=== PATIENT | female | born 1955 | race Caucasian/White ===

== ENCOUNTER 2025-08-03 22:08 | Emergency (ER) | payer MEDICARE, OTHER, SELFPAY ==
--- OUTSIDE RECORDS SUMMARY | 2025-08-02 21:14 | XMS_ITS | Continuity of Care Document ---
Author Organization [facility] Address Unknown Care Team Providers Care Television Station Manager Name Role Phone ANN MARIE RHODES MD Primary Care Physician [phone] Encounter [facility] [id number] Date(s): 08/02/25 - 08/02/25 [place] [id number] Encounter Diagnosis Incidental pulmonary nodule, > 3mm and < 8mm(Discharge Diagnosis) - 08/02/25 Uterine mass(Discharge Diagnosis) - 08/02/25 Anemia(Discharge Diagnosis) - 08/02/25 Abnormal vaginal bleeding in postmenopausal patient(Discharge Diagnosis) - 08/02/25 Discharge Disposition: Home Attending Physician: Kendra Baker DO Admitting Physician: Kendra Baker DO Encounter Type: Emergency Allergies, Adverse Reactions, Alerts SubstanceCriticalitySeverityReactionReaction SeverityStatusLatexUnable to assess criticalityUnknownActive Treatment Plan Extracted from:Title:Transition of care -uterine mass *EDAuthor:Mikael Stein MD Date:08/02/25 Impression and Plan Diagnosis Abnormal vaginal bleeding in postmenopausal patient (GAH50-KN N95.0, Discharge, Medical) Anemia (INU61-CR D64.9, Discharge, Medical) Uterine mass (GZN02-GC N85.8, Discharge, Medical) Incidental pulmonary nodule, > 3mm and < 8mm (INK90-NZ R91.1, Discharge, Medical) Plan Condition: Stable. Disposition: Discharged: Time 08/02/2025 20:49:00, to home. Patient was given the following educational materials: Abnormal Uterine Bleeding, Ttlw-gz-Xhgv, Uterine Bleeding After Menopause: What It Means, Anemia, Anemia, Uterine Bleeding After Menopause: WhatIt Means, Abnormal Uterine Bleeding, Sbvf-mm-Oopi. Follow up with: ; ANN MARIE RHODES Within 1 to 2 days Reviewed discharge care instruction. Continue with therapy as outlined by Dr. Stein. Hydrate yourself adequately. Avoid straining exertion. Contact PCP and outsole cementer for follow-up within the recommended time Return to ER for any worsening symptoms especially any symptom that concerns you. . Counseled: Patient, Family, Regarding diagnosis, Regarding diagnostic results, Regarding treatment plan, Regarding prescription, Patient indicated understanding of instructions. Extracted from:Title:ED Provider NoteAuthor:Kendra Bakerate:08/02/25 Orders: dicyclomine(Bentyl), 20 mg= 2 mL, Intramuscular, Once, MAGRU, (Completed) fentaNYL, 100 mcg= 2 mL, IV Push, Once, (Completed) iohexol(Omnipaque 350 100 ml), 350 mg= 100 mL, IV Push, Once, (Completed) ondansetron, 4 mg= 2 mL, IV Push, Once, MAGRU, (Completed) Sodium Chloride 0.9% intravenous solution 1,000 mL(sodium chloride 0.9%. 1,000 mL), 1000 mL, IV, (Ordered) CT Abdomen/Pelvis w/ Contrast, 08/02/25 18:29:00 EST Stat, epigastric and ruq pain, Allow Modification Per Radiologist, Transport Mode: Cart, 08/02/25 18:29:00 EST, No, (Ordered) ECG(EKG), 08/02/25 18:25:00 EST, Dizziness, Stop Date 08/02/25 18:25:00 EST, (InProcess) Functional Status 08/02/25 ED Note - Physician Patient: OTONIEL GONZALEZ Age: 70 years Sex: FEMALE : 1955 Associated Diagnoses: Abnormal vaginal bleeding in postmenopausal patient; Anemia; Uterine mass; Incidental pulmonary nodule, > 3mm and < 8mm Author: Mikael Stein MD Basic Information Time seen: Date & time 08/02/2025 20:30:00. History source: Patient. Arrival mode: Private vehicle. History limitation: None. Additional information: Chief Complaint from Nursing Triage Note : Chief Complaint 08/02/2025 16:21 EST Chief Complaint Patient arrives by EMS with c/o vaginal bleeding that started yesterday, started as spotting but worse today. Low abdominal cramps. Dizziness with position changes. Nausea. . History of Present Illness I have assumed care of the patient from Dr. Baker, who has discussed the clinical presentation, work-up, and ED course thus far. I have reviewed the patient???s medical record and ED course and agree with all aspects of care thus far. 70-year-old female, 0 para 0, postmenopausal, presented to ER for evaluation of vaginal bleeding. Had some spotting yesterday. Had more bleeding today by movement, describes moderate amount of clots. Some suprapubic pain earlier. Had some associated nausea, lightheaded with positional changes. Not known to be anemic. No other medication except for her glaucoma. No previous abdominal surgery. Additional my care at shift change, pending CT result I had seen the patient, discussed with the patient regarding finding on diagnostic workup, with herhusband and brother at bedside Blood work shows a hemoglobin of 9. The patient had blood pressure 120/80, heart rate 80, normal respiration with pulse oximetry of 100% on room air. Suggest this is more of a chronic process. CT abdomen and pelvis results reviewed. Finding discussed with patient. 7 mm nodule at the lingula.Uterine mass, ovarian complex noted. Likely the source of her bleeding. Finding discussed with patient regarding the relevance. We discussed regarding hospitalization, transfer, discharged home. Patient feels comfortable with going home, looks to be stable Will follow-up with PCP. Follow-up with gynecology. Return to ER criteria discussed. Patient and family indicate understanding, treatment plans and follow-up Health Status Allergies: Allergic Reactions (Selected) Unknown Latex- No reactions were documented.. Medications: (Selected) Inpatient Medications Ordered sodium chloride 0.9%. 1,000 mL: 1,000 mL/hr, IV Documented Medications Documented Rocklatan 0.02%-0.005% ophthalmic solution: 0 Refill(s) Timoptic in Ocudose 0.5% preservative-free ophthalmic solution: 0 Refill(s) acetaZOLAMIDE 250 mg oral tablet: 0 Refill(s) dorzolamide 2% ophthalmic solution: 0 Refill(s) fluoride 1.1% topical paste: 1 sim, Topical, Once a day (at bedtime), do not swallow, 51 gm, 0 Refill(s). Past Medical/ Family/ Social History Medical history: No active or resolved past medical history items have been selected or recorded.. Surgical history: No active procedure history items have been selected or recorded.. Family history: No family history items have been selected or recorded.. Social history: Social & Psychosocial Habits Alcohol 08/02/2025 Alcohol Use: Never Substance Use 08/02/2025 Substance use: Never Tobacco 08/02/2025 Smoking tobacco use: Never tobacco user Electronic Cigarette/Vaping 08/02/2025 Electronic Cigarette Use: Never . Problem list: No qualifying data available . Physical Examination Vital Signs Vital Signs 08/02/2025 20:28 EST Peripheral Pulse Rate 75 bpm 08/02/2025 20:28 EST Respiratory Rate 16 br/min SpO2 99 % 08/02/2025 20:28 EST Systolic Blood Pressure 115 mmHg Diastolic Blood Pressure 63 mmHg Mean Arterial Pressure Cuff 90 mmHg 08/02/2025 20:28 EST Mean Arterial Pressure, Cuff 80 mmHg 08/02/2025 20:00 EST Heart Rate Monitored 75 bpm Respiratory Rate 18 br/min SpO2 99 % 08/02/2025 20:00 EST Peripheral Pulse Rate 75 bpm 08/02/2025 19:30 EST Peripheral Pulse Rate 83 bpm Heart Rate Monitored 82 bpm Respiratory Rate 18 br/min SpO2 98 % 08/02/2025 18:58 EST Heart Rate Monitored 74 bpm Respiratory Rate 18 br/min SpO2 99 % 08/02/2025 18:58 EST Peripheral Pulse Rate 75 bpm 08/02/2025 18:22 EST Peripheral Pulse Rate 74 bpm Respiratory Rate 18 br/min SpO2 100 % Oxygen Therapy Room air 08/02/2025 16:21 EST Temperature Oral 36.5 DegC Peripheral Pulse Rate 75 bpm Respiratory Rate 18 br/min Systolic Blood Pressure 132 mmHg HI Diastolic Blood Pressure 94 mmHg HI Mean Arterial Pressure, Cuff 107 mmHg HI SpO2 99 % Oxygen Therapy Room air . Measurements 08/02/2025 16:21 EST Height 158 cm Weight 72.57 kg Weight Dosing 72.570 kg Body Mass Index Measured 29.07 kg/m2 . Basic Oxygen Information 08/02/2025 20:28 EST SpO2 99 % 08/02/2025 20:00 EST SpO2 99 % 08/02/2025 19:30 EST SpO2 98 % 08/02/2025 18:58 EST SpO2 99 % 08/02/2025 18:22 EST SpO2 100 % Oxygen Therapy Room air 08/02/2025 16:21 EST SpO2 99 % Oxygen Therapy Room air . Impression and Plan Diagnosis Abnormal vaginal bleeding in postmenopausal patient (LHU43-WA N95.0, Discharge, Medical) Anemia (YMV78-ZP D64.9, Discharge, Medical) Uterine mass (NET17-XN N85.8, Discharge, Medical) Incidental pulmonary nodule, > 3mm and < 8mm (JGJ33-OD R91.1, Discharge, Medical) Plan Condition: Stable. Disposition: Discharged: Time 08/02/2025 20:49:00, to home. Patient was given the following educational materials: Abnormal Uterine Bleeding, Cpsg-eu-Cblb, Uterine Bleeding After Menopause: What It Means, Anemia, Anemia, Uterine Bleeding After Menopause: WhatIt Means, Abnormal Uterine Bleeding, Pytw-dv-Gqhc. Follow up with: ; ANN MARIE RHODES Within 1 to 2 days Reviewed discharge care instruction. Continue with therapy as outlined by Dr. Stein. Hydrate yourself adequately. Avoid straining exertion. Contact PCP and outsole cementer for follow-up within the recommended time Return to ER for any worsening symptoms especially any symptom that concerns you. . Counseled: Patient, Family, Regarding diagnosis, Regarding diagnostic results, Regarding treatment plan, Regarding prescription, Patient indicated understanding of instructions. 08/02/25 History of Fall in Last 3 Months MorseNoFamily Member Travel HistoryNo recent travelRecent Travel HistoryNo recent travelOther exposure to Infectious Disease No Known Exposure/Symptoms Medications acetaZOLAMIDE 250 mg oral tablet 0 Refill(s) Start Date: 08/02/25 Status: Ordered Medication Dispense Status: Completed Total Allowed Fills: 1 Fills Dispensed: 0 dorzolamide 2% ophthalmic solution 0 Refill(s) Start Date: 08/02/25 Status: Ordered Medication Dispense Status: Completed Total Allowed Fills: 1 Fills Dispensed: 0 fluoride 1.1% topical paste 1 sim, Topical, Once a day (at bedtime), Instructions: do not swallow, # 51 gm, 0 Refill(s) Start Date: 08/02/25 Status: Ordered Medication Dispense Status: Completed Quantity: 51.0 Unit: g Total Allowed Fills: 1 Fills Dispensed: 0 Rocklatan 0.02%-0.005% ophthalmic solution 0 Refill(s) Start Date: 08/02/25 Status: Ordered Medication Dispense Status: Completed Total Allowed Fills: 1 Fills Dispensed: 0 Timoptic in Ocudose 0.5% preservative-free ophthalmic solution 0 Refill(s) Start Date: 08/02/25 Status: Ordered Medication Dispense Status: Completed Total Allowed Fills: 1 Fills Dispensed: 0 Mental Status 08/02/25 Level of ConsciousnessAlert Results Laboratory List NameDateExtra Blue08/02/25Extra Red08/02/25.Auto Diff CBC w/ Auto Diff 08/02/25Comprehensive Metabolic Panel Fwrhgqgg79/6/25Lipase Level08/02/25PT/INR 08/02/25PTT110/02/24Troponin I High Loveznzjygv66/6/25 Most recent to oldest [Reference Range]:12Tube CollectedYes *NA* (08/02/25 5:21 PM)Yes *NA* (08/02/25 5:21 PM)Creatinine Level [0.60-1.30 mg/dL]0.93 mg/dL (08/02/25 5:20 PM)INR [0.91-1.11]1.08 (08/02/25 5:20 PM)Albumin Level [3.5-5.0 gm/dL]3.5 gm/dL (08/02/25 5:20 PM)Alk Phos [32-91 IU/L]53 IU/L (08/02/25 5:20 PM)Bili Total [0.3-1.2 mg/dL]0.7 mg/dL (08/02/25 5:20 PM)BUN [8-26 mg/dL]21 mg/dL (08/02/25 5:20 PM)Chloride Level [101-111 mmol/L]107 mmol/L (08/02/25 5:20 PM)CO2 [21-32 mmol/L]20 mmol/L *LOW* (08/02/25 5:20 PM)Glucose Level [74.0-118.0 mg/dL]145.0 mg/dL *HI* (08/02/25 5:20 PM)Hct [33.7-40.4 %]27.6 % *LOW* (08/02/25 5:20 PM)Hgb [11.3-15.9 gm/dL]9.0 gm/dL *LOW* (08/02/25 5:20 PM)Lipase Level [22.0-51.0 IU/L]31.0 IU/L (08/02/25 5:20 PM)MCH [24-34 pg]28 pg (08/02/25 5:20 PM)MCHC [26-37 gm/dL]33 gm/dL (08/02/25 5:20 PM)MCV [81-100 fL]85 fL (08/02/25 5:20 PM)MPV [6.3-10.2 fL]8.2 fL (08/02/25 5:20 PM)Yytgupanml693 mOsm/L *NA* (08/02/25:20 PM)Platelet [138-427 x10^3/mcL]366 x10^3/mcL (08/02/25 5:20 PM)Potassium Level [3.6-5.1 mmol/L]4.0 mmol/L (08/02/25 5:20 PM)PT [9.7-11.8 second(s)]11.4 second(s) (08/02/25 5:20 PM)PTT [25-35 second(s)]27 second(s) (08/02/25 5:20 PM)RBC [3.70-5.30 x10^6/mcL]3.23 x10^6/mcL *LOW* (08/02/25 5:20 PM)RDW [11.5-15.0 %]16.4 % *HI* (08/02/25:20 PM)Sodium Level [136.0-144.0 mmol/L]137.0 mmol/L (08/02/25 5:20 PM)Protein Total [6.5-8.1 gm/dL]7.1 gm/dL (08/02/25 5:20 PM)WBC [3.5-10.5 x10^3/mcL]16.4 x10^3/mcL1 *HI* (08/02/25 5:20 PM)Anion Gap [5.0-19.0 mmol/L]14.0 mmol/L (08/02/25 5:20 PM)Calcium Level [8.9-10.3 mg/dL]9.0 mg/dL (08/02/25 5:20 PM)ALT/SGPT [14.0-54.0 IU/L]9.0 IU/L *LOW* (08/02/25 5:20 PM)AST/SGOT [15-41 IU/L]21 IU/L (08/02/25 5:20 PM)Auto Eos % [0.9-4.0 %]0.5 % *LOW* (08/02/25 5:20 PM)Auto Lymph % [14-48 %]11 % *LOW* (08/02/25 5:20 PM)Auto Neut % [44-88 %]85 % (08/02/25 5:20 PM)Eos Abs# [0.0-0.4 x10^3/mcL]0.1 x10^3/mcL (08/02/25 5:20 PM)Lymph Abs# [1.3-2.9 x10^3/mcL]1.9 x10^3/mcL (08/02/25 5:20 PM)[place] Abs# [0.0-0.8 x10^3/mcL]0.4 x10^3/mcL (08/02/25 5:20 PM)Auto Baso % [0.2-2.0 %]0.7 % (08/02/25 5:20 PM)Auto [place] % [1-12 %]2 % (08/02/25 5:20 PM)Baso Abs# [0.0-0.2 x10^3/mcL]0.1 x10^3/mcL (08/02/25 5:20 PM)Neut Abs# [1.5-9.2 x10^3/mcL]14.0 x10^3/mcL *HI* (08/02/25 5:20 PM)BUN/Creat Ratio [4.6-16.2]22.5 *HI* (08/02/25 5:20 PM)Globulin [1.5-4.3 gm/dL]3.6 gm/dL (08/02/25 5:20 PM)A/G Ratio [1.4-2.6]0.9 *LOW* (08/02/25 5:20 PM)Troponin I High Sensitivity [<=15.0 pg/mL]5.2 pg/mL (08/02/25 5:20 PM)eGFR AA>60 mL/min/1.73m2 *NA* (08/02/25 5:20 PM)eGFR Non AA60 mL/min/1.73m2 *NA* (08/02/25 5:20 PM) 1Result Comment: Slide Reviewed Radiology Reports * Exam Date TimeProcedurePerforming NxqhvbzbSpxydl77/6/25 7:19 PMCT Abdomen/Pelvis w/ ContrastAuth (Verified) Notes: (CT Abdomen/Pelvis w/ Contrast) Reason For Exam: epigastric and ruq pain REPORT EXAMINATION: CT Abdomen/Pelvis w/ Contrast INDICATION: epigastric and ruq pain TECHNIQUE: CT imaging of the abdomen and pelvis. Axial and reformatted coronal and sagittal CT images are reviewed. Amount and type of contrast administered as documented in the patient's chart/medical record. This exam was performed according to our departmental dose-optimization program which includes automated exposure control, adjustment of the mA and/or kV according to patient size and/or use of iterative reconstruction technique. COMPARISON: None. FINDINGS: CARDIOVASCULAR: The visualized heart and pericardium demonstrate no acute abnormality. The aorta and branch vessels are patent and normal in caliber. LUNG BASES: There are no focal consolidations or pleural effusions. 7 mm pulmonary nodule noted in the lingula. HEPATOBILIARY: There is diffuse fatty infiltration of the liver. There are no focal hepatic lesions. There is no biliary ductal dilatation. The gallbladder is unremarkable. SPLEEN: Unremarkable. PANCREAS: Unremarkable ADRENAL GLANDS: Unremarkable. KIDNEYS: Kidneys are normal in size and contour and demonstrate symmetric enhancement. There is no hydronephrosis. ABDOMINAL NODES: No adenopathy is appreciated. PELVIC ORGANS: The urinary bladder is unremarkable. There is a complex uterine mass measuring measuring 9.6 x 5.8 x 5.2 cm. There is a 3.5 x 3.1 cm mass/lymph node in the right hemipelvis. PERITONEUM/MESENTERY/BOWEL: Moderate hiatal hernia.. There is no bowel obstruction. There is no bowel wall thickening. The appendix is normal. Diverticulosis without evidence of diverticulitis. BONES/SOFT TISSUES: There is no acute osseous or soft tissue abnormality. IMPRESSION: Complex uterine mass concerning for malignancy. Mass/enlarged lymph node noted in the right hemipelvis concerning for metastatic disease. 7 mm pulmonary nodule noted in the lingula. Metastatic disease cannot be excluded. Recommend gynecologic consultation and recommend further evaluation with pelvic MRI. PET/CT may also be obtained. Final Dictated by: Cuco Rivas MD Dictated DT/TM: 08/02/25 8:22 Signed (Electronic Signature): Cuco Rivas MD 08/02/25 8:27 pm Technologist: LT CHAPITO * Exam Date TimeProcedurePerforming CxdwhabdZmbcxk44/6/25 6:23 PMUS Pelvis Non- OB LimitedAuth (Verified) Notes: (US Pelvis Non-OB Limited) Reason For Exam: Pelvic Pain REPORT EXAM: US Pelvis Non-OB Limited HISTORY: Pelvic Pain COMPARISON: None. TECHNIQUE: Transabdominal imaging of the pelvis was performed FINDINGS: Uterus measures 1.6 x 5.8 x 5.5 cm and is heterogeneous. Endometrial stripe is not discernible. Right ovary is not visualized. Left ovary measures 3.6 x 2.9 x 3.3 cm. There is normal arterial and venous flow left ovary. IMPRESSION: Heterogeneous enlarged uterus, likely fibromatous. Endometrial stripe not identified. Final Dictated by: Cat Fields MD Dictated DT/TM: 08/02/25 6:49 Signed (Electronic Signature): Cat Fields MD 08/02/25 6:52 pm Technologist: MACRINA Vital Signs Most recent to oldest [Reference Range]:[id number] cm (08/02/25 4:21 PM)Ydhhjd25.57 kg (08/02/25 4:21 PM)Weight Xvowqq61.570 kg (08/02/25 4:21 PM)Body Mass Index Wwshwdge83.07 kg/m2 (08/02/25 4:21 PM)Temperature Oral [35.8-37.3 DegC]36.5 DegC (08/02/25 4:21 PM)Peripheral Pulse Rate [60-100 bpm]75 bpm (08/02/25 8:28 PM)75 bpm (08/02/25 8:00 PM)83 bpm (08/02/25 7:30 PM)Heart Rate Monitored [60-100 bpm]75 bpm (08/02/25 8:00 PM)82 bpm (08/02/25 7:30 PM)74 bpm (08/02/25 6:58 PM)Respiratory Rate [14-20 br/min]16 br/min (08/02/25 8:28 PM)18 br/min (08/02/25 8:00 PM)18 br/min (08/02/25 7:30 PM)Blood Pressure [90-120/60-80 mmHg]115/63mmHg (08/02/25 8:28 PM)132/94mmHg *HI* (08/02/25 4:21 PM)Mean Arterial Pressure, Cuff [65-100 mmHg]80 mmHg (08/02/25 8:28 PM)107 mmHg *HI* (08/02/25 4:21 PM)Mean Arterial Pressure Cuff90 mmHg (08/02/25 8:28 PM)SpO2 [92-100 %]99 % (08/02/25 8:28 PM)99 % (08/02/25 8:00 PM)98 % (08/02/25 7:30 PM)Oxygen TherapyRoom air (08/02/25 6:22 PM)Room air (08/02/25 4:21 PM) Social History Social History TypeResponseTobaccoNever tobacco user Tobacco Use:. Sex FemaleSex RepresentationFemale (finding) Hospital Discharge Instructions Patient Education 08/02/2025 19:49:38 Anemia Anemia Anemia is a condition in which there are not enough red blood cells or hemoglobin in the blood. Hemoglobin is a substance in red blood cells that carries oxygen. When you do not have enough red blood cells or hemoglobin (are anemic), your body cannot get enoughoxygen, and your organs may not work properly. As a result, you may feel very tired or have other problems. What are the causes? Common causes of anemia include: ??? Excessive bleeding. Anemia can be caused by excessive bleeding inside or outside the body, including bleeding from the intestines or from heavy menstrual periods in females. ??? Poor nutrition. ??? Long-lasting (chronic) kidney, thyroid, and liver disease. ??? Bone marrow disorders, spleen problems, and blood disorders. ??? Cancer and treatments for cancer. ??? Human immunodeficiency virus (HIV) and acquired immunodeficiency syndrome (AIDS). ??? Infections, medicines, and autoimmune disorders that destroy red blood cells. What are the signs or symptoms? Symptoms of this condition include: ??? Minor weakness. ??? Dizziness. ??? Headache, or difficulties concentrating and sleeping. ??? Heartbeats that feel irregular or faster than normal (palpitations). ??? Shortness of breath, especially with exercise. ??? Pale skin, lips, and nails, or cold hands and feet. ??? Upset stomach (indigestion) and nausea. Symptoms may occur suddenly or develop slowly. If your anemia is mild, you may not have symptoms. How is this diagnosed? This condition is diagnosed based on blood tests, your medical history, and a physical exam. In some cases, a test may be needed in which cells are removed from the soft tissue inside of a bone and looked at under a microscope (bone marrow biopsy). Your health care provider may also check your stool (feces) for blood and may do more testing to look for the cause of your bleeding. Other tests may include: ??? Imaging tests, such as a CT scan or MRI. ??? A procedure to see inside your esophagus and stomach (endoscopy). The esophagus is the part of the body that moves food from your mouth to your stomach. ??? A procedure to see inside your colon and rectum (colonoscopy). How is this treated? Treatment for this condition depends on the cause. If you continue to lose a lot of blood, you may need to be treated at a hospital. Treatment may include: ??? Taking supplements of iron, vitamin B12, or folic acid. ??? Taking a hormone medicine (erythropoietin) that can help to stimulate red blood cell growth. ??? Receiving donated blood through an IV (blood transfusion). This may be needed if you lose a lotof blood. ??? Making changes to your diet. ??? Having surgery to remove your spleen. Follow these instructions at home: ??? Take mmxk-fft-jpqbdwp and prescription medicines only as told by your health care provider. ??? Take supplements only as told by your health care provider. ??? Follow any diet instructions that you were given by your health care provider. ??? Keep all follow-up visits. Your health care provider will want to recheck your blood tests. Contact a health care provider if: ??? You develop new bleeding anywhere in the body. ??? You are very weak. Get help right away if: ??? You are short of breath. ??? You have pain in your abdomen or chest. ??? You are dizzy or feel faint. ??? You have trouble concentrating. ??? You have bloody stools, black stools, or tarry stools. ??? You vomit repeatedly or you vomit up blood. These symptoms may be an emergency. Get help right away. Call 911. ??? Do not wait to see if the symptoms will go away. ??? Do not drive yourself to the hospital. Summary ??? Anemia is a condition in which you do not have enough red blood cells or enough of a substance in your red blood cells that carries oxygen. ??? Symptoms may occur suddenly or develop slowly. ??? If your anemia is mild, you may not have symptoms. ??? This condition is diagnosed with blood tests, a medical history, and a physical exam. Other tests may be needed. ??? Treatment for this condition depends on the cause of the anemia. This information is not intended to replace advice given to you by your health care provider. Make sure you discuss any questions you have with your health care provider. Document Revised: 12/07/2022 Document Reviewed: 12/07/2022 [employer] Patient Education ?? 2024 [employer]. 08/02/2025 19:49:38 Uterine Bleeding After Menopause: What It Means Uterine Bleeding After Menopause: What It Means Menopause is the end of a female's fertile years. After menopause, your ovaries can no longer release an egg. You'll no longer be able to get , and you'll no longer get a period. Any type of bleeding after menopause should be checked by a health care provider, as this is not normal. Treatment will depend on the cause of the bleeding. What can cause bleeding after menopause? Your provider may do tests to find out why you're bleeding. You may have bleeding if: ??? You take hormones to treat the symptoms of menopause. ??? The lining of your uterus thins as a result of low estrogen. ??? The lining of your uterus thickens as a result of too much estrogen. ??? You have cancer in the uterus. ??? You have growths in the uterus, such as: ??? Polyps. ??? Fibroids. Follow these instructions at home: ??? Pay attention to any changes in your symptoms. Let your provider know about them. ??? If told by your provider: ??? Avoid using tampons and douches. ??? Get regular pelvic exams, including Pap tests. ??? Take iron supplements. ??? Change your pads regularly. ??? Take your medicines only as told. Contact a health care provider if: ??? You have pain in your belly. ??? You have headaches. ??? You have a fever or chills. ??? You feel faint or dizzy. Get help right away if: ??? You pass large blood clots. ??? You have heavy bleeding that needs more than 1 pad an hour and you've never had this before. This information is not intended to replace advice given to you by your health care provider. Make sure you discuss any questions you have with your health care provider. Document Revised: 07/25/2024 Document Reviewed: 05/22/2024 [employer] Patient Education ?? 2024 [employer]. 08/02/2025 19:49:38 Abnormal Uterine Bleeding, Crbt-kh-Qcmv Abnormal Uterine Bleeding Abnormal uterine bleeding means bleeding more than normal from your womb (uterus). It can include: ??? Bleeding after sex. ??? Bleeding between monthly (menstrual) periods. ??? Bleeding that is heavier than normal. ??? Monthly periods that last longer than normal. ??? Bleeding after you have stopped having your monthly period (menopause). You should see a doctor for any kind of bleeding that is not normal. Treatment depends on the causeof your bleeding and how much you bleed. Follow these instructions at home: Medicines ??? Take gcvo-ypp-zdenrpo and prescription medicines only as told by your doctor. ??? Ask your doctor about: ??? Taking medicines such as aspirin and ibuprofen. Do not take these medicines unless your doctor tells you to take them. ??? Taking whgf-unz-lstqkdx medicines, vitamins, herbs, and supplements. ??? You may be given iron pills. Take them as told by your doctor. Managing constipation If you take iron pills, you may need to take these actions to prevent or treat trouble pooping (constipation): ??? Drink enough fluid to keep your pee (urine) pale yellow. ??? Take ecvb-fco-kvnpqaq or prescription medicines. ??? Eat foods that are high in fiber. These include beans, whole grains, and fresh fruits and vegetables. ??? Limit foods that are high in fat and sugar. These include fried or sweet foods. Activity Change your activity to decrease bleeding if you need to change your sanitary pad more than one time every 2 hours: ??? Lie in bed with your feet raised (elevated). ??? Place a cold pack on your lower belly. ??? Rest as much as you are able until the bleeding stops or slows down. General instructions ??? Do not use tampons, douche, or have sex until your doctor says these things are okay. ??? Change your pads often. ??? Get regular exams. These include: ??? Pelvic exams. ??? Screenings for cancer of the cervix. ??? It is up to you to get the results of any tests that are done. Ask how to get your results whenthey are ready. ??? Watch for any changes in your bleeding. For 2 months, write down: ??? When your monthly period starts. ??? When your monthly period ends. ??? When you get any abnormal bleeding from your vagina. ??? What problems you notice. ??? Keep all follow-up visits. Contact a doctor if: ??? The bleeding lasts more than one week. ??? You feel dizzy at times. ??? You feel like you may vomit (nausea). ??? You vomit. ??? You feel light-headed or weak. ??? Your symptoms get worse. Get help right away if: ??? You faint. ??? You have to change pads every hour. ??? You have pain in your belly. ??? You have a fever or chills. ??? You get sweaty or weak. ??? You pass large blood clots from your vagina. These symptoms may be an emergency. Get help right away. Call your local emergency services ([address] [place] ??? Do not wait to see if the symptoms will go away. ??? Do not drive yourself to the hospital. Summary ??? Abnormal uterine bleeding means bleeding more than normal from your womb (uterus). ??? Any kind of bleeding that is not normal should be checked by a doctor. ??? Treatment depends on the cause of your bleeding and how much you bleed. ??? Get help right away if you faint, you have to change pads every hour, or you pass large blood clots from your vagina. This information is not intended to replace advice given to you by your health care provider. Make sure you discuss any questions you have with your health care provider. Document Revised: 01/13/2022 Document Reviewed: 01/13/2022 [employer] Patient Education ?? 2024 [employer] Follow Up Care 08/02/2025 16:18:46 With:ANN MARIE RHODES Address: [address] [place] [address] [facility] (1) When:1 to 2 days Comments:Reviewed discharge care instruction.Continue with therapy as outlined by Dr. Stein.Hydrate yourself adequately.Avoid straining exertion.Contact PCP and outsole cementer for follow-up within the recommended timeReturn to ER for any worsening symptoms especially any symptom that concerns you. Physician Emergency department Note * Mikael Stein MD: MODIFY, SIGN, VERIFY, PERFORM Event Display: ED Note - Physician Authored Date: Patient: OTONIEL GONZALEZ Age: 70 years Sex: FEMALE : 1955 Associated Diagnoses: Abnormal vaginal bleeding in postmenopausal patient; Anemia; Uterine mass; Incidental pulmonary nodule, > 3mm and < 8mm Author: Mikael Stein MD Basic Information Time seen: Date & time 08/02/2025 20:30:00. History source: Patient. Arrival mode: Private vehicle. History limitation: None. Additional information: Chief Complaint from Nursing Triage Note : Chief Complaint 08/02/2025 16:21 EST Chief Complaint Patient arrives by EMS with c/o vaginal bleeding that started yesterday, started as spotting but worse today. Low abdominal cramps. Dizziness with position changes. Nausea. . History of Present Illness I have assumed care of the patient from Dr. Baker, who has discussed the clinical presentation, work-up, and ED course thus far. I have reviewed the patient???s medical record and ED course and agree with all aspects of care thus far. 70-year-old female, 0 para 0, postmenopausal, presented to ER for evaluation of vaginal bleeding. Had some spotting yesterday. Had more bleeding today by movement, describes moderate amount of clots. Some suprapubic pain earlier. Had some associated nausea, lightheaded with positional changes. Not known to be anemic. No other medication except for her glaucoma. No previous abdominal surgery. Additional my care at shift change, pending CT result I had seen the patient, discussed with the patient regarding finding on diagnostic workup, with herhusband and brother at bedside Blood work shows a hemoglobin of 9. The patient had blood pressure 120/80, heart rate 80, normal respiration with pulse oximetry of 100% on room air. Suggest this is more of a chronic process. CT abdomen and pelvis results reviewed. Finding discussed with patient. 7 mm nodule at the lingula.Uterine mass, ovarian complex noted. Likely the source of her bleeding. Finding discussed with patient regarding the relevance. We discussed regarding hospitalization, transfer, discharged home. Patient feels comfortable with going home, looks to be stable Will follow-up with PCP. Follow-up with gynecology. Return to ER criteria discussed. Patient and family indicate understanding, treatment plans and follow-up Health Status Allergies: Allergic Reactions (Selected) Unknown Latex- No reactions were documented.. Medications: (Selected) Inpatient Medications Ordered sodium chloride 0.9%. 1,000 mL: 1,000 mL/hr, IV Documented Medications Documented Rocklatan 0.02%-0.005% ophthalmic solution: 0 Refill(s) Timoptic in Ocudose 0.5% preservative-free ophthalmic solution: 0 Refill(s) acetaZOLAMIDE 250 mg oral tablet: 0 Refill(s) dorzolamide 2% ophthalmic solution: 0 Refill(s) fluoride 1.1% topical paste: 1 sim, Topical, Once a day (at bedtime), do not swallow, 51 gm, 0 Refill(s). Past Medical/ Family/ Social History Medical history: No active or resolved past medical history items have been selected or recorded.. Surgical history: No active procedure history items have been selected or recorded.. Family history: No family history items have been selected or recorded.. Social history: Social & Psychosocial Habits Alcohol 08/02/2025 Alcohol Use: Never Substance Use 08/02/2025 Substance use: Never Tobacco 08/02/2025 Smoking tobacco use: Never tobacco user Electronic Cigarette/Vaping 08/02/2025 Electronic Cigarette Use: Never . Problem list: No qualifying data available . Physical Examination Vital Signs Vital Signs 08/02/2025 20:28 EST Peripheral Pulse Rate 75 bpm 08/02/2025 20:28 EST Respiratory Rate 16 br/min SpO2 99 % 08/02/2025 20:28 EST Systolic Blood Pressure 115 mmHg Diastolic Blood Pressure 63 mmHg Mean Arterial Pressure Cuff 90 mmHg 08/02/2025 20:28 EST Mean Arterial Pressure, Cuff 80 mmHg 08/02/2025 20:00 EST Heart Rate Monitored 75 bpm Respiratory Rate 18 br/min SpO2 99 % 08/02/2025 20:00 EST Peripheral Pulse Rate 75 bpm 08/02/2025 19:30 EST Peripheral Pulse Rate 83 bpm Heart Rate Monitored 82 bpm Respiratory Rate 18 br/min SpO2 98 % 08/02/2025 18:58 EST Heart Rate Monitored 74 bpm Respiratory Rate 18 br/min SpO2 99 % 08/02/2025 18:58 EST Peripheral Pulse Rate 75 bpm 08/02/2025 18:22 EST Peripheral Pulse Rate 74 bpm Respiratory Rate 18 br/min SpO2 100 % Oxygen Therapy Room air 08/02/2025 16:21 EST Temperature Oral 36.5 DegC Peripheral Pulse Rate 75 bpm Respiratory Rate 18 br/min Systolic Blood Pressure 132 mmHg HI Diastolic Blood Pressure 94 mmHg HI Mean Arterial Pressure, Cuff 107 mmHg HI SpO2 99 % Oxygen Therapy Room air . Measurements 08/02/2025 16:21 EST Height 158 cm Weight 72.57 kg Weight Dosing 72.570 kg Body Mass Index Measured 29.07 kg/m2 . Basic Oxygen Information 08/02/2025 20:28 EST SpO2 99 % 08/02/2025 20:00 EST SpO2 99 % 08/02/2025 19:30 EST SpO2 98 % 08/02/2025 18:58 EST SpO2 99 % 08/02/2025 18:22 EST SpO2 100 % Oxygen Therapy Room air 08/02/2025 16:21 EST SpO2 99 % Oxygen Therapy Room air . Impression and Plan Diagnosis Abnormal vaginal bleeding in postmenopausal patient ([id number]-EH N95.0, Discharge, Medical) Anemia (VQD11-SH D64.9, Discharge, Medical) Uterine mass (DVM18-CV N85.8, Discharge, Medical) Incidental pulmonary nodule, > 3mm and < 8mm (NXO17-XG R91.1, Discharge, Medical) Plan Condition: Stable. Disposition: Discharged: Time 08/02/2025 20:49:00, to home. Patient was given the following educational materials: Abnormal Uterine Bleeding, Xdmk-jk-[id number], Uterine Bleeding After Menopause: What It Means, Anemia, Anemia, Uterine Bleeding After Menopause: WhatIt Means, Abnormal Uterine Bleeding, Pnlu-mv-Kjqs. Follow up with: ; ANN MARIE RHODES Within 1 to 2 days Reviewed discharge care instruction. Continue with therapy as outlined by Dr. Stein. Hydrate yourself adequately. Avoid straining exertion. Contact PCP and outsole cementer for follow-up within the recommended time Return to ER for any worsening symptoms especially any symptom that concerns you. . Counseled: Patient, Family, Regarding diagnosis, Regarding diagnostic results, Regarding treatment plan, Regarding prescription, Patient indicated understanding of instructions. [Electronically Signed on: 08/02/2025 20:56 EST] Mikael Stein MD [Verified on: 08/02/2025 20:56 EST] Mikael Stein MD * Kendra Baker DO: PERFORM Event Display: ED Note - Physician Authored Date: [id number] OTONIEL GONZALEZ :1955 Age:70 years Sex:FEMALE Registration Date:08/02/2025 Primary Care Physician: Haresh Lucero Basic Information Time Seen: Kendra Baker DO ??08/02/2025 16:55 Chief Complaint Patient arrives by EMS with c/o vaginal bleeding that started yesterday, started as spotting but worse today. Low abdominal cramps. Dizziness with position changes. Nausea. History Of Present Illness: 70 years old female presenting to the ED with a history of??vaginal bleeding. ??Patient states thatshe went to the bathroom when she started having some vaginal bleeding with some??blood clots and the bleeding.?? Patient's last menstrual period was about 8 years ago.?? Patient started having thesevaginal bleeding today associated with lower abdominal cramping.?? Patient also started having lightheadedness and had to come to the ED for evaluation. ?? Patient is not on anticoagulants. ??No history of coagulopathy.?? Patient denies any??chest pain,??palpitations,??headache,??or shortness of breath.?? No prior history of similar symptoms. Review of Systems: General: [Alert, oriented, no acute distress] Constitutional: [No fevers, chills, sweats] Eye: [No recent visual problems] ENT: [No ear pain, nasal congestion, sore throat] Neck: [no pain or stiffness] Respiratory: [No shortness of breath, cough] Cardiovascular: [No Chest pain, palpitations, syncope] Gastrointestinal: [No nausea, vomiting, diarrhea] Genitourinary: [+]??Vaginal bleeding] Lamonte/Lymph: [Negative for bruising tendency, swollen lymph glands] Endocrine: [Negative for excessive thirst, excessive hunger] Musculoskeletal: [No back pain, neck pain, joint pain, muscle pain, decreased range of motion] Integumentary: [No rash, pruritus, abrasions] Neurologic: [Alert & oriented X 4] Psychiatric: [No anxiety, depression] Physical Exam Vitals & Measurements T:??36.5?C??(Oral)?? HR:??74??(Monitored)?? RR:??18?? BP:??132/94?? SpO2:??99%?? HT:??158??cm?? WT:??72.57??kg?? BMI:??29.07?? Pain Score:??5?? O2 Therapy:??Room air?? General Acutely ill looking, in moderate painful distress Head/eye - NCAAT, no periorbital ecchymosis, conjunctival erythema, eye discharge, or blood in the anterior chamber. No scleral icterus ENT -No nose-bleeding, TMI, no ear discharge, no mastoid ecchymosis Neck -supple, no swelling, do lymphadenopathy, no JVD or bruits. trachea is central. no crepitus Chest -No deformities, crackles, or paradoxical breathing movements Resp-No wheezing, rales, rhonchi, or abnormal BS CVS -S1/S2 normal. No MRG, distal pulses intact and unremarkable Abdomen [+]??Moderate??tenderness. -Non distended no organomegaly, no visible pulsations or peristalsis. No rigidity, guarding or rebound. No Sweeney's, McBurney's, or Rovsing's sign Back -No CVA tenderness, spinal deformity or tenderness. ?? Ext -No deformity, tenderness, joint swelling, warmth, erythema. No crepitus. distal pulses intact. No sensory or motor deficits Neuro -No facial droops, hand drift, slurred speech, focal weakness or sensory deficits. CN 2-12 grossly intact. Reflexes intact.?? Skin -No rashes, cyanosis, discoloration,?? Medical Decision Makin-year-old female presenting to the ED with a history of vaginal??bleeding??associated with lightheadedness.?? Last menstrual period was 8 years ago. ?? Physical examination significant for an acutely ill looking female in moderate painful distress. ??Abdominal examination??significant for mild to moderate tenderness but no obvious rigidity/rebound/guarding. ?? Patient is scheduled for??pelvic ultrasound, pain medications,??IV fluid,??and laboratory evaluations.?? An EKG was done which is unremarkable for any significant ischemic concerns. ?? 6:30 PM Patient declined transvaginal ultrasound. ??Pelvic ultrasound was done.?? Patient still complainingof pain at this point and is given??IV fentanyl with??Zofran.?? Patient is also scheduled for CT scan of the abdomen and pelvis ?? 7:00 PM Patient care signed out to the nighttime physician. Critical Care Time Spent Critical care time for this patient in this encounter is 40??minutes. This includes, but is not limited to, time for continuous monitoring, including bedside monitoring, evaluations and frequent evaluations, as well as consults and discussions with family and other health care providers Assessment/Plan Orders: dicyclomine(Bentyl), 20 mg= 2 mL, Intramuscular, Once, MAGRU, (Completed) fentaNYL, 100 mcg= 2 mL, IV Push, Once, (Completed) iohexol(Omnipaque 350 100 ml), 350 mg= 100 mL, IV Push, Once, (Completed) ondansetron, 4 mg= 2 mL, IV Push, Once, YOLANDA, (Completed) Sodium Chloride 0.9% intravenous solution 1,000 mL(sodium chloride 0.9%. 1,000 mL), 1000 mL, IV, (Ordered) CT Abdomen/Pelvis w/ Contrast, 08/02/25 18:29:00 EST Stat, epigastric and ruq pain, Allow Modification Per Radiologist, Transport Mode: Cart, 08/02/25 18:29:00 EST, No, (Ordered) ECG(EKG), 08/02/25 18:25:00 EST, Dizziness, Stop Date 08/02/25 18:25:00 EST, (InProcess) Medication Reconciliation Unchanged acetaZOLAMIDE (acetaZOLAMIDE 250 mg oral tablet) ?? dorzolamide ophthalmic (dorzolamide 2% ophthalmic solution) ?? fluoride topical (fluoride 1.1% topical paste)1 sim Topical (on the skin) once a day (at bedtime). do not swallow. ?? latanoprost-netarsudil ophthalmic (Rocklatan 0.02%-0.005% ophthalmic solution) ?? timolol ophthalmic (Timoptic in Ocudose 0.5% preservative-free ophthalmic solution) Medication Administration Given Sodium Chloride 0.9% intravenous solution 1,000 mL(sodium chloride 0.9%. 1,000 mL), IV dicyclomine(Bentyl), Intramuscular fentaNYL, IV Push iohexol(Omnipaque 350 100 ml), IV Push ondansetron, IV Push Allergies Latex (Unknown) Social History Alcohol Alcohol Use:Never Electronic Cigarette/Vaping Electronic Cigarette Use:Never Substance Use Substance use:Never Tobacco Smoking tobacco use:Never tobacco user Diagnostic Results US Pelvis Non-OB Limited 08/02/2025 18:55 EST US Pelvis Non-OB Limited ?? 08/02/25 18:52:59 IMPRESSION: ?? Heterogeneous enlarged uterus, likely fibromatous. Endometrial stripe not identified. ?? Signed By: Cat Fields MD ECG Normal sinus rhythm,??LAD, right ventricular??conduction delay Ventricular rate 70 IL interval 152 QRS duration 88 QT/QTc 419/440 No STEMI EKG interpreted by me pending evaluation by the performing artist Lab Results Routine Chemistry?? LATEST RESULTS?? Sodium Level?? 08/02/25 17:20?? 137.0?? Potassium Level?? 08/02/25 17:20?? 4.0?? Chloride Level?? 08/02/25 17:20?? 107?? CO2?? 08/02/25 17:20?? 20 ??Low?? Anion Gap?? 08/02/25 17:20?? 14.0?? Glucose Level?? 08/02/25 17:20?? 145.0 ??High?? BUN?? 08/02/25 17:20?? 21?? Creatinine Level?? 08/02/25 17:20?? 0.93?? BUN/Creat Ratio?? 08/02/25 17:20?? 22.5 ??High?? eGFR AA?? 08/02/25 17:20?? >60 eGFR Non AA?? 08/02/25 17:20?? 60?? Calcium Level?? 08/02/25 17:20?? 9.0?? Bili Total?? 08/02/25 17:20?? 0.7?? Alk Phos?? 08/02/25 17:20?? 53?? AST/SGOT?? 08/02/25 17:20?? 21?? ALT/SGPT?? 08/02/25 17:20?? 9.0 ??Low?? Protein Total?? 08/02/25 17:20?? 7.1?? Albumin Level?? 08/02/25 17:20?? 3.5?? Globulin?? 08/02/25 17:20?? 3.6?? A/G Ratio?? 08/02/25 17:20?? 0.9 ??Low?? Lipase Level?? 08/02/25 17:20?? 31.0?? Osmolality?? 08/02/25 17:20?? 279? Cardiac Isoenzymes?? LATEST RESULTS?? Troponin I High Sensitivity?? 08/02/25 17:20?? 5.2? CBC?? LATEST RESULTS?? WBC?? 08/02/25 17:20?? 16.4 ??High?? RBC?? 08/02/25 17:20?? 3.23 ??Low?? Hgb?? 08/02/25 17:20?? 9.0 ??Low?? Hct?? 08/02/25 17:20?? 27.6 ??Low?? MCV?? 08/02/25 17:20?? 85?? MCH?? 08/02/25 17:20?? 28?? MCHC?? 08/02/25 17:20?? 33?? RDW?? 08/02/25 17:20?? 16.4 ??High?? Platelet?? 08/02/25 17:20?? 366?? MPV?? 08/02/25 17:20?? 8.2? Differential?? LATEST RESULTS?? Auto Neut %?? 08/02/25 17:20?? 85?? Auto Lymph %?? 08/02/25 17:20?? 11 ??Low?? Auto [place] %?? 08/02/25 17:20?? 2?? Auto Eos %?? 08/02/25 17:20?? 0.5 ??Low?? Auto Baso %?? 08/02/25 17:20?? 0.7?? Neut Abs#?? 08/02/25 17:20?? 14.0 ??High?? Lymph Abs#?? 08/02/25 17:20?? 1.9?? [place] Abs#?? 08/02/25 17:20?? 0.4?? Eos Abs#?? 08/02/25 17:20?? 0.1?? Baso Abs#?? 08/02/25 17:20?? 0.1? Coagulation?? LATEST RESULTS?? PT?? 08/02/25 17:20?? 11.4?? INR?? 08/02/25 17:20?? 1.08?? PTT?? 08/02/25 17:20?? 27? Misc Lab Order?? LATEST RESULTS?? Tube Collected?? 08/02/25 17:21?? Yes? [Electronically Signed on: 08/02/2025 19:16 EST] MarquiskhoaKendra DO [Verified on: 08/02/2025 19:16 EST] Kendra Baker DO Patient Care team information Care Team Personnel Name: CARMELO HERNÁNDEZ, ANN MARIE Moreira Position: [facility] Physician Acute/ED/Clinic/Care Member Role: Primary Care Physician [address]: [address] [place] [address] Telecom: Care Team Related Persons Name: ATUL CHATMAN Name: ASAD GONZALEZORD Insurance Providers Guarantor name: OTONIEL GONZALEZ [facility] Information #: 1 Payer: [facility] Payer Identifier: CATHI Member Number: [id number] Group Number: [id number] Subscriber Identifier: [id number] Relationship to Subscriber: spouse Coverage Type: [employer]IVATE [employer] INSURANCE Coverage Verification Date: 25 Telecom: [phone] Address: [address] [address]
[2025-08-03] VITALS (11 sets, daily range): BP systolic 114–133; BP diastolic 58–96; PULSE 64–76; TEMP 36.6; O2SAT 99–100; BMI 28.3
--- NOTE | 2025-08-03 22:11 | ED.FEMALEGU1 ---
HPI - Female Genitourinary General Chief complaint: Vaginal Bleeding Stated complaint: Vaginal bleeding Time Seen by Provider: 08/03/25 22:11 History of Present Illness HPI Narrative: seen at [facility] yesterday for vaginal bleed. Bleeding started again about an hour ago. Has gone thru several pads. complains of abdominal cramping Related Data Home Medications ?Medication ?Instructions ?Recorded ?Confirmed acetazolamide 250 mg tablet 250 mg PO Q12H 08/03/25 08/03/25 dorzolamide 2 % eye drops 1 drp ophthalmic (eye) TID 08/03/25 08/03/25 fluoride topical topical 08/03/25 netarsudil 0.02 %-latanoprost 1 drp ophthalmic (eye) QPM 08/03/25 08/03/25 0.005 % eye drops (Rocklatan) timolol 0.5 % eye drops 1 drp ophthalmic (eye) BID 08/03/25 08/03/25 Allergies Allergy/AdvReac Type Severity Reaction Status Date / Time furosemide (From Lasix) Allergy Mild hives Verified 08/03/25 22:12 Review of Systems ROS Status of ROS 10 or more systems reviewed and unremarkable except as noted in history and below PFSH PFSH Social History Little interest or pleasure in doing things: not at all Feeling down, depressed, or hopeless: not at all Exam Constitutional Vital Signs, click to edit/add: Last Vital Signs Temp 97.9 F 08/03/25 22:12 Pulse 75 08/03/25 23:40 Resp 14 08/03/25 23:40 BP 121/58 08/03/25 23:30 Pulse Ox 100 08/03/25 23:40 O2 Del Method Room Air 08/03/25 22:12 Common normals: average body habitus, oriented x3, alert and well nourished [facility] Common normals: normocephalic and head/scalp atraumatic Eye Common normals: PERRL and EOMs intact bilaterally Respiratory Common normals: normal respiratory effort, no retractions, no use of accessory muscles and clear to auscultation bilaterally Cardio Common normals: regular rate, regular rhythm, S1 normal heart sound and S2 normal heart sound GI Common normals: Normal to inspection, nondistended, normoactive bowel sounds present, soft to palpation and non-tender Extremity Common normals: normal to inspection and full ROM Neuro Common normals: oriented x3, CN's II-XII intact bilaterally and moves all extremities Psych Appearance: grossly normal Course Vital Signs Vital signs: Vital Signs Temperature 97.9 F 08/03/25 22:12 Pulse Rate 74 08/03/25 22:12 Respiratory Rate 18 08/03/25 22:12 Blood Pressure 115/76 08/03/25 22:12 Pulse Oximetry 100 08/03/25 22:12 Oxygen Delivery Method Room Air 08/03/25 22:12 Temperature 97.9 F 08/03/25 22:12 Pulse Rate 75 08/03/25 23:40 Respiratory Rate 14 08/03/25 23:40 Blood Pressure 121/58 08/03/25 23:30 Pulse Oximetry 100 08/03/25 23:40 Oxygen Delivery Method Room Air 08/03/25 22:12 MDM - Female Genitourinary MDM Narrative Medical decision making narrative: patient was seen at an outside hospital yesterday for vaginal bleed. CT at that visit with findings worrisome for metastatic uterine CA. Bleeding stop and she was discharged home. Bleeding started again tonight and Squad was called. Found her at home pale and in pain. large amount of vaginal blood at the scene. Arrives here pale and complaining of cramping pain she was hydrated with NS. Pelvic exam with one large clot in the vault that was removed. There is a small clot extending through the os without active bleeding and it was left in place. Hgb 7.2 tonight. Hgb was [address] Valenzuela who recommended transfer to [facility] so she can also be evaluated by oncology. Patient is feeling better after 50mcg Fentanyl. Discussed with Resident guest relations receptionist at [facility] concerning transfer and she will contact her Attending and then contact [facility] regarding transfer Lab Data Labs: Lab Results 08/03/25 08/04/25 Range/Units 22:20 01:18 WBC 13.7 H (4.0-11.0) 10^3/uL RBC 2.61 L (4.20-5.40) 10^6/uL Hgb 7.2 L (12.0-16.0) g/dL Hct 23.5 L* (36.0-48.0) % MCV 90.0 (81.0-99.0) fL MCH 27.6 (26.7-34.0) pg MCHC 30.6 (29.9-35.2) g/dL RDW 15.8 H (11.0-15.0) % Plt Count 388 (150-450) 10^3/uL MPV 10.1 (9.5-13.5) fL Neut % (Auto) 66.0 (43.0-75.0) % Lymph % (Auto) 27.2 (20.5-60.0) % Pine % (Auto) 4.7 (1.7-12.0) % Eos % (Auto) 1.3 (0.9-7.0) % Baso % (Auto) 0.5 (0.2-2.0) % Neut # (Auto) 9.1 H (1.4-6.5) 10^3/uL Lymph # (Auto) 3.7 (1.2-3.8) 10^3/uL Pine # (Auto) 0.7 (0.3-0.8) 10^3/uL Eos # (Auto) 0.2 (0.0-0.7) 10^3/uL Baso # (Auto) 0.1 (0.0-0.1) 10^3/uL Abs Immat Gran (auto) 0.04 H (0.00-0.03) 10^3/uL Imm/Tot Granulo (auto) 0.3 (0.0-0.5) % Sodium 143 (136-145) mmol/L Potassium 3.4 L (3.5-5.1) mmol/L Chloride 110 H (98-107) mmol/L Carbon Dioxide 22.3 (21.0-32.0) mmol/L Anion Gap 14.1 BUN 20.0 H (7.0-18.0) mg/dL Creatinine 0.96 (0.55-1.02) mg/dL Est GFR ( Amer) >60 (>=60 mL/min/1.73m^2) Est GFR (Non-Af Amer) 57 L (>=60 mL/min/1.73m^2) BUN/Creatinine Ratio 20.8 Glucose 156 H (74-106) mg/dL Lactate 2.2 H* 0.6 (0.4-2.0) mmol/L Calcium 8.6 (8.5-10.1) mg/dL Total Bilirubin 0.3 (0.2-1.0) mg/dL AST 15 (15-37) U/L ALT 17 (14-59) U/L Alkaline Phosphatase 64 (46-116) U/L Total Protein 6.4 (6.4-8.2) g/dL Albumin 3.0 L (3.4-5.0) g/dL Globulin 3.4 g/dL Albumin/Globulin Ratio 0.9 Discharge Plan Discharge Chief Complaint: Vaginal Bleeding Clinical Impression: Vaginal bleeding, Dysfunctional uterine bleeding Patient Disposition: [facility] Discharge Date/Time: 08/04/25 02:10
[2025-08-03 22:37] LABS: Hemoglobin 7.2 g/dL (12.0-16.0); Immature Granulocytes Abs Auto 0.04 10^3/uL (0.00-0.03); Immature Granulocytes Pct Auto 0.3 % (0.0-0.5); Lymphocytes Absolute Auto 3.7 10^3/uL (1.2-3.8); Mean Corpuscular HGB Conc 30.6 g/dL (29.9-35.2); Mean Corpuscular Hemoglobin 27.6 pg (26.7-34.0); Mean Corpuscular Volume 90.0 fL (81.0-99.0); Platelet Count 388 10^3/uL (150-450); Red Blood Count 2.61 10^6/uL (4.20-5.40); White Blood Count 13.7 10^3/uL (4.0-11.0)
[2025-08-03 22:43] LABS: Hematocrit 23.5 % (36.0-48.0)
[2025-08-03 22:53] LABS: Alanine Aminotransferase 17 U/L (14-59); Albumin Globulin Ratio 0.9; Albumin Level 3.0 g/dL (3.4-5.0); Alkaline Phosphatase 64 U/L (46-116); Anion Gap 14.1; Aspartate Amino Transferase 15 U/L (15-37); Blood Urea Nitrogen 20.0 mg/dL (7.0-18.0); Calcium 8.6 mg/dL (8.5-10.1); Carbon Dioxide 22.3 mmol/L (21.0-32.0); Chloride 110 mmol/L (98-107); Estimated GFR (African America >60 (>=60 mL/min/1.73m^2); Estimated GFR (Non-African Ame 57 (>=60 mL/min/1.73m^2); Globulin 3.4 g/dL; Glucose 156 mg/dL (74-106); Potassium 3.4 mmol/L (3.5-5.1); Sodium 143 mmol/L (136-145); Total Protein 6.4 g/dL (6.4-8.2)
[2025-08-03 22:57] LABS: Lactate/Lactic Acid 2.2 mmol/L (0.4-2.0)
[2025-08-03] MEDS: FENTANYL CITRATE/PF 100 MCG/2 ML VIAL 50 MCG IV (23:22)
--- OUTSIDE RECORDS SUMMARY | 2025-08-03 23:27 | XMS_ITS | Clinical Summary ---
Author Organization [facility] Address [address] [place], [place] [id number] Care Team Providers Care Farm Management Agent Name Role Phone Bin Sidhu MD Primary Care Provider Allergies Active AllergyReactionsCriticalityNoted NisnEshvebecWutdhBepxDbsx2009 Medications MedicationSigDispense QuantityRefillsLast FilledStart DateEnd DateStatus TETRACYCLINE 500 MG CAP Indications:Knee joint [id number] naproxen(NAPROSYN 500 MG TAB) Indications:Knee joint pain,Knee bursitis1 PPO BID with food 60 ctive Social History Tobacco UseTypesPacks/DayYears UsedDateSmoking Tobacco: Never Assessed CommentsUnknownSex and Gender InformationValueDate RecordedSex Assigned at Not on fileLegal ElxZqkvfz03/02/2012 8:21 AM ESTGender IdentityNot on fileSexual OrientationNot on file Plan of Treatment Health MaintenanceDue DateLast DoneCommentsAnxiety Brblqfmrs56/05/1973Depression Gxezpnbod44/05/1973Hepatitis C Brzhvmutb03/05/1973DTaP,Tdap,Td Vaccine (1 - Tdap)1974Mammogram Kxuhusznn78/05/1995CT Aplnouydqjhr52/05/2000Cologuard (FIT-DNA)03/31/20002232Fneembvskhy13/05/2000Colorectal Cancer Zgjdoowoh21/05/2000 Diabetes Xlrspwgfa35/05/2000Fecal Occult Blood2000Lipid Screening 03/31/20001557Aiwqhwgjqzdbo61/05/2000Pneumococcal Vaccine: 50+ (1 of 1 - PCV) 2005Shingrix Vaccine (1 of 2)2005Bone Density Mctofrwcs71/05/2020 Advance Directive Cdmqnrjvpj12/01/2025ovid-19 Vaccine ( - 2024-26 season) 2025Influenza Vaccine (#1)2025RSV Vaccine (1 - 1-dose 75+ series) 2030 Insurance Care Teams Team MemberRelationshipSpecialtyStart DateEnd Date Bin Sidhu MD [address] [place] [address] [facility]05/10/09
--- OUTSIDE RECORDS SUMMARY | 2025-08-03 23:27 | XMS_ITS | Clinical Summary ---
Author Organization [facility] Address [address] [place] [address] Care Team Providers Care [employer] Name Role Phone Unavailable Primary Care Provider Unavailabl e Social History Tobacco UseTypesPacks/DayYears UsedDateSmoking Tobacco: Never Assessed CommentsUnknownSex and Gender InformationValueDate RecordedSex Assigned at Not on fileLegal JfzPhtuyj01/15/2023 11:23 PM EDTGender IdentityNot on file Sexual OrientationNot on file Last Filed Vital Signs Vital SignReadingTime TakenCommentsBlood Pressure--Pulse--Temperature-- Respiratory Rate--Oxygen Saturation--Inhaled Oxygen Concentration--Zedzjp55.9 kg (143 lb)09/29/2021 12:00 PM DIWQzrpgo813.5 cm (5' 2 )09/29/2021 12:00 PM ESTBody Mass Index26.16009/29/2021 12:00 PM EST Plan of Treatment DateTypeDepartmentCare Team (Latest Contact Info)Tvlpgcwzweh47/11/2025 2:00 PM ESTOffice Visit [facility] [address] [id number] Joana Gtz PA [address] [place] [address] [place] [address]
[2025-08-04] MEDS: 0.9 % SODIUM CHLORIDE 1,000 ML 999 ML IV (00:05)
[2025-08-04 01:43] LABS: Lactate/Lactic Acid 0.6 mmol/L (0.4-2.0)
== END 2025-08-04 02:10 | disposition short-term general hospital (02) ==
PROVIDERS: Emergency Provider Internal Medicine
DX: N93.9 Abnormal uterine and vaginal bleeding, unspecified (principal); N93.8 Other specified abnormal uterine and vaginal bleeding
CPT/HCPCS: 36415; 80053; 83605; 85025; 96374; 99285; J3010

== ENCOUNTER 2025-08-16 19:16 | Inpatient (IN) | payer MEDICARE, OTHER, SELFPAY ==
--- OUTSIDE RECORDS SUMMARY | 2025-08-02 18:05 | XMS_ITS | Encounter Summary ---
Author Organization [facility] Sys tem Address [facility] [id number] [address] [place] [address] Care Team Providers Care Director Of Billing Name Role Phone Unavailable Primary Care Provider Unavailabl e Encounter Details DateTypeDepartmentCare Team (Latest Contact Info)Aprnsmmkenw16/06/2025 6:05 PM ESTAncillary Procedure [facility] External [facility] Storage [address] [place] [address] Pain Social History Tobacco UseTypesPacks/DayYears UsedDateSmoking Tobacco: Never Assessed CommentsUnknownSex and Gender InformationValueDate RecordedSex Assigned at Not on fileLegal AkyLrpcpf25/08/2025 12:05 AM ESTGender IdentityNot on file Sexual OrientationNot on filedocumented as of this encounter Plan of Treatment DateTypeDepartmentCare Team (Latest Contact Info)Airhnmpjwry36/24/2025 11:30 AM ESTHospital Encounter [facility] Surgery [address] [place] [address] Justin Mackey MD [address] [place] [address] 08/20/2025 11:30 AM EST - 08/20/2025 12:30 PM ESTSurgery [facility] [address] [place] [address] Justin Mackey MD [address] [place] [phone] INSERTION PORT A CATH [[id number] (CPT??)]08/21/2025 8:00 AM ESTInfusion Paola Wilson [facility] - Medical Oncology [address] [place] [phone] 08/21/2025 11:00 AM ESTOffice Visit Paola [place] Medical Oncology [address] [place] [phone] Melinda Coffey PA [address] [facility] [address] [place] [address] 09/10/2025 11:00 AM ESTInfusion Paola [facility] - Medical Oncology [address] [place] [phone] 09/10/2025 1:30 PM ESTOffice Visit [facility] A Department of [address] [place] [address] Annita Patton, MARKETING STRATEGY ANALYST-DOGMAN/WOMAN [address] [place] [address], [address] [place] [address] 09/11/2025 8:00 AM ESTInfusion Paola [facility] - Medical Oncology [address] [place] [phone] NamePriorityAssociated DiagnosesDate/TimeINSERTION PORT A CATH needed for chemotherapy 08/20/2025 11:30 AM ESTdocumented as of this encounter Procedures Procedure NamePriorityDate/TimeAssociated DiagnosisCommentsUS DUPLEX ABD PELVIS KGOQDikclnp30/06/2025 6:05 PM EST Pain documented in this encounter Results * Ultrasound duplex abdomen pelvis limited (08/02/2025 6:05 PM EST)Specimen (Source)Anatomical Location / LateralityCollection Method / VolumeCollection TimeReceived Time Narrative Authorizing ProviderResult TypeResult StatusScanning Provider ExternalIMG US ORDERABLESFinal Result documented in this encounter Visit Diagnoses Diagnosis Pain Generalized pain documented in this encounter
--- OUTSIDE RECORDS SUMMARY | 2025-08-02 19:10 | XMS_ITS | Encounter Summary ---
Author Organization [facility] Sys tem Address [facility] [id number] [address] [place] [address] Care Team Providers Care Core Sticker Name Role Phone Unavailable Primary Care Provider Unavailabl e Encounter Details DateTypeDepartmentCare Team (Latest Contact Info)Fwizdhxjpfv47/06/2025 7:10 PM ESTAncillary Procedure [facility] External [facility] Storage [address] [place] [address] Pain Social History Tobacco UseTypesPacks/DayYears UsedDateSmoking Tobacco: Never Assessed CommentsUnknownSex and Gender InformationValueDate RecordedSex Assigned at Not on fileLegal JrxPsefhz07/08/2025 12:05 AM ESTGender IdentityNot on file Sexual OrientationNot on filedocumented as of this encounter Plan of Treatment DateTypeDepartmentCare Team (Latest Contact Info)Njgzvbfagif56/24/2025 11:30 AM ESTHospital Encounter [facility] Surgery [address] [place] [address] Justin Mackey MD [address] [place] [address] 08/20/2025 11:30 AM EST - 08/20/2025 12:30 PM ESTSurgery [facility] [address] [place] [address] Justin Mackey MD [address] [place] [phone] INSERTION PORT A CATH [[id number] (CPT??)]08/21/2025 8:00 AM ESTInfusion [facility]ola [place] [facility] - Medical Oncology [address] [place] [phone] 08/21/2025 11:00 AM ESTOffice Visit Paola [facility] [address] [place] [phone] Melinda Coffey PA [address] [facility] [address] [place] [address] 09/10/2025 11:00 AM ESTInfusion Paola Ellington [facility] - Medical Oncology [address] [place] [phone] 09/10/2025 1:30 PM ESTOffice Visit [facility], A Department of [address] [place] [address] Annita Patton, FLOOR REPRESENTATIVE-DESIGN ENGINEERING SPECIALIST [address] [place] [address], [address] [place] [address] 09/11/2025 8:00 AM ESTInfusion Paola Ellington [facility] - Medical Oncology [address] [place] [phone] NamePriorityAssociated DiagnosesDate/TimeINSERTION PORT A CATH needed for chemotherapy 08/20/2025 11:30 AM ESTdocumented as of this encounter Procedures Procedure NamePriorityDate/TimeAssociated DiagnosisCommentsCT ABDOMEN AND PELVIS W LCNVBdtpmzr35/06/2025 7:10 PM EST Pain documented in this encounter Results * CT abdomen and pelvis with contrast (08/02/2025 7:10 PM EST)Specimen (Source) Anatomical Location / LateralityCollection Method / VolumeCollection Time Received Time Narrative Authorizing ProviderResult TypeResult StatusScanning Provider ExternalIMG CT ORDERABLESFinal Result documented in this encounter Visit Diagnoses Diagnosis Pain Generalized pain documented in this encounter
--- OUTSIDE RECORDS SUMMARY | 2025-08-04 03:32 | XMS_ITS | Encounter Summary ---
Author Organization [employer] [facility] tem Address [facility] [id number] [address] [place] [address] Care Team Providers Care Signal Intelligence/Electronic Warfare Name Role Phone Ann Marie Sidhu MD Primary Care Provider [phone] Reason for Referral * Misc (Routine) - Pending ReviewSpecialtyDiagnoses / ProceduresReferred By ContactReferred To Contact Procedures Discharge Follow-Up Nusrat Ramirez MD [address] [address] Phone: tel: fax: Referral IDStatusReasonStart DateExpiration DateVisits RequestedVisits [id number] * Misc (Routine) - Pending ReviewSpecialtyDiagnoses / ProceduresReferred By ContactReferred To Contact Procedures Hygiene Nusrat Ramirez MD [address] [address] Phone: tel: fax: Referral IDStatusReasonStart DateExpiration DateVisits RequestedVisits [id number] * Misc (Routine) - Pending ReviewSpecialtyDiagnoses / ProceduresReferred By ContactReferred To Contact Procedures Discharge Follow-Up Nusrat Ramirez MD [address] [place] [address] Phone: tel: fax: Referral IDStatusReasonStart DateExpiration DateVisits RequestedVisits [id number] * Misc (Routine) - Pending ReviewSpecialtyDiagnoses / ProceduresReferred By ContactReferred To Contact Procedures [facility] Nusrat Ramirez MD [address] [place] [address] Phone: tel: fax: Referral IDStatusReasonStart DateExpiration DateVisits RequestedVisits [id number] * Misc (Routine) - Pending ReviewSpecialtyDiagnoses / ProceduresReferred By ContactReferred To Contact Procedures Discharge Follow-Up Discharge Follow-Up Jalyn Camp MD [address] [place] [address] Phone: tel: fax: Referral IDStatusReasonStart DateExpiration DateVisits RequestedVisits [id number] * Misc (Routine) - Pending ReviewSpecialtyDiagnoses / ProceduresReferred By ContactReferred To Contact Procedures Annita Walter MD [address] [address] Phone: tel: fax: Referral IDStatusReasonB[place] DateExpiration DateVisits RequestedVisits [id number] [id number]/ Reason for Visit * Auth/Cert (Routine)SpecialtyDiagnoses / ProceduresReferred By ContactReferred To Contact Diagnoses Pelvic mass Vagina bleeding Vaginal bleeding pelvic mass/vaginal bleeding Dustin Santiago MD [address] [facility], [address] [place] [address] Phone: tel: fax: Referral IDStatusReasonB[place] DateExpiration DateVisits RequestedVisits [id number] Encounter Details DateTypeDepartmentCare Team (Latest Contact Info)Eklfrvusehu99/08/2025 3:32 AM EST - 08/09/2025 5:49 PM ESTHospital Encounter [facility] - [facility] [address] Acute [address] [place] [id number] [place] [address] [place] [address], [address] [place] [address] Endometrial cancer determined by uterine biopsy ([facility]) (Primary Dx); Pelvic mass; Limited mobility; Nausea Discharge Disposition: Home Social History Tobacco UseTypesPacks/DayYears UsedDateSmoking Tobacco: NeverSmokeless Tobacco: Never Tobacco Cessation:Counseling Given: Not Answered Alcohol UseStandard Drinks/WeekCommentsNever0 (1 standard drink = 0.6 oz pure alcohol)PHQ-2AnswerDate RecordedTotal Igmjw32110/04/2024UDIT-CAnswerDate Recorded Q1: How often do you have [...] InformationValueDate RecordedSex Assigned at BirthNot on fileLegal NtcXiznys54/08/2025 12:05 AM ESTGender IdentityNot on fileSexual OrientationNot on filedocumented as of this encounter Last Filed Vital Signs Vital SignReadingTime TakenCommentsBlood Hywkexmt952/7208/09/2025 7:49 AM EST Bsnmf699008/09/2025 7:49 AM HXANdusbpsejfy38.4 ??C (99.4 ??F)08/09/2025 7:49 AM ESTRespiratory Fptw331610/09/2024 7:49 AM ESTOxygen Cyoeddnskx83%08/09/2025 7:49 AM ESTInhaled Oxygen Concentration--Krnict31 kg (165 lb 5.5 oz)08/09/2025 3:46 AM QDMJgzdwh895.5 cm (5' 2.01 )08/04/2025 8:39 AM ESTBody Mass Index30.23 08/04/2025 8:39 AM ESTdocumented in this encounter Functional Status * QuestionAnswerDate of AssessmentAuthorFunctional GkybcfZvpnmmnzptf48/09/2025 11:52 AM Milagros Bolden RN * AUDIT-C ScoreAnswerDate of RwyirynicxEzvxyf928/08/2025 3:44 PM Denice Schultz RN * QuestionAnswerDate [...] encounter Mental Status * QuestionAnswerEntry DateAuthorOverall Cognitive HgnxixVFR23/12/2025 9:18 AM Toya Morrell, OT/L documented in [...] history on file. who initially presented to [facility] for vaginal bleeding. A pelvic ultrasound and CT abdomen were performed that showed a uterine mass and enlarged lymph nodes. The patient was transferred to [facility]. Upon arrival speculumexam showed 1 large clot [...] Your Medications These medications were sent to [facility] - [facility] [address] [address] [facility] [address] acetaminophen 500 mg tablet famotidine 20 mg [...] Postop visit on 08/21 Jalyn Camp MD PRINTER ASSISTANT Resident, PGY-3 Cosigned by Sherry Cuellar MD [...] changes made as necessary. Jalyn Camp MD Hand Fretted Instrument Maker Resident PGY-2 08/09/25 6:44 AM Cosigned by [...] changes made as necessary. Jalyn Camp MD Hand Fretted Instrument Maker Resident PGY-2 08/08/25 6:38 AM Cosigned by [...] Camp MD - 08/07/2025 6:39 AM EST [facility] Daily Progress Note Admission Date: 08/04/2025 Hospital [...] -Hgb 7.2 (OSH)>5.8>2u pRBC>9.1>8>8.3>8.3 Jalyn Camp MD Hand Fretted Instrument Maker Resident, PGY-3 If questions or concerns, please contact via [facility] pager at [phone]. Cosigned by Dennis Monson MD at 08/07/2025 [...] Ramirez MD - 08/06/2025 7:09 AM EST [facility] Daily Progress Note Admission Date: 08/04/2025 Hospital [...] and hold food down. Nusrat Ramirez MD Hand Fretted Instrument Maker Resident, PGY-1 If questions or concerns, please contact via [facility] pager at [phone]. Cosigned by Sherry Cuellar MD at 08/06/2025 [...] Still MD - 08/05/2025 6:24 AM EST [facility] Daily Progress Note Admission Date: 08/04/2025 Hospital [...] home today with close follow up with [facility] for pathology review and treatment planning. Annita Rejent, MD Hand Fretted Instrument Maker Resident, PGY-2 If questions or concerns, please contact via [facility] pager at [phone]. Cosigned by Dustin Santiago MD at 08/05/2025 12:42 PM EST Associated attestation - Dustin Santiago MD - 08/05/2025 12:42 PM EST [...] this afternoon after packing has been removed. DUSTIN SANTIAGO MD documented in this encounter H&P [...] Date DILATION CURETTAGE N/A 08/04/2025 Performed by Dustin Santiago MD at [facility] Allergies Allergen Reactions Latex Hives and [...] flush 10 mL, 10 mL, intravenous, PRN, Dustin Santiago MD, 10 mLat 08/05/25 1214 [Transfer [...] an obstructing tumor. Manuel Busby MD, FACS [facility] General Surgeons Minimally Invasive Robotic Surgery Board Certified in General Surgery Board Certified in Critical Care Office: [phone] Email: [email or web address] Thank you for allowing me to participate in the care of your patient. Please feel free to contact me with any questions or concerns. [phone] * Dennis Monson MD - 08/07/2025 11:26 AM EST HISTORY AND PHYSICAL INTERVAL NOTE: Eunice Anderson 1955 [id number] H&P reviewed. The patient was examined and there are no changes to the H&P. Dennis Monson MD Source Note - Jalyn Camp MD - 08/07/2025 6:39 AM EST [facility] Daily Progress Note Admission Date: 08/04/2025 Hospital [...] -Hgb 7.2 (OSH)>5.8>2u pRBC>9.1>8>8.3>8.3 Jalyn Camp MD Hand Fretted Instrument Maker Resident, PGY-3 If questions or concerns, please contact via [facility] pager at [phone]. Cosigned by Dennis Monson MD at 08/07/2025 11:22 AM EST * Annita Still MD - 08/04/2025 3:38 AM EST Gynecology Oncology Consultation Date of Admission: 08/04/2025 3:32 AM Chief Complaint : Uterine mass, vaginal bleeding History of Present Illness : Eunice Anderson is a 70 y.o. female with PMH of glaucoma who presents as a transport from [facility] for vaginal bleeding. Patient reports vaginal spotting that began 2 days ago. She reports feeling weak, lightheaded, and nauseous 1 day ago while at work and went to the bathroom where she filled the toilet with blood. [facility] that revealed a likely uterine mass and possible enlarged lymph node. Hgb at the time was 9mg/dl and vaginal bleeding was stable. Patient was referred to OBGYN outpatient for close follow up. She reports worsening vaginal bleeding overnight along with weakness, lightheadedness, nausea. She also reports intermittent painful cramps and passage of clots. She was taken to [facility] for evaluation. Per report, the patient was vitally stable, pale, and hgb was 7.2mg/dl. On exam, 1 large clot was cleared from the vagina and another remained at the cervical os with a slow trickle of active bleeding. Patient was given IVF and decision was made to transport patient to [facility] for Gynecology Oncology evaluation for vaginal bleeding in the setting of a pelvic mass. 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 Denies prior gynecologic surgery. [...] Discussed with Dr. Santiago Annita Still MD Hand Fretted Instrument Maker Resident, PGY-2 If questions or concerns, please contact via [facility] pager at [phone]. Cosigned by Dustin Santiago MD at 08/04/2025 9:01 AM EST Associated attestation - Dustin Santiago MD - 08/04/2025 9:01 AM EST [...] observation overnight once D&C completedwith post-transfusion CBC. DUSTIN SANTIAGO MD documented in this encounter Miscellaneous Notes * Plan of Care - Akiko Torres RN - 08/09/2025 5:27 PM EST Problem: Pain Goal: Patient goal is pain score less than 4, able to rest, and participant in treatment plan as appropriate Description: INTERVENTIONS: 1. Encourage patient or legal union contract representative to report early pain and ask for [...] per policy 9. Teach patient or legal union contract representative interventions for comforting 08/09/2025 172 by JORDYN [...] at the bedside 7. Instruct patient/ patient union contract representative about use of safety devices 8. Include patient/ patient union contract representative in decisions related to safety 08/09/2025 1726 [...] hygiene technique. 7. Identify and instruct patient/patient union contract representative in use of appropriate isolation precautionsfor identified infection/symptoms. 8. Provide and discuss with patient/patient union contract representative on educational MDRO sheet. 9. Encourage and monitor nutritional status daily and consult lasting machine operator if indicated. 10. Implement neutropenic guidelines as needed. 08/09/20251725 by JORDYN Wharton Outcome: Adequate for Discharge 08/09/20251228 by JORDYN Wharton Outcome: Progressing Note: Evaluation of progress towards goal: Patient afebrile, vital signs stable at this time. Continuing to monitor. Problem: Knowledge Deficit Goal: Patient/patient union contract representative demonstrates understanding of disease process, treatment plan,medications, [...] Score of =/> 25 or indicated by [facility] Assessment Goal: Patient should be free from fall Description: Interventions: 1. [place] to environment 2. Hourly rounds addressing the [...] non-skid footwear 11. Teach patient and patient union contract representative to maintain environment for safety and engage [...] (cane, walker) within reach 19. Request patient union contract representative bring adaptive equipment/mobility aids from home or obtain and provide as needed 20. Consult pharmacy regarding effects of med's affecting mobility, cognition, and alternatives 21. Obtain physician order for PT if risk factors associated with mobility are present 22. Obtain physician order for OT as appropriate 23. Utilize diversional activities 24. Educate patient and patient union contract representative how to maintain a safe environment during visitationtimes (notify nurse prior to leaving bedside) 25. Consider appropriateness of medical or non-medical coding technician 26. Set up voiding schedule as appropriate [...] supplement as ordered 13. Collaborate with clinical lasting machine operator 14. Include patient/ patient's union contract representative in decisions related to nutrition Outcome: Adequate [...] * Plan of Care - Eloisa Doshi [facility] - 08/09/2025 2:16 PM EST Problem: Medication [...] ew also shows new medication use. * PT/OT/GUNNER'S MATE G - Neo Hoskins PTA - 08/09/2025 2:07 [...] Description: INTERVENTIONS: 1. Encourage patient or legal union contract representative to report early pain and ask for [...] per policy 9. Teach patient or legal union contract representative interventions for comforting Outcome: Progressing Note: Evaluation [...] at the bedside 7. Instruct patient/ patient union contract representative about use of safety devices 8. Include patient/ patient union contract representative in decisions related to safety Outcome: Progressing [...] hygiene technique. 7. Identify and instruct patient/patient union contract representative in use of appropriate isolation precautionsfor identified infection/symptoms. 8. Provide and discuss with patient/patient union contract representative on educational MDRO sheet. 9. Encourage and monitor nutritional status daily and consult lasting machine operator if indicated. 10. Implement neutropenic guidelines as needed. Outcome: Progressing Note: Evaluation of progress towards goal: Patient afebrile, vital signs stable at this time. Continuing to monitor. Problem: Knowledge Deficit Goal: Patient/patient union contract representative demonstrates understanding of disease process, treatment plan,medications, [...] Score of =/> 25 or indicated by [facility] Assessment Goal: Patient should be free from fall Description: Interventions: 1. [place] to environment 2. Hourly rounds addressing the [...] non-skid footwear 11. Teach patient and patient union contract representative to maintain environment for safety and engage [...] (cane, walker) within reach 19. Request patient union contract representative bring adaptive equipment/mobility aids from home or obtain and provide as needed 20. Consult pharmacy regarding effects of med's affecting mobility, cognition, and alternatives 21. Obtain physician order for PT if risk factors associated with mobility are present 22. Obtain physician order for OT as appropriate 23. Utilize diversional activities 24. Educate patient and patient union contract representative how to maintain a safe environment during visitationtimes (notify nurse prior to leaving bedside) 25. Consider appropriateness of medical or non-medical coding technician 26. Set up voiding schedule as appropriate [...] Description: INTERVENTIONS: 1. Encourage patient or legal union contract representative to report early pain and ask for [...] per policy 9. Teach patient or legal union contract representative interventions for comforting Outcome: Progressing Note: Evaluation [...] at the bedside 7. Instruct patient/ patient union contract representative about use of safety devices 8. Include patient/ patient union contract representative in decisions related to safety Outcome: Progressing [...] hygiene technique. 7. Identify and instruct patient/patient union contract representative in use of appropriate isolation precautionsfor identified infection/symptoms. 8. Provide and discuss with patient/patient union contract representative on educational MDRO sheet. 9. Encourage and monitor nutritional status daily and consult lasting machine operator if indicated. 10. Implement neutropenic guidelines as needed. Outcome: Progressing Note: Evaluation of progress towards goal: No signs or symptoms of infection Problem: Knowledge Deficit Goal: Patient/patient union contract representative demonstrates understanding of disease process, treatment plan,medications, [...] Score of =/> 25 or indicated by [facility] Assessment Goal: Patient should be free from fall Description: Interventions: 1. [place] to environment 2. Hourly rounds addressing the [...] non-skid footwear 11. Teach patient and patient union contract representative to maintain environment for safety and engage [...] (cane, walker) within reach 19. Request patient union contract representative bring adaptive equipment/mobility aids from home or obtain and provide as needed 20. Consult pharmacy regarding effects of med's affecting mobility, cognition, and alternatives 21. Obtain physician order for PT if risk factors associated with mobility are present 22. Obtain physician order for OT as appropriate 23. Utilize diversional activities 24. Educate patient and patient union contract representative how to maintain a safe environment during visitationtimes (notify nurse prior to leaving bedside) 25. Consider appropriateness of medical or non-medical coding technician 26. Set up voiding schedule as appropriate [...] supplement as ordered 13. Collaborate with clinical lasting machine operator 14. Include patient/ patient's union contract representative in decisions related to nutrition Outcome: Progressing [...] YESENIA SHAIKH RN 08/08/25 10:07 AM * PT/OT/GUNNER'S MATE G - Toya Ortiz OT/L - 08/08/2025 9:33 [...] 08/07/2025 Performed by Dennis Monson MD at [facility] DILATION CURETTAGE N/A 08/04/2025 Performed by Dustin Santiago MD at [facility] FLEXIBLE SIGMOIDOSCOPY N/A 08/07/2025 Performed by Manuel Busby MD at [facility] No chief complaint on file. 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 Hand Dominance: Right [...] Patient will perform bed mobility with Modified [place] Dates: Start: 08/08/25 Expected End: 09/06/25 Description: Goal Description: Disciplines: OT Problem: Functional Mobility Dates: Start: 08/08/25 Disciplines: OT Goal: Patient will perform functional mobility with Modified [place] Dates: Start: 08/08/25 Expected End: 09/06/25 Description: [...] Goal: Patient will perform transfers with Modified [place] Dates: Start: 08/08/25 Expected End: 09/06/25 Description: Goal Description: Disciplines: OT Occupational Therapy Care Plan (Resolved) There are no resolved problems. Principal Problem: Pelvic mass Active Problems: Vagina bleeding Vaginal bleeding * PT/OT/GUNNER'S MATE G - Ginny Mcghee, PT - 08/08/2025 9:31 [...] 08/07/2025 Performed by Dennis Monson MD at [facility] DILATION CURETTAGE N/A 08/04/2025 Performed by Dustin Santiago MD at [facility] FLEXIBLE SIGMOIDOSCOPY N/A 08/07/2025 Performed by Manuel Busby MD at [facility] No chief complaint on file. 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) Hearing / Speech / Vision Hearing: Within [...] Goal: Patient will perform gait with Modified [place] Dates: Start: 08/08/25 Expected End: 09/07/25 Description: Pt to amb 150' with RW and TN Disciplines: PT Problem: Stairs/Curb Dates: Start: 08/08/25 Disciplines: PT Goal: Patient will perform stairs/curb with Modified [place] Dates: Start: 08/08/25 Expected End: 09/07/25 Description: [...] Goal: Patient will perform transfers with Modified [place] Dates: Start: 08/08/25 Expected End: 09/07/25 Description: Sit<>stand with TN and use of RW for support Disciplines: [...] Description: INTERVENTIONS: 1. Encourage patient or legal union contract representative to report early pain and ask for [...] per policy 9. Teach patient or legal union contract representative interventions for comforting Outcome: Progressing Note: Evaluation [...] at the bedside 7. Instruct patient/ patient union contract representative about use of safety devices 8. Include patient/ patient union contract representative in decisions related to safety Outcome: Progressing [...] hygiene technique. 7. Identify and instruct patient/patient union contract representative in use of appropriate isolation precautionsfor identified infection/symptoms. 8. Provide and discuss with patient/patient union contract representative on educational MDRO sheet. 9. Encourage and monitor nutritional status daily and consult lasting machine operator if indicated. 10. Implement neutropenic guidelines as needed. Outcome: Progressing Note: Evaluation of progress towards goal: Pts VSS and labs WNL, no S/S of infection, all insertionsites clean dry and intact, pt and staff utilize proper handwashing technique. Problem: Knowledge Deficit Goal: Patient/patient union contract representative demonstrates understanding of disease process, treatment plan,medications, [...] goal: Pt discharge plan started on admission, lead caregiver involved, discharges needs assessed. Problem: Moderate - High Risk Fall Score Description: Torres Fall Score of =/> 25 or indicated by [facility] Assessment Goal: Patient should be free from fall Description: Interventions: 1. [place] to environment 2. Hourly rounds addressing the [...] non-skid footwear 11. Teach patient and patient union contract representative to maintain environment for safety and engage [...] (cane, walker) within reach 19. Request patient union contract representative bring adaptive equipment/mobility aids from home or obtain and provide as needed 20. Consult pharmacy regarding effects of med's affecting mobility, cognition, and alternatives 21. Obtain physician order for PT if risk factors associated with mobility are present 22. Obtain physician order for OT as appropriate 23. Utilize diversional activities 24. Educate patient and patient union contract representative how to maintain a safe environment during visitationtimes (notify nurse prior to leaving bedside) 25. Consider appropriateness of medical or non-medical coding technician 26. Set up voiding schedule as appropriate [...] supplement as ordered 13. Collaborate with clinical lasting machine operator 14. Include patient/ patient's union contract representative in decisions related to nutrition Outcome: Progressing [...] Description: INTERVENTIONS: 1. Encourage patient or legal union contract representative to report early pain and ask for [...] per policy 9. Teach patient or legal union contract representative interventions for comforting Outcome: Progressing Note: Evaluation [...] at the bedside 7. Instruct patient/ patient union contract representative about use of safety devices 8. Include patient/ patient union contract representative in decisions related to safety Outcome: Progressing [...] hygiene technique. 7. Identify and instruct patient/patient union contract representative in use of appropriate isolation precautionsfor identified infection/symptoms. 8. Provide and discuss with patient/patient union contract representative on educational MDRO sheet. 9. Encourage and monitor nutritional status daily and consult lasting machine operator if indicated. 10. Implement neutropenic guidelines as needed. Outcome: Progressing Note: Evaluation of progress towards goal: No signs or symptoms of infection Problem: Knowledge Deficit Goal: Patient/patient union contract representative demonstrates understanding of disease process, treatment plan,medications, [...] Score of =/> 25 or indicated by [facility] Assessment Goal: Patient should be free from fall Description: Interventions: 1. [place] to environment 2. Hourly rounds addressing the [...] non-skid footwear 11. Teach patient and patient union contract representative to maintain environment for safety and engage [...] (cane, walker) within reach 19. Request patient union contract representative bring adaptive equipment/mobility aids from home or obtain and provide as needed 20. Consult pharmacy regarding effects of med's affecting mobility, cognition, and alternatives 21. Obtain physician order for PT if risk factors associated with mobility are present 22. Obtain physician order for OT as appropriate 23. Utilize diversional activities 24. Educate patient and patient union contract representative how to maintain a safe environment during visitationtimes (notify nurse prior to leaving bedside) 25. Consider appropriateness of medical or non-medical coding technician 26. Set up voiding schedule as appropriate [...] supplement as ordered 13. Collaborate with clinical lasting machine operator 14. Include patient/ patient's union contract representative in decisions related to nutrition Outcome: Progressing [...] the pelvis, flexible sigmoidoscopy Surgeon: Kehinde Monson Safety Investigator: [id number] present for all portions of the [...] condition the family was updated postoperatively. * PT/OT/GUNNER'S MATE G - Vale Bhatt OTR/L - 08/07/2025 11:46 AM EST Occupational Therapy OT Type of Visit: Medical deferral (will continue to follow) Reason For Medical Deferral: Off unit Off Unit: Surgery * PT/OT/GUNNER'S MATE G - Ginny Mcghee, PT - 08/07/2025 11:42 [...] Description: INTERVENTIONS: 1. Encourage patient or legal union contract representative to report early pain and ask for [...] per policy 9. Teach patient or legal union contract representative interventions for comforting Outcome: Progressing Note: Evaluation [...] at the bedside 7. Instruct patient/ patient union contract representative about use of safety devices 8. Include patient/ patient union contract representative in decisions related to safety Outcome: Progressing [...] hygiene technique. 7. Identify and instruct patient/patient union contract representative in use of appropriate isolation precautionsfor identified infection/symptoms. 8. Provide and discuss with patient/patient union contract representative on educational MDRO sheet. 9. Encourage and monitor nutritional status daily and consult lasting machine operator if indicated. 10. Implement neutropenic guidelines as needed. Outcome: Progressing Note: Evaluation of progress towards goal: Pts VSS and labs WNL, no S/S of infection, all insertionsites clean dry and intact, pt and staff utilize proper handwashing technique. Problem: Knowledge Deficit Goal: Patient/patient union contract representative demonstrates understanding of disease process, treatment plan,medications, [...] goal: Pt discharge plan started on admission, lead caregiver involved, discharges needs assessed. Problem: Moderate - High Risk Fall Score Description: Torres Fall Score of =/> 25 or indicated by [facility] Assessment Goal: Patient should be free from fall Description: Interventions: 1. [place] to environment 2. Hourly rounds addressing the [...] non-skid footwear 11. Teach patient and patient union contract representative to maintain environment for safety and engage [...] (cane, walker) within reach 19. Request patient union contract representative bring adaptive equipment/mobility aids from home or obtain and provide as needed 20. Consult pharmacy regarding effects of med's affecting mobility, cognition, and alternatives 21. Obtain physician order for PT if risk factors associated with mobility are present 22. Obtain physician order for OT as appropriate 23. Utilize diversional activities 24. Educate patient and patient union contract representative how to maintain a safe environment during visitationtimes (notify nurse prior to leaving bedside) 25. Consider appropriateness of medical or non-medical coding technician 26. Set up voiding schedule as appropriate [...] supplement as ordered 13. Collaborate with clinical lasting machine operator 14. Include patient/ patient's union contract representative in decisions related to nutrition Outcome: Progressing [...] Description: INTERVENTIONS: 1. Encourage patient or legal union contract representative to report early pain and ask for [...] per policy 9. Teach patient or legal union contract representative interventions for comforting Outcome: Progressing Note: Evaluation [...] at the bedside 7. Instruct patient/ patient union contract representative about use of safety devices 8. Include patient/ patient union contract representative in decisions related to safety Outcome: Progressing [...] hygiene technique. 7. Identify and instruct patient/patient union contract representative in use of appropriate isolation precautionsfor identified infection/symptoms. 8. Provide and discuss with patient/patient union contract representative on educational MDRO sheet. 9. Encourage and monitor nutritional status daily and consult lasting machine operator if indicated. 10. Implement neutropenic guidelines as needed. Outcome: Progressing Note: Evaluation of progress towards goal: Pt free from signs of infection at this time, will continue to monitor for signs and symptoms of infection during shift. Pt afebrile. Problem: Knowledge Deficit Goal: Patient/patient union contract representative demonstrates understanding of disease process, treatment plan,medications, [...] Score of =/> 25 or indicated by [facility] Assessment Goal: Patient should be free from fall Description: Interventions: 1. [place] to environment 2. Hourly rounds addressing the [...] non-skid footwear 11. Teach patient and patient union contract representative to maintain environment for safety and engage [...] (cane, walker) within reach 19. Request patient union contract representative bring adaptive equipment/mobility aids from home or obtain and provide as needed 20. Consult pharmacy regarding effects of med's affecting mobility, cognition, and alternatives 21. Obtain physician order for PT if risk factors associated with mobility are present 22. Obtain physician order for OT as appropriate 23. Utilize diversional activities 24. Educate patient and patient union contract representative how to maintain a safe environment during visitationtimes (notify nurse prior to leaving bedside) 25. Consider appropriateness of medical or non-medical coding technician 26. Set up voiding schedule as appropriate [...] supplement as ordered 13. Collaborate with clinical lasting machine operator 14. Include patient/ patient's union contract representative in decisions related to nutrition Outcome: Progressing [...] Description: INTERVENTIONS: 1. Encourage patient or legal union contract representative to report early pain and ask for [...] per policy 9. Teach patient or legal union contract representative interventions for comforting Outcome: Progressing Note: Evaluation [...] at the bedside 7. Instruct patient/ patient union contract representative about use of safety devices 8. Include patient/ patient union contract representative in decisions related to safety Outcome: Progressing [...] hygiene technique. 7. Identify and instruct patient/patient union contract representative in use of appropriate isolation precautionsfor identified infection/symptoms. 8. Provide and discuss with patient/patient union contract representative on educational MDRO sheet. 9. Encourage and monitor nutritional status daily and consult lasting machine operator if indicated. 10. Implement neutropenic guidelines as needed. Outcome: Progressing Note: Evaluation of progress towards goal: Hand hygiene, monitor labs and vitals Problem: Knowledge Deficit Goal: Patient/patient union contract representative demonstrates understanding of disease process, treatment plan,medications, [...] Score of =/> 25 or indicated by [facility] Assessment Goal: Patient should be free from fall Description: Interventions: 1. [place] to environment 2. Hourly rounds addressing the [...] non-skid footwear 11. Teach patient and patient union contract representative to maintain environment for safety and engage [...] (cane, walker) within reach 19. Request patient union contract representative bring adaptive equipment/mobility aids from home or obtain and provide as needed 20. Consult pharmacy regarding effects of med's affecting mobility, cognition, and alternatives 21. Obtain physician order for PT if risk factors associated with mobility are present 22. Obtain physician order for OT as appropriate 23. Utilize diversional activities 24. Educate patient and patient union contract representative how to maintain a safe environment during visitationtimes (notify nurse prior to leaving bedside) 25. Consider appropriateness of medical or non-medical coding technician 26. Set up voiding schedule as appropriate [...] supplement as ordered 13. Collaborate with clinical lasting machine operator 14. Include patient/ patient's union contract representative in decisions related to nutrition Outcome: Progressing [...] patient need discharge transportation arranged? No [facility] In[facility] met with patient, introduced self, and explained [...] yesterday but information is not in chart. supervisor cook room contacted Registration again today to follow up with patient to get information. Patient reports her spouse took home her wallet so she was unable to provide cards to me. IMM given to patient for signature, copy placed in chart. PCP: ANN MARIE SIDHU MD Pharmacy: prefers [facility] PCP and pharmacy confirmed with [...] thakkar removal and possible discharge later today. Anntia Still MD Ob-Graduate Studies Dean Resident, PGY-2 * Op Note - Sarah Strange DO - 08/04/2025 9:37 AM EST Gynecologic Operative Note NAME: Eunice Anderson : 1955 PROCEDURE DATE: 08/04/2025 Pre-op Diagnosis: vaginal bleeding with acute blood loss anemia Post-op Diagnosis: same as above Procedure: Dilation and Curettage Surgeon: Dr. Dustin Santiago Safety Investigator: Dr Sarah Strange D.O. PGY-2 Anesthesia Type: General Complications: None Estimated Blood Loss: 200 mL IVF: 200ml UOP: 100ml Findings: atrophic vaginal canal with normal appearing cervix without lesions, 10cc blood clot at cervix, abnormal endometrial tissue evacuated with curettage Specimens: ID Type Source Tests Collected by Time A : ENDOMETRIAL CURRETTINGS Tissue Other SURGICAL PATHOLOGY Dustin Santiago MD 08/04/2025 1006 Indications for Procedure: [...] were correct x 2. Sarah Strange DO Hand Fretted Instrument Maker Resident, PGY-2 Cosigned by Dustin Santiago MD at 08/05/2025 12:29 PM EST Associated attestation - Dustin Santiago MD - 08/05/2025 12:29 PM EST [...] Plan of Treatment DateTypeDepartmentCare Team (Latest Contact Info)Wdjqkiqcdue92/24/2025 11:30 AM ESTHospital Encounter [facility] [address] [place] [phone] Justin Mackey MD [address] [place] [address] 08/20/2025 11:30 AM EST - 08/20/2025 12:30 PM ESTSurgery [facility] [address] [place] [address] Justin Mackey MD [address] [place] [address] INSERTION PORT A CATH [83636 (CPT??)]08/21/2025 8:00 AM ESTInfusion [facility] [address] [place] [phone] 08/21/2025 11:00 AM ESTOffice Visit [facility] - Medical Oncology [address] [place] [phone] Melinda Coffey PA [address] [place] [address] 09/10/2025 11:00 AM ESTInfusion [facility] - Medical Oncology [address] [place] [phone] 09/10/2025 1:30 PM ESTOffice Visit [facility], A Department of [facility] [address] [place] [phone] Annita Patton, CRITICAL CARE EDUCATOR-ADULT CARE MANAGER [address] [place] [address] 09/11/2025 8:00 AM ESTInfusion [facility] - Medical Oncology [address] [place] [phone] NameTypePriorityAssociated DiagnosesDate/TimeSurgical PathologyPathology and InvewmcjAoaifax06/08/2025 10:06 AM ESTNameTypePriorityAssociated DiagnosesOrder ScheduleSurgical PathologyPathology and CytologyRoutineRelease Upon Ordering for 1 Occurrences starting 08/04/2025, 1 completedNamePriorityAssociated Diagnoses Date/TimeINSERTION PORT A CATH needed for chemotherapy 08/20/2025 11:30 AM ESTdocumented as of this encounter Goals GoalPatient Goal TypeAssociated ProblemsRecent ProgressPatient-Stated?Author return home Milagros Escobedo RN Note: Evaluation of progress towards goal: patient plans to return home with family support documented as of this encounter Procedures Procedure NamePriorityDate/TimeAssociated DiagnosisCommentsCROSSMATCH RBCRoutine 08/11/2025 12:37 AM EST CBC WITH AUTO HWCHNKHTKNBPPllidvv66/13/2025 5:32 AM EST COMPREHENSIVE METABOLIC QCLJQXnhbegp77/13/2025 5:32 AM EST CBC WITH AUTO JNYQBAHOFJMKYehybaz54/12/2025 5:58 AM EST TYPE AND EKELJNIbrwttj55/12/2025 5:57 AM EST COMPREHENSIVE METABOLIC EDTALJgppunf78/12/2025 5:57 AM EST SURGICAL HEMYRALXGCxhrzho97/11/2025 3:42 PM EST NON-GYNECOLOGIC DZYCYDJYWfglsbq09/11/2025 2:44 PM EST TRANSFUSE RED BLOOD QPVXZGrftesh80/11/2025 2:23 PM ESTFLEXIBLE SIGMOIDOSCOPY 08/07/2025 1:30 PM EST ENDOMETRIAL CANCER Case Notes [facility] EPIC 2W MOVE UP TO 1130 Special Needs MOVE UP TO 1130 DAVINCI HYSTERECTOMY SALPINGO VYXYJBZIAJFS11/11/2025 1:30 PM EST ENDOMETRIAL CANCER Case Notes [place] EPIC 2W MOVE UP TO 1130 Special Needs MOVE UP TO 1130 CBC WITH AUTO MSJDJRIYVXLQBuaolrj09/11/2025 5:40 AM EST COMPREHENSIVE METABOLIC MOWKAJjfiyon80/11/2025 5:40 AM EST CROSSMATCH BTSEuvlwne28/10/2025 6:37 AM ESTCBC WITH AUTO DIFFERENTIALRoutine 08/06/2025 6:23 AM EST COMPREHENSIVE METABOLIC ODUEPZqfnmeu63/10/2025 6:23 AM EST COMPREHENSIVE METABOLIC SWQRDPjmmcpg25/09/2025 8:[address] CHEST W UCZYFbpvear61/09/2025 12:11 PM EST CBC WITH AUTO POFCMFXSEJMITurmnhd65/09/2025 4:02 AM EST COMPREHENSIVE METABOLIC XPXOEMxbpsoy30/09/2025 4:02 AM EST CBC WITH AUTO IQAMHXNQNMDFFujyjos00/08/2025 12:18 PM EST TRANSFUSE RED BLOOD JNAPADhfhzhm47/08/2025 10:00 AM ESTPR HYSTEROSCOPY,W/ENDO BX 08/04/2025 9:37 AM EST vaginal bleed TRANSFUSE RED BLOOD WETBDLuohruo01/08/2025 8:39 AM ESTREPEATED ABORHRoutine 08/04/2025 8:27 AM ESTREPEATED MEYHNYnltjwn82/08/2025 7:41 AM EST CROSSMATCH COYPiauvyn62/08/2025 5:30 AM EST CBC WITH AUTO TNJDYBMCEXLBOzmrjcn39/08/2025 5:30 AM EST BBAJBsygxxk19/08/2025 5:30 AM EST PROTIME & RYTSlrtbqw47/08/2025 5:30 AM EST LJTPCJUIKZZgnhgrc86/08/2025 5:30 AM EST TYPE AND RHTVONCnmysmw41/08/2025 5:30 AM EST COMPREHENSIVE METABOLIC TMILFCxhhgkb51/08/2025 5:30 AM EST PULSE OXIMETRY, LNFKOxbhjil91/08/2025 3:38 AM ESTdocumented in this encounter Results * Crossmatch RBC:Number of Units: 2 (08/11/2025 12:37 AM EST)ComponentValueRef RangeTest MethodAnalysis TimePerformed AtPathologist SignatureBlood component [id number] BANK - WELLSKYUnit [id number] BANK - WELLSKY Unit ABOOBLOOD BANK - WELLSKYUnit RHPOSBLOOD BANK - WELLSKYCrossmatch CompatibleBLOOD BANK - WELLSKYStatus of unitTRANSFUSEDBLOOD BANK - WELLSKY Expiration [id number] BANK - WELLSKYBB Type Wgjkzcb0550OJZZC BANK - WELLSMAGDALENASpecimen (Source)Anatomical Location / LateralityCollection Method / VolumeCollection TimeReceived TimeBloodVenous blood / Pvwggvb3208/11/2025 12:37 AM EST08/04/2025 5:47 AM EST Narrative Authorizing ProviderResult TypeResult StatusKassidy Rejent MDBLOOD BANK PRODUCT ORDERABLESEdited Result - FinalPerforming OrganizationAddressCity/State/ZIP Code Phone Number [facility] * (ABNORMAL) CBC auto differential (08/09/2025 5:32 AM EST)ComponentValueRef RangeTest MethodAnalysis TimePerformed AtPathologist WrhwvvcdpSCQ88.1(H)4 - 11 X10^9/L110/09/2024 7:00 AM [facility] LABORATORYRBC Count2.98 (L)3.8 - 5.2 X10^12/L110/09/2024 7:00 AM [facility] Hemoglobin8.9(L)11.7 - 15.5 g/dL08/09/2025 7:00 AM [facility] QBZXJKYIIPCjgyromjlw40.3(L)35 - 47 %08/09/2025 7:00 AM [facility] TGFSVHQXZEZTL0488 - 100 fL08/09/2025 7:00 AM [facility] IFZVQITJQDMQS75.027 - 34 pg08/09/2025 7:00 AM [facility] MSHEXMDLHZVIPD23.032 - 36 g/dL08/09/2025 7:00 AM [facility] DYVBILFIETDXO83.7(H)11.5 - 15 %08/09/2025 7:00 AM [facility] LABORATORYPlatelet Msypa892310 - 450 X10^9/L110/09/2024 7:00 AM [facility] LABORATORYMPV7.97 - 12 fL08/09/2025 7:00 AM [facility] LABORATORYNeutrophils %75.6%08/09/2025 7:00 AM [facility] LABORATORYComment:This is an appended report. These results have been appended to a previously preliminary verified report.Lymphocytes % 11.1%08/09/2025 7:00 AM [facility] LABORATORYComment:This is an appended report. These results have been appended to a previously preliminary verified report.Monocytes %6.4%08/09/2025 7:00 AM [facility] LABORATORYComment:This is an appended report. These results have been appended to a previously preliminary verified report.Eosinophils % 5.8%08/09/2025 7:00 AM [facility] LABORATORYComment:This is an appended report. These results have been appended to a previously preliminary verified report.Basophils %1.1%08/09/2025 7:00 AM [facility] LABORATORYComment:This is an appended report. These results have been appended to a previously preliminary verified report.Neutrophils Absolute (A)10.7(H)1.5 - 6.6 X10^9/L110/09/2024 7:00 AM [facility] LABORATORYComment:This is an appended report. These results have been appended to a previously preliminary verified report.Lymphocytes Absolute1.6 1.0 - 3.5 X10^9/L110/09/2024 7:00 AM [facility] Comment:This is an appended report. These results have been appended to a previously preliminary verified report.Monocytes Absolute0.90.0 - 0.9 X10^9/L 08/09/2025 7:00 AM [facility] LABORATORYComment:This is an appended report. These results have been appended to a previously preliminary verified report.Eosinophils Absolute0.8(H)0.0 - 0.4 X10^9/L110/09/2024 7:00 AM [facility] LABORATORYComment:This is an appended report. These results have been appended to a previously preliminary verified report. Basophils Absolute0.10.0 - 0.2 X10^9/L110/09/2024 7:00 AM [facility] LABORATORYComment:This is an appended report. These results have been appended to a previously preliminary verified report.Differential Type AUTOMATED BJHGOVENJSEV85/13/2025 7:00 AM [facility] LABORATORYComment:This is an appended report. These results have been appended to a previously preliminary verified report.Specimen (Source)Anatomical Location / LateralityCollection Method / VolumeCollection TimeReceived Time BloodVenous blood / UnknownVenipuncture / Hjqtnov3508/09/2025 5:32 AM EST 08/09/2025 5:54 AM EST Narrative Authorizing ProviderResult TypeResult StatusHala Magdaleno PASCUAL BLOOD ORDERABLESFinal ResultPerforming OrganizationAddressCity/State/ZIP CodePhone Number [facility] [address] [place] [address], * (ABNORMAL) Comprehensive metabolic panel (08/09/2025 5:32 AM EST)Component ValueRef RangeTest MethodAnalysis TimePerformed AtPathologist SignatureSODIUM 383103 - 146 mmol/L110/09/2024 6:26 AM [facility] POTASSIUM3.3(L)3.5 - 5.0 mmol/L110/09/2024 6:26 AM [facility] SVBRXFNPEBEHNQKSWI92251 - 109 mmol/L110/09/2024 6:26 AM [facility] LABORATORYCARBON YJULLJP0822 - 32 mmol/L110/09/2024 6:26 AM [facility] LABORATORYANION RMM298 - 15 mmol/L110/09/2024 6:26 AM EST [facility] LABORATORYBLOOD UREA IPQVSITE086 - 27 mg/dL08/09/2025 6:26 AM [facility] LABORATORYCREATININE0.650.40 - 1.00 mg/dL 08/09/2025 6:26 AM [facility] LABORATORYComment:METHOD TRACEABLE TO IDMS TGOKZTXGMMEXHAZ4495 - 99 mg/dL08/09/2025 6:26 AM [facility] LABORATORYCALCIUM8.1(L)8.5 - 10.5 mg/dL08/09/2025 6:26 AM [facility] LABORATORYTOTAL PROTEIN5.4(L)6.0 - 8.0 g/dL 08/09/2025 6:26 AM [facility] LABORATORYALBUMIN3.0(L)3.2 - 5.3 g/dL08/09/2025 6:26 AM [facility] LABORATORYALKALINE PCCLDIFQDOK8888 - 130 U/L110/09/2024 6:26 AM [facility] VAXVCWFNLDIRI19<=41 U/L110/09/2024 6:26 AM [facility] LABORATORYALT6<=31 U/L110/09/2024 6:26 AM [facility] LABORATORYBILIRUBIN,TOTAL0.50.3 - 1.2 mg/dL08/09/2025 6:26 AM [facility] LABORATORYEGFR Non-Race Dependent>90>=60 ml/min/1.73sq.m 08/09/2025 6:26 AM [facility] LABORATORYComment: Reported eGFR is based on the CKD-EPI 2020 equation that does not use a race coefficient. Specimen (Source)Anatomical Location / LateralityCollection Method / Volume Collection TimeReceived TimeBloodVenous blood / UnknownVenipuncture / Unknown 08/09/2025 5:32 AM EST08/09/2025 5:54 AM EST Narrative Authorizing ProviderResult TypeResult StatusHala Magdaleno PASCUAL BLOOD ORDERABLESFinal ResultPerforming OrganizationAddressCity/State/ZIP CodePhone Number [facility] [address] [place] [address], * (ABNORMAL) CBC auto differential (08/08/2025 5:58 AM EST)ComponentValueRef RangeTest MethodAnalysis TimePerformed AtPathologist DfpcggftwNVA61.1(H)4 - 11 X10^9/L110/08/2024 7:17 AM [facility] LABORATORYRBC Count2.95 (L)3.8 - 5.2 X10^12/L110/08/2024 7:17 AM [facility] Hemoglobin8.5(L)11.7 - 15.5 g/dL08/08/2025 7:17 AM [facility] VYVSMJGTMOSyhosbwdbt23.1(L)35 - 47 %08/08/2025 7:17 AM [facility] SUYQJBKYKKBTU5127 - 100 fL08/08/2025 7:17 AM [facility] WEYYYKZOEQHCW76.727 - 34 pg08/08/2025 7:17 AM [facility] NNSOFRVAPIWAKL33.532 - 36 g/dL08/08/2025 7:17 AM [facility] MNZCBEKWSQVDD20.7(H)11.5 - 15 %08/08/2025 7:17 AM [facility] LABORATORYPlatelet Qhifv822007 - 450 X10^9/L110/08/2024 7:17 AM [facility] LABORATORYMPV8.17 - 12 fL08/08/2025 7:17 AM [facility] LABORATORYNeutrophils %88.6%08/08/2025 7:17 AM [facility] LABORATORYComment:This is an appended report. These results have been appended to a previously preliminary verified report.Lymphocytes % 5.1%08/08/2025 7:17 AM [facility] LABORATORYComment:This is an appended report. These results have been appended to a previously preliminary verified report.Monocytes %5.9%08/08/2025 7:17 AM [facility] LABORATORYComment:This is an appended report. These results have been appended to a previously preliminary verified report.Eosinophils % 0.1%08/08/2025 7:17 AM [facility] LABORATORYComment:This is an appended report. These results have been appended to a previously preliminary verified report.Basophils %0.3%08/08/2025 7:17 AM [facility] LABORATORYComment:This is an appended report. These results have been appended to a previously preliminary verified report.Neutrophils Absolute (A)16.0(H)1.5 - 6.6 X10^9/L110/08/2024 7:17 AM [facility] LABORATORYComment:This is an appended report. These results have been appended to a previously preliminary verified report.Lymphocytes Absolute0.9 (L)1.0 - 3.5 X10^9/L110/08/2024 7:17 AM [facility] Comment:This is an appended report. These results have been appended to a previously preliminary verified report.Monocytes Absolute1.1(H)0.0 - 0.9 X10^9/L110/08/2024 7:17 AM [facility] LABORATORYComment:This is an appended report. These results have been appended to a previously preliminary verified report.Eosinophils Absolute0.00.0 - 0.4 X10^9/L110/08/2024 7:17 AM [facility] LABORATORYComment:This is an appended report. These results have been appended to a previously preliminary verified report.Basophils Absolute0.00.0 - 0.2 X10^9/L110/08/2024 7:17 AM [facility] LABORATORYComment:This is an appended report. These results have been appended to a previously preliminary verified report.Differential TypeAUTOMATED SGUDOVNQUGFZ44/12/2025 7:17 AM [facility] LABORATORYComment:This is an appended report. These results have been appended to a previously preliminary verified report.Specimen (Source)Anatomical Location / LateralityCollection Method / VolumeCollection TimeReceived Time BloodVenous blood / UnknownVenipuncture / Cioujuf1508/08/2025 5:58 AM EST 08/08/2025 6:30 AM EST Narrative Authorizing ProviderResult TypeResult StatusHala Magdaleno Sam MDLAB BLOOD ORDERABLESFinal ResultPerforming OrganizationAddressCity/State/ZIP CodePhone Number [facility] [address] [place] [address], * (ABNORMAL) Comprehensive metabolic panel (08/08/2025 5:57 AM EST)Component ValueRef RangeTest MethodAnalysis TimePerformed AtPathologist SignatureSODIUM 135272 - 146 mmol/L110/08/2024 7:06 AM [facility] POTASSIUM4.03.5 - 5.0 mmol/L110/08/2024 7:06 AM [facility] HBIZKEOZJEOHWLWVEA39111 - 109 mmol/L110/08/2024 7:06 AM [facility] LABORATORYCARBON OMEEQVD3798 - 32 mmol/L110/08/2024 7:06 AM [facility] LABORATORYANION GAP95 - 15 mmol/L110/08/2024 7:06 AM [facility] LABORATORYBLOOD UREA TXEKZXLG656 - 27 mg/dL08/08/2025 7:06 AM [facility] LABORATORYCREATININE0.610.40 - 1.00 mg/dL 08/08/2025 7:06 AM [facility] LABORATORYComment:METHOD TRACEABLE TO IDAL AOLNXXFYKZVNVEG086(H)65 - 99 mg/dL08/08/2025 7:06 AM [facility] LABORATORYCALCIUM8.58.5 - 10.5 mg/dL08/08/2025 7:06 AM [facility] LABORATORYTOTAL PROTEIN5.4(L)6.0 - 8.0 g/dL 08/08/2025 7:06 AM [facility] LABORATORYALBUMIN3.23.2 - 5.3 g/dL08/08/2025 7:06 AM [facility] LABORATORYALKALINE ISRHVLISPGX9446 - 130 U/L110/08/2024 7:06 AM [facility] RPCDDEMNXMQQT65<=41 U/L110/08/2024 7:06 AM [facility] LABORATORYALT3<=31 U/L110/08/2024 7:06 AM [facility] LABORATORYBILIRUBIN,TOTAL0.80.3 - 1.2 mg/dL08/08/2025 7:06 AM [facility] LABORATORYEGFR Non-Race Dependent>90>=60 ml/min/1.73sq.m 08/08/2025 7:06 AM [facility] LABORATORYComment: Reported eGFR is based on the CKD-EPI 2020 equation that does not use a race coefficient. Specimen (Source)Anatomical Location / LateralityCollection Method / Volume Collection TimeReceived TimeBloodVenous blood / UnknownVenipuncture / Unknown 08/08/2025 5:57 AM EST08/08/2025 6:30 AM EST Narrative Authorizing ProviderResult TypeResult StatusBrittnee Sam MDLAB BLOOD ORDERABLESFinal ResultPerforming OrganizationAddressCity/State/ZIP CodePhone Number [facility] [address] [place] [address], * Type and screen(includes indirect grady) (08/08/2025 5:57 AM EST)Component ValueRef RangeTest MethodAnalysis TimePerformed AtPathologist SignatureABOO 08/08/2025 7:52 AM ESTTTH BB - FJWUUYSKKXomqdhsi64/12/2025 7:52 AM ESTTTH BB - WELLSKYAntibody LtlryqBlaowmdq82/12/2025 7:52 AM ESTTTH BB - WELLSKYSpecimen (Source)Anatomical Location / LateralityCollection Method / VolumeCollection TimeReceived TimeBloodVenous blood / UnknownVenipuncture / Swexoei8908/08/2025 5:57 AM EST08/08/2025 6:54 AM EST Narrative Authorizing ProviderResult TypeResult StatusDustin Santiago MDBLOOD BANK TEST ORDERABLESEdited Result - FinalPerforming OrganizationAddressCity/State/ZIP Code Phone Number [facility] [address] [place] [address], * Surgical Pathology (08/07/2025 3:42 PM EST)ComponentValueRef RangeTest Method Analysis TimePerformed AtPathologist SignatureCase ReportSurgical Pathology Report ? Case: [id number] ? Authorizing Provider: ??Dennis Monson MD ?Collected: ? 08/07/2025 1542 ? [facility] ??Received: ?08/07/2025 1647 ? - Surgery ? Pathologist: ? Darryl Alcantara MD ? Specimens: ?? 1) - Uterus, Fallopian Tube, Ovary, UTERUS, CERVIX, BILATERAL TUBES AND OVARIES ? 2) - Pelvis, LEFT POSTERIOR PELVIS BIOPSY ? 08/14/2025 2:47 PM [facility] LABORATORYFinal Diagnosis1. Uterus, fallopian tubes and ovaries, hysterectomy and bilateral salpingo-oophorectomy: ENDOMETRIOID ADENOCARCINOMA of endometrium, grade 2, with deep myometrial invasion. Carcinoma invades lower uterine segment stroma. Positive cervical stroma, uterine serosa (implants), bilateral mesosalpinx and left fallopian tube. Focal lymphovascular invasion. Endometriosis of right fallopian tube serosa. Negative ovaries. Negative parametrial/paracervical margins. 2. Left posterior pelvis, biopsy: Metastatic carcinoma.08/14/2025 2:47 PM [facility] at 1447 ESTGross Description1. Received in [...] 1 minute Total fixation time: 27 hours (18,ns,[id number], m8.1) 2. Received in formalin labeled ANDERSON, left posterior pelvis biopsy is pink-lambert feathery and friable soft tissue admixed with hemorrhagic material, 2.5 x 2.5 x 1.2 cm in aggregate. The specimen is submitted entirely in cassettes A- C. (3,ns,[id number], m8.1) 08/14/2025 2:47 PM [facility] LABORATORYSynoptic ChecklistENDOMETRIUM ENDOMETRIUM - All Specimens AJCC [...] (no nodes submitted or found)08/14/2025 2:47 PM [facility] LABORATORYEmbedded Vhlnhn2408/14/2025 2:47 PM [facility] LABORATORYSpecimen (Source)Anatomical Location / LateralityCollection Method / VolumeCollection TimeReceived TimeTissue (Uterus, Fallopian Tube, Ovary)08/07/2025 3:42 PM EST08/07/2025 4:47 PM ESTComment:Pre-op diagnosis: ENDOMETRIAL CANCERTissue specimen (specimen)Pelvic region / Zkllcxd5608/07/2025 3:43 PM EST08/07/2025 4:47 PM ESTComment:Pre-op diagnosis: ENDOMETRIAL CANCER Narrative Authorizing ProviderResult TypeResult StatusAdawild oMnson MDPATHOLOGY/CYTOLOGY ORDERABLESFinal ResultPerforming OrganizationAddressCity/State/ZIP CodePhone Number [facility] [address] [place] [address], * Transfuse RBC:1 Unit (08/07/2025 2:56 PM EST) Narrative Authorizing ProviderResult TypeResult StatusAleia Monica Santiago MDBLOOD TRANSFUSION ORDERABLESFinal Result * Transfuse RBC:1 Unit (08/07/2025 2:56 PM EST) Narrative Authorizing ProviderResult TypeResult StatusAleia K Catherine MDBLOOD TRANSFUSION ORDERABLESFinal Result * Cytology non-gynecologic (08/07/2025 2:44 PM EST)ComponentValueRef RangeTest MethodAnalysis TimePerformed AtPathologist SignatureCase ReportMedical Cytology Report ? Case: [id number] ? Authorizing Provider: ??Dennis Monson MD ?Collected: ? 08/07/2025 1444 ? [facility] ??Received: ?08/07/2025 1501 ? - Surgery ? Pathologist: ? Gene K MD Quinton ? Specimen: ?Pelvis, Pelvis fluid ? 08/14/2025 2:58 PM [facility] LABORATORYFinal DiagnosisPelvic fluid: Positive for Carcinoma, rare cells.08/14/2025 2:58 PM [facility] at 1458 ESTGross DescriptionReceived was 20ml of red fluid unfixed, labeled as Anderson, pelvis . CytoLyt added in lab. Specimen placed in formalin at 17:00 and had a total fixation time of 8 hours. 08/14/2025 2:58 PM [facility] LABORATORYEmbedded Images 08/14/2025 2:58 PM [facility] LABORATORYSpecimen (Source) Anatomical Location / LateralityCollection Method / VolumeCollection Time Received TimeFluidPelvic region / Nupqmyh4408/07/2025 2:44 PM EST08/07/2025 3:01 PM ESTComment:Pre-op diagnosis: ENDOMETRIAL CANCER Narrative Authorizing ProviderResult TypeResult StatusAdam Raven Monson MDPATHOLOGY/CYTOLOGY ORDERABLESFinal ResultPerforming OrganizationAddressCity/State/ZIP CodePhone Number [facility] [address] [place] [phone], * (ABNORMAL) Comprehensive metabolic panel (08/07/2025 5:40 AM EST)Component ValueRef RangeTest MethodAnalysis TimePerformed AtPathologist SignatureSODIUM 486675 - 146 mmol/L110/07/2024 6:42 AM [facility] POTASSIUM3.2(L)3.5 - 5.0 mmol/L110/07/2024 6:42 AM [facility] SWIAYUSSGVJEWWZYNU543(H)98 - 109 mmol/L110/07/2024 6:42 AM [facility] LABORATORYCARBON NBILWCZ1979 - 32 mmol/L110/07/2024 6:42 AM [facility] LABORATORYANION GAP85 - 15 mmol/L110/07/2024 6:42 AM EST [facility] LABORATORYBLOOD UREA KQJKVFMI511 - 27 mg/dL08/07/2025 6:42 AM [facility] LABORATORYCREATININE0.670.40 - 1.00 mg/dL 08/07/2025 6:42 AM [facility] LABORATORYComment:METHOD TRACEABLE TO IDAL JKMUPFKYZEXPIPB760(H)65 - 99 mg/dL08/07/2025 6:42 AM EST [facility] LABORATORYCALCIUM8.0(L)8.5 - 10.5 mg/dL08/07/2025 6:42 AM [facility] LABORATORYTOTAL PROTEIN5.6(L)6.0 - 8.0 g/dL08/07/2025 6:42 AM [facility] LABORATORYALBUMIN3.0(L)3.2 - 5.3 g/dL08/07/2025 6:42 AM [facility] LABORATORYALKALINE IYDWJRGKFQP0628 - 130 U/L110/07/2024 6:42 AM [facility] PEYEHUWWTVXXC15<=41 U/L110/07/2024 6:42 AM [facility] LABORATORYALT4<=31 U/L110/07/2024 6:42 AM [facility] LABORATORYBILIRUBIN,TOTAL0.70.3 - 1.2 mg/dL08/07/2025 6:42 AM [facility] LABORATORYEGFR Non-Race Dependent>90>=60 ml/min/1.73sq.m 08/07/2025 6:42 AM [facility] LABORATORYComment: Reported eGFR is based on the CKD-EPI 2020 equation that does not use a race coefficient. Specimen (Source)Anatomical Location / LateralityCollection Method / Volume Collection TimeReceived TimeBloodVenous blood / UnknownVenipuncture / Unknown 08/07/2025 5:40 AM EST08/07/2025 6:04 AM EST Narrative Authorizing ProviderResult TypeResult StatusHala Magdaleno PASCUAL BLOOD ORDERABLESFinal ResultPerforming OrganizationAddressCity/State/ZIP CodePhone Number [facility] [address] [place] [address], * (ABNORMAL) CBC auto differential (08/07/2025 5:40 AM EST)ComponentValueRef RangeTest MethodAnalysis TimePerformed AtPathologist NocmqycjeUST31.4(H)4 - 11 X10^9/L110/07/2024 6:49 AM [facility] LABORATORYRBC Count2.87 (L)3.8 - 5.2 X10^12/L110/07/2024 6:49 AM [facility] Hemoglobin8.3(L)11.7 - 15.5 g/dL08/07/2025 6:49 AM [facility] CLYUMOTBYJLftmbkckob33.3(L)35 - 47 %08/07/2025 6:49 AM [facility] IMMGEQVMZRVBS1845 - 100 fL08/07/2025 6:49 AM [facility] IBFWZUOLIQZWP86.027 - 34 pg08/07/2025 6:49 AM [facility] XMHUAVHQGCRVCD05.932 - 36 g/dL08/07/2025 6:49 AM [facility] FIWQKWMJZGZEL78.1(H)11.5 - 15 %08/07/2025 6:49 AM [facility] LABORATORYPlatelet Ppzxp807681 - 450 X10^9L110/07/2024 6:49 AM [facility] LABORATORYMPV7.87 - 12 fL08/07/2025 6:49 AM [facility] LABORATORYBands %1%08/07/2025 6:49 AM [facility] LABORATORYComment:This is an appended report. These results have been appended to a previously preliminary verified report.Neutrophils %84% 08/07/2025 6:49 AM [facility] LABORATORYComment:This is an appended report. These results have been appended to a previously preliminary verified report.Lymphocytes %9%08/07/2025 6:49 AM [facility] LABORATORYComment:This is an appended report. These results have been appended to a previously preliminary verified report.Monocytes %5%08/07/2025 6:49 AM [facility] LABORATORYComment:This is an appended report. These results have been appended to a previously preliminary verified report. Eosinophils %1%08/07/2025 6:49 AM [facility] Comment:This is an appended report. These results have been appended to a previously preliminary verified report.Neutrophils Absolute (M)15.6(H)1.5 - 6.6 X10^9/L110/07/2024 6:49 AM [facility] LABORATORYComment: This is an appended report. These results have been appended to a previously preliminary verified report.Lymphocytes Absolute1.71.0 - 3.5 X10^9/L110/07/2024 6:49 AM [facility]ORATORYComment:This is an appended report. These results have been appended to a previously preliminary verified report.Monocytes Absolute0.90.0 - 0.9 X10^9/L110/07/2024 6:49 AM [facility] LABORATORYComment:This is an appended report. These results have been appended to a previously preliminary verified report.Eosinophils Absolute0.20.0 - 0.4 X10^9/L110/07/2024 6:49 AM [facility] LABORATORYComment:This is an appended report. These results have been appended to a previously preliminary verified report.Polychromasia1+08/07/2025 6:49 AM [facility] LABORATORYComment:This is an appended report. These results have been appended to a previously preliminary verified report. Differential TypeMANUAL AAXLIHVBLHHI56/11/2025 6:49 AM [facility] LABORATORYComment:This is an appended report. These results have been appended to a previously preliminary verified report.Specimen (Source) Anatomical Location / LateralityCollection Method / VolumeCollection Time Received TimeBloodVenous blood / UnknownVenipuncture / Tfjwwtn1808/07/2025 5:40 AM EST08/07/2025 6:04 AM EST Narrative Authorizing ProviderResult TypeResult StatusHalcarey PASCUAL BLOOD ORDERABLESFinal ResultPerforming OrganizationAddressCity/State/ZIP CodePhone Number [facility] [address] [place] [address], * Crossmatch RBC:Number of Units: 1 (08/06/2025 6:37 AM EST)Specimen (Source) Anatomical Location / LateralityCollection Method / VolumeCollection Time Received TimeBloodVenous blood / Xpkcxhx7508/06/2025 6:37 AM EST Narrative Authorizing ProviderResult TypeResult StatusKassidy Cheko HERNÁNDEZBLOOD BANK PRODUCT ORDERABLESFinal ResultPerforming OrganizationAddressCity/State/ZIP CodePhone Number [facility] * (ABNORMAL) Comprehensive metabolic panel (08/06/2025 6:23 AM EST)Component ValueRef RangeTest MethodAnalysis TimePerformed AtPathologist SignatureSODIUM [id number] - 146 mmol/L110/06/2024 7:33 AM [facility] POTASSIUM3.63.5 - 5.0 mmol/L110/06/2024 7:33 AM [facility] DZZIMDDFCINHSCDQFG346(H)98 - 109 mmol/L110/06/2024 7:33 AM [facility] LABORATORYCARBON LZCHDNJ33(L)22 - 32 mmol/L110/06/2024 7:33 AM [facility] LABORATORYANION BEM931 - 15 mmol/L110/06/2024 7:33 AM [facility] LABORATORYBLOOD UREA RDOCVSAD066 - 27 mg/dL08/06/2025 7:33 AM [facility] LABORATORYCREATININE0.680.40 - 1.00 mg/dL 08/06/2025 7:33 AM [facility] LABORATORYComment:METHOD TRACEABLE TO IDAL THZOFSAFTEFEPGW440(H)65 - 99 mg/dL08/06/2025 7:33 AM [facility] LABORATORYCALCIUM8.1(L)8.5 - 10.5 mg/dL08/06/2025 7:33 AM [facility] LABORATORYTOTAL PROTEIN5.6(L)6.0 - 8.0 g/dL08/06/2025 7:33 AM [facility] LABORATORYALBUMIN3.23.2 - 5.3 g/dL08/06/2025 7:33 AM [facility] LABORATORYALKALINE NKXUHQIHEPY7755 - 130 U/L110/06/2024 7:33 AM [facility] OCOBBRKUBZPND13<=41 U/L110/06/2024 7:33 AM [facility] LABORATORYALT5<=31 U/L110/06/2024 7:33 AM [facility] LABORATORYBILIRUBIN,TOTAL0.70.3 - 1.2 mg/dL08/06/2025 7:33 AM [facility] LABORATORYEGFR Non-Race Dependent>90>=60 ml/min/1.73sq.m 08/06/2025 7:33 AM [facility] LABORATORYComment: Reported eGFR is based on the CKD-EPI 2020 equation that does not use a race coefficient. Specimen (Source)Anatomical Location / LateralityCollection Method / Volume Collection TimeReceived TimeBloodVenous blood / UnknownVenipuncture / Unknown 08/06/2025 6:23 AM EST08/06/2025 7:03 AM EST Narrative Authorizing ProviderResult TypeResult StatusHala Magdaleno PASCUAL BLOOD ORDERABLESFinal ResultPerforming OrganizationAddressCity/State/ZIP CodePhone Number [facility] [address] [place] [phone], * (ABNORMAL) CBC auto differential (08/06/2025 6:23 AM EST)ComponentValueRef RangeTest MethodAnalysis TimePerformed AtPathologist TuowbfijjNAW06.4(H)4 - 11 X10^9/L110/06/2024 8:07 AM [facility] LABORATORYRBC Count2.87 (L)3.8 - 5.2 X10^12/L110/06/2024 8:07 AM [facility] Hemoglobin8.3(L)11.7 - 15.5 g/dL08/06/2025 8:07 AM [facility] WTWBYIHOYFOpiquzyzuk86.4(L)35 - 47 %08/06/2025 8:07 AM [facility] GMNIGYYSBNCFX6015 - 100 fL08/06/2025 8:07 AM [facility] SYOOUHODOOHIY45.027 - 34 pg08/06/2025 8:07 AM [facility] ORLXRRBNWSKBYF10.832 - 36 g/dL08/06/2025 8:07 AM [facility] YVBGRIKXORBNX46.2(H)11.5 - 15 %08/06/2025 8:07 AM [facility] LABORATORYPlatelet Sfthh404435 - 450 X10^9/L110/06/2024 8:07 AM [facility] LABORATORYMPV8.27 - 12 fL08/06/2025 8:07 AM [facility] LABORATORYNeutrophils %78%08/06/2025 8:07 AM [facility] LABORATORYComment:This is an appended report. These results have been appended to a previously preliminary verified report.Lymphocytes %16 %08/06/2025 8:07 AM [facility] LABORATORYComment:This is an appended report. These results have been appended to a previously preliminary verified report.Monocytes %5%08/06/2025 8:07 AM [facility] LABORATORYComment:This is an appended report. These results have been appended to a previously preliminary verified report.Eosinophils %1%08/06/2025 8:07 AM [facility] LABORATORYComment:This is an appended report. These results have been appended to a previously preliminary verified report. Neutrophils Absolute (M)16.7(H)1.5 - 6.6 X10^9/L110/06/2024 8:07 AM [facility] LABORATORYComment:This is an appended report. These results have been appended to a previously preliminary verified report.Lymphocytes Absolute3.41.0 - 3.5 X10^9/L110/06/2024 8:07 AM [facility] LABORATORYComment:This is an appended report. These results have been appended to a previously preliminary verified report.Monocytes Absolute1.1(H)0.0 - 0.9 X10^9/L110/06/2024 8:07 AM [facility] LABORATORYComment:This is an appended report. These results have been appended to a previously preliminary verified report.Eosinophils Absolute0.20.0 - 0.4 X10^9/L110/06/2024 8:07 AM [facility] LABORATORYComment:This is an appended report. These results have been appended to a previously preliminary verified report.Polychromasia1+08/06/2025 8:07 AM [facility] LABORATORYComment:This is an appended report. These results have been appended to a previously preliminary verified report.Differential TypeMANUAL RLMLCEOSLILC58/10/2025 8:07 AM [facility] LABORATORYComment: This is an appended report. These results have been appended to a previously preliminary verified report.Specimen (Source)Anatomical Location / Laterality Collection Method / VolumeCollection TimeReceived TimeBloodVenous blood / UnknownVenipuncture / Twiaujc3708/06/2025 6:23 AM EST08/06/2025 7:03 AM EST Narrative Authorizing ProviderResult TypeResult StatusHala Magdaleno PASCUAL BLOOD ORDERABLESFinal ResultPerforming OrganizationAddressCity/State/ZIP CodePhone Number [facility] [address] [place] [address], * (ABNORMAL) Comprehensive metabolic panel (08/05/2025 8:11 PM EST)Component ValueRef RangeTest MethodAnalysis TimePerformed AtPathologist SignatureSODIUM 770990 - 146 mmol/L110/05/2024 8:57 PM [facility] POTASSIUM3.3(L)3.5 - 5.0 mmol/L110/05/2024 8:57 PM [facility] PUJCQMNLHJSBEKIINB467(H)98 - 109 mmol/L110/05/2024 8:57 PM [facility] LABORATORYCARBON UPKKJCP43(L)22 - 32 mmol/L110/05/2024 8:57 PM [facility] LABORATORYANION GAP75 - 15 mmol/L110/05/2024 8:57 PM [facility] LABORATORYBLOOD UREA ILHWWKMZ397 - 27 mg/dL08/05/2025 8:57 PM [facility] LABORATORYCREATININE0.680.40 - 1.00 mg/dL 08/05/2025 8:57 PM [facility] LABORATORYComment:METHOD TRACEABLE TO IDMS IUBGMSQMIBJFKCN417(H)65 - 99 mg/dL08/05/2025 8:57 PM EST [facility] LABORATORYCALCIUM8.0(L)8.5 - 10.5 mg/dL08/05/2025 8:57 PM [facility] LABORATORYTOTAL PROTEIN5.4(L)6.0 - 8.0 g/dL08/05/2025 8:57 PM [facility] LABORATORYALBUMIN3.0(L)3.2 - 5.3 g/dL08/05/2025 8:57 PM [facility] LABORATORYALKALINE WMVFJHYDYQU7157 - 130 U/L110/05/2024 8:57 PM [facility] XDHCGPCHIRQLN07<=41 U/L110/05/2024 8:57 PM [facility] LABORATORYALT5<=31 U/L110/05/2024 8:57 PM [facility] LABORATORYBILIRUBIN,TOTAL0.60.3 - 1.2 mg/dL08/05/2025 8:57 PM [facility] LABORATORYEGFR Non-Race Dependent>90>=60 ml/min/1.73sq.m 08/05/2025 8:57 PM [facility] LABORATORYComment: Reported eGFR is based on the CKD-EPI 2020 equation that does not use a race coefficient. Specimen (Source)Anatomical Location / LateralityCollection Method / Volume Collection TimeReceived TimeBloodVenous blood / UnknownVenipuncture / Unknown 08/05/2025 8:11 PM EST08/05/2025 8:30 PM EST Narrative Authorizing ProviderResult TypeResult StatusHala Magdaleno PASCUAL BLOOD ORDERABLESFinal ResultPerforming OrganizationAddressCity/State/ZIP CodePhone Number [facility] [address] [place] [address], * CT chest with contrast (08/05/2025 12:11 [...] 7:20 AM Authorizing ProviderResult TypeResult StatusAlexandria Lasalla [facility] ORDERABLESFinal Result * (ABNORMAL) CBC auto differential (08/05/2025 4:02 AM EST)ComponentValueRef RangeTest MethodAnalysis TimePerformed AtPathologist JyglhdtqvGDT96.8(H)4 - 11 X10^9/L110/05/2024 6:43 AM [facility] LABORATORYRBC Count2.76 (L)3.8 - 5.2 X10^12/L110/05/2024 6:43 AM [facility] Hemoglobin8.0(L)11.7 - 15.5 g/dL08/05/2025 6:43 AM [facility] DXGIZRCFSVElzgudpsiy68.4(L)35 - 47 %08/05/2025 6:43 AM [facility] LVQSNBBBLWYDP5948 - 100 fL08/05/2025 6:43 AM [facility] GEGFJPWHIMMNQ02.127 - 34 pg08/05/2025 6:43 AM [facility] IZQSNDDKQVCQVG74.032 - 36 g/dL08/05/2025 6:43 AM [facility] DVEFWCJDNVWGC61.8(H)11.5 - 15 %08/05/2025 6:43 AM [facility] LABORATORYPlatelet Eogeu754152 - 450 X10^9/L110/05/2024 6:43 AM [facility] LABORATORYMPV8.17 - 12 fL08/05/2025 6:43 AM [facility] LABORATORYNeutrophils %84.1%08/05/2025 6:43 AM [facility] LABORATORYComment:This is an appended report. These results have been appended to a previously preliminary verified report.Lymphocytes % 10.6%08/05/2025 6:43 AM [facility] LABORATORYComment:This is an appended report. These results have been appended to a previously preliminary verified report.Monocytes %5.1%08/05/2025 6:43 AM [facility] LABORATORYComment:This is an appended report. These results have been appended to a previously preliminary verified report.Eosinophils % 0.0%08/05/2025 6:43 AM [facility] LABORATORYComment:This is an appended report. These results have been appended to a previously preliminary verified report.Basophils %0.2%08/05/2025 6:43 AM [facility] LAB[facility]:This is an appended report. These results have been appended to a previously preliminary verified report.Neutrophils Absolute (A)16.6(H)1.5 - 6.6 X10^9/L110/05/2024 6:43 AM [facility]:This is an appended report. These results have been appended to a previously preliminary verified report.Lymphocytes Absolute2.1 1.0 - 3.5 X10^9/L110/05/2024 6:43 AM [facility] Comment:This is an appended report. These results have been appended to a previously preliminary verified report.Monocytes Absolute1.0(H)0.0 - 0.9 X10^9/L110/05/2024 6:43 AM [facility]Comment:This is an appended report. These results have been appended to a previously preliminary verified report.Eosinophils Absolute0.00.0 - 0.4 X10^9/L110/05/2024 6:43 AM [facility]:This is an appended report. These results have been appended to a previously preliminary verified report.Basophils Absolute0.00.0 - 0.2 X10^9/L110/05/2024 6:43 AM [facility] LABORATORYComment:This is an appended report. These results have been appended to a previously preliminary verified report.Differential TypeAUTOMATED TGFBKUFASGYA17/09/2025 6:43 AM [facility] LABORATORYComment:This is an appended report. These results have been appended to a previously preliminary verified report.Specimen (Source)Anatomical Location / LateralityCollection Method / VolumeCollection TimeReceived Time BloodVenous blood / UnknownVenipuncture / Qcsgmos6208/05/2025 4:02 AM EST 08/05/2025 4:20 AM EST Narrative Authorizing ProviderResult TypeResult StatusKassidy Cheko PASCUAL BLOOD ORDERABLESFinal ResultPerforming OrganizationAddressCity/State/ZIP CodePhone Number [facility] [address] [place] [address], * (ABNORMAL) Comprehensive metabolic panel (08/05/2025 4:02 AM EST)Component ValueRef RangeTest MethodAnalysis TimePerformed AtPathologist SignatureSODIUM 793686 - 146 mmol/L110/05/2024 4:52 AM [facility] POTASSIUM3.53.5 - 5.0 mmol/L110/05/2024 4:52 AM [facility] VYLATRTIULFFQAJWRY425(H)98 - 109 mmol/L110/05/2024 4:52 AM [facility] LABORATORYCARBON PFAZKVR15(L)22 - 32 mmol/L110/05/2024 4:52 AM [facility] LABORATORYANION GAP75 - 15 mmol/L110/05/2024 4:52 AM EST [facility] LABORATORYBLOOD UREA BJRYJDXV408 - 27 mg/dL08/05/2025 4:52 AM [facility] LABORATORYCREATININE0.690.40 - 1.00 mg/dL 08/05/2025 4:52 AM [facility]ORATORYComment:METHOD TRACEABLE TO IDAL PSPXMBBEKELKTEX105(H)65 - 99 mg/dL08/05/2025 4:52 AM EST [facility] LABORATORYCALCIUM8.0(L)8.5 - 10.5 mg/dL08/05/2025 4:52 AM [facility] LABORATORYTOTAL PROTEIN5.2(L)6.0 - 8.0 g/dL08/05/2025 4:52 AM [facility] LABORATORYALBUMIN3.0(L)3.2 - 5.3 g/dL08/05/2025 4:52 AM [facility] LABORATORYALKALINE RZDFPABYDEE7038 - 130 U/L110/05/2024 4:52 AM [facility] SIYTKQJBSYYXD64<=41 U/L110/05/2024 4:52 AM [facility] LABORATORYALT5<=31 U/L110/05/2024 4:52 AM [facility] LABORATORYBILIRUBIN,TOTAL0.70.3 - 1.2 mg/dL08/05/2025 4:52 AM [facility]ORATORYEGFR Non-Race Dependent>90>=60 ml/min/1.73sq.m 08/05/2025 4:52 AM [facility] LABORATORYComment: Reported eGFR is based on the CKD-EPI 2020 equation that does not use a race coefficient. Specimen (Source)Anatomical Location / LateralityCollection Method / Volume Collection TimeReceived TimeBloodVenous blood / UnknownVenipuncture / Unknown 08/05/2025 4:02 AM EST08/05/2025 4:20 AM EST Narrative Authorizing ProviderResult TypeResult StatusKassidy Rejent MDLAB BLOOD ORDERABLESFinal ResultPerforming OrganizationAddressCity/State/ZIP CodePhone Number [facility] [address] [place] [address], * Transfuse RBC:2 Units (08/04/2025 9:09 PM EST) Narrative Authorizing ProviderResult TypeResult StatusKassidy Rejent MDBLOOD TRANSFUSION ORDERABLESFinal Result * Transfuse RBC:2 Units (08/04/2025 9:09 PM EST) Narrative Authorizing ProviderResult TypeResult StatusKassidy Rejent MDBLOOD TRANSFUSION ORDERABLESFinal Result * (ABNORMAL) CBC auto differential (08/04/2025 12:18 PM EST)ComponentValueRef RangeTest MethodAnalysis TimePerformed AtPathologist JebxvaejsQOT36.4(H)4 - 11 X10^9/L110/04/2024 2:03 PM [facility] LABORATORYRBC Count3.12 (L)3.8 - 5.2 X10^12/L110/04/2024 2:03 PM [facility] LABORATORYHemoglobin9.1(L)11.7 - 15.5 g/dL08/04/2025 2:03 PM [facility] XUVLSNQFPGAebporkxof95.6(L)35 - 47 %08/04/2025 2:03 PM [facility] DGZQRMUOFDIZU0607 - 100 fL08/04/2025 2:03 PM [facility] XPBKATJCUAQML91.027 - 34 pg08/04/2025 2:03 PM [facility] HAFQGWMPYWUPUF43.832 - 36 g/dL08/04/2025 2:03 PM [facility] PBWGOSOBXMUXQ31.8(H)11.5 - 15 %08/04/2025 2:03 PM [facility] LABORATORYPlatelet Rwqww928777 - 450 X10^9/L 08/04/2025 2:03 PM [facility] LABORATORYMPV8.37 - 12 fL 08/04/2025 2:03 PM [facility] LABORATORYNeutrophils %88.9% 08/04/2025 2:03 PM [facility] LABORATORYComment:This is an appended report. These results have been appended to a previously preliminary verified report.Lymphocytes %8.7%08/04/2025 2:03 PM [facility] LABORATORYComment:This is an appended report. These results have been appended to a previously preliminary verified report.Monocytes %1.7%08/04/2025 2:03 PM [facility]ORATORYComment:This is an appended report. These results have been appended to a previously preliminary verified report.Eosinophils %0.4%08/04/2025 2:03 PM [facility]ORATORYComment:This is an appended report. These results have been appended to a previously preliminary verified report.Basophils %0.3%08/04/2025 2:03 PM [facility]ORATORYComment:This is an appended report. These results have been appended to a previously preliminary verified report. Neutrophils Absolute (A)12.8(H)1.5 - 6.6 X10^9/L110/04/2024 2:03 PM [facility]ORATORYComment:This is an appended report. These results have been appended to a previously preliminary verified report.Lymphocytes Absolute1.21.0 - 3.5 X10^9/L110/04/2024 2:03 PM [facility]ORATORYComment:This is an appended report. These results have been appended to a previously preliminary verified report.Monocytes Absolute0.20.0 - 0.9 X10^9/L110/04/2024 2:03 PM [facility]ORATORYComment:This is an appended report. These results have been appended to a previously preliminary verified report.Eosinophils Absolute0.10.0 - 0.4 X10^9/L110/04/2024 2:03 PM [facility]ORATORYComment:This is an appended report. These results have been appended to a previously preliminary verified report.Basophils Absolute0.00.0 - 0.2 X10^9/L110/04/2024 2:03 PM [facility]ORATORYComment:This is an appended report. These results have been appended to a previously preliminary verified report.Elliptocytes1+ 08/04/2025 2:03 PM [facility]ORATORYComment:This is an appended report. These results have been appended to a previously preliminary verified report.Differential TypeAUTOMATED ABNKOFFBSGJK47/08/2025 2:03 PM [facility] LABORATORYComment:This is an appended report. These results have been appended to a previously preliminary verified report. Specimen (Source)Anatomical Location / LateralityCollection Method / Volume Collection TimeReceived TimeBloodVenous blood / UnknownVenipuncture / Unknown 08/04/2025 12:18 PM EST08/04/2025 12:27 PM EST Narrative Authorizing ProviderResult TypeResult StatusAlexandria Lasalla DOLAB BLOOD ORDERABLESFinal ResultPerforming OrganizationAddressCity/State/ZIP CodePhone Number [facility] [address] [place] [address], * Transfuse RBC:2 Units (08/04/2025 10:00 AM EST) Narrative Authorizing ProviderResult TypeResult StatusKassidy Rejent MDBLOOD TRANSFUSION ORDERABLESFinal Result * ABO Rh Repeat (08/04/2025 8:27 AM EST)Specimen (Source)Anatomical Location / LateralityCollection Method / VolumeCollection TimeReceived Time08/04/2025 8:27 AM EST Narrative Authorizing ProviderResult TypeResult StatusKassidy Toddent MDBLOOD BANK TEST ORDERABLESFinal ResultPerforming OrganizationAddressCity/State/ZIP CodePhone Number [facility] * ABO Rh Repeat (08/04/2025 7:41 AM EST)ComponentValueRef RangeTest Method Analysis TimePerformed AtPathologist TzggwjmylDOSB68/08/2025 8:26 AM ESTTTH BB - ZJMMPYZCXYewmkwar57/08/2025 8:26 AM ESTTTH BB - WELLSKYSpecimen (Source) Anatomical Location / LateralityCollection Method / VolumeCollection Time Received TimeBloodVenous blood / UnknownVenipuncture / Tohgoyr7808/04/2025 7:41 AM EST08/04/2025 8:14 AM EST Narrative Authorizing ProviderResult TypeResult StatusAleia K Catherine MDBLOOD BANK TEST ORDERABLESFinal ResultPerforming OrganizationAddressCity/State/ZIP CodePhone Number [facility] - [place] [address] [place] [address], * Crossmatch RBC:Number of Units: 2 (08/04/2025 5:30 AM EST)ComponentValueRef RangeTest MethodAnalysis TimePerformed AtPathologist SignatureBlood component [id number] BANK - [place]LL[place]YUnit [id number] BANK - [place] Unit ABOOBLOOD BANK - WELL[place]YUnit RHNEGBLOOD BANK - WELLSKYCrossmatch CompatibleBLOOD BANK - WELLSKYStatus of unitTRANSFUSEDBLOOD BANK - [place] Expiration [id number] BANK - WELL[place]YBB Type [id number] BANK - WELL[place]YBlood component ginjB1311W13UYOLH BANK - WELLSKYUnit number [id number] BANK - WELLSKYUnit ABOOBLOOD BANK - WELL[place]YUnit RHNEG BLOOD BANK - WELLSKYCrossmatchCompatibleBLOOD BANK - WELLSKYStatus of unit TRANSFUSEDBLOOD BANK - WELLSKYExpiration [id number] BANK - [place] BB Type [id number] BANK - JOELSpecimen (Source)Anatomical Location / LateralityCollection Method / VolumeCollection TimeReceived TimeBlood 08/04/2025 5:30 AM EST08/04/2025 5:47 AM EST Narrative Authorizing ProviderResult TypeResult StatusAnnita Cheko BLOOD BANK PRODUCT ORDERABLESEdited Result - FinalPerforming OrganizationAddressCity/State/ZIP Code Phone Number BLO[facility] BANK - [place] * Fibrinogen (08/04/2025 5:30 AM EST)ComponentValueRef RangeTest MethodAnalysis TimePerformed AtPathologist FktusgbmqEJSDRDHXPQ287772 - 480 mg/dL08/04/2025 6:07 AM [facility] LABORATORYSpecimen (Source)Anatomical Location / LateralityCollection Method / VolumeCollection TimeReceived Time BloodVenous blood / UnknownVenipuncture / Mpoocin8908/04/2025 5:30 AM EST 08/04/2025 5:42 AM EST Narrative Authorizing ProviderResult TypeResult StatusAnnita Still MDLAB BLOOD ORDERABLESFinal ResultPerforming OrganizationAddressCity/State/ZIP CodePhone Number [facility] [address] [place] [address], [place] [phone] * (ABNORMAL) APTT (08/04/2025 5:30 AM EST)ComponentValueRef RangeTest Method Analysis TimePerformed AtPathologist ZaxadyiezKEDM93(L)26 - 37 sec08/04/2025 6:07 AM [facility] LABORATORYSpecimen (Source)Anatomical Location / LateralityCollection Method / VolumeCollection TimeReceived Time BloodVenous blood / UnknownVenipuncture / Ptqqewf4508/04/2025 5:30 AM EST 08/04/2025 5:42 AM EST Narrative Authorizing ProviderResult TypeResult StatusMicssidnolan Still MDLAB BLOOD ORDERABLESFinal ResultPerforming OrganizationAddressCity/State/ZIP CodePhone Number [facility] [address] [place] [address], [place] [phone] * Protime & INR (08/04/2025 5:30 AM EST)ComponentValueRef RangeTest Method Analysis TimePerformed AtPathologist EbdcikyazJANKPHV78.89.8 - 13.2 sec 08/04/2025 6:07 AM [facility] LABORATORYINR1.00.9 - 1.2 08/04/2025 6:07 AM [facility] LABORATORYSpecimen (Source) Anatomical Location / LateralityCollection Method / VolumeCollection Time Received TimeBloodVenous blood / UnknownVenipuncture / Jxamggn6808/04/2025 5:30 AM EST08/04/2025 5:42 AM EST Narrative Authorizing ProviderResult TypeResult StatusMicssivelisse Still MDLAB BLOOD ORDERABLESFinal ResultPerforming OrganizationAddressCity/State/ZIP CodePhone Number [facility] [address] [place] [address], [place] [phone] * Type and screen (08/04/2025 5:30 AM EST)ComponentValueRef RangeTest Method Analysis TimePerformed AtPathologist GsiocwpdiVPVB25/08/2025 8:20 AM ESTTTH BB - NGWVGOPTNPcjrgfvo07/08/2025 8:20 AM ESTTTH BB - WELLSKYAntibody Screen Dykthmrp01/08/2025 8:20 AM ESTTT BB - WELLSKYSpecimen (Source)Anatomical Location / LateralityCollection Method / VolumeCollection TimeReceived Time BloodVenous blood / UnknownVenipuncture / Xxpbuqc9808/04/2025 5:30 AM EST 08/04/2025 5:46 AM EST Narrative Authorizing ProviderResult TypeResult StatusAnnita Still MDBLOOD BANK TEST ORDERABLESEdited Result - FinalPerforming OrganizationAddressCity/State/ZIP Code Phone Number [facility] [place] [address] [place] [address], [place] * (ABNORMAL) CBC auto differential (08/04/2025 5:30 AM EST)ComponentValueRef RangeTest MethodAnalysis TimePerformed AtPathologist JmerccqamDEP01.7(H)4 - 11 X10^9/L110/04/2024 7:43 AM [facility] LABORATORYRBC Count2.10 (L)3.8 - 5.2 X10^12/L110/04/2024 7:43 AM [facility] Hemoglobin5.8(LL)11.7 - 15.5 g/dL08/04/2025 7:43 AM [facility] BDKYZZXBDDDfsippjowp27.0(L)35 - 47 %08/04/2025 7:43 AM [facility] NFLZTCIXKHOBB1331 - 100 fL08/04/2025 7:43 AM [facility] SKSNTDSWMMVCV15.727 - 34 pg08/04/2025 7:43 AM [facility] PMPSMCRUDPUJEM82.532 - 36 g/dL08/04/2025 7:43 AM [facility] OLKPIXTKNWJPG61.3(H)11.5 - 15 %08/04/2025 7:43 AM [facility] LABORATORYPlatelet Hpxfs121925 - 450 X10^9/L110/04/2024 7:43 AM [facility] LABORATORYMPV8.37 - 12 fL08/04/2025 7:43 AM [facility] LABORATORYNeutrophils %82%08/04/2025 7:43 AM [facility] LABORATORYComment:This is an appended report. These results have been appended to a previously preliminary verified report. Lymphocytes %16%08/04/2025 7:43 AM [facility] Comment:This is an appended report. These results have been appended to a previously preliminary verified report.Monocytes %2%08/04/2025 7:43 AM [facility]ATORYComment:This is an appended report. These results have been appended to a previously preliminary verified report. Neutrophils Absolute (M)11.2(H)1.5 - 6.6 X10^9/L110/04/2024 7:43 AM [facility]ORATORYComment:This is an appended report. These results have been appended to a previously preliminary verified report.Lymphocytes Absolute2.21.0 - 3.5 X10^9/L110/04/2024 7:43 AM [facility]ORATORYComment:This is an appended report. These results have been appended to a previously preliminary verified report.Monocytes Absolute0.30.0 - 0.9 X10^9/L110/04/2024 7:43 AM [facility]ORATORYComment:This is an appended report. These results have been appended to a previously preliminary verified report.Elliptocytes1+08/04/2025 7:43 AM [facility] LABORATORYComment:This is an appended report. These results have been appended to a previously preliminary verified report.Differential TypeMANUAL INORDUGBBLIX38/08/2025 7:43 AM [facility]ORATORYComment:This is an appended report. These results have been appended to a previously preliminary verified report.Specimen (Source)Anatomical Location / LateralityCollection Method / VolumeCollection TimeReceived Time BloodVenous blood / UnknownVenipuncture / Lxogtti0108/04/2025 5:30 AM EST 08/04/2025 5:42 AM EST Narrative Authorizing ProviderResult TypeResult StatusKassidy Rejent [facility] BLOOD ORDERABLESFinal ResultPerforming OrganizationAddressCity/State/ZIP CodePhone Number [facility] [address] [place] [address], * (ABNORMAL) Comprehensive metabolic panel (08/04/2025 5:30 AM EST)Component ValueRef RangeTest MethodAnalysis TimePerformed AtPathologist SignatureSODIUM 572871 - 146 mmol/L110/04/2024 6:15 AM [facility] POTASSIUM3.63.5 - 5.0 mmol/L110/04/2024 6:15 AM [facility] IAHZHQYUBMNAKXTEHN040(H)98 - 109 mmol/L110/04/2024 6:15 AM [facility] LABORATORYCARBON FZWEMRL78(L)22 - 32 mmol/L110/04/2024 6:15 AM [facility] LABORATORYANION GAP95 - 15 mmol/L110/04/2024 6:15 AM EST [facility] LABORATORYBLOOD UREA OCOTDLXT881 - 27 mg/dL08/04/2025 6:15 AM [facility] LABORATORYCREATININE0.600.40 - 1.00 mg/dL 08/04/2025 6:15 AM [facility] LABORATORYComment:METHOD TRACEABLE TO IDMS JMPAGHNVQZDAQUW774(H)65 - 99 mg/dL08/04/2025 6:15 AM EST [facility] LABORATORYCALCIUM7.8(L)8.5 - 10.5 mg/dL08/04/2025 6:15 AM [facility] LABORATORYTOTAL PROTEIN5.4(L)6.0 - 8.0 g/dL08/04/2025 6:15 AM [facility] LABORATORYALBUMIN3.1(L)3.2 - 5.3 g/dL08/04/2025 6:15 AM [facility] LABORATORYALKALINE ZIQZAFGYAGD6752 - 130 U/L110/04/2024 6:15 AM [facility] POCWRQLAMRXBA27<=41 U/L110/04/2024 6:15 AM [facility] LABORATORYALT5<=31 U/L110/04/2024 6:15 AM [facility] LABORATORYBILIRUBIN,TOTAL0.30.3 - 1.2 mg/dL08/04/2025 6:15 AM [facility] LABORATORYEGFR Non-Race Dependent>90>=60 ml/min/1.73sq.m 08/04/2025 6:15 AM [facility] LABORATORYComment: Reported eGFR is based on the CKD-EPI 2020 equation that does not use a race coefficient. Specimen (Source)Anatomical Location / LateralityCollection Method / Volume Collection TimeReceived TimeBloodVenous blood / UnknownVenipuncture / Unknown 08/04/2025 5:30 AM EST08/04/2025 5:42 AM EST Narrative Authorizing ProviderResult TypeResult StatusKassidy Rejent MDLAB BLOOD ORDERABLESFinal ResultPerforming OrganizationAddressCity/State/ZIP CodePhone Number [facility] [address] [place] [address], documented in this encounter Visit Diagnoses Diagnosis Pelvic mass- Primary Abdominal or pelvic swelling, mass or lump, unspecified site Pelvic mass Abdominal or pelvic swelling, mass or lump, unspecified site Endometrial cancer determined by uterine biopsy ([facility] Limited mobility Nausea Nausea alone Vagina bleeding Other specified noninflammatory disorder of vagina Vaginal bleeding Other specified noninflammatory disorder of vagina Endometrial cancer determined by uterine biopsy ([facility]) documented in this encounter Admitting Diagnoses Diagnosis [...] C, headaches, Starting on Wed08/05/25 at 1621 Given08/09/2025 9:44 AM EST1,000 vjQhrqh5508/06/2025 7:58 AM EST1,000 mg acetaminophen (TYLENOL EXTRA STRENGTH) tablet 1,000 mg 1,000 mg, oral, Once, On Wed08/07/25 at 1200, For 1 dose, Pre-op, 30 minutes prior to surgery Indications:Endometrial cancer determined by uterine biopsy ([facility])Given 08/07/2025 12:19 PM EST1,000 mg amisulpride (BARHEMSYS) [...] use. Indications:Endometrial cancer determined by uterine biopsy ([facility])Given 08/07/2025 12:18 PM PUS014 mg dextrose (GLUTOSE) 40 % gel 15 [...] unconscious orNPO with IV access, Starting on Sat 118/25 at 1031, Push over 1-3 minutes STAT. [...] First dose on [place] 08/09/25 at 1030 Indications:IjhzyaNmwfa62/13/2025 12:05 PM EST20 mg fentaNYL (SUBLIMAZE) injection 50 mcg 50 mcg, intravenous, Every 5 min PRN, Pain Scale 6-10, Starting on 08/04/25 at 1036, PACU (only), Up to a maximum dose of 150 mcg. Look-alike/sound-alike medication - verify indication for use. Given08/04/2025 11:00 AM EST50 auvZlteu65/08/2025 10:49 AM EST50 mcg fentaNYL (SUBLIMAZE) injection 50 mcg 50 mcg, intravenous, Every 5 min PRN, Pain Scale 6-10, Starting on e 08/07/25 at 1607, PACU (only), Up to a maximum dose of 150 mcg. Look-alike/sound-alike medication - verify indication for use. Given08/07/2025 5:09 PM EST50 mcg gabapentin (NEURONTIN) tablet 600 mg 600 mg, oral, Once, On Wed08/07/25 at 1200, For 1 dose, Pre-op, Administer 1 hour prior to surgeryLook-alike/sound-alike medication - verify indication for use. Indications:Endometrial cancer determined by uterine biopsy ([facility])Given 08/07/2025 12:18 PM NBD972 mg glucagon HCL injection 1 mg 1 [...] intravenous, Once in imaging, contrast, Starting on Wed08/05/25 at 1158, For 1 dose, VESICANT (RED) Given08/05/2025 12:14 PM AOU799 mL lactated ringers bolus 500 mL, intravenous, at 968 mL/hr, Administer over 31 Minutes, Once, On Wed08/08/25 at 1130, For 1dose New Bag08/08/2025 12:08 PM HEA206 mL968 mL/hr lactated ringers infusion 50 mL/hr, intravenous, Continuous, Starting on Wed08/07/25 [...] 8 hours PRN, nausea, vomiting, Starting on Wed08/06/25 at 1145, Intravenous administration preferred to be given over 2-5 minutes., Intravenous Specific Administration: IV Push Given08/09/2025 4:27 PM EST8 dkOyiuh3408/09/2025 4:53 AM EST8 alLsjfh5108/08/2025 7:41 PM EST8 mg ondansetron ODT (ZOFRAN ODT) disintegrating tablet 8 mg 8 mg, oral, Once, On Wed08/05/25 at 1745, For 1 dose Given08/05/2025 5:46 [...] use. Immediate release. Given08/05/2025 4:45 AM EST10 zxYpraa5108/04/2025 3:36 PM EST10 mg oxyCODONE (ROXICODONE) immediate [...] pain scale 7-10, Starting on 08/04/25 at 0618, Look-alike/sound-alike medication - verify indication [...] use. Immediate release. Given08/09/2025 4:53 AM EST5 qeCihra9208/08/2025 7:41 PM EST5 gdHnthu7408/08/2025 2:49 PM EST5 mg potassium chloride (K-TAB,KLOR-CON) [...] 1 hour. New Bag08/06/2025 2:09 AM EST10 iNb782 mL/hrNew Bag08/06/2025 12:57 AM EST10 mEq 100 mL/hrNew Bag08/05/2025 11:45 PM EST10 jPd176 mL/hr prochlorperazine (COMPAZINE) injection 5 mg 5 mg, intravenous, Every 8 hours PRN, nausea, vomiting, Starting on Wed08/05/25 at 2106, When administered via IV Push, do not exceed 5 mg per minute Given08/07/2025 2:14 AM EST5 bbSxigk3008/06/2025 7:59 AM EST5 kaMosbt9008/05/2025 9:15 PM EST5 mg senna (SENOKOT) tablet 8.6 mg 8.6 mg, oral, 2 times daily, First dose on Wed08/08/25 at 0900 Given08/09/2025 9:43 AM EST8.6 kwOkzsj8108/08/2025 9:27 PM EST8.6 mgGiven 08/08/2025 9:31 AM EST8.6 mg simethicone (MYLICON) chewable tablet 80 mg 80 mg, oral, 4 times daily PRN, flatulence, Starting on Wed08/05/25 at 1939 Given08/08/2025 12:43 PM EST80 bdOfzbz4008/05/2025 8:55 PM EST80 mg sodium chloride 0.9 % flush 10 mL 10 mL, intravenous, As needed, line care, Starting on Wed08/05/25 at 1158 Given08/05/2025 12:14 PM EST10 mL sodium chloride 0.9 % flush 3 mL 3 mL, intravenous, As needed, line care, before and after each intermittent use, Starting on Wed08/04/25 at 0336 sodium chloride 0.9 % flush 3 mL 3 mL, intravenous, Every 12 hours scheduled, First dose on Wed08/04/25 at 0900 Given08/09/2025 9:47 AM EST3 jALdsxn7208/08/2025 9:27 PM EST3 uTYiota2808/08/2025 9:31 AM EST3 mL sodium chloride 0.9 [...] Once in imaging, pre/post contrast, Starting on Wed08/05/25 at 1158, For 1 dose Given08/05/2025 12:14 PM EST80 mL timolol (TIMOPTIC) 0.5 % ophthalmic solution 1 drop 1 drop, both eyes, 2 times daily, First dose on Wed08/04/25 at 1400 Given08/09/2025 9:47 AM EST1 vwemUmiql49/12/2025 9:28 PM EST1 dropGiven 08/08/2025 9:31 AM [...] 1218 (Given - Provider: Gayatri Stewart, JORDYN) famotidine (PEPCID) tablet 20 mg 20 mg, oral, 2 times daily, First dose on Wed08/09/25 at 1030 * 1205 (Given - Provider: Akiko Torres, JORDYN) gabapentin (NEURONTIN) tablet 600 mg (COMPLETED) 600 mg, oral, Once, On Wed08/07/25 at 1200, For 1 dose, Pre-op, Administer 1 hour prior to surgeryLook-alike/sound-alike medication - verify indication for use. * 1218 (Given - Provider: Gayatri Stewart RN) lactated ringers bolus (COMPLETED) 500 mL, intravenous, at 968 mL/hr, Administer over 31 Minutes, Once, On Wed08/08/25 at 1130, For 1dose * 1208 (New Bag - Provider: Amber Parker RN) * 1239 (Stop Bag - Provider: mAber Parker RN) * 1552 (Stop Bag - [...] RN) * 1134 (MAR Hold - Provider: Jody Epic - Reason: Patient not available) * 1744 (MAR Unhold - Provider: User Epic) * 2013 (Given - Provider: Joana Ibarra RN) * 930 (Given - Provider: Amber Parker RN) * 2126 (Given - Provider: Joana Ibarra RN) * 0947 (Given - Provider: Akiko Torres RN) timolol (TIMOPTIC) 0.5 % ophthalmic solution 1 drop 1 drop, both eyes, 2 times daily, First dose on 08/04/25 at 1400 * 0824 (Given - Provider: Amber Parker RN) * 1134 (NOV Hold - Provider: User Epic - Reason: Patient not available) * 1744 (NOV Unhold - Provider: User Epic) * 2012 (Given - Provider: Joana Ibarra RN) * 930 (Given - Provider: Amber Parker RN) * 2127 (Given - Provider: Joana Ibarra RN) * 0947 (Given - Provider: Akiko Torres RN) Medication Order// lactated ringers infusion (CANCELED) 50 [...] (MAR Unhold - Provider: User Epic) * 0944 (Given - Provider: Akiko Torres RN) bisacodyL (DULCOLAX) suppository 10 mg 10 mg, [...] initial treatment, repeat treatment. * 1134 ([facility] Hold - Provider: User Epic - Reason: Patient not available) * 1744 ([facility] Unhold - Provider: User Epic) dextrose (GLUTOSE) 40 % gel 15 g 15 g, oral, As needed, low blood sugar, blood glucose less than 70 mg/dL, Starting on 08/04/25 at 1031, If patient conscious and taking PO. If blood glucose is not greater than 70 mg/dL after initial treatment, repeat treatment. * 1134 ([facility] Hold - Provider: User Epic - Reason: Patient not available) * 1744 ([facility] Un[facility] - Provider: User Epic) dextrose 5 [...] initial treatment, repeat treatment. * 1134 ([facility] Hold - Provider: User Epic - Reason: Patient not available) * 1744 ([facility] Un[facility] - Provider: User Epic) dextrose 5 [...] initial treatment, repeat treatment. * 1134 ([facility] Hold - Provider: User Epic - Reason: Patient not available) * 1744 ([facility] Un[facility] - Provider: User Epic) dextrose 50 [...] (RED) Warning: HYPERTONIC solution. * 1134 ([facility] Hold - Provider: User Epic - Reason: Patient not available) * 1744 ([facility] Un[facility] - Provider: User Epic) dextrose 50 [...] (RED) Warning: HYPERTONIC solution. * 1134 ([facility] Hold - Provider: User Epic - Reason: Patient not available) * 1744 ([facility] Un[facility] - Provider: User Epic) fentaNYL (SUBLIMAZE) [...] initial treatment, repeat treatment. * 1134 ([facility] Hold - Provider: User Epic - Reason: Patient not available) * 1744 ([facility] Un[facility] - Provider: User Epic) glucagon HCL [...] initial treatment, repeat treatment. * 1134 ([facility] Hold - Provider: User Epic - Reason: Patient not available) * 1744 ([facility] Un[facility] - Provider: User Epic) HYDROmorphone (DILAUDID) injection 0.5 mg 0.5 mg, intravenous, Every 4 hours PRN, severe pain - pain scale 7-10, breakthrough pain, Starting on 08/04/25 at 1033, If IV push, administer over over 2 to 3 minutes. Look-alike/sound-alike medication - verify indication for use. * 1134 ([facility] Hold - Provider: User Epic - Reason: Patient not available) * 1744 ([facility] Un[facility] - Provider: User Epic) HYDROmorphone (PF) (DILAUDID) injection 0.5 mg 0.5 mg, intravenous, Every 4 hours PRN, severe pain - pain scale 7-10, breakthrough, give chava first, Starting on 08/04/25 at 0618, If IV push, administer over over 2 to 3 minutes. Look-alike/sound-alike medication - verify indication for use. * 1134 ([facility] Hold - Provider: User Epic - Reason: Patient not available) * 1744 ([facility] Un[facility] - Provider: User Epic) lidocaine PF (XYLOCAINE) 10 mg/mL (1 %) injection 1 mg (CANCELED) 1 mg (0.1 mL), intradermal, As needed, times 1 per IV attempt for IV start pain control, Starting on Wed08/07/25 at 1238, Pre-op * 1340 (Given - Provider: EDIN Inman) lidocaine-EPINEPHrine (XYLOCAINE W/EPI) 1 %-[id number] injection (CANCELED) As needed, Starting on Wed08/07/25 at 1611, Intra-op * 1611 (Given - Provider: Dennis Monson MD) ondansetron (PF) (ZOFRAN) injection 8 mg 8 mg, intravenous, Every 8 hours PRN, nausea, vomiting, Starting on Wed08/06/25 at 1145, Intravenous administration preferred to be given over 2-5 minutes., Intravenous Specific Administration: IV Push * 0837 (Given - Provider: Amber Parker RN) * 1134 ([facility] Hold - Provider: User Epic - Reason: Patient not available) * 1744 ([facility] - Provider: User Epic) * 194 (Given - Provider: Joana Ibarra RN) * 0453 (Given - Provider: Jaona Ibarra RN) * 1627 (Given - Provider: Akiko Torres, JORDYN) oxyCODONE (ROXICODONE) immediate release tablet 10 mg(Linked Group 1) 10 mg, oral, Every 6 hours PRN, severe pain - pain scale 7-10, Starting on Wed08/07/25 at 0225, Look-alike/sound-alike medication - verify indication for use. Immediate release. * 0829 (See Alternative - Provider: Amber Parker RN) * 1134 ([facility] Hold - Provider: User Epic - Reason: Patient not available) * 1744 ([facility] Un[facility] - Provider: User Epic) * 1755 (See Alternative - Provider: Amber Parker RN) * 0431 (See Alternative - Provider: Joana Ibarra RN) * 1449 (See Alternative - Provider: Amber Parker RN) * 194 (See Alternative - Provider: Joana Ibarra RN) [...] pain - pain scale 4-6, Starting on Tu08/07/25 at 0225, Look-alike/sound-alike medication - verify indication for use. Immediate release. * 0829 (Given - Provider: Amber Parker RN) * 1134 ([facility] - Provider: User Epic - Reason: Patient not available) * 1744 ([facility] - Provider: User Epic) * 1755 (Given - Provider: Amber Parker RN) * 0431 (Given - Provider: Joana Ibarra RN) * 1449 (Given - Provider: Amber Parker RN) * 1941 (Given - Provider: Joana Ibarra, RN) * 0453 (Given - Provider: Joana Ibarra, JORDYN) * 1409 (See Alternative - Provider: Akiko [...] - Reason: Patient not available) * 1744 ([facility] - Provider: User Epic) potassium chloride [...] and monitor potassium levels * 1134 ([facility] Hold - Provider: User Epic - Reason: Patient not available) * 1744 ([facility] - Provider: User Epic) potassium chloride [...] minimum of 1 hour. * 1134 ([facility] Hold - Provider: User Epic - Reason: Patient not available) * 1744 ([facility] - Provider: User Epic) prochlorperazine (COMPAZINE) injection 5 mg 5 mg, intravenous, Every 8 hours PRN, nausea, vomiting, Starting on 08/05/25 at 2106, When administered via IV Push, do not exceed 5 mg per minute * 0214 (Given - Provider: Akiko Weller RN) * 1134 ([facility] Hold - Provider: User Epic - Reason: Patient not available) * 1744 ([facility] Un[facility] - Provider: User Epic) simethicone (MYLICON) chewable tablet 80 mg 80 mg, oral, 4 times daily PRN, flatulence, Starting on 08/05/25 at 1939 * 1134 ([facility] Hold - Provider: User Epic - Reason: Patient not available) * 1744 ([facility] - Provider: User Epic) * 1243 (Given - Provider: Amber Parker RN) sodium chloride 0.9 % flush 10 mL 10 mL, intravenous, As needed, line care, Starting on 08/05/25 at 1158 * 1134 ([facility] Hold - Provider: User Epic - Reason: Patient not available) * 1744 ([facility] - Provider: User Epic) sodium chloride 0.9 % flush 3 mL 3 mL, intravenous, As needed, line care, before and after each intermittent use, Starting on 08/04/25 at 0336 * 1134 ([facility] Hold - Provider: User Epic - Reason: Patient not available) * 1744 ([facility] Un[facility] - Provider: User Epic) sodium chloride 0.9 % flush bag 25 mL, intravenous, at 100 mL/hr, Administer over 15 Minutes, As needed, line care, line care afterIVPB administration, Starting on 08/04/25 at 0336 * 1134 ([facility] Hold - Provider: User Epic - Reason: Patient not available) * 1744 ([facility] - Provider: User Epic) sodium chloride 0.9 % flush bag 25 mL, intravenous, at 100 mL/hr, Administer over 15 Minutes, As needed, line care, line care afterIVPB administration, Starting on 08/04/25 at 1031 * 1134 ([facility] Hold - Provider: User Epic - Reason: Patient not available) * 1744 ([facility] Un[facility] - Provider: User Epic) Order Group [...] needed, Potassium Supplementation, Starting on Wed08/05/25 at 2107, Progress tooral potassium replacement when patient tolerating [...] needed, Potassium Supplementation, Starting on Wed08/05/25 at 2107, Progress tooral potassium replacement when patient tolerating [...] needed, POTASSIUM REPLACEMENT, Starting on Wed08/05/25 at 2107, IV if unable to use oral/enteral with [...] MemberRelationshipSpecialtyStart DateEnd Date Ann Marie Sidhu MD [address] [place] [address] PCP - GeneralFamily Runokwnm05/9/25documented as of this encounter
--- OUTSIDE RECORDS SUMMARY | 2025-08-04 03:32 | XMS_ITS | Encounter Summary ---
Author Organization [employer] [facility] tem Address [id number] [address] [place] [address] Care Team Providers Care Pattern Chain Maker Supervisor Name Role Phone Ann Marie Sidhu MD Primary Care Provider [phone] Reason for Referral * Misc (Routine) - Pending ReviewSpecialtyDiagnoses / ProceduresReferred By ContactReferred To Contact Procedures Discharge Follow-Up Nusrat Ramirez MD [address] [address] Phone: tel: fax: Referral IDStatusReasonStart DateExpiration DateVisits RequestedVisits [id number] * Misc (Routine) - Pending ReviewSpecialtyDiagnoses / ProceduresReferred By ContactReferred To Contact Procedures Hygiene Nusrat Ramirez MD [address] [address] Phone: tel: fax: Referral IDStatusReasonStart DateExpiration DateVisits RequestedVisits [id number] * Misc (Routine) - Pending ReviewSpecialtyDiagnoses / ProceduresReferred By ContactReferred To Contact Procedures Discharge Follow-Up Nusrat Ramirez MD [address] [place] [address] Phone: tel: fax: Referral IDStatusReasonStart DateExpiration DateVisits RequestedVisits [id number] * Misc (Routine) - Pending ReviewSpecialtyDiagnoses / ProceduresReferred By ContactReferred To Contact Procedures [facility] Nusrat Ramirez MD [address] [place] [address] Phone: tel: fax: Referral IDStatusReasonStart DateExpiration DateVisits RequestedVisits [id number] * Misc (Routine) - Pending ReviewSpecialtyDiagnoses / ProceduresReferred By ContactReferred To Contact Procedures Discharge Follow-Up Discharge Follow-Up Jalyn Camp MD [address] [place] [address] Phone: tel: fax: Referral IDStatusReasonStart DateExpiration DateVisits RequestedVisits [id number] * Misc (Routine) - Pending ReviewSpecialtyDiagnoses / ProceduresReferred By ContactReferred To Contact Procedures Annita Walter MD [address] [address] Phone: tel: fax: Referral IDStatusReasonVancleave DateExpiration DateVisits RequestedVisits [id number] [id number]/ Reason for Visit * Auth/Cert (Routine)SpecialtyDiagnoses / ProceduresReferred By ContactReferred To Contact Diagnoses Pelvic mass Vagina bleeding Vaginal bleeding pelvic mass/vaginal bleeding Dustin Santiago MD [address] [facility], [address] [place] [address] Phone: tel: fax: Referral IDStatusReasonVancleave DateExpiration DateVisits RequestedVisits [id number] Encounter Details DateTypeDepartmentCare Team (Latest Contact Info)Trpnewagifb15/08/2025 3:32 AM EST - 08/09/2025 5:49 PM ESTHospital [facility]counter [facility] [address] [place] [id number] [place] [address] [place] [address], [address] [place] [address] Endometrial cancer determined by uterine biopsy ([facility]) (Primary Dx); Pelvic mass; Limited mobility; Nausea Discharge Disposition: Home Social History Tobacco UseTypesPacks/DayYears UsedDateSmoking Tobacco: NeverSmokeless Tobacco: Never Tobacco Cessation:Counseling Given: Not Answered Alcohol UseStandard Drinks/WeekCommentsNever0 (1 standard drink = 0.6 oz pure alcohol)PHQ-2AnswerDate RecordedTotal Iarxg11710/04/2024UDIT-CAnswerDate Recorded Q1: How often do you have [...] InformationValueDate RecordedSex Assigned at BirthNot on fileLegal WnyBedtur61/08/2025 12:05 AM ESTGender IdentityNot on fileSexual OrientationNot on filedocumented as of this encounter Last Filed Vital Signs Vital SignReadingTime TakenCommentsBlood Npfgxbhf014/7208/09/2025 7:49 AM EST Pjlca169408/09/2025 7:49 AM ELVXalvqjtwrms62.4 ??C (99.4 ??F)08/09/2025 7:49 AM ESTRespiratory Acle774110/09/2024 7:49 AM ESTOxygen Bruuhueckb39%08/09/2025 7:49 AM ESTInhaled Oxygen Concentration--Tvitqj86 kg (165 lb 5.5 oz)08/09/2025 3:46 AM GLFWrhhxg999.5 cm (5' 2.01 )08/04/2025 8:39 AM ESTBody Mass Index30.23 08/04/2025 8:39 AM ESTdocumented in this encounter Functional Status * QuestionAnswerDate of AssessmentAuthorFunctional PsrxdcDdsqarmwlur85/09/2025 11:52 AM Milagros Bolden RN * AUDIT-C ScoreAnswerDate of RyxiuxiwleOgiqqa285/08/2025 3:44 PM Denice Schultz RN * QuestionAnswerDate [...] encounter Mental Status * QuestionAnswerEntry DateAuthorOverall Cognitive PhfyusNZW87/12/2025 9:18 AM Toya Morrell, OT/L documented in [...] history on file. who initially presented to [facility] for vaginal bleeding. A pelvic ultrasound and CT abdomen were performed that showed a uterine mass and enlarged lymph nodes. The patient was transferred to [facility]. Upon arrival speculumexam showed 1 large [...] Your Medications These medications were sent to [facility] [address] [facility] [address] [facility] [address] acetaminophen 500 mg tablet famotidine 20 mg [...] Postop visit on 08/21 Jalyn Camp MD ADOPTION AGENT Resident, PGY-3 Cosigned by Sherry Cuellar MD [...] above. I have repeated and performed the crason portions of the physical exam and concur with the student's findings. I agree with the plan as noted above with any changes made as necessary. Jalyn Camp MD Psychotherapist Resident PGY-2 08/09/25 6:44 AM Cosigned by [...] 6:04 AM EST Gynecology Progress Note SUBJECTIVE: Euncie Anderson is a 70 y.o. POD #1 [...] changes made as necessary. Jalyn Camp MD Psychotherapist Resident PGY-2 08/08/25 6:38 AM Cosigned by [...] Camp MD - 08/07/2025 6:39 AM EST [facility] Daily Progress Note Admission Date: 08/04/2025 [...] -Hgb 7.2 (OSH)>5.8>2u pRBC>9.1>8>8.3>8.3 Jalyn Camp MD Psychotherapist Resident, PGY-3 If questions or concerns, please contact via [facility] pager at [phone]. Cosigned by Dennis Monson MD at 08/07/2025 [...] Ramirez MD - 08/06/2025 7:09 AM EST [facility] Daily Progress Note Admission Date: 08/04/2025 [...] and hold food down. Nusrat Ramirez MD Psychotherapist Resident, PGY-1 If questions or concerns, please contact via [facility] pager at [phone]. Cosigned by Sherry Cuellar MD at 08/06/2025 [...] Still MD - 08/05/2025 6:24 AM EST [facility] Daily Progress Note Admission Date: 08/04/2025 [...] home today with close follow up with [facility] for pathology review and treatment planning. Annita Rejent, MD Psychotherapist Resident, PGY-2 If questions or concerns, please contact via [facility] pager at [phone]. Cosigned by Dustin Santiago MD at 08/05/2025 [...] 08/04/2025 Performed by Dustin Santiago MD at [facility] Allergies Allergen Reactions Latex Hives and [...] an obstructing tumor. Manuel Busby MD, FACS [facility] General Surgeons Minimally Invasive Robotic Surgery Board Certified in General Surgery Board Certified in Critical Care Office: [phone] Email: [email or web address] Thank you for allowing me to participate in the care of your patient. Please feel free to contact me with any questions or concerns. [phone] * Dennis Monson MD - 08/07/2025 11:26 AM EST HISTORY AND PHYSICAL INTERVAL NOTE: Eunice Anderson 1955 [id number] H&P reviewed. The patient was examined and there are no changes to the H&P. Dennis Monson MD Source Note - Jalyn Camp MD - 08/07/2025 6:39 AM EST [facility] Daily Progress Note Admission Date: 08/04/2025 [...] -Hgb 7.2 (OSH)>5.8>2u pRBC>9.1>8>8.3>8.3 Jalyn Camp MD Psychotherapist Resident, PGY-3 If questions or concerns, please contact via [facility] pager at [phone]. Cosigned by Dennis Monson MD at 08/07/2025 11:22 AM EST * Annita Still MD - 08/04/2025 3:38 AM EST Gynecology Oncology Consultation Date of Admission: 08/04/2025 3:32 AM Chief Complaint : Uterine mass, vaginal bleeding History of Present Illness : Eunice Anderson is a 70 y.o. female with PMH of glaucoma who presents as a transport from [facility] for vaginal bleeding. Patient reports vaginal spotting that began 2 days ago. She reports feeling weak, lightheaded, and nauseous 1 day ago while at work and went to the bathroom where she filled the toilet with blood. Patient was brought to [facility] where pelvic USN and [facility] that revealed a likely uterine mass and possible enlarged lymph node. Hgb at the time was 9mg/dl and vaginal bleeding was stable. Patient was referred to OBGYN outpatient for close follow up. She reports worsening vaginal bleeding overnight along with weakness, lightheadedness, nausea. She also reports intermittent painful cramps and passage of clots. She was taken to [facility] for evaluation. Per report, the patient was vitally stable, pale, and hgb was 7.2mg/dl. On exam, 1 large clot was cleared from the vagina and another remained at the cervical os with a slow trickle of active bleeding. Patient was given IVF and decision was made to transport patient to [facility] for Gynecology Oncology evaluation for vaginal bleeding in the setting of a pelvic mass. 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 Denies prior gynecologic surgery. [...] Discussed with Dr. Santiago Annita Still MD Psychotherapist Resident, PGY-2 If questions or concerns, please contact via [facility] pager at [phone]. Cosigned by Dustin Santiago MD at 08/04/2025 [...] Description: INTERVENTIONS: 1. Encourage patient or legal guest relations representative to report early pain and ask [...] per policy 9. Teach patient or legal guest relations representative interventions for comforting 08/09/2025 172 by [...] at the bedside 7. Instruct patient/ patient guest relations representative about use of safety devices 8. Include patient/ patient guest relations representative in decisions related to safety 08/09/2025 [...] hygiene technique. 7. Identify and instruct patient/patient guest relations representative in use of appropriate isolation precautionsfor identified infection/symptoms. 8. Provide and discuss with patient/patient guest relations representative on educational MDRO sheet. 9. Encourage and monitor nutritional status daily and consult pv design and installation technician if indicated. 10. Implement neutropenic guidelines as needed. 08/09/20251725 by JORDYN Wharton Outcome: Adequate for Discharge 08/09/20251228 by JORDYN Wharton Outcome: Progressing Note: Evaluation of progress towards goal: Patient afebrile, vital signs stable at this time. Continuing to monitor. Problem: Knowledge Deficit Goal: Patient/patient guest relations representative demonstrates understanding of disease process, treatment [...] Score of =/> 25 or indicated by [facility] Assessment Goal: Patient should be free from fall Description: Interventions: 1. [place] to environment 2. Hourly rounds addressing the [...] non-skid footwear 11. Teach patient and patient guest relations representative to maintain environment for safety and [...] (cane, walker) within reach 19. Request patient guest relations representative bring adaptive equipment/mobility aids from home or obtain and provide as needed 20. Consult pharmacy regarding effects of med's affecting mobility, cognition, and alternatives 21. Obtain physician order for PT if risk factors associated with mobility are present 22. Obtain physician order for OT as appropriate 23. Utilize diversional activities 24. Educate patient and patient guest relations representative how to maintain a safe environment during visitationtimes (notify nurse prior to leaving bedside) 25. Consider appropriateness of medical or non-hospital medical biller 26. Set up voiding schedule as appropriate [...] supplement as ordered 13. Collaborate with clinical pv design and installation technician 14. Include patient/ patient's guest relations representative in decisions related to nutrition Outcome: [...] * Plan of Care - Eloisa Doshi [facility] - 08/09/2025 2:16 PM EST [...] ew also shows new medication use. * PT/OT/PARTY DIRECTOR - Neo Hoskins PTA - 08/09/2025 2:07 [...] Description: INTERVENTIONS: 1. Encourage patient or legal guest relations representative to report early pain and ask [...] per policy 9. Teach patient or legal guest relations representative interventions for comforting Outcome: Progressing Note: [...] at the bedside 7. Instruct patient/ patient guest relations representative about use of safety devices 8. Include patient/ patient guest relations representative in decisions related to safety Outcome: [...] hygiene technique. 7. Identify and instruct patient/patient guest relations representative in use of appropriate isolation precautionsfor identified infection/symptoms. 8. Provide and discuss with patient/patient guest relations representative on educational MDRO sheet. 9. Encourage and monitor nutritional status daily and consult pv design and installation technician if indicated. 10. Implement neutropenic guidelines as needed. Outcome: Progressing Note: Evaluation of progress towards goal: Patient afebrile, vital signs stable at this time. Continuing to monitor. Problem: Knowledge Deficit Goal: Patient/patient guest relations representative demonstrates understanding of disease process, treatment [...] Score of =/> 25 or indicated by [facility] Assessment Goal: Patient should be free from fall Description: Interventions: 1. [place] to environment 2. Hourly rounds addressing the [...] non-skid footwear 11. Teach patient and patient guest relations representative to maintain environment for safety and [...] (cane, walker) within reach 19. Request patient guest relations representative bring adaptive equipment/mobility aids from home or obtain and provide as needed 20. Consult pharmacy regarding effects of med's affecting mobility, cognition, and alternatives 21. Obtain physician order for PT if risk factors associated with mobility are present 22. Obtain physician order for OT as appropriate 23. Utilize diversional activities 24. Educate patient and patient guest relations representative how to maintain a safe environment during visitationtimes (notify nurse prior to leaving bedside) 25. Consider appropriateness of medical or non-hospital medical biller 26. Set up voiding schedule as appropriate [...] Description: INTERVENTIONS: 1. Encourage patient or legal guest relations representative to report early pain and ask [...] per policy 9. Teach patient or legal guest relations representative interventions for comforting Outcome: Progressing Note: [...] at the bedside 7. Instruct patient/ patient guest relations representative about use of safety devices 8. Include patient/ patient guest relations representative in decisions related to safety Outcome: [...] hygiene technique. 7. Identify and instruct patient/patient guest relations representative in use of appropriate isolation precautionsfor identified infection/symptoms. 8. Provide and discuss with patient/patient guest relations representative on educational MDRO sheet. 9. Encourage and monitor nutritional status daily and consult pv design and installation technician if indicated. 10. Implement neutropenic guidelines as needed. Outcome: Progressing Note: Evaluation of progress towards goal: No signs or symptoms of infection Problem: Knowledge Deficit Goal: Patient/patient guest relations representative demonstrates understanding of disease process, treatment [...] Score of =/> 25 or indicated by [facility] Assessment Goal: Patient should be free from fall Description: Interventions: 1. [place] to environment 2. Hourly rounds addressing the [...] non-skid footwear 11. Teach patient and patient guest relations representative to maintain environment for safety and [...] (cane, walker) within reach 19. Request patient guest relations representative bring adaptive equipment/mobility aids from home or obtain and provide as needed 20. Consult pharmacy regarding effects of med's affecting mobility, cognition, and alternatives 21. Obtain physician order for PT if risk factors associated with mobility are present 22. Obtain physician order for OT as appropriate 23. Utilize diversional activities 24. Educate patient and patient guest relations representative how to maintain a safe environment during visitationtimes (notify nurse prior to leaving bedside) 25. Consider appropriateness of medical or non-hospital medical biller 26. Set up voiding schedule as appropriate [...] supplement as ordered 13. Collaborate with clinical pv design and installation technician 14. Include patient/ patient's guest relations representative in decisions related to nutrition Outcome: [...] YESENIA SHAIKH RN 08/08/25 10:07 AM * PT/OT/PARTY DIRECTOR - Toya Ortiz OT/L - 08/08/2025 9:33 [...] 08/07/2025 Performed by Dennis Monson MD at [facility] DILATION CURETTAGE N/A 08/04/2025 Performed by Dustin Santiago MD at [facility] FLEXIBLE SIGMOIDOSCOPY N/A 08/07/2025 Performed by Manuel Busby MD at [facility] No chief complaint on file. 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 Hand Dominance: Right [...] Patient will perform bed mobility with Modified Barnes Dates: Start: 08/08/25 Expected End: 09/06/25 Description: Goal Description: Disciplines: OT Problem: Functional Mobility Dates: Start: 08/08/25 Disciplines: OT Goal: Patient will perform functional mobility with Modified Barnes Dates: Start: 08/08/25 Expected End: 09/06/25 Description: [...] Goal: Patient will perform transfers with Modified Barnes Dates: Start: 08/08/25 Expected End: 09/06/25 Description: Goal Description: Disciplines: OT Occupational Therapy Care Plan (Resolved) There are no resolved problems. Principal Problem: Pelvic mass Active Problems: Vagina bleeding Vaginal bleeding * PT/OT/PARTY DIRECTOR - Ginny Mcghee, PT - 08/08/2025 9:31 [...] 08/07/2025 Performed by Dennis Monson MD at [facility] DILATION CURETTAGE N/A 08/04/2025 Performed by Dustin Santiago MD at [facility] FLEXIBLE SIGMOIDOSCOPY N/A 08/07/2025 Performed by Manuel Busby MD at [facility] No chief complaint on file. 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) Hearing / Speech / Vision Hearing: Within [...] Goal: Patient will perform gait with Modified Barnes Dates: Start: 08/08/25 Expected End: 09/07/25 Description: Pt to amb 150' with RW and [place] Disciplines: PT Problem: Stairs/Curb Dates: Start: 08/08/25 Disciplines: PT Goal: Patient will perform stairs/curb with Modified Barnes Dates: Start: 08/08/25 Expected End: 09/07/25 Description: [...] Goal: Patient will perform transfers with Modified Barnes Dates: Start: 08/08/25 Expected End: 09/07/25 Description: Sit<>stand with [place] and use of RW for support Disciplines: [...] Description: INTERVENTIONS: 1. Encourage patient or legal guest relations representative to report early pain and ask [...] per policy 9. Teach patient or legal guest relations representative interventions for comforting Outcome: Progressing Note: [...] at the bedside 7. Instruct patient/ patient guest relations representative about use of safety devices 8. Include patient/ patient guest relations representative in decisions related to safety Outcome: [...] hygiene technique. 7. Identify and instruct patient/patient guest relations representative in use of appropriate isolation precautionsfor identified infection/symptoms. 8. Provide and discuss with patient/patient guest relations representative on educational MDRO sheet. 9. Encourage and monitor nutritional status daily and consult pv design and installation technician if indicated. 10. Implement neutropenic guidelines as needed. Outcome: Progressing Note: Evaluation of progress towards goal: Pts VSS and labs WNL, no S/S of infection, all insertionsites clean dry and intact, pt and staff utilize proper handwashing technique. Problem: Knowledge Deficit Goal: Patient/patient guest relations representative demonstrates understanding of disease process, treatment [...] goal: Pt discharge plan started on admission, eye care professional involved, discharges needs assessed. Problem: Moderate - High Risk Fall Score Description: Torres Fall Score of =/> 25 or indicated by [facility] Assessment Goal: Patient should be free from fall Description: Interventions: 1. [place] to environment 2. Hourly rounds addressing the [...] non-skid footwear 11. Teach patient and patient guest relations representative to maintain environment for safety and [...] (cane, walker) within reach 19. Request patient guest relations representative bring adaptive equipment/mobility aids from home or obtain and provide as needed 20. Consult pharmacy regarding effects of med's affecting mobility, cognition, and alternatives 21. Obtain physician order for PT if risk factors associated with mobility are present 22. Obtain physician order for OT as appropriate 23. Utilize diversional activities 24. Educate patient and patient guest relations representative how to maintain a safe environment during visitationtimes (notify nurse prior to leaving bedside) 25. Consider appropriateness of medical or non-hospital medical biller 26. Set up voiding schedule as appropriate [...] supplement as ordered 13. Collaborate with clinical pv design and installation technician 14. Include patient/ patient's guest relations representative in decisions related to nutrition Outcome: [...] Description: INTERVENTIONS: 1. Encourage patient or legal guest relations representative to report early pain and ask [...] per policy 9. Teach patient or legal guest relations representative interventions for comforting Outcome: Progressing Note: [...] at the bedside 7. Instruct patient/ patient guest relations representative about use of safety devices 8. Include patient/ patient guest relations representative in decisions related to safety Outcome: [...] hygiene technique. 7. Identify and instruct patient/patient guest relations representative in use of appropriate isolation precautionsfor identified infection/symptoms. 8. Provide and discuss with patient/patient guest relations representative on educational MDRO sheet. 9. Encourage and monitor nutritional status daily and consult pv design and installation technician if indicated. 10. Implement neutropenic guidelines as needed. Outcome: Progressing Note: Evaluation of progress towards goal: No signs or symptoms of infection Problem: Knowledge Deficit Goal: Patient/patient guest relations representative demonstrates understanding of disease process, treatment [...] Score of =/> 25 or indicated by [facility] Assessment Goal: Patient should be free from fall Description: Interventions: 1. [place] to environment 2. Hourly rounds addressing the [...] non-skid footwear 11. Teach patient and patient guest relations representative to maintain environment for safety and [...] (cane, walker) within reach 19. Request patient guest relations representative bring adaptive equipment/mobility aids from home or obtain and provide as needed 20. Consult pharmacy regarding effects of med's affecting mobility, cognition, and alternatives 21. Obtain physician order for PT if risk factors associated with mobility are present 22. Obtain physician order for OT as appropriate 23. Utilize diversional activities 24. Educate patient and patient guest relations representative how to maintain a safe environment during visitationtimes (notify nurse prior to leaving bedside) 25. Consider appropriateness of medical or non-hospital medical biller 26. Set up voiding schedule as appropriate [...] supplement as ordered 13. Collaborate with clinical pv design and installation technician 14. Include patient/ patient's guest relations representative in decisions related to nutrition Outcome: [...] the pelvis, flexible sigmoidoscopy Surgeon: Kehinde Monson Automotive Electrical Fitter: [id number] present for all portions of the [...] condition the family was updated postoperatively. * PT/OT/PARTY DIRECTOR - Vale Bhatt OTR/L - 08/07/2025 11:46 AM EST Occupational Therapy OT Type of Visit: Medical deferral (will continue to follow) Reason For Medical Deferral: Off unit Off Unit: Surgery * PT/OT/PARTY DIRECTOR - Ginny Mcghee, PT - 08/07/2025 11:42 [...] Description: INTERVENTIONS: 1. Encourage patient or legal guest relations representative to report early pain and ask [...] per policy 9. Teach patient or legal guest relations representative interventions for comforting Outcome: Progressing Note: [...] at the bedside 7. Instruct patient/ patient guest relations representative about use of safety devices 8. Include patient/ patient guest relations representative in decisions related to safety Outcome: [...] hygiene technique. 7. Identify and instruct patient/patient guest relations representative in use of appropriate isolation precautionsfor identified infection/symptoms. 8. Provide and discuss with patient/patient guest relations representative on educational MDRO sheet. 9. Encourage and monitor nutritional status daily and consult pv design and installation technician if indicated. 10. Implement neutropenic guidelines as needed. Outcome: Progressing Note: Evaluation of progress towards goal: Pts VSS and labs WNL, no S/S of infection, all insertionsites clean dry and intact, pt and staff utilize proper handwashing technique. Problem: Knowledge Deficit Goal: Patient/patient guest relations representative demonstrates understanding of disease process, treatment [...] goal: Pt discharge plan started on admission, eye care professional involved, discharges needs assessed. Problem: Moderate - High Risk Fall Score Description: Torres Fall Score of =/> 25 or indicated by [facility] Assessment Goal: Patient should be free from fall Description: Interventions: 1. [place] to environment 2. Hourly rounds addressing the [...] non-skid footwear 11. Teach patient and patient guest relations representative to maintain environment for safety and [...] (cane, walker) within reach 19. Request patient guest relations representative bring adaptive equipment/mobility aids from home or obtain and provide as needed 20. Consult pharmacy regarding effects of med's affecting mobility, cognition, and alternatives 21. Obtain physician order for PT if risk factors associated with mobility are present 22. Obtain physician order for OT as appropriate 23. Utilize diversional activities 24. Educate patient and patient guest relations representative how to maintain a safe environment during visitationtimes (notify nurse prior to leaving bedside) 25. Consider appropriateness of medical or non-hospital medical biller 26. Set up voiding schedule as appropriate [...] supplement as ordered 13. Collaborate with clinical pv design and installation technician 14. Include patient/ patient's guest relations representative in decisions related to nutrition Outcome: [...] Description: INTERVENTIONS: 1. Encourage patient or legal guest relations representative to report early pain and ask [...] per policy 9. Teach patient or legal guest relations representative interventions for comforting Outcome: Progressing Note: [...] at the bedside 7. Instruct patient/ patient guest relations representative about use of safety devices 8. Include patient/ patient guest relations representative in decisions related to safety Outcome: [...] hygiene technique. 7. Identify and instruct patient/patient guest relations representative in use of appropriate isolation precautionsfor identified infection/symptoms. 8. Provide and discuss with patient/patient guest relations representative on educational MDRO sheet. 9. Encourage and monitor nutritional status daily and consult pv design and installation technician if indicated. 10. Implement neutropenic guidelines as needed. Outcome: Progressing Note: Evaluation of progress towards goal: Pt free from signs of infection at this time, will continue to monitor for signs and symptoms of infection during shift. Pt afebrile. Problem: Knowledge Deficit Goal: Patient/patient guest relations representative demonstrates understanding of disease process, treatment [...] Score of =/> 25 or indicated by [facility] Assessment Goal: Patient should be free from fall Description: Interventions: 1. [place] to environment 2. Hourly rounds addressing the [...] non-skid footwear 11. Teach patient and patient guest relations representative to maintain environment for safety and [...] (cane, walker) within reach 19. Request patient guest relations representative bring adaptive equipment/mobility aids from home or obtain and provide as needed 20. Consult pharmacy regarding effects of med's affecting mobility, cognition, and alternatives 21. Obtain physician order for PT if risk factors associated with mobility are present 22. Obtain physician order for OT as appropriate 23. Utilize diversional activities 24. Educate patient and patient guest relations representative how to maintain a safe environment during visitationtimes (notify nurse prior to leaving bedside) 25. Consider appropriateness of medical or non-hospital medical biller 26. Set up voiding schedule as appropriate [...] supplement as ordered 13. Collaborate with clinical pv design and installation technician 14. Include patient/ patient's guest relations representative in decisions related to nutrition Outcome: [...] Description: INTERVENTIONS: 1. Encourage patient or legal guest relations representative to report early pain and ask [...] per policy 9. Teach patient or legal guest relations representative interventions for comforting Outcome: Progressing Note: [...] at the bedside 7. Instruct patient/ patient guest relations representative about use of safety devices 8. Include patient/ patient guest relations representative in decisions related to safety Outcome: [...] hygiene technique. 7. Identify and instruct patient/patient guest relations representative in use of appropriate isolation precautionsfor identified infection/symptoms. 8. Provide and discuss with patient/patient guest relations representative on educational MDRO sheet. 9. Encourage and monitor nutritional status daily and consult pv design and installation technician if indicated. 10. Implement neutropenic guidelines as needed. Outcome: Progressing Note: Evaluation of progress towards goal: Hand hygiene, monitor labs and vitals Problem: Knowledge Deficit Goal: Patient/patient guest relations representative demonstrates understanding of disease process, treatment [...] Score of =/> 25 or indicated by [facility] Assessment Goal: Patient should be free from fall Description: Interventions: 1. [place] to environment 2. Hourly rounds addressing the [...] non-skid footwear 11. Teach patient and patient guest relations representative to maintain environment for safety and [...] (cane, walker) within reach 19. Request patient guest relations representative bring adaptive equipment/mobility aids from home or obtain and provide as needed 20. Consult pharmacy regarding effects of med's affecting mobility, cognition, and alternatives 21. Obtain physician order for PT if risk factors associated with mobility are present 22. Obtain physician order for OT as appropriate 23. Utilize diversional activities 24. Educate patient and patient guest relations representative how to maintain a safe environment during visitationtimes (notify nurse prior to leaving bedside) 25. Consider appropriateness of medical or non-hospital medical biller 26. Set up voiding schedule as appropriate [...] supplement as ordered 13. Collaborate with clinical pv design and installation technician 14. Include patient/ patient's guest relations representative in decisions related to nutrition Outcome: [...] patient need discharge transportation arranged? No 3-Midnight Fitness Assistant met with patient, introduced self, and explained [...] yesterday but information is not in chart. sole scraper contacted Registration again today to follow up with patient to get information. Patient reports her spouse took home her wallet so she was unable to provide cards to me. IMM given to patient for signature, copy placed in chart. PCP: ANN MARIE SIDHU MD Pharmacy: prefers [facility] PCP and pharmacy [...] possible discharge later today. Annita Still MD Ob-Still Pump Operator Resident, PGY-2 * Op Note - Sarah Strange DO - 08/04/2025 9:37 AM EST Gynecologic Operative Note NAME: Eunice Anderson : 1955 PROCEDURE DATE: 08/04/2025 Pre-op Diagnosis: vaginal bleeding with acute blood loss anemia Post-op Diagnosis: same as above Procedure: Dilation and Curettage Surgeon: Dr. Dustin Santiago Automotive Electrical Fitter: Dr Sarah Strange D.O. PGY-2 Anesthesia Type: [...] were correct x 2. Sarah Strange DO Psychotherapist Resident, PGY-2 Cosigned by Dustin Santiago MD [...] Plan of Treatment DateTypeDepartmentCare Team (Latest Contact Info)Pcyvbdskgth61/24/2025[facility] [address] [place] [phone] Justin Mackey MD [address] [place] [phone] 08/21/2025 8:00 AM ESTInfusion [facility] - Medical Oncology [address] [place] [phone] 08/21/2025 11:00 AM ESTOffice Visit Paola [place] - Medical Oncology [address] [place] [phone] Melinda Coffey PA [address] [place] [address] 09/10/2025 11:00 AM ESTInfusion Paola [place] [facility] - Medical Oncology [address] [place] [address] 09/10/2025 1:30 PM ESTOffice Visit [facility], A Department of [address] [place] [phone] Annita Patton, CUSTODIAL AIDE-FREIGHT CHECKER [address] [facility], [address] [place] [address] 09/11/2025 8:00 AM ESTInfusion Paola [place] [facility] - Medical Oncology [address] [place] [phone] NameTypePriorityAssociated DiagnosesDate/TimeSurgical PathologyPathology and FhhxomyoOreazxr67/08/2025 10:06 AM ESTNameTypePriorityAssociated DiagnosesOrder ScheduleSurgical PathologyPathology and CytologyRoutineRelease Upon Ordering for 1 Occurrences starting 08/04/2025, 1 completedNamePriorityAssociated Diagnoses Date/TimeINSERTION PORT A CATH needed for chemotherapy documented as of this encounter Goals GoalPatient Goal TypeAssociated ProblemsRecent ProgressPatient-Stated?Author return home Milagros Escobedo RN Note: Evaluation of progress towards goal: patient plans to return home with family support documented as of this encounter Procedures Procedure NamePriorityDate/TimeAssociated DiagnosisCommentsCROSSMATCH RBCRoutine 08/11/2025 12:37 AM EST CBC WITH AUTO AQNXKPQOKCJFUgvhlqo86/13/2025 5:32 AM EST COMPREHENSIVE METABOLIC JDLOGYfvybyk74/13/2025 5:32 AM EST CBC WITH AUTO HRHCSAPCSEMTTrbxego52/12/2025 5:58 AM EST TYPE AND KWYRHQHpfaqkb28/12/2025 5:57 AM EST COMPREHENSIVE METABOLIC BZKMMKaunsef38/12/2025 5:57 AM EST SURGICAL OAVBCEHKUGtkvhgl42/11/2025 3:42 PM EST NON-GYNECOLOGIC SRFWVXPWOckmzax94/11/2025 2:44 PM EST TRANSFUSE RED BLOOD DHKLKBglvutu62/11/2025 2:23 PM ESTFLEXIBLE SIGMOIDOSCOPY 08/07/2025 1:30 PM EST ENDOMETRIAL CANCER Case Notes [facility] EPIC 2W MOVE UP TO 1130 Special Needs MOVE UP TO 1130 DAVINCI HYSTERECTOMY SALPINGO YUGPWRTFEEQB07/11/2025 1:30 PM EST ENDOMETRIAL CANCER Case Notes [place] EPIC 2W MOVE UP TO 1130 Special Needs MOVE UP TO 1130 CBC WITH AUTO XNZKUPISOQLHAbtgika75/11/2025 5:40 AM EST COMPREHENSIVE METABOLIC GBFUEYbenjms05/11/2025 5:40 AM EST CROSSMATCH QDDUawskmq29/10/2025 6:37 AM ESTCBC WITH AUTO DIFFERENTIALRoutine 08/06/2025 6:23 AM EST COMPREHENSIVE METABOLIC SAECJQxnwgvo21/10/2025 6:23 AM EST COMPREHENSIVE METABOLIC DXOHCQzezcmp77/09/2025 8:[address] CHEST W YVNEZrxnsez64/09/2025 12:11 PM EST CBC WITH AUTO AMRGWIUVMOPZMghdhrs65/09/2025 4:02 AM EST COMPREHENSIVE METABOLIC ZVOZZNakdzyb87/09/2025 4:02 AM EST CBC WITH AUTO ZQQFNXMTQQVKUukykbc81/08/2025 12:18 PM EST TRANSFUSE RED BLOOD UMVEPHhwgvhu77/08/2025 10:00 AM ESTPR HYSTEROSCOPY,W/ENDO BX 08/04/2025 9:37 AM EST vaginal bleed TRANSFUSE RED BLOOD CCEDYRerutrm69/08/2025 8:39 AM ESTREPEATED ABORHRoutine 08/04/2025 8:27 AM ESTREPEATED SBZQBAsaesej01/08/2025 7:41 AM EST CROSSMATCH NROYwdcokz91/08/2025 5:30 AM EST CBC WITH AUTO KINYCSYEACOFVgtvnqa25/08/2025 5:30 AM EST HBEJDvlbaqo16/08/2025 5:30 AM EST PROTIME & CZJParyxam53/08/2025 5:30 AM EST ONMVMEQZGXWdjnkep48/08/2025 5:30 AM EST TYPE AND NIGORJSfrxawi74/08/2025 5:30 AM EST COMPREHENSIVE METABOLIC YSPBTBglmmyi48/08/2025 5:30 AM EST PULSE OXIMETRY, QUASNkxfvef19/08/2025 3:38 AM ESTdocumented in this encounter Results * Crossmatch RBC:Number of Units: 2 (08/11/2025 12:37 AM EST)ComponentValueRef RangeTest MethodAnalysis TimePerformed AtPathologist SignatureBlood component [id number] BANK - Axsome TherapeuticsKYUnit [id number] BANK - WELLSKY Unit ABOOBLOOD BANK - WELLSKYUnit RHPOSBLOOD BANK - WELLSKYCrossmatch CompatibleBLOOD BANK - WELLSKYStatus of unitTRANSFUSEDBLOOD BANK - WELLSKY Expiration [id number] BANK - WELLSKYBB Type Grlconx7178YPXUB BANK - WELLSKYSpecimen (Source)Anatomical Location / LateralityCollection Method / VolumeCollection TimeReceived TimeBloodVenous blood / Utbmyxm9108/11/2025 12:37 AM EST08/04/2025 5:47 AM EST Narrative Authorizing ProviderResult TypeResult StatusKassidy Rejent MDBLOOD BANK PRODUCT ORDERABLESEdited Result - FinalPerforming OrganizationAddressCity/State/ZIP Code Phone Number [facility] * (ABNORMAL) CBC auto differential (08/09/2025 5:32 AM EST)ComponentValueRef RangeTest MethodAnalysis TimePerformed AtPathologist IqdtqutpkOHY06.1(H)4 - 11 X10^9/L110/09/2024 7:00 AM [facility] LABORATORYRBC Count2.98 (L)3.8 - 5.2 X10^12/L110/09/2024 7:00 AM [facility] Hemoglobin8.9(L)11.7 - 15.5 g/dL08/09/2025 7:00 AM [facility] OGHVZYZEPYNrhdtdkcwe11.3(L)35 - 47 %08/09/2025 7:00 AM [facility] XAHZSNYCMXBTH5741 - 100 fL08/09/2025 7:00 AM [facility] LCJCYCJECZNIV36.027 - 34 pg08/09/2025 7:00 AM [facility] UZVUYPSFFEGWWI26.032 - 36 g/dL08/09/2025 7:00 AM [facility] LZXSEQDWFXKUC39.7(H)11.5 - 15 %08/09/2025 7:00 AM [facility] LABORATORYPlatelet Aeepa280171 - 450 X10^9/L110/09/2024 7:00 AM [facility] LABORATORYMPV7.97 - 12 fL08/09/2025 7:00 AM [facility] LABORATORYNeutrophils %75.6%08/09/2025 7:00 AM [facility] LABORATORYComment:This is an appended report. These results have been appended to a previously preliminary verified report.Lymphocytes % 11.1%08/09/2025 7:00 AM [facility] LABORATORYComment:This is an appended report. These results have been appended to a previously preliminary verified report.Monocytes %6.4%08/09/2025 7:00 AM [facility] LABORATORYComment:This is an appended report. These results have been appended to a previously preliminary verified report.Eosinophils % 5.8%08/09/2025 7:00 AM [facility] LABORATORYComment:This is an appended report. These results have been appended to a previously preliminary verified report.Basophils %1.1%08/09/2025 7:00 AM [facility] LABORATORYComment:This is an appended report. These results have been appended to a previously preliminary verified report.Neutrophils Absolute (A)10.7(H)1.5 - 6.6 X10^9/L110/09/2024 7:00 AM [facility] LABORATORYComment:This is an appended report. These results have been appended to a previously preliminary verified report.Lymphocytes Absolute1.6 1.0 - 3.5 X10^9/L110/09/2024 7:00 AM [facility] Comment:This is an appended report. These results have been appended to a previously preliminary verified report.Monocytes Absolute0.90.0 - 0.9 X10^9/L 08/09/2025 7:00 AM [facility] LABORATORYComment:This is an appended report. These results have been appended to a previously preliminary verified report.Eosinophils Absolute0.8(H)0.0 - 0.4 X10^9/L110/09/2024 7:00 AM [facility] LABORATORYComment:This is an appended report. These results have been appended to a previously preliminary verified report. Basophils Absolute0.10.0 - 0.2 X10^9/L110/09/2024 7:00 AM [facility] LABORATORYComment:This is an appended report. These results have been appended to a previously preliminary verified report.Differential Type AUTOMATED KVOCMPSOQCDM52/13/2025 7:00 AM [facility] LABORATORYComment:This is an appended report. These results have been appended to a previously preliminary verified report.Specimen (Source)Anatomical Location / LateralityCollection Method / VolumeCollection TimeReceived Time BloodVenous blood / UnknownVenipuncture / Sjemvfi2708/09/2025 5:32 AM EST 08/09/2025 5:54 AM EST Narrative Authorizing ProviderResult TypeResult StatusBrittnee PASCUAL BLOOD ORDERABLESFinal ResultPerforming OrganizationAddressCity/State/ZIP CodePhone Number [facility] [address] [place] [phone], * (ABNORMAL) Comprehensive metabolic panel (08/09/2025 5:32 AM EST)Component ValueRef RangeTest MethodAnalysis TimePerformed AtPathologist SignatureSODIUM 140294 - 146 mmol/L110/09/2024 6:26 AM [facility] POTASSIUM3.3(L)3.5 - 5.0 mmol/L110/09/2024 6:26 AM [facility] MHTVVYAKJOEECAZBSZ40684 - 109 mmol/L110/09/2024 6:26 AM [facility] LABORATORYCARBON DOLAULT1174 - 32 mmol/L110/09/2024 6:26 AM [facility] LABORATORYANION JLZ626 - 15 mmol/L110/09/2024 6:26 AM EST [facility] LABORATORYBLOOD UREA ZZOJPOBU229 - 27 mg/dL08/09/2025 6:26 AM [facility] LABORATORYCREATININE0.650.40 - 1.00 mg/dL 08/09/2025 6:26 AM [facility] LABORATORYComment:METHOD TRACEABLE TO IDCA YLPSMOTLLPBEQOV0185 - 99 mg/dL08/09/2025 6:26 AM [facility] LABORATORYCALCIUM8.1(L)8.5 - 10.5 mg/dL08/09/2025 6:26 AM [facility] LABORATORYTOTAL PROTEIN5.4(L)6.0 - 8.0 g/dL 08/09/2025 6:26 AM [facility] LABORATORYALBUMIN3.0(L)3.2 - 5.3 g/dL08/09/2025 6:26 AM [facility] LABORATORYALKALINE VBQUNRYPADN8010 - 130 U/L110/09/2024 6:26 AM [facility] BCPSSOJITIIQZ83<=41 U/L110/09/2024 6:26 AM [facility] LABORATORYALT6<=31 U/L110/09/2024 6:26 AM [facility] LABORATORYBILIRUBIN,TOTAL0.50.3 - 1.2 mg/dL08/09/2025 6:26 AM [facility] LABORATORYEGFR Non-Race Dependent>90>=60 ml/min/1.73sq.m 08/09/2025 6:26 AM [facility] LABORATORYComment: Reported eGFR is based on the CKD-EPI 2020 equation that does not use a race coefficient. Specimen (Source)Anatomical Location / LateralityCollection Method / Volume Collection TimeReceived TimeBloodVenous blood / UnknownVenipuncture / Unknown 08/09/2025 5:32 AM EST08/09/2025 5:54 AM EST Narrative Authorizing ProviderResult TypeResult StatusHala [place] MDLAB BLOOD ORDERABLESFinal ResultPerforming OrganizationAddressCity/State/ZIP CodePhone Number [facility] [address] [place] [address], * (ABNORMAL) CBC auto differential (08/08/2025 5:58 AM EST)ComponentValueRef RangeTest MethodAnalysis TimePerformed AtPathologist PsqsqggibSKA52.1(H)4 - 11 X10^9/L110/08/2024 7:17 AM [facility] LABORATORYRBC Count2.95 (L)3.8 - 5.2 X10^12/L110/08/2024 7:17 AM [facility] Hemoglobin8.5(L)11.7 - 15.5 g/dL08/08/2025 7:17 AM [facility] SJGJLKDVLPQncqmrrhvs64.1(L)35 - 47 %08/08/2025 7:17 AM [facility] VBFEIWAOBCVMY8780 - 100 fL08/08/2025 7:17 AM [facility] OUZLELNCYFZWH66.727 - 34 pg08/08/2025 7:17 AM [facility] LSCEBJQANAPHFW62.532 - 36 g/dL08/08/2025 7:17 AM [facility] MOGVRZQJAZGHH05.7(H)11.5 - 15 %08/08/2025 7:17 AM [facility] LABORATORYPlatelet Lsmbc423799 - 450 X10^9/L110/08/2024 7:17 AM [facility] LABORATORYMPV8.17 - 12 fL08/08/2025 7:17 AM [facility] LABORATORYNeutrophils %88.6%08/08/2025 7:17 AM [facility] LABORATORYComment:This is an appended report. These results have been appended to a previously preliminary verified report.Lymphocytes % 5.1%08/08/2025 7:17 AM [facility] LABORATORYComment:This is an appended report. These results have been appended to a previously preliminary verified report.Monocytes %5.9%08/08/2025 7:17 AM [facility] LABORATORYComment:This is an appended report. These results have been appended to a previously preliminary verified report.Eosinophils % 0.1%08/08/2025 7:17 AM [facility] LABORATORYComment:This is an appended report. These results have been appended to a previously preliminary verified report.Basophils %0.3%08/08/2025 7:17 AM [facility] LABORATORYComment:This is an appended report. These results have been appended to a previously preliminary verified report.Neutrophils Absolute (A)16.0(H)1.5 - 6.6 X10^9/L110/08/2024 7:17 AM [facility] LABORATORYComment:This is an appended report. These results have been appended to a previously preliminary verified report.Lymphocytes Absolute0.9 (L)1.0 - 3.5 X10^9/L110/08/2024 7:17 AM [facility] Comment:This is an appended report. These results have been appended to a previously preliminary verified report.Monocytes Absolute1.1(H)0.0 - 0.9 X10^9/L110/08/2024 7:17 AM [facility] LABORATORYComment:This is an appended report. These results have been appended to a previously preliminary verified report.Eosinophils Absolute0.00.0 - 0.4 X10^9/L110/08/2024 7:17 AM [facility] LABORATORYComment:This is an appended report. These results have been appended to a previously preliminary verified report.Basophils Absolute0.00.0 - 0.2 X10^9/L110/08/2024 7:17 AM [facility] LABORATORYComment:This is an appended report. These results have been appended to a previously preliminary verified report.Differential TypeAUTOMATED VFWPYUQUFIEH39/12/2025 7:17 AM [facility] LABORATORYComment:This is an appended report. These results have been appended to a previously preliminary verified report.Specimen (Source)Anatomical Location / LateralityCollection Method / VolumeCollection TimeReceived Time BloodVenous blood / UnknownVenipuncture / Yrqkamp5108/08/2025 5:58 AM EST 08/08/2025 6:30 AM EST Narrative Authorizing ProviderResult TypeResult StatusHala Magdaleno Sam MDLAB BLOOD ORDERABLESFinal ResultPerforming OrganizationAddressCity/State/ZIP CodePhone Number [facility] [address] [place] [address], * (ABNORMAL) Comprehensive metabolic panel (08/08/2025 5:57 AM EST)Component ValueRef RangeTest MethodAnalysis TimePerformed AtPathologist SignatureSODIUM 278377 - 146 mmol/L110/08/2024 7:06 AM [facility] POTASSIUM4.03.5 - 5.0 mmol/L110/08/2024 7:06 AM [facility] UOTCLDSOYFLIPCYAWE56213 - 109 mmol/L110/08/2024 7:06 AM [facility] LABORATORYCARBON JXFRFOC0571 - 32 mmol/L110/08/2024 7:06 AM [facility] LABORATORYANION GAP95 - 15 mmol/L110/08/2024 7:06 AM EST [facility] LABORATORYBLOOD UREA JFYQAGFN664 - 27 mg/dL08/08/2025 7:06 AM [facility] LABORATORYCREATININE0.610.40 - 1.00 mg/dL 08/08/2025 7:06 AM [facility] LABORATORYComment:METHOD TRACEABLE TO IDCA NOYVLVBKBRYKGPB129(H)65 - 99 mg/dL08/08/2025 7:06 AM EST [facility] LABORATORYCALCIUM8.58.5 - 10.5 mg/dL08/08/2025 7:06 AM [facility] LABORATORYTOTAL PROTEIN5.4(L)6.0 - 8.0 g/dL 08/08/2025 7:06 AM [facility] LABORATORYALBUMIN3.23.2 - 5.3 g/dL08/08/2025 7:06 AM [facility] LABORATORYALKALINE MBXBQHVCPCC4986 - 130 U/L110/08/2024 7:06 AM [facility] YZHNMGTPTJZFE43<=41 U/L110/08/2024 7:06 AM [facility] LABORATORYALT3<=31 U/L110/08/2024 7:06 AM [facility] LABORATORYBILIRUBIN,TOTAL0.80.3 - 1.2 mg/dL08/08/2025 7:06 AM [facility] LABORATORYEGFR Non-Race Dependent>90>=60 ml/min/1.73sq.m 08/08/2025 7:06 AM [facility] LABORATORYComment: Reported eGFR is based on the CKD-EPI 2020 equation that does not use a race coefficient. Specimen (Source)Anatomical Location / LateralityCollection Method / Volume Collection TimeReceived TimeBloodVenous blood / UnknownVenipuncture / Unknown 08/08/2025 5:57 AM EST08/08/2025 6:30 AM EST Narrative Authorizing ProviderResult TypeResult StatusHalcarey PASCUAL BLOOD ORDERABLESFinal ResultPerforming OrganizationAddressCity/State/ZIP CodePhone Number [facility] [address] [place] [address], * Type and screen(includes indirect grady) (08/08/2025 5:57 AM EST)Component ValueRef RangeTest MethodAnalysis TimePerformed AtPathologist SignatureABOO 08/08/2025 7:52 AM ESTTTH RAJI - UPUQRAVPMOihbzfva36/12/2025 7:52 AM ESTTTH BB - WELLSKYAntibody FqumpkBbluahdu37/12/2025 7:52 AM ESTTTH BB - WELLSKYSpecimen (Source)Anatomical Location / LateralityCollection Method / VolumeCollection TimeReceived TimeBloodVenous blood / UnknownVenipuncture / Lxtwnrf6508/08/2025 5:57 AM EST08/08/2025 6:54 AM EST Narrative Authorizing ProviderResult TypeResult StatusAleia K Catherine MDBLOOD BANK TEST ORDERABLESEdited Result - FinalPerforming OrganizationAddressCity/State/ZIP Code Phone Number [facility] [address] [place] [address], * Surgical Pathology (08/07/2025 3:42 PM EST)ComponentValueRef RangeTest Method Analysis TimePerformed AtPathologist SignatureCase ReportSurgical Pathology Report ? Case: [id number] ? Authorizing Provider: ??Dennis Monson MD ?Collected: ? 08/07/2025 1542 ? [facility] ??Received: ?08/07/2025 1647 ? - Surgery ? Pathologist: ? Darryl Alcantara MD ? Specimens: ?? 1) - Uterus, Fallopian Tube, Ovary, UTERUS, CERVIX, BILATERAL TUBES AND OVARIES ? 2) - Pelvis, LEFT POSTERIOR PELVIS BIOPSY ? 08/14/2025 2:47 PM [facility] LABORATORYFinal Diagnosis1. Uterus, fallopian tubes [...] posterior pelvis, biopsy: Metastatic carcinoma.08/14/2025 2:47 PM [facility] at 1447 ESTGross Description1. [...] ovary Fixation Time: Tissue removed from patient: 1541 Time specimen placed in formalin: 1541 Cold ischemic time: Less than 1 minute Total fixation time: 27 hours (18,ns,[id number], m8.1) . 2. Received in formalin labeled ANDERSON, left posterior pelvis biopsy is pink-lambert feathery and friable soft tissue admixed with hemorrhagic material, 2.5 x 2.5 x 1.2 cm in aggregate. The specimen is submitted entirely in cassettes A- C. (3,ns,[id number], m8.1) 08/14/2025 2:47 PM [facility] LABORATORYSynoptic ChecklistENDOMETRIUM ENDOMETRIUM - All [...] (no nodes submitted or found)08/14/2025 2:47 PM [facility] LABORATORYEmbedded Tjuurb0608/14/2025 2:47 PM [facility] LABORATORYSpecimen (Source)Anatomical Location / LateralityCollection Method / VolumeCollection TimeReceived TimeTissue (Uterus, Fallopian Tube, Ovary)08/07/2025 3:42 PM EST08/07/2025 4:47 PM ESTComment:Pre-op diagnosis: ENDOMETRIAL CANCERTissue specimen (specimen)Pelvic region / Ntjcpyf1808/07/2025 3:43 PM EST08/07/2025 4:47 PM ESTComment:Pre-op diagnosis: ENDOMETRIAL CANCER Narrative Authorizing ProviderResult TypeResult Carli Monson MDPATHOLOGY/CYTOLOGY ORDERABLESFinal ResultPerforming OrganizationAddressCity/State/ZIP CodePhone Number [facility] [address] [place] [address], * Transfuse RBC:1 Unit (08/07/2025 2:56 PM EST) Narrative Authorizing ProviderResult TypeResult StatusAleia K Catherine MDBLOOD TRANSFUSION ORDERABLESFinal Result * Transfuse RBC:1 Unit (08/07/2025 2:56 PM EST) Narrative Authorizing ProviderResult TypeResult StatusAleia K Catherine MDBLOOD TRANSFUSION ORDERABLESFinal Result * Cytology non-gynecologic (08/07/2025 2:44 PM EST)ComponentValueRef RangeTest MethodAnalysis TimePerformed AtPathologist SignatureCase ReportMedical Cytology Report ? Case: [id number] ? Authorizing Provider: ??Dennis Monson MD ?Collected: ? 08/07/2025 1444 ? [facility] ??Received: ?08/07/2025 1501 ? - Surgery ? Pathologist: ? Darryl Alcantara MD ? Specimen: ?Pelvis, Pelvis fluid ? 08/14/2025 2:58 PM [facility] LABORATORYFinal DiagnosisPelvic fluid: Positive for Carcinoma, rare cells.08/14/2025 2:58 PM [facility] at 1458 ESTGross DescriptionReceived was 20ml of red fluid unfixed, labeled as Anderson, pelvis . CytoLyt added in lab. Specimen placed in formalin at 17:00 and had a total fixation time of 8 hours. 08/14/2025 2:58 PM [facility] LABORATORYEmbedded Images 08/14/2025 2:58 PM [facility] LABORATORYSpecimen (Source) Anatomical Location / LateralityCollection Method / VolumeCollection Time Received TimeFluidPelvic region / Dolflaj3508/07/2025 2:44 PM EST08/07/2025 3:01 PM ESTComment:Pre-op diagnosis: ENDOMETRIAL CANCER Narrative Authorizing ProviderResult TypeResult StatusAdam Raven Monson MDPATHOLOGY/CYTOLOGY ORDERABLESFinal ResultPerforming OrganizationAddressCity/State/ZIP CodePhone Number [facility] [address] [place] [phone], * (ABNORMAL) Comprehensive metabolic panel (08/07/2025 5:40 AM EST)Component ValueRef RangeTest MethodAnalysis TimePerformed AtPathologist SignatureSODIUM 201753 - 146 mmol/L110/07/2024 6:42 AM [facility] POTASSIUM3.2(L)3.5 - 5.0 mmol/L110/07/2024 6:42 AM [facility] UQMJGTLQAPPXDZFGLX614(H)98 - 109 mmol/L110/07/2024 6:42 AM [facility] LABORATORYCARBON HUESMKD3178 - 32 mmol/L110/07/2024 6:42 AM [facility] LABORATORYANION GAP85 - 15 mmol/L110/07/2024 6:42 AM EST [facility] LABORATORYBLOOD UREA EHUNXPUB094 - 27 mg/dL08/07/2025 6:42 AM [facility] LABORATORYCREATININE0.670.40 - 1.00 mg/dL 08/07/2025 6:42 AM [facility] LABORATORYComment:METHOD TRACEABLE TO IDMS KUYFHQUOKBCTBSL973(H)65 - 99 mg/dL08/07/2025 6:42 AM [facility] LABORATORYCALCIUM8.0(L)8.5 - 10.5 mg/dL08/07/2025 6:42 AM [facility] LABORATORYTOTAL PROTEIN5.6(L)6.0 - 8.0 g/dL08/07/2025 6:42 AM [facility] LABORATORYALBUMIN3.0(L)3.2 - 5.3 g/dL08/07/2025 6:42 AM [facility] LABORATORYALKALINE AUUIPQSMUWW1472 - 130 U/L110/07/2024 6:42 AM [facility] FMROLXMOZIEVH51<=41 U/L110/07/2024 6:42 AM [facility] LABORATORYALT4<=31 U/L110/07/2024 6:42 AM [facility] LABORATORYBILIRUBIN,TOTAL0.70.3 - 1.2 mg/dL08/07/2025 6:42 AM [facility] LABORATORYEGFR Non-Race Dependent>90>=60 ml/min/1.73sq.m 08/07/2025 6:42 AM [facility] LABORATORYComment: Reported eGFR is based on the CKD-EPI 2020 equation that does not use a race coefficient. Specimen (Source)Anatomical Location / LateralityCollection Method / Volume Collection TimeReceived TimeBloodVenous blood / UnknownVenipuncture / Unknown 08/07/2025 5:40 AM EST08/07/2025 6:04 AM EST Narrative Authorizing ProviderResult TypeResult StatusHala Magdaleno PASCUAL BLOOD ORDERABLESFinal ResultPerforming OrganizationAddressCity/State/ZIP CodePhone Number [facility] [address] [place] [address], * (ABNORMAL) CBC auto differential (08/07/2025 5:40 AM EST)ComponentValueRef RangeTest MethodAnalysis TimePerformed AtPathologist CammpwhjtTUG39.4(H)4 - 11 X10^9/L110/07/2024 6:49 AM [facility] LABORATORYRBC Count2.87 (L)3.8 - 5.2 X10^12/L110/07/2024 6:49 AM [facility] Hemoglobin8.3(L)11.7 - 15.5 g/dL08/07/2025 6:49 AM [facility] XMWZBZTVLJSboarodjmd42.3(L)35 - 47 %08/07/2025 6:49 AM [facility] KKSNQTPMIZXDW2989 - 100 fL08/07/2025 6:49 AM [facility] WJJQJQYICKKON12.027 - 34 pg08/07/2025 6:49 AM [facility] ARRLNZZFXLXDTD08.932 - 36 g/dL08/07/2025 6:49 AM [facility] QZXRYYELODAYU04.1(H)11.5 - 15 %08/07/2025 6:49 AM [facility] LABORATORYPlatelet Xaplk073091 - 450 X10^9/L110/07/2024 6:49 AM [facility] LABORATORYMPV7.87 - 12 fL08/07/2025 6:49 AM [facility] LABORATORYBands %1%08/07/2025 6:49 AM [facility] LABORATORYComment:This is an appended report. These results have been appended to a previously preliminary verified report.Neutrophils %84% 08/07/2025 6:49 AM [facility] LABORATORYComment:This is an appended report. These results have been appended to a previously preliminary verified report.Lymphocytes %9%08/07/2025 6:49 AM [facility] LABORATORYComment:This is an appended report. These results have been appended to a previously preliminary verified report.Monocytes %5%08/07/2025 6:49 AM [facility] LABORATORYComment:This is an appended report. These results have been appended to a previously preliminary verified report. Eosinophils %1%08/07/2025 6:49 AM [facility] Comment:This is an appended report. These results have been appended to a previously preliminary verified report.Neutrophils Absolute (M)15.6(H)1.5 - 6.6 X10^9/L110/07/2024 6:49 AM [facility] LABORATORYComment: This is an appended report. These results have been appended to a previously preliminary verified report.Lymphocytes Absolute1.71.0 - 3.5 X10^9/L110/07/2024 6:49 AM [facility] LABORATORYComment:This is an appended report. These results have been appended to a previously preliminary verified report.Monocytes Absolute0.90.0 - 0.9 X10^9/L110/07/2024 6:49 AM [facility] LABORATORYComment:This is an appended report. These results have been appended to a previously preliminary verified report.Eosinophils Absolute0.20.0 - 0.4 X10^9/L110/07/2024 6:49 AM [facility] LABORATORYComment:This is an appended report. These results have been appended to a previously preliminary verified report.Polychromasia1+08/07/2025 6:49 AM [facility] LABORATORYComment:This is an appended report. These results have been appended to a previously preliminary verified report. Differential TypeMANUAL JRGMYBMVKEYV08/11/2025 6:49 AM [facility] LABORATORYComment:This is an appended report. These results have been appended to a previously preliminary verified report.Specimen (Source) Anatomical Location / LateralityCollection Method / VolumeCollection Time Received TimeBloodVenous blood / UnknownVenipuncture / Mffoldb0208/07/2025 5:40 AM EST08/07/2025 6:04 AM EST Narrative Authorizing ProviderResult TypeResult StatusBrittnee Sam MDLAB BLOOD ORDERABLESFinal ResultPerforming OrganizationAddressCity/State/ZIP CodePhone Number [facility] [address] [place] [address], * Crossmatch RBC:Number of Units: 1 (08/06/2025 6:37 AM EST)Specimen (Source) Anatomical Location / LateralityCollection Method / VolumeCollection Time Received TimeBloodVenous blood / Tybozcy7308/06/2025 6:37 AM EST Narrative Authorizing ProviderResult TypeResult StatusKassidnolan Still MDBLOOD BANK PRODUCT ORDERABLESFinal ResultPerforming OrganizationAddressCity/State/ZIP CodePhone Number [facility] * (ABNORMAL) Comprehensive metabolic panel (08/06/2025 6:23 AM EST)Component ValueRef RangeTest MethodAnalysis TimePerformed AtPathologist SignatureSODIUM 517450 - 146 mmol/L110/06/2024 7:33 AM [facility] POTASSIUM3.63.5 - 5.0 mmol/L110/06/2024 7:33 AM [facility] EFDLOKQRBEKFODAYQI235(H)98 - 109 mmol/L110/06/2024 7:33 AM [facility] LABORATORYCARBON PSLYTMF78(L)22 - 32 mmol/L110/06/2024 7:33 AM [facility] LABORATORYANION PAQ181 - 15 mmol/L110/06/2024 7:33 AM [facility] LABORATORYBLOOD UREA WHDHTRSN069 - 27 mg/dL 08/06/2025 7:33 AM [facility] LABORATORYCREATININE0.680.40 - 1.00 mg/dL08/06/2025 7:33 AM [facility] LABORATORYComment: METHOD TRACEABLE TO IDCA IBZVDUEMDADEQHP099(H)65 - 99 mg/dL08/06/2025 7:33 AM [facility] LABORATORYCALCIUM8.1(L)8.5 - 10.5 mg/dL08/06/2025 7:33 AM [facility] LABORATORYTOTAL PROTEIN5.6(L)6.0 - 8.0 g/dL08/06/2025 7:33 AM [facility] LABORATORYALBUMIN3.23.2 - 5.3 g/dL08/06/2025 7:33 AM [facility] LABORATORYALKALINE VPPWOLVLQWF3533 - 130 U/L110/06/2024 7:33 AM [facility] GSJLKELYJTUYU22<=41 U/L110/06/2024 7:33 AM [facility] LABORATORYALT5<=31 U/L110/06/2024 7:33 AM [facility] LABORATORYBILIRUBIN,TOTAL0.70.3 - 1.2 mg/dL08/06/2025 7:33 AM [facility] LABORATORYEGFR Non-Race Dependent>90>=60 ml/min/1.73sq.m 08/06/2025 7:33 AM [facility] LABORATORYComment: Reported eGFR is based on the CKD-EPI 2020 equation that does not use a race coefficient. Specimen (Source)Anatomical Location / LateralityCollection Method / Volume Collection TimeReceived TimeBloodVenous blood / UnknownVenipuncture / Unknown 08/06/2025 6:23 AM EST08/06/2025 7:03 AM EST Narrative Authorizing ProviderResult TypeResult StatusHala Magdaleno PASCUAL BLOOD ORDERABLESFinal ResultPerforming OrganizationAddressCity/State/ZIP CodePhone Number [facility] [address] [place] [address], * (ABNORMAL) CBC auto differential (08/06/2025 6:23 AM EST)ComponentValueRef RangeTest MethodAnalysis TimePerformed AtPathologist MiskejkxcZPC40.4(H)4 - 11 X10^9/L110/06/2024 8:07 AM [facility] LABORATORYRBC Count2.87 (L)3.8 - 5.2 X10^12/L110/06/2024 8:07 AM [facility] Hemoglobin8.3(L)11.7 - 15.5 g/dL08/06/2025 8:07 AM [facility] WDWWNWDSCZDfyyragtmz51.4(L)35 - 47 %08/06/2025 8:07 AM [facility] ZZJYKJQRFDFKC8618 - 100 fL08/06/2025 8:07 AM [facility] YCINBSAFBAHPJ20.027 - 34 pg08/06/2025 8:07 AM [facility] DHIMEXWANBQDYB91.832 - 36 g/dL08/06/2025 8:07 AM [facility] WNRABJSFKMIVW16.2(H)11.5 - 15 %08/06/2025 8:07 AM [facility] LABORATORYPlatelet Eepxs287821 - 450 X10^9/L110/06/2024 8:07 AM [facility] LABORATORYMPV8.27 - 12 fL08/06/2025 8:07 AM [facility] LABORATORYNeutrophils %78%08/06/2025 8:07 AM [facility] LABORATORYComment:This is an appended report. These results have been appended to a previously preliminary verified report.Lymphocytes %16 %08/06/2025 8:07 AM [facility] LABORATORYComment:This is an appended report. These results have been appended to a previously preliminary verified report.Monocytes %5%08/06/2025 8:07 AM [facility] LABORATORYComment:This is an appended report. These results have been appended to a previously preliminary verified report.Eosinophils %1%08/06/2025 8:07 AM [facility] LABORATORYComment:This is an appended report. These results have been appended to a previously preliminary verified report. Neutrophils Absolute (M)16.7(H)1.5 - 6.6 X10^9/L110/06/2024 8:07 AM [facility] LABORATORYComment:This is an appended report. These results have been appended to a previously preliminary verified report.Lymphocytes Absolute3.41.0 - 3.5 X10^9/L110/06/2024 8:07 AM [facility] LABORATORYComment:This is an appended report. These results have been appended to a previously preliminary verified report.Monocytes Absolute1.1(H)0.0 - 0.9 X10^9/L110/06/2024 8:07 AM [facility] LABORATORYComment:This is an appended report. These results have been appended to a previously preliminary verified report.Eosinophils Absolute0.20.0 - 0.4 X10^9/L110/06/2024 8:07 AM [facility] LABORATORYComment:This is an appended report. These results have been appended to a previously preliminary verified report.Polychromasia1+08/06/2025 8:07 AM [facility] LABORATORYComment:This is an appended report. These results have been appended to a previously preliminary verified report.Differential TypeMANUAL PABLGZXDTWIO03/10/2025 8:07 AM [facility] LABORATORYComment: This is an appended report. These results have been appended to a previously preliminary verified report.Specimen (Source)Anatomical Location / Laterality Collection Method / VolumeCollection TimeReceived TimeBloodVenous blood / UnknownVenipuncture / Spqrcxz0908/06/2025 6:23 AM EST08/06/2025 7:03 AM EST Narrative Authorizing ProviderResult TypeResult StatusHalcarey PASCUAL BLOOD ORDERABLESFinal ResultPerforming OrganizationAddressCity/State/ZIP CodePhone Number [facility] [address] [place] [phone], * (ABNORMAL) Comprehensive metabolic panel (08/05/2025 8:11 PM EST)Component ValueRef RangeTest MethodAnalysis TimePerformed AtPathologist SignatureSODIUM 324206 - 146 mmol/L110/05/2024 8:57 PM [facility] POTASSIUM3.3(L)3.5 - 5.0 mmol/L110/05/2024 8:57 PM [facility] JBAYWKJFKSXIIJCKLO284(H)98 - 109 mmol/L110/05/2024 8:57 PM [facility] LABORATORYCARBON JHCYSUR79(L)22 - 32 mmol/L110/05/2024 8:57 PM [facility] LABORATORYANION GAP75 - 15 mmol/L110/05/2024 8:57 PM [facility] LABORATORYBLOOD UREA VACHXFQR025 - 27 mg/dL 08/05/2025 8:57 PM [facility] LABORATORYCREATININE0.680.40 - 1.00 mg/dL08/05/2025 8:57 PM [facility] LABORATORYComment: METHOD TRACEABLE TO IDCA HAOJROUPQBHOELT304(H)65 - 99 mg/dL08/05/2025 8:57 PM [facility] LABORATORYCALCIUM8.0(L)8.5 - 10.5 mg/dL08/05/2025 8:57 PM [facility] LABORATORYTOTAL PROTEIN5.4(L)6.0 - 8.0 g/dL08/05/2025 8:57 PM [facility] LABORATORYALBUMIN3.0(L)3.2 - 5.3 g/dL08/05/2025 8:57 PM [facility] LABORATORYALKALINE WCCZNLLIHCM3239 - 130 U/L110/05/2024 8:57 PM [facility] BOEXWYSFFKGZU19<=41 U/L110/05/2024 8:57 PM [facility] LABORATORYALT5<=31 U/L110/05/2024 8:57 PM [facility] LABORATORYBILIRUBIN,TOTAL0.60.3 - 1.2 mg/dL08/05/2025 8:57 PM [facility] LABORATORYEGFR Non-Race Dependent>90>=60 ml/min/1.73sq.m 08/05/2025 8:57 PM [facility] LABORATORYComment: Reported eGFR is based on the CKD-EPI 2020 equation that does not use a race coefficient. Specimen (Source)Anatomical Location / LateralityCollection Method / Volume Collection TimeReceived TimeBloodVenous blood / UnknownVenipuncture / Unknown 08/05/2025 8:11 PM EST08/05/2025 8:30 PM EST Narrative Authorizing ProviderResult TypeResult StatusBrittnee PASCUAL BLOOD ORDERABLESFinal ResultPerforming OrganizationAddressCity/State/ZIP CodePhone Number [facility] [address] [place] [address], * CT chest with contrast (08/05/2025 12:11 [...] 7:20 AM Authorizing ProviderResult TypeResult StatusAlexandria Lasalla [facility] ORDERABLESFinal Result * (ABNORMAL) CBC auto differential (08/05/2025 4:02 AM EST)ComponentValueRef RangeTest MethodAnalysis TimePerformed AtPathologist UlucsuqalOLW70.8(H)4 - 11 X10^9/L110/05/2024 6:43 AM [facility] LABORATORYRBC Count2.76 (L)3.8 - 5.2 X10^12/L110/05/2024 6:43 AM [facility] Hemoglobin8.0(L)11.7 - 15.5 g/dL08/05/2025 6:43 AM [facility] YNNWZRZBUNRelozortjj25.4(L)35 - 47 %08/05/2025 6:43 AM [facility] HOSYLWYLSIUZH2229 - 100 fL08/05/2025 6:43 AM [facility] OFKEMJJQEQILD94.127 - 34 pg08/05/2025 6:43 AM [facility] AZCLWNNAHXEREU43.032 - 36 g/dL08/05/2025 6:43 AM [facility] DDGTRVNKDLLTQ53.8(H)11.5 - 15 %08/05/2025 6:43 AM [facility] LABORATORYPlatelet Szdsp864324 - 450 X10^9/L110/05/2024 6:43 AM [facility] LABORATORYMPV8.17 - 12 fL08/05/2025 6:43 AM [facility] LABORATORYNeutrophils %84.1%08/05/2025 6:43 AM [facility] LABORATORYComment:This is an appended report. These results have been appended to a previously preliminary verified report.Lymphocytes % 10.6%08/05/2025 6:43 AM [facility] LABORATORYComment:This is an appended report. These results have been appended to a previously preliminary verified report.Monocytes %5.1%08/05/2025 6:43 AM [facility] LABORATORYComment:This is an appended report. These results have been appended to a previously preliminary verified report.Eosinophils % 0.0%08/05/2025 6:43 AM [facility] LABORATORYComment:This is an appended report. These results have been appended to a previously preliminary verified report.Basophils %0.2%08/05/2025 6:43 AM [facility] LABORATORYComment:This is an appended report. These results have been appended to a previously preliminary verified report.Neutrophils Absolute (A)16.6(H)1.5 - 6.6 X10^9/L110/05/2024 6:43 AM [facility] LABORATORYComment:This is an appended report. These results have been appended to a previously preliminary verified report.Lymphocytes Absolute2.1 1.0 - 3.5 X10^9/L110/05/2024 6:43 AM [facility] Comment:This is an appended report. These results have been appended to a previously preliminary verified report.Monocytes Absolute1.0(H)0.0 - 0.9 X10^9/L110/05/2024 6:43 AM [facility] LABORATORYComment:This is an appended report. These results have been appended to a previously preliminary verified report.Eosinophils Absolute0.00.0 - 0.4 X10^9/L110/05/2024 6:43 AM [facility] LABORATORYComment:This is an appended report. These results have been appended to a previously preliminary verified report.Basophils Absolute0.00.0 - 0.2 X10^9/L110/05/2024 6:43 AM [facility] LABORATORYComment:This is an appended report. These results have been appended to a previously preliminary verified report.Differential TypeAUTOMATED IMOCCHWDZWUD62/09/2025 6:43 AM [facility] LABORATORYComment:This is an appended report. These results have been appended to a previously preliminary verified report.Specimen (Source)Anatomical Location / LateralityCollection Method / VolumeCollection TimeReceived Time BloodVenous blood / UnknownVenipuncture / Tclnbvc5608/05/2025 4:02 AM EST 08/05/2025 4:20 AM EST Narrative Authorizing ProviderResult TypeResult StatusKassidy Rejent MDLAB BLOOD ORDERABLESFinal ResultPerforming OrganizationAddressCity/State/ZIP CodePhone Number [facility] [address] [place] [address], [place] [phone] * (ABNORMAL) Comprehensive metabolic panel (08/05/2025 4:02 AM EST)Component ValueRef RangeTest MethodAnalysis TimePerformed AtPathologist SignatureSODIUM 053145 - 146 mmol/L110/05/2024 4:52 AM [facility] POTASSIUM3.53.5 - 5.0 mmol/L110/05/2024 4:52 AM [facility] DVWPIRQWPCCJSMKFWW201(H)98 - 109 mmol/L110/05/2024 4:52 AM [facility] LABORATORYCARBON EPWCMAK11(L)22 - 32 mmol/L110/05/2024 4:52 AM [facility] LABORATORYANION GAP75 - 15 mmol/L110/05/2024 4:52 AM [facility] LABORATORYBLOOD UREA PLQRHFDA437 - 27 mg/dL 08/05/2025 4:52 AM [facility] LABORATORYCREATININE0.690.40 - 1.00 mg/dL08/05/2025 4:52 AM [facility] LABORATORYComment: METHOD TRACEABLE TO IDCA KXIGVHHMGIGBOAF594(H)65 - 99 mg/dL08/05/2025 4:52 AM [facility] LABORATORYCALCIUM8.0(L)8.5 - 10.5 mg/dL08/05/2025 4:52 AM [facility] LABORATORYTOTAL PROTEIN5.2(L)6.0 - 8.0 g/dL08/05/2025 4:52 AM [facility] LABORATORYALBUMIN3.0(L)3.2 - 5.3 g/dL08/05/2025 4:52 AM [facility] LABORATORYALKALINE KICINDMDAVK5834 - 130 U/L110/05/2024 4:52 AM [facility] FAGFJYSIBELHM11<=41 U/L110/05/2024 4:52 AM [facility] LABORATORYALT5<=31 U/L110/05/2024 4:52 AM [facility] LABORATORYBILIRUBIN,TOTAL0.70.3 - 1.2 mg/dL08/05/2025 4:52 AM [facility] LABORATORYEGFR Non-Race Dependent>90>=60 ml/min/1.73sq.m 08/05/2025 4:52 AM [facility] LABORATORYComment: Reported eGFR is based on the CKD-EPI 2020 equation that does not use a race coefficient. Specimen (Source)Anatomical Location / LateralityCollection Method / Volume Collection TimeReceived TimeBloodVenous blood / UnknownVenipuncture / Unknown 08/05/2025 4:02 AM EST08/05/2025 4:20 AM EST Narrative Authorizing ProviderResult TypeResult StatusKassidy Rejent MDLAB BLOOD ORDERABLESFinal ResultPerforming OrganizationAddressCity/State/ZIP CodePhone Number [facility] [address] [place] [id number], * Transfuse RBC:2 Units (08/04/2025 9:09 PM EST) Narrative Authorizing ProviderResult TypeResult StatusKassidy Rejent MDBLOOD TRANSFUSION ORDERABLESFinal Result * Transfuse RBC:2 Units (08/04/2025 9:09 PM EST) Narrative Authorizing ProviderResult TypeResult StatusKassidy Rejent MDBLOOD TRANSFUSION ORDERABLESFinal Result * (ABNORMAL) CBC auto differential (08/04/2025 12:18 PM EST)ComponentValueRef RangeTest MethodAnalysis TimePerformed AtPathologist UtzttwkljDCM60.4(H)4 - 11 X10^9/L110/04/2024 2:03 PM [facility] LABORATORYRBC Count3.12 (L)3.8 - 5.2 X10^12/L110/04/2024 2:03 PM [facility] Hemoglobin9.1(L)11.7 - 15.5 g/dL08/04/2025 2:03 PM [facility] IRQZJCKAVTTplqwvalqx29.6(L)35 - 47 %08/04/2025 2:03 PM [facility] HYPTPFQWKUNVG3376 - 100 fL08/04/2025 2:03 PM [facility] DRPAXIALSSWII15.027 - 34 pg08/04/2025 2:03 PM [facility] AKFOPPDPWBAGDL66.832 - 36 g/dL08/04/2025 2:03 PM [facility] PETDBITCDNLUZ44.8(H)11.5 - 15 %08/04/2025 2:03 PM [facility] LABORATORYPlatelet Htcbj517859 - 450 X10^9/L110/04/2024 2:03 PM [facility] LABORATORYMPV8.37 - 12 fL08/04/2025 2:03 PM [facility] LABORATORYNeutrophils %88.9%08/04/2025 2:03 PM [facility] LABORATORYComment:This is an appended report. These results have been appended to a previously preliminary verified report.Lymphocytes % 8.7%08/04/2025 2:03 PM [facility] LABORATORYComment:This is an appended report. These results have been appended to a previously preliminary verified report.Monocytes %1.7%08/04/2025 2:03 PM [facility] LABORATORYComment:This is an appended report. These results have been appended to a previously preliminary verified report.Eosinophils % 0.4%08/04/2025 2:03 PM [facility] LABORATORYComment:This is an appended report. These results have been appended to a previously preliminary verified report.Basophils %0.3%08/04/2025 2:03 PM [facility] LABORATORYComment:This is an appended report. These results have been appended to a previously preliminary verified report.Neutrophils Absolute (A)12.8(H)1.5 - 6.6 X10^9/L110/04/2024 2:03 PM [facility] LABORATORYComment:This is an appended report. These results have been appended to a previously preliminary verified report.Lymphocytes Absolute1.2 1.0 - 3.5 X10^9/L110/04/2024 2:03 PM [facility] Comment:This is an appended report. These results have been appended to a previously preliminary verified report.Monocytes Absolute0.20.0 - 0.9 X10^9/L 08/04/2025 2:03 PM [facility] LABORATORYComment:This is an appended report. These results have been appended to a previously preliminary verified report.Eosinophils Absolute0.10.0 - 0.4 X10^9/L110/04/2024 2:03 PM EST [facility]ORYComment:This is an appended report. These results have been appended to a previously preliminary verified report. Basophils Absolute0.00.0 - 0.2 X10^9/L110/04/2024 2:03 PM [facility] LABORATORYComment:This is an appended report. These results have been appended to a previously preliminary verified report.Elliptocytes1+08/04/2025 2:03 PM [facility] LABORATORYComment:This is an appended report. These results have been appended to a previously preliminary verified report.Differential TypeAUTOMATED JJZEKNXSGKXB52/08/2025 2:03 PM [facility] LABORATORYComment:This is an appended report. These results have been appended to a previously preliminary verified report.Specimen (Source)Anatomical Location / LateralityCollection Method / VolumeCollection TimeReceived TimeBloodVenous blood / UnknownVenipuncture / Zykugty3008/04/2025 12:18 PM EST08/04/2025 12:27 PM EST Narrative Authorizing ProviderResult TypeResult StatusAlexandria Lasalla DOLAB BLOOD ORDERABLESFinal ResultPerforming OrganizationAddressCity/State/ZIP CodePhone Number [facility] [address] [place] [address], * Transfuse RBC:2 Units (08/04/2025 10:00 AM [...] AM EST)ComponentValueRef RangeTest Method Analysis TimePerformed AtPathologist TkbwqowydZRYR38/08/2025 8:26 AM ESTTTH BB - SSBMBFNVKIfieefsm21/08/2025 8:26 AM ESTTT BB - WELLSKYSpecimen (Source) Anatomical Location / LateralityCollection Method / VolumeCollection Time Received TimeBloodVenous blood / UnknownVenipuncture / Wkaojai8508/04/2025 7:41 AM EST08/04/2025 8:14 AM EST Narrative Authorizing ProviderResult TypeResult StatusAleia K Catherine MDBLOOD BANK TEST ORDERABLESFinal ResultPerforming OrganizationAddressCity/State/ZIP CodePhone Number [facility] BB - JANETKY [address] [place] [address], * Crossmatch RBC:Number of Units: 2 (08/04/2025 5:30 AM EST)ComponentValueRef RangeTest MethodAnalysis TimePerformed AtPathologist SignatureBlood component [id number] BANK - WELLSKYUnit [id number] BANK - [place]LLSKY Unit ABOOBLOOD BANK - WELLSKYUnit RHNEGBLOOD BANK - WELLSKYCrossmatch CompatibleBLOOD BANK - WELLSKYStatus of unitTRANSFUSEDBLOOD BANK - WELLSKY Expiration [id number] BANK - WELLSKYBB Type Nnzdbsm0237WLVKH BANK - WELLSKYBlood component [id number] BANK - WELLSKYUnit number [id number] BANK - WELLSKYUnit ABOOBLOOD BANK - WELLSKYUnit RHNEG BLOOD BANK - WELLSKYCrossmatchCompatibleBLOOD BANK - WELLSKYStatus of unit TRANSFUSEDBLOOD BANK - WELLSKYExpiration [id number] BANK - WELLSKY BB Type [id number] BANK - WELLSKYSpecimen (Source)Anatomical Location / LateralityCollection Method / VolumeCollection TimeReceived TimeBlood 08/04/2025 5:30 AM EST08/04/2025 5:47 AM EST Narrative Authorizing ProviderResult TypeResult StatusKassidy Rejent MDBLOOD BANK PRODUCT ORDERABLESEdited Result - FinalPerforming OrganizationAddressCity/State/ZIP Code Phone Number BLOOD BANK - [place]LL[place]Y * Fibrinogen (08/04/2025 5:30 AM EST)ComponentValueRef RangeTest MethodAnalysis TimePerformed AtPathologist PvnjizxqsDUFDXZKYFK938589 - 480 mg/dL08/04/2025 6:07 AM [facility] LABORATORYSpecimen (Source)Anatomical Location / LateralityCollection Method / VolumeCollection TimeReceived Time BloodVenous blood / UnknownVenipuncture / Rxrdsgd2708/04/2025 5:30 AM EST 08/04/2025 5:42 AM EST Narrative Authorizing ProviderResult TypeResult StatusKassidnolan Still [facility] BLOOD ORDERABLESFinal ResultPerforming OrganizationAddressCity/State/ZIP CodePhone Number [facility] [address] [place] [address], * (ABNORMAL) APTT (08/04/2025 5:30 AM EST)ComponentValueRef RangeTest Method Analysis TimePerformed AtPathologist IakfukrazEYFV46(L)26 - 37 sec08/04/2025 6:07 AM [facility] LABORATORYSpecimen (Source)Anatomical Location / LateralityCollection Method / VolumeCollection TimeReceived Time BloodVenous blood / UnknownVenipuncture / Qgchmwu1008/04/2025 5:30 AM EST 08/04/2025 5:42 AM EST Narrative Authorizing ProviderResult TypeResult StatusMicssivelisse Still [facility] BLOOD ORDERABLESFinal ResultPerforming OrganizationAddressCity/State/ZIP CodePhone Number [facility] [address] [place] [address], * Protime & INR (08/04/2025 5:30 AM EST)ComponentValueRef RangeTest Method Analysis TimePerformed AtPathologist XiidlrrpsUJQBUPG10.89.8 - 13.2 sec 08/04/2025 6:07 AM [facility] LABORATORYINR1.00.9 - 1.2 08/04/2025 6:07 AM [facility] LABORATORYSpecimen (Source) Anatomical Location / LateralityCollection Method / VolumeCollection Time Received TimeBloodVenous blood / UnknownVenipuncture / Xuorjto9208/04/2025 5:30 AM EST08/04/2025 5:42 AM EST Narrative Authorizing ProviderResult TypeResult StatusKassidy Rejent MDLAB BLOOD ORDERABLESFinal ResultPerforming OrganizationAddressCity/State/ZIP CodePhone Number [facility] [address] [place] [address], [place] [phone] * Type and screen (08/04/2025 5:30 AM EST)ComponentValueRef RangeTest Method Analysis TimePerformed AtPathologist ChhzljgrzZYKZ59/08/2025 8:20 AM ESTTTH BB - RVRBIFXMNQcoripil06/08/2025 8:20 AM ESTTTH BB - WELLSKYAntibody Screen Deigkrjc84/08/2025 8:20 AM ESTTTH BB - WELLSKYSpecimen (Source)Anatomical Location / LateralityCollection Method / VolumeCollection TimeReceived Time BloodVenous blood / UnknownVenipuncture / Etlhhpg9808/04/2025 5:30 AM EST 08/04/2025 5:46 AM EST Narrative Authorizing ProviderResult TypeResult StatusMicssivelisse Still MDBLOOD BANK TEST ORDERABLESEdited Result - FinalPerforming OrganizationAddressCity/State/ZIP Code Phone Number [facility] RAJI - JOEL [address] [place] [address], * (ABNORMAL) CBC auto differential (08/04/2025 5:30 AM EST)ComponentValueRef RangeTest MethodAnalysis TimePerformed AtPathologist QacoseuabNBI38.7(H)4 - 11 X10^9/L110/04/2024 7:43 AM [facility] LABORATORYRBC Count2.10 (L)3.8 - 5.2 X10^12/L110/04/2024 7:43 AM [facility] Hemoglobin5.8(LL)11.7 - 15.5 g/dL08/04/2025 7:43 AM [facility] LYZGMNNXULXoyrezmyuv80.0(L)35 - 47 %08/04/2025 7:43 AM [facility] XUKNPPTXTIJMB1055 - 100 fL08/04/2025 7:43 AM [facility] BNLUDBTAWDNON34.727 - 34 pg08/04/2025 7:43 AM [facility] BCJYCPCEEXXJZR66.532 - 36 g/dL08/04/2025 7:43 AM [facility] NSAUDQPUCJRQG23.3(H)11.5 - 15 %08/04/2025 7:43 AM [facility] LABORATORYPlatelet Kftpa374474 - 450 X10^9/L110/04/2024 7:43 AM [facility] LABORATORYMPV8.37 - 12 fL08/04/2025 7:43 AM [facility] LABORATORYNeutrophils %82%08/04/2025 7:43 AM [facility] LABORATORYComment:This is an appended report. These results have been appended to a previously preliminary verified report. Lymphocytes %16%08/04/2025 7:43 AM [facility] Comment:This is an appended report. These results have been appended to a previously preliminary verified report.Monocytes %2%08/04/2025 7:43 AM [facility]ORATORYComment:This is an appended report. These results have been appended to a previously preliminary verified report. Neutrophils Absolute (M)11.2(H)1.5 - 6.6 X10^9/L110/04/2024 7:43 AM [facility] LABORATORYComment:This is an appended report. These results have been appended to a previously preliminary verified report.Lymphocytes Absolute2.21.0 - 3.5 X10^9/L110/04/2024 7:43 AM [facility] LABORATORYComment:This is an appended report. These results have been appended to a previously preliminary verified report.Monocytes Absolute0.30.0 - 0.9 X10^9/L110/04/2024 7:43 AM [facility] LABORATORYComment:This is an appended report. These results have been appended to a previously preliminary verified report.Elliptocytes1+08/04/2025 7:43 AM [facility] LABORATORYComment:This is an appended report. These results have been appended to a previously preliminary verified report.Differential TypeMANUAL DOPLEADXNZJN54/08/2025 7:43 AM [facility] LABORATORYComment:This is an appended report. These results have been appended to a previously preliminary verified report.Specimen (Source)Anatomical Location / LateralityCollection Method / VolumeCollection TimeReceived Time BloodVenous blood / UnknownVenipuncture / Dpwaihz1908/04/2025 5:30 AM EST 08/04/2025 5:42 AM EST Narrative Authorizing ProviderResult TypeResult StatusKassidy Rejent MDLAB BLOOD ORDERABLESFinal ResultPerforming OrganizationAddressCity/State/ZIP CodePhone Number [facility] [address] [place] [address], * (ABNORMAL) Comprehensive metabolic panel (08/04/2025 5:30 AM EST)Component ValueRef RangeTest MethodAnalysis TimePerformed AtPathologist SignatureSODIUM 042988 - 146 mmol/L110/04/2024 6:15 AM [facility] POTASSIUM3.63.5 - 5.0 mmol/L110/04/2024 6:15 AM [facility] WWASDYKKPBXRANSQDD157(H)98 - 109 mmol/L110/04/2024 6:15 AM [facility] LABORATORYCARBON LDPNZBM39(L)22 - 32 mmol/L110/04/2024 6:15 AM [facility] LABORATORYANION GAP95 - 15 mmol/L110/04/2024 6:15 AM [facility] LABORATORYBLOOD UREA OPZVBMCI045 - 27 mg/dL 08/04/2025 6:15 AM [facility] LABORATORYCREATININE0.600.40 - 1.00 mg/dL08/04/2025 6:15 AM [facility] LABORATORYComment: METHOD TRACEABLE TO IDMS ULZLZNZJQEQJOWJ518(H)65 - 99 mg/dL08/04/2025 6:15 AM [facility] LABORATORYCALCIUM7.8(L)8.5 - 10.5 mg/dL08/04/2025 6:15 AM [facility] LABORATORYTOTAL PROTEIN5.4(L)6.0 - 8.0 g/dL08/04/2025 6:15 AM [facility] LABORATORYALBUMIN3.1(L)3.2 - 5.3 g/dL08/04/2025 6:15 AM [facility] LABORATORYALKALINE HGRKMXLTMHH8047 - 130 U/L110/04/2024 6:15 AM [facility] OGTMLZHQUWVIW04<=41 U/L110/04/2024 6:15 AM [facility] LABORATORYALT5<=31 U/L110/04/2024 6:15 AM [facility] LABORATORYBILIRUBIN,TOTAL0.30.3 - 1.2 mg/dL08/04/2025 6:15 AM [facility] LABORATORYEGFR Non-Race Dependent>90>=60 ml/min/1.73sq.m 08/04/2025 6:15 AM [facility] LABORATORYComment: Reported eGFR is based on the CKD-EPI 2020 equation that does not use a race coefficient. Specimen (Source)Anatomical Location / LateralityCollection Method / Volume Collection TimeReceived TimeBloodVenous blood / UnknownVenipuncture / Unknown 08/04/2025 5:30 AM EST08/04/2025 5:42 AM EST Narrative Authorizing ProviderResult TypeResult StatusKassidy Rejent MDLAB BLOOD ORDERABLESFinal ResultPerforming OrganizationAddressCity/State/ZIP CodePhone Number [facility] [address] [place] [address], documented in this encounter Visit Diagnoses Diagnosis Pelvic mass- Primary Abdominal or pelvic swelling, mass or lump, unspecified site Pelvic mass Abdominal or pelvic swelling, mass or lump, unspecified site Endometrial cancer determined by uterine biopsy [place] Limited mobility Nausea Nausea alone Vagina bleeding Other specified noninflammatory disorder of vagina Vaginal bleeding Other specified noninflammatory disorder of vagina Endometrial cancer determined by uterine biopsy ([facility] documented in this encounter Admitting Diagnoses Diagnosis [...] Wed08/05/25 at 1621 Given08/09/2025 9:44 AM EST1,000 uqMpnnz2108/06/2025 7:58 AM EST1,000 mg acetaminophen (TYLENOL EXTRA STRENGTH) tablet 1,000 mg 1,000 mg, oral, Once, On Wed08/07/25 at 1200, For 1 dose, Pre-op, 30 minutes prior to surgery Indications:Endometrial cancer determined by uterine biopsy [place] [place]Given 08/07/2025 12:19 PM EST1,000 mg amisulpride (BARHEMSYS) [...] use. Indications:Endometrial cancer determined by uterine biopsy ([facility]Given 08/07/2025 12:18 PM LQW004 mg dextrose (GLUTOSE) 40 % gel 15 [...] First dose on [place] 08/09/25 at 1030 Indications:KmwptxIjzlj40/13/2025 12:05 PM EST20 mg fentaNYL (SUBLIMAZE) injection 50 mcg 50 mcg, intravenous, Every 5 min PRN, Pain Scale 6-10, Starting on 08/04/25 at 1036, PACU (only), Up to a maximum dose of 150 mcg. Look-alike/sound-alike medication - verify indication for use. Given08/04/2025 11:00 AM EST50 ytmFpvtn96/08/2025 10:49 AM EST50 mcg fentaNYL (SUBLIMAZE) injection [...] use. Indications:Endometrial cancer determined by uterine biopsy ([facility])Given 08/07/2025 12:18 PM XHM859 mg glucagon HCL injection 1 mg 1 [...] 1 dose, VESICANT (RED) Given08/05/2025 12:14 PM RSZ688 mL lactated ringers bolus 500 mL, intravenous, at 968 mL/hr, Administer over 31 Minutes, Once, On 08/08/25 at 1130, For 1dose New Bag08/08/2025 12:08 PM AWV477 mL968 mL/hr lactated ringers infusion 50 mL/hr, [...] Administration: IV Push Given08/09/2025 4:27 PM EST8 xgYqktz5008/09/2025 4:53 AM EST8 xyQthqm4608/08/2025 7:41 PM EST8 mg ondansetron ODT (ZOFRAN [...] use. Immediate release. Given08/05/2025 4:45 AM EST10 gxThrdr4808/04/2025 3:36 PM EST10 mg oxyCODONE (ROXICODONE) immediate [...] use. Immediate release. Given08/09/2025 4:53 AM EST5 fdWgudy0808/08/2025 7:41 PM EST5 khWjubo3408/08/2025 2:49 PM EST5 mg potassium chloride (K-TAB,KLOR-CON) [...] over a minimum of 1 hour. New 08/06/2025 2:09 AM EST10 hYa947 mL/hrNew 08/06/2025 12:57 AM EST10 mEq 100 mL/hrNew 08/05/2025 11:45 PM EST10 zSg497 mL/hr prochlorperazine (COMPAZINE) injection 5 mg 5 mg, intravenous, Every 8 hours PRN, nausea, vomiting, Starting on Wed08/05/25 at 2106, When administered via IV Push, do not exceed 5 mg per minute Given08/07/2025 2:14 AM EST5 uqQjjxb6708/06/2025 7:59 AM EST5 arQewev6408/05/2025 9:15 PM EST5 mg senna (SENOKOT) tablet 8.6 mg 8.6 mg, oral, 2 times daily, First dose on Wed08/08/25 at 0900 Given08/09/2025 9:43 AM EST8.6 akLisql5008/08/2025 9:27 PM EST8.6 mgGiven 08/08/2025 9:31 AM EST8.6 mg simethicone (MYLICON) chewable tablet 80 mg 80 mg, oral, 4 times daily PRN, flatulence, Starting on Wed08/05/25 at 1939 Given08/08/2025 12:43 PM EST80 hrNxvic9308/05/2025 8:55 PM EST80 mg sodium chloride 0.9 [...] Wed08/04/25 at 0900 Given08/09/2025 9:47 AM EST3 cOOrzzv5408/08/2025 9:27 PM EST3 hEXfcef3208/08/2025 9:31 AM EST3 mL sodium chloride 0.9 [...] Wed08/04/25 at 1400 Given08/09/2025 9:47 AM EST1 ofbkFjbti75/12/2025 9:28 PM EST1 dropGiven 08/08/2025 9:31 AM EST1 dropdocumented in this encounter Active and Recently Administered Medications Times are shown in EST.Medication Order acetaminophen (TYLENOL EXTRA STRENGTH) tablet 1,000 mg [...] 1030 * 1205 (Given - Provider: Akiko Torres RN) gabapentin (NEURONTIN) tablet 600 mg (COMPLETED) 600 [...] RN) * 0943 (Given - Provider: Akiko Torres, JORDYN) sodium chloride 0.9 % flush 3 mL 3 mL, intravenous, Every 12 hours scheduled, First dose on 08/04/25 at 0900 * 0824 (Given - Provider: Amber Parker RN) * 1134 (NOV Hold - Provider: User Epic - Reason: Patient not available) * 1744 (MAR Unhold - Provider: User Epic) * 2014 (Given - Provider: Joana Ibarra, RN) * 0931 (Given - Provider: Amber Parker RN) * 212 (Given - Provider: Joana Ibarra RN) * 0947 (Given - Provider: Akiko Torres, JORDYN) timolol (TIMOPTIC) 0.5 % ophthalmic solution 1 drop 1 drop, both eyes, 2 times daily, First dose on Wed08/04/25 at 1400 * 0824 (Given - Provider: Amber Parker RN) * 1134 (NOV Hold - Provider: User Epic - Reason: Patient not available) * 1744 (NOV Unhold - Provider: User Epic) * 2012 (Given - Provider: Joana Ibarra, RN) * 0931 (Given - Provider: Amber [...] C, headaches, Starting on 08/05/25 at 1621 * 1134 (NOV Hold - [...] after initial treatment, repeat treatment. * 1134 (NOV Hold - Provider: User Epic - Reason: Patient not available) * 1744 ([facility] Unhold - Provider: User Epic) dextrose (GLUTOSE) 40 % gel 15 g 15 g, oral, As needed, low blood sugar, blood glucose less than 70 mg/dL, Starting on 08/04/25 at 1031, If patient conscious and taking PO. If blood glucose is not greater than 70 mg/dL after initial treatment, repeat treatment. * 1134 ([facility] Hold - Provider: User Epic - Reason: Patient not available) * 1744 ([facility] Unhold - Provider: User Epic) dextrose 5 [...] after initial treatment, repeat treatment. * 1134 ([facility] - Provider: User Epic - Reason: Patient not available) * 1744 ([facility] Unhold - Provider: User Epic) dextrose 5 [...] after initial treatment, repeat treatment. * 1134 ([facility] - Provider: User Epic - Reason: Patient not available) * 1744 ([facility] Unhold - Provider: User Epic) dextrose 50 [...] VESICANT (RED) Warning: HYPERTONIC solution. * 1134 ([facility] Hold - Provider: User Epic - Reason: Patient not available) * 1744 ([facility] Unhold - Provider: User Epic) dextrose 50 [...] VESICANT (RED) Warning: HYPERTONIC solution. * 1134 ([facility] Hold - Provider: User Epic - Reason: Patient not available) * 1744 ([facility] Unhold - Provider: User Epic) fentaNYL (SUBLIMAZE) [...] after initial treatment, repeat treatment. * 1134 ([facility] Hold - Provider: User Epic - Reason: Patient not available) * 1744 ([facility] Unhold - Provider: User Epic) glucagon HCL [...] after initial treatment, repeat treatment. * 1134 ([facility] Hold - Provider: User Epic - Reason: Patient not available) * 1744 ([facility] Unhold - Provider: User Epic) HYDROmorphone (DILAUDID) injection 0.5 mg 0.5 mg, intravenous, Every 4 hours PRN, severe pain - pain scale 7-10, breakthrough pain, Starting on 08/04/25 at 1033, If IV push, administer over over 2 to 3 minutes. Look-alike/sound-alike medication - verify indication for use. * 1134 ([facility] Hold - Provider: User Epic - Reason: Patient not available) * 1744 ([facility] Unhold - Provider: User Epic) HYDROmorphone (PF) (DILAUDID) injection 0.5 mg 0.5 mg, intravenous, Every 4 hours PRN, severe pain - pain scale 7-10, breakthrough, give chava first, Starting on 08/04/25 at 0618, If IV push, administer over over 2 to 3 minutes. Look-alike/sound-alike medication - verify indication for use. * 1134 ([facility] Hold - Provider: User Epic - Reason: Patient not available) * 1744 ([facility] Unhold - Provider: User Epic) lidocaine PF (XYLOCAINE) 10 mg/mL (1 %) injection 1 mg (CANCELED) 1 mg (0.1 mL), intradermal, As needed, times 1 per IV attempt for IV start pain control, Starting on Wed08/07/25 at 1238, Pre-op * 1340 (Given - Provider: EDIN Inman) lidocaine-EPINEPHrine (XYLOCAINE W/EPI) 1 %-[id number] injection (CANCELED) As needed, Starting on Wed08/07/25 at 1611, Intra-op * 1611 (Given - Provider: Dennis Monson MD) ondansetron (PF) (ZOFRAN) injection 8 mg 8 mg, intravenous, Every 8 hours PRN, nausea, vomiting, Starting on Wed08/06/25 at 1145, Intravenous administration preferred to be given over 2-5 minutes., Intravenous Specific Administration: IV Push * 0837 (Given - Provider: Amber Parker RN) * 1134 ([facility] Hold - Provider: User Epic - Reason: Patient not available) * 1744 ([facility] Unhold - Provider: User Epic) * 1941 [...] - Provider: Amber Parker RN) * 1134 ([facility] Hold - Provider: User Epic - Reason: Patient not available) * 1744 ([facility] Unhold - Provider: User Epic) * 1755 [...] - Provider: Amber Parker RN) * 1134 ([facility] Hold - Provider: User Epic - Reason: Patient not available) * 1744 ([facility] Unhold - Provider: User Epic) * 1755 (Given - Provider: Amber Parker, RN) * 0431 (Given - Provider: Joana Ibarra, RN) * 1449 (Given - Provider: Amber Parker, RN) * 1941 (Given - Provider: Joana [...] Do not crush or chew. * 1134 ([facility] Hold - Provider: User Epic - Reason: Patient not available) * 1744 ([facility] Unhold - Provider: User Epic) potassium chloride [...] policy and monitor potassium levels * 1134 ([facility] Hold - Provider: User Epic - Reason: Patient not available) * 1744 ([facility] Unhold - Provider: User Epic) potassium chloride [...] a minimum of 1 hour. * 1134 ([facility] Hold - Provider: User Epic - Reason: Patient not available) * 1744 ([facility] Unhold - Provider: User Epic) prochlorperazine (COMPAZINE) injection 5 mg 5 mg, intravenous, Every 8 hours PRN, nausea, vomiting, Starting on 08/05/25 at 2106, When administered via IV Push, do not exceed 5 mg per minute * 0214 (Given - Provider: Akiko Weller RN) * 1134 ([facility] Hold - Provider: User Epic - Reason: Patient not available) * 1744 ([facility] Unhold - Provider: User Epic) simethicone (MYLICON) chewable tablet 80 mg 80 mg, oral, 4 times daily PRN, flatulence, Starting on 08/05/25 at 1939 * 1134 ([facility] Hold - Provider: User Epic - Reason: Patient not available) * 1744 ([facility] Unhold - Provider: User Epic) * 1243 (Given - Provider: Amber Parker, JORDYN) sodium chloride 0.9 % flush 10 mL 10 mL, intravenous, As needed, line care, Starting on 08/05/25 at 1158 * 1134 ([facility] Hold - Provider: User Epic - Reason: Patient not available) * 1744 ([facility] Unhold - Provider: User Epic) sodium chloride 0.9 % flush 3 mL 3 mL, intravenous, As needed, line care, before and after each intermittent use, Starting on 08/04/25 at 0336 * 1134 ([facility] Hold - Provider: User Epic - Reason: Patient not available) * 1744 ([facility] Unhold - Provider: User Epic) sodium chloride 0.9 % flush bag 25 mL, intravenous, at 100 mL/hr, Administer over 15 Minutes, As needed, line care, line care afterIVPB administration, Starting on 08/04/25 at 0336 * 1134 ([facility] Hold - Provider: User Epic - Reason: Patient not available) * 1744 ([facility] Unhold - Provider: User Epic) sodium chloride 0.9 % flush bag 25 mL, intravenous, at 100 mL/hr, Administer over 15 Minutes, As needed, line care, line care afterIVPB administration, Starting on 08/04/25 at 1031 * 1134 ([facility] Hold - Provider: User Epic - Reason: Patient not available) * 1744 ([facility] Unhold - Provider: User Epic) Order Group [...] MemberRelationshipSpecialtyStart DateEnd Date Ann Marie Sidhu MD [address] [place] [address] PCP - GeneralFamily [id number] as of this encounter
--- OUTSIDE RECORDS SUMMARY | 2025-08-04 08:30 | XMS_ITS | Encounter Summary ---
Author Organization [facility] tem Address [id number] [address] [place] [address] Care Team Providers Care Pediatric Dietician Name Role Phone Unavailable Primary Care Provider Unavailabl e Reason for Visit * Auth/Cert (Routine)SpecialtyDiagnoses / ProceduresReferred By ContactReferred To Contact Diagnoses Pelvic mass Vagina bleeding Vaginal bleeding pelvic mass/vaginal bleeding Dustin Santiago MD [address] [place] [address], [address] [place] [address] Phone: tel: fax: Referral IDStatusReasonStart DateExpiration DateVisits RequestedVisits [id number] Encounter Details DateTypeDepartmentCare Team (Latest Contact Info)Aebjdokhkzg42/08/2025 8:30 AM EST - 08/04/2025 9:40 AM ESTSurgery [facility] [address] [place] [address] [phone] Dustin Santiago MD [address] [place] [address], [address] [place] [address] DILATION CURETTAGE [57168 (CPT??)] Surgery Details Date/TimeStatusLocationORServicePatient ClassCase ClassCase TypeTrauma Case? 08/04/2025 8:30 AMPostedTOLEDO SURGERYOR 02ObstetricsInpatientClass II Emergency Panel 1 ProcedureLRBAnesOp RegionWound ClassCommentsDILATION CURETTAGEN/AGeneral VaginaClean Contaminated SurgeonSurgeon RoleServicePanelCatherine, Dustin Anderson, RSUzriqaqBkgurygngt8vadnbxgvht in this encounter Social History Tobacco UseTypesPacks/DayYears UsedDateSmoking Tobacco: NeverSmokeless Tobacco: Never Tobacco Cessation:Counseling Given: Not Answered Alcohol UseStandard Drinks/WeekCommentsNever0 (1 standard drink = 0.6 oz pure alcohol)PHQ-2AnswerDate RecordedTotal Hdsmz52810/04/2024UDIT-CAnswerDate Recorded Q1: How often do you have [...] InformationValueDate RecordedSex Assigned at BirthNot on fileLegal XhdTqvwes11/08/2025 12:05 AM ESTGender IdentityNot on fileSexual OrientationNot on filedocumented as of this encounter Last Filed Vital Signs Vital SignReadingTime TakenCommentsBlood Yswbvogg891/6011 9:00 AM EST Ulrwy2878 9:00 AM MQEZyivgyuvpwv57.8 ??C (98.2 ??F)08/04/2025 9:00 AM ESTRespiratory Vzpe1523 9:00 AM ESTOxygen Hkettxnnap436%08/04/2025 9:00 AM ESTInhaled Oxygen Concentration--Hbqikf12.2 kg (165 lb 12.6 oz)08/04/2025 8:39 AM LHRRlitxw691.5 cm (5' 2.01 )08/04/2025 8:39 AM ESTBody Mass Index30.23 08/04/2025 8:39 AM ESTdocumented in this encounter Discharge Summaries * Jalyn [...] history on file. who initially presented to [facility] for vaginal bleeding. A pelvic ultrasound and CT abdomen were performed that showed a uterine mass and enlarged lymph nodes. The patient was transferred to [facility]. Upon arrival speculumexam showed 1 large clot [...] Your Medications These medications were sent to [facility] [address] [facility] [address] acetaminophen 500 mg tablet famotidine 20 mg tablet ondansetron ODT 4 mg disintegrating tablet oxyCODONE 5 mg immediate release tablet senna 8.6 mg tablet Special Instructions/Information to Patient and Family: Pelvic rest for 6 weeks, i.e. nothing in the vagina - no tampons, douches, or intercourse. Call MD right away if she experiences any shortness [...] Postop visit on 08/21 Jalyn Camp MD BLIND AIDE Resident, PGY-3 Cosigned by Sherry Cuellar MD [...] changes made as necessary. Jalyn Camp MD Farm Operations Manager Resident PGY-2 08/09/25 6:44 AM Cosigned [...] last 7 days Lab Units 08/07/25 0540 08/06/2562208/05/25 0402 WBC X10^9/L 18.4* 21.4* 19.8* HEMOGLOBIN [...] changes made as necessary. Jalyn Camp MD Farm Operations Manager Resident PGY-2 08/08/25 6:38 AM Cosigned [...] Camp MD - 08/07/2025 6:39 AM EST [facility] Daily Progress Note Admission Date: 08/04/2025 [...] -Hgb 7.2 (OSH)>5.8>2u pRBC>9.1>8>8.3>8.3 Jalyn Camp MD Farm Operations Manager Resident, PGY-3 If questions or concerns, please contact via [facility] pager at [phone]. Cosigned by Dennis Monson MD at 08/07/2025 [...] Ramirez MD - 08/06/2025 7:09 AM EST [facility] Daily Progress Note Admission Date: 08/04/2025 [...] and hold food down. Nusrat Ramirez MD Farm Operations Manager Resident, PGY-1 If questions or concerns, please contact via [facility] pager at [phone]. Cosigned by Sherry Cuellar MD at 08/06/2025 [...] Still MD - 08/05/2025 6:24 AM EST [facility] Admission Date: 08/04/2025 [...] home today with close follow up with Accounts Adjustable Clerk Onc for pathology review and treatment planning. Annita Still MD Farm Operations Manager Resident, PGY-2 If questions or concerns, please contact via [facility] pager at [phone]. Cosigned by Dustin Santiago MD at 08/05/2025 [...] 08/04/2025 Performed by Dustin Santiago MD at [facility] Allergies Allergen Reactions Latex Hives and Facial [...] 15 g, 15 g, oral, PRN, Sarah Strange, [Transfer Hold] dextrose 5 % (D5W) infusion, 100 mL/hr, intravenous, Continuous PRN, Annita Still MD [Transfer Hold] dextrose 5 % (D5W) infusion, 100 mL/hr, intravenous, Continuous PRN, Sarah Strange, DO dextrose 5 % (D5W) infusion, 100 mL/hr, intravenous, Continuous PRN, Mahendra Rico MD [Transfer Hold] dextrose 50 % in water (D50W) 50% solution 25 mL, 25 mL, intravenous, PRN, Annita Still MD [Transfer Hold] dextrose 50 % in water (D50W) 50% solution 25 mL, 25 mL, intravenous, PRN, Sarah Snydera, DO dextrose 50 % in water (D50W) 50% solution 25 mL, 25 mL, intravenous, PRN, Mahendra Rico MD [Transfer Hold] glucagon HCL injection 1 mg, 1 mg, intramuscular, PRN, Annita Still MD [Transfer Hold] glucagon HCL injection 1 mg, 1 mg, intramuscular, PRN, Sarah nSydera, DO glucagon HCL injection 1 mg, 1 [...] PRN, Brittnee Sam MD, 80 mg at 08/05/25 2055 [Transfer Hold] sodium chloride 0.9 % flush 10 mL, 10 mL, intravenous, PRN, Dustin Santiago MD, 10 mLat 08/05/25 1214 [Transfer Hold] sodium chloride 0.9 % flush 3 mL, 3 mL, intravenous, PRN, Annita Still MD [Transfer Hold] sodium chloride 0.9 % flush 3 mL, 3 mL, intravenous, Q12H ION, Annita Brooksent, MD, 3 mL at 08/07/25 0824 sodium chloride 0.9 % flush 3 mL, 3 mL, intravenous, Q12H Mahendra LEMON MD sodium chloride 0.9 % flush 3 [...] an obstructing tumor. Manuel Busby MD, FACS [facility] General Surgeons Minimally Invasive Robotic Surgery Board Certified in General Surgery Board Certified in Critical Care Office: [phone] Email: [email or web address] Thank you for allowing me to participate in the care of your patient. Please feel free to contact me with any questions or concerns. [phone] * Dennis Monson MD - 08/07/2025 11:26 AM EST HISTORY AND PHYSICAL INTERVAL NOTE: Eunice Anderson [id number] H&P reviewed. The patient was examined and there are no changes to the H&P. Dennis Monson MD Source Note - Jalyn Camp MD - 08/07/2025 6:39 AM EST [facility] Daily Progress Note Admission Date: 08/04/2025 [...] -Hgb 7.2 (OSH)>5.8>2u pRBC>9.1>8>8.3>8.3 Jalyn Camp MD Farm Operations Manager Resident, PGY-3 If questions or concerns, please contact via [facility] pager at [phone]. Cosigned by Dennis Monson MD at 08/07/2025 11:22 AM EST * Annita Still MD - 08/04/2025 3:38 AM EST Gynecology Oncology Consultation Date of Admission: 08/04/2025 3:32 AM Chief Complaint : Uterine mass, vaginal bleeding History of Present Illness : Eunice Anderson is a 70 y.o. female with PMH of glaucoma who presents as a transport from [facility] for vaginal bleeding. Patient reports vaginal spotting that began 2 days ago. She reports feeling weak, lightheaded, and nauseous 1 day ago while at work and went to the bathroom where she filled the toilet with blood. Patient was brought to [facility] where [facility] that revealed a likely uterine mass and possible enlarged lymph node. Hgb at the time was 9mg/dl and vaginal bleeding was stable. Patient was referred to OBGYN outpatient for close follow up. She reports worsening vaginal bleeding overnight along with weakness, lightheadedness, nausea. She also reports intermittent painful cramps and passage of clots. She was taken to [facility] for evaluation. Per report, the patient was vitally stable, pale, and hgb was 7.2mg/dl. On exam, 1 large clot was cleared from the vagina and another remained at the cervical os with a slow trickle of active bleeding. Patient was given IVF and decision was made to transport patient to [facility] for Gynecology Oncology evaluation for vaginal bleeding in the setting of a pelvic mass. Patient reports she has not seen a career services director in 5 years. Denies prior gynecologic surgery. [...] % gel 15 g, 15 g, oral, PRNAnnita MD dextrose 5 % (D5W) infusion, 100 [...] 0.9 % infusion, 20 mL/hr, intravenous, Continuous PRAnnita Prieto MD Social History: Social History Socioeconomic History [...] Discussed with Dr. Santiago Annita Still MD Farm Operations Manager Resident, PGY-2 If questions or concerns, please contact via [facility] pager at [phone]. Cosigned by Dustin Santiago MD at 08/04/2025 [...] Description: INTERVENTIONS: 1. Encourage patient or legal quality assurance representative to report early pain and ask [...] per policy 9. Teach patient or legal quality assurance representative interventions for comforting 08/09/20251725 by JORDYN Wharton Outcome: Adequate for [...] at the bedside 7. Instruct patient/ patient quality assurance representative about use of safety devices 8. Include patient/ patient quality assurance representative in decisions related to safety 08/09/20251725 by JORDYN Wharton Outcome: Adequate for [...] hygiene technique. 7. Identify and instruct patient/patient quality assurance representative in use of appropriate isolation precautionsfor identified infection/symptoms. 8. Provide and discuss with patient/patient quality assurance representative on educational MDRO sheet. 9. Encourage and monitor nutritional status daily and consult steam fitter supervisor maintenance if indicated. 10. Implement neutropenic guidelines as needed. 08/09/20251725 by JORDYN Wharton Outcome: Adequate for Discharge 08/09/20251228 by JORDYN Wharton Outcome: Progressing Note: Evaluation of progress towards goal: Patient afebrile, vital signs stable at this time. Continuing to monitor. Problem: Knowledge Deficit Goal: Patient/patient quality assurance representative demonstrates understanding of disease process, treatment [...] Score of =/> 25 or indicated by [facility] Re[facility] Assessment Goal: Patient should be free from fall Description: Interventions: 1. [place] to environment 2. Hourly rounds addressing the [...] non-skid footwear 11. Teach patient and patient quality assurance representative to maintain environment for safety and [...] (cane, walker) within reach 19. Request patient quality assurance representative bring adaptive equipment/mobility aids from home or obtain and provide as needed 20. Consult pharmacy regarding effects of med's affecting mobility, cognition, and alternatives 21. Obtain physician order for PT if risk factors associated with mobility are present 22. Obtain physician order for OT as appropriate 23. Utilize diversional activities 24. Educate patient and patient quality assurance representative how to maintain a safe environment during visitationtimes (notify nurse prior to leaving bedside) 25. Consider appropriateness of medical or non-medical instrument cable fabricator 26. Set up voiding schedule as appropriate [...] supplement as ordered 13. Collaborate with clinical steam fitter supervisor maintenance 14. Include patient/ patient's quality assurance representative in decisions related to nutrition Outcome: [...] of Care - Eloisa Doshi [facility] - 08/09/2025 2:16 PM EST [...] ew also shows new medication use. * PT/OT/DEMONSTRATOR KNITTING - Neo Hoskins PTA - 08/09/2025 2:07 [...] Description: INTERVENTIONS: 1. Encourage patient or legal quality assurance representative to report early pain and ask [...] per policy 9. Teach patient or legal quality assurance representative interventions for comforting Outcome: Progressing Note: [...] at the bedside 7. Instruct patient/ patient quality assurance representative about use of safety devices 8. Include patient/ patient quality assurance representative in decisions related to safety Outcome: [...] hygiene technique. 7. Identify and instruct patient/patient quality assurance representative in use of appropriate isolation precautionsfor identified infection/symptoms. 8. Provide and discuss with patient/patient quality assurance representative on educational MDRO sheet. 9. Encourage and monitor nutritional status daily and consult steam fitter supervisor maintenance if indicated. 10. Implement neutropenic guidelines as needed. Outcome: Progressing Note: Evaluation of progress towards goal: Patient afebrile, vital signs stable at this time. Continuing to monitor. Problem: Knowledge Deficit Goal: Patient/patient quality assurance representative demonstrates understanding of disease process, treatment [...] Score of =/> 25 or indicated by [facility] Rehab Assessment Goal: Patient should be free from fall Description: Interventions: 1. [place] to environment 2. Hourly rounds addressing the [...] non-skid footwear 11. Teach patient and patient quality assurance representative to maintain environment for safety and [...] (cane, walker) within reach 19. Request patient quality assurance representative bring adaptive equipment/mobility aids from home or obtain and provide as needed 20. Consult pharmacy regarding effects of med's affecting mobility, cognition, and alternatives 21. Obtain physician order for PT if risk factors associated with mobility are present 22. Obtain physician order for OT as appropriate 23. Utilize diversional activities 24. Educate patient and patient quality assurance representative how to maintain a safe environment during visitationtimes (notify nurse prior to leaving bedside) 25. Consider appropriateness of medical or non-medical instrument cable fabricator 26. Set up voiding schedule as appropriate [...] Description: INTERVENTIONS: 1. Encourage patient or legal quality assurance representative to report early pain and ask [...] per policy 9. Teach patient or legal quality assurance representative interventions for comforting Outcome: Progressing Note: [...] at the bedside 7. Instruct patient/ patient quality assurance representative about use of safety devices 8. Include patient/ patient quality assurance representative in decisions related to safety Outcome: [...] hygiene technique. 7. Identify and instruct patient/patient quality assurance representative in use of appropriate isolation precautionsfor identified infection/symptoms. 8. Provide and discuss with patient/patient quality assurance representative on educational MDRO sheet. 9. Encourage and monitor nutritional status daily and consult steam fitter supervisor maintenance if indicated. 10. Implement neutropenic guidelines as needed. Outcome: Progressing Note: Evaluation of progress towards goal: No signs or symptoms of infection Problem: Knowledge Deficit Goal: Patient/patient quality assurance representative demonstrates understanding of disease process, treatment [...] be free from fall Description: Interventions: 1. [place] to environment 2. Hourly rounds addressing the [...] non-skid footwear 11. Teach patient and patient quality assurance representative to maintain environment for safety and [...] (cane, walker) within reach 19. Request patient quality assurance representative bring adaptive equipment/mobility aids from home or obtain and provide as needed 20. Consult pharmacy regarding effects of med's affecting mobility, cognition, and alternatives 21. Obtain physician order for PT if risk factors associated with mobility are present 22. Obtain physician order for OT as appropriate 23. Utilize diversional activities 24. Educate patient and patient quality assurance representative how to maintain a safe environment during visitationtimes (notify nurse prior to leaving bedside) 25. Consider appropriateness of medical or non-medical instrument cable fabricator 26. Set up voiding schedule as appropriate [...] supplement as ordered 13. Collaborate with clinical steam fitter supervisor maintenance 14. Include patient/ patient's quality assurance representative in decisions related to nutrition Outcome: [...] YESENIA SHAIKH RN 08/08/25 10:07 AM * PT/OT/DEMONSTRATOR KNITTING - Toya Ortiz OT/L - 08/08/2025 9:33 [...] 08/07/2025 Performed by Dennis Monson MD at [facility] DILATION CURETTAGE N/A 08/04/2025 Performed by Dustin Santiago MD at [facility] FLEXIBLE SIGMOIDOSCOPY N/A 08/07/2025 Performed by Manuel Busby MD at [facility] No chief complaint on file. 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 Principal Problem: Pelvic mass Active Problems: Vagina bleeding Vaginal bleeding * PT/OT/DEMONSTRATOR KNITTING - Ginny Mcghee, PT - 08/08/2025 9:31 [...] 08/07/2025 Performed by Dennis Monson MD at [facility] DILATION CURETTAGE N/A 08/04/2025 Performed by Dustin Santiago MD at [facility] FLEXIBLE SIGMOIDOSCOPY N/A 08/07/2025 Performed by Manuel Busby MD at [facility] No chief complaint on file. 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) Hearing / Speech / Vision Hearing: Within [...] Goal: Patient will perform gait with Modified Spink Dates: Start: 08/08/25 Expected End: 09/07/25 Description: Pt to amb 150' with RW and OK Disciplines: PT Problem: Stairs/Curb Dates: Start: 08/08/25 Disciplines: PT Goal: Patient will perform stairs/curb with Modified Spink Dates: Start: 08/08/25 Expected End: 09/07/25 Description: [...] Goal: Patient will perform transfers with Modified Spink Dates: Start: 08/08/25 Expected End: 09/07/25 Description: Sit<>stand with OK and use of RW for support Disciplines: [...] Description: INTERVENTIONS: 1. Encourage patient or legal quality assurance representative to report early pain and ask [...] per policy 9. Teach patient or legal quality assurance representative interventions for comforting Outcome: Progressing Note: [...] at the bedside 7. Instruct patient/ patient quality assurance representative about use of safety devices 8. Include patient/ patient quality assurance representative in decisions related to safety Outcome: [...] hygiene technique. 7. Identify and instruct patient/patient quality assurance representative in use of appropriate isolation precautionsfor identified infection/symptoms. 8. Provide and discuss with patient/patient quality assurance representative on educational MDRO sheet. 9. Encourage and monitor nutritional status daily and consult steam fitter supervisor maintenance if indicated. 10. Implement neutropenic guidelines as needed. Outcome: Progressing Note: Evaluation of progress towards goal: Pts VSS and labs WNL, no S/S of infection, all insertionsites clean dry and intact, pt and staff utilize proper handwashing technique. Problem: Knowledge Deficit Goal: Patient/patient quality assurance representative demonstrates understanding of disease process, treatment [...] goal: Pt discharge plan started on admission, healthcare account manager involved, discharges needs assessed. Problem: Moderate - High Risk Fall Score Description: Torres Fall Score of =/> 25 or indicated by [facility] Rehab Assessment Goal: Patient should be free from fall Description: Interventions: 1. [place] to environment 2. Hourly rounds addressing the [...] non-skid footwear 11. Teach patient and patient quality assurance representative to maintain environment for safety and [...] (cane, walker) within reach 19. Request patient quality assurance representative bring adaptive equipment/mobility aids from home or obtain and provide as needed 20. Consult pharmacy regarding effects of med's affecting mobility, cognition, and alternatives 21. Obtain physician order for PT if risk factors associated with mobility are present 22. Obtain physician order for OT as appropriate 23. Utilize diversional activities 24. Educate patient and patient quality assurance representative how to maintain a safe environment during visitationtimes (notify nurse prior to leaving bedside) 25. Consider appropriateness of medical or non-medical instrument cable fabricator 26. Set up voiding schedule as appropriate [...] supplement as ordered 13. Collaborate with clinical steam fitter supervisor maintenance 14. Include patient/ patient's quality assurance representative in decisions related to nutrition Outcome: [...] Description: INTERVENTIONS: 1. Encourage patient or legal quality assurance representative to report early pain and ask [...] per policy 9. Teach patient or legal quality assurance representative interventions for comforting Outcome: Progressing Note: [...] at the bedside 7. Instruct patient/ patient quality assurance representative about use of safety devices 8. Include patient/ patient quality assurance representative in decisions related to safety Outcome: [...] hygiene technique. 7. Identify and instruct patient/patient quality assurance representative in use of appropriate isolation precautionsfor identified infection/symptoms. 8. Provide and discuss with patient/patient quality assurance representative on educational MDRO sheet. 9. Encourage and monitor nutritional status daily and consult steam fitter supervisor maintenance if indicated. 10. Implement neutropenic guidelines as needed. Outcome: Progressing Note: Evaluation of progress towards goal: No signs or symptoms of infection Problem: Knowledge Deficit Goal: Patient/patient quality assurance representative demonstrates understanding of disease process, treatment [...] Score of =/> 25 or indicated by [facility] Rehab Assessment Goal: Patient should be free from fall Description: Interventions: 1. [place] to environment 2. Hourly rounds addressing the [...] non-skid footwear 11. Teach patient and patient quality assurance representative to maintain environment for safety and [...] (cane, walker) within reach 19. Request patient quality assurance representative bring adaptive equipment/mobility aids from home or obtain and provide as needed 20. Consult pharmacy regarding effects of med's affecting mobility, cognition, and alternatives 21. Obtain physician order for PT if risk factors associated with mobility are present 22. Obtain physician order for OT as appropriate 23. Utilize diversional activities 24. Educate patient and patient quality assurance representative how to maintain a safe environment during visitationtimes (notify nurse prior to leaving bedside) 25. Consider appropriateness of medical or non-medical instrument cable fabricator 26. Set up voiding schedule as appropriate [...] supplement as ordered 13. Collaborate with clinical steam fitter supervisor maintenance 14. Include patient/ patient's quality assurance representative in decisions related to nutrition Outcome: [...] Specimens/Drains/Implants: none EBL: minimal Intraoperative procedure: Eunice Lillie Anderson was already under anesthesia. A digital [...] was internally. This concluded the procedure. Eunice Lillie Anderson handled the procedure very well. Recommendations: Bowel regimen. * Op Note - Dennis Monson MD - 08/07/2025 1:30 PM EST Preop diagnosis: Endometrial cancer Postop diagnosis: Same Procedure performed: Robotically assisted laparoscopic hysterectomy, bilateral salpingo-oophorectomy, left ureterolysis, radical intraperitoneal tumor debulking with peritoneal stripping in the pelvis, flexible sigmoidoscopy Surgeon: Kehinde Monson Jboss Architect: Zoë,PGY-3 present for all portions of the case [...] condition the family was updated postoperatively. * PT/OT/DEMONSTRATOR KNITTING - Vale Bhatt OTR/L - 08/07/2025 11:46 AM EST Occupational Therapy OT Type of Visit: Medical deferral (will continue to follow) Reason For Medical Deferral: Off unit Off Unit: Surgery * PT/OT/DEMONSTRATOR KNITTING - Ginny Mcghee, PT - 08/07/2025 11:42 [...] Description: INTERVENTIONS: 1. Encourage patient or legal quality assurance representative to report early pain and ask [...] per policy 9. Teach patient or legal quality assurance representative interventions for comforting Outcome: Progressing Note: [...] at the bedside 7. Instruct patient/ patient quality assurance representative about use of safety devices 8. Include patient/ patient quality assurance representative in decisions related to safety Outcome: [...] hygiene technique. 7. Identify and instruct patient/patient quality assurance representative in use of appropriate isolation precautionsfor identified infection/symptoms. 8. Provide and discuss with patient/patient quality assurance representative on educational MDRO sheet. 9. Encourage and monitor nutritional status daily and consult steam fitter supervisor maintenance if indicated. 10. Implement neutropenic guidelines as needed. Outcome: Progressing Note: Evaluation of progress towards goal: Pts VSS and labs WNL, no S/S of infection, all insertionsites clean dry and intact, pt and staff utilize proper handwashing technique. Problem: Knowledge Deficit Goal: Patient/patient quality assurance representative demonstrates understanding of disease process, treatment [...] goal: Pt discharge plan started on admission, healthcare account manager involved, discharges needs assessed. Problem: Moderate - High Risk Fall Score Description: Torres Fall Score of =/> 25 or indicated by [facility] Re[facility] Assessment Goal: Patient should be free from fall Description: Interventions: 1. [place] to environment 2. Hourly rounds addressing the [...] non-skid footwear 11. Teach patient and patient quality assurance representative to maintain environment for safety and [...] (cane, walker) within reach 19. Request patient quality assurance representative bring adaptive equipment/mobility aids from home or obtain and provide as needed 20. Consult pharmacy regarding effects of med's affecting mobility, cognition, and alternatives 21. Obtain physician order for PT if risk factors associated with mobility are present 22. Obtain physician order for OT as appropriate 23. Utilize diversional activities 24. Educate patient and patient quality assurance representative how to maintain a safe environment during visitationtimes (notify nurse prior to leaving bedside) 25. Consider appropriateness of medical or non-medical instrument cable fabricator 26. Set up voiding schedule as appropriate [...] supplement as ordered 13. Collaborate with clinical steam fitter supervisor maintenance 14. Include patient/ patient's quality assurance representative in decisions related to nutrition Outcome: [...] Description: INTERVENTIONS: 1. Encourage patient or legal quality assurance representative to report early pain and ask [...] per policy 9. Teach patient or legal quality assurance representative interventions for comforting Outcome: Progressing Note: [...] at the bedside 7. Instruct patient/ patient quality assurance representative about use of safety devices 8. Include patient/ patient quality assurance representative in decisions related to safety Outcome: [...] hygiene technique. 7. Identify and instruct patient/patient quality assurance representative in use of appropriate isolation precautionsfor identified infection/symptoms. 8. Provide and discuss with patient/patient quality assurance representative on educational MDRO sheet. 9. Encourage and monitor nutritional status daily and consult steam fitter supervisor maintenance if indicated. 10. Implement neutropenic guidelines as needed. Outcome: Progressing Note: Evaluation of progress towards goal: Pt free from signs of infection at this time, will continue to monitor for signs and symptoms of infection during shift. Pt afebrile. Problem: Knowledge Deficit Goal: Patient/patient quality assurance representative demonstrates understanding of disease process, treatment [...] be free from fall Description: Interventions: 1. [place] to environment 2. Hourly rounds addressing the [...] non-skid footwear 11. Teach patient and patient quality assurance representative to maintain environment for safety and [...] (cane, walker) within reach 19. Request patient quality assurance representative bring adaptive equipment/mobility aids from home or obtain and provide as needed 20. Consult pharmacy regarding effects of med's affecting mobility, cognition, and alternatives 21. Obtain physician order for PT if risk factors associated with mobility are present 22. Obtain physician order for OT as appropriate 23. Utilize diversional activities 24. Educate patient and patient quality assurance representative how to maintain a safe environment during visitationtimes (notify nurse prior to leaving bedside) 25. Consider appropriateness of medical or non-medical instrument cable fabricator 26. Set up voiding schedule as appropriate [...] supplement as ordered 13. Collaborate with clinical steam fitter supervisor maintenance 14. Include patient/ patient's quality assurance representative in decisions related to nutrition Outcome: [...] Description: INTERVENTIONS: 1. Encourage patient or legal quality assurance representative to report early pain and ask [...] per policy 9. Teach patient or legal quality assurance representative interventions for comforting Outcome: Progressing Note: [...] at the bedside 7. Instruct patient/ patient quality assurance representative about use of safety devices 8. Include patient/ patient quality assurance representative in decisions related to safety Outcome: [...] hygiene technique. 7. Identify and instruct patient/patient quality assurance representative in use of appropriate isolation precautionsfor identified infection/symptoms. 8. Provide and discuss with patient/patient quality assurance representative on educational MDRO sheet. 9. Encourage and monitor nutritional status daily and consult steam fitter supervisor maintenance if indicated. 10. Implement neutropenic guidelines as needed. Outcome: Progressing Note: Evaluation of progress towards goal: Hand hygiene, monitor labs and vitals Problem: Knowledge Deficit Goal: Patient/patient quality assurance representative demonstrates understanding of disease process, treatment [...] Score of =/> 25 or indicated by [facility] Rehab Assessment Goal: Patient should be free from fall Description: Interventions: 1. [place] to environment 2. Hourly rounds addressing the [...] non-skid footwear 11. Teach patient and patient quality assurance representative to maintain environment for safety and [...] (cane, walker) within reach 19. Request patient quality assurance representative bring adaptive equipment/mobility aids from home or obtain and provide as needed 20. Consult pharmacy regarding effects of med's affecting mobility, cognition, and alternatives 21. Obtain physician order for PT if risk factors associated with mobility are present 22. Obtain physician order for OT as appropriate 23. Utilize diversional activities 24. Educate patient and patient quality assurance representative how to maintain a safe environment during visitationtimes (notify nurse prior to leaving bedside) 25. Consider appropriateness of medical or non-medical instrument cable fabricator 26. Set up voiding schedule as appropriate [...] supplement as ordered 13. Collaborate with clinical steam fitter supervisor maintenance 14. Include patient/ patient's quality assurance representative in decisions related to nutrition Outcome: [...] patient need discharge transportation arranged? No 3-Midnight Respiratory Supervisor met with patient, introduced self, and explained [...] yesterday but information is not in chart. media consultant outside sales contacted Registration again today to follow up with patient to get information. Patient reports her spouse took home her wallet so she was unable to provide cards to me. IMM given to patient for signature, copy placed in chart. PCP: ANN MARIE RHODES MD Pharmacy: prefers [facility] OP Pharm[facility] PCP and pharmacy confirmed with patient. ANN MARIE RHODES MD added to Follow Up Providers for [...] possible discharge later today. Annita Still MD Ob-Accounts Adjustable Clerk Resident, PGY-2 * Op Note - Sarah Strange DO - 08/04/2025 9:37 AM EST Gynecologic Operative Note NAME: Eunice Anderson : 1955 PROCEDURE DATE: 08/04/2025 Pre-op Diagnosis: vaginal bleeding with acute blood loss anemia Post-op Diagnosis: same as above Procedure: Dilation and Curettage Surgeon: Dr. Dustin Santiago Jboss Architect: Dr Sarah Strange D.O. PGY-2 Anesthesia Type: [...] were correct x 2. Sarah Strange DO Farm Operations Manager Resident, PGY-2 Cosigned by Dustin Santiago MD [...] Plan of Treatment DateTypeDepartmentCare Team (Latest Contact Info)Ddhlwudaozk85/24/2025Hospital Encounter [facility] - Surgery [address] [place] [address] Justin Mackey MD [address] [place] [phone] 08/21/2025 8:00 AM ESTInfusion Paola Wilson [facility] - Medical Oncology [address] [place] [phone] 08/21/2025 11:00 AM ESTOffice Visit Paola Wilson [facility] - Medical Oncology [address] [place] [phone] Melinda Coffey PA [address] [place] [address] 09/10/2025 11:00 AM ESTInfusion Paola Ellington [facility] - Medical Oncology [address] [place] [phone] 09/10/2025 1:30 PM ESTOffice [facility] of [facility] [address] [place] [phone] Annita Patton, WAFER FABRICATOR-AUTO BODY REPAIRMAN [address] [facility], [address] [place] [address] 09/11/2025 8:00 AM ESTInfusion Paola Ellington [facility] - Medical Oncology formerly [facility] [place] [phone] NameTypePriorityAssociated DiagnosesDate/TimeSurgical PathologyPathology and OfzuduhwToegmri39/08/2025 10:06 AM ESTNameTypePriorityAssociated DiagnosesOrder ScheduleSurgical PathologyPathology and CytologyRoutineRelease Upon Ordering for 1 Occurrences starting 08/04/2025, 1 completedNamePriorityAssociated Diagnoses Date/TimeINSERTION PORT A CATH needed for chemotherapy documented as of this encounter Procedures Procedure NamePriorityDate/TimeAssociated DiagnosisCommentsCROSSMATCH RBCRoutine 08/11/2025 12:37 AM EST CBC WITH AUTO DUJDDGDMQEOCSmyoktx14/13/2025 5:32 AM EST COMPREHENSIVE METABOLIC DITEYAomfxcr17/13/2025 5:32 AM EST CBC WITH AUTO VQWQAZUGNLOSFwcycuh61/12/2025 5:58 AM EST TYPE AND QBLEHVOlodmnc51/12/2025 5:57 AM EST COMPREHENSIVE METABOLIC QUFYGVamwtgk40/12/2025 5:57 AM EST SURGICAL EZYRXIBJZGuzkrfg46/11/2025 3:42 PM EST NON-GYNECOLOGIC WJMINGDICkgzivf31/11/2025 2:44 PM EST TRANSFUSE RED BLOOD YXOTCEokmtbp68/11/2025 2:23 PM ESTCBC WITH AUTO DIFFERENTIAL Avlpwim1308/07/2025 5:40 AM EST COMPREHENSIVE METABOLIC XGGKDQwxgkff30/11/2025 5:40 AM EST CROSSMATCH XLXWzxhpyq64/10/2025 6:37 AM ESTCBC WITH AUTO DIFFERENTIALRoutine 08/06/2025 6:23 AM EST COMPREHENSIVE METABOLIC ZZWRZMdyexhn64/10/2025 6:23 AM EST COMPREHENSIVE METABOLIC INVQHUlqkavw60/09/2025 8:[address] CHEST W WEEHTrlceea51/09/2025 12:11 PM EST CBC WITH AUTO IXSYVYBCDDGCHdydenq20/09/2025 4:02 AM EST COMPREHENSIVE METABOLIC OLUTEXowoxwz30/09/2025 4:02 AM EST CBC WITH AUTO KPNGIMTPFMTOAgawbgs73/08/2025 12:18 PM EST TRANSFUSE RED BLOOD ZDOVTTfflemr19/08/2025 10:00 AM ESTPR HYSTEROSCOPY,W/ENDO BX 08/04/2025 9:37 AM EST vaginal bleed TRANSFUSE RED BLOOD ZXUOGNnnikse31/08/2025 8:39 AM ESTREPEATED ABORHRoutine 08/04/2025 8:27 AM ESTREPEATED WIOWPUvkvhxb87/08/2025 7:41 AM EST CROSSMATCH OQWLfwbjzf48/08/2025 5:30 AM EST CBC WITH AUTO QDFMKZAIIRLAMtgvlun29/08/2025 5:30 AM EST IRDAPmshiri13/08/2025 5:30 AM EST PROTIME & LTCMfopnfj47/08/2025 5:30 AM EST HTLSYYVEBXKjrcufu18/08/2025 5:30 AM EST TYPE AND IRKZDZHbsngfr41/08/2025 5:30 AM EST COMPREHENSIVE METABOLIC ARBOKGvqnwaf44/08/2025 5:30 AM EST PULSE OXIMETRY, CITEOghbyuc48/08/2025 3:38 AM ESTdocumented in this encounter Results * Crossmatch RBC:Number of Units: 2 (08/11/2025 12:37 AM EST)ComponentValueRef RangeTest MethodAnalysis TimePerformed AtPathologist SignatureBlood component [id number] BANK - BoqiiKYUnit [id number] BANK - BoqiiKY Unit ABOOBLOOD BANK - BoqiiKYUnit RHPOSBLOOD BANK - BoqiiKYCrossmatch CompatibleBLOOD BANK - BoqiiKYStatus of unitTRANSFUSEDBLOOD BANK - BoqiiKY Expiration [id number] BANK - BoqiiKYBB Type Lwhqifg9554MIHEQ BANK - BoqiiKYSpecimen (Source)Anatomical Location / LateralityCollection Method / VolumeCollection TimeReceived TimeBloodVenous blood / Blrltth1908/11/2025 12:37 AM EST08/04/2025 5:47 AM EST Narrative Authorizing ProviderResult TypeResult StatusKassidy Rejent MDBLOOD BANK PRODUCT ORDERABLESEdited Result - FinalPerforming OrganizationAddressCity/State/ZIP Code Phone Number [facility] [employer] * (ABNORMAL) CBC auto differential (08/09/2025 5:32 AM EST)ComponentValueRef RangeTest MethodAnalysis TimePerformed AtPathologist HjauvyfqqNNN01.1(H)4 - 11 X10^9/L110/09/2024 7:00 AM [facility] LABORATORYRBC Count2.98 (L)3.8 - 5.2 X10^12/L110/09/2024 7:00 AM [facility] Hemoglobin8.9(L)11.7 - 15.5 g/dL08/09/2025 7:00 AM [facility] BPGTFASIEMKvnlkrthaq22.3(L)35 - 47 %08/09/2025 7:00 AM [facility] LYWOHOOSILXUC7639 - 100 fL08/09/2025 7:00 AM [facility] KYDMLPDHKEMQD45.027 - 34 pg08/09/2025 7:00 AM [facility] MDDDBOUKMGRFSJ63.032 - 36 g/dL08/09/2025 7:00 AM [facility] MMIRHDKFBUUXA03.7(H)11.5 - 15 %08/09/2025 7:00 AM [facility] LABORATORYPlatelet Ydhzj403424 - 450 X10^9/L110/09/2024 7:00 AM [facility] LABORATORYMPV7.97 - 12 fL08/09/2025 7:00 AM [facility] LABORATORYNeutrophils %75.6%08/09/2025 7:00 AM [facility] LABORATORYComment:This is an appended report. These results have been appended to a previously preliminary verified report.Lymphocytes % 11.1%08/09/2025 7:00 AM [facility] LABORATORYComment:This is an appended report. These results have been appended to a previously preliminary verified report.Monocytes %6.4%08/09/2025 7:00 AM [facility] LABORATORYComment:This is an appended report. These results have been appended to a previously preliminary verified report.Eosinophils % 5.8%08/09/2025 7:00 AM [facility] LABORATORYComment:This is an appended report. These results have been appended to a previously preliminary verified report.Basophils %1.1%08/09/2025 7:00 AM [facility] LABORATORYComment:This is an appended report. These results have been appended to a previously preliminary verified report.Neutrophils Absolute (A)10.7(H)1.5 - 6.6 X10^9/L110/09/2024 7:00 AM [facility] LABORATORYComment:This is an appended report. These results have been appended to a previously preliminary verified report.Lymphocytes Absolute1.6 1.0 - 3.5 X10^9/L110/09/2024 7:00 AM [facility] Comment:This is an appended report. These results have been appended to a previously preliminary verified report.Monocytes Absolute0.90.0 - 0.9 X10^9/L 08/09/2025 7:00 AM [facility] LABORATORYComment:This is an appended report. These results have been appended to a previously preliminary verified report.Eosinophils Absolute0.8(H)0.0 - 0.4 X10^9/L110/09/2024 7:00 AM [facility] LABORATORYComment:This is an appended report. These results have been appended to a previously preliminary verified report. Basophils Absolute0.10.0 - 0.2 X10^9/L110/09/2024 7:00 AM [facility] LABORATORYComment:This is an appended report. These results have been appended to a previously preliminary verified report.Differential Type AUTOMATED QUQKOAOLTZZP83/13/2025 7:00 AM [facility] LABORATORYComment:This is an appended report. These results have been appended to a previously preliminary verified report.Specimen (Source)Anatomical Location / LateralityCollection Method / VolumeCollection TimeReceived Time BloodVenous blood / UnknownVenipuncture / Mwtmfrt2508/09/2025 5:32 AM EST 08/09/2025 5:54 AM EST Narrative Authorizing ProviderResult TypeResult StatusHala Magdaleno Sam MDLAB BLOOD ORDERABLESFinal ResultPerforming OrganizationAddressCity/State/ZIP CodePhone Number [facility] [address] [place] [address], * (ABNORMAL) Comprehensive metabolic panel (08/09/2025 5:32 AM EST)Component ValueRef RangeTest MethodAnalysis TimePerformed AtPathologist SignatureSODIUM [id number] - 146 mmol/L110/09/2024 6:26 AM [facility] POTASSIUM3.3(L)3.5 - 5.0 mmol/L110/09/2024 6:26 AM [facility] JYCVRZMBRCDFUWGYOE00578 - 109 mmol/L110/09/2024 6:26 AM [facility] LABORATORYCARBON ARKLLJK7554 - 32 mmol/L110/09/2024 6:26 AM [facility] LABORATORYANION KVH508 - 15 mmol/L110/09/2024 6:26 AM [facility] LABORATORYBLOOD UREA GAGCWUMV544 - 27 mg/dL08/09/2025 6:26 AM [facility] LABORATORYCREATININE0.650.40 - 1.00 mg/dL 08/09/2025 6:26 AM [facility] LABORATORYComment:METHOD TRACEABLE TO IDTN ERXMZJUTQDTDJFP0066 - 99 mg/dL08/09/2025 6:26 AM [facility] LABORATORYCALCIUM8.1(L)8.5 - 10.5 mg/dL08/09/2025 6:26 AM [facility] LABORATORYTOTAL PROTEIN5.4(L)6.0 - 8.0 g/dL 08/09/2025 6:26 AM [facility] LABORATORYALBUMIN3.0(L)3.2 - 5.3 g/dL08/09/2025 6:26 AM [facility] LABORATORYALKALINE DLKHSQQTQQY5509 - 130 U/L110/09/2024 6:26 AM [facility] XILGUHIMKYVNQ48<=41 U/L110/09/2024 6:26 AM [facility] LABORATORYALT6<=31 U/L110/09/2024 6:26 AM [facility] LABORATORYBILIRUBIN,TOTAL0.50.3 - 1.2 mg/dL08/09/2025 6:26 AM [facility] LABORATORYEGFR Non-Race Dependent>90>=60 ml/min/1.73sq.m 08/09/2025 6:26 AM [facility] LABORATORYComment: Reported eGFR is based on the CKD-EPI 2020 equation that does not use a race coefficient. Specimen (Source)Anatomical Location / LateralityCollection Method / Volume Collection TimeReceived TimeBloodVenous blood / UnknownVenipuncture / Unknown 08/09/2025 5:32 AM EST08/09/2025 5:54 AM EST Narrative Authorizing ProviderResult TypeResult StatusHala El Ouweini MDLAB BLOOD ORDERABLESFinal ResultPerforming OrganizationAddressCity/State/ZIP CodePhone Number [facility] [address] [place] [address], * (ABNORMAL) CBC auto differential (08/08/2025 5:58 AM EST)ComponentValueRef RangeTest MethodAnalysis TimePerformed AtPathologist SeljzsidmRBM75.1(H)4 - 11 X10^9/L110/08/2024 7:17 AM [facility] LABORATORYRBC Count2.95 (L)3.8 - 5.2 X10^12/L110/08/2024 7:17 AM [facility] Hemoglobin8.5(L)11.7 - 15.5 g/dL08/08/2025 7:17 AM [facility] DVJQFIQJLOYnvbnidpsb41.1(L)35 - 47 %08/08/2025 7:17 AM [facility] UTUJVMISZQAPI6219 - 100 fL08/08/2025 7:17 AM [facility] ZMSTPAJKTNCSX25.727 - 34 pg08/08/2025 7:17 AM [facility] EWDYTYIIWWBFHX15.532 - 36 g/dL08/08/2025 7:17 AM [facility] WVJRPMZWHUYCN03.7(H)11.5 - 15 %08/08/2025 7:17 AM [facility] LABORATORYPlatelet Idkhs159491 - 450 X10^9/L110/08/2024 7:17 AM EST [facility]OR[facility]ORYMPV8.17 - 12 fL08/08/2025 7:17 AM [facility] LABORATORYNeutrophils %88.6%08/08/2025 7:17 AM [facility] LABORATORYComment:This is an appended report. These results have been appended to a previously preliminary verified report.Lymphocytes % 5.1%08/08/2025 7:17 AM [facility] LABORATORYComment:This is an appended report. These results have been appended to a previously preliminary verified report.Monocytes %5.9%08/08/2025 7:17 AM [facility] LABORATORYComment:This is an appended report. These results have been appended to a previously preliminary verified report.Eosinophils % 0.1%08/08/2025 7:17 AM [facility] LABORATORYComment:This is an appended report. These results have been appended to a previously preliminary verified report.Basophils %0.3%08/08/2025 7:17 AM [facility] LABORATORYComment:This is an appended report. These results have been appended to a previously preliminary verified report.Neutrophils Absolute (A)16.0(H)1.5 - 6.6 X10^9/L110/08/2024 7:17 AM [facility] LABORATORYComment:This is an appended report. These results have been appended to a previously preliminary verified report.Lymphocytes Absolute0.9 (L)1.0 - 3.5 X10^9/L110/08/2024 7:17 AM [facility] Comment:This is an appended report. These results have been appended to a previously preliminary verified report.Monocytes Absolute1.1(H)0.0 - 0.9 X10^9/L110/08/2024 7:17 AM [facility] LABORATORYComment:This is an appended report. These results have been appended to a previously preliminary verified report.Eosinophils Absolute0.00.0 - 0.4 X10^9/L110/08/2024 7:17 AM [facility] [facility] LABORATORYComment:This is an appended report. These results have been appended to a previously preliminary verified report.Basophils Absolute0.00.0 - 0.2 X10^9/L110/08/2024 7:17 AM [facility] LABORATORYComment:This is an appended report. These results have been appended to a previously preliminary verified report.Differential TypeAUTOMATED UBAIWXCEYNZZ25/12/2025 7:17 AM [facility] LABORATORYComment:This is an appended report. These results have been appended to a previously preliminary verified report.Specimen (Source)Anatomical Location / LateralityCollection Method / VolumeCollection TimeReceived Time BloodVenous blood / UnknownVenipuncture / Xajlizt8508/08/2025 5:58 AM EST 08/08/2025 6:30 AM EST Narrative Authorizing ProviderResult TypeResult StatusHala Magdaleno PASCUAL BLOOD ORDERABLESFinal ResultPerforming OrganizationAddressCity/State/ZIP CodePhone Number [facility] [address] [place] [phone], * (ABNORMAL) Comprehensive metabolic panel (08/08/2025 5:57 AM EST)Component ValueRef RangeTest MethodAnalysis TimePerformed AtPathologist SignatureSODIUM [id number] - 146 mmol/L110/08/2024 7:06 AM [facility] POTASSIUM4.03.5 - 5.0 mmol/L110/08/2024 7:06 AM [facility] VMDUNAHXGVWNJFITKI77687 - 109 mmol/L110/08/2024 7:06 AM [facility] LABORATORYCARBON RWVPQXY1148 - 32 mmol/L110/08/2024 7:06 AM [facility] LABORATORYANION GAP95 - 15 mmol/L110/08/2024 7:06 AM [facility] LABORATORYBLOOD UREA TGFBMCYK954 - 27 mg/dL08/08/2025 7:06 AM [facility] LABORATORYCREATININE0.610.40 - 1.00 mg/dL 08/08/2025 7:06 AM [facility] LABORATORYComment:METHOD TRACEABLE TO IDMS NJUTRCUUSKNPPCQ218(H)65 - 99 mg/dL08/08/2025 7:06 AM [facility] LABORATORYCALCIUM8.58.5 - 10.5 mg/dL08/08/2025 7:06 AM [facility] LABORATORYTOTAL PROTEIN5.4(L)6.0 - 8.0 g/dL 08/08/2025 7:06 AM [facility] LABORATORYALBUMIN3.23.2 - 5.3 g/dL08/08/2025 7:06 AM [facility] LABORATORYALKALINE JNRFEVLFRLS2707 - 130 U/L110/08/2024 7:06 AM [facility] CGMIYSSHHRXHG58<=41 U/L110/08/2024 7:06 AM [facility] LABORATORYALT3<=31 U/L110/08/2024 7:06 AM [facility] LABORATORYBILIRUBIN,TOTAL0.80.3 - 1.2 mg/dL08/08/2025 7:06 AM [facility] LABORATORYEGFR Non-Race Dependent>90>=60 ml/min/1.73sq.m 08/08/2025 7:06 AM [facility] LABORATORYComment: Reported eGFR is based on the CKD-EPI 2020 equation that does not use a race coefficient. Specimen (Source)Anatomical Location / LateralityCollection Method / Volume Collection TimeReceived TimeBloodVenous blood / UnknownVenipuncture / Unknown 08/08/2025 5:57 AM EST08/08/2025 6:30 AM EST Narrative Authorizing ProviderResult TypeResult StatusBrittnee Sam MDLAB BLOOD ORDERABLESFinal ResultPerforming OrganizationAddressCity/State/ZIP CodePhone Number [facility] [address] [place] [address], * Type and screen(includes indirect grady) (08/08/2025 5:57 AM EST)Component ValueRef RangeTest MethodAnalysis TimePerformed AtPathologist SignatureABOO 08/08/2025 7:52 AM ESTTTH BB - JPAMIPJWUEcddtmts83/12/2025 7:52 AM ESTTTH BB - WELLSKYAntibody MoavzdOxzisdit62/12/2025 7:52 AM ESTTTH BB - WELLSKYSpecimen (Source)Anatomical Location / LateralityCollection Method / VolumeCollection TimeReceived TimeBloodVenous blood / UnknownVenipuncture / Xkmcsbv3808/08/2025 5:57 AM EST08/08/2025 6:54 AM EST Narrative Authorizing ProviderResult TypeResult StatusDustin Santiago MDBLOOD BANK TEST ORDERABLESEdited Result - FinalPerforming OrganizationAddressCity/State/ZIP Code Phone Number [facility] RAJI MALDONADO [address] [place] [address], [place] * Surgical Pathology (08/07/2025 3:42 PM EST)ComponentValueRef RangeTest Method Analysis TimePerformed AtPathologist SignatureCase ReportSurgical Pathology Report ? Case: [id number] ? Authorizing Provider: ??Dennis Monson MD ?Collected: ? 08/07/2025 1542 ? Ordering Location: ? [facility] ??Received: ?08/07/2025 1647 ? - Surgery ? Pathologist: ? Gene K MD Qu[place] ? Specimens: ?? 1) - Uterus, Fallopian Tube, Ovary, UTERUS, CERVIX, BILATERAL TUBES AND OVARIES ? 2) - Pelvis, LEFT POSTERIOR PELVIS BIOPSY ? 08/14/2025 2:47 PM [facility] LABORATORYFinal Diagnosis1. Uterus, fallopian tubes and ovaries, hysterectomy and bilateral salpingo-oophorectomy: ENDOMETRIOID ADENOCARCINOMA of endometrium, grade 2, with deep myometrial invasion. Carcinoma invades lower uterine segment stroma. Positive cervical stroma, uterine serosa (implants), bilateral mesosalpinx and left fallopian tube. Focal lymphovascular invasion. Endometriosis of right fallopian tube serosa. Negative ovaries. Negative parametrial/paracervical margins. 2. Left posterior pelvis, biopsy: Metastatic carcinoma.08/14/2025 2:47 PM [facility] at 1447 ESTGross Description1. Received in [...] 1 minute Total fixation time: 27 hours (18,ns,[id number], m8.1) . 2. Received in formalin labeled ANDERSON, left posterior pelvis biopsy is pink-lambert feathery and friable soft tissue admixed with hemorrhagic material, 2.5 x 2.5 x 1.2 cm in aggregate. The specimen is submitted entirely in cassettes A- C. (3,ns,[id number], m8.1) 08/14/2025 2:47 PM [facility] LABORATORYSynoptic ChecklistENDOMETRIUM ENDOMETRIUM - All Specimens CC 8 - Protocol posted: 09/06/2024 SPECIMEN ?? [...] (no nodes submitted or found)08/14/2025 2:47 PM [facility] LABORATORYEmbedded Ofmjss3608/14/2025 2:47 PM [facility] LABORATORYSpecimen (Source)Anatomical Location / LateralityCollection Method / VolumeCollection TimeReceived TimeTissue (Uterus, Fallopian Tube, Ovary)08/07/2025 3:42 PM EST08/07/2025 4:47 PM ESTComment:Pre-op diagnosis: ENDOMETRIAL CANCERTissue specimen (specimen)Pelvic region / Kkkoagi3508/07/2025 3:43 PM EST08/07/2025 4:47 PM ESTComment:Pre-op diagnosis: ENDOMETRIAL CANCER Narrative Authorizing ProviderResult TypeResult Carli Monson MDPATHOLOGY/CYTOLOGY ORDERABLESFinal ResultPerforming OrganizationAddressCity/State/ZIP CodePhone Number [facility] [address] [place] [address], * Transfuse RBC:1 Unit (08/07/2025 2:56 PM EST) Narrative Authorizing ProviderResult TypeResult StatusAleia Monica Catherine MDBLOOD TRANSFUSION ORDERABLESFinal Result * Transfuse RBC:1 Unit (08/07/2025 2:56 PM EST) Narrative Authorizing ProviderResult TypeResult StatusAleia Monica Catherine MDBLOOD TRANSFUSION ORDERABLESFinal Result * Cytology non-gynecologic (08/07/2025 2:44 PM EST)ComponentValueRef RangeTest MethodAnalysis TimePerformed AtPathologist SignatureCase ReportMedical Cytology Report ? Case: [id number] ? Authorizing Provider: ??Dennis Monson MD ?Collected: ? 08/07/2025 1444 ? Ordering Location: ? [facility] ??Received: ?08/07/2025 1501 ? - Surgery ? Pathologist: ? Darryl Alcantara MD ? Specimen: ?Pelvis, Pelvis fluid ? 08/14/2025 2:58 PM [facility] LABORATORYFinal DiagnosisPelvic fluid: Positive for Carcinoma, rare cells.08/14/2025 2:58 PM [facility] at 1458 ESTGross DescriptionReceived was 20ml of red fluid unfixed, labeled as Anderson, pelvis . CytoLyt added in lab. Specimen placed in formalin at 17:00 and had a total fixation time of 8 hours. 08/14/2025 2:58 PM [facility] LABORATORYEmbedded Images 08/14/2025 2:58 PM [facility] LABORATORYSpecimen (Source) Anatomical Location / LateralityCollection Method / VolumeCollection Time Received TimeFluidPelvic region / Oicbcpj5708/07/2025 2:44 PM EST08/07/2025 3:01 PM ESTComment:Pre-op diagnosis: ENDOMETRIAL CANCER Narrative Authorizing ProviderResult TypeResult StatusAdam Raven Monson MDPATHOLOGY/CYTOLOGY ORDERABLESFinal ResultPerforming OrganizationAddressCity/State/ZIP CodePhone Number [facility] [address] [place] [address], * (ABNORMAL) Comprehensive metabolic panel (08/07/2025 5:40 AM EST)Component ValueRef RangeTest MethodAnalysis TimePerformed AtPathologist SignatureSODIUM 526851 - 146 mmol/L110/07/2024 6:42 AM [facility] POTASSIUM3.2(L)3.5 - 5.0 mmol/L110/07/2024 6:42 AM [facility] NYHXLSGJFGEYFKLTAJ882(H)98 - 109 mmol/L110/07/2024 6:42 AM [facility] LABORATORYCARBON TTLODYW7028 - 32 mmol/L110/07/2024 6:42 AM [facility] LABORATORYANION GAP85 - 15 mmol/L110/07/2024 6:42 AM [facility] LABORATORYBLOOD UREA IOADUGNJ882 - 27 mg/dL08/07/2025 6:42 AM [facility] LABORATORYCREATININE0.670.40 - 1.00 mg/dL 08/07/2025 6:42 AM [facility] LABORATORYComment:METHOD TRACEABLE TO IDTN VEVUYVYSWVYWVKH267(H)65 - 99 mg/dL08/07/2025 6:42 AM [facility] LABORATORYCALCIUM8.0(L)8.5 - 10.5 mg/dL08/07/2025 6:42 AM [facility] LABORATORYTOTAL PROTEIN5.6(L)6.0 - 8.0 g/dL08/07/2025 6:42 AM [facility] LABORATORYALBUMIN3.0(L)3.2 - 5.3 g/dL08/07/2025 6:42 AM [facility] LABORATORYALKALINE IKKEPGJGAXW0089 - 130 U/L110/07/2024 6:42 AM [facility] JBOIZRTDRVYZD23<=41 U/L110/07/2024 6:42 AM [facility] LABORATORYALT4<=31 U/L110/07/2024 6:42 AM [facility] LABORATORYBILIRUBIN,TOTAL0.70.3 - 1.2 mg/dL08/07/2025 6:42 AM [facility] LABORATORYEGFR Non-Race Dependent>90>=60 ml/min/1.73sq.m 08/07/2025 6:42 AM [facility] LABORATORYComment: Reported eGFR is based on the CKD-EPI 2020 equation that does not use a race coefficient. Specimen (Source)Anatomical Location / LateralityCollection Method / Volume Collection TimeReceived TimeBloodVenous blood / UnknownVenipuncture / Unknown 08/07/2025 5:40 AM EST08/07/2025 6:04 AM EST Narrative Authorizing ProviderResult TypeResult StatusHala Magdaleno PASCUAL BLOOD ORDERABLESFinal ResultPerforming OrganizationAddressCity/State/ZIP CodePhone Number [facility] [address] [place] [address], * (ABNORMAL) CBC auto differential (08/07/2025 5:40 AM EST)ComponentValueRef RangeTest MethodAnalysis TimePerformed AtPathologist SjzvloltqVWT02.4(H)4 - 11 X10^9/L110/07/2024 6:49 AM [facility] LABORATORYRBC Count2.87 (L)3.8 - 5.2 X10^12/L110/07/2024 6:49 AM [facility] Hemoglobin8.3(L)11.7 - 15.5 g/dL08/07/2025 6:49 AM [facility] ZIVCSBOZAUYkncdbuthq09.3(L)35 - 47 %08/07/2025 6:49 AM [facility] BXEALLWAKZTXP0061 - 100 fL08/07/2025 6:49 AM [facility] OBMFOVUGPOMRJ79.027 - 34 pg08/07/2025 6:49 AM [facility] YARLCKDBAVNULM30.932 - 36 g/dL08/07/2025 6:49 AM [facility] HUTQJPADJDWHL22.1(H)11.5 - 15 %08/07/2025 6:49 AM [facility] LABORATORYPlatelet Xazkj368079 - 450 X10^9/L110/07/2024 6:49 AM EST [facility]ORYMPV7.87 - 12 fL08/07/2025 6:49 AM [facility] LABORATORYBands %1%08/07/2025 6:49 AM [facility] LABORATORYComment:This is an appended report. These results have been appended to a previously preliminary verified report.Neutrophils %84% 08/07/2025 6:49 AM [facility] LABORATORYComment:This is an appended report. These results have been appended to a previously preliminary verified report.Lymphocytes %9%08/07/2025 6:49 AM [facility] LABORATORYComment:This is an appended report. These results have been appended to a previously preliminary verified report.Monocytes %5%08/07/2025 6:49 AM [facility] LABORATORYComment:This is an appended report. These results have been appended to a previously preliminary verified report. Eosinophils %1%08/07/2025 6:49 AM [facility] Comment:This is an appended report. These results have been appended to a previously preliminary verified report.Neutrophils Absolute (M)15.6(H)1.5 - 6.6 X10^9/L110/07/2024 6:49 AM [facility] LABORATORYComment: This is an appended report. These results have been appended to a previously preliminary verified report.Lymphocytes Absolute1.71.0 - 3.5 X10^9/L110/07/2024 6:49 AM [facility] LABORATORYComment:This is an appended report. These results have been appended to a previously preliminary verified report.Monocytes Absolute0.90.0 - 0.9 X10^9/L110/07/2024 6:49 AM [facility] LABORATORYComment:This is an appended report. These results have been appended to a previously preliminary verified report.Eosinophils Absolute0.20.0 - 0.4 X10^9/L110/07/2024 6:49 AM [facility] LABORATORYComment:This is an appended report. These results have been appended to a previously preliminary verified report.Polychromasia1+08/07/2025 6:49 AM [facility] LABORATORYComment:This is an appended report. These results have been appended to a previously preliminary verified report. Differential TypeMANUAL IZTRBVLOOJGP36/11/2025 6:49 AM [facility] LABORATORYComment:This is an appended report. These results have been appended to a previously preliminary verified report.Specimen (Source) Anatomical Location / LateralityCollection Method / VolumeCollection Time Received TimeBloodVenous blood / UnknownVenipuncture / Jmqcmbm0608/07/2025 5:40 AM EST08/07/2025 6:04 AM EST Narrative Authorizing ProviderResult TypeResult StatusBrittnee Sam MDLAB BLOOD ORDERABLESFinal ResultPerforming OrganizationAddressCity/State/ZIP CodePhone Number [facility] [address] [place] [address], [place] [phone] * Crossmatch RBC:Number of Units: 1 (08/06/2025 6:37 AM EST)Specimen (Source) Anatomical Location / LateralityCollection Method / VolumeCollection Time Received TimeBloodVenous blood / Pyainsz1108/06/2025 6:37 AM EST Narrative Authorizing ProviderResult TypeResult StatusMicssidnolan Still MDBLOOD BANK PRODUCT ORDERABLESFinal ResultPerforming OrganizationAddressCity/State/ZIP CodePhone Number [facility] * (ABNORMAL) Comprehensive metabolic panel (08/06/2025 6:23 AM EST)Component ValueRef RangeTest MethodAnalysis TimePerformed AtPathologist SignatureSODIUM [id number] - 146 mmol/L110/06/2024 7:33 AM [facility] POTASSIUM3.63.5 - 5.0 mmol/L110/06/2024 7:33 AM [facility] QUTJWFHDPCTNRFJXCR377(H)98 - 109 mmol/L110/06/2024 7:33 AM [facility] LABORATORYCARBON ZDMMJWF16(L)22 - 32 mmol/L110/06/2024 7:33 AM EST [facility]ORATORYANION UXY742 - 15 mmol/L110/06/2024 7:33 AM [facility] LABORATORYBLOOD UREA LUFZJYLB281 - 27 mg/dL 08/06/2025 7:33 AM [facility] LABORATORYCREATININE0.680.40 - 1.00 mg/dL08/06/2025 7:33 AM [facility] LABORATORYComment: METHOD TRACEABLE TO IDMS HTJMOPLKPXIGOPA968(H)65 - 99 mg/dL08/06/2025 7:33 AM [facility] LABORATORYCALCIUM8.1(L)8.5 - 10.5 mg/dL08/06/2025 7:33 AM [facility] LABORATORYTOTAL PROTEIN5.6(L)6.0 - 8.0 g/dL08/06/2025 7:33 AM [facility] LABORATORYALBUMIN3.23.2 - 5.3 g/dL08/06/2025 7:33 AM [facility] LABORATORYALKALINE NGNQHVURXME1145 - 130 U/L110/06/2024 7:33 AM [facility] GBSAQGUMTUQBC59<=41 U/L110/06/2024 7:33 AM [facility] LABORATORYALT5<=31 U/L110/06/2024 7:33 AM [facility] LABORATORYBILIRUBIN,TOTAL0.70.3 - 1.2 mg/dL08/06/2025 7:33 AM [facility] LABORATORYEGFR Non-Race Dependent>90>=60 ml/min/1.73sq.m 08/06/2025 7:33 AM [facility] LABORATORYComment: Reported eGFR is based on the CKD-EPI 2020 equation that does not use a race coefficient. Specimen (Source)Anatomical Location / LateralityCollection Method / Volume Collection TimeReceived TimeBloodVenous blood / UnknownVenipuncture / Unknown 08/06/2025 6:23 AM EST08/06/2025 7:03 AM EST Narrative Authorizing ProviderResult TypeResult StatusHallillie PASCUAL BLOOD ORDERABLESFinal ResultPerforming OrganizationAddressCity/State/ZIP CodePhone Number [facility] [address] [place] [address], [place] [phone] * (ABNORMAL) CBC auto differential (08/06/2025 6:23 AM EST)ComponentValueRef RangeTest MethodAnalysis TimePerformed AtPathologist CgmzbvuizTDR97.4(H)4 - 11 X10^9/L110/06/2024 8:07 AM [facility] LABORATORYRBC Count2.87 (L)3.8 - 5.2 X10^12/L110/06/2024 8:07 AM [facility] Hemoglobin8.3(L)11.7 - 15.5 g/dL08/06/2025 8:07 AM [facility] OHAAPZJCDCXcdwjrhiiu03.4(L)35 - 47 %08/06/2025 8:07 AM [facility] ZSTIKIGQQYUYP7248 - 100 fL08/06/2025 8:07 AM [facility] UDRRSNGPDIGQN63.027 - 34 pg08/06/2025 8:07 AM [facility] PPGEGVEZESAGTP93.832 - 36 g/dL08/06/2025 8:07 AM [facility] WNZZQWMMLDVFJ05.2(H)11.5 - 15 %08/06/2025 8:07 AM [facility] LABORATORYPlatelet Xilqg441712 - 450 X10^9/L110/06/2024 8:07 AM [facility] LABORATORYMPV8.27 - 12 fL08/06/2025 8:07 AM [facility] LABORATORYNeutrophils %78%08/06/2025 8:07 AM [facility] LABORATORYComment:This is an appended report. These results have been appended to a previously preliminary verified report.Lymphocytes %16 %08/06/2025 8:07 AM [facility] LABORATORYComment:This is an appended report. These results have been appended to a previously preliminary verified report.Monocytes %5%08/06/2025 8:07 AM [facility] LABORATORYComment:This is an appended report. These results have been appended to a previously preliminary verified report.Eosinophils %1%08/06/2025 8:07 AM [facility] LABORATORYComment:This is an appended report. These results have been appended to a previously preliminary verified report. Neutrophils Absolute (M)16.7(H)1.5 - 6.6 X10^9/L110/06/2024 8:07 AM [facility] LABORATORYComment:This is an appended report. These results have been appended to a previously preliminary verified report.Lymphocytes Absolute3.41.0 - 3.5 X10^9/L110/06/2024 8:07 AM [facility] LABORATORYComment:This is an appended report. These results have been appended to a previously preliminary verified report.Monocytes Absolute1.1(H)0.0 - 0.9 X10^9/L110/06/2024 8:07 AM [facility] LABORATORYComment:This is an appended report. These results have been appended to a previously preliminary verified report.Eosinophils Absolute0.20.0 - 0.4 X10^9/L110/06/2024 8:07 AM [facility] LABORATORYComment:This is an appended report. These results have been appended to a previously preliminary verified report.Polychromasia1+08/06/2025 8:07 AM [facility] LABORATORYComment:This is an appended report. These results have been appended to a previously preliminary verified report.Differential TypeMANUAL HLVQTIOWFOWT98/10/2025 8:07 AM [facility] LABORATORYComment: This is an appended report. These results have been appended to a previously preliminary verified report.Specimen (Source)Anatomical Location / Laterality Collection Method / VolumeCollection TimeReceived TimeBloodVenous blood / UnknownVenipuncture / Urymmru9808/06/2025 6:23 AM EST08/06/2025 7:03 AM EST Narrative Authorizing ProviderResult TypeResult StatusHala Magdaleno Sam MOLAB BLOOD ORDERABLESFinal ResultPerforming OrganizationAddressCity/State/ZIP CodePhone Number [facility] [address] [place] [address], * (ABNORMAL) Comprehensive metabolic panel (08/05/2025 8:11 PM EST)Component ValueRef RangeTest MethodAnalysis TimePerformed AtPathologist SignatureSODIUM 060396 - 146 mmol/L110/05/2024 8:57 PM [facility] POTASSIUM3.3(L)3.5 - 5.0 mmol/L110/05/2024 8:57 PM [facility] FLWBRBQYNHBPLIJVUD145(H)98 - 109 mmol/L110/05/2024 8:57 PM [facility] LABORATORYCARBON OFOSZCT40(L)22 - 32 mmol/L110/05/2024 8:57 PM [facility] LABORATORYANION GAP75 - 15 mmol/L110/05/2024 8:57 PM [facility] LABORATORYBLOOD UREA PYRUPGYW116 - 27 mg/dL 08/05/2025 8:57 PM [facility] LABORATORYCREATININE0.680.40 - 1.00 mg/dL08/05/2025 8:57 PM [facility] LABORATORYComment: METHOD TRACEABLE TO IDTN NXVJCRNZXNNGWEH259(H)65 - 99 mg/dL08/05/2025 8:57 PM [facility] LABORATORYCALCIUM8.0(L)8.5 - 10.5 mg/dL08/05/2025 8:57 PM [facility] LABORATORYTOTAL PROTEIN5.4(L)6.0 - 8.0 g/dL08/05/2025 8:57 PM [facility] LABORATORYALBUMIN3.0(L)3.2 - 5.3 g/dL08/05/2025 8:57 PM [facility] LABORATORYALKALINE [id number] - 130 U/L110/05/2024 8:57 PM [facility] [id number]<=41 U/L110/05/2024 8:57 PM [facility] LABORATORYALT5<=31 U/L110/05/2024 8:57 PM [facility] LABORATORYBILIRUBIN,TOTAL0.60.3 - 1.2 mg/dL08/05/2025 8:57 PM [facility] LABORATORYEGFR Non-Race Dependent>90>=60 ml/min/1.73sq.m 08/05/2025 8:57 PM [facility] LABORATORYComment: Reported eGFR is based on the CKD-EPI 2020 equation that does not use a race coefficient. Specimen (Source)Anatomical Location / LateralityCollection Method / Volume Collection TimeReceived TimeBloodVenous blood / UnknownVenipuncture / Unknown 08/05/2025 8:11 PM EST08/05/2025 8:30 PM EST Narrative Authorizing ProviderResult TypeResult StatusBrittnee PASCUAL BLOOD ORDERABLESFinal ResultPerforming OrganizationAddressCity/State/ZIP CodePhone Number [facility] [address] [place] [address], * CT chest with contrast (08/05/2025 12:11 [...] 08/06/2025 7:20 AM Authorizing ProviderResult TypeResult StatusAlexandria Laskindred hospitala [facility] ORDERABLESFinal Result * (ABNORMAL) CBC auto differential (08/05/2025 4:02 AM EST)ComponentValueRef RangeTest MethodAnalysis TimePerformed AtPathologist JnbwtkhkjBZI57.8(H)4 - 11 X10^9/L110/05/2024 6:43 AM [facility] LABORATORYRBC Count2.76 (L)3.8 - 5.2 X10^12/L110/05/2024 6:43 AM [facility] Hemoglobin8.0(L)11.7 - 15.5 g/dL08/05/2025 6:43 AM [facility] NUKPKZPGOQHqsohzwgyj81.4(L)35 - 47 %08/05/2025 6:43 AM [facility] NLWOSULQPZBPB1642 - 100 fL08/05/2025 6:43 AM [facility] YIDPPXGKPRXDS78.127 - 34 pg08/05/2025 6:43 AM [facility] BKOGEJWTUKYLNO14.032 - 36 g/dL08/05/2025 6:43 AM [facility] YNHYXVJGLTVEA09.8(H)11.5 - 15 %08/05/2025 6:43 AM [facility] LABORATORYPlatelet Paqqc597898 - 450 X10^9/L110/05/2024 6:43 AM [facility] LABORATORYMPV8.17 - 12 fL08/05/2025 6:43 AM [facility] LABORATORYNeutrophils %84.1%08/05/2025 6:43 AM [facility] LABORATORYComment:This is an appended report. These results have been appended to a previously preliminary verified report.Lymphocytes % 10.6%08/05/2025 6:43 AM [facility] LABORATORYComment:This is an appended report. These results have been appended to a previously preliminary verified report.Monocytes %5.1%08/05/2025 6:43 AM [facility] LABORATORYComment:This is an appended report. These results have been appended to a previously preliminary verified report.Eosinophils % 0.0%08/05/2025 6:43 AM [facility] LABORATORYComment:This is an appended report. These results have been appended to a previously preliminary verified report.Basophils %0.2%08/05/2025 6:43 AM [facility] LABORATORYComment:This is an appended report. These results have been appended to a previously preliminary verified report.Neutrophils Absolute (A)16.6(H)1.5 - 6.6 X10^9/L110/05/2024 6:43 AM [facility] LABORATORYComment:This is an appended report. These results have been appended to a previously preliminary verified report.Lymphocytes Absolute2.1 1.0 - 3.5 X10^9/L110/05/2024 6:43 AM [facility] Comment:This is an appended report. These results have been appended to a previously preliminary verified report.Monocytes Absolute1.0(H)0.0 - 0.9 X10^9/L110/05/2024 6:43 AM [facility] LABORATORYComment:This is an appended report. These results have been appended to a previously preliminary verified report.Eosinophils Absolute0.00.0 - 0.4 X10^9/L110/05/2024 6:43 AM [facility] LABORATORYComment:This is an appended report. These results have been appended to a previously preliminary verified report.Basophils Absolute0.00.0 - 0.2 X10^9/L110/05/2024 6:43 AM [facility] LABORATORYComment:This is an appended report. These results have been appended to a previously preliminary verified report.Differential TypeAUTOMATED GDPKCOSIYHGT05/09/2025 6:43 AM [facility] LABORATORYComment:This is an appended report. These results have been appended to a previously preliminary verified report.Specimen (Source)Anatomical Location / LateralityCollection Method / VolumeCollection TimeReceived Time BloodVenous blood / UnknownVenipuncture / Uyurhes6808/05/2025 4:02 AM EST 08/05/2025 4:20 AM EST Narrative Authorizing ProviderResult TypeResult StatusKassidy Rejent MDLAB BLOOD ORDERABLESFinal ResultPerforming OrganizationAddressCity/State/ZIP CodePhone Number [facility] [address] [place] [phone], * (ABNORMAL) Comprehensive metabolic panel (08/05/2025 4:02 AM EST)Component ValueRef RangeTest MethodAnalysis TimePerformed AtPathologist SignatureSODIUM 258267 - 146 mmol/L110/05/2024 4:52 AM [facility] POTASSIUM3.53.5 - 5.0 mmol/L110/05/2024 4:52 AM [facility] UZSWAJDJLHZYABNGAW980(H)98 - 109 mmol/L110/05/2024 4:52 AM [facility] LABORATORYCARBON YEYASIA26(L)22 - 32 mmol/L110/05/2024 4:52 AM EST [facility]ORYANION GAP75 - 15 mmol/L110/05/2024 4:52 AM [facility] LABORATORYBLOOD UREA DSWVFPOX920 - 27 mg/dL 08/05/2025 4:52 AM [facility] LABORATORYCREATININE0.690.40 - 1.00 mg/dL08/05/2025 4:52 AM [facility] LABORATORYComment: METHOD TRACEABLE TO IDMS DASPFBSLMRLYJQI040(H)65 - 99 mg/dL08/05/2025 4:52 AM [facility] LABORATORYCALCIUM8.0(L)8.5 - 10.5 mg/dL08/05/2025 4:52 AM [facility] LABORATORYTOTAL PROTEIN5.2(L)6.0 - 8.0 g/dL08/05/2025 4:52 AM [facility] LABORATORYALBUMIN3.0(L)3.2 - 5.3 g/dL08/05/2025 4:52 AM [facility] LABORATORYALKALINE AITVTSFMKKJ1419 - 130 U/L110/05/2024 4:52 AM [facility] XXLKGXKUNHXCE95<=41 U/L110/05/2024 4:52 AM [facility] LABORATORYALT5<=31 U/L110/05/2024 4:52 AM [facility] LABORATORYBILIRUBIN,TOTAL0.70.3 - 1.2 mg/dL08/05/2025 4:52 AM [facility] LABORATORYEGFR Non-Race Dependent>90>=60 ml/min/1.73sq.m 08/05/2025 4:52 AM [facility] LABORATORYComment: Reported eGFR is based on the CKD-EPI 2020 equation that does not use a race coefficient. Specimen (Source)Anatomical Location / LateralityCollection Method / Volume Collection TimeReceived TimeBloodVenous blood / UnknownVenipuncture / Unknown 08/05/2025 4:02 AM EST08/05/2025 4:20 AM EST Narrative Authorizing ProviderResult TypeResult StatusAnnita PASCUAL BLOOD ORDERABLESFinal ResultPerforming OrganizationAddressCity/State/ZIP CodePhone Number [facility] [address] [place] [address], * Transfuse RBC:2 Units (08/04/2025 9:09 PM EST) Narrative Authorizing ProviderResult TypeResult StatusAnnita PARRAOOD TRANSFUSION ORDERABLESFinal Result * Transfuse RBC:2 Units (08/04/2025 9:09 PM EST) Narrative Authorizing ProviderResult TypeResult StatusMicssidy Rejent ETIENNE TRANSFUSION ORDERABLESFinal Result * (ABNORMAL) CBC auto differential (08/04/2025 12:18 PM EST)ComponentValueRef RangeTest MethodAnalysis TimePerformed AtPathologist KczxoaepnDCO00.4(H)4 - 11 X10^9/L110/04/2024 2:03 PM [facility] LABORATORYRBC Count3.12 (L)3.8 - 5.2 X10^12/L110/04/2024 2:03 PM [facility] Hemoglobin9.1(L)11.7 - 15.5 g/dL08/04/2025 2:03 PM [facility] JCTJKAYWXEVaxcwsnrch58.6(L)35 - 47 %08/04/2025 2:03 PM [facility] GNQXXXJYJKRQH4553 - 100 fL08/04/2025 2:03 PM [facility] WBEUAPFWYGRFT12.027 - 34 pg08/04/2025 2:03 PM [facility] IPGSIXAICCSCFO76.832 - 36 g/dL08/04/2025 2:03 PM [facility] IUYGGVWVHBBCC12.8(H)11.5 - 15 %08/04/2025 2:03 PM [facility] LABORATORYPlatelet Vbatu021350 - 450 X10^9/L110/04/2024 2:03 PM [facility] LABORATORYMPV8.37 - 12 fL08/04/2025 2:03 PM [facility] LABORATORYNeutrophils %88.9%08/04/2025 2:03 PM [facility] LABORATORYComment:This is an appended report. These results have been appended to a previously preliminary verified report.Lymphocytes % 8.7%08/04/2025 2:03 PM [facility] LABORATORYComment:This is an appended report. These results have been appended to a previously preliminary verified report.Monocytes %1.7%08/04/2025 2:03 PM [facility] LABORATORYComment:This is an appended report. These results have been appended to a previously preliminary verified report.Eosinophils % 0.4%08/04/2025 2:03 PM [facility] LABORATORYComment:This is an appended report. These results have been appended to a previously preliminary verified report.Basophils %0.3%08/04/2025 2:03 PM [facility] LABORATORYComment:This is an appended report. These results have been appended to a previously preliminary verified report.Neutrophils Absolute (A)12.8(H)1.5 - 6.6 X10^9/L110/04/2024 2:03 PM [facility] LABORATORYComment:This is an appended report. These results have been appended to a previously preliminary verified report.Lymphocytes Absolute1.2 1.0 - 3.5 X10^9/L110/04/2024 2:03 PM [facility] Comment:This is an appended report. These results have been appended to a previously preliminary verified report.Monocytes Absolute0.20.0 - 0.9 X10^9/L 08/04/2025 2:03 PM [facility] LABORATORYComment:This is an appended report. These results have been appended to a previously preliminary verified report.Eosinophils Absolute0.10.0 - 0.4 X10^9/L110/04/2024 2:03 PM [facility] LABORATORYComment:This is an appended report. These results have been appended to a previously preliminary verified report. Basophils Absolute0.00.0 - 0.2 X10^9/L110/04/2024 2:03 PM [facility] LABORATORYComment:This is an appended report. These results have been appended to a previously preliminary verified report.Elliptocytes1+08/04/2025 2:03 PM [facility] LABORATORYComment:This is an appended report. These results have been appended to a previously preliminary verified report.Differential TypeAUTOMATED HDQGKIMBXTRH87/08/2025 2:03 PM [facility] LABORATORYComment:This is an appended report. These results have been appended to a previously preliminary verified report.Specimen (Source)Anatomical Location / LateralityCollection Method / VolumeCollection TimeReceived TimeBloodVenous blood / UnknownVenipuncture / Rmxfnht6608/04/2025 12:18 PM EST08/04/2025 12:27 PM EST Narrative Authorizing ProviderResult TypeResult StatusAlexandria Lilliana DOLAB BLOOD ORDERABLESFinal ResultPerforming OrganizationAddressCity/State/ZIP CodePhone Number [facility] [address] [place] [address], [place] [phone] * Transfuse RBC:2 Units (08/04/2025 10:00 AM [...] AM EST)ComponentValueRef RangeTest Method Analysis TimePerformed AtPathologist DqnxdwxegIPZP07/08/2025 8:26 AM ESTTTH BB - ENBVMBAWGLgikqozm53/08/2025 8:26 AM ESTTTH BB - JANETKYSpecimen (Source) Anatomical Location / LateralityCollection Method / VolumeCollection Time Received TimeBloodVenous blood / UnknownVenipuncture / Jiheyji7308/04/2025 7:41 AM EST08/04/2025 8:14 AM EST Narrative Authorizing ProviderResult TypeResult StatusAleia K Catherine MDBLOOD BANK TEST ORDERABLESFinal ResultPerforming OrganizationAddressCity/State/ZIP CodePhone Number [facility] BB - JOEL [address] [place] [address], [place] * Crossmatch RBC:Number of Units: 2 (08/04/2025 5:30 AM EST)ComponentValueRef RangeTest MethodAnalysis TimePerformed AtPathologist SignatureBlood component [id number] BANK - WELLSKYUnit [id number] BANK - [place] Unit ABOOBLOOD BANK - WELLSKYUnit RHNEGBLOOD BANK - WELLSKYCrossmatch CompatibleBLOOD BANK - WELLSKYStatus of unitTRANSFUSEDBLOOD BANK - [place]LL[place] Expiration [id number] BANK - WELLSKYBB Type Yqvdxzc5486OGWQA BANK - WELLSKYBlood component czzqH3348H80SISEX BANK - WELLSKYUnit number [id number] BANK - WELLSKYUnit ABOOBLOOD BANK - WELLSKYUnit RHNEG BLOOD BANK - WELLSKYCrossmatchCompatibleBLOOD BANK - WELLSKYStatus of unit TRANSFUSEDBLOOD BANK - WELLSKYExpiration [id number] BANK - [place] BB Type Ybgkvfa0859HUDHE BANK - WELLSKYSpecimen (Source)Anatomical Location / LateralityCollection Method / VolumeCollection TimeReceived TimeBlood 08/04/2025 5:30 AM EST08/04/2025 5:47 AM EST Narrative Authorizing ProviderResult TypeResult StatusKassidnolan Still MDBLOOD BANK PRODUCT ORDERABLESEdited Result - FinalPerforming OrganizationAddressCity/State/ZIP Code Phone Number BLOOD BANK - [place] * Fibrinogen (08/04/2025 5:30 AM EST)ComponentValueRef RangeTest MethodAnalysis TimePerformed AtPathologist QwrlfvfvaSQZUPWVIPH724495 - 480 mg/dL08/04/2025 6:07 AM [facility] LABORATORYSpecimen (Source)Anatomical Location / LateralityCollection Method / VolumeCollection TimeReceived Time BloodVenous blood / UnknownVenipuncture / Isqqchu0908/04/2025 5:30 AM EST 08/04/2025 5:42 AM EST Narrative Authorizing ProviderResult TypeResult StatusKassidnolan Still MDLAB BLOOD ORDERABLESFinal ResultPerforming OrganizationAddressCity/State/ZIP CodePhone Number [facility] [address] [place] [address], [place] [phone] * (ABNORMAL) APTT (08/04/2025 5:30 AM EST)ComponentValueRef RangeTest Method Analysis TimePerformed AtPathologist HfupgnqrmIZUL15(L)26 - 37 sec08/04/2025 6:07 AM [facility] LABORATORYSpecimen (Source)Anatomical Location / LateralityCollection Method / VolumeCollection TimeReceived Time BloodVenous blood / UnknownVenipuncture / Hyzubkx5208/04/2025 5:30 AM EST 08/04/2025 5:42 AM EST Narrative Authorizing ProviderResult TypeResult StatusKassidy Cheko MOLAB BLOOD ORDERABLESFinal ResultPerforming OrganizationAddressCity/State/ZIP CodePhone Number [facility] [address] [place] [address], * Protime & INR (08/04/2025 5:30 AM EST)ComponentValueRef RangeTest Method Analysis TimePerformed AtPathologist BxnegkgtrQYPTAJO53.89.8 - 13.2 sec 08/04/2025 6:07 AM [facility] LABORATORYINR1.00.9 - 1.2 08/04/2025 6:07 AM [facility] LABORATORYSpecimen (Source) Anatomical Location / LateralityCollection Method / VolumeCollection Time Received TimeBloodVenous blood / UnknownVenipuncture / Rybcmkn9208/04/2025 5:30 AM EST08/04/2025 5:42 AM EST Narrative Authorizing ProviderResult TypeResult StatusMicssivelisse Still [facility] BLOOD ORDERABLESFinal ResultPerforming OrganizationAddressCity/State/ZIP CodePhone Number [facility] [address] [place] [address], * Type and screen (08/04/2025 5:30 AM EST)ComponentValueRef RangeTest Method Analysis TimePerformed AtPathologist MfaqzmhddMNVQ59/08/2025 8:20 AM ESTTTH BB - XQFQHGPHZWfqrwbag26/08/2025 8:20 AM ESTTTH BB - WELLSKYAntibody Screen Poblfeqh88/08/2025 8:20 AM ESTTTH BB - WELLSKYSpecimen (Source)Anatomical Location / LateralityCollection Method / VolumeCollection TimeReceived Time BloodVenous blood / UnknownVenipuncture / Gaxhmzg0008/04/2025 5:30 AM EST 08/04/2025 5:46 AM EST Narrative Authorizing ProviderResult TypeResult StatusKassidy Rejent MDBLOOD BANK TEST ORDERABLESEdited Result - FinalPerforming OrganizationAddressCity/State/ZIP Code Phone Number [facility] [address] [place] [address], [place] * (ABNORMAL) CBC auto differential (08/04/2025 5:30 AM EST)ComponentValueRef RangeTest MethodAnalysis TimePerformed AtPathologist UaswqcuoiRFJ44.7(H)4 - 11 X10^9/L110/04/2024 7:43 AM [facility] LABORATORYRBC Count2.10 (L)3.8 - 5.2 X10^12/L110/04/2024 7:43 AM [facility] Hemoglobin5.8(LL)11.7 - 15.5 g/dL08/04/2025 7:43 AM [facility] JKTKEGZMXRZrllwngpzi99.0(L)35 - 47 %08/04/2025 7:43 AM [facility] QPDYEMBKUXMYW9566 - 100 fL08/04/2025 7:43 AM [facility] LTWRIHVFMJOZP95.727 - 34 pg08/04/2025 7:43 AM [facility] SFJBIBNQKJVEPI36.532 - 36 g/dL08/04/2025 7:43 AM [facility] YTRKLATBZMPAT00.3(H)11.5 - 15 %08/04/2025 7:43 AM [facility] LABORATORYPlatelet Wipsm984810 - 450 X10^9/L110/04/2024 7:43 AM [facility] LABORATORYMPV8.37 - 12 fL08/04/2025 7:43 AM [facility] LABORATORYNeutrophils %82%08/04/2025 7:43 AM [facility] LABORATORYComment:This is an appended report. These results have been appended to a previously preliminary verified report. Lymphocytes %16%08/04/2025 7:43 AM [facility] Comment:This is an appended report. These results have been appended to a previously preliminary verified report.Monocytes %2%08/04/2025 7:43 AM EST [facility]This is an appended report. These results have been appended to a previously preliminary verified report. Neutrophils Absolute (M)11.2(H)1.5 - 6.6 X10^9/L110/04/2024 7:43 AM [facility] LABORATORYComment:This is an appended report. These results have been appended to a previously preliminary verified report.Lymphocytes Absolute2.21.0 - 3.5 X10^9/L110/04/2024 7:43 AM [facility] LABORATORYComment:This is an appended report. These results have been appended to a previously preliminary verified report.Monocytes Absolute0.30.0 - 0.9 X10^9/L110/04/2024 7:43 AM [facility] LABORATORYComment:This is an appended report. These results have been appended to a previously preliminary verified report.Elliptocytes1+08/04/2025 7:43 AM [facility] LABORATORYComment:This is an appended report. These results have been appended to a previously preliminary verified report.Differential TypeMANUAL NNXZITYTNUDJ01/08/2025 7:43 AM [facility] LABORATORYComment:This is an appended report. These results have been appended to a previously preliminary verified report.Specimen (Source)Anatomical Location / LateralityCollection Method / VolumeCollection TimeReceived Time BloodVenous blood / UnknownVenipuncture / Befdkbt8308/04/2025 5:30 AM EST 08/04/2025 5:42 AM EST Narrative Authorizing ProviderResult TypeResult StatusKassidy Rejent MDLAB BLOOD ORDERABLESFinal ResultPerforming OrganizationAddressCity/State/ZIP CodePhone Number [facility] [address] [place] [address], [place] [phone] * (ABNORMAL) Comprehensive metabolic panel (08/04/2025 5:30 AM EST)Component ValueRef RangeTest MethodAnalysis TimePerformed AtPathologist SignatureSODIUM 763937 - 146 mmol/L110/04/2024 6:15 AM [facility] POTASSIUM3.63.5 - 5.0 mmol/L110/04/2024 6:15 AM [facility] FVQQKDYEJFZOBEGXGP052(H)98 - 109 mmol/L110/04/2024 6:15 AM [facility] LABORATORYCARBON OQGEJVF97(L)22 - 32 mmol/L110/04/2024 6:15 AM [facility] LABORATORYANION GAP95 - 15 mmol/L110/04/2024 6:15 AM [facility] LABORATORYBLOOD UREA VDKBLFHB236 - 27 mg/dL 08/04/2025 6:15 AM [facility] LABORATORYCREATININE0.600.40 - 1.00 mg/dL08/04/2025 6:15 AM [facility] LABORATORYComment: METHOD TRACEABLE TO IDTN JQPALQMWDIOODOC450(H)65 - 99 mg/dL08/04/2025 6:15 AM [facility] LABORATORYCALCIUM7.8(L)8.5 - 10.5 mg/dL08/04/2025 6:15 AM [facility] LABORATORYTOTAL PROTEIN5.4(L)6.0 - 8.0 g/dL08/04/2025 6:15 AM [facility] LABORATORYALBUMIN3.1(L)3.2 - 5.3 g/dL08/04/2025 6:15 AM [facility] LABORATORYALKALINE ENOYRJANPGA7569 - 130 U/L110/04/2024 6:15 AM [facility] SJVAMKADMDHBV78<=41 U/L110/04/2024 6:15 AM [facility] LABORATORYALT5<=31 U/L110/04/2024 6:15 AM [facility] LABORATORYBILIRUBIN,TOTAL0.30.3 - 1.2 mg/dL08/04/2025 6:15 AM [facility] LABORATORYEGFR Non-Race Dependent>90>=60 ml/min/1.73sq.m 08/04/2025 6:15 AM [facility] LABORATORYComment: Reported eGFR is based on the CKD-EPI 2020 equation that does not use a race coefficient. Specimen (Source)Anatomical Location / LateralityCollection Method / Volume Collection TimeReceived TimeBloodVenous blood / UnknownVenipuncture / Unknown 08/04/2025 5:30 AM EST08/04/2025 5:42 AM EST Narrative Authorizing ProviderResult TypeResult StatusKassidy Cheko PASCUAL BLOOD ORDERABLESFinal ResultPerforming OrganizationAddressCity/State/ZIP CodePhone Number [facility] [address] [place] [address], [place] [phone] documented in this encounter Visit Diagnoses Not on filedocumented in this encounter Admitting Diagnoses Diagnosis Pelvic [...] 08/05/25 at 1621 Given08/09/2025 9:44 AM EST1,000 siLhykn0608/06/2025 7:58 AM EST1,000 mg bisacodyL (DULCOLAX) suppository 10 mg 10 mg, rectal, Daily PRN, constipation, Starting on 08/08/25 at 0702, Look-alike/sound-alike medication - verify indication [...] First dose on [place] 08/09/25 at 1030 Indications:LnrytvLzzfu92/13/2025 12:05 PM EST20 mg glucagon HCL injection 1 mg 1 [...] indication for use. HYDROmorphone (PF) (DILAUDID) injection 0.5 mg 0.5 mg, intravenous, Every 4 hours PRN, severe pain - pain scale 7-10, breakthrough, give chava first, Starting on 08/04/25 at 0618, If IV push, administer over over 2 to 3 minutes. Look-alike/sound-alike medication - verify indication for use. magnesium hydroxide (MILK OF MAGNESIA) suspension 30 mL 30 mL, oral, Daily, First dose on Wed08/08/25 at 0900, Shake well. ondansetron (PF) (ZOFRAN) injection 8 mg 8 mg, intravenous, Every 8 hours PRN, nausea, vomiting, Starting on 08/06/25 at 1145, Intravenous administration preferred to be given over 2-5 minutes., Intravenous Specific Administration: IV Push Given08/09/2025 4:27 PM EST8 pkOwdak7908/09/2025 4:53 AM EST8 vaExgyl8308/08/2025 7:41 PM EST8 mg oxyCODONE (ROXICODONE) immediate release tablet [...] use. Immediate release. Given08/09/2025 4:53 AM EST5 hoKzzin3208/08/2025 7:41 PM EST5 vmPvwfn8508/08/2025 2:49 PM EST5 mg potassium chloride (K-TAB,KLOR-CON) [...] 1 hour. New Bag08/06/2025 2:09 AM EST10 [id number] mL/hrNew Bag08/06/2025 12:57 AM EST10 mEq 100 mL/hrNew Bag08/05/2025 11:45 PM EST10 [id number] mL/hr prochlorperazine (COMPAZINE) injection 5 mg 5 mg, intravenous, Every 8 hours PRN, nausea, vomiting, Starting on Wed08/05/25 at 2106, When administered via IV Push, do not exceed 5 mg per minute Given08/07/2025 2:14 AM EST5 evZvlax5008/06/2025 7:59 AM EST5 oxJogel2508/05/2025 9:15 PM EST5 mg senna (SENOKOT) tablet 8.6 mg 8.6 mg, oral, 2 times daily, First dose on Wed08/08/25 at 0900 Given08/09/2025 9:43 AM EST8.6 sxOrtri8008/08/2025 9:27 PM EST8.6 mgGiven 08/08/2025 9:31 AM EST8.6 mg simethicone (MYLICON) chewable tablet 80 mg 80 mg, oral, 4 times daily PRN, flatulence, Starting on 08/05/25 at 1939 Given08/08/2025 12:43 PM EST80 qbWnjce2308/05/2025 8:55 PM EST80 mg sodium chloride 0.9 % flush 10 mL 10 mL, intravenous, As needed, line care, Starting on 08/05/25 at 1158 Given08/05/2025 12:14 PM EST10 mL sodium chloride 0.9 % flush 3 mL 3 mL, intravenous, As needed, line care, before and after each intermittent use, Starting on 08/04/25 at 0336 sodium chloride 0.9 % flush 3 mL 3 mL, intravenous, Every 12 hours scheduled, First dose on 08/04/25 at 0900 Given08/09/2025 9:47 AM EST3 [id number]/08/2025 9:27 PM EST3 bJDvimw1508/08/2025 9:31 AM EST3 mL sodium chloride 0.9 % flush bag 25 mL, intravenous, at 100 mL/hr, Administer over 15 Minutes, As needed, line care, line care afterIVPB administration, Starting on 08/04/25 at 0336 sodium chloride 0.9 % flush bag 25 mL, intravenous, at 100 mL/hr, Administer over 15 Minutes, As needed, line care, line care afterIVPB administration, Starting on 08/04/25 at 1031 sodium chloride 0.9% (NS) irrigation bottle As needed, Starting on 08/04/25 at 1002, Intra-op Given08/04/2025 10:02 AM EST1,000 mLOperative Site timolol (TIMOPTIC) 0.5 % ophthalmic solution 1 drop 1 drop, both eyes, 2 times daily, First dose on 08/04/25 at 1400 Given08/09/2025 9:47 AM EST1 ppdfIllxj99/12/2025 9:28 PM EST1 dropGiven 08/08/2025 9:31 AM EST1 dropdocumented in this encounter Active and Recently Administered Medications Times are shown in EST.Medication Order// acetaminophen (TYLENOL EXTRA STRENGTH) tablet 1,000 mg (COMPLETED) 1,000 mg, oral, Once, On Wed08/07/25 at 1200, For 1 dose, Pre-op, 30 minutes prior to surgery * 1219 (Given - Provider: Gayatri Stewart, JORDYN) amisulpride (BARHEMSYS) injection 10 mg (COMPLETED) 10 mg, intravenous, Once, On Wed08/07/25 at 1245, For 1 dose, Pre-op, Administer over 2 minutes. Flush line before and after administration with D5W or NS. * 1255 (Given - Provider: Gayatri Stewart, JORDYN) ceFAZolin (ANCEF) IVPB 2000 mg/50 mL in [...] * 0900 (Not Given - Provider: Akiko Torres, JORDYN - Reason: Patient/family refused) senna (SENOKOT) tablet 8.6 mg 8.6 mg, oral, 2 times daily, First dose on Wed08/08/25 at 0900 * 09 (Given - Provider: Amber Parker RN) * 2126 (Given - Provider: Joana Ibarra RN) * 942 (Given - Provider: Akiko Torres, JORDYN) sodium chloride 0.9 % flush 3 mL 3 mL, intravenous, Every 12 hours scheduled, First dose on Wed08/04/25 at 0900 * 0824 (Given - Provider: Amber Parker RN) * 113 (NOV Hold - Provider: User Epic - Reason: Patient not available) * 174 (MAR Unhold - Provider: User Epic) * [...] - Reason: Patient not available) * 174 (MAR Unhold - Provider: User Epic) * 2012 [...] Starting on Wed08/05/25 at 1621 * 1134 ([facility] Hold - Provider: User Epic - Reason: Patient not available) * 1744 ([facility] Unhold - Provider: User Epic) * 0944 [...] after initial treatment, repeat treatment. * 1134 ([facility] Hold - Provider: User Epic - Reason: Patient not available) * 1744 ([facility] Unhold - Provider: User Epic) dextrose (GLUTOSE) 40 % gel 15 g 15 g, oral, As needed, low blood sugar, blood glucose less than 70 mg/dL, Starting on 08/04/25 at 1031, If patient conscious and taking PO. If blood glucose is not greater than 70 mg/dL after initial treatment, repeat treatment. * 1134 ([facility] Hold - Provider: User Epic - Reason: Patient not available) * 1744 ([facility] Unhold - Provider: User Epic) dextrose 5 [...] after initial treatment, repeat treatment. * 1134 ([facility] Hold - Provider: User Epic - Reason: Patient not available) * 1744 ([facility] Unhold - Provider: User Epic) dextrose 5 [...] after initial treatment, repeat treatment. * 1134 ([facility] Hold - Provider: User Epic - Reason: Patient not available) * 1744 ([facility] Unhold - Provider: User Epic) dextrose 50 [...] VESICANT (RED) Warning: HYPERTONIC solution. * 1134 ([facility] Hold - Provider: User Epic - Reason: Patient not available) * 1744 ([facility] Unhold - Provider: User Epic) dextrose 50 [...] VESICANT (RED) Warning: HYPERTONIC solution. * 1134 ([facility] Hold - Provider: User Epic - Reason: Patient not available) * 1744 ([facility] Unhold - Provider: User Epic) fentaNYL (SUBLIMAZE) injection 50 mcg (CANCELED) 50 mcg, intravenous, Every 5 min PRN, Pain Scale 6-10, Starting on Wed08/07/25 at 1607, PACU (only), Up to a maximum dose of 150 mcg. Look-alike/sound-alike medication - verify indication for use. * 1709 (Given - Provider: Juan Carlos Kim, RN) glucagon HCL injection 1 mg 1 [...] after initial treatment, repeat treatment. * 1134 ([facility] Hold - Provider: User Epic - Reason: Patient not available) * 1744 ([facility] Unhold - Provider: User Epic) glucagon HCL [...] after initial treatment, repeat treatment. * 1134 ([facility] Hold - Provider: User Epic - Reason: Patient not available) * 1744 ([facility] Unhold - Provider: User Epic) HYDROmorphone (DILAUDID) injection 0.5 mg 0.5 mg, intravenous, Every 4 hours PRN, severe pain - pain scale 7-10, breakthrough pain, Starting on 08/04/25 at 1033, If IV push, administer over over 2 to 3 minutes. Look-alike/sound-alike medication - verify indication for use. * 1134 ([facility] Hold - Provider: User Epic - Reason: Patient not available) * 1744 ([facility] Unhold - Provider: User Epic) HYDROmorphone (PF) (DILAUDID) injection 0.5 mg 0.5 mg, intravenous, Every 4 hours PRN, severe pain - pain scale 7-10, breakthrough, give chava first, Starting on 08/04/25 at 0618, If IV push, administer over over 2 to 3 minutes. Look-alike/sound-alike medication - verify indication for use. * 1134 ([facility] Hold - Provider: User Epic - Reason: Patient not available) * 1744 ([facility] Unhold - Provider: User Epic) lidocaine PF (XYLOCAINE) 10 mg/mL (1 %) injection 1 mg (CANCELED) 1 mg (0.1 mL), intradermal, As needed, times 1 per IV attempt for IV start pain control, Starting on Wed08/07/25 at 1238, Pre-op * 1340 (Given - Provider: EDIN Inman) lidocaine-EPINEPHrine (XYLOCAINE W/EPI) 1 %-[id number] injection (CANCELED) As needed, Starting on Wed08/07/25 at 1611, Intra-op * 1611 (Given - Provider: Dennis Monson MD) ondansetron (PF) (ZOFRAN) injection 8 mg 8 mg, intravenous, Every 8 hours PRN, nausea, vomiting, Starting on Wed08/06/25 at 1145, Intravenous administration preferred to be given over 2-5 minutes., Intravenous Specific Administration: IV Push * 0837 (Given - Provider: Amber Parker RN) * 1134 ([facility] Hold - Provider: User Epic - Reason: Patient not available) * 1744 ([facility] Unhold - Provider: User Epic) * 1941 [...] Alternative - Provider: Joana Ibarra RN) * 144 (See Alternative - Provider: Amber Parker RN) [...] (Given - Provider: Amber Parker RN) * 194 (Given - Provider: Joana Ibarra RN) * 0453 (Given - Provider: Joana Ibarra RN) * 1409 (See Alternative - Provider: [...] Do not crush or chew. * 1134 ([facility] Hold - Provider: User Epic - Reason: Patient not available) * 1744 ([facility] Unhold - Provider: User [employer]) potassium chloride (KAYCIEL) 20 mEq/15 mL solution [...] policy and monitor potassium levels * 1134 ([facility] Hold - Provider: User Epic - Reason: Patient not available) * 1744 ([facility] Unhold - Provider: User Epic) potassium chloride [...] a minimum of 1 hour. * 1134 ([facility] Hold - Provider: User Epic - Reason: Patient not available) * 1744 ([facility] Unhold - Provider: User Epic) prochlorperazine (COMPAZINE) injection 5 mg 5 mg, intravenous, Every 8 hours PRN, nausea, vomiting, Starting on 08/05/25 at 2106, When administered via IV Push, do not exceed 5 mg per minute * 0214 (Given - Provider: Akiko Weller RN) * 1134 ([facility] Hold - Provider: User Epic - Reason: Patient not available) * 1744 ([facility] Unhold - Provider: User Epic) simethicone (MYLICON) chewable tablet 80 mg 80 mg, oral, 4 times daily PRN, flatulence, Starting on 08/05/25 at 1939 * 1134 ([facility] Hold - Provider: User Epic - Reason: Patient not available) * 1744 ([facility] Unhold - Provider: User Epic) * 1243 (Given - Provider: Amber Parker RN) sodium chloride 0.9 % flush 10 mL 10 mL, intravenous, As needed, line care, Starting on 08/05/25 at 1158 * 1134 ([facility] Hold - Provider: User Epic - Reason: Patient not available) * 1744 ([facility] Unhold - Provider: User Epic) sodium chloride 0.9 % flush 3 mL 3 mL, intravenous, As needed, line care, before and after each intermittent use, Starting on 08/04/25 at 0336 * 1134 ([facility] Hold - Provider: User Epic - Reason: Patient not available) * 1744 ([facility] Unhold - Provider: User Epic) sodium chloride 0.9 % flush bag 25 mL, intravenous, at 100 mL/hr, Administer over 15 Minutes, As needed, line care, line care afterIVPB administration, Starting on 08/04/25 at 0336 * 1134 ([facility] Hold - Provider: User Epic - Reason: Patient not available) * 1744 ([facility] Unhold - Provider: User Epic) sodium chloride 0.9 % flush bag 25 mL, intravenous, at 100 mL/hr, Administer over 15 Minutes, As needed, line care, line care afterIVPB administration, Starting on Wed08/04/25 at 1031 * 1134 (NOV Hold - Provider: User Epic - Reason: Patient not available) * 1744 (NOV Unhold - Provider: User Epic) Order Group [...]
--- OUTSIDE RECORDS SUMMARY | 2025-08-04 08:30 | XMS_ITS | Encounter Summary ---
Author Organization [facility] tem Address [id number] [address] [place] [address] Care Team Providers Care Refinery [employer] Name Role Phone Unavailable Primary Care Provider Unavailabl e Reason for Visit * Auth/Cert (Routine)SpecialtyDiagnoses / ProceduresReferred By ContactReferred To Contact Diagnoses Pelvic mass Vagina bleeding Vaginal bleeding pelvic mass/vaginal bleeding Dustin Santiago MD [address] [place] [address], [address] [place] [address] Phone: tel: fax: Referral IDStatusReasonStart DateExpiration DateVisits RequestedVisits [id number] Encounter Details DateTypeDepartmentCare Team (Latest Contact Info)Buwjjjhuvrr76/08/2025 8:30 AM EST - 08/04/2025 9:40 AM ESTSur[facility] [address] [place] [address] [phone] Dustin Santiago MD [address] [place] [address], [address] [place] [address] DILATION CURETTAGE [11611 (CPT??)] Surgery Details Date/TimeStatusLocationORServicePatient ClassCase ClassCase TypeTrauma Case? 08/04/2025 8:30 AMPostedTOLEDO SURGERYOR 02ObstetricsInpatientClass II Emergency Panel 1 ProcedureLRBAnesOp RegionWound ClassCommentsDILATION CURETTAGEN/AGeneral VaginaClean Contaminated SurgeonSurgeon RoleServicePanelCatherine, Dustin Anderson, DAOlxuxvoUvinuvvsfz1zbzgurpmyn in this encounter Social History Tobacco UseTypesPacks/DayYears UsedDateSmoking Tobacco: NeverSmokeless Tobacco: Never Tobacco Cessation:Counseling Given: Not Answered Alcohol UseStandard Drinks/WeekCommentsNever0 (1 standard drink = 0.6 oz pure alcohol)PHQ-2AnswerDate RecordedTotal Lazng53210/04/2024UDIT-CAnswerDate Recorded Q1: How often do you have [...] InformationValueDate RecordedSex Assigned at BirthNot on fileLegal YbnPgeelw53/08/2025 12:05 AM ESTGender IdentityNot on fileSexual OrientationNot on filedocumented as of this encounter Last Filed Vital Signs Vital SignReadingTime TakenCommentsBlood Bnbnkrnq806/6011 9:00 AM EST Spcbp3493 9:00 AM BEYHhorbxbrfgb02.8 ??C (98.2 ??F)08/04/2025 9:00 AM ESTRespiratory Qimp4192 9:00 AM ESTOxygen Quzshkbisv819%08/04/2025 9:00 AM ESTInhaled Oxygen Concentration--Rfvfdp05.2 kg (165 lb 12.6 oz)08/04/2025 8:39 AM NLOQpnavg745.5 cm (5' 2.01 )08/04/2025 8:39 AM ESTBody [...] history on file. who initially presented to [facility] for vaginal bleeding. A pelvic ultrasound and CT abdomen were performed that showed a uterine mass and enlarged lymph nodes. The patient was transferred to [facility]. Upon arrival speculumexam showed 1 large clot [...] Your Medications These medications were sent to [facility] [address] [facility] [address] acetaminophen 500 mg tablet famotidine 20 mg [...] Postop visit on 08/21 Jalyn Camp MD HEMATOLOGY ONCOLOGY CONSULTANT Resident, PGY-3 Cosigned by Sherry Cuellar MD [...] changes made as necessary. Jalyn Camp MD Funding Coordinator Resident PGY-2 08/09/25 6:44 AM Cosigned by [...] changes made as necessary. Jalyn Camp MD Funding Coordinator Resident PGY-2 08/08/25 6:38 AM Cosigned by [...] Camp MD - 08/07/2025 6:39 AM EST [facility] Daily Progress Note Admission Date: 08/04/2025 Hospital [...] -Hgb 7.2 (OSH)>5.8>2u pRBC>9.1>8>8.3>8.3 Jalyn Camp MD Funding Coordinator Resident, PGY-3 If questions or concerns, please contact via [facility] pager at [phone]. Cosigned by Dennis Monson MD at 08/07/2025 [...] Ramirez MD - 08/06/2025 7:09 AM EST [facility] Daily Progress Note Admission Date: 08/04/2025 Hospital [...] and hold food down. Nusrat Ramirez MD Funding Coordinator Resident, PGY-1 If questions or concerns, please contact via [facility] pager at [phone]. Cosigned by Sherry Cuellar MD at 08/06/2025 [...] Still MD - 08/05/2025 6:24 AM EST [facility] Admission Date: 08/04/2025 [...] home today with close follow up with Carousel Operator Onc for pathology review and treatment planning. Annita Still MD Funding Coordinator Resident, PGY-2 If questions or concerns, please contact via [facility] pager at [phone]. Cosigned by Dustin Santiago MD at 08/05/2025 [...] 08/04/2025 Performed by Dustin Santiago MD at [facility] Allergies Allergen Reactions Latex Hives and [...] infusion, 100 mL/hr, intravenous, Continuous PRN, Annita tSill MD [Transfer Hold] dextrose 5 % (D5W) [...] 1 mg, 1 mg, intramuscular, PRN, Sarah Snydera, DO glucagon HCL injection 1 mg, 1 mg, intramuscular, PRN, Mahendra Rcio MD [Transfer Hold] HYDROmorphone (DILAUDID) injection 0.5 [...] an obstructing tumor. Manuel Busby MD, FACS [facility] Minimally Invasive Robotic Surgery Board Certified in General Surgery Board Certified in Critical Care Office: [phone] Email: [email or web address] Thank you for allowing me to participate in the care of your patient. Please feel free to contact me with any questions or concerns. [phone] * Dennis Monson MD - 08/07/2025 11:26 AM EST HISTORY AND PHYSICAL INTERVAL NOTE: Eunice Anderson 1955 [id number] H&P reviewed. The patient was examined and there are no changes to the H&P. Dennis Monson MD Source Note - Jalyn Camp MD - 08/07/2025 6:39 AM EST [facility] Daily Progress Note Admission Date: 08/04/2025 Hospital [...] -Hgb 7.2 (OSH)>5.8>2u pRBC>9.1>8>8.3>8.3 Jalyn Camp MD Funding Coordinator Resident, PGY-3 If questions or concerns, please contact via [facility] pager at [phone]. Cosigned by Dennis Monson MD at 08/07/2025 11:22 AM EST * Annita Still MD - 08/04/2025 3:38 AM EST Gynecology Oncology Consultation Date of Admission: 08/04/2025 3:32 AM Chief Complaint : Uterine mass, vaginal bleeding History of Present Illness : Eunice Anderson is a 70 y.o. female with PMH of glaucoma who presents as a transport from [facility] for vaginal bleeding. Patient reports vaginal spotting that began 2 days ago. She reports feeling weak, lightheaded, and nauseous 1 day ago while at work and went to the bathroom where she filled the toilet with blood. Patient was brought to [facility] where [facility]N [facility] that revealed a likely uterine mass and possible enlarged lymph node. Hgb at the time was 9mg/dl and vaginal bleeding was stable. Patient was referred to OBGYN outpatient for close follow up. She reports worsening vaginal bleeding overnight along with weakness, lightheadedness, nausea. She also reports intermittent painful cramps and passage of clots. She was taken to [facility] for evaluation. Per report, the patient was vitally stable, pale, and hgb was 7.2mg/dl. On exam, 1 large clot was cleared from the vagina and another remained at the cervical os with a slow trickle of active bleeding. Patient was given IVF and decision was made to transport patient to [facility] for Gynecology Oncology evaluation for vaginal bleeding in the setting of a pelvic mass. Patient reports she has not seen a spindraw operator in 5 years. Denies prior gynecologic surgery. [...] Discussed with Dr. Santiago Annita Still MD Funding Coordinator Resident, PGY-2 If questions or concerns, please contact via [facility] pager at [phone]. Cosigned by Dustin Santiago MD at 08/04/2025 [...] Description: INTERVENTIONS: 1. Encourage patient or legal office services representative to report early pain and ask [...] per policy 9. Teach patient or legal office services representative interventions for comforting 08/09/20251725 by JORDYN [...] at the bedside 7. Instruct patient/ patient office services representative about use of safety devices 8. Include patient/ patient office services representative in decisions related to safety 08/09/20251725 [...] hygiene technique. 7. Identify and instruct patient/patient office services representative in use of appropriate isolation precautionsfor identified infection/symptoms. 8. Provide and discuss with patient/patient office services representative on educational MDRO sheet. 9. Encourage and monitor nutritional status daily and consult display director if indicated. 10. Implement neutropenic guidelines as needed. 08/09/20251725 by JORDYN Wharton Outcome: Adequate for Discharge 08/09/20251228 by JORDYN Wharton Outcome: Progressing Note: Evaluation of progress towards goal: Patient afebrile, vital signs stable at this time. Continuing to monitor. Problem: Knowledge Deficit Goal: Patient/patient office services representative demonstrates understanding of disease process, treatment [...] Score of =/> 25 or indicated by [facility] Assessment Goal: Patient should be free from fall Description: Interventions: 1. Wilmer to environment 2. Hourly rounds addressing the [...] non-skid footwear 11. Teach patient and patient office services representative to maintain environment for safety and [...] (cane, walker) within reach 19. Request patient office services representative bring adaptive equipment/mobility aids from home or obtain and provide as needed 20. Consult pharmacy regarding effects of med's affecting mobility, cognition, and alternatives 21. Obtain physician order for PT if risk factors associated with mobility are present 22. Obtain physician order for OT as appropriate 23. Utilize diversional activities 24. Educate patient and patient office services representative how to maintain a safe environment during visitationtimes (notify nurse prior to leaving bedside) 25. Consider appropriateness of medical or non-biomedical specialist 26. Set up voiding schedule as appropriate [...] supplement as ordered 13. Collaborate with clinical display director 14. Include patient/ patient's office services representative in decisions related to nutrition Outcome: [...] * Plan of Care - Eloisa Doshi [facility] - 08/09/2025 2:16 PM EST [...] ew also shows new medication use. * PT/OT/SALES DEVELOPMENT COORDINATOR - Neo Hoskins PTA - 08/09/2025 2:07 [...] Description: INTERVENTIONS: 1. Encourage patient or legal office services representative to report early pain and ask [...] per policy 9. Teach patient or legal office services representative interventions for comforting Outcome: Progressing Note: [...] at the bedside 7. Instruct patient/ patient office services representative about use of safety devices 8. Include patient/ patient office services representative in decisions related to safety Outcome: [...] hygiene technique. 7. Identify and instruct patient/patient office services representative in use of appropriate isolation precautionsfor identified infection/symptoms. 8. Provide and discuss with patient/patient office services representative on educational MDRO sheet. 9. Encourage and monitor nutritional status daily and consult display director if indicated. 10. Implement neutropenic guidelines as needed. Outcome: Progressing Note: Evaluation of progress towards goal: Patient afebrile, vital signs stable at this time. Continuing to monitor. Problem: Knowledge Deficit Goal: Patient/patient office services representative demonstrates understanding of disease process, treatment [...] Score of =/> 25 or indicated by [facility] Assessment Goal: Patient should be free from fall Description: Interventions: 1. Wilmer to environment 2. Hourly rounds addressing the [...] non-skid footwear 11. Teach patient and patient office services representative to maintain environment for safety and [...] (cane, walker) within reach 19. Request patient office services representative bring adaptive equipment/mobility aids from home or obtain and provide as needed 20. Consult pharmacy regarding effects of med's affecting mobility, cognition, and alternatives 21. Obtain physician order for PT if risk factors associated with mobility are present 22. Obtain physician order for OT as appropriate 23. Utilize diversional activities 24. Educate patient and patient office services representative how to maintain a safe environment during visitationtimes (notify nurse prior to leaving bedside) 25. Consider appropriateness of medical or non-biomedical specialist 26. Set up voiding schedule as appropriate [...] Description: INTERVENTIONS: 1. Encourage patient or legal office services representative to report early pain and ask [...] per policy 9. Teach patient or legal office services representative interventions for comforting Outcome: Progressing Note: [...] at the bedside 7. Instruct patient/ patient office services representative about use of safety devices 8. Include patient/ patient office services representative in decisions related to safety Outcome: [...] hygiene technique. 7. Identify and instruct patient/patient office services representative in use of appropriate isolation precautionsfor identified infection/symptoms. 8. Provide and discuss with patient/patient office services representative on educational MDRO sheet. 9. Encourage and monitor nutritional status daily and consult display director if indicated. 10. Implement neutropenic guidelines as needed. Outcome: Progressing Note: Evaluation of progress towards goal: No signs or symptoms of infection Problem: Knowledge Deficit Goal: Patient/patient office services representative demonstrates understanding of disease process, treatment [...] be free from fall Description: Interventions: 1. Wilmer to environment 2. Hourly rounds addressing the [...] non-skid footwear 11. Teach patient and patient office services representative to maintain environment for safety and [...] (cane, walker) within reach 19. Request patient office services representative bring adaptive equipment/mobility aids from home or obtain and provide as needed 20. Consult pharmacy regarding effects of med's affecting mobility, cognition, and alternatives 21. Obtain physician order for PT if risk factors associated with mobility are present 22. Obtain physician order for OT as appropriate 23. Utilize diversional activities 24. Educate patient and patient office services representative how to maintain a safe environment during visitationtimes (notify nurse prior to leaving bedside) 25. Consider appropriateness of medical or non-biomedical specialist 26. Set up voiding schedule as appropriate [...] supplement as ordered 13. Collaborate with clinical display director 14. Include patient/ patient's office services representative in decisions related to nutrition Outcome: [...] YESENIA SHAIKH RN 08/08/25 10:07 AM * PT/OT/SALES DEVELOPMENT COORDINATOR - Toya Ortiz OT/L - 08/08/2025 9:33 [...] 08/07/2025 Performed by Dennis Monson MD at [facility] DILATION CURETTAGE N/A 08/04/2025 Performed by Dustin Santiago MD at [facility] FLEXIBLE SIGMOIDOSCOPY N/A 08/07/2025 Performed by Manuel Busby MD at [facility] No chief complaint on file. 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 Principal Problem: Pelvic mass Active Problems: Vagina bleeding Vaginal bleeding * PT/OT/SALES DEVELOPMENT COORDINATOR - Ginny Mcghee, PT - 08/08/2025 9:31 [...] 08/07/2025 Performed by Dennis Monson MD at [facility] DILATION CURETTAGE N/A 08/04/2025 Performed by Dustin Santiago MD at [facility] FLEXIBLE SIGMOIDOSCOPY N/A 08/07/2025 Performed by Manuel Busby MD at [facility] No chief complaint on file. 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 Encourage patient or legal office services representative to report early pain and ask [...] per policy 9. Teach patient or legal office services representative interventions for comforting Outcome: Progressing Note: [...] at the bedside 7. Instruct patient/ patient office services representative about use of safety devices 8. Include patient/ patient office services representative in decisions related to safety Outcome: [...] hygiene technique. 7. Identify and instruct patient/patient office services representative in use of appropriate isolation precautionsfor identified infection/symptoms. 8. Provide and discuss with patient/patient office services representative on educational MDRO sheet. 9. Encourage and monitor nutritional status daily and consult display director if indicated. 10. Implement neutropenic guidelines as needed. Outcome: Progressing Note: Evaluation of progress towards goal: Pts VSS and labs WNL, no S/S of infection, all insertionsites clean dry and intact, pt and staff utilize proper handwashing technique. Problem: Knowledge Deficit Goal: Patient/patient office services representative demonstrates understanding of disease process, treatment [...] goal: Pt discharge plan started on admission, chiropractic care involved, discharges needs assessed. Problem: Moderate - High Risk Fall Score Description: Torres Fall Score of =/> 25 or indicated by [facility] Assessment Goal: Patient should be free from fall Description: Interventions: 1. Wilmer to environment 2. Hourly rounds addressing the [...] non-skid footwear 11. Teach patient and patient office services representative to maintain environment for safety and [...] (cane, walker) within reach 19. Request patient office services representative bring adaptive equipment/mobility aids from home or obtain and provide as needed 20. Consult pharmacy regarding effects of med's affecting mobility, cognition, and alternatives 21. Obtain physician order for PT if risk factors associated with mobility are present 22. Obtain physician order for OT as appropriate 23. Utilize diversional activities 24. Educate patient and patient office services representative how to maintain a safe environment during visitationtimes (notify nurse prior to leaving bedside) 25. Consider appropriateness of medical or non-biomedical specialist 26. Set up voiding schedule as appropriate [...] supplement as ordered 13. Collaborate with clinical display director 14. Include patient/ patient's office services representative in decisions related to nutrition Outcome: [...] Description: INTERVENTIONS: 1. Encourage patient or legal office services representative to report early pain and ask [...] per policy 9. Teach patient or legal office services representative interventions for comforting Outcome: Progressing Note: [...] at the bedside 7. Instruct patient/ patient office services representative about use of safety devices 8. Include patient/ patient office services representative in decisions related to safety Outcome: [...] hygiene technique. 7. Identify and instruct patient/patient office services representative in use of appropriate isolation precautionsfor identified infection/symptoms. 8. Provide and discuss with patient/patient office services representative on educational MDRO sheet. 9. Encourage and monitor nutritional status daily and consult display director if indicated. 10. Implement neutropenic guidelines as needed. Outcome: Progressing Note: Evaluation of progress towards goal: No signs or symptoms of infection Problem: Knowledge Deficit Goal: Patient/patient office services representative demonstrates understanding of disease process, treatment [...] Score of =/> 25 or indicated by [facility] Assessment Goal: Patient should be free from fall Description: Interventions: 1. Wilmer to environment 2. Hourly rounds addressing the [...] non-skid footwear 11. Teach patient and patient office services representative to maintain environment for safety and [...] (cane, walker) within reach 19. Request patient office services representative bring adaptive equipment/mobility aids from home or obtain and provide as needed 20. Consult pharmacy regarding effects of med's affecting mobility, cognition, and alternatives 21. Obtain physician order for PT if risk factors associated with mobility are present 22. Obtain physician order for OT as appropriate 23. Utilize diversional activities 24. Educate patient and patient office services representative how to maintain a safe environment during visitationtimes (notify nurse prior to leaving bedside) 25. Consider appropriateness of medical or non-biomedical specialist 26. Set up voiding schedule as appropriate [...] supplement as ordered 13. Collaborate with clinical display director 14. Include patient/ patient's office services representative in decisions related to nutrition Outcome: [...] the pelvis, flexible sigmoidoscopy Surgeon: Kehinde Monson Alignment Specialist: Zoë,PGY-3 present for all portions of the [...] condition the family was updated postoperatively. * PT/OT/SALES DEVELOPMENT COORDINATOR - Vale Bhatt OTR/L - 08/07/2025 11:46 AM EST Occupational Therapy OT Type of Visit: Medical deferral (will continue to follow) Reason For Medical Deferral: Off unit Off Unit: Surgery * PT/OT/SALES DEVELOPMENT COORDINATOR - Ginny Mcghee, PT - 08/07/2025 11:42 [...] Description: INTERVENTIONS: 1. Encourage patient or legal office services representative to report early pain and ask [...] per policy 9. Teach patient or legal office services representative interventions for comforting Outcome: Progressing Note: [...] at the bedside 7. Instruct patient/ patient office services representative about use of safety devices 8. Include patient/ patient office services representative in decisions related to safety Outcome: [...] hygiene technique. 7. Identify and instruct patient/patient office services representative in use of appropriate isolation precautionsfor identified infection/symptoms. 8. Provide and discuss with patient/patient office services representative on educational MDRO sheet. 9. Encourage and monitor nutritional status daily and consult display director if indicated. 10. Implement neutropenic guidelines as needed. Outcome: Progressing Note: Evaluation of progress towards goal: Pts VSS and labs WNL, no S/S of infection, all insertionsites clean dry and intact, pt and staff utilize proper handwashing technique. Problem: Knowledge Deficit Goal: Patient/patient office services representative demonstrates understanding of disease process, treatment [...] goal: Pt discharge plan started on admission, chiropractic care involved, discharges needs assessed. Problem: Moderate - High Risk Fall Score Description: Torres Fall Score of =/> 25 or indicated by [facility] Assessment Goal: Patient should be free from fall Description: Interventions: 1. Wilmer to environment 2. Hourly rounds addressing the [...] non-skid footwear 11. Teach patient and patient office services representative to maintain environment for safety and [...] (cane, walker) within reach 19. Request patient office services representative bring adaptive equipment/mobility aids from home or obtain and provide as needed 20. Consult pharmacy regarding effects of med's affecting mobility, cognition, and alternatives 21. Obtain physician order for PT if risk factors associated with mobility are present 22. Obtain physician order for OT as appropriate 23. Utilize diversional activities 24. Educate patient and patient office services representative how to maintain a safe environment during visitationtimes (notify nurse prior to leaving bedside) 25. Consider appropriateness of medical or non-biomedical specialist 26. Set up voiding schedule as appropriate [...] supplement as ordered 13. Collaborate with clinical display director 14. Include patient/ patient's office services representative in decisions related to nutrition Outcome: [...] Description: INTERVENTIONS: 1. Encourage patient or legal office services representative to report early pain and ask [...] per policy 9. Teach patient or legal office services representative interventions for comforting Outcome: Progressing Note: [...] at the bedside 7. Instruct patient/ patient office services representative about use of safety devices 8. Include patient/ patient office services representative in decisions related to safety Outcome: [...] hygiene technique. 7. Identify and instruct patient/patient office services representative in use of appropriate isolation precautionsfor identified infection/symptoms. 8. Provide and discuss with patient/patient office services representative on educational MDRO sheet. 9. Encourage and monitor nutritional status daily and consult display director if indicated. 10. Implement neutropenic guidelines as needed. Outcome: Progressing Note: Evaluation of progress towards goal: Pt free from signs of infection at this time, will continue to monitor for signs and symptoms of infection during shift. Pt afebrile. Problem: Knowledge Deficit Goal: Patient/patient office services representative demonstrates understanding of disease process, treatment [...] be free from fall Description: Interventions: 1. Wilmer to environment 2. Hourly rounds addressing the [...] non-skid footwear 11. Teach patient and patient office services representative to maintain environment for safety and [...] (cane, walker) within reach 19. Request patient office services representative bring adaptive equipment/mobility aids from home or obtain and provide as needed 20. Consult pharmacy regarding effects of med's affecting mobility, cognition, and alternatives 21. Obtain physician order for PT if risk factors associated with mobility are present 22. Obtain physician order for OT as appropriate 23. Utilize diversional activities 24. Educate patient and patient office services representative how to maintain a safe environment during visitationtimes (notify nurse prior to leaving bedside) 25. Consider appropriateness of medical or non-biomedical specialist 26. Set up voiding schedule as appropriate [...] supplement as ordered 13. Collaborate with clinical display director 14. Include patient/ patient's office services representative in decisions related to nutrition Outcome: [...] Description: INTERVENTIONS: 1. Encourage patient or legal office services representative to report early pain and ask [...] per policy 9. Teach patient or legal office services representative interventions for comforting Outcome: Progressing Note: [...] at the bedside 7. Instruct patient/ patient office services representative about use of safety devices 8. Include patient/ patient office services representative in decisions related to safety Outcome: [...] hygiene technique. 7. Identify and instruct patient/patient office services representative in use of appropriate isolation precautionsfor identified infection/symptoms. 8. Provide and discuss with patient/patient office services representative on educational MDRO sheet. 9. Encourage and monitor nutritional status daily and consult display director if indicated. 10. Implement neutropenic guidelines as needed. Outcome: Progressing Note: Evaluation of progress towards goal: Hand hygiene, monitor labs and vitals Problem: Knowledge Deficit Goal: Patient/patient office services representative demonstrates understanding of disease process, treatment [...] Score of =/> 25 or indicated by [facility] Assessment Goal: Patient should be free from fall Description: Interventions: 1. Wilmer to environment 2. Hourly rounds addressing the [...] non-skid footwear 11. Teach patient and patient office services representative to maintain environment for safety and [...] (cane, walker) within reach 19. Request patient office services representative bring adaptive equipment/mobility aids from home or obtain and provide as needed 20. Consult pharmacy regarding effects of med's affecting mobility, cognition, and alternatives 21. Obtain physician order for PT if risk factors associated with mobility are present 22. Obtain physician order for OT as appropriate 23. Utilize diversional activities 24. Educate patient and patient office services representative how to maintain a safe environment during visitationtimes (notify nurse prior to leaving bedside) 25. Consider appropriateness of medical or non-biomedical specialist 26. Set up voiding schedule as appropriate [...] supplement as ordered 13. Collaborate with clinical display director 14. Include patient/ patient's office services representative in decisions related to nutrition Outcome: [...] patient need discharge transportation arranged? No 3-Midnight Grain Shoveler met with patient, introduced self, and explained [...] yesterday but information is not in chart. online marketing strategist contacted Registration again today to follow up with patient to get information. Patient reports her spouse took home her wallet so she was unable to provide cards to me. IMM given to patient for signature, copy placed in chart. PCP: ANN MARIE RHODES MD Pharmacy: prefers [facility] PCP and pharmacy confirmed [...] possible discharge later today. Annita Still MD Ob-Carousel Operator Resident, PGY-2 * Op Note - Sarah Strange DO - 08/04/2025 9:37 AM EST Gynecologic Operative Note NAME: Eunice Anderson : 1955 PROCEDURE DATE: 08/04/2025 Pre-op Diagnosis: vaginal bleeding with acute blood loss anemia Post-op Diagnosis: same as above Procedure: Dilation and Curettage Surgeon: Dr. Dustin Santiago Alignment Specialist: Dr Sarah Strange D.O. PGY-2 Anesthesia Type: [...] were correct x 2. Sarah Strange DO Funding Coordinator Resident, PGY-2 Cosigned by Dustin Santiago MD [...] Plan of Treatment DateTypeDepartmentCare Team (Latest Contact Info)Ygvvtnhupfs56/24/2025 11:30 AM ESTHospital Encounter [facility] - Surgery [address] [place] [phone] Justin Mackey MD [address] [place] [phone] 08/20/2025 11:30 AM EST - 08/20/2025 12:30 PM ESTSurgery [facility] - Surgery [address] [place] [address] Justin Mackey MD [address] [place] [phone] INSERTION PORT A CATH [21979 (CPT??)]08/21/2025 8:00 AM ESTInfusion [facility] - Medical Oncology [address] [place] [phone] 08/21/2025 11:00 AM ESTOffice Visit Paola L [facility] - Medical Oncology [address] [place] [phone] Melinda Coffey PA [address] [place] [address] 09/10/2025 11:00 AM ESTInfusion Paola L [facility] - Medical Oncology [address] [place] [phone] 09/10/2025 1:30 PM ESTOffice Visit [facility], A Department of [address] [place] [phone] Annita Patton, GENERAL ACCOUNTING CLERK-DOCTOR OF OSTEOPATHY [address] [facility] [place] [address] 09/11/2025 8:00 AM ESTInfusion Paola L [facility] - Medical Oncology [address] [place] [phone] NameTypePriorityAssociated DiagnosesDate/TimeSurgical PathologyPathology and ZfdprpsrGtvxlsh79/08/2025 10:06 AM ESTNameTypePriorityAssociated DiagnosesOrder ScheduleSurgical PathologyPathology and CytologyRoutineRelease Upon Ordering for 1 Occurrences starting 08/04/2025, 1 completedNamePriorityAssociated Diagnoses Date/TimeINSERTION PORT A CATH needed for chemotherapy 08/20/2025 11:30 AM ESTdocumented as of this encounter Procedures Procedure NamePriorityDate/TimeAssociated DiagnosisCommentsCROSSMATCH RBCRoutine 08/11/2025 12:37 AM EST CBC WITH AUTO TDEFABGAYNMEJcbsmeg12/13/2025 5:32 AM EST COMPREHENSIVE METABOLIC NPEASAalwmpq04/13/2025 5:32 AM EST CBC WITH AUTO KGZHOXVMDYTGHlsdbky82/12/2025 5:58 AM EST TYPE AND LCGJMRKntsokv89/08/2025 5:57 AM EST COMPREHENSIVE METABOLIC QDLYXCmtacgo32/12/2025 5:57 AM EST SURGICAL JLYOLQAPHKajwkeq33/11/2025 3:42 PM EST NON-GYNECOLOGIC NVVHGAOZFfetasf48/11/2025 2:44 PM EST TRANSFUSE RED BLOOD SPTBDMtwyhht41/11/2025 2:23 PM ESTCBC WITH AUTO DIFFERENTIAL Oefpaio1508/07/2025 5:40 AM EST COMPREHENSIVE METABOLIC YMDHONmpqtnf84/11/2025 5:40 AM EST CROSSMATCH CBHNarpifw66/10/2025 6:37 AM ESTCBC WITH AUTO DIFFERENTIALRoutine 08/06/2025 6:23 AM EST COMPREHENSIVE METABOLIC UTZMWNpysoyd44/10/2025 6:23 AM EST COMPREHENSIVE METABOLIC OCTBHTnlkaev63/09/2025 8:[address] CHEST W FNKALxuygtx69/09/2025 12:11 PM EST CBC WITH AUTO ILHSPDBWXSMIEoeeuom75/09/2025 4:02 AM EST COMPREHENSIVE METABOLIC TBFRXZtkjkhp83/09/2025 4:02 AM EST CBC WITH AUTO MURQARQGHSYTIrdqlkc04/08/2025 12:18 PM EST TRANSFUSE RED BLOOD CBPPGRotzlxx26/08/2025 10:00 AM ESTPR HYSTEROSCOPY,W/ENDO BX 08/04/2025 9:37 AM EST vaginal bleed TRANSFUSE RED BLOOD FZFNDEitpivj01/08/2025 8:39 AM ESTREPEATED ABORHRoutine 08/04/2025 8:27 AM ESTREPEATED BOELXAkiyltr17/08/2025 7:41 AM EST CROSSMATCH IMLAplgajc91/08/2025 5:30 AM EST CBC WITH AUTO NMPYUJEFODLBQkucuwv30/08/2025 5:30 AM EST JYKALoniwxy28/08/2025 5:30 AM EST PROTIME & BQRTbdqlxj01/08/2025 5:30 AM EST KMHTPGFSZCCjydjhb31/08/2025 5:30 AM EST TYPE AND GKWGIQPeqvhvi06/08/2025 5:30 AM EST COMPREHENSIVE METABOLIC PXOLBLrhsrnx48/08/2025 5:30 AM EST PULSE OXIMETRY, FCSESukuswl19/08/2025 3:38 AM ESTdocumented in this encounter Results * Crossmatch RBC:Number of Units: 2 (08/11/2025 12:37 AM EST)ComponentValueRef RangeTest MethodAnalysis TimePerformed AtPathologist SignatureBlood component [id number] BANK - [employer] ConfectionsKYUnit [id number] BANK - [place] Unit ABOOBLOOD BANK - [place] ConfectionsKYUnit RHPOSBLOOD BANK - WELLSKYCrossmatch CompatibleBLOOD BANK - [place]utorious Nut ConfectionsKYStatus of unitTRANSFUSEDBLOOD BANK - [place] Expiration [id number] BANK - Nutor[place] Nut ConfectionsKYBB Type Mzphzox0663PJBJM BANK - WELLSKYSpecimen (Source)Anatomical Location / LateralityCollection Method / VolumeCollection TimeReceived TimeBloodVenous blood / Mleoehj2308/11/2025 12:37 AM EST08/04/2025 5:47 AM EST Narrative Authorizing ProviderResult TypeResult StatusKassidy Rejent MDBLOOD BANK PRODUCT ORDERABLESEdited Result - FinalPerforming OrganizationAddressCity/State/ZIP Code Phone Number [facility] - [place] * (ABNORMAL) CBC auto differential (08/09/2025 5:32 AM EST)ComponentValueRef RangeTest MethodAnalysis TimePerformed AtPathologist XphsyuobnEVU72.1(H)4 - 11 X10^9/L110/09/2024 7:00 AM [facility] LABORATORYRBC Count2.98 (L)3.8 - 5.2 X10^12/L110/09/2024 7:00 AM [facility] Hemoglobin8.9(L)11.7 - 15.5 g/dL08/09/2025 7:00 AM [facility] SMKIZDBRSVOpmaztvxsr58.3(L)35 - 47 %08/09/2025 7:00 AM [facility] VYLOYUCNCVWFC7024 - 100 fL08/09/2025 7:00 AM [facility] OTDQYZQUHYHPW31.027 - 34 pg08/09/2025 7:00 AM [facility] DZHCSDKOXFSGFF81.032 - 36 g/dL08/09/2025 7:00 AM [facility] IXUWAVFPOBCZL97.7(H)11.5 - 15 %08/09/2025 7:00 AM [facility] LABORATORYPlatelet Ykyte765642 - 450 X10^9/L110/09/2024 7:00 AM [facility] LABORATORYMPV7.97 - 12 fL08/09/2025 7:00 AM [facility] LABORATORYNeutrophils %75.6%08/09/2025 7:00 AM [facility] LABORATORYComment:This is an appended report. These results have been appended to a previously preliminary verified report.Lymphocytes % 11.1%08/09/2025 7:00 AM [facility] LABORATORYComment:This is an appended report. These results have been appended to a previously preliminary verified report.Monocytes %6.4%08/09/2025 7:00 AM [facility] LABORATORYComment:This is an appended report. These results have been appended to a previously preliminary verified report.Eosinophils % 5.8%08/09/2025 7:00 AM [facility] LABORATORYComment:This is an appended report. These results have been appended to a previously preliminary verified report.Basophils %1.1%08/09/2025 7:00 AM [facility] LABORATORYComment:This is an appended report. These results have been appended to a previously preliminary verified report.Neutrophils Absolute (A)10.7(H)1.5 - 6.6 X10^9/L110/09/2024 7:00 AM [facility] LABORATORYComment:This is an appended report. These results have been appended to a previously preliminary verified report.Lymphocytes Absolute1.6 1.0 - 3.5 X10^9/L110/09/2024 7:00 AM [facility] Comment:This is an appended report. These results have been appended to a previously preliminary verified report.Monocytes Absolute0.90.0 - 0.9 X10^9/L 08/09/2025 7:00 AM [facility] LABORATORYComment:This is an appended report. These results have been appended to a previously preliminary verified report.Eosinophils Absolute0.8(H)0.0 - 0.4 X10^9/L110/09/2024 7:00 AM [facility] LABORATORYComment:This is an appended report. These results have been appended to a previously preliminary verified report. Basophils Absolute0.10.0 - 0.2 X10^9/L110/09/2024 7:00 AM [facility] LABORATORYComment:This is an appended report. These results have been appended to a previously preliminary verified report.Differential Type AUTOMATED VXDBGSJYHCQW01/13/2025 7:00 AM [facility] LABORATORYComment:This is an appended report. These results have been appended to a previously preliminary verified report.Specimen (Source)Anatomical Location / LateralityCollection Method / VolumeCollection TimeReceived Time BloodVenous blood / UnknownVenipuncture / Hufrqbe9408/09/2025 5:32 AM EST 08/09/2025 5:54 AM EST Narrative Authorizing ProviderResult TypeResult StatusHala Magdaleno PASCUAL BLOOD ORDERABLESFinal ResultPerforming OrganizationAddressCity/State/ZIP CodePhone Number [facility] [address] [place] [phone], * (ABNORMAL) Comprehensive metabolic panel (08/09/2025 5:32 AM EST)Component ValueRef RangeTest MethodAnalysis TimePerformed AtPathologist SignatureSODIUM 249579 - 146 mmol/L110/09/2024 6:26 AM [facility] POTASSIUM3.3(L)3.5 - 5.0 mmol/L110/09/2024 6:26 AM [facility] CRYTOHJUWKGSFCGNHK81554 - 109 mmol/L110/09/2024 6:26 AM [facility] LABORATORYCARBON RFCWBQM9994 - 32 mmol/L110/09/2024 6:26 AM [facility] LABORATORYANION AML281 - 15 mmol/L110/09/2024 6:26 AM [facility] LABORATORYBLOOD UREA HBYGIAVX896 - 27 mg/dL08/09/2025 6:26 AM [facility] LABORATORYCREATININE0.650.40 - 1.00 mg/dL 08/09/2025 6:26 AM [facility] LABORATORYComment:METHOD TRACEABLE TO IDMS JACYQVVWAHJIEPF5375 - 99 mg/dL08/09/2025 6:26 AM [facility] LABORATORYCALCIUM8.1(L)8.5 - 10.5 mg/dL08/09/2025 6:26 AM [facility] LABORATORYTOTAL PROTEIN5.4(L)6.0 - 8.0 g/dL 08/09/2025 6:26 AM [facility] LABORATORYALBUMIN3.0(L)3.2 - 5.3 g/dL08/09/2025 6:26 AM [facility] LABORATORYALKALINE RCEEGICBQGT7574 - 130 U/L110/09/2024 6:26 AM [facility] LFWDLWOKCJETM83<=41 U/L110/09/2024 6:26 AM [facility] LABORATORYALT6<=31 U/L110/09/2024 6:26 AM [facility] LABORATORYBILIRUBIN,TOTAL0.50.3 - 1.2 mg/dL08/09/2025 6:26 AM [facility] LABORATORYEGFR Non-Race Dependent>90>=60 ml/min/1.73sq.m 08/09/2025 6:26 AM [facility] LABORATORYComment: Reported eGFR is based on the CKD-EPI 2020 equation that does not use a race coefficient. Specimen (Source)Anatomical Location / LateralityCollection Method / Volume Collection TimeReceived TimeBloodVenous blood / UnknownVenipuncture / Unknown 08/09/2025 5:32 AM EST08/09/2025 5:54 AM EST Narrative Authorizing ProviderResult TypeResult StatusHallillie PASCUAL BLOOD ORDERABLESFinal ResultPerforming OrganizationAddressCity/State/ZIP CodePhone Number [facility] [address] [place] [address], * (ABNORMAL) CBC auto differential (08/08/2025 5:58 AM EST)ComponentValueRef RangeTest MethodAnalysis TimePerformed AtPathologist ZkxbpgzugIRP42.1(H)4 - 11 X10^9/L110/08/2024 7:17 AM [facility] LABORATORYRBC Count2.95 (L)3.8 - 5.2 X10^12/L110/08/2024 7:17 AM [facility] Hemoglobin8.5(L)11.7 - 15.5 g/dL08/08/2025 7:17 AM [facility] AXAKHFYZVOVraougxhky72.1(L)35 - 47 %08/08/2025 7:17 AM [facility] MNHSJQFRNSBMI5639 - 100 fL08/08/2025 7:17 AM [facility] EDTAOLNOSKPTO41.727 - 34 pg08/08/2025 7:17 AM [facility] PZFGAYLESJBTSB53.532 - 36 g/dL08/08/2025 7:17 AM [facility] IXYECRSEKPQXL86.7(H)11.5 - 15 %08/08/2025 7:17 AM [facility] LABORATORYPlatelet Rsrpz879844 - 450 X10^9/L110/08/2024 7:17 AM [facility] LABORATORYMPV8.17 - 12 fL08/08/2025 7:17 AM [facility] LABORATORYNeutrophils %88.6%08/08/2025 7:17 AM [facility] LABORATORYComment:This is an appended report. These results have been appended to a previously preliminary verified report.Lymphocytes % 5.1%08/08/2025 7:17 AM [facility] LABORATORYComment:This is an appended report. These results have been appended to a previously preliminary verified report.Monocytes %5.9%08/08/2025 7:17 AM [facility] LABORATORYComment:This is an appended report. These results have been appended to a previously preliminary verified report.Eosinophils % 0.1%08/08/2025 7:17 AM [facility] LABORATORYComment:This is an appended report. These results have been appended to a previously preliminary verified report.Basophils %0.3%08/08/2025 7:17 AM [facility] LABORATORYComment:This is an appended report. These results have been appended to a previously preliminary verified report.Neutrophils Absolute (A)16.0(H)1.5 - 6.6 X10^9/L110/08/2024 7:17 AM [facility] LABORATORYComment:This is an appended report. These results have been appended to a previously preliminary verified report.Lymphocytes Absolute0.9 (L)1.0 - 3.5 X10^9/L110/08/2024 7:17 AM [facility] Comment:This is an appended report. These results have been appended to a previously preliminary verified report.Monocytes Absolute1.1(H)0.0 - 0.9 X10^9/L110/08/2024 7:17 AM [facility] LABORATORYComment:This is an appended report. These results have been appended to a previously preliminary verified report.Eosinophils Absolute0.00.0 - 0.4 X10^9/L110/08/2024 7:17 AM [facility] LABORATORYComment:This is an appended report. These results have been appended to a previously preliminary verified report.Basophils Absolute0.00.0 - 0.2 X10^9/L110/08/2024 7:17 AM [facility] LABORATORYComment:This is an appended report. These results have been appended to a previously preliminary verified report.Differential TypeAUTOMATED YJCRPJABNOLU89/12/2025 7:17 AM [facility] LABORATORYComment:This is an appended report. These results have been appended to a previously preliminary verified report.Specimen (Source)Anatomical Location / LateralityCollection Method / VolumeCollection TimeReceived Time BloodVenous blood / UnknownVenipuncture / Tekdvpv9008/08/2025 5:58 AM EST 08/08/2025 6:30 AM EST Narrative Authorizing ProviderResult TypeResult StatusHala Magdaleno Sam MDLAB BLOOD ORDERABLESFinal ResultPerforming OrganizationAddressCity/State/ZIP CodePhone Number [facility] [address] [place] [address], * (ABNORMAL) Comprehensive metabolic panel (08/08/2025 5:57 AM EST)Component ValueRef RangeTest MethodAnalysis TimePerformed AtPathologist SignatureSODIUM 822623 - 146 mmol/L110/08/2024 7:06 AM [facility] POTASSIUM4.03.5 - 5.0 mmol/L110/08/2024 7:06 AM [facility] OHLKCBIJSDQXRYIRTQ60679 - 109 mmol/L110/08/2024 7:06 AM [facility] LABORATORYCARBON LNWZYYH9058 - 32 mmol/L110/08/2024 7:06 AM [facility] LABORATORYANION GAP95 - 15 mmol/L110/08/2024 7:06 AM EST [facility] LABORATORYBLOOD UREA AYTNNSQK266 - 27 mg/dL08/08/2025 7:06 AM [facility] LABORATORYCREATININE0.610.40 - 1.00 mg/dL 08/08/2025 7:06 AM [facility] LABORATORYComment:METHOD TRACEABLE TO IDMS XBQXOLCMSZYLBNW161(H)65 - 99 mg/dL08/08/2025 7:06 AM EST [facility] LABORATORYCALCIUM8.58.5 - 10.5 mg/dL08/08/2025 7:06 AM [facility] LABORATORYTOTAL PROTEIN5.4(L)6.0 - 8.0 g/dL 08/08/2025 7:06 AM [facility] LABORATORYALBUMIN3.23.2 - 5.3 g/dL08/08/2025 7:06 AM [facility] LABORATORYALKALINE ZAPJSDYUAIA5942 - 130 U/L110/08/2024 7:06 AM [facility] OKSTXFPKNCCNB67<=41 U/L110/08/2024 7:06 AM [facility] LABORATORYALT3<=31 U/L110/08/2024 7:06 AM [facility] LABORATORYBILIRUBIN,TOTAL0.80.3 - 1.2 mg/dL08/08/2025 7:06 AM [facility] LABORATORYEGFR Non-Race Dependent>90>=60 ml/min/1.73sq.m 08/08/2025 7:06 AM [facility] LABORATORYComment: Reported eGFR is based on the CKD-EPI 2020 equation that does not use a race coefficient. Specimen (Source)Anatomical Location / LateralityCollection Method / Volume Collection TimeReceived TimeBloodVenous blood / UnknownVenipuncture / Unknown 08/08/2025 5:57 AM EST08/08/2025 6:30 AM EST Narrative Authorizing ProviderResult TypeResult StatusHala Magdaleno PASCUAL BLOOD ORDERABLESFinal ResultPerforming OrganizationAddressCity/State/ZIP CodePhone Number [facility] [address] [place] [address], * Type and screen(includes indirect grady) (08/08/2025 5:57 AM EST)Component ValueRef RangeTest MethodAnalysis TimePerformed AtPathologist SignatureABOO 08/08/2025 7:52 AM ESTTTH BB - XUVNYVQRFPeuubsvo77/12/2025 7:52 AM ESTTTH BB - WELLSKYAntibody JlmxsdObvuxbfu19/12/2025 7:52 AM ESTTT BB - WELLSKYSpecimen (Source)Anatomical Location / LateralityCollection Method / VolumeCollection TimeReceived TimeBloodVenous blood / UnknownVenipuncture / Kdlliyu4908/08/2025 5:57 AM EST08/08/2025 6:54 AM EST Narrative Authorizing ProviderResult TypeResult StatusAleia K Catherine MDBLOOD BANK TEST ORDERABLESEdited Result - FinalPerforming OrganizationAddressCity/State/ZIP Code Phone Number [facility] RAJI MALDONADO [address] [place] [address], * Surgical Pathology (08/07/2025 3:42 PM EST)ComponentValueRef RangeTest Method Analysis TimePerformed AtPathologist SignatureCase ReportSurgical Pathology Report ? Case: [id number] ? Authorizing Provider: ??Dennis Monson MD ?Collected: ? 08/07/2025 1542 ? Ordering Location: ? [facility] ??Received: ?08/07/2025 1647 ? - Surgery ? Pathologist: ? Gene K MD [place] ? Specimens: ?? 1) - Uterus, Fallopian Tube, Ovary, UTERUS, CERVIX, BILATERAL TUBES AND OVARIES ? 2) - Pelvis, LEFT POSTERIOR PELVIS BIOPSY ? 08/14/2025 2:47 PM [facility] LABORATORYFinal Diagnosis1. Uterus, fallopian tubes and ovaries, hysterectomy and bilateral salpingo-oophorectomy: ENDOMETRIOID ADENOCARCINOMA of endometrium, grade 2, with deep myometrial invasion. Carcinoma invades lower uterine segment stroma. Positive cervical stroma, uterine serosa (implants), bilateral mesosalpinx and left fallopian tube. Focal lymphovascular invasion. Endometriosis of right fallopian tube serosa. Negative ovaries. Negative parametrial/paracervical margins. 2. Left posterior pelvis, biopsy: Metastatic carcinoma.08/14/2025 2:47 PM [facility] at 1447 ESTGross Description1. Received [...] 1 minute Total fixation time: 27 hours (18,ns,[id number], m8.1) 2. Received in formalin labeled ANDERSON, left posterior pelvis biopsy is pink-lambert feathery and friable soft tissue admixed with hemorrhagic material, 2.5 x 2.5 x 1.2 cm in aggregate. The specimen is submitted entirely in cassettes A- C. (3,ns,[id number], m8.1) .08/14/2025 2:47 PM [facility]ORATORYSynoptic ChecklistENDOMETRIUM ENDOMETRIUM - All Specimens [...] (no nodes submitted or found)08/14/2025 2:47 PM [facility]ORATORYEmbedded Klwmyz2408/14/2025 2:47 PM [facility]ORATORYSpecimen (Source)Anatomical Location / LateralityCollection Method / VolumeCollection TimeReceived TimeTissue (Uterus, Fallopian Tube, Ovary)08/07/2025 3:42 PM EST08/07/2025 4:47 PM ESTComment:Pre-op diagnosis: ENDOMETRIAL CANCERTissue specimen (specimen)Pelvic region / Pjkcdsl0908/07/2025 3:43 PM EST08/07/2025 4:47 PM ESTComment:Pre-op diagnosis: ENDOMETRIAL CANCER Narrative Authorizing ProviderResult TypeResult Carli Monson MDPATHOLOGY/CYTOLOGY ORDERABLESFinal ResultPerforming OrganizationAddressCity/State/ZIP CodePhone Number [facility] [address] [place] [id number], * Transfuse RBC:1 Unit (08/07/2025 2:56 PM EST) Narrative Authorizing ProviderResult TypeResult StatusAleia K Catherine MDBLOOD TRANSFUSION ORDERABLESFinal Result * Transfuse RBC:1 Unit (08/07/2025 2:56 PM EST) Narrative Authorizing ProviderResult TypeResult StatusAleia K Catherine MDBLOOD TRANSFUSION ORDERABLESFinal Result * Cytology non-gynecologic (08/07/2025 2:44 PM EST)ComponentValueRef RangeTest MethodAnalysis TimePerformed AtPathologist SignatureCase ReportMedical Cytology Report ? Case: [id number] ? Authorizing Provider: ??Dennis Monson MD ?Collected: ? 08/07/2025 1444 ? Ordering Location: ? [facility] ??Received: ?08/07/2025 1501 ? - Surgery ? Pathologist: ? Darryl Alcantara MD ? Specimen: ?Pelvis, Pelvis fluid ? 08/14/2025 2:58 PM [facility]ORYFinal DiagnosisPelvic fluid: Positive for Carcinoma, rare cells.08/14/2025 2:58 PM [facility] at 1458 ESTGross DescriptionReceived was 20ml of red fluid unfixed, labeled as Anderson, pelvis . CytoLyt added in lab. Specimen placed in formalin at 17:00 and had a total fixation time of 8 hours. 08/14/2025 2:58 PM [facility]ATORYEmbedded Images 08/14/2025 2:58 PM [facility]ORATORYSpecimen (Source) Anatomical Location / LateralityCollection Method / VolumeCollection Time Received TimeFluidPelvic region / Dulshvq8608/07/2025 2:44 PM EST08/07/2025 3:01 PM ESTComment:Pre-op diagnosis: ENDOMETRIAL CANCER Narrative Authorizing ProviderResult TypeResult StatusAdam Raven Monson MDPATHOLOGY/CYTOLOGY ORDERABLESFinal ResultPerforming OrganizationAddressCity/State/ZIP CodePhone Number [facility] [address] [place] [address], * (ABNORMAL) Comprehensive metabolic panel (08/07/2025 5:40 AM EST)Component ValueRef RangeTest MethodAnalysis TimePerformed AtPathologist SignatureSODIUM [id number] - 146 mmol/L110/07/2024 6:42 AM [facility] POTASSIUM3.2(L)3.5 - 5.0 mmol/L110/07/2024 6:42 AM [facility] FYTWTNLFJGCWPJCUCD962(H)98 - 109 mmol/L110/07/2024 6:42 AM [facility] LABORATORYCARBON VLYNHQZ2810 - 32 mmol/L110/07/2024 6:42 AM [facility] LABORATORYANION GAP85 - 15 mmol/L110/07/2024 6:42 AM EST [facility] LABORATORYBLOOD UREA NDBDFGXO686 - 27 mg/dL08/07/2025 6:42 AM [facility] LABORATORYCREATININE0.670.40 - 1.00 mg/dL 08/07/2025 6:42 AM [facility]ORATORYComment:METHOD TRACEABLE TO IDCA PXXDTNZQLTTLOUS136(H)65 - 99 mg/dL08/07/2025 6:42 AM EST [facility] LABORATORYCALCIUM8.0(L)8.5 - 10.5 mg/dL08/07/2025 6:42 AM [facility] LABORATORYTOTAL PROTEIN5.6(L)6.0 - 8.0 g/dL08/07/2025 6:42 AM [facility] LABORATORYALBUMIN3.0(L)3.2 - 5.3 g/dL08/07/2025 6:42 AM [facility] LABORATORYALKALINE RLIIBZLCYWR6171 - 130 U/L110/07/2024 6:42 AM [facility] XJDNJGPWSWJIS09<=41 U/L11/07/2025 6:42 AM [facility] LABORATORYALT4<=31 U/L110/07/2024 6:42 AM [facility] LABORATORYBILIRUBIN,TOTAL0.70.3 - 1.2 mg/dL08/07/2025 6:42 AM [facility]ORYEGFR Non-Race Dependent>90>=60 ml/min/1.73sq.m 08/07/2025 6:42 AM [facility]ORATORYComment: Reported eGFR is based on the CKD-EPI 2020 equation that does not use a race coefficient. Specimen (Source)Anatomical Location / LateralityCollection Method / Volume Collection TimeReceived TimeBloodVenous blood / UnknownVenipuncture / Unknown 08/07/2025 5:40 AM EST08/07/2025 6:04 AM EST Narrative Authorizing ProviderResult TypeResult StatusHala Magdaleno PASCUAL BLOOD ORDERABLESFinal ResultPerforming OrganizationAddressCity/State/ZIP CodePhone Number [facility] [address] [place] [address], * (ABNORMAL) CBC auto differential (08/07/2025 5:40 AM EST)ComponentValueRef RangeTest MethodAnalysis TimePerformed AtPathologist UsxtdkbplKNR01.4(H)4 - 11 X10^9/L110/07/2024 6:49 AM [facility] LABORATORYRBC Count2.87 (L)3.8 - 5.2 X10^12/L110/07/2024 6:49 AM [facility] Hemoglobin8.3(L)11.7 - 15.5 g/dL08/07/2025 6:49 AM [facility] TWYJPBUTCYSjjzgkzqyo23.3(L)35 - 47 %08/07/2025 6:49 AM [facility] XWZGOGKNYHDOW6191 - 100 fL08/07/2025 6:49 AM [facility] OXUWBYPCHFLIY77.027 - 34 pg08/07/2025 6:49 AM [facility] TIPAZZVULQMCEU61.932 - 36 g/dL08/07/2025 6:49 AM [facility] ZRIWEXXLKPGBO86.1(H)11.5 - 15 %08/07/2025 6:49 AM [facility] LABORATORYPlatelet Fpatj564406 - 450 X10^9/L110/07/2024 6:49 AM [facility] LABORATORYMPV7.87 - 12 fL08/07/2025 6:49 AM [facility] LABORATORYBands %1%08/07/2025 6:49 AM [facility]ORATORYComment:This is an appended report. These results have been appended to a previously preliminary verified report.Neutrophils %84% 08/07/2025 6:49 AM [facility]ORATORYComment:This is an appended report. These results have been appended to a previously preliminary verified report.Lymphocytes %9%08/07/2025 6:49 AM [facility]ORATORYComment:This is an appended report. These results have been appended to a previously preliminary verified report.Monocytes %5%08/07/2025 6:49 AM [facility]ORATORYComment:This is an appended report. These results have been appended to a previously preliminary verified report. Eosinophils %1%08/07/2025 6:49 AM [facility] Comment:This is an appended report. These results have been appended to a previously preliminary verified report.Neutrophils Absolute (M)15.6(H)1.5 - 6.6 X10^9/L110/07/2024 6:49 AM [facility]ATORYComment: This is an appended report. These results have been appended to a previously preliminary verified report.Lymphocytes Absolute1.71.0 - 3.5 X10^9/L110/07/2024 6:49 AM [facility]ATORYComment:This is an appended report. These results have been appended to a previously preliminary verified report.Monocytes Absolute0.90.0 - 0.9 X10^9/L110/07/2024 6:49 AM [facility]ATORYComment:This is an appended report. These results have been appended to a previously preliminary verified report.Eosinophils Absolute0.20.0 - 0.4 X10^9/L110/07/2024 6:49 AM [facility]ATORYComment:This is an appended report. These results have been appended to a previously preliminary verified report.Polychromasia1+08/07/2025 6:49 AM [facility]ATORYComment:This is an appended report. These results have been appended to a previously preliminary verified report. Differential TypeMANUAL DPOCYIUFCBXI27/11/2025 6:49 AM [facility]ORATORYComment:This is an appended report. These results have been appended to a previously preliminary verified report.Specimen (Source) Anatomical Location / LateralityCollection Method / VolumeCollection Time Received TimeBloodVenous blood / UnknownVenipuncture / Fbszwtd9508/07/2025 5:40 AM EST08/07/2025 6:04 AM EST Narrative Authorizing ProviderResult TypeResult StatusBrittnee Sam MDME[facility] BLOOD ORDERABLESFinal ResultPerforming OrganizationAddressCity/State/ZIP CodePhone Number [facility] [address] [place] [address], * Crossmatch RBC:Number of Units: 1 (08/06/2025 6:37 AM EST)Specimen (Source) Anatomical Location / LateralityCollection Method / VolumeCollection Time Received TimeBloodVenous blood / Tlycatr4908/06/2025 6:37 AM EST Narrative Authorizing ProviderResult TypeResult StatusAnnita Still [facility] PRODUCT ORDERABLESFinal ResultPerforming OrganizationAddressCity/State/ZIP CodePhone Number [facility] * (ABNORMAL) Comprehensive metabolic panel (08/06/2025 6:23 AM EST)Component ValueRef RangeTest MethodAnalysis TimePerformed AtPathologist SignatureSODIUM [id number] - 146 mmol/L110/06/2024 7:33 AM [facility] POTASSIUM3.63.5 - 5.0 mmol/L110/06/2024 7:33 AM [facility] NCZCQWOXRIUYRGARBS472(H)98 - 109 mmol/L110/06/2024 7:33 AM [facility] LABORATORYCARBON QJPRQEB04(L)22 - 32 mmol/L110/06/2024 7:33 AM [facility] LABORATORYANION ZGL374 - 15 mmol/L110/06/2024 7:33 AM [facility] LABORATORYBLOOD UREA FDJRMMJV471 - 27 mg/dL08/06/2025 7:33 AM [facility] LABORATORYCREATININE0.680.40 - 1.00 mg/dL 08/06/2025 7:33 AM [facility]ORATORYComment:METHOD TRACEABLE TO IDMS OOKHJPPKQEZDPLA240(H)65 - 99 mg/dL08/06/2025 7:33 AM [facility] LABORATORYCALCIUM8.1(L)8.5 - 10.5 mg/dL08/06/2025 7:33 AM [facility] LABORATORYTOTAL PROTEIN5.6(L)6.0 - 8.0 g/dL08/06/2025 7:33 AM [facility] LABORATORYALBUMIN3.23.2 - 5.3 g/dL08/06/2025 7:33 AM [facility] LABORATORYALKALINE SHZSKRTPBML5842 - 130 U/L110/06/2024 7:33 AM [facility] JZNXXZMQJKJBA96<=41 U/L110/06/2024 7:33 AM [facility]ORATORYALT5<=31 U/L110/06/2024 7:33 AM [facility] LABORATORYBILIRUBIN,TOTAL0.70.3 - 1.2 mg/dL08/06/2025 7:33 AM [facility]ORYEGFR Non-Race Dependent>90>=60 ml/min/1.73sq.m 08/06/2025 7:33 AM [facility]ORATORYComment: Reported eGFR is based on the CKD-EPI 2020 equation that does not use a race coefficient. Specimen (Source)Anatomical Location / LateralityCollection Method / Volume Collection TimeReceived TimeBloodVenous blood / UnknownVenipuncture / Unknown 08/06/2025 6:23 AM EST08/06/2025 7:03 AM EST Narrative Authorizing ProviderResult TypeResult StatusHala Magdaleno PASCUAL BLOOD ORDERABLESFinal ResultPerforming OrganizationAddressCity/State/ZIP CodePhone Number [facility] [address] [place] [address], * (ABNORMAL) CBC auto differential (08/06/2025 6:23 AM EST)ComponentValueRef RangeTest MethodAnalysis TimePerformed AtPathologist EdejccqahPHT44.4(H)4 - 11 X10^9/L110/06/2024 8:07 AM [facility] LABORATORYRBC Count2.87 (L)3.8 - 5.2 X10^12/L110/06/2024 8:07 AM [facility] Hemoglobin8.3(L)11.7 - 15.5 g/dL08/06/2025 8:07 AM [facility] CTWEKBMGHPZvtiufzmhp64.4(L)35 - 47 %08/06/2025 8:07 AM [facility] TMDZWIVQTKSCH4699 - 100 fL08/06/2025 8:07 AM [facility] JBMHZWEPPVWGF95.027 - 34 pg08/06/2025 8:07 AM [facility] TXQAHWFUNNUIUA84.832 - 36 g/dL08/06/2025 8:07 AM [facility] FDUAWQMHYGZXH89.2(H)11.5 - 15 %08/06/2025 8:07 AM [facility] LABORATORYPlatelet Izrjh120369 - 450 X10^9/L110/06/2024 8:07 AM EST [facility] LABORATORYMPV8.27 - 12 fL08/06/2025 8:07 AM [facility]ORATORYNeutrophils %78%08/06/2025 8:07 AM [facility]ORATORYComment:This is an appended report. These results have been appended to a previously preliminary verified report.Lymphocytes %16 %08/06/2025 8:07 AM [facility]ATORYComment:This is an appended report. These results have been appended to a previously preliminary verified report.Monocytes %5%08/06/2025 8:07 AM [facility]ATORYComment:This is an appended report. These results have been appended to a previously preliminary verified report.Eosinophils %1%08/06/2025 8:07 AM [facility]ORATORYComment:This is an appended report. These results have been appended to a previously preliminary verified report. Neutrophils Absolute (M)16.7(H)1.5 - 6.6 X10^9/L110/06/2024 8:07 AM [facility]ATORYComment:This is an appended report. These results have been appended to a previously preliminary verified report.Lymphocytes Absolute3.41.0 - 3.5 X10^9/L110/06/2024 8:07 AM [facility]ORATORYComment:This is an appended report. These results have been appended to a previously preliminary verified report.Monocytes Absolute1.1(H)0.0 - 0.9 X10^9/L110/06/2024 8:07 AM [facility]ORATORYComment:This is an appended report. These results have been appended to a previously preliminary verified report.Eosinophils Absolute0.20.0 - 0.4 X10^9/L110/06/2024 8:07 AM [facility]ATORYComment:This is an appended report. These results have been appended to a previously preliminary verified report.Polychromasia1+08/06/2025 8:07 AM [facility]ORATORYComment:This is an appended report. These results have been appended to a previously preliminary verified report.Differential TypeMANUAL WCLIPIQNCXLA86/10/2025 8:07 AM [facility]ORATORYComment: This is an appended report. These results have been appended to a previously preliminary verified report.Specimen (Source)Anatomical Location / Laterality Collection Method / VolumeCollection TimeReceived TimeBloodVenous blood / UnknownVenipuncture / Vgzikpp5008/06/2025 6:23 AM EST08/06/2025 7:03 AM EST Narrative Authorizing ProviderResult TypeResult StatusHala Magdaleno Sam [facility] BLOOD ORDERABLESFinal ResultPerforming OrganizationAddressCity/State/ZIP CodePhone Number [facility] [address] [place] [address], * (ABNORMAL) Comprehensive metabolic panel (08/05/2025 8:11 PM EST)Component ValueRef RangeTest MethodAnalysis TimePerformed AtPathologist SignatureSODIUM [id number] - 146 mmol/L110/05/2024 8:57 PM [facility] POTASSIUM3.3(L)3.5 - 5.0 mmol/L110/05/2024 8:57 PM [facility] ZWGQQRHGJGHGCSAFBH544(H)98 - 109 mmol/L110/05/2024 8:57 PM [facility] LABORATORYCARBON IKACMCH63(L)22 - 32 mmol/L110/05/2024 8:57 PM [facility] LABORATORYANION GAP75 - 15 mmol/L110/05/2024 8:57 PM EST [facility] LABORATORYBLOOD UREA VUGGIPLN741 - 27 mg/dL08/05/2025 8:57 PM [facility] LABORATORYCREATININE0.680.40 - 1.00 mg/dL 08/05/2025 8:57 PM [facility]ORATORYComment:METHOD TRACEABLE TO IDCA EIPYRFHOETBTRXV868(H)65 - 99 mg/dL08/05/2025 8:57 PM EST [facility] LABORATORYCALCIUM8.0(L)8.5 - 10.5 mg/dL08/05/2025 8:57 PM [facility] LABORATORYTOTAL PROTEIN5.4(L)6.0 - 8.0 g/dL08/05/2025 8:57 PM [facility] LABORATORYALBUMIN3.0(L)3.2 - 5.3 g/dL08/05/2025 8:57 PM [facility] LABORATORYALKALINE BXZMJWTUXZY9417 - 130 U/L110/05/2024 8:57 PM [facility] WCLNNXUVCXJVB17<=41 U/L110/05/2024 8:57 PM [facility] LABORATORYALT5<=31 U/L110/05/2024 8:57 PM [facility] LABORATORYBILIRUBIN,TOTAL0.60.3 - 1.2 mg/dL08/05/2025 8:57 PM [facility]ORYEGFR Non-Race Dependent>90>=60 ml/min/1.73sq.m 08/05/2025 8:57 PM [facility]ORATORYComment: Reported eGFR is based on the CKD-EPI 2020 equation that does not use a race coefficient. Specimen (Source)Anatomical Location / LateralityCollection Method / Volume Collection TimeReceived TimeBloodVenous blood / UnknownVenipuncture / Unknown 08/05/2025 8:11 PM EST08/05/2025 8:30 PM EST Narrative Authorizing ProviderResult TypeResult StatusHala Magdaleno PASCUAL BLOOD ORDERABLESFinal ResultPerforming OrganizationAddressCity/State/ZIP CodePhone Number [facility] [address] [place] [address], * CT chest with contrast (08/05/2025 12:11 [...] 08/06/2025 7:20 AM Authorizing ProviderResult TypeResult StatusAlexandria Lasmethodist hospital of southern californiaa [facility] ORDERABLESFinal Result * (ABNORMAL) CBC auto differential (08/05/2025 4:02 AM EST)ComponentValueRef RangeTest MethodAnalysis TimePerformed AtPathologist WeomvknasXWD24.8(H)4 - 11 X10^9/L110/05/2024 6:43 AM [facility] LABORATORYRBC Count2.76 (L)3.8 - 5.2 X10^12/L110/05/2024 6:43 AM [facility] Hemoglobin8.0(L)11.7 - 15.5 g/dL08/05/2025 6:43 AM [facility] IWAUNPEVEDDryzqeqjvr17.4(L)35 - 47 %08/05/2025 6:43 AM [facility] HHJDUETMSEZEY8846 - 100 fL08/05/2025 6:43 AM [facility] TAWWJHIVDKYCN73.127 - 34 pg08/05/2025 6:43 AM [facility] ZBPAAAOHZXZWCF90.032 - 36 g/dL08/05/2025 6:43 AM [facility] TGLZRUNHODREV04.8(H)11.5 - 15 %08/05/2025 6:43 AM [facility] LABORATORYPlatelet Hsree373121 - 450 X10^9/L110/05/2024 6:43 AM [facility] LABORATORYMPV8.17 - 12 fL08/05/2025 6:43 AM [facility] LABORATORYNeutrophils %84.1%08/05/2025 6:43 AM [facility]ORATORYComment:This is an appended report. These results have been appended to a previously preliminary verified report.Lymphocytes % 10.6%08/05/2025 6:43 AM [facility]ORATORYComment:This is an appended report. These results have been appended to a previously preliminary verified report.Monocytes %5.1%08/05/2025 6:43 AM [facility]ORATORYComment:This is an appended report. These results have been appended to a previously preliminary verified report.Eosinophils % 0.0%08/05/2025 6:43 AM [facility]ORATORYComment:This is an appended report. These results have been appended to a previously preliminary verified report.Basophils %0.2%08/05/2025 6:43 AM [facility]ORATORYComment:This is an appended report. These results have been appended to a previously preliminary verified report.Neutrophils Absolute (A)16.6(H)1.5 - 6.6 X10^9/L110/05/2024 6:43 AM [facility]ORATORYComment:This is an appended report. These results have been appended to a previously preliminary verified report.Lymphocytes Absolute2.1 1.0 - 3.5 X10^9/L110/05/2024 6:43 AM [facility] Comment:This is an appended report. These results have been appended to a previously preliminary verified report.Monocytes Absolute1.0(H)0.0 - 0.9 X10^9/L110/05/2024 6:43 AM [facility]ORATORYComment:This is an appended report. These results have been appended to a previously preliminary verified report.Eosinophils Absolute0.00.0 - 0.4 X10^9/L110/05/2024 6:43 AM [facility]ORATORYComment:This is an appended report. These results have been appended to a previously preliminary verified report.Basophils Absolute0.00.0 - 0.2 X10^9/L110/05/2024 6:43 AM [facility]ORATORYComment:This is an appended report. These results have been appended to a previously preliminary verified report.Differential TypeAUTOMATED UKRPQJLNXOTF12/09/2025 6:43 AM [facility] LABORATORYComment:This is an appended report. These results have been appended to a previously preliminary verified report.Specimen (Source)Anatomical Location / LateralityCollection Method / VolumeCollection TimeReceived Time BloodVenous blood / UnknownVenipuncture / Yjdxhzn7708/05/2025 4:02 AM EST 08/05/2025 4:20 AM EST Narrative Authorizing ProviderResult TypeResult StatusKassidy Rejent MDLAB BLOOD ORDERABLESFinal ResultPerforming OrganizationAddressCity/State/ZIP CodePhone Number [facility] [address] [place] [address], * (ABNORMAL) Comprehensive metabolic panel (08/05/2025 4:02 AM EST)Component ValueRef RangeTest MethodAnalysis TimePerformed AtPathologist SignatureSODIUM 309132 - 146 mmol/L110/05/2024 4:52 AM [facility] POTASSIUM3.53.5 - 5.0 mmol/L110/05/2024 4:52 AM [facility] SKZUKNRQGSWCEEKECN734(H)98 - 109 mmol/L110/05/2024 4:52 AM [facility] LABORATORYCARBON WTZLVOJ03(L)22 - 32 mmol/L110/05/2024 4:52 AM [facility] LABORATORYANION GAP75 - 15 mmol/L110/05/2024 4:52 AM [facility] LABORATORYBLOOD UREA SYVJRKAI541 - 27 mg/dL08/05/2025 4:52 AM [facility] LABORATORYCREATININE0.690.40 - 1.00 mg/dL 08/05/2025 4:52 AM [facility] LABORATORYComment:METHOD TRACEABLE TO IDCA PAGVDFTSFZKKPXO474(H)65 - 99 mg/dL08/05/2025 4:52 AM [facility] LABORATORYCALCIUM8.0(L)8.5 - 10.5 mg/dL08/05/2025 4:52 AM [facility] LABORATORYTOTAL PROTEIN5.2(L)6.0 - 8.0 g/dL08/05/2025 4:52 AM [facility] LABORATORYALBUMIN3.0(L)3.2 - 5.3 g/dL08/05/2025 4:52 AM [facility] LABORATORYALKALINE ENVLHOZUVBX3196 - 130 U/L110/05/2024 4:52 AM [facility] SNFSBBSQNDWXE61<=41 U/L110/05/2024 4:52 AM [facility] LABORATORYALT5<=31 U/L110/05/2024 4:52 AM [facility] LABORATORYBILIRUBIN,TOTAL0.70.3 - 1.2 mg/dL08/05/2025 4:52 AM [facility] LABORATORYEGFR Non-Race Dependent>90>=60 ml/min/1.73sq.m 08/05/2025 4:52 AM [facility]ORATORYComment: Reported eGFR is based on the CKD-EPI 2020 equation that does not use a race coefficient. Specimen (Source)Anatomical Location / LateralityCollection Method / Volume Collection TimeReceived TimeBloodVenous blood / UnknownVenipuncture / Unknown 08/05/2025 4:02 AM EST08/05/2025 4:20 AM EST Narrative Authorizing ProviderResult TypeResult StatusKassidy Rejent MDLAB BLOOD ORDERABLESFinal ResultPerforming OrganizationAddressCity/State/ZIP CodePhone Number [facility] [address] [place] [phone], * Transfuse RBC:2 Units (08/04/2025 9:09 PM EST) Narrative Authorizing ProviderResult TypeResult StatusKassidy Rejent MDBLOOD TRANSFUSION ORDERABLESFinal Result * Transfuse RBC:2 Units (08/04/2025 9:09 PM EST) Narrative Authorizing ProviderResult TypeResult StatusKassidy Rejent MDBLOOD TRANSFUSION ORDERABLESFinal Result * (ABNORMAL) CBC auto differential (08/04/2025 12:18 PM EST)ComponentValueRef RangeTest MethodAnalysis TimePerformed AtPathologist GytctwdvwNER99.4(H)4 - 11 X10^9/L110/04/2024 2:03 PM [facility]ORYRBC Count3.12 (L)3.8 - 5.2 X10^12/L110/04/2024 2:03 PM [facility] Hemoglobin9.1(L)11.7 - 15.5 g/dL08/04/2025 2:03 PM [facility] VKAZWOJCSTUerfxtivbd65.6(L)35 - 47 %08/04/2025 2:03 PM [facility] XETFMEAJTLSEN2728 - 100 fL08/04/2025 2:03 PM [facility] NHSUAMNZXYEJA12.027 - 34 pg08/04/2025 2:03 PM [facility] BPKORQSAFSBXJJ34.832 - 36 g/dL08/04/2025 2:03 PM [facility] HNNOELNPIRAIN22.8(H)11.5 - 15 %08/04/2025 2:03 PM [facility] LABORATORYPlatelet Igbhq524779 - 450 X10^9/L110/04/2024 2:03 PM [facility]ORATORYMPV8.37 - 12 fL08/04/2025 2:03 PM [facility] LABORATORYNeutrophils %88.9%08/04/2025 2:03 PM [facility]ATORYComment:This is an appended report. These results have been appended to a previously preliminary verified report.Lymphocytes % 8.7%08/04/2025 2:03 PM [facility]ORYComment:This is an appended report. These results have been appended to a previously preliminary verified report.Monocytes %1.7%08/04/2025 2:03 PM [facility]ORYComment:This is an appended report. These results have been appended to a previously preliminary verified report.Eosinophils % 0.4%08/04/2025 2:03 PM [facility]ORYComment:This is an appended report. These results have been appended to a previously preliminary verified report.Basophils %0.3%08/04/2025 2:03 PM [facility]ORYComment:This is an appended report. These results have been appended to a previously preliminary verified report.Neutrophils Absolute (A)12.8(H)1.5 - 6.6 X10^9/L110/04/2024 2:03 PM [facility]ORYComment:This is an appended report. These results have been appended to a previously preliminary verified report.Lymphocytes Absolute1.2 1.0 - 3.5 X10^9/L110/04/2024 2:03 PM [facility] Comment:This is an appended report. These results have been appended to a previously preliminary verified report.Monocytes Absolute0.20.0 - 0.9 X10^9/L 08/04/2025 2:03 PM [facility]ORYComment:This is an appended report. These results have been appended to a previously preliminary verified report.Eosinophils Absolute0.10.0 - 0.4 X10^9/L110/04/2024 2:03 PM [facility]ORYComment:This is an appended report. These results have been appended to a previously preliminary verified report. Basophils Absolute0.00.0 - 0.2 X10^9/L110/04/2024 2:03 PM [facility]ORYComment:This is an appended report. These results have been appended to a previously preliminary verified report.Elliptocytes1+08/04/2025 2:03 PM [facility]ORYComment:This is an appended report. These results have been appended to a previously preliminary verified report.Differential TypeAUTOMATED BQITXFCWDYDH02/08/2025 2:03 PM [facility]ATORYComment:This is an appended report. These results have been appended to a previously preliminary verified report.Specimen (Source)Anatomical Location / LateralityCollection Method / VolumeCollection TimeReceived TimeBloodVenous blood / UnknownVenipuncture / Vdqxohz9208/04/2025 12:18 PM EST08/04/2025 12:27 PM EST Narrative Authorizing ProviderResult TypeResult StatusAlexandria Lasalla DOLAB BLOOD ORDERABLESFinal ResultPerforming OrganizationAddressCity/State/ZIP CodePhone Number [facility] [address] [place] [address], * Transfuse RBC:2 Units (08/04/2025 10:00 AM [...] AM EST)ComponentValueRef RangeTest Method Analysis TimePerformed AtPathologist EakkjndcxQSJW57/08/2025 8:26 AM ESTTTH BB - WINAEQDQTNofkksgp76/08/2025 8:26 AM ESTTTH BB - WELLSKYSpecimen (Source) Anatomical Location / LateralityCollection Method / VolumeCollection Time Received TimeBloodVenous blood / UnknownVenipuncture / Buigruo4608/04/2025 7:41 AM EST08/04/2025 8:14 AM EST Narrative Authorizing ProviderResult TypeResult StatusAleia K Catherine MDBLOOD BANK TEST ORDERABLESFinal ResultPerforming OrganizationAddressCity/State/ZIP CodePhone Number [facility] BB - [place] [address] [place] [address], * Crossmatch RBC:Number of Units: 2 (08/04/2025 5:30 AM EST)ComponentValueRef RangeTest MethodAnalysis TimePerformed AtPathologist SignatureBlood component [id number] BANK - WELLSKYUnit [id number] BANK - [place] Unit ABOOBLOOD BANK - WELLSKYUnit RHNEGBLOOD BANK - WELLSKYCrossmatch CompatibleBLOOD BANK - WELLSKYStatus of unitTRANSFUSEDBLOOD BANK - WELLSKY Expiration [id number] BANK - WELLSKYBB Type [id number] BANK - WELLSKYBlood component [id number] BANK - WELLSKYUnit number [id number] BANK - WELLSKYUnit ABOOBLOOD BANK - WELLSKYUnit RHNEG BLOOD BANK - WELLSKYCrossmatchCompatibleBLOOD BANK - WELLSKYStatus of unit TRANSFUSEDBLOOD BANK - WELLSKYExpiration [id number] BANK - [place]LL[place] BB Type [id number] BANK - WELLSKYSpecimen (Source)Anatomical Location / LateralityCollection Method / VolumeCollection TimeReceived TimeBlood 08/04/2025 5:30 AM EST08/04/2025 5:47 AM EST Narrative Authorizing ProviderResult TypeResult StatusKassidy Rejent MDBLOOD BANK PRODUCT ORDERABLESEdited Result - FinalPerforming OrganizationAddressCity/State/ZIP Code Phone Number [facility] - [place] * Fibrinogen (08/04/2025 5:30 AM EST)ComponentValueRef RangeTest MethodAnalysis TimePerformed AtPathologist WlxrlwiaxKCRDGTFUKE731132 - 480 mg/dL08/04/2025 6:07 AM [facility] LABORATORYSpecimen (Source)Anatomical Location / LateralityCollection Method / VolumeCollection TimeReceived Time BloodVenous blood / UnknownVenipuncture / Rrianxr0908/04/2025 5:30 AM EST 08/04/2025 5:42 AM EST Narrative Authorizing ProviderResult TypeResult StatusKassidnolan Still MDLAB BLOOD ORDERABLESFinal ResultPerforming OrganizationAddressCity/State/ZIP CodePhone Number [facility] [address] [place] [address], * (ABNORMAL) APTT (08/04/2025 5:30 AM EST)ComponentValueRef RangeTest Method Analysis TimePerformed AtPathologist BcleickaxXLEP82(L)26 - 37 sec08/04/2025 6:07 AM [facility] LABORATORYSpecimen (Source)Anatomical Location / LateralityCollection Method / VolumeCollection TimeReceived Time BloodVenous blood / UnknownVenipuncture / Rgwavfm8608/04/2025 5:30 AM EST 08/04/2025 5:42 AM EST Narrative Authorizing ProviderResult TypeResult StatusMicssidnolan Still MDLAB BLOOD ORDERABLESFinal ResultPerforming OrganizationAddressCity/State/ZIP CodePhone Number [facility] [address] [place] [address], [place] [phone] * Protime & INR (08/04/2025 5:30 AM EST)ComponentValueRef RangeTest Method Analysis TimePerformed AtPathologist PipccsxkgVQUFRFX09.89.8 - 13.2 sec 08/04/2025 6:07 AM [facility] LABORATORYINR1.00.9 - 1.2 08/04/2025 6:07 AM [facility] LABORATORYSpecimen (Source) Anatomical Location / LateralityCollection Method / VolumeCollection Time Received TimeBloodVenous blood / UnknownVenipuncture / Pepgxgr5808/04/2025 5:30 AM EST08/04/2025 5:42 AM EST Narrative Authorizing ProviderResult TypeResult StatusKassidy Cheko MDLAB BLOOD ORDERABLESFinal ResultPerforming OrganizationAddressCity/State/ZIP CodePhone Number [facility] [address] [place] [address], * Type and screen (08/04/2025 5:30 AM EST)ComponentValueRef RangeTest Method Analysis TimePerformed AtPathologist NhdavpvasJIGU92/08/2025 8:20 AM ESTTTH RAJI - PKPNNIDEQLgsrvwjg98/08/2025 8:20 AM ESTTTH BB - JOELAntibody Screen Gptxcmgc15/08/2025 8:20 AM ESTTTH BB - JANETKYSpecimen (Source)Anatomical Location / LateralityCollection Method / VolumeCollection TimeReceived Time BloodVenous blood / UnknownVenipuncture / Imkwqfj4508/04/2025 5:30 AM EST 08/04/2025 5:46 AM EST Narrative Authorizing ProviderResult TypeResult StatusKassidy Rejent MDBLOOD BANK TEST ORDERABLESEdited Result - FinalPerforming OrganizationAddressCity/State/ZIP Code Phone Number [facility] RAJI MALDONADO [address] [place] [address], * (ABNORMAL) CBC auto differential (08/04/2025 5:30 AM EST)ComponentValueRef RangeTest MethodAnalysis TimePerformed AtPathologist AhdnagzbvUIX25.7(H)4 - 11 X10^9/L110/04/2024 7:43 AM [facility] LABORATORYRBC Count2.10 (L)3.8 - 5.2 X10^12/L110/04/2024 7:43 AM [facility] Hemoglobin5.8(LL)11.7 - 15.5 g/dL08/04/2025 7:43 AM [facility] KRBCVKZDNHQchfdvnxry93.0(L)35 - 47 %08/04/2025 7:43 AM [facility] MBZVGPZJJMLJS6860 - 100 fL08/04/2025 7:43 AM [facility] RCHIBDGMLDQPK76.727 - 34 pg08/04/2025 7:43 AM [facility] PJOLMIGPBUSTZV47.532 - 36 g/dL08/04/2025 7:43 AM [facility] GQERTKYBVYTLP46.3(H)11.5 - 15 %08/04/2025 7:43 AM [facility] LABORATORYPlatelet Ltrao912628 - 450 X10^9/L110/04/2024 7:43 AM [facility] LABORATORYMPV8.37 - 12 fL08/04/2025 7:43 AM [facility] LABORATORYNeutrophils %82%08/04/2025 7:43 AM [facility]ORATORYComment:This is an appended report. These results have been appended to a previously preliminary verified report. Lymphocytes %16%08/04/2025 7:43 AM [facility] Comment:This is an appended report. These results have been appended to a previously preliminary verified report.Monocytes %2%08/04/2025 7:43 AM [facility]ORYComment:This is an appended report. These results have been appended to a previously preliminary verified report. Neutrophils Absolute (M)11.2(H)1.5 - 6.6 X10^9/L110/04/2024 7:43 AM [facility]ORYComment:This is an appended report. These results have been appended to a previously preliminary verified report.Lymphocytes Absolute2.21.0 - 3.5 X10^9/L110/04/2024 7:43 AM [facility]ORYComment:This is an appended report. These results have been appended to a previously preliminary verified report.Monocytes Absolute0.30.0 - 0.9 X10^9/L110/04/2024 7:43 AM [facility]ORYComment:This is an appended report. These results have been appended to a previously preliminary verified report.Elliptocytes1+08/04/2025 7:43 AM [facility]ATORYComment:This is an appended report. These results have been appended to a previously preliminary verified report.Differential TypeMANUAL SBDBUCYNBOYA27/08/2025 7:43 AM [facility]ATORYComment:This is an appended report. These results have been appended to a previously preliminary verified report.Specimen (Source)Anatomical Location / LateralityCollection Method / VolumeCollection TimeReceived Time BloodVenous blood / UnknownVenipuncture / Qjjyweo7008/04/2025 5:30 AM EST 08/04/2025 5:42 AM EST Narrative Authorizing ProviderResult TypeResult StatusKassidy Cheko PASCUAL BLOOD ORDERABLESFinal ResultPerforming OrganizationAddressCity/State/ZIP CodePhone Number [facility] [address] [place] [address], * (ABNORMAL) Comprehensive metabolic panel (08/04/2025 5:30 AM EST)Component ValueRef RangeTest MethodAnalysis TimePerformed AtPathologist SignatureSODIUM 410320 - 146 mmol/L110/04/2024 6:15 AM [facility] POTASSIUM3.63.5 - 5.0 mmol/L110/04/2024 6:15 AM [facility] CZGKRFGLWTQIBBOSOD061(H)98 - 109 mmol/L110/04/2024 6:15 AM [facility] LABORATORYCARBON BURUFEY27(L)22 - 32 mmol/L110/04/2024 6:15 AM [facility] LABORATORYANION GAP95 - 15 mmol/L110/04/2024 6:15 AM [facility] LABORATORYBLOOD UREA OTUYWGJW133 - 27 mg/dL08/04/2025 6:15 AM [facility] LABORATORYCREATININE0.600.40 - 1.00 mg/dL 08/04/2025 6:15 AM [facility]ORATORYComment:METHOD TRACEABLE TO IDCA YMNOMWDTCWIAJNN812(H)65 - 99 mg/dL08/04/2025 6:15 AM [facility] LABORATORYCALCIUM7.8(L)8.5 - 10.5 mg/dL08/04/2025 6:15 AM [facility]ORATORYTOTAL PROTEIN5.4(L)6.0 - 8.0 g/dL08/04/2025 6:15 AM [facility] LABORATORYALBUMIN3.1(L)3.2 - 5.3 g/dL08/04/2025 6:15 AM [facility] LABORATORYALKALINE KZPFOQFDXVT6732 - 130 U/L110/04/2024 6:15 AM [facility] MBYMIFXOCTBBH18<=41 U/L110/04/2024 6:15 AM [facility] LABORATORYALT5<=31 U/L110/04/2024 6:15 AM [facility] LABORATORYBILIRUBIN,TOTAL0.30.3 - 1.2 mg/dL08/04/2025 6:15 AM [facility]ORYEGFR Non-Race Dependent>90>=60 ml/min/1.73sq.m 08/04/2025 6:15 AM [facility]ORATORYComment: Reported eGFR is based on the CKD-EPI 2020 equation that does not use a race coefficient. Specimen (Source)Anatomical Location / LateralityCollection Method / Volume Collection TimeReceived TimeBloodVenous blood / UnknownVenipuncture / Unknown 08/04/2025 5:30 AM EST08/04/2025 5:42 AM EST Narrative Authorizing ProviderResult TypeResult StatusKassidy Rejent [facility] BLOOD ORDERABLESFinal ResultPerforming OrganizationAddressCity/State/ZIP CodePhone Number [facility] [address] [place] [address], [place] [phone] documented in this encounter Visit Diagnoses Not [...] 08/05/25 at 1621 Given08/09/2025 9:44 AM EST1,000 hpKvsgn5808/06/2025 7:58 AM EST1,000 mg bisacodyL (DULCOLAX) suppository [...] First dose on [place] 08/09/25 at 1030 Indications:GfnpskVqhmo87/13/2025 12:05 PM EST20 mg glucagon HCL injection [...] Administration: IV Push Given08/09/2025 4:27 PM EST8 tbSzaoo1008/09/2025 4:53 AM EST8 ywQupda0808/08/2025 7:41 PM EST8 mg oxyCODONE (ROXICODONE) immediate [...] use. Immediate release. Given08/09/2025 4:53 AM EST5 giUhvrh3308/08/2025 7:41 PM EST5 riVskrf9808/08/2025 2:49 PM EST5 mg potassium chloride (K-TAB,KLOR-CON) [...] 1 hour. New Bag08/06/2025 2:09 AM EST10 yRk163 mL/hrNew Bag08/06/2025 12:57 AM EST10 mEq 100 mL/hrNew Bag08/05/2025 11:45 PM EST10 kWn208 mL/hr prochlorperazine (COMPAZINE) injection 5 mg 5 mg, intravenous, Every 8 hours PRN, nausea, vomiting, Starting on Wed08/05/25 at 2106, When administered via IV Push, do not exceed 5 mg per minute Given08/07/2025 2:14 AM EST5 ibRcjci9708/06/2025 7:59 AM EST5 xxYrxaw9008/05/2025 9:15 PM EST5 mg senna (SENOKOT) tablet 8.6 mg 8.6 mg, oral, 2 times daily, First dose on Wed08/08/25 at 0900 Given08/09/2025 9:43 AM EST8.6 ytUfchx9208/08/2025 9:27 PM EST8.6 mgGiven 08/08/2025 9:31 AM EST8.6 mg simethicone (MYLICON) chewable tablet 80 mg 80 mg, oral, 4 times daily PRN, flatulence, Starting on 08/05/25 at 1939 08/08/2025 12:43 PM EST80 uhEzysv6208/05/2025 8:55 PM EST80 mg sodium chloride 0.9 [...] Wed08/04/25 at 0900 Given08/09/2025 9:47 AM EST3 cWScfhk2608/08/2025 9:27 PM EST3 aIWfuzq4408/08/2025 9:31 AM EST3 mL sodium chloride 0.9 [...] Starting on Wed08/04/25 at 1031 sodium chloride 0.9% (NS) irrigation bottle As needed, Starting on Wed08/04/25 at 1002, Intra-op Given08/04/2025 10:02 AM EST1,000 mLOperative Site timolol (TIMOPTIC) 0.5 % ophthalmic solution 1 drop 1 drop, both eyes, 2 times daily, First dose on 08/04/25 at 1400 Given08/09/2025 9:47 AM EST1 dpaiKdrez74/12/2025 9:28 PM EST1 dropGiven 08/08/2025 9:31 AM [...] 1030 * 1205 (Given - Provider: Akiko R Melissa, RN) gabapentin (NEURONTIN) tablet 600 mg (COMPLETED) [...] * 1239 (Stop Bag - Provider: Amber Parker, JORDYN) * 1552 (Stop Bag - Provider: Amber [...] (NOV Unhold - Provider: User Epic) * 2013 (Given - Provider: Joana Ibarra, RN) * [...] after initial treatment, repeat treatment. * 1134 ([facility] Hold - Provider: User Epic - Reason: Patient not available) * 1744 ([facility] Unhold - Provider: User Epic) dextrose (GLUTOSE) 40 % gel 15 g 15 g, oral, As needed, low blood sugar, blood glucose less than 70 mg/dL, Starting on 08/04/25 at 1031, If patient conscious and taking PO. If blood glucose is not greater than 70 mg/dL after initial treatment, repeat treatment. * 1134 ([facility] Hold - Provider: User Epic - Reason: Patient not available) * 1744 ([facility] Unhold - Provider: User Epic) dextrose 5 [...] after initial treatment, repeat treatment. * 1134 ([facility] Hold - Provider: User Epic - Reason: Patient not available) * 1744 ([facility] Unhold - Provider: User Epic) dextrose 5 [...] after initial treatment, repeat treatment. * 1134 ([facility] - Provider: User Epic - Reason: Patient not available) * 1744 ([facility] Unhold - Provider: User Epic) dextrose 50 [...] VESICANT (RED) Warning: HYPERTONIC solution. * 1134 ([facility] Hold - Provider: User Epic - Reason: Patient not available) * 1744 ([facility] Unhold - Provider: User Epic) dextrose 50 [...] VESICANT (RED) Warning: HYPERTONIC solution. * 1134 ([facility] Hold - Provider: User Epic - Reason: Patient not available) * 1744 ([facility] Unhold - Provider: User Epic) fentaNYL (SUBLIMAZE) [...] after initial treatment, repeat treatment. * 1134 ([facility] Hold - Provider: User Epic - Reason: Patient not available) * 1744 ([facility] Unhold - Provider: User Epic) glucagon HCL [...] after initial treatment, repeat treatment. * 1134 ([facility] Hold - Provider: User Epic - Reason: Patient not available) * 1744 ([facility] Unhold - Provider: User Epic) HYDROmorphone (DILAUDID) injection 0.5 mg 0.5 mg, intravenous, Every 4 hours PRN, severe pain - pain scale 7-10, breakthrough pain, Starting on 08/04/25 at 1033, If IV push, administer over over 2 to 3 minutes. Look-alike/sound-alike medication - verify indication for use. * 1134 ([facility] Hold - Provider: User Epic - Reason: Patient not available) * 1744 ([facility] Unhold - Provider: User Epic) HYDROmorphone (PF) (DILAUDID) injection 0.5 mg 0.5 mg, intravenous, Every 4 hours PRN, severe pain - pain scale 7-10, breakthrough, give chava first, Starting on 08/04/25 at 0618, If IV push, administer over over 2 to 3 minutes. Look-alike/sound-alike medication - verify indication for use. * 1134 ([facility] Hold - Provider: User Epic - Reason: Patient not available) * 1744 ([facility] Unhold - Provider: User Epic) lidocaine PF (XYLOCAINE) 10 mg/mL (1 %) injection 1 mg (CANCELED) 1 mg (0.1 mL), intradermal, As needed, times 1 per IV attempt for IV start pain control, Starting on Wed08/07/25 at 1238, Pre-op * 1340 (Given - Provider: EDIN Inman) lidocaine-EPINEPHrine (XYLOCAINE W/EPI) 1 %-1:115944 injection (CANCELED) As needed, Starting on Wed08/07/25 at 1611, Intra-op * 1611 (Given - Provider: Dennis Monson MD) ondansetron (PF) (ZOFRAN) injection 8 mg 8 mg, intravenous, Every 8 hours PRN, nausea, vomiting, Starting on Wed08/06/25 at 1145, Intravenous administration preferred to be given over 2-5 minutes., Intravenous Specific Administration: IV Push * 0837 (Given - Provider: Amber Parker RN) * 1134 ([facility] Hold - Provider: User Epic - Reason: Patient not available) * 1744 ([facility] Unhold - Provider: User Epic) * 1941 [...] - Provider: Amber Parker RN) * 1134 ([facility] Hold - Provider: User Epic - Reason: Patient not available) * 1744 ([facility] Unhold - Provider: User Epic) * 1755 [...] * 0829 (Given - Provider: Amber Parker, RN) * 1134 ([facility] Hold - Provider: User Epic - Reason: Patient not available) * 1744 ([facility] Unhold - Provider: User Epic) * 1755 [...] Do not crush or chew. * 1134 ([facility] Hold - Provider: User Epic - Reason: Patient not available) * 1744 ([facility] Unhold - Provider: User Epic) potassium chloride [...] policy and monitor potassium levels * 1134 ([facility] Hold - Provider: User Epic - Reason: Patient not available) * 1744 ([facility] Unhold - Provider: User Epic) potassium chloride [...] a minimum of 1 hour. * 1134 ([facility] Hold - Provider: User Epic - Reason: Patient not available) * 1744 ([facility] Unhold - Provider: User Epic) prochlorperazine (COMPAZINE) injection 5 mg 5 mg, intravenous, Every 8 hours PRN, nausea, vomiting, Starting on 08/05/25 at 2106, When administered via IV Push, do not exceed 5 mg per minute * 0214 (Given - Provider: Akiko Weller RN) * 1134 ([facility] Hold - Provider: User Epic - Reason: Patient not available) * 1744 ([facility] Unhold - Provider: User Epic) simethicone (MYLICON) chewable tablet 80 mg 80 mg, oral, 4 times daily PRN, flatulence, Starting on 08/05/25 at 1939 * 1134 ([facility] Hold - Provider: User Epic - Reason: Patient not available) * 1744 ([facility] Unhold - Provider: User Epic) * 1243 (Given - Provider: Amber Parker RN) sodium chloride 0.9 % flush 10 mL 10 mL, intravenous, As needed, line care, Starting on 08/05/25 at 1158 * 1134 ([facility] Hold - Provider: User Epic - Reason: Patient not available) * 1744 ([facility] Unhold - Provider: User Epic) sodium chloride 0.9 % flush 3 mL 3 mL, intravenous, As needed, line care, before and after each intermittent use, Starting on Wed08/04/25 at 0336 * 1134 ([facility] Hold - Provider: User Epic - Reason: Patient not available) * 1744 ([facility] Unhold - Provider: User Epic) sodium chloride 0.9 % flush bag 25 mL, intravenous, at 100 mL/hr, Administer over 15 Minutes, As needed, line care, line care afterIVPB administration, Starting on 08/04/25 at 0336 * 1134 ([facility] Hold - Provider: User Epic - Reason: Patient not available) * 1744 ([facility] Unhold - Provider: User Epic) sodium chloride 0.9 % flush bag 25 mL, intravenous, at 100 mL/hr, Administer over 15 Minutes, As needed, line care, line care afterIVPB administration, Starting on 08/04/25 at 1031 * 1134 ([facility] Hold - Provider: User Epic - Reason: Patient not available) * 1744 ([facility] Unhold - Provider: User Epic) Order Group [...]
--- OUTSIDE RECORDS SUMMARY | 2025-08-04 09:37 | XMS_ITS | Encounter Summary ---
Author Organization [facility] tem Address [id number] [address] [place] [address] Care Team Providers Care Gastroenterology Physician Name Role Phone Unavailable Primary Care Provider Unavailabl e Reason for Visit * Auth/Cert (Routine)SpecialtyDiagnoses / ProceduresReferred By ContactReferred To Contact Diagnoses Pelvic mass Vagina bleeding Vaginal bleeding pelvic mass/vaginal bleeding Rocio Alexander MD [facility] [facility], [address] [place] [address] Phone: tel: fax: Referral IDStatusReasonStart DateExpiration DateVisits RequestedVisits [id number] Encounter Details DateTypeDepartmentCare Team (Latest Contact Info)Jkraidnpiye44/08/2025 9:37 AM ESTAnesthesia Event [facility] - Surgery [address] [place] [phone] Franklin Ramos MD [address] [place] [address] Keren Umana APRN-[address] [place], [place] [id number] Anesthesia Record Procedure NameResponsible AnesthesiologistAnesthesia Start TimeAnesthesia Stop TimeDILATION CURETTAGE (Vagina )Franklin Ramos MD08/04/25 68908008/04/25 1032 PxhfKdczKvpuyWxtwdaf36/08/[id number] Ehxxo9265Ji Start Ring8877Vx Induction The patient was reevaluated immediately before moderate or deep sedation use and before anesthesia induction.0948An Wxyndhrwpv5607Loqqhuj Ready for Loxnyyn0097 Fvvkgiyh6026Ta Gpoksvqogl1712ui stop twky8992Pqzodmelv/Transfer From the TA8958 Handoff to RNTransported to:PACU, Spontaneous Ventilation, O2 per Simple face mask, 100% FiO2 Pt. Tolerated procedure well, vital signs stable and document on nursing record Care transferred to receiving YD1537Gu Stop* NameTotalpropofol (DIPRIVAN) ilrlcicam292 mgrocuronium (ZEMURON) 50 mg/5 mL htvkbaeym44 mg lidocaine PF (XYLOCAINE) local injection 1%50 mgdexAMETHasone (DECADRON) injection 4 mg/mL4 mgfentaNYL (SUBLIMAZE) oyhyrxgsf017 mcgondansetron PF (ZOFRAN) 2 mg/mL injection4 mgsugammadex (BRIDION) gvbbmtslu315 mg phenylephrine (COLTEN-SYNEPHRINE) ijmmqwj250 mcglactated ringers auzihcfy512 mL * Agents Name Isoflurane Inspired Isoflurane * YojhEjsnhLHTP331 mL TypeDetailsPlacementRemovalPeripheral IVPlacement Date: 08/04/25; Placement Time: 329; Existing LDA Placed by: Other Facility; Orientation: Posterior, Left; Location: Hand; Removal Date: 08/07/25; Removal Time: 329 by Katie Marcano RN08/07/251952 by Joana Ibarra [facility] IVPlacement Date: 08/04/25; Placement Time: 945; Catheter Size: 18 G; Orientation: Left; Location: Forearm; Technique: Ultrasound guidance; Inserted by: rayshawn; Insertion Attempts: 1; Patient Tolerance: Tolerated well; Removal Date: 08/05/25; Removal Time: 09 by Leonor Todd APRN-BHARTI08/05/25 1800 by Melissa Galarza RNETTPlacement Date: 08/04/25; Placement Time: 947 (created via procedure documentation); Mask Ventilation: Ventilated by mask; Type: Cuffed, Inflated; Tube Size: 6.5 mm; Laryngoscope: Other (Comment) (wild argueta); Blade Size: 3; Location: Oral; Grade View: 1; Insertion Attempts: 1; Placement Verification: Auscultation, End tidal CO2, Symmetrical chest wall movement; Airway Comment: DL grade III view, used VL and downsized ETT ; Removal Date: 08/04/25; Removal Time: 0948 by BELLE Ferguson 08/04/25 1023 by BELLE FergusonUrethral CatheterPlacement Date: 08/04/25; Placement Time: 1006; Inserted by: PAMELA; Type: Double-lumen; Size: 14 Fr.; Balloon Size: 10 mL; Urine Returned: Yes; Removal Date: 08/05/25; Removal Time: 1006 by Hazel Simon RN08/05/25 1700 by Melissa Galarza RN documented in this encounter Social History Tobacco UseTypesPacks/DayYears UsedDateSmoking Tobacco: NeverSmokeless Tobacco: NeverAlcohol UseStandard Drinks/WeekCommentsNever0 (1 standard drink = 0.6 oz pure alcohol)PHQ-2AnswerDate RecordedTotal Vecyd53710/04/2024UDIT-CAnswerDate RecordedQ1: How often do you have a drink containing alcohol?Never08/04/2025Q2: How many drinks containing alcohol do you have on a typical day when you are drinking?Patient does not drink08/04/2025Q3: How often do you [...] RecordedIn the past 12 months has the [employer], gas, oil, or water [employer] threatened to shut off services in your home?08/04/2025Housing InstabilityAnswerDate RecordedAre you worried or concerned that in the next two months you may not have stable housing that you own, rent or stay in as a part of a household?No08/04/2025Hunger ScreeningAnswerDate RecordedWithin the past 12 months we worried whether our food would run out before we got money to buy more.Never True08/05/2025Within the past 12 months the food we bought just didn't last and we didn't have money to get more.Never True08/05/2025CommentsNoSex and Gender Information ValueDate RecordedSex Assigned at BirthNot on fileLegal QljHjrecu65/08/2025 12:05 AM ESTGender IdentityNot on fileSexual OrientationNot on filedocumented as of this encounter OR Notes * Anesthesia Postprocedure Evaluation - Franklin Ramos MD - 08/04/2025 10:32 AM EST ANESTHESIA POST-EVALUATION [facility] Procedure Summary Date: 08/04/25 Room / Location: [facility] OR [address] [place] [address] SURGERY Anesthesia Start: 936 Anesthesia Stop: Procedure: DILATION CURETTAGE (Vagina ) Diagnosis: (vaginal bleed) Surgeons: Rocio Alexander MD Responsible Provider: Franklin Ramos MD Anesthesia Type: general endotracheal ASA Status: 3 - Emergent Vitals: 08/04/25 1130 BP: 107/59 Pulse: 59 Resp: 18 Temp: 36.3 ??C (97.3 ??F) SpO2: 97% Patient Evaluated: PACU Patient Participation: Complete - patient participated Patient Level of Consciousness: Awake Pain Score: 4 Pain Management: Adequate Airway Patency: Patent Anesthetic Complications: No Cardiovascular Status: Hemodynamically Stable and Returned to baseline Respiratory Status: Stable/Baseline, Nonlabored Ventilation and Room Air Post-op Hydration: Euvolemic Final Anesthesia Type: general endotracheal Does patient meet criteria to D/C from PACU?: Yes Is patient sedated pharmacologically at PACU D/C?: No No notable events documented. * Anesthesia Procedure Notes - LeonorBELLE Whalen - 08/04/2025 10:01 AM ESTAssociated Order(s): Airway Airway Patient location during procedure: OR Urgency: Elective Date/Time: 08/04/2025 9:48 AM Airway not difficult IV In Situ: Peripheral General Information and Staff Service Provider: Franklin Ramos MD ONLINE RETAILER: BELLE Ferguson Placed by: BELLE Ferguson Patient Identified, IV Checked, Risks and Benefits Discussed, Surgical Consent, Monitors and Equipment Checked, Pre-op Evaluation and Timeout Performed Fire Risk Assessment Score: 0 Consent for Emergent Airway (if performed for an anesthetic, see related documentation for consents) Risks and benefits: risks, benefits and alternatives were discussed Indications and Patient Condition Sedation level: Deep Preoxygenated: yesPatient position: Sniffing and Supine MILS maintained throughout Mask difficulty assessment: Vent By Mask Indications for airway management: Anesthesia and Airway Protection Complications: No Complicating Factors: No Final Airway Details Final airway type: ETT Endotracheal airway: Cuffed, Inflated and ETT - Single Lumen Techniques used for successful ETT Placement: With Stylet and Video Laryngoscopy Cormack-Lehane Classification: Grade I Endotracheal tube insertion site: Oral Bite Block Placed Dentition Check Pre: See Pre-Evaluaton documentation Post Intubation Trauma? No Visibility: Cords Clear Blade: Other (esparza) Blade size: #3 Placement verified by: chest auscultation, capnography and symmetrical chest wall movement ETT size: 6.5 mm Cuff volume (mL): 5 Measured from: Lips Secured at (cm): 21 Number of other approaches attempted: 2 Ventilation between attempts: BVM Number of attempts at approach: 1 Other AttemptsUnsuccessful attempted airways: Endotracheal Tube Unsuccessful attempted endotracheal techniques: Direct Laryngoscopy Additional Comments DL grade III view, used VL and downsized ETT * Anesthesia Preprocedure Evaluation - Franklin Ramos MD - 08/04/2025 8:31 AM EST Images from the original note were not included. ANESTHESIA PRE-PROCEDURE EVALUATION [facility] Procedure(s): HYSTEROSCOPY DILATION CURETTAGE ANESTHESIA PHYSICAL EXAM Patient summary reviewed and nursing notes reviewed. 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 I called blood bank at about 0815 and they will have blood available for her shortly. She requires 1U PRBC transfused and 2nd unit started in pre-op prior to going to the OR.Vitals currently stable per below and vaginal bleeding has slowed, giving us time to prioritize heroxygen carrying capacity prior to surgery.) Induction: Intravenous Specialty Monitors: 2nd IV Airway Management: Endotracheal and Direct Laryngoscopy Post op Pain Management: IV Analgesics PONV Plan: Intended use of opioids Post-op Transfer Plan: Transfer to PACU Anesthetic risks, plan and alternatives discussed with Patient. Use of blood products discussed with Patient who consented to blood products. Plan discussed with ONLINE RETAILER. NPO Status: Date of last liquid: 08/04/25 Time of last liquid: 0200 Date of last solid: 08/03/25 Time of last solid: 1800 No past medical history on file. No past surgical history on file. Allergies Allergen Reactions Latex Hives and Facial Swelling Dye Dermatitis Social History Tobacco Use Smoking Status Not on file Smokeless Tobacco Not on file Alcohol Use: Not on file Scheduled Meds: [Transfer Hold] sodium chloride, 3 mL, intravenous, Q12H ION sodium chloride, 3 mL, intravenous, Q12H ION Infusion Meds: [Transfer Hold] dextrose 5 % in water, 100 mL/hr lactated ringer's, 100 mL/hr [Transfer Hold] sodium chloride 0.9 %, 20 mL/hr [Transfer Hold] sodium chloride 0.9 %, 20 mL/hr [Transfer Hold] sodium chloride 0.9 %, 20 mL/hr PRN Meds: [Transfer Hold] acetaminophen [Transfer Hold] dextrose [Transfer Hold] dextrose 5 % in water [Transfer Hold] dextrose 50 % in water (D50W) [Transfer Hold] glucagon (human recombinant) [Transfer Hold] HYDROmorphone lidocaine PF midazolam [Transfer Hold] oxyCODONE [Transfer Hold] sodium chloride sodium chloride [Transfer Hold] sodium chloride [Transfer Hold] sodium chloride 0.9 % [Transfer Hold] sodium chloride 0.9 % [Transfer Hold] sodium chloride 0.9 % Vitals: BP 128/66 Pulse 73 Temp 36.8 ??C (98.2 ??F) (Skin) Resp 12 Ht 157.5 cm (5' 2 ) Wt 75.2 kg(165 lb 12.6 oz) LMP (LMP Unknown) SpO2 100% BMI 30.32 kg/m?? Labs: Results from last 7 days Lab Units 08/04/25 0530 WBC X10^9/L 13.7* HEMOGLOBIN g/dL 5.8* HEMATOCRIT % 18.0* PLATELETS X10^9/L 282 Results from last 7 days Lab Units 08/04/25 0530 SODIUM mmol/L 144 POTASSIUM mmol/L 3.6 CHLORIDE mmol/L 115* CO2 mmol/L 20* BUN mg/dL 18 CREATININE mg/dL 0.60 CALCIUM mg/dL 7.8* ALBUMIN g/dL 3.1* AST U/L 12 ALT U/L 5 BILIRUBIN, TOTAL mg/dL 0.3 Results from last 7 days Lab Units 08/04/25 0530 INR 1.0 Risk Factors: PONV: Intermediate Risk Total Score: 2 Score Rules Female patient Intended opioid administration Criteria that do not apply: Non-smoker History of PONV and/or Motion Sickness RCRI: Low Risk: Score of 0 = 3.9% (2.8-5.4%) Risk of major cardiac event Score of 1 = 6.0% (4.9-7.4%) Risk of major cardiac event Total Score: 0 Score Rules Criteria that do not apply: Cerebrovascular Disease Ischemic Heart Disease Congestive Heart Failure Elevated Risk Surgery Pre-operative Treatment with Insulin Pre-operative Creatinine >2 mg/dL / 176.8 mol/L documented in this encounter Plan of Treatment DateTypeDepartmentCare Team (Latest Contact Info)Tyeyrjcogmi45/24/2025 11:30 AM ESTHospital Encounter [facility] - Surgery [address] [place] [phone] Justin Mackey MD [address] [place] [phone] 08/20/2025 11:30 AM EST - 08/20/2025 12:30 PM ESTSurgery [facility] - [facility] [address] [place] [phone] Justin Mackey MD [address] [place] [phone] INSERTION PORT A CATH [40438 (CPT??)]08/21/2025 8:00 AM ESTInfusion Paola [place] - Medical Oncology [address] [place] [phone] 08/21/2025 11:00 AM ESTOffice Visit Paola Ell[facility] - Medical Oncology [address] [place] [phone] Melinda Coffey PA [address] [place] [address] [address] [place] [address] 09/10/2025 11:00 AM ESTInfusion Paola [place] [facility] - Medical Oncology [address] [place] [phone] 09/10/2025 1:30 PM ESTOffice Visit [facility], A Department of [address] [place] [phone] Annita Patton, [employer]AT [employer]-RESOURCE MANAGER [employer] [address] [facility] [place] [address] 09/11/2025 8:00 AM ESTInfusion Pal[place] [facility] - Medical Oncology [address] [place] [phone] NamePriorityAssociated DiagnosesDate/TimeINSERTION PORT A CATH needed for chemotherapy 08/20/2025 11:30 AM ESTdocumented as of this encounter Procedures Procedure NamePriorityDate/TimeAssociated DiagnosisCommentsPR AN ELECTIVE ENDOTRACHEAL OSUOGXCncmtdf48/08/2025 9:48 AM EST documented in this encounter Results * MA AN ELECTIVE ENDOTRACHEAL AIRWAY (08/04/2025 9:48 AM EST) Leonor Cornell APRN-CRNA - 08/04/2025 9:48 AM EST BELLE Ferguson 08/04/2025 10:02 AM Airway Patient location during procedure: OR Urgency: Elective Date/Time: 08/04/2025 9:48 AM Airway not difficult IV In Situ: Peripheral General Information and Staff Service Provider: Franklin Ramos MD ONLINE RETAILER: BELLE Ferguson Placed by: ??BELLE Ferguson Patient Identified, IV Checked, Risks and Benefits Discussed, Surgical Consent, Monitors and Equipment Checked, Pre-op Evaluation and Timeout Performed Fire Risk Assessment Score: 0 Consent for Emergent Airway (if performed for an anesthetic, see related documentation for consents) Risks and benefits: risks, benefits and alternatives were discussed Indications and Patient Condition Sedation level: Deep Preoxygenated: yesPatient position: Sniffing and Supine MILS maintained throughout Mask difficulty assessment: Vent By Mask Indications for airway management: Anesthesia and Airway Protection Complications: No Complicating Factors: No Final Airway Details Final airway type: ETT Endotracheal airway: Cuffed, Inflated and ETT - Single Lumen Techniques used for successful ETT Placement: With Stylet and Video Laryngoscopy Cormack-Lehane Classification: Grade I Endotracheal tube insertion site: Oral Bite Block Placed Dentition Check Pre: See Pre-Evaluaton documentation Post Intubation Trauma? No Visibility: ??Cords Clear Blade: Other (esparza) Blade size: #3 Placement verified by: chest auscultation, capnography and symmetrical chest wall movement ETT size: 6.5 mm Cuff volume (mL): 5 Measured from: Lips Secured at (cm): 21 Number of other approaches attempted: 2 Ventilation between attempts: BVM Number of attempts at approach: 1 Other AttemptsUnsuccessful attempted airways: Endotracheal Tube Unsuccessful attempted endotracheal techniques: Direct Laryngoscopy Additional Comments DL grade III view, used VL and downsized ETT Authorizing ProviderResult TypeResult Cherelle Ramos MDANESTHESIA ORDERABLESFinal Result documented in this encounter Visit Diagnoses Not on filedocumented in this encounter Administered Medications Medication OrderMAR ActionAction DateDoseRateSite dexAMETHasone (DECADRON) injection intravenous, As needed, Starting on 08/04/25 at 0950, Anesthesia Intra-op Given08/04/2025 9:50 AM EST4 mg fentaNYL (SUBLIMAZE) injection intravenous, As needed, Starting on 08/04/25 at 0943, Anesthesia Intra-op Given08/04/2025 10:26 AM EST50 yqaDdgqt79/08/2025 9:43 AM EST50 mcg lactated ringers infusion intravenous, Continuous PRN, Starting on 08/04/25 at 0937, Anesthesia Intra-op New Bag08/04/2025 9:37 AM EST lidocaine PF (XYLOCAINE) 10 mg/mL (1 %) injection intravenous, As needed, Starting on 08/04/25 at 0943, Anesthesia Intra-op Given08/04/2025 9:43 AM EST50 mg ondansetron (PF) (ZOFRAN) injection intravenous, As needed, Starting on 08/04/25 at 1015, Anesthesia Intra-op Given08/04/2025 10:15 AM EST4 mg phenylephrine HCl in 0.9% NaCl 1 mg/10 mL (100 mcg/mL) syringe intravenous, As needed, Starting on 08/04/25 at 0959, Anesthesia Intra-op Given08/04/2025 10:10 AM YMD069 dksWmzqs46/08/2025 10:04 AM IKL795 mcgGiven 08/04/2025 9:59 AM JEK047 mcg propofoL (DIPRIVAN) infusion intravenous, As needed, Starting on 08/04/25 at 0943, Anesthesia Intra-op Given08/04/2025 9:43 AM IXJ976 mg rocuronium (ZEMURON) injection intravenous, As needed, Starting on 08/04/25 at 0943, Anesthesia Intra-op Given08/04/2025 9:43 AM EST50 mg sugammadex (BRIDION) injection intravenous, As needed, Starting on 08/04/25 at 1015, Anesthesia Intra-op Given08/04/2025 10:15 AM VKC066 mg Transfuse RBC:2 Units Routine, On 08/04/25 at 0928, Transfusion Indications: Hgb less than 7 g/dL, Ordering physician has personally discussed alternatives to this procedure: Yes, Has consent been obtained and has the consent form been signed? Yes, Transfuse at 120 mL/hour times 15 minutes THEN if no evidence of transfusion reaction increase rate to: 125 mL/hr, Check hemoglobin 1 hour immediately after each packed RBC unit transfused. Notify physician if Hgb is greater than 7g/dL prior to starting subsequent unit(s) Lab Results Component Value Date HGB 5.8 (LL) 08/04/2025 New Bag08/04/2025 10:00 AM ESTdocumented in this encounter Additional Health Concerns AssessmentNoted TimePHQ-9 Depression Total Score: 3:45 PM EST documented as of this encounter
--- OUTSIDE RECORDS SUMMARY | 2025-08-04 09:37 | XMS_ITS | Encounter Summary ---
Author Organization [facility] tem Address [id number] [address] [place] [address] Care Team Providers Care Salvage Repairer Name Role Phone Unavailable Primary Care Provider Unavailabl e Reason for Visit * Auth/Cert (Routine)SpecialtyDiagnoses / ProceduresReferred By ContactReferred To Contact Diagnoses Pelvic mass Vagina bleeding Vaginal bleeding pelvic mass/vaginal bleeding Rocio Alexander MD [facility] [facility], [address] [place] [address] Phone: tel: fax: Referral IDStatusReasonStart DateExpiration DateVisits RequestedVisits [id number] Encounter Details DateTypeDepartmentCare Team (Latest Contact Info)Gdztoiqjphw01/08/2025 9:37 AM ESTAnesthesia Event [facility] [place] - Surgery [address] [facility] [place] [phone] Franklin Ramos MD [address] [place] [address] Keren Umana APRN-[address] [place], [place] [id number] Anesthesia Record Procedure NameResponsible AnesthesiologistAnesthesia Start TimeAnesthesia Stop TimeDILATION CURETTAGE (Vagina )Franklin Ramos MD08/04/25 66347908/04/25 1032 LwivLltlCyompZbrynpv48/08/298227324092Ye Lecel8424Pn Start Yjif9450Hl Induction The patient was reevaluated immediately before moderate or deep sedation use and before anesthesia induction.0948An Pgqmwqfgsm8058Mnnibek Ready for Aidtynb6022 Ksaqfavs1577Te Crzplwgdos8352ce stop isop6284Wozbrtzne/Transfer From the GM7824 Handoff to RNTransported to:PACU, Spontaneous Ventilation, O2 per Simple face mask, 100% FiO2 Pt. Tolerated procedure well, vital signs stable and document on nursing record Care transferred to receiving VR9044Rp Stop* NameTotalpropofol (DIPRIVAN) dyvwsadog433 mgrocuronium (ZEMURON) 50 mg/5 mL rvkwxbupl88 mg lidocaine PF (XYLOCAINE) local injection 1%50 mgdexAMETHasone (DECADRON) injection 4 mg/mL4 mgfentaNYL (SUBLIMAZE) xopqpgzeb483 mcgondansetron PF (ZOFRAN) 2 mg/mL injection4 mgsugammadex (BRIDION) uzcjjctkj175 mg phenylephrine (COLTEN-SYNEPHRINE) ectsijx590 mcglactated ringers bevvodhg853 mL * Agents Name Isoflurane Inspired Isoflurane * FqpfQzfcwOLDA936 mL TypeDetailsPlacementRemovalPeripheral IVPlacement Date: 08/04/25; Placement Time: 329; Existing LDA Placed by: Other Facility; Orientation: Posterior, Left; Location: Hand; Removal Date: 08/07/25; Removal Time: 329 by Katie Marcano RN08/07/251952 by Joana Ibarra [facility] IVPlacement Date: 08/04/25; Placement Time: 945; Catheter [...] drink = 0.6 oz pure alcohol)PHQ-2AnswerDate RecordedTotal Dehlm82210/04/2024UDIT-CAnswerDate RecordedQ1: How often do you have a [...] RecordedIn the past 12 months has the [employer], gas, oil, or water [employer] threatened to shut off services in your [...] ValueDate RecordedSex Assigned at BirthNot on fileLegal BobDqrzop88/08/2025 12:05 AM ESTGender IdentityNot on fileSexual OrientationNot on filedocumented as of this encounter OR Notes * Anesthesia Postprocedure Evaluation - Franklin Ramos MD - 08/04/2025 10:32 AM EST ANESTHESIA POST-EVALUATION [facility] Procedure Summary Date: 08/04/25 Room / Location: [facility] OR [address] [place] [address] SURGERY Anesthesia Start: 936 Anesthesia Stop: Procedure: [...] and Staff Service Provider: Franklin Ramos MD RUBBER COMPOUNDER FORMULATOR: BELLE Ferguson Placed by: BELLE Ferguson Patient [...] note were not included. ANESTHESIA PRE-PROCEDURE EVALUATION [facility] Procedure(s): HYSTEROSCOPY DILATION CURETTAGE ANESTHESIA PHYSICAL EXAM Patient summary reviewed and nursing notes reviewed. 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 Plan discussed with RUBBER COMPOUNDER FORMULATOR. NPO Status: Date of last liquid: 08/04/25 [...] Plan of Treatment DateTypeDepartmentCare Team (Latest Contact Info)Eniuolgwqxk96/24/2025Hospital Encounter [facility] - Surgery [address] [place] [address] Justin Mackey MD [address] [place] [phone] 08/21/2025 8:00 AM ESTInfusion [facility] - Medical Oncology [address] [place] [phone] 08/21/2025 11:00 AM ESTOffice Visit [facility] - Medical Oncology [address] [place] [address], [place] [phone] Melinda Coffey PA [address] [facility] [address] [place] [address] 09/10/2025 11:00 AM ESTInfusion [facility] - Medical Oncology [address] [place] [phone] 09/10/2025 1:30 PM ESTOffice Visit [facility] Gy[facility] Oncology, A Department of [address] [place] [phone] Annita Patton, [employer]KE D[employer]ER-[employer] MIXER HELPER [address] [place] [address], [address] [place] [address] 09/11/2025 8:00 AM ESTInfusion [facility] - Medical Oncology [address] [place] [phone] NamePriorityAssociated DiagnosesDate/TimeINSERTION PORT A CATH needed for chemotherapy documented as of this encounter Procedures Procedure NamePriorityDate/TimeAssociated DiagnosisCommentsPR AN ELECTIVE ENDOTRACHEAL EQINQWHdmhiuw17/08/2025 9:48 AM EST documented in this encounter Results * PA AN ELECTIVE ENDOTRACHEAL AIRWAY (08/04/2025 9:48 AM EST) Narrative WyLeonor carvajal APRN-CRNA - 08/04/2025 9:48 AM EST BELLE Ferguson 08/04/2025 10:02 AM Airway Patient location during procedure: OR Urgency: Elective Date/Time: 08/04/2025 9:48 AM Airway not difficult IV In Situ: Peripheral General Information and Staff Service Provider: Franklin Ramos MD RUBBER COMPOUNDER FORMULATOR: BELLE Ferguson Placed by: ??BELLE Ferguson Patient [...] VL and downsized ETT Authorizing ProviderResult TypeResult StatusEdeulogio Ramos MDANESTHESIA ORDERABLESFinal Result documented in this encounter Visit Diagnoses Not on filedocumented in this encounter Administered Medications Medication OrderMAR ActionAction DateDoseRateSite dexAMETHasone (DECADRON) injection intravenous, As needed, Starting on 08/04/25 at 0950, Anesthesia Intra-op Given08/04/2025 9:50 AM EST4 mg fentaNYL (SUBLIMAZE) injection intravenous, As needed, Starting on 08/04/25 at 0943, Anesthesia Intra-op Given08/04/2025 10:26 AM EST50 taoKkjqn13/08/2025 9:43 AM EST50 mcg lactated ringers infusion [...] at 0959, Anesthesia Intra-op Given08/04/2025 10:10 AM WZX107 roxCnvgn25/08/2025 10:04 AM QWF812 mcgGiven 08/04/2025 9:59 AM KCP252 mcg propofoL (DIPRIVAN) infusion intravenous, As needed, Starting on 08/04/25 at 0943, Anesthesia Intra-op Given08/04/2025 9:43 AM OWX926 mg rocuronium (ZEMURON) injection intravenous, As needed, Starting on 08/04/25 at 0943, Anesthesia Intra-op Given08/04/2025 9:43 AM EST50 mg sugammadex (BRIDION) injection intravenous, As needed, Starting on 08/04/25 at 1015, Anesthesia Intra-op Given08/04/2025 10:15 AM ITN678 mg Transfuse RBC:2 Units Routine, On 08/04/25 [...]
--- OUTSIDE RECORDS SUMMARY | 2025-08-07 12:30 | XMS_ITS | Encounter Summary ---
Author Organization [facility] tem Address [facility] [facility] [id number] [address] [place] [address] Care Team Providers Care Marketing Producer Name Role Phone Ann Marie Sidhu MD Primary Care Provider [phone] Reason for Visit * Auth/Cert (Routine)SpecialtyDiagnoses / ProceduresReferred By ContactReferred To Contact Diagnoses Pelvic mass Vagina bleeding Vaginal bleeding pelvic mass/vaginal bleeding Dustin Santiago MD [address] [facility] [place] [address] Phone: tel: fax: Referral IDStatusReasonStart DateExpiration DateVisits RequestedVisits [id number] Encounter Details DateTypeDepartmentCare Team (Latest Contact Info)Rldrpnmnncd28/11/2025 12:30 PM EST - 08/07/2025 3:00 PM ESTSurgery [facility] [address] [place] [id number] Dennis Monson MD [address] [facility] [place] [address] DAVINCI HYSTERECTOMY SALPINGO OOPHORECTOMY/RADICAL INTRAPERITONEAL TUMOR DEBULKING Surgery Details Date/TimeStatusLocationORServicePatient ClassCase ClassCase TypeTrauma Case? 08/07/2025 12:30 PMPostedTOLEDO SURGERYOR 09GynecologyInpatientElectivePanel 1 ProcedureLRBAnS[facility] [place] ClassCommentsDAVINCI HYSTERECTOMY SALPINGO OOPHORECTOMY/RADICAL INTRAPERITONEAL TUMOR DEBULKINGBilateralGeneralClean Contaminated Panel 2 ProcedureLRCheyenne [facility] [place] ClassCommentsFLEXIBLE SIGMOIDOSCOPYN/A GeneralClean Contaminated SurgeonSurgeon Helena, Manuel Ryder, DEBnleizvDdihild1Gfukal, Dennis Carbajal, MDPrimaryGynecology1 Case Notes [facility] 2W MOVE UP TO 1130 Special Needs MOVE UP TO 1130 documented in this encounter Social History Tobacco UseTypesPacks/DayYears UsedDateSmoking Tobacco: NeverSmokeless Tobacco: Never Tobacco Cessation:Counseling Given: Not Answered Alcohol UseStandard Drinks/WeekCommentsNever0 (1 standard drink = 0.6 oz pure alcohol)PHQ-2AnswerDate RecordedTotal Mkkai02110/04/2024UDIT-CAnswerDate Recorded Q1: How often do you have [...] RecordedIn the past 12 months has the [place], gas, oil, or water Cent[employer] threatened to shut off services in your [...] InformationValueDate RecordedSex Assigned at BirthNot on fileLegal TyeRfkjda42/08/2025 12:05 AM ESTGender IdentityNot on fileSexual OrientationNot on filedocumented as of this encounter Last Filed Vital Signs Vital SignReadingTime TakenCommentsBlood Mlzkmlqw270/6208/07/2025 11:57 AM EST Qwbai971608/07/2025 11:57 AM ZVFFmbwygxolhb23.1 ??C (98.8 ??F)08/07/2025 11:57 AM ESTRespiratory Ussk151010/07/2024 11:57 AM ESTOxygen Wmzotqzmvk94%08/07/2025 11:57 AM ESTInhaled Oxygen Concentration--Kxtdcy17 kg (167 lb 8.8 oz)08/07/2025 2:12 AM XJYFkwylw957.5 cm (5' 2.01 )08/04/2025 8:39 AM ESTBody Mass Index30.23 08/04/2025 8:39 AM ESTdocumented in this encounter Functional Status * QuestionAnswerDate of AssessmentAuthorFunctional DsijyzDtxgcnobtao24/09/2025 11:52 AM Milagros Bolden RN * AUDIT-C ScoreAnswerDate of WbrchxmzejGllqww630/08/2025 3:44 PM Denice Schultz RN * QuestionAnswerDate [...] Schultz RN documented as of this encounter Discharge Summaries * Jalyn Camp [...] history on file. who initially presented to [facility] for vaginal bleeding. A pelvic ultrasound and CT abdomen were performed that showed a uterine mass and enlarged lymph nodes. The patient was transferred to [facility]. Upon arrival speculumexam showed 1 [...] Your Medications These medications were sent to [facility] - [place], [place] - [address] [facility] [address] [facility] [address] acetaminophen 500 mg tablet famotidine 20 mg [...] Postop visit on 08/21 Jalyn Camp MD DATA COORDINATOR Resident, PGY-3 Cosigned by Sherry Cuellar MD [...] changes made as necessary. Jalyn Camp MD Broadcast Supervisor Resident PGY-2 08/09/25 6:44 AM Cosigned by [...] last 7 days Lab Units 08/07/25 0540 08/06/2562208/05/252010 POTASSIUM mmol/L 3.2* 3.6 3.3* CHLORIDE [...] changes made as necessary. Jalyn Camp MD Broadcast Supervisor Resident PGY-2 08/08/25 6:38 AM Cosigned by [...] Camp MD - 08/07/2025 6:39 AM [facility] Ad[facility] Date: 08/04/2025 Hospital [...] -Hgb 7.2 (OSH)>5.8>2u pRBC>9.1>8>8.3>8.3 Jalyn Camp MD Broadcast Supervisor Resident, PGY-3 If questions or concerns, please contact via GynOn pager at [phone]. Cosigned by Dennis Monson MD at 08/07/2025 [...] Ramirez MD - 08/06/2025 7:09 AM EST [facility] Admission Date: 08/04/2025 [...] at 08/06/2025 0709 Last data filed at 08/05/20252099 Gross per 24 hour Intake -- Output [...] and hold food down. Nusrat Ramirez MD Broadcast Supervisor Resident, PGY-1 If questions or concerns, please contact via [facility] pager at [phone]. Cosigned by Sherry Cuellar MD at 08/06/2025 [...] Still MD - 08/05/2025 6:24 AM EST [facility] Daily Progress Note Admission Date: 08/04/2025 [...] not had a bowel movement. Objective: Vitals: 08/04/251928 BP: 107/54 Pulse: 69 Resp: 18 Temp: [...] home today with close follow up with [facility] for pathology review and treatment planning. Annita Still MD Broadcast Supervisor Resident, PGY-2 If questions or concerns, please contact via GynOn pager at [phone]. Cosigned by Dustin Santiago MD at 08/05/2025 [...] Colon dilation History of Present Illness: Eunice Andersno is a 70 y.o. female was being [...] 08/04/2025 Performed by Dustin Santiago MD at [facility] Allergies Allergen Reactions Latex Hives and [...] infusion, 100 mL/hr, intravenous, Continuous PRN, Sarah Strange DO dextrose 5 % (D5W) infusion, 100 mL/hr, intravenous, Continuous PRN, Mahendra Rico MD [Transfer Hold] dextrose 50 % in water (D50W) 50% solution 25 mL, 25 mL, intravenous, PRN, Annita Still MD [Transfer Hold] dextrose 50 % in water (D50W) 50% solution 25 mL, 25 mL, intravenous, PRN, Sarah Strange DO dextrose 50 % in water (D50W) 50% solution 25 mL, 25 mL, intravenous, PRN, Mahendra Rico MD [Transfer Hold] glucagon HCL injection 1 mg, 1 mg, intramuscular, PRN, Annita Still MD [Transfer Hold] glucagon HCL injection 1 mg, 1 mg, intramuscular, PRN, Sarah Strange, glucagon HCL injection 1 mg, 1 mg, [...] injection 1 mg, 0.1 mL, intradermal, PRN, Maehndra Rico MD, 50 mL at 08/07/25 1340 [...] mL, 3 mL, intravenous, Q12H ION, Annita Still MD, 3 mL at 08/07/25 0824 sodium chloride 0.9 % flush 3 mL, 3 mL, intravenous, Q12H IONMahendra MD sodium chloride 0.9 % flush 3 mL, 3 mL, intravenous, PRN, Mahendra Rico MD sodium chloride 0.9 % flush 3 mL, 3 mL, intravenous, Q12H [facility]ENTERMahendra MD [Transfer Hold] sodium chloride 0.9 % [...] have an obstructing tumor. Manuel Busby MD, [facility] General Surgeons Minimally Invasive Robotic Surgery Board Certified in General Surgery Board Certified in Critical Care Office: [phone] Email: [email or web address] Thank you for allowing me to participate in the care of your patient. Please feel free to contact me with any questions or concerns. [phone] * Dennis Monson MD - 08/07/2025 11:26 AM EST HISTORY AND PHYSICAL INTERVAL NOTE: Eunice Anderson 1955 [id number] H&P reviewed. The patient was examined and there are no changes to the H&P. Dennis Monson MD Source Note - Jalyn Camp MD - 08/07/2025 6:39 AM EST [facility] Admission Date: 08/04/2025 Hospital [...] No edema; no calf tenderness. Assessment/Plan: Eunice Lillie Anderson is a 70 y.o. GNo obstetric [...] -Hgb 7.2 (OSH)>5.8>2u pRBC>9.1>8>8.3>8.3 Jalyn Camp MD Broadcast Supervisor Resident, PGY-3 If questions or concerns, please contact via GynOn pager at [phone]. Cosigned by Dennis Monson MD at 08/07/2025 11:22 AM EST * Annita Still MD - 08/04/2025 3:38 AM EST Gynecology Oncology Consultation Date of Admission: 08/04/2025 3:32 AM Chief Complaint : Uterine mass, vaginal bleeding History of Present Illness : Eunice Anderson is a 70 y.o. female with PMH of glaucoma who presents as a transport from [facility] for vaginal bleeding. Patient reports vaginal spotting that began 2 days ago. She reports feeling weak, lightheaded, and nauseous 1 day ago while at work and went to the bathroom where she filled the toilet with blood. Patient was brought to [facility] where pelvic USN and CT[facility] wereper[facility] that revealed a likely uterine mass and possible enlarged lymph node. Hgb at the time was 9mg/dl and vaginal bleeding was stable. Patient was referred to OBGYN outpatient for close follow up. She reports worsening vaginal bleeding overnight along with weakness, lightheadedness, nausea. She also reports intermittent painful cramps and passage of clots. She was taken to [facility] for evaluation. Per report, the patient was vitally stable, pale, and hgb was 7.2mg/dl. On exam, 1 large clot was cleared from the vagina and another remained at the cervical os with a slow trickle of active bleeding. Patient was given IVF and decision was made to transport patient to [facility] for Gynecology Oncology evaluation for vaginal bleeding in the setting of a pelvic mass. 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 Denies prior gynecologic [...] mL/hr, intravenous, Continuous PRN, Annita Still MD dextrose 50 % in water (D50W) 50% solution 25 mL, 25 mL, intravenous, PRN, Annita Still MD glucagon HCL injection 1 mg, 1 mg, intramuscular, PRN, Annita Still MD HYDROmorphone (PF) (DILAUDID) injection 0.2 mg, 0.2 mg, intravenous, Once, Annita Still MD sodium chloride 0.9 % flush 3 mL, 3 mL, intravenous, PRN, Annita Still MD sodium chloride 0.9 % flush 3 mL, 3 mL, intravenous, Q12H ION, Annita Still MD sodium chloride 0.9 % flush bag, 25 mL, intravenous, PRN, Annita Still MD sodium chloride 0.9 % infusion, 20 mL/hr, intravenous, Continuous PRN, Annita Still MD Social History: Social History Socioeconomic History [...] Discussed with Dr. Santiago Annita Still MD Broadcast Supervisor Resident, PGY-2 If questions or concerns, please contact via GynOn pager at [phone]. Cosigned by Dustin Santiago MD at 08/04/2025 [...] Description: INTERVENTIONS: 1. Encourage patient or legal insurance service representative to report early pain and ask [...] per policy 9. Teach patient or legal insurance service representative interventions for comforting 08/09/2025 1726 by JORDYN Wharton Outcome: Adequate [...] at the bedside 7. Instruct patient/ patient insurance service representative about use of safety devices 8. Include patient/ patient insurance service representative in decisions related to safety 08/09/20251725 [...] hygiene technique. 7. Identify and instruct patient/patient insurance service representative in use of appropriate isolation precautionsfor identified infection/symptoms. 8. Provide and discuss with patient/patient insurance service representative on educational MDRO sheet. 9. Encourage and monitor nutritional status daily and consult nuclear monitoring technician if indicated. 10. Implement neutropenic guidelines as needed. 08/09/20251725 by JORDYN Wharton Outcome: Adequate for Discharge 08/09/20251228 by JORDYN Wharton Outcome: Progressing Note: Evaluation of progress towards goal: Patient afebrile, vital signs stable at this time. Continuing to monitor. Problem: Knowledge Deficit Goal: Patient/patient insurance service representative demonstrates understanding of disease process, treatment [...] Arrange for needed discharge transportation as appropriate 08/09/2025 1726 by JORDYN Wharton Outcome: Adequate for Discharge 08/09/2025 1229 by JORDYN Wharton Outcome: Progressing Note: Evaluation of progress towards goal: Discharge planning in progress. Continuing to monitor. Problem: Moderate - High Risk Fall Score Description: Torres Fall Score of =/> 25 or indicated by [facility] Assessment Goal: Patient should be free from fall Description: Interventions: 1. [place] to environment 2. Hourly rounds addressing the [...] non-skid footwear 11. Teach patient and patient insurance service representative to maintain environment for safety and [...] (cane, walker) within reach 19. Request patient insurance service representative bring adaptive equipment/mobility aids from home or obtain and provide as needed 20. Consult pharmacy regarding effects of med's affecting mobility, cognition, and alternatives 21. Obtain physician order for PT if risk factors associated with mobility are present 22. Obtain physician order for OT as appropriate 23. Utilize diversional activities 24. Educate patient and patient insurance service representative how to maintain a safe environment during visitationtimes (notify nurse prior to leaving bedside) 25. Consider appropriateness of medical or non-medical fee clerk 26. Set up voiding schedule as appropriate [...] supplement as ordered 13. Collaborate with clinical nuclear monitoring technician 14. Include patient/ patient's insurance service representative in decisions related to nutrition Outcome: [...] * Plan of Care - Eloisa Doshi RP - 08/09/2025 2:16 PM EST Problem: Medication [...] ew also shows new medication use. * PT/OT/TALENT BUYER - eNo Hoskins PTA - 08/09/2025 2:07 PM EST [...] Description: INTERVENTIONS: 1. Encourage patient or legal insurance service representative to report early pain and ask [...] per policy 9. Teach patient or legal insurance service representative interventions for comforting Outcome: Progressing Note: [...] at the bedside 7. Instruct patient/ patient insurance service representative about use of safety devices 8. Include patient/ patient insurance service representative in decisions related to safety Outcome: [...] hygiene technique. 7. Identify and instruct patient/patient insurance service representative in use of appropriate isolation precautionsfor identified infection/symptoms. 8. Provide and discuss with patient/patient insurance service representative on educational MDRO sheet. 9. Encourage and monitor nutritional status daily and consult nuclear monitoring technician if indicated. 10. Implement neutropenic guidelines as needed. Outcome: Progressing Note: Evaluation of progress towards goal: Patient afebrile, vital signs stable at this time. Continuing to monitor. Problem: Knowledge Deficit Goal: Patient/patient insurance service representative demonstrates understanding of disease process, treatment [...] be free from fall Description: Interventions: 1. [place] to environment 2. Hourly rounds addressing the [...] non-skid footwear 11. Teach patient and patient insurance service representative to maintain environment for safety and [...] (cane, walker) within reach 19. Request patient insurance service representative bring adaptive equipment/mobility aids from home or obtain and provide as needed 20. Consult pharmacy regarding effects of med's affecting mobility, cognition, and alternatives 21. Obtain physician order for PT if risk factors associated with mobility are present 22. Obtain physician order for OT as appropriate 23. Utilize diversional activities 24. Educate patient and patient insurance service representative how to maintain a safe environment during visitationtimes (notify nurse prior to leaving bedside) 25. Consider appropriateness of medical or non-medical fee clerk 26. Set up voiding schedule as appropriate [...] Description: INTERVENTIONS: 1. Encourage patient or legal insurance service representative to report early pain and ask [...] per policy 9. Teach patient or legal insurance service representative interventions for comforting Outcome: Progressing Note: [...] at the bedside 7. Instruct patient/ patient insurance service representative about use of safety devices 8. Include patient/ patient insurance service representative in decisions related to safety Outcome: [...] hygiene technique. 7. Identify and instruct patient/patient insurance service representative in use of appropriate isolation precautionsfor identified infection/symptoms. 8. Provide and discuss with patient/patient insurance service representative on educational MDRO sheet. 9. Encourage and monitor nutritional status daily and consult nuclear monitoring technician if indicated. 10. Implement neutropenic guidelines as needed. Outcome: Progressing Note: Evaluation of progress towards goal: No signs or symptoms of infection Problem: Knowledge Deficit Goal: Patient/patient insurance service representative demonstrates understanding of disease process, treatment [...] Score of =/> 25 or indicated by [facility] Assessment Goal: Patient should be free from fall Description: Interventions: 1. [place] to environment 2. Hourly rounds addressing the [...] non-skid footwear 11. Teach patient and patient insurance service representative to maintain environment for safety and [...] (cane, walker) within reach 19. Request patient insurance service representative bring adaptive equipment/mobility aids from home or obtain and provide as needed 20. Consult pharmacy regarding effects of med's affecting mobility, cognition, and alternatives 21. Obtain physician order for PT if risk factors associated with mobility are present 22. Obtain physician order for OT as appropriate 23. Utilize diversional activities 24. Educate patient and patient insurance service representative how to maintain a safe environment during visitationtimes (notify nurse prior to leaving bedside) 25. Consider appropriateness of medical or non-medical fee clerk 26. Set up voiding schedule as appropriate [...] supplement as ordered 13. Collaborate with clinical nuclear monitoring technician 14. Include patient/ patient's insurance service representative in decisions related to nutrition Outcome: [...] YESENIA SHAIKH RN 08/08/25 10:07 AM * PT/OT/TALENT BUYER - Toya Ortiz OT/Steve - 08/08/2025 9:33 AM EST Occupational Therapy [...] 08/07/2025 Performed by Dennis Monson MD at [facility] DILATION CURETTAGE N/A 08/04/2025 Performed by Dustin Santiago MD at [facility] FLEXIBLE SIGMOIDOSCOPY N/A 08/07/2025 Performed by Manuel Busby MD at [facility] No chief complaint on file. 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 Hand Dominance: Right [...] Patient will perform bed mobility with Modified [place] Dates: Start: 08/08/25 Expected End: 09/06/25 Description: Goal Description: Disciplines: OT Problem: Functional Mobility Dates: Start: 08/08/25 Disciplines: OT Goal: Patient will perform functional mobility with Modified [place] Dates: Start: 08/08/25 Expected End: 09/06/25 Description: [...] Goal: Patient will perform transfers with Modified [place] Dates: Start: 08/08/25 Expected End: 09/06/25 Description: Goal Description: Disciplines: OT Occupational Therapy Care Plan (Resolved) There are no resolved problems. Principal Problem: Pelvic mass Active Problems: Vagina bleeding Vaginal bleeding * PT/OT/TALENT BUYER - Ginny Mcghee PT - 08/08/2025 9:31 AM EST Physical [...] 08/07/2025 Performed by Dennis Monson MD at [facility] DILATION CURETTAGE N/A 08/04/2025 Performed by Dustin Santiago MD at [facility] FLEXIBLE SIGMOIDOSCOPY N/A 08/07/2025 Performed by Manuel Busby MD at [facility] No chief complaint on file. 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[employer]) Hearing / Speech / Vision Hearing: Within [...] Goal: Patient will perform gait with Modified [place] Dates: Start: 08/08/25 Expected End: 09/07/25 Description: Pt to amb 150' with RW and [place] Disciplines: PT Problem: Stairs/Curb Dates: Start: 08/08/25 Disciplines: PT Goal: Patient will perform stairs/curb with Modified [place] Dates: Start: 08/08/25 Expected End: 09/07/25 Description: [...] Goal: Patient will perform transfers with Modified [place] Dates: Start: 08/08/25 Expected End: 09/07/25 Description: Sit<>stand with [place] and use of RW for support Disciplines: [...] Description: INTERVENTIONS: 1. Encourage patient or legal insurance service representative to report early pain and ask [...] per policy 9. Teach patient or legal insurance service representative interventions for comforting Outcome: Progressing Note: [...] at the bedside 7. Instruct patient/ patient insurance service representative about use of safety devices 8. Include patient/ patient insurance service representative in decisions related to safety Outcome: [...] hygiene technique. 7. Identify and instruct patient/patient insurance service representative in use of appropriate isolation precautionsfor identified infection/symptoms. 8. Provide and discuss with patient/patient insurance service representative on educational MDRO sheet. 9. Encourage and monitor nutritional status daily and consult nuclear monitoring technician if indicated. 10. Implement neutropenic guidelines as needed. Outcome: Progressing Note: Evaluation of progress towards goal: Pts VSS and labs WNL, no S/S of infection, all insertionsites clean dry and intact, pt and staff utilize proper handwashing technique. Problem: Knowledge Deficit Goal: Patient/patient insurance service representative demonstrates understanding of disease process, treatment [...] goal: Pt discharge plan started on admission, caregiver services home involved, discharges needs assessed. Problem: Moderate - High Risk Fall Score Description: Torres Fall Score of =/> 25 or indicated by [facility] Assessment Goal: Patient should be free from fall Description: Interventions: 1. [place] to environment 2. Hourly rounds addressing the [...] non-skid footwear 11. Teach patient and patient insurance service representative to maintain environment for safety and [...] (cane, walker) within reach 19. Request patient insurance service representative bring adaptive equipment/mobility aids from home or obtain and provide as needed 20. Consult pharmacy regarding effects of med's affecting mobility, cognition, and alternatives 21. Obtain physician order for PT if risk factors associated with mobility are present 22. Obtain physician order for OT as appropriate 23. Utilize diversional activities 24. Educate patient and patient insurance service representative how to maintain a safe environment during visitationtimes (notify nurse prior to leaving bedside) 25. Consider appropriateness of medical or non-medical fee clerk 26. Set up voiding schedule as appropriate [...] supplement as ordered 13. Collaborate with clinical nuclear monitoring technician 14. Include patient/ patient's insurance service representative in decisions related to nutrition Outcome: [...] Description: INTERVENTIONS: 1. Encourage patient or legal insurance service representative to report early pain and ask [...] per policy 9. Teach patient or legal insurance service representative interventions for comforting Outcome: Progressing Note: [...] at the bedside 7. Instruct patient/ patient insurance service representative about use of safety devices 8. Include patient/ patient insurance service representative in decisions related to safety Outcome: [...] hygiene technique. 7. Identify and instruct patient/patient insurance service representative in use of appropriate isolation precautionsfor identified infection/symptoms. 8. Provide and discuss with patient/patient insurance service representative on educational MDRO sheet. 9. Encourage and monitor nutritional status daily and consult nuclear monitoring technician if indicated. 10. Implement neutropenic guidelines as needed. Outcome: Progressing Note: Evaluation of progress towards goal: No signs or symptoms of infection Problem: Knowledge Deficit Goal: Patient/patient insurance service representative demonstrates understanding of disease process, treatment [...] Score of =/> 25 or indicated by [facility] Assessment Goal: Patient should be free from fall Description: Interventions: 1. [place] to environment 2. Hourly rounds addressing the [...] non-skid footwear 11. Teach patient and patient insurance service representative to maintain environment for safety and [...] (cane, walker) within reach 19. Request patient insurance service representative bring adaptive equipment/mobility aids from home or obtain and provide as needed 20. Consult pharmacy regarding effects of med's affecting mobility, cognition, and alternatives 21. Obtain physician order for PT if risk factors associated with mobility are present 22. Obtain physician order for OT as appropriate 23. Utilize diversional activities 24. Educate patient and patient insurance service representative how to maintain a safe environment during visitationtimes (notify nurse prior to leaving bedside) 25. Consider appropriateness of medical or non-medical fee clerk 26. Set up voiding schedule as appropriate [...] supplement as ordered 13. Collaborate with clinical nuclear monitoring technician 14. Include patient/ patient's insurance service representative in decisions related to nutrition Outcome: [...] the pelvis, flexible sigmoidoscopy Surgeon: Kehinde Monson Skelp Processor: Zoë,PGY-3 present for all portions of the [...] condition the family was updated postoperatively. * PT/OT/LI - Vale Bhatt OTR/Steve - 08/07/2025 11:46 AM EST Occupational Therapy OT Type of Visit: Medical deferral (will continue to follow) Reason For Medical Deferral: Off unit Off Unit: Surgery * PT/OT/TALENT BUYER - Ginny Mcghee, PT - 08/07/2025 11:42 [...] Description: INTERVENTIONS: 1. Encourage patient or legal insurance service representative to report early pain and ask [...] per policy 9. Teach patient or legal insurance service representative interventions for comforting Outcome: Progressing Note: [...] at the bedside 7. Instruct patient/ patient insurance service representative about use of safety devices 8. Include patient/ patient insurance service representative in decisions related to safety Outcome: [...] hygiene technique. 7. Identify and instruct patient/patient insurance service representative in use of appropriate isolation precautionsfor identified infection/symptoms. 8. Provide and discuss with patient/patient insurance service representative on educational MDRO sheet. 9. Encourage and monitor nutritional status daily and consult nuclear monitoring technician if indicated. 10. Implement neutropenic guidelines as needed. Outcome: Progressing Note: Evaluation of progress towards goal: Pts VSS and labs WNL, no S/S of infection, all insertionsites clean dry and intact, pt and staff utilize proper handwashing technique. Problem: Knowledge Deficit Goal: Patient/patient insurance service representative demonstrates understanding of disease process, treatment [...] goal: Pt discharge plan started on admission, caregiver services home involved, discharges needs assessed. Problem: Moderate - High Risk Fall Score Description: Torres Fall Score of =/> 25 or indicated by [facility] Assessment Goal: Patient should be free from fall Description: Interventions: 1. [place] to environment 2. Hourly rounds addressing the [...] non-skid footwear 11. Teach patient and patient insurance service representative to maintain environment for safety and [...] (cane, walker) within reach 19. Request patient insurance service representative bring adaptive equipment/mobility aids from home or obtain and provide as needed 20. Consult pharmacy regarding effects of med's affecting mobility, cognition, and alternatives 21. Obtain physician order for PT if risk factors associated with mobility are present 22. Obtain physician order for OT as appropriate 23. Utilize diversional activities 24. Educate patient and patient insurance service representative how to maintain a safe environment during visitationtimes (notify nurse prior to leaving bedside) 25. Consider appropriateness of medical or non-medical fee clerk 26. Set up voiding schedule as appropriate [...] supplement as ordered 13. Collaborate with clinical nuclear monitoring technician 14. Include patient/ patient's insurance service representative in decisions related to nutrition Outcome: [...] Description: INTERVENTIONS: 1. Encourage patient or legal insurance service representative to report early pain and ask [...] per policy 9. Teach patient or legal insurance service representative interventions for comforting Outcome: Progressing Note: [...] at the bedside 7. Instruct patient/ patient insurance service representative about use of safety devices 8. Include patient/ patient insurance service representative in decisions related to safety Outcome: [...] hygiene technique. 7. Identify and instruct patient/patient insurance service representative in use of appropriate isolation precautionsfor identified infection/symptoms. 8. Provide and discuss with patient/patient insurance service representative on educational MDRO sheet. 9. Encourage and monitor nutritional status daily and consult nuclear monitoring technician if indicated. 10. Implement neutropenic guidelines as needed. Outcome: Progressing Note: Evaluation of progress towards goal: Pt free from signs of infection at this time, will continue to monitor for signs and symptoms of infection during shift. Pt afebrile. Problem: Knowledge Deficit Goal: Patient/patient insurance service representative demonstrates understanding of disease process, treatment [...] Score of =/> 25 or indicated by [facility] Assessment Goal: Patient should be free from fall Description: Interventions: 1. [place] to environment 2. Hourly rounds addressing the [...] non-skid footwear 11. Teach patient and patient insurance service representative to maintain environment for safety and [...] (cane, walker) within reach 19. Request patient insurance service representative bring adaptive equipment/mobility aids from home or obtain and provide as needed 20. Consult pharmacy regarding effects of med's affecting mobility, cognition, and alternatives 21. Obtain physician order for PT if risk factors associated with mobility are present 22. Obtain physician order for OT as appropriate 23. Utilize diversional activities 24. Educate patient and patient insurance service representative how to maintain a safe environment during visitationtimes (notify nurse prior to leaving bedside) 25. Consider appropriateness of medical or non-medical fee clerk 26. Set up voiding schedule as appropriate [...] supplement as ordered 13. Collaborate with clinical nuclear monitoring technician 14. Include patient/ patient's insurance service representative in decisions related to nutrition Outcome: [...] Description: INTERVENTIONS: 1. Encourage patient or legal insurance service representative to report early pain and ask [...] per policy 9. Teach patient or legal insurance service representative interventions for comforting Outcome: Progressing Note: [...] at the bedside 7. Instruct patient/ patient insurance service representative about use of safety devices 8. Include patient/ patient insurance service representative in decisions related to safety Outcome: [...] hygiene technique. 7. Identify and instruct patient/patient insurance service representative in use of appropriate isolation precautionsfor identified infection/symptoms. 8. Provide and discuss with patient/patient insurance service representative on educational MDRO sheet. 9. Encourage and monitor nutritional status daily and consult nuclear monitoring technician if indicated. 10. Implement neutropenic guidelines as needed. Outcome: Progressing Note: Evaluation of progress towards goal: Hand hygiene, monitor labs and vitals Problem: Knowledge Deficit Goal: Patient/patient insurance service representative demonstrates understanding of disease process, treatment [...] Score of =/> 25 or indicated by [facility] Assessment Goal: Patient should be free from fall Description: Interventions: 1. [place] to environment 2. Hourly rounds addressing the [...] non-skid footwear 11. Teach patient and patient insurance service representative to maintain environment for safety and [...] (cane, walker) within reach 19. Request patient insurance service representative bring adaptive equipment/mobility aids from home or obtain and provide as needed 20. Consult pharmacy regarding effects of med's affecting mobility, cognition, and alternatives 21. Obtain physician order for PT if risk factors associated with mobility are present 22. Obtain physician order for OT as appropriate 23. Utilize diversional activities 24. Educate patient and patient insurance service representative how to maintain a safe environment during visitationtimes (notify nurse prior to leaving bedside) 25. Consider appropriateness of medical or non-medical fee clerk 26. Set up voiding schedule as appropriate [...] supplement as ordered 13. Collaborate with clinical nuclear monitoring technician 14. Include patient/ patient's insurance service representative in decisions related to nutrition Outcome: [...] patient need discharge transportation arranged? No 3-Midnight Pyrometer Operator met with patient, introduced self, and explained [...] yesterday but information is not in chart. back digger operator contacted Registration again today to follow up with patient to get information. Patient reports her spouse took home her wallet so she was unable to provide cards to me. IMM given to patient for signature, copy placed in chart. PCP: ANN MARIE SIDHU MD Pharmacy: prefers [facility] PCP and pharmacy confirmed with [...] possible discharge later today. Annita Still MD Ob-Educational Aide Resident, PGY-2 * Op Note - Sarah Strange DO - 08/04/2025 9:37 AM EST Gynecologic Operative Note NAME: Eunice Anderson : 1955 PROCEDURE DATE: 08/04/2025 Pre-op Diagnosis: vaginal bleeding with acute blood loss anemia Post-op Diagnosis: same as above Procedure: Dilation and Curettage Surgeon: Dr. Dustin Santiago Skelp Processor: Dr Sarah Strange D.O. PGY-2 Anesthesia Type: [...] were correct x 2. Sarah Strange DO Broadcast Supervisor Resident, PGY-2 Cosigned by Dustin Santiago MD [...] Plan of Treatment DateTypeDepartmentCare Team (Latest Contact Info)Jcebdtmmtwq45/24/2025 11:30 AM ESTHospital [facility]counter [facility] [address] [place] [phone] Justin Mackey MD [address] [place] [phone] 08/20/2025 11:30 AM EST - 08/20/2025 12:30 PM [facility]Sur[facility] [address] [place] [phone] Justin Mackey MD [address] [place] [phone] INSERTION PORT A CATH [[id number] (CPT??)]08/21/2025 8:00 AM [address]Infusion [facility] [facility] - Medical Oncology [address] [place] [phone] 08/21/2025 11:00 AM ESTOffice Visit Paola [place] [facility] - Medical Oncology [address] [place] [phone] [place] [address] [place] [address] [address] [place] [address] 09/10/2025 11:00 AM ESTInfusion Paola [place] [facility] - Medical Oncology [address] [place] [phone] 09/10/2025 1:30 PM ESTOffice Visit [facility], A Department of [place] [address] [place] [phone] Annita Patton, CREDIT RISK MANAGEMENT DIRECTOR-REFERRAL RN [address] [facility], [address] [place] [address] 09/11/2025 8:00 AM ESTInfusion [facility] - Medical Oncology [address] [place] [phone] NameTypePriorityAssociated DiagnosesDate/TimeSurgical PathologyPathology and GilpavimSroctli19/08/2025 10:06 AM ESTNameTypePriorityAssociated DiagnosesOrder ScheduleSurgical PathologyPathology and [...] 08/11/2025 12:37 AM EST CBC WITH AUTO IGNFQVEZLFVDJjvjrsc34/13/2025 5:32 AM EST COMPREHENSIVE METABOLIC JJXETWrmlyjw64/13/2025 5:32 AM EST CBC WITH AUTO MTZZHVDYPDUNVyuoqxc40/12/2025 5:58 AM EST TYPE AND LYSTICRoefheo33/12/2025 5:57 AM EST COMPREHENSIVE METABOLIC FHKLDUcpdhmp39/12/2025 5:57 AM EST SURGICAL ESGYCUJSUEtxbtru07/11/2025 3:42 PM EST NON-GYNECOLOGIC RTIOEWIZBphzety47/11/2025 2:44 PM EST TRANSFUSE RED BLOOD RRWJMPufumzs91/11/2025 2:23 PM ESTFLEXIBLE SIGMOIDOSCOPY 08/07/2025 1:30 PM EST ENDOMETRIAL CANCER Case Notes [facility] EPIC 2W MOVE UP TO 1130 Special Needs MOVE UP TO 1130 DAVINCI HYSTERECTOMY SALPINGO NATNSGSIDOZV05/11/2025 1:30 PM EST ENDOMETRIAL CANCER Case Notes [place] EPIC 2W MOVE UP TO 1130 Special Needs MOVE UP TO 1130 CBC WITH AUTO CDRXISFQBERUHfiqlgw12/11/2025 5:40 AM EST COMPREHENSIVE METABOLIC NXVEKSckfmld27/11/2025 5:40 AM EST CROSSMATCH UREWaofodv39/10/2025 6:37 AM ESTCBC WITH AUTO DIFFERENTIALRoutine 08/06/2025 6:23 AM EST COMPREHENSIVE METABOLIC WJVGFRypkmfs64/10/2025 6:23 AM EST COMPREHENSIVE METABOLIC AIDUBBahxcch44/09/2025 8:[address] CHEST W YSRADvkkywv05/09/2025 12:11 PM EST CBC WITH AUTO MVAESRTXUQPZFpwwrzd31/09/2025 4:02 AM EST COMPREHENSIVE METABOLIC MTIMONjctqdj08/09/2025 4:02 AM EST CBC WITH AUTO VTWQACPLHLQCEevhmln00/08/2025 12:18 PM EST TRANSFUSE RED BLOOD GYPYLVallalj34/08/2025 10:00 AM ESTTRANSFUSE RED BLOOD CELLS Ybnntns1608/04/2025 8:39 AM ESTREPEATED FTIFNIwunavb46/08/2025 8:27 AM ESTREPEATED YHEOELshzrqx68/08/2025 7:41 AM EST CROSSMATCH ZNEFnbzsge02/08/2025 5:30 AM EST CBC WITH AUTO APYKQHCJRLGTMtcdzvo19/08/2025 5:30 AM EST NYFWRjobhuw67/08/2025 5:30 AM EST PROTIME & AUIUehyyir60/08/2025 5:30 AM EST TZOADRNGUBGreesxi11/08/2025 5:30 AM EST TYPE AND EEIVVMZaejgab10/08/2025 5:30 AM EST COMPREHENSIVE METABOLIC IIIWWOsthpiz99/08/2025 5:30 AM EST PULSE OXIMETRY, SYNDSlwnttm58/08/2025 3:38 AM ESTdocumented in this encounter Results * Crossmatch RBC:Number of Units: 2 (08/11/2025 12:37 AM EST)ComponentValueRef RangeTest MethodAnalysis TimePerformed AtPathologist SignatureBlood component [id number] BANK - [facility]Unit [id number] BANK - [place] Unit ABOOBLOOD BANK - [place] RHPOSBLOOD BANK - JumbletsCrossmatch CompatibleBLOOD BANK - JumbletsStatus of unitTRANSFUSEDBLOOD BANK - [place] Expiration [id number] BANK - OhlalappsKYBB Type Lbzauoi9446CPGIY BANK - JumbletsSpecimen (Source)Anatomical Location / LateralityCollection Method / VolumeCollection TimeReceived TimeBloodVenous blood / Lftwrjb0008/11/2025 12:37 AM EST08/04/2025 5:47 AM EST Narrative Authorizing ProviderResult TypeResult StatusKassidy Rejent MDBLOOD BANK PRODUCT ORDERABLESEdited Result - FinalPerforming OrganizationAddressCity/State/ZIP Code Phone Number [facility] - [place] * (ABNORMAL) CBC auto differential (08/09/2025 5:32 AM EST)ComponentValueRef RangeTest MethodAnalysis TimePerformed AtPathologist LfufwuxclVEA14.1(H)4 - 11 X10^9/L110/09/2024 7:00 AM [facility] LABORATORYRBC Count2.98 (L)3.8 - 5.2 X10^12/L110/09/2024 7:00 AM [facility] Hemoglobin8.9(L)11.7 - 15.5 g/dL08/09/2025 7:00 AM [facility] DDZDHKNTQOYdjspmcpjz69.3(L)35 - 47 %08/09/2025 7:00 AM [facility] SQZWYSZVDIODG1596 - 100 fL08/09/2025 7:00 AM [facility] VFOEULSJQJZEC61.027 - 34 pg08/09/2025 7:00 AM [facility] NPQUQYQOFFJKZT83.032 - 36 g/dL08/09/2025 7:00 AM [facility] VSVRTLBIXXZPZ32.7(H)11.5 - 15 %08/09/2025 7:00 AM [facility] LABORATORYPlatelet Jknko688893 - 450 X10^9/L110/09/2024 7:00 AM [facility] LABORATORYMPV7.97 - 12 fL08/09/2025 7:00 AM [facility] LABORATORYNeutrophils %75.6%08/09/2025 7:00 AM [facility] LABORATORYComment:This is an appended report. These results have been appended to a previously preliminary verified report.Lymphocytes % 11.1%08/09/2025 7:00 AM [facility] LABORATORYComment:This is an appended report. These results have been appended to a previously preliminary verified report.Monocytes %6.4%08/09/2025 7:00 AM [facility] LABORATORYComment:This is an appended report. These results have been appended to a previously preliminary verified report.Eosinophils % 5.8%08/09/2025 7:00 AM [facility] LABORATORYComment:This is an appended report. These results have been appended to a previously preliminary verified report.Basophils %1.1%08/09/2025 7:00 AM [facility]ATORYComment:This is an appended report. These results have been appended to a previously preliminary verified report.Neutrophils Absolute (A)10.7(H)1.5 - 6.6 X10^9/L110/09/2024 7:00 AM [facility] LABORATORYComment:This is an appended report. These results have been appended to a previously preliminary verified report.Lymphocytes Absolute1.6 1.0 - 3.5 X10^9/L110/09/2024 7:00 AM [facility] Comment:This is an appended report. These results have been appended to a previously preliminary verified report.Monocytes Absolute0.90.0 - 0.9 X10^9/L 08/09/2025 7:00 AM [facility]ATORYComment:This is an appended report. These results have been appended to a previously preliminary verified report.Eosinophils Absolute0.8(H)0.0 - 0.4 X10^9/L110/09/2024 7:00 AM [facility]ATORYComment:This is an appended report. These results have been appended to a previously preliminary verified report. Basophils Absolute0.10.0 - 0.2 X10^9/L110/09/2024 7:00 AM [facility] LAB[facility]ATORYComment:This is an appended report. These results have been appended to a previously preliminary verified report.Differential Type AUTOMATED TKWLUETXLDPD32/13/2025 7:00 AM [facility] LABORATORYComment:This is an appended report. These results have been appended to a previously preliminary verified report.Specimen (Source)Anatomical Location / LateralityCollection Method / VolumeCollection TimeReceived Time BloodVenous blood / UnknownVenipuncture / Qoeybkb7908/09/2025 5:32 AM EST 08/09/2025 5:54 AM EST Narrative Authorizing ProviderResult TypeResult StatusHala Magdaleno Sam MDLAB BLOOD ORDERABLESFinal ResultPerforming OrganizationAddressCity/State/ZIP CodePhone Number [facility] [address] [place] [address], [place] [phone] * (ABNORMAL) Comprehensive metabolic panel (08/09/2025 5:32 AM EST)Component ValueRef RangeTest MethodAnalysis TimePerformed AtPathologist SignatureSODIUM 296111 - 146 mmol/L110/09/2024 6:26 AM [facility] POTASSIUM3.3(L)3.5 - 5.0 mmol/L110/09/2024 6:26 AM [facility] WNECPMWJMXBWDSHOTE02189 - 109 mmol/L110/09/2024 6:26 AM [facility] LABORATORYCARBON HAJPQIE4571 - 32 mmol/L110/09/2024 6:26 AM [facility] LABORATORYANION BWS994 - 15 mmol/L110/09/2024 6:26 AM [facility] LABORATORYBLOOD UREA NSKCTTUC327 - 27 mg/dL08/09/2025 6:26 AM [facility] LABORATORYCREATININE0.650.40 - 1.00 mg/dL 08/09/2025 6:26 AM [facility] LABORATORYComment:METHOD TRACEABLE TO IDLA EKWKEJXOZCUICZS0467 - 99 mg/dL08/09/2025 6:26 AM [facility] LABORATORYCALCIUM8.1(L)8.5 - 10.5 mg/dL08/09/2025 6:26 AM [facility] LABORATORYTOTAL PROTEIN5.4(L)6.0 - 8.0 g/dL 08/09/2025 6:26 AM [facility] LABORATORYALBUMIN3.0(L)3.2 - 5.3 g/dL08/09/2025 6:26 AM [facility] LABORATORYALKALINE TEXPXRJHKZN6131 - 130 U/L110/09/2024 6:26 AM [facility] FSROPOOHOTGQM51<=41 U/L110/09/2024 6:26 AM [facility] LABORATORYALT6<=31 U/L110/09/2024 6:26 AM [facility] LABORATORYBILIRUBIN,TOTAL0.50.3 - 1.2 mg/dL08/09/2025 6:26 AM [facility]ORYEGFR Non-Race Dependent>90>=60 ml/min/1.73sq.m 08/09/2025 6:26 AM [facility] LABORATORYComment: Reported eGFR is based on the CKD-EPI 2020 equation that does not use a race coefficient. Specimen (Source)Anatomical Location / LateralityCollection Method / Volume Collection TimeReceived TimeBloodVenous blood / UnknownVenipuncture / Unknown 08/09/2025 5:32 AM EST08/09/2025 5:54 AM EST Narrative Authorizing ProviderResult TypeResult StatusBrittnee PASCUAL BLOOD ORDERABLESFinal ResultPerforming OrganizationAddressCity/State/ZIP CodePhone Number [facility] [address] [place] [address], * (ABNORMAL) CBC auto differential (08/08/2025 5:58 AM EST)ComponentValueRef RangeTest MethodAnalysis TimePerformed AtPathologist RwgstyyhmHYO70.1(H)4 - 11 X10^9/L110/08/2024 7:17 AM [facility] LABORATORYRBC Count2.95 (L)3.8 - 5.2 X10^12/L110/08/2024 7:17 AM [facility] Hemoglobin8.5(L)11.7 - 15.5 g/dL08/08/2025 7:17 AM [facility] XZGNAGIRKQLxvdsszdmr24.1(L)35 - 47 %08/08/2025 7:17 AM [facility] TUZSFMYFBQDRW8643 - 100 fL08/08/2025 7:17 AM [facility] RPNGDEMBHCKFU45.727 - 34 pg08/08/2025 7:17 AM [facility] HIPHXTKSRHWUUF55.532 - 36 g/dL08/08/2025 7:17 AM [facility] MQPIMWDHVDPIC75.7(H)11.5 - 15 %08/08/2025 7:17 AM [facility] LABORATORYPlatelet Qxykj601742 - 450 X10^9/L110/08/2024 7:17 AM EST [facility] LABORATORYMPV8.17 - 12 fL08/08/2025 7:17 AM [facility] LABORATORYNeutrophils %88.6%08/08/2025 7:17 AM [facility] LABORATORYComment:This is an appended report. These results have been appended to a previously preliminary verified report.Lymphocytes % 5.1%08/08/2025 7:17 AM [facility] LABORATORYComment:This is an appended report. These results have been appended to a previously preliminary verified report.Monocytes %5.9%08/08/2025 7:17 AM [facility] LABORATORYComment:This is an appended report. These results have been appended to a previously preliminary verified report.Eosinophils % 0.1%08/08/2025 7:17 AM [facility] LABORATORYComment:This is an appended report. These results have been appended to a previously preliminary verified report.Basophils %0.3%08/08/2025 7:17 AM [facility] LABORATORYComment:This is an appended report. These results have been appended to a previously preliminary verified report.Neutrophils Absolute (A)16.0(H)1.5 - 6.6 X10^9/L110/08/2024 7:17 AM [facility] LABORATORYComment:This is an appended report. These results have been appended to a previously preliminary verified report.Lymphocytes Absolute0.9 (L)1.0 - 3.5 X10^9/L110/08/2024 7:17 AM [facility] Comment:This is an appended report. These results have been appended to a previously preliminary verified report.Monocytes Absolute1.1(H)0.0 - 0.9 X10^9/L110/08/2024 7:17 AM [facility] LABORATORYComment:This is an appended report. These results have been appended to a previously preliminary verified report.Eosinophils Absolute0.00.0 - 0.4 X10^9/L110/08/2024 7:17 AM [facility] LABORATORYComment:This is an appended report. These results have been appended to a previously preliminary verified report.Basophils Absolute0.00.0 - 0.2 X10^9/L110/08/2024 7:17 AM [facility] LABORATORYComment:This is an appended report. These results have been appended to a previously preliminary verified report.Differential TypeAUTOMATED DCPUBTSPYWYL96/12/2025 7:17 AM [facility] LABORATORYComment:This is an appended report. These results have been appended to a previously preliminary verified report.Specimen (Source)Anatomical Location / LateralityCollection Method / VolumeCollection TimeReceived Time BloodVenous blood / UnknownVenipuncture / Ynbxshb7708/08/2025 5:58 AM EST 08/08/2025 6:30 AM EST Narrative Authorizing ProviderResult TypeResult StatusHala Magdaleno Sam MDLAB BLOOD ORDERABLESFinal ResultPerforming OrganizationAddressCity/State/ZIP CodePhone Number [facility] [address] [place] [address], * (ABNORMAL) Comprehensive metabolic panel (08/08/2025 5:57 AM EST)Component ValueRef RangeTest MethodAnalysis TimePerformed AtPathologist SignatureSODIUM 630454 - 146 mmol/L110/08/2024 7:06 AM [facility] POTASSIUM4.03.5 - 5.0 mmol/L110/08/2024 7:06 AM [facility] GRBFXTHSSSGYIBGZNZ69592 - 109 mmol/L110/08/2024 7:06 AM [facility] LABORATORYCARBON WYCVWTP8340 - 32 mmol/L110/08/2024 7:06 AM [facility] LABORATORYANION GAP95 - 15 mmol/L110/08/2024 7:06 AM [facility] LABORATORYBLOOD UREA FGCFSTOE788 - 27 mg/dL08/08/2025 7:06 AM [facility] LABORATORYCREATININE0.610.40 - 1.00 mg/dL 08/08/2025 7:06 AM [facility]ORATORYComment:METHOD TRACEABLE TO IDMS ITEUHIVINWFJPOX226(H)65 - 99 mg/dL08/08/2025 7:06 AM [facility] LABORATORYCALCIUM8.58.5 - 10.5 mg/dL08/08/2025 7:06 AM [facility] LABORATORYTOTAL PROTEIN5.4(L)6.0 - 8.0 g/dL 08/08/2025 7:06 AM [facility] LABORATORYALBUMIN3.23.2 - 5.3 g/dL08/08/2025 7:06 AM [facility] LABORATORYALKALINE IPWZEEJZXFY4738 - 130 U/L110/08/2024 7:06 AM [facility] BOCAJUNRPKJFG37<=41 U/L110/08/2024 7:06 AM [facility] LABORATORYALT3<=31 U/L110/08/2024 7:06 AM [facility] LABORATORYBILIRUBIN,TOTAL0.80.3 - 1.2 mg/dL08/08/2025 7:06 AM [facility]ORYEGFR Non-Race Dependent>90>=60 ml/min/1.73sq.m 08/08/2025 7:06 AM [facility]ORATORYComment: Reported eGFR is based on the CKD-EPI 2020 equation that does not use a race coefficient. Specimen (Source)Anatomical Location / LateralityCollection Method / Volume Collection TimeReceived TimeBloodVenous blood / UnknownVenipuncture / Unknown 08/08/2025 5:57 AM EST08/08/2025 6:30 AM EST Narrative Authorizing ProviderResult TypeResult StatusBrittnee PASCUAL BLOOD ORDERABLESFinal ResultPerforming OrganizationAddressCity/State/ZIP CodePhone Number [facility] [address] [place] [address], * Type and screen(includes indirect grady) (08/08/2025 5:57 AM EST)Component ValueRef RangeTest MethodAnalysis TimePerformed AtPathologist SignatureABOO 08/08/2025 7:52 AM ESTTTH BB - UOYTCQJKWRdnhfdvd95/12/2025 7:52 AM ESTTTH BB - WELLSKYAntibody GscbtyWyjllwgo24/12/2025 7:52 AM ESTTTH BB - WELLSKYSpecimen (Source)Anatomical Location / LateralityCollection Method / VolumeCollection TimeReceived TimeBloodVenous blood / UnknownVenipuncture / Lpvpkcx5208/08/2025 5:57 AM EST08/08/2025 6:54 AM EST Narrative Authorizing ProviderResult TypeResult StatusAleia K Catherine MDBLOOD BANK TEST ORDERABLESEdited Result - FinalPerforming OrganizationAddressCity/State/ZIP Code Phone Number [facility] [address] [place] [address], * Surgical Pathology (08/07/2025 3:42 PM EST)ComponentValueRef RangeTest Method Analysis TimePerformed AtPathologist SignatureCase ReportSurgical Pathology Report ? Case: [id number] ? Authorizing Provider: ??Dennis Monson MD ?Collected: ? 08/07/2025 1542 ? Ordering Location: ? [facility] ??Received: ?08/07/2025 1647 ? - Surgery ? Pathologist: ? Gene K MD Quinton ? Specimens: ?? 1) - Uterus, Fallopian Tube, Ovary, UTERUS, CERVIX, BILATERAL TUBES AND OVARIES ? 2) - Pelvis, LEFT POSTERIOR PELVIS BIOPSY ? 08/14/2025 2:47 PM [facility] LABORATORYFinal Diagnosis1. Uterus, fallopian tubes [...] posterior pelvis, biopsy: Metastatic carcinoma.08/14/2025 2:47 PM [facility] at 1447 ESTGross Description1. Received in formalin labeled NADERSON, uterus, cervix, bilateral tubes and ovaries is [...] 1 minute Total fixation time: 27 hours (18,ns,[id number], m8.1) 2. Received in formalin labeled ANDERSON, left posterior pelvis biopsy is pink-lambert feathery and friable soft tissue admixed with hemorrhagic material, 2.5 x 2.5 x 1.2 cm in aggregate. The specimen is submitted entirely in cassettes A- C. (3,ns,[id number], m8.1) 08/14/2025 2:47 PM [facility] LABORATORYSynoptic ChecklistENDOMETRIUM ENDOMETRIUM - All Specimens [facility] 8 - Protocol posted: 09/06/2024 SPECIMEN ?? [...] (no nodes submitted or found)08/14/2025 2:47 PM [facility] LABORATORYEmbedded Fzvkmt7808/14/2025 2:47 PM [facility] LABORATORYSpecimen (Source)Anatomical Location / LateralityCollection Method / VolumeCollection TimeReceived TimeTissue (Uterus, Fallopian Tube, Ovary)08/07/2025 3:42 PM EST08/07/2025 4:47 PM ESTComment:Pre-op diagnosis: ENDOMETRIAL CANCERTissue specimen (specimen)Pelvic region / Irgzqft7608/07/2025 3:43 PM EST08/07/2025 4:47 PM ESTComment:Pre-op diagnosis: ENDOMETRIAL CANCER Narrative Authorizing ProviderResult TypeResult Carli Monson MDPATHOLOGY/CYTOLOGY ORDERABLESFinal ResultPerforming OrganizationAddressCity/State/ZIP CodePhone Number [facility] [address] [place] [address], * Transfuse RBC:1 Unit (08/07/2025 2:56 PM EST) Narrative Authorizing ProviderResult TypeResult StatusAleshira Santiago MDBLOOD TRANSFUSION ORDERABLESFinal Result * Transfuse RBC:1 Unit (08/07/2025 2:56 PM EST) Narrative Authorizing ProviderResult TypeResult StatusLissethshira Anderson Catherine MDBLOOD TRANSFUSION ORDERABLESFinal Result * Cytology non-gynecologic (08/07/2025 2:44 PM EST)ComponentValueRef RangeTest MethodAnalysis TimePerformed AtPathologist SignatureCase ReportMedical Cytology Report ? Case: [id number] ? Authorizing Provider: ??Dennis Monson MD ?Collected: ? 08/07/2025 1444 ? Ordering Location: ? [facility] ??Received: ?08/07/2025 1501 ? - Surgery ? Pathologist: ? Darryl Alcantara MD ? Specimen: ?Pelvis, Pelvis fluid ? 08/14/2025 2:58 PM [facility]ATORYFinal DiagnosisPelvic fluid: Positive for Carcinoma, rare cells.08/14/2025 2:58 PM [facility] at 1458 ESTGross DescriptionReceived was 20ml of red fluid unfixed, labeled as Anderson, pelvis . CytoLyt added in lab. Specimen placed in formalin at 17:00 and had a total fixation time of 8 hours. 08/14/2025 2:58 PM [facility] LABORATORYEmbedded Images 08/14/2025 2:58 PM [facility] LABORATORYSpecimen (Source) Anatomical Location / LateralityCollection Method / VolumeCollection Time Received TimeFluidPelvic region / Crqxmnv0408/07/2025 2:44 PM EST08/07/2025 3:01 PM ESTComment:Pre-op diagnosis: ENDOMETRIAL CANCER Narrative Authorizing ProviderResult TypeResult StatusDennis Monson MDPATHOLOGY/CYTOLOGY ORDERABLESFinal ResultPerforming OrganizationAddressCity/State/ZIP CodePhone Number [facility] [address] [place] [address], * (ABNORMAL) Comprehensive metabolic panel (08/07/2025 5:40 AM EST)Component ValueRef RangeTest MethodAnalysis TimePerformed AtPathologist SignatureSODIUM 131783 - 146 mmol/L110/07/2024 6:42 AM [facility] POTASSIUM3.2(L)3.5 - 5.0 mmol/L110/07/2024 6:42 AM [facility] IBCQTIRGHSOXLBKEIJ904(H)98 - 109 mmol/L110/07/2024 6:42 AM [facility] LABORATORYCARBON WKPGXGV5557 - 32 mmol/L110/07/2024 6:42 AM [facility] LABORATORYANION GAP85 - 15 mmol/L110/07/2024 6:42 AM [facility] LABORATORYBLOOD UREA VSITXTWI860 - 27 mg/dL08/07/2025 6:42 AM [facility] LABORATORYCREATININE0.670.40 - 1.00 mg/dL 08/07/2025 6:42 AM [facility]ORATORYComment:METHOD TRACEABLE TO IDLA ZCQYZLWRDLEFKLQ237(H)65 - 99 mg/dL08/07/2025 6:42 AM [facility] LABORATORYCALCIUM8.0(L)8.5 - 10.5 mg/dL08/07/2025 6:42 AM [facility] LABORATORYTOTAL PROTEIN5.6(L)6.0 - 8.0 g/dL08/07/2025 6:42 AM [facility] LABORATORYALBUMIN3.0(L)3.2 - 5.3 g/dL08/07/2025 6:42 AM [facility] LABORATORYALKALINE LJFPQYOKTAQ1583 - 130 U/L110/07/2024 6:42 AM [facility] UAFLVOYIODCLT98<=41 U/L110/07/2024 6:42 AM [facility] LABORATORYALT4<=31 U/L110/07/2024 6:42 AM [facility] LABORATORYBILIRUBIN,TOTAL0.70.3 - 1.2 mg/dL08/07/2025 6:42 AM [facility]ORYEGFR Non-Race Dependent>90>=60 ml/min/1.73sq.m 08/07/2025 6:42 AM [facility]ORATORYComment: Reported eGFR is based on the CKD-EPI 2020 equation that does not use a race coefficient. Specimen (Source)Anatomical Location / LateralityCollection Method / Volume Collection TimeReceived TimeBloodVenous blood / UnknownVenipuncture / Unknown 08/07/2025 5:40 AM EST08/07/2025 6:04 AM EST Narrative Authorizing ProviderResult TypeResult StatusHala Magdaleno PASCUAL BLOOD ORDERABLESFinal ResultPerforming OrganizationAddressCity/State/ZIP CodePhone Number [facility] [address] [place] [address], * (ABNORMAL) CBC auto differential (08/07/2025 5:40 AM EST)ComponentValueRef RangeTest MethodAnalysis TimePerformed AtPathologist FybspmswySEI99.4(H)4 - 11 X10^9/L110/07/2024 6:49 AM [facility] LABORATORYRBC Count2.87 (L)3.8 - 5.2 X10^12/L110/07/2024 6:49 AM [facility] Hemoglobin8.3(L)11.7 - 15.5 g/dL08/07/2025 6:49 AM [facility] YRGJQRFQLPIrmmjzuwbo26.3(L)35 - 47 %08/07/2025 6:49 AM [facility] RZYZJIQMOLUFK7711 - 100 fL08/07/2025 6:49 AM [facility] KXVCUJKVEIDZS04.027 - 34 pg08/07/2025 6:49 AM [facility] VHPQUSKBCKWDKX66.932 - 36 g/dL08/07/2025 6:49 AM [facility] RMAZIERDDYFQP65.1(H)11.5 - 15 %08/07/2025 6:49 AM [facility] LABORATORYPlatelet Fbjjk770734 - 450 X10^9/L110/07/2024 6:49 AM EST [facility] LABORATORYMPV7.87 - 12 fL08/07/2025 6:49 AM [facility] LABORATORYBands %1%08/07/2025 6:49 AM [facility] LABORATORYComment:This is an appended report. These results have been appended to a previously preliminary verified report.Neutrophils %84% 08/07/2025 6:49 AM [facility]ATORYComment:This is an appended report. These results have been appended to a previously preliminary verified report.Lymphocytes %9%08/07/2025 6:49 AM [facility]ORATORYComment:This is an appended report. These results have been appended to a previously preliminary verified report.Monocytes %5%08/07/2025 6:49 AM [facility]ORATORYComment:This is an appended report. These results have been appended to a previously preliminary verified report. Eosinophils %1%08/07/2025 6:49 AM [facility] Comment:This is an appended report. These results have been appended to a previously preliminary verified report.Neutrophils Absolute (M)15.6(H)1.5 - 6.6 X10^9/L110/07/2024 6:49 AM [facility]ATORYComment: This is an appended report. These results have been appended to a previously preliminary verified report.Lymphocytes Absolute1.71.0 - 3.5 X10^9/L110/07/2024 6:49 AM [facility]ATORYComment:This is an appended report. These results have been appended to a previously preliminary verified report.Monocytes Absolute0.90.0 - 0.9 X10^9/L110/07/2024 6:49 AM [facility]ATORYComment:This is an appended report. These results have been appended to a previously preliminary verified report.Eosinophils Absolute0.20.0 - 0.4 X10^9/L110/07/2024 6:49 AM [facility]ATORYComment:This is an appended report. These results have been appended to a previously preliminary verified report.Polychromasia1+08/07/2025 6:49 AM [facility]ATORYComment:This is an appended report. These results have been appended to a previously preliminary verified report. Differential TypeMANUAL OHOBANHRURYN31/11/2025 6:49 AM [facility]ATORYComment:This is an appended report. These results have been appended to a previously preliminary verified report.Specimen (Source) Anatomical Location / LateralityCollection Method / VolumeCollection Time Received TimeBloodVenous blood / UnknownVenipuncture / Ohsburi6308/07/2025 5:40 AM EST08/07/2025 6:04 AM EST Narrative Authorizing ProviderResult TypeResult StatusBrittnee Sam MDLAB BLOOD ORDERABLESFinal ResultPerforming OrganizationAddressCity/State/ZIP CodePhone Number [facility] [address] [place] [id number], * Crossmatch RBC:Number of Units: 1 (08/06/2025 6:37 AM EST)Specimen (Source) Anatomical Location / LateralityCollection Method / VolumeCollection Time Received TimeBloodVenous blood / Mvdxmri1608/06/2025 6:37 AM EST Narrative Authorizing ProviderResult TypeResult StatusAnnita Still MDBLOOD BANK PRODUCT ORDERABLESFinal ResultPerforming OrganizationAddressCity/State/ZIP CodePhone Number [facility] * (ABNORMAL) Comprehensive metabolic panel (08/06/2025 6:23 AM EST)Component ValueRef RangeTest MethodAnalysis TimePerformed AtPathologist SignatureSODIUM [id number] - 146 mmol/L110/06/2024 7:33 AM [facility] POTASSIUM3.63.5 - 5.0 mmol/L110/06/2024 7:33 AM [facility] ZFSMQZCFWSSAAMEURN480(H)98 - 109 mmol/L110/06/2024 7:33 AM [facility] LABORATORYCARBON EQEOIIB01(L)22 - 32 mmol/L110/06/2024 7:33 AM [facility] LABORATORYANION FTX796 - 15 mmol/L110/06/2024 7:33 AM EST [facility] LABORATORYBLOOD UREA DKVLCXLC783 - 27 mg/dL08/06/2025 7:33 AM [facility] LABORATORYCREATININE0.680.40 - 1.00 mg/dL 08/06/2025 7:33 AM [facility]ORATORYComment:METHOD TRACEABLE TO IDMS JOSRSVKIEUTSPBJ998(H)65 - 99 mg/dL08/06/2025 7:33 AM EST [facility] LABORATORYCALCIUM8.1(L)8.5 - 10.5 mg/dL08/06/2025 7:33 AM [facility] LABORATORYTOTAL PROTEIN5.6(L)6.0 - 8.0 g/dL08/06/2025 7:33 AM [facility] LABORATORYALBUMIN3.23.2 - 5.3 g/dL08/06/2025 7:33 AM [facility] LABORATORYALKALINE SSBHSKKXIWL3841 - 130 U/L110/06/2024 7:33 AM [facility] WHQZVHSLKEJKK22<=41 U/L110/06/2024 7:33 AM [facility] LABORATORYALT5<=31 U/L110/06/2024 7:33 AM [facility] LABORATORYBILIRUBIN,TOTAL0.70.3 - 1.2 mg/dL08/06/2025 7:33 AM [facility]ORYEGFR Non-Race Dependent>90>=60 ml/min/1.73sq.m 08/06/2025 7:33 AM [facility] LABORATORYComment: Reported eGFR is based on the CKD-EPI 2020 equation that does not use a race coefficient. Specimen (Source)Anatomical Location / LateralityCollection Method / Volume Collection TimeReceived TimeBloodVenous blood / UnknownVenipuncture / Unknown 08/06/2025 6:23 AM EST08/06/2025 7:03 AM EST Narrative Authorizing ProviderResult TypeResult StatusHala Magdaleno PASCUAL BLOOD ORDERABLESFinal ResultPerforming OrganizationAddressCity/State/ZIP CodePhone Number [facility] [address] [place] [address], * (ABNORMAL) CBC auto differential (08/06/2025 6:23 AM EST)ComponentValueRef RangeTest MethodAnalysis TimePerformed AtPathologist ZofveeqmuRST63.4(H)4 - 11 X10^9/L110/06/2024 8:07 AM [facility] LABORATORYRBC Count2.87 (L)3.8 - 5.2 X10^12/L110/06/2024 8:07 AM [facility] Hemoglobin8.3(L)11.7 - 15.5 g/dL08/06/2025 8:07 AM [facility] SJHSZHFDZCMkfquednri92.4(L)35 - 47 %08/06/2025 8:07 AM [facility] CFTDQWUHXMZEE0467 - 100 fL08/06/2025 8:07 AM [facility] BCQZJBJUVKPKO53.027 - 34 pg08/06/2025 8:07 AM [facility] OJGPCUYQVXURZT12.832 - 36 g/dL08/06/2025 8:07 AM [facility] KLOKHFFQYSHSQ70.2(H)11.5 - 15 %08/06/2025 8:07 AM [facility] LABORATORYPlatelet Cdzll141685 - 450 X10^9/L110/06/2024 8:07 AM [facility] LABORATORYMPV8.27 - 12 fL08/06/2025 8:07 AM [facility] LABORATORYNeutrophils %78%08/06/2025 8:07 AM [facility] LABORATORYComment:This is an appended report. These results have been appended to a previously preliminary verified report.Lymphocytes %16 %08/06/2025 8:07 AM [facility]ORATORYComment:This is an appended report. These results have been appended to a previously preliminary verified report.Monocytes %5%08/06/2025 8:07 AM [facility] LABORATORYComment:This is an appended report. These results have been appended to a previously preliminary verified report.Eosinophils %1%08/06/2025 8:07 AM [facility] LABORATORYComment:This is an appended report. These results have been appended to a previously preliminary verified report. Neutrophils Absolute (M)16.7(H)1.5 - 6.6 X10^9/L110/06/2024 8:07 AM [facility] LABORATORYComment:This is an appended report. These results have been appended to a previously preliminary verified report.Lymphocytes Absolute3.41.0 - 3.5 X10^9/L110/06/2024 8:07 AM [facility] LABORATORYComment:This is an appended report. These results have been appended to a previously preliminary verified report.Monocytes Absolute1.1(H)0.0 - 0.9 X10^9/L110/06/2024 8:07 AM [facility] LABORATORYComment:This is an appended report. These results have been appended to a previously preliminary verified report.Eosinophils Absolute0.20.0 - 0.4 X10^9/L110/06/2024 8:07 AM [facility] LABORATORYComment:This is an appended report. These results have been appended to a previously preliminary verified report.Polychromasia1+08/06/2025 8:07 AM [facility] LABORATORYComment:This is an appended report. These results have been appended to a previously preliminary verified report.Differential TypeMANUAL ZVHOOFVFGWDU29/10/2025 8:07 AM [facility] LABORATORYComment: This is an appended report. These results have been appended to a previously preliminary verified report.Specimen (Source)Anatomical Location / Laterality Collection Method / VolumeCollection TimeReceived TimeBloodVenous blood / UnknownVenipuncture / Iajloen5508/06/2025 6:23 AM EST08/06/2025 7:03 AM EST Narrative Authorizing ProviderResult TypeResult StatusHala Magdaleno PASCUAL BLOOD ORDERABLESFinal ResultPerforming OrganizationAddressCity/State/ZIP CodePhone Number [facility] [address] [place] [address], [place] [phone] * (ABNORMAL) Comprehensive metabolic panel (08/05/2025 8:11 PM EST)Component ValueRef RangeTest MethodAnalysis TimePerformed AtPathologist SignatureSODIUM 973839 - 146 mmol/L110/05/2024 8:57 PM [facility] POTASSIUM3.3(L)3.5 - 5.0 mmol/L110/05/2024 8:57 PM [facility] RAYETUUMMEQKSFBTVI238(H)98 - 109 mmol/L110/05/2024 8:57 PM [facility] LABORATORYCARBON XCKXYPW02(L)22 - 32 mmol/L110/05/2024 8:57 PM [facility] LABORATORYANION GAP75 - 15 mmol/L110/05/2024 8:57 PM [facility] LABORATORYBLOOD UREA RYXXMJWL397 - 27 mg/dL08/05/2025 8:57 PM [facility] LABORATORYCREATININE0.680.40 - 1.00 mg/dL 08/05/2025 8:57 PM [facility] LABORATORYComment:METHOD TRACEABLE TO IDLA ROCRSZQVJVFLEEA818(H)65 - 99 mg/dL08/05/2025 8:57 PM [facility] LABORATORYCALCIUM8.0(L)8.5 - 10.5 mg/dL08/05/2025 8:57 PM [facility] LABORATORYTOTAL PROTEIN5.4(L)6.0 - 8.0 g/dL08/05/2025 8:57 PM [facility] LABORATORYALBUMIN3.0(L)3.2 - 5.3 g/dL08/05/2025 8:57 PM [facility] LABORATORYALKALINE XNJBTRVVOOU0169 - 130 U/L110/05/2024 8:57 PM [facility] QFIGTCLSJBRFZ04<=41 U/L110/05/2024 8:57 PM [facility] LABORATORYALT5<=31 U/L110/05/2024 8:57 PM [facility] LABORATORYBILIRUBIN,TOTAL0.60.3 - 1.2 mg/dL08/05/2025 8:57 PM [facility] LABORATORYEGFR Non-Race Dependent>90>=60 ml/min/1.73sq.m 08/05/2025 8:57 PM [facility] LABORATORYComment: Reported eGFR is based on the CKD-EPI 2020 equation that does not use a race coefficient. Specimen (Source)Anatomical Location / LateralityCollection Method / Volume Collection TimeReceived TimeBloodVenous blood / UnknownVenipuncture / Unknown 08/05/2025 8:11 PM EST08/05/2025 8:30 PM EST Narrative Authorizing ProviderResult TypeResult StatusHala Magdaleno PASCUAL BLOOD ORDERABLESFinal ResultPerforming OrganizationAddressCity/State/ZIP CodePhone Number [facility] [address] [place] [address], [place] [phone] * CT chest with contrast (08/05/2025 12:11 [...] 7:20 AM Authorizing ProviderResult TypeResult StatusAlexandria Lasalla [facility] ORDERABLESFinal Result * (ABNORMAL) CBC auto differential (08/05/2025 4:02 AM EST)ComponentValueRef RangeTest MethodAnalysis TimePerformed AtPathologist SwwrfwvzwFOH91.8(H)4 - 11 X10^9/L110/05/2024 6:43 AM [facility] LABORATORYRBC Count2.76 (L)3.8 - 5.2 X10^12/L110/05/2024 6:43 AM [facility] Hemoglobin8.0(L)11.7 - 15.5 g/dL08/05/2025 6:43 AM [facility] NFOPZAJYYZQqmmaarrum32.4(L)35 - 47 %08/05/2025 6:43 AM [facility] EBIBUYTPKNXRZ7061 - 100 fL08/05/2025 6:43 AM [facility] OHLIAEUACVUYZ57.127 - 34 pg08/05/2025 6:43 AM [facility] JKCNHNIWNGCSRW58.032 - 36 g/dL08/05/2025 6:43 AM [facility] XZEUPPLQIWVCR66.8(H)11.5 - 15 %08/05/2025 6:43 AM [facility] LABORATORYPlatelet Femrl240027 - 450 X10^9/L110/05/2024 6:43 AM [facility] LABORATORYMPV8.17 - 12 fL08/05/2025 6:43 AM [facility] LABORATORYNeutrophils %84.1%08/05/2025 6:43 AM [facility] LABORATORYComment:This is an appended report. These results have been appended to a previously preliminary verified report.Lymphocytes % 10.6%08/05/2025 6:43 AM [facility] LABORATORYComment:This is an appended report. These results have been appended to a previously preliminary verified report.Monocytes %5.1%08/05/2025 6:43 AM [facility] LABORATORYComment:This is an appended report. These results have been appended to a previously preliminary verified report.Eosinophils % 0.0%08/05/2025 6:43 AM [facility]Comment:This is an appended report. These results have been appended to a previously preliminary verified report.Basophils %0.2%08/05/2025 6:43 AM [facility]Comment:This is an appended report. These results have been appended to a previously preliminary verified report.Neutrophils Absolute (A)16.6(H)1.5 - 6.6 X10^9/L110/05/2024 6:43 AM [facility]ORYComment:This is an appended report. These results have been appended to a previously preliminary verified report.Lymphocytes Absolute2.1 1.0 - 3.5 X10^9/L110/05/2024 6:43 AM [facility] Comment:This is an appended report. These results have been appended to a previously preliminary verified report.Monocytes Absolute1.0(H)0.0 - 0.9 X10^9/L110/05/2024 6:43 AM [facility]ORYComment:This is an appended report. These results have been appended to a previously preliminary verified report.Eosinophils Absolute0.00.0 - 0.4 X10^9/L110/05/2024 6:43 AM [facility]ORYComment:This is an appended report. These results have been appended to a previously preliminary verified report.Basophils Absolute0.00.0 - 0.2 X10^9/L110/05/2024 6:43 AM [facility]ORYComment:This is an appended report. These results have been appended to a previously preliminary verified report.Differential TypeAUTOMATED PDSNJKBICRIG80/09/2025 6:43 AM [facility]ATORYComment:This is an appended report. These results have been appended to a previously preliminary verified report.Specimen (Source)Anatomical Location / LateralityCollection Method / VolumeCollection TimeReceived Time BloodVenous blood / UnknownVenipuncture / Pkgrqyr9808/05/2025 4:02 AM EST 08/05/2025 4:20 AM EST Narrative Authorizing ProviderResult TypeResult StatusKassidy Rejent AZLAB BLOOD ORDERABLESFinal ResultPerforming OrganizationAddressCity/State/ZIP CodePhone Number [facility] [address] [place] [address], * (ABNORMAL) Comprehensive metabolic panel (08/05/2025 4:02 AM EST)Component ValueRef RangeTest MethodAnalysis TimePerformed AtPathologist SignatureSODIUM 580803 - 146 mmol/L110/05/2024 4:52 AM [facility] POTASSIUM3.53.5 - 5.0 mmol/L110/05/2024 4:52 AM [facility] UHWMFARVRPTOYOCEOK830(H)98 - 109 mmol/L110/05/2024 4:52 AM [facility] LABORATORYCARBON WKUEMJO72(L)22 - 32 mmol/L110/05/2024 4:52 AM [facility]ORATORYANION GAP75 - 15 mmol/L110/05/2024 4:52 AM EST [facility] LABORATORYBLOOD UREA NAUIGLLI817 - 27 mg/dL08/05/2025 4:52 AM [facility]ATORYCREATININE0.690.40 - 1.00 mg/dL 08/05/2025 4:52 AM [facility]ATORYComment:METHOD TRACEABLE TO IDMS DNFEMRFSXVKGHUL271(H)65 - 99 mg/dL08/05/2025 4:52 AM EST [facility] LABORATORYCALCIUM8.0(L)8.5 - 10.5 mg/dL08/05/2025 4:52 AM [facility]ATORYTOTAL PROTEIN5.2(L)6.0 - 8.0 g/dL08/05/2025 4:52 AM [facility]ORYALBUMIN3.0(L)3.2 - 5.3 g/dL08/05/2025 4:52 AM [facility] LABORATORYALKALINE DIGDPAFMZFF2999 - 130 U/L110/05/2024 4:52 AM [facility] MNKUHLRTHGDGW23<=41 U/L110/05/2024 4:52 AM [facility] LABORATORYALT5<=31 U/L110/05/2024 4:52 AM [facility] LABORATORYBILIRUBIN,TOTAL0.70.3 - 1.2 mg/dL08/05/2025 4:52 AM [facility]ORYEGFR Non-Race Dependent>90>=60 ml/min/1.73sq.m 08/05/2025 4:52 AM [facility]ATORYComment: Reported eGFR is based on the CKD-EPI 2020 equation that does not use a race coefficient. Specimen (Source)Anatomical Location / LateralityCollection Method / Volume Collection TimeReceived TimeBloodVenous blood / UnknownVenipuncture / Unknown 08/05/2025 4:02 AM EST08/05/2025 4:20 AM EST Narrative Authorizing ProviderResult TypeResult StatusMicssivelisse PASCUAL BLOOD ORDERABLESFinal ResultPerforming OrganizationAddressCity/State/ZIP CodePhone Number [facility] [address] [place] [address], * Transfuse RBC:2 Units (08/04/2025 9:09 PM EST) Narrative Authorizing ProviderResult TypeResult StatusKassidy Rejent MDBLOOD TRANSFUSION ORDERABLESFinal Result * Transfuse RBC:2 Units (08/04/2025 9:09 PM EST) Narrative Authorizing ProviderResult TypeResult StatusKassidy Rejent MDBLOOD TRANSFUSION ORDERABLESFinal Result * (ABNORMAL) CBC auto differential (08/04/2025 12:18 PM EST)ComponentValueRef RangeTest MethodAnalysis TimePerformed AtPathologist JklcdxqenPFQ07.4(H)4 - 11 X10^9/L110/04/2024 2:03 PM [facility]ORATORYRBC Count3.12 (L)3.8 - 5.2 X10^12/L110/04/2024 2:03 PM [facility] Hemoglobin9.1(L)11.7 - 15.5 g/dL08/04/2025 2:03 PM [facility] EKSBBGDZVHLycmxwbxjk93.6(L)35 - 47 %08/04/2025 2:03 PM [facility] XXQMTRJGBTCJD8869 - 100 fL08/04/2025 2:03 PM [facility] UWINYVVZISOFF21.027 - 34 pg08/04/2025 2:03 PM [facility] USVHYIPTHWIRUX62.832 - 36 g/dL08/04/2025 2:03 PM [facility] YQPSYSDNEMJWM66.8(H)11.5 - 15 %08/04/2025 2:03 PM [facility] LABORATORYPlatelet Lfwpf127090 - 450 X10^9/L110/04/2024 2:03 PM [facility] LABORATORYMPV8.37 - 12 fL08/04/2025 2:03 PM [facility]ORYNeutrophils %88.9%08/04/2025 2:03 PM [facility]ATORYComment:This is an appended report. These results have been appended to a previously preliminary verified report.Lymphocytes % 8.7%08/04/2025 2:03 PM [facility]ORYComment:This is an appended report. These results have been appended to a previously preliminary verified report.Monocytes %1.7%08/04/2025 2:03 PM [facility]ORYComment:This is an appended report. These results have been appended to a previously preliminary verified report.Eosinophils % 0.4%08/04/2025 2:03 PM [facility]ORYComment:This is an appended report. These results have been appended to a previously preliminary verified report.Basophils %0.3%08/04/2025 2:03 PM [facility]ORYComment:This is an appended report. These results have been appended to a previously preliminary verified report.Neutrophils Absolute (A)12.8(H)1.5 - 6.6 X10^9/L110/04/2024 2:03 PM [facility]ORYComment:This is an appended report. These results have been appended to a previously preliminary verified report.Lymphocytes Absolute1.2 1.0 - 3.5 X10^9/L110/04/2024 2:03 PM [facility] Comment:This is an appended report. These results have been appended to a previously preliminary verified report.Monocytes Absolute0.20.0 - 0.9 X10^9/L 08/04/2025 2:03 PM [facility]ORYComment:This is an appended report. These results have been appended to a previously preliminary verified report.Eosinophils Absolute0.10.0 - 0.4 X10^9/L110/04/2024 2:03 PM [facility]ATORYComment:This is an appended report. These results have been appended to a previously preliminary verified report. Basophils Absolute0.00.0 - 0.2 X10^9/L110/04/2024 2:03 PM [facility]ORYComment:This is an appended report. These results have been appended to a previously preliminary verified report.Elliptocytes1+08/04/2025 2:03 PM [facility]ORYComment:This is an appended report. These results have been appended to a previously preliminary verified report.Differential TypeAUTOMATED CGPDJLLCGWIX14/08/2025 2:03 PM [facility]ATORYComment:This is an appended report. These results have been appended to a previously preliminary verified report.Specimen (Source)Anatomical Location / LateralityCollection Method / VolumeCollection TimeReceived TimeBloodVenous blood / UnknownVenipuncture / Cetlmtc7008/04/2025 12:18 PM EST08/04/2025 12:27 PM EST Narrative Authorizing ProviderResult TypeResult StatusAlexandria Lasalla DOLAB BLOOD ORDERABLESFinal ResultPerforming OrganizationAddressCity/State/ZIP CodePhone Number [facility] [address] [place] [address], [place] [phone] * Transfuse RBC:2 Units (08/04/2025 10:00 AM [...] AM EST)ComponentValueRef RangeTest Method Analysis TimePerformed AtPathologist ZsqitmswqBYNI43/08/2025 8:26 AM ESTTTH BB - GTTTVMWXBKtzxuegs94/08/2025 8:26 AM ESTTTH BB - JANETKYSpecimen (Source) Anatomical Location / LateralityCollection Method / VolumeCollection Time Received TimeBloodVenous blood / UnknownVenipuncture / Athymxw2808/04/2025 7:41 AM EST08/04/2025 8:14 AM EST Narrative Authorizing ProviderResult TypeResult StatusAleia K Catherine MDBLOOD BANK TEST ORDERABLESFinal ResultPerforming OrganizationAddressCity/State/ZIP CodePhone Number [facility] [address] [place] [address], [place] * Crossmatch RBC:Number of Units: 2 (08/04/2025 5:30 AM EST)ComponentValueRef RangeTest MethodAnalysis TimePerformed AtPathologist SignatureBlood component oexjU0519O69LJCGN BANK - WELLSKYUnit [id number] BANK - [place]LL[place] Unit ABOOBLOOD BANK - WELLSKYUnit RHNEGBLOOD BANK - WELLSKYCrossmatch CompatibleBLOOD BANK - WELLSKYStatus of unitTRANSFUSEDBLOOD BANK - WELLSKY Expiration [id number] BANK - WELLSKYBB Type Zirykoj1425GJMQP BANK - WELLSKYBlood component [id number] BANK - WELLSKYUnit number [id number] BANK - WELLSKYUnit ABOOBLOOD BANK - WELLSKYUnit RHNEG BLOOD BANK - WELLSKYCrossmatchCompatibleBLOOD BANK - WELLSKYStatus of unit TRANSFUSEDBLOOD BANK - WELLSKYExpiration [id number] BANK - [place]LL[place] BB Type Wosbspt2335TCYWG BANK - WELLSKYSpecimen (Source)Anatomical Location / LateralityCollection Method / VolumeCollection TimeReceived TimeBlood 08/04/2025 5:30 AM EST08/04/2025 5:47 AM EST Narrative Authorizing ProviderResult TypeResult StatusMicssivelisse Still MDBLOOD BANK PRODUCT ORDERABLESEdited Result - FinalPerforming OrganizationAddressCity/State/ZIP Code Phone Number BLOOD BANK - [place]LL[place]Y * Fibrinogen (08/04/2025 5:30 AM EST)ComponentValueRef RangeTest MethodAnalysis TimePerformed AtPathologist LonhhqolmZBBAPVFCSY104812 - 480 mg/dL08/04/2025 6:07 AM [facility] LABORATORYSpecimen (Source)Anatomical Location / LateralityCollection Method / VolumeCollection TimeReceived Time BloodVenous blood / UnknownVenipuncture / Wevaoad8608/04/2025 5:30 AM EST 08/04/2025 5:42 AM EST Narrative Authorizing ProviderResult TypeResult StatusKassidnolan Still MDLAB BLOOD ORDERABLESFinal ResultPerforming OrganizationAddressCity/State/ZIP CodePhone Number [facility] [address] [place] [id number], [place] [phone] * (ABNORMAL) APTT (08/04/2025 5:30 AM EST)ComponentValueRef RangeTest Method Analysis TimePerformed AtPathologist CuqznlkvuFAQL20(L)26 - 37 sec08/04/2025 6:07 AM [facility] LABORATORYSpecimen (Source)Anatomical Location / LateralityCollection Method / VolumeCollection TimeReceived Time BloodVenous blood / UnknownVenipuncture / Kkhxfob9308/04/2025 5:30 AM EST 08/04/2025 5:42 AM EST Narrative Authorizing ProviderResult TypeResult StatusMicssivelisse PASCUAL BLOOD ORDERABLESFinal ResultPerforming OrganizationAddressCity/State/ZIP CodePhone Number [facility] [address] [place] [address], * Protime & INR (08/04/2025 5:30 AM EST)ComponentValueRef RangeTest Method Analysis TimePerformed AtPathologist EsatmobzaJANTIIF61.89.8 - 13.2 sec 08/04/2025 6:07 AM [facility]ORATORYINR1.00.9 - 1.2 08/04/2025 6:07 AM [facility] LABORATORYSpecimen (Source) Anatomical Location / LateralityCollection Method / VolumeCollection Time Received TimeBloodVenous blood / UnknownVenipuncture / Yztumsn8308/04/2025 5:30 AM EST08/04/2025 5:42 AM EST Narrative Authorizing ProviderResult TypeResult StatusMicssivelisse Still [facility] BLOOD ORDERABLESFinal ResultPerforming OrganizationAddressCity/State/ZIP CodePhone Number [facility] [address] [place] [address], * Type and screen (08/04/2025 5:30 AM EST)ComponentValueRef RangeTest Method Analysis TimePerformed AtPathologist QhrikmbbmNQNO20/08/2025 8:20 AM ESTTTH BB - LKQWURWCYYufzcepx23/08/2025 8:20 AM ESTTTH BB - WELLSKYAntibody Screen Susdipkt22/08/2025 8:20 AM ESTTTH BB - WELLSKYSpecimen (Source)Anatomical Location / LateralityCollection Method / VolumeCollection TimeReceived Time BloodVenous blood / UnknownVenipuncture / Ycemdub3308/04/2025 5:30 AM EST 08/04/2025 5:46 AM EST Narrative Authorizing ProviderResult TypeResult StatusKassidy Rejent BLOOD BANK TEST ORDERABLESEdited Result - FinalPerforming OrganizationAddressCity/State/ZIP Code Phone Number [facility]NET[facility] MALDONADO [address] [place] [address], * (ABNORMAL) CBC auto differential (08/04/2025 5:30 AM EST)ComponentValueRef RangeTest MethodAnalysis TimePerformed AtPathologist FryeeswtcPCF72.7(H)4 - 11 X10^9/L110/04/2024 7:43 AM [facility]ATORYRBC Count2.10 (L)3.8 - 5.2 X10^12/L110/04/2024 7:43 AM [facility] Hemoglobin5.8(LL)11.7 - 15.5 g/dL08/04/2025 7:43 AM [facility] DJRAEHEEFTCsggglmblg09.0(L)35 - 47 %08/04/2025 7:43 AM [facility] NDKGWOKAYMOTH7043 - 100 fL08/04/2025 7:43 AM [facility] SKLTPOOTDHXKR93.727 - 34 pg08/04/2025 7:43 AM [facility] ENXRMYLJHUKKLF27.532 - 36 g/dL08/04/2025 7:43 AM [facility] KVCKTVNFAKIVZ32.3(H)11.5 - 15 %08/04/2025 7:43 AM [facility] LABORATORYPlatelet Oyorz717570 - 450 X10^9/L110/04/2024 7:43 AM [facility]ATORYMPV8.37 - 12 fL08/04/2025 7:43 AM [facility] LABORATORYNeutrophils %82%08/04/2025 7:43 AM [facility]ATORYComment:This is an appended report. These results have been appended to a previously preliminary verified report. Lymphocytes %16%08/04/2025 7:43 AM [facility] Comment:This is an appended report. These results have been appended to a previously preliminary verified report.Monocytes %2%08/04/2025 7:43 AM EST [facility]ORYComment:This is an appended report. These results have been appended to a previously preliminary verified report. Neutrophils Absolute (M)11.2(H)1.5 - 6.6 X10^9/L110/04/2024 7:43 AM [facility]ORYComment:This is an appended report. These results have been appended to a previously preliminary verified report.Lymphocytes Absolute2.21.0 - 3.5 X10^9/L110/04/2024 7:43 AM [facility]ORYComment:This is an appended report. These results have been appended to a previously preliminary verified report.Monocytes Absolute0.30.0 - 0.9 X10^9/L110/04/2024 7:43 AM [facility]ORYComment:This is an appended report. These results have been appended to a previously preliminary verified report.Elliptocytes1+08/04/2025 7:43 AM [facility]ATORYComment:This is an appended report. These results have been appended to a previously preliminary verified report.Differential TypeMANUAL KCVCKOLNLPJU13/08/2025 7:43 AM [facility]ORYComment:This is an appended report. These results have been appended to a previously preliminary verified report.Specimen (Source)Anatomical Location / LateralityCollection Method / VolumeCollection TimeReceived Time BloodVenous blood / UnknownVenipuncture / Bkrawza5008/04/2025 5:30 AM EST 08/04/2025 5:42 AM EST Narrative Authorizing ProviderResult TypeResult StatusKassidy Rejent [facility] BLOOD ORDERABLESFinal ResultPerforming OrganizationAddressCity/State/ZIP CodePhone Number [facility] [address] [place] [address], * (ABNORMAL) Comprehensive metabolic panel (08/04/2025 5:30 AM EST)Component ValueRef RangeTest MethodAnalysis TimePerformed AtPathologist SignatureSODIUM 732346 - 146 mmol/L110/04/2024 6:15 AM [facility] POTASSIUM3.63.5 - 5.0 mmol/L110/04/2024 6:15 AM [facility] BGQCYVNBGXDUJPDRTT067(H)98 - 109 mmol/L110/04/2024 6:15 AM [facility] LABORATORYCARBON JCNQEVF69(L)22 - 32 mmol/L110/04/2024 6:15 AM [facility] LABORATORYANION GAP95 - 15 mmol/L110/04/2024 6:15 AM [facility] LABORATORYBLOOD UREA AGTFEAAB368 - 27 mg/dL08/04/2025 6:15 AM [facility] LABORATORYCREATININE0.600.40 - 1.00 mg/dL 08/04/2025 6:15 AM [facility]ATORYComment:METHOD TRACEABLE TO IDLA AITHMSGCVZXVUYV604(H)65 - 99 mg/dL08/04/2025 6:15 AM [facility] LABORATORYCALCIUM7.8(L)8.5 - 10.5 mg/dL08/04/2025 6:15 AM [facility] LABORATORYTOTAL PROTEIN5.4(L)6.0 - 8.0 g/dL08/04/2025 6:15 AM [facility] LAB[facility]ATORYALBUMIN3.1(L)3.2 - 5.3 g/dL08/04/2025 6:15 AM [facility] LABORATORYALKALINE PFXZXSQMUCW1442 - 130 U/L110/04/2024 6:15 AM [facility] FKEMJDWSYHRKI94<=41 U/L110/04/2024 6:15 AM [facility] LABORATORYALT5<=31 U/L110/04/2024 6:15 AM [facility] LABORATORYBILIRUBIN,TOTAL0.30.3 - 1.2 mg/dL08/04/2025 6:15 AM [facility]ORYEGFR Non-Race Dependent>90>=60 ml/min/1.73sq.m 08/04/2025 6:15 AM [facility]ATORYComment: Reported eGFR is based on the CKD-EPI 2020 equation that does not use a race coefficient. Specimen (Source)Anatomical Location / LateralityCollection Method / Volume Collection TimeReceived TimeBloodVenous blood / UnknownVenipuncture / Unknown 08/04/2025 5:30 AM EST08/04/2025 5:42 AM EST Narrative Authorizing ProviderResult TypeResult StatusKassidy Cheko PASCUAL BLOOD ORDERABLESFinal ResultPerforming OrganizationAddressCity/State/ZIP CodePhone Number [facility] [address] [place] [address], documented in this encounter Visit Diagnoses Not [...] 08/05/25 at 1621 Given08/09/2025 9:44 AM EST1,000 xeEcahd3908/06/2025 7:58 AM EST1,000 mg bisacodyL (DULCOLAX) suppository [...] First dose on [place] 08/09/25 at 1030 Indications:IrfmlbKmrbx58/13/2025 12:05 PM EST20 mg glucagon HCL injection [...] Look-alike/sound-alike medication - verify indication for use. lidocaine-EPINEPHrine (XYLOCAINE W/EPI) 1 %-1:831108 injection As needed, Starting on Tu08/07/25 at 1611, Intra-op Given08/07/2025 4:11 PM EST14 mLOperative Site magnesium hydroxide (MILK OF MAGNESIA) suspension 30 mL 30 mL, oral, Daily, First dose on Wed08/08/25 at 0900, Shake well. ondansetron (PF) (ZOFRAN) injection 8 mg 8 mg, intravenous, Every 8 hours PRN, nausea, vomiting, Starting on Wed08/06/25 at 1145, Intravenous administration preferred to be given over 2-5 minutes., Intravenous Specific Administration: IV Push Given08/09/2025 4:27 PM EST8 kfGfnhn4308/09/2025 4:53 AM EST8 zdNmlxd1208/08/2025 7:41 PM EST8 mg oxyCODONE (ROXICODONE) immediate [...] use. Immediate release. Given08/09/2025 4:53 AM EST5 hjCwfet7108/08/2025 7:41 PM EST5 zhLbtzk2108/08/2025 2:49 PM EST5 mg potassium chloride (K-TAB,KLOR-CON) [...] 1 hour. New Bag08/06/2025 2:09 AM EST10 qZb645 mL/hrNew Bag08/06/2025 12:57 AM EST10 mEq 100 mL/hrNew Bag08/05/2025 11:45 PM EST10 tMo892 mL/hr prochlorperazine (COMPAZINE) injection 5 mg 5 mg, intravenous, Every 8 hours PRN, nausea, vomiting, Starting on Wed08/05/25 at 2106, When administered via IV Push, do not exceed 5 mg per minute Given08/07/2025 2:14 AM EST5 gwEqjzy5808/06/2025 7:59 AM EST5 aqKxita7608/05/2025 9:15 PM EST5 mg senna (SENOKOT) tablet 8.6 mg 8.6 mg, oral, 2 times daily, First dose on Wed08/08/25 at 0900 08/09/2025 9:43 AM EST8.6 otBevse4608/08/2025 9:27 PM EST8.6 mgGiven 08/08/2025 9:31 AM EST8.6 mg simethicone (MYLICON) chewable tablet 80 mg 80 mg, oral, 4 times daily PRN, flatulence, Starting on Wed08/05/25 at 1939 08/08/2025 12:43 PM EST80 ytGmyah5408/05/2025 8:55 PM EST80 mg sodium chloride 0.9 [...] Wed08/04/25 at 0900 08/09/2025 9:47 AM EST3 yQWjubu3608/08/2025 9:27 PM EST3 jTHbocx0908/08/2025 9:31 AM EST3 mL sodium chloride 0.9 % flush bag 25 mL, intravenous, at 100 mL/hr, Administer over 15 Minutes, As needed, line care, line care afterIVPB administration, Starting on Wed08/04/25 at 0336 sodium chloride 0.9 % flush bag 25 mL, intravenous, at 100 mL/hr, Administer over 15 Minutes, As needed, line care, line care afterIVPB administration, Starting on Wed08/04/25 at 1031 timolol (TIMOPTIC) 0.5 % ophthalmic solution 1 drop 1 drop, both eyes, 2 times daily, First dose on Wed08/04/25 at 1400 08/09/2025 9:47 AM EST1 limlEgofp53/12/2025 9:28 PM EST1 dropGiven 08/08/2025 9:31 AM [...] Parker RN - Reason: Patient/family refused) * 09 (Not Given - Provider: Akiko Torres RN - Reason: Patient/family refused) senna (SENOKOT) tablet 8.6 mg 8.6 mg, oral, 2 times daily, First dose on Wed08/08/25 at 0900 * 930 (Given - Provider: Amber Parker RN) * 2126 (Given - Provider: Joana Ibarra RN) * 942 (Given - Provider: Akiko Torres RN) sodium chloride 0.9 % flush 3 mL 3 mL, intravenous, Every 12 hours scheduled, First dose on 08/04/25 at 0900 * 08 (Given - Provider: Amber Parker RN) * 1133 (NOV Hold - Provider: User Epic - Reason: Patient not available) * 1743 (NOV Unhold - Provider: User Epic) * [...] when infusion is complete: Stop Bag]) Medication Order/ acetaminophen (TYLENOL EXTRA STRENGTH) tablet 1,000 mg 1,000 mg, oral, Every 6 hours PRN, moderate pain - pain scale 4-6, mild pain - pain scale 1-3, temperature greater than 38 C, headaches, Starting on Wed08/05/25 at 1621 * 1134 (MAR Hold - Provider: User Epic - Reason: Patient not available) * 1744 ([facility] Unhold - Provider: User Epic) * 0944 [...] - Reason: Patient not available) * 1744 ([facility] Unhold - Provider: User Epic) dextrose (GLUTOSE) 40 % gel 15 g 15 g, oral, As needed, low blood sugar, blood glucose less than 70 mg/dL, Starting on 08/04/25 at 1031, If patient conscious and taking PO. If blood glucose is not greater than 70 mg/dL after initial treatment, repeat treatment. * 1134 ([facility] Hold - Provider: User Epic - Reason: Patient not available) * 1744 ([facility] Unhold - Provider: User Epic) [...] after initial treatment, repeat treatment. * 1134 ([facility] Hold - Provider: User Epic - Reason: Patient not available) * 1744 ([facility] Unhold - Provider: User Epic) [...] after initial treatment, repeat treatment. * 1134 ([facility] Hold - Provider: User Epic - Reason: Patient not available) * 1744 ([facility] Unhold - Provider: User Epic) [...] VESICANT (RED) Warning: HYPERTONIC solution. * 1134 ([facility] Hold - Provider: User Epic - Reason: Patient not available) * 1744 ([facility] Unhold - Provider: User Epic) [...] VESICANT (RED) Warning: HYPERTONIC solution. * 1134 ([facility] Hold - Provider: User Epic - Reason: Patient not available) * 1744 ([facility] Unhold - Provider: User Epic) [...] after initial treatment, repeat treatment. * 1134 ([facility] Hold - Provider: User Epic - Reason: Patient not available) * 1744 ([facility] Unhold - Provider: User Epic) [...] after initial treatment, repeat treatment. * 1134 ([facility] Hold - Provider: User Epic - Reason: Patient not available) * 1744 ([facility] Unhold - Provider: User Epic) HYDROmorphone (DILAUDID) injection 0.5 mg 0.5 mg, intravenous, Every 4 hours PRN, severe pain - pain scale 7-10, breakthrough pain, Starting on 08/04/25 at 1033, If IV push, administer over over 2 to 3 minutes. Look-alike/sound-alike medication - verify indication for use. * 1134 ([facility] Hold - Provider: User Epic - Reason: Patient not available) * 1744 ([facility] Unhold - Provider: User Epic) HYDROmorphone (PF) (DILAUDID) injection 0.5 mg 0.5 mg, intravenous, Every 4 hours PRN, severe pain - pain scale 7-10, breakthrough, give chava first, Starting on 08/04/25 at 0618, If IV push, administer over over 2 to 3 minutes. Look-alike/sound-alike medication - verify indication for use. * 1134 ([facility] Hold - Provider: User Epic - Reason: Patient not available) * 1744 ([facility] Unhold - Provider: User Epic) lidocaine PF (XYLOCAINE) 10 mg/mL (1 %) injection 1 mg (CANCELED) 1 mg (0.1 mL), intradermal, As needed, times 1 per IV attempt for IV start pain control, Starting on Wed08/07/25 at 1238, Pre-op * 1340 (Given - Provider: EDIN Inman) lidocaine-EPINEPHrine (XYLOCAINE W/EPI) 1 %-[id number] injection (CANCELED) As needed, Starting on Wed08/07/25 at 1611, Intra-op * 1611 (Given - Provider: Dennis Monson MD) ondansetron (PF) (ZOFRAN) injection 8 mg 8 mg, intravenous, Every 8 hours PRN, nausea, vomiting, Starting on 08/06/25 at 1145, Intravenous administration preferred to be given over 2-5 minutes., Intravenous Specific Administration: IV Push * 0837 (Given - Provider: Amber Parker RN) * 1134 ([facility] Hold - Provider: User Epic [...] - Provider: Amber Parker RN) * 1134 ([facility] Hold - Provider: User Epic - Reason: Patient not available) * 1744 ([facility] Unhold - Provider: User Epic) [...] - Provider: Amber Parker RN) * 1134 ([facility] Hold - Provider: User Epic - Reason: Patient not available) * 1744 ([facility] Unhold - Provider: User Epic) * 1755 (Given - Provider: Amber Parker RN) * 0431 (Given - Provider: Joana Ibarra RN) * 1449 (Given - Provider: Amber Parker RN) * 194 (Given - Provider: Joana Ibarra, RN) * [...] Do not crush or chew. * 1134 ([facility] Hold - Provider: User Epic - Reason: Patient not available) * 1744 ([facility] Unhold - Provider: User Epic) [...] policy and monitor potassium levels * 1134 ([facility] Hold - Provider: User Epic - Reason: Patient not available) * 1744 ([facility] Unhold - Provider: User Epic) [...] a minimum of 1 hour. * 1134 ([facility] Hold - Provider: User Epic - Reason: Patient not available) * 1744 ([facility] Unhold - Provider: User Epic) prochlorperazine (COMPAZINE) injection 5 mg 5 mg, intravenous, Every 8 hours PRN, nausea, vomiting, Starting on 08/05/25 at 2106, When administered via IV Push, do not exceed 5 mg per minute * 0214 (Given - Provider: Akiko Weller RN) * 1134 ([facility] Hold - Provider: User Epic - Reason: Patient not available) * 1744 ([facility] Unhold - Provider: User Epic) simethicone (MYLICON) chewable tablet 80 mg 80 mg, oral, 4 times daily PRN, flatulence, Starting on 08/05/25 at 1939 * 1134 ([facility] Hold - Provider: User Epic - Reason: Patient not available) * 1744 ([facility] Unhold - Provider: User Epic) * 1243 (Given - Provider: Amber Parker RN) sodium chloride 0.9 % flush 10 mL 10 mL, intravenous, As needed, line care, Starting on 08/05/25 at 1158 * 1134 ([facility] Hold - Provider: User Epic - Reason: Patient not available) * 1744 ([facility] Unhold - Provider: User Epic) sodium chloride 0.9 % flush 3 mL 3 mL, intravenous, As needed, line care, before and after each intermittent use, Starting on 08/04/25 at 0336 * 1134 ([facility] Hold - Provider: User Epic - Reason: Patient not available) * 1744 ([facility] Unhold - Provider: User Epic) sodium chloride 0.9 % flush bag 25 mL, intravenous, at 100 mL/hr, Administer over 15 Minutes, As needed, line care, line care afterIVPB administration, Starting on 08/04/25 at 0336 * 1134 ([facility] Hold - Provider: User Epic - Reason: Patient not available) * 1744 ([facility] Unhold - Provider: User Epic) sodium chloride 0.9 % flush bag 25 mL, intravenous, at 100 mL/hr, Administer over 15 Minutes, As needed, line care, line care afterIVPB administration, Starting on 08/04/25 at 1031 * 1134 ([facility] Hold - Provider: User Epic - Reason: Patient not available) * 1744 ([facility] Unhold - Provider: User Epic) [...] MemberRelationshipSpecialtyStart DateEnd Date Ann Marie Sidhu MD [address] [place] [address] PCP - GeneralFamily Pdcmzcpx91/9/25documented as of this encounter
--- OUTSIDE RECORDS SUMMARY | 2025-08-07 12:30 | XMS_ITS | Encounter Summary ---
Author Organization [facility] tem Address [id number] [address] [place] [address] Care Team Providers Care Wildlife Management Professor Name Role Phone Ann Marie Sidhu MD Primary Care Provider [phone] Reason for Visit * Auth/Cert (Routine)SpecialtyDiagnoses / ProceduresReferred By ContactReferred To Contact Diagnoses Pelvic mass Vagina bleeding Vaginal bleeding pelvic mass/vaginal bleeding Dustin Santiago MD [address] [facility] [place] [address] Phone: tel: fax: Referral IDStatusReasonStart DateExpiration DateVisits RequestedVisits [id number] Encounter Details DateTypeDepartmentCare Team (Latest Contact Info)Ixjnpnzpzey35/11/2025 12:30 PM EST - 08/07/2025 3:[address] [facility] [address] [place] [phone] Dennis Monson MD [address] [facility] [place] [address] DAVINCI HYSTERECTOMY SALPINGO OOPHORECTOMY/RADICAL INTRAPERITONEAL TUMOR DEBULKING Surgery Details Date/TimeStatusLocationORServicePatient ClassCase ClassCase TypeTrauma Case? 08/07/2025 12:30 PMPostedTOLEDO SURGERYOR 09GynecologyInpatientElectivePanel 1 ProcedureLRBAnCampbell County Memorial [facility] - [place] ClassCommentsDAVINCI HYSTERECTOMY SALPINGO OOPHORECTOMY/RADICAL INTRAPERITONEAL TUMOR DEBULKINGBilateralGeneralClean Contaminated Panel 2 ProcedureLRCastle Rock Hospital District ClassCommentsFLEXIBLE SIGMOIDOSCOPYN/A GeneralClean Contaminated SurgeonSurgeon [place], Manuel Ryder, TUByswhukNwtanaj2Ehfiap, Dennis Carbajal, MDPrimaryGynecology1 Case Notes [facility] 2W MOVE UP TO 1130 Special Needs MOVE UP TO 1130 documented in this encounter Social History Tobacco UseTypesPacks/DayYears UsedDateSmoking Tobacco: NeverSmokeless Tobacco: Never Tobacco Cessation:Counseling Given: Not Answered Alcohol UseStandard Drinks/WeekCommentsNever0 (1 standard drink = 0.6 oz pure alcohol)PHQ-2AnswerDate RecordedTotal Bbrik47910/04/2024UDIT-CAnswerDate Recorded Q1: How often do you have [...] RecordedIn the past 12 months has the [employer], gas, oil, or water [employer] threatened to shut off services in your [...] InformationValueDate RecordedSex Assigned at BirthNot on fileLegal BizCavjto91/08/2025 12:05 AM ESTGender IdentityNot on fileSexual OrientationNot on filedocumented as of this encounter Last Filed Vital Signs Vital SignReadingTime TakenCommentsBlood Afavjagq350/6208/07/2025 11:57 AM EST Mcxnf721708/07/2025 11:57 AM REDGkunpzurdre26.1 ??C (98.8 ??F)08/07/2025 11:57 AM ESTRespiratory Omch360510/07/2024 11:57 AM ESTOxygen Lxrilozayl56%08/07/2025 11:57 AM ESTInhaled Oxygen Concentration--Oacfui80 kg (167 lb 8.8 oz)08/07/2025 2:12 AM ADEDzbrog362.5 cm (5' 2.01 )08/04/2025 8:39 AM ESTBody Mass Index30.23 08/04/2025 8:39 AM ESTdocumented in this encounter Functional Status * QuestionAnswerDate of AssessmentAuthorFunctional RpyhvqPrrigurewbk75/09/2025 11:52 AM Milagros Bolden RN * AUDIT-C ScoreAnswerDate of SnuvelqgozUrexcq842/08/2025 3:44 PM Denice Schultz RN * QuestionAnswerDate of AssessmentAuthorQ1: How often do you have a drink containing alcohol?Never08/04/2025 3:44 PM Denice Schultz RNQ2: How many drinks containing alcohol do you have on a typical day when you are drinking?Patient does not drink08/04/2025 3:44 PM Denice Schultz RNQ3: How often do you have six or more drinks on one occasion?Never08/04/2025 3:44 PM Denice Shcultz RN documented as of this encounter Discharge [...] history on file. who initially presented to [facility] for vaginal bleeding. A pelvic ultrasound and CT abdomen were performed that showed a uterine mass and enlarged lymph nodes. The patient was transferred to [facility]. Upon arrival speculumexam showed 1 large [...] Your Medications These medications were sent to [facility] - [place], [place] - [address] [facility] [facility] [address] acetaminophen 500 mg tablet famotidine 20 mg [...] Postop visit on 08/21 Jalyn Camp MD BOBBIN TRUCKER Resident, PGY-3 Cosigned by Sherry Cuellar MD [...] changes made as necessary. Jalyn Camp MD Cuff Setter Lockstitch Resident PGY-2 08/09/25 6:44 AM Cosigned by [...] changes made as necessary. Jalyn Camp MD Cuff Setter Lockstitch Resident PGY-2 08/08/25 6:38 AM Cosigned by Dennis Monson MD at 08/08/2025 8:06 AM EST Associated attestation - eDnnis Monson MD - 08/08/2025 8:06 AM EST [...] Camp MD - 08/07/2025 6:39 AM [facility] Date: [...] -Hgb 7.2 (OSH)>5.8>2u pRBC>9.1>8>8.3>8.3 Jalyn Camp MD Cuff Setter Lockstitch Resident, PGY-3 If questions or concerns, please contact via GynOn pager at [phone]. Cosigned by Dennis Monson MD at 08/07/2025 [...] Ramirez MD - 08/06/2025 7:09 AM EST [facility] Daily Progress Note Admission Date: 08/04/2025 Hospital [...] and hold food down. Nusrat Ramirez MD Cuff Setter Lockstitch Resident, PGY-1 If questions or concerns, please contact via [facility] pager at [phone]. Cosigned by Sherry Cuellar MD at 08/06/2025 [...] Still MD - 08/05/2025 6:24 AM EST [facility] Daily Progress Note Admission Date: 08/04/2025 Hospital [...] home today with close follow up with Office Machine Embossograph Operator Onc for pathology review and treatment planning. Annita Still MD Cuff Setter Lockstitch Resident, PGY-2 If questions or concerns, please contact via GynOn pager at [phone]. Cosigned by Dustin Santiago MD at 08/05/2025 [...] 08/04/2025 Performed by Dustin Santiago MD at [facility] Allergies Allergen Reactions Latex Hives and [...] 80 mg, oral, 4x Daily PRN, Brittnee Sma MD, 80 mg at 08/05/252054 [Transfer Hold] [...] flush 3 mL, 3 mL, intravenous, Q12H [facility]ITALMahendra MD [Transfer Hold] sodium chloride 0.9 % [...] have an obstructing tumor. Manuel Busby MD, [facility] General Surgeons Minimally Invasive Robotic Surgery Board Certified in General Surgery Board Certified in Critical Care Office: [phone] Email: [email or web address] Thank you for allowing me to participate in the care of your patient. Please feel free to contact me with any questions or concerns. [phone] * Dennis Monson MD - 08/07/2025 11:26 AM EST HISTORY AND PHYSICAL INTERVAL NOTE: Eunice Anderson 1955 [id number] H&P reviewed. The patient was examined and there are no changes to the H&P. Dennis Monson MD Source Note - Jalyn Camp MD - 08/07/2025 6:39 AM EST [facility] Admission Date: [...] -Hgb 7.2 (OSH)>5.8>2u pRBC>9.1>8>8.3>8.3 Jalyn Camp MD Cuff Setter Lockstitch Resident, PGY-3 If questions or concerns, please contact via GynOn pager at [phone]. Cosigned by Dennis Monson MD at 08/07/2025 11:22 AM EST * Annita Still MD - 08/04/2025 3:38 AM EST Gynecology Oncology Consultation Date of Admission: 08/04/2025 3:32 AM Chief Complaint : Uterine mass, vaginal bleeding History of Present Illness : Eunice Anderson is a 70 y.o. female with PMH of glaucoma who presents as a transport from [facility] for vaginal bleeding. Patient reports vaginal spotting that began 2 days ago. She reports feeling weak, lightheaded, and nauseous 1 day ago while at work and went to the bathroom where she filled the toilet with blood. Patient was [facility] where [facility] that revealed a likely uterine mass and possible enlarged lymph node. Hgb at the time was 9mg/dl and vaginal bleeding was stable. Patient was referred to OBGYN outpatient for close follow up. She reports worsening vaginal bleeding overnight along with weakness, lightheadedness, nausea. She also reports intermittent painful cramps and passage of clots. She was taken to [facility] for evaluation. Per report, the patient was vitally stable, pale, and hgb was 7.2mg/dl. On exam, 1 large clot was cleared from the vagina and another remained at the cervical os with a slow trickle of active bleeding. Patient was given IVF and decision was made to transport patient to [facility] for Gynecology Oncology evaluation for vaginal bleeding in the setting of a pelvic mass. Patient reports she has not seen a pathological technician in 5 years. Denies prior gynecologic surgery. [...] Discussed with Dr. Santiago Annita Still MD Cuff Setter Lockstitch Resident, PGY-2 If questions or concerns, please contact via GynOn pager at [phone]. Cosigned by Dustin Santiago MD at 08/04/2025 [...] INTERVENTIONS: 1. Encourage patient or legal guest service representative to report early pain and [...] policy 9. Teach patient or legal guest service representative interventions for comforting 08/09/2025 1726 [...] the bedside 7. Instruct patient/ patient guest service representative about use of safety devices 8. Include patient/ patient guest service representative in decisions related to safety [...] technique. 7. Identify and instruct patient/patient guest service representative in use of appropriate isolation precautionsfor identified infection/symptoms. 8. Provide and discuss with patient/patient guest service representative on educational MDRO sheet. 9. Encourage and monitor nutritional status daily and consult assisted living manager if indicated. 10. Implement neutropenic guidelines as needed. 08/09/20251725 by JORDYN Wharton Outcome: Adequate for Discharge 08/09/20251228 by JORDYN Wharton Outcome: Progressing Note: Evaluation of progress towards goal: Patient afebrile, vital signs stable at this time. Continuing to monitor. Problem: Knowledge Deficit Goal: Patient/patient guest service representative demonstrates understanding of disease process, [...] Score of =/> 25 or indicated by [facility] Re[facility] Assessment Goal: Patient should be free from fall Description: Interventions: 1. [place] to environment 2. Hourly rounds addressing the [...] footwear 11. Teach patient and patient guest service representative to maintain environment for safety [...] walker) within reach 19. Request patient guest service representative bring adaptive equipment/mobility aids from home or obtain and provide as needed 20. Consult pharmacy regarding effects of med's affecting mobility, cognition, and alternatives 21. Obtain physician order for PT if risk factors associated with mobility are present 22. Obtain physician order for OT as appropriate 23. Utilize diversional activities 24. Educate patient and patient guest service representative how to maintain a safe environment during visitationtimes (notify nurse prior to leaving bedside) 25. Consider appropriateness of medical or non-biomedical engineering director 26. Set up voiding schedule as appropriate [...] supplement as ordered 13. Collaborate with clinical assisted living manager 14. Include patient/ patient's guest service representative in decisions related to nutrition [...] ew also shows new medication use. * PT/OT/DIE CAST DIE MAKER - Neo Hoskins PTA - 08/09/2025 2:07 [...] INTERVENTIONS: 1. Encourage patient or legal guest service representative to report early pain and [...] policy 9. Teach patient or legal guest service representative interventions for comforting Outcome: Progressing [...] the bedside 7. Instruct patient/ patient guest service representative about use of safety devices 8. Include patient/ patient guest service representative in decisions related to safety [...] technique. 7. Identify and instruct patient/patient guest service representative in use of appropriate isolation precautionsfor identified infection/symptoms. 8. Provide and discuss with patient/patient guest service representative on educational MDRO sheet. 9. Encourage and monitor nutritional status daily and consult assisted living manager if indicated. 10. Implement neutropenic guidelines as needed. Outcome: Progressing Note: Evaluation of progress towards goal: Patient afebrile, vital signs stable at this time. Continuing to monitor. Problem: Knowledge Deficit Goal: Patient/patient guest service representative demonstrates understanding of disease process, [...] be free from fall Description: Interventions: 1. [place] to environment 2. Hourly rounds addressing the [...] footwear 11. Teach patient and patient guest service representative to maintain environment for safety [...] walker) within reach 19. Request patient guest service representative bring adaptive equipment/mobility aids from home or obtain and provide as needed 20. Consult pharmacy regarding effects of med's affecting mobility, cognition, and alternatives 21. Obtain physician order for PT if risk factors associated with mobility are present 22. Obtain physician order for OT as appropriate 23. Utilize diversional activities 24. Educate patient and patient guest service representative how to maintain a safe environment during visitationtimes (notify nurse prior to leaving bedside) 25. Consider appropriateness of medical or non-biomedical engineering director 26. Set up voiding schedule as appropriate [...] INTERVENTIONS: 1. Encourage patient or legal guest service representative to report early pain and [...] policy 9. Teach patient or legal guest service representative interventions for comforting Outcome: Progressing [...] the bedside 7. Instruct patient/ patient guest service representative about use of safety devices 8. Include patient/ patient guest service representative in decisions related to safety [...] technique. 7. Identify and instruct patient/patient guest service representative in use of appropriate isolation precautionsfor identified infection/symptoms. 8. Provide and discuss with patient/patient guest service representative on educational MDRO sheet. 9. Encourage and monitor nutritional status daily and consult assisted living manager if indicated. 10. Implement neutropenic guidelines as needed. Outcome: Progressing Note: Evaluation of progress towards goal: No signs or symptoms of infection Problem: Knowledge Deficit Goal: Patient/patient guest service representative demonstrates understanding of disease process, [...] Score of =/> 25 or indicated by [facility] Re[facility] Assessment Goal: Patient should be free from fall Description: Interventions: 1. [place] to environment 2. Hourly rounds addressing the [...] footwear 11. Teach patient and patient guest service representative to maintain environment for safety [...] walker) within reach 19. Request patient guest service representative bring adaptive equipment/mobility aids from home or obtain and provide as needed 20. Consult pharmacy regarding effects of med's affecting mobility, cognition, and alternatives 21. Obtain physician order for PT if risk factors associated with mobility are present 22. Obtain physician order for OT as appropriate 23. Utilize diversional activities 24. Educate patient and patient guest service representative how to maintain a safe environment during visitationtimes (notify nurse prior to leaving bedside) 25. Consider appropriateness of medical or non-biomedical engineering director 26. Set up voiding schedule as appropriate [...] supplement as ordered 13. Collaborate with clinical assisted living manager 14. Include patient/ patient's guest service representative in decisions related to nutrition [...] YESENIA SHAIKH RN 08/08/25 10:07 AM * PT/OT/DIE CAST DIE MAKER - Toya Ortiz OT/Steve - 08/08/2025 9:33 [...] 08/07/2025 Performed by Dennis Monson MD at [facility] DILATION CURETTAGE N/A 08/04/2025 Performed by Dustin Santiago MD at [facility] FLEXIBLE SIGMOIDOSCOPY N/A 08/07/2025 Performed by Manuel Busby MD at [facility] No chief complaint on file. 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 Hand Dominance: Right [...] Patient will perform bed mobility with Modified [place]ley Dates: Start: 08/08/25 Expected End: 09/06/25 Description: Goal Description: Disciplines: OT Problem: Functional Mobility Dates: Start: 08/08/25 Disciplines: OT Goal: Patient will perform functional mobility with Modified [place]ley Dates: Start: 08/08/25 Expected End: 09/06/25 Description: [...] Goal: Patient will perform transfers with Modified [place]ley Dates: Start: 08/08/25 Expected End: 09/06/25 Description: Goal Description: Disciplines: OT Occupational Therapy Care Plan (Resolved) There are no resolved problems. Principal Problem: Pelvic mass Active Problems: Vagina bleeding Vaginal bleeding * PT/OT/DIE CAST DIE MAKER - Ginny Mcghee PT - 08/08/2025 9:31 [...] 08/07/2025 Performed by Dennis Monson MD at [facility] DILATION CURETTAGE N/A 08/04/2025 Performed by Dustin Santiago MD at [facility] FLEXIBLE SIGMOIDOSCOPY N/A 08/07/2025 Performed by Manuel Busby MD at [facility] No chief complaint on file. 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 Encourage patient or legal guest service representative to report early pain and [...] policy 9. Teach patient or legal guest service representative interventions for comforting Outcome: Progressing [...] the bedside 7. Instruct patient/ patient guest service representative about use of safety devices 8. Include patient/ patient guest service representative in decisions related to safety [...] technique. 7. Identify and instruct patient/patient guest service representative in use of appropriate isolation precautionsfor identified infection/symptoms. 8. Provide and discuss with patient/patient guest service representative on educational MDRO sheet. 9. Encourage and monitor nutritional status daily and consult assisted living manager if indicated. 10. Implement neutropenic guidelines as needed. Outcome: Progressing Note: Evaluation of progress towards goal: Pts VSS and labs WNL, no S/S of infection, all insertionsites clean dry and intact, pt and staff utilize proper handwashing technique. Problem: Knowledge Deficit Goal: Patient/patient guest service representative demonstrates understanding of disease process, [...] goal: Pt discharge plan started on admission, child caregiver involved, discharges needs assessed. Problem: Moderate - High Risk Fall Score Description: Torres Fall Score of =/> 25 or indicated by [facility] Re[facility] Assessment Goal: Patient should be free from fall Description: Interventions: 1. [place] to environment 2. Hourly rounds addressing the [...] footwear 11. Teach patient and patient guest service representative to maintain environment for safety [...] walker) within reach 19. Request patient guest service representative bring adaptive equipment/mobility aids from home or obtain and provide as needed 20. Consult pharmacy regarding effects of med's affecting mobility, cognition, and alternatives 21. Obtain physician order for PT if risk factors associated with mobility are present 22. Obtain physician order for OT as appropriate 23. Utilize diversional activities 24. Educate patient and patient guest service representative how to maintain a safe environment during visitationtimes (notify nurse prior to leaving bedside) 25. Consider appropriateness of medical or non-biomedical engineering director 26. Set up voiding schedule as appropriate [...] supplement as ordered 13. Collaborate with clinical assisted living manager 14. Include patient/ patient's guest service representative in decisions related to nutrition [...] INTERVENTIONS: 1. Encourage patient or legal guest service representative to report early pain and [...] policy 9. Teach patient or legal guest service representative interventions for comforting Outcome: Progressing [...] the bedside 7. Instruct patient/ patient guest service representative about use of safety devices 8. Include patient/ patient guest service representative in decisions related to safety [...] technique. 7. Identify and instruct patient/patient guest service representative in use of appropriate isolation precautionsfor identified infection/symptoms. 8. Provide and discuss with patient/patient guest service representative on educational MDRO sheet. 9. Encourage and monitor nutritional status daily and consult assisted living manager if indicated. 10. Implement neutropenic guidelines as needed. Outcome: Progressing Note: Evaluation of progress towards goal: No signs or symptoms of infection Problem: Knowledge Deficit Goal: Patient/patient guest service representative demonstrates understanding of disease process, [...] Score of =/> 25 or indicated by [facility] Rehab Assessment Goal: Patient should be free from fall Description: Interventions: 1. [place] to environment 2. Hourly rounds addressing the [...] footwear 11. Teach patient and patient guest service representative to maintain environment for safety [...] walker) within reach 19. Request patient guest service representative bring adaptive equipment/mobility aids from home or obtain and provide as needed 20. Consult pharmacy regarding effects of med's affecting mobility, cognition, and alternatives 21. Obtain physician order for PT if risk factors associated with mobility are present 22. Obtain physician order for OT as appropriate 23. Utilize diversional activities 24. Educate patient and patient guest service representative how to maintain a safe environment during visitationtimes (notify nurse prior to leaving bedside) 25. Consider appropriateness of medical or non-biomedical engineering director 26. Set up voiding schedule as appropriate [...] supplement as ordered 13. Collaborate with clinical assisted living manager 14. Include patient/ patient's guest service representative in decisions related to nutrition [...] the pelvis, flexible sigmoidoscopy Surgeon: Kehinde Monson Hard Candy Spinner: Zoë,PGY-3 present for all portions of the [...] Deferral: Off unit Off Unit: Surgery * PT/OT/DIE CAST DIE MAKER - Ginny Mcghee, PT - 08/07/2025 11:42 [...] INTERVENTIONS: 1. Encourage patient or legal guest service representative to report early pain and [...] policy 9. Teach patient or legal guest service representative interventions for comforting Outcome: Progressing [...] the bedside 7. Instruct patient/ patient guest service representative about use of safety devices 8. Include patient/ patient guest service representative in decisions related to safety [...] technique. 7. Identify and instruct patient/patient guest service representative in use of appropriate isolation precautionsfor identified infection/symptoms. 8. Provide and discuss with patient/patient guest service representative on educational MDRO sheet. 9. Encourage and monitor nutritional status daily and consult assisted living manager if indicated. 10. Implement neutropenic guidelines as needed. Outcome: Progressing Note: Evaluation of progress towards goal: Pts VSS and labs WNL, no S/S of infection, all insertionsites clean dry and intact, pt and staff utilize proper handwashing technique. Problem: Knowledge Deficit Goal: Patient/patient guest service representative demonstrates understanding of disease process, [...] goal: Pt discharge plan started on admission, child caregiver involved, discharges needs assessed. Problem: Moderate - High Risk Fall Score Description: Torres Fall Score of =/> 25 or indicated by [facility] Re[facility] Assessment Goal: Patient should be free from fall Description: Interventions: 1. [place] to environment 2. Hourly rounds addressing the [...] footwear 11. Teach patient and patient guest service representative to maintain environment for safety [...] walker) within reach 19. Request patient guest service representative bring adaptive equipment/mobility aids from home or obtain and provide as needed 20. Consult pharmacy regarding effects of med's affecting mobility, cognition, and alternatives 21. Obtain physician order for PT if risk factors associated with mobility are present 22. Obtain physician order for OT as appropriate 23. Utilize diversional activities 24. Educate patient and patient guest service representative how to maintain a safe environment during visitationtimes (notify nurse prior to leaving bedside) 25. Consider appropriateness of medical or non-biomedical engineering director 26. Set up voiding schedule as appropriate [...] supplement as ordered 13. Collaborate with clinical assisted living manager 14. Include patient/ patient's guest service representative in decisions related to nutrition [...] INTERVENTIONS: 1. Encourage patient or legal guest service representative to report early pain and [...] policy 9. Teach patient or legal guest service representative interventions for comforting Outcome: Progressing [...] the bedside 7. Instruct patient/ patient guest service representative about use of safety devices 8. Include patient/ patient guest service representative in decisions related to safety [...] technique. 7. Identify and instruct patient/patient guest service representative in use of appropriate isolation precautionsfor identified infection/symptoms. 8. Provide and discuss with patient/patient guest service representative on educational MDRO sheet. 9. Encourage and monitor nutritional status daily and consult assisted living manager if indicated. 10. Implement neutropenic guidelines as needed. Outcome: Progressing Note: Evaluation of progress towards goal: Pt free from signs of infection at this time, will continue to monitor for signs and symptoms of infection during shift. Pt afebrile. Problem: Knowledge Deficit Goal: Patient/patient guest service representative demonstrates understanding of disease process, [...] Score of =/> 25 or indicated by [facility] Assessment Goal: Patient should be free from fall Description: Interventions: 1. [place] to environment 2. Hourly rounds addressing the [...] footwear 11. Teach patient and patient guest service representative to maintain environment for safety [...] walker) within reach 19. Request patient guest service representative bring adaptive equipment/mobility aids from home or obtain and provide as needed 20. Consult pharmacy regarding effects of med's affecting mobility, cognition, and alternatives 21. Obtain physician order for PT if risk factors associated with mobility are present 22. Obtain physician order for OT as appropriate 23. Utilize diversional activities 24. Educate patient and patient guest service representative how to maintain a safe environment during visitationtimes (notify nurse prior to leaving bedside) 25. Consider appropriateness of medical or non-biomedical engineering director 26. Set up voiding schedule as appropriate [...] supplement as ordered 13. Collaborate with clinical assisted living manager 14. Include patient/ patient's guest service representative in decisions related to nutrition [...] INTERVENTIONS: 1. Encourage patient or legal guest service representative to report early pain and [...] policy 9. Teach patient or legal guest service representative interventions for comforting Outcome: Progressing [...] the bedside 7. Instruct patient/ patient guest service representative about use of safety devices 8. Include patient/ patient guest service representative in decisions related to safety [...] technique. 7. Identify and instruct patient/patient guest service representative in use of appropriate isolation precautionsfor identified infection/symptoms. 8. Provide and discuss with patient/patient guest service representative on educational MDRO sheet. 9. Encourage and monitor nutritional status daily and consult assisted living manager if indicated. 10. Implement neutropenic guidelines as needed. Outcome: Progressing Note: Evaluation of progress towards goal: Hand hygiene, monitor labs and vitals Problem: Knowledge Deficit Goal: Patient/patient guest service representative demonstrates understanding of disease process, [...] Score of =/> 25 or indicated by [facility] Re[facility] Assessment Goal: Patient should be free from fall Description: Interventions: 1. [place] to environment 2. Hourly rounds addressing the [...] footwear 11. Teach patient and patient guest service representative to maintain environment for safety [...] walker) within reach 19. Request patient guest service representative bring adaptive equipment/mobility aids from home or obtain and provide as needed 20. Consult pharmacy regarding effects of med's affecting mobility, cognition, and alternatives 21. Obtain physician order for PT if risk factors associated with mobility are present 22. Obtain physician order for OT as appropriate 23. Utilize diversional activities 24. Educate patient and patient guest service representative how to maintain a safe environment during visitationtimes (notify nurse prior to leaving bedside) 25. Consider appropriateness of medical or non-biomedical engineering director 26. Set up voiding schedule as appropriate [...] supplement as ordered 13. Collaborate with clinical assisted living manager 14. Include patient/ patient's guest service representative in decisions related to nutrition [...] patient need discharge transportation arranged? No 3-Midnight Nps met with patient, introduced self, and explained [...] yesterday but information is not in chart. flatwork feeder contacted Registration again today to follow up with patient to get information. Patient reports her spouse took home her wallet so she was unable to provide cards to me. IMM given to patient for signature, copy placed in chart. PCP: ANN MARIE SIDHU MD Pharmacy: prefers [facility] PCP and pharmacy confirmed [...] possible discharge later today. Annita Still MD Ob-Office Machine Embossograph Operator Resident, PGY-2 * Op Note - Sarah Strange DO - 08/04/2025 9:37 AM EST Gynecologic Operative Note NAME: Eunice Anderson : 1955 PROCEDURE DATE: 08/04/2025 Pre-op Diagnosis: vaginal bleeding with acute blood loss anemia Post-op Diagnosis: same as above Procedure: Dilation and Curettage Surgeon: Dr. Dustin Santiago Hard Candy Spinner: Dr Sarah Strange D.O. PGY-2 Anesthesia Type: [...] were correct x 2. Sarah Strange DO Cuff Setter Lockstitch Resident, PGY-2 Cosigned by Dustin Santiago MD [...] Plan of Treatment DateTypeDepartmentCare Team (Latest Contact Info)Tpnqzubhzsq97/24/2025Hospital Encounter [facility] - Surgery [address] [place] [phone] Justin Mackey MD [address] [place] [phone] 08/21/2025 8:00 AM ESTInfusion [facility] On[facility] [address] [place] [address] [phone] 08/21/2025 11:00 AM ESTOffice Visit [facility] - [facility] Oncology [address] [place] [address] [phone] Melinda Coffey PA [address] [facility] [address] [place] [address] 09/10/2025 11:00 AM ESTInfusion [facility] - Medical Oncology [address] [place] [address] [phone] 09/10/2025 1:30 PM ESTOffice Visit [facility] A Department of [address] [place] [phone] Annita Patton, AUTOMOBILE MECHANIC SUPERVISOR-PERFORATING MACHINE OPERATOR [address] [facility], [address] [place] [address] 09/11/2025 8:00 AM ESTInfusion [facility] - Medical Oncology [address] [place] [phone] NameTypePriorityAssociated DiagnosesDate/TimeSurgical PathologyPathology and MqsqtioeFamuull05/08/2025 10:06 AM ESTNameTypePriorityAssociated DiagnosesOrder ScheduleSurgical PathologyPathology and [...] 08/11/2025 12:37 AM EST CBC WITH AUTO EJYNZCYKTBCWAcglzoz28/13/2025 5:32 AM EST COMPREHENSIVE METABOLIC GLQKVAgkcyos19/13/2025 5:32 AM EST CBC WITH AUTO ILQWQJHILKVNUvyfdmn21/12/2025 5:58 AM EST TYPE AND ZOIWFIFvbmykw93/12/2025 5:57 AM EST COMPREHENSIVE METABOLIC CEABGToojpsa27/12/2025 5:57 AM EST SURGICAL NHNFLCKOOTmzrjwc92/11/2025 3:42 PM EST NON-GYNECOLOGIC EVCNXHDZIesjzgo75/11/2025 2:44 PM EST TRANSFUSE RED BLOOD CQPAHApseosq78/11/2025 2:23 PM ESTFLEXIBLE SIGMOIDOSCOPY 08/07/2025 1:30 PM EST ENDOMETRIAL CANCER Case Notes [facility] EPIC 2W MOVE UP TO 1130 Special Needs MOVE UP TO 1130 DAVINCI HYSTERECTOMY SALPINGO JWTFYTSCRZOJ86/11/2025 1:30 PM EST ENDOMETRIAL CANCER Case Notes [facility] EPIC 2W MOVE UP TO 1130 Special Needs MOVE UP TO 1130 CBC WITH AUTO HUQMNALFLFWYCgxugfe43/11/2025 5:40 AM EST COMPREHENSIVE METABOLIC HYPDFAscrlui76/11/2025 5:40 AM EST CROSSMATCH VSVSsjwmpi03/10/2025 6:37 AM ESTCBC WITH AUTO DIFFERENTIALRoutine 08/06/2025 6:23 AM EST COMPREHENSIVE METABOLIC USZAKQrfqvzs45/10/2025 6:23 AM EST COMPREHENSIVE METABOLIC KSDGYJqtuklh96/09/2025 8:[address] CHEST W VFXQUzqunlo98/09/2025 12:11 PM EST CBC WITH AUTO HNPYDKSOIPFLGfcmawz84/09/2025 4:02 AM EST COMPREHENSIVE METABOLIC NCNDRGzgzbsz79/09/2025 4:02 AM EST CBC WITH AUTO PUINSXDDQDJZQzkhaaw45/08/2025 12:18 PM EST TRANSFUSE RED BLOOD BAQGONmzszfs27/08/2025 10:00 AM ESTTRANSFUSE RED BLOOD CELLS Xgbamgg3208/04/2025 8:39 AM ESTREPEATED XZYUCDzykrsx06/08/2025 8:27 AM EST REPEATED KAEBRYdidwqf09/08/2025 7:41 AM EST CROSSMATCH DYKSfdecvg20/08/2025 5:30 AM EST CBC WITH AUTO STAYEXQVHJKIAheifhu24/08/2025 5:30 AM EST SAOFHocyawz91/08/2025 5:30 AM EST PROTIME & EYEBnyeamh33/08/2025 5:30 AM EST BDTIIOCSVJZwrfkjt70/08/2025 5:30 AM EST TYPE AND XOAORJDfyvksn42/08/2025 5:30 AM EST COMPREHENSIVE METABOLIC OILMJRaexhcs57/08/2025 5:30 AM EST PULSE OXIMETRY, UGXBNnlgjtw25/08/2025 3:38 AM ESTdocumented in this encounter Results * Crossmatch RBC:Number of Units: 2 (08/11/2025 12:37 AM EST)ComponentValueRef RangeTest MethodAnalysis TimePerformed AtPathologist SignatureBlood component sthgU3759H17BLWFO BANK - JOELUnit [id number] BANK - WELLSKY Unit ABOOBLOOD BANK - JOELUnit RHPOSBLOOD BANK - WELLSMAGDALENACrossmatch CompatibleBLOOD BANK - WELLSKYStatus of unitTRANSFUSEDBLOOD BANK - WELLSKY Expiration [id number] BANK - WELLSKYBB Type Yiqurlv2393HKOHB BANK - WELLSKYSpecimen (Source)Anatomical Location / LateralityCollection Method / VolumeCollection TimeReceived TimeBloodVenous blood / Glyjpge4408/11/2025 12:37 AM EST08/04/2025 5:47 AM EST Narrative Authorizing ProviderResult TypeResult StatusKassidy Rejent MDBLOOD BANK PRODUCT ORDERABLESEdited Result - FinalPerforming OrganizationAddressCity/State/ZIP Code Phone Number [facility] [place] * (ABNORMAL) CBC auto differential (08/09/2025 5:32 AM EST)ComponentValueRef RangeTest MethodAnalysis TimePerformed AtPathologist QzmdqbnvdLDD13.1(H)4 - 11 X10^9/L110/09/2024 7:00 AM [facility] LABORATORYRBC Count2.98 (L)3.8 - 5.2 X10^12/L110/09/2024 7:00 AM [facility] Hemoglobin8.9(L)11.7 - 15.5 g/dL08/09/2025 7:00 AM [facility] KIAAISIAMDCignrnnvli06.3(L)35 - 47 %08/09/2025 7:00 AM [facility] YREEJXHIIMJPL9593 - 100 fL08/09/2025 7:00 AM [facility] IEZPFSBKEKZML06.027 - 34 pg08/09/2025 7:00 AM [facility] LMFWZPVTPMAAPJ53.032 - 36 g/dL08/09/2025 7:00 AM [facility] FFNLUTXDZIGHH73.7(H)11.5 - 15 %08/09/2025 7:00 AM [facility] LABORATORYPlatelet Pauvd219818 - 450 X10^9/L110/09/2024 7:00 AM [facility] LABORATORYMPV7.97 - 12 fL08/09/2025 7:00 AM [facility] LABORATORYNeutrophils %75.6%08/09/2025 7:00 AM [facility] LABORATORYComment:This is an appended report. These results have been appended to a previously preliminary verified report.Lymphocytes % 11.1%08/09/2025 7:00 AM [facility] LABORATORYComment:This is an appended report. These results have been appended to a previously preliminary verified report.Monocytes %6.4%08/09/2025 7:00 AM [facility] LABORATORYComment:This is an appended report. These results have been appended to a previously preliminary verified report.Eosinophils % 5.8%08/09/2025 7:00 AM [facility] LABORATORYComment:This is an appended report. These results have been appended to a previously preliminary verified report.Basophils %1.1%08/09/2025 7:00 AM [facility] LABORATORYComment:This is an appended report. These results have been appended to a previously preliminary verified report.Neutrophils Absolute (A)10.7(H)1.5 - 6.6 X10^9/L110/09/2024 7:00 AM [facility] LABORATORYComment:This is an appended report. These results have been appended to a previously preliminary verified report.Lymphocytes Absolute1.6 1.0 - 3.5 X10^9/L110/09/2024 7:00 AM [facility] Comment:This is an appended report. These results have been appended to a previously preliminary verified report.Monocytes Absolute0.90.0 - 0.9 X10^9/L 08/09/2025 7:00 AM [facility] LABORATORYComment:This is an appended report. These results have been appended to a previously preliminary verified report.Eosinophils Absolute0.8(H)0.0 - 0.4 X10^9/L110/09/2024 7:00 AM [facility] LABORATORYComment:This is an appended report. These results have been appended to a previously preliminary verified report. Basophils Absolute0.10.0 - 0.2 X10^9/L110/09/2024 7:00 AM [facility] LABORATORYComment:This is an appended report. These results have been appended to a previously preliminary verified report.Differential Type AUTOMATED RTGTUVGCYGZM13/13/2025 7:00 AM [facility] LABORATORYComment:This is an appended report. These results have been appended to a previously preliminary verified report.Specimen (Source)Anatomical Location / LateralityCollection Method / VolumeCollection TimeReceived Time BloodVenous blood / UnknownVenipuncture / Jhhpubc3508/09/2025 5:32 AM EST 08/09/2025 5:54 AM EST Narrative Authorizing ProviderResult TypeResult StatusHala Magdaleno PASCUAL BLOOD ORDERABLESFinal ResultPerforming OrganizationAddressCity/State/ZIP CodePhone Number [facility] [address] [place] [phone], * (ABNORMAL) Comprehensive metabolic panel (08/09/2025 5:32 AM EST)Component ValueRef RangeTest MethodAnalysis TimePerformed AtPathologist SignatureSODIUM 020586 - 146 mmol/L110/09/2024 6:26 AM [facility] POTASSIUM3.3(L)3.5 - 5.0 mmol/L110/09/2024 6:26 AM [facility] LPQGQLCKABNNPMUNUA24804 - 109 mmol/L110/09/2024 6:26 AM [facility] LABORATORYCARBON ECSRLEI6928 - 32 mmol/L110/09/2024 6:26 AM [facility] LABORATORYANION VFY458 - 15 mmol/L110/09/2024 6:26 AM EST [facility] LABORATORYBLOOD UREA IPUYXKGF561 - 27 mg/dL08/09/2025 6:26 AM [facility] LABORATORYCREATININE0.650.40 - 1.00 mg/dL 08/09/2025 6:26 AM [facility] LABORATORYComment:METHOD TRACEABLE TO IDMS JHSPZHQPHSYKOLN6598 - 99 mg/dL08/09/2025 6:26 AM [facility] LABORATORYCALCIUM8.1(L)8.5 - 10.5 mg/dL08/09/2025 6:26 AM [facility] LABORATORYTOTAL PROTEIN5.4(L)6.0 - 8.0 g/dL 08/09/2025 6:26 AM [facility] LABORATORYALBUMIN3.0(L)3.2 - 5.3 g/dL08/09/2025 6:26 AM [facility] LABORATORYALKALINE VRUMHKOIRGI1993 - 130 U/L110/09/2024 6:26 AM [facility] BZCATODDBXVIL61<=41 U/L110/09/2024 6:26 AM [facility] LABORATORYALT6<=31 U/L110/09/2024 6:26 AM [facility] LABORATORYBILIRUBIN,TOTAL0.50.3 - 1.2 mg/dL08/09/2025 6:26 AM [facility] LABORATORYEGFR Non-Race Dependent>90>=60 ml/min/1.73sq.m 08/09/2025 6:26 AM [facility] LABORATORYComment: Reported eGFR is based on the CKD-EPI 2020 equation that does not use a race coefficient. Specimen (Source)Anatomical Location / LateralityCollection Method / Volume Collection TimeReceived TimeBloodVenous blood / UnknownVenipuncture / Unknown 08/09/2025 5:32 AM EST08/09/2025 5:54 AM EST Narrative Authorizing ProviderResult TypeResult StatusHallillie PASCUAL BLOOD ORDERABLESFinal ResultPerforming OrganizationAddressCity/State/ZIP CodePhone Number [facility] [address] [place] [address], * (ABNORMAL) CBC auto differential (08/08/2025 5:58 AM EST)ComponentValueRef RangeTest MethodAnalysis TimePerformed AtPathologist SjzwedornXKL42.1(H)4 - 11 X10^9/L110/08/2024 7:17 AM [facility] LABORATORYRBC Count2.95 (L)3.8 - 5.2 X10^12/L110/08/2024 7:17 AM [facility] Hemoglobin8.5(L)11.7 - 15.5 g/dL08/08/2025 7:17 AM [facility] GCNMIAHQUBVxgacruwan91.1(L)35 - 47 %08/08/2025 7:17 AM [facility] NLODODDKHXXXN1547 - 100 fL08/08/2025 7:17 AM [facility] RQETBHJQDGOGX21.727 - 34 pg08/08/2025 7:17 AM [facility] QNGTKEFUFCINEJ18.532 - 36 g/dL08/08/2025 7:17 AM [facility] MWMKTVGTHUMJQ82.7(H)11.5 - 15 %08/08/2025 7:17 AM [facility] LABORATORYPlatelet Xauuf612705 - 450 X10^9/L110/08/2024 7:17 AM [facility] LABORATORYMPV8.17 - 12 fL08/08/2025 7:17 AM [facility] LABORATORYNeutrophils %88.6%08/08/2025 7:17 AM [facility] LABORATORYComment:This is an appended report. These results have been appended to a previously preliminary verified report.Lymphocytes % 5.1%08/08/2025 7:17 AM [facility] LABORATORYComment:This is an appended report. These results have been appended to a previously preliminary verified report.Monocytes %5.9%08/08/2025 7:17 AM [facility] LABORATORYComment:This is an appended report. These results have been appended to a previously preliminary verified report.Eosinophils % 0.1%08/08/2025 7:17 AM [facility] LABORATORYComment:This is an appended report. These results have been appended to a previously preliminary verified report.Basophils %0.3%08/08/2025 7:17 AM [facility] LABORATORYComment:This is an appended report. These results have been appended to a previously preliminary verified report.Neutrophils Absolute (A)16.0(H)1.5 - 6.6 X10^9/L110/08/2024 7:17 AM [facility] LABORATORYComment:This is an appended report. These results have been appended to a previously preliminary verified report.Lymphocytes Absolute0.9 (L)1.0 - 3.5 X10^9/L110/08/2024 7:17 AM [facility] Comment:This is an appended report. These results have been appended to a previously preliminary verified report.Monocytes Absolute1.1(H)0.0 - 0.9 X10^9/L110/08/2024 7:17 AM [facility] LABORATORYComment:This is an appended report. These results have been appended to a previously preliminary verified report.Eosinophils Absolute0.00.0 - 0.4 X10^9/L110/08/2024 7:17 AM [facility] LABORATORYComment:This is an appended report. These results have been appended to a previously preliminary verified report.Basophils Absolute0.00.0 - 0.2 X10^9/L110/08/2024 7:17 AM [facility] LABORATORYComment:This is an appended report. These results have been appended to a previously preliminary verified report.Differential TypeAUTOMATED IAAJOLJGCKSX75/12/2025 7:17 AM [facility] LABORATORYComment:This is an appended report. These results have been appended to a previously preliminary verified report.Specimen (Source)Anatomical Location / LateralityCollection Method / VolumeCollection TimeReceived Time BloodVenous blood / UnknownVenipuncture / Gjurnqj8908/08/2025 5:58 AM EST 08/08/2025 6:30 AM EST Narrative Authorizing ProviderResult TypeResult StatusHala Magdaleno PASCUAL BLOOD ORDERABLESFinal ResultPerforming OrganizationAddressCity/State/ZIP CodePhone Number [facility] [address] [place] [address], * (ABNORMAL) Comprehensive metabolic panel (08/08/2025 5:57 AM EST)Component ValueRef RangeTest MethodAnalysis TimePerformed AtPathologist SignatureSODIUM 031358 - 146 mmol/L110/08/2024 7:06 AM [facility] POTASSIUM4.03.5 - 5.0 mmol/L110/08/2024 7:06 AM [facility] BRIMEVGKSNKFUXOBQA64050 - 109 mmol/L110/08/2024 7:06 AM [facility] LABORATORYCARBON OIVBGFG3735 - 32 mmol/L110/08/2024 7:06 AM [facility] LABORATORYANION GAP95 - 15 mmol/L110/08/2024 7:06 AM [facility] LABORATORYBLOOD UREA CSGPWMEC295 - 27 mg/dL08/08/2025 7:06 AM [facility] LABORATORYCREATININE0.610.40 - 1.00 mg/dL 08/08/2025 7:06 AM [facility] LABORATORYComment:METHOD TRACEABLE TO IDMS LOHGBDLSJHRKRKE041(H)65 - 99 mg/dL08/08/2025 7:06 AM [facility] LABORATORYCALCIUM8.58.5 - 10.5 mg/dL08/08/2025 7:06 AM [facility] LABORATORYTOTAL PROTEIN5.4(L)6.0 - 8.0 g/dL 08/08/2025 7:06 AM [facility] LABORATORYALBUMIN3.23.2 - 5.3 g/dL08/08/2025 7:06 AM [facility] LABORATORYALKALINE ILALZLNPQGI4747 - 130 U/L110/08/2024 7:06 AM [facility] YLSILLGSPTJKG98<=41 U/L110/08/2024 7:06 AM [facility] LABORATORYALT3<=31 U/L110/08/2024 7:06 AM [facility] LABORATORYBILIRUBIN,TOTAL0.80.3 - 1.2 mg/dL08/08/2025 7:06 AM [facility] LABORATORYEGFR Non-Race Dependent>90>=60 ml/min/1.73sq.m 08/08/2025 7:06 AM [facility] LABORATORYComment: Reported eGFR is based on the CKD-EPI 2020 equation that does not use a race coefficient. Specimen (Source)Anatomical Location / LateralityCollection Method / Volume Collection TimeReceived TimeBloodVenous blood / UnknownVenipuncture / Unknown 08/08/2025 5:57 AM EST08/08/2025 6:30 AM EST Narrative Authorizing ProviderResult TypeResult StatusBrittnee Sam MDLAB BLOOD ORDERABLESFinal ResultPerforming OrganizationAddressCity/State/ZIP CodePhone Number [facility] [address] [place] [address], * Type and screen(includes indirect grady) (08/08/2025 5:57 AM EST)Component ValueRef RangeTest MethodAnalysis TimePerformed AtPathologist SignatureABOO 08/08/2025 7:52 AM ESTTTH BB - WHSQNJINVWpkgawqm69/12/2025 7:52 AM ESTTTH BB - WELLSKYAntibody EkeplwFlgesmep83/12/2025 7:52 AM ESTTTH BB - WELLSKYSpecimen (Source)Anatomical Location / LateralityCollection Method / VolumeCollection TimeReceived TimeBloodVenous blood / UnknownVenipuncture / Rscfiif4608/08/2025 5:57 AM EST08/08/2025 6:54 AM EST Narrative Authorizing ProviderResult TypeResult StatusDustin Santiago MDBLOOD BANK TEST ORDERABLESEdited Result - FinalPerforming OrganizationAddressCity/State/ZIP Code Phone Number [facility] [address] [place] [address], * Surgical Pathology (08/07/2025 3:42 PM EST)ComponentValueRef RangeTest Method Analysis TimePerformed AtPathologist SignatureCase ReportSurgical Pathology Report ? Case: [id number] ? Authorizing Provider: ??Dennis Monson MD ?Collected: ? 08/07/2025 1542 ? Ordering Location: ? [facility] ??Received: ?08/07/2025 1647 ? - Surgery ? Pathologist: ? Gene Monica Alcantara MD ? Specimens: ?? 1) - Uterus, Fallopian Tube, Ovary, UTERUS, CERVIX, BILATERAL TUBES AND OVARIES ? 2) - Pelvis, LEFT POSTERIOR PELVIS BIOPSY ? 08/14/2025 2:47 PM [facility] LABORATORYFinal Diagnosis1. Uterus, fallopian [...] posterior pelvis, biopsy: Metastatic carcinoma.08/14/2025 2:47 PM [facility] at 1447 ESTGross [...] 1 minute Total fixation time: 27 hours (18,ns,[id number], m8.1) 2. Received in formalin labeled ANDERSON, left posterior pelvis biopsy is pink-lambert feathery and friable soft tissue admixed with hemorrhagic material, 2.5 x 2.5 x 1.2 cm in aggregate. The specimen is submitted entirely in cassettes A- C. (3,ns,[id number], m8.1) 08/14/2025 2:47 PM [facility] LABORATORYSynoptic ChecklistENDOMETRIUM ENDOMETRIUM - [...] (no nodes submitted or found)08/14/2025 2:47 PM [facility] LABORATORYEmbedded Jzktjp5508/14/2025 2:47 PM [facility] LABORATORYSpecimen (Source)Anatomical Location / LateralityCollection Method / VolumeCollection TimeReceived TimeTissue (Uterus, Fallopian Tube, Ovary)08/07/2025 3:42 PM EST08/07/2025 4:47 PM ESTComment:Pre- op diagnosis: ENDOMETRIAL CANCERTissue specimen (specimen)Pelvic region / Mpgxfty6708/07/2025 3:43 PM EST08/07/2025 4:47 PM ESTComment:Pre-op diagnosis: ENDOMETRIAL CANCER Narrative Authorizing ProviderResult TypeResult StatusAdam Raven Monson MDPATHOLOGY/CYTOLOGY ORDERABLESFinal ResultPerforming OrganizationAddressCity/State/ZIP CodePhone Number [facility] [address] [place] [address], * Transfuse RBC:1 Unit (08/07/2025 2:56 PM EST) Narrative Authorizing ProviderResult TypeResult StatusAleia K Catherine MDBLOOD TRANSFUSION ORDERABLESFinal Result * Transfuse RBC:1 Unit (08/07/2025 2:56 PM EST) Narrative Authorizing ProviderResult TypeResult StatusAleia K Catherine MDBLOOD TRANSFUSION ORDERABLESFinal Result * Cytology non-gynecologic (08/07/2025 2:44 PM EST)ComponentValueRef RangeTest MethodAnalysis TimePerformed AtPathologist SignatureCase ReportMedical Cytology Report ? Case: [id number] ? Authorizing Provider: ??Dennis Monson MD ?Collected: ? 08/07/2025 1444 ? Ordering Location: ? [facility] ??Received: ?08/07/2025 1501 ? - Surgery ? Pathologist: ? Darryl Alcantara MD ? Specimen: ?Pelvis, Pelvis fluid ? 08/14/2025 2:58 PM [facility] LABORATORYFinal DiagnosisPelvic fluid: Positive for Carcinoma, rare cells.08/14/2025 2:58 PM [facility] at 1458 ESTGross DescriptionReceived was 20ml of red fluid unfixed, labeled as Anderson, pelvis . CytoLyt added in lab. Specimen placed in formalin at 17:00 and had a total fixation time of 8 hours. 08/14/2025 2:58 PM [facility] LABORATORYEmbedded Images 08/14/2025 2:58 PM [facility] LABORATORYSpecimen (Source) Anatomical Location / LateralityCollection Method / VolumeCollection Time Received TimeFluidPelvic region / Ucbmfks7008/07/2025 2:44 PM EST08/07/2025 3:01 PM ESTComment:Pre-op diagnosis: ENDOMETRIAL CANCER Narrative Authorizing ProviderResult TypeResult StatusAdam Raven Monson MDPATHOLOGY/CYTOLOGY ORDERABLESFinal ResultPerforming OrganizationAddressCity/State/ZIP CodePhone Number [facility] [address] [place] [address], * (ABNORMAL) Comprehensive metabolic panel (08/07/2025 5:40 AM EST)Component ValueRef RangeTest MethodAnalysis TimePerformed AtPathologist SignatureSODIUM 479887 - 146 mmol/L110/07/2024 6:42 AM [facility] POTASSIUM3.2(L)3.5 - 5.0 mmol/L110/07/2024 6:42 AM [facility] WAYXJLOVSKQUSAZSVI024(H)98 - 109 mmol/L110/07/2024 6:42 AM [facility] LABORATORYCARBON QSGGCKX9377 - 32 mmol/L110/07/2024 6:42 AM [facility] LABORATORYANION GAP85 - 15 mmol/L110/07/2024 6:42 AM EST [facility]ORATORYBLOOD UREA JHBAYUTF295 - 27 mg/dL08/07/2025 6:42 AM [facility] LABORATORYCREATININE0.670.40 - 1.00 mg/dL 08/07/2025 6:42 AM [facility] LABORATORYComment:METHOD TRACEABLE TO IDMN BOFTQESDGBKFRMC649(H)65 - 99 mg/dL08/07/2025 6:42 AM [facility] LABORATORYCALCIUM8.0(L)8.5 - 10.5 mg/dL08/07/2025 6:42 AM [facility] LABORATORYTOTAL PROTEIN5.6(L)6.0 - 8.0 g/dL08/07/2025 6:42 AM [facility] LABORATORYALBUMIN3.0(L)3.2 - 5.3 g/dL08/07/2025 6:42 AM [facility] LABORATORYALKALINE MSAKDEDCQFV2393 - 130 U/L110/07/2024 6:42 AM [facility] MWAVLXHHHWLXZ00<=41 U/L110/07/2024 6:42 AM [facility] LABORATORYALT4<=31 U/L110/07/2024 6:42 AM [facility] LABORATORYBILIRUBIN,TOTAL0.70.3 - 1.2 mg/dL08/07/2025 6:42 AM [facility] LABORATORYEGFR Non-Race Dependent>90>=60 ml/min/1.73sq.m 08/07/2025 6:42 AM [facility] LABORATORYComment: Reported eGFR is based on the CKD-EPI 2020 equation that does not use a race coefficient. Specimen (Source)Anatomical Location / LateralityCollection Method / Volume Collection TimeReceived TimeBloodVenous blood / UnknownVenipuncture / Unknown 08/07/2025 5:40 AM EST08/07/2025 6:04 AM EST Narrative Authorizing ProviderResult TypeResult StatusHala Magdaleno PASCUAL BLOOD ORDERABLESFinal ResultPerforming OrganizationAddressCity/State/ZIP CodePhone Number [facility] [address] [place] [address], * (ABNORMAL) CBC auto differential (08/07/2025 5:40 AM EST)ComponentValueRef RangeTest MethodAnalysis TimePerformed AtPathologist GhsdezsriEMO24.4(H)4 - 11 X10^9/L110/07/2024 6:49 AM [facility] LABORATORYRBC Count2.87 (L)3.8 - 5.2 X10^12/L110/07/2024 6:49 AM [facility] Hemoglobin8.3(L)11.7 - 15.5 g/dL08/07/2025 6:49 AM [facility] RZDIWCSOOLDziamumeyy41.3(L)35 - 47 %08/07/2025 6:49 AM [facility] MSTHKUKDGGYYV0719 - 100 fL08/07/2025 6:49 AM [facility] GEHOKGICWAQWH51.027 - 34 pg08/07/2025 6:49 AM [facility] PEWMQDSZFZNNAJ55.932 - 36 g/dL08/07/2025 6:49 AM [facility] HWRUGHYFNJUSW98.1(H)11.5 - 15 %08/07/2025 6:49 AM [facility] LABORATORYPlatelet Cparg650671 - 450 X10^9/L110/07/2024 6:49 AM EST [facility]ORATORYMPV7.87 - 12 fL08/07/2025 6:49 AM [facility] LABORATORYBands %1%08/07/2025 6:49 AM [facility] LABORATORYComment:This is an appended report. These results have been appended to a previously preliminary verified report.Neutrophils %84% 08/07/2025 6:49 AM [facility] LABORATORYComment:This is an appended report. These results have been appended to a previously preliminary verified report.Lymphocytes %9%08/07/2025 6:49 AM [facility] LABORATORYComment:This is an appended report. These results have been appended to a previously preliminary verified report.Monocytes %5%08/07/2025 6:49 AM [facility] LABORATORYComment:This is an appended report. These results have been appended to a previously preliminary verified report. Eosinophils %1%08/07/2025 6:49 AM [facility] Comment:This is an appended report. These results have been appended to a previously preliminary verified report.Neutrophils Absolute (M)15.6(H)1.5 - 6.6 X10^9/L110/07/2024 6:49 AM [facility] LABORATORYComment: This is an appended report. These results have been appended to a previously preliminary verified report.Lymphocytes Absolute1.71.0 - 3.5 X10^9/L110/07/2024 6:49 AM [facility] LABORATORYComment:This is an appended report. These results have been appended to a previously preliminary verified report.Monocytes Absolute0.90.0 - 0.9 X10^9/L110/07/2024 6:49 AM [facility] LABORATORYComment:This is an appended report. These results have been appended to a previously preliminary verified report.Eosinophils Absolute0.20.0 - 0.4 X10^9/L110/07/2024 6:49 AM [facility] LABORATORYComment:This is an appended report. These results have been appended to a previously preliminary verified report.Polychromasia1+08/07/2025 6:49 AM [facility] LABORATORYComment:This is an appended report. These results have been appended to a previously preliminary verified report. Differential TypeMANUAL QODAKKDBZZTU28/11/2025 6:49 AM [facility] LABORATORYComment:This is an appended report. These results have been appended to a previously preliminary verified report.Specimen (Source) Anatomical Location / LateralityCollection Method / VolumeCollection Time Received TimeBloodVenous blood / UnknownVenipuncture / Gvxfjuo2508/07/2025 5:40 AM EST08/07/2025 6:04 AM EST Narrative Authorizing ProviderResult TypeResult StatusHallillie PASCUAL BLOOD ORDERABLESFinal ResultPerforming OrganizationAddressCity/State/ZIP CodePhone Number [facility] [address] [place] [id number], * Crossmatch RBC:Number of Units: 1 (08/06/2025 6:37 AM EST)Specimen (Source) Anatomical Location / LateralityCollection Method / VolumeCollection Time Received TimeBloodVenous blood / Ofrtjac1608/06/2025 6:37 AM EST Narrative Authorizing ProviderResult TypeResult StatusKassidy Cheko HERNÁNDEZBLOOD BANK PRODUCT ORDERABLESFinal ResultPerforming OrganizationAddressCity/State/ZIP CodePhone Number [facility] * (ABNORMAL) Comprehensive metabolic panel (08/06/2025 6:23 AM EST)Component ValueRef RangeTest MethodAnalysis TimePerformed AtPathologist SignatureSODIUM 456354 - 146 mmol/L110/06/2024 7:33 AM [facility] POTASSIUM3.63.5 - 5.0 mmol/L110/06/2024 7:33 AM [facility] GXZODWODXYSXUUPUVQ492(H)98 - 109 mmol/L110/06/2024 7:33 AM [facility] LABORATORYCARBON VSOASSF23(L)22 - 32 mmol/L110/06/2024 7:33 AM [facility] LABORATORYANION CPX480 - 15 mmol/L110/06/2024 7:33 AM [facility] LABORATORYBLOOD UREA OLWJWFNJ928 - 27 mg/dL 08/06/2025 7:33 AM [facility] LABORATORYCREATININE0.680.40 - 1.00 mg/dL08/06/2025 7:33 AM [facility] LABORATORYComment: METHOD TRACEABLE TO IDMS RMDYZYGCEUVQIDJ498(H)65 - 99 mg/dL08/06/2025 7:33 AM [facility] LABORATORYCALCIUM8.1(L)8.5 - 10.5 mg/dL08/06/2025 7:33 AM [facility] LABORATORYTOTAL PROTEIN5.6(L)6.0 - 8.0 g/dL08/06/2025 7:33 AM [facility] LABORATORYALBUMIN3.23.2 - 5.3 g/dL08/06/2025 7:33 AM [facility] LABORATORYALKALINE WHGDJFBXJIB1672 - 130 U/L110/06/2024 7:33 AM [facility] DTGOTSWBBBLRD70<=41 U/L110/06/2024 7:33 AM [facility] LABORATORYALT5<=31 U/L110/06/2024 7:33 AM [facility] LABORATORYBILIRUBIN,TOTAL0.70.3 - 1.2 mg/dL08/06/2025 7:33 AM [facility]ORYEGFR Non-Race Dependent>90>=60 ml/min/1.73sq.m 08/06/2025 7:33 AM [facility] LABORATORYComment: Reported eGFR is based on the CKD-EPI 2020 equation that does not use a race coefficient. Specimen (Source)Anatomical Location / LateralityCollection Method / Volume Collection TimeReceived TimeBloodVenous blood / UnknownVenipuncture / Unknown 08/06/2025 6:23 AM EST08/06/2025 7:03 AM EST Narrative Authorizing ProviderResult TypeResult StatusHala Magdaleno PASCUAL BLOOD ORDERABLESFinal ResultPerforming OrganizationAddressCity/State/ZIP CodePhone Number [facility] [address] [place] [address], * (ABNORMAL) CBC auto differential (08/06/2025 6:23 AM EST)ComponentValueRef RangeTest MethodAnalysis TimePerformed AtPathologist RniyauaxoAPF23.4(H)4 - 11 X10^9/L110/06/2024 8:07 AM [facility] LABORATORYRBC Count2.87 (L)3.8 - 5.2 X10^12/L110/06/2024 8:07 AM [facility] Hemoglobin8.3(L)11.7 - 15.5 g/dL08/06/2025 8:07 AM [facility] DSQIDOSCYUHumgxsykox68.4(L)35 - 47 %08/06/2025 8:07 AM [facility] ORWUWXCUXDNMY2802 - 100 fL08/06/2025 8:07 AM [facility] JHHLHBMVGXEIU55.027 - 34 pg08/06/2025 8:07 AM [facility] UUJTMISZQKPVGY18.832 - 36 g/dL08/06/2025 8:07 AM [facility] BFTMVBUQYVLDD01.2(H)11.5 - 15 %08/06/2025 8:07 AM [facility] LABORATORYPlatelet Mjiht767964 - 450 X10^9/L110/06/2024 8:07 AM [facility] LABORATORYMPV8.27 - 12 fL08/06/2025 8:07 AM [facility] LABORATORYNeutrophils %78%08/06/2025 8:07 AM [facility] LABORATORYComment:This is an appended report. These results have been appended to a previously preliminary verified report.Lymphocytes %16 %08/06/2025 8:07 AM [facility] LABORATORYComment:This is an appended report. These results have been appended to a previously preliminary verified report.Monocytes %5%08/06/2025 8:07 AM [facility] LABORATORYComment:This is an appended report. These results have been appended to a previously preliminary verified report.Eosinophils %1%08/06/2025 8:07 AM [facility] LABORATORYComment:This is an appended report. These results have been appended to a previously preliminary verified report. Neutrophils Absolute (M)16.7(H)1.5 - 6.6 X10^9/L110/06/2024 8:07 AM [facility] LABORATORYComment:This is an appended report. These results have been appended to a previously preliminary verified report.Lymphocytes Absolute3.41.0 - 3.5 X10^9/L110/06/2024 8:07 AM [facility] LABORATORYComment:This is an appended report. These results have been appended to a previously preliminary verified report.Monocytes Absolute1.1(H)0.0 - 0.9 X10^9/L110/06/2024 8:07 AM [facility] LABORATORYComment:This is an appended report. These results have been appended to a previously preliminary verified report.Eosinophils Absolute0.20.0 - 0.4 X10^9/L110/06/2024 8:07 AM [facility] LABORATORYComment:This is an appended report. These results have been appended to a previously preliminary verified report.Polychromasia1+08/06/2025 8:07 AM [facility] LABORATORYComment:This is an appended report. These results have been appended to a previously preliminary verified report.Differential TypeMANUAL QHHGSVCWCCLV66/10/2025 8:07 AM [facility] LABORATORYComment: This is an appended report. These results have been appended to a previously preliminary verified report.Specimen (Source)Anatomical Location / Laterality Collection Method / VolumeCollection TimeReceived TimeBloodVenous blood / UnknownVenipuncture / Mhtixbr3808/06/2025 6:23 AM EST08/06/2025 7:03 AM EST Narrative Authorizing ProviderResult TypeResult StatusHala Magdaleno PASCUAL BLOOD ORDERABLESFinal ResultPerforming OrganizationAddressCity/State/ZIP CodePhone Number [facility] [address] [place] [address], * (ABNORMAL) Comprehensive metabolic panel (08/05/2025 8:11 PM EST)Component ValueRef RangeTest MethodAnalysis TimePerformed AtPathologist SignatureSODIUM 374306 - 146 mmol/L110/05/2024 8:57 PM [facility] POTASSIUM3.3(L)3.5 - 5.0 mmol/L110/05/2024 8:57 PM [facility] DPWDGENIPZXIHNBNSH193(H)98 - 109 mmol/L110/05/2024 8:57 PM [facility] LABORATORYCARBON YZPRIUY16(L)22 - 32 mmol/L110/05/2024 8:57 PM EST [facility] LABORATORYANION GAP75 - 15 mmol/L11/05/2025 8:57 PM [facility] LABORATORYBLOOD UREA PITCMQFG457 - 27 mg/dL 08/05/2025 8:57 PM [facility] LABORATORYCREATININE0.680.40 - 1.00 mg/dL08/05/2025 8:57 PM [facility] LABORATORYComment: METHOD TRACEABLE TO IDMS JGXDWTNAIUKQOUW012(H)65 - 99 mg/dL08/05/2025 8:57 PM [facility] LABORATORYCALCIUM8.0(L)8.5 - 10.5 mg/dL08/05/2025 8:57 PM [facility] LABORATORYTOTAL PROTEIN5.4(L)6.0 - 8.0 g/dL08/05/2025 8:57 PM [facility] LABORATORYALBUMIN3.0(L)3.2 - 5.3 g/dL08/05/2025 8:57 PM [facility] LABORATORYALKALINE LUOQAXSZGWY5729 - 130 U/L110/05/2024 8:57 PM [facility] JMKWDSOQQVCSO00<=41 U/L110/05/2024 8:57 PM [facility] LABORATORYALT5<=31 U/L110/05/2024 8:57 PM [facility] LABORATORYBILIRUBIN,TOTAL0.60.3 - 1.2 mg/dL08/05/2025 8:57 PM [facility]OR[facility]ORYEGFR Non-Race Dependent>90>=60 ml/min/1.73sq.m 08/05/2025 8:57 PM [facility] LABORATORYComment: Reported eGFR is based on the CKD-EPI 2020 equation that does not use a race coefficient. Specimen (Source)Anatomical Location / LateralityCollection Method / Volume Collection TimeReceived TimeBloodVenous blood / UnknownVenipuncture / Unknown 08/05/2025 8:11 PM EST08/05/2025 8:30 PM EST Narrative Authorizing ProviderResult TypeResult StatusHallillie PASCUAL BLOOD ORDERABLESFinal ResultPerforming OrganizationAddressCity/State/ZIP CodePhone Number [facility] [address] [place] [address], [place] [phone] * CT chest with contrast (08/05/2025 12:11 [...] 08/06/2025 7:20 AM Authorizing ProviderResult TypeResult StatusAlexandria Lasbarta DOI CT ORDERABLESFinal Result * (ABNORMAL) CBC auto differential (08/05/2025 4:02 AM EST)ComponentValueRef RangeTest MethodAnalysis TimePerformed AtPathologist SmvqrpsgjHAC12.8(H)4 - 11 X10^9/L110/05/2024 6:43 AM [facility] LABORATORYRBC Count2.76 (L)3.8 - 5.2 X10^12/L110/05/2024 6:43 AM [facility] Hemoglobin8.0(L)11.7 - 15.5 g/dL08/05/2025 6:43 AM [facility] XQSMJQDBJBDrlgfjqqoe46.4(L)35 - 47 %08/05/2025 6:43 AM [facility] ZSXPXACXWCVLS9420 - 100 fL08/05/2025 6:43 AM [facility] AOKASLJBAKTNM67.127 - 34 pg08/05/2025 6:43 AM [facility] BAKVRKLHFUDNJM67.032 - 36 g/dL08/05/2025 6:43 AM [facility] IMACEQNGORKGI54.8(H)11.5 - 15 %08/05/2025 6:43 AM [facility] LABORATORYPlatelet Jlxgg839579 - 450 X10^9/L110/05/2024 6:43 AM [facility] LABORATORYMPV8.17 - 12 fL08/05/2025 6:43 AM [facility] LABORATORYNeutrophils %84.1%08/05/2025 6:43 AM [facility] LABORATORYComment:This is an appended report. These results have been appended to a previously preliminary verified report.Lymphocytes % 10.6%08/05/2025 6:43 AM [facility] LABORATORYComment:This is an appended report. These results have been appended to a previously preliminary verified report.Monocytes %5.1%08/05/2025 6:43 AM [facility] LABORATORYComment:This is an appended report. These results have been appended to a previously preliminary verified report.Eosinophils % 0.0%08/05/2025 6:43 AM [facility] LABORATORYComment:This is an appended report. These results have been appended to a previously preliminary verified report.Basophils %0.2%08/05/2025 6:43 AM [facility] LABORATORYComment:This is an appended report. These results have been appended to a previously preliminary verified report.Neutrophils Absolute (A)16.6(H)1.5 - 6.6 X10^9/L110/05/2024 6:43 AM [facility] LABORATORYComment:This is an appended report. These results have been appended to a previously preliminary verified report.Lymphocytes Absolute2.1 1.0 - 3.5 X10^9/L110/05/2024 6:43 AM [facility] Comment:This is an appended report. These results have been appended to a previously preliminary verified report.Monocytes Absolute1.0(H)0.0 - 0.9 X10^9/L110/05/2024 6:43 AM [facility] LABORATORYComment:This is an appended report. These results have been appended to a previously preliminary verified report.Eosinophils Absolute0.00.0 - 0.4 X10^9/L110/05/2024 6:43 AM [facility] LABORATORYComment:This is an appended report. These results have been appended to a previously preliminary verified report.Basophils Absolute0.00.0 - 0.2 X10^9/L110/05/2024 6:43 AM [facility] LABORATORYComment:This is an appended report. These results have been appended to a previously preliminary verified report.Differential TypeAUTOMATED JUGYEEGJVBYQ76/09/2025 6:43 AM [facility] LABORATORYComment:This is an appended report. These results have been appended to a previously preliminary verified report.Specimen (Source)Anatomical Location / LateralityCollection Method / VolumeCollection TimeReceived Time BloodVenous blood / UnknownVenipuncture / Oexgkxv9008/05/2025 4:02 AM EST 08/05/2025 4:20 AM EST Narrative Authorizing ProviderResult TypeResult StatusKassidy Rejent MDLAB BLOOD ORDERABLESFinal ResultPerforming OrganizationAddressCity/State/ZIP CodePhone Number [facility] [address] [place] [address], [place] [phone] * (ABNORMAL) Comprehensive metabolic panel (08/05/2025 4:02 AM EST)Component ValueRef RangeTest MethodAnalysis TimePerformed AtPathologist SignatureSODIUM 246016 - 146 mmol/L110/05/2024 4:52 AM [facility] POTASSIUM3.53.5 - 5.0 mmol/L110/05/2024 4:52 AM [facility] XMAIHBCHZYTHYHUABI464(H)98 - 109 mmol/L110/05/2024 4:52 AM [facility] LABORATORYCARBON LSECWXF77(L)22 - 32 mmol/L110/05/2024 4:52 AM EST [facility] LABORATORYANION GAP75 - 15 mmol/L110/05/2024 4:52 AM [facility] LABORATORYBLOOD UREA DHUCUSYI456 - 27 mg/dL 08/05/2025 4:52 AM [facility] LABORATORYCREATININE0.690.40 - 1.00 mg/dL08/05/2025 4:52 AM [facility] LABORATORYComment: METHOD TRACEABLE TO IDMS COGQPRHUGGWFZJS329(H)65 - 99 mg/dL08/05/2025 4:52 AM [facility] LABORATORYCALCIUM8.0(L)8.5 - 10.5 mg/dL08/05/2025 4:52 AM [facility] LABORATORYTOTAL PROTEIN5.2(L)6.0 - 8.0 g/dL08/05/2025 4:52 AM [facility] LABORATORYALBUMIN3.0(L)3.2 - 5.3 g/dL08/05/2025 4:52 AM [facility] LABORATORYALKALINE [id number] - 130 U/L110/05/2024 4:52 AM [facility] [id number]<=41 U/L110/05/2024 4:52 AM [facility] LABORATORYALT5<=31 U/L110/05/2024 4:52 AM [facility] LABORATORYBILIRUBIN,TOTAL0.70.3 - 1.2 mg/dL08/05/2025 4:52 AM [facility] LABORATORYEGFR Non-Race Dependent>90>=60 ml/min/1.73sq.m 08/05/2025 4:52 AM [facility] LABORATORYComment: Reported eGFR is based on the CKD-EPI 2020 equation that does not use a race coefficient. Specimen (Source)Anatomical Location / LateralityCollection Method / Volume Collection TimeReceived TimeBloodVenous blood / UnknownVenipuncture / Unknown 08/05/2025 4:02 AM EST08/05/2025 4:20 AM EST Narrative Authorizing ProviderResult TypeResult StatusKassidy Rejent MDLAB BLOOD ORDERABLESFinal ResultPerforming OrganizationAddressCity/State/ZIP CodePhone Number [facility] [address] [place] [address], * Transfuse RBC:2 Units (08/04/2025 9:09 PM EST) Narrative Authorizing ProviderResult TypeResult StatusKassidy Rejent MDBLOOD TRANSFUSION ORDERABLESFinal Result * Transfuse RBC:2 Units (08/04/2025 9:09 PM EST) Narrative Authorizing ProviderResult TypeResult StatusKassidy Rejent MDBLOOD TRANSFUSION ORDERABLESFinal Result * (ABNORMAL) CBC auto differential (08/04/2025 12:18 PM EST)ComponentValueRef RangeTest MethodAnalysis TimePerformed AtPathologist OmfmjcequEUE32.4(H)4 - 11 X10^9/L110/04/2024 2:03 PM [facility] LABORATORYRBC Count3.12 (L)3.8 - 5.2 X10^12/L110/04/2024 2:03 PM [facility] Hemoglobin9.1(L)11.7 - 15.5 g/dL08/04/2025 2:03 PM [facility] NCPUNSTKRUYvrfyhhqvz75.6(L)35 - 47 %08/04/2025 2:03 PM [facility] WTXIEDAIIBVER1664 - 100 fL08/04/2025 2:03 PM [facility] QKRNDRONZANKO82.027 - 34 pg08/04/2025 2:03 PM [facility] BMMFQPYRNPQXBM07.832 - 36 g/dL08/04/2025 2:03 PM [facility] GCUOVBXQLOHLP55.8(H)11.5 - 15 %08/04/2025 2:03 PM [facility] LABORATORYPlatelet Llfhu162114 - 450 X10^9/L110/04/2024 2:03 PM [facility] LABORATORYMPV8.37 - 12 fL08/04/2025 2:03 PM [facility] LABORATORYNeutrophils %88.9%08/04/2025 2:03 PM [facility] LABORATORYComment:This is an appended report. These results have been appended to a previously preliminary verified report.Lymphocytes % 8.7%08/04/2025 2:03 PM [facility] LABORATORYComment:This is an appended report. These results have been appended to a previously preliminary verified report.Monocytes %1.7%08/04/2025 2:03 PM [facility] LABORATORYComment:This is an appended report. These results have been appended to a previously preliminary verified report.Eosinophils % 0.4%08/04/2025 2:03 PM [facility] LABORATORYComment:This is an appended report. These results have been appended to a previously preliminary verified report.Basophils %0.3%08/04/2025 2:03 PM [facility] LABORATORYComment:This is an appended report. These results have been appended to a previously preliminary verified report.Neutrophils Absolute (A)12.8(H)1.5 - 6.6 X10^9/L110/04/2024 2:03 PM [facility] LABORATORYComment:This is an appended report. These results have been appended to a previously preliminary verified report.Lymphocytes Absolute1.2 1.0 - 3.5 X10^9/L110/04/2024 2:03 PM [facility] Comment:This is an appended report. These results have been appended to a previously preliminary verified report.Monocytes Absolute0.20.0 - 0.9 X10^9/L 08/04/2025 2:03 PM [facility] LABORATORYComment:This is an appended report. These results have been appended to a previously preliminary verified report.Eosinophils Absolute0.10.0 - 0.4 X10^9/L110/04/2024 2:03 PM EST [facility]This is an appended report. These results have been appended to a previously preliminary verified report. Basophils Absolute0.00.0 - 0.2 X10^9/L110/04/2024 2:03 PM [facility] LABORATORYComment:This is an appended report. These results have been appended to a previously preliminary verified report.Elliptocytes1+08/04/2025 2:03 PM [facility] LABORATORYComment:This is an appended report. These results have been appended to a previously preliminary verified report.Differential TypeAUTOMATED GWVRHUDEBZBI65/08/2025 2:03 PM [facility] LABORATORYComment:This is an appended report. These results have been appended to a previously preliminary verified report.Specimen (Source)Anatomical Location / LateralityCollection Method / VolumeCollection TimeReceived TimeBloodVenous blood / UnknownVenipuncture / Yxvugic2808/04/2025 12:18 PM EST08/04/2025 12:27 PM EST Narrative Authorizing ProviderResult TypeResult StatusAlexandria Lasro[facility] DOLAB BLOOD ORDERABLESFinal ResultPerforming OrganizationAddressCity/State/ZIP CodePhone Number [facility] [address] [place] [address], * Transfuse RBC:2 Units (08/04/2025 10:00 AM [...] AM EST)ComponentValueRef RangeTest Method Analysis TimePerformed AtPathologist OmrapzisyCBIV74/08/2025 8:26 AM ESTTTH BB - MEYLRJTBFVdxlrwcn36/08/2025 8:26 AM ESTTTH BB - WELLSKYSpecimen (Source) Anatomical Location / LateralityCollection Method / VolumeCollection Time Received TimeBloodVenous blood / UnknownVenipuncture / Idygevk8108/04/2025 7:41 AM EST08/04/2025 8:14 AM EST Narrative Authorizing ProviderResult TypeResult StatusAleia K Catherine MDBLOOD BANK TEST ORDERABLESFinal ResultPerforming OrganizationAddressCity/State/ZIP CodePhone Number [facility] BB - [place] [address] [place] [address], * Crossmatch RBC:Number of Units: 2 (08/04/2025 5:30 AM EST)ComponentValueRef RangeTest MethodAnalysis TimePerformed AtPathologist SignatureBlood component [id number] BANK - [place]LL[place]YUnit [id number] BANK - [place] Unit ABOOBLOOD BANK - WELL[place]YUnit RHNEGBLOOD BANK - WELLSKYCrossmatch CompatibleBLOOD BANK - WELLSKYStatus of unitTRANSFUSEDBLOOD BANK - [place] Expiration [id number] BANK - WELLSKYBB Type [id number] BANK - WELLSKYBlood component [id number] BANK - WELLSKYUnit number [id number] BANK - WELLSKYUnit ABOOBLOOD BANK - WELLSKYUnit RHNEG BLOOD BANK - JOELCrossmatchCompatibleBLOOD BANK - JOELStatus of unit TRANSFUSEDBLOOD BANK - JOELExpiration [id number] BANK - [place] BB Type [id number] BANK - WELLSKYSpecimen (Source)Anatomical Location / LateralityCollection Method / VolumeCollection TimeReceived TimeBlood 08/04/2025 5:30 AM EST08/04/2025 5:47 AM EST Narrative Authorizing ProviderResult TypeResult StatusMicssivelisse Still MDBLOOD BANK PRODUCT ORDERABLESEdited Result - FinalPerforming OrganizationAddressCity/State/ZIP Code Phone Number [facility] - [place] * Fibrinogen (08/04/2025 5:30 AM EST)ComponentValueRef RangeTest MethodAnalysis TimePerformed AtPathologist UmnoxznkdMAVHJRCTAH812674 - 480 mg/dL08/04/2025 6:07 AM [facility] LABORATORYSpecimen (Source)Anatomical Location / LateralityCollection Method / VolumeCollection TimeReceived Time BloodVenous blood / UnknownVenipuncture / Sfzabdk6308/04/2025 5:30 AM EST 08/04/2025 5:42 AM EST Narrative Authorizing ProviderResult TypeResult StatusAnnita Still MDLAB BLOOD ORDERABLESFinal ResultPerforming OrganizationAddressCity/State/ZIP CodePhone Number [facility] [address] [place] [id number], * (ABNORMAL) APTT (08/04/2025 5:30 AM EST)ComponentValueRef RangeTest Method Analysis TimePerformed AtPathologist DzftqluquMLHB59(L)26 - 37 sec08/04/2025 6:07 AM [facility] LABORATORYSpecimen (Source)Anatomical Location / LateralityCollection Method / VolumeCollection TimeReceived Time BloodVenous blood / UnknownVenipuncture / Sxfiioj8908/04/2025 5:30 AM EST 08/04/2025 5:42 AM EST Narrative Authorizing ProviderResult TypeResult StatusKassidnolan Still MDLAB BLOOD ORDERABLESFinal ResultPerforming OrganizationAddressCity/State/ZIP CodePhone Number [facility] [address] [place] [address], * Protime & INR (08/04/2025 5:30 AM EST)ComponentValueRef RangeTest Method Analysis TimePerformed AtPathologist XzfidtgprWTLQDQR08.89.8 - 13.2 sec 08/04/2025 6:07 AM [facility] LABORATORYINR1.00.9 - 1.2 08/04/2025 6:07 AM [facility] LABORATORYSpecimen (Source) Anatomical Location / LateralityCollection Method / VolumeCollection Time Received TimeBloodVenous blood / UnknownVenipuncture / Hixahzw4808/04/2025 5:30 AM EST08/04/2025 5:42 AM EST Narrative Authorizing ProviderResult TypeResult StatusAnnita Still MDLAB BLOOD ORDERABLESFinal ResultPerforming OrganizationAddressCity/State/ZIP CodePhone Number [facility] [address] [place] [address], * Type and screen (08/04/2025 5:30 AM EST)ComponentValueRef RangeTest Method Analysis TimePerformed AtPathologist HpfrqioosNFJI42/08/2025 8:20 AM ESTTTH BB - LNMELPMIJAftouqpu42/08/2025 8:20 AM ESTTTH BB - WELLSKYAntibody Screen Menlxinx48/08/2025 8:20 AM ESTTTH BB - WELLSKYSpecimen (Source)Anatomical Location / LateralityCollection Method / VolumeCollection TimeReceived Time BloodVenous blood / UnknownVenipuncture / Idguojs7608/04/2025 5:30 AM EST 08/04/2025 5:46 AM EST Narrative Authorizing ProviderResult TypeResult StatusAnnita Still MDBLOOD BANK TEST ORDERABLESEdited Result - FinalPerforming OrganizationAddressCity/State/ZIP Code Phone Number [facility] RAJI - [place] [address] [place] [address], * (ABNORMAL) CBC auto differential (08/04/2025 5:30 AM EST)ComponentValueRef RangeTest MethodAnalysis TimePerformed AtPathologist CsszzpylxKWM49.7(H)4 - 11 X10^9/L110/04/2024 7:43 AM [facility] LABORATORYRBC Count2.10 (L)3.8 - 5.2 X10^12/L110/04/2024 7:43 AM [facility] Hemoglobin5.8(LL)11.7 - 15.5 g/dL08/04/2025 7:43 AM [facility] AAXBEVKSAAHznyryhhxa15.0(L)35 - 47 %08/04/2025 7:43 AM [facility] GCNDFJRUESSZN0564 - 100 fL08/04/2025 7:43 AM [facility] IFGFPTBMLIHMF77.727 - 34 pg08/04/2025 7:43 AM [facility] RBXVURMWEKCRVT96.532 - 36 g/dL08/04/2025 7:43 AM [facility] HWOUMNTGXYWMK75.3(H)11.5 - 15 %08/04/2025 7:43 AM [facility] LABORATORYPlatelet Lknfp579696 - 450 X10^9/L110/04/2024 7:43 AM [facility] LABORATORYMPV8.37 - 12 fL08/04/2025 7:43 AM [facility] LABORATORYNeutrophils %82%08/04/2025 7:43 AM [facility]ATORYComment:This is an appended report. These results have been appended to a previously preliminary verified report. Lymphocytes %16%08/04/2025 7:43 AM [facility] Comment:This is an appended report. These results have been appended to a previously preliminary verified report.Monocytes %2%08/04/2025 7:43 AM [facility]ATORYComment:This is an appended report. These results have been appended to a previously preliminary verified report. Neutrophils Absolute (M)11.2(H)1.5 - 6.6 X10^9/L11/04/2025 7:43 AM [facility] LABORATORYComment:This is an appended report. These results have been appended to a previously preliminary verified report.Lymphocytes Absolute2.21.0 - 3.5 X10^9/L110/04/2024 7:43 AM [facility]ORATORYComment:This is an appended report. These results have been appended to a previously preliminary verified report.Monocytes Absolute0.30.0 - 0.9 X10^9/L110/04/2024 7:43 AM [facility]ORATORYComment:This is an appended report. These results have been appended to a previously preliminary verified report.Elliptocytes1+08/04/2025 7:43 AM [facility]ORATORYComment:This is an appended report. These results have been appended to a previously preliminary verified report.Differential TypeMANUAL JDPQYUWCCZRP74/08/2025 7:43 AM [facility]ORATORYComment:This is an appended report. These results have been appended to a previously preliminary verified report.Specimen (Source)Anatomical Location / LateralityCollection Method / VolumeCollection TimeReceived Time BloodVenous blood / UnknownVenipuncture / Dblhifj6008/04/2025 5:30 AM EST 08/04/2025 5:42 AM EST Narrative Authorizing ProviderResult TypeResult StatusKassidy Rejent [facility] BLOOD ORDERABLESFinal ResultPerforming OrganizationAddressCity/State/ZIP CodePhone Number [facility] [address] [place] [address], * (ABNORMAL) Comprehensive metabolic panel (08/04/2025 5:30 AM EST)Component ValueRef RangeTest MethodAnalysis TimePerformed AtPathologist SignatureSODIUM 295574 - 146 mmol/L110/04/2024 6:15 AM [facility] POTASSIUM3.63.5 - 5.0 mmol/L110/04/2024 6:15 AM [facility] UDKMNERQCPBEZTHLAH273(H)98 - 109 mmol/L110/04/2024 6:15 AM [facility] LABORATORYCARBON VWIVBSO18(L)22 - 32 mmol/L110/04/2024 6:15 AM [facility] LABORATORYANION GAP95 - 15 mmol/L110/04/2024 6:15 AM [facility] LABORATORYBLOOD UREA CLYOOHOI667 - 27 mg/dL 08/04/2025 6:15 AM [facility] LABORATORYCREATININE0.600.40 - 1.00 mg/dL08/04/2025 6:15 AM [facility] LABORATORYComment: METHOD TRACEABLE TO IDMN USFJTYEIINUGRNM509(H)65 - 99 mg/dL08/04/2025 6:15 AM [facility] LABORATORYCALCIUM7.8(L)8.5 - 10.5 mg/dL08/04/2025 6:15 AM [facility] LABORATORYTOTAL PROTEIN5.4(L)6.0 - 8.0 g/dL08/04/2025 6:15 AM [facility] LABORATORYALBUMIN3.1(L)3.2 - 5.3 g/dL08/04/2025 6:15 AM [facility] LABORATORYALKALINE CXMSGIBPPNE4721 - 130 U/L110/04/2024 6:15 AM [facility] HTSYGWYPHKRSK18<=41 U/L110/04/2024 6:15 AM [facility] LABORATORYALT5<=31 U/L110/04/2024 6:15 AM [facility] LABORATORYBILIRUBIN,TOTAL0.30.3 - 1.2 mg/dL08/04/2025 6:15 AM [facility] LABORATORYEGFR Non-Race Dependent>90>=60 ml/min/1.73sq.m 08/04/2025 6:15 AM [facility] LABORATORYComment: Reported eGFR is based on the CKD-EPI 2020 equation that does not use a race coefficient. Specimen (Source)Anatomical Location / LateralityCollection Method / Volume Collection TimeReceived TimeBloodVenous blood / UnknownVenipuncture / Unknown 08/04/2025 5:30 AM EST08/04/2025 5:42 AM EST Narrative Authorizing ProviderResult TypeResult StatusKassidy Cheko PASCUAL BLOOD ORDERABLESFinal ResultPerforming OrganizationAddressCity/State/ZIP CodePhone Number [facility] [address] [place] [address], [place] [phone] documented in this encounter Visit Diagnoses Not [...] 08/05/25 at 1621 Given08/09/2025 9:44 AM EST1,000 uhJrjxx0008/06/2025 7:58 AM EST1,000 mg bisacodyL (DULCOLAX) suppository [...] First dose on [place] 08/09/25 at 1030 Indications:MkuwsuZpibm95/13/2025 12:05 PM EST20 mg glucagon HCL injection [...] indication for use. lidocaine-EPINEPHrine (XYLOCAINE W/EPI) 1 %-1:149405 injection As needed, Starting on Wed08/07/25 at 1611, Intra-op Given08/07/2025 4:11 PM EST14 [...] Administration: IV Push Given08/09/2025 4:27 PM EST8 hxDwxrx7508/09/2025 4:53 AM EST8 dkIvvht3108/08/2025 7:41 PM EST8 mg oxyCODONE (ROXICODONE) immediate [...] use. Immediate release. Given08/09/2025 4:53 AM EST5 myHueyt3108/08/2025 7:41 PM EST5 qvUrshw8408/08/2025 2:49 PM EST5 mg potassium chloride (K-TAB,KLOR-CON) [...] 1 hour. New Bag08/06/2025 2:09 AM EST10 sMw565 mL/hrNew Bag08/06/2025 12:57 AM EST10 mEq 100 mL/hrNew Bag08/05/2025 11:45 PM EST10 tHi126 mL/hr prochlorperazine (COMPAZINE) injection 5 mg 5 mg, intravenous, Every 8 hours PRN, nausea, vomiting, Starting on Wed08/05/25 at 2106, When administered via IV Push, do not exceed 5 mg per minute Given08/07/2025 2:14 AM EST5 znKxptw8508/06/2025 7:59 AM EST5 bsYcgsa8608/05/2025 9:15 PM EST5 mg senna (SENOKOT) tablet 8.6 mg 8.6 mg, oral, 2 times daily, First dose on Wed08/08/25 at 0900 Given08/09/2025 9:43 AM EST8.6 tuOyjzb2208/08/2025 9:27 PM EST8.6 mgGiven 08/08/2025 9:31 AM EST8.6 mg simethicone (MYLICON) chewable tablet 80 mg 80 mg, oral, 4 times daily PRN, flatulence, Starting on Wed08/05/25 at 1939 Given08/08/2025 12:43 PM EST80 nkQebvz54/05/2025 8:55 PM EST80 mg sodium chloride 0.9 % flush 10 mL 10 mL, intravenous, As needed, line care, Starting on 08/05/25 at 1158 08/05/2025 12:14 PM EST10 mL sodium chloride 0.9 % flush 3 mL 3 mL, intravenous, As needed, line care, before and after each intermittent use, Starting on Wed08/04/25 at 0336 sodium chloride 0.9 % flush 3 mL 3 mL, intravenous, Every 12 hours scheduled, First dose on Wed08/04/25 at 0900 08/09/2025 9:47 AM EST3 ePLiskf1008/08/2025 9:27 PM EST3 pVXhxee4808/08/2025 9:31 AM EST3 mL sodium chloride 0.9 [...] Wed08/04/25 at 1400 08/09/2025 9:47 AM EST1 msgyAewcy62/12/2025 9:28 PM EST1 dropGiven 08/08/2025 9:31 AM [...] - Provider: Amber Parker RN) * 113 (MAR Hold - Provider: User Epic - Reason: Patient not available) * 174 (MAR Unhold - Provider: User Epic) * 2012 (Given - Provider: Joana Ibarra RN) * 930 (Given - Provider: Amber Parker RN) * 2127 (Given - Provider: Joana Ibarra RN) * 0947 (Given - Provider: Akiko Torres RN) Medication Order511/511/ lactated ringers infusion (CANCELED) 50 mL/hr, intravenous, [...] Starting on Wed08/05/25 at 1621 * 1134 ([facility] Hold - Provider: User Epic - Reason: Patient not available) * 1744 ([facility] Unhold - Provider: User Epic) * 0944 [...] after initial treatment, repeat treatment. * 1134 ([facility] Hold - Provider: User Epic - Reason: Patient not available) * 1744 ([facility] Unhold - Provider: User Epic) dextrose (GLUTOSE) 40 % gel 15 g 15 g, oral, As needed, low blood sugar, blood glucose less than 70 mg/dL, Starting on 08/04/25 at 1031, If patient conscious and taking PO. If blood glucose is not greater than 70 mg/dL after initial treatment, repeat treatment. * 1134 ([facility] Hold - Provider: User Epic - Reason: Patient not available) * 1744 ([facility] Unhold - Provider: User Epic) dextrose 5 [...] after initial treatment, repeat treatment. * 1134 ([facility] Hold - Provider: User Epic - Reason: Patient not available) * 1744 ([facility] Unhold - Provider: User Epic) dextrose 5 [...] after initial treatment, repeat treatment. * 1134 ([facility] Hold - Provider: User Epic - Reason: Patient not available) * 1744 ([facility] Unhold - Provider: User Epic) dextrose 50 [...] VESICANT (RED) Warning: HYPERTONIC solution. * 1134 ([facility] Hold - Provider: User Epic - Reason: Patient not available) * 1744 ([facility] Unhold - Provider: User Epic) dextrose 50 [...] VESICANT (RED) Warning: HYPERTONIC solution. * 1134 ([facility] - Provider: User Epic - Reason: Patient not available) * 1744 ([facility] Unhold - Provider: User Epic) fentaNYL (SUBLIMAZE) injection 50 mcg (CANCELED) 50 mcg, intravenous, Every 5 min PRN, Pain Scale 6-10, Starting on Tu08/07/25 at 1607, PACU (only), Up to a [...] after initial treatment, repeat treatment. * 1134 ([facility] Hold - Provider: User Epic - Reason: Patient not available) * 1744 ([facility] Unhold - Provider: User Epic) glucagon HCL [...] after initial treatment, repeat treatment. * 1134 ([facility] Hold - Provider: User Epic - Reason: Patient not available) * 1744 ([facility] Unhold - Provider: User Epic) HYDROmorphone (DILAUDID) injection 0.5 mg 0.5 mg, intravenous, Every 4 hours PRN, severe pain - pain scale 7-10, breakthrough pain, Starting on 08/04/25 at 1033, If IV push, administer over over 2 to 3 minutes. Look-alike/sound-alike medication - verify indication for use. * 1134 ([facility] Hold - Provider: User Epic - Reason: Patient not available) * 1744 ([facility] Unhold - Provider: User Epic) HYDROmorphone (PF) (DILAUDID) injection 0.5 mg 0.5 mg, intravenous, Every 4 hours PRN, severe pain - pain scale 7-10, breakthrough, give chava first, Starting on 08/04/25 at 0618, If IV push, administer over over 2 to 3 minutes. Look-alike/sound-alike medication - verify indication for use. * 1134 ([facility] Hold - Provider: User Epic - Reason: Patient not available) * 1744 ([facility] Unhold - Provider: User Epic) lidocaine PF (XYLOCAINE) 10 mg/mL (1 %) injection 1 mg (CANCELED) 1 mg (0.1 mL), intradermal, As needed, times 1 per IV attempt for IV start pain control, Starting on Wed08/07/25 at 1238, Pre-op * 1340 (Given - Provider: EDIN Inman) lidocaine-EPINEPHrine (XYLOCAINE W/EPI) 1 %-1:878450 injection (CANCELED) As needed, Starting on Wed08/07/25 at 1611, Intra-op * 1611 (Given - Provider: Dennis Monson MD) ondansetron (PF) (ZOFRAN) injection 8 mg 8 mg, intravenous, Every 8 hours PRN, nausea, vomiting, Starting on Wed08/06/25 at 1145, Intravenous administration preferred to be given over 2-5 minutes., Intravenous Specific Administration: IV Push * 0837 (Given - Provider: Amber Parker RN) * 1134 ([facility] Hold - Provider: User Epic - Reason: Patient not available) * 1744 ([facility] Unhold - Provider: User Epic) * 1941 (Given - Provider: Joana Ibarra, JORDYN) * 0453 (Given - Provider: Joana Ibarra, RN) * 1627 (Given - Provider: Akiko Torres RN) oxyCODONE (ROXICODONE) immediate release tablet 10 mg(Linked Group 1) 10 mg, oral, Every 6 hours PRN, severe pain - pain scale 7-10, Starting on Wed08/07/25 at 0225, Look-alike/sound-alike medication - verify indication for use. Immediate release. * 0829 (See Alternative - Provider: Amber Parker RN) * 1134 ([facility] Hold - Provider: User Epic - Reason: Patient not available) * 1744 (NOV Unhold - Provider: User Epic) * 1755 [...] pain - pain scale 4-6, Starting on 08/07/25 at 0225, Look-alike/sound-alike medication - verify indication for use. Immediate release. * 0829 (Given - Provider: Amber Parker RN) * 1134 (NOV Hold - Provider: User Epic - Reason: Patient not available) * 1744 (NOV Unhold - Provider: User Epic) * 1755 [...] Do not crush or chew. * 1134 ([facility] Hold - Provider: User Epic - Reason: Patient not available) * 1744 ([facility] Unhold - Provider: User Epic) potassium chloride [...] policy and monitor potassium levels * 1134 ([facility] Hold - Provider: User Epic - Reason: Patient not available) * 1744 ([facility] Unhold - Provider: User Epic) potassium chloride [...] a minimum of 1 hour. * 1134 ([facility] Hold - Provider: User Epic - Reason: Patient not available) * 1744 ([facility] Unhold - Provider: User Epic) prochlorperazine (COMPAZINE) injection 5 mg 5 mg, intravenous, Every 8 hours PRN, nausea, vomiting, Starting on 08/05/25 at 2106, When administered via IV Push, do not exceed 5 mg per minute * 0214 (Given - Provider: Akiko Weller RN) * 1134 ([facility] Hold - Provider: User Epic - Reason: Patient not available) * 1744 ([facility] Unhold - Provider: User Epic) simethicone (MYLICON) chewable tablet 80 mg 80 mg, oral, 4 times daily PRN, flatulence, Starting on 08/05/25 at 1939 * 1134 ([facility] Hold - Provider: User Epic - Reason: Patient not available) * 1744 ([facility] Unhold - Provider: User Epic) * 1243 (Given - Provider: Amber Parker RN) sodium chloride 0.9 % flush 10 mL 10 mL, intravenous, As needed, line care, Starting on 08/05/25 at 1158 * 1134 ([facility] Hold - Provider: User Epic - Reason: Patient not available) * 1744 ([facility] Unhold - Provider: User Epic) sodium chloride 0.9 % flush 3 mL 3 mL, intravenous, As needed, line care, before and after each intermittent use, Starting on 08/04/25 at 0336 * 1134 ([facility] Hold - Provider: User Epic - Reason: Patient not available) * 1744 ([facility] Unhold - Provider: User Epic) sodium chloride 0.9 % flush bag 25 mL, intravenous, at 100 mL/hr, Administer over 15 Minutes, As needed, line care, line care afterIVPB administration, Starting on 08/04/25 at 0336 * 1134 ([facility] Hold - Provider: User Epic - Reason: Patient not available) * 1744 ([facility] Unhold - Provider: User Epic) sodium chloride 0.9 % flush bag 25 mL, intravenous, at 100 mL/hr, Administer over 15 Minutes, As needed, line care, line care afterIVPB administration, Starting on 08/04/25 at 1031 * 1134 ([facility] Hold - Provider: User Epic - Reason: Patient not available) * 1744 ([facility] Unhold - Provider: User Epic) Order Group [...] MemberRelationshipSpecialtyStart DateEnd Date Ann Marie Sidhu MD [address] [place] [address] PCP - GeneralFamily Smxaesgx27/9/25documented as of this encounter
--- OUTSIDE RECORDS SUMMARY | 2025-08-07 13:30 | XMS_ITS | Encounter Summary ---
Author Organization [facility] tem Address [id number] [address] [place] [address] Care Team Providers Care Alto Singer Name Role Phone Bin Sidhu MD Primary Care Provider [phone] Reason for Visit * Auth/Cert (Routine)SpecialtyDiagnoses / ProceduresReferred By ContactReferred To Contact Diagnoses Pelvic mass Vagina bleeding Vaginal bleeding pelvic mass/vaginal bleeding Rocio Alexander MD [address] [place] [address] Phone: tel: fax: Referral IDStatusReasonStart DateExpiration DateVisits RequestedVisits [id number] Encounter Details DateTypeDepartmentCare Team (Latest Contact Info)Bumkfjelqes26/11/2025 1:30 PM ESTAnesthesia Event [facility] - Surgery [address] [place] [address]. [place] [phone] Mahendra Rico MD [address] [place] [id number] Evelin Jackson SRNA Anesthesia Record Procedure NameResponsible AnesthesiologistAnesthesia Start TimeAnesthesia Stop TimeDAVINCI HYSTERECTOMY SALPINGO OOPHORECTOMY/RADICAL INTRAPERITONEAL TUMOR DEBULKING (Bilateral)Mahendra Rico MD08/07/25 50492210/07/24 1631DateTimeEvent Uwslual52/11/[id number] Ehyhl6539Sj Start Nzlb0694Sl InductionThe patient was reevaluated immediately before moderate or deep sedation use and before anesthesia induction.1344An Miwmctlmpg1201Gaultrsu9375Cwgvbup Ready for Surgeon 1423Quick NotePRBC per Dr DialloOadzrl0791Wy Ysvnakhyst1452ad stop jkmr2555 Transport/Transfer From the FA8389Lowwivd to RNTransported to:PACU, Spontaneous Ventilation, O2 per Simple face mask, 8 LPM Pt. Tolerated procedure well, vital signs stable and document on nursing record Care transferred to receiving JF3709 An Stop* NameTotalpropofol (DIPRIVAN) sorbqszc263 mgrocuronium (ZEMURON) 50 mg/5 mL airrilucs70 mgdexAMETHasone (DECADRON) injection 4 mg/mL4 mgfentaNYL (SUBLIMAZE) bksxllesr555 mcgondansetron PF (ZOFRAN) 2 mg/mL injection4 mg sugammadex (BRIDION) rqxflmzye767 mgceFAZolin (ANCEF) IVPB 2000 mg/50 mL in iso-osmotic dextrose (40 mg/mL premix)2,000 mgphenylephrine (COLTEN-SYNEPHRINE) injection 10 mg/mL200 mcgalbumin 5% IVPB (premix)37.5 glidocaine PF (XYLOCAINE) 10 mg/mL (1 %) injection 1 mg50 mLpotassium chloride 10 mEq in 100 mL IVPB20 mEqcalcium chloride slfyxuqsa924 mgHYDROmorphone (PF) (DILAUDID) injection 1 mg/mL0.4 mgmidazolam (VERSED) injection 1 mg/mL2 mglactated ringers infusion2,001 mL * Agents Name Isoflurane Inspired Isoflurane * BaukBycegOOYX581 mL KtbyXazheqlCkvxxvmqeOmuqkiqPryfa97/11/25; 1621; Incision; Abdomen; N/A; 5 PORT SITES WITH GLUE08/07/25 162 by DARELL Esteseripheral IVPlacement Date: 08/04/25; Placement Time: 329; Existing LDA Placed by: Other Facility; Orientation: Posterior, Left; Location: Hand; Removal Date: 08/07/25; Removal Time: 329 by Katie Marcano RN08/07/251952 by Joana Ibarra RN Peripheral IVPlacement Date: 08/05/25; Placement Time: 2200; Catheter Size: 20 G; Orientation: Anterior, Right; Location: Forearm; Site Prep: Chlorhexadine; Local Anes: None; Technique: Ultrasound guidance; Inserted by: Araceli Qureshi RN; Insertion Attempts: 1; Patient Tolerance: Tolerated well; Removal Date: ; Removal Time: 1645; Removal Reason: Patient fgdaanbcfw25/09/25 2200 by Emily Qureshi RN08/09/25 1645 by Akiko Torres [facility] IVPlacement Date: 08/07/25; Placement Time: 1341; Catheter Size: 18 G; Orientation: Left; Location: Hand; Site Prep: Alcohol; Technique: Anatomical landmarks; Inserted by: Barbie Jaimes CRNA; Insertion Attempts: 1; Patient Tolerance: Tolerated well; Removal Date: 08/09/25; Removal Time: 1418; Removal Reason: Patient discharged 08/07/25 1341 by Evelin Jackson, EDIN08/09/25 1418 by Akiko Torres RNETT Placement Date: 08/07/25; Placement Time: 1344 (created via procedure documentation); Mask Ventilation: Ventilated by mask; Type: Cuffed; Tube Size: 7 mm; Laryngoscope: Mac; Blade Size: 3; Location: Oral; Grade View: 1; Insertion Attempts: 1; Placement Verification: Auscultation, End tidal CO2, Symmetrical chest wall movement; Removal Date: 08/07/25; Removal Time: 1344 by EDIN Inman08/07/25 1623 by EDIN InmanUrethral Catheter Placement Date: 08/07/25; Placement Time: 1350; Inserted by: DR DIALLO; Type: Single lumen; Size: 14 Fr.; Balloon Size: 10 mL; Urine Returned: Yes; Removal Date: 08/07/25; Removal Time: 1350 by Erin So RN08/07/25 1556 by Lillian Edwards [facility] IVPlacement Date: 08/07/25; Placement Time: 1600 (prior to pacu); Catheter Size: 18 G; Orientation: Right; Location: Hand; Removal Date: 08/09/25; Removal Time: 1418; Removal Reason: Patient discharged 08/07/25 1600 by Juan Carlos Kim RN08/09/25 1418 by Akiko Torres RN documented in this encounter Social History Tobacco UseTypesPacks/DayYears UsedDateSmoking Tobacco: NeverSmokeless Tobacco: NeverAlcohol UseStandard Drinks/WeekCommentsNever0 (1 standard drink = 0.6 oz pure alcohol)PHQ-2AnswerDate RecordedTotal Htjpc18210/04/2024UDIT-CAnswerDate RecordedQ1: How often do you have a [...] ValueDate RecordedSex Assigned at BirthNot on fileLegal SkdCpnggs90/08/2025 12:05 AM ESTGender IdentityNot on fileSexual OrientationNot on filedocumented as of this encounter Mental Status * QuestionAnswerEntry DateAuthorOverall Cognitive BciiwhKKM83/12/2025 9:18 AM ESTFertig, Toya A, OT/L documented in this encounter OR Notes * Anesthesia Postprocedure Evaluation - Mahendra Rico MD - 08/07/2025 4:30 PM EST ANESTHESIA POST-EVALUATION [facility] Procedure Summary Date: 08/07/25 Room / Location: [facility] OR 09 / [facility] Anesthesia Start: 1330 Anesthesia Stop: Procedures: DAVINCI HYSTERECTOMY SALPINGO OOPHORECTOMY/RADICAL INTRAPERITONEAL TUMOR DEBULKING (Bilateral) FLEXIBLE SIGMOIDOSCOPY Diagnosis: (ENDOMETRIAL CANCER) Surgeons: Dennis Diallo MD; Manuel Busby MD Responsible Provider: Mahendra Rico MD Anesthesia Type: general endotracheal ASA Status: 3 Vitals: 08/07/25 1630 BP: 128/58 Pulse: 87 Resp: 19 Temp: 36.6 ??C (97.9 ??F) SpO2: 99% Anesthesia Post Evaluation No notable events documented. * Anesthesia Procedure Notes - EDIN Inman - 08/07/2025 2:11 PM EST Associated Order(s): Airway Airway Patient location during procedure: OR Urgency: Elective Date/Time: 08/07/2025 1:44 PM Airway not difficult IV In Situ: Peripheral General Information and Staff Service Provider: Mahendra Rico MD CUSTOMER SUCCESS REPRESENTATIVE: Karime Mann APRN-CUSTOMER SUCCESS REPRESENTATIVE Student: EDIN Inman Placed by: EDIN Inman Patient Identified, IV Checked, Risks and Benefits Discussed, Surgical Consent, Monitors and Equipment Checked, Pre-op Evaluation and Timeout Performed Fire Risk Assessment Score: 0 Consent for Emergent Airway (if performed for an anesthetic, see related documentation for consents) Risks and benefits: risks, benefits and alternatives were discussed Indications and Patient Condition Sedation level: Deep Preoxygenated: yesPatient position: Supine and Sniffing Mask difficulty assessment: Vent By Mask Indications for airway management: Anesthesia and Airway Protection Complications: No Complicating Factors: No Final Airway Details Final airway type: ETT Endotracheal airway: Cuffed and ETT - Single Lumen Techniques used for successful ETT Placement: With Stylet, Samuels and Video Laryngoscopy Cormack-Lehane Classification: Grade I Endotracheal tube insertion site: Oral Dentition Check Pre: See Pre-Evaluaton documentation Post Intubation Trauma? No Visibility: Cords Clear Blade: Nallely Blade size: #3 Placement verified by: chest auscultation, capnography and symmetrical chest wall movement ETT size: 7.0 mm Measured from: Lips Secured at (cm): 21 Number of attempts at approach: 1 * Anesthesia Preprocedure Evaluation - Mahendra Rico MD - 08/07/2025 12:58 PM EST Images from the original note were not included. 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 ) Induction: Intravenous Airway Management: Video Laryngoscopy and Endotracheal Tube Post op Pain Management: IV Analgesics and PO Analgesics Post-op Transfer Plan: Transfer to PACU NPO Status: Date of last liquid: 08/07/25 Time of last liquid: 0830 Date of last solid: 08/06/25 Time of last solid: 1800 Past Medical History: Diagnosis Date Anemia Glaucoma Rash Visual impairment Past Surgical History: Procedure Laterality Date DILATION CURETTAGE N/A 08/04/2025 Performed by Rocio Alexander MD at [facility] Allergies Allergen Reactions Latex Hives and Facial Swelling Dye Dermatitis Social History Tobacco Use Smoking Status Never Smokeless Tobacco Never Alcohol Use: Not At Risk (08/04/2025) AUDIT-C Frequency of Alcohol Consumption: Never Average Number of Drinks: Patient does not drink Frequency of Binge Drinking: Never OB History: OB History No obstetric history on file. Estimated Date of Delivery: None noted. Scheduled Meds: ceFAZolin (ANCEF) IV, 2,000 mg, intravenous, Once [Transfer Hold] sodium chloride, 3 mL, intravenous, Q12H ION sodium chloride, 3 mL, intravenous, Q12H ION sodium chloride, 3 mL, intravenous, Q12H ION [Transfer Hold] timolol, 1 drop, both eyes, BID Infusion Meds: [Transfer Hold] dextrose 5 % in water, 100 mL/hr [Transfer Hold] dextrose 5 % in water, 100 mL/hr dextrose 5 % in water, 100 mL/hr lactated ringer's, 50 mL/hr, Last Rate: 50 mL/hr (08/07/25 1255) PRN Meds: [Transfer Hold] acetaminophen [Transfer Hold] dextrose [Transfer Hold] dextrose [Transfer Hold] dextrose 5 % in water [Transfer Hold] dextrose 5 % in water dextrose 5 % in water [Transfer Hold] dextrose 50 % in water (D50W) [Transfer Hold] dextrose 50 % in water (D50W) dextrose 50 % in water (D50W) [Transfer Hold] glucagon (human recombinant) [Transfer Hold] glucagon (human recombinant) glucagon (human recombinant) [Transfer Hold] HYDROmorphone [Transfer Hold] HYDROmorphone lidocaine PF [Transfer Hold] ondansetron [Transfer Hold] oxyCODONE OR [Transfer Hold] oxyCODONE [Transfer Hold] potassium chloride OR [Transfer Hold] potassium chloride OR [Transfer Hold]potassium chloride IV (Adult) [Transfer Hold] prochlorperazine [Transfer Hold] simethicone [Transfer Hold] sodium chloride [Transfer Hold] sodium chloride sodium chloride [Transfer Hold] sodium chloride [Transfer Hold] sodium chloride Vitals: BP 117/62 Pulse 77 Temp 37.1 ??C (98.8 ??F) (Skin) Resp 20 Ht 157.5 cm (5' 2.01 ) Wt 76 kg (167 lb 8.8 oz) LMP (LMP Unknown) SpO2 93% BMI 30.64 kg/m?? Vent: Labs: Results from last 7 days Lab Units 08/07/25 0540 WBC X10^9/L 18.4* HEMOGLOBIN g/dL 8.3* HEMATOCRIT % 25.3* PLATELETS X10^9/L 345 Results from last 7 days Lab Units 08/07/25 0540 SODIUM mmol/L 141 POTASSIUM mmol/L 3.2* CHLORIDE mmol/L 110* CO2 mmol/L 23 BUN mg/dL 20 CREATININE mg/dL 0.67 CALCIUM mg/dL 8.0* ALBUMIN g/dL 3.0* AST U/L 10 ALT U/L 4 BILIRUBIN, TOTAL mg/dL 0.7 Results from last 7 days Lab Units 08/04/25 0530 INR 1.0 Echo: No results found. Cath: No results found. EKG: No results found. Stress: No results found. CXR: No results found. Carotid: No results found. Risk Factors: PONV: High Risk Total Score: 3 Score Rules Female patient Non-smoker Intended opioid administration Criteria that do not apply: History of PONV and/or Motion Sickness RCRI: [...] Plan of Treatment DateTypeDepartmentCare Team (Latest Contact Info)Zprbmppmtif26/24/2025Hospital Encounter [facility] - Surgery [address] [place] [address] Justin Mackey MD [address] [place] [address] 08/21/2025 8:00 AM ESTInfusion Paola [facility] [place] - Medical Oncology [address] [place] [address] 08/21/2025 11:00 AM ESTOffice Visit [facility] [address] [place] [phone] Melinda Coffey PA [address] [place] [address] 09/10/2025 11:00 AM ESTInfusion [facility] [address] [place] [address], [place] [phone] 09/10/2025 1:30 PM ESTOffice Visit [facility] Department of [facility] [address] [place] [phone] Annita Patton, SENIOR RESERVOIR ENGINEER-RETAIL TRAINING MANAGER [address] [place] [address] 09/11/2025 8:00 AM ESTInfusion [facility]ola [facility] [address] [place] [phone] NamePriorityAssociated DiagnosesDate/TimeINSERTION PORT A CATH needed for chemotherapy documented as of this encounter Goals GoalPatient Goal TypeAssociated ProblemsRecent ProgressPatient-Stated?Author return home Milagros Escobedo RN Note: Evaluation of progress towards goal: patient plans to return home with family support documented as of this encounter Procedures Procedure NamePriorityDate/TimeAssociated DiagnosisCommentsPR AN ELECTIVE ENDOTRACHEAL HJTFBNPpoqeps56/11/2025 1:44 PM EST documented in this encounter Results * AL AN ELECTIVE ENDOTRACHEAL AIRWAY (08/07/2025 1:44 PM EST) Evelin Delgadillo SRNA - 08/07/2025 1:44 PM EST EDIN Inman 08/07/2025 2:13 PM Airway Patient location during procedure: OR Urgency: Elective Date/Time: 08/07/2025 1:44 PM Airway not difficult IV In Situ: Peripheral General Information and Staff Service Provider: Mahendra Rico MD CUSTOMER SUCCESS REPRESENTATIVE: Karime Mann APRN-CUSTOMER SUCCESS REPRESENTATIVE Student: EDIN Inman Placed by: ??EDIN Inman Patient Identified, IV Checked, Risks and Benefits Discussed, Surgical Consent, Monitors and Equipment Checked, Pre-op Evaluation and Timeout Performed Fire Risk Assessment Score: 0 Consent for Emergent Airway (if performed for an anesthetic, see related documentation for consents) Risks and benefits: risks, benefits and alternatives were discussed Indications and Patient Condition Sedation level: Deep Preoxygenated: yesPatient position: Supine and Sniffing Mask difficulty assessment: Vent By Mask Indications for airway management: Anesthesia and Airway Protection Complications: No Complicating Factors: No Final Airway Details Final airway type: ETT Endotracheal airway: Cuffed and ETT - Single Lumen Techniques used for successful ETT Placement: With Stylet, Samuels and Video Laryngoscopy Cormack-Lehane Classification: Grade I Endotracheal tube insertion site: Oral Dentition Check Pre: See Pre-Evaluaton documentation Post Intubation Trauma? No Visibility: ??Cords Clear Blade: Nallely Blade size: #3 Placement verified by: chest auscultation, capnography and symmetrical chest wall movement ETT size: 7.0 mm Measured from: Lips Secured at (cm): 21 Number of attempts at approach: 1 Authorizing ProviderResult TypeResult StatusMahendra Rico MDANESTHESIA ORDERABLESFinal Result documented in this encounter Visit Diagnoses Not on filedocumented in this encounter Administered Medications Medication OrderMAR ActionAction DateDoseRateSite albumin human 5 % IVPB Premix intravenous, As needed, Starting on Wed08/07/25 at 1401, Anesthesia Intra-op Given08/07/2025 3:35 PM EST12.5 jTljmt1408/07/2025 2:10 PM EST12.5 gGiven 08/07/2025 2:01 PM EST12.5 g calcium chloride 100 mg/mL (10 %) injection syringe intravenous, As needed, Starting on Wed08/07/25 at 1427, Anesthesia Intra-op Given08/07/2025 3:40 PM JAA953 zcUqfit7508/07/2025 2:27 PM STA183 mg ceFAZolin (ANCEF) IVPB 2000 mg/50 mL in iso-osmotic dextrose (40 mg/mL premix) 2,000 mg, intravenous, at 100 mL/hr, Administer over 30 Minutes, Once, On Wed08/07/25 at 1200, For1 dose, Pre-op, Initiate within 1 hour of incision Look-alike/sound-alike medication - verify indication for use., Indication: Surgical prophylaxis Indications:Endometrial cancer determined by uterine biopsy ([facility])Given 08/07/2025 1:45 PM EST2,000 mg dexAMETHasone (DECADRON) injection intravenous, As needed, Starting on Wed08/07/25 at 1345, Anesthesia Intra-op Given08/07/2025 1:45 PM EST4 mg fentaNYL (SUBLIMAZE) injection intravenous, As needed, Starting on Wed08/07/25 at 1340, Anesthesia Intra-op Given08/07/2025 3:31 PM EST50 xkcIgwht94/11/2025 2:32 PM EST25 mcgGiven 08/07/2025 2:22 PM EST25 mcg HYDROmorphone (PF) (DILAUDID) injection intravenous, As needed, Starting on Wed08/07/25 at 1439, Anesthesia Intra-op Given08/07/2025 2:52 PM EST0.2 jwQjlbj4208/07/2025 2:39 PM EST0.2 mg lactated ringers infusion intravenous, Continuous PRN, Starting on Wed08/07/25 at 1340, Anesthesia Intra-op New 08/07/2025 2:22 PM ESTNew Bag08/07/2025 1:40 PM EST lidocaine PF (XYLOCAINE) 10 mg/mL (1 %) injection 1 mg 1 mg (0.1 mL), intradermal, As needed, times 1 per IV attempt for IV start pain control, Starting on Wed08/07/25 at 1238, Pre-op Given08/07/2025 1:40 PM EST50 mL midazolam (VERSED) injection intravenous, As needed, Starting on Wed08/07/25 at 1335, Anesthesia Intra-op Given08/07/2025 1:35 PM EST2 mg ondansetron (PF) (ZOFRAN) injection intravenous, As needed, Starting on Wed08/07/25 at 1557, Anesthesia Intra-op Given08/07/2025 3:57 PM EST4 mg phenylephrine (COTLEN-SYNEPHRINE) injection intravenous, As needed, Starting on Wed08/07/25 at 1359, Anesthesia Intra-op Given08/07/2025 1:59 PM AIZ121 nlrGtazq58/11/2025 1:46 PM KFP583 mcg potassium chloride IVPB 10 mEq/100 mL in water (0.1 mEq/mL premix) intravenous, Administer over 60 Minutes, As needed, Starting on Wed08/07/25 at 1408, Anesthesia Intra-op Given08/07/2025 2:56 PM EST10 iAbDucfh27/11/2025 2:08 PM EST10 mEq propofoL (DIPRIVAN) infusion intravenous, As needed, Starting on Wed08/07/25 at 1340, Anesthesia Intra-op Given08/07/2025 1:40 PM DIC894 mg rocuronium (ZEMURON) injection intravenous, As needed, Starting on Wed08/07/25 at 1340, Anesthesia Intra-op Given08/07/2025 3:25 PM EST10 qbNaqzg6608/07/2025 2:26 PM EST10 wuPqbja0108/07/2025 1:40 PM EST50 mg sugammadex (BRIDION) injection intravenous, As needed, Starting on Wed08/07/25 at 1618, Anesthesia Intra-op Given08/07/2025 4:18 PM WUQ955 mg Transfuse RBC:1 Unit Routine, On Wed08/07/25 at 1423, Transfusion Indications: Hgb less than 9 g/dL and symptomatic anemia, Ordering physician has personally discussed alternatives to this procedure: Yes, Has consent been obtained and has the consent form been signed? Yes, Lab Results Component Value Date HGB 8.3 (L) 08/07/2025 New Bag08/07/2025 2:23 PM ESTdocumented in this encounter Additional Health Concerns AssessmentNoted TimePHQ-9 Depression Total Score: 3:45 PM EST documented as of this encounter Care Teams Team MemberRelationshipSpecialtyStart DateEnd Date Bin Sidhu MD [address] [place] [address] PCP - GeneralFawaly Nrkivero15/9/25documented as of this encounter
--- OUTSIDE RECORDS SUMMARY | 2025-08-07 13:30 | XMS_ITS | Encounter Summary ---
Author Organization [facility] tem Address [id number] [address] [place] [address] Care Team Providers Care Lithostripper Name Role Phone Bin Sidhu MD Primary Care Provider [phone] Reason for Visit * Auth/Cert (Routine)SpecialtyDiagnoses / ProceduresReferred By ContactReferred To Contact Diagnoses Pelvic mass Vagina bleeding Vaginal bleeding pelvic mass/vaginal bleeding Rocio Alexander MD [address] [facility], [address] [place] [address] Phone: tel: fax: Referral IDStatusReasonStart DateExpiration DateVisits RequestedVisits [id number] Encounter Details DateTypeDepartmentCare Team (Latest Contact Info)Lbakqnbudvf56/11/2025 1:30 PM ESTAnesthesia Event [facility] [address] [place] [address]. [place] [phone] Mahendra Rico MD [address] [place] [address] Evelin Jackson SRNA Anesthesia Record Procedure NameResponsible AnesthesiologistAnesthesia Start TimeAnesthesia Stop TimeDAVINCI HYSTERECTOMY SALPINGO OOPHORECTOMY/RADICAL INTRAPERITONEAL TUMOR DEBULKING (Bilateral)Mahendra Rico MD08/07/25 97780510/07/24 1631DateTimeEvent Cclbzwm88/11/212970360270Fh Lztim0865Ki Start Bwkf8050Kr InductionThe patient was reevaluated immediately before moderate or deep sedation use and before anesthesia induction.1344An Wqtxmzelca9226Lccejszf6812Eznlmqf Ready for Surgeon 1423Quick NotePRBC per Dr DialloAfproq3668As Monmqljwwk9779gw stop incj8183 Transport/Transfer From the XA2383Kuuoxmw to RNTransported to:PACU, Spontaneous Ventilation, O2 per Simple face mask, 8 LPM Pt. Tolerated procedure well, vital signs stable and document on nursing record Care transferred to receiving OV7403 An Stop* NameTotalpropofol (DIPRIVAN) ouoxuiej260 mgrocuronium (ZEMURON) 50 mg/5 mL btiigbikl32 mgdexAMETHasone (DECADRON) injection 4 mg/mL4 mgfentaNYL (SUBLIMAZE) kuxlqsalk088 mcgondansetron PF (ZOFRAN) 2 mg/mL injection4 mg sugammadex (BRIDION) yghargfyl593 mgceFAZolin (ANCEF) IVPB 2000 mg/50 mL in iso-osmotic dextrose (40 mg/mL premix)2,000 mgphenylephrine (COLTEN-SYNEPHRINE) injection 10 mg/mL200 mcgalbumin 5% IVPB (premix)37.5 glidocaine PF (XYLOCAINE) 10 mg/mL (1 %) injection 1 mg50 mLpotassium chloride 10 mEq in 100 mL IVPB20 mEqcalcium chloride yikqbheve304 mgHYDROmorphone (PF) (DILAUDID) injection 1 mg/mL0.4 mgmidazolam (VERSED) injection 1 mg/mL2 mglactated ringers infusion2,001 mL * Agents Name Isoflurane Inspired Isoflurane * SqfoCubgeINGN666 mL CpqgAmnlptiQmhecbsrkTqnushqBwgze69/11/25; 1621; Incision; Abdomen; N/A; 5 PORT SITES [...] ; Removal Time: 1645; Removal Reason: Patient vqiqngarog32/09/25 2200 by Emily Qureshi RN08/09/25 1645 by Akiko Torres [facility] IVPlacement Date: 08/07/25; Placement Time: 1341; Catheter [...] Erin So RN08/07/25 1556 by Lillian Edwards [facility] IVPlacement Date: 08/07/25; Placement Time: 1600 (prior to pacu); Catheter Size: 18 G; Orientation: Right; Location: Hand; Removal Date: 08/09/25; Removal Time: 1418; Removal Reason: Patient discharged 08/07/25 1600 by Juan Carlos Kim RN08/09/25 1418 by Akiko Torres RN documented in this encounter Social History Tobacco UseTypesPacks/DayYears UsedDateSmoking Tobacco: NeverSmokeless Tobacco: NeverAlcohol UseStandard Drinks/WeekCommentsNever0 (1 standard drink = 0.6 oz pure alcohol)PHQ-2AnswerDate RecordedTotal Vvugi32910/04/2024UDIT-CAnswerDate RecordedQ1: How often do you have a [...] ValueDate RecordedSex Assigned at BirthNot on fileLegal TvoJtkicz34/08/2025 12:05 AM ESTGender IdentityNot on fileSexual OrientationNot on filedocumented as of this encounter Mental Status * QuestionAnswerEntry DateAuthorOverall Cognitive PlnmzfRVE95/12/2025 9:18 AM ESTFertig, Toya A, OT/L documented in this encounter OR Notes * Anesthesia Postprocedure Evaluation - Mahendra Rico MD - 08/07/2025 4:30 PM EST ANESTHESIA POST-EVALUATION [facility] Procedure Summary Date: 08/07/25 Room / Location: [facility] OR 09 / [facility] Anesthesia Start: [...] and Staff Service Provider: Mahendra Rico MD OPTION TRADER: Karime Mann APRN-OPTION TRADER Student: EDIN Inman Placed by: EDIN Inman [...] note were not included. 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 Allergies Allergen Reactions Latex Hives [...] Plan of Treatment DateTypeDepartmentCare Team (Latest Contact Info)Ayexclywojz41/24/2025 11:30 AM ESTHospital Encounter [facility] [address] [place] [phone] Justin Mackey MD [address] [place] [phone] 08/20/2025 11:30 AM EST - 08/20/2025 12:30 PM ESTSurgery [facility] Surgery [address] [place] [phone] Justin Mackey MD [address] [place] [address] INSERTION PORT A CATH [97310 (CPT??)]08/21/2025 8:00 AM ESTInfusion [facility]ola [facility] [address] [place] [phone] 08/21/2025 11:00 AM ESTOffice Visit [facility] [address] [place] [phone] Melinda Coffey PA [address] [facility] [address] [place] [address] 09/10/2025 11:00 AM ESTInfusion [facility] [address] [place] [phone] 09/10/2025 1:30 PM ESTOffice Visit [facility], A Department of [address] [place] [phone] Annita Patton, INSURANCE AUDITOR-AUTOMOTIVE PROFESSIONAL [address] [facility] [place] [address] 09/11/2025 8:00 AM ESTInfusion Paola Ellington [facility] [address] [place] [phone] NamePriorityAssociated DiagnosesDate/TimeINSERTION PORT A CATH needed for chemotherapy 08/20/2025 11:30 AM ESTdocumented as of this encounter Goals GoalPatient Goal TypeAssociated ProblemsRecent ProgressPatient-Stated?Author return home Milagros Escobedo RN Note: Evaluation of progress towards goal: patient plans to return home with family support documented as of this encounter Procedures Procedure NamePriorityDate/TimeAssociated DiagnosisCommentsPR AN ELECTIVE ENDOTRACHEAL UOOLKNQrfayao44/11/2025 1:44 PM EST documented in this encounter Results * LA AN ELECTIVE ENDOTRACHEAL AIRWAY (08/07/2025 1:44 PM EST) Narrative Jackson EDIN Waters - 08/07/2025 1:44 PM EST EDIN Inman 08/07/2025 2:13 PM Airway Patient location during procedure: OR Urgency: Elective Date/Time: 08/07/2025 1:44 PM Airway not difficult IV In Situ: Peripheral General Information and Staff Service Provider: Mahendra Rico MD OPTION TRADER: Karime Mann APRN-OPTION TRADER Student: EDIN Inman Placed by: ??EDIN Inman [...] 1401, Anesthesia Intra-op Given08/07/2025 3:35 PM EST12.5 mZdluu7108/07/2025 2:10 PM EST12.5 gGiven 08/07/2025 2:01 PM EST12.5 g calcium chloride 100 mg/mL (10 %) injection syringe intravenous, As needed, Starting on Wed08/07/25 at 1427, Anesthesia Intra-op Given08/07/2025 3:40 PM CRS613 psXeftn4508/07/2025 2:27 PM SBD119 mg ceFAZolin (ANCEF) IVPB 2000 mg/50 mL in iso-osmotic dextrose (40 mg/mL premix) 2,000 mg, intravenous, at 100 mL/hr, Administer over 30 Minutes, Once, On Wed08/07/25 at 1200, For1 dose, Pre-op, Initiate within 1 hour of incision Look-alike/sound-alike medication - verify indication for use., Indication: Surgical prophylaxis Indications:Endometrial cancer determined by uterine biopsy ([facility])Given 08/07/2025 1:45 PM EST2,000 mg dexAMETHasone (DECADRON) injection intravenous, As needed, Starting on Wed08/07/25 at 1345, Anesthesia Intra-op Given08/07/2025 1:45 PM EST4 mg fentaNYL (SUBLIMAZE) injection intravenous, As needed, Starting on Wed08/07/25 at 1340, Anesthesia Intra-op Given08/07/2025 3:31 PM EST50 icwXpsdj10/11/2025 2:32 PM EST25 mcgGiven 08/07/2025 2:22 PM EST25 mcg HYDROmorphone (PF) (DILAUDID) injection intravenous, As needed, Starting on Wed08/07/25 at 1439, Anesthesia Intra-op Given08/07/2025 2:52 PM EST0.2 svOixpz8408/07/2025 2:39 PM EST0.2 mg lactated ringers infusion intravenous, Continuous PRN, Starting on Wed08/07/25 at 1340, Anesthesia Intra-op New Bag08/07/2025 2:22 PM ESTNew Bag08/07/2025 1:40 PM EST [...] Intra-op Given08/07/2025 3:57 PM EST4 mg phenylephrine (COLTEN-SYNEPHRINE) injection intravenous, As needed, Starting on Wed08/07/25 at 1359, Anesthesia Intra-op Given08/07/2025 1:59 PM VEA681 zfjMztzz67/11/2025 1:46 PM HCA270 mcg potassium chloride IVPB 10 mEq/100 mL in water (0.1 mEq/mL premix) intravenous, Administer over 60 Minutes, As needed, Starting on Wed08/07/25 at 1408, Anesthesia Intra-op Given08/07/2025 2:56 PM EST10 zYxKgzsk31/11/2025 2:08 PM EST10 mEq propofoL (DIPRIVAN) infusion intravenous, As needed, Starting on Wed08/07/25 at 1340, Anesthesia Intra-op Given08/07/2025 1:40 PM PCA885 mg rocuronium (ZEMURON) injection intravenous, As needed, Starting on Wed08/07/25 at 1340, Anesthesia Intra-op Given08/07/2025 3:25 PM EST10 vjAbhdo8308/07/2025 2:26 PM EST10 guNwvje0308/07/2025 1:40 PM EST50 mg sugammadex (BRIDION) injection intravenous, As needed, Starting on Wed08/07/25 at 1618, Anesthesia Intra-op Given08/07/2025 4:18 PM JVT280 mg Transfuse RBC:1 Unit Routine, On Wed08/07/25 [...] Team MemberRelationshipSpecialtyStart DateEnd Date Bin Sidhu MD [address] [place] [address] PCP - GeneralFamily Tksfjgtz37/9/25documented as of this encounter
[2025-08-16] VITALS (20 sets, daily range): BP systolic 103–120; BP diastolic 65–70; PULSE 82–94; TEMP 36.8; O2SAT 95–97; BMI 28.3
--- OUTSIDE RECORDS SUMMARY | 2025-08-16 15:00 | XMS_ITS | Encounter Summary ---
Author Organization [facility] tem Address [id number] [address] [place] [address] Care Team Providers Care Respiratory Therapist Name Role Phone Bin Sidhu MD Primary Care Provider [phone] Encounter Details DateTypeDepartmentCare Team (Latest Contact Info)Lpefpdygjcg41/20/2025 3:00 PM ESTProcedure visit [facility] [address] [place] [address] Preop examination (Primary Dx); Anemia, unspecified type Social History Tobacco UseTypesPacks/DayYears UsedDateSmoking Tobacco: NeverSmokeless Tobacco: NeverAlcohol UseStandard Drinks/WeekCommentsNever0 (1 standard drink = 0.6 oz pure alcohol)PHQ-2AnswerDate RecordedTotal Hptyg80210/04/2024UDIT-CAnswerDate RecordedQ1: How often do you have a [...] ValueDate RecordedSex Assigned at BirthNot on fileLegal GvaGagqhf77/08/2025 12:05 AM ESTGender IdentityNot on fileSexual OrientationNot on filedocumented as of this encounter Last Filed Vital Signs Vital SignReadingTime TakenCommentsBlood Pressure--Pulse--Temperature-- Respiratory Rate--Oxygen Saturation--Inhaled Oxygen Concentration--Swgzty52.3 kg (155 lb)08/16/2025 3:27 PM XRZQttriw189.5 cm (5' 2 )08/16/2025 3:27 PM ESTBody Mass Index28.35110/16/2024 3:27 PM ESTdocumented in this encounter Patient Instructions * Patient Instructions* Juliana Cheema RN - 08/16/2025 3:00 PM EST Preoperative Education Checklist- General Surgery date: 08/20/25 Surgery time: 1130 a.m. Arrival time: 0930 a.m. 1. Bring a photo ID and your insurance card with you the day of surgery. You will check in at the main lobby of the [facility]- registration desk is straight ahead as soon as you walk in. Tell them you are here for surgery. 2. If you have a Living Will/Durable Power of Dance Master for Health Care that is not on file here, please bring a copy the day of surgery. 3. Please shower/bathe the night before surgery with the provided soap or wipes. Do not shower the morning of surgery- you will do use wipes when you arrive here at the hospital before getting into your surgical gown. Do not shave the area of your procedure for 2 days prior to your surgery. 4. NO powder, lotion, perfume/cologne, aftershave, make-up, deodorant, or hair products after you have bathed. 5. NO nail anguillan/acrylic on at least one finger. If you are having a hand, wrist or foot surgery then all nail anguillan and artificial/acrylic nails must be removed from that hand or foot. 6. Avoid ALL Aspirin and non-steroidal anti-inflammatory drugs and certain vitamins (Ibuprofen, Advil, Aleve, Excedrin, Meloxicam, Celebrex, fish/krill oil, etc.) for 7 days prior to surgery as instructed by your surgeon and/or your prescribing doctor. Tylenol IS ALLOWED. If you are on Ticlid, Xarelto, Eliquis, Pradaxa, Plavix or Coumadin, please check with your prescribing doctor for instructions for when to stop them. 7. If you use an inhaler, continue to use it routinely. 8. Nothing to eat or drink (not even water, gum, mints, or hard candy!) AFTER midnight prior to your surgery. 9. Take only medications that you are instructed to on the morning of surgery with a TINY SIP OF WATER. 10. Choose a responsible adult that will be able to drive you home when you are discharged from your hospital stay for your surgery and can stay with you in your home for 24 hours after your procedure. You must NOT drive any vehicle or operate any machinery for 24 hours after surgery. 11. When you dress for your appointment, please wear loose fitting clothing that is appropriate to accommodate your surgical area procedure. BRING WITH YOU ANY DEVICES YOU MAY NEED: BHUPINDER hose, ice machine, sling/swath, brace or special shoe, oversized zip-up or button up shirt, CPAP machine if staying overnight. 12. Do NOT wear jewelry, watches, or any piercings or metal for surgery- leave these valuables and money at home. 13. Do NOT wear contact lenses for surgery- glasses are okay if needed. 14. The anesthesiologist will talk with you the day of surgery and will ask you to sign a Consent Form. 15. Refrain from smoking or any type of tobacco use for at least 8 hours and marijuana for 24 hoursprior to arrival for your surgery. 16. Notify your surgeon if you develop any illness before your surgery. 17. If you are staying overnight, please DO NOT BRING your home medications with you. 18. If you have any questions prior to surgery, please call the Preadmission Testing office at [phone], Mon.-Fri. 7 a.m.-3 p.m. Leave a voicemail if needed. Pre-Surgery Instructions: Medication Instructions acetaminophen (TYLENOL EXTRA STRENGTH) 500 mg tablet Stop taking 0 days prior to procedure acetaZOLAMIDE (DIAMOX) 250 mg tablet Stop taking 0 days prior to procedure dexAMETHasone (DECADRON) 4 mg tablet Stop taking 0 days prior to procedure dorzolamide (TRUSOPT) 2 % ophthalmic solution Stop taking 0 days prior to procedure famotidine (PEPCID) 20 mg tablet Stop taking 0 days prior to procedure lidocaine-prilocaine (EMLA) cream Stop taking 0 days prior to procedure netarsudiL-latanoprost 0.02-0.005 % drops Stop taking 0 days prior to procedure ondansetron (ZOFRAN) 8 mg tablet Stop taking 0 days prior to procedure ondansetron ODT (ZOFRAN ODT) 4 mg disintegrating tablet Stop taking 0 days prior to procedure oxyCODONE (ROXICODONE) 5 mg immediate release tablet Stop taking 0 days prior to procedure prochlorperazine (COMPAZINE) 10 mg tablet Stop taking 0 days prior to procedure senna (SENOKOT) 8.6 mg tablet Stop taking 0 days prior to procedure timolol (TIMOPTIC) 0.5 % ophthalmic solution Stop taking 0 days prior to procedure How to Avoid an Infection after Your Surgery Your doctor will give you specific instructions, but remember: -ALWAYS wash hands before caring for your incision. -No picking, scratching, or rubbing your incision. -No creams, lotion, powder, rubbing alcohol or hydrogen peroxide on the incision (can harm the tissue and slow healing). -Your doctor will give you specific instructions for what type of dressing you will need and how often it will need changed for infection purposes. -No tight clothing on incision. -Do not allow anyone to touch your incision unless they are cleaning, checking, or redressing it (be sure they wash their hands first). -No contact of your incision with pets; avoid sleeping with pets. -Take full course of antibiotic if prescribed for you after surgery- do not stop unless directed lissette your physician. You may also be given an antibiotic prior to your surgery to help prevent surgical site infections. -Eat a healthy and varied diet including proteins, fruits, and vegetables to help promote wound healing and keep blood sugars under control if you are diabetic. -Smoking slows the healing process by decreasing the amount of oxygen in your blood that is needed for tissue healing. Try to avoid or stop smoking if possible. LOOK at your incision each morning and each night to check the progress of healing. Some soreness, numbness, itching and/or mild bruising around the incision is normal. Call your doctor if you noticeany of the following: -Increased redness or hardening around the incision area. -Increased pain at the incision site. -Incision feels hot to the touch. -Swelling or pulling apart of the incision edges. -Yellow or green drainage or foul odor coming from the incision. -Bleeding from the incision (apply pressure as needed). -Fever higher than 101 degrees Fahrenheit for more than 4 hours. SHOWERING: Your doctor will give you specific instructions, but remember: -Be careful getting into and out of the shower. -Showers should be quick (5 minutes or less). -Use a clean washcloth to gently wash your incision with soap and water and pat the area dry with aclean towel. -No re-using wash cloths or towels; get a fresh one to clean your incision. -Do not soak in the bathtub, go swimming or use a hot tub (Jacuzzi), or perform activities where your incision is submerged in water or exposed to any fluids or substances until instructed by your doctor. -If your have the sticky strips (steri-strips) over the incision, it is OK to shower with them. Do not remove them. Let them fall off on their own. If you have a question, call your doctor???s office. Go to the follow-up appointment with your doctor. documented in this encounter Miscellaneous Notes * Perioperative Nursing Note - Juliana Cheema RN - 08/16/2025 3:00 PM EST Preoperative Education Checklist- General Surgery date: 08/20/25 Surgery time: 1130 a.m. Arrival time: 0930 a.m. 1. Bring a photo ID and your insurance card with you the day of surgery. You will check in at the main lobby of the [facility]- registration desk is straight ahead as soon as you walk in. Tell them you are here for surgery. 2. If you have a Living Will/Durable Power of Dance Master for Health Care that is not on file here, please bring a copy the day of surgery. 3. Please shower/bathe the night before surgery with the provided soap or wipes. Do not shower the morning of surgery- you will do use wipes when you arrive here at the hospital before getting into your surgical gown. Do not shave the area of your procedure for 2 days prior to your surgery. 4. NO powder, lotion, perfume/cologne, aftershave, make-up, deodorant, or hair products after you have bathed. 5. NO nail anguillan/acrylic on at least one finger. If you are having a hand, wrist or foot surgery then all nail anguillan and artificial/acrylic nails must be removed from that hand or foot. 6. Avoid ALL Aspirin and non-steroidal anti-inflammatory drugs and certain vitamins (Ibuprofen, Advil, Aleve, Excedrin, Meloxicam, Celebrex, fish/krill oil, etc.) for 7 days prior to surgery as instructed by your surgeon and/or your prescribing doctor. Tylenol IS ALLOWED. If you are on Ticlid, Xarelto, Eliquis, Pradaxa, Plavix or Coumadin, please check with your prescribing doctor for instructions for when to stop them. 7. If you use an inhaler, continue to use it routinely. 8. Nothing to eat or drink (not even water, gum, mints, or hard candy!) AFTER midnight prior to your surgery. 9. Take only medications that you are instructed to on the morning of surgery with a TINY SIP OF WATER. 10. Choose a responsible adult that will be able to drive you home when you are discharged from your hospital stay for your surgery and can stay with you in your home for 24 hours after your procedure. You must NOT drive any vehicle or operate any machinery for 24 hours after surgery. 11. When you dress for your appointment, please wear loose fitting clothing that is appropriate to accommodate your surgical area procedure. BRING WITH YOU ANY DEVICES YOU MAY NEED: BHUPINDER hose, ice machine, sling/swath, brace or special shoe, oversized zip-up or button up shirt, CPAP machine if staying overnight. 12. Do NOT wear jewelry, watches, or any piercings or metal for surgery- leave these valuables and money at home. 13. Do NOT wear contact lenses for surgery- glasses are okay if needed. 14. The anesthesiologist will talk with you the day of surgery and will ask you to sign a Consent Form. 15. Refrain from smoking or any type of tobacco use for at least 8 hours and marijuana for 24 hoursprior to arrival for your surgery. 16. Notify your surgeon if you develop any illness before your surgery. 17. If you are staying overnight, please DO NOT BRING your home medications with you. 18. If you have any questions prior to surgery, please call the Preadmission Testing office at [phone], Mon.-Fri. 7 a.m.-3 p.m. Leave a voicemail if needed. Pre-Surgery Instructions: Medication Instructions acetaminophen (TYLENOL EXTRA STRENGTH) 500 mg tablet Stop taking 0 days prior to procedure acetaZOLAMIDE (DIAMOX) 250 mg tablet Stop taking 0 days prior to procedure dexAMETHasone (DECADRON) 4 mg tablet Stop taking 0 days prior to procedure dorzolamide (TRUSOPT) 2 % ophthalmic solution Stop taking 0 days prior to procedure famotidine (PEPCID) 20 mg tablet Stop taking 0 days prior to procedure lidocaine-prilocaine (EMLA) cream Stop taking 0 days prior to procedure netarsudiL-latanoprost 0.02-0.005 % drops Stop taking 0 days prior to procedure ondansetron (ZOFRAN) 8 mg tablet Stop taking 0 days prior to procedure ondansetron ODT (ZOFRAN ODT) 4 mg disintegrating tablet Stop taking 0 days prior to procedure oxyCODONE (ROXICODONE) 5 mg immediate release tablet Stop taking 0 days prior to procedure prochlorperazine (COMPAZINE) 10 mg tablet Stop taking 0 days prior to procedure senna (SENOKOT) 8.6 mg tablet Stop taking 0 days prior to procedure timolol (TIMOPTIC) 0.5 % ophthalmic solution Stop taking 0 days prior to procedure How to Avoid an Infection after Your Surgery Your doctor will give you specific instructions, but remember: -ALWAYS wash hands before caring for your incision. -No picking, scratching, or rubbing your incision. -No creams, lotion, powder, rubbing alcohol or hydrogen peroxide on the incision (can harm the tissue and slow healing). -Your doctor will give you specific instructions for what type of dressing you will need and how often it will need changed for infection purposes. -No tight clothing on incision. -Do not allow anyone to touch your incision unless they are cleaning, checking, or redressing it (be sure they wash their hands first). -No contact of your incision with pets; avoid sleeping with pets. -Take full course of antibiotic if prescribed for you after surgery- do not stop unless directed lissette your physician. You may also be given an antibiotic prior to your surgery to help prevent surgical site infections. -Eat a healthy and varied diet including proteins, fruits, and vegetables to help promote wound healing and keep blood sugars under control if you are diabetic. -Smoking slows the healing process by decreasing the amount of oxygen in your blood that is needed for tissue healing. Try to avoid or stop smoking if possible. LOOK at your incision each morning and each night to check the progress of healing. Some soreness, numbness, itching and/or mild bruising around the incision is normal. Call your doctor if you noticeany of the following: -Increased redness or hardening around the incision area. -Increased pain at the incision site. -Incision feels hot to the touch. -Swelling or pulling apart of the incision edges. -Yellow or green drainage or foul odor coming from the incision. -Bleeding from the incision (apply pressure as needed). -Fever higher than 101 degrees Fahrenheit for more than 4 hours. SHOWERING: Your doctor will give you specific instructions, but remember: -Be careful getting into and out of the shower. -Showers should be quick (5 minutes or less). -Use a clean washcloth to gently wash your incision with soap and water and pat the area dry with aclean towel. -No re-using wash cloths or towels; get a fresh one to clean your incision. -Do not soak in the bathtub, go swimming or use a hot tub (Jacuzzi), or perform activities where your incision is submerged in water or exposed to any fluids or substances until instructed by your doctor. -If your have the sticky strips (steri-strips) over the incision, it is OK to shower with them. Do not remove them. Let them fall off on their own. If you have a question, call your doctor???s office. Go to the follow-up appointment with your doctor. * Perioperative Nursing Note - Juliana Cheema RN - 08/16/2025 3:00 PM EST Surgical instructions reviewed with patient, her , and her brother. All verbalized understanding. Patient just had a hysterectomy last week. She reports nausea, vomiting, and diarrhea since then and is unable to keep very little fluids down. EPIC message sent to her doctors Ermias and Catherine. Labs being drawn at this time. Patient is very pale, weak, and exhausted. documented in this encounter Plan of Treatment DateTypeDepartmentCare Team (Latest Contact Info)Xpwdwjxqzjf41/24/2025Hospital Encounter [facility] - Surgery [address] [place] [phone] Justin Mackey MD [address] [place] [phone] 08/21/2025 8:00 AM ESTInfusion Paola Wilson [facility] [address] [place] [phone] 08/21/2025 11:00 AM ESTOffice Visit Paola Ellington [facility] [address] [place] [phone] Melinda Coffey PA [address] [place] [address] 09/10/2025 11:00 AM ESTInfusion Paola Dain [facility] [address] [place] [phone] 09/10/2025 1:30 PM ESTOffice Visit [facility], A Department of [address] [place] [phone] Annita Patton, COOPERATIVE MANAGER-DIRECTOR AIRPORT [address] [facility] [place] [address] 09/11/2025 8:00 AM ESTInfusion Paola L Chandana [facility]cology [address] [place] [phone] NamePriorityAssociated DiagnosesDate/TimeINSERTION PORT A CATH needed for chemotherapy documented as of this encounter Goals GoalPatient Goal TypeAssociated ProblemsRecent ProgressPatient-Stated?Author return home Milagros Escobedo, RN Note: Evaluation of progress towards goal: patient plans to return home with family support Autogenerated Goal Care PlanAutogenerated ProblemNoPotts, Elizabethdocumented as of this encounter Results * (ABNORMAL) Basic Metabolic Panel (08/16/2025 3:52 PM EST)ComponentValueRef RangeTest MethodAnalysis TimePerformed AtPathologist [id number] - 146 mmol/L110/16/2024 4:17 PM ESTPROMEDICA REDWOOD MEMORIAL HOSPITALPOTASSIUM 2.6(LL)3.5 - 5.0 mmol/L110/16/2024 4:17 PM ESTPROMEDIMERCY MEDICAL CENTER MERCED COMMUNITY CAMPUSCHLORIDE10398 - 109 mmol/L110/16/2024 4:17 PM ESTPROMEDIMERCY MEDICAL CENTER MERCED COMMUNITY CAMPUSCARBON ALMJQDX5648 - 32 mmol/L110/16/2024 4:17 PM ESTKEENAN PRIVATE HOSPITALANION DQA199 - 15 mmol/L110/16/2024 4:17 PM EST [facility]ITALBLOOD UREA XNBULANT352 - 27 mg/dL08/16/2025 4:17 PM ESTKEENAN PRIVATE HOSPITALCREATININE0.700.40 - 1.00 mg/dL 08/16/2025 4:[address] [facility]Comment:METHOD TRACEABLE TO IDMS OLJTKHAUCXABNHZ611(H)65 - 99 mg/dL08/16/2025 4:17 PM EST [facility]ITALCALCIUM8.58.5 - 10.5 mg/dL08/16/2025 4:17 PM ESTKEENAN PRIVATE HOSPITALEGFR Non-Race Dependent>90>=60 ml/min/1.73sq.m110/16/2024 4:[address] [facility] Comment: Reported eGFR is based on the CKD-EPI 2020 equation that does not use a race coefficient. Specimen (Source)Anatomical Location / LateralityCollection Method / Volume Collection TimeReceived TimeBloodVenous blood / UnknownVenipuncture / Unknown 08/16/2025 3:52 PM EST08/16/2025 3:52 PM EST Narrative Authorizing ProviderResult TypeResult StatusDaviquiana Angulo MDLAB BLOOD ORDERABLESFinal ResultPerforming OrganizationAddressCity/State/ZIP CodePhone Number [facility] [address] [place] [address], * (ABNORMAL) CBC auto differential (08/16/2025 3:52 PM EST)ComponentValueRef RangeTest MethodAnalysis TimePerformed AtPathologist CushmaozsPBE80.6(H)4 - 11 10^9/08/16/2025 4:45 PM ESTKEENAN PRIVATE HOSPITALRBC Count4.06 3.8 - 5.2 10^12/L110/16/2024 4:[address] [facility] Nlxpkzpxfe03.4(L)11.7 - 15.5 g/dL08/16/2025 4:[address] [facility] CENTERHematocrit34.4(L)35 - 47 %08/16/2025 4:[address] [facility]ENTERMCV8580 - 100 fL08/16/2025 4:[address] [facility]ENTERMCH28.027 - 34 pg08/16/2025 4:[address] [facility]ENTERMCHC33.032 - 36 g/dL08/16/2025 4:[address] [facility] CENTERRDW16.6(H)11.5 - 15 %08/16/2025 4:[address] [facility] CENTERPlatelet Imxen481(H)150 - 450 10^9/L110/16/2024 4:[address] [facility] CENTERMPV8.07 - 12 fL08/16/2025 4:45 PM EST [facility]ITALBands %8%08/16/2025 4:[address] [facility]ENTERComment:This is an appended report. These results have been appended to a previously preliminary verified report.Neutrophils %81 %08/16/2025 4:[address] [facility]ENTERComment:This is an appended report. These results have been appended to a previously preliminary verified report.Lymphocytes %4%08/16/2025 4:[address] [facility]ENTERComment:This is an appended report. These results have been appended to a previously preliminary verified report.Monocytes %7%08/16/2025 4:[address] [facility]ENTERComment:This is an appended report. These results have been appended to a previously preliminary verified report.Neutrophils Absolute (M)27.3(H)1.5 - 6.6 10^9/L110/16/2024 4:45 PM [facility]Comment:This is an appended report. These results have been appended to a previously preliminary verified report. Lymphocytes Absolute1.21.0 - 3.5 10^9/L110/16/2024 4:[address] [facility]ENTERComment:This is an appended report. These results have been appended to a previously preliminary verified report.Monocytes Absolute2.1(H) 0.0 - 0.9 10^9/L110/16/2024 4:45 PM ESTKEENAN PRIVATE [facility]OSPITAL Comment:This is an appended report. These results have been appended to a previously preliminary verified report.Polychromasia1+08/16/2025 4:45 PM EST [facility]Comment:This is an appended report. These results have been appended to a previously preliminary verified report. Elliptocytes1+08/16/2025 4:45 PM ESTKEENAN [facility]IVATE [facility]OSPITAL Comment:This is an appended report. These results have been appended to a previously preliminary verified report.Stomatocytes1+08/16/2025 4:45 PM EST [facility]Comment:This is an appended report. These results have been appended to a previously preliminary verified report. Differential TypeMANUAL XACFGUJJITYA34/20/2025 4:45 PM ESTKEENAN PRIVATE HOSPITALComment:This is an appended report. These results have been appended to a previously preliminary verified report.Specimen (Source) Anatomical Location / LateralityCollection Method / VolumeCollection Time Received TimeBloodVenous blood / UnknownVenipuncture / Cqoblev3408/16/2025 3:52 PM EST08/16/2025 3:52 PM EST Narrative Authorizing ProviderResult TypeResult StatusDaviquiana Angulo MDLAB BLOOD ORDERABLESFinal ResultPerforming OrganizationAddressCity/State/ZIP CodePhone Number [facility] [address] documented in this encounter Visit Diagnoses Diagnosis Preop examination- Primary Unspecified pre-operative examination Anemia, unspecified type documented in this encounter Additional Health Concerns Active ProblemsNoted DateDiagnosed DateAutogenerated Xnsxqfk01/14/2025Assessment Noted TimePHQ-9 Depression Total Score: 3:45 PM ESTdocumented as of this encounter Care Teams Team MemberRelationshipSpecialtyStart DateEnd Date Bin Sidhu MD [address] [id number] PCP - GeneralFamily Arzjzepp50/9/25documented as of this encounter
--- OUTSIDE RECORDS SUMMARY | 2025-08-16 15:00 | XMS_ITS | Encounter Summary ---
Author Organization [facility] tem Address [id number] [address] [place] [address] Care Team Providers Care Manufacturing Planner Name Role Phone Bin Sidhu MD Primary Care Provider [phone] Encounter Details DateTypeDepartmentCare Team (Latest Contact Info)Dtdhuwryato93/20/2025 3:00 PM ESTProcedure visit [facility] - [facility]mit [address] [place] [address] Preop examination (Primary Dx); Anemia, unspecified type Social History Tobacco UseTypesPacks/DayYears UsedDateSmoking Tobacco: NeverSmokeless Tobacco: NeverAlcohol UseStandard Drinks/WeekCommentsNever0 (1 standard drink = 0.6 oz pure alcohol)PHQ-2AnswerDate RecordedTotal Pmxjp88410/04/2024UDIT-CAnswerDate RecordedQ1: How often do you have a [...] ValueDate RecordedSex Assigned at BirthNot on fileLegal KilWrverp07/08/2025 12:05 AM ESTGender IdentityNot on fileSexual OrientationNot on filedocumented as of this encounter Last Filed Vital Signs Vital SignReadingTime TakenCommentsBlood Pressure--Pulse--Temperature-- Respiratory Rate--Oxygen Saturation--Inhaled Oxygen Concentration--Kthqwc25.3 kg (155 lb)08/16/2025 3:27 PM IJANjzbqd102.5 cm (5' 2 )08/16/2025 3:27 PM ESTBody [...] in at the main lobby of the [facility]- registration desk is straight ahead as soon as you walk in. Tell them you are here for surgery. 2. If you have a Living Will/Durable Power of Policy Services Representative for Health Care that is not on [...] after you have bathed. 5. NO nail slovak/acrylic on at least one finger. If you are having a hand, wrist or foot surgery then all nail slovak and artificial/acrylic nails must be removed from [...] please call the Preadmission Testing office at [phone], Mon.-Fri. 7 a.m.-3 p.m. Leave a voicemail [...] in at the main lobby of the [facility]- registration desk is straight ahead as soon as you walk in. Tell them you are here for surgery. 2. If you have a Living Will/Durable Power of Policy Services Representative for Health Care that is not on [...] after you have bathed. 5. NO nail slovak/acrylic on at least one finger. If you are having a hand, wrist or foot surgery then all nail slovak and artificial/acrylic nails must be removed from [...] please call the Preadmission Testing office at [phone], Mon.-Fri. 7 a.m.-3 p.m. Leave a voicemail [...] Plan of Treatment DateTypeDepartmentCare Team (Latest Contact Info)Wegpdwuaoor79/24/2025 11:30 AM ESTHospital Encounter [facility] [address] [place] [phone] Justin Mcakey MD [address] [place] [phone] 08/20/2025 11:30 AM EST - 08/20/2025 12:30 PM ESTSurgery [facility] [address] [place] [phone] Justin Mackey MD [address] [place] [phone] INSERTION PORT A CATH [[id number] (CPT??)]08/21/2025 8:00 AM ESTInfusion Paola Ellington [facility] - Medical Oncology [address] [place] [phone] 08/21/2025 11:00 AM ESTOffice Visit Paola Ellington [facility] - Medical Oncology [address] [place] [address], [place] [phone] Melinda Coffey PA [address] [facility] [address] [place] [address] 09/10/2025 11:00 AM ESTInfusion Paola Ellington [facility] - Medical Oncology [address] [place] [phone] 09/10/2025 1:30 PM ESTOffice Visit [facility], A Department of [address] [place] [address] Annita Patton, CROWN PERFORATOR OPERATOR-RECRUITING CONSULTANT [address] [place] [address], [address] [place] [address] 09/11/2025 8:00 AM ESTInfusion Paola Ellington [facility] - Medical Oncology [address] [place] [phone] NamePriorityAssociated DiagnosesDate/TimeINSERTION PORT A CATH needed for [...] 3:52 PM EST)ComponentValueRef RangeTest MethodAnalysis TimePerformed AtPathologist RhorecvicURHIFE408808 - 146 mmol/L110/16/2024 4:17 PM [facility]STR[facility] INSTITUTEPOTASSIUM 2.6(LL)3.5 - 5.0 mmol/L110/16/2024 4:17 PM [facility] INSTITUTECHLORIDE10398 - 109 mmol/L110/16/2024 4:17 PM [facility] INSTITUTECARBON AEDGCVJ9688 - 32 mmol/L110/16/2024 4:17 PM ESTR[facility] INSTITUTEANION PUD379 - 15 mmol/L110/16/2024 4:17 PM EST [facility]STITUTEBLOOD UREA ECGFBEIG691 - 27 mg/dL08/16/2025 4:17 PM [facility]ATININE0.700.40 - 1.00 mg/dL 08/16/2025 4:17 PM [facility]Comment:METHOD TRACEABLE TO IDMS AVIZGFEPSQGBPXN848(H)65 - 99 mg/dL08/16/2025 4:17 PM EST [facility] INSTITUTECALCIUM8.58.5 - 10.5 mg/dL08/16/2025 4:17 PM [facility]PITALEGFR Non-Race Dependent>90>=60 ml/min/1.73sq.m110/16/2024 4:17 PM [facility] Comment: Reported eGFR is based on the CKD-EPI 2020 equation that does not use a race coefficient. Specimen (Source)Anatomical Location / LateralityCollection Method / Volume Collection TimeReceived TimeBloodVenous blood / UnknownVenipuncture / Unknown 08/16/2025 3:52 PM EST08/16/2025 3:52 PM EST Narrative Authorizing ProviderResult TypeResult StatusDaviquiana PASCUAL BLOOD ORDERABLESFinal ResultPerforming OrganizationAddressCity/State/ZIP CodePhone Number [facility] [address] [place] [address], * (ABNORMAL) CBC auto differential (08/16/2025 3:52 PM EST)ComponentValueRef RangeTest MethodAnalysis TimePerformed AtPathologist DlhrzygzsBAI81.6(H)4 - 11 10^9/L110/16/2024 4:45 PM [facility]ITALRBC Count4.06 3.8 - 5.2 10^12/L110/16/2024 4:45 PM [facility] Hobnknhpah75.4(L)11.7 - 15.5 g/dL08/16/2025 4:45 PM ESTRIVERV[facility] INSTITUTEHematocrit34.4(L)35 - 47 %08/16/2025 4:45 PM [facility]MCV8580 - 100 fL08/16/2025 4:45 PM [facility]MCH28.027 - 34 pg08/16/2025 4:45 PM [facility]MCHC33.032 - 36 g/dL08/16/2025 4:45 PM [facility]ITALRDW16.6(H)11.5 - 15 %08/16/2025 4:45 PM [facility]ITALPlatelet Twxwj934(H)150 - 450 10^9/L110/16/2024 4:45 PM [facility]ITALMPV8.07 - 12 fL08/16/2025 4:45 PM EST [facility] INSTITUTEBands %8%08/16/2025 4:45 PM [facility]Comment:This is an appended report. These results have been appended to a previously preliminary verified report.Neutrophils %81 %08/16/2025 4:45 PM [facility] INSTITUTEComment:This is an appended report. These results have been appended to a previously preliminary verified report.Lymphocytes %4%08/16/2025 4:45 PM [facility]Comment:This is an appended report. These results have been appended to a previously preliminary verified report.Monocytes %7%08/16/2025 4:45 PM [facility]Comment:This is an appended report. These results have been appended to a previously preliminary verified report.Neutrophils Absolute (M)27.3(H)1.5 - 6.6 10^9/L110/16/2024 4:45 PM EST [facility]Comment:This is an appended report. These results have been appended to a previously preliminary verified report. Lymphocytes Absolute1.21.0 - 3.5 10^9/10/16/2024 4:45 PM [facility]Comment:This is an appended report. These results have been appended to a previously preliminary verified report.Monocytes Absolute2.1(H) 0.0 - 0.9 10^9/10/16/2024 4:45 PM [facility] Comment:This is an appended report. These results have been appended to a previously preliminary verified report.Polychromasia1+08/16/2025 4:45 PM EST [facility]Comment:This is an appended report. These results have been appended to a previously preliminary verified report. Elliptocytes1+08/16/2025 4:45 PM [facility] Comment:This is an appended report. These results have been appended to a previously preliminary verified report.Stomatocytes1+08/16/2025 4:45 PM EST [facility]Comment:This is an appended report. These results have been appended to a previously preliminary verified report. Differential TypeMANUAL CHCSOADVELXU97/20/2025 4:45 PM [facility]Comment:This is an appended report. These results have been appended to a previously preliminary verified report.Specimen (Source) Anatomical Location / LateralityCollection Method / VolumeCollection Time Received TimeBloodVenous blood / UnknownVenipuncture / Uxayiod3408/16/2025 3:52 PM EST08/16/2025 3:52 PM EST Narrative Authorizing ProviderResult TypeResult StatusDaapollo Angulo MDLAB BLOOD ORDERABLESFinal ResultPerforming OrganizationAddressCity/State/ZIP CodePhone Number [facility] [address] [place] [address], documented in this encounter Visit Diagnoses Diagnosis Preop examination- Primary Unspecified pre-operative examination Anemia, unspecified type documented in this encounter Additional Health Concerns Active ProblemsNoted DateDiagnosed DateAutogenerated Nujacwq1208/10/2025ssessment Noted TimePHQ-9 Depression Total Score: 3:45 PM ESTdocumented as of this encounter Care Teams Team MemberRelationshipSpecialtyStart DateEnd Date Bin Sidhu MD [address] [place] [address] PCP - GeneralFamily Wmlhtzjx23/9/25documented as of this encounter
[2025-08-16 20:13] LABS: Hematocrit 32.3 % (36.0-48.0); Hemoglobin 10.5 g/dL (12.0-16.0); Mean Corpuscular HGB Conc 32.5 g/dL (29.9-35.2); Mean Corpuscular Hemoglobin 28.5 pg (26.7-34.0); Mean Corpuscular Volume 87.5 fL (81.0-99.0); Platelet Count 649 10^3/uL (150-450); Red Blood Count 3.69 10^6/uL (4.20-5.40)
[2025-08-16 20:15] LABS: White Blood Count 33.2 10^3/uL (4.0-11.0)
--- NOTE | 2025-08-16 20:15 | XR_ITS ---
The [address] [address] Patient Name: OTONIEL GONZALEZ MRN: [id number] date: 1955 Sex: F Assigned Patient Location: ED.MAIN Current Patient Location: ED.MAIN Accession/Order Number: [id number] Exam Date: 08/16/2025 20:20 Report Date: 08/16/2025 20:42 At the request of: LUNA GRIMALDO Procedure: XR chest 1V Plain film chest Single view HISTORY: Weakness. Hysterectomy last week. COMPARISON: None FINDINGS: SUPPORT DEVICES: None POSTSURGICAL CHANGES: None HEART: Within normal limits PULMONARY SANTIAGO: Within normal limits MEDIASTINUM: Unremarkable LUNGS AND PLEURA: No acute lung process, pleural effusion or pneumothorax identified. BONY STRUCTURES: Intact ADDITIONAL FINDINGS left chest wall subcutaneous air. May be related to recent surgery. Correlate with infection. XR/XR chest 1V IMPRESSION: No acute process. Left chest wall subcutaneous air. Correlate with recent surgery. May consider infectious etiology. Impression dictated by: Malik Story M.D. 08/16/2025 8:42 PM Dictation Location: [place] [address] Electronically authenticated by: [id number] Y Date: 08/16/2025 20:42
--- NOTE | 2025-08-16 20:21 | ED_ITS ---
Documented by User: RE Fregoso 08/17/25 21:08 HPI HPI - General Adult General Chief complaint: Weakness Stated complaint: LAB RECHECK Time Seen by Provider: 08/16/25 19:21 Source: patient, family and caregiver Mode of arrival: Carry History of Present Illness HPI narrative: Patient is a 70-year-old female that presents to the emergency department after she was called by her doctor and recommended to be evaluated after she got pretesting labs today. She has plans to get a port placed on Wednesday for her endometrial adenocarcinoma. She just had a hysterectomy at [facility] a week ago with Dr. Monson. Her gynecology oncologist is Dr. Alexander. Since then she has felt weak and reports diarrhea, at least 3 bowel movements per day since Wednesday, 4 days ago, when she stopped taking the oxycodone from surgery. She states she did have to get blood transfusions, 2 during surgery, and 1 after. She reports her hemoglobin was 8.9 postoperatively. Her doctor called and states that her white count was 30.6, potassium was 2.6, and that she had high platelets. Related Data Home Medications ?Medication ?Instructions ?Recorded ?Confirmed acetazolamide 250 mg tablet 250 mg PO Q12H 08/03/25 dorzolamide 2 % eye drops 1 drp ophthalmic (eye) TID 1 10/03/24 08/16/25 netarsudil 0.02 %-latanoprost 1 drp ophthalmic (eye) Q PM 08/03/25 08/16/25 0.005 % eye drops (Rocklatan) timolol 0.5 % eye drops 1 drp ophthalmic (eye) BID 1 10/03/24 08/16/25 potassium chloride 10 mEq 20 meq PO QID 08/17/2508/17 tablet,extended release Allergies Allergy/AdvReac Type Severity Reaction Status Date / Time latex Allergy Hives Verified 08/16/25 19:29 Opioid HPI Opioid Management Most Recent Opioid Data: Last Pain Scale 4 Today, 19:00 Last Pain Assessment Today, 19:00 Last MAR Pain Assessment Today, 16:42 Last ORT Total Score 0 Today, 00:06 Last ORT Risk Category Low Risk Today, 00:06 Review of Systems ROS Status of ROS 10 or more systems reviewed and unremark able except as noted in history and below [facility] Medical History (Updated 08/17/25 @ 21:07 by RE Fregoso) Glaucoma ?H40.9 - Unspecified glaucoma (ICD-10) Hypokalemia ?E87.6 - Hypokalemia (ICD-10) Lymph node cancer ?C77.9 - Secondary and unspecified malignant neoplasm of lymph node, unspecified (ICD-10) Hysterectomy planned Family History (Updated 08/17/25 @ 00:28 by Chantale Boyle RN) Father Family history of CHF (congestive heart failure) Family history of cancer Family history of diabetes mellitus Family history of myocardial infarction Family history of stroke Mother Family history of cancer Brother Family history of hypertension Social History (Updated 08/17/25 @ 00:29 by Chantale Boyle RN) Within the past year, how often did you have a drink containing alcohol: never Score interpretation: A score less than 3 is consistent with normal alcohol consumption. Smoking status: Never smoker Non-prescribed substance use: denies use Known occupational exposures/hazards: Yes Highest level of school completed/degree received: Bachelor's degree Are you now , , , , never or living with a partner: In a typical week, how many times do you talk on the telephone with family, friends, or neighbors: 3 or more times per week How often do you get together with friends or relatives: 3 or more times per week Little interest or pleasure in doing things: not at all Feeling down, depressed, or hopeless: not at all Feel stressed/tense/nervous/anxious/difficulty sleeping: not at all Do you think of yourself as: straight/heterosexual Gender Identity: female Exam Narrative Exam Narrative: General: No distress, age-appropriate Skin: Warm, dry, pallor. No rash. Head: Normocephalic, atraumatic. Neck: Supple, non-tender. Eye: Pupils are equal, round and EOMI. No scleral icterus. Ears, Nose, Mouth, and Throat: No nasal mucosal hypertrophy. Oral mucosa is moist, no posterior oropharynx erythema, uvula is mid-line Cardiovascular: Regular Rate and Rhythm without murmur, gallop or rub. Respiratory: No accessory muscle use or respiratory distress. Lungs are clear to auscultation, no wheezing, rales or rhonchi Chest Wall: no tenderness Back: No midline thoracic or lumbar vertebral tenderness. Musculoskeletal: Full ROM of all extremities, no calf or popliteal tenderness GI: Abdomen is soft, mildly distended, diffusely tender to palpation. No masses appreciated. No rebound, guarding, or rigidity noted. Multiple surgical incisions, healing, no dehiscence, no surrounding erythema, no drainage. Neurological: A&O x4. No cranial nerve dysfunction observed. No truncal ataxia. Moves all extremities. Sensation intact. Psychiatric: Cooperative and interactive. Normal mood and affect. Constitutional Vital Signs, click to edit/add: Last Vital Signs Temp 98.2 F 08/17/25 20:00 Pulse 85 08/17/25 20:00 Resp 18 08/17/25 20:00 BP 98/59 08/17/25 20:00 Pulse Ox 94 L 08/17/25 20:00 O2 Del Method Room Air 08/17/25 20:00 Documenting provider has reviewed patient's vital signs: yes Course Vital Signs Vital signs: Vital Signs Blood Pressure 103/70 08/16/25 19:25 Temperature 98.2 F 08/17/25 20:00 Pulse Rate 85 08/17/25 20:00 Respiratory Rate 18 08/17/25 20:00 Blood Pressure 98/59 08/17/25 20:00 Pulse Oximetry 94 L 08/17/25 20:00 Oxygen Delivery Method Room Air 08/17/25 20:00 Medical Decision Making [facility] Narrative Medical decision making narrative: 70-year-old female, one week post?hysterectomy for endometrial adenocarcinoma, presents after outpatient labs revealed WBC 33K and potassium 2.4. She reports several days of diarrhea and weakness following recent hospitalization and perioperative antibiotic exposure. Vitals are hemodynamically stable. Laboratory evaluation shows severe neutrophilic leukocytosis (94% segs), reactive thrombocytosis (649K), and significant hypokalemia consistent with ongoing GI losses. Given her postoperative status, recent antibiotic use, profuse diarrhea, and marked leukocytosis, the leading concern is severe C. difficile colitis, though other infectious etiologies of colitis remain on the differential. CT abdomen/pelvis ordered. No clinical evidence at present for pneumonia, UA pending. Patient received IV fluids and aggressive electrolyte repletion. Stool occult blood negative, stool culture and C. difficile PCR ordered. At this time, 2200, my shift was ending and patient was signed out to Dr. Corrales. Disposition will be pending CT ab/pel findings. This 70-year-old female was seen and evaluated in conjunction with the physician assistant hvac mechanic. She was recently diagnosed with endometrial adenocarcinoma and underwent a robotic hysterectomy at [facility]. Her surgery was last Wednesday. She has been recovering at home and has been having diarrhea. She has had little p.o. intake but has been tolerating some boost drinks and saltines. She had routine blood work done today and was referred to the emergency department for laboratory abnormalities. Differential Diagnosis Differential Diagnosis: Intra-abdominal abscess, C. difficile, UTI, PNA Lab Data Lab results reviewed: Yes I reviewed the patient's lab results Labs: Lab Results 08/16/25 08/16/25 08/16/25 Range/Units 19:50 22:02 23:15 WBC 33.2 H* (4.0-11.0) 10^3/uL RBC 3.69 L (4.20-5.40) 10^6/uL Hgb 10.5 L (12.0-16.0) g/dL Hct 32.3 L (36.0-48.0) % MCV 87.5 (81.0-99.0) fL MCH 28.5 (26.7-34.0) pg MCHC 32.5 (29.9-35.2) g/dL RDW 15.7 H (11.0-15.0) % Plt Count 649 H (150-450) 10^3/uL MPV 9.5 (9.5-13.5) fL Seg Neuts % (Manual) 94.0 H (43.0-75.0) Lymphocytes % (Manual) 3.0 L (20.5-60.0) % Monocytes % (Manual) 3.0 (1.7-12.0) % Eosinophils % (Manual) 0.0 L (0.9-7.0) % Basophils % (Manual) 0.0 L (0.2-2.0) % Neutrophils # (Manual) 31.20 H (1.4-6.5) 10^3/uL Lymphocytes # (Manual) 0.99 L (1.20-3.80) 10^3/uL Monocytes # (Manual) 0.99 H (0.30-0.80) 10^3/uL Eosinophils # (Manual) 0.00 (0.00-0.70) 10^3/uL Basophils # (Manual) 0.00 (0.00-0.10) 10^3/uL Sodium 140 (136-145) mmol/L Potassium 2.4 L* (3.5-5.1) mmol/L Chloride 104 (98-107) mmol/L Carbon Dioxide 24.2 (21.0-32.0) mmol/L Anion Gap 14.2 BUN 25.0 H (7.0-18.0) mg/dL Creatinine 0.82 (0.55-1.02) mg/dL Est GFR ( Amer) >60 (>=60 mL/min/1.73m^2) Est GFR (Non-Af Amer) >60 (>=60 mL/min/1.73m^2) BUN/Creatinine Ratio 30.5 Glucose 138 H (74-106) mg/dL Lactate 1.3 (0.4-2.0) mmol/L Calcium 8.7 (8.5-10.1) mg/dL Phosphorus 3.6 (2.6-4.7) mg/dL Magnesium 2.3 (1.8-2.4) mg/dL Total Bilirubin 0.4 (0.2-1.0) mg/dL AST 14 L (15-37) U/L ALT 19 (14-59) U/L Alkaline Phosphatase 93 (46-116) U/L Total Protein 6.4 (6.4-8.2) g/dL Albumin 2.3 L (3.4-5.0) g/dL Globulin 4.1 g/dL Albumin/Globulin Ratio 0.6 Stool Occult Blood Negative Specimen Source Blood A.calcoaceticus-baumannii cmplx PCR Not detected (NOT DETECTE) Bacteroides fragilis Not detected (NOT DETECTE) Azalia albicans (PCR) Not detected (NOT DETECTE) Azalia auris (PCR) Not detected (NOT DETECTE) C. glabrata (PCR) Not detected (NOT DETECTE) C. krusei (PCR) Not detected (NOT DETECTE) C. parapsilosis (PCR) Not detected (NOT DETECTE) C. tropicalis (PCR) Not detected (NOT DETECTE) C. neoform/gattii (PCR) Not detected (NOT DETECTE) Enterobacterales (PCR) Not detected (NOT DETECTE) E. cloacae complex PCR Not detected (NOT DETECTE) Enterococc faecalis PCR Not detected (NOT DETECTE) Enterococc faecium PCR Not detected (NOT DETECTE) E. coli (PCR) Not detected (NOT DETECTE) H. influenzae (PCR) Not detected (NOT DETECTE) Klebsiella aerogenes (PCR) Not detected (NOT DETECTE) Klebsiella oxytoca PCR Not detected (NOT DETECTE) K. pneumoniae group (PCR) Not detected (NOT DETECTE) List. monocytogenes PCR Not detected (NOT DETECTE) N. meningitidis (PCR) Not detected (NOT DETECTE) Proteus spp. (copies/mL) Not detected (NOT DETECTE) Salmonella spp. (PCR) Not detected (NOT DETECTE) Serratia marcescens PCR Not detected (NOT DETECTE) Staphylococcus sp PCR Not detected (NOT DETECTE) Staph aureus (PCR) Not detected (NOT DETECTE) mecA/C & MREJ Resist Gene Not applicable (NOT DETECTE) mecA/C-Methicil Resis Gene Not applicable (NOT DETECTE) mcr-1 Colistin Res Gene PCR Not applicable (NOT DETECTE) Staph epidermidis (PCR) Not detected (NOT DETECTE) Staph lugdunensis (TEM-PCR) Not detected (NOT DETECTE) S. maltophilia (PCR) Not detected (NOT DETECTE) Streptococcus sp PCR Detected A* (NOT DETECTE) Strep agalactiae (PCR) Not detected (NOT DETECTE) Strep pneumoniae (PCR) Not detected (NOT DETECTE) S. pyogenes (PCR) Not detected (NOT DETECTE) P. aeruginosa (PCR) Not detected (NOT DETECTE) Matt/B-Vanco Res Genes Not applicable (NOT DETECTE) blaIMP Car res Gene PCR Not applicable (NOT DETECTE) KPC (blaKPC) Detect PCR Not applicable (NOT DETECTE) NDM (blaNDM) Detect PCR Not applicable (NOT DETECTE) OXA-48 Carbapenem Resis Gene (PCR) Not applicable (NOT DETECTE) blaVIM Car Res Gene PCR Not applicable (NOT DETECTE) CTX-M ESBL (PCR) Not applicable (NOT DETECTE) C. difficile Toxin PCR Positive A* Imaging Data CT scan - abdomen: Attestation: I have reviewed the pertinent imaging results. Radiologist's impression: ITS Impressions Chest X-Ray 08/16/25 20:15 IMPRESSION: No acute process. Left chest wall subcutaneous air. Correlate with recent surgery. May consider infectious etiology. Impression dictated by: Malik Story M.D. 08/16/2025 8:42 PM Dictation Location: [email or web address] Electronically authenticated by: [id number] Y Date: 08/16/2025 20:42 Abdomen/Pelvis CT 08/16/25 20:47 IMPRESSION: Acute pancolitis. Small amount of ascites. May consider pseudomembranous colitis. Extensive subcutaneous air throughout the abdominal wall. May represent postsurgical change. Consideration for infectious etiology. Impression dictated by: Malik Story M.D. 08/16/2025 9:46 PM Dictation Location: [email or web address] Electronically authenticated by: [id number] Y Date: 08/16/2025 21:46 Discharge Plan Discharge Chief Complaint: Weakness Clinical Impression: C. difficile colitis Patient Disposition: Admitted as Observation Time of Disposition Decision: 22:30 Condition: Fair Discharge Date/Time: 08/16/25 23:55 Documented by User: Bethanie Corrales MD 08/16/25 22:44 HPI HPI - General Adult General Chief complaint: Weakness Stated complaint: LAB RECHECK Time Seen by Provider: 08/16/25 19:21 Related Data Home Medications ?Medication ?Instructions ?Recorded ?Confirmed acetazolamide 250 mg tablet 250 mg PO Q12H 08/03/25 dorzolamide 2 % eye drops 1 drp ophthalmic (eye) TID 1 10/03/24 08/16/25 netarsudil 0.02 %-latanoprost 1 drp ophthalmic (eye) Q PM 08/03/25 08/16/25 0.005 % eye drops (Rocklatan) timolol 0.5 % eye drops 1 drp ophthalmic (eye) BID 1 10/03/24 08/16/25 potassium chloride 10 mEq 20 meq PO QID 08/17/2508/17 tablet,extended release Allergies Allergy/AdvReac Type Severity Reaction Status Date / Time latex Allergy Hives Verified 08/16/25 19:29 Opioid HPI Opioid Management Most Recent Opioid Data: Last Pain Scale 4 Today, 19:00 Last Pain Assessment Today, 19:00 Last MAR Pain Assessment Today, 16:42 Last ORT Total Score 0 Today, 00:06 Last ORT Risk Category Low Risk Today, 00:06 PFSH PFSH Medical History (Updated 08/17/25 @ 21:07 by RE Fregoso) Glaucoma ?H40.9 - Unspecified glaucoma (ICD-10) Hypokalemia ?E87.6 - Hypokalemia (ICD-10) Lymph node cancer ?C77.9 - Secondary and unspecified malignant neoplasm of lymph node, unspecified (ICD-10) Hysterectomy planned Family History (Updated 08/17/25 @ 00:28 by Chantale Boyle, JORDYN) Father Family history of CHF (congestive heart failure) Family history of cancer Family history of diabetes mellitus Family history of myocardial infarction Family history of stroke Mother Family history of cancer Brother Family history of hypertension Social History (Updated 08/17/25 @ 00:29 by Chantale Boyle, JORDYN) Within the past year, how often did you have a drink containing alcohol: never Score interpretation: A score less than 3 is consistent with normal alcohol consumption. Smoking status: Never smoker Non-prescribed substance use: denies use Known occupational exposures/hazards: Yes Highest level of school completed/degree received: Bachelor's degree Are you now , , , , never or living with a partner: In a typical week, how many times do you talk on the telephone with family, friends, or neighbors: 3 or more times per week How often do you get together with friends or relatives: 3 or more times per week Little interest or pleasure in doing things: not at all Feeling down, depressed, or hopeless: not at all Feel stressed/tense/nervous/anxious/difficulty sleeping: not at all Do you think of yourself as: straight/heterosexual Gender Identity: female Exam Constitutional Vital Signs, click to edit/add: Last Vital Signs Temp 98.2 F 08/17/25 20:00 Pulse 85 08/17/25 20:00 Resp 18 08/17/25 20:00 BP 98/59 08/17/25 20:00 Pulse Ox 94 L 08/17/25 20:00 O2 Del Method Room Air 08/17/25 20:00 Course Vital Signs Vital signs: Vital Signs Blood Pressure 103/70 08/16/25 19:25 Temperature 98.2 F 08/17/25 20:00 Pulse Rate 85 08/17/25 20:00 Respiratory Rate 18 08/17/25 20:00 Blood Pressure 98/59 08/17/25 20:00 Pulse Oximetry 94 L 08/17/25 20:00 Oxygen Delivery Method Room Air 08/17/25 20:00 Medical Decision Making MDM Narrative Medical decision making narrative: This 70-year-old female was seen and evaluated in conjunction with the physician assistant hvac mechanic. She was recently diagnosed with endometrial adenocarcinoma and underwent a robotic hysterectomy at [facility]. Her surgery was last Wednesday. She has been recovering at home and has been having diarrhea. She has had little p.o. intake but has been tolerating some boost drinks and saltines. She had routine blood work done today and was referred to the emergency department for laboratory abnormalities. Blood work was repeated here. Her white count is 33. Potassium is 2.6. Her abdomen is tender after having robotic hysterectomy. She has multiple trocar insertion sites on her abdomen. Due to the elevated white count blood cultures and lactic acid was added on. Chest x-ray shows subcutaneous air but no infiltrate and CT scan of the abdomen pelvis shows acute pancolitis with a small amount of ascites consideration is for pseudomembranous colitis/C. difficile. There is also extensive crepitation is air throughout the abdominal wall that is suggestive of postsurgical change. In light of the elevated white count, diarrhea a C. difficile culture was sent to the lab. She will be empirically treated with oral vancomycin. Her BUN and creatinine are stable. She was also given oral and IV potassium supplementation for the hypokalemia. The patient declined transfer to the hospital where she had her surgery and request to be admitted here if she needs admission. I did discuss the case with the hospitalist who was agreeable to admission. She will be given a first dose of oral vancomycin pending C. difficile cultures. She is otherwise hemodynamically stable. Lab Data Labs: Lab Results 08/16/25 08/16/25 08/16/25 Range/Units 19:50 22:02 23:15 WBC 33.2 H* (4.0-11.0) 10^3/uL RBC 3.69 L (4.20-5.40) 10^6/uL Hgb 10.5 L (12.0-16.0) g/dL Hct 32.3 L (36.0-48.0) % MCV 87.5 (81.0-99.0) fL MCH 28.5 (26.7-34.0) pg MCHC 32.5 (29.9-35.2) g/dL RDW 15.7 H (11.0-15.0) % Plt Count 649 H (150-450) 10^3/uL MPV 9.5 (9.5-13.5) fL Seg Neuts % (Manual) 94.0 H (43.0-75.0) Lymphocytes % (Manual) 3.0 L (20.5-60.0) % Monocytes % (Manual) 3.0 (1.7-12.0) % Eosinophils % (Manual) 0.0 L (0.9-7.0) % Basophils % (Manual) 0.0 L (0.2-2.0) % Neutrophils # (Manual) 31.20 H (1.4-6.5) 10^3/uL Lymphocytes # (Manual) 0.99 L (1.20-3.80) 10^3/uL Monocytes # (Manual) 0.99 H (0.30-0.80) 10^3/uL Eosinophils # (Manual) 0.00 (0.00-0.70) 10^3/uL Basophils # (Manual) 0.00 (0.00-0.10) 10^3/uL Sodium 140 (136-145) mmol/L Potassium 2.4 L* (3.5-5.1) mmol/L Chloride 104 (98-107) mmol/L Carbon Dioxide 24.2 (21.0-32.0) mmol/L Anion Gap 14.2 BUN 25.0 H (7.0-18.0) mg/dL Creatinine 0.82 (0.55-1.02) mg/dL Est GFR ( Amer) >60 (>=60 mL/min/1.73m^2) Est GFR (Non-Af Amer) >60 (>=60 mL/min/1.73m^2) BUN/Creatinine Ratio 30.5 Glucose 138 H (74-106) mg/dL Lactate 1.3 (0.4-2.0) mmol/L Calcium 8.7 (8.5-10.1) mg/dL Phosphorus 3.6 (2.6-4.7) mg/dL Magnesium 2.3 (1.8-2.4) mg/dL Total Bilirubin 0.4 (0.2-1.0) mg/dL AST 14 L (15-37) U/L ALT 19 (14-59) U/L Alkaline Phosphatase 93 (46-116) U/L Total Protein 6.4 (6.4-8.2) g/dL Albumin 2.3 L (3.4-5.0) g/dL Globulin 4.1 g/dL Albumin/Globulin Ratio 0.6 Stool Occult Blood Negative Specimen Source Blood A.calcoaceticus-baumannii cmplx PCR Not detected (NOT DETECTE) Bacteroides fragilis Not detected (NOT DETECTE) Azalia albicans (PCR) Not detected (NOT DETECTE) Azalia auris (PCR) Not detected (NOT DETECTE) C. glabrata (PCR) Not detected (NOT DETECTE) C. krusei (PCR) Not detected (NOT DETECTE) C. parapsilosis (PCR) Not detected (NOT DETECTE) C. tropicalis (PCR) Not detected (NOT DETECTE) C. neoform/gattii (PCR) Not detected (NOT DETECTE) Enterobacterales (PCR) Not detected (NOT DETECTE) E. cloacae complex PCR Not detected (NOT DETECTE) Enterococc faecalis PCR Not detected (NOT DETECTE) Enterococc faecium PCR Not detected (NOT DETECTE) E. coli (PCR) Not detected (NOT DETECTE) H. influenzae (PCR) Not detected (NOT DETECTE) Klebsiella aerogenes (PCR) Not detected (NOT DETECTE) Klebsiella oxytoca PCR Not detected (NOT DETECTE) K. pneumoniae group (PCR) Not detected (NOT DETECTE) List. monocytogenes PCR Not detected (NOT DETECTE) N. meningitidis (PCR) Not detected (NOT DETECTE) Proteus spp. (copies/mL) Not detected (NOT DETECTE) Salmonella spp. (PCR) Not detected (NOT DETECTE) Serratia marcescens PCR Not detected (NOT DETECTE) Staphylococcus sp PCR Not detected (NOT DETECTE) Staph aureus (PCR) Not detected (NOT DETECTE) mecA/C & MREJ Resist Gene Not applicable (NOT DETECTE) mecA/C-Methicil Resis Gene Not applicable (NOT DETECTE) mcr-1 Colistin Res Gene PCR Not applicable (NOT DETECTE) Staph epidermidis (PCR) Not detected (NOT DETECTE) Staph lugdunensis (TEM-PCR) Not detected (NOT DETECTE) S. maltophilia (PCR) Not detected (NOT DETECTE) Streptococcus sp PCR Detected A* (NOT DETECTE) Strep agalactiae (PCR) Not detected (NOT DETECTE) Strep pneumoniae (PCR) Not detected (NOT DETECTE) S. pyogenes (PCR) Not detected (NOT DETECTE) P. aeruginosa (PCR) Not detected (NOT DETECTE) Matt/B-Vanco Res Genes Not applicable (NOT DETECTE) blaIMP Car res Gene PCR Not applicable (NOT DETECTE) KPC (blaKPC) Detect PCR Not applicable (NOT DETECTE) NDM (blaNDM) Detect PCR Not applicable (NOT DETECTE) OXA-48 Carbapenem Resis Gene (PCR) Not applicable (NOT DETECTE) blaVIM Car Res Gene PCR Not applicable (NOT DETECTE) CTX-M ESBL (PCR) Not applicable (NOT DETECTE) C. difficile Toxin PCR Positive A* Imaging Data CT scan - abdomen: Radiologist's impression: ITS Impressions Chest X-Ray 08/16/25 20:15 IMPRESSION: No acute process. Left chest wall subcutaneous air. Correlate with recent surgery. May consider infectious etiology. Impression dictated by: Malik Story M.D. 08/16/2025 8:42 PM Dictation Location: [email or web address] Electronically authenticated by: [id number] Y Date: 08/16/2025 20:42 Abdomen/Pelvis CT 08/16/25 20:47 IMPRESSION: Acute pancolitis. Small amount of ascites. May consider pseudomembranous colitis. Extensive subcutaneous air throughout the abdominal wall. May represent postsurgical change. Consideration for infectious etiology. Impression dictated by: Malik Story M.D. 08/16/2025 9:46 PM Dictation Location: [email or web address] Electronically authenticated by: [id number] Y Date: 08/16/2025 21:46 ECG Data Attestation: I personally reviewed and interpreted this ECG as follows: (Sinus rhythm 82 beats per minutes with occasional PVCs, normal axis, nonspecific ST changes, no acute ST segment elevation or T wave inversion) Discharge Plan Discharge Chief Complaint: Weakness Clinical Impression: C. difficile colitis Patient Disposition: Admitted as Observation Time of Disposition Decision: 22:30 Condition: Fair Discharge Date/Time: 08/16/25 23:55
--- OUTSIDE RECORDS SUMMARY | 2025-08-16 20:22 | XMS_ITS | Clinical Summary ---
Author Organization [employer] s tem Address [facility] [id number] [address] [place] [address] Care Team Providers Care Waiter/Waitress Name Role Phone Bin Sidhu MD Primary Care Provider [phone] Allergies Active AllergyReactionsCriticalityNoted XfoxKyguyuwvLtqXlnzzfjkkgSpu12/08/2025 LatexHives,Facial XsltozboGinjbv00/08/2025 Medications MedicationSigDispense QuantityRefillsLast FilledStart DateEnd DateStatus dorzolamide (TRUSOPT) 2 % ophthalmic solution Administer 1 drop to both eyes 3 (three) times a day.Active netarsudiL-latanoprost 0.02-0.005 % drops Instill 1 drop to eye in the evening.Active acetaZOLAMIDE (DIAMOX) 250 mg tablet Take 1 tablet (250 mg total) by mouth in the morning and 1 tablet (250 mg total) before bedtime.Active timolol (TIMOPTIC) 0.5 % ophthalmic solution Administer 1 drop to both eyes in the morning and 1 drop before bedtime.Active senna (SENOKOT) 8.6 mg tablet Take 1 tablet (8.6 mg total) by mouth in the morning and 1 tablet (8.6 mg total) before bedtime. 60 tablet 5Active acetaminophen (TYLENOL EXTRA STRENGTH) 500 mg tablet Take 2 tablets (1,000 mg total) by mouth every 8 (eight) hours as needed for pain, fever or headaches. 30 tablet 5Active famotidine (PEPCID) 20 mg tablet Indications:NauseaTake 1 tablet (20 mg total) by mouth in the morning and 1 tablet (20 mg total) before bedtime. 10 tablet 5Active dexAMETHasone (DECADRON) 4 mg tablet Indications:Endometrial cancer determined by uterine biopsy ([facility])Take 2 tablets (8 mg) by mouth once daily on days 2, 3 and 4. 60 tablet 5Active ondansetron (ZOFRAN) 8 mg tablet Indications:Endometrial cancer determined by uterine biopsy ([facility])Starting on day 3, take 1 tablet by mouth twice daily as needed for nausea or vomiting. 60 tablet 5Active prochlorperazine (COMPAZINE) 10 mg tablet Indications:Endometrial cancer determined by uterine biopsy ([facility])Take 1 tablet by mouth every 6 hours as needed for nausea or vomiting on days 1 and 2. 60 tablet 5Active lidocaine-prilocaine (EMLA) cream Indications:Endometrial cancer determined by uterine biopsy ([facility]), Port-A-Cath in placeApply 1 Application topically as needed for pain (Port Access) for up to 12 days. Apply 2.5 grams to port site one hour prior to access prn. Cover with occlusive dressing as directed. 30 g /5Active ondansetron ODT (ZOFRAN ODT) 4 mg disintegrating tablet Indications:Endometrial cancer ([facility])Dissolve 1 tablet (4 mg total) on tongue every 8 (eight) hours as needed for nausea or vomiting. 20 tablet 5Active oxyCODONE (ROXICODONE) 5 mg immediate release tablet Indications:Pelvic mass,Endometrial cancer ([facility])Take 1 tablet (5 mg total) by mouth every 6 (six) hours as needed for pain for up to 4 days. Max Daily Amount: 20 mg 15 tablet /5Active semaglutide (WEGOVY SUBQ) Inject under the skin.08/04/2025Discontinued(Error) acetaminophen (TYLENOL EXTRA STRENGTH) 500 mg tablet Take 2 tablets (1,000 mg total) by mouth every 6 (six) hours as needed for pain, fever or headaches. 30 tablet Discontinued oxyCODONE (ROXICODONE) 5 mg immediate release tablet Indications:Pelvic massTake 1 tablet (5 mg total) by mouth every 6 (six) hours as needed for pain for up to 3 days. Max Daily Amount: 20 mg 12 tablet Discontinued oxyCODONE (ROXICODONE) 5 mg immediate release tablet Indications:Pelvic massTake 1 tablet (5 mg total) by mouth every 6 (six) hours as needed for pain for up to 3 days. Max Daily Amount: 20 mg 15 tablet Discontinued(Reorder) ondansetron ODT (ZOFRAN ODT) 4 mg disintegrating tablet Dissolve 1 tablet (4 mg total) on tongue every 8 (eight) hours as needed for nausea or vomiting. 20 tablet Discontinued(Reorder) Active Problems ProblemNoted DateDiagnosed DateEndometrial cancer determined by uterine biopsy 08/08/2025Pelvic mass08/04/2025 Resolved Problems ProblemNoted DateDiagnosed DateResolved DateVaginal Vagina cosjlkkq35 Encounters DateTypeDepartmentCare GnhePprzgzscbmk42/20/2025 3:00 PM ESTProcedure visit [facility] - [facility] [address] [place] [address] Preop examination (Primary Dx); Anemia, unspecified type08/16/20258069Qcguty34/19/2025Telephone [facility] Oncology, A Department of [place] [address] [place] [address] Milagros Machado RN 08/14/2025Telephone [facility], A Department of [place] [address] [place] [address] Christi Tsang CMA 08/14/2025Orders Only [facility], A Department of [place] [address] [place] [address] Milagros Machado RN Endometrial cancer determined by uterine biopsy ([facility]) (Primary Dx)08/14/2025 Orders Only Paola Wilson [facility] - Medical Oncology [address] [place] [address] Melinda Coffey PA Post-operative nausea and vomiting (Primary Dx); Pelvic mass; Endometrial cancer ([facility])08/13/2025Telephone [facility], A Department of [facility] [address] [place] [address] Milagros Machado RN 08/10/2025Orders Only [facility], A Department of [facility] [address] [place] [address] Desmond Martin RN 08/10/2025Telephone [facility], A Department of [facility] [address] [place] [address] Milagros Machado RN 08/09/2025Telephone [facility] General Surgery [address] [place] [address] Regina Zarate, [facility] 08/08/2025Orders Only [facility], A Department of [facility] [address] [place] [address] Milagros Machado RN Endometrial cancer determined by uterine biopsy ([facility]) (Primary Dx)08/07/2025 1:30 PM ESTAnesthesia Event [facility] Surgery [address] [place] [phone] Mahendra Rico MD Roberts, Alyssa, [facility] 08/07/2025 12:30 PM EST - 08/07/2025 3:00 PM ESTSurgery [facility] Surgery [address] [place], [place] [address], [place] [address] Dennis Monson MD DAVINCI HYSTERECTOMY SALPINGO OOPHORECTOMY/RADICAL INTRAPERITONEAL TUMOR BBHQMOIVM26/11/7380Iilzgx42/10/2025Telephone [facility], A Department of [address] [place] [address] Rocio Alexander MD Plrmnckap64/09/2025Orders Only [facility] [address] [place] [phone] Transcribe, Orders Support User Pain (Primary Dx)08/04/2025 9:37 AM ESTAnesthesia Event [facility] - Surgery [address] [place] [address]. [place] [address] Franklin Ramos MD Rayle, Marissa, APRN-BHARTI 08/04/2025 8:30 AM EST - 08/04/2025 9:40 AM ESTSurgery [facility] - Surgery [address] [place] [address]. [place] [address] Rocio Alexander MD DILATION CURETTAGE [[id number] (CPT??)]08/04/2025 3:32 AM EST - 08/09/2025 5:49 PM ESTHospital Encounter [facility] - GEN [address] [place] [phone] Rocio Alexander MD Endometrial cancer determined by uterine biopsy ([facility]) (Primary Dx); Pelvic mass; Limited mobility; Nausea Discharge Disposition: Home08/04/20253459Xooffa00/06/2025 7:10 PM ESTAncillary Procedure [facility] [address] [place] [phone] Pain08/02/2025 6:05 PM ESTAncillary Procedure [facility] [address] [place] [phone] Painfrom Last 3 Months Immunizations No known immunizations Family History Medical HistoryRelationNameCommentsCancerFatherCancerMotherRelationNameStatus CommentsFatherDeceasedMotherDeceased Social History Tobacco UseTypesPacks/DayYears UsedDateSmoking Tobacco: NeverSmokeless Tobacco: Never Tobacco Cessation:Counseling Given: Not Answered Alcohol UseStandard Drinks/WeekCommentsNever0 (1 standard drink = 0.6 oz pure alcohol)PHQ-2AnswerDate RecordedTotal Iywik37610/04/2024UDIT-CAnswerDate Recorded Q1: How often do you have [...] InformationValueDate RecordedSex Assigned at BirthNot on fileLegal AzrQgulgy33/08/2025 12:05 AM ESTGender IdentityNot on fileSexual OrientationNot on file Last Filed Vital Signs Vital SignReadingTime TakenCommentsBlood Frspgmor062/7208/09/2025 7:49 AM EST Uutit173908/09/2025 7:49 AM VOMTknywbutnnj62.4 ??C (99.4 ??F)08/09/2025 7:49 AM ESTRespiratory Ihgu045010/09/2024 7:49 AM ESTOxygen Tsfvaxkovq34%08/09/2025 7:49 AM ESTInhaled Oxygen Concentration--Ywbndr67.3 kg (155 lb)08/16/2025 3:27 PM EST Zivfgn729.5 cm (5' 2 )08/16/2025 3:27 PM ESTBody Mass Index28.35110/16/2024 3:27 PM EST Plan of Treatment DateTypeDepartmentCare Team (Latest Contact Info)Yupaoloeipk85/24/2025 11:30 AM ESTHospital Encounter [facility] - Surgery [address] [place] [phone] Justin Mackey MD [address] [place] [phone] 08/20/2025 11:30 AM EST - 08/20/2025 12:30 PM ESTSurgery [facility] - Surgery [address] [place] [phone] Justin Mackey MD [address] [place] [phone] INSERTION PORT A CATH [[id number] (CPT??)]08/21/2025 8:00 AM ESTInfusion Paola Ellington [facility] - Medical Oncology [address] [place] [phone] 08/21/2025 11:00 AM ESTOffice Visit Paola Ellington [facility] - Medical Oncology [address] [place] [phone] Melinda Coffey PA [address] [place] [address] 09/10/2025 11:00 AM ESTInfusion Paola Ellington [facility] - Medical Oncology [address] [place] [address] 09/10/2025 1:30 PM ESTOffice Visit [facility], A Department of [address] [place] [phone] Annita Patton, CLAIMS ACCOUNT MANAGER-MANAGER RECRUITING [address] [place] [address], [address] [place] [address] 09/11/2025 8:00 AM ESTInfusion Paola Ellington [facility] - Medical Oncology [address] [place] [phone] NamePriorityAssociated DiagnosesDate/TimeINSERTION PORT A CATH needed for chemotherapy 08/20/2025 11:30 AM ESTHealth MaintenanceDue DateLast DoneCommentsAdult BMI Follow Up Plan1973DTaP,Tdap and Td Vaccines (1 - Tdap)1974Zoster (Shingles) Vaccine (1 of 2)1974RSV ( or age 60+ yrs) (1 - Risk 60- 74 years 1-dose series)2015Fall Risk Yxvokoxjz82/05/2020Influenza Vaccine 05/28/2025Depression Dwboxdnfd58dult BMI Egfvkttnt73/20/2026 08/16/2025Tobacco Wuyvtueoj20 Goals GoalPatient Goal TypeAssociated ProblemsRecent ProgressPatient-Stated?Author return home Milagros Escobedo RN Note: Evaluation of progress towards goal: patient plans to return home with family support Autogenerated Goal Care PlanAutogenerated ProblemNoPotts, [employer] Not on file Procedures Procedure NamePriorityDate/TimeAssociated DiagnosisCommentsBASIC METABOLIC PANEL Mzmvkuk1708/16/2025 3:52 PM EST Preop examination CBC WITH AUTO ALZXKJYZFKPJYrbbwio69/20/2025 3:52 PM EST Preop examination Anemia, unspecified type CROSSMATCH LPPXshyyxg35/15/2025 12:37 AM EST CBC WITH AUTO ZYSVUJOPBHWLNyfnrxg64/13/2025 5:32 AM EST COMPREHENSIVE METABOLIC CEZGNTcyxcgd22/13/2025 5:32 AM EST CBC WITH AUTO XMMFICRVHEPPMnfzdnl93/12/2025 5:58 AM EST TYPE AND NKEGSGSvslzaf77/12/2025 5:57 AM EST COMPREHENSIVE METABOLIC EGGWBTckeltw05/12/2025 5:57 AM EST SURGICAL MATJPWMLHIegqyht23/11/2025 3:42 PM EST NON-GYNECOLOGIC KDBAXVXDXnxvgdn30/11/2025 2:44 PM EST TRANSFUSE RED BLOOD WTNQATssyrat27/11/2025 2:23 PM ESTPR AN ELECTIVE ENDOTRACHEAL BZSBYPXhilwzk96/11/2025 1:44 PM EST FLEXIBLE ZYGPLUTIKJQBB32/11/2025 1:30 PM EST ENDOMETRIAL CANCER Case Notes [facility] 2W MOVE UP TO 1130 Special Needs MOVE UP TO 1130 DAVINCI HYSTERECTOMY SALPINGO QCAIKONWACEI33/11/2025 1:30 PM EST ENDOMETRIAL CANCER Case Notes [facility] 2W MOVE UP TO 1130 Special Needs MOVE UP TO 1130 COMPREHENSIVE METABOLIC KTDGSUdmasxc38/11/2025 5:40 AM EST CBC WITH AUTO DFFJYNGLRBJZTwoioeu03/11/2025 5:40 AM EST CROSSMATCH MQCWrbzfgb57/10/2025 6:37 AM ESTCOMPREHENSIVE METABOLIC PANELRoutine 08/06/2025 6:23 AM EST CBC WITH AUTO DTUAFSSJRFAGRdvibmp79/10/2025 6:23 AM EST COMPREHENSIVE METABOLIC DHDJZZubpybv01/09/2025 8:[address] CHEST W LNBDCazjnfp22/09/2025 12:11 PM EST CBC WITH AUTO LPCRPZTUSZQSNsmujtu28/09/2025 4:02 AM EST COMPREHENSIVE METABOLIC UXKTRImxaycx91/09/2025 4:02 AM EST CBC WITH AUTO DYJHKKCTKTWABunxbds74/08/2025 12:18 PM EST TRANSFUSE RED BLOOD RSWLUPzggzsm31/08/2025 10:00 AM ESTPR AN ELECTIVE ENDOTRACHEAL WIYIEUCfiachr90/08/2025 9:48 AM EST MI HYSTEROSCOPY,W/ENDO BX08/04/2025 9:37 AM EST vaginal bleed TRANSFUSE RED BLOOD FNLJRMwfcqyl92/08/2025 8:39 AM ESTREPEATED ABORHRoutine 08/04/2025 8:27 AM ESTREPEATED MTREMEgckdyp45/08/2025 7:41 AM EST CROSSMATCH CPUYuseuqk98/08/2025 5:30 AM EST TYPE AND YUPUXESlkcfhk07/08/2025 5:30 AM EST HFOZKCAXHILmqodfb96/08/2025 5:30 AM EST JDMAYzaznhl75/08/2025 5:30 AM EST PROTIME & OCRWgtsdzo25/08/2025 5:30 AM EST CBC WITH AUTO SZRVJZMGZWLKJwcreut87/08/2025 5:30 AM EST COMPREHENSIVE METABOLIC XDVWFLpftbdb20/04/2025 5:30 AM EST PULSE OXIMETRY, EVBWLdtfzjl12/08/2025 3:38 AM ESTCT ABDOMEN AND PELVIS W CONT Gtpaair2308/02/2025 7:10 PM EST Pain US DUPLEX ABD PELVIS PAGEShjeedb19/06/2025 6:05 PM EST Pain from Last 3 Months Results * (ABNORMAL) CBC auto differential (08/16/2025 3:52 PM EST) Only the most recent of8 resultswithin the time period is included. ComponentValueRef RangeTest MethodAnalysis TimePerformed AtPathologist Signature WBC30.6(H)4 - 11 10^9/L110/16/2024 4:45 PM [facility]DETW[facility] RBC Count4.063.8 - 5.2 10^12/L110/16/2024 4:45 PM ESTDETWILER [facility]OSPITALHemoglobin11.4(L)11.7 - 15.5 g/dL08/16/2025 4:45 PM ESTDETWILER [facility]IAL [facility]OSPITALHematocrit34.4(L)35 - 47 %08/16/2025 4:45 PM ESTDETWILER MEMORIAL HOSPITALMCV8580 - 100 fL08/16/2025 4:45 PM ESTPROSHRINERS HOSPITALMCH28.027 - 34 pg08/16/2025 4:45 PM ESTPROSHRINERS HOSPITALMCHC33.032 - 36 g/dL08/16/2025 4:45 PM ESTPROSHRINERS HOSPITALRDW16.6(H)11.5 - 15 %08/16/2025 4:45 PM ESTDETWILER MEMORIAL [facility]OSPITALPlatelet Hrklt750(H)150 - 450 10^9/L110/16/2024 4:45 PM EST [facility]ITALMPV8.07 - 12 fL08/16/2025 4:45 PM EST [facility]ITALBands %8%08/16/2025 4:45 PM ESTDETWILER MEMORIAL HOSPITALComment:This is an appended report. These results have been appended to a previously preliminary verified report.Neutrophils %81% 08/16/2025 4:45 PM [facility]This is an appended report. These results have been appended to a previously preliminary verified report.Lymphocytes %4%08/16/2025 4:45 PM [facility]Comment:This is an appended report. These results have been appended to a previously preliminary verified report.Monocytes %7%08/16/2025 4:45 PM [facility]This is an appended report. These results have been appended to a previously preliminary verified report. Neutrophils Absolute (M)27.3(H)1.5 - 6.6 10^9/L110/16/2024 4:45 PM [facility]:This is an appended report. These results have been appended to a previously preliminary verified report.Lymphocytes Absolute 1.21.0 - 3.5 10^9/L110/16/2024 4:45 PM [facility] Comment:This is an appended report. These results have been appended to a previously preliminary verified report.Monocytes Absolute2.1(H)0.0 - 0.9 10^9/L 08/16/2025 4:45 PM [facility]:This is an appended report. These results have been appended to a previously preliminary verified report.Polychromasia1+08/16/2025 4:45 PM [facility]Comment:This is an appended report. These results have been appended to a previously preliminary verified report.Elliptocytes1+08/16/2025 4:45 PM EST [facility]:This is an appended report. These results have been appended to a previously preliminary verified report. Stomatocytes1+08/16/2025 4:45 PM [facility]Comment: This is an appended report. These results have been appended to a previously preliminary verified report.Differential TypeMANUAL MIFCBDPQVYNK05/20/2025 4:45 PM [facility]Comment:This is an appended report. These results have been appended to a previously preliminary verified report. Specimen (Source)Anatomical Location / LateralityCollection Method / Volume Collection TimeReceived TimeBloodVenous blood / UnknownVenipuncture / Unknown 08/16/2025 3:52 PM EST08/16/2025 3:52 PM EST Narrative Authorizing ProviderResult TypeResult StatusDaviquiana PASCUAL BLOOD ORDERABLESFinal ResultPerforming OrganizationAddressCity/State/ZIP CodePhone Number [facility] [address] [place] [address], * (ABNORMAL) Basic Metabolic Panel (08/16/2025 3:52 PM EST)ComponentValueRef RangeTest MethodAnalysis TimePerformed AtPathologist TawntdzjsRFSUGG285572 - 146 mmol/L110/16/2024 4:17 PM ESTDETWILER MEMORIAL HOSPITALPOTASSIUM 2.6(LL)3.5 - 5.0 mmol/L110/16/2024 4:17 PM [facility]ITALCHLORIDE10398 - 109 mmol/L110/16/2024 4:17 PM ESTDETWILER MEMORIAL HOSPITALCARBON XHAGJJA0091 - 32 mmol/L110/16/2024 4:17 PM ESTDETWILER MEMORIAL HOSPITALANION TJM210 - 15 mmol/L110/16/2024 4:17 PM EST [facility]ITALBLOOD UREA ZLCMYAYU898 - 27 mg/dL08/16/2025 4:17 PM [facility]ITALCREATININE0.700.40 - 1.00 mg/dL 08/16/2025 4:17 PM [facility]ITALComment:METHOD TRACEABLE TO IDMS MWADTQHOQBCENYS421(H)65 - 99 mg/dL08/16/2025 4:17 PM EST [facility]ITALCALCIUM8.58.5 - 10.5 mg/dL08/16/2025 4:17 PM ESTDETWILER MEMORIAL HOSPITALEGFR Non-Race Dependent>90>=60 ml/min/1.73sq.m110/16/2024 4:17 PM [facility] Comment: Reported eGFR is based on the CKD-EPI 2020 equation that does not use a race coefficient. Specimen (Source)Anatomical Location / LateralityCollection Method / Volume Collection TimeReceived TimeBloodVenous blood / UnknownVenipuncture / Unknown 08/16/2025 3:52 PM EST08/16/2025 3:52 PM EST Narrative Authorizing ProviderResult TypeResult StatusPeter Angulo MDLAB BLOOD ORDERABLESFinal ResultPerforming OrganizationAddressCity/State/ZIP CodePhone Number [facility]ENTERLillie [facility] [address] [place] [address], * Crossmatch RBC:Number of Units: 2 (08/11/2025 12:37 AM EST) Only the most recent of3 resultswithin the time period is included. ComponentValueRef RangeTest MethodAnalysis TimePerformed AtPathologist Signature Blood component [id number] BANK - WELLSKYUnit [id number] BANK - WELLSKYUnit ABOOBLOOD BANK - WELLSKYUnit RHPOSBLOOD BANK - [place]LLSKY CrossmatchCompatibleBLOOD BANK - WELLSKYStatus of unitTRANSFUSEDBLOOD BANK - WELLSKYExpiration [id number] BANK - WELLSKYBB Type Ysqhzsp4301VHELO BANK - WELLSKYSpecimen (Source)Anatomical Location / LateralityCollection Method / VolumeCollection TimeReceived TimeBloodVenous blood / Cwmpury4708/11/2025 12:37 AM EST08/04/2025 5:47 AM EST Narrative Authorizing ProviderResult TypeResult StatusAnnita Still MDBLOOD BANK PRODUCT ORDERABLESEdited Result - FinalPerforming OrganizationAddressCity/State/ZIP Code Phone Number [facility] [place] * (ABNORMAL) Comprehensive metabolic panel (08/09/2025 5:32 AM EST) Only the most recent of7 resultswithin the time period is included. ComponentValueRef RangeTest MethodAnalysis TimePerformed AtPathologist Signature IIVUWE821812 - 146 mmol/L110/09/2024 6:26 AM [facility] LABORATORYPOTASSIUM3.3(L)3.5 - 5.0 mmol/L110/09/2024 6:26 AM [facility] SVFVPZWUTWZTIFCBUM01025 - 109 mmol/L110/09/2024 6:26 AM [facility] LABORATORYCARBON BOXVDJQ4265 - 32 mmol/L110/09/2024 6:26 AM [facility] LABORATORYANION QFV994 - 15 mmol/L110/09/2024 6:26 AM [facility] LABORATORYBLOOD UREA MHBSGMHG132 - 27 mg/dL08/09/2025 6:26 AM [facility] LABORATORYCREATININE0.650.40 - 1.00 mg/dL08/09/2025 6:26 AM [facility] LABORATORYComment:METHOD TRACEABLE TO IDPR UWXEUXVZEIXDTNN4017 - 99 mg/dL08/09/2025 6:26 AM [facility] LABORATORYCALCIUM8.1(L)8.5 - 10.5 mg/dL08/09/2025 6:26 AM [facility] LABORATORYTOTAL PROTEIN5.4(L)6.0 - 8.0 g/dL08/09/2025 6:26 AM [facility] LABORATORYALBUMIN3.0(L)3.2 - 5.3 g/dL08/09/2025 6:26 AM [facility] LABORATORYALKALINE QYIXZOPYGVS4674 - 130 U/L110/09/2024 6:26 AM [facility] EGGRCNTLBGASO54<=41 U/L110/09/2024 6:26 AM [facility] LABORATORYALT6<=31 U/L110/09/2024 6:26 AM [facility] LABORATORYBILIRUBIN,TOTAL0.50.3 - 1.2 mg/dL08/09/2025 6:26 AM [facility] LABORATORYEGFR Non-Race Dependent>90>=60 ml/min/1.73sq.m110/09/2024 6:26 AM [facility] LABORATORYComment: Reported eGFR is based on the CKD-EPI 2020 equation that does not use a race coefficient. Specimen (Source)Anatomical Location / LateralityCollection Method / Volume Collection TimeReceived TimeBloodVenous blood / UnknownVenipuncture / Unknown 08/09/2025 5:32 AM EST08/09/2025 5:54 AM EST Narrative Authorizing ProviderResult TypeResult StatusBrittnee Sam MDLAB BLOOD ORDERABLESFinal ResultPerforming OrganizationAddressCity/State/ZIP CodePhone Number [facility] [address] [place] [address], * Type and screen(includes indirect grady) (08/08/2025 5:57 AM EST) Only the most recent of2 resultswithin the time period is included. ComponentValueRef RangeTest MethodAnalysis TimePerformed AtPathologist Signature ABOO110/08/2024 7:52 AM ESTTTH BB - ZBJBTQWZZBwjfwkjt77/12/2025 7:52 AM ESTTTH BB - WELLSKYAntibody KyjdogCizvvguc82/12/2025 7:52 AM ESTTTH BB - WELLSKYSpecimen (Source)Anatomical Location / LateralityCollection Method / VolumeCollection TimeReceived TimeBloodVenous blood / UnknownVenipuncture / Strgnyc1208/08/2025 5:57 AM EST08/08/2025 6:54 AM EST Narrative Authorizing ProviderResult TypeResult StatusRocio Alexander MDBLOOD BANK TEST ORDERABLESEdited Result - FinalPerforming OrganizationAddressCity/State/ZIP Code Phone Number [facility] RAJI MALDONADO [address] [place] [address], * Surgical Pathology (08/07/2025 3:42 PM EST)ComponentValueRef RangeTest Method Analysis TimePerformed AtPathologist SignatureCase ReportSurgical Pathology Report ? Case: [id number] ? Authorizing Provider: ??Dennis Monson MD ?Collected: ? 08/07/2025 1542 ? Ordering Location: ? [facility] ??Received: ?08/07/2025 1647 ? - Surgery ? Pathologist: ? Darryl Alcantara MD ? Specimens: ?? 1) - Uterus, Fallopian Tube, Ovary, UTERUS, CERVIX, BILATERAL TUBES AND OVARIES ? 2) - Pelvis, LEFT POSTERIOR PELVIS BIOPSY ? 08/14/2025 2:47 PM [facility] LABORATORYFinal Diagnosis1. Uterus, fallopian tubes and ovaries, hysterectomy and bilateral salpingo-oophorectomy: ENDOMETRIOID ADENOCARCINOMA of endometrium, grade 2, with deep myometrial invasion. Carcinoma invades lower uterine segment stroma. Positive cervical stroma, uterine serosa (implants), bilateral mesosalpinx and left fallopian tube. Focal lymphovascular invasion. Endometriosis of right fallopian tube serosa. Negative ovaries. Negative parametrial/paracervical margins. 2. Left posterior pelvis, biopsy: Metastatic carcinoma.08/14/2025 2:47 PM [facility] at 1447 ESTGross Description1. Received in [...] 1 minute Total fixation time: 27 hours (18,ns,[id number], m8.1) . 2. Received in formalin labeled ANDERSON, left posterior pelvis biopsy is pink-lambert feathery and friable soft tissue admixed with hemorrhagic material, 2.5 x 2.5 x 1.2 cm in aggregate. The specimen is submitted entirely in cassettes A- C. (3,ns,[id number], m8.1) 08/14/2025 2:47 PM [facility] LABORATORYSynoptic ChecklistENDOMETRIUM ENDOMETRIUM - All Specimens AJCC [...] (no nodes submitted or found)08/14/2025 2:47 PM [facility] LABORATORYEmbedded Qofdoe9608/14/2025 2:47 PM [facility]ORATORYSpecimen (Source)Anatomical Location / LateralityCollection Method / VolumeCollection TimeReceived TimeTissue (Uterus, Fallopian Tube, Ovary)08/07/2025 3:42 PM EST08/07/2025 4:47 PM ESTComment:Pre-op diagnosis: ENDOMETRIAL CANCERTissue specimen (specimen)Pelvic region / Kstzqxn7308/07/2025 3:43 PM EST08/07/2025 4:47 PM ESTComment:Pre-op diagnosis: ENDOMETRIAL CANCER Narrative Authorizing ProviderResult TypeResult StatusAdawild Monson MDPATHOLOGY/CYTOLOGY ORDERABLESFinal ResultPerforming OrganizationAddressCity/State/ZIP CodePhone Number [facility] [address] [place] [address], [place] [phone] * Transfuse RBC:1 Unit (08/07/2025 2:56 PM EST) Only the most recent of3 resultswithin the time period is included. Narrative Authorizing ProviderResult TypeResult StatusAleshira Alexander MDBLOOD TRANSFUSION ORDERABLESFinal Result * Cytology non-gynecologic (08/07/2025 2:44 PM EST)ComponentValueRef RangeTest MethodAnalysis TimePerformed AtPathologist SignatureCase ReportMedical Cytology Report ? Case: [id number] ? Authorizing Provider: ??Dennis Monson MD ?Collected: ? 08/07/2025 1444 ? Ordering Location: ? [facility] ??Received: ?08/07/2025 1501 ? - Surgery ? Pathologist: ? Darryl Alcantara MD ? Specimen: ?Pelvis, Pelvis fluid ? 08/14/2025 2:58 PM [facility]ORATORYFinal DiagnosisPelvic fluid: Positive for Carcinoma, rare cells.08/14/2025 2:58 PM [facility] at 1458 ESTGross DescriptionReceived was 20ml of red fluid unfixed, labeled as Anderson, pelvis . CytoLyt added in lab. Specimen placed in formalin at 17:00 and had a total fixation time of 8 hours. 08/14/2025 2:58 PM [facility]ORATORYEmbedded Images 08/14/2025 2:58 PM [facility]ORATORYSpecimen (Source) Anatomical Location / LateralityCollection Method / VolumeCollection Time Received TimeFluidPelvic region / Kkmuiqc4308/07/2025 2:44 PM EST08/07/2025 3:01 PM ESTComment:Pre-op diagnosis: ENDOMETRIAL CANCER Narrative Authorizing ProviderResult TypeResult StatusAdam Raven Monson MDPATHOLOGY/CYTOLOGY ORDERABLESFinal ResultPerforming OrganizationAddressCity/State/ZIP CodePhone Number [facility] [address] [place] [address], * MI AN ELECTIVE ENDOTRACHEAL AIRWAY (08/07/2025 1:44 PM EST) Narrative Evelin Jackson SRNA - 08/07/2025 1:44 PM EST EDIN Inman 08/07/2025 2:13 PM Airway Patient location during procedure: OR Urgency: Elective Date/Time: 08/07/2025 1:44 PM Airway not difficult IV In Situ: Peripheral General Information and Staff Service Provider: Mahendra Rico MD EXECUTIVE OFFICER: Karime Mann APRN-EXECUTIVE OFFICER Student: EDIN Inman Placed by: ??EDIN Inman [...] used for successful ETT Placement: With Stylet, Esparza and Video Laryngoscopy Cormack-Lehane Classification: Grade I Endotracheal tube insertion site: Oral Dentition Check Pre: See Pre-Evaluaton documentation Post Intubation Trauma? No Visibility: ??Cords Clear Blade: Nallely Blade size: #3 Placement verified by: chest auscultation, capnography and symmetrical chest wall movement ETT size: 7.0 mm Measured from: Lips Secured at (cm): 21 Number of attempts at approach: 1 Authorizing ProviderResult TypeResult StatusJay W Trisha MDANESTHESIA ORDERABLESFinal Result * CT chest with contrast (08/05/2025 12:11 [...] 08/06/2025 7:20 AM Authorizing ProviderResult TypeResult StatusAlexandria Alexandr [facility] ORDERABLESFinal Result * MI AN ELECTIVE ENDOTRACHEAL AIRWAY (08/04/2025 9:48 AM EST) Leonor Cornell APRN-CRNA - 08/04/2025 9:48 AM EST BELLE Ferguson 08/04/2025 10:02 AM Airway Patient location during procedure: OR Urgency: Elective Date/Time: 08/04/2025 9:48 AM Airway not difficult IV In Situ: Peripheral General Information and Staff Service Provider: Franklin Ramos MD EXECUTIVE OFFICER: BELLE Ferguson Placed by: ??BELLE Ferugson Patient Identified, IV Checked, Risks and Benefits [...] and downsized ETT Authorizing ProviderResult TypeResult Cherelle Neff'Brien MDANESTHESIA ORDERABLESFinal Result * ABO Rh Repeat (08/04/2025 8:27 AM EST) Only the most recent of2 resultswithin the time period is included. Specimen (Source)Anatomical Location / LateralityCollection Method / Volume Collection TimeReceived Time08/04/2025 8:27 AM EST Narrative Authorizing ProviderResult TypeResult StatusAnnita Still MDBLOOD BANK TEST ORDERABLESFinal ResultPerforming OrganizationAddressCity/State/ZIP CodePhone Number [facility] * (ABNORMAL) APTT (08/04/2025 5:30 AM EST)ComponentValueRef RangeTest Method Analysis TimePerformed AtPathologist QzkcyzglaCMGX80(L)26 - 37 sec08/04/2025 6:07 AM [facility]ORATORYSpecimen (Source)Anatomical Location / LateralityCollection Method / VolumeCollection TimeReceived Time BloodVenous blood / UnknownVenipuncture / Kxahpji3608/04/2025 5:30 AM EST 08/04/2025 5:42 AM EST Narrative Authorizing ProviderResult TypeResult StatusAnnita PASCUAL BLOOD ORDERABLESFinal ResultPerforming OrganizationAddressCity/State/ZIP CodePhone Number [facility] [address] [place] [address], * Protime & INR (08/04/2025 5:30 AM EST)ComponentValueRef RangeTest Method Analysis TimePerformed AtPathologist NwtrjugynKTCKLJG19.89.8 - 13.2 sec 08/04/2025 6:07 AM [facility] LABORATORYINR1.00.9 - 1.2 08/04/2025 6:07 AM [facility]ATORYSpecimen (Source) Anatomical Location / LateralityCollection Method / VolumeCollection Time Received TimeBloodVenous blood / UnknownVenipuncture / Qczninw7808/04/2025 5:30 AM EST08/04/2025 5:42 AM EST Narrative Authorizing ProviderResult TypeResult StatusKassidnolan Still MDLAB BLOOD ORDERABLESFinal ResultPerforming OrganizationAddressCity/State/ZIP CodePhone Number [facility] [address] [place] [address], [place] [phone] * Fibrinogen (08/04/2025 5:30 AM EST)ComponentValueRef RangeTest MethodAnalysis TimePerformed AtPathologist UsopccfzqGQYRCWYFQX018925 - 480 mg/dL08/04/2025 6:07 AM [facility]ATORYSpecimen (Source)Anatomical Location / LateralityCollection Method / VolumeCollection TimeReceived Time BloodVenous blood / UnknownVenipuncture / Phpqrhb7108/04/2025 5:30 AM EST 08/04/2025 5:42 AM EST Narrative Authorizing ProviderResult TypeResult StatusMicssivelisse PASCUAL BLOOD ORDERABLESFinal ResultPerforming OrganizationAddressCity/State/ZIP CodePhone Number [facility] [address] [place] [address], [place] [phone] * CT abdomen and pelvis with contrast (08/02/2025 7:10 PM EST)Specimen (Source) Anatomical Location / LateralityCollection Method / VolumeCollection Time Received Time Narrative Authorizing ProviderResult TypeResult StatusScanning Provider ExternalIMG CT ORDERABLESFinal Result * Ultrasound duplex abdomen pelvis limited (08/02/2025 6:05 PM EST)Specimen (Source)Anatomical Location / LateralityCollection Method / VolumeCollection TimeReceived Time Narrative Authorizing ProviderResult TypeResult StatusScanning Provider ExternalIMG US ORDERABLESFinal Result from Last 3 Months Additional Health Concerns Active ProblemsNoted DateDiagnosed DateAutogenerated Ukrscie8508/10/2025 Insurance Advance Directives * Full Code (Latest Code Status on File) Date ActivatedDate YsxiekqartsXulkzcak40/8/2025 3:38 AM08/09/2025 7:55 PM Care Teams Team MemberRelationshipSpecialtyStart DateEnd Date Bin Sidhu MD [address] [place] [address] PCP - GeneralFamily Sfrpjzds87/9/25
--- OUTSIDE RECORDS SUMMARY | 2025-08-16 20:22 | XMS_ITS | Encounter Summary ---
Author Organization Navdy s tem Address [id number] [address] [place] [address] Care Team Providers Care Log Haul Chain Feeder Name Role Phone Bin Sidhu MD Primary Care Provider [phone] Encounter Details DateTypeDepartmentCare Team (Latest Contact Info)Xlufeaiqoqc68/11/2025Travel Social History Tobacco UseTypesPacks/DayYears UsedDateSmoking Tobacco: NeverSmokeless Tobacco: NeverAlcohol UseStandard Drinks/WeekCommentsNever0 (1 standard drink = 0.6 oz pure alcohol)PHQ-2AnswerDate RecordedTotal Vpmie48710/04/2024UDIT-CAnswerDate RecordedQ1: How often do you have a [...] ValueDate RecordedSex Assigned at BirthNot on fileLegal IlkVrugyf96/08/2025 12:05 AM ESTGender IdentityNot on fileSexual OrientationNot on filedocumented as of this encounter Plan of Treatment DateTypeDepartmentCare Team (Latest Contact Info)Sqvkogmjwei01/24/2025 11:30 AM ESTHospital Encounter [facility] Surgery [address] [place] [address] Justin Mackey MD [address] [place] [address] 08/20/2025 11:30 AM EST - 08/20/2025 12:30 PM ESTSurgery [facility] Surgery [address] [place] [address] Justin Mackey MD [address] [place] [address] INSERTION PORT A CATH [[id number] (CPT??)]08/21/2025 8:00 AM ESTInfusion [facility] - Medical Oncology [address] [place] [phone] 08/21/2025 11:00 AM ESTOffice Visit [facility] - Medical Oncology [address] [place] [phone] Melinda Coffey PA [address] [place] [address] 09/10/2025 11:00 AM ESTInfusion [facility] - Medical Oncology [facility] [place] [address] 09/10/2025 1:30 PM ESTOffice Visit [facility], A Department of [facility] [address] [place] [phone] Annita Patton, MELT SUPERVISOR-TRIMMING MACHINE OPERATOR [address] [facility] [place] [address] 09/11/2025 8:00 AM ESTInfusion [facility] - Medical Oncology [address] [place] [phone] NamePriorityAssociated DiagnosesDate/TimeINSERTION PORT A CATH needed for chemotherapy 08/20/2025 11:30 AM ESTdocumented as of this encounter Goals GoalPatient Goal TypeAssociated ProblemsRecent ProgressPatient-Stated?Author return home Milagros Escobedo RN Note: Evaluation of progress towards goal: patient plans to return home with family support documented as of this encounter Visit Diagnoses Not on filedocumented in this encounter Additional Health Concerns AssessmentNoted TimePHQ-9 Depression Total Score: 3:45 PM EST documented as of this encounter Care Teams Team MemberRelationshipSpecialtyStart DateEnd Date Bin Sidhu MD [address] [place] [address] PCP - GeneralFamily Drvhiljr25/9/25documented as of this encounter
--- OUTSIDE RECORDS SUMMARY | 2025-08-16 20:22 | XMS_ITS | Encounter Summary ---
Author Organization [employer] s tem Address [id number] [address] [place] [address] Care Team Providers Care Police Guard Name Role Phone Unavailable Primary Care Provider Unavailabl e Encounter Details DateTypeDepartmentCare Team (Latest Contact Info)Jlixgjmjcfa90/08/2025Travel Social History Tobacco UseTypesPacks/DayYears UsedDateSmoking Tobacco: NeverSmokeless Tobacco: NeverAlcohol UseStandard Drinks/WeekCommentsNever0 (1 standard drink = 0.6 oz pure alcohol)PHQ-2AnswerDate RecordedTotal Iakho92710/04/2024UDIT-CAnswerDate RecordedQ1: How often do you have a [...] ValueDate RecordedSex Assigned at BirthNot on fileLegal PozBqxorp70/08/2025 12:05 AM ESTGender IdentityNot on fileSexual OrientationNot on filedocumented as of this encounter Functional Status * AUDIT-C ScoreAnswerDate of ZyngwlpzihObswxl104/08/2025 3:44 PM Denice Schultz RN * QuestionAnswerDate [...] one occasion?Never08/04/2025 3:44 PM Denice Schultz RN * QuestionAnswerDate of AssessmentAuthorFunctional HutdoeCzxzerhdavs23/08/2025 3:42 PM Denice Schultz RN documented as of this encounter Plan of Treatment DateTypeDepartmentCare Team (Latest Contact Info)Spstqozwqib16/24/2025 11:30 AM ESTHospital Encounter [facility] - Surgery [address] [place] [address] Justin Mackey MD [address] [place] [phone] 08/20/2025 11:30 AM EST - 08/20/2025 12:30 PM ESTSurgery [facility] - Surgery [address] [place] [phone] Justin Mackey MD [address] [place] [phone] INSERTION PORT A CATH [[id number] (CPT??)]08/21/2025 8:00 AM ESTInfusion [facility]ola Ellington [facility] - Medical Oncology [address] [place] [address], [place] [phone] 08/21/2025 11:00 AM ESTOffice Visit [facility] - Medical Oncology [address] [place] [address], [place] [phone] Melinda Coffey PA [address] [place] [address] 09/10/2025 11:00 AM ESTInfusion [facility] - Medical Oncology [address] [place] [address], [place] [phone] 09/10/2025 1:30 PM ESTOffice Visit [facility], A Department of [facility] [address] [place] [address] [address] [place] [phone] Annita Patton, DATA MIGRATION LEAD-FRUIT SHIPPER [address] [facility] [place] [address] 09/11/2025 8:00 AM ESTInfusion [facility] - Medical Oncology [address] [place] [phone] NamePriorityAssociated DiagnosesDate/TimeINSERTION PORT A CATH needed for chemotherapy 08/20/2025 11:30 AM ESTdocumented as of this encounter Visit Diagnoses Not on filedocumented in this encounter Additional Health Concerns AssessmentNoted TimePHQ-9 Depression Total Score: 3:45 PM EST documented as of this encounter
--- OUTSIDE RECORDS SUMMARY | 2025-08-16 20:22 | XMS_ITS ---
Author Organization QUIQ tem Address [facility] [id number] [address] [place] [address] Care Team Providers Care Business Specialist Name Role Phone Bin Sidhu MD Primary Care Provider [phone] Active Problems ProblemNoted DateDiagnosed DateEndometrial cancer determined by uterine biopsy 08/08/2025Pelvic mass08/04/2025 Current Treatment and Therapy Plans Adult oncology/infusion center flush orders* Plan Start Date:08/08/2025 Plan Provider:RE Fay Linked Problems Endometrial cancer determine d by uterine biopsy ([facility]) Treatment Medications No medications scheduled. Oncology hydration and supportive care* Plan Start Date:08/08/2025 Plan Provider:RE Fay Linked Problems Endometrial cancer determine d by uterine biopsy ([facility]) Treatment Medications No medications scheduled. Oncology standing electrolyte replacement* Plan Start Date:08/08/2025 Plan Provider:RE Fay Linked Problems Endometrial cancer determine d by uterine biopsy ([facility]) Treatment Medications No medications scheduled. OP ADVANCED ENDOMETRIAL PEMBROLIZUMAB / PACLItaxel / CARBOplatin X 6 CYCLES THEN PEMBROLIZUMAB ALONE* Plan Start Date:08/07/2025 Plan Provider:Rocio Alexander MD Linked Problems Endometrial cancer determine d by uterine biopsy ([facility]) Treatment MedicationsCurrent Day (Day 1, Cycle 1 - Planned for 08/21/2025)Next Day (Day 1, Cycle 2 - Planned for 09/11/2025)* * CARBOplatin (PARAPLATIN) chemo IVPB (by AUC) piggyback * PACLItaxel (TAXOL) chemo IVPB piggyback * pembrolizumab (KEYTRUDA) * pembrolizumab (KEYTRUDA) chemo IVPB piggyback * * CARBOplatin (PARAPLATIN) 590 mg in sodium chloride 0.9 % 250 mL chemo IVPB * PACLitaxeL (TAXOL) 325.8 mg in sodium chloride 0.9 % (non-pvc) 500 mL chemo IVPB * pembrolizumab (KEYTRUDA) 200 mg in sodium chloride 0.9 % 100 mL chemo IVPB * * CARBOplatin (PARAPLATIN) 590 mg in sodium chloride 0.9 % 250 mL chemo IVPB * PACLitaxeL (TAXOL) 325.8 mg in sodium chloride 0.9 % (non-pvc) 500 mL chemo IVPB * pembrolizumab (KEYTRUDA) 200 mg in sodium chloride 0.9 % 100 mL chemo IVPB Past Treatment and Therapy Plans No past plan information found. Resolved Problems ProblemNoted DateDiagnosed DateResolved DateVaginal drfuylan74 Vagina fegedoih21
--- OUTSIDE RECORDS SUMMARY | 2025-08-16 20:22 | XMS_ITS | Encounter Summary ---
Author Organization [facility] tem Address [id number] [address] [place] [address] Care Team Providers Care Acct Exec Name Role Phone Bin Sidhu MD Primary Care Provider [phone] Reason for Visit * ReasonOnset UwynAotnfikoIiqphyscy72/10/2025 Encounter Details DateTypeDepartmentCare Team (Latest Contact Info)Eqstnmemaow03/10/2025Telephone [facility] Gynecology Oncology, A Department of [address] [place] [address] Rocio Alexander MD [address] [place] [address], [address] [place] [address] Procedure Social History Tobacco UseTypesPacks/DayYears UsedDateSmoking Tobacco: NeverSmokeless Tobacco: NeverAlcohol UseStandard Drinks/WeekCommentsNever0 (1 standard drink = 0.6 oz pure alcohol)PHQ-2AnswerDate RecordedTotal Olynz65710/04/2024UDIT-CAnswerDate RecordedQ1: How often do you have a [...] ValueDate RecordedSex Assigned at BirthNot on fileLegal UmyUhudsd88/08/2025 12:05 AM ESTGender IdentityNot on fileSexual OrientationNot on filedocumented as of this encounter Miscellaneous Notes * Telephone Encounter - Emelia Magallanes - 08/06/2025 11:58 AM EST ----- Message from Rocio Alexander MD sent at 08/05/2025 3:13 PM EST ----- I did a D&C for this earnestine lady on Wednesday for likely new endometrial cancer. I am having hercome see me in the office on Wednesday for treatment planning, but looking at her imaging I would love to get her added on for RA-TLH/BSO/SLND on Wednesday (to follow myself at [facility] if able or at [facility] cases if that isn't possible). She is having significant vaginal bleeding (bled to a Hgb of 5.8 this weekend) and I would love to get her on as soon as possible. Thanks for your help! AC * Telephone Encounter - Emelia Elpidio - 08/06/2025 11:58 AM EST Office Supervisor notes no availability time at [facility] or on 08/08/15, Catherine was notified and she states Ermiasis asw/asuw tactical air controller and see if he can add for Wednesday08/07/25, ok per Ermias, surgery scheduled as follows; [facility] Ermias Wednesday08/07/25@12:30pm RATLH/BSO/SLND APT-PT CURRENTLY INPATIENT post op-08/17/25@3:00pm. documented in this encounter Plan of Treatment DateTypeDepartmentCare Team (Latest Contact Info)Aiqdvoiswpx36/24/2025 11:30 AM ESTHospital Encounter [facility] - Surgery [address] [place] [address] Justin Mackey MD [address] [place] [phone] 08/20/2025 11:30 AM EST - 08/20/2025 12:30 PM ESTSurgery [facility] - Surgery [address] [place] [address] Justin Mackey MD [address] [place] [phone] INSERTION PORT A CATH [[id number] (CPT??)]08/21/2025 8:00 AM ESTInfusion [facility]ola [facility]ington [facility] - Medical Oncology [address] [place] [phone] 08/21/2025 11:00 AM ESTOffice Visit [facility] - Medical Oncology [address] [place] [phone] Melinda Coffey PA [address] [place] [address] 09/10/2025 11:00 AM ESTInfusion [facility]ington [facility] - Medical Oncology [facility] [place] [phone] 09/10/2025 1:30 PM ESTOffice Visit [facility], A Department of [facility] [address] [place] [phone] Annita Patton, PM HEAD COOK-POWERHOUSE TENDER [address] [place] [address] 09/11/2025 8:00 AM ESTInfusion [facility]ola [facility]ington [facility] - Medical Oncology [address] [place] [phone] NamePriorityAssociated DiagnosesDate/TimeINSERTION PORT A CATH needed [...] MemberRelationshipSpecialtyStart DateEnd Date Bin Sidhu MD [address] [place], [place] [id number] PCP - GeneralFamily Enflpppv55/9/25documented as of this encounter
--- OUTSIDE RECORDS SUMMARY | 2025-08-16 20:22 | XMS_ITS | Encounter Summary ---
Author Organization [facility] tem Address [id number] [address] [place] [address] Care Team Providers Care Candy Dipper Hand Name Role Phone Bin Sidhu MD Primary Care Provider [phone] Reason for Referral * Diagnostic Imaging (Emergency) - Pending ReviewSpecialtyDiagnoses / Procedures Referred By ContactReferred To ContactRadiology Diagnoses Endometrial cancer determined by uterine biopsy ([facility]) Procedures [place] [address] [place] [address], [address] [place] [address] Phone: tel: fax: Referral IDStatusReasonStart DateExpiration DateVisits RequestedVisits [id number] [id number]/ * Consultation (Urgent) - Pending ReviewSpecialtyDiagnoses / ProceduresReferred By ContactReferred To ContactGeneral Surgery Diagnoses Endometrial cancer determined by uterine biopsy ([facility]) [place] [address] [place] [address] [address] [place] [address] Phone: tel: fax: [facility] Physicians General Surgery [address] [place] [address] [place] [address] Phone: tel: fax: Referral Chapin DateExpiration DateVisits RequestedVisits [id number] Review Specialty Services Required Encounter Details DateTypeDepartmentCare Team (Latest Contact Info)Jbwodzugosu57/12/2025Orders Only [facility], A Department of [facility] [address] [place] [phone] Milagros Machado RN Endometrial cancer determined by uterine biopsy ([facility]) (Primary Dx) Social History Tobacco UseTypesPacks/DayYears UsedDateSmoking Tobacco: NeverSmokeless Tobacco: NeverAlcohol UseStandard Drinks/WeekCommentsNever0 (1 standard drink = 0.6 oz pure alcohol)PHQ-2AnswerDate RecordedTotal Oneut21010/04/2024UDIT-CAnswerDate RecordedQ1: How often do you have a [...] ValueDate RecordedSex Assigned at BirthNot on fileLegal PpgBfymoe88/08/2025 12:05 AM ESTGender IdentityNot on fileSexual OrientationNot on filedocumented as of this encounter Mental Status * QuestionAnswerEntry DateAuthorOverall Cognitive NkkurdQZR55/12/2025 9:18 AM ESTFertig, Toya A, OT/L documented in this encounter Plan of Treatment DateTypeDepartmentCare Team (Latest Contact Info)Cehukslvzrr28/24/2025 11:30 AM ESTHospital Encounter [facility] - Surgery [address] [facility] [place] [phone] Justin Mackey MD [address] [place] [address] 08/20/2025 11:30 AM EST - 08/20/2025 12:30 PM ESTSurgery [facility] - Surgery [address] [place] [address] Justin aMckey MD [address] [place] [address] INSERTION PORT A CATH [[id number] (CPT??)]08/21/2025 8:00 AM ESTInfusion [facility] - Medical Oncology [address] [place] [phone] 08/21/2025 11:00 AM ESTOffice Visit [facility] - Medical Oncology [address] [place] [phone] Melinda Coffey PA [address] [facility] [place] [address] 09/10/2025 11:00 AM ESTInfusion [facility] - Medical Oncology [address] [place] [place] [phone] 09/10/2025 1:30 PM ESTOffice Visit [facility], A Department of [address] [place] [phone] Annita Patton, POSITION DESCRIPTION MANAGER-PARLIAMENTARY LIBRARIAN [address] [place] [address], [address] [place] [address] 09/11/2025 8:00 AM ESTInfusion [facility] - Medical Oncology [address] [place] [address] NameTypePriorityAssociated DiagnosesOrder SchedulePET CT skull to thighImaging STAT Endometrial cancer determined by uterine biopsy ([facility]) Expected: 08/08/2025, Expires: 08/08/2026NamePriorityAssociated Diagnoses Date/TimeINSERTION PORT A CATH needed for chemotherapy 08/20/2025 11:30 AM ESTNameTypePriorityAssociated DiagnosesOrder Schedule [facility] [place], [place]Outpatient Referral Routine Endometrial cancer determined by uterine biopsy ([facility]) 1 Occurrences starting 08/08/2025 until 08/08/2026documented as of this encounter Goals GoalPatient Goal TypeAssociated ProblemsRecent ProgressPatient-Stated?Author return home Milagros Escobedo RN Note: Evaluation of progress towards goal: patient plans to return home with family support documented as of this encounter Visit Diagnoses Diagnosis Endometrial cancer determined by uterine biopsy ([facility])- Primary documented in this encounter Additional Health Concerns AssessmentNoted TimePHQ-9 Depression Total Score: 3:45 PM EST documented as of this encounter Care Teams Team MemberRelationshipSpecialtyStart DateEnd Date Bin Sidhu MD [address] [place], [place] [id number] PCP - GeneralFamily Enextrec88/9/25documented as of this encounter
--- OUTSIDE RECORDS SUMMARY | 2025-08-16 20:22 | XMS_ITS | Encounter Summary ---
Author Organization [employer] tem Address [id number] [address] [place] [address] Care Team Providers Care Diversional Therapist'S Assistant Name Role Phone Bin Sidhu MD Primary Care Provider [phone] Encounter Details DateTypeDepartmentCare Team (Latest Contact Info)Aqvoylmwall54/20/2025Travel Social History Tobacco UseTypesPacks/DayYears UsedDateSmoking Tobacco: NeverSmokeless Tobacco: NeverAlcohol UseStandard Drinks/WeekCommentsNever0 (1 standard drink = 0.6 oz pure alcohol)PHQ-2AnswerDate RecordedTotal Fsmta92910/04/2024UDIT-CAnswerDate RecordedQ1: How often do you have a [...] ValueDate RecordedSex Assigned at BirthNot on fileLegal LfqJwtqoi20/08/2025 12:05 AM ESTGender IdentityNot on fileSexual OrientationNot on filedocumented as of this encounter Plan of Treatment DateTypeDepartmentCare Team (Latest Contact Info)Fanwnlwqvcv43/24/2025 11:30 AM ESTHospital Encounter [facility] Surgery [address] [place] [address] Justin Mackey MD [address] [place] [address] 08/20/2025 11:30 AM EST - 08/20/2025 12:30 PM ESTSurgery [facility] Surgery [address] [place] [address] Justin Mackey MD [address] [place] [address] INSERTION PORT A CATH [[id number] (CPT??)]08/21/2025 8:00 AM ESTInfusion [facility] - Medical Oncology [address] [place] [phone] 08/21/2025 11:00 AM ESTOffice Visit [facility] - Medical Oncology [address] [place] [phone] Melinda Coffey PA [address] [facility] [place] [address] 09/10/2025 11:00 AM ESTInfusion [facility] - Medical Oncology [facility] [place] [address] 09/10/2025 1:30 PM ESTOffice Visit [facility], A Department of [facility] [address] [place] [phone] Annita Patton, DETASSELER-CHEMIST WATER PURIFICATION [address] [facility], [address] [place] [address] 09/11/2025 8:00 AM ESTInfusion [facility] - Medical Oncology [address] [place] [phone] NamePriorityAssociated DiagnosesDate/TimeINSERTION PORT A CATH needed for chemotherapy 08/20/2025 11:30 AM ESTdocumented as of this encounter Goals GoalPatient Goal TypeAssociated ProblemsRecent ProgressPatient-Stated?Author return home Milagros Escobedo RN Note: Evaluation of progress towards goal: patient plans to return home with family support Autogenerated Goal Care PlanAutogenerated ProblemNoPotts, Elizabethdocumented as of this encounter Visit Diagnoses Not on filedocumented in this encounter Additional Health Concerns Active ProblemsNoted DateDiagnosed DateAutogenerated Qmxwxvb09/14/2025Assessment Noted TimePHQ-9 Depression Total Score: 3:45 PM ESTdocumented as of this encounter Care Teams Team MemberRelationshipSpecialtyStart DateEnd Date Bin Sidhu MD [address] [place] [address] PCP - GeneralFamily Livytray45/9/25documented as of this encounter
--- OUTSIDE RECORDS SUMMARY | 2025-08-16 20:22 | XMS_ITS | Encounter Summary ---
Author Organization [facility] tem Address [id number] [address] [place] [address] Care Team Providers Care Workforce Management Manager Name Role Phone Bin Sidhu MD Primary Care Provider [phone] Encounter Details DateTypeDepartmentCare Team (Latest Contact Info)Hiyvkumomhy19/09/2025Orders Only [facility] External Film Storage [facility] [place] [address] Transcribe, Orders Support User Pain (Primary Dx) Social History Tobacco UseTypesPacks/DayYears UsedDateSmoking Tobacco: NeverSmokeless Tobacco: NeverAlcohol UseStandard Drinks/WeekCommentsNever0 (1 standard drink = 0.6 oz pure alcohol)PHQ-2AnswerDate RecordedTotal Bepzx03710/04/2024UDIT-CAnswerDate RecordedQ1: How often do you have a [...] ValueDate RecordedSex Assigned at BirthNot on fileLegal IblGxtuep08/08/2025 12:05 AM ESTGender IdentityNot on fileSexual OrientationNot on filedocumented as of this encounter Functional Status documented as of this encounter Mental Status * QuestionAnswerEntry DateAuthorOverall Cognitive KwuubsBBI29/12/2025 9:18 AM ESTToya Ortiz A, OT/L documented in this encounter Plan of Treatment DateTypeDepartmentCare Team (Latest Contact Info)Ftlvsgfkplh21/24/2025 11:30 AM ESTHospital Encounter [facility] - Surgery [address] [place] [address] Justin Mackey MD [address] [place] [address] 08/20/2025 11:30 AM EST - 08/20/2025 12:30 PM ESTSurgery [facility] - Surgery [address] [place] [address] Justin Mackey MD [address] [place] [address] INSERTION PORT A CATH [[id number] (CPT??)]08/21/2025 8:00 AM ESTInfusion [facility] - Medical Oncology [address] [place] [address], [place] [phone] 08/21/2025 11:00 AM ESTOffice Visit [facility] - Medical Oncology [address] [place] [address], [place] [phone] Melinda Coffey PA [address] [facility] [address] [place] [address] 09/10/2025 11:00 AM ESTInfusion [facility] - Medical Oncology [address] [place] [address], [place] [address] 09/10/2025 1:30 PM ESTOffice Visit [facility], A Department of [address] [place] [phone] Annita Patton, CHIEF VENDOR QUALITY-SYSTEMS INTEGRATION MANAGER [address] [place] [address], [address] [place] [address] 09/11/2025 8:00 AM ESTInfusion [facility] - Medical Oncology [address] [place] [address], [place] [phone] NamePriorityAssociated DiagnosesDate/TimeINSERTION PORT A CATH needed for chemotherapy 08/20/2025 11:30 AM ESTdocumented as of this encounter Goals GoalPatient Goal TypeAssociated ProblemsRecent ProgressPatient-Stated?Author return home Milagros Escobedo RN Note: Evaluation of progress towards goal: patient plans to return home with family support documented as of this encounter Results * CT abdomen and [...] documented in this encounter Visit Diagnoses Diagnosis Pain- Primary Generalized pain documented in this encounter Additional Health Concerns AssessmentNoted TimePHQ-9 Depression Total Score: 3:45 PM EST documented as of this encounter Care Teams Team MemberRelationshipSpecialtyStart DateEnd Date Bin Sidhu MD [address] [place] [phone] PCP - GeneralFamily Uvjtbloq81/9/25documented as of this encounter
--- OUTSIDE RECORDS SUMMARY | 2025-08-16 20:23 | XMS_ITS | Encounter Summary ---
Author Organization [facility] tem Address [id number] [address] [place] [address] Care Team Providers Care Coordinate Measuring Machine Technician Name Role Phone Bin Sidhu MD Primary Care Provider [phone] Encounter Details DateTypeDepartmentCare Team (Latest Contact Info)Fvzkkqybwaw37/18/2025Telephone [facility] Oncology, A Department of [facility] [address] [facility] [address] [place] [address] Christi Tsang, ERASMO Social History Tobacco UseTypesPacks/DayYears UsedDateSmoking Tobacco: NeverSmokeless Tobacco: NeverAlcohol UseStandard Drinks/WeekCommentsNever0 (1 standard drink = 0.6 oz pure alcohol)PHQ-2AnswerDate RecordedTotal Zteqa26810/04/2024UDIT-CAnswerDate RecordedQ1: How often do you have a [...] ValueDate RecordedSex Assigned at BirthNot on fileLegal HghTyekkq59/08/2025 12:05 AM ESTGender IdentityNot on fileSexual OrientationNot on filedocumented as of this encounter Miscellaneous Notes * Telephone Encounter - Christi Tsang CMA - 08/14/2025 3:55 PM EST Moon, from [facility], called regarding wheelchair order that was received today. Moon stated that patient needs to be seen in person with physical exam completed prior to filling orderfor the wheelchair; telephone encounters are not acceptable. The office note to be faxed with wheelchair order must state / has to rule out need for cane or walker; patient has to be able to propel the wheelchair either by themselves or with caregiver assistance. Airveyor Operator to relay this information to the appropriate staff member(s) for further review. * Telephone Encounter - RE Fay - 08/14/2025 3:55 PM EST Yes we can put that eval documentation in our next progress note documented in this encounter Plan of Treatment DateTypeDepartmentCare Team (Latest Contact Info)Apypxljmdya62/24/2025 11:30 AM ESTHospital Encounter [facility] - Surgery [address] [place] [phone] Justin Mackey MD [address] [place] [phone] 08/20/2025 11:30 AM EST - 08/20/2025 12:30 PM ESTSurgery [facility] - Surgery [address] [place] [address] Justin Mackey MD [address] [place] [phone] INSERTION PORT A CATH [[id number] (CPT??)]08/21/2025 8:00 AM ESTInfusion [facility]ola [facility]ington [facility] - Medical Oncology [address] [place] [phone] 08/21/2025 11:00 AM ESTOffice Visit [facility]ola Ellington [facility] - Medical Oncology [address] [place] [phone] Melinda Coffey, RE [address] [facility] [address] [place] [address] 09/10/2025 11:00 AM ESTInfusion [facility] - Medical Oncology [address] [place] [phone] 09/10/2025 1:30 PM ESTOffice Visit [facility], A Department of [place] [address] [place] [phone] Annita Patton, PLANT MAINTENANCE WORKER-NUMBERER AND WIRER [address] [facility], [address] [place] [address] 09/11/2025 8:00 AM ESTInfusion [facility] - Medical Oncology [address] [place] [phone] NamePriorityAssociated DiagnosesDate/TimeINSERTION PORT A CATH needed for [...] Additional Health Concerns Active ProblemsNoted DateDiagnosed DateAutogenerated Ybjkytz63/14/2025Assessment Noted TimePHQ-9 Depression Total Score: 3:45 PM ESTdocumented as of this encounter Care Teams Team MemberRelationshipSpecialtyStart DateEnd Date Bin Sidhu MD [address] [place] [address] PCP - GeneralFamily Cjimjsqv29/9/25documented as of this encounter
--- OUTSIDE RECORDS SUMMARY | 2025-08-16 20:23 | XMS_ITS | Clinical Summary ---
Author Organization [facility] Address [address] [place] [address] Care Team Providers Care Account Manager Employee Benefits Name Role Phone Unavailable Primary Care Provider Unavailabl e Social History Tobacco UseTypesPacks/DayYears UsedDateSmoking Tobacco: Never Assessed CommentsUnknownSex and Gender InformationValueDate RecordedSex Assigned at Not on fileLegal KfvHpeqqk60/15/2023 11:23 PM EDTGender IdentityNot on file Sexual OrientationNot on file Last Filed Vital Signs Vital SignReadingTime TakenCommentsBlood Pressure--Pulse--Temperature-- Respiratory Rate--Oxygen Saturation--Inhaled Oxygen Concentration--Vrmnwo09.9 kg (143 lb)09/29/2021 12:00 PM YHPFbhizl593.5 cm (5' 2 )09/29/2021 12:00 PM ESTBody Mass Index26.16009/29/2021 12:00 PM EST Plan of Treatment [place] [address]
--- OUTSIDE RECORDS SUMMARY | 2025-08-16 20:23 | XMS_ITS | Encounter Summary ---
Author Organization [employer] [facility] tem Address [facility] [address] [place] [address] Care Team Providers Care Manufacturing Management Associate Name Role Phone Bin Sidhu MD Primary Care Provider [phone] Encounter Details DateTypeDepartmentCare Team (Latest Contact Info)Qlnoalhbfvk54/18/2025Orders Only [facility] - Medical Oncology [address] [place] [address] Melinda Coffey PA [address] [place] [address] Post-operative nausea and vomiting (Primary Dx); Pelvic mass; Endometrial cancer ([facility]) Social History Tobacco UseTypesPacks/DayYears UsedDateSmoking Tobacco: NeverSmokeless Tobacco: NeverAlcohol UseStandard Drinks/WeekCommentsNever0 (1 standard drink = 0.6 oz pure alcohol)PHQ-2AnswerDate RecordedTotal Dcsil23010/04/2024UDIT-CAnswerDate RecordedQ1: How often do you have a [...] ValueDate RecordedSex Assigned at BirthNot on fileLegal FqeVvnbzr76/08/2025 12:05 AM ESTGender IdentityNot on fileSexual OrientationNot on filedocumented as of this encounter Plan of Treatment DateTypeDepartmentCare Team (Latest Contact Info)Htflujsvbxw53/24/2025 11:30 AM ESTHospital Encounter [facility] Surgery [address] [place] [address] Justin Mackey MD [address] [place] [address] 08/20/2025 11:30 AM EST - 08/20/2025 12:30 PM ESTSurgery [facility] Surgery [address] [place] [address] Justin Mackey MD [address] [place] [address] INSERTION PORT A CATH [[id number] (CPT??)]08/21/2025 8:00 AM ESTInfusion [facility]ola [facility] - Medical Oncology [address] [place] [address], [place] [address] 08/21/2025 11:00 AM ESTOffice Visit [facility] - Medical Oncology [address] [place] [address], [place] [address] Melinda Coffey PA [address] [facility] [address] [place] [address] 09/10/2025 11:00 AM ESTInfusion [facility] - Medical Oncology [address] [place] [address], [place] [address] 09/10/2025 1:30 PM ESTOffice Visit [facility] Gy[facility]cology Oncology, A Department of [address] [place] [phone] Annita Patton, GEOTHERMAL POWERPLANT MECHANIC-POTATO CHIP SACKING MACHINE OPERATOR [address] [facility], [address] [place] [address] 09/11/2025 8:00 AM ESTInfusion [facility] - Medical Oncology [address] [place] [phone] NamePriorityAssociated DiagnosesDate/TimeINSERTION PORT A CATH needed for chemotherapy 08/20/2025 11:30 AM ESTdocumented as of this encounter Goals GoalPatient Goal TypeAssociated ProblemsRecent ProgressPatient-Stated?Author return home Milagros Escobedo, RN Note: Evaluation of progress towards goal: patient plans to return home with family support Autogenerated Goal Care PlanAutogenerated ProblemNoPotts, Elizabethdocumented as of this encounter Visit Diagnoses Diagnosis Post-operative nausea and vomiting- Primary Nausea with vomiting Pelvic mass Abdominal or pelvic swelling, mass or lump, unspecified site Endometrial cancer ([facility]) Malignant neoplasm of corpus uteri, except isthmus documented in this encounter Additional Health Concerns Active ProblemsNoted DateDiagnosed DateAutogenerated Yvnelau66/14/2025Assessment Noted TimePHQ-9 Depression Total Score: 3:45 PM ESTdocumented as of this encounter Care Teams Team MemberRelationshipSpecialtyStart DateEnd Date Bin Sidhu MD [address] [place] [address] PCP - GeneralFamily Iwatwwwn20/9/25documented as of this encounter
--- OUTSIDE RECORDS SUMMARY | 2025-08-16 20:23 | XMS_ITS | Encounter Summary ---
Author Organization [facility] Address [id number] [address] [place] [address] Care Team Providers Care Rehabilitation Director Name Role Phone Bin Sidhu MD Primary Care Provider [phone] Encounter Details DateTypeDepartmentCare Team (Latest Contact Info)Oxkehpbapxf76/19/2025Telephone [facility]cology, A Department of [facility] [address] [facility] [address] [place] [address] Milagors Machado RN Social History Tobacco UseTypesPacks/DayYears UsedDateSmoking Tobacco: NeverSmokeless Tobacco: NeverAlcohol UseStandard Drinks/WeekCommentsNever0 (1 standard drink = 0.6 oz pure alcohol)PHQ-2AnswerDate RecordedTotal Xlmne44710/04/2024UDIT-CAnswerDate RecordedQ1: How often do you have a [...] ValueDate RecordedSex Assigned at BirthNot on fileLegal LogLknhgf46/08/2025 12:05 AM ESTGender IdentityNot on fileSexual OrientationNot on filedocumented as of this encounter Miscellaneous Notes * Telephone Encounter - Milagros Machado RN - 08/15/2025 4:04 PM EST Patient contacted office stating PET CT is scheduled for 08/28. Patient also stated that the RN she scheduled PET CT with advised her to try metamucil for her diarrhea. Retread Mold Operator advised patient that metamucil is usually used for constipation but has been known to help with diarrhea as well and that she could try it it if she wanted to. Patient verbalized her understanding. documented in this encounter Plan of Treatment DateTypeDepartmentCare Team (Latest Contact Info)Vkdklxdhabc03/24/2025 11:30 AM ESTHospital Encounter [facility] - Surgery [address] [place] [address] Justin Mackey MD [address] [place] [phone] 08/20/2025 11:30 AM EST - 08/20/2025 12:30 PM ESTSurgery [facility] - Surgery [address] [place] [address] Justin Mackey MD [address] [place] [address] INSERTION PORT A CATH [[id number] (CPT??)]08/21/2025 8:00 AM ESTInfusion Paola Ellington [facility] - Medical Oncology [address] [place] [phone] 08/21/2025 11:00 AM ESTOffice Visit Paola Ellington [facility] - Medical Oncology [address] [place] [phone] Melinda Coffey PA [address] [facility] [address] [place] [address] 09/10/2025 11:00 AM ESTInfusion Paola Ellington [facility] - Medical Oncology [address] [place] [phone] 09/10/2025 1:30 PM ESTOffice Visit [facility] Oncology, A Department of [address] [place] [phone] Annita Patton, TOOL RADIAL DRILL PRESS SET UP OPERATOR-DRUG REGULATORY AFFAIRS SPECIALIST [address] [facility], [address] [place], [place] [phone] 09/11/2025 8:00 AM ESTInfusion Paola Ell[facility] - Medical Oncology [address] [place] [phone] NamePriorityAssociated DiagnosesDate/TimeINSERTION PORT A CATH needed for [...] Additional Health Concerns Active ProblemsNoted DateDiagnosed DateAutogenerated Slrbcut5508/10/2025ssessment Noted TimePHQ-9 Depression Total Score: 3:45 PM ESTdocumented as of this encounter Care Teams Team MemberRelationshipSpecialtyStart DateEnd Date Bin Sidhu MD [address] [place] [address] PCP - GeneralFamily Bhwnduoy25/9/25documented as of this encounter
--- OUTSIDE RECORDS SUMMARY | 2025-08-16 20:23 | XMS_ITS | Encounter Summary ---
Author Organization [facility] tem Address [id number] [address] [place] [address] Care Team Providers Care Project Manager Industrial Name Role Phone Bin Sidhu MD Primary Care Provider [phone] Reason for Referral * Consultation (Routine) - Pending ReviewSpecialtyDiagnoses / ProceduresReferred By ContactReferred To Contact Diagnoses Endometrial cancer determined by uterine biopsy [place] Melinda Coffey PA [address] [place] [address] Phone: tel: fax: Referral IDStatusReasonStart DateExpiration DateVisits RequestedVisits [id number] Review Service Not Available In-House Encounter Details DateTypeDepartmentCare Team (Latest Contact Info)Yrsdrndyesb39/18/2025Orders Only [facility] Gynecology Oncology, A Department of [facility] [address] [place] [address] Milagros Machado RN Endometrial cancer determined by uterine biopsy ([facility]) (Primary Dx) Social History Tobacco UseTypesPacks/DayYears UsedDateSmoking Tobacco: NeverSmokeless Tobacco: NeverAlcohol UseStandard Drinks/WeekCommentsNever0 (1 standard drink = 0.6 oz pure alcohol)PHQ-2AnswerDate RecordedTotal Ncmkb45110/04/2024UDIT-CAnswerDate RecordedQ1: How often do you have a [...] ValueDate RecordedSex Assigned at BirthNot on fileLegal WjaBfiwls64/08/2025 12:05 AM ESTGender IdentityNot on fileSexual OrientationNot on filedocumented as of this encounter Progress Notes * Milagros Machado RN - 08/14/2025 12:12 PM EST Palliative care order, face sheet, and progress notes faxed to [facility]. Order for wheelchair, face sheet, and progress note faxed to [facility] in [place]. documented in this encounter Plan of Treatment DateTypeDepartmentCare Team (Latest Contact Info)Djcdzequskv60/24/2025 11:30 AM ESTHospital Encounter [facility] Surgery [address] [facility] [phone] Justin Mackey MD [address] [place] [phone] 08/20/2025 11:30 AM EST - 08/20/2025 12:30 PM ESTSurgery [facility] [address] [place] [phone] Justin Mackey MD [address] [place] [phone] INSERTION PORT A CATH [[id number] (CPT??)]08/21/2025 8:00 AM ESTInfusion Pa[facility] - Medical Oncology [address] [place] [phone] 08/21/2025 11:00 AM ESTOffice Visit [facility] - Medical Oncology [address] [place] [phone] Melinda Coffey PA [address] [place] [address] 09/10/2025 11:00 AM ESTInfusion [facility] - Medical Oncology [address] [place] [phone] 09/10/2025 1:30 PM ESTOffice Visit [facility], A Department of [place] [address] [place] [phone] Annita Patton, TEACHER CCLC-DISTRIBUTION OPERATIONS MANAGER [address] [facility], [address] [place] [address] 09/11/2025 8:00 AM ESTInfusion [facility]ola [facility] - Medical Oncology [address] [place] [address] NamePriorityAssociated DiagnosesDate/TimeINSERTION PORT A CATH needed for chemotherapy 08/20/2025 11:30 AM ESTNameTypePriorityAssociated DiagnosesOrder Schedule Ambulatory referral to Palliative Medicine Home Visits (Non-[facility])Outpatient ReferralRoutine Endometrial cancer determined by uterine biopsy ([facility]) 1 Occurrences starting 08/14/2025 until 08/14/2026documented as of this encounter Goals GoalPatient Goal TypeAssociated ProblemsRecent ProgressPatient-Stated?Author return home Milagros Escobedo RN Note: Evaluation of progress towards goal: patient plans to return home with family support Autogenerated Goal Care PlanAutogenerated ProblemNoPotts, Elizabethdocumented as of this encounter Visit Diagnoses Diagnosis Endometrial cancer determined by uterine biopsy ([facility] Primary documented in this encounter Additional Health Concerns Active ProblemsNoted DateDiagnosed DateAutogenerated Ycbipom4508/10/2025ssessment Noted TimePHQ-9 Depression Total Score: 3:45 PM ESTdocumented as of this encounter Care Teams Team MemberRelationshipSpecialtyStart DateEnd Date Bin Sidhu MD [address] [place] [address] PCP - GeneralFamily Wrjqkxhs93/9/25documented as of this encounter
--- OUTSIDE RECORDS SUMMARY | 2025-08-16 20:23 | XMS_ITS | Encounter Summary ---
Author Organization [facility] tem Address [id number] [address] [place] [address] Care Team Providers Care Industrial Service Technician Name Role Phone Bin Sidhu MD Primary Care Provider [phone] Encounter Details DateTypeDepartmentCare Team (Latest Contact Info)Cgctytwbrjj43/13/2025Telephone [facility] [address] [place] [phone] Regina Zarate RMA Social History Tobacco UseTypesPacks/DayYears UsedDateSmoking Tobacco: NeverSmokeless Tobacco: NeverAlcohol UseStandard Drinks/WeekCommentsNever0 (1 standard drink = 0.6 oz pure alcohol)PHQ-2AnswerDate RecordedTotal Iuqnm27510/04/2024UDIT-CAnswerDate RecordedQ1: How often do you have a [...] ValueDate RecordedSex Assigned at BirthNot on fileLegal MbjWjolgi32/08/2025 12:05 AM ESTGender IdentityNot on fileSexual OrientationNot on filedocumented as of this encounter Miscellaneous Notes * Telephone Encounter - ULI Blanchard - 08/09/2025 11:57 AM EST Images from the original note were not included. 08/09/25 I called patient and left a voicemail to call me to schedule a port placement. I left my phone number and extension on her voicemail. ULI Blanchard / energy scheduler 08/09/25 MD Carmelina Donaldson; Cheryl Back, FEATHER STITCHER-SITE PROMOTION AGENT Cc: Dafne Colmenares; ULI Blanchard Yes please schedule. Aug 20 ----- Message ----- From: Carmelina Montgomery Sent: 08/08/2025 1:06 PM EST To: Justin Mackey MD; Regina Zarate, * Subject: PORT PLACEMENT We received a referral for a port placement for chemotherapy on above patient. Can you review the chart and let us know if you'd like the patient scheduled? * Telephone Encounter - ULI Blanchard - 08/09/2025 11:57 AM EST 08/10/25 I called the patient and left a message to call the office to schedule a port placement. I left my phone number and extension on her voicemail. documented in this encounter Plan of Treatment DateTypeDepartmentCare Team (Latest Contact Info)Mwgujnqkzdg35/24/2025 11:30 AM ESTHospital Encounter [facility] Surgery [address] [place] [address] Justin Mackey MD [address] [place] [phone] 08/20/2025 11:30 AM EST - 08/20/2025 12:30 PM ESTSurgery [facility] [address] [place] [address] Justin Mackey MD [address] [place] [phone] INSERTION PORT A CATH [[id number] (CPT??)]08/21/2025 8:00 AM ESTInfusion [facility]ola [facility] - Medical Oncology [address] [place] [phone] 08/21/2025 11:00 AM ESTOffice Visit Paola [facility] - Medical Oncology [address] [place] [phone] Melinda Coffey PA [address] [place] [address] 09/10/2025 11:00 AM ESTInfusion Paola [facility] - Medical Oncology [address] [place] [phone] 09/10/2025 1:30 PM ESTOffice Visit [facility], A Department of [facility] [place] [id number] [facility] [address] [place] [phone] Annita Patton, FEATHER STITCHER-SITE PROMOTION AGENT [address] [facility], [address] [place] [address] 09/11/2025 8:00 AM ESTInfusion [facility] - Medical Oncology [address] [place] [address] NamePriorityAssociated DiagnosesDate/TimeINSERTION PORT A CATH [...] Team MemberRelationshipSpecialtyStart DateEnd Date Bin Sidhu MD [address] [place], [place] [phone] PCP - GeneralFamily Wjxdtckj37/9/25documented as of this encounter
--- OUTSIDE RECORDS SUMMARY | 2025-08-16 20:23 | XMS_ITS | Encounter Summary ---
Author Organization [facility] Address [id number] [address] [place] [address] Care Team Providers Care Hiv Nurse Name Role Phone Bin Sidhu MD Primary Care Provider [phone] Encounter Details DateTypeDepartmentCare Team (Latest Contact Info)Wmsqvetuukr02/14/2025Orders Only [facility] Gynecology Oncology, A Department of [facility] [address] [facility] [address] [place] [address] Desmond Martin RN Social History Tobacco UseTypesPacks/DayYears UsedDateSmoking Tobacco: NeverSmokeless Tobacco: NeverAlcohol UseStandard Drinks/WeekCommentsNever0 (1 standard drink = 0.6 oz pure alcohol)PHQ-2AnswerDate RecordedTotal Qlsts31410/04/2024UDIT-CAnswerDate RecordedQ1: How often do you have a [...] ValueDate RecordedSex Assigned at BirthNot on fileLegal VuyBwmymg01/08/2025 12:05 AM ESTGender IdentityNot on fileSexual OrientationNot on filedocumented as of this encounter Progress Notes * Desmond Martin RN - 08/10/2025 11:08 AM EST Clinicals faxed to [facility] at [phone]. documented in this encounter Plan of Treatment DateTypeDepartmentCare Team (Latest Contact Info)Fxyxfvvldxt91/24/2025 11:30 AM ESTHospital Encounter [facility] Surgery [address] [place] [address] Justin Mackey MD [address] [place] [address] 08/20/2025 11:30 AM EST - 08/20/2025 12:30 PM ESTSurgery [facility] Surgery [address] [place] [address] Justin Mackey MD [address] [place] [address] INSERTION PORT A CATH [[id number] (CPT??)]08/21/2025 8:00 [address]Infusion [place]ola [address] [facility] - Medical Oncology [address] [place] [address], [place] [phone] 08/21/2025 11:00 AM ESTOffice Visit Paola [facility] - Medical Oncology [address] [place] [address], [place] [address] Melinda Coffey [place] [address] [facility] [address] [address] [place], [place] [phone] 09/10/2025 11:00 AM ESTInfusion Paola [address] [facility] - Medical Oncology [address] [place] [address], [place] [address] 09/10/2025 1:30 PM ESTOffice Visit [facility] On[facility], A Department of [address] [place] [phone] Annita Patton, TRADE SHOW SPECIALIST-FORENSIC TOXICOLOGIST [address] [facility], [address] [place] [address] 09/11/2025 8:00 AM ESTInfusion Paola [facility] [facility] - Medical Oncology [address] [place] [phone] NamePriorityAssociated DiagnosesDate/TimeINSERTION PORT A CATH needed [...] Additional Health Concerns Active ProblemsNoted DateDiagnosed DateAutogenerated Tjrwnrz0808/10/2025ssessment Noted TimePHQ-9 Depression Total Score: 3:45 PM ESTdocumented as of this encounter Care Teams Team MemberRelationshipSpecialtyStart DateEnd Date Bin Sidhu MD [address] [place] [id number] PCP - GeneralFamily Gowinzwc70/9/25documented as of this encounter
--- OUTSIDE RECORDS SUMMARY | 2025-08-16 20:23 | XMS_ITS | Encounter Summary ---
Author Organization [facility] tem Address [facility][id number] [address] [place] [address] Care Team Providers Care Shot Man Name Role Phone Bin Sidhu MD Primary Care Provider [phone] Encounter Details DateTypeDepartmentCare Team (Latest Contact Info)Vghgmqnatlz22/17/2025Telephone [facility] Gynecology Oncology, A Department of [facility] [address] [facility] [address] [place] [address] Milagros Machado RN Social History Tobacco UseTypesPacks/DayYears UsedDateSmoking Tobacco: NeverSmokeless Tobacco: NeverAlcohol UseStandard Drinks/WeekCommentsNever0 (1 standard drink = 0.6 oz pure alcohol)PHQ-2AnswerDate RecordedTotal Kspvj02310/04/2024UDIT-CAnswerDate RecordedQ1: How often do you have a [...] ValueDate RecordedSex Assigned at BirthNot on fileLegal WzdMybldv81/08/2025 12:05 AM ESTGender IdentityNot on fileSexual OrientationNot on filedocumented as of this encounter Miscellaneous Notes * Telephone Encounter - Milagros Machado RN - 08/13/2025 1:47 PM EST Bridge Crane Operator contacted patient and advised her she can take 50 mg benadryl [address] to [address] to decrease risk of reaction per Melinda Coffey. Patient verbalized her understanding and states she will use OTC benadryl. She is aware that she will need a oil truck driver. documented in this encounter Plan of Treatment DateTypeDepartmentCare Team (Latest Contact Info)Vvwjsqypaog11/24/2025 11:30 AM ESTHospital Encounter [facility] Surgery [address] [place] [phone] Justin Mackey MD [address] [place] [phone] 08/20/2025 11:30 AM EST - 08/20/2025 12:30 PM ESTSurgery [facility] Surgery [address] [place] [phone] Justin Mackey MD [address] [place] [address] INSERTION PORT A CATH [[id number] (CPT??)]08/21/2025 8:00 AM ESTInfusion Paola [facility] - Medical Oncology [address] [place] [phone] 08/21/2025 11:00 AM ESTOffice Visit Paola [place] [facility] - Medical Oncology [address] [place] [phone] Melinda Coffey PA [address] [facility] [address] [place] [address] 09/10/2025 11:00 AM ESTInfusion [place]ola [facility] - Medical Oncology [address] [place] [phone] 09/10/2025 1:30 PM ESTOffice Visit [facility], A Department of [address] [place] [phone] Annita Patton, CALCULUS TEACHER-ULTRASOUND TECHNOL [address] [facility], [address] [place] [address] 09/11/2025 8:00 AM ESTInfusion [place] [facility] - Medical Oncology [address] [place] [phone] NamePriorityAssociated DiagnosesDate/TimeINSERTION PORT A CATH needed for [...] Additional Health Concerns Active ProblemsNoted DateDiagnosed DateAutogenerated Xtvwdpl6608/10/2025ssessment Noted TimePHQ-9 Depression Total Score: 3:45 PM ESTdocumented as of this encounter Care Teams Team MemberRelationshipSpecialtyStart DateEnd Date Bin Sidhu MD [address] [place] [address] PCP - GeneralFamily Vebaeufa34/9/25documented as of this encounter
[2025-08-16 20:24] LABS: Alanine Aminotransferase 19 U/L (14-59); Albumin Globulin Ratio 0.6; Albumin Level 2.3 g/dL (3.4-5.0); Alkaline Phosphatase 93 U/L (46-116); Anion Gap 14.2; Aspartate Amino Transferase 14 U/L (15-37); Blood Urea Nitrogen 25.0 mg/dL (7.0-18.0); Calcium 8.7 mg/dL (8.5-10.1); Carbon Dioxide 24.2 mmol/L (21.0-32.0); Chloride 104 mmol/L (98-107); Estimated GFR (African America >60 (>=60 mL/min/1.73m^2); Estimated GFR (Non-African Ame >60 (>=60 mL/min/1.73m^2); Globulin 4.1 g/dL; Glucose 138 mg/dL (74-106); Sodium 140 mmol/L (136-145); Total Protein 6.4 g/dL (6.4-8.2)
--- OUTSIDE RECORDS SUMMARY | 2025-08-16 20:24 | XMS_ITS | Encounter Summary ---
Author Organization [facility] tem Address [id number] [address] [place] [address] Care Team Providers Care Finance Officer Name Role Phone Bin Sidhu MD Primary Care Provider [phone] Encounter Details DateTypeDepartmentCare Team (Latest Contact Info)Styacmfdofd67/14/2025Telephone [facility] Gynecology Oncology, A Department of [facility] [address] [facility] [address] [place] [address] Milagros Machado RN Social History Tobacco UseTypesPacks/DayYears UsedDateSmoking Tobacco: NeverSmokeless Tobacco: NeverAlcohol UseStandard Drinks/WeekCommentsNever0 (1 standard drink = 0.6 oz pure alcohol)PHQ-2AnswerDate RecordedTotal Cziqs87010/04/2024UDIT-CAnswerDate RecordedQ1: How often do you have a [...] ValueDate RecordedSex Assigned at BirthNot on fileLegal YarVfgubw08/08/2025 12:05 AM ESTGender IdentityNot on fileSexual OrientationNot on filedocumented as of this encounter Miscellaneous Notes * Telephone Encounter - Milagros Machado RN - 08/10/2025 9:30 AM EST 08/13/25 Patient: Eunice Anderson 1955 Diagnosis: No diagnosis found. The patient recently met with their primary oncologist to discuss available anti-cancer treatment options. The patient has elected to proceed with the recommendations. The patient presents today for education related to the recommended anti-cancer therapy. This chemo teach was performed via telephone Learning Assessment Readiness to Learn [x] Yes [] No Barriers to Education [x] No [] Yes [] Hearing impaired [] Vision Impaired [] Low literacy level [] Language barrier. Patient speaks: [] Publications Distribution Clerk Services present. [] Anxiety [] Cognitive barriers [] Other: Learning Preference [x] Listening [x] Reading [x] Repetition [] Other: Present for Education patient and family Diagnosis and Treatment Plan The patient was provided with written and verbal information regarding their diagnosis, treatment plan, diagnostic testing related to treatment, and location of treatment, including the following: Goal of Therapy [x] Curative [] Palliative Treatment Plan Antineoplastic Day of Cycle Route Days Duration of Treatment Carboplatin 1 IV 21 [x] # of cycles: 6 cycles carbo/taxol/pembro f/b maintenance pembro Q6 weeks [] Dependent upon response to treatment and toxicities Paclitaxel 1 IV 21 Pembrolizumab 1 IV 21 Labs and Diagnostic Tests: Name and Type of Test When the test should be done [] Bone density testing [] Before first treatment then every 2 years [] ECG [] Before first treatment [] Before first treatment then: [] ECHO [] Before first treatment [] Before first treatment, every 3 months, at the completion of treatment. [] Other: [] Pulmonary Function Tests []Before first treatment [x] CBC and diff [] Day of treatment [x] Day before treatment [] Other: [x] CMP. Mg [] Day of treatment [x] Day before treatment [] Other: [] Hepatitis B Testing [] Before first treatment [x] TSH with reflex T4 [] Day of treatment [x] Day before treatment [] Other: [] Testing [] Before first treatment then: [] Other: []Before first treatment []Before first treatment then: Location of Treatment: [] Oral, patient's home [] [facility] [] [facility] [] [facility] [] [facility] [x] [facility] [] [facility] [] [facility]patient Unit [] [facility] Interventional Radiology [] [facility] [] [facility] [] [facility] [] [facility] [] [facility] [] [facility] [x] The patient was instructed that it would be necessary to have someone drive them to and from treatment. Side-Effects The major side effects of this treatment, marked below, were explained. We discussed that most risks are temporary but some may be permanent. We also discussed that with any medical treatment there is a possibility of unexpected complications. Written information regarding side effect management was provided to the patient, including signs and symptoms to report and supportive care strategies: [x] Alopecia [] Appetite, decreased [x] Arthralgias/ myalgias [x] Bone marrow depression (anemia, leukopenia, thrombocytopenia) [] Cancer (secondary malignancy), treatment related, increased risk [x] Cardiotoxicity [x] Arrhythmias [] CHF [x] Other (type in): bradycardia, changes in blood pressure [] Cognitive changes (e.g., chemo brain) [] Constipation [] Dermatologic reactions (skin, nails) [x] Diarrhea [] Edema, peripheral [x] Electrolyte changes [] Endocrinopathies [thyroid, pancreas, pituitary gland, adrenal glands] [] Extravasation [x] Fatigue [] Fluid retention/peripheral edema [] Hearing changes [] Hemorrhagic cystitis [x] Hepatotoxicity [] Hypertension [] Hypotension [x] Immune check point inhibitor immune mediated toxicities:colitis, skin reactions (rash, itching, mouth sores, blisters), pneumonitis, brain and nerve problems, hormone abnormalities of the pituitary gland, thyroid gland, and adrenal glands, eye problems (change in vision, eye pain, redness), nephritis and failure, carditis (rare) [x] Infection, increased risk [x] Infusion Reaction, allergic reactions [] Menopause Symptoms: hotflashes, vaginal dryness, decreased libido [x] Mucositis [x] Nausea and Vomiting [x] Nephrotoxicity [] Osteopenia, Osteoporosis [x] Peripheral neuropathy [] Pulmonary toxicity [] Reproductive, possible effects on fertility and the fetus [] Taste changes [] Urine color change, temporary [] Venous Thromboembolism, increased risk (DVT, PE) [] Vision Changes, Ocular Toxicities [] Wound healing, impaired [] Other (type in): Supportive Care Medications [x] The patient was instructed to pickling solution maker prescriptions prior to starting treatment. Supportive care medications, including indication, dose, frequency, and side- effects were reviewed and the patient was provided with written materials: [] Acyclovir (Zovirax) [] Allopurinol (Zyloprim) [] Diphenoxlylate/Atropine (Lomotil) [x] Dexamethasone (Decadron). - The patient was instructed to take dexamethasone 2 tablets by mouthonce daily on days 2, 3, and 4 following chemotherapy. [x] Emla Cr??me. [] Loperamide (Immodium) [] Miralax [] Olanzapine (Zyprexa) [x] Ondansetron (Zofran) [x] Prochloperazine (Compazine) [] Sulfamethazole/Trimethoprim (Bactrim) [] Other (type in): Contact and Emergency Information/Appointments [x] The patient was provided with provider contact information and emergency contact information. They were advised to call the phone number provided 19/04, in the event that events occurred outside of normal business hours. They were advised of the process for cancelling and rescheduling appointments. The patient was provided with information regarding the frequency of office visits: [] Before each treatment and more often if indicated. Patient instructed to refer to After Visit Summary for future appointments. [x] Before each cycle and more often if indicated. Patient instructed to refer to After Visit Summary for future appointments. Safehandling Precautions in the Home [x] The patient was provided with written and verbal instructions regarding safehandling precautions in the home. [x] Office and emergency Contact Information [] [facility]: A Guide to Living with Cancer* [x] OncoLink Antineoplastic Agent drug information [] Lexicomp Antineoplastic drug information [] NCCN Disease Specific Information (type in name): [] Neutropenia Wallet Card [] Immunotherapy Wallet Card [] Emla Cream Wallet Card [] Chemotherapy Calendar [] In addition to the side effect information included in the [facility] Guidebook, I have provided the patient with handouts on (type in name): [] Other: Patient Understanding Eunice Anderson and her family were provided with an opportunity to ask any remaining questions. The patient was able to teach back the following information: [x] Diagnosis [x] Goals of Therapy [x] Names of antineoplastic medications [x] Supportive care medications, indications, dose, and frequency [x] Short and lobsterman side effects, including indications to notify provider and self-care [x] Schedule and duration of treatment [x] Labs and diagnostic tests, including frequency and timing [x] Location of treatment [x] Frequency of office visits and procedure for cancelling and rescheduling appointments [x] Office and emergency contact information and examples of indications to call or go to the Emergency Room. [] Safehandling precautions in the home [] The patient was able to teach back the following information: possible effects on fertility and the fetus, need for contraception, and for females- testing. Total Time Spent: (type in) [x] 100% of the visit today was spent in counseling the patient and their family [x] Time spent: 90 minutes *The [facility] [place]: A Guide to Living with Cancer ?? 2021 includes the following information: knowing when to call the doctor, cancer pathology and staging, cancer treatment overview, cancer treatment plan, symptoms (indications to call and management) for loss of appetite, low blood counts, chemo brain, constipation, diarrhea, dry mouth, fatigue, hair loss, hand foot syndrome, infertility, more sores and sore throat, nausea and vomiting, pain, peripheral neuropathy, sexual health and intimacy (including need for contraception), taste changes, and safehandling of hazardous medications. documented in this encounter Plan of Treatment DateTypeDepartmentCare Team (Latest Contact Info)Dkcnufjqcro48/24/2025 11:30 AM ESTHospital Encounter [facility] [address] [place] [address] Justin Mackey MD [address] [place] [phone] 08/20/2025 11:30 AM EST - 08/20/2025 12:30 PM ESTSurgery [facility] [address] [place] [phone] Justin Mackye MD [address] [place] [phone] INSERTION PORT A CATH [70574 (CPT??)]08/21/2025 8:00 AM ESTInfusion [facility] - Medical Oncology [address] [place] [phone] 08/21/2025 11:00 AM ESTOffice Visit [facility] [place] [facility] On[facility] [address] [place] [phone] Melinda Coffey PA [address] [place] [address] 09/10/2025 11:00 AM ESTInfusion [facility] - Medical Oncology [address] [place] [address] 09/10/2025 1:30 PM ESTOffice Visit [facility], A Department of [address] [place] [phone] Annita Patton, SENIOR CLERK-THEATRICAL TROUPER [address] [facility], [address] [place] [address] 09/11/2025 8:00 AM ESTInfusion [facility] [place] [facility] - Medical Oncology [facility] [place] [address] NamePriorityAssociated DiagnosesDate/TimeINSERTION PORT A CATH needed for chemotherapy 08/20/2025 11:30 AM ESTdocumented as of this encounter Goals GoalPatient Goal TypeAssociated ProblemsRecent ProgressPatient-Stated?Author return home Milagros Escobedo RN Note: Evaluation of progress towards goal: patient plans to return home with family support Autogenerated Goal Care PlanAutogenerated ProblemNoPotts, Elizabethdocumented as of this encounter Visit Diagnoses Diagnosis Endometrial cancer determined by uterine biopsy ([facility])- Primary Port-A-Cath in place documented in this encounter Additional Health Concerns Active ProblemsNoted DateDiagnosed DateAutogenerated Opyhtck5708/10/2025ssessment Noted TimePHQ-9 Depression Total Score: 3:45 PM ESTdocumented as of this encounter Care Teams Team MemberRelationshipSpecialtyStart DateEnd Date Bin Sidhu MD [address] [place] [address] PCP - GeneralFamily Oqabyjxi58/9/25documented as of this encounter
--- OUTSIDE RECORDS SUMMARY | 2025-08-16 20:24 | XMS_ITS | Clinical Summary ---
Author Organization [facility] Address [address] [place], [place] [address] Care Team Providers Care Food Beverage Server Name Role Phone Bin Sidhu MD Primary Care Provider Allergies Active AllergyReactionsCriticalityNoted YdcaIayndhcmVeieiHmfcQanu30/31/2009 Medications MedicationSigDispense QuantityRefillsLast FilledStart DateEnd DateStatus TETRACYCLINE 500 MG CAP Indications:Knee joint gxqz004ctive naproxen(NAPROSYN 500 MG TAB) Indications:Knee joint pain,Knee bursitis1 PPO BID with food 60 ctive Social History Tobacco UseTypesPacks/DayYears UsedDateSmoking Tobacco: Never Assessed CommentsUnknownSex and Gender InformationValueDate RecordedSex Assigned at Not on fileLegal CivKswwhs16/02/2012 8:21 AM ESTGender IdentityNot on fileSexual OrientationNot on file Plan of Treatment Health MaintenanceDue DateLast DoneCommentsAnxiety Rwwjxsuth15/05/1973Depression Clckkloff20/05/1973Hepatitis C Zbltcckcy51/05/1973DTaP,Tdap,Td Vaccine (1 - Tdap)1974Mammogram Ihxeuchkq07/05/1995CT Pxqcaijnital89/05/2000Cologuard (FIT-DNA)03/31/20009828Kcyffpqwgtf68/05/2000Colorectal Cancer Temdryqpk13/05/2000 Diabetes Dppiqrgnt77/05/2000Fecal Occult Blood2000Lipid Screening 03/31/20003991Bpcvzjoilpcji25/05/2000Pneumococcal Vaccine: 50+ (1 of 1 - PCV) 2005Shingrix Vaccine (1 of 2)2005Bone Density Utpiyeeka14/05/2020 Advance Directive Cgsjiccxsb28/01/2025ovid-19 Vaccine ( - 2024-26 season) 2025Influenza Vaccine (#1)2025RSV Vaccine (1 - 1-dose 75+ series) 2030 Insurance Care Teams Team MemberRelationshipSpecialtyStart DateEnd Date Bin Sidhu MD [address] [place] [address] [facility]05/10/09
[2025-08-16 20:26] LABS: Potassium 2.4 mmol/L (3.5-5.1)
--- NOTE | 2025-08-16 20:34 | ECG_ITS ---
The [facility] Test Date: 2025-08-16 Pat Name: OTONIEL GONZALEZ Department: Room: - Gender: Female Senior Bi Developer: : 1955 Requested By: [id number] Order Number: [id number] Reading MD: MARIANNA HAMMOND M.D. Measurements Intervals Thornton Rate: 82 P: 43 WY: 146 QRS: 27 QRSD: 94 T: 150 QT: 304 QTc: 343 Interpretive Statements 1100 Sinus rhythm 1570 with occasional ventricular premature complexes [address] depression [address] & Twave abnormality 8102 Low QRS voltage in chest leads 8305 Short QTc interval 9150 abnormal ECG No previous ECG available for comparison Electronically Signed On 08-17-2025 6:31:55 EST by MARIANNA HAMMOND M.D.
[2025-08-16 20:37] LABS: Basophils Abs Manual 0.00 10^3/uL (0.00-0.10); Basophils Percent Manual 0.0 % (0.2-2.0); Eosinophils Absolute Manual 0.00 10^3/uL (0.00-0.70); Eosinophils Percent Manual 0.0 % (0.9-7.0); Lymphocytes Absolute Manual 0.99 10^3/uL (1.20-3.80); Lymphocytes Percent Manual 3.0 % (20.5-60.0); Monocytes Absolute Manual 0.99 10^3/uL (0.30-0.80); Monocytes Percent Manual 3.0 % (1.7-12.0); Segmented Neut Absolute Manual 31.20 10^3/uL (1.4-6.5); Segmented Neutrophils % Manual 94.0 (43.0-75.0)
--- NOTE | 2025-08-16 20:47 | CT_ITS ---
The [address] [address] Patient Name: OTONIEL GONZALEZ MRN: [id number] date: 1955 Sex: F Assigned Patient Location: ER Current Patient Location: ER Accession/Order Number: [id number] Exam Date: 08/16/2025 20:55 Report Date: 08/16/2025 21:46 At the request of: LUNA GRIMALDO Procedure: CT abdomen pelvis w con CT Abdomen and Pelvis withcontrast TECHNIQUE: Axial imaging with 2-D reconstruction. The CT exam was performed using one or more the following dose reduction techniques: Automated exposure control, adjustment of the MA and/or Kv according to patient size, or use of the iterative reconstruction technique. COMPARISON: None History: Increased weakness. Leukocytosis. Hysterectomy one week ago. LIMITATIONS: None LOWER THORAX Unremarkable LIVER: Unremarkable GALLBLADDER: No gallbladder abnormality identified. BILE DUCTS: No dilatation SPLEEN: Unremarkable PANCREAS: Unremarkable ADRENAL GLANDS: Unremarkable KIDNEYS:Unremarkable AORTA: No abdominal aortic aneurysm identified. RETROPERITONEUM: No significant retroperitoneal abnormalities identified. MESENTERY:Unremarkable STOMACH:Unremarkable SMALL BOWEL: The small bowel loops are nondistended. APPENDIX: The appendix is normal. COLON: Edematous colon wall thickening throughout. URINARY BLADDER: Urinary bladder is unremarkable. REPRODUCTIVE SYSTEM: The uterus is absent. PNEUMOPERITONEUM: None PERITONEAL FLUID:Small amount of ascites. BONY STRUCTURES: Unremarkable ABDOMINAL WALL: Extensive subcutaneous air seen throughout the abdominal wall. No fluid collections. CT/CT abdomen pelvis w con IMPRESSION: Acute pancolitis. Small amount of ascites. May consider pseudomembranous colitis. Extensive subcutaneous air throughout the abdominal wall. May represent postsurgical change. Consideration for infectious etiology. Impression dictated by: Malik Story M.D. 08/16/2025 9:46 PM Dictation Location[facility] Electronically authenticated by: [id number] Y Date: 08/16/2025 21:46
[2025-08-16] MEDS: POTASSIUM BICARBONATE/CIT 25 MEQ TABLET EFF 50 MEQ PO (21:17)
[2025-08-16 21:31] LABS: Magnesium 2.3 mg/dL (1.8-2.4)
[2025-08-16] MEDS: MORPHINE SULFATE 4 MG/ML VIAL IV (22:14)
[2025-08-16 22:37] LABS: Lactate/Lactic Acid 1.3 mmol/L (0.4-2.0)
[2025-08-16 23:10] LABS: C. Difficile PCR POSITIVE
[2025-08-16] MEDS: VANCOMYCIN HCL 7,500 MG/150 ML BOTTLE 125 MG PO (23:38)
[2025-08-17] VITALS (16 sets, daily range): BP systolic 98–129; BP diastolic 59–73; PULSE 78–99; TEMP 36.8–37.4; O2SAT 93–96; BMI 27.1
[2025-08-17] MEDS: 0.9 % SODIUM CHLORIDE 1,000 ML 125 ML IV ×2 (02:11→09:55)
[2025-08-17] MEDS: METRONIDAZOLE/SODIUM CHLORIDE 500 MG/100 ML PREMIX 100 MG IV ×3 (02:11→18:14)
[2025-08-17 03:56] LABS: Glucose Urine UA NEGATIVE (NEGATIVE)
[2025-08-17 04:01] LABS: Crystals Seen? None Seen #/HPF (None Seen)
[2025-08-17 04:02] LABS: Cast Seen? NONE SEEN #/LPF (NONE SEEN); Urine Culture Indicated YES-FRMC
[2025-08-17 05:47] LABS: Hematocrit 30.1 % (36.0-48.0); Hemoglobin 9.6 g/dL (12.0-16.0); Immature Granulocytes Abs Auto 0.44 10^3/uL (0.00-0.03); Immature Granulocytes Pct Auto 1.2 % (0.0-0.5); Lymphocytes Absolute Auto 1.4 10^3/uL (1.2-3.8); Mean Corpuscular HGB Conc 31.9 g/dL (29.9-35.2); Mean Corpuscular Hemoglobin 28.3 pg (26.7-34.0); Mean Corpuscular Volume 88.8 fL (81.0-99.0); Platelet Count 587 10^3/uL (150-450); Red Blood Count 3.39 10^6/uL (4.20-5.40)
[2025-08-17 05:49] LABS: White Blood Count 35.9 10^3/uL (4.0-11.0)
[2025-08-17 06:11] LABS: Alanine Aminotransferase 13 U/L (14-59); Albumin Globulin Ratio 0.6; Albumin Level 2.1 g/dL (3.4-5.0); Alkaline Phosphatase 87 U/L (46-116); Anion Gap 13.7; Aspartate Amino Transferase 13 U/L (15-37); Blood Urea Nitrogen 23.0 mg/dL (7.0-18.0); Calcium 8.5 mg/dL (8.5-10.1); Carbon Dioxide 24.2 mmol/L (21.0-32.0); Chloride 106 mmol/L (98-107); Estimated GFR (African America >60 (>=60 mL/min/1.73m^2); Estimated GFR (Non-African Ame >60 (>=60 mL/min/1.73m^2); Globulin 3.8 g/dL; Glucose 121 mg/dL (74-106); Magnesium 2.0 mg/dL (1.8-2.4); Sodium 141 mmol/L (136-145); Total Protein 5.9 g/dL (6.4-8.2)
[2025-08-17 06:16] LABS: Potassium 2.9 mmol/L (3.5-5.1)
[2025-08-17] MEDS: VANCOMYCIN HCL 7,500 MG/150 ML BOTTLE 500 MG PO ×3 (07:38→21:03)
[2025-08-17] MEDS: POTASSIUM CHLORIDE 20 MEQ in 0.9 % SODIUM CHLORIDE 250 ML 130 MEQ IV (08:14)
[2025-08-17] MEDS: ENOXAPARIN SODIUM 40 MG/0.4 ML SYRINGE SUBQ (09:29)
[2025-08-17] MEDS: MORPHINE SULFATE 2 MG/ML SYRINGE IV ×2 (10:08→15:50)
--- NOTE | 2025-08-17 10:52 | PM.HP ---
HPI H&P: HPI History of Present Illness Chief complaint: Pancolitis, hypokalemia, possible C.Diff + Narrative: Mrs. Anderson is a 70-year-old female who came to the emergency room with 5 days history of progressive pain in the abdomen, nausea, 1 episode of vomiting and diarrhea. No hematemesis or melena. No fever or chills. She was found to have severe leukocytosis and pancolitis. C. difficile is positive. Patient was at [facility] recently requiring hysterectomy for uterine cancer. Patient is scheduled to have a port next week to initiate chemotherapy for metastatic uterine cancer. Patient is not aware that she was given antibiotic in [place]. No prior history of C. difficile infection. No family history of C. difficile infection. Opioid HPI Opioid Management Most Recent Pain and Opioid Data: Last Pain Scale 6 Today, 10:00 Last Pain Assessment Today, 10:00 Last MAR Pain Assessment 08/16/25, 22:14 Last ORT Total Score 0 Today, 00:06 Last ORT Risk Category Low Risk Today, 00:06 Review of Systems ROS Status of ROS 10 or more systems reviewed and unremarkable except as noted in history and below PFSH [facility] Medical History (Updated 08/17/25 @ 10:54 by Sabas Robin MD) Glaucoma ?H40.9 - Unspecified glaucoma (ICD-10) Hypokalemia ?E87.6 - Hypokalemia (ICD-10) Lymph node cancer ?C77.9 - Secondary and unspecified malignant neoplasm of lymph node, unspecified (ICD-10) Hysterectomy planned Family History (Updated 08/17/25 @ 00:28 by Chantale Boyle RN) Father Family history of CHF (congestive heart failure) Family history of cancer Family history of diabetes mellitus Family history of myocardial infarction Family history of stroke Mother Family history of cancer Brother Family history of hypertension Social History (Updated 08/17/25 @ 00:29 by Chantale Boyle RN) Within the past year, how often did you have a drink containing alcohol: never Score interpretation: A score less than 3 is consistent with normal alcohol consumption. Smoking status: Never smoker Non-prescribed substance use: denies use Known occupational exposures/hazards: Yes Highest level of school completed/degree received: Bachelor's degree Are you now , , , , never or living with a partner: In a typical week, how many times do you talk on the telephone with family, friends, or neighbors: 3 or more times per week How often do you get together with friends or relatives: 3 or more times per week Little interest or pleasure in doing things: not at all Feeling down, depressed, or hopeless: not at all Feel stressed/tense/nervous/anxious/difficulty sleeping: not at all Do you think of yourself as: straight/heterosexual Gender Identity: female Meds Home Medications and Allergies Home Medications ?Medication ?Instructions ?Recorded ?Confirmed ?Type acetazolamide 250 mg tablet 250 mg PO Q12H 08/03/25 08/16/25 History dorzolamide 2 % eye drops 1 drp ophthalmic (eye) TID 08/03/25 08/16/25 History netarsudil 0.02 %-latanoprost 1 drp ophthalmic (eye) QPM 08/03/25 08/16/25 History 0.005 % eye drops ([place]) timolol 0.5 % eye drops 1 drp ophthalmic (eye) BID 08/03/25 08/16/25 History potassium chloride 10 mEq 20 meq PO QID 08/17/25 08/17/25 History tablet,extended release Allergies Allergy/AdvReac Type Severity Reaction Status Date / Time latex Allergy Hives Verified 08/16/25 19:29 Exam Narrative Exam Narrative: [pt is awake and alert. oriented to place, time and person HEENT: Pale conjunctiva and NL buccal mucosa Neck: Supple, no tenderness Endocrine: No Thyromegaly. Vascular: No JVD or carotid bruit. Lymphatic: No cervical lymphadenopathy. Chest: CTA no DTP. Heart RRR, no extra sound or murmur. Abd: Soft, diffuse tenderness. Evidence of recent laparoscopic surgical intervention for her recent hysterectomy completed in [place]. Neuro: A A O. Nl speech, comprehension and attention. Nl and symetrical motor and tone examination through out. []] Constitutional Vital Signs, click to edit/add: Last Vital Signs Temp 98.3 F 08/17/25 08:00 Pulse 91 H 08/17/25 10:00 Resp 20 08/17/25 08:00 BP 117/62 08/17/25 08:00 Pulse Ox 95 08/17/25 08:00 O2 Del Method Room Air 08/17/25 08:00 Results Labs Labs: Short CBC 08/16/25 08/17/25 Range/Units 19:50 05:36 WBC 33.2 H* 35.9 H* (4.0-11.0) 10^3/uL Hgb 10.5 L 9.6 L (12.0-16.0) g/dL Hct 32.3 L 30.1 L (36.0-48.0) % Plt Count 649 H 587 H (150-450) 10^3/uL BMP 08/16/25 08/17/25 19:50 05:36 Sodium 140 141 Potassium 2.4 L* 2.9 L* Chloride 104 106 Carbon Dioxide 24.2 24.2 BUN 25.0 H 23.0 H Creatinine 0.82 0.62 Glucose 138 H 121 H Calcium 8.7 8.5 Liver Function 08/16/25 08/17/25 Range/Units 19:50 05:36 Total Bilirubin 0.4 0.4 (0.2-1.0) mg/dL AST 14 L 13 L (15-37) U/L ALT 19 13 L (14-59) U/L Alkaline Phosphatase 93 87 (46-116) U/L Albumin 2.3 L 2.1 L (3.4-5.0) g/dL Urine 08/17/25 Range/Units 03:45 Urine Color Yellow (YELLOW) Urine Clarity Cloudy A (CLEAR) Urine pH 5.5 (5.0-9.0) Ur Specific [place] 1.010 (1.005-1.025) Urine Protein 30 A (NEG/TRACE) mg/dL Urine Glucose (UA) Negative (NEGATIVE) mg/dL Assessment and Plan Assessment and Plan (1) Sepsis: (2) C. difficile colitis: Plan Sepsis present on admission C. difficile colitis with significant leukocytosis at 35,000. I suspect that this is considered fulminant C. difficile infection I started the patient on vancomycin 500 every 6 hours. I started patient on Flagyl 500 IV every 8 hours. IV fluid infusion. Monitor recovery over the next 48 to 96 hours. Watch for possibility of toxic megacolon. UTI Urine cultures pending. Reasonable to start IV antibiotic for 3 days pending culture report. Known metastatic uterine cancer for which patient had hysterectomy in [place] last week. Patient is scheduled to have a port inserted next week to initiate chemotherapy. I had recommended to hold off on chemotherapy until her C. difficile infection is under control. Anemia, likely caused by recent uterine bleed caused by uterine cancer for which patient had hysterectomy Monitor H&H, no justification for transfusion. Severe hypokalemia, likely caused by diarrhea Potassium supplementation. Magnesium and phosphorus level were checked and they are normal. Glaucoma Continue preadmission eyedrops. I had discussed her case with her and friend at the bedside. I provided them information about her disease, prognosis, expectation and trajectory. I answered all of her questions.
[2025-08-17] MEDS: POTASSIUM CHLORIDE 10 MEQ ER TABLET 60 MEQ PO ×2 (11:10→23:12)
--- NOTE | 2025-08-17 11:22 | CM.NOTE ---
Rounds made with Dr. Robin, discussed with pt plan of care. Pt admitted as inpatient. Will require several days of IV antibiotics.
[2025-08-17] MEDS: ALBUMIN HUMAN 25 GM/100 ML PREMIX IV ×2 (11:52→23:11)
[2025-08-17] MEDS: DORZOLAMIDE HCL 2% OP SOL 200 DROP/10 ML BOTTLE OP ×2 (13:06→21:55)
[2025-08-17 13:25] LABS: A. calcoaceticus-baumannii Cpx NOT DETECTED (NOT DETECTE); Bacteroides fragilis NOT DETECTED (NOT DETECTE); Candida auris NOT DETECTED (NOT DETECTE); Candida glabrata NOT DETECTED (NOT DETECTE); Enterobacterales NOT DETECTED (NOT DETECTE); Enterococcus faecalis NOT DETECTED (NOT DETECTE); Enterococcus faecium NOT DETECTED (NOT DETECTE); Klebsiella aerogenes NOT DETECTED (NOT DETECTE); Klebsiella pneumoniae group NOT DETECTED (NOT DETECTE); Proteus spp. NOT DETECTED (NOT DETECTE); Salmonella spp. NOT DETECTED (NOT DETECTE); Serratia marcescens NOT DETECTED (NOT DETECTE); Source BLOOD; Staphylococcus epidermidis NOT DETECTED (NOT DETECTE); Staphylococcus lugdunensis NOT DETECTED (NOT DETECTE); Staphylococcus spp. NOT DETECTED (NOT DETECTE); Stenotrophomonas maltophilia NOT DETECTED (NOT DETECTE); Streptococcus pyogenes NOT DETECTED (NOT DETECTE)
[2025-08-17 14:36] LABS: Streptococcus spp. DETECTED (NOT DETECTE)
--- NOTE | 2025-08-17 16:10 | SWNOTE1 ---
Important Message from Medicare reviewed and discussed with patient. Pt. verbalized understanding and signed the form. Original given to patient and copy placed in patient?s chart.
--- NOTE | 2025-08-17 16:11 | SWNOTE1 ---
SW met with pt to discuss dc needs. Pt's family in room as well. Pt was independent, driving, and working prior to this. Pt plans on returning home at discharge and no anticipated discharge needs. Pt did ask about getting her medical records sent to Dr. Valenzuela, her PCP, and a doctor in [place]. SW to check and see what process looks like and will get back to pt. Pt will be here through the and SW to follow up Wednesday. Pt also stated the doctor in [place], oncologist, was trying to get her a wheelchair. She asked if the physician here could do that. SW to follow up with this on Wednesday as well.
[2025-08-17 17:08] LABS: Potassium 3.1 mmol/L (3.5-5.1)
--- OUTSIDE RECORDS SUMMARY | 2025-08-17 19:31 | XMS_ITS | Continuity of Care Document ---
Author Organization [facility] Address [address] [place] [address] Phone Care Team Providers Care Belt Tender Name Role Phone Antoni (LINUS)Bethanie DO Attending Provider Sabas Robin MD Attending Provider [phone] Care Teams Visit Care Team Team Status: Inactive Member Role/Relationship Status Dates Bethanie LEE) DO Attending Provider Active Start: August 16, 2025 End: August 16, 2025 Visit Care Team Team Status: Inactive Member Role/Relationship Status Dates Sabas Robin MD Attending Provider Active Sta rt: August 17, 2025 End: August 17, 2025 Social History Smoking Status Unknown if ever smoked Observation Status Observation Response Date of Response Legal Sex Female (finding) [facility] 1954 Procedures Procedure Date Performed Status Urine Culture August 17, 2025 active Blood Culture August 16, 2025 active Encounters Encounter Location(s) Arrival/Admit Date Discharge/Departure Date Discharge/Departure Disposition Provider(s) Departed Referred -[facility] August 16, 2025 11:15pm August 16, 2025 11:16pm Discharged to home care or self care (routine discharge) Bethanie TREJODO Kapil Departed Referred -[facility] August 17, 2025 3:45am August 17, 2025 3:46am Discharged to home care or self care (routine discharge) Sabas Robin MD Plan of Treatment Future Tests Future scheduled test information is unavailable Pending Tests Test Name Ordered Date Scheduled Date Urine Culture August 17, 2025 3:45am Future Visits Future appointment information is unavailable Future Procedures Procedure Name Ordered Date Scheduled Date Urine Culture August 17, 2025 4:32pm Novem 2024 3:45am Blood Culture August 17, 2025 8:18pm 2024 11:15pm Future Medications Future medication information is unavailable Patient Instructions Patient instructions are unavailable
[2025-08-17] MEDS: TIMOLOL MALEATE 0.5% OP SOL 100 DROPS/5 ML BOTTLE 1 DROP OP (21:03)
[2025-08-17] MEDS: MIDODRINE HCL 5 MG TABLET PO (23:12)
[2025-08-18] VITALS (17 sets, daily range): BP systolic 105–119; BP diastolic 60–73; PULSE 65–94; TEMP 36.3–37.1; O2SAT 92–96
[2025-08-18] MEDS: MORPHINE SULFATE 2 MG/ML SYRINGE IV (00:20)
[2025-08-18] MEDS: VANCOMYCIN HCL 7,500 MG/150 ML BOTTLE 500 MG PO ×4 (02:40→23:21)
[2025-08-18] MEDS: METRONIDAZOLE/SODIUM CHLORIDE 500 MG/100 ML PREMIX 100 MG IV ×3 (02:40→17:35)
[2025-08-18] MEDS: DORZOLAMIDE HCL 2% OP SOL 200 DROP/10 ML BOTTLE OP ×3 (06:13→21:15)
[2025-08-18] MEDS: VANCOMYCIN HCL 7,500 MG/150 ML BOTTLE 250 MG PO (08:12)
[2025-08-18] MEDS: TIMOLOL MALEATE 0.5% OP SOL 100 DROPS/5 ML BOTTLE 1 DROP OP ×2 (08:12→22:08)
[2025-08-18] MEDS: MIDODRINE HCL 5 MG TABLET PO ×3 (08:13→17:34)
[2025-08-18] MEDS: ENOXAPARIN SODIUM 40 MG/0.4 ML SYRINGE SUBQ (08:13)
[2025-08-18] MEDS: ZINC OXIDE 30% CREAM 113.4 GM TUBE 1 APPLIC TOPICAL (08:13)
[2025-08-18] MEDS: 0.9 % SODIUM CHLORIDE 250 ML 10 ML IV (08:30)
--- NOTE | 2025-08-18 10:12 | XR_ITS ---
[address] [address] Patient Name: OTONIEL GONZALEZ MRN: [id number] date: 1955 Sex: F Assigned Patient Location: [place] Current Patient Location: [place] Accession/Order Number: [id number] Exam Date: 08/18/2025 11:05 Report Date: 08/18/2025 11:32 At the request of: WON CADET MD Procedure: XR abdomen 1V KUB: CLINICAL INFORMATION: Colitis. COMPARISON: CT abdomen and pelvis 08/16/2025. FINDINGS: Prominent gas-filled small bowel loops. No free air. Osseous structures demonstrate degenerative change. XR/XR abdomen 1V IMPRESSION: PROMINENT GAS-FILLED SMALL BOWEL LOOPS. GIVEN THE HISTORY, DEVELOPING OBSTRUCTION CANNOT BE EXCLUDED. CONTINUED FOLLOW-UP IS RECOMMENDED. Impression dictated by: Antolin Caldwell Jr., D.O. 08/18/2025 11:32 AM Dictation Location: [place] [address] Electronically authenticated by: [id number] Y Date: 08/18/2025 11:32
--- NOTE | 2025-08-18 10:13 | PM.PN ---
Progress Note: Subjective Subjective Interval history: Following up on the patient. Patient is feeling better. Less abdominal discomfort. Less diarrhea. Less nausea, no vomiting. Exam Narrative Exam Narrative: [pt is awake and alert. oriented to place, time and person HEENT: Pale conjunctiva and NL buccal mucosa Neck: Supple, no tenderness Endocrine: No Thyromegaly. Vascular: No JVD or carotid bruit. Lymphatic: No cervical lymphadenopathy. Chest: CTA no DTP. Heart RRR, no extra sound or murmur. Abd: Soft, diffuse tenderness. Less tender than yesterday. Evidence of recent laparoscopic surgical intervention for her recent hysterectomy completed in [place]. Neuro: A A O. Nl speech, comprehension and attention. Nl and symetrical motor and tone examination through out. []] Constitutional Vital Signs, click to edit/add: Last Vital Signs Temp 98.2 F 08/18/25 08:26 Pulse 81 08/18/25 09:49 Resp 18 08/18/25 08:26 BP 119/71 08/18/25 08:26 Pulse Ox 96 08/18/25 08:26 O2 Del Method Room Air 08/18/25 08:26 Progress Note: Objective Labs Labs: BMP 08/17/25 16:54 Potassium 3.1 L Progress Note: A&P Assessment and Plan (1) Sepsis: (2) C. difficile colitis: Plan Sepsis present on admission C. difficile colitis with significant leukocytosis at 35,000. I suspect that this is considered fulminant C. difficile infection In addition patient is bacteremic with Streptococcus. Could be strep origin. Could be related to her colitis and translocation of bacteria or could be urinary source Urine culture is pending CAT scan does not show any perforation. I started the patient on vancomycin 500 every 6 hours followed by 250 4 times daily I started patient on Flagyl 500 IV every 8 hours. I also started the patient on ceftriaxone 1 g twice a day for Streptococcus bacteremia Repeat blood culture in 24 to 48 hours IV fluid infusion. Monitor recovery over the next 48 to 96 hours. Watch for possibility of toxic megacolon. KUB is ordered to see if there is any free air or megacolon UTI Urine cultures pending. Reasonable to start IV antibiotic for 3 days pending culture report. Known metastatic uterine cancer for which patient had hysterectomy in [place] last week. Patient is scheduled to have a port inserted next week to initiate chemotherapy. I had recommended to hold off on chemotherapy until her C. difficile infection and bacteremia resolve. Anemia, likely caused by recent uterine bleed caused by uterine cancer for which patient had hysterectomy Monitor H&H, no justification for transfusion. Severe hypokalemia, likely caused by diarrhea Potassium supplementation. Magnesium and phosphorus level were checked and they are normal. Glaucoma Continue preadmission eyedrops. I had discussed her case with her and friend at the bedside on 08/17 and 08/18. I provided them information about her disease, prognosis, expectation and trajectory. I answered all of her questions.
[2025-08-18 11:27] LABS: Hematocrit 26.3 % (36.0-48.0); Hemoglobin 8.2 g/dL (12.0-16.0); Immature Granulocytes Abs Auto 0.14 10^3/uL (0.00-0.03); Immature Granulocytes Pct Auto 0.6 % (0.0-0.5); Lymphocytes Absolute Auto 1.7 10^3/uL (1.2-3.8); Mean Corpuscular HGB Conc 31.2 g/dL (29.9-35.2); Mean Corpuscular Hemoglobin 28.3 pg (26.7-34.0); Mean Corpuscular Volume 90.7 fL (81.0-99.0); Platelet Count 575 10^3/uL (150-450); Red Blood Count 2.90 10^6/uL (4.20-5.40); White Blood Count 23.0 10^3/uL (4.0-11.0)
[2025-08-18 11:56] LABS: Anion Gap 10.8; Blood Urea Nitrogen 14.0 mg/dL (7.0-18.0); Calcium 8.2 mg/dL (8.5-10.1); Carbon Dioxide 24.1 mmol/L (21.0-32.0); Chloride 111 mmol/L (98-107); Estimated GFR (African America >60 (>=60 mL/min/1.73m^2); Estimated GFR (Non-African Ame >60 (>=60 mL/min/1.73m^2); Glucose 148 mg/dL (74-106); Sodium 143 mmol/L (136-145)
[2025-08-18 12:00] LABS: Potassium 2.9 mmol/L (3.5-5.1)
[2025-08-18] MEDS: POTASSIUM CHLORIDE 20 MEQ in 0.9 % SODIUM CHLORIDE 250 ML 130 MEQ IV (12:28)
[2025-08-18] MEDS: POTASSIUM CHLORIDE 10 MEQ ER TABLET 40 MEQ PO (12:28)
[2025-08-18] MEDS: OXYCODONE HCL 5 MG TABLET PO (15:17)
[2025-08-18] MEDS: POTASSIUM CHLORIDE 10 MEQ ER TABLET 20 MEQ PO (21:14)
--- OUTSIDE RECORDS SUMMARY | 2025-08-18 23:26 | XMS_ITS | Encounter Summary ---
Author Organization [facility] Address [id number] [address] [place] [address] Care Team Providers Care Survey Workers Supervisor Name Role Phone Bin Sidhu MD Primary Care Provider [phone] Encounter Details DateTypeDepartmentCare Team (Latest Contact Info)Xrdneezbepc83/11/2025Travel Social History Tobacco UseTypesPacks/DayYears UsedDateSmoking Tobacco: NeverSmokeless Tobacco: NeverAlcohol UseStandard Drinks/WeekCommentsNever0 (1 standard drink = 0.6 oz pure alcohol)PHQ-2AnswerDate RecordedTotal Ijqke64310/04/2024UDIT-CAnswerDate RecordedQ1: How often do you have a [...] ValueDate RecordedSex Assigned at BirthNot on fileLegal QkoBkgrju96/08/2025 12:05 AM ESTGender IdentityNot on fileSexual OrientationNot on filedocumented as of this encounter Plan of Treatment DateTypeDepartmentCare Team (Latest Contact Info)Ibwfrtcqfdi18/24/2025Hospital Encounter [facility] - Surgery [address] [place] [phone] Justin Mackey MD [address] [place] [phone] 08/21/2025 8:00 AM ESTInfusion [facility] - Medical Oncology [address] [place] [phone] 08/21/2025 11:00 AM ESTOffice Visit [facility] - Medical Oncology [address] [place] [phone] Melinda Coffey PA [address] [place] [address] 09/10/2025 11:00 AM ESTInfusion [facility] - Medical Oncology [address] [place] [phone] 09/10/2025 1:30 PM ESTOffice Visit [facility], A Department of [facility] [address] [place] [phone] Annita Patton, BUSINESS PROGRAMMER-PUPPY WALKER [address] [facility], [address] [place] [address] 09/11/2025 8:00 AM ESTInfusion [facility] - Medical Oncology [address] [place] [address] NamePriorityAssociated DiagnosesDate/TimeINSERTION PORT A CATH [...] MemberRelationshipSpecialtyStart DateEnd Date Bin Sidhu MD [address] [place] [id number] PCP - GeneralFamily Hlcqivgv05/9/25documented as of this encounter
--- OUTSIDE RECORDS SUMMARY | 2025-08-18 23:26 | XMS_ITS | Encounter Summary ---
Author Organization [facility] tem Address [id number] [address] [place] [address] Care Team Providers Care Tax Preparer Name Role Phone Bin Sidhu MD Primary Care Provider Reason for Referral * Diagnostic Imaging (Emergency) - Pending ReviewSpecialtyDiagnoses / Procedures Referred By ContactReferred To ContactRadiology Diagnoses Endometrial cancer determined by uterine biopsy ([facility] Procedures [place] [address] [place] [address], [address] [place] [address] Phone: tel: fax: Referral IDStatusReasonStart DateExpiration DateVisits RequestedVisits [id number] [id number]/ * Consultation (Urgent) - Pending ReviewSpecialtyDiagnoses / ProceduresReferred By ContactReferred To ContactGeneral Surgery Diagnoses Endometrial cancer determined by uterine biopsy ([facility] [address] [place] [address] [address] [place] [address] Phone: tel: fax: [facility] Physicians General Surgery [address] [place] [address] [place] [address] Phone: tel: fax: Referral Chapin DateExpiration DateVisits RequestedVisits [id number] Review Specialty Services Required Encounter Details DateTypeDepartmentCare Team (Latest Contact Info)Ueqaqgwkpzf66/12/2025Orders Only [facility], A Department of [facility] [address] [place] [phone] Milagros Machado RN Endometrial cancer determined by uterine biopsy ([facility]) (Primary Dx) Social History Tobacco UseTypesPacks/DayYears UsedDateSmoking Tobacco: NeverSmokeless Tobacco: NeverAlcohol UseStandard Drinks/WeekCommentsNever0 (1 standard drink = 0.6 oz pure alcohol)PHQ-2AnswerDate RecordedTotal Xybnp62810/04/2024UDIT-CAnswerDate RecordedQ1: How often do you have a [...] ValueDate RecordedSex Assigned at BirthNot on fileLegal BwvPipthl78/08/2025 12:05 AM ESTGender IdentityNot on fileSexual OrientationNot on filedocumented as of this encounter Mental Status * QuestionAnswerEntry DateAuthorOverall Cognitive PyqfrtSQY65/12/2025 9:18 AM ESTFertig, Toya A, OT/L documented in this encounter Plan of Treatment DateTypeDepartmentCare Team (Latest Contact Info)Coppbwzrpap05/24/2025Hospital Encounter [facility] - Surgery [address] [place] [address] Justin Mackey MD [address] [place] [phone] 08/21/2025 8:00 AM ESTInfusion [facility] - Medical Oncology [address] [place] [phone] 08/21/2025 11:00 AM ESTOffice Visit [facility] - Medical Oncology [address] [place] [phone] Melinda Coffey PA [address] [place], [place] [address] [place] [address] 09/10/2025 11:00 AM ESTInfusion [facility] - Medical Oncology [address] [place] [phone] 09/10/2025 1:30 PM ESTOffice Visit [facility] Gynecology Oncology, A Department of [place] [address] [place] [phone] Annita Patton, CUSHION STUFFER-ACCOUNTS RECEIVABLE CLERK [address] [facility], [address] [place] [address] 09/11/2025 8:00 AM ESTInfusion [facility] - Medical Oncology [address] [place] [phone] NameTypePriorityAssociated DiagnosesOrder SchedulePET CT skull to thighImaging STAT Endometrial cancer determined by uterine biopsy ([facility]) Expected: 08/08/2025, Expires: 08/08/2026NamePriorityAssociated Diagnoses Date/TimeINSERTION PORT A CATH needed for chemotherapy NameTypePriorityAssociated DiagnosesOrder ScheduleProMedica Physicians General Surgery [place], OHOutpatient ReferralRoutine Endometrial cancer determined by uterine biopsy ([facility]) 1 Occurrences starting 08/08/2025 until 08/08/2026documented as of this encounter Goals GoalPatient Goal TypeAssociated ProblemsRecent ProgressPatient-Stated?Author return home Milagros Escobedo RN Note: Evaluation of progress towards goal: patient plans to return home with family support documented as of this encounter Visit Diagnoses Diagnosis Endometrial cancer determined by uterine biopsy ([facility] Primary documented in this encounter Additional Health Concerns AssessmentNoted TimePHQ-9 Depression Total Score: 3:45 PM EST documented as of this encounter Care Teams Team MemberRelationshipSpecialtyStart DateEnd Date Bin Sidhu MD [address] [place] [address] PCP - GeneralFamily Zajhiddc67/9/25documented as of this encounter
--- OUTSIDE RECORDS SUMMARY | 2025-08-18 23:27 | XMS_ITS | Clinical Summary ---
Author Organization [facility] Address [address] [place] [address] Care Team Providers Care Hospital Intern Name Role Phone Unavailable Primary Care Provider Unavailabl e Social History Tobacco UseTypesPacks/DayYears UsedDateSmoking Tobacco: Never Assessed CommentsUnknownSex and Gender InformationValueDate RecordedSex Assigned at Not on fileLegal YqlCbtqca11/15/2023 11:23 PM EDTGender IdentityNot on file Sexual OrientationNot on file Last Filed Vital Signs Vital SignReadingTime TakenCommentsBlood Pressure--Pulse--Temperature-- Respiratory Rate--Oxygen Saturation--Inhaled Oxygen Concentration--Qupjfd88.9 kg (143 lb)09/29/2021 12:00 PM TSPAlhchw443.5 cm (5' 2 )09/29/2021 12:00 PM ESTBody Mass Index26.16009/29/2021 12:00 PM EST Plan of Treatment [place] [address]
--- OUTSIDE RECORDS SUMMARY | 2025-08-18 23:27 | XMS_ITS | Encounter Summary ---
Author Organization [employer] s tem Address [id number] [address] [place] [address] Care Team Providers Care Epoxy Specialist Name Role Phone Unavailable Primary Care Provider Unavailabl e Encounter Details DateTypeDepartmentCare Team (Latest Contact Info)Oypfulqaghr74/08/2025Travel Social History Tobacco UseTypesPacks/DayYears UsedDateSmoking Tobacco: NeverSmokeless Tobacco: NeverAlcohol UseStandard Drinks/WeekCommentsNever0 (1 standard drink = 0.6 oz pure alcohol)PHQ-2AnswerDate RecordedTotal Fvwpg18410/04/2024UDIT-CAnswerDate RecordedQ1: How often do you have a [...] ValueDate RecordedSex Assigned at BirthNot on fileLegal QhpHmatzj30/08/2025 12:05 AM ESTGender IdentityNot on fileSexual OrientationNot on filedocumented as of this encounter Functional Status * AUDIT-C ScoreAnswerDate of UgmzlbupfyJokcfb187/08/2025 3:44 PM Denice Schultz RN * QuestionAnswerDate [...] Denice Schultz RN * QuestionAnswerDate of AssessmentAuthorFunctional AuwapoJcuotdnmpqz55/08/2025 3:42 PM Denice Schultz RN documented as of this encounter Plan of Treatment DateTypeDepartmentCare Team (Latest Contact Info)Xxbxuafxeth52/24/2025Hospital Encounter [facility] - Surgery [address] [place] [address] Justin Mackey MD [address] [place] [phone] 08/21/2025 8:00 AM ESTInfusion [facility] - Medical Oncology [address] [place] [address], [place] [phone] 08/21/2025 11:00 AM ESTOffice Visit [facility] - Medical Oncology [address] [place] [address], [place] [phone] Melinda Coffey PA [address] [facility] [address] [place] [address] 09/10/2025 11:00 AM ESTInfusion [facility] - Medical Oncology [address] [place] [address], [place] [phone] 09/10/2025 1:30 PM ESTOffice Visit [facility], A Department of [address] [place] [phone] Annita Patton, CHIEF CLERK-SCAN COORDINATOR [address] [facility], [address] [place] [address] 09/11/2025 8:00 AM ESTInfusion [facility] - Medical Oncology [address] [place] [phone] NamePriorityAssociated DiagnosesDate/TimeINSERTION PORT A CATH needed for chemotherapy documented as of this encounter Visit Diagnoses Not on filedocumented in this encounter Additional Health Concerns AssessmentNoted TimePHQ-9 Depression Total Score: 3:45 PM EST documented as of this encounter
--- OUTSIDE RECORDS SUMMARY | 2025-08-18 23:27 | XMS_ITS | Clinical Summary ---
Author Organization [employer] [facility] tem Address [address] [place] [address] Care Team Providers Care Wire Straightening Machine Operator Name Role Phone Bin Sidhu MD Primary Care Provider Allergies Active AllergyReactionsCriticalityNoted StygPghsoauaZlvPxkrpyknicPsk20/08/2025 LatexHives,Facial YvtxnkrkIgcchv95/08/2025 Medications MedicationSigDispense QuantityRefillsLast FilledStart DateEnd DateStatus dorzolamide [...] tablet Indications:Endometrial cancer determined by uterine biopsy ([facility])Take 2 tablets (8 mg) by mouth once daily on days 2, 3 and 4. 60 tablet 5Active ondansetron (ZOFRAN) 8 mg tablet Indications:Endometrial cancer determined by uterine biopsy ([facility])Starting on day 3, take 1 tablet by mouth twice daily as needed for nausea or vomiting. 60 tablet 5Active prochlorperazine (COMPAZINE) 10 mg tablet Indications:Endometrial cancer determined by uterine biopsy ([facility])Take 1 tablet by mouth every 6 hours as needed for nausea or vomiting on days 1 and 2. 60 tablet 5Active lidocaine-prilocaine (EMLA) cream Indications:Endometrial cancer determined by uterine biopsy ([facility]), Port-A-Cath in placeApply 1 Application topically as needed for pain (Port Access) for up to 12 days. Apply 2.5 grams to port site one hour prior to access prn. Cover with occlusive dressing as directed. 30 g /5Active ondansetron ODT (ZOFRAN ODT) 4 mg disintegrating tablet Indications:Endometrial cancer ([facility])Dissolve 1 tablet (4 mg total) on tongue every 8 (eight) hours as needed for nausea or vomiting. 20 tablet 5Active oxyCODONE (ROXICODONE) 5 mg immediate release tablet Indications:Pelvic mass,Endometrial cancer ([facility])Take 1 tablet (5 mg total) by mouth [...] mass08/04/2025 Resolved Problems ProblemNoted DateDiagnosed DateResolved DateVaginal vxspkpjy36 Vagina ltbqqdev42 Encounters DateTypeDepartmentCare QuakVtvxnifkpvo40/21/2025Telephone [facility] Gynecology Oncology, A Department of [facility] [address] [place] [phone] Milagros Machado RN 08/17/2025Telephone [facility] Physicians General Surgery [address] [place] [phone] Regina Zarate RMA 08/16/2025 3:00 PM ESTProcedure visit [facility] - [facility] [address] [place] [phone] Preop examination (Primary Dx); Anemia, unspecified type08/16/20252265Uxvupa76/19/2025Telephone [facility] Gynecology Oncology, A Department of [place] [address] [place] [phone] Milagros Machado, JORDYN 08/14/2025Telephone [facility], A Department of [facility] [address] [place] [address] Christi Tsang CMA 08/14/2025Orders Only [facility] Gyne[facility] Oncology, A Department of [facility] [address] [place] [address] Milagros Machado, JORDYN Endometrial cancer determined by uterine biopsy ([facility]) (Primary Dx)08/14/[address] [facility] - Medical Oncology [address] [place] [address] Melinda Coffey PA Post-operative nausea and vomiting (Primary Dx); Pelvic mass; Endometrial cancer (CMS-HCC)08/13/2025Telephone [facility] Gy[facility] On[facility], A Department of [facility] [address] [place] [address] Milagros Machado RN 08/10/2025Orders Only [facility] Gynecology Oncology, A Department of [facility] [address] [place] [address] Desmond Martin RN 08/10/2025Telephone [facility] Gy[facility] On[facility], A Department of [facility] [address] [place] [address] Milagros Machado, JORDYN 08/09/2025Telephone [facility] General Surgery [address] [place] [address] Regina Zarate Lillie 08/08/2025Orders Only [facility] Gyne[facility] Oncology, A Department of [facility] [address] [place] [address] Milagros Machado, JORDYN Endometrial cancer determined by uterine biopsy ([facility]) (Primary Dx)08/07/2025 1:30 PM ESTAnesthesia Event [facility] - Surgery [address] [place] [address]. [place] [address] Mahendra Rico MD Roberts, Alyssa, [facility] 08/07/2025 12:30 PM EST - 08/07/2025 3:00 PM ESTSurgery [facility] - Surgery [address] [place] [phone] Dennis Monson MD DAVINCI HYSTERECTOMY SALPINGO OOPHORECTOMY/RADICAL INTRAPERITONEAL TUMOR JUORYOGRE54/11/7209Xqtyoo86/10/2025Telephone [facility] Gynecology Oncology, A Department of [address] [place] [address] Rocio Alexander MD Imvyuermt75/09/2025Orders Only [facility] [address] [place] [phone] Transcribe, Orders Support User Pain (Primary Dx)08/04/2025 9:[address] [facility] Surgery [address] [place] [phone] Franklin Ramos MD Rayle, Marissa, APRN-BINDER CUTTER HAND 08/04/2025 8:30 AM EST - 08/04/2025 9:40 AM ESTSurgery [facility] - Surgery [address] [place] [address]. [place] [address] Rocio Alexander MD DILATION CURETTAGE [[id number] (CPT??)]08/04/2025 3:32 AM EST - 08/09/2025 5:49 PM ESTHospital Encounter [facility] - GEN [address] [place] [phone] Rocio Alexander MD Endometrial cancer determined by uterine biopsy ([facility]) (Primary Dx); Pelvic mass; Limited mobility; Nausea Discharge Disposition: Home11/08/9932Onpmxy42/06/2025 7:10 PM ESTAncillary Procedure [facility] [address] [place] [address] Pain08/02/2025 6:05 PM ESTAncillary Procedure [facility] [address] [place] [address] Painfrom Last 3 Months Immunizations No known immunizations Family History Medical HistoryRelationNameCommentsCancerFatherCancerMotherRelationNameStatus CommentsFatherDeceasedMotherDeceased Social History Tobacco UseTypesPacks/DayYears UsedDateSmoking Tobacco: NeverSmokeless Tobacco: Never Tobacco Cessation:Counseling Given: Not Answered Alcohol UseStandard Drinks/WeekCommentsNever0 (1 standard drink = 0.6 oz pure alcohol)PHQ-2AnswerDate RecordedTotal Tlrvn00310/04/2024UDIT-CAnswerDate Recorded Q1: How often do you have [...] RecordedIn the past 12 months has the [employer], gas, oil, or water [employer] threatened to shut off services in your [...] InformationValueDate RecordedSex Assigned at BirthNot on fileLegal AiwGdorfb23/08/2025 12:05 AM ESTGender IdentityNot on fileSexual OrientationNot on file Last Filed Vital Signs Vital SignReadingTime TakenCommentsBlood Lvincuta283/7208/09/2025 7:49 AM EST Tqjfg830408/09/2025 7:49 AM UTBRaiveynvbap14.4 ??C (99.4 ??F)08/09/2025 7:49 AM ESTRespiratory Qrum922310/09/2024 7:49 AM ESTOxygen Bjucvzehzm30%08/09/2025 7:49 AM ESTInhaled Oxygen Concentration--Ynsjgq10.3 kg (155 lb)08/16/2025 3:27 PM EST Vjmuxo192.5 cm (5' 2 )08/16/2025 3:27 PM ESTBody Mass Index28.35110/16/2024 3:27 PM EST Plan of Treatment DateTypeDepartmentCare Team (Latest Contact Info)Nidckiixtog47/24/2025Hospital Encounter [facility] - Surgery [address] [place] [phone] Justin Mackey MD [address] [place] [phone] 08/21/2025 8:00 AM ESTInfusion [facility] - Medical Oncology [address] [place] [phone] 08/21/2025 11:00 AM ESTOffice Visit [facility] - Medical Oncology [address] [place] [phone] Melinda Coffey PA [address] [place] [address] 09/10/2025 11:00 AM ESTInfusion [facility] - Medical Oncology [address] [place] [address] 09/10/2025 1:30 PM ESTOffice Visit [facility] On[facility], A Department of [address] [place] [phone] Patton Annita B, RESEARCH SOFTWARE ENGINEER-CARRY ALL DRIVER [address] [facility] [place] [address] 09/11/2025 8:00 AM ESTInfusion [facility] - Medical Oncology [address] [place] [phone] NamePriorityAssociated DiagnosesDate/TimeINSERTION PORT A CATH needed for chemotherapy Health MaintenanceDue DateLast DoneCommentsAdult BMI Follow Up Plan1973 DTaP,Tdap and Td Vaccines (1 - Tdap)1974Zoster (Shingles) Vaccine (1 of 2) 1974RSV ( or age 60+ yrs) (1 - Risk 60-74 years 1-dose series) 2015Fall Risk Bjftbuqit66/05/2020Influenza Oqybbfq5905/28/2025Depression Lzymxmvpv20dult BMI Dpgqqgbml72Tobacco Whdmjpebg49 Goals GoalPatient Goal TypeAssociated ProblemsRecent ProgressPatient-Stated?Author return home Milagros Escobedo, JORDYN Note: Evaluation of progress towards goal: patient plans to return home with family support Autogenerated Goal Care PlanAutogenerated ProblemNoPotts, [employer] Not on file Procedures Procedure NamePriorityDate/TimeAssociated DiagnosisCommentsBASIC METABOLIC PANEL Jlgcdln5508/16/2025 3:52 PM EST Preop examination CBC WITH AUTO EMBHVUPDCSCOGoajnev63/20/2025 3:52 PM EST Preop examination Anemia, unspecified type CROSSMATCH IIVYgnejvd18/15/2025 12:37 AM EST CBC WITH AUTO MGOUKCFIINZFZwwybkh77/13/2025 5:32 AM EST COMPREHENSIVE METABOLIC ZEKLBEkzrite38/13/2025 5:32 AM EST CBC WITH AUTO SBWPLDYASLBCSvkusqg78/12/2025 5:58 AM EST TYPE AND VIJAAQRiaumyt34/12/2025 5:57 AM EST COMPREHENSIVE METABOLIC OKCENYpuizur71/12/2025 5:57 AM EST SURGICAL GGDZHJQBSTduwxad61/11/2025 3:42 PM EST NON-GYNECOLOGIC XSSXHJYTJvrjdbw12/11/2025 2:44 PM EST TRANSFUSE RED BLOOD PXDZIKvggllr49/11/2025 2:23 PM ESTPR AN ELECTIVE ENDOTRACHEAL VEBHAJDonykyy88/11/2025 1:44 PM EST FLEXIBLE BBOZNVUFFFZRZ91/11/2025 1:30 PM EST ENDOMETRIAL CANCER Case Notes [facility] 2W MOVE UP TO 1130 Special Needs MOVE UP TO 1130 DAVINCI HYSTERECTOMY SALPINGO YGJIIBJZFODO27/11/2025 1:30 PM EST ENDOMETRIAL CANCER Case Notes [facility] 2W MOVE UP TO 1130 Special Needs MOVE UP TO 1130 COMPREHENSIVE METABOLIC GJKUQUxvhwff53/11/2025 5:40 AM EST CBC WITH AUTO ZQENZOBHNRXNViypjaa97/11/2025 5:40 AM EST CROSSMATCH FHOJudpndl99/10/2025 6:37 AM ESTCOMPREHENSIVE METABOLIC PANELRoutine 08/06/2025 6:23 AM EST CBC WITH AUTO LTINEDHTNAMFJyhzsvg45/10/2025 6:23 AM EST COMPREHENSIVE METABOLIC KPUIPOtragwh01/09/2025 8:[address] CHEST W KNWRTomjurh77/09/2025 12:11 PM EST CBC WITH AUTO BTOYBDOIISGXWebaijy09/09/2025 4:02 AM EST COMPREHENSIVE METABOLIC IZOPUMgkjzwo30/09/2025 4:02 AM EST CBC WITH AUTO LMRNRDHPZWVIKiieeiu04/08/2025 12:18 PM EST TRANSFUSE RED BLOOD SWGUZRgyfhij21/08/2025 10:00 AM ESTPR AN ELECTIVE ENDOTRACHEAL YWJPZAGvfbyej11/08/2025 9:48 AM EST VA HYSTEROSCOPY,W/ENDO BX08/04/2025 9:37 AM EST vaginal bleed TRANSFUSE RED BLOOD IHRLEAppiwap05/08/2025 8:39 AM ESTREPEATED ABORHRoutine 08/04/2025 8:27 AM ESTREPEATED DDCAJUsfiqnb36/08/2025 7:41 AM EST CROSSMATCH ZGIOuzmmad88/08/2025 5:30 AM EST TYPE AND GDDBZVPianxch08/08/2025 5:30 AM EST LILPCGPTOGMblhknp02/08/2025 5:30 AM EST SGHSWkdumqi29/08/2025 5:30 AM EST PROTIME & UFHRwotouh91/08/2025 5:30 AM EST CBC WITH AUTO JNKQEEKOPMCNNrjzpok08/08/2025 5:30 AM EST COMPREHENSIVE METABOLIC SFVEBLidkspv34/08/2025 5:30 AM EST PULSE OXIMETRY, DPGFMqsdwpx91/08/2025 3:38 AM ESTCT ABDOMEN AND PELVIS W CONT Lbbtdyb1208/02/2025 7:10 PM EST Pain US DUPLEX ABD PELVIS SFMTBplcsjt53/06/2025 6:05 PM EST Pain from Last 3 Months Results * (ABNORMAL) CBC auto differential (08/16/2025 3:52 PM EST) Only the most recent of8 resultswithin the time period is included. ComponentValueRef RangeTest MethodAnalysis TimePerformed AtPathologist Signature WBC30.6(H)4 - 11 10^9/L110/16/2024 4:45 PM [facility] RBC Count4.063.8 - 5.2 10^12/L110/16/2024 4:45 PM [facility]THHemoglobin11.4(L)11.7 - 15.5 g/dL08/16/2025 4:45 PM ESTCLEVELAND CL[facility]IC M[facility]MOUNT HOSPITALHematocrit34.4(L)35 - 47 %08/16/2025 4:45 PM ESTCLEVELAND CLINIC MARYMOUNT HOSPITALMCV8580 - 100 fL08/16/2025 4:45 PM [facility]THMCH28.027 - 34 pg08/16/2025 4:45 PM [facility]MCHC33.032 - 36 g/dL08/16/2025 4:45 PM ESTCLEVELAND CLINIC MARYMOUNT HOSPITALRDW16.6(H)11.5 - 15 %08/16/2025 4:45 PM [facility] S[facility]Platelet Mucjx004(H)150 - 450 10^9/L110/16/2024 4:45 PM EST [facility]ITALMPV8.07 - 12 fL08/16/2025 4:45 PM EST [facility]ITALBands %8%08/16/2025 4:45 PM ESTCLEVELAND CLINIC MARYMOUNT HOSPITALComment:This is an appended report. These results have been appended to a previously preliminary verified report.Neutrophils %81% 08/16/2025 4:45 PM ESTCLEVELAND CLINIC MARYMOUNT HOSPITALComment:This is an appended report. These results have been appended to a previously preliminary verified report.Lymphocytes %4%08/16/2025 4:45 PM [facility]Comment:This is an appended report. These results have been appended to a previously preliminary verified report.Monocytes %7%08/16/2025 4:45 PM EST [facility]ITALComment:This is an appended report. These results have been appended to a previously preliminary verified report. Neutrophils Absolute (M)27.3(H)1.5 - 6.6 10^9/L110/16/2024 4:45 PM [facility]Comment:This is an appended report. These results have been appended to a previously preliminary verified report.Lymphocytes Absolute 1.21.0 - 3.5 10^9/L110/16/2024 4:45 PM [facility] Comment:This is an appended report. These results have been appended to a previously preliminary verified report.Monocytes Absolute2.1(H)0.0 - 0.9 10^9/L 08/16/2025 4:45 PM [facility]Comment:This is an appended report. These results have been appended to a previously preliminary verified report.Polychromasia1+08/16/2025 4:45 PM [facility]Comment:This is an appended report. These results have been appended to a previously preliminary verified report.Elliptocytes1+08/16/2025 4:45 PM EST [facility]ITALComment:This is an appended report. These results have been appended to a previously preliminary verified report. Stomatocytes1+08/16/2025 4:45 PM [facility]Comment: This is an appended report. These results have been appended to a previously preliminary verified report.Differential TypeMANUAL PMFNTPYIRRCF37/20/2025 4:45 PM [facility]Comment:This is an appended report. These results have been appended to a previously preliminary verified report. Specimen (Source)Anatomical Location / LateralityCollection Method / Volume Collection TimeReceived TimeBloodVenous blood / UnknownVenipuncture / Unknown 08/16/2025 3:52 PM EST08/16/2025 3:52 PM EST Narrative Authorizing ProviderResult TypeResult StatusDaapollo Angulo MDLAB BLOOD ORDERABLESFinal ResultPerforming OrganizationAddressCity/State/ZIP CodePhone Number [facility] [address] [place] [address], * (ABNORMAL) Basic Metabolic Panel (08/16/2025 3:52 PM EST)ComponentValueRef RangeTest MethodAnalysis TimePerformed AtPathologist EpmgnwqzgMAKVLC491344 - 146 mmol/L110/16/2024 4:17 PM [facility]THPOTASSIUM 2.6(LL)3.5 - 5.0 mmol/L110/16/2024 4:17 PM [facility]THCHLORIDE10398 - 109 mmol/L110/16/2024 4:17 PM [facility]THCARBON SCRCZRH1947 - 32 mmol/L110/16/2024 4:17 PM [facility]ANION UTS669 - 15 mmol/L110/16/2024 4:17 PM EST [facility]OSPITALBLOOD UREA HKLHPMPV869 - 27 mg/dL08/16/2025 4:17 PM [facility]CREATININE0.700.40 - 1.00 mg/dL 08/16/2025 4:17 PM [facility]Comment:METHOD TRACEABLE TO IDMS TZYGPWBNTOXBFRJ618(H)65 - 99 mg/dL08/16/2025 4:17 PM EST [facility]ITALCALCIUM8.58.5 - 10.5 mg/dL08/16/2025 4:17 PM [facility] SOUTHEGFR Non-Race Dependent>90>=60 ml/min/1.73sq.m110/16/2024 4:17 PM [facility] Comment: Reported eGFR is based on the CKD-EPI 2020 equation that does not use a race coefficient. Specimen (Source)Anatomical Location / LateralityCollection Method / Volume Collection TimeReceived TimeBloodVenous blood / UnknownVenipuncture / Unknown 08/16/2025 3:52 PM EST08/16/2025 3:52 PM EST Narrative Authorizing ProviderResult TypeResult StatusPeter Angulo MDLAB BLOOD ORDERABLESFinal ResultPerforming OrganizationAddressCity/State/ZIP CodePhone Number [facility] [address] [facility] [place] [address], * Crossmatch RBC:Number of Units: 2 (08/11/2025 12:37 AM EST) Only the most recent of3 resultswithin the time period is included. ComponentValueRef RangeTest MethodAnalysis TimePerformed AtPathologist Signature Blood component [id number] BANK - WELLSKYUnit [id number] BANK - WELLSKYUnit ABOOBLOOD BANK - WELLSKYUnit RHPOSBLOOD BANK - [place]LLSKY CrossmatchCompatibleBLOOD BANK - WELLSKYStatus of unitTRANSFUSEDBLOOD BANK - WELLSKYExpiration [id number] BANK - WELLSKYBB Type Uoxnkrp3616BNFOL BANK - WELLSKYSpecimen (Source)Anatomical Location / LateralityCollection Method / VolumeCollection TimeReceived TimeBloodVenous blood / Okbppvl1708/11/2025 12:37 AM EST08/04/2025 5:47 AM EST Narrative Authorizing ProviderResult TypeResult StatusMicssivelisse Still MDBLOOD BANK PRODUCT ORDERABLESEdited Result - FinalPerforming OrganizationAddressCity/State/ZIP Code Phone Number [facility] [place] * (ABNORMAL) Comprehensive metabolic panel (08/09/2025 5:32 AM EST) Only the most recent of7 resultswithin the time period is included. ComponentValueRef RangeTest MethodAnalysis TimePerformed AtPathologist Signature MGSSEI031500 - 146 mmol/L110/09/2024 6:26 AM [facility] LABORATORYPOTASSIUM3.3(L)3.5 - 5.0 mmol/L110/09/2024 6:26 AM [facility] VWRYPCHASOVOTYZWKG55950 - 109 mmol/L110/09/2024 6:26 AM [facility] LABORATORYCARBON XDZAXAI7325 - 32 mmol/L110/09/2024 6:26 AM [facility] LABORATORYANION ISD346 - 15 mmol/L110/09/2024 6:26 AM [facility] LABORATORYBLOOD UREA CLGLWIPY355 - 27 mg/dL08/09/2025 6:26 AM [facility] LABORATORYCREATININE0.650.40 - 1.00 mg/dL08/09/2025 6:26 AM [facility] LABORATORYComment:METHOD TRACEABLE TO IDAR GSDJWOWQPTKBUHU3520 - 99 mg/dL08/09/2025 6:26 AM [facility] LABORATORYCALCIUM8.1(L)8.5 - 10.5 mg/dL08/09/2025 6:26 AM [facility] LABORATORYTOTAL PROTEIN5.4(L)6.0 - 8.0 g/dL08/09/2025 6:26 AM [facility] LABORATORYALBUMIN3.0(L)3.2 - 5.3 g/dL08/09/2025 6:26 AM [facility] LABORATORYALKALINE FTXVZGMRUTL6794 - 130 U/L110/09/2024 6:26 AM [facility] TKZYFGDTLBHRZ61<=41 U/L110/09/2024 6:26 AM [facility] LABORATORYALT6<=31 U/L110/09/2024 6:26 AM [facility] LABORATORYBILIRUBIN,TOTAL0.50.3 - 1.2 mg/dL08/09/2025 6:26 AM [facility] LABORATORYEGFR Non-Race Dependent>90>=60 ml/min/1.73sq.m110/09/2024 6:26 AM [facility] LABORATORYComment: Reported eGFR is based on the CKD-EPI 2020 equation that does not use a race coefficient. Specimen (Source)Anatomical Location / LateralityCollection Method / Volume Collection TimeReceived TimeBloodVenous blood / UnknownVenipuncture / Unknown 08/09/2025 5:32 AM EST08/09/2025 5:54 AM EST Narrative Authorizing ProviderResult TypeResult StatusHala El Ouweini MDLAB BLOOD ORDERABLESFinal ResultPerforming OrganizationAddressCity/State/ZIP CodePhone Number [facility] [address] [place] [address], * Type and screen(includes indirect grady) (08/08/2025 5:57 AM EST) Only the most recent of2 resultswithin the time period is included. ComponentValueRef RangeTest MethodAnalysis TimePerformed AtPathologist Signature ABOO110/08/2024 7:52 AM ESTTTH BB - DOONRAOBYPgohqaxp86/12/2025 7:52 AM ESTTTH BB - WELLSKYAntibody SfajbfWsmrtsgx52/12/2025 7:52 AM ESTTTH BB - WELLSKYSpecimen (Source)Anatomical Location / LateralityCollection Method / VolumeCollection TimeReceived TimeBloodVenous blood / UnknownVenipuncture / Nvxiuez7008/08/2025 5:57 AM EST08/08/2025 6:54 AM EST Narrative Authorizing ProviderResult TypeResult StatusAleia K Catherine MDBLOOD BANK TEST ORDERABLESEdited Result - FinalPerforming OrganizationAddressCity/State/ZIP Code Phone Number [facility] BB - [place] [address] [place] [address], * Surgical Pathology (08/07/2025 3:42 PM EST)ComponentValueRef RangeTest Method Analysis TimePerformed AtPathologist SignatureCase ReportSurgical Pathology Report ? Case: [id number] ? Authorizing Provider: ??Dennis Monson MD ?Collected: ? 08/07/2025 1542 ? Ordering Location: ? [facility] ??Received: ?08/07/2025 1647 ? - Surgery ? Pathologist: ? Darryl Alcantara MD ? Specimens: ?? 1) - Uterus, Fallopian Tube, Ovary, UTERUS, CERVIX, BILATERAL TUBES AND OVARIES ? 2) - Pelvis, LEFT POSTERIOR PELVIS BIOPSY ? 08/14/2025 2:47 PM [facility] LABORATORYFinal Diagnosis1. Uterus, fallopian tubes and ovaries, hysterectomy and bilateral salpingo-oophorectomy: ENDOMETRIOID ADENOCARCINOMA of endometrium, grade 2, with deep myometrial invasion. Carcinoma invades lower uterine segment stroma. Positive cervical stroma, uterine serosa (implants), bilateral mesosalpinx and left fallopian tube. Focal lymphovascular invasion. Endometriosis of right fallopian tube serosa. Negative ovaries. Negative parametrial/paracervical margins. 2. Left posterior pelvis, biopsy: Metastatic carcinoma.08/14/2025 2:47 PM [facility] at 1447 ESTWHI Solutionoss Description1. Received in formalin labeled ANDERSON, uterus, [...] 1 minute Total fixation time: 27 hours (18,ns,[id number], m8.1) . 2. Received in formalin labeled ANDERSON, left posterior pelvis biopsy is pink-lambert feathery and friable soft tissue admixed with hemorrhagic material, 2.5 x 2.5 x 1.2 cm in aggregate. The specimen is submitted entirely in cassettes A- C. (3,ns,[id number], m8.1) 08/14/2025 2:47 PM [facility] LABORATORYSynoptic ChecklistENDOMETRIUM ENDOMETRIUM - All Specimens [...] (no nodes submitted or found)08/14/2025 2:47 PM [facility] LABORATORYEmbedded Vbwonw6208/14/2025 2:47 PM [facility] LABORATORYSpecimen (Source)Anatomical Location / LateralityCollection Method / VolumeCollection TimeReceived TimeTissue (Uterus, Fallopian Tube, Ovary)08/07/2025 3:42 PM EST08/07/2025 4:47 PM ESTComment:Pre-op diagnosis: ENDOMETRIAL CANCERTissue specimen (specimen)Pelvic region / Vhypnua0108/07/2025 3:43 PM EST08/07/2025 4:47 PM ESTComment:Pre-op diagnosis: ENDOMETRIAL CANCER Narrative Authorizing ProviderResult TypeResult StatusAdawild Monson MDPATHOLOGY/CYTOLOGY ORDERABLESFinal ResultPerforming OrganizationAddressCity/State/ZIP CodePhone Number [facility] [address] [place] [address], * Transfuse RBC:1 Unit (08/07/2025 2:56 PM EST) Only the most recent of3 resultswithin the time period is included. Narrative Authorizing ProviderResult TypeResult StatusAleshira Alexander MDBLOOD TRANSFUSION ORDERABLESFinal Result * Cytology non-gynecologic (08/07/2025 2:44 PM EST)ComponentValueRef RangeTest MethodAnalysis TimePerformed AtPathologist SignatureCase ReportMedical Cytology Report ? Case: [id number] ? Authorizing Provider: ??Dennis Monson MD ?Collected: ? 08/07/2025 1444 ? Ordering Location: ? [facility] ??Received: ?08/07/2025 1501 ? - Surgery ? Pathologist: ? Darryl Alcantara MD ? Specimen: ?Pelvis, Pelvis fluid ? 08/14/2025 2:58 PM [facility]ORATORYFinal DiagnosisPelvic fluid: Positive for Carcinoma, rare cells.08/14/2025 2:58 PM [facility] at 1458 ESTGross DescriptionReceived was 20ml of red fluid unfixed, labeled as Anderson, pelvis . CytoLyt added in lab. Specimen placed in formalin at 17:00 and had a total fixation time of 8 hours. 08/14/2025 2:58 PM [facility] LABORATORYEmbedded Images 08/14/2025 2:58 PM [facility] LABORATORYSpecimen (Source) Anatomical Location / LateralityCollection Method / VolumeCollection Time Received TimeFluidPelvic region / Owzgnvp9708/07/2025 2:44 PM EST08/07/2025 3:01 PM ESTComment:Pre-op diagnosis: ENDOMETRIAL CANCER Narrative Authorizing ProviderResult TypeResult StatusAdam Raven Monson MDPATHOLOGY/CYTOLOGY ORDERABLESFinal ResultPerforming OrganizationAddressCity/State/ZIP CodePhone Number [facility] [address] [place] [address], * [place] AN ELECTIVE ENDOTRACHEAL AIRWAY (08/07/2025 1:44 PM EST) Narrative Evelin Jackson SRNA - 08/07/2025 1:44 PM EST EDIN Inman 08/07/2025 2:13 PM Airway Patient location during procedure: OR Urgency: Elective Date/Time: 08/07/2025 1:44 PM Airway not difficult IV In Situ: Peripheral General Information and Staff Service Provider: Mahendra Rico MD BINDER CUTTER HAND: Karime Mann APRN-BINDER CUTTER HAND Student: EDIN Inman Placed by: ??EDIN Inman [...] attempts at approach: 1 Authorizing ProviderResult TypeResult StatusJanolan Rico MDANESTHESIA ORDERABLESFinal Result * CT chest with [...] 7:20 AM Authorizing ProviderResult TypeResult StatusAlexandria Alexandr [facility] ORDERABLESFinal Result * [place] AN ELECTIVE ENDOTRACHEAL AIRWAY (08/04/2025 9:48 AM EST) Leonor Cornell APRN-CRNA - 08/04/2025 9:48 AM EST BELLE Ferguson 08/04/2025 10:02 AM Airway Patient location during procedure: OR Urgency: Elective Date/Time: 08/04/2025 9:48 AM Airway not difficult IV In Situ: Peripheral General Information and Staff Service Provider: Franklin Ramos MD BINDER CUTTER HAND: BELLE Ferguson Placed by: ??BELLE Ferguson Patient [...] 8:27 AM EST Narrative Authorizing ProviderResult TypeResult Ekta Still MDBLOOD BANK TEST ORDERABLESFinal ResultPerforming OrganizationAddressCity/State/ZIP CodePhone Number SUNQUEST * (ABNORMAL) APTT (08/04/2025 5:30 AM EST)ComponentValueRef RangeTest Method Analysis TimePerformed AtPathologist VrdqpxduzYBSF03(L)26 - 37 sec08/04/2025 6:07 AM [facility]ORATORYSpecimen (Source)Anatomical Location / LateralityCollection Method / VolumeCollection TimeReceived Time BloodVenous blood / UnknownVenipuncture / Cggzhnv1908/04/2025 5:30 AM EST 08/04/2025 5:42 AM EST Narrative Authorizing ProviderResult TypeResult Ekta Still MDLAB BLOOD ORDERABLESFinal ResultPerforming OrganizationAddressCity/State/ZIP CodePhone Number [facility] [address] [place] [address], [place] [phone] * Protime & INR (08/04/2025 5:30 AM EST)ComponentValueRef RangeTest Method Analysis TimePerformed AtPathologist QbmmtwnpmXSUQATV26.89.8 - 13.2 sec 08/04/2025 6:07 AM [facility] LABORATORYINR1.00.9 - 1.2 08/04/2025 6:07 AM [facility]ATORYSpecimen (Source) Anatomical Location / LateralityCollection Method / VolumeCollection Time Received TimeBloodVenous blood / UnknownVenipuncture / Ozdzqkj2008/04/2025 5:30 AM EST08/04/2025 5:42 AM EST Narrative Authorizing ProviderResult TypeResult StatusKassidnolan Still MDLAB BLOOD ORDERABLESFinal ResultPerforming OrganizationAddressCity/State/ZIP CodePhone Number [facility] [address] [place] [address], [place] [phone] * Fibrinogen (08/04/2025 5:30 AM EST)ComponentValueRef RangeTest MethodAnalysis TimePerformed AtPathologist OybrstizjMOJAHSEFTN052994 - 480 mg/dL08/04/2025 6:07 AM [facility]ATORYSpecimen (Source)Anatomical Location / LateralityCollection Method / VolumeCollection TimeReceived Time BloodVenous blood / UnknownVenipuncture / Irflxxy2808/04/2025 5:30 AM EST 08/04/2025 5:42 AM EST Narrative Authorizing ProviderResult TypeResult StatusKassidnolan Still MDLAB BLOOD ORDERABLESFinal ResultPerforming OrganizationAddressCity/State/ZIP CodePhone Number [facility] [address] [place] [address], [place] [phone] * CT abdomen and pelvis with contrast [...] Additional Health Concerns Active ProblemsNoted DateDiagnosed DateAutogenerated Kgdcygq8408/10/2025 Insurance Advance Directives * Full Code (Latest Code Status on File) Date ActivatedDate ZbpxplzkmxtFlbuoslc63/8/2025 3:38 AM08/09/2025 7:55 PM Care Teams Team MemberRelationshipSpecialtyStart DateEnd Date Bin Sidhu MD [address] [place] [address] PCP - GeneralFamily Ibbeelhi36/9/25
--- OUTSIDE RECORDS SUMMARY | 2025-08-18 23:27 | XMS_ITS | Encounter Summary ---
Author Organization [facility] tem Address [id number] [address] [place] [address] Care Team Providers Care Blasting Entry Specialist Name Role Phone Bin Sidhu MD Primary Care Provider [phone] Encounter Details DateTypeDepartmentCare Team (Latest Contact Info)Cmvjaaiaiqa00/21/2025Telephone [facility] Gynecology Oncology, A Department of [facility] [address] [facility] [address] [place] [address] Milagros Machado RN Social History Tobacco UseTypesPacks/DayYears UsedDateSmoking Tobacco: NeverSmokeless Tobacco: NeverAlcohol UseStandard Drinks/WeekCommentsNever0 (1 standard drink = 0.6 oz pure alcohol)PHQ-2AnswerDate RecordedTotal Cugzw61310/04/2024UDIT-CAnswerDate RecordedQ1: How often do you have a [...] ValueDate RecordedSex Assigned at BirthNot on fileLegal RedHjjtop88/08/2025 12:05 AM ESTGender IdentityNot on fileSexual OrientationNot on filedocumented as of this encounter Miscellaneous Notes * Telephone Encounter - Milagros Machado RN - 08/17/2025 10:37 AM EST home health scheduler with [facility] general surgery [facility] Tip Stitcher attempted to return call, VM left stating office received VM and they could call iftheir were additional questions or concerns. Per notes, patient was admitted with dx of C. Diff. documented in this encounter Plan of Treatment DateTypeDepartmentCare Team (Latest Contact Info)Yocmoufvuia41/24/2025Hospital Encounter [facility] - Surgery [address] [place] [address] Justin Mackey MD [address] [place] [address] 08/21/2025 8:00 AM ESTInfusion [facility] - Medical Oncology [address] [place] [address] 08/21/2025 11:00 AM ESTOffice Visit [facility] [place] [facility] - Medical Oncology [address] [place] [phone] Melinda Coffey, [place] [address] [facility] [place] [address] 09/10/2025 11:00 AM ESTInfusion [facility] [place] [facility] - Medical Oncology [address] [place] [phone] 09/10/2025 1:30 PM ESTOffice Visit [facility], A Department of [facility] [address] [address] [place] [phone] Annita Patton, HOSPICE MANAGER-[facility] [address] [facility] [place] [address] 09/11/2025 8:00 AM ESTInfusion [facility] [place] [facility] - Medical Oncology [address] [place] [phone] NamePriorityAssociated DiagnosesDate/TimeINSERTION PORT A CATH needed for chemotherapy documented as of this encounter Goals GoalPatient Goal TypeAssociated ProblemsRecent ProgressPatient-Stated?Author return home Milagros Escobedo RN Note: Evaluation of progress towards goal: patient plans to return home with family support Autogenerated Goal Care PlanAutogenerated ProblemNoPotts, Elizabethdocumented as of this encounter Visit Diagnoses Not on filedocumented in this encounter Additional Health Concerns Active ProblemsNoted DateDiagnosed DateAutogenerated Fxhufvx2608/10/2025ssessment Noted TimePHQ-9 Depression Total Score: 3:45 PM ESTdocumented as of this encounter Care Teams Team MemberRelationshipSpecialtyStart DateEnd Date Bin Sidhu MD [address] [place] [address] PCP - GeneralFamily Domahxxr63/9/25documented as of this encounter
--- OUTSIDE RECORDS SUMMARY | 2025-08-18 23:27 | XMS_ITS | Encounter Summary ---
Author Organization [facility] tem Address [id number] [address] [place] [address] Care Team Providers Care Product Safety Tester Name Role Phone Bin Sidhu MD Primary Care Provider [phone] Encounter Details DateTypeDepartmentCare Team (Latest Contact Info)Whpolnzugtd35/19/2025Telephone [facility] Gynecology Oncology, A Department of [facility] [address] [facility] [address] [place] [address] Milagros Machado RN Social History Tobacco UseTypesPacks/DayYears UsedDateSmoking Tobacco: NeverSmokeless Tobacco: NeverAlcohol UseStandard Drinks/WeekCommentsNever0 (1 standard drink = 0.6 oz pure alcohol)PHQ-2AnswerDate RecordedTotal Xgafe32610/04/2024UDIT-CAnswerDate RecordedQ1: How often do you have a [...] ValueDate RecordedSex Assigned at BirthNot on fileLegal EndHvxzcq35/08/2025 12:05 AM ESTGender IdentityNot on fileSexual OrientationNot on filedocumented as of this encounter Miscellaneous Notes * Telephone Encounter - Milagros Machado RN - 08/15/2025 4:04 PM EST Patient contacted office stating PET CT is scheduled for 08/28. Patient also stated that the RN she scheduled PET CT with advised her to try metamucil for her diarrhea. Senior Business Analyst advised patient that metamucil is usually used for constipation but has been known to help with diarrhea as well and that she could try it it if she wanted to. Patient verbalized her understanding. documented in this encounter Plan of Treatment DateTypeDepartmentCare Team (Latest Contact Info)Wyjsstpbmks32/24/2025Hospital Encounter [facility] - Surgery [address] [place] [address] Justin Mackey MD [address] [place] [phone] 08/21/2025 8:00 AM ESTInfusion [facility] - Medical Oncology [address] [place] [address], [place] [address] 08/21/2025 11:00 AM ESTOffice Visit [facility] [place] [facility] - Medical Oncology [address] [place] [address], [place] [address] Melinda Coffey PA [address] [facility] [address] [place] [address] 09/10/2025 11:00 AM ESTInfusion [facility]ola [place] [facility] - Medical Oncology [address] [place] [address], [place] [address] 09/10/2025 1:30 PM ESTOffice Visit [facility], A Department of [address] [place] [phone] Annita Patton, SCIENTIFIC RESEARCH ASSOCIATE-QUAD STAYER [address] [facility] [place] [address] 09/11/2025 8:00 AM ESTInfusion [facility]ola [place] [facility] - Medical Oncology [address] [place] [address], [place] [address] NamePriorityAssociated DiagnosesDate/TimeINSERTION PORT A CATH needed for chemotherapy documented as of this encounter Goals GoalPatient Goal TypeAssociated ProblemsRecent ProgressPatient-Stated?Author return home Milagros Escobedo RN Note: Evaluation of progress towards goal: patient plans to return home with family support Autogenerated Goal Care PlanAutogenerated ProblemNoPotts, Elizabethdocumented as of this encounter Visit Diagnoses Not on filedocumented in this encounter Additional Health Concerns Active ProblemsNoted DateDiagnosed DateAutogenerated Lzgnnna7208/10/2025ssessment Noted TimePHQ-9 Depression Total Score: 3:45 PM ESTdocumented as of this encounter Care Teams Team MemberRelationshipSpecialtyStart DateEnd Date Bin Sidhu MD [address] [place] [address] PCP - GeneralFamily Sicnewcd07/9/25documented as of this encounter
--- OUTSIDE RECORDS SUMMARY | 2025-08-18 23:27 | XMS_ITS | Encounter Summary ---
Author Organization [facility] [facility] tem Address [id number] [address] [place] [address] Care Team Providers Care Strainer Mill Operator Name Role Phone Bin Sidhu MD Primary Care Provider [phone] Encounter Details DateTypeDepartmentCare Team (Latest Contact Info)Eoecrtvjbmb48/09/2025Orders Only [facility] External Film Storage [facility] [place] [address] Transcribe, Orders Support User Pain (Primary Dx) Social History Tobacco UseTypesPacks/DayYears UsedDateSmoking Tobacco: NeverSmokeless Tobacco: NeverAlcohol UseStandard Drinks/WeekCommentsNever0 (1 standard drink = 0.6 oz pure alcohol)PHQ-2AnswerDate RecordedTotal Xfrrf02210/04/2024UDIT-CAnswerDate RecordedQ1: How often do you have a [...] ValueDate RecordedSex Assigned at BirthNot on fileLegal UuzXxqgzc65/08/2025 12:05 AM ESTGender IdentityNot on fileSexual OrientationNot on filedocumented as of this encounter Functional Status documented as of this encounter Mental Status * QuestionAnswerEntry DateAuthorOverall Cognitive TwyscoBXI94/12/2025 9:18 AM Toya Morrell A, OT/L documented in this encounter Plan of Treatment DateTypeDepartmentCare Team (Latest Contact Info)Ehbqxkmxlot47/24/2025Hospital Encounter [facility] - Surgery [address] [place] [phone] Justin Mackey MD [address] [place] [phone] 08/21/2025 8:00 AM ESTInfusion [facility]ola [facility] - Medical Oncology [address] [place] [address] 08/21/2025 11:00 AM ESTOffice Visit [facility] [place] [facility] - Medical Oncology [address] [place] [phone] Melinda Coffey PA [address] [place] [address] 09/10/2025 11:00 AM ESTInfusion [facility]ola [place] [facility] - Medical Oncology [address] [place] [phone] 09/10/2025 1:30 PM ESTOffice Visit [facility] On[facility], A Department of [address] [place] [phone] Annita Ptaton, HOT BILLET SHEAR OPERATOR-AIRLINE CAPTAIN [address] [place] [address], [address] [place] [address] 09/11/2025 8:00 AM ESTInfusion [facility] [place] [facility] - Medical Oncology [address] [place] [phone] NamePriorityAssociated DiagnosesDate/TimeINSERTION PORT A CATH needed for [...] Team MemberRelationshipSpecialtyStart DateEnd Date Bin Sidhu MD [address] [place] [address] PCP - GeneralFamily Epogqnir55/9/25documented as of this encounter
--- OUTSIDE RECORDS SUMMARY | 2025-08-18 23:27 | XMS_ITS | Encounter Summary ---
Author Organization [facility] tem Address [id number] [address] [place] [address] Care Team Providers Care Consumer Safety Officer Name Role Phone Bin Sidhu MD Primary Care Provider [phone] Encounter Details DateTypeDepartmentCare Team (Latest Contact Info)Hdvvlkkddym44/17/2025Telephone [facility] Gynecology Oncology, A Department of [facility] [address] [facility] [address] [place] [address] Milagros Machado RN Social History Tobacco UseTypesPacks/DayYears UsedDateSmoking Tobacco: NeverSmokeless Tobacco: NeverAlcohol UseStandard Drinks/WeekCommentsNever0 (1 standard drink = 0.6 oz pure alcohol)PHQ-2AnswerDate RecordedTotal Pyhrq84810/04/2024UDIT-CAnswerDate RecordedQ1: How often do you have a [...] ValueDate RecordedSex Assigned at BirthNot on fileLegal JfkGaktlw83/08/2025 12:05 AM ESTGender IdentityNot on fileSexual OrientationNot on filedocumented as of this encounter Miscellaneous Notes * Telephone Encounter - Milagros Machado RN - 08/13/2025 1:47 PM EST Client Partner contacted patient and advised her she can take 50 mg benadryl [address] to decrease risk of reaction per Melinda Coffey. Patient verbalized her understanding and states she will use OTC benadryl. She is aware that she will need a electric mule driver. documented in this encounter Plan of Treatment DateTypeDepartmentCare Team (Latest Contact Info)Hbtbaxctjbv47/24/2025Hospital Encounter [facility] - Surgery [address] [place] [address] Justin Mackey MD [address] [place] [address] 08/21/2025 8:00 AM ESTInfusion [facility] - Medical Oncology [address] [place] [address] 08/21/2025 11:00 AM ESTOffice Visit [facility] [place] [facility] - Medical Oncology [address] [place] [phone] Melinda Coffey PA [address] [facility] [facility] [address] [place] [address] 09/10/2025 11:00 AM ESTInfusion [facility] [place] [facility] - Medical Oncology [address] [place] [phone] 09/10/2025 1:30 PM ESTOffice Visit [facility] Gynecology Oncology, A Department of [facility] [address] [facility] [facility] [facility] [address] [place] [phone] Annita Patton, LIBRARY CONSULTANT-REPROGRAPHICS TECHNICIAN [address] [facility] [place] [address] 09/11/2025 8:00 AM ESTInfusion [facility] [place] [facility] - Medical Oncology [address] [place] [phone] NamePriorityAssociated DiagnosesDate/TimeINSERTION PORT A CATH needed for chemotherapy documented as of this encounter Goals GoalPatient Goal TypeAssociated ProblemsRecent ProgressPatient-Stated?Author return home Milagros Escobedo RN Note: Evaluation of progress towards goal: patient plans to return home with family support Autogenerated Goal Care PlanAutogenerated ProblemNoPotts, Elizabethdocumented as of this encounter Visit Diagnoses Not on filedocumented in this encounter Additional Health Concerns Active ProblemsNoted DateDiagnosed DateAutogenerated Qzutmuz7508/10/2025ssessment Noted TimePHQ-9 Depression Total Score: 3:45 PM ESTdocumented as of this encounter Care Teams Team MemberRelationshipSpecialtyStart DateEnd Date Bin Sidhu MD [address] [place] [address] PCP - GeneralFamily Eaudcdtz58/9/25documented as of this encounter
--- OUTSIDE RECORDS SUMMARY | 2025-08-18 23:27 | XMS_ITS | Encounter Summary ---
Author Organization [employer] [facility] tem Address [facility] [place] [id number] [address] [place] [address] Care Team Providers Care Client Relations Representative Name Role Phone Bin Sidhu MD Primary Care Provider [phone] Encounter Details DateTypeDepartmentCare Team (Latest Contact Info)Fgibiznbzfq53/18/2025Orders Only [facility] - Medical Oncology [address] [place] [address] Melinda Coffey PA [address] [place] [address] Post-operative nausea and vomiting (Primary Dx); Pelvic mass; Endometrial cancer ([facility]) Social History Tobacco UseTypesPacks/DayYears UsedDateSmoking Tobacco: NeverSmokeless Tobacco: NeverAlcohol UseStandard Drinks/WeekCommentsNever0 (1 standard drink = 0.6 oz pure alcohol)PHQ-2AnswerDate RecordedTotal Svczb90810/04/2024UDIT-CAnswerDate RecordedQ1: How often do you have a [...] ValueDate RecordedSex Assigned at BirthNot on fileLegal OruDtyxkg83/08/2025 12:05 AM ESTGender IdentityNot on fileSexual OrientationNot on filedocumented as of this encounter Plan of Treatment DateTypeDepartmentCare Team (Latest Contact Info)Uwztagnlstw54/24/2025Hospital Encounter [facility] - [facility] [address] [place] [phone] Justin Mackey MD [address] [place] [address] 08/21/2025 8:00 AM ESTInfusion [facility] - Medical Oncology [address] [place] [address] 08/21/2025 11:00 AM ESTOffice Visit [facility]ola [facility] [facility] - Medical Oncology [address] [place] [phone] Melinda Coffey PA [address] [place] [address] 09/10/2025 11:00 AM ESTInfusion Paola [place] [facility] - Medical Oncology [address] [place] [phone] 09/10/2025 1:30 PM ESTOffice Visit [facility], A Department of [address] [place] [address] Annita Patton, THREADER OPERATOR-SOLDERING INSPECTOR [address] [place] [address], [address] [place] [address] 09/11/2025 8:00 AM ESTInfusion [facility]ola [place] [facility] - Medical Oncology [address] [place] [phone] NamePriorityAssociated DiagnosesDate/TimeINSERTION PORT A CATH needed [...] mass or lump, unspecified site Endometrial cancer ([facility]) Malignant neoplasm of corpus uteri, except isthmus documented in this encounter Additional Health Concerns Active ProblemsNoted DateDiagnosed DateAutogenerated Qgbzcdl42/14/2025Assessment Noted TimePHQ-9 Depression Total Score: 3:45 PM ESTdocumented as of this encounter Care Teams Team MemberRelationshipSpecialtyStart DateEnd Date Bin Sidhu MD [address] [place] [address] PCP - GeneralFamily Vvivcjgn23/9/25documented as of this encounter
--- OUTSIDE RECORDS SUMMARY | 2025-08-18 23:27 | XMS_ITS | Encounter Summary ---
Author Organization [facility] tem Address [facility] [place]-[id number] [address] [place] [address] Care Team Providers Care Cut Roll Machine Operator Name Role Phone Bin Sidhu MD Primary Care Provider [phone] Encounter Details DateTypeDepartmentCare Team (Latest Contact Info)Qjzwkesyhtr52/18/2025Telephone [facility] Gynecology Oncology, A Department of [facility] [address] [facility] [address] [place] [address] Christi Tsang, ERASMO Social History Tobacco UseTypesPacks/DayYears UsedDateSmoking Tobacco: NeverSmokeless Tobacco: NeverAlcohol UseStandard Drinks/WeekCommentsNever0 (1 standard drink = 0.6 oz pure alcohol)PHQ-2AnswerDate RecordedTotal Mmwex67710/04/2024UDIT-CAnswerDate RecordedQ1: How often do you have a [...] ValueDate RecordedSex Assigned at BirthNot on fileLegal PndFyeomb65/08/2025 12:05 AM ESTGender IdentityNot on fileSexual OrientationNot on filedocumented as of this encounter Miscellaneous Notes * Telephone Encounter - Christi Tsang CMA - 08/14/2025 3:55 PM EST Moon, from [facility], called regarding wheelchair order that was [...] either by themselves or with caregiver assistance. Director Ship to relay this information to the appropriate staff member(s) for further review. * Telephone Encounter - RE Fay - 08/14/2025 3:55 PM EST Yes we can put that eval documentation in our next progress note documented in this encounter Plan of Treatment DateTypeDepartmentCare Team (Latest Contact Info)Zruoamcnkhq52/24/2025Hospital Encounter [facility] - Surgery [address] [place] [phone] Justin Mackey MD [address] [place] [phone] 08/21/2025 8:00 AM ESTInfusion [facility] - Medical Oncology [address] [place] [phone] 08/21/2025 11:00 AM ESTOffice Visit [facility] - Medical Oncology [address] [place] [address], [place] [phone] Melinda Coffey PA [address] [facility] [address] [place] [address] 09/10/2025 11:00 AM ESTInfusion [facility] - Medical Oncology [address] [place] [phone] 09/10/2025 1:30 PM ESTOffice Visit [facility] Gynecology Oncology, A Department of [address] [place] [phone] Annita Patton, CIVIL CAD TECH-GROUND CONTROL APPROACH TECHNICIAN [address] [place] [address], [address] [place] [address] 09/11/2025 8:00 AM ESTInfusion [facility] - Medical Oncology [address] [place] [phone] NamePriorityAssociated DiagnosesDate/TimeINSERTION PORT A CATH needed for chemotherapy documented as of this encounter Goals GoalPatient Goal TypeAssociated ProblemsRecent ProgressPatient-Stated?Author return home Milagros Escobedo RN Note: Evaluation of progress towards goal: patient plans to return home with family support Autogenerated Goal Care PlanAutogenerated ProblemNoPotts, Elizabethdocumented as of this encounter Visit Diagnoses Not on filedocumented in this encounter Additional Health Concerns Active ProblemsNoted DateDiagnosed DateAutogenerated Qonnsdc0708/10/2025ssessment Noted TimePHQ-9 Depression Total Score: 3:45 PM ESTdocumented as of this encounter Care Teams Team MemberRelationshipSpecialtyStart DateEnd Date Bin Sidhu MD [address] [place] [address] PCP - GeneralFamily Ingprubx23/9/25documented as of this encounter
--- OUTSIDE RECORDS SUMMARY | 2025-08-18 23:27 | XMS_ITS | Encounter Summary ---
Author Organization [facility] tem Address [facility][id number] [address] [place] [address] Care Team Providers Care Tubular Products Fabricator Name Role Phone Bin Sidhu MD Primary Care Provider [phone] Reason for Visit * ReasonOnset QkozWqjiioioTdclmyqwk28/10/2025 Encounter Details DateTypeDepartmentCare Team (Latest Contact Info)Jvgzqcivjpc02/10/2025Telephone [facility] Gynecology Oncology, A Department of [address] [place] [address] Rocio Alexander MD [address] [place] [address], [address] [place] [address] Procedure Social History Tobacco UseTypesPacks/DayYears UsedDateSmoking Tobacco: NeverSmokeless Tobacco: NeverAlcohol UseStandard Drinks/WeekCommentsNever0 (1 standard drink = 0.6 oz pure alcohol)PHQ-2AnswerDate RecordedTotal Vjvqe44810/04/2024UDIT-CAnswerDate RecordedQ1: How often do you have a [...] ValueDate RecordedSex Assigned at BirthNot on fileLegal CduKhdlyz05/08/2025 12:05 AM ESTGender IdentityNot on fileSexual OrientationNot [...] help! AC * Telephone Encounter - Emelia Villalobosbernardolaura - 08/06/2025 11:58 AM EST Diesel Automotive Technician notes no availability time at [facility] or on 08/08/15, Catherine was notified and she states Erm[facility] salvationist and see if he can add for Wednesday08/07/25, ok per Ermias, surgery scheduled as follows; [facility] Ermias Wednesday08/07/25@12:30pm RATLH/BSO/SLND APT-PT CURRENTLY INPATIENT post op-08/17/25@3:00pm. documented in this encounter Plan of Treatment DateTypeDepartmentCare Team (Latest Contact Info)Ntqtnstrgtd97/24/2025Hospital Encounter [facility] - Surgery [address] [place] [address] Justin Mackey MD [address] [place] [phone] 08/21/2025 8:00 AM ESTInfusion [facility] - Medical Oncology [address] [place] [phone] 08/21/2025 11:00 AM ESTOffice Visit [facility] - Medical Oncology [address] [place] [phone] Melinda Coffey PA [address] [place] [address] 09/10/2025 11:00 AM ESTInfusion [facility] - Medical Oncology [address] [place] [phone] 09/10/2025 1:30 PM ESTOffice Visit [facility] Gynecology Oncology, A Department of [facility] [address] [place] [phone] Annita Patton, FIELD SERVICE POULTRY TECHNICIAN-PRELIMINARY SCHOOL PSYCHOLOGIST [address] [facility], [address] [place] [address] 09/11/2025 8:00 AM ESTInfusion [facility] - Medical Oncology [address] [place] [address] NamePriorityAssociated DiagnosesDate/TimeINSERTION PORT A CATH [...] Team MemberRelationshipSpecialtyStart DateEnd Date Bin Sidhu MD [address] [place], [place] [phone] PCP - GeneralFamily Mezlobvu10/9/25documented as of this encounter
--- OUTSIDE RECORDS SUMMARY | 2025-08-18 23:27 | XMS_ITS ---
Author Organization [facility] tem Address [id number] [address] [place] [address] Care Team Providers Care Quartz Miner Name Role Phone Bin Sidhu MD Primary Care Provider [phone] Active Problems ProblemNoted DateDiagnosed DateEndometrial cancer determined by uterine biopsy 08/08/2025Pelvic mass08/04/2025 Current Treatment and Therapy Plans Adult oncology/infusion center flush orders* Plan Start Date:08/08/2025 Plan Provider:RE Fay Linked Problems Endometrial cancer determine d by uterine biopsy ([facility]) Treatment Medications No medications scheduled. Oncology hydration and supportive care* Plan Start Date:08/08/2025 Plan Provider:RE Fay Linked Problems Endometrial cancer determine d by uterine biopsy ([facility]) Treatment Medications No medications scheduled. Oncology standing electrolyte replacement* Plan Start Date:08/08/2025 Plan Provider:RE Fay Linked Problems Endometrial cancer determine d by uterine biopsy ([facility]) Treatment Medications No medications scheduled. OP ADVANCED ENDOMETRIAL PEMBROLIZUMAB / PACLItaxel / CARBOplatin X 6 CYCLES THEN PEMBROLIZUMAB ALONE* Plan Start Date:08/07/2025 Plan Provider:Rocio Alexander MD Linked Problems Endometrial cancer determine d by uterine biopsy ([facility]) Treatment MedicationsCurrent Day (Day 1, Cycle 1 [...] found. Resolved Problems ProblemNoted DateDiagnosed DateResolved DateVaginal whyxsxes99 Vagina mtfobzqj72
--- OUTSIDE RECORDS SUMMARY | 2025-08-18 23:27 | XMS_ITS | Encounter Summary ---
Author Organization [facility] tem Address [facility]-[id number] [address] [place] [address] Care Team Providers Care Substitute Crossing Guard Name Role Phone Bin Sidhu MD Primary Care Provider [phone] Encounter Details DateTypeDepartmentCare Team (Latest Contact Info)Ihgejsujddq45/14/2025Orders Only [facility] Gynecology Oncology, A Department of [facility] [address] [facility] [address] [place] [address] Desmond Martin RN Social History Tobacco UseTypesPacks/DayYears UsedDateSmoking Tobacco: NeverSmokeless Tobacco: NeverAlcohol UseStandard Drinks/WeekCommentsNever0 (1 standard drink = 0.6 oz pure alcohol)PHQ-2AnswerDate RecordedTotal Dahhc18510/04/2024UDIT-CAnswerDate RecordedQ1: How often do you have a [...] ValueDate RecordedSex Assigned at BirthNot on fileLegal QbfXdnldf57/08/2025 12:05 AM ESTGender IdentityNot on fileSexual OrientationNot on filedocumented as of this encounter Progress Notes * Desmond Martin RN - 08/10/2025 11:08 AM EST Clinicals faxed to [facility] at [phone]. documented in this encounter Plan of Treatment DateTypeDepartmentCare Team (Latest Contact Info)Vshmstbxvqu42/24/2025Hospital [facility] [address] [place] [address] Justin Mackey MD [address] [place] [address] 08/21/2025 8:00 AM ESTInfusion [facility] - Medical Oncology [address] [place] [phone] 08/21/2025 11:00 AM ESTOffice Visit [facility] - Medical Oncology [address] [place] [phone] Melinda Coffey PA [address] [address] [address] [place] [address] 09/10/2025 11:00 AM ESTInfusion [facility] - Medical Oncology [facility] [place] [address] 09/10/2025 1:30 PM ESTOffice Visit [facility] Gyne[facility] Oncology, A Department of [address] [place] [phone] Annita Patton, BRANCH GENERAL MANAGER-GRAZING AIDE [address] [facility], [address] [place] [address] 09/11/2025 8:00 AM ESTInfusion [facility] - Medical Oncology [address] [place] [phone] NamePriorityAssociated DiagnosesDate/TimeINSERTION PORT A CATH needed [...] Additional Health Concerns Active ProblemsNoted DateDiagnosed DateAutogenerated Dbnwyae0208/10/2025ssessment Noted TimePHQ-9 Depression Total Score: 3:45 PM ESTdocumented as of this encounter Care Teams Team MemberRelationshipSpecialtyStart DateEnd Date Bin Sidhu MD [address] [place] [address] PCP - GeneralFamily Kfwlhrzi35/9/25documented as of this encounter
--- OUTSIDE RECORDS SUMMARY | 2025-08-18 23:27 | XMS_ITS | Encounter Summary ---
Author Organization [facility] tem Address [id number] [address] [place] [address] Care Team Providers Care Manager Land Name Role Phone Bin Sidhu MD Primary Care Provider [phone] Encounter Details DateTypeDepartmentCare Team (Latest Contact Info)Odqvuticsoy45/20/2025Travel Social History Tobacco UseTypesPacks/DayYears UsedDateSmoking Tobacco: NeverSmokeless Tobacco: NeverAlcohol UseStandard Drinks/WeekCommentsNever0 (1 standard drink = 0.6 oz pure alcohol)PHQ-2AnswerDate RecordedTotal Fcupf15410/04/2024UDIT-CAnswerDate RecordedQ1: How often do you have a [...] ValueDate RecordedSex Assigned at BirthNot on fileLegal NyhAjwkjn70/08/2025 12:05 AM ESTGender IdentityNot on fileSexual OrientationNot on filedocumented as of this encounter Plan of Treatment DateTypeDepartmentCare Team (Latest Contact Info)Tbmrujwjlgw42/24/2025Hospital Encounter [facility] - Surgery [address] [place] [phone] Justin Mackey MD [address] [place] [phone] 08/21/2025 8:00 AM ESTInfusion Paola [facility] - Medical Oncology [address] [place] [phone] 08/21/2025 11:00 AM ESTOffice Visit [facility] - Medical Oncology [address] [place] [phone] Melinda Coffey PA [address] [place] [address] 09/10/2025 11:00 AM ESTInfusion [facility] - Medical Oncology [address] [place] [phone] 09/10/2025 1:30 PM ESTOffice Visit [facility] Gynecology Oncology, A Department of [facility] [address] [place] [address] Patton Annita B, RADARMAN-LOAN INTERVIEWER [address] [facility], [address] [place] [address] 09/11/2025 8:00 AM ESTInfusion [facility]ola [facility] - Medical Oncology [address] [place] [address] NamePriorityAssociated DiagnosesDate/TimeINSERTION PORT A CATH [...] Additional Health Concerns Active ProblemsNoted DateDiagnosed DateAutogenerated Rdmqrkv6208/10/2025ssessment Noted TimePHQ-9 Depression Total Score: 3:45 PM ESTdocumented as of this encounter Care Teams Team MemberRelationshipSpecialtyStart DateEnd Date Bin Sidhu MD [address] [place] [address] PCP - GeneralFamily Wnxbhtis72/9/25documented as of this encounter
--- OUTSIDE RECORDS SUMMARY | 2025-08-18 23:28 | XMS_ITS | Clinical Summary ---
Author Organization [facility] Address [address] [place], [place] [address] Care Team Providers Care Lead Application Architect Name Role Phone Bin Sidhu MD Primary Care Provider Allergies Active AllergyReactionsCriticalityNoted GnkmOubjqxckIyzzmCrtwUifn18/31/2009 Medications MedicationSigDispense QuantityRefillsLast FilledStart DateEnd DateStatus TETRACYCLINE 500 MG CAP Indications:Knee joint vwuz859ctive naproxen(NAPROSYN 500 MG TAB) Indications:Knee joint pain,Knee bursitis1 PPO BID with food 60 ctive Social History Tobacco UseTypesPacks/DayYears UsedDateSmoking Tobacco: Never Assessed CommentsUnknownSex and Gender InformationValueDate RecordedSex Assigned at Not on fileLegal DpnZkubkn46/02/2012 8:21 AM ESTGender IdentityNot on fileSexual OrientationNot on file Plan of Treatment Health MaintenanceDue DateLast DoneCommentsAnxiety Ltxojwqjz56/05/1973Depression Gbtpbwlea76/05/1973Hepatitis C Mifbhbuxl19/05/1973DTaP,Tdap,Td Vaccine (1 - Tdap)1974Mammogram Toxqaumvn11/05/1995CT Zjdiitvhcaxn40/05/2000Cologuard (FIT-DNA)03/31/20001501Xeuqhlcyipy55/05/2000Colorectal Cancer Nafqaohmt76/05/2000 Diabetes Gcrefaqlj83/05/2000Fecal Occult Blood2000Lipid Screening 03/31/20000549Pstahgvwnmxym67/05/2000Pneumococcal Vaccine: 50+ (1 of 1 - PCV) 2005Shingrix Vaccine (1 of 2)2005Bone Density Ulphxyrvb15/05/2020 Advance Directive Njcdeyfjfk30/01/2025ovid-19 Vaccine ( - 2024-26 season) 2025Influenza Vaccine (#1)2025RSV Vaccine (1 - 1-dose 75+ series) 2030 Insurance Care Teams Team MemberRelationshipSpecialtyStart DateEnd Date Bin Sidhu MD [address] [place] [address] [facility]05/10/09
--- OUTSIDE RECORDS SUMMARY | 2025-08-18 23:28 | XMS_ITS | Encounter Summary ---
Author Organization [facility] tem Address [id number] [address] [place] [address] Care Team Providers Care Vehicle Dismantler Name Role Phone Bin Sidhu MD Primary Care Provider [phone] Encounter Details DateTypeDepartmentCare Team (Latest Contact Info)Fylttxmthjb64/13/2025Telephone [facility] [address] [place] [phone] Regina Zarate RMA Social History Tobacco UseTypesPacks/DayYears UsedDateSmoking Tobacco: NeverSmokeless Tobacco: NeverAlcohol UseStandard Drinks/WeekCommentsNever0 (1 standard drink = 0.6 oz pure alcohol)PHQ-2AnswerDate RecordedTotal Ubphd81810/04/2024UDIT-CAnswerDate RecordedQ1: How often do you have a [...] ValueDate RecordedSex Assigned at BirthNot on fileLegal YezDbkpgl35/08/2025 12:05 AM ESTGender IdentityNot on fileSexual OrientationNot on filedocumented as of this encounter Miscellaneous Notes * Telephone Encounter - ULI Blanchard - 08/09/2025 11:57 AM EST Images from the original note were not included. 08/09/25 I called patient and left a voicemail to call me to schedule a port placement. I left my phone number and extension on her voicemail. ULI Blanchard / vascular surgery physician 08/09/25 MD Carmelina Donaldson; Cheryl Back, PORTAL DEVELOPER-TOOL ROOM MACHINIST Cc: Dafne Colmenares; ULI Blanchard Yes please [...] Plan of Treatment DateTypeDepartmentCare Team (Latest Contact Info)Zuhtwpoamzs08/24/2025Hospital Encounter [facility] - Surgery [address] [place] [phone] Justin Mackey MD [address] [place] [phone] 08/21/2025 8:00 AM ESTInfusion [facility]ola [facility] [place] [facility] - Medical Oncology [address] [place] [phone] 08/21/2025 11:00 AM ESTOffice Visit [facility] - Medical Oncology [address] [place] [phone] Melinda Coffey PA [address] [facility] [address] [place] [address] 09/10/2025 11:00 AM ESTInfusion [facility]ola [place] [facility] - Medical Oncology [address] [place] [phone] 09/10/2025 1:30 PM ESTOffice Visit [facility] Gynecology Oncology, A Department of [address] [place] [phone] Annita Patton, PORTAL DEVELOPER-TOOL ROOM MACHINIST [address] [facility], [address] [place] [address] 09/11/2025 8:00 AM ESTInfusion Paola [facility]ington [facility] - Medical Oncology [address] [place] [phone] NamePriorityAssociated DiagnosesDate/TimeINSERTION PORT A CATH needed for [...] Team MemberRelationshipSpecialtyStart DateEnd Date Bin Sidhu MD [address] [place] [address] PCP - GeneralFamily Uqutpbjt10/9/25documented as of this encounter
--- OUTSIDE RECORDS SUMMARY | 2025-08-18 23:28 | XMS_ITS | Encounter Summary ---
Author Organization [facility] Address [facility]-[id number] [address] [place] [address] Care Team Providers Care Medical Record Transcriber Name Role Phone Bin Sidhu MD Primary Care Provider [phone] Encounter Details DateTypeDepartmentCare Team (Latest Contact Info)Kjdjnmwfybm63/21/2025Telephone [facility] [address] [place] [phone] Regina Zarate RMA Social History Tobacco UseTypesPacks/DayYears UsedDateSmoking Tobacco: NeverSmokeless Tobacco: NeverAlcohol UseStandard Drinks/WeekCommentsNever0 (1 standard drink = 0.6 oz pure alcohol)PHQ-2AnswerDate RecordedTotal Sbwur40910/04/2024UDIT-CAnswerDate RecordedQ1: How often do you have a [...] ValueDate RecordedSex Assigned at BirthNot on fileLegal MclOafxia83/08/2025 12:05 AM ESTGender IdentityNot on fileSexual OrientationNot on filedocumented as of this encounter Miscellaneous Notes * Telephone Encounter - ULI Blanchard - 08/17/2025 9:02 AM EST 08/17/25 Zara from Gynecology Oncology returned my call. She stated she is going to call [facility] and get the records for the patient. The patient will probably be on antibiotics so I will inform Dr. Mackey when she would like to reschedule the port and if the patient will need to have complete the antibiotics before the port procedure. ULI Blanchard / surgery specialist 08/17/25 9:30 am I called [facility] [place] [phone] and spoke with Arline in oncology - I informed her of the information pertaining to Eunice's case. That Eunice went to the [facility] ER and admitted, she will be admitted for at least 3 days. I also told her I called & left a message for [facility] [employer] Drill Press Operator. Oncology [phone]. to let them know the status of Eunice per the patient's request. Arline said she would also send a message to them, as well ULI Blanchard / surgery specialist 08/17/25 8:15 am I called Eunice on her cell phone - she was admitted to the [facility]. She stated she was told she will be there for at least 3 days. Her diagnosis right now is C-diff. I called Verito at [facility] and cancelled Eunice's port which was scheduled for 08/20/[address] Mackey. She also wanted meto call oncology to inform them. I told her I would. ULI Blanchard / surgery specialist 08/17/25 7:39 am This patient had several abnormal labs done in PAT yesterday, one with a critically low potassium of 2.6. She was instructed to go to the ER and stated she was going to [facility]. She was instructed to call your office today, if able, to inquire on proceeding with procedure on 08/20. Lillian Chauhan RN / [facility] PAT documented in this encounter Plan of Treatment DateTypeDepartmentCare Team (Latest Contact Info)Meuuzdaesgk44/24/2025Hospital Encounter [facility] - Surgery [address] [place] [phone] Justin Mackey MD [address] [place] [phone] 08/21/2025 8:00 AM ESTInfusion Paola Ellington [facility] - Medical Oncology [address] [place] [phone] 08/21/2025 11:00 AM ESTOffice Visit Paola Ellington [facility] - Medical Oncology [address] [place] [phone] Melinda Coffey PA [address] [place] [address] 09/10/2025 11:00 AM ESTInfusion Paola Ellington [facility] - Medical Oncology [address] [place] [phone] 09/10/2025 1:30 PM ESTOffice Visit [facility], A Department of [facility] [address] [place] [phone] Annita Patton, CLINICAL LAB CLERK-ASSET PROTECTION MANAGER 5[address] [facility], [address] [place] [address] 09/11/2025 8:00 AM ESTInfusion Paola Ellington [facility] - Medical Oncology [address] [place] [phone] NamePriorityAssociated DiagnosesDate/TimeINSERTION PORT A CATH needed [...] Additional Health Concerns Active ProblemsNoted DateDiagnosed DateAutogenerated Kwrnlkp5208/10/2025ssessment Noted TimePHQ-9 Depression Total Score: 3:45 PM ESTdocumented as of this encounter Care Teams Team MemberRelationshipSpecialtyStart DateEnd Date Bin Sidhu MD [address] [place], [place] [phone] PCP - GeneralFamily Meywjpmp93/9/25documented as of this encounter
--- OUTSIDE RECORDS SUMMARY | 2025-08-18 23:28 | XMS_ITS | Encounter Summary ---
Author Organization [facility] tem Address [id number] [address] [place] [address] Care Team Providers Care Acupressurist Name Role Phone Bin Sidhu MD Primary Care Provider [phone] Encounter Details DateTypeDepartmentCare Team (Latest Contact Info)Bftxecgsfvu82/14/2025Telephone [facility] Gynecology Oncology, A Department of [facility] [address] [facility] [address] [place] [address] Milagros Machado RN Social History Tobacco UseTypesPacks/DayYears UsedDateSmoking Tobacco: NeverSmokeless Tobacco: NeverAlcohol UseStandard Drinks/WeekCommentsNever0 (1 standard drink = 0.6 oz pure alcohol)PHQ-2AnswerDate RecordedTotal Icbbp56110/04/2024UDIT-CAnswerDate RecordedQ1: How often do you have a [...] ValueDate RecordedSex Assigned at BirthNot on fileLegal FgmSmbdvj18/08/2025 12:05 AM ESTGender IdentityNot on fileSexual OrientationNot [...] level [] Language barrier. Patient speaks: [] [employer] present. [] Anxiety [] Cognitive barriers [...] of Treatment: [] Oral, patient's home [] [facility] [] [facility]) [] [facility] [] [facility] [x[facility] [] [facility] [] [facility] Inpatient Unit [] [facility] Interventional Radiology [] [facility] [] [facility] [] [facility] [] [facility] [] [facility] [] [facility] Interventional Radiology [x] The patient was [...] Medications [x] The patient was instructed to pickle cutter prescriptions prior to starting treatment. Supportive care [...] [x] Office and emergency Contact Information [] [facility]: A Guide to Living with Cancer* [x] OncoLink Antineoplastic Agent drug information [] Lexicomp Antineoplastic drug information [] NCCN Disease Specific Information (type in name): [] Neutropenia Wallet Card [] Immunotherapy Wallet Card [] Emla Cream Wallet Card [] Chemotherapy Calendar [] In addition to the side effect information included in the [facility] Guidebook, I have provided the patient with handouts on (type in name): [] Other: Patient Understanding Eunice Anderson and her family were provided with an opportunity to ask any remaining questions. The patient was able to teach back the following information: [x] Diagnosis [x] Goals of Therapy [x] Names of antineoplastic medications [x] Supportive care medications, indications, dose, and frequency [x] Short and intermediate teacher side effects, including indications to notify provider [...] family [x] Time spent: 90 minutes *[facility] [place]: A Guide to Living with Cancer ?? [...] Plan of Treatment DateTypeDepartmentCare Team (Latest Contact Info)Ydxjcpeaktp88/24/2025Hospital Encounter [facility] - Surgery [address] [place] [phone] Justin Mackey MD [address] [place] [phone] 08/21/2025 8:00 AM ESTInfusion [facility] - Medical Oncology [address] [place] [phone] 08/21/2025 11:00 AM ESTOffice Visit [facility] - Medical Oncology [address] [place] [address], [place] [address] Melinda Coffey PA [address] [place], [place] [address] [place] [address] 09/10/2025 11:00 AM ESTInfusion [facility] - Medical Oncology [address] [place] [phone] 09/10/2025 1:30 PM ESTOffice Visit [facility] Gy[facility], A Department of [address] [place] [phone] Annita Patton, ARMORED CAR DRIVER-UPSET OPERATOR [address] [place] [address], [address] [place] [address] 09/11/2025 8:00 AM ESTInfusion [facility] - Medical Oncology [address] [place] [address] NamePriorityAssociated DiagnosesDate/TimeINSERTION PORT A CATH needed for chemotherapy documented as of this encounter Goals GoalPatient Goal TypeAssociated ProblemsRecent ProgressPatient-Stated?Author return home Milagros Escobedo RN Note: Evaluation of progress towards goal: patient plans to return home with family support Autogenerated Goal Care PlanAutogenerated ProblemNoPotts, Elizabethdocumented as of this encounter Visit Diagnoses Diagnosis Endometrial cancer determined by uterine biopsy ([facility])- Primary Port-A-Cath in place documented in this encounter Additional Health Concerns Active ProblemsNoted DateDiagnosed DateAutogenerated Tnnvsbg3608/10/2025ssessment Noted TimePHQ-9 Depression Total Score: 3:45 PM ESTdocumented as of this encounter Care Teams Team MemberRelationshipSpecialtyStart DateEnd Date Bin Sidhu MD [address] [place] [address] PCP - GeneralFamily Iwsmnnnj39/9/25documented as of this encounter
--- OUTSIDE RECORDS SUMMARY | 2025-08-18 23:28 | XMS_ITS | Encounter Summary ---
Author Organization [facility] tem Address [id number] [address] [place] [address] Care Team Providers Care Farm Machinery Assembler Name Role Phone Bin Sidhu MD Primary Care Provider [phone] Reason for Referral * Consultation (Routine) - Pending ReviewSpecialtyDiagnoses / ProceduresReferred By ContactReferred To Contact Diagnoses Endometrial cancer determined by uterine biopsy ([facility]) Melinda Coffey PA [address] [place] [address] Phone: tel: fax: Referral IDStatusReasonStart DateExpiration DateVisits RequestedVisits [id number] Review Service Not Available In-House Encounter Details DateTypeDepartmentCare Team (Latest Contact Info)Auimcifgxsf21/18/2025Orders Only [facility] Gynecology Oncology, A Department of [facility] [address] [place] [address] Milagros Machado RN Endometrial cancer determined by uterine biopsy ([facility]) (Primary Dx) Social History Tobacco UseTypesPacks/DayYears UsedDateSmoking Tobacco: NeverSmokeless Tobacco: NeverAlcohol UseStandard Drinks/WeekCommentsNever0 (1 standard drink = 0.6 oz pure alcohol)PHQ-2AnswerDate RecordedTotal Bwunm41210/04/2024UDIT-CAnswerDate RecordedQ1: How often do you have a [...] ValueDate RecordedSex Assigned at BirthNot on fileLegal EgkLyliih18/08/2025 12:05 AM ESTGender IdentityNot on fileSexual OrientationNot on filedocumented as of this encounter Progress Notes * Milagros Machado RN - 08/14/2025 12:12 PM EST Palliative care order, face sheet, and progress notes faxed to [facility]. Order for wheelchair, face sheet, and progress note faxed to [facility] in [place]. documented in this encounter Plan of Treatment DateTypeDepartmentCare Team (Latest Contact Info)Rbovefzrmne62/24/2025Hospital Encounter [facility] - Surgery [address] [place] [phone] Justin Mackey MD [address] [place] [phone] 08/21/2025 8:00 AM ESTInfusion [facility] - Medical Oncology [address] [place] [address], [place] [phone] 08/21/2025 11:00 AM ESTOffice Visit [facility] - Medical Oncology [address] [place] [address], [place] [phone] Melinda Coffey PA [address] [place] [address] [address] [place] [address] 09/10/2025 11:00 AM ESTInfusion [facility] - Medical Oncology [address] [place] [address], [place] [phone] 09/10/2025 1:30 PM ESTOffice Visit [facility] On[facility], A Department of [address] [place] [phone] Annita Patton, SUPERVISOR PASTE MIXING-BLAST FURNACE CHECKER [address] [place] [address], [address] [place] [address] 09/11/2025 8:00 AM ESTInfusion [facility] - Medical Oncology [address] [place] [phone] NamePriorityAssociated DiagnosesDate/TimeINSERTION PORT A CATH needed for chemotherapy NameTypePriorityAssociated DiagnosesOrder ScheduleAmbulatory referral to Palliative Medicine Home Visits (Non-[facility])Outpatient ReferralRoutine Endometrial cancer determined by uterine biopsy ([facility]) 1 Occurrences starting 08/14/2025 until 08/14/2026documented as of this encounter Goals GoalPatient Goal TypeAssociated ProblemsRecent ProgressPatient-Stated?Author return home Milagros Escobedo RN Note: Evaluation of progress towards goal: patient plans to return home with family support Autogenerated Goal Care PlanAutogenerated ProblemNoPotts, Elizabethdocumented as of this encounter Visit Diagnoses Diagnosis Endometrial cancer determined by uterine biopsy ([facility])- Primary documented in this encounter Additional Health Concerns Active ProblemsNoted DateDiagnosed DateAutogenerated Wpcnqdd41/14/2025Assessment Noted TimePHQ-9 Depression Total Score: 3:45 PM ESTdocumented as of this encounter Care Teams Team MemberRelationshipSpecialtyStart DateEnd Date Bin Sidhu MD [address] [place] [address] PCP - GeneralFamily Fcyfiesu61/9/25documented as of this encounter
[2025-08-19] VITALS (22 sets, daily range): BP systolic 111–130; BP diastolic 68–83; PULSE 69–92; TEMP 36.4–36.9; O2SAT 94–98
[2025-08-19] MEDS: METRONIDAZOLE/SODIUM CHLORIDE 500 MG/100 ML PREMIX 100 MG IV ×3 (02:33→17:11)
[2025-08-19] MEDS: DORZOLAMIDE HCL 2% OP SOL 200 DROP/10 ML BOTTLE OP ×3 (06:20→21:46)
[2025-08-19 07:14] LABS: Hematocrit 29.6 % (36.0-48.0); Hemoglobin 9.2 g/dL (12.0-16.0); Mean Corpuscular HGB Conc 31.1 g/dL (29.9-35.2); Mean Corpuscular Hemoglobin 28.4 pg (26.7-34.0); Mean Corpuscular Volume 91.4 fL (81.0-99.0); Platelet Count 569 10^3/uL (150-450); Red Blood Count 3.24 10^6/uL (4.20-5.40); White Blood Count 16.8 10^3/uL (4.0-11.0)
[2025-08-19 07:34] LABS: Alanine Aminotransferase 10 U/L (14-59); Albumin Globulin Ratio 0.8; Albumin Level 2.4 g/dL (3.4-5.0); Alkaline Phosphatase 71 U/L (46-116); Anion Gap 14.0; Aspartate Amino Transferase 12 U/L (15-37); Blood Urea Nitrogen 9.0 mg/dL (7.0-18.0); Calcium 8.3 mg/dL (8.5-10.1); Carbon Dioxide 21.8 mmol/L (21.0-32.0); Chloride 111 mmol/L (98-107); Estimated GFR (African America >60 (>=60 mL/min/1.73m^2); Estimated GFR (Non-African Ame >60 (>=60 mL/min/1.73m^2); Globulin 3.2 g/dL; Glucose 125 mg/dL (74-106); Magnesium 1.9 mg/dL (1.8-2.4); Potassium 3.8 mmol/L (3.5-5.1); Sodium 143 mmol/L (136-145); Total Protein 5.6 g/dL (6.4-8.2)
[2025-08-19] MEDS: MIDODRINE HCL 5 MG TABLET PO (08:39)
[2025-08-19] MEDS: POTASSIUM CHLORIDE 10 MEQ ER TABLET 20 MEQ PO ×3 (08:39→21:45)
[2025-08-19] MEDS: ENOXAPARIN SODIUM 40 MG/0.4 ML SYRINGE SUBQ (08:39)
[2025-08-19] MEDS: VANCOMYCIN HCL 7,500 MG/150 ML BOTTLE 250 MG PO ×4 (08:39→21:44)
[2025-08-19] MEDS: TIMOLOL MALEATE 0.5% OP SOL 100 DROPS/5 ML BOTTLE 1 DROP OP ×2 (08:40→21:45)
[2025-08-19] MEDS: SOD PHOSPHATE,MONOBASIC-DIBAS 30 MMOL in 0.9 % SODIUM CHLORIDE 250 ML 43.333 MMOL IV (08:40)
--- NOTE | 2025-08-19 09:00 | PM.PN ---
Progress Note: Subjective Subjective Interval history: Persistent diffuse abdominal discomfort. Persistent diarrhea. Nausea but no vomiting. Exam Narrative Exam Narrative: [pt is awake and alert. oriented to place, time and person HEENT: Pale conjunctiva and NL buccal mucosa Neck: Supple, no tenderness Endocrine: No Thyromegaly. Vascular: No JVD or carotid bruit. Lymphatic: No cervical lymphadenopathy. Chest: CTA no DTP. Heart RRR, no extra sound or murmur. Abd: Soft, diffuse mild tenderness. Less tender compared to admission state. No guarding, no rebound. Evidence of recent laparoscopic surgical intervention for her recent hysterectomy completed in [place]. Neuro: A A O. Nl speech, comprehension and attention. Nl and symetrical motor and tone examination through out. []] Constitutional Vital Signs, click to edit/add: Last Vital Signs Temp 98.1 F 08/19/25 08:59 Pulse 92 H 08/19/25 08:59 Resp 18 08/19/25 08:59 BP 123/83 08/19/25 08:59 Pulse Ox 98 08/19/25 08:59 O2 Del Method Room Air 08/19/25 08:59 Progress Note: Objective Labs Labs: Short CBC 08/18/25 08/19/25 Range/Units 11:00 07:05 WBC 23.0 H 16.8 H (4.0-11.0) 10^3/uL Hgb 8.2 L 9.2 L (12.0-16.0) g/dL Hct 26.3 L 29.6 L (36.0-48.0) % Plt Count 575 H 569 H (150-450) 10^3/uL BMP 08/18/25 08/19/25 11:00 07:05 Sodium 143 143 Potassium 2.9 L* 3.8 Chloride 111 H 111 H Carbon Dioxide 24.1 21.8 BUN 14.0 9.0 Creatinine 0.71 0.51 L Glucose 148 H 125 H Calcium 8.2 L 8.3 L Liver Function 08/19/25 Range/Units 07:05 Total Bilirubin 0.2 (0.2-1.0) mg/dL AST 12 L (15-37) U/L ALT 10 L (14-59) U/L Alkaline Phosphatase 71 (46-116) U/L Albumin 2.4 L (3.4-5.0) g/dL Progress Note: A&P Assessment and Plan (1) Sepsis: (2) C. difficile colitis: Plan Sepsis present on admission with early septic shock. White count is coming down to 16,000, hypotension had resolved C. difficile fulminant colitis with significant leukocytosis at 35,000. White count is down to 16,000 Streptococcus bacteremia. Could be translocation of gut bacteria. Unlikely urine the source as the urine growing gram-negative organism. UTI. Urine culture is pending. Thus far the culture is showing a gram-negative organism CAT scan does not show any perforation. Repeat x-ray does not show any toxic megacolon. Continue vancomycin orally Continue ceftriaxone intravenously pending final blood and urine culture report Repeat blood culture today. Known metastatic uterine cancer for which patient had hysterectomy in [place] last week. Patient is scheduled to have a port inserted next week to initiate chemotherapy. I had recommended to hold off on chemotherapy until her C. difficile infection and bacteremia resolve. Anemia, likely caused by recent uterine bleed caused by uterine cancer for which patient had hysterectomy Monitor H&H, no justification for transfusion. Severe hypokalemia, likely caused by diarrhea Corrected with potassium supplementation Hypophosphatemia Sodium phosphate infusion DVT prophylaxis Lovenox subcu Glaucoma Continue preadmission eyedrops. I had discussed her case with her and friend at the bedside on 08/17 and 08/18. I provided them information about her disease, prognosis, expectation and trajectory. I answered all of her questions.
[2025-08-19] MEDS: MAGNESIUM SULFATE/D5W 1 GM/100 ML PREMIX IV (15:10)
[2025-08-19] MEDS: 0.9 % SODIUM CHLORIDE 250 ML 10 ML IV (17:11)
[2025-08-20] VITALS (23 sets, daily range): BP systolic 119–129; BP diastolic 69–74; PULSE 75–89; TEMP 36.6–37.4; O2SAT 93–98
[2025-08-20] MEDS: METRONIDAZOLE/SODIUM CHLORIDE 500 MG/100 ML PREMIX 100 MG IV ×3 (02:01→17:01)
[2025-08-20] MEDS: DORZOLAMIDE HCL 2% OP SOL 200 DROP/10 ML BOTTLE OP ×3 (05:09→21:26)
[2025-08-20] MEDS: VANCOMYCIN HCL 7,500 MG/150 ML BOTTLE 250 MG PO ×4 (05:10→21:26)
[2025-08-20 05:27] LABS: Hematocrit 32.7 % (36.0-48.0); Hemoglobin 9.8 g/dL (12.0-16.0); Mean Corpuscular HGB Conc 30.0 g/dL (29.9-35.2); Mean Corpuscular Hemoglobin 27.3 pg (26.7-34.0); Mean Corpuscular Volume 91.1 fL (81.0-99.0); Platelet Count 723 10^3/uL (150-450); Red Blood Count 3.59 10^6/uL (4.20-5.40); White Blood Count 13.5 10^3/uL (4.0-11.0)
[2025-08-20 05:44] LABS: Anion Gap 11.0; Blood Urea Nitrogen 5.0 mg/dL (7.0-18.0); Calcium 8.4 mg/dL (8.5-10.1); Carbon Dioxide 23.8 mmol/L (21.0-32.0); Chloride 112 mmol/L (98-107); Estimated GFR (African America >60 (>=60 mL/min/1.73m^2); Estimated GFR (Non-African Ame >60 (>=60 mL/min/1.73m^2); Glucose 119 mg/dL (74-106); Potassium 3.8 mmol/L (3.5-5.1); Sodium 143 mmol/L (136-145)
--- NOTE | 2025-08-20 07:40 | CM.NOTE ---
Addendum entered by Carolina Sawyer 08/20/25 14:00: Dr. Robin aware of urine culture results. Original Note: Rounds made with Dr. Robin, discussed plan of care with pt. Continue treatment as ordered, no discharge today.
[2025-08-20] MEDS: POTASSIUM CHLORIDE 10 MEQ ER TABLET 20 MEQ PO (07:42)
[2025-08-20] MEDS: MIDODRINE HCL 5 MG TABLET PO (07:42)
[2025-08-20] MEDS: ENOXAPARIN SODIUM 40 MG/0.4 ML SYRINGE SUBQ (08:00)
[2025-08-20] MEDS: TIMOLOL MALEATE 0.5% OP SOL 100 DROPS/5 ML BOTTLE 1 DROP OP ×2 (08:01→21:26)
--- NOTE | 2025-08-20 08:53 | PM.PN ---
Progress Note: Subjective Subjective Interval history: Persistent diffuse abdominal discomfort. Persistent diarrhea. Much less abdominal intensity and diarrhea compared to admission state. Nausea but no vomiting. Exam Narrative Exam Narrative: [pt is awake and alert. oriented to place, time and person HEENT: Pale conjunctiva and NL buccal mucosa Neck: Supple, no tenderness Endocrine: No Thyromegaly. Vascular: No JVD or carotid bruit. Lymphatic: No cervical lymphadenopathy. Chest: CTA no DTP. Heart RRR, no extra sound or murmur. Abd: Soft, diffuse mild tenderness. Less tender compared to admission state. No guarding, no rebound. Evidence of recent laparoscopic surgical intervention for her recent hysterectomy completed in [place]. Neuro: A A O. Nl speech, comprehension and attention. Nl and symetrical motor and tone examination through out. []] Constitutional Vital Signs, click to edit/add: Last Vital Signs Temp 98.1 F 08/20/25 07:49 Pulse 76 08/20/25 07:57 Resp 20 08/20/25 07:49 BP 126/69 08/20/25 07:49 Pulse Ox 97 08/20/25 07:49 O2 Del Method Room Air 08/20/25 07:49 Progress Note: Objective Labs Labs: Short CBC 08/20/25 Range/Units 05:13 WBC 13.5 H (4.0-11.0) 10^3/uL Hgb 9.8 L (12.0-16.0) g/dL Hct 32.7 L (36.0-48.0) % Plt Count 723 H (150-450) 10^3/uL BMP 08/20/25 05:13 Sodium 143 Potassium 3.8 Chloride 112 H Carbon Dioxide 23.8 BUN 5.0 L Creatinine 0.45 L Glucose 119 H Calcium 8.4 L Progress Note: A&P Assessment and Plan (1) Sepsis: (2) C. difficile colitis: Plan Sepsis present on admission with early septic shock. White count is coming down to 13,000, hypotension had resolved C. difficile fulminant colitis with significant leukocytosis at 35,000. White count is down to 13,000. Continue oral vancomycin and IV Flagyl Streptococcus MITIS bacteremia. Could be translocation of gut bacteria. Continue ceftriaxone E. coli UTI. Continue ceftriaxone CAT scan does not show any perforation. Repeat x-ray does not show any toxic megacolon. Repeat blood culture is pending. Known metastatic uterine cancer for which patient had hysterectomy in [place] last week. Patient is scheduled to have a port inserted next week to initiate chemotherapy. I had recommended to hold off on chemotherapy until her C. difficile infection and bacteremia resolve. Anemia, likely caused by recent uterine bleed caused by uterine cancer for which patient had hysterectomy Monitor H&H, no justification for transfusion. Severe hypokalemia, likely caused by diarrhea Corrected with potassium supplementation Hypophosphatemia Status post repletion Thrombocytosis secondary to active infection It will improve as we get control of the infection. DVT prophylaxis Lovenox subcu Glaucoma Continue preadmission eyedrops. I had discussed her case with her and friend at the bedside on 08/17 and 08/18 and on 08/20. I provided them information about her disease, prognosis, expectation and trajectory. I answered all of her questions.
[2025-08-20] MEDS: 0.9 % SODIUM CHLORIDE 1,000 ML 70 ML IV (09:27)
--- NOTE | 2025-08-20 10:51 | CM.NOTE ---
2nd Important Message From Medicare discussed with pt, pt denies questions or concerns.
--- NOTE | 2025-08-20 10:53 | SWNOTE1 ---
SW spoke to case management and pt did ask Dr. Robin about a wheelchair, at this time Dr. Robin is not prescribing wheelchair for patient.
--- NOTE | 2025-08-20 10:55 | SWNOTE1 ---
SW reviewed Physical therapy note and pt had no needs identified at discharge. SW to follow as needed.
[2025-08-20] MEDS: MIDODRINE HCL 5 MG TABLET 2.5 MG PO ×2 (11:16→16:08)
[2025-08-20] MEDS: DICYCLOMINE HCL 10 MG CAPSULE PO ×2 (13:00→21:26)
--- NOTE | 2025-08-20 13:36 | SWNOTE1 ---
SW stopped back in to follow up with patient. Pt had a friend in the room, SW to stop back later today.
--- NOTE | 2025-08-20 22:56 | PC.NURSE ---
mucus like stool
[2025-08-21] VITALS (20 sets, daily range): BP systolic 118–124; BP diastolic 72–77; PULSE 74–86; TEMP 36.6–37; O2SAT 94–96
[2025-08-21] MEDS: METRONIDAZOLE/SODIUM CHLORIDE 500 MG/100 ML PREMIX 100 MG IV ×3 (01:14→17:41)
--- NOTE | 2025-08-21 01:45 | PC.NURSE ---
loose mucus stool
[2025-08-21] MEDS: VANCOMYCIN HCL 7,500 MG/150 ML BOTTLE 250 MG PO ×4 (05:26→22:00)
[2025-08-21] MEDS: DICYCLOMINE HCL 10 MG CAPSULE PO ×3 (05:26→21:59)
[2025-08-21] MEDS: DORZOLAMIDE HCL 2% OP SOL 200 DROP/10 ML BOTTLE OP ×3 (05:26→22:00)
[2025-08-21 05:52] LABS: Hematocrit 29.0 % (36.0-48.0); Hemoglobin 8.8 g/dL (12.0-16.0); Mean Corpuscular HGB Conc 30.3 g/dL (29.9-35.2); Mean Corpuscular Hemoglobin 27.8 pg (26.7-34.0); Mean Corpuscular Volume 91.5 fL (81.0-99.0); Platelet Count 644 10^3/uL (150-450); Red Blood Count 3.17 10^6/uL (4.20-5.40); White Blood Count 11.6 10^3/uL (4.0-11.0)
[2025-08-21 06:03] LABS: Anion Gap 10.1; Blood Urea Nitrogen 3.0 mg/dL (7.0-18.0); Calcium 8.3 mg/dL (8.5-10.1); Carbon Dioxide 25.2 mmol/L (21.0-32.0); Chloride 111 mmol/L (98-107); Estimated GFR (African America >60 (>=60 mL/min/1.73m^2); Estimated GFR (Non-African Ame >60 (>=60 mL/min/1.73m^2); Glucose 107 mg/dL (74-106); Potassium 3.3 mmol/L (3.5-5.1); Sodium 143 mmol/L (136-145)
[2025-08-21 06:11] LABS: Magnesium 1.9 mg/dL (1.8-2.4)
--- NOTE | 2025-08-21 08:30 | CM.NOTE ---
Rounds made with Dr. Robin, discussed plan of care with pt. No discharge today, continue treatment as ordered.
[2025-08-21] MEDS: ENOXAPARIN SODIUM 40 MG/0.4 ML SYRINGE SUBQ (09:03)
[2025-08-21] MEDS: MIDODRINE HCL 5 MG TABLET 2.5 MG PO ×2 (09:03→17:41)
[2025-08-21] MEDS: POTASSIUM CHLORIDE 10 MEQ ER TABLET 40 MEQ PO (09:05)
[2025-08-21] MEDS: TIMOLOL MALEATE 0.5% OP SOL 100 DROPS/5 ML BOTTLE 1 DROP OP ×2 (09:05→22:00)
[2025-08-21] MEDS: 0.9 % SODIUM CHLORIDE 250 ML 10 ML IV (09:16)
--- NOTE | 2025-08-21 09:39 | PM.PN ---
Progress Note: Subjective Subjective Interval history: Patient continues to feel better. Significant improvement of frequency of diarrhea as well as abdominal pain. Stool is firming up. No melena. No nausea or vomiting Exam Narrative Exam Narrative: [pt is awake and alert. oriented to place, time and person HEENT: Pale conjunctiva and NL buccal mucosa Neck: Supple, no tenderness Endocrine: No Thyromegaly. Vascular: No JVD or carotid bruit. Lymphatic: No cervical lymphadenopathy. Chest: CTA no DTP. Heart RRR, no extra sound or murmur. Abd: Soft, diffuse mild tenderness. Much less tender compared to admission state. No guarding, no rebound. Evidence of recent laparoscopic surgical intervention for her recent hysterectomy completed in [place]. Neuro: A A O. Nl speech, comprehension and attention. Nl and symetrical motor and tone examination through out. []] Constitutional Vital Signs, click to edit/add: Last Vital Signs Temp 98.6 F 08/21/25 07:28 Pulse 77 08/21/25 08:00 Resp 16 08/21/25 03:14 BP 122/75 08/21/25 07:28 Pulse Ox 94 L 08/21/25 07:28 O2 Del Method Room Air 08/21/25 07:28 Progress Note: Objective Labs Labs: Short CBC 08/21/25 Range/Units 05:09 WBC 11.6 H (4.0-11.0) 10^3/uL Hgb 8.8 L (12.0-16.0) g/dL Hct 29.0 L (36.0-48.0) % Plt Count 644 H (150-450) 10^3/uL BMP 08/21/25 05:09 Sodium 143 Potassium 3.3 L Chloride 111 H Carbon Dioxide 25.2 BUN 3.0 L Creatinine 0.45 L Glucose 107 H Calcium 8.3 L Progress Note: A&P Assessment and Plan (1) Sepsis: (2) C. difficile colitis: Plan Sepsis present on admission with early septic shock. White count is coming down to 11,000, hypotension had resolved. CRP is down from 6.3 to 0.7 C. difficile fulminant colitis with significant leukocytosis at 35,000. White count is down to 11,000. Continue oral vancomycin and IV Flagyl Streptococcus MITIS bacteremia. Could be translocation of gut bacteria. Continue ceftriaxone E. coli UTI. Continue ceftriaxone CAT scan does not show any perforation. Repeat x-ray does not show any toxic megacolon. No clinical evidence of obstruction Repeat blood culture is pending. Subcutaneous emphysema Likely caused by recent laparoscopy Clinically her abdomen is much softer. Known metastatic uterine cancer for which patient had hysterectomy in [place] last week. Patient is scheduled to have a port inserted next week to initiate chemotherapy. I had recommended to hold off on chemotherapy until her C. difficile infection and bacteremia resolve. Anemia, likely caused by recent uterine bleed caused by uterine cancer for which patient had hysterectomy Monitor H&H, no justification for transfusion. Severe hypokalemia, likely caused by diarrhea Corrected with potassium supplementation Hypophosphatemia Status post repletion Thrombocytosis secondary to active infection It will improve as we get control of the infection. DVT prophylaxis Lovenox subcu Glaucoma Continue preadmission eyedrops. I had discussed her case with her and friend at the bedside on 08/17 and 08/18 and on 08/20 and 08/21. I provided them information about her disease, prognosis, expectation and trajectory. I answered all of her questions.
--- NOTE | 2025-08-21 14:02 | CM.NOTE ---
CM in to speak with pt regarding HH services and having a nurse come in at discharge. Pt had voiced feeling fatigued and weak. Pt is ambulatory with walker and will not need home PT and OT but could benefit from nurse for f/u vitals, assessment and medication management. Pt is in agreement, pt will speak with her regarding list of HH companies provided by CM with Medicare.gov 5 star rating. CM or SW will check back with pt for decision of HH service.
--- NOTE | 2025-08-21 14:54 | CM.NOTE ---
Pt's daughter called to speak with Case Management regarding pt's discharge. Daughter has concerns for pt's decreased appetite, weight loss, and weakness. Discussed with daughter PT and OT evaluation, services for nurse and pt provided list of Care givers for home that would be out of pocket expense. Both pt and daughter verbalize understanding. Nurses in to assist pt when transferring to and BSC at hospital for safety. PT cleared pt as far as services at discharge and felt as there was not a need to pick pt up while in hospital d/t independent ambulation and transfers. CM will speak with pt and encourage ambulation and importance of activity for healing. CM spoke with Dr. Robin regarding order for Dietary consult and daily weights. CM put in orders.
--- NOTE | 2025-08-21 15:17 | SWNOTE1 ---
SW spoke to CM and pt is agreeable to have home health come in, nursing only, to assist with transition from hospital to home and make sure pt is doing well at home. List from Medicare.gov with star ratings was provided to pt and to review. Pt did well with PT/OT and no skilled services identified. Pt's informed nurse and CM that they would like [facility]. Referral sent to [facility]. Referral included face sheet, ED note, H&P, provider notes, case management report, and PT/OT notes.
--- NOTE | 2025-08-21 15:18 | CM.NOTE ---
Cm back in to speak with pt regarding HH services. Pt would like to go with [facility], SW will submit new referral.
[2025-08-22] VITALS (9 sets, daily range): BP systolic 111–118; BP diastolic 69–72; PULSE 70–80; TEMP 36.6–37.2; O2SAT 95–97
[2025-08-22] MEDS: METRONIDAZOLE/SODIUM CHLORIDE 500 MG/100 ML PREMIX 100 MG IV ×2 (01:50→09:51)
[2025-08-22] MEDS: VANCOMYCIN HCL 7,500 MG/150 ML BOTTLE 250 MG PO ×2 (05:33→11:03)
[2025-08-22] MEDS: DICYCLOMINE HCL 10 MG CAPSULE PO ×2 (05:33→13:12)
[2025-08-22] MEDS: DORZOLAMIDE HCL 2% OP SOL 200 DROP/10 ML BOTTLE OP ×2 (05:34→13:12)
--- NOTE | 2025-08-22 05:57 | CA_ITS ---
Patient Name: OTONIEL GONZALEZ MR#: [id number] : 1955 Exam Date: 08/22/2025 Ordering Doctor: WON CADET ECHOCARDIOGRAM REPORT PROCEDURE: CA ECHO DOPPLER COMPLETE INDICATIONS: Bacteremia r/o vegetation, endometrial adenocarcinoma COMPARISON: None. DESCRIPTION: COMPLETE ECHOCARDIOGRAM Real-time transthoracic echocardiography with 2D, M-mode, spectral and color flow Doppler performed. QUALITY: Technical quality was good. LEFT VENTRICLE: Normal chamber size. Mild concentric left ventricular hypertrophy. LV EF: Global left ventricular systolic function is normal; visually estimated ejection fraction is 60 to 65%. No significant wall motion abnormalities. DIASTOLIC: Normal diastolic function. ATRIAL SEPTUM: Inadequately seen. LEFT ATRIUM: Normal chamber size. RIGHT ATRIUM: Normal chamber size. RIGHT VENTRICLE: Normal chamber size. Normal right ventricular systolic function. TRICUSPID VALVE: Normal mobility and thickness. No stenosis with trivial regurgitation. No evidence of pulmonary hypertension. RVSP 34 mmHg MITRAL VALVE: Normal mobility and thickness. No evidence of mitral valve stenosis. There is no mitral annular calcification. Trivial mitral regurgitation. AORTIC VALVE: Normal trileaflet appearance. Thickened aortic valve. Normal leaflet mobility. No evidence of aortic valve stenosis. No aortic regurgitation. AORTIC ROOT: Normal diameter and appearance. PULMONIC VALVE: Normal thickness and mobility. No stenosis. Trivial regurgitation. PERICARDIUM: Anterior free space; trivial effusion versus fat pad. IVC: Collapses with inspiration. CONCLUSION: 1. Global left ventricular systolic function is normal; visually estimated ejection fraction is 60 to 65% 2. Normal right ventricular size and systolic function 3. Mild left ventricular hypertrophy 4. Normal diastolic function 5. The left atrium is normal in size 6. Valvular structures are poorly seen; no significant valvular abnormalities and no obvious valvular vegetations 7. Anterior free space; trivial effusion versus fat pad Consider transesophageal echocardiography if clinically indicated Adult Echocardiography Procedure Report Left Ventricle LVEDD (3.7 - 5.6 cm): 4.30 cm LVESD (2.2 - 4.0 cm): 3.11 cm LVIVS thickness (0.6 - 1.2 cm): 1.10 cm LVPW thickness (0.5 - 1.0 cm): 1.07 cm e': 0.14 m/s E - e': 4.50 LVOT Max Gradient: 2.43 mm[Hg] LVOT Area (cm2): 0.78 m/s Peak Velocity (LVOT): 0.78 m/s Mean Velocity (LVOT): 0.53 m/s LVOT Diameter 2.33 cm Left Ventricular Ejection Fraction: 63.20 % Left Atrium LA Volume Index (2D A2C): 29.32 ml/m2 Left Atrium Systolic Dimension: 3.66 cm Mitral Valve MV E to A Ratio: 0.68 Mitral Valve A-Wave Peak Velocity: 0.93 m/s Mitral Valve E-Wave Peak Velocity: 0.63 m/s Right Ventricle Aorta AO Root Diam: 3.27 cm Aortic Valve AoV Area (Peak Khang): 2.84 cm2, 2.84 cm2 AoV Area (VTI): 3.50 cm2, 3.50 cm2 Peak Velocity(Antegrade Flow): 1.17 m/s Peak Gradient(Antegrade Flow): 5.50 mm[Hg] Mean Velocity(Antegrade Flow): 0.75 m/s Mean Gradient(Antegrade Flow): 2.61 mm[Hg] Velocity Time Integral: 21.94 cm Tricuspid Valve Peak Velocity (Regurgitant Flow): 2.80 m/s Pulmonic Valve Mean Gradient: 4.44 mm[Hg] Mean Velocity: 0.99 m/s Peak Velocity: 1.50 m/s Peak Gradient: 9.03 mm[Hg] Right Atrium Right Atrium Systolic Pressure: 37.03 ml, 37.03 ml Dictated by: Elias Garcia M.D. on 08/22/2025 at 17:10 Approved by: Elias Garcia M.D. on 08/22/2025 at 17:14
[2025-08-22] MEDS: ENOXAPARIN SODIUM 40 MG/0.4 ML SYRINGE SUBQ (08:11)
[2025-08-22] MEDS: MIDODRINE HCL 5 MG TABLET 2.5 MG PO (08:13)
[2025-08-22] MEDS: TIMOLOL MALEATE 0.5% OP SOL 100 DROPS/5 ML BOTTLE 1 DROP OP (08:23)
--- NOTE | 2025-08-22 09:34 | SWNOTE1 ---
ELIAS spoke to Maricel Mora in medical records. Pt will need to sign the form, but the entire medical record from pt's stay will likely not be ready until a few days after discharge. Maricel Mora will work on it on Wednesday and call the patient. ELIAS took release of medical record form in to the patient's room. SW explained that the entire medical record will likely not be ready for a few days. SW let her know that Maricel Mora from medical records will call on Wednesday to follow up. Pt did provide ELIAS with the doctors names and phone number and fax number for one. Pt signed the form. SW took the form down to Maricel Mora in medical records, she made copy of pt's doctors and will reach out to pt on Wednesday.
--- NOTE | 2025-08-22 10:11 | SWNOTE1 ---
ELIAS called and spoke to Edith at [facility]. They did receive referral and can follow. Edith left a message for Dr. Simons office to see if they could follow, but did not get a call back. ELIAS to call the doctor's office as well. Edith will need discharge orders as well. ELIAS to send once orders are in. ELIAS called and left a message for Joana, Dr. Smith's nurse, and provided [facility] phone number and requested they call [facility] to let them know if they will follow.
--- NOTE | 2025-08-22 10:36 | CM.NOTE ---
Rounds made with Dr. Robin, discussed plan of care with pt. Pt would like to discharge today if possible pending ECHO results.
--- NOTE | 2025-08-22 11:44 | P.DS_ITS ---
DS: Providers Provider Date of admission: 08/17/25 01:31 Primary care physician: ANN MARIE RHODES Consults: 08/20/25 Occupational Therapy Eval and Treat Routine Reason for consultation: weakness Physical Therapy Eval and Treat Routine Reason for consultation: weakness 08/21/25 Consult to Dietitian Routine Reason for consultation: decreased appetitie DS: Diagnosis Discharge Diagnosis (1) Sepsis: (2) C. difficile colitis: Plan As listed above, below and others that are not listed DS: Summary Hospital Course Hospital Course: Mrs. Anderson is a 70-year-old female who came in with abdominal pain, diarrhea and not feeling well. She was found to have the following: Sepsis present on admission with early septic shock. White count is coming down to 11,000, hypotension had resolved. CRP is down from 6.3 to 0.7 C. difficile fulminant colitis with significant leukocytosis at 35,000. White count is down to 11,000. Continue oral vancomycin and IV Flagyl during hospitalization. Streptococcus MITIS bacteremia. Could be translocation of gut bacteria. Continue ceftriaxone. Repeat blood cultures negative E. coli UTI. Continue ceftriaxone CAT scan does not show any perforation. Repeat x-ray does not show any toxic megacolon. No clinical evidence of obstruction Repeat blood culture is negative. Patient will be discharged home on oral vancomycin for 14 days (7 days beyond co mpletion of oral Augmentin for 7 days ). Patient will be discharged home on Augmentin for 7 days. Unfortunately Augmentin could potentially increase her risk having ongoing C. difficile infection however given her concomitant bacteremia that was contributing to her sepsis, I do not have any other option but to prescribe Augmentin for at least another 7 days (5 days of intravenous ceftriaxone and 7 days of Augmentin, total 12 days ) I instructed the patient to return back to the emergency room if she develops worsening abdominal pain or diarrhea. Her diarrhea thus far had significantly subsided. Her stool is firming up. It is no longer liquidy. Her bowel movement is only for small volume. Subcutaneous emphysema Likely caused by recent laparoscopy Clinically her abdomen is much softer. Patient is to follow-up with her surgeon in [place] Known metastatic uterine cancer for which patient had hysterectomy in [place] last week. Patient is scheduled to have a port inserted next week to initiate chemotherapy. I had recommended to hold off on chemotherapy until her C. difficile infection and bacteremia resolve. Patient is to follow-up with the oncology team. Anemia, likely caused by recent uterine bleed caused by uterine cancer for which patient had hysterectomy Monitor H&H, no justification for transfusion. Severe hypokalemia, likely caused by diarrhea Corrected with potassium supplementation Hypophosphatemia Status post repletion Thrombocytosis secondary to active infection It will improve as we get control of the infection. DVT prophylaxis Lovenox subcu Glaucoma Continue preadmission eyedrops. I had discussed her case with her and friend at the bedside on 08/17 and 08/18 and on 08/20 and 08/21. I provided them information about her disease, prognosis, expectation and trajectory. I answered all of her questions. Patient has multiple complex medical issues as listed above and others that are not listed. All appear to be stable. I do not have any clear or strong clinical justification to extend inpatient hospitalization. Patient however will require close and frequent monitoring as well as additional work-up, investigation and therapeutic intervention that could take place from this point on post discharge. That is to prevent relapse, decompensation, rehospitalization and other medical implications. Patient will be arranged to have home health care. Home regular nurses to monitor condition closely over the next 2 weeks. I recommended patient to have CBC and BMP to be drawn by home health care nurse for 2 weeks and the result is to be communicated to PCP and that is to monitor her electrolytes and kidney function as well as white count. I instructed patient to ask her primary care doctor to obtain [facility] record entirely to address abnormalities seen on labs and imaging that I have and have not addressed during this hospitalization, follow-up on pending blood work, imaging and pathology is if available and to follow-up on needed medical care in the outpatient setting. Time Spent with Patient Time attestation: Total time spent providing and/or coordinating discharge services: Exam Narrative Exam Narrative: [pt is awake and alert. oriented to place, time and person HEENT: [place] conjunctiva and NL buccal mucosa Neck: Supple, no tenderness Endocrine: No Thyromegaly. Vascular: No JVD or carotid bruit. Lymphatic: No cervical lymphadenopathy. Chest: CTA no DTP. Heart RRR, no extra sound or murmur. Abd: Soft, significant resolution of abdominal distention and tenderness compared to admission state. LE: No cyanosis or clubbing, no varices or edema. Neuro: A A O. Nl speech, comprehension and attention. Nl and symetrical motor and tone examination through out. []] Constitutional Vital Signs, click to edit/add: Last Vital Signs Temp 98.9 F 08/22/25 08:00 Pulse 75 08/22/25 11:41 Resp 18 08/22/25 08:00 BP 111/69 08/22/25 08:00 Pulse Ox 95 08/22/25 08:00 O2 Del Method Room Air 08/22/25 08:00 DS: Data Data Completed and Pending Labs on day of discharge: Preliminary micro results at discharge 08/19/25 07:05 Blood Culture Result 2 - Preliminary Blood NO GROWTH AT 36-48 HOURS. FINAL TO FOLLOW. 08/19/25 06:52 Blood Culture Result 1 - Preliminary Blood NO GROWTH AT 36-48 HOURS. FINAL TO FOLLOW. 08/16/25 23:25 Blood Culture Result 2 - Preliminary Blood - Right Hand NO GROWTH AT 36-48 HOURS. FINAL TO FOLLOW. 08/16/25 23:15 Blood Culture Result 1 - Preliminary Blood - Left Wrist Discharge Plan Discharge Disposition: Home Health Service Condition: Fair Discharge Medications: New midodrine 5 mg Tablet 5 mg PO BID@0800,1800 10 Days Qty: 20 0RF vancomycin [Firvanq] 50 mg/mL Recon Soln 250 mg PO QID 14 Days Qty: 280 0RF dicyclomine 10 mg Capsule 10 mg PO TID PRN (Reason: Abdominal cramps) Qty: 15 0RF amoxicillin-pot clavulanate [Augmentin] 500-125 mg tablet 1 tab PO TID Qty: 21 0RF Continued dorzolamide 2 % drops 1 drp ophthalmic (eye) TID Rocklatan 0.02-0.005 % drops 1 drp ophthalmic (eye) QPM timolol 0.5 % drops 1 drp ophthalmic (eye) BID Changed potassium chloride 10 mEq tablet extended release 20 meq PO DAILY Qty: 0 0RF Discontinued acetazolamide 250 mg tablet 250 mg PO Q12H Print Language: Estonian Activity Restrictions/Additional Instructions: I may not have addressed or treated all of your medical illnesses or the abnormal blood work or imaging studies during this hospitalization. Please ask your primary care provider to obtain [facility] records entirely to follow up on all of the abnormal physical, laboratory, and imaging findings that I have not addressed. Please return back to the emergency room or seek medical attention if your symptoms worsen or return. Discharging you from [facility] does not mean that your medical care ends here and now. You may still need additional monitoring, work up, investigation, and treatment plan to be handled from this point on by out patient providers including your primary care provider and specialists. For any medication question, please contact your retail pharmacist or your primary care provider. Visiting home health care nurse Please draw CBC and BMP every Wednesday and for 2 weeks and communicate results to PCP Please send patient back to the emergency room if she continues to have excessive diarrhea Please ask patient to see her primary care doctor or go back to the emergency room if she develops any worsening abdominal pain, fever or chills. Please send patient to the emergency room if her white count is climbing up about 15. Thank you. Passenger Barge Master/Cheese Weigher Instructions: Medical Records will be in contact with you in regards to picking up records from this hospital stay. [phone] ext [phone] Forms: Portal Instructions Follow Up Appointments: Dr Ann Marie Rhodes, Wednesday August 27, 2025 at 2:00
--- NOTE | 2025-08-22 12:56 | SWNOTE1 ---
ELIAS faxed dc med rec, dc summary, and CRF to [facility]. ELIAS advised Ayla from [facility] that pt will need lab work Wednesday and for 2 weeks and results to PCP. Ayla also confirmed that they did received call from PCP and they will follow. ELIAS updated pt that [facility] should call within 48 to schedule visit.
--- NOTE | 2025-08-22 13:10 | NUTR.NU ---
Diet consult completed. Addressed pt's questions re advancing diet from full liquid, supplements, and at-home diet when discharged. Provided handout, Ways to Increase Calorie Intake. and Dietitian contact information for any further questions or concerns.
== END 2025-08-22 16:14 | disposition home health service (06) | DRG 871 ==
LOC: ER 20:22 → MS 08-17 00:18
PROVIDERS: Physician Assistant; Admitting Provider Internal Medicine; Emergency Provider Emergency Medicine; Visit Provider Internal Medicine
DX: A40.9 Streptococcal sepsis, unspecified (principal); R65.21 Severe sepsis with septic shock; A04.72 Enterocolitis due to Clostridium difficile, not specified as recurrent; N39.0 Urinary tract infection, site not specified; C77.9 Secondary and unspecified malignant neoplasm of lymph node, unspecified; E87.6 Hypokalemia; H40.9 Unspecified glaucoma; C54.1 Malignant neoplasm of endometrium; Z90.710 Acquired absence of both cervix and uterus; D63.0 Anemia in neoplastic disease; E83.39 Other disorders of phosphorus metabolism; B96.20 Unspecified Escherichia coli [E. coli] as the cause of diseases classified elsewhere; D75.839 Thrombocytosis, unspecified; T81.82XA Emphysema (subcutaneous) resulting from a procedure, initial encounter
CPT/HCPCS: 36415; 71045; 74018; 74177; 80048; 80053; 81001; 83605; 83735; 84100; 84132; 85007; 85025; 85027; 86140; 87040; 87045; 87046; 87077; 87086; 87088; 87150; 87186; 87427; 87493; 93005; 93306; 96365; 96366; 96375; 97161; 97165; 99285; G0328; J0696; J1650; J1836; J2270; J2405; J3475; J3480; P9046; Q9967

== ENCOUNTER 2025-08-23 11:22 | Outpatient (REF) | payer MEDICARE, OTHER, SELFPAY ==
--- OUTSIDE RECORDS SUMMARY | 2025-08-04 03:32 | XMS_ITS | Encounter Summary ---
Author Organization [employer] Formerly [facility] tem Address [id number] [address] [place] [address] Care Team Providers Care Senior Accounting Specialist Name Role Phone Ann Marie Sidhu MD Primary Care Provider [phone] Reason for Referral * Misc (Routine) - Pending ReviewSpecialtyDiagnoses / ProceduresReferred By ContactReferred To Contact Procedures Discharge Follow-Up Nusrat Ramirez MD [address] [address] Phone: tel: fax: Referral IDStatusReasonStart DateExpiration DateVisits RequestedVisits [id number] * Misc (Routine) - Pending ReviewSpecialtyDiagnoses / ProceduresReferred By ContactReferred To Contact Procedures Hygiene Nusrat Ramirez MD [address] [address] Phone: tel: fax: Referral IDStatusReasonStart DateExpiration DateVisits RequestedVisits [id number] * Misc (Routine) - Pending ReviewSpecialtyDiagnoses / ProceduresReferred By ContactReferred To Contact Procedures Discharge Follow-Up Nusrat Ramirez MD [address] [place] [address] Phone: tel: fax: Referral IDStatusReasonStart DateExpiration DateVisits RequestedVisits [id number] * Misc (Routine) - Pending ReviewSpecialtyDiagnoses / ProceduresReferred By ContactReferred To Contact Procedures [facility] Nusrat Ramirez MD [address] [place] [address] Phone: tel: fax: Referral IDStatusReasonStart DateExpiration DateVisits RequestedVisits [id number] * Misc (Routine) - Pending ReviewSpecialtyDiagnoses / ProceduresReferred By ContactReferred To Contact Procedures Discharge Follow-Up Discharge Follow-Up Jalyn Camp MD [address] [place] [address] Phone: tel: fax: Referral IDStatusReasonStart DateExpiration DateVisits RequestedVisits [id number] * Misc (Routine) - Pending ReviewSpecialtyDiagnoses / ProceduresReferred By ContactReferred To Contact Procedures Annita Walter MD [address] [address] Phone: tel: fax: Referral IDStatusReasonBlanket DateExpiration DateVisits RequestedVisits [id number]/ Reason for Visit * Auth/Cert (Routine)SpecialtyDiagnoses / ProceduresReferred By ContactReferred To Contact Diagnoses Pelvic mass Vagina bleeding Vaginal bleeding pelvic mass/vaginal bleeding Rocio Santiago MD [address] [facility], [address] [place] [address] Phone: tel: fax: Referral IDStatusReasonBlanket DateExpiration DateVisits RequestedVisits [id number] Encounter Details DateTypeDepartmentCare Team (Latest Contact Info)Zdpzmvntqlr55/08/2025 3:32 AM EST - 08/09/2025 5:49 PM ESTHospital Encounter [facility] [address] [place] [id number] [place] [address] [place] [address], [address] [place] [address] Endometrial cancer determined by uterine biopsy ([facility]) (Primary Dx); Pelvic mass; Limited mobility; Nausea Discharge Disposition: Home Social History Tobacco UseTypesPacks/DayYears UsedDateSmoking Tobacco: NeverSmokeless Tobacco: Never Tobacco Cessation:Counseling Given: Not Answered Alcohol UseStandard Drinks/WeekCommentsNever0 (1 standard drink = 0.6 oz pure alcohol)PHQ-2AnswerDate RecordedTotal Wonry80010/04/2024UDIT-CAnswerDate Recorded Q1: How often do you have a drink containing alcohol?Never08/04/2025Q2: How many drinks containing alcohol do you have on a typical day when you are drinking? Patient does not drink08/04/2025Q3: How often do you have six or more drinks on one occasion?Never08/04/2025PRAPARE - TransportationAnswerDate RecordedIn the past 12 months, has lack of transportation kept you from medical appointments or from getting medications?No08/04/2025In the past 12 months, has lack of transportation kept you from meetings, work, or from getting things needed for daily living?No08/04/2025HC UtilitiesAnswerDate RecordedIn the past 12 months has the electric, gas, oil, or water company threatened to shut off services in your home?No08/04/2025Housing InstabilityAnswerDate RecordedAre you worried or concerned that in the next two months you may not have stable housing that you own, rent or stay in as a part of a household?No08/04/2025Hunger ScreeningAnswer Date RecordedWithin the past 12 months we worried whether our food would run out before we got money to buy more.Never True08/05/2025Within the past 12 months the food we bought just didn't last and we didn't have money to get more.Never True08/05/2025CommentsNoSex and Gender InformationValueDate RecordedSex Assigned at BirthNot on fileLegal GjlFlohoo45/08/2025 12:05 AM ESTGender IdentityNot on fileSexual OrientationNot on filedocumented as of this encounter Last Filed Vital Signs Vital SignReadingTime TakenCommentsBlood Hlykdgze986/7208/09/2025 7:49 AM EST Fhkqg783408/09/2025 7:49 AM YEQDkvmrbvpcnk44.4 ??C (99.4 ??F)08/09/2025 7:49 AM ESTRespiratory Pkrg257610/09/2024 7:49 AM ESTOxygen Iuhlnbttzg37%08/09/2025 7:49 AM ESTInhaled Oxygen Concentration--Gkctws91 kg (165 lb 5.5 oz)08/09/2025 3:46 AM QMIUpcesw947.5 cm (5' 2.01 )08/04/2025 8:39 AM ESTBody Mass Index30.23 08/04/2025 8:39 AM ESTdocumented in this encounter Functional Status * QuestionAnswerDate of AssessmentAuthorFunctional NofofgWrsmqukixbh92/09/2025 11:52 AM Milagros Bolden RN * AUDIT-C ScoreAnswerDate of OvidbssgavMiilvc730/08/2025 3:44 PM Denice Schultz RN * QuestionAnswerDate of AssessmentAuthorQ1: How often do you have a drink containing alcohol?Never08/04/2025 3:44 PM Denice Schultz RNQ2: How many drinks containing alcohol do you have on a typical day when you are drinking?Patient does not drink08/04/2025 3:44 PM Denice Schultz RNQ3: How often do you have six or more drinks on one occasion?Never08/04/2025 3:44 PM Denice Schultz RN documented as of this encounter Mental Status * QuestionAnswerEntry DateAuthorOverall Cognitive BwdmdnZQR92/12/2025 9:18 AM Toya Morrell, OT/L documented in this encounter Discharge Summaries * Jalyn Camp MD - 08/09/2025 6:49 PM EST Discharge Summary Date of Admission: 08/04/2025 Date of Discharge: 08/10/25 Principal Diagnosis: Uterine mass, vaginal bleeding Secondary Diagnoses: Glaucoma Procedures: Hysteroscopy dilation and curettage RA-TLH, BSO, ureterolysis, radical tumor debulking w/ peritoneal stripping, and flexible sigmoidoscopy Significant Findings & Brief Hospital Course: Eunice Anderson is a 70 y.o. No obstetric history on file. who initially presented to [facility] for vaginal bleeding. A pelvic ultrasound and CT abdomen were performed that showed a uterine mass and enlarged lymph nodes. The patient was transferred to [facility]. Upon arrival speculumexam showed 1 large clot in the vagina with slow active bleeding. The patient underwent a hysteroscopy dilation and curettage. During admission the patient continued to have vaginal bleeding and abdominal pain. The decision was made to proceed with surgery. She underwent the procedures above. The patient did well postop. She was tolerating a regular diet, ambulating without difficulty, passing flatus, had a bowel movement, urinating without difficulty, and pain was controlled using oral pain medications. She was discharged on postop day 2. Condition of Patient at Discharge: Stable. Discharge Medications: Medication List START taking these medications Instructions Last Dose Given Next Dose Due acetaminophen 500 mg tablet Commonly known as: TYLENOL EXTRA STRENGTH Take 2 tablets (1,000 mg total) by mouth every 8 (eight) hours as needed for pain, fever or headaches. famotidine 20 mg tablet Commonly known as: PEPCID Take 1 tablet (20 mg total) by mouth in the morning and 1 tablet (20 mg total) before bedtime. ondansetron ODT 4 mg disintegrating tablet Commonly known as: ZOFRAN ODT Dissolve 1 tablet (4 mg total) on tongue every 8 (eight) hours as needed for nausea or vomiting. oxyCODONE 5 mg immediate release tablet Commonly known as: ROXICODONE Take 1 tablet (5 mg total) by mouth every 6 (six) hours as needed for pain for up to 3 days. Max Daily Amount: 20 mg senna 8.6 mg tablet Commonly known as: SENOKOT Take 1 tablet (8.6 mg total) by mouth in the morning and 1 tablet (8.6 mg total) before bedtime. CONTINUE taking these medications Instructions Last Dose Given Next Dose Due acetaZOLAMIDE 250 mg tablet Commonly known as: DIAMOX Take 1 tablet (250 mg total) by mouth in the morning and 1 tablet (250 mg total) before bedtime. dorzolamide 2 % ophthalmic solution Commonly known as: TRUSOPT Administer 1 drop to both eyes 3 (three) times a day. netarsudiL-latanoprost 0.02-0.005 % drops Instill 1 drop to eye in the evening. timolol 0.5 % ophthalmic solution Commonly known as: TIMOPTIC Administer 1 drop to both eyes in the morning and 1 drop before bedtime. Where to Get Your Medications These medications were sent to [facility] - [facility] [address] [facility] [address] [facility] [address] acetaminophen 500 mg tablet famotidine 20 mg tablet ondansetron ODT 4 mg disintegrating tablet oxyCODONE 5 mg immediate release tablet senna 8.6 mg tablet Special Instructions/Information to Patient and Family: Pelvic rest for 6 weeks, i.e. nothing in the vagina - no tampons, douches, or intercourse. Call right away if she experiences any shortness of breath, chest pain or calf pain; or severe abdominal pain uncontrollable with oral pain medications; severe vaginal bleeding (soaking 1 pad/hourfor a couple of hours or more); or temperature > 100.3. No heavy lifting greater than 15 lbs. No driving or operating heavy machinery while taking any narcotic pain medications. Disposition: Home. Recommendations For Follow-up Care: Postop visit on 08/21 Jalyn Camp MD [employer] Resident, PGY-3 Cosigned by Sherry Cuellar MD at 08/10/2025 8:33 PM EST Associated attestation - Sherry Cuellar MD - 08/10/2025 8:33 PM EST I reviewed the resident's note and discussed the case with the resident. This specific service willnot be billed. Additional findings/notes: Please see attestation from progress note on day of discharge. documented in this encounter Medications at Time of Discharge MedicationSigDispense QuantityRefillsLast FilledStart DateEnd Date acetaminophen (TYLENOL EXTRA STRENGTH) 500 mg tablet Take 2 tablets (1,000 mg total) by mouth every 8 (eight) hours as needed for pain, fever or headaches. 30 tablet 08/09/2025 acetaZOLAMIDE (DIAMOX) 250 mg tablet Take 1 tablet (250 mg total) by mouth in the morning and 1 tablet (250 mg total) before bedtime. dorzolamide (TRUSOPT) 2 % ophthalmic solution Administer 1 drop to both eyes 3 (three) times a day. famotidine (PEPCID) 20 mg tablet Indications:NauseaTake 1 tablet (20 mg total) by mouth in the morning and 1 tablet (20 mg total) before bedtime. 10 tablet 08/09/2025 netarsudiL-latanoprost 0.02-0.005 % drops Instill 1 drop to eye in the evening. senna (SENOKOT) 8.6 mg tablet Take 1 tablet (8.6 mg total) by mouth in the morning and 1 tablet (8.6 mg total) before bedtime. 60 tablet 08/09/2025 timolol (TIMOPTIC) 0.5 % ophthalmic solution Administer 1 drop to both eyes in the morning and 1 drop before bedtime. ondansetron ODT (ZOFRAN ODT) 4 mg disintegrating tablet Dissolve 1 tablet (4 mg total) on tongue every 8 (eight) hours as needed for nausea or vomiting. 20 tablet oxyCODONE (ROXICODONE) 5 mg immediate release tablet Indications:Pelvic massTake 1 tablet (5 mg total) by mouth every 6 (six) hours as needed for pain for up to 3 days. Max Daily Amount: 20 mg 15 tablet documented as of this encounter Progress Notes * Jalyn Camp MD - 08/09/2025 5:58 AM EST Gynecology Progress Note SUBJECTIVE: Eunice Anderson is a 70 y.o. POD #2 from robotic assisted lap hysterectomy w/ b/l salphino-oophorectomy, left ureterolysis, radical tumor debulking w/ peritoneal stripping, and flexible sigmoidoscopy. Doing well. Pain is controlled with tylenol, dilaudid, chava. She reported a 6-7/10 pain without medications; she states it is significantly improved and manageable with medications. She is tolerating PO with some nausea and no vomiting. Pt is voiding spontaneously. Patient is ambulating; she states she went on 2 walks yesterday. Patient is passing flatus. Patient has had bowel movement. She denies CP, SOB, fevers, or chills. OBJECTIVE: Temp: [36.8 ??C (98.2 ??F)-36.9 ??C (98.4 ??F)] 36.8 ??C (98.2 ??F) Pulse: [75-76] 75 Resp: [18] 18 BP: (107-140)/(60-66) 113/62 SpO2: [92 %-96 %] 94 % O2 Device: None (Room air) O2 Flow Rate (L/min): [0 L/min] 0 L/min Physical Exam Gen: AOx2 NAD Resp: No increased work of breathing CV: RRR Abd: soft, nondistended, appropriately tender, +BS Inc: laparoscopic incision sites C/D/I without erythema, drainage, or dehiscence Ext: No edema nontender Results from last 7 days Lab Units 08/09/25 0532 08/08/25 0558 08/07/25 0540 WBC X10^9/L 14.1* 18.1* 18.4* HEMOGLOBIN g/dL 8.9* 8.5* 8.3* HEMATOCRIT % 26.3* 26.1* 25.3* PLATELETS X10^9/L 348 306 345 Results from last 7 days Lab Units 08/09/25 0532 08/08/25 0557 08/07/25 0540 POTASSIUM mmol/L 3.3* 4.0 3.2* CHLORIDE mmol/L 108 107 110* CO2 mmol/L 22 23 23 BUN mg/dL 21 21 20 CREATININE mg/dL 0.65 0.61 0.67 CALCIUM mg/dL 8.1* 8.5 8.0* ALK PHOS U/L 48 45 52 ALT U/L 6 3 4 AST U/L 12 12 10 ASSESSMENT and PLAN: Pt is a 70 y.o. with history of glaucoma who presented with postmenopausal bleeding and was found to have grade 2 endometrial adenocarcinoma. She is now POD#2 from a robo assisted total hysterectomy with b/l salpingo-oophorectomy, L ureterolysis, and radical tumor debulking with peritoneal stripping. Her post-op course has been stable with adequate pain and nausea, well controlled by medications. Continue routine post-op care: Pain regimen: tylenol, dilaudid, chava Encourage incentive spirometry and continue abdominal binder GI: advance diet as tolerated; continue bowel regime; encourage ambulation. : voiding spontaneously; monitor output. Heme: post-op Hgb stable; monitor if symptomatic. ID: afebrile, monitor for infection. Onc: await pathology results Dispo: potential discharge today Mario Cruz Medical Student, MS-3 Resident Attestation I have seen and evaluated the patient, and have also reviewed the documentation above. I have repeated and performed the carson portions of the physical exam and concur with the student's findings. I agree with the plan as noted above with any changes made as necessary. Jalyn Camp MD Evaluation Manager Resident PGY-2 08/09/25 6:44 AM Cosigned by Sherry Cuellar MD at 08/09/2025 11:13 AM EST Associated attestation - Sherry Cuellar MD - 08/09/2025 11:13 AM EST Attending Attestation: I saw the patient. I participated and was physically present during the critical/carson portions of the service. I was directly involved in the management and treatment plan of the patient. I reviewed the resident's note. Additional Notes/Findings: POD#2 s/p RATLH BSO L ureterolysis CRS. Some nausea - will ensure pt able to tolerate PO. If so, anticipate discharge home today. * Jalyn Camp MD - 08/08/2025 6:04 AM EST Gynecology Progress Note SUBJECTIVE: Eunice Anderson is a 70 y.o. POD #1 from robotic assisted lap hysterectomy w/ b/l salphino-oophorectomy, left ureterolysis, radical tumor debulking w/ peritoneal stripping, and flexible sigmoidoscopy. Doing well. Pain is controlled. She reported a 5/10 pain. She is tolerating PO with some nausea and no vomiting. Patient states that she has been tolerating apple sauce well. Pt is voiding spontaneously. Patient is not ambulating. Patient is passing flatus. Patient has not had bowel movement. Shedenies CP, SOB, fevers, or chills. OBJECTIVE: Temp: [36.6 ??C (97.8 ??F)-37.1 ??C (98.8 ??F)] 36.9 ??C (98.4 ??F) Pulse: [71-87] 71 Resp: [14-24] 15 BP: (113-131)/(56-78) 127/63 SpO2: [92 %-99 %] 93 % O2 Device: None (Room air) O2 Flow Rate (L/min): [0 L/min-8 L/min] 0 L/min Physical Exam Gen: AOx2 NAD Resp: No increased work of breathing CV: RRR Abd: soft, nondistended, appropriately tender, +BS Inc: laparoscopic incision sites C/D/I without erythema, drainage, or dehiscence Ext: No edema nontender Results from last 7 days Lab Units 08/07/25 0540 08/06/25 0608/05/25 0402 WBC X10^9/L 18.4* 21.4* 19.8* HEMOGLOBIN g/dL 8.3* 8.3* 8.0* HEMATOCRIT % 25.3* 25.4* 24.4* PLATELETS X10^9/L 345 313 288 Results from last 7 days Lab Units 08/07/2540 08/06/2562208/05/252010 POTASSIUM mmol/L 3.2* 3.6 3.3* CHLORIDE mmol/L 110* 112* 113* CO2 mmol/L 23 20* 21* BUN mg/dL 20 16 13 CREATININE mg/dL 0.67 0.68 0.68 CALCIUM mg/dL 8.0* 8.1* 8.0* ALK PHOS U/L 52 54 49 ALT U/L 4 5 5 AST U/L 10 12 11 ASSESSMENT and PLAN: Pt is a 70 y.o. with history of glaucoma who presented with postmenopausal bleeding and was found to have grade 2 endometrial adenocarcinoma. She is now POD#1 from a robo assisted total hysterectomy with b/l salpingo-oophorectomy, L ureterolysis, and radical tumor debulking with peritoneal stripping. Her post-op course has been stable with adequate pain and nausea return. Continue routine post-op care: Pain regimen: tylenol, dilaudid, chava Encourage incentive spirometry and continue abdominal binder GI: advance diet as tolerated; continue bowel regime; encourage ambulation. : voiding spontaneously; monitor output. Heme: post-op Hgb stable; monitor if symptomatic. ID: afebrile, monitor for infection. Onc: await pathology results Mario Cruz Medical Student, MS-3 Resident Attestation I have seen and evaluated the patient, and have also reviewed the documentation above. I have repeated and performed the carson portions of the physical exam and concur with the student's findings. I agree with the plan as noted above with any changes made as necessary. Jalyn Camp MD Evaluation Manager Resident PGY-2 08/08/25 6:38 AM Cosigned by Dennis Monson MD at 08/08/2025 8:06 AM EST Associated attestation - Dennis Monson MD - 08/08/2025 8:06 AM EST Attending Attestation: I saw the patient. I participated and was physically present during the critical/carson portions of the service. I was directly involved in the management and treatment plan of the patient. I reviewed the resident's note. Additional Notes/Findings: Progressive postop care, home soon, findings intra-op reviewed, pathology pending. * Jalyn Camp MD - 08/07/2025 6:39 AM EST [facility] Daily Progress Note Admission Date: 08/04/2025 Hospital Day: 2 days Subjective: Eunice Anderson is a 70 y.o. POD#3 from dilation and curettage , doing well. No acute events overnight. Her pain is controlled with PO Tylenol, Motrin, and Roxicodone prn. Patient is complaining of some nausea. She is NPO for surgery today. Patient denies chest pain, shortness of breath, fever, orchills. Voiding without difficulty. Patient has been ambulating. has passed flatus and has not had a bowel movement. Objective: Vitals: 08/06/251921 BP: 124/66 Pulse: 77 Resp: 18 Temp: 37 ??C (98.6 ??F) SpO2: 92% Intake/Output Summary (Last 24 hours) at 08/07/2025 0639 Last data filed at 08/07/2025611 Gross per 24 hour Intake 355 ml Output 650 ml Net -295 ml Temp: [37 ??C (98.6 ??F)-37.1 ??C (98.8 ??F)] 37 ??C (98.6 ??F) Pulse: [77] 77 Resp: [18] 18 BP: (124-130)/(62-66) 124/66 SpO2: [92 %-94 %] 92 % O2 Device: None (Room air) O2 Flow Rate (L/min): [0 L/min] 0 L/min Lab Results Component Value Date WBC 18.4 (H) 08/07/2025 HGB 8.3 (L) 08/07/2025 HCT 25.3 (L) 08/07/2025 MCV 88 08/07/2025 PLT 345 08/07/2025 Lab Results Component Value Date GLU 111 (H) 08/06/2025 CALCIUM 8.1 (L) 08/06/2025 K 3.6 08/06/2025 CO2 20 (L) 08/06/2025 BUN 16 08/06/2025 CREATININE 0.68 08/06/2025 No results found for: CA125 No components found for: HE4 No results found for: CEA No results found for: CA199 No results found for: PREALBUMIN Results from last 7 days Lab Units 08/04/25 0530 INR 1.0 Lab Results Component Value Date CALCIUM 8.1 (L) 08/06/2025 No results found for: TSH , T4 GENERAL APPEARANCE: alert, well appearing, in no apparent distress, oriented to person, place and time CARDIOVASCULAR:RR LUNGS: Symmetrical air entry. ABDOMEN: soft, nondistended, and nontender EXTREMITIES: No edema; no calf tenderness. Assessment/Plan: Eunice Anderson is a 70 y.o. GNo obstetric history on file. POD#3 from a dilation and curettage for acute blood loss anemia. 1. Continue routine post-op care. -Pain regimen: tylenol, chava, dilaudid prn -Encouraged ambulating with assistance -Nausea/vomiting: s/p zofran x1 > encouraged hydration 2. Uterine mass -CT chest w/ IV(08/05): Left lower lobe lung nodule suspicious for metastatic disease measuring 8.4 mm. PET/CT recommended. Another nodule measuring approximately 5 mm not delineated on this examination probably because it is obscured by new atelectasis. Left axillary adenopathy and equivocal right axillary adenopathy suspicious for metastatic disease.Wall thickening involving the distal esophagus at the GEJ. This could be due to hiatal hernia or inflammation or neoplasm. Endoscopy suggested. -CTAP (Abigail): complex uterine mass c/f malignancy 9.6x5.8x5.2cm, mass vs enlarged pelvic LN in right pelvis, 7mm lung nodule in lingula -Plan for RA-TLHS, BSO, and SLND today 3. Acute blood loss anemia secondary to vaginal bleeding -Pad count: 1 pad -S/p vaginal packing -VSS -Hgb 7.2 (OSH)>5.8>2u pRBC>9.1>8>8.3>8.3 Jalyn Camp MD Evaluation Manager Resident, PGY-3 If questions or concerns, please contact via [facility] pager at [phone]. Cosigned by Dennis Monson MD at 08/07/2025 11:22 AM EST Associated attestation - Dennis Monson MD - 08/07/2025 11:22 AM EST Attending Attestation: I saw the patient. I participated and was physically present during the critical/carson portions of the service. I was directly involved in the management and treatment plan of the patient. I reviewed the resident's note. Additional Notes/Findings: Plan to OR today for definitive surgical management, path w Grade 2 endometrial cancer * Nusrat Ramirez MD - 08/06/2025 7:09 AM EST [facility] Daily Progress Note Admission Date: 08/04/2025 Hospital Day: 1 day Subjective: Eunice Anderson is a 70 y.o., POD#2 from dilation and curettage doing well. No acute events overnight. Her pain is moderate and has not taken any pain medication. Patient is complaining of nausea overnight and 1 episode of vomiting at 0400am. She was tolerating Regular diet but has not tried to eat since yesterday afternoon. Patient denies chest pain, shortness of breath, fever, or chills. Voiding without difficulty. Patient has not been ambulating. She has passed flatus and has not had a bowel movement. Objective: Vitals: 08/05/252099 BP: 131/67 Pulse: Resp: Temp: SpO2: Intake/Output Summary (Last 24 hours) at 08/06/2025 0709 Last data filed at 08/05/2025 2100 Gross per 24 hour Intake -- Output 1250 ml Net -1250 ml Temp: [37.2 ??C (99 ??F)-37.9 ??C (100.3 ??F)] 37.4 ??C (99.3 ??F) Pulse: [67-80] 80 Resp: [17-21] 18 BP: (110-131)/(58-67) 131/67 SpO2: [95 %-98 %] 95 % O2 Device: None (Room air) UOP: 200 ml/12hr Lab Results Component Value Date WBC 19.8 (H) 08/05/2025 HGB 8.0 (L) 08/05/2025 HCT 24.4 (L) 08/05/2025 MCV 88 08/05/2025 PLT 288 08/05/2025 Lab Results Component Value Date GLU 120 (H) 08/05/2025 CALCIUM 8.0 (L) 08/05/2025 K 3.3 (L) 08/05/2025 CO2 21 (L) 08/05/2025 BUN 13 08/05/2025 CREATININE 0.68 08/05/2025 Results from last 7 days Lab Units 08/04/25 0530 INR 1.0 Lab Results Component Value Date CALCIUM 8.0 (L) 08/05/2025 GENERAL APPEARANCE: alert, well appearing, oriented to person, place and time CARDIOVASCULAR: RRR LUNGS: CTAB. No respiratory distress ABDOMEN: soft, nondistended, and appropriately tender EXTREMITIES: no LLE; no calf tenderness. Assessment/Plan: Eunice Anderson is a 70 y.o. POD#2 from a dilation and curettage and acute blood loss anemia. 1. Continue routine post-op care. -Pain regimen: tylenol, chava, dilaudid prn: Appropriate -Encouraged ambulating with assistance -Nausea/vomiting: s/p zofran x1 > encouraged hydration 2. Uterine mass -CT chest w/ IV(08/05): Left lower lobe lung nodule suspicious for metastatic disease measuring 8.4 mm. PET/CT recommended. Another nodule measuring approximately 5 mm not delineated on this examination probably because it is obscured by new atelectasis. Left axillary adenopathy and equivocal right axillary adenopathy suspicious for metastatic disease.Wall thickening involving the distal esophagus at the GEJ. This could be due to hiatal hernia or inflammation or neoplasm. Endoscopy suggested. -CTAP (Abigail): complex uterine mass c/f malignancy 9.6x5.8x5.2cm, mass vs enlarged pelvic LN in right pelvis, 7mm lung nodule in lingula -Gynecology Oncology office messaged for follow up appointment with Dr. Santiago 3. Vaginal bleeding -Pad count: 1 pad since yesterday night with minimal spotting -S/p vaginal packing 4. Acute blood loss anemia -VSS -S/p 2U PRBCs on 08/04 -Hgb 7.2 (OSH)>5.8>2u pRBC>9.1>8>8.3 -WBC 13.7 (OSH)>14.4>19.8>21.4 4. Continue Regular diet. 5. Anticipate home when patient able to ambulate and hold food down. Nusrat Ramirez MD Evaluation Manager Resident, PGY-1 If questions or concerns, please contact via GynOn pager at [phone]. Cosigned by Sherry Cuellar MD at 08/06/2025 5:52 PM EST Associated attestation - Sherry Cuellar MD - 08/06/2025 5:52 PM EST Attending Attestation: I saw the patient. I participated and was physically present during the critical/carson portions of the service. I was directly involved in the management and treatment plan of the patient. I reviewed the resident's note. Additional Notes/Findings: 70 yo w suspected uterine cancer POD#2 s/p Hscope D&C. Hb stable. Pt will require surgical management w hysterectomy. Consented for surgery w Dr. Monson - tentatively tomorrow. Continue supportive care. * Annita Still MD - 08/05/2025 6:24 AM EST [facility] Daily Progress Note Admission Date: 08/04/2025 Hospital Day: 1 day Subjective: Eunice Anderson is a 70 y.o. female POD#1 from dilation and curettage, doing well. No acute eventsovernight. Her pain is controlled with PO Tylenol and Roxicodone prn. She reports some pelvic cramping but overall is doing well. Patient is not complaining of nausea or vomiting. She is tolerating Regular diet. Patient denies chest pain, shortness of breath, fever, or chills. Thakkar catheter in place draining clear yellow urine. Patient has not been ambulating. She has passed flatus and has not had a bowel movement. Objective: Vitals: 08/04/25 1929 BP: 107/54 Pulse: 69 Resp: 18 Temp: 36.9 ??C (98.4 ??F) SpO2: 94% Intake/Output Summary (Last 24 hours) at 08/05/2025 0748 Last data filed at 08/04/2025 2100 Gross per 24 hour Intake 2302.5 ml Output 400 ml Net 1902.5 ml Temp: [36.2 ??C (97.2 ??F)-37 ??C (98.6 ??F)] 36.9 ??C (98.4 ??F) Pulse: [59-73] 69 Resp: [12-20] 18 BP: (104-136)/(50-73) 107/54 FiO2 (%): [100 %] 100 % SpO2: [94 %-100 %] 94 % O2 Device: None (Room air) O2 Flow Rate (L/min): [6 L/min] 6 L/min Lab Results Component Value Date WBC 19.8 (H) 08/05/2025 HGB 8.0 (L) 08/05/2025 HCT 24.4 (L) 08/05/2025 MCV 88 08/05/2025 PLT 288 08/05/2025 Lab Results Component Value Date GLU 154 (H) 08/05/2025 CALCIUM 8.0 (L) 08/05/2025 K 3.5 08/05/2025 CO2 21 (L) 08/05/2025 BUN 15 08/05/2025 CREATININE 0.69 08/05/2025 No results found for: CA125 No components found for: HE4 No results found for: CEA No results found for: CA199 No results found for: PREALBUMIN Results from last 7 days Lab Units 08/04/25 0530 INR 1.0 Lab Results Component Value Date CALCIUM 8.0 (L) 08/05/2025 No results found for: TSH , T4 GENERAL APPEARANCE: alert, well appearing, in no apparent distress, oriented to person, place and time CARDIOVASCULAR: RRR LUNGS: No respiratory distress ABDOMEN: soft, nondistended, and nontender : vaginal packing in place without active bleeding noted. Thakkar catheter in place draining clear yellow urine EXTREMITIES: 1+ bilateral pedal edema; no calf tenderness. Assessment/Plan: Eunice Anderson is a 70 y.o. No obstetric history on file. POD#1 from a dilation and curettage forvaginal bleeding and acute blood loss anemia 1. Continue routine post-op care. - Pain regimen: Appropriate. - Encourage ambulating with assistance. 2. Uterine mass - Awaiting imaging upload by radiology 3. Vaginal bleeding - Vaginal bleeding stable. Consider removal of packing and thakkar today. - Surgical pathology in process 4. Acute blood loss anemia - VSS - S/p 2UPRBC on 08/04 - Hgb 5.8>2UPRBC>9.1>8 5. Anticipate home today with close follow up with [facility] for pathology review and treatment planning. Annita Rejent, MD Evaluation Manager Resident, PGY-2 If questions or concerns, please contact via GynOn pager at [phone]. Cosigned by Rocio Santiago MD at 08/05/2025 12:42 PM EST Associated attestation - Rocio Santiago MD - 08/05/2025 12:42 PM EST Attending Attestation: I saw the patient. I participated and was physically present during the critical/carson portions of the service. I was directly involved in the management and treatment plan of the patient. I reviewed the resident's note. Additional Notes/Findings: Patient doing well this morning. No bleeding through the vaginal packing overnight. Will plan for removal today and observation to ensure stability. Possible discharge to home today if bleeding remains stable. Close interval follow up with visit with me in the office Wednesday at 11:30 to discuss next steps. Will obtain CT chest prior to discharge from the hospital for metastatic evaluation and treatment planning. Reassess for possible discharge this afternoon after packing has been removed. ROCIO SANTIAGO MD documented in this encounter H&P Notes * Manuel Busby MD - 08/07/2025 3:36 PM EST Images from the original note were not included. CHIEF COMPLAINT: Colon dilation History of Present Illness: Eunice Anderson is a 70 y.o. female was being skillfully manage by Dr. Monson and his team. Was undergoing hysterectomy for cervical cancer. Had known cervical cancer. Upon getting into the abdomen.The entire colon was very dilated and so was the distal terminal ileum. I was called in for evaluation. Spoke with Dr. Monson. Veress needle was used to inserted into the abdomen. But there was low pressures. And no return of blood or stool. Patient had known cervical cancer. CT done at outside hospital was present HPI Past Medical History: Diagnosis Date Anemia Glaucoma Rash Visual impairment Patient Active Problem List Diagnosis Pelvic mass Vagina bleeding Vaginal bleeding Past Surgical History: Procedure Laterality Date DILATION CURETTAGE N/A 08/04/2025 Performed by Rocio Santiago MD at [facility] Allergies Allergen Reactions Latex Hives and Facial Swelling Dye Dermatitis Current Facility-Administered Medications: [Transfer Hold] acetaminophen (TYLENOL EXTRA STRENGTH) tablet 1,000 mg, 1,000 mg, oral, Q6H PRN, Annita Still MD, 1,000 mg at 08/06/25 0758 [Transfer Hold] dextrose (GLUTOSE) 40 % gel 15 g, 15 g, oral, PRN, Annita Still MD [Transfer Hold] dextrose (GLUTOSE) 40 % gel 15 g, 15 g, oral, PRN, Sarah Snydera, DO [Transfer Hold] dextrose 5 % (D5W) infusion, 100 mL/hr, intravenous, Continuous PRN, Annita Still MD [Transfer Hold] dextrose 5 % (D5W) infusion, 100 mL/hr, intravenous, Continuous PRN, Sarah Wilsonalla, DO dextrose 5 % (D5W) infusion, 100 mL/hr, intravenous, Continuous PRN, Mahendra Rico MD [Transfer Hold] dextrose 50 % in water (D50W) 50% solution 25 mL, 25 mL, intravenous, PRN, Annita Still MD [Transfer Hold] dextrose 50 % in water (D50W) 50% solution 25 mL, 25 mL, intravenous, PRN, Sarah Wilsonalla, DO dextrose 50 % in water (D50W) 50% solution 25 mL, 25 mL, intravenous, PRN, Mahendra Rico MD [Transfer Hold] glucagon HCL injection 1 mg, 1 mg, intramuscular, PRN, Annita Still MD [Transfer Hold] glucagon HCL injection 1 mg, 1 mg, intramuscular, PRN, Sarah Wilsonalla, DO glucagon HCL injection 1 mg, 1 mg, intramuscular, PRN, Mahendra Rico MD [Transfer Hold] HYDROmorphone (DILAUDID) injection 0.5 mg, 0.5 mg, intravenous, Q4H PRN, DO Hilario [Transfer Hold] HYDROmorphone (PF) (DILAUDID) injection 0.5 mg, 0.5 mg, intravenous, Q4H PRN, Annita Still MD lactated ringers infusion, 50 mL/hr, intravenous, Continuous, Mahendra Rico MD, Last Rate: 50 mL/hr at 08/07/25 1255, 50 mL/hr at 08/07/25 1255 lidocaine PF (XYLOCAINE) 10 mg/mL (1 %) injection 1 mg, 0.1 mL, intradermal, PRN, Mahendra Rico MD, 50 mL at 08/07/25 1340 [Transfer Hold] ondansetron (PF) (ZOFRAN) injection 8 mg, 8 mg, intravenous, Q8H PRN, Brittnee Sam MD, 8 mg at 08/07/25 0837 [Transfer Hold] oxyCODONE (ROXICODONE) immediate release tablet 10 mg, 10 mg, oral, Q6H PRN OR [Transfer Hold] oxyCODONE (ROXICODONE) immediate release tablet 5 mg, 5 mg, oral, Q6H PRN, Brittnee Sam MD, 5 mg at 08/07/25 0829 [Transfer Hold] potassium chloride (K-TAB,KLOR-CON) CR tablet 30-50 mEq, 30-50 mEq, oral, PRN OR [Transfer Hold] potassium chloride (KAYCIEL) 20 mEq/15 mL solution 30-50 mEq, 30-50 mEq, oral, PRNOR [Transfer Hold] potassium chloride IVPB 10 mEq/100 mL in water (0.1 mEq/mL premix), 10 mEq, intravenous, PRN, Brittnee Sam MD, Stopped at 08/06/25 0309 [Transfer Hold] prochlorperazine (COMPAZINE) injection 5 mg, 5 mg, intravenous, Q8H PRN, Brittnee Sam MD, 5 mg at 08/07/25 0214 [Transfer Hold] simethicone (MYLICON) chewable tablet 80 mg, 80 mg, oral, 4x Daily PRN, Brittnee Sam MD, 80 mg at 08/05/252054 [Transfer Hold] sodium chloride 0.9 % flush 10 mL, 10 mL, intravenous, PRN, Rocio Santiago MD, 10 mLat 08/05/25 1214 [Transfer Hold] sodium chloride 0.9 % flush 3 mL, 3 mL, intravenous, PRN, Annita Still MD [Transfer Hold] sodium chloride 0.9 % flush 3 mL, 3 mL, intravenous, Q12H IONAnnita MD, 3 mL at 08/07/25 0824 sodium chloride 0.9 % flush 3 mL, 3 mL, intravenous, Q12H IONMahendra MD sodium chloride 0.9 % flush 3 mL, 3 mL, intravenous, PRN, Mahendra Rico MD sodium chloride 0.9 % flush 3 mL, 3 mL, intravenous, Q12H Mahendra LEMON MD [Transfer Hold] sodium chloride 0.9 % flush bag, 25 mL, intravenous, PRN, Annita Still MD [Transfer Hold] sodium chloride 0.9 % flush bag, 25 mL, intravenous, PRN, Sarah Strange DO [Transfer Hold] timolol (TIMOPTIC) 0.5 % ophthalmic solution 1 drop, 1 drop, both eyes, BID, Sarah Strange DO, 1 drop at 08/07/25 0824 Facility-Administered Medications Ordered in Other Encounters: albumin human 5 % IVPB Premix, , intravenous, PRN, Mahendra Rico MD, 12.5 g at 08/07/25 1535 calcium chloride 100 mg/mL (10 %) injection syringe, , intravenous, PRN, Mahendra Rico MD, 200 mg at 08/07/25 1427 dexAMETHasone (DECADRON) injection, , intravenous, PRN, Mahendra Rico MD, 4 mg at 08/07/25 1345 fentaNYL (SUBLIMAZE) injection, , intravenous, PRN, Mahendra Rico MD, 50 mcg at 08/07/25 1531 HYDROmorphone (PF) (DILAUDID) injection, , intravenous, PRN, Mahendra Rico MD, 0.2 mg at 08/07/25 1452 lactated ringers infusion, , intravenous, Continuous PRN, Mahendra Rico MD, New Bag at 422 midazolam (VERSED) injection, , intravenous, PRN, Mahendra Rico MD, 2 mg at 08/07/25 1335 phenylephrine (COLTEN-SYNEPHRINE) injection, , intravenous, PRN, Mahendra Rico MD, 100 mcg at 08/07/25 1359 potassium chloride IVPB 10 mEq/100 mL in water (0.1 mEq/mL premix), , intravenous, PRN, Mahendra Rico MD, Stopped at 08/07/25 1508 propofoL (DIPRIVAN) infusion, , intravenous, PRN, Mahendra Rico MD, 130 mg at 08/07/25 1340 rocuronium (ZEMURON) injection, , intravenous, PRN, Mahendra Rico MD, 10 mg at 08/07/25 1525 Social History Socioeconomic History Marital status: Spouse name: Not on file Number of children: Not on file Years of education: Not on file Highest education level: Not on file Occupational History Not on file Tobacco Use Smoking status: Never Smokeless tobacco: Never Vaping Use Vaping status: Never Used Substance and Sexual Activity Alcohol use: Never Drug use: Never Sexual activity: Defer Other Topics Concern Not on file Social History Narrative Not on file Social Drivers of Health Financial Resource Strain: Not on file Food Insecurity: No Food Insecurity (08/05/2025) Hunger Screening Food Insecurity - Worry: Never True Food Insecurity - Inability: Never True Transportation Needs: No Transportation Needs (08/04/2025) PRAPARE - Transportation Lack of Transportation (Medical): No Lack of Transportation (Non-Medical): No Physical Activity: Not on file Stress: Not on file Social Connections: Not on file Interpersonal Safety: Patient Unable To Answer (08/04/2025) Humiliation, Afraid, Rape, and Kick questionnaire Fear of Current or Ex-Partner: Patient unable to answer Emotionally Abused: Patient unable to answer Physically Abused: Patient unable to answer Sexually Abused: Patient unable to answer Housing Instability: Low Risk (08/04/2025) Housing Instability Housing Instability: No Family History Problem Relation Age of Onset Cancer Mother Cancer Father Review of Systems Reason unable to perform ROS: Patient is intubated. Physical Exam Constitutional: Comments: Unable to perform the patient is currently being operated in his sterile. Vital Signs: Blood pressure 117/62, pulse 77, temperature 37.1 ??C (98.8 ??F), temperature source Skin, resp. rate 20, height 157.5 cm (5' 2.01 ), weight 76 kg (167 lb 8.8 oz), SpO2 93%. Respiratory Source: O2 Device: Endotracheal tube Admission Weight: Weight: 75.2 kg (165 lb 12.6 oz) Labs I reviewed today: Lab Results Component Value Date WBC 18.4 (H) 08/07/2025 HGB 8.3 (L) 08/07/2025 HCT 25.3 (L) 08/07/2025 MCV 88 08/07/2025 PLT 345 08/07/2025 Lab Results Component Value Date GLU 109 (H) 08/07/2025 CALCIUM 8.0 (L) 08/07/2025 K 3.2 (L) 08/07/2025 CO2 23 08/07/2025 CL 110 (H) 08/07/2025 BUN 20 08/07/2025 CREATININE 0.67 08/07/2025 No results found for: AMYLASE No results found for: LIPASE Lab Results Component Value Date ALT 4 08/07/2025 AST 10 08/07/2025 ALKPHOS 52 08/07/2025 Lab Results Component Value Date INR 1.0 08/04/2025 PROTIME 11.8 08/04/2025 Imaging I personally interpreted: Reviewed the CTof the abdomen and pelvis. There was no signs of a apple-core lesion. Or any obstructing tumor of the rectum or sigmoid. Assessment: Eunice Anderson is a 70 y.o.female with Dilated colon. Patient specific Risk factors that make this more difficult of a case Obesity Significant tumor burden Elderly age High fraility score Cervical cancer Plan: After evaluation of the CT. In the intraoperative findings that a saw with my own eyes. I do have fears some that there maybe some involvement of the rectum or lower sigmoid with tumor. Decision was made to perform on-table sigmoidoscopy. Which is low risk but would help significantly the patient does have an obstructing tumor. Manuel Busby MD, FACS [facility] General Surgeons Minimally Invasive Robotic Surgery Board Certified in General Surgery Board Certified in Critical Care Office: [phone] Email: [email or web address] Thank you for allowing me to participate in the care of your patient. Please feel free to contact me with any questions or concerns. [phone] * Dennis Monson MD - 08/07/2025 11:26 AM EST HISTORY AND PHYSICAL INTERVAL NOTE: Eunice Anderson 1955 [id number] H&P reviewed. The patient was examined and there are no changes to the H&P. Dennis Monson MD Source Note - Jalyn Camp MD - 08/07/2025 6:39 AM EST [facility] Daily Progress Note Admission Date: 08/04/2025 Hospital Day: 2 days Subjective: Eunice Anderson is a 70 y.o. POD#3 from dilation and curettage , doing well. No acute events overnight. Her pain is controlled with PO Tylenol, Motrin, and Roxicodone prn. Patient is complaining of some nausea. She is NPO for surgery today. Patient denies chest pain, shortness of breath, fever, orchills. Voiding without difficulty. Patient has been ambulating. has passed flatus and has not had a bowel movement. Objective: Vitals: 08/06/251921 BP: 124/66 Pulse: 77 Resp: 18 Temp: 37 ??C (98.6 ??F) SpO2: 92% Intake/Output Summary (Last 24 hours) at 08/07/2025 0639 Last data filed at 08/07/2025 0612 Gross per 24 hour Intake 355 ml Output 650 ml Net -295 ml Temp: [37 ??C (98.6 ??F)-37.1 ??C (98.8 ??F)] 37 ??C (98.6 ??F) Pulse: [77] 77 Resp: [18] 18 BP: (124-130)/(62-66) 124/66 SpO2: [92 %-94 %] 92 % O2 Device: None (Room air) O2 Flow Rate (L/min): [0 L/min] 0 L/min Lab Results Component Value Date WBC 18.4 (H) 08/07/2025 HGB 8.3 (L) 08/07/2025 HCT 25.3 (L) 08/07/2025 MCV 88 08/07/2025 PLT 345 08/07/2025 Lab Results Component Value Date GLU 111 (H) 08/06/2025 CALCIUM 8.1 (L) 08/06/2025 K 3.6 08/06/2025 CO2 20 (L) 08/06/2025 BUN 16 08/06/2025 CREATININE 0.68 08/06/2025 No results found for: CA125 No components found for: HE4 No results found for: CEA No results found for: CA199 No results found for: PREALBUMIN Results from last 7 days Lab Units 08/04/25 0530 INR 1.0 Lab Results Component Value Date CALCIUM 8.1 (L) 08/06/2025 No results found for: TSH , T4 GENERAL APPEARANCE: alert, well appearing, in no apparent distress, oriented to person, place and time CARDIOVASCULAR:RR LUNGS: Symmetrical air entry. ABDOMEN: soft, nondistended, and nontender EXTREMITIES: No edema; no calf tenderness. Assessment/Plan: Eunice Anderson is a 70 y.o. GNo obstetric history on file. POD#3 from a dilation and curettage for acute blood loss anemia. 1. Continue routine post-op care. -Pain regimen: tylenol, chava, dilaudid prn -Encouraged ambulating with assistance -Nausea/vomiting: s/p zofran x1 > encouraged hydration 2. Uterine mass -CT chest w/ IV(08/05): Left lower lobe lung nodule suspicious for metastatic disease measuring 8.4 mm. PET/CT recommended. Another nodule measuring approximately 5 mm not delineated on this examination probably because it is obscured by new atelectasis. Left axillary adenopathy and equivocal right axillary adenopathy suspicious for metastatic disease.Wall thickening involving the distal esophagus at the GEJ. This could be due to hiatal hernia or inflammation or neoplasm. Endoscopy suggested. -CTAP (Abigail): complex uterine mass c/f malignancy 9.6x5.8x5.2cm, mass vs enlarged pelvic LN in right pelvis, 7mm lung nodule in lingula -Plan for RA-TLHS, BSO, and SLND today 3. Acute blood loss anemia secondary to vaginal bleeding -Pad count: 1 pad -S/p vaginal packing -VSS -Hgb 7.2 (OSH)>5.8>2u pRBC>9.1>8>8.3>8.3 Jalyn Camp MD Evaluation Manager Resident, PGY-3 If questions or concerns, please [facility] p[facility] at [phone]. Cosigned by Dennis Monson MD at 08/07/2025 11:22 AM EST * Annita Still MD - 08/04/2025 3:38 AM EST Gynecology Oncology Consultation Date of Admission: 08/04/2025 3:32 AM Chief Complaint : Uterine mass, vaginal bleeding History of Present Illness : Eunice Anderson is a 70 y.o. female with PMH of glaucoma who presents as a transport from [facility] for vaginal bleeding. Patient reports vaginal spotting that began 2 days ago. She reports feeling weak, lightheaded, and nauseous 1 day ago while at work and went to the bathroom where she filled the toilet with blood. Patient was brought to [facility] where [facility] that revealed a likely uterine mass and possible enlarged lymph node. Hgb at the time was 9mg/dl and vaginal bleeding was stable. Patient was referred to OBGYN outpatient for close follow up. She reports worsening vaginal bleeding overnight along with weakness, lightheadedness, nausea. She also reports intermittent painful cramps and passage of clots. She was taken to [facility] for evaluation. Per report, the patient was vitally stable, pale, and hgb was 7.2mg/dl. On exam, 1 large clot was cleared from the vagina and another remained at the cervical os with a slow trickle of active bleeding. Patient was given IVF and decision was made to transport patient to [facility] for Gynecology Oncology evaluation for vaginal bleeding in the setting of a pelvic mass. 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 Denies prior gynecologic surgery. Denies hx of abnormal pap smears. She reports menopause at age 62yo. Reports some vaginal spotting with wiping 6mo ago. Denies previous . She reports her mother had breast cancer. She last had a mammogram 5yr ago, which she states was normal. Patient has never had a colonoscopy. Past Medical History : Glaucoma Past Surgical History: No past surgical history on file. Allergies: Allergies Allergen Reactions Latex Hives and Facial Swelling Dye Dermatitis Current Medications: Current Facility-Administered Medications: dextrose (GLUTOSE) 40 % gel 15 g, 15 g, oral, PRN, Annita Still MD dextrose 5 % (D5W) infusion, 100 mL/hr, intravenous, Continuous PRNAnnita MD dextrose 50 % in water (D50W) 50% solution 25 mL, 25 mL, intravenous, PRNAnnita MD glucagon HCL injection 1 mg, 1 mg, intramuscular, PRNAnnita MD HYDROmorphone (PF) (DILAUDID) injection 0.2 mg, 0.2 mg, intravenous, Once, Annita Still MD sodium chloride 0.9 % flush 3 mL, 3 mL, intravenous, PRNAnnita MD sodium chloride 0.9 % flush 3 mL, 3 mL, intravenous, Q12H IONAnnita MD sodium chloride 0.9 % flush bag, 25 mL, intravenous, PRNAnnita MD sodium chloride 0.9 % infusion, 20 mL/hr, intravenous, Continuous PRNAnnita MD Social History: Social History Socioeconomic History Marital status: Not on file Spouse name: Not on file Number of children: Not on file Years of education: Not on file Highest education level: Not on file Occupational History Not on file Tobacco Use Smoking status: Not on file Smokeless tobacco: Not on file Substance and Sexual Activity Alcohol use: Not on file Drug use: Not on file Sexual activity: Not on file Other Topics Concern Not on file Social History Narrative Not on file Social Drivers of Health Financial Resource Strain: Not on file Food Insecurity: Not on file Transportation Needs: Not on file Physical Activity: Not on file Stress: Not on file Social Connections: Not on file Interpersonal Safety: Not on file Housing Instability: Not on file Family History: No family history on file. Review of Systems: Review of Systems Constitutional: Positive for malaise/fatigue. Negative for chills and fever. Cardiovascular: Negative for chest pain. Respiratory: Negative for cough and shortness of breath. Gastrointestinal: Positive for nausea. Negative for constipation, diarrhea and vomiting. Genitourinary: Positive for pelvic pain. Negative for dysuria. Neurological: Positive for light-headedness. Negative for headaches, numbness and sensory change. Psychiatric/Behavioral: The patient is nervous/anxious. Physical Exam: Vital Signs: Pulse: [69] 69 BP: (119)/(54) 119/54 SpO2: [99 %] 99 % O2 Device: None (Room air) Admission Weight: Weight: 75.2 kg (165 lb 12.6 oz) General Appearance: Mild distress and Pale Head: Normocephalic, without obvious abnormality, atraumatic Lungs: normal work of breathing Heart: regular rate Abdomen: soft, nontender, nondistended Pelvic: Dried blood on perineum. Normal-appearing external genitalia, urethra. 15 cc of bright red blood in posterior vagina, cleared with for swabs. No obvious lesions on cervix. Small blood clot visualized at cervical os. Small active trickle of bleeding from cervical os. Endometrial biopsy was attempted but was not successful. Patient did not tolerate exam. Extremities: extremities normal, atraumatic, no cyanosis or edema Skin: Skin color, texture, turgor normal. No rashes or lesions Neurologic: Grossly normal Laboratory data: I have reviewed the following labs: No results found for this or any previous visit (from the past 72 hours). No results found for: HGBA1C No results found for: PREALBUMIN No results found for: CA125 No components found for: HE4 No results found for: CEA No components found for: CA19-9 Imaging Studies: CD of imaging studies sent with patient, given to Radiology Reading Room for upload. CTAP (OSH): complex uterine mass c/f malignancy 9.6x5.8x5.2cm, mass vs enlarged pelvic LN in right pelvis, 7mm lung nodule in lingula Problem List: Principal Problem: Pelvic mass Assessment/Plan: Eunice Anderson is a 70 y.o. female presenting at a transport from outside hospital due to vaginalbleeding in new pelvic mass. Vaginal bleeding, mass concerning for malignancy - Afebrile, VSS - Pt pale, weak, nauseous - Hgb down trending to 5.8. Will give 2 units of packed red blood cells - Patient continues to have active bleeding from cervical os. EMB not tolerated and was not obtained. - Imaging awaiting upload by radiology - Due to drop in hemoglobin, ongoing bleeding, unsuccessful EMB, we will proceed to OR for dilationand curettage - Informed consent obtained with patient, form signed, all questions answered - Operating room booked class [address] Santiago Annita Still MD Evaluation Manager Resident, PGY-2 If questions or concerns, please contact [facility] at [phone]. Cosigned by Rocio Santiago MD at 08/04/2025 9:01 AM EST Associated attestation - Rocio Santiago MD - 08/04/2025 9:01 AM EST Attending Attestation: I saw the patient. I participated and was physically present during the critical/carson portions of the service. I was directly involved in the management and treatment plan of the patient. I reviewed the resident's note. Additional Notes/Findings: Patient with vaginal bleeding and resultant acute blood loss anemia. Two units PRBCs ordered for Hgb 5.8. Plan for D&C for diagnosis and management of bleeding. Reviewed imaging findings with thepatient as concerning for possible endometrial carcinoma. Await D&C results for definitive diagnosis and treatment planning. Small pulmonary nodule seen on CT A/P. Will obtain CT chest while inpatient to fully evaluate for pulmonary nodules. Plan for observation overnight once D&C completedwith post-transfusion CBC. ROCIO SANTIAGO MD documented in this encounter Miscellaneous Notes * Plan of Care - Akiko Torres RN - 08/09/2025 5:27 PM EST Problem: Pain Goal: Patient goal is pain score less than 4, able to rest, and participant in treatment plan as appropriate Description: INTERVENTIONS: 1. Encourage patient or legal sales representative [employer] to report early pain and ask for pain medicine when needed 2. Assess pain using appropriate pain scale and include the scale used when documenting 3. Administer analgesics based on type and severity of pain and evaluate response within appropriate time frame 4. Implement non-pharmacological measures as appropriate and evaluate response 5. Consider cultural and social influences on pain and pain management 6. Notify LIP if interventions ineffective or patient reports new pain 7. Monitor vital signs including pulse ox, end-tidal CO2 based on pain intervention 8. Reassess pain per policy 9. Teach patient or legal sales representative [employer] interventions for comforting 08/09/2025 172 by JORDYN Wharton Outcome: Adequate for Discharge 08/09/2025 1229 by JORDYN Wharton Outcome: Progressing Note: Evaluation of progress towards goal: Medicated for pain as ordered. Continuing to monitor. Problem: Safety Goal: Patient will be injury free during hospitalization Description: INTERVENTIONS: 1. Assess patient's risk for falls and implement fall prevention plan of care per policy 2. Provide and maintain a safe environment 3. Proper use of double Identifiers 4. Medication administration using the 5 rights 5. Hand hygiene 6. Specimens are labeled at the bedside 7. Instruct patient/ patient sales representative [employer] about use of safety devices 8. Include patient/ patient sales representative [employer] in decisions related to safety 08/09/2025 1726 by JORDYN Wharton Outcome: Adequate for Discharge 08/09/2025 1229 by JORDYN Wharton Outcome: Progressing Note: Evaluation of progress towards goal: Patient remains free from injuries at this time. Continuing to monitor. Problem: Infection Goal: Absence of infection during hospitalization Description: INTERVENTIONS 1. Assess and monitor for signs and symptoms of infection. 2. Monitor lab/diagnostic results. 3. Monitor all insertion sites i.e., indwelling lines, tubes and drains. 4. Monitor endotracheal (as able) and nasal secretions for changes in amount and color. 5. Administer medications as ordered. 6. Instruct and encourage patient and family to use good hand hygiene technique. 7. Identify and instruct patient/patient sales representative [employer] in use of appropriate isolation precautionsfor identified infection/symptoms. 8. Provide and discuss with patient/patient sales representative rural [employer] on educational MDRO sheet. 9. Encourage and monitor nutritional status daily and consult program developer if indicated. 10. Implement neutropenic guidelines as needed. 08/09/20251725 by JORDYN Wharton Outcome: Adequate for Discharge 08/09/20251228 by JORDYN Wharton Outcome: Progressing Note: Evaluation of progress towards goal: Patient afebrile, vital signs stable at this time. Continuing to monitor. Problem: Knowledge Deficit Goal: Patient/patient sales representative [employer] demonstrates understanding of disease process, treatment plan,medications, and discharge instructions Description: INTERVENTIONS 1. Complete learning assessment and assess knowledge base 2. Provide teaching at level of understanding 3. Provide teaching via preferred learning method(s) 08/09/20251725 by JORDYN Wharton Outcome: Adequate for Discharge 08/09/20251228 by JORDYN Wharton Outcome: Progressing Note: Evaluation of progress towards goal: Patient verbalizes understanding of POC. Continuing to educate/review. Problem: Discharge Planning Goal: Discharge to post-acute care, other facility, or home with appropriate resources Description: Patient's goal is: INTERVENTIONS 1. Conduct assessment to determine patient/family and health care team treatment goals, and need for post-acute services based on payer coverage, community resources, and patient preferences, and barriers to discharge 2. Coordinate with Social work, Care Navigation, and Utilization Review to arrange appropriate level of services according to patient's needs based on patient preference and payer coverage in collaboration with the physician and health care team 3. Address psychosocial, clinical, and financial barriers to discharge as identified in assessment in conjunction with the patient/family and health care team 4. Consult appropriate ancillary services (i.e.. PT/OT/ST, etc) as needed 5. Communicate with and update the patient/family, physician, and health care team regarding progress on the discharge plan 6. Identify discharge learning needs (meds, wound care, etc). 7. Arrange for needed discharge transportation as appropriate 08/09/20251725 by JORDYN Wharton Outcome: Adequate for Discharge 08/09/20251228 by JORDYN Wharton Outcome: Progressing Note: Evaluation of progress towards goal: Discharge planning in progress. Continuing to monitor. Problem: Moderate - High Risk Fall Score Description: Torres Fall Score of =/> 25 or indicated by [facility] Assessment Goal: Patient should be free from fall Description: Interventions: 1. [place] to environment 2. Hourly rounds addressing the 4 P's (Pain, Positioning, Possessions, Potty) 3. Clear area of hazards (spills, clutter, electrical cords, unnecessary equipment) 4. Place equipment (bed & TV controls, call light, phone, urinal) within reach 5. Encourage patient to wear glasses and hearing aides as appropriate 6. Maintain bed in lowest position 7. Lock wheels on bed/wheelchair 8. Provide adequate lighting, including night light 9. Assess need for additional bedding, food/fluids, pain med's prior to sleep/routinely 10. Provide gripper slippers or personal non-skid footwear 11. Teach patient and patient sales representative [employer] to maintain environment for safety and engage in all aspects of fall prevention program 12. Remind patient to call for help before getting out of bed 13. Initiate bed/chair/exit alarms supportive devices as appropriate, (chair wedge, no-skid floor mat, raised edge mattress, hip protectors) 14. Locate patient bed assignment for optimal visualization 15. Evaluate and identify Safe Patient Handling Equipment needs 16. Provide supervision when out of bed or chair 17. Utilize gait belt as needed to assist with ambulation 18. Place adaptive equipment (cane, walker) within reach 19. Request patient sales representative [employer] bring adaptive equipment/mobility aids from home or obtain and provide as needed 20. Consult pharmacy regarding effects of med's affecting mobility, cognition, and alternatives 21. Obtain physician order for PT if risk factors associated with mobility are present 22. Obtain physician order for OT as appropriate 23. Utilize diversional activities 24. Educate patient and patient sales representative [employer] how to maintain a safe environment during visitationtimes (notify nurse prior to leaving bedside) 25. Consider appropriateness of medical or non-medical library assistant 26. Set up voiding schedule as appropriate (every 2 hours) 08/09/2025 1726 by JORDYN Wharton Outcome: Adequate for Discharge 08/09/2025 1229 by JORDYN Wharton Outcome: Progressing Note: Evaluation of progress towards goal: Patient remains free from falls at this time. Interventions in place to help prevent falls. Continuing to monitor. Problem: Potential for Compromised Skin Integrity Goal: Skin integrity is maintained or improved Description: Patient's goal is: INTERVENTIONS 1. Perform initial skin assessment on admission and as needed 2. Turn patient every 2 hours and PRN 3. Relieve pressure to bony prominences 4. Avoid shearing 5. Keep skin clean and dry 6. Alternate a full bath with partial baths for elderly 7. Apply lotion/moisturizer on skin 8. Monitor patient's hygiene practices 9. Float heels 10. Collaborate with interdisciplinary team and initiate plans and interventions as needed Outcome: Adequate for Discharge Goal: Patient's nutritional intake is adequate Description: Patient's goal is: INTERVENTIONS 1. Assess and monitor food intake and supplements, patient food preferences, nausea, vomiting, labs, oral cavity (gums, teeth, tongue, mucosa), proper denture fit, and cultural beliefs 2. Monitor for signs of hypoglycemia and hyperglycemia 3. Collaborate with interdisciplinary team and initiate plan and interventions as ordered 4. Monitor patient's weight 5. Assist patient with meals/food selection 6. Assist patient with eating 7. Allow adequate time for meals 8. Provide pleasant environment during mealtime 9. Increase social contact during mealtimes 10. Plan activities to conserve energy 11. Encourage/perform oral hygiene as appropriate 12. Encourage patient to take dietary supplement as ordered 13. Collaborate with clinical program developer 14. Include patient/ patient's sales representative [employer] in decisions related to nutrition Outcome: Adequate for Discharge Problem: Urinary Incontinence Goal: Perineal skin integrity is maintained or improved Description: INTERVENTIONS 1. Assess genitourinary system, perineal skin, labs (urinalysis), and history of incontinence to include past management, aggravating, and alleviating factors 2. Keep skin clean and dry 3. Apply skin protectant 4. Develop skin care regimen 5. Provide privacy when changing patients incontinence device to maintain their dignity 6. Consider placing an indwelling catheter 7. Collaborate with interdisciplinary team and initiate plans and interventions as needed Outcome: Adequate for Discharge * Plan of Care - Eloisa Doshi [facility] - 08/09/2025 2:16 PM EST Problem: Medication Description: If medication is necessary, use low-risk medication that does not interfere with what matters to the older adult patient, mobility, or mentation across settings of care. Goal: Patient will be screened for high-risk medications once per stay Description: Interventions: 1. Pharmacist to perform medication review to screen for high-risk medications 2. Pharmacist to identify high-risk medications in the Plan of Care note 3. Pharmacist to make recommendations for follow-up in the Plan of Care note, if warranted Outcome: Completed Note: Medications individually and in combination may interfere with What Matters, Mentation, and safe Mobility because of the increased risk of confusion, delirium, unsteadiness and falls. Profile review indicates this patients has active orders for opiates (oxycodone and hydromorphone). Chart revi ew also shows new medication use. * PT/OT/VOICE ENGINEER - Neo Hoskins PTA - 08/09/2025 2:07 PM EST Physical Therapy PT Type of Visit: Patient refusal Reason For Patient Refusal (comment required): Pain, Leaving soon (Pt refused this date d/t pain and stated that she would be leaving later this PM. RN alerted pain level. Educated at length on bed mobility/log rolling, energy conservation, and stair amb (declined to practice). Continue per POC.) Cosigned by Ana Moran PT at 08/10/2025 3:55 PM EST Associated attestation - Ana Moran, PT - 08/10/2025 3:55 PM EST I have reviewed and agree with this note and education documentation for this visit. * Plan of Care - Nusrat Ramirez MD - 08/09/2025 1:49 PM EST A face to face evaluation was completed and patient qualifies for a rolling walker due to patient having a mobility limitation that significantly impairs their ability to participate in one or more MRADL's in the home such as toileting, dressing, grooming and bathing, etc. A mobility limitation is one that prevents patient from accomplishing the MRADL entirely OR places the patient at a reasonably heightened risk or morbidity or mortality secondary to the attempts to perform the MRADL OR prevents the patient from completing the MRADL within a reasonable time frame and the patient can safely use the walker and the functional mobility deficit can be resolved with the use of a walker. Cane waspreviously ruled out. * Plan of Care - Akiko Torres RN - 08/09/2025 12:30 PM EST Problem: Pain Goal: Patient goal is pain score less than 4, able to rest, and participant in treatment plan as appropriate Description: INTERVENTIONS: 1. Encourage patient or legal sales representative [employer] to report early pain and ask for pain medicine when needed 2. Assess pain using appropriate pain scale and include the scale used when documenting 3. Administer analgesics based on type and severity of pain and evaluate response within appropriate time frame 4. Implement non-pharmacological measures as appropriate and evaluate response 5. Consider cultural and social influences on pain and pain management 6. Notify LIP if interventions ineffective or patient reports new pain 7. Monitor vital signs including pulse ox, end-tidal CO2 based on pain intervention 8. Reassess pain per policy 9. Teach patient or legal sales representative [employer] interventions for comforting Outcome: Progressing Note: Evaluation of progress towards goal: Medicated for pain as ordered. Continuing to monitor. Problem: Safety Goal: Patient will be injury free during hospitalization Description: INTERVENTIONS: 1. Assess patient's risk for falls and implement fall prevention plan of care per policy 2. Provide and maintain a safe environment 3. Proper use of double Identifiers 4. Medication administration using the 5 rights 5. Hand hygiene 6. Specimens are labeled at the bedside 7. Instruct patient/ patient sales representative [employer] about use of safety devices 8. Include patient/ patient sales representative [employer] in decisions related to safety Outcome: Progressing Note: Evaluation of progress towards goal: Patient remains free from injuries at this time. Continuing to monitor. Problem: Infection Goal: Absence of infection during hospitalization Description: INTERVENTIONS 1. Assess and monitor for signs and symptoms of infection. 2. Monitor lab/diagnostic results. 3. Monitor all insertion sites i.e., indwelling lines, tubes and drains. 4. Monitor endotracheal (as able) and nasal secretions for changes in amount and color. 5. Administer medications as ordered. 6. Instruct and encourage patient and family to use good hand hygiene technique. 7. Identify and instruct patient/patient sales representative [employer] in use of appropriate isolation precautionsfor identified infection/symptoms. 8. Provide and discuss with patient/patient sales representative [employer] on educational MDRO sheet. 9. Encourage and monitor nutritional status daily and consult program developer if indicated. 10. Implement neutropenic guidelines as needed. Outcome: Progressing Note: Evaluation of progress towards goal: Patient afebrile, vital signs stable at this time. Continuing to monitor. Problem: Knowledge Deficit Goal: Patient/patient sales representative [employer] demonstrates understanding of disease process, treatment plan,medications, and discharge instructions Description: INTERVENTIONS 1. Complete learning assessment and assess knowledge base 2. Provide teaching at level of understanding 3. Provide teaching via preferred learning method(s) Outcome: Progressing Note: Evaluation of progress towards goal: Patient verbalizes understanding of POC. Continuing to educate/review. Problem: Discharge Planning Goal: Discharge to post-acute care, other facility, or home with appropriate resources Description: Patient's goal is: INTERVENTIONS 1. Conduct assessment to determine patient/family and health care team treatment goals, and need for post-acute services based on payer coverage, community resources, and patient preferences, and barriers to discharge 2. Coordinate with Social work, Care Navigation, and Utilization Review to arrange appropriate level of services according to patient's needs based on patient preference and payer coverage in collaboration with the physician and health care team 3. Address psychosocial, clinical, and financial barriers to discharge as identified in assessment in conjunction with the patient/family and health care team 4. Consult appropriate ancillary services (i.e.. PT/OT/ST, etc) as needed 5. Communicate with and update the patient/family, physician, and health care team regarding progress on the discharge plan 6. Identify discharge learning needs (meds, wound care, etc). 7. Arrange for needed discharge transportation as appropriate Outcome: Progressing Note: Evaluation of progress towards goal: Discharge planning in progress. Continuing to monitor. Problem: Moderate - High Risk Fall Score Description: Torres Fall Score of =/> 25 or indicated by [facility] Assessment Goal: Patient should be free from fall Description: Interventions: 1. [place] to environment 2. Hourly rounds addressing the 4 P's (Pain, Positioning, Possessions, Potty) 3. Clear area of hazards (spills, clutter, electrical cords, unnecessary equipment) 4. Place equipment (bed & TV controls, call light, phone, urinal) within reach 5. Encourage patient to wear glasses and hearing aides as appropriate 6. Maintain bed in lowest position 7. Lock wheels on bed/wheelchair 8. Provide adequate lighting, including night light 9. Assess need for additional bedding, food/fluids, pain med's prior to sleep/routinely 10. Provide gripper slippers or personal non-skid footwear 11. Teach patient and patient sales representative [employer] to maintain environment for safety and engage in all aspects of fall prevention program 12. Remind patient to call for help before getting out of bed 13. Initiate bed/chair/exit alarms supportive devices as appropriate, (chair wedge, no-skid floor mat, raised edge mattress, hip protectors) 14. Locate patient bed assignment for optimal visualization 15. Evaluate and identify Safe Patient Handling Equipment needs 16. Provide supervision when out of bed or chair 17. Utilize gait belt as needed to assist with ambulation 18. Place adaptive equipment (cane, walker) within reach 19. Request patient sales representative rural [employer] bring adaptive equipment/mobility aids from home or obtain and provide as needed 20. Consult pharmacy regarding effects of med's affecting mobility, cognition, and alternatives 21. Obtain physician order for PT if risk factors associated with mobility are present 22. Obtain physician order for OT as appropriate 23. Utilize diversional activities 24. Educate patient and patient sales representative [employer] how to maintain a safe environment during visitationtimes (notify nurse prior to leaving bedside) 25. Consider appropriateness of medical or non-medical library assistant 26. Set up voiding schedule as appropriate (every 2 hours) Outcome: Progressing Note: Evaluation of progress towards goal: Patient remains free from falls at this time. Interventions in place to help prevent falls. Continuing to monitor. * Discharge Planning Note - Yesenia Shaikh RN - 08/09/2025 10:50 AM EST Ongoing Assessment for Discharge Needs Reviewed discharge milestones and patient needs related to discharge plan. Current estimated discharge date of Aug 09, 2025 has been reviewed by treatment team. Per RN during discharge rounds, barriers to discharge: nausea, no other barriers reported Need pended script and place a face to face progress note from OB for a rolling walker Ongoing Assessment for Discharge Needs Flowsheet Row Most Recent Value Referral To Community Referrals / Resources Provided Denies needs Services Requested Patient expects to be discharged to: Home Discharge Disposition Home with self care Does the patient need discharge transportation arranged? No - YESENIA SHAIKH RN 08/09/25 10:52 AM Script and face to face documentation attached to [facility] for patient to receive a rolling walker at discharge. Requested delivery to bedside - YESENIA SHAIKH RN 08/09/25 2:22 PM * Plan of Care - Joana Ibarra RN - 08/08/2025 8:38 PM EST Problem: Pain Goal: Patient goal is pain score less than 4, able to rest, and participant in treatment plan as appropriate Description: INTERVENTIONS: 1. Encourage patient or legal sales representative [employer] to report early pain and ask for pain medicine when needed 2. Assess pain using appropriate pain scale and include the scale used when documenting 3. Administer analgesics based on type and severity of pain and evaluate response within appropriate time frame 4. Implement non-pharmacological measures as appropriate and evaluate response 5. Consider cultural and social influences on pain and pain management 6. Notify LIP if interventions ineffective or patient reports new pain 7. Monitor vital signs including pulse ox, end-tidal CO2 based on pain intervention 8. Reassess pain per policy 9. Teach patient or legal sales representative [employer] interventions for comforting Outcome: Progressing Note: Evaluation of progress towards goal: Prn pain meds effective Problem: Safety Goal: Patient will be injury free during hospitalization Description: INTERVENTIONS: 1. Assess patient's risk for falls and implement fall prevention plan of care per policy 2. Provide and maintain a safe environment 3. Proper use of double Identifiers 4. Medication administration using the 5 rights 5. Hand hygiene 6. Specimens are labeled at the bedside 7. Instruct patient/ patient sales representative [employer] about use of safety devices 8. Include patient/ patient sales representative [employer] in decisions related to safety Outcome: Progressing Note: Evaluation of progress towards goal: No falls or injury this shift Problem: Infection Goal: Absence of infection during hospitalization Description: INTERVENTIONS 1. Assess and monitor for signs and symptoms of infection. 2. Monitor lab/diagnostic results. 3. Monitor all insertion sites i.e., indwelling lines, tubes and drains. 4. Monitor endotracheal (as able) and nasal secretions for changes in amount and color. 5. Administer medications as ordered. 6. Instruct and encourage patient and family to use good hand hygiene technique. 7. Identify and instruct patient/patient sales representative [employer] in use of appropriate isolation precautionsfor identified infection/symptoms. 8. Provide and discuss with patient/patient sales representative rural [employer] on educational MDRO sheet. 9. Encourage and monitor nutritional status daily and consult program developer if indicated. 10. Implement neutropenic guidelines as needed. Outcome: Progressing Note: Evaluation of progress towards goal: No signs or symptoms of infection Problem: Knowledge Deficit Goal: Patient/patient sales representative [employer] demonstrates understanding of disease process, treatment plan,medications, and discharge instructions Description: INTERVENTIONS 1. Complete learning assessment and assess knowledge base 2. Provide teaching at level of understanding 3. Provide teaching via preferred learning method(s) Outcome: Progressing Note: Evaluation of progress towards goal: Patient verbalizes understanding of meds and plan of care Problem: Discharge Planning Goal: Discharge to post-acute care, other facility, or home with appropriate resources Description: Patient's goal is: INTERVENTIONS 1. Conduct assessment to determine patient/family and health care team treatment goals, and need for post-acute services based on payer coverage, community resources, and patient preferences, and barriers to discharge 2. Coordinate with Social work, Care Navigation, and Utilization Review to arrange appropriate level of services according to patient's needs based on patient preference and payer coverage in collaboration with the physician and health care team 3. Address psychosocial, clinical, and financial barriers to discharge as identified in assessment in conjunction with the patient/family and health care team 4. Consult appropriate ancillary services (i.e.. PT/OT/ST, etc) as needed 5. Communicate with and update the patient/family, physician, and health care team regarding progress on the discharge plan 6. Identify discharge learning needs (meds, wound care, etc). 7. Arrange for needed discharge transportation as appropriate Outcome: Progressing Note: Evaluation of progress towards goal: Patient verbalizes understanding of meds and plan of care Problem: Moderate - High Risk Fall Score Description: Torres Fall Score of =/> 25 or indicated by [facility] Assessment Goal: Patient should be free from fall Description: Interventions: 1. [place] to environment 2. Hourly rounds addressing the 4 P's (Pain, Positioning, Possessions, Potty) 3. Clear area of hazards (spills, clutter, electrical cords, unnecessary equipment) 4. Place equipment (bed & TV controls, call light, phone, urinal) within reach 5. Encourage patient to wear glasses and hearing aides as appropriate 6. Maintain bed in lowest position 7. Lock wheels on bed/wheelchair 8. Provide adequate lighting, including night light 9. Assess need for additional bedding, food/fluids, pain med's prior to sleep/routinely 10. Provide gripper slippers or personal non-skid footwear 11. Teach patient and patient sales representative [employer] to maintain environment for safety and engage in all aspects of fall prevention program 12. Remind patient to call for help before getting out of bed 13. Initiate bed/chair/exit alarms supportive devices as appropriate, (chair wedge, no-skid floor mat, raised edge mattress, hip protectors) 14. Locate patient bed assignment for optimal visualization 15. Evaluate and identify Safe Patient Handling Equipment needs 16. Provide supervision when out of bed or chair 17. Utilize gait belt as needed to assist with ambulation 18. Place adaptive equipment (cane, walker) within reach 19. Request patient sales representative rural [employer] bring adaptive equipment/mobility aids from home or obtain and provide as needed 20. Consult pharmacy regarding effects of med's affecting mobility, cognition, and alternatives 21. Obtain physician order for PT if risk factors associated with mobility are present 22. Obtain physician order for OT as appropriate 23. Utilize diversional activities 24. Educate patient and patient sales representative [employer] how to maintain a safe environment during visitationtimes (notify nurse prior to leaving bedside) 25. Consider appropriateness of medical or non-medical library assistant 26. Set up voiding schedule as appropriate (every 2 hours) Outcome: Progressing Note: Evaluation of progress towards goal: No falls or injury this shift Problem: Potential for Compromised Skin Integrity Goal: Skin integrity is maintained or improved Description: Patient's goal is: INTERVENTIONS 1. Perform initial skin assessment on admission and as needed 2. Turn patient every 2 hours and PRN 3. Relieve pressure to bony prominences 4. Avoid shearing 5. Keep skin clean and dry 6. Alternate a full bath with partial baths for elderly 7. Apply lotion/moisturizer on skin 8. Monitor patient's hygiene practices 9. Float heels 10. Collaborate with interdisciplinary team and initiate plans and interventions as needed Outcome: Progressing Note: Evaluation of progress towards goal: No new skin breakdown noted Goal: Patient's nutritional intake is adequate Description: Patient's goal is: INTERVENTIONS 1. Assess and monitor food intake and supplements, patient food preferences, nausea, vomiting, labs, oral cavity (gums, teeth, tongue, mucosa), proper denture fit, and cultural beliefs 2. Monitor for signs of hypoglycemia and hyperglycemia 3. Collaborate with interdisciplinary team and initiate plan and interventions as ordered 4. Monitor patient's weight 5. Assist patient with meals/food selection 6. Assist patient with eating 7. Allow adequate time for meals 8. Provide pleasant environment during mealtime 9. Increase social contact during mealtimes 10. Plan activities to conserve energy 11. Encourage/perform oral hygiene as appropriate 12. Encourage patient to take dietary supplement as ordered 13. Collaborate with clinical program developer 14. Include patient/ patient's sales representative [employer] in decisions related to nutrition Outcome: Progressing Note: Evaluation of progress towards goal: Patient tolerating diet Problem: Urinary Incontinence Goal: Perineal skin integrity is maintained or improved Description: INTERVENTIONS 1. Assess genitourinary system, perineal skin, labs (urinalysis), and history of incontinence to include past management, aggravating, and alleviating factors 2. Keep skin clean and dry 3. Apply skin protectant 4. Develop skin care regimen 5. Provide privacy when changing patients incontinence device to maintain their dignity 6. Consider placing an indwelling catheter 7. Collaborate with interdisciplinary team and initiate plans and interventions as needed Outcome: Progressing Note: Evaluation of progress towards goal: No new skin breakdown noted Additional Comments: * Discharge Planning Note - Yesenia Shaikh RN - 08/08/2025 10:06 AM EST Ongoing Assessment for Discharge Needs Reviewed discharge milestones and patient needs related to discharge plan. Current estimated discharge date of Aug 09, 2025 has been reviewed by treatment team. Per RN during discharge rounds, barriers to discharge: monitor urine output Ongoing Assessment for Discharge Needs Flowsheet Row Most Recent Value Referral To Community Referrals / Resources Provided Denies needs Services Requested Patient expects to be discharged to: Home Discharge Disposition Home with self care Does the patient need discharge transportation arranged? No - YESENIA SHAIKH RN 08/08/25 10:07 AM * PT/OT/VOICE ENGINEER - Toya Ortiz OT/L - 08/08/2025 9:33 AM EST Occupational Therapy Evaluation Discharge Recommendations for Safe Patient Transition OT Discharge Disposition Recommendation: Home OT Home Recommendations: Intermittent caregiver support for: (for ADL and home tasks as needed) Therapy Plan Need for skilled Occupational Therapy to address deficits in ADL independence and functional mobility due to a status decline resulting from admission on 08/04/25, pt presented with postmenopausal bleeding and was found to have grade 2 endometrial adenocarcinoma. POD #1 from robotic assisted lap hysterectomy w/ b/l salphino-oophorectomy, left ureterolysis, radical tumor debulking w/ peritoneal stripping, and flexible sigmoidoscopy Diagnosed with pelvic mass Pt lives at home with spouse. 6 Clicks: Daily Activity Putting on and taking off regular lower body clothing?: A little Bathing (including washing, rinsing, drying)?: A little Toileting, which includes using toilet, bedpan or urinal?: A little Putting on and taking off regular upper body clothing?: A little Taking care of personal grooming such as brushing teeth?: None Eating meals?: None Scoring Daily Activity Raw Score: 20 CMS G Code Modifier: CJ Past Medical History: Diagnosis Date Anemia Glaucoma Rash Visual impairment Past Surgical History: Procedure Laterality Date DAVINCI HYSTERECTOMY SALPINGO OOPHORECTOMY/RADICAL INTRAPERITONEAL TUMOR DEBULKING Bilateral 08/07/2025 Performed by Dennis Monson MD at [facility] DILATION CURETTAGE N/A 08/04/2025 Performed by Rocio Santiago MD at [facility] FLEXIBLE SIGMOIDOSCOPY N/A 08/07/2025 Performed by Manuel Busby MD at [facility] No chief complaint on file. OT Treatment/Interventions: ADL retraining, Functional transfer training, UE strengthening/ROM, Endurance training, Patient/family training, Balance, Bed mobility, Compensatory technique education, Functional activities OT Frequency: 3-4days/week OT Duration: LOS Assessment Patient Assessment Therapy Problem List: Decreased ADL status, Decreased balance, Decreased endurance, Decreased high-level ADLs, Decreased mobility, Decreased safe judgement during ADL, Decreased self-care trans, Decreased UE strength Patient Response to Treatment: Tolerated evaluation without adverse reaction Mood/Affect: Appropriate for circumstances Rehab Prognosis: Good Visit RN Communication: Yes Medical Record Reviewed: Yes OT Type of Visit: Evaluation Precautions Activity: early mobility pass Equipment: gait belt, RW Telemetry/Modular Home Crew Member: No Oxygen Used: room air Other: fall risk, abd surgery with binder in place Pain Assessment Pain Assessment: 0-10 Pain Score: 5 Observed Behavior: Calm Pain Location: Abdomen Pain Intervention(s): Repositioned, Ambulation/increased activity Pain 2 Observed Behavior: Calm Home Living Type of Home: House Home Layout: Two level, Laundry in basement, Able to live on main level with bedroom/bathroom Stairs to Enter: 2 Hand Rails: None Stairs in Home: FF to basement Hand Rails in Home: None Bathroom Shower/Tub: Walk-in shower Bathroom Toilet: Standard Home Equipment: Cane Other : pt reports one recent fall at home Prior Function Lives With: Spouse Receives Help From: Family Level of Mobility: Independent with ADLs and functional transfers or gait Homemaking Assistance: Independent 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 Hand Dominance: Right Eating Assistance: Independent Grooming Assistance: Supervision Bathing/Showering Assistance: Min assist Toilet/Commode Assistance: Contact guard assist UE Dressing Assistance: Contact guard assist LE Dressing Assistance: Min assist Other: assist to reach to foot level due to pain in abdomen, use of RW for support with mobility Home Management - IADL Other: assist to reach to foot level due to pain in abdomen, use of RW for support with mobility Hearing / Speech / Vision Hearing: Within Functional Limits Speech: Within Functional Limits Current Vision: Wears glasses all the time Cognition Overall Cognitive Status: Within Functional Limits Sensation Overall Sensation Status: Within Functional Limits Bed Mobility Supine to Sit: Contact guard assist (HOB elevated and use of rail, education to log roll) Sit to Supine: (up to recliner at end of session with call light) Other: good sitting balance at EOB Transfers Sit to Stand: Contact guard assist Stand to Sit: Contact guard assist Toilet Transfers: Contact guard assist Other: education to hand placement and safety with RW Gait Gait Assistance: Contact guard assist Assistive Device: Rolling walker Gait Distance: 10 feet and 60 feet Balance Sitting Balance: Static: Good Sitting Balance: Dynamic: Good Standing Balance: Static: Good Standing Balance: Dynamic: Fair Other: BUE support on RW RUE Assessment: Within Functional Limits LUE Assessment: Within Functional Limits Activity Tolerance Other: tolerated activity well Plan Occupational Therapy Care Plan Occupational Therapy Care Plan (Active) Template: OT - Occupational Therapy Problem: Activity Tolerance Dates: Start: 08/08/25 Disciplines: OT Goal: No limitations to activity tolerance Dates: Start: 08/08/25 Expected End: 09/06/25 Description: Goal Description: Disciplines: OT Problem: Bed Mobility Dates: Start: 08/08/25 Disciplines: OT Goal: Patient will perform bed mobility with Modified [place] Dates: Start: 08/08/25 Expected End: 09/06/25 Description: Goal Description: Disciplines: OT Problem: Functional Mobility Dates: Start: 08/08/25 Disciplines: OT Goal: Patient will perform functional mobility with Modified [place] Dates: Start: 08/08/25 Expected End: 09/06/25 Description: Goal Description: Disciplines: OT Problem: Other (Customize) Dates: Start: 08/08/25 Disciplines: OT Goal: Improve Dates: Start: 08/08/25 Expected End: 09/06/25 Description: Pt will complete all areas of ADL Tasks at Mod I with use of DME as needed and good safety awareness Disciplines: OT Problem: Sitting Balance Dates: Start: 08/08/25 Disciplines: OT Goal: Improve balance to good Dates: Start: 08/08/25 Expected End: 09/06/25 Description: Static Dynamic Disciplines: OT Problem: Standing Balance Dates: Start: 08/08/25 Disciplines: OT Goal: Improve balance to good Dates: Start: 08/08/25 Expected End: 09/06/25 Description: Static Dynamic Disciplines: OT Problem: Strength Dates: Start: 08/08/25 Disciplines: OT Goal: Improve strength Dates: Start: 08/08/25 Expected End: 09/06/25 Description: Pt will tolerate BUE HEP to progress stamina to care for self Disciplines: OT Problem: Transfers Dates: Start: 08/08/25 Disciplines: OT Goal: Patient will perform transfers with Modified [place] Dates: Start: 08/08/25 Expected End: 09/06/25 Description: Goal Description: Disciplines: OT Occupational Therapy Care Plan (Resolved) There are no resolved problems. Principal Problem: Pelvic mass Active Problems: Vagina bleeding Vaginal bleeding * PT/OT/VOICE ENGINEER - Ginny Mcghee, PT - 08/08/2025 9:31 AM EST Physical Therapy Evaluation Discharge Recommendations for Safe Patient Transition PT Discharge Disposition Recommendation: Home PT Home Recommendations: Intermittent caregiver support for: (as needed for home tasks and self care) DME Walker Mobility Limitation That Significantly Impairs Participation In: Toileting, Feeding, Dressing, Grooming Required Rationale For Walker: Cane will not resolve. Uses walker safely to mitigate the deficiency. Wheels Added To Aid With:: ease of mobility Seat Added To Aid With:: n/a Platform Attachment To Aid With: : n/a Leg Extensions Needed (height > 6ft): (n/a) Pt admitted 08/04 with vaginal bleeding, weakness, lightheadedness and nausea. CT A&P noted uterine mass with enlarged lymph nodes. Went to OR for D&C. (+) grade 2 endometrial adenocarcinoma. Bleeding persisted despite surgery and meds. 08/07 to OR for Flex sigmoidoscopy, JUDIT/BSO, tumor debulking. 6 Clicks: Basic Mobility Turning from your back to your side while in a flat bed without using bed rails?: A little Moving from lying on your back to sitting on side of flat bed without using bed rails?: A little Moving to and from bed to a chair (including w/c)?: A little Standing up from a chair using your arms (e.g. w/c or bedside chair)?: A little To walk in hospital room?: A little Climbing 3-5 steps with a railing?: A little Scoring 6 Clicks: Basic Mobility Raw Score: 18 CMS G Code Modifier: CK Past Medical History: Diagnosis Date Anemia Glaucoma Rash Visual impairment Past Surgical History: Procedure Laterality Date DAVINCI HYSTERECTOMY SALPINGO OOPHORECTOMY/RADICAL INTRAPERITONEAL TUMOR DEBULKING Bilateral 08/07/2025 Performed by Dennis Monson MD at [facility] DILATION CURETTAGE N/A 08/04/2025 Performed by Rocio Santiago MD at [facility] FLEXIBLE SIGMOIDOSCOPY N/A 08/07/2025 Performed by Manuel Busby MD at [facility] No chief complaint on file. Therapy Plan Need for skilled Physical Therapy to address deficits in functional mobility due to a status decline resulting from pelvic mass. PT Treatment/Interventions: Functional transfer training, LE strengthening/ROM, Endurance training,Balance, Stair training, Bed mobility, Gait training, Functional activities, Neuromuscular reeducation PT Frequency: 4-5days/week PT Duration: Until goals met Assessment Patient Assessment Therapy Problem List: Decreased balance, Decreased endurance, Decreased mobility, Decreased LE strength Patient Response to Treatment: Progressing toward goals Mood/Affect: Appropriate for circumstances Rehab Prognosis: Good Visit RN Communication: Yes Medical Record Reviewed: Yes PT Type of Visit: Evaluation Precautions Activity: early mobility yes Equipment: gait belt, RW Telemetry/Modular Home Crew Member: No Oxygen Used: room air Other: fall risk; abd binder Pain Assessment Pain Assessment: 0-10 Pain Score: 5 Observed Behavior: Calm Pain Location: Abdomen Pain Intervention(s): Repositioned, Ambulation/increased activity Response to Interventions: Pain improved Pain 2 Observed Behavior: Calm Home Living Type of Home: House Home Layout: Two level, Able to live on main level with bedroom/bathroom, Laundry in basement Stairs to Enter: 2 Hand Rails: None Stairs in Home: flight to basement Hand Rails in Home: None Bathroom Shower/Tub: Walk-in shower Bathroom Toilet: Standard Bathroom Accessibility: Accessible Home Equipment: Cane Prior Function Lives With: Spouse (10 years older. 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 Bed rail used for support. Educated about pursed lip breathing withactivity. Transfers Sit to Stand: Contact guard assist Stand to Sit: Contact guard assist Toilet Transfers: Contact guard assist Other: RW used for support with cues needed for hand placement. Pt completed toileting, donning mesh underware and stood at sink x7 min for self care without LOB. C/o fatigue after Gait Base of Support: Within Functional Limits Pattern: Decreased deanna, Forward trunk Gait Assistance: Contact guard assist Assistive Device: Rolling walker Gait Distance: 10' + 70' Other: steady with RW for support. cautious stepping throughout Balance Balance Evaluation: Exceptions to Functional Limits Sitting Balance: Static: Good Sitting Balance: Dynamic: Good Standing Balance: Static: Fair Standing Balance: Dynamic: Fair Other: RW used for support RLE Assessment: (12/30) LLE Assessment: (12/30) Activity Tolerance Endurance: Tolerates <30 minutes activity WITHOUT vital sign changes Other: agreeable to activity despite fatigue. Encouraged further walks with staff Plan Physical Therapy Care Plan Physical Therapy Care Plan (Active) Template: PT - Physical Therapy Problem: Activity Tolerance Dates: Start: 08/08/25 Disciplines: PT Goal: Tolerate > 30 minutes of activity WITH rest breaks Dates: Start: 08/08/25 Expected End: 09/07/25 Disciplines: PT Problem: Bed Mobility Dates: Start: 08/08/25 Disciplines: PT Goal: Patient will perform bed mobility Independently Dates: Start: 08/08/25 Expected End: 09/07/25 Description: Supine<>sit Independent Disciplines: PT Problem: Gait Dates: Start: 08/08/25 Disciplines: PT Goal: Patient will perform gait with Modified [place] Dates: Start: 08/08/25 Expected End: 09/07/25 Description: Pt to amb 150' with RW and KS Disciplines: PT Problem: Stairs/Curb Dates: Start: 08/08/25 Disciplines: PT Goal: Patient will perform stairs/curb with Modified [place] Dates: Start: 08/08/25 Expected End: 09/07/25 Description: Pt to negotiate 2 steps for safe entry into home Disciplines: PT Problem: Standing Balance Dates: Start: 08/08/25 Disciplines: PT Goal: Improve balance to good Dates: Start: 08/08/25 Expected End: 09/07/25 Description: Pt will demonstrate good balance during amb with use of RW for support Disciplines: PT Problem: Transfers Dates: Start: 08/08/25 Disciplines: PT Goal: Patient will perform transfers with Modified [place] Dates: Start: 08/08/25 Expected End: 09/07/25 Description: Sit<>stand with KS and use of RW for support Disciplines: PT Physical Therapy Care Plan (Resolved) There are no resolved problems. Principal Problem: Pelvic mass Active Problems: Vagina bleeding Vaginal bleeding * Plan of Care - Amber Parker RN - 08/08/2025 7:18 AM EST Problem: Pain Goal: Patient goal is pain score less than 4, able to rest, and participant in treatment plan as appropriate Description: INTERVENTIONS: 1. Encourage patient or legal sales representative [employer] to report early pain and ask for pain medicine when needed 2. Assess pain using appropriate pain scale and include the scale used when documenting 3. Administer analgesics based on type and severity of pain and evaluate response within appropriate time frame 4. Implement non-pharmacological measures as appropriate and evaluate response 5. Consider cultural and social influences on pain and pain management 6. Notify LIP if interventions ineffective or patient reports new pain 7. Monitor vital signs including pulse ox, end-tidal CO2 based on pain intervention 8. Reassess pain per policy 9. Teach patient or legal sales representative [employer] interventions for comforting Outcome: Progressing Note: Evaluation of progress towards goal: Pt able to verbalize pain on numeric scale, pt reports moderate pain levels, prn and scheduled pain meds ordered. Problem: Safety Goal: Patient will be injury free during hospitalization Description: INTERVENTIONS: 1. Assess patient's risk for falls and implement fall prevention plan of care per policy 2. Provide and maintain a safe environment 3. Proper use of double Identifiers 4. Medication administration using the 5 rights 5. Hand hygiene 6. Specimens are labeled at the bedside 7. Instruct patient/ patient sales representative [employer] about use of safety devices 8. Include patient/ patient sales representative [employer] in decisions related to safety Outcome: Progressing Note: Evaluation of progress towards goal: Pt identification bands on, double identification used to identify pt, environment clear of hazards. Problem: Infection Goal: Absence of infection during hospitalization Description: INTERVENTIONS 1. Assess and monitor for signs and symptoms of infection. 2. Monitor lab/diagnostic results. 3. Monitor all insertion sites i.e., indwelling lines, tubes and drains. 4. Monitor endotracheal (as able) and nasal secretions for changes in amount and color. 5. Administer medications as ordered. 6. Instruct and encourage patient and family to use good hand hygiene technique. 7. Identify and instruct patient/patient sales representative [employer] in use of appropriate isolation precautionsfor identified infection/symptoms. 8. Provide and discuss with patient/patient sales representative [employer] on educational MDRO sheet. 9. Encourage and monitor nutritional status daily and consult program developer if indicated. 10. Implement neutropenic guidelines as needed. Outcome: Progressing Note: Evaluation of progress towards goal: Pts VSS and labs WNL, no S/S of infection, all insertionsites clean dry and intact, pt and staff utilize proper handwashing technique. Problem: Knowledge Deficit Goal: Patient/patient sales representative [employer] demonstrates understanding of disease process, treatment plan,medications, and discharge instructions Description: INTERVENTIONS 1. Complete learning assessment and assess knowledge base 2. Provide teaching at level of understanding 3. Provide teaching via preferred learning method(s) Outcome: Progressing Note: Evaluation of progress towards goal: Pt educated on daily plan of care, medications, and safety. Problem: Discharge Planning Goal: Discharge to post-acute care, other facility, or home with appropriate resources Description: Patient's goal is: INTERVENTIONS 1. Conduct assessment to determine patient/family and health care team treatment goals, and need for post-acute services based on payer coverage, community resources, and patient preferences, and barriers to discharge 2. Coordinate with Social work, Care Navigation, and Utilization Review to arrange appropriate level of services according to patient's needs based on patient preference and payer coverage in collaboration with the physician and health care team 3. Address psychosocial, clinical, and financial barriers to discharge as identified in assessment in conjunction with the patient/family and health care team 4. Consult appropriate ancillary services (i.e.. PT/OT/ST, etc) as needed 5. Communicate with and update the patient/family, physician, and health care team regarding progress on the discharge plan 6. Identify discharge learning needs (meds, wound care, etc). 7. Arrange for needed discharge transportation as appropriate Outcome: Progressing Note: Evaluation of progress towards goal: Pt discharge plan started on admission, infant childcare provider involved, discharges needs assessed. Problem: Moderate - High Risk Fall Score Description: Torres Fall Score of =/> 25 or indicated by [facility] Assessment Goal: Patient should be free from fall Description: Interventions: 1. [place] to environment 2. Hourly rounds addressing the 4 P's (Pain, Positioning, Possessions, Potty) 3. Clear area of hazards (spills, clutter, electrical cords, unnecessary equipment) 4. Place equipment (bed & TV controls, call light, phone, urinal) within reach 5. Encourage patient to wear glasses and hearing aides as appropriate 6. Maintain bed in lowest position 7. Lock wheels on bed/wheelchair 8. Provide adequate lighting, including night light 9. Assess need for additional bedding, food/fluids, pain med's prior to sleep/routinely 10. Provide gripper slippers or personal non-skid footwear 11. Teach patient and patient sales representative [employer] to maintain environment for safety and engage in all aspects of fall prevention program 12. Remind patient to call for help before getting out of bed 13. Initiate bed/chair/exit alarms supportive devices as appropriate, (chair wedge, no-skid floor mat, raised edge mattress, hip protectors) 14. Locate patient bed assignment for optimal visualization 15. Evaluate and identify Safe Patient Handling Equipment needs 16. Provide supervision when out of bed or chair 17. Utilize gait belt as needed to assist with ambulation 18. Place adaptive equipment (cane, walker) within reach 19. Request patient sales representative [employer] bring adaptive equipment/mobility aids from home or obtain and provide as needed 20. Consult pharmacy regarding effects of med's affecting mobility, cognition, and alternatives 21. Obtain physician order for PT if risk factors associated with mobility are present 22. Obtain physician order for OT as appropriate 23. Utilize diversional activities 24. Educate patient and patient sales representative [employer] how to maintain a safe environment during visitationtimes (notify nurse prior to leaving bedside) 25. Consider appropriateness of medical or non-medical library assistant 26. Set up voiding schedule as appropriate (every 2 hours) Outcome: Progressing Note: Evaluation of progress towards goal: Pt educated on fall risk, fall precaution signs and wristband in place, nonslip socks on, environment clear of hazards, room well lit, bed locked in lowest position, siderails up x2, items and call light within reach. Problem: Potential for Compromised Skin Integrity Goal: Skin integrity is maintained or improved Description: Patient's goal is: INTERVENTIONS 1. Perform initial skin assessment on admission and as needed 2. Turn patient every 2 hours and PRN 3. Relieve pressure to bony prominences 4. Avoid shearing 5. Keep skin clean and dry 6. Alternate a full bath with partial baths for elderly 7. Apply lotion/moisturizer on skin 8. Monitor patient's hygiene practices 9. Float heels 10. Collaborate with interdisciplinary team and initiate plans and interventions as needed Outcome: Progressing Note: Evaluation of progress towards goal: Pt skin assessed and irma scale scored, appropriate prophylactic skin barriers applied, pt turned appropriately, no signs of skin breakdown. Goal: Patient's nutritional intake is adequate Description: Patient's goal is: INTERVENTIONS 1. Assess and monitor food intake and supplements, patient food preferences, nausea, vomiting, labs, oral cavity (gums, teeth, tongue, mucosa), proper denture fit, and cultural beliefs 2. Monitor for signs of hypoglycemia and hyperglycemia 3. Collaborate with interdisciplinary team and initiate plan and interventions as ordered 4. Monitor patient's weight 5. Assist patient with meals/food selection 6. Assist patient with eating 7. Allow adequate time for meals 8. Provide pleasant environment during mealtime 9. Increase social contact during mealtimes 10. Plan activities to conserve energy 11. Encourage/perform oral hygiene as appropriate 12. Encourage patient to take dietary supplement as ordered 13. Collaborate with clinical program developer 14. Include patient/ patient's sales representative [employer] in decisions related to nutrition Outcome: Progressing Note: Evaluation of progress towards goal: Pt has good appetite, daily weights done, labs drawn daily. Problem: Urinary Incontinence Goal: Perineal skin integrity is maintained or improved Description: INTERVENTIONS 1. Assess genitourinary system, perineal skin, labs (urinalysis), and history of incontinence to include past management, aggravating, and alleviating factors 2. Keep skin clean and dry 3. Apply skin protectant 4. Develop skin care regimen 5. Provide privacy when changing patients incontinence device to maintain their dignity 6. Consider placing an indwelling catheter 7. Collaborate with interdisciplinary team and initiate plans and interventions as needed Outcome: Progressing Note: Evaluation of progress towards goal: Pt up to bathroom with assistance, perineal skin kept clean, dry, and intact. * Plan of Care - Joana Ibarra RN - 08/07/2025 8:37 PM EST Problem: Pain Goal: Patient goal is pain score less than 4, able to rest, and participant in treatment plan as appropriate Description: INTERVENTIONS: 1. Encourage patient or legal sales representative [employer] to report early pain and ask for pain medicine when needed 2. Assess pain using appropriate pain scale and include the scale used when documenting 3. Administer analgesics based on type and severity of pain and evaluate response within appropriate time frame 4. Implement non-pharmacological measures as appropriate and evaluate response 5. Consider cultural and social influences on pain and pain management 6. Notify LIP if interventions ineffective or patient reports new pain 7. Monitor vital signs including pulse ox, end-tidal CO2 based on pain intervention 8. Reassess pain per policy 9. Teach patient or legal sales representative [employer] interventions for comforting Outcome: Progressing Note: Evaluation of progress towards goal: Prn pain meds effective Problem: Safety Goal: Patient will be injury free during hospitalization Description: INTERVENTIONS: 1. Assess patient's risk for falls and implement fall prevention plan of care per policy 2. Provide and maintain a safe environment 3. Proper use of double Identifiers 4. Medication administration using the 5 rights 5. Hand hygiene 6. Specimens are labeled at the bedside 7. Instruct patient/ patient sales representative [employer] about use of safety devices 8. Include patient/ patient sales representative [employer] in decisions related to safety Outcome: Progressing Note: Evaluation of progress towards goal: No falls or injury this shift Problem: Infection Goal: Absence of infection during hospitalization Description: INTERVENTIONS 1. Assess and monitor for signs and symptoms of infection. 2. Monitor lab/diagnostic results. 3. Monitor all insertion sites i.e., indwelling lines, tubes and drains. 4. Monitor endotracheal (as able) and nasal secretions for changes in amount and color. 5. Administer medications as ordered. 6. Instruct and encourage patient and family to use good hand hygiene technique. 7. Identify and instruct patient/patient sales representative [employer] in use of appropriate isolation precautionsfor identified infection/symptoms. 8. Provide and discuss with patient/patient sales representative [employer] on educational MDRO sheet. 9. Encourage and monitor nutritional status daily and consult program developer if indicated. 10. Implement neutropenic guidelines as needed. Outcome: Progressing Note: Evaluation of progress towards goal: No signs or symptoms of infection Problem: Knowledge Deficit Goal: Patient/patient sales representative [employer] demonstrates understanding of disease process, treatment plan,medications, and discharge instructions Description: INTERVENTIONS 1. Complete learning assessment and assess knowledge base 2. Provide teaching at level of understanding 3. Provide teaching via preferred learning method(s) Outcome: Progressing Note: Evaluation of progress towards goal: Patient verbalizes understanding of meds and plan of care Problem: Discharge Planning Goal: Discharge to post-acute care, other facility, or home with appropriate resources Description: Patient's goal is: INTERVENTIONS 1. Conduct assessment to determine patient/family and health care team treatment goals, and need for post-acute services based on payer coverage, community resources, and patient preferences, and barriers to discharge 2. Coordinate with Social work, Care Navigation, and Utilization Review to arrange appropriate level of services according to patient's needs based on patient preference and payer coverage in collaboration with the physician and health care team 3. Address psychosocial, clinical, and financial barriers to discharge as identified in assessment in conjunction with the patient/family and health care team 4. Consult appropriate ancillary services (i.e.. PT/OT/ST, etc) as needed 5. Communicate with and update the patient/family, physician, and health care team regarding progress on the discharge plan 6. Identify discharge learning needs (meds, wound care, etc). 7. Arrange for needed discharge transportation as appropriate Outcome: Progressing Note: Evaluation of progress towards goal: Plans to go home at discharge Problem: Moderate - High Risk Fall Score Description: Torres Fall Score of =/> 25 or indicated by [facility] Assessment Goal: Patient should be free from fall Description: Interventions: 1. [place] to environment 2. Hourly rounds addressing the 4 P's (Pain, Positioning, Possessions, Potty) 3. Clear area of hazards (spills, clutter, electrical cords, unnecessary equipment) 4. Place equipment (bed & TV controls, call light, phone, urinal) within reach 5. Encourage patient to wear glasses and hearing aides as appropriate 6. Maintain bed in lowest position 7. Lock wheels on bed/wheelchair 8. Provide adequate lighting, including night light 9. Assess need for additional bedding, food/fluids, pain med's prior to sleep/routinely 10. Provide gripper slippers or personal non-skid footwear 11. Teach patient and patient sales representative [employer] to maintain environment for safety and engage in all aspects of fall prevention program 12. Remind patient to call for help before getting out of bed 13. Initiate bed/chair/exit alarms supportive devices as appropriate, (chair wedge, no-skid floor mat, raised edge mattress, hip protectors) 14. Locate patient bed assignment for optimal visualization 15. Evaluate and identify Safe Patient Handling Equipment needs 16. Provide supervision when out of bed or chair 17. Utilize gait belt as needed to assist with ambulation 18. Place adaptive equipment (cane, walker) within reach 19. Request patient sales representative [employer] bring adaptive equipment/mobility aids from home or obtain and provide as needed 20. Consult pharmacy regarding effects of med's affecting mobility, cognition, and alternatives 21. Obtain physician order for PT if risk factors associated with mobility are present 22. Obtain physician order for OT as appropriate 23. Utilize diversional activities 24. Educate patient and patient sales representative [employer] how to maintain a safe environment during visitationtimes (notify nurse prior to leaving bedside) 25. Consider appropriateness of medical or non-medical library assistant 26. Set up voiding schedule as appropriate (every 2 hours) Outcome: Progressing Note: Evaluation of progress towards goal: No falls or injury this shift Problem: Potential for Compromised Skin Integrity Goal: Skin integrity is maintained or improved Description: Patient's goal is: INTERVENTIONS 1. Perform initial skin assessment on admission and as needed 2. Turn patient every 2 hours and PRN 3. Relieve pressure to bony prominences 4. Avoid shearing 5. Keep skin clean and dry 6. Alternate a full bath with partial baths for elderly 7. Apply lotion/moisturizer on skin 8. Monitor patient's hygiene practices 9. Float heels 10. Collaborate with interdisciplinary team and initiate plans and interventions as needed Outcome: Progressing Note: Evaluation of progress towards goal: No new skin breakdown noted Goal: Patient's nutritional intake is adequate Description: Patient's goal is: INTERVENTIONS 1. Assess and monitor food intake and supplements, patient food preferences, nausea, vomiting, labs, oral cavity (gums, teeth, tongue, mucosa), proper denture fit, and cultural beliefs 2. Monitor for signs of hypoglycemia and hyperglycemia 3. Collaborate with interdisciplinary team and initiate plan and interventions as ordered 4. Monitor patient's weight 5. Assist patient with meals/food selection 6. Assist patient with eating 7. Allow adequate time for meals 8. Provide pleasant environment during mealtime 9. Increase social contact during mealtimes 10. Plan activities to conserve energy 11. Encourage/perform oral hygiene as appropriate 12. Encourage patient to take dietary supplement as ordered 13. Collaborate with clinical program developer 14. Include patient/ patient's sales representative [employer] in decisions related to nutrition Outcome: Progressing Note: Evaluation of progress towards goal: Patient tolerating diet Problem: Urinary Incontinence Goal: Perineal skin integrity is maintained or improved Description: INTERVENTIONS 1. Assess genitourinary system, perineal skin, labs (urinalysis), and history of incontinence to include past management, aggravating, and alleviating factors 2. Keep skin clean and dry 3. Apply skin protectant 4. Develop skin care regimen 5. Provide privacy when changing patients incontinence device to maintain their dignity 6. Consider placing an indwelling catheter 7. Collaborate with interdisciplinary team and initiate plans and interventions as needed Outcome: Progressing Note: Evaluation of progress towards goal: No new skin breakdown noted Additional Comments: * Op Note - Manuel Busby MD - 08/07/2025 1:30 PM EST Date of Operation: 08/07/25 Surgeon: Dr. Manuel Busby Preoperative diagnosis: Cervical cancer Enlarged colon Postoperative diagnosis: Significant stool no obstruction no invasion Previous Colonoscopy: unknown Procedure: 1. Flexible sigmoidoscopy Findings: Patient had lots of liquid stool. You could pass the area of the tumor burden. There was some extrinsic compression maybe 10%. Specimens/Drains/Implants: none EBL: minimal Intraoperative procedure: Eunice Anderson was already under anesthesia. A digital rectal examination was performed with plenty of lubrication. The endoscope was then inserted into the anus, through the rectum, sigmoid colon..It was difficult to appreciate small polyps or tumors because of how much liquid stool was. But I was able to retroflex. There was no tumor involvement in the lower rectum. And I was able to get pastthe area where the cancer was internally. This concluded the procedure. Eunice Anderson handled the procedure very well. Recommendations: Bowel regimen. * Op Note - Dennis Monson MD - 08/07/2025 1:30 PM EST Preop diagnosis: Endometrial cancer Postop diagnosis: Same Procedure performed: Robotically assisted laparoscopic hysterectomy, bilateral salpingo-oophorectomy, left ureterolysis, radical intraperitoneal tumor debulking with peritoneal stripping in the pelvis, flexible sigmoidoscopy Surgeon: Kehinde Monson Microbiological Lab Technician: [id number] present for all portions of the case Estimated blood loss: 100 mL Urine output: 800 mL Intravenous fluids: 1.4 L crystalloid, 750 mL albumin, 1 unit packed red blood cells Anesthesia: General Complications: None noted Indications: This is a 70-year-old who was transferred from an outside hospital with heavy vaginal bleeding, a hysteroscopy D&C was performed a couple of days ago which revealed a grade 2 endometrial adenocarcinoma, she had persistent and heavy bleeding that was not amenable to medications, sheis counseled on the above procedure to stop her bleeding and consent was signed. Procedure: Patient was taken the operating room which anesthesia was found be adequate the patient was prepped and draped in the normal sterile fashion dorsal lithotomy position with IV fluids running. Surgical time-out was performed using 2 patient identifiers all parties present room, SCDs were on and functioning, 2 g of Ancef were given intravenously. A sterile Thakkar catheter was placed and a s tandard size VCare was secured to the uterine cervix. A Veress needle was inserted after the surgeon changed gloves and . The camera trocar was introduced and no evidence of injuries were noted, there was significant findings of 50 cc of dark cloudy fluid present, this was aspirated and sent for cytology, there were tumor deposits noted throughout the posterior aspect of the uterus, left pelvic sidewall and bilateral ovaries and fallopian tubes. Two robot trocars were placed in left lateral position, 2 in the right lateral position the patient was placed in steep Trendelenburg. The colon and small intestine were noted to be quite dilated and at this time General surgery was called for evalua tion there was no obvious source of the obstruction and flexible sigmoidoscopy was performed, please see General surgery's dictation for this portion of the case. The right and left pararectal spaceswere opened there was dense tumor involvement along the left and right uterus sacral ligaments extending to the anterior portion of the rectum, the tumor also extended laterally on the left deep intothe parametrium, the IP ligaments were isolated and then sealed and divided with bipolar cautery, aleft ureterolysis was performed to the level of the ureteric tunnel beneath the uterine artery, theuterine arteries were then skeletonized and sealed and divided after the bladder flap was then created anteriorly. The tumor was noted to be breaking through the posterior aspect of the cervix, loweruterine segment and left parametria, this was photographed and put in the patient's chart. The colpotomy was made using monopolar cautery on cut and the specimen was removed through the vagina including uterus, cervix, bilateral tubes and ovaries. The remaining tumor along bilateral uterosacrals could not be fully excised nor could the left parametrial involvement, this was stripped out to leave as minimal of tumor as possible however there were still significant microscopic disease and these locations. Excellent hemostasis was noted and the vaginal cuff was closed using 2 0 running V lock glen nonlocked fashion. The robot was subsequently undocked and the patient was taken out of Trendelenburg and the skin defects were closed using 4-0 Monocryl and Dermabond. Sponge, lap, needle counts correct x3 and the RF ID was correct at the end of the case. The patient was awakened from anesthesiaand taken recovery in good stable condition the family was updated postoperatively. * PT/OT/VOICE ENGINEER - Vale Bhatt OTR/L - 08/07/2025 11:46 AM EST Occupational Therapy OT Type of Visit: Medical deferral (will continue to follow) Reason For Medical Deferral: Off unit Off Unit: Surgery * PT/OT/VOICE ENGINEER - Ginny Mcghee, PT - 08/07/2025 11:42 AM EST Physical Therapy PT Type of Visit: Medical deferral Reason For Medical Deferral: Off unit Off Unit: Surgery * Discharge Planning Note - Yesenia Shaikh RN - 08/07/2025 10:39 AM EST Ongoing Assessment for Discharge Needs Reviewed discharge milestones and patient needs related to discharge plan. Current estimated discharge date of Aug 09, 2025 has been reviewed by treatment team. Per RN during discharge rounds, barriers to discharge: JUDIT/BSO at 1230 Ongoing Assessment for Discharge Needs Flowsheet Row Most Recent Value Referral To Community Referrals / Resources Provided Denies needs Services Requested Patient expects to be discharged to: Home Discharge Disposition Home with self care Does the patient need discharge transportation arranged? No - YESENIA SHAIKH RN 08/07/25 10:39 AM * Plan of Care - Amber Parker RN - 08/07/2025 9:50 AM EST Problem: Pain Goal: Patient goal is pain score less than 4, able to rest, and participant in treatment plan as appropriate Description: INTERVENTIONS: 1. Encourage patient or legal sales representative [employer] to report early pain and ask for pain medicine when needed 2. Assess pain using appropriate pain scale and include the scale used when documenting 3. Administer analgesics based on type and severity of pain and evaluate response within appropriate time frame 4. Implement non-pharmacological measures as appropriate and evaluate response 5. Consider cultural and social influences on pain and pain management 6. Notify LIP if interventions ineffective or patient reports new pain 7. Monitor vital signs including pulse ox, end-tidal CO2 based on pain intervention 8. Reassess pain per policy 9. Teach patient or legal sales representative [employer] interventions for comforting Outcome: Progressing Note: Evaluation of progress towards goal: Pt able to verbalize pain on numeric scale,pt reports moderate pain levels, prn and scheduled pain meds ordered. Problem: Safety Goal: Patient will be injury free during hospitalization Description: INTERVENTIONS: 1. Assess patient's risk for falls and implement fall prevention plan of care per policy 2. Provide and maintain a safe environment 3. Proper use of double Identifiers 4. Medication administration using the 5 rights 5. Hand hygiene 6. Specimens are labeled at the bedside 7. Instruct patient/ patient sales representative [employer] about use of safety devices 8. Include patient/ patient sales representative [employer] in decisions related to safety Outcome: Progressing Note: Evaluation of progress towards goal: Pt identification bands on, double identification used to identify pt, environment clear of hazards. Problem: Infection Goal: Absence of infection during hospitalization Description: INTERVENTIONS 1. Assess and monitor for signs and symptoms of infection. 2. Monitor lab/diagnostic results. 3. Monitor all insertion sites i.e., indwelling lines, tubes and drains. 4. Monitor endotracheal (as able) and nasal secretions for changes in amount and color. 5. Administer medications as ordered. 6. Instruct and encourage patient and family to use good hand hygiene technique. 7. Identify and instruct patient/patient sales representative [employer] in use of appropriate isolation precautionsfor identified infection/symptoms. 8. Provide and discuss with patient/patient sales representative [employer] on educational MDRO sheet. 9. Encourage and monitor nutritional status daily and consult program developer if indicated. 10. Implement neutropenic guidelines as needed. Outcome: Progressing Note: Evaluation of progress towards goal: Pts VSS and labs WNL, no S/S of infection, all insertionsites clean dry and intact, pt and staff utilize proper handwashing technique. Problem: Knowledge Deficit Goal: Patient/patient sales representative [employer] demonstrates understanding of disease process, treatment plan,medications, and discharge instructions Description: INTERVENTIONS 1. Complete learning assessment and assess knowledge base 2. Provide teaching at level of understanding 3. Provide teaching via preferred learning method(s) Outcome: Progressing Note: Evaluation of progress towards goal: Pt educated on daily plan of care, medications, and safety. Problem: Discharge Planning Goal: Discharge to post-acute care, other facility, or home with appropriate resources Description: Patient's goal is: INTERVENTIONS 1. Conduct assessment to determine patient/family and health care team treatment goals, and need for post-acute services based on payer coverage, community resources, and patient preferences, and barriers to discharge 2. Coordinate with Social work, Care Navigation, and Utilization Review to arrange appropriate level of services according to patient's needs based on patient preference and payer coverage in collaboration with the physician and health care team 3. Address psychosocial, clinical, and financial barriers to discharge as identified in assessment in conjunction with the patient/family and health care team 4. Consult appropriate ancillary services (i.e.. PT/OT/ST, etc) as needed 5. Communicate with and update the patient/family, physician, and health care team regarding progress on the discharge plan 6. Identify discharge learning needs (meds, wound care, etc). 7. Arrange for needed discharge transportation as appropriate Outcome: Progressing Note: Evaluation of progress towards goal: Pt discharge plan started on admission, infant childcare provider involved, discharges needs assessed. Problem: Moderate - High Risk Fall Score Description: Torres Fall Score of =/> 25 or indicated by [facility] Assessment Goal: Patient should be free from fall Description: Interventions: 1. [place] to environment 2. Hourly rounds addressing the 4 P's (Pain, Positioning, Possessions, Potty) 3. Clear area of hazards (spills, clutter, electrical cords, unnecessary equipment) 4. Place equipment (bed & TV controls, call light, phone, urinal) within reach 5. Encourage patient to wear glasses and hearing aides as appropriate 6. Maintain bed in lowest position 7. Lock wheels on bed/wheelchair 8. Provide adequate lighting, including night light 9. Assess need for additional bedding, food/fluids, pain med's prior to sleep/routinely 10. Provide gripper slippers or personal non-skid footwear 11. Teach patient and patient sales representative [employer] to maintain environment for safety and engage in all aspects of fall prevention program 12. Remind patient to call for help before getting out of bed 13. Initiate bed/chair/exit alarms supportive devices as appropriate, (chair wedge, no-skid floor mat, raised edge mattress, hip protectors) 14. Locate patient bed assignment for optimal visualization 15. Evaluate and identify Safe Patient Handling Equipment needs 16. Provide supervision when out of bed or chair 17. Utilize gait belt as needed to assist with ambulation 18. Place adaptive equipment (cane, walker) within reach 19. Request patient sales representative [employer] bring adaptive equipment/mobility aids from home or obtain and provide as needed 20. Consult pharmacy regarding effects of med's affecting mobility, cognition, and alternatives 21. Obtain physician order for PT if risk factors associated with mobility are present 22. Obtain physician order for OT as appropriate 23. Utilize diversional activities 24. Educate patient and patient sales representative [employer] how to maintain a safe environment during visitationtimes (notify nurse prior to leaving bedside) 25. Consider appropriateness of medical or non-medical library assistant 26. Set up voiding schedule as appropriate (every 2 hours) Outcome: Progressing Note: Evaluation of progress towards goal: Pt educated on fall risk, fall precaution signs and wristband in place, nonslip socks on, environment clear of hazards, room well lit, bed locked in lowest position, siderails up x2, items and call light within reach. Problem: Potential for Compromised Skin Integrity Goal: Skin integrity is maintained or improved Description: Patient's goal is: INTERVENTIONS 1. Perform initial skin assessment on admission and as needed 2. Turn patient every 2 hours and PRN 3. Relieve pressure to bony prominences 4. Avoid shearing 5. Keep skin clean and dry 6. Alternate a full bath with partial baths for elderly 7. Apply lotion/moisturizer on skin 8. Monitor patient's hygiene practices 9. Float heels 10. Collaborate with interdisciplinary team and initiate plans and interventions as needed Outcome: Progressing Note: Evaluation of progress towards goal: Pt skin assessed and irma scale scored, appropriate prophylactic skin barriers applied, pt turned appropriately, no signs of skin breakdown. Goal: Patient's nutritional intake is adequate Description: Patient's goal is: INTERVENTIONS 1. Assess and monitor food intake and supplements, patient food preferences, nausea, vomiting, labs, oral cavity (gums, teeth, tongue, mucosa), proper denture fit, and cultural beliefs 2. Monitor for signs of hypoglycemia and hyperglycemia 3. Collaborate with interdisciplinary team and initiate plan and interventions as ordered 4. Monitor patient's weight 5. Assist patient with meals/food selection 6. Assist patient with eating 7. Allow adequate time for meals 8. Provide pleasant environment during mealtime 9. Increase social contact during mealtimes 10. Plan activities to conserve energy 11. Encourage/perform oral hygiene as appropriate 12. Encourage patient to take dietary supplement as ordered 13. Collaborate with clinical program developer 14. Include patient/ patient's sales representative [employer] in decisions related to nutrition Outcome: Progressing Note: Evaluation of progress towards goal: Pt has poor appetite, daily weights done, labs drawn daily. Problem: Urinary Incontinence Goal: Perineal skin integrity is maintained or improved Description: INTERVENTIONS 1. Assess genitourinary system, perineal skin, labs (urinalysis), and history of incontinence to include past management, aggravating, and alleviating factors 2. Keep skin clean and dry 3. Apply skin protectant 4. Develop skin care regimen 5. Provide privacy when changing patients incontinence device to maintain their dignity 6. Consider placing an indwelling catheter 7. Collaborate with interdisciplinary team and initiate plans and interventions as needed Outcome: Progressing Note: Evaluation of progress towards goal: Pt up to bathroom with assistance, perineal skin kept clean, dry, and intact. * Plan of Care - Akiko Weller RN - 08/06/2025 8:40 PM EST Problem: Pain Goal: Patient goal is pain score less than 4, able to rest, and participant in treatment plan as appropriate Description: INTERVENTIONS: 1. Encourage patient or legal sales representative [employer] to report early pain and ask for pain medicine when needed 2. Assess pain using appropriate pain scale and include the scale used when documenting 3. Administer analgesics based on type and severity of pain and evaluate response within appropriate time frame 4. Implement non-pharmacological measures as appropriate and evaluate response 5. Consider cultural and social influences on pain and pain management 6. Notify LIP if interventions ineffective or patient reports new pain 7. Monitor vital signs including pulse ox, end-tidal CO2 based on pain intervention 8. Reassess pain per policy 9. Teach patient or legal sales representative [employer] interventions for comforting Outcome: Progressing Note: Evaluation of progress towards goal: Pt pain controlled with PRN medications, will assess pain level Q4 hrs and PRN, will continue to monitor this shift Problem: Safety Goal: Patient will be injury free during hospitalization Description: INTERVENTIONS: 1. Assess patient's risk for falls and implement fall prevention plan of care per policy 2. Provide and maintain a safe environment 3. Proper use of double Identifiers 4. Medication administration using the 5 rights 5. Hand hygiene 6. Specimens are labeled at the bedside 7. Instruct patient/ patient sales representative [employer] about use of safety devices 8. Include patient/ patient sales representative [employer] in decisions related to safety Outcome: Progressing Note: Evaluation of progress towards goal: Pt free from injury during stay, bed rails up x2, bed low and locked, non-skid footwear in place, call light within reach. Problem: Infection Goal: Absence of infection during hospitalization Description: INTERVENTIONS 1. Assess and monitor for signs and symptoms of infection. 2. Monitor lab/diagnostic results. 3. Monitor all insertion sites i.e., indwelling lines, tubes and drains. 4. Monitor endotracheal (as able) and nasal secretions for changes in amount and color. 5. Administer medications as ordered. 6. Instruct and encourage patient and family to use good hand hygiene technique. 7. Identify and instruct patient/patient sales representative [employer] in use of appropriate isolation precautionsfor identified infection/symptoms. 8. Provide and discuss with patient/patient sales representative [employer] on educational MDRO sheet. 9. Encourage and monitor nutritional status daily and consult program developer if indicated. 10. Implement neutropenic guidelines as needed. Outcome: Progressing Note: Evaluation of progress towards goal: Pt free from signs of infection at this time, will continue to monitor for signs and symptoms of infection during shift. Pt afebrile. Problem: Knowledge Deficit Goal: Patient/patient sales representative [employer] demonstrates understanding of disease process, treatment plan,medications, and discharge instructions Description: INTERVENTIONS 1. Complete learning assessment and assess knowledge base 2. Provide teaching at level of understanding 3. Provide teaching via preferred learning method(s) Outcome: Progressing Note: Evaluation of progress towards goal: Pt involved in plan of care, will continue to address any concerns that arise. Problem: Discharge Planning Goal: Discharge to post-acute care, other facility, or home with appropriate resources Description: Patient's goal is: INTERVENTIONS 1. Conduct assessment to determine patient/family and health care team treatment goals, and need for post-acute services based on payer coverage, community resources, and patient preferences, and barriers to discharge 2. Coordinate with Social work, Care Navigation, and Utilization Review to arrange appropriate level of services according to patient's needs based on patient preference and payer coverage in collaboration with the physician and health care team 3. Address psychosocial, clinical, and financial barriers to discharge as identified in assessment in conjunction with the patient/family and health care team 4. Consult appropriate ancillary services (i.e.. PT/OT/ST, etc) as needed 5. Communicate with and update the patient/family, physician, and health care team regarding progress on the discharge plan 6. Identify discharge learning needs (meds, wound care, etc). 7. Arrange for needed discharge transportation as appropriate Outcome: Progressing Note: Evaluation of progress towards goal: Ongoing, working alongside care team, and care navigation to determine any possible care needs prior to time of discharge. Problem: Moderate - High Risk Fall Score Description: Torres Fall Score of =/> 25 or indicated by [facility] Assessment Goal: Patient should be free from fall Description: Interventions: 1. [place] to environment 2. Hourly rounds addressing the 4 P's (Pain, Positioning, Possessions, Potty) 3. Clear area of hazards (spills, clutter, electrical cords, unnecessary equipment) 4. Place equipment (bed & TV controls, call light, phone, urinal) within reach 5. Encourage patient to wear glasses and hearing aides as appropriate 6. Maintain bed in lowest position 7. Lock wheels on bed/wheelchair 8. Provide adequate lighting, including night light 9. Assess need for additional bedding, food/fluids, pain med's prior to sleep/routinely 10. Provide gripper slippers or personal non-skid footwear 11. Teach patient and patient sales representative [employer] to maintain environment for safety and engage in all aspects of fall prevention program 12. Remind patient to call for help before getting out of bed 13. Initiate bed/chair/exit alarms supportive devices as appropriate, (chair wedge, no-skid floor mat, raised edge mattress, hip protectors) 14. Locate patient bed assignment for optimal visualization 15. Evaluate and identify Safe Patient Handling Equipment needs 16. Provide supervision when out of bed or chair 17. Utilize gait belt as needed to assist with ambulation 18. Place adaptive equipment (cane, walker) within reach 19. Request patient sales representative [employer] bring adaptive equipment/mobility aids from home or obtain and provide as needed 20. Consult pharmacy regarding effects of med's affecting mobility, cognition, and alternatives 21. Obtain physician order for PT if risk factors associated with mobility are present 22. Obtain physician order for OT as appropriate 23. Utilize diversional activities 24. Educate patient and patient sales representative [employer] how to maintain a safe environment during visitationtimes (notify nurse prior to leaving bedside) 25. Consider appropriateness of medical or non-medical library assistant 26. Set up voiding schedule as appropriate (every 2 hours) Outcome: Progressing Note: Evaluation of progress towards goal: ongoing Problem: Potential for Compromised Skin Integrity Goal: Skin integrity is maintained or improved Description: Patient's goal is: INTERVENTIONS 1. Perform initial skin assessment on admission and as needed 2. Turn patient every 2 hours and PRN 3. Relieve pressure to bony prominences 4. Avoid shearing 5. Keep skin clean and dry 6. Alternate a full bath with partial baths for elderly 7. Apply lotion/moisturizer on skin 8. Monitor patient's hygiene practices 9. Float heels 10. Collaborate with interdisciplinary team and initiate plans and interventions as needed Outcome: Progressing Note: Evaluation of progress towards goal: ongoing Goal: Patient's nutritional intake is adequate Description: Patient's goal is: INTERVENTIONS 1. Assess and monitor food intake and supplements, patient food preferences, nausea, vomiting, labs, oral cavity (gums, teeth, tongue, mucosa), proper denture fit, and cultural beliefs 2. Monitor for signs of hypoglycemia and hyperglycemia 3. Collaborate with interdisciplinary team and initiate plan and interventions as ordered 4. Monitor patient's weight 5. Assist patient with meals/food selection 6. Assist patient with eating 7. Allow adequate time for meals 8. Provide pleasant environment during mealtime 9. Increase social contact during mealtimes 10. Plan activities to conserve energy 11. Encourage/perform oral hygiene as appropriate 12. Encourage patient to take dietary supplement as ordered 13. Collaborate with clinical program developer 14. Include patient/ patient's sales representative [employer] in decisions related to nutrition Outcome: Progressing Note: Evaluation of progress towards goal: ongoing Problem: Urinary Incontinence Goal: Perineal skin integrity is maintained or improved Description: INTERVENTIONS 1. Assess genitourinary system, perineal skin, labs (urinalysis), and history of incontinence to include past management, aggravating, and alleviating factors 2. Keep skin clean and dry 3. Apply skin protectant 4. Develop skin care regimen 5. Provide privacy when changing patients incontinence device to maintain their dignity 6. Consider placing an indwelling catheter 7. Collaborate with interdisciplinary team and initiate plans and interventions as needed Outcome: Progressing Note: Evaluation of progress towards goal: perineal skin integrity maintained * Discharge Planning Note - Milagros Meraz RN - 08/06/2025 10:29 AM EST Ongoing Assessment for Discharge Needs Reviewed discharge milestones and patient needs related to discharge plan. Current estimated discharge date of Aug 06, 2025 has been reviewed by treatment team. Case discussed in daily transition rounds and chart reviewed by CN. Anticipated discharge today pending nausea and pain control. CN will continue to follow and is available should any further needs arise. Ongoing Assessment for Discharge Needs Flowsheet Row Most Recent Value Referral To Community Referrals / Resources Provided Denies needs Services Requested Patient expects to be discharged to: Home Discharge Disposition Home with self care Does the patient need discharge transportation arranged? No - Milagros Meraz RN 08/06/25 10:30 AM * Plan of Care - Melissa Galarza RN - 08/05/2025 11:41 PM EST Problem: Pain Goal: Patient goal is pain score less than 4, able to rest, and participant in treatment plan as appropriate Description: INTERVENTIONS: 1. Encourage patient or legal sales representative [employer] to report early pain and ask for pain medicine when needed 2. Assess pain using appropriate pain scale and include the scale used when documenting 3. Administer analgesics based on type and severity of pain and evaluate response within appropriate time frame 4. Implement non-pharmacological measures as appropriate and evaluate response 5. Consider cultural and social influences on pain and pain management 6. Notify LIP if interventions ineffective or patient reports new pain 7. Monitor vital signs including pulse ox, end-tidal CO2 based on pain intervention 8. Reassess pain per policy 9. Teach patient or legal sales representative [employer] interventions for comforting Outcome: Progressing Note: Evaluation of progress towards goal: Pain assessments per protocol, medicated as needed Problem: Safety Goal: Patient will be injury free during hospitalization Description: INTERVENTIONS: 1. Assess patient's risk for falls and implement fall prevention plan of care per policy 2. Provide and maintain a safe environment 3. Proper use of double Identifiers 4. Medication administration using the 5 rights 5. Hand hygiene 6. Specimens are labeled at the bedside 7. Instruct patient/ patient sales representative [employer] about use of safety devices 8. Include patient/ patient sales representative [employer] in decisions related to safety Outcome: Progressing Note: Evaluation of progress towards goal: Double identifiers, call light within reach, side rails up x2, bed in lowest position, appropriate hand hygiene Problem: Infection Goal: Absence of infection during hospitalization Description: INTERVENTIONS 1. Assess and monitor for signs and symptoms of infection. 2. Monitor lab/diagnostic results. 3. Monitor all insertion sites i.e., indwelling lines, tubes and drains. 4. Monitor endotracheal (as able) and nasal secretions for changes in amount and color. 5. Administer medications as ordered. 6. Instruct and encourage patient and family to use good hand hygiene technique. 7. Identify and instruct patient/patient sales representative [employer] in use of appropriate isolation precautionsfor identified infection/symptoms. 8. Provide and discuss with patient/patient sales representative [employer] on educational MDRO sheet. 9. Encourage and monitor nutritional status daily and consult program developer if indicated. 10. Implement neutropenic guidelines as needed. Outcome: Progressing Note: Evaluation of progress towards goal: Hand hygiene, monitor labs and vitals Problem: Knowledge Deficit Goal: Patient/patient sales representative [employer] demonstrates understanding of disease process, treatment plan,medications, and discharge instructions Description: INTERVENTIONS 1. Complete learning assessment and assess knowledge base 2. Provide teaching at level of understanding 3. Provide teaching via preferred learning method(s) Outcome: Progressing Note: Evaluation of progress towards goal: Patient is aware of update plan of care Problem: Discharge Planning Goal: Discharge to post-acute care, other facility, or home with appropriate resources Description: Patient's goal is: INTERVENTIONS 1. Conduct assessment to determine patient/family and health care team treatment goals, and need for post-acute services based on payer coverage, community resources, and patient preferences, and barriers to discharge 2. Coordinate with Social work, Care Navigation, and Utilization Review to arrange appropriate level of services according to patient's needs based on patient preference and payer coverage in collaboration with the physician and health care team 3. Address psychosocial, clinical, and financial barriers to discharge as identified in assessment in conjunction with the patient/family and health care team 4. Consult appropriate ancillary services (i.e.. PT/OT/ST, etc) as needed 5. Communicate with and update the patient/family, physician, and health care team regarding progress on the discharge plan 6. Identify discharge learning needs (meds, wound care, etc). 7. Arrange for needed discharge transportation as appropriate Outcome: Progressing Note: Evaluation of progress towards goal: Patient is aware of update plan of care Problem: Moderate - High Risk Fall Score Description: Torres Fall Score of =/> 25 or indicated by [facility] Assessment Goal: Patient should be free from fall Description: Interventions: 1. [place] to environment 2. Hourly rounds addressing the 4 P's (Pain, Positioning, Possessions, Potty) 3. Clear area of hazards (spills, clutter, electrical cords, unnecessary equipment) 4. Place equipment (bed & TV controls, call light, phone, urinal) within reach 5. Encourage patient to wear glasses and hearing aides as appropriate 6. Maintain bed in lowest position 7. Lock wheels on bed/wheelchair 8. Provide adequate lighting, including night light 9. Assess need for additional bedding, food/fluids, pain med's prior to sleep/routinely 10. Provide gripper slippers or personal non-skid footwear 11. Teach patient and patient sales representative [employer] to maintain environment for safety and engage in all aspects of fall prevention program 12. Remind patient to call for help before getting out of bed 13. Initiate bed/chair/exit alarms supportive devices as appropriate, (chair wedge, no-skid floor mat, raised edge mattress, hip protectors) 14. Locate patient bed assignment for optimal visualization 15. Evaluate and identify Safe Patient Handling Equipment needs 16. Provide supervision when out of bed or chair 17. Utilize gait belt as needed to assist with ambulation 18. Place adaptive equipment (cane, walker) within reach 19. Request patient sales representative [employer] bring adaptive equipment/mobility aids from home or obtain and provide as needed 20. Consult pharmacy regarding effects of med's affecting mobility, cognition, and alternatives 21. Obtain physician order for PT if risk factors associated with mobility are present 22. Obtain physician order for OT as appropriate 23. Utilize diversional activities 24. Educate patient and patient sales representative [employer] how to maintain a safe environment during visitationtimes (notify nurse prior to leaving bedside) 25. Consider appropriateness of medical or non-medical library assistant 26. Set up voiding schedule as appropriate (every 2 hours) Outcome: Progressing Note: Evaluation of progress towards goal: Call light within reach, side rails up x2, bed in lowestposition Problem: Potential for Compromised Skin Integrity Goal: Skin integrity is maintained or improved Description: Patient's goal is: INTERVENTIONS 1. Perform initial skin assessment on admission and as needed 2. Turn patient every 2 hours and PRN 3. Relieve pressure to bony prominences 4. Avoid shearing 5. Keep skin clean and dry 6. Alternate a full bath with partial baths for elderly 7. Apply lotion/moisturizer on skin 8. Monitor patient's hygiene practices 9. Float heels 10. Collaborate with interdisciplinary team and initiate plans and interventions as needed Outcome: Progressing Note: Evaluation of progress towards goal: Skin integrity remains intact at this time, will continue to monitor Goal: Patient's nutritional intake is adequate Description: Patient's goal is: INTERVENTIONS 1. Assess and monitor food intake and supplements, patient food preferences, nausea, vomiting, labs, oral cavity (gums, teeth, tongue, mucosa), proper denture fit, and cultural beliefs 2. Monitor for signs of hypoglycemia and hyperglycemia 3. Collaborate with interdisciplinary team and initiate plan and interventions as ordered 4. Monitor patient's weight 5. Assist patient with meals/food selection 6. Assist patient with eating 7. Allow adequate time for meals 8. Provide pleasant environment during mealtime 9. Increase social contact during mealtimes 10. Plan activities to conserve energy 11. Encourage/perform oral hygiene as appropriate 12. Encourage patient to take dietary supplement as ordered 13. Collaborate with clinical program developer 14. Include patient/ patient's sales representative rural [employer] in decisions related to nutrition Outcome: Progressing Note: Evaluation of progress towards goal: Nutritional intake remains adequate at this time, will continue to monitor Problem: Urinary Incontinence Goal: Perineal skin integrity is maintained or improved Description: INTERVENTIONS 1. Assess genitourinary system, perineal skin, labs (urinalysis), and history of incontinence to include past management, aggravating, and alleviating factors 2. Keep skin clean and dry 3. Apply skin protectant 4. Develop skin care regimen 5. Provide privacy when changing patients incontinence device to maintain their dignity 6. Consider placing an indwelling catheter 7. Collaborate with interdisciplinary team and initiate plans and interventions as needed Outcome: Progressing Note: Evaluation of progress towards goal: Sylvie care provided as needed * Discharge Planning Note - Milagros Meraz RN - 08/05/2025 11:55 AM EST Images from the original note were not included. Initial Assessment Initial Assessment Flowsheet Row Most Recent Value Patient Information Initial Pre-Hospitalization Assessment Completed? Completed Primary Caregiver Self Support System Family Members, Children, Spouse/Significant Other Discharge Planning Living Arrangements Spouse/significant other Assistance Needed None prior to admission Type of Residence Private residence Home Care Services No Community Agencies Currently Utilized None Community Referrals / Resources Provided Denies needs Does The Patient Have Existing Home DME? No Will the patient need DME at discharge? 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 Never True Within the past 12 months the food we bought just didn't last and we didn't have money to get more.Never True Hunger Screening Complete? Yes Pt. Eligible for Food / Voucher No If Eligible: Received Food Box Not Offered to Patient Caregiver/Family Member Caregiver/Support System Limitations Caregiver/Support Systems Limitations (Check All That Apply) No Caregiver Needed Patient/Caregiver Goals Patient/Caregiver Goals Home No Needs Home No Needs Caregiver/Family Community Provider Referral Community Provider Referral None Services Requested Patient expects to be discharged to: Home Discharge Disposition Home with self care Does the patient need discharge transportation arranged? No 3-Midnight Shoe Dresser met with patient, introduced self, and explained role. Patient educated on safe discharge plan. Pt admitted 08/04/2025 with Pelvic mass [R19.00] Vagina bleeding [N93.9] Vaginal bleeding [N93.9] per chart review. Prior to admission patient was living with spouse/significant other and self care. Medical equipment patient used prior to admission includes: None. Patient denies need for transportation/ food/ prescription medication assistance resources. Patient reports she has Medicare insurance and a copy of her card was given to registration yesterday but information is not in chart. erector operator contacted Registration again today to follow up with patient to get information. Patient reports her spouse took home her wallet so she was unable to provide cards to me. IMM given to patient for signature, copy placed in chart. PCP: ANN MARIE SIDHU MD Pharmacy: prefers [facility] PCP and pharmacy confirmed with patient. ANN MARIE SIDHU MD added to Follow Up Providers for Summary of Care communication. Current discharge plan is: Discharge home with self care when medically ready Services Requested: Services Requested Patient expects to be discharged to:: Home Discharge Disposition: Home with self care Does the patient need discharge transportation arranged?: No Goals: Goals Patient Stated return home (pt-stated) Evaluation of progress towards goal: patient plans to return home with family support Will continue to follow as plan of care develops. Please feel free to reach out for any discharge planning questions. - Milagros Meraz RN 08/05/25 11:57 AM * Plan of Care - Annita Still MD - 08/05/2025 11:13 AM EST Vaginal packing released from thakkar catheter and removed. No evidence of active bleeding. Will monitor with pad counts this afternoon and evaluate for thakkar removal and possible discharge later today. Annita Still MD Ob-Music Orchestrator Resident, PGY-2 * Op Note - Sarah Strange DO - 08/04/2025 9:37 AM EST Gynecologic Operative Note NAME: Eunice Anderson : 1955 PROCEDURE DATE: 08/04/2025 Pre-op Diagnosis: vaginal bleeding with acute blood loss anemia Post-op Diagnosis: same as above Procedure: Dilation and Curettage Surgeon: Dr. Rocio Santiago Microbiological Lab Technician: Dr Sarah Strange D.O. PGY-2 Anesthesia Type: General Complications: None Estimated Blood Loss: 200 mL IVF: 200ml UOP: 100ml Findings: atrophic vaginal canal with normal appearing cervix without lesions, 10cc blood clot at cervix, abnormal endometrial tissue evacuated with curettage Specimens: ID Type Source Tests Collected by Time A : ENDOMETRIAL CURRETTINGS Tissue Other SURGICAL PATHOLOGY Rocio Santiago MD 08/04/2025 1006 Indications for Procedure: Ms. Eunice Anderson is a 70 y.o. female with 2 days of heavy vaginal bleeding resulting in acute blood loss anemia. Patient did not tolerate endometrial biopsy, so decision was made to proceed with dilation and curettage. Patient received 1 unit PRBC in PACU and 2nd unitwas started in OR. The patient was informed of the risks and benefits of the procedure. Risks included, but were not limited to, bleeding, infection, damage to surrounding structures (vulva, vagina, or cervix), and uterine perforation. The patient expressed understanding of the risks involved, all questions were answered and the patient consented to the procedure. Condition: Stable Description of Procedure: After obtaining consent and answering any questions the patient had, she was taken to the operatingroom and placed under general anesthesia by the anesthesiologist. Time out was performed. The patient was placed in the dorsal lithotomy position and prepped and draped in the normal sterile fashion.A Nichols retractor was placed along the posterior vaginal wall and the anterior lip of the cervix wasvisualized and grasped with a single tooth tenaculum. The cervix was dilated slightly (to 4mm) using hegar dilators and the endometrial cavity was sharply curetted in all quadrants and the above findings were noted. Tissue was collected and sent to pathology. The tenaculum was removed and there was noted to be adequate hemostasis of tenaculum sites. Patient had active bleeding from the cervix. Uterine clots were expressed. Vaginal packing was placed. Thakkar catheter was then placed. Vaginal packing was tied to Thakkar catheter. Good hemostasis was noted. At this point the procedure was terminated. The Nichols retractor was removed. The patient tolerated the procedure well, and she was taken to PACU in stable condition. Sponge, lap and needle counts were correct x 2. Sarah Strange DO Evaluation Manager Resident, PGY-2 Cosigned by Rocio Santiago MD at 08/05/2025 12:29 PM EST Associated attestation - Rocio Santiago MD - 08/05/2025 12:29 PM EST Attending Attestation: I saw the patient. I participated and was physically present during the critical/carson portions of the service. I was directly involved in the management and treatment plan of the patient. I reviewed the resident's note. Additional Notes/Findings: Significant tissue in the endometrial cavity consistent with likely endometrial cancer. Will await final pathology for definitive diagnosis and treatment. Vaginal packing placed for hemostasis. LUKAS SANTIAGO MD * Perioperative Nursing Note - Quynh Puckett RN - 08/04/2025 9:36 AM EST 2nd unit of blood sent for and directed to send to OR documented in this encounter Plan of Treatment DateTypeDepartmentCare Team (Latest Contact Info)Yzdadwhfmie48/01/2025 3:30 PM ESTTelemedicine [facility], A Department of [address] [place] [address] Annita Patton, VOUCHER EXAMINER-CAMPAIGN ANALYST [address] [place] [address], [address] [place] [address] 08/30/2025 10:30 AM ESTInfusion [facility] On[facility] [address] [place] [phone] 08/31/2025 8:30 AM ESTInfusion [facility] [address] [place] [phone] 09/10/2025 1:30 PM ESTOffice Visit [facility], A Department of [address] [place] [address] Annita Patton, VOUCHER EXAMINER-CAMPAIGN ANALYST [address], [address] [place] [address] 09/25/2025 10:00 AM ESTInfusion [facility] - Medical Oncology [address] [place] [address], [place] [phone] 09/26/2025 8:00 AM ESTTelemedicine [facility], A Department of [address] [place] [address] Annita Patton, VOUCHER EXAMINER-[facility] [address], [address] [place] [address] 09/26/2025 8:30 AM ESTInfusion [facility] - Medical Oncology [address] [place] [address], [place] [phone] NameTypePriorityAssociated DiagnosesDate/TimeSurgical PathologyPathology and PsqdtcvgMehwnjc20/08/2025 10:06 AM ESTNameTypePriorityAssociated DiagnosesOrder ScheduleSurgical PathologyPathology and CytologyRoutineRelease Upon Ordering for 1 Occurrences starting 08/04/2025, 1 completeddocumented as of this encounter Goals GoalPatient Goal TypeAssociated ProblemsRecent ProgressPatient-Stated?Author return home Milagros Escobedo RN Note: Evaluation of progress towards goal: patient plans to return home with family support documented as of this encounter Procedures Procedure NamePriorityDate/TimeAssociated DiagnosisCommentsCROSSMATCH RBCRoutine 08/11/2025 12:37 AM EST CBC WITH AUTO WCJMVTDOVCEUVnrvlgt25/13/2025 5:32 AM EST COMPREHENSIVE METABOLIC WRJZUTnqvgmu18/13/2025 5:32 AM EST CBC WITH AUTO GVIJYTCDTXAFTofffwk11/12/2025 5:58 AM EST TYPE AND KFRCBNCtriaeq45/12/2025 5:57 AM EST COMPREHENSIVE METABOLIC DUTEEHmcdafw92/12/2025 5:57 AM EST SURGICAL YSFKFIRCYVbjhyaw59/11/2025 3:42 PM EST NON-GYNECOLOGIC PASYCYHNTqsorgk88/11/2025 2:44 PM EST TRANSFUSE RED BLOOD MSHOLOstdeeq23/11/2025 2:23 PM ESTFLEXIBLE SIGMOIDOSCOPY 08/07/2025 1:30 PM EST ENDOMETRIAL CANCER Case Notes [facility] 2W MOVE UP TO 1130 Special Needs MOVE UP TO 1130 DAVINCI HYSTERECTOMY SALPINGO MSTZBDKQJENW58/11/2025 1:30 PM EST ENDOMETRIAL CANCER Case Notes [facility] 2W MOVE UP TO 1130 Special Needs MOVE UP TO 1130 CBC WITH AUTO ZPSGMVTDVWEQYvwihpl60/11/2025 5:40 AM EST COMPREHENSIVE METABOLIC FPBOHXyhkpaq93/11/2025 5:40 AM EST CROSSMATCH LLRTdfytfm64/10/2025 6:37 AM ESTCBC WITH AUTO DIFFERENTIALRoutine 08/06/2025 6:23 AM EST COMPREHENSIVE METABOLIC YBHMSDvfqaps66/10/2025 6:23 AM EST COMPREHENSIVE METABOLIC NMLMGQixkdto45/09/2025 8:[address] CHEST W RFJBQxypazk06/09/2025 12:11 PM EST CBC WITH AUTO NCAAYSTAIOAOEucfyfn00/09/2025 4:02 AM EST COMPREHENSIVE METABOLIC PHGQHSbqtwgl80/09/2025 4:02 AM EST CBC WITH AUTO AYLQBSXDTEEACvfwtsm84/08/2025 12:18 PM EST TRANSFUSE RED BLOOD TZZWGSupdbcy15/08/2025 10:00 AM ESTPR HYSTEROSCOPY,W/ENDO BX 08/04/2025 9:37 AM EST vaginal bleed TRANSFUSE RED BLOOD OGSHAOnoevqs80/08/2025 8:39 AM ESTREPEATED ABORHRoutine 08/04/2025 8:27 AM ESTREPEATED KFOKOBpsidiu78/08/2025 7:41 AM EST CROSSMATCH VZNXcbbjlm23/08/2025 5:30 AM EST CBC WITH AUTO LJGERAFYFSNPZmepxxp90/08/2025 5:30 AM EST YJNFYznodiw49/08/2025 5:30 AM EST PROTIME & NIVPxlvqwl08/08/2025 5:30 AM EST GTHANFZSWBGhnnxji36/08/2025 5:30 AM EST TYPE AND VSBVWOUdedyob47/08/2025 5:30 AM EST COMPREHENSIVE METABOLIC LCKNQVxlnpvi51/08/2025 5:30 AM EST PULSE OXIMETRY, WSACWoahrmp79/08/2025 3:38 AM ESTdocumented in this encounter Results * Crossmatch RBC:Number of Units: 2 (08/11/2025 12:37 AM EST)ComponentValueRef RangeTest MethodAnalysis TimePerformed AtPathologist SignatureBlood component [id number] BANK - AsanaALUnit [id number] BANK - AsanaAL Unit ABOOBLOOD BANK - [facility]AV[place]Unit RHPOSBLOOD BANK - [facility] HAVERTOWNCrossmatch CompatibleBLOOD BANK - AsanaKYStatus of unitTRANSFUSEDBLOOD BANK - Varioptic Expiration [id number] BANK - AsanaKYBB Type Ozlaokr8439OCOGN BANK - VariopticSpecimen (Source)Anatomical Location / LateralityCollection Method / VolumeCollection TimeReceived TimeBloodVenous blood / Lvwvzui99/ 12:37 AM EST08/04/2025 5:47 AM EST Narrative Authorizing ProviderResult TypeResult StatusKassidy Cheko HERNÁNDEZBLOOD BANK PRODUCT ORDERABLESEdited Result - FinalPerforming OrganizationAddressCity/State/ZIP Code Phone Number [facility] [place] * (ABNORMAL) CBC auto differential (08/09/2025 5:32 AM EST)ComponentValueRef RangeTest MethodAnalysis TimePerformed AtPathologist KowvfhwalZOS45.1(H)4 - 11 X10^9/L110/09/2024 7:00 AM [facility] LABORATORYRBC Count2.98 (L)3.8 - 5.2 X10^12/L110/09/2024 7:00 AM [facility] Hemoglobin8.9(L)11.7 - 15.5 g/dL08/09/2025 7:00 AM [facility] UBGKOBQYAJEusjrcutpt90.3(L)35 - 47 %08/09/2025 7:00 AM [facility] WSEURNAQIPLZD7165 - 100 fL08/09/2025 7:00 AM [facility] EOSAMZUBGZCHF47.027 - 34 pg08/09/2025 7:00 AM [facility] VQFSJGZPMZVMGD88.032 - 36 g/dL08/09/2025 7:00 AM [facility] QTXAIWIXQKQJP31.7(H)11.5 - 15 %08/09/2025 7:00 AM [facility] LABORATORYPlatelet Boqgj373013 - 450 X10^9/L110/09/2024 7:00 AM [facility] LABORATORYMPV7.97 - 12 fL08/09/2025 7:00 AM [facility] LABORATORYNeutrophils %75.6%08/09/2025 7:00 AM [facility] LABORATORYComment:This is an appended report. These results have been appended to a previously preliminary verified report.Lymphocytes % 11.1%08/09/2025 7:00 AM [facility] LABORATORYComment:This is an appended report. These results have been appended to a previously preliminary verified report.Monocytes %6.4%08/09/2025 7:00 AM [facility] LABORATORYComment:This is an appended report. These results have been appended to a previously preliminary verified report.Eosinophils % 5.8%08/09/2025 7:00 AM [facility] LABORATORYComment:This is an appended report. These results have been appended to a previously preliminary verified report.Basophils %1.1%08/09/2025 7:00 AM [facility] LABORATORYComment:This is an appended report. These results have been appended to a previously preliminary verified report.Neutrophils Absolute (A)10.7(H)1.5 - 6.6 X10^9/L110/09/2024 7:00 AM [facility] LABORATORYComment:This is an appended report. These results have been appended to a previously preliminary verified report.Lymphocytes Absolute1.6 1.0 - 3.5 X10^9/L110/09/2024 7:00 AM [facility] Comment:This is an appended report. These results have been appended to a previously preliminary verified report.Monocytes Absolute0.90.0 - 0.9 X10^9/L 08/09/2025 7:00 AM [facility] LABORATORYComment:This is an appended report. These results have been appended to a previously preliminary verified report.Eosinophils Absolute0.8(H)0.0 - 0.4 X10^9/L110/09/2024 7:00 AM [facility] LABORATORYComment:This is an appended report. These results have been appended to a previously preliminary verified report. Basophils Absolute0.10.0 - 0.2 X10^9/L110/09/2024 7:00 AM [facility] LABORATORYComment:This is an appended report. These results have been appended to a previously preliminary verified report.Differential Type AUTOMATED VBYFUXDRPGZU12/13/2025 7:00 AM [facility] LABORATORYComment:This is an appended report. These results have been appended to a previously preliminary verified report.Specimen (Source)Anatomical Location / LateralityCollection Method / VolumeCollection TimeReceived Time BloodVenous blood / UnknownVenipuncture / Cjdbtyy5308/09/2025 5:32 AM EST 08/09/2025 5:54 AM EST Narrative Authorizing ProviderResult TypeResult StatusHala Magdaleno PASCUAL BLOOD ORDERABLESFinal ResultPerforming OrganizationAddressCity/State/ZIP CodePhone Number [facility] [address] [place] [address], * (ABNORMAL) Comprehensive metabolic panel (08/09/2025 5:32 AM EST)Component ValueRef RangeTest MethodAnalysis TimePerformed AtPathologist SignatureSODIUM 098919 - 146 mmol/L110/09/2024 6:26 AM [facility] POTASSIUM3.3(L)3.5 - 5.0 mmol/L110/09/2024 6:26 AM [facility] UYMXGSCXQDDSKMUSUV53147 - 109 mmol/L110/09/2024 6:26 AM [facility] LABORATORYCARBON QLVPDCV0410 - 32 mmol/L110/09/2024 6:26 AM [facility] LABORATORYANION FRT697 - 15 mmol/L110/09/2024 6:26 AM EST [facility] LABORATORYBLOOD UREA DNPZBQKI552 - 27 mg/dL08/09/2025 6:26 AM [facility] LABORATORYCREATININE0.650.40 - 1.00 mg/dL 08/09/2025 6:26 AM [facility] LABORATORYComment:METHOD TRACEABLE TO IDMS VJIXKJRRTYYAEAY9613 - 99 mg/dL08/09/2025 6:26 AM [facility] LABORATORYCALCIUM8.1(L)8.5 - 10.5 mg/dL08/09/2025 6:26 AM [facility] LABORATORYTOTAL PROTEIN5.4(L)6.0 - 8.0 g/dL 08/09/2025 6:26 AM [facility] LABORATORYALBUMIN3.0(L)3.2 - 5.3 g/dL08/09/2025 6:26 AM [facility] LABORATORYALKALINE VFJJHMUFRQB0802 - 130 U/L110/09/2024 6:26 AM [facility] NBOXDMYHVTMRY36<=41 U/L110/09/2024 6:26 AM [facility] LABORATORYALT6<=31 U/L110/09/2024 6:26 AM [facility] LABORATORYBILIRUBIN,TOTAL0.50.3 - 1.2 mg/dL08/09/2025 6:26 AM [facility] LABORATORYEGFR Non-Race Dependent>90>=60 ml/min/1.73sq.m 08/09/2025 6:26 AM [facility] LABORATORYComment: Reported eGFR is based on the CKD-EPI 2020 equation that does not use a race coefficient. Specimen (Source)Anatomical Location / LateralityCollection Method / Volume Collection TimeReceived TimeBloodVenous blood / UnknownVenipuncture / Unknown 08/09/2025 5:32 AM EST08/09/2025 5:54 AM EST Narrative Authorizing ProviderResult TypeResult StatusHala Magdaleno Sam MDLAB BLOOD ORDERABLESFinal ResultPerforming OrganizationAddressCity/State/ZIP CodePhone Number [facility] [address] [place] [address], * (ABNORMAL) CBC auto differential (08/08/2025 5:58 AM EST)ComponentValueRef RangeTest MethodAnalysis TimePerformed AtPathologist OdnvadrjmNDT61.1(H)4 - 11 X10^9/L110/08/2024 7:17 AM [facility] LABORATORYRBC Count2.95 (L)3.8 - 5.2 X10^12/L110/08/2024 7:17 AM [facility] Hemoglobin8.5(L)11.7 - 15.5 g/dL08/08/2025 7:17 AM [facility] YZPLIUZIGAIsdhcwbkkb50.1(L)35 - 47 %08/08/2025 7:17 AM [facility] UGESKVLUQYRDM6043 - 100 fL08/08/2025 7:17 AM [facility] UOGVPFYEFNCLZ48.727 - 34 pg08/08/2025 7:17 AM [facility] HXIFQBGHJEFWRC72.532 - 36 g/dL08/08/2025 7:17 AM [facility] WTBHXHRPWYAYL06.7(H)11.5 - 15 %08/08/2025 7:17 AM [facility] LABORATORYPlatelet Xwjnv791962 - 450 X10^9/L110/08/2024 7:17 AM [facility] LABORATORYMPV8.17 - 12 fL08/08/2025 7:17 AM [facility] LABORATORYNeutrophils %88.6%08/08/2025 7:17 AM [facility] LABORATORYComment:This is an appended report. These results have been appended to a previously preliminary verified report.Lymphocytes % 5.1%08/08/2025 7:17 AM [facility] LABORATORYComment:This is an appended report. These results have been appended to a previously preliminary verified report.Monocytes %5.9%08/08/2025 7:17 AM [facility] LABORATORYComment:This is an appended report. These results have been appended to a previously preliminary verified report.Eosinophils % 0.1%08/08/2025 7:17 AM [facility] LABORATORYComment:This is an appended report. These results have been appended to a previously preliminary verified report.Basophils %0.3%08/08/2025 7:17 AM [facility] LABORATORYComment:This is an appended report. These results have been appended to a previously preliminary verified report.Neutrophils Absolute (A)16.0(H)1.5 - 6.6 X10^9/L110/08/2024 7:17 AM [facility] LABORATORYComment:This is an appended report. These results have been appended to a previously preliminary verified report.Lymphocytes Absolute0.9 (L)1.0 - 3.5 X10^9/L110/08/2024 7:17 AM [facility] Comment:This is an appended report. These results have been appended to a previously preliminary verified report.Monocytes Absolute1.1(H)0.0 - 0.9 X10^9/L110/08/2024 7:17 AM [facility] LABORATORYComment:This is an appended report. These results have been appended to a previously preliminary verified report.Eosinophils Absolute0.00.0 - 0.4 X10^9/L110/08/2024 7:17 AM [facility] LABORATORYComment:This is an appended report. These results have been appended to a previously preliminary verified report.Basophils Absolute0.00.0 - 0.2 X10^9/L110/08/2024 7:17 AM [facility] LABORATORYComment:This is an appended report. These results have been appended to a previously preliminary verified report.Differential TypeAUTOMATED UJYSMZWTPNTA77/12/2025 7:17 AM [facility] LABORATORYComment:This is an appended report. These results have been appended to a previously preliminary verified report.Specimen (Source)Anatomical Location / LateralityCollection Method / VolumeCollection TimeReceived Time BloodVenous blood / UnknownVenipuncture / Asbtwbb5108/08/2025 5:58 AM EST 08/08/2025 6:30 AM EST Narrative Authorizing ProviderResult TypeResult StatusHala Magdaleno PASCUAL BLOOD ORDERABLESFinal ResultPerforming OrganizationAddressCity/State/ZIP CodePhone Number [facility] [address] [place] [address], * (ABNORMAL) Comprehensive metabolic panel (08/08/2025 5:57 AM EST)Component ValueRef RangeTest MethodAnalysis TimePerformed AtPathologist SignatureSODIUM 850268 - 146 mmol/L110/08/2024 7:06 AM [facility] POTASSIUM4.03.5 - 5.0 mmol/L110/08/2024 7:06 AM [facility] LDYIRKXMBWTYXXMOOY99295 - 109 mmol/L110/08/2024 7:06 AM [facility] LABORATORYCARBON HNIMWSF1120 - 32 mmol/L110/08/2024 7:06 AM [facility] LABORATORYANION GAP95 - 15 mmol/L110/08/2024 7:06 AM [facility] LABORATORYBLOOD UREA BRQWRGWC961 - 27 mg/dL08/08/2025 7:06 AM [facility] LABORATORYCREATININE0.610.40 - 1.00 mg/dL 08/08/2025 7:06 AM [facility] LABORATORYComment:METHOD TRACEABLE TO IDMA VHRVQJGWEEPFXYB096(H)65 - 99 mg/dL08/08/2025 7:06 AM [facility] LABORATORYCALCIUM8.58.5 - 10.5 mg/dL08/08/2025 7:06 AM [facility] LABORATORYTOTAL PROTEIN5.4(L)6.0 - 8.0 g/dL 08/08/2025 7:06 AM [facility] LABORATORYALBUMIN3.23.2 - 5.3 g/dL08/08/2025 7:06 AM [facility] LABORATORYALKALINE THNMPUWXBXR3844 - 130 U/L110/08/2024 7:06 AM [facility] TYURWSNUZLDDP54<=41 U/L110/08/2024 7:06 AM [facility] LABORATORYALT3<=31 U/L110/08/2024 7:06 AM [facility] LABORATORYBILIRUBIN,TOTAL0.80.3 - 1.2 mg/dL08/08/2025 7:06 AM [facility] LABORATORYEGFR Non-Race Dependent>90>=60 ml/min/1.73sq.m 08/08/2025 7:06 AM [facility] LABORATORYComment: Reported eGFR is based on the CKD-EPI 2020 equation that does not use a race coefficient. Specimen (Source)Anatomical Location / LateralityCollection Method / Volume Collection TimeReceived TimeBloodVenous blood / UnknownVenipuncture / Unknown 08/08/2025 5:57 AM EST08/08/2025 6:30 AM EST Narrative Authorizing ProviderResult TypeResult StatusHala Magdaleno Sam MDLAB BLOOD ORDERABLESFinal ResultPerforming OrganizationAddressCity/State/ZIP CodePhone Number [facility] [address] [place] [address], * Type and screen(includes indirect grady) (08/08/2025 5:57 AM EST)Component ValueRef RangeTest MethodAnalysis TimePerformed AtPathologist SignatureABOO 08/08/2025 7:52 AM ESTTTH BB - WOHMGFZKOUoazqwrx33/12/2025 7:52 AM ESTTTH BB - WELLSKYAntibody BlytxfQqowkocg06/12/2025 7:52 AM ESTTTH BB - WELLSKYSpecimen (Source)Anatomical Location / LateralityCollection Method / VolumeCollection TimeReceived TimeBloodVenous blood / UnknownVenipuncture / Vguxnyq0408/08/2025 5:57 AM EST08/08/2025 6:54 AM EST Narrative Authorizing ProviderResult TypeResult StatusAleia K Catherine MDBLOOD BANK TEST ORDERABLESEdited Result - FinalPerforming OrganizationAddressCity/State/ZIP Code Phone Number [facility] RAJI MALDONADO [address] [place] [address], * Surgical Pathology (08/07/2025 3:42 PM EST)ComponentValueRef RangeTest Method Analysis TimePerformed AtPathologist SignatureCase ReportSurgical Pathology Report ? Case: [id number] ? Authorizing Provider: ??Dennis Monson MD ?Collected: ? 08/07/2025 1542 ? Ordering Location: ? [facility] ??Received: ?08/07/2025 1647 ? - Surgery ? Pathologist: ? Darryl Alcantara MD ? Specimens: ?? 1) - Uterus, Fallopian Tube, Ovary, UTERUS, CERVIX, BILATERAL TUBES AND OVARIES ? 2) - Pelvis, LEFT POSTERIOR PELVIS BIOPSY ? 08/14/2025 2:47 PM [facility] LABORATORYFinal Diagnosis1. Uterus, fallopian tubes and ovaries, hysterectomy and bilateral salpingo-oophorectomy: ENDOMETRIOID ADENOCARCINOMA of endometrium, grade 2, with deep myometrial invasion. Carcinoma invades lower uterine segment stroma. Positive cervical stroma, uterine serosa (implants), bilateral mesosalpinx and left fallopian tube. Focal lymphovascular invasion. Endometriosis of right fallopian tube serosa. Negative ovaries. Negative parametrial/paracervical margins. 2. Left posterior pelvis, biopsy: Metastatic carcinoma.08/14/2025 2:47 PM [facility] at 1447 ESTGross Description1. Received in formalin labeled ANDERSON, uterus, cervix, bilateral tubes and ovaries is a 145 g uterus with detached cervix, received markedly fragmented at the inferior aspect. The specimen is resected with attached bilateral adnexa. The uterus is 4.5 cm cornu-cornu, 3.8 cm anterior-posterior and 9.8 cm fundus- ectocervical face. The serosa is purple-lambert and glistening with dense adhesions and nodularities on the posterior aspect.The inferior aspect is disrupted and ragged with no definitive anatomical clock identified at the ectocervical os. The ectocervical mucosa is pink-lambert to focally erythematous with possible mass extending to the os. Upon further opening, the entirety of the endometrial cavity is lined by a pink-lambert exophytic mass, 7.2 x 4 cm, which grossly extends into the lower uterine segment and ectocervical os. The mass is sectioned to reveal pale pink solid and friable cut surfaces, extending into the myometrium, coming to within 0.2 cm of the serosal surface (1.4 cm depth of invasion-1.6 cm full-thickness section). The left fallopian tube is partially cystic at the distal aspect. The specimen is 7.5 cm in length ranging from 0.5 cm (proximal) to 3.5 cm (distal) in diameter. The cystic aspect is sectioned to reveal a unilocular cystic structure filled with serous fluid. The inner cyst lining is lambert and glistening. The cystic wall is thickened up to 0.5 cm in thickness with possible friable tumor. The fimbriaare serially sectioned and the remainder is serially sectioned to reveal a congested lumen. Within the parametrial tissue, there is a white firm nodule, 0.7 cm in greatest dimension, adjacent to the fallopian tube. The left ovary is 1.8 x 1.2 x 0.6 cm. The cortical surface is lambert and bosselated. The specimen is sectioned to reveal uniform unremarkable cut surfaces. The right fimbriated fallopian tube segment is 4.5 x 0.6 cm. The serosa is purple-lambert henao, smooth and glistening. The fimbria are trisected and the remainder of the tubal segment is sectioned to reveal congested lumen. There is a white firm parametrial nodule, 0.9 x 0.8 x 0.7 cm. The right ovary is 1.6 x 1 x 0.6 cm. The cortical surface is yellow-lambert and bosselated. The specimen is sectioned to reveal uniform unremarkable cut surfaces. Gross photographs are taken. Cassettes A-B cervix with possible tumor C-D lower uterine segment E serosa to include adhesions/posterior nodules F-J mass, full-thickness sections with deepest invasion K Mass L fimbria of left fallopian tube M thickened cystic wall of left fallopian tube with possible mass N cross-sections of left fallopian tube and parametrial nodule O left ovary P-Q right fallopian tube fimbria, cross-sections and parametrial nodule R right ovary Fixation Time: Tissue removed from patient: 1542 Time specimen placed in formalin: 1542 Cold ischemic time: Less than 1 minute Total fixation time: 27 hours (18,ns,[id number], m8.1) 2. Received in formalin labeled ANDERSON, left posterior pelvis biopsy is pink-lambert feathery and friable soft tissue admixed with hemorrhagic material, 2.5 x 2.5 x 1.2 cm in aggregate. The specimen is submitted entirely in cassettes A- C. (3,ns,[id number], m8.1) 08/14/2025 2:47 PM [facility] LABORATORYSynoptic ChecklistENDOMETRIUM ENDOMETRIUM - All Specimens AJCC 8 - Protocol posted: 09/06/2024 SPECIMEN ?? Procedure: ?Total hysterectomy ?? Procedure: ?Bilateral salpingo-oophorectomy ?? Procedure: ?Peritoneal biopsy(ies) ?? Procedure: ?Peritoneal / pelvic washing TUMOR ?? Histologic Type: ?Endometrioid carcinoma ?? Histologic Grade: ?FIGO grade 2 ?? Myometrial Invasion: ?Present, outer half (greater than or equal to 50%) ? Percentage: ?85 % ?? Adenomyosis: ?Not identified ?? Uterine Serosal Involvement: ?Present ?? Lower Uterine Segment Involvement: ?Present, myoinvasive ?? Cervical Involvement: ?Cervical stromal invasion ? Percentage of Cervical Wall Involved: ?50 % ?? Other Tissue / Organ Involvement: ?Right fallopian tube ?? Other Tissue / Organ Involvement: ?Left fallopian tube ?? Other Tissue / Organ Involvement: ?Pelvic wall ?? Peritoneal / Pelvic Washings / Ascitic Fluid: ?Malignant cells present ?? Lymphatic and / or Vascular Invasion: ?Present ? : ?Less than or equal to 4 foci ? Number of Foci: ?1 MARGINS ?? Margin Status: ?All margins negative for carcinoma REGIONAL LYMPH NODES ?? Regional Lymph Node Status: ?Not applicable (no regional lymph nodes submitted or found) pTNM CLASSIFICATION (AJCC 8th Edition) ?? Reporting of pT, pN, and (when applicable) pM categories is based on information available to the pathologist at the time the report is issued. As per the AJCC (Chapter 1, 8th Ed.) it is the managing physician's responsibility to establish the final pathologic stage based upon all pertinent information, including but potentially not limited to this pathology report. ?? pT Category: ?pT3a ?? pN Category: ?pN not assigned (no nodes submitted or found)08/14/2025 2:47 PM [facility] LABORATORYEmbedded Vpcvie4608/14/2025 2:47 PM [facility] LABORATORYSpecimen (Source)Anatomical Location / LateralityCollection Method / VolumeCollection TimeReceived TimeTissue (Uterus, Fallopian Tube, Ovary)08/07/2025 3:42 PM EST08/07/2025 4:47 PM ESTComment:Pre-op diagnosis: ENDOMETRIAL CANCERTissue specimen (specimen)Pelvic region / Auswnec1208/07/2025 3:43 PM EST08/07/2025 4:47 PM ESTComment:Pre-op diagnosis: ENDOMETRIAL CANCER Narrative Authorizing ProviderResult TypeResult StatusClairem Raven Monson MDPATHOLOGY/CYTOLOGY ORDERABLESFinal ResultPerforming OrganizationAddressCity/State/ZIP CodePhone Number [facility] [address] [place] [address], * Transfuse RBC:1 Unit (08/07/2025 2:56 PM EST) Narrative Authorizing ProviderResult TypeResult StatusAleia Monica Santiago MDBLOOD TRANSFUSION ORDERABLESFinal Result * Transfuse RBC:1 Unit (08/07/2025 2:56 PM EST) Narrative Authorizing ProviderResult TypeResult StatusAleia Monica Santiago MDBLOOD TRANSFUSION ORDERABLESFinal Result * Cytology non-gynecologic (08/07/2025 2:44 PM EST)ComponentValueRef RangeTest MethodAnalysis TimePerformed AtPathologist SignatureCase ReportMedical Cytology Report ? Case: [id number] ? Authorizing Provider: ??Dennis Monson MD ?Collected: ? 08/07/2025 1444 ? Ordering Location: ? [facility] ??Received: ?08/07/2025 1501 ? - Surgery ? Pathologist: ? Darryl Alcantara MD ? Specimen: ?Pelvis, Pelvis fluid ? 08/14/2025 2:58 PM [facility] LABORATORYFinal DiagnosisPelvic fluid: Positive for Carcinoma, rare cells.08/14/2025 2:58 PM [facility] at 1458 ESTGross DescriptionReceived was 20ml of red fluid unfixed, labeled as Anderson, pelvis . CytoLyt added in lab. Specimen placed in formalin at 17:00 and had a total fixation time of 8 hours. 08/14/2025 2:58 PM [facility] LABORATORYEmbedded Images 08/14/2025 2:58 PM [facility] LABORATORYSpecimen (Source) Anatomical Location / LateralityCollection Method / VolumeCollection Time Received TimeFluidPelvic region / Icwffvb3808/07/2025 2:44 PM EST08/07/2025 3:01 PM ESTComment:Pre-op diagnosis: ENDOMETRIAL CANCER Narrative Authorizing ProviderResult TypeResult StatusAdam Raven Monson MDPATHOLOGY/CYTOLOGY ORDERABLESFinal ResultPerforming OrganizationAddressCity/State/ZIP CodePhone Number [facility] [address] [place] [phone], * (ABNORMAL) Comprehensive metabolic panel (08/07/2025 5:40 AM EST)Component ValueRef RangeTest MethodAnalysis TimePerformed AtPathologist SignatureSODIUM 987733 - 146 mmol/L110/07/2024 6:42 AM [facility] POTASSIUM3.2(L)3.5 - 5.0 mmol/L110/07/2024 6:42 AM [facility] IUCPKHRSQUGFZGPQAP226(H)98 - 109 mmol/L110/07/2024 6:42 AM [facility] LABORATORYCARBON WDGLWHE5106 - 32 mmol/L110/07/2024 6:42 AM [facility] LABORATORYANION GAP85 - 15 mmol/L110/07/2024 6:42 AM EST [facility] LABORATORYBLOOD UREA ERYRGVPP515 - 27 mg/dL08/07/2025 6:42 AM [facility] LABORATORYCREATININE0.670.40 - 1.00 mg/dL 08/07/2025 6:42 AM [facility] LABORATORYComment:METHOD TRACEABLE TO IDMS SRKXRILPETNLIRJ241(H)65 - 99 mg/dL08/07/2025 6:42 AM EST [facility] LABORATORYCALCIUM8.0(L)8.5 - 10.5 mg/dL08/07/2025 6:42 AM [facility] LABORATORYTOTAL PROTEIN5.6(L)6.0 - 8.0 g/dL08/07/2025 6:42 AM [facility] LABORATORYALBUMIN3.0(L)3.2 - 5.3 g/dL08/07/2025 6:42 AM [facility] LABORATORYALKALINE MUPXDDRLUZS2736 - 130 U/L110/07/2024 6:42 AM [facility] XUXBFJPHZVRSZ99<=41 U/L110/07/2024 6:42 AM [facility] LABORATORYALT4<=31 U/L110/07/2024 6:42 AM [facility] LABORATORYBILIRUBIN,TOTAL0.70.3 - 1.2 mg/dL08/07/2025 6:42 AM [facility] LABORATORYEGFR Non-Race Dependent>90>=60 ml/min/1.73sq.m 08/07/2025 6:42 AM [facility] LABORATORYComment: Reported eGFR is based on the CKD-EPI 2020 equation that does not use a race coefficient. Specimen (Source)Anatomical Location / LateralityCollection Method / Volume Collection TimeReceived TimeBloodVenous blood / UnknownVenipuncture / Unknown 08/07/2025 5:40 AM EST08/07/2025 6:04 AM EST Narrative Authorizing ProviderResult TypeResult StatusHala Magdaleno PASCUAL BLOOD ORDERABLESFinal ResultPerforming OrganizationAddressCity/State/ZIP CodePhone Number [facility] [address] [place] [address], * (ABNORMAL) CBC auto differential (08/07/2025 5:40 AM EST)ComponentValueRef RangeTest MethodAnalysis TimePerformed AtPathologist MpuhuwlqnYCM37.4(H)4 - 11 X10^9/L110/07/2024 6:49 AM [facility] LABORATORYRBC Count2.87 (L)3.8 - 5.2 X10^12/L110/07/2024 6:49 AM [facility] Hemoglobin8.3(L)11.7 - 15.5 g/dL08/07/2025 6:49 AM [facility] COCWJEFGQMBiyzhxowjj32.3(L)35 - 47 %08/07/2025 6:49 AM [facility] FUGWRYAZSFAKG2837 - 100 fL08/07/2025 6:49 AM [facility] DXHYWHLWKWNLL47.027 - 34 pg08/07/2025 6:49 AM [facility] QEGNMMQXPXZXED50.932 - 36 g/dL08/07/2025 6:49 AM [facility] RSNEUYTKMQMVN00.1(H)11.5 - 15 %08/07/2025 6:49 AM [facility] LABORATORYPlatelet Tzasw422795 - 450 X10^9/L110/07/2024 6:49 AM [facility] LABORATORYMPV7.87 - 12 fL08/07/2025 6:49 AM [facility] LABORATORYBands %1%08/07/2025 6:49 AM [facility] LABORATORYComment:This is an appended report. These results have been appended to a previously preliminary verified report.Neutrophils %84% 08/07/2025 6:49 AM [facility] LABORATORYComment:This is an appended report. These results have been appended to a previously preliminary verified report.Lymphocytes %9%08/07/2025 6:49 AM [facility] LABORATORYComment:This is an appended report. These results have been appended to a previously preliminary verified report.Monocytes %5%08/07/2025 6:49 AM [facility] LABORATORYComment:This is an appended report. These results have been appended to a previously preliminary verified report. Eosinophils %1%08/07/2025 6:49 AM [facility] Comment:This is an appended report. These results have been appended to a previously preliminary verified report.Neutrophils Absolute (M)15.6(H)1.5 - 6.6 X10^9/L110/07/2024 6:49 AM [facility] LABORATORYComment: This is an appended report. These results have been appended to a previously preliminary verified report.Lymphocytes Absolute1.71.0 - 3.5 X10^9/L110/07/2024 6:49 AM [facility] LABORATORYComment:This is an appended report. These results have been appended to a previously preliminary verified report.Monocytes Absolute0.90.0 - 0.9 X10^9/L110/07/2024 6:49 AM [facility] LABORATORYComment:This is an appended report. These results have been appended to a previously preliminary verified report.Eosinophils Absolute0.20.0 - 0.4 X10^9/L110/07/2024 6:49 AM [facility] LABORATORYComment:This is an appended report. These results have been appended to a previously preliminary verified report.Polychromasia1+08/07/2025 6:49 AM [facility] LABORATORYComment:This is an appended report. These results have been appended to a previously preliminary verified report. Differential TypeMANUAL GARMFTRQHCQT44/11/2025 6:49 AM [facility] LABORATORYComment:This is an appended report. These results have been appended to a previously preliminary verified report.Specimen (Source) Anatomical Location / LateralityCollection Method / VolumeCollection Time Received TimeBloodVenous blood / UnknownVenipuncture / Uymiwqe7508/07/2025 5:40 AM EST08/07/2025 6:04 AM EST Narrative Authorizing ProviderResult TypeResult StatusBrittnee PASCUAL BLOOD ORDERABLESFinal ResultPerforming OrganizationAddressCity/State/ZIP CodePhone Number [facility] [address] [place] [address], [place] [phone] * Crossmatch RBC:Number of Units: 1 (08/06/2025 6:37 AM EST)Specimen (Source) Anatomical Location / LateralityCollection Method / VolumeCollection Time Received TimeBloodVenous blood / Txjhmds7908/06/2025 6:37 AM EST Narrative Authorizing ProviderResult TypeResult StatusKassidnolan Still MDBLOOD BANK PRODUCT ORDERABLESFinal ResultPerforming OrganizationAddressCity/State/ZIP CodePhone Number [facility] * (ABNORMAL) Comprehensive metabolic panel (08/06/2025 6:23 AM EST)Component ValueRef RangeTest MethodAnalysis TimePerformed AtPathologist SignatureSODIUM [id number] - 146 mmol/L110/06/2024 7:33 AM [facility] POTASSIUM3.63.5 - 5.0 mmol/L110/06/2024 7:33 AM [facility] VCRESRTZNFEQWEPGFS887(H)98 - 109 mmol/L110/06/2024 7:33 AM [facility] LABORATORYCARBON IIUXZLQ08(L)22 - 32 mmol/L110/06/2024 7:33 AM [facility] LABORATORYANION WDQ788 - 15 mmol/L110/06/2024 7:33 AM [facility] LABORATORYBLOOD UREA HEDEMJSA794 - 27 mg/dL 08/06/2025 7:33 AM [facility] LABORATORYCREATININE0.680.40 - 1.00 mg/dL08/06/2025 7:33 AM [facility] LABORATORYComment: METHOD TRACEABLE TO IDMA JFILAVSWADLUUIX939(H)65 - 99 mg/dL08/06/2025 7:33 AM [facility] LABORATORYCALCIUM8.1(L)8.5 - 10.5 mg/dL08/06/2025 7:33 AM [facility] LABORATORYTOTAL PROTEIN5.6(L)6.0 - 8.0 g/dL08/06/2025 7:33 AM [facility] LABORATORYALBUMIN3.23.2 - 5.3 g/dL08/06/2025 7:33 AM [facility] LABORATORYALKALINE VGUZTQVEWXF7874 - 130 U/L110/06/2024 7:33 AM [facility] SBYONXGGGHBDQ12<=41 U/L110/06/2024 7:33 AM [facility] LABORATORYALT5<=31 U/L110/06/2024 7:33 AM [facility] LABORATORYBILIRUBIN,TOTAL0.70.3 - 1.2 mg/dL08/06/2025 7:33 AM [facility] LABORATORYEGFR Non-Race Dependent>90>=60 ml/min/1.73sq.m 08/06/2025 7:33 AM [facility] LABORATORYComment: Reported eGFR is based on the CKD-EPI 2020 equation that does not use a race coefficient. Specimen (Source)Anatomical Location / LateralityCollection Method / Volume Collection TimeReceived TimeBloodVenous blood / UnknownVenipuncture / Unknown 08/06/2025 6:23 AM EST08/06/2025 7:03 AM EST Narrative Authorizing ProviderResult TypeResult StatusHala Magdaleno PASCUAL BLOOD ORDERABLESFinal ResultPerforming OrganizationAddressCity/State/ZIP CodePhone Number [facility] [address] [place] [phone], * (ABNORMAL) CBC auto differential (08/06/2025 6:23 AM EST)ComponentValueRef RangeTest MethodAnalysis TimePerformed AtPathologist ZjqricrjhWWH83.4(H)4 - 11 X10^9/L110/06/2024 8:07 AM [facility] LABORATORYRBC Count2.87 (L)3.8 - 5.2 X10^12/L110/06/2024 8:07 AM [facility] Hemoglobin8.3(L)11.7 - 15.5 g/dL08/06/2025 8:07 AM [facility] TCDMMSYNUILhmemuqizk63.4(L)35 - 47 %08/06/2025 8:07 AM [facility] WLAPMSOMQIQFW3959 - 100 fL08/06/2025 8:07 AM [facility] IFFQUWZPKQGBM45.027 - 34 pg08/06/2025 8:07 AM [facility] OZSSASFQXROOJN88.832 - 36 g/dL08/06/2025 8:07 AM [facility] GGGSTCZEKVGYY61.2(H)11.5 - 15 %08/06/2025 8:07 AM [facility] LABORATORYPlatelet Vhqap160441 - 450 X10^9/L110/06/2024 8:07 AM [facility] LABORATORYMPV8.27 - 12 fL08/06/2025 8:07 AM [facility] LABORATORYNeutrophils %78%08/06/2025 8:07 AM [facility] LABORATORYComment:This is an appended report. These results have been appended to a previously preliminary verified report.Lymphocytes %16 %08/06/2025 8:07 AM [facility] LABORATORYComment:This is an appended report. These results have been appended to a previously preliminary verified report.Monocytes %5%08/06/2025 8:07 AM [facility] LABORATORYComment:This is an appended report. These results have been appended to a previously preliminary verified report.Eosinophils %1%08/06/2025 8:07 AM [facility] LABORATORYComment:This is an appended report. These results have been appended to a previously preliminary verified report. Neutrophils Absolute (M)16.7(H)1.5 - 6.6 X10^9/L110/06/2024 8:07 AM [facility] LABORATORYComment:This is an appended report. These results have been appended to a previously preliminary verified report.Lymphocytes Absolute3.41.0 - 3.5 X10^9/L110/06/2024 8:07 AM [facility] LABORATORYComment:This is an appended report. These results have been appended to a previously preliminary verified report.Monocytes Absolute1.1(H)0.0 - 0.9 X10^9/L110/06/2024 8:07 AM [facility] LABORATORYComment:This is an appended report. These results have been appended to a previously preliminary verified report.Eosinophils Absolute0.20.0 - 0.4 X10^9/L110/06/2024 8:07 AM [facility] LABORATORYComment:This is an appended report. These results have been appended to a previously preliminary verified report.Polychromasia1+08/06/2025 8:07 AM [facility] LABORATORYComment:This is an appended report. These results have been appended to a previously preliminary verified report.Differential TypeMANUAL DGPJQRQWFQDT12/10/2025 8:07 AM [facility] LABORATORYComment: This is an appended report. These results have been appended to a previously preliminary verified report.Specimen (Source)Anatomical Location / Laterality Collection Method / VolumeCollection TimeReceived TimeBloodVenous blood / UnknownVenipuncture / Rxmyrka9308/06/2025 6:23 AM EST08/06/2025 7:03 AM EST Narrative Authorizing ProviderResult TypeResult StatusHala Magdaleno Sam MDLAB BLOOD ORDERABLESFinal ResultPerforming OrganizationAddressCity/State/ZIP CodePhone Number [facility] [address] [place] [address], * (ABNORMAL) Comprehensive metabolic panel (08/05/2025 8:11 PM EST)Component ValueRef RangeTest MethodAnalysis TimePerformed AtPathologist SignatureSODIUM [id number] - 146 mmol/L110/05/2024 8:57 PM [facility] POTASSIUM3.3(L)3.5 - 5.0 mmol/L110/05/2024 8:57 PM [facility] FQCVKGVRYOIQQEDYJH065(H)98 - 109 mmol/L110/05/2024 8:57 PM [facility] LABORATORYCARBON JVBFQGV22(L)22 - 32 mmol/L110/05/2024 8:57 PM [facility] LABORATORYANION GAP75 - 15 mmol/L110/05/2024 8:57 PM [facility] LABORATORYBLOOD UREA CVHJYNJV883 - 27 mg/dL 08/05/2025 8:57 PM [facility] LABORATORYCREATININE0.680.40 - 1.00 mg/dL08/05/2025 8:57 PM [facility] LABORATORYComment: METHOD TRACEABLE TO IDMS WXKVQSUNHYCACVA264(H)65 - 99 mg/dL08/05/2025 8:57 PM [facility] LABORATORYCALCIUM8.0(L)8.5 - 10.5 mg/dL08/05/2025 8:57 PM [facility] LABORATORYTOTAL PROTEIN5.4(L)6.0 - 8.0 g/dL08/05/2025 8:57 PM [facility] LABORATORYALBUMIN3.0(L)3.2 - 5.3 g/dL08/05/2025 8:57 PM [facility] LABORATORYALKALINE OZTKDFCOQMR2953 - 130 U/L110/05/2024 8:57 PM [facility] BBNEWYAXFVVVG99<=41 U/L110/05/2024 8:57 PM [facility] LABORATORYALT5<=31 U/L110/05/2024 8:57 PM [facility] LABORATORYBILIRUBIN,TOTAL0.60.3 - 1.2 mg/dL08/05/2025 8:57 PM [facility] [facility]ORYEGFR Non-Race Dependent>90>=60 ml/min/1.73sq.m 08/05/2025 8:57 PM [facility] LABORATORYComment: Reported eGFR is based on the CKD-EPI 2020 equation that does not use a race coefficient. Specimen (Source)Anatomical Location / LateralityCollection Method / Volume Collection TimeReceived TimeBloodVenous blood / UnknownVenipuncture / Unknown 08/05/2025 8:11 PM EST08/05/2025 8:30 PM EST Narrative Authorizing ProviderResult TypeResult StatusHala Magdaleno PASCUAL BLOOD ORDERABLESFinal ResultPerforming OrganizationAddressCity/State/ZIP CodePhone Number [facility] [address] [place] [address], * CT chest with contrast (08/05/2025 12:11 PM EST)Anatomical RegionLaterality ModalityBody, Lung, Chest, Body CoveraN/AComputed TomographySpecimen (Source) Anatomical Location / LateralityCollection Method / VolumeCollection Time Received Time08/06/2025 7:16 AM EST Narrative 08/06/2025 7:20 AM EST HISTORY: Pelvic mass and vaginal bleeding. Lung nodules found at the lung bases on the CT abdomen from August 02 from an outside facility PROCEDURE: CT chest performed using IV contrast without complications. Postcontrast images obtained. Automatedexposure control utilized. Findings/Impression: * ??Left lower lobe lung nodule suspicious for metastatic disease adjacent to the major fissure measuring 8.4 mm. PET/CT recommended * ??Another nodule measuring approximately 5 mm shown on the recent CT abdomen lung bases not delineated on this examination probably because it is obscured by new consolidation at the lung bases which is probably atelectasis. No other convincing nodules delineated * ??Left axillary adenopathy and equivocal right axillary adenopathy suspicious for metastatic disease * ??No mediastinal or hilar adenopathy appreciated * ??There is wall thickening involving the distal esophagus at the gastroesophageal junction. This could be due to hiatal hernia or inflammation or neoplasm. Endoscopy suggested. Finalized by Timothy Green MD on 08/06/2025 7:20 AM Procedure Note Timothy Green MD - 08/06/2025 HISTORY: Pelvic mass and vaginal bleeding. Lung nodules found at the lung bases onthe CT abdomen from August 02 from an outside facility PROCEDURE: CT chest performed using IV contrast without complications. Postcontrastimages obtained. Automated exposure control utilized. Findings/Impression: * Left lower lobe lung nodule suspicious for metastatic disease adjacentto the major fissure measuring 8.4 mm. PET/CT recommended * Another nodule measuring approximately 5 mm shown on the recent CTabdomen lung bases not delineated on this examination probably because itis obscured by new consolidation at the lung bases which is probablyatelectasis. No other convincing nodules delineated * Left axillary adenopathy and equivocal right axillary adenopathysuspicious for metastatic disease * No mediastinal or hilar adenopathy appreciated * There is wall thickening involving the distal esophagus at thegastroesophageal junction. This could be due to hiatal hernia orinflammation or neoplasm. Endoscopy suggested. Finalized by Timothy Green MD on 08/06/2025 7:20 AM Authorizing ProviderResult TypeResult StatusAlexandria Lasalla [facility] CT ORDERABLESFinal Result * (ABNORMAL) CBC auto differential (08/05/2025 4:02 AM EST)ComponentValueRef RangeTest MethodAnalysis TimePerformed AtPathologist PeonojxjkUMJ40.8(H)4 - 11 X10^9/L110/05/2024 6:43 AM [facility] LABORATORYRBC Count2.76 (L)3.8 - 5.2 X10^12/L110/05/2024 6:43 AM [facility] Hemoglobin8.0(L)11.7 - 15.5 g/dL08/05/2025 6:43 AM [facility] QKYLZFJQJMRpxukksxxj28.4(L)35 - 47 %08/05/2025 6:43 AM [facility] ZGWPBWWXNWLBY8320 - 100 fL08/05/2025 6:43 AM [facility] SMLCYMMCDQQDK92.127 - 34 pg08/05/2025 6:43 AM [facility] XPTGWCECPBCVUP19.032 - 36 g/dL08/05/2025 6:43 AM [facility] QWPQHIWOCSYMZ37.8(H)11.5 - 15 %08/05/2025 6:43 AM [facility] LABORATORYPlatelet Stynb672880 - 450 X10^9/L110/05/2024 6:43 AM [facility] LABORATORYMPV8.17 - 12 fL08/05/2025 6:43 AM [facility] LABORATORYNeutrophils %84.1%08/05/2025 6:43 AM [facility] LABORATORYComment:This is an appended report. These results have been appended to a previously preliminary verified report.Lymphocytes % 10.6%08/05/2025 6:43 AM [facility] LABORATORYComment:This is an appended report. These results have been appended to a previously preliminary verified report.Monocytes %5.1%08/05/2025 6:43 AM [facility] LABORATORYComment:This is an appended report. These results have been appended to a previously preliminary verified report.Eosinophils % 0.0%08/05/2025 6:43 AM [facility] LABORATORYComment:This is an appended report. These results have been appended to a previously preliminary verified report.Basophils %0.2%08/05/2025 6:43 AM [facility] LABORATORYComment:This is an appended report. These results have been appended to a previously preliminary verified report.Neutrophils Absolute (A)16.6(H)1.5 - 6.6 X10^9/L110/05/2024 6:43 AM [facility] LABORATORYComment:This is an appended report. These results have been appended to a previously preliminary verified report.Lymphocytes Absolute2.1 1.0 - 3.5 X10^9/L110/05/2024 6:43 AM [facility] Comment:This is an appended report. These results have been appended to a previously preliminary verified report.Monocytes Absolute1.0(H)0.0 - 0.9 X10^9/L110/05/2024 6:43 AM [facility] LABORATORYComment:This is an appended report. These results have been appended to a previously preliminary verified report.Eosinophils Absolute0.00.0 - 0.4 X10^9/L110/05/2024 6:43 AM [facility] LABORATORYComment:This is an appended report. These results have been appended to a previously preliminary verified report.Basophils Absolute0.00.0 - 0.2 X10^9/L110/05/2024 6:43 AM [facility]ORATORYComment:This is an appended report. These results have been appended to a previously preliminary verified report.Differential TypeAUTOMATED QRNOLWVPLBKK17/09/2025 6:43 AM [facility] LABORATORYComment:This is an appended report. These results have been appended to a previously preliminary verified report.Specimen (Source)Anatomical Location / LateralityCollection Method / VolumeCollection TimeReceived Time BloodVenous blood / UnknownVenipuncture / Wjmkgbp1708/05/2025 4:02 AM EST 08/05/2025 4:20 AM EST Narrative Authorizing ProviderResult TypeResult StatusKassidy Rejent [facility] BLOOD ORDERABLESFinal ResultPerforming OrganizationAddressCity/State/ZIP CodePhone Number [facility] [address] [place] [address], * (ABNORMAL) Comprehensive metabolic panel (08/05/2025 4:02 AM EST)Component ValueRef RangeTest MethodAnalysis TimePerformed AtPathologist SignatureSODIUM 717387 - 146 mmol/L110/05/2024 4:52 AM [facility] POTASSIUM3.53.5 - 5.0 mmol/L110/05/2024 4:52 AM [facility] FNHVASGVSIQMIZXNEH891(H)98 - 109 mmol/L110/05/2024 4:52 AM [facility] LABORATORYCARBON ZKQAFOD23(L)22 - 32 mmol/L110/05/2024 4:52 AM [facility] LABORATORYANION GAP75 - 15 mmol/L110/05/2024 4:52 AM [facility] LABORATORYBLOOD UREA UFEULLCY056 - 27 mg/dL 08/05/2025 4:52 AM [facility] LABORATORYCREATININE0.690.40 - 1.00 mg/dL08/05/2025 4:52 AM [facility] LABORATORYComment: METHOD TRACEABLE TO IDMA EKXFUXVJPSDQPOQ578(H)65 - 99 mg/dL08/05/2025 4:52 AM [facility] LABORATORYCALCIUM8.0(L)8.5 - 10.5 mg/dL08/05/2025 4:52 AM [facility] LABORATORYTOTAL PROTEIN5.2(L)6.0 - 8.0 g/dL08/05/2025 4:52 AM [facility] LABORATORYALBUMIN3.0(L)3.2 - 5.3 g/dL08/05/2025 4:52 AM [facility] LABORATORYALKALINE MPCVLAOIGKZ1860 - 130 U/L110/05/2024 4:52 AM [facility] UJSYUDUQVOESP93<=41 U/L110/05/2024 4:52 AM [facility] LABORATORYALT5<=31 U/L110/05/2024 4:52 AM [facility] LABORATORYBILIRUBIN,TOTAL0.70.3 - 1.2 mg/dL08/05/2025 4:52 AM [facility] LABORATORYEGFR Non-Race Dependent>90>=60 ml/min/1.73sq.m 08/05/2025 4:52 AM [facility] LABORATORYComment: Reported eGFR is based on the CKD-EPI 2020 equation that does not use a race coefficient. Specimen (Source)Anatomical Location / LateralityCollection Method / Volume Collection TimeReceived TimeBloodVenous blood / UnknownVenipuncture / Unknown 08/05/2025 4:02 AM EST08/05/2025 4:20 AM EST Narrative Authorizing ProviderResult TypeResult StatusKassidy Rejent MDLAB BLOOD ORDERABLESFinal ResultPerforming OrganizationAddressCity/State/ZIP CodePhone Number [facility] [address] [place] [address], * Transfuse RBC:2 Units (08/04/2025 9:09 PM EST) Narrative Authorizing ProviderResult TypeResult StatusKassidy Rejent MDBLOOD TRANSFUSION ORDERABLESFinal Result * Transfuse RBC:2 Units (08/04/2025 9:09 PM EST) Narrative Authorizing ProviderResult TypeResult StatusKassidy Rejent MDBLOOD TRANSFUSION ORDERABLESFinal Result * (ABNORMAL) CBC auto differential (08/04/2025 12:18 PM EST)ComponentValueRef RangeTest MethodAnalysis TimePerformed AtPathologist XuttsjugzQZL11.4(H)4 - 11 X10^9/L110/04/2024 2:03 PM [facility] LABORATORYRBC Count3.12 (L)3.8 - 5.2 X10^12/L110/04/2024 2:03 PM [facility] Hemoglobin9.1(L)11.7 - 15.5 g/dL08/04/2025 2:03 PM [facility] VLNRSJXHFNUbhqywkwos74.6(L)35 - 47 %08/04/2025 2:03 PM [facility] TIOJPAHKUHHGY9764 - 100 fL08/04/2025 2:03 PM [facility] DQEEBRKDXMGPI52.027 - 34 pg08/04/2025 2:03 PM [facility] ETUYXNDVBRLFCW22.832 - 36 g/dL08/04/2025 2:03 PM [facility] VHYDVZESRJKAL52.8(H)11.5 - 15 %08/04/2025 2:03 PM [facility] LABORATORYPlatelet Cvzbk108422 - 450 X10^9/L110/04/2024 2:03 PM [facility] LABORATORYMPV8.37 - 12 fL08/04/2025 2:03 PM [facility] LABORATORYNeutrophils %88.9%08/04/2025 2:03 PM [facility] LABORATORYComment:This is an appended report. These results have been appended to a previously preliminary verified report.Lymphocytes % 8.7%08/04/2025 2:03 PM [facility]ORATORYComment:This is an appended report. These results have been appended to a previously preliminary verified report.Monocytes %1.7%08/04/2025 2:03 PM [facility] LABORATORYComment:This is an appended report. These results have been appended to a previously preliminary verified report.Eosinophils % 0.4%08/04/2025 2:03 PM [facility] LABORATORYComment:This is an appended report. These results have been appended to a previously preliminary verified report.Basophils %0.3%08/04/2025 2:03 PM [facility]ORATORYComment:This is an appended report. These results have been appended to a previously preliminary verified report.Neutrophils Absolute (A)12.8(H)1.5 - 6.6 X10^9/L110/04/2024 2:03 PM [facility] LABORATORYComment:This is an appended report. These results have been appended to a previously preliminary verified report.Lymphocytes Absolute1.2 1.0 - 3.5 X10^9/L110/04/2024 2:03 PM [facility] Comment:This is an appended report. These results have been appended to a previously preliminary verified report.Monocytes Absolute0.20.0 - 0.9 X10^9/L 08/04/2025 2:03 PM [facility] LABORATORYComment:This is an appended report. These results have been appended to a previously preliminary verified report.Eosinophils Absolute0.10.0 - 0.4 X10^9/L110/04/2024 2:03 PM EST [facility]ATORYComment:This is an appended report. These results have been appended to a previously preliminary verified report. Basophils Absolute0.00.0 - 0.2 X10^9/L110/04/2024 2:03 PM [facility] LABORATORYComment:This is an appended report. These results have been appended to a previously preliminary verified report.Elliptocytes1+08/04/2025 2:03 PM [facility] LABORATORYComment:This is an appended report. These results have been appended to a previously preliminary verified report.Differential TypeAUTOMATED DZGYMIBPWWWI89/08/2025 2:03 PM [facility] LABORATORYComment:This is an appended report. These results have been appended to a previously preliminary verified report.Specimen (Source)Anatomical Location / LateralityCollection Method / VolumeCollection TimeReceived TimeBloodVenous blood / UnknownVenipuncture / Irjxozz4908/04/2025 12:18 PM EST08/04/2025 12:27 PM EST Narrative Authorizing ProviderResult TypeResult StatusAlexandria Lasalla DOLAB BLOOD ORDERABLESFinal ResultPerforming OrganizationAddressCity/State/ZIP CodePhone Number [facility] [address] [place] [address], * Transfuse RBC:2 Units (08/04/2025 10:00 AM EST) Narrative Authorizing ProviderResult TypeResult StatusKassidy Rejent MDBLOOD TRANSFUSION ORDERABLESFinal Result * ABO Rh Repeat (08/04/2025 8:27 AM EST)Specimen (Source)Anatomical Location / LateralityCollection Method / VolumeCollection TimeReceived Time08/04/2025 8:27 AM EST Narrative Authorizing ProviderResult TypeResult StatusKassidy Rejent MDBLOOD BANK TEST ORDERABLESFinal ResultPerforming OrganizationAddressCity/State/ZIP CodePhone Number [facility] * ABO Rh Repeat (08/04/2025 7:41 AM EST)ComponentValueRef RangeTest Method Analysis TimePerformed AtPathologist FteelmjqcEUME99/08/2025 8:26 AM ESTTTH BB - JNWTPBWSHGunsyzhl92/08/2025 8:26 AM ESTTTH BB - WELLSKYSpecimen (Source) Anatomical Location / LateralityCollection Method / VolumeCollection Time Received TimeBloodVenous blood / UnknownVenipuncture / Uwhlfvo3408/04/2025 7:41 AM EST08/04/2025 8:14 AM EST Narrative Authorizing ProviderResult TypeResult StatusAleia K Catherine MDBLOOD BANK TEST ORDERABLESFinal ResultPerforming OrganizationAddressCity/State/ZIP CodePhone Number [facility] BB - JANETKY [address] [place] [address], * Crossmatch RBC:Number of Units: 2 (08/04/2025 5:30 AM EST)ComponentValueRef RangeTest MethodAnalysis TimePerformed AtPathologist SignatureBlood component [id number] BANK - WELLSKYUnit [id number] BANK - [place]LL[place] Unit ABOOBLOOD BANK - WELLSKYUnit RHNEGBLOOD BANK - WELLSKYCrossmatch CompatibleBLOOD BANK - WELLSKYStatus of unitTRANSFUSEDBLOOD BANK - WELLSKY Expiration [id number] BANK - WELLSKYBB Type Bmcpgsk6063YJWPE BANK - WELLSKYBlood component pntsX4103G49XCEWT BANK - WELLSKYUnit number [id number] BANK - WELLSKYUnit ABOOBLOOD BANK - WELLSKYUnit RHNEG BLOOD BANK - WELLSKYCrossmatchCompatibleBLOOD BANK - WELLSKYStatus of unit TRANSFUSEDBLOOD BANK - WELLSKYExpiration [id number] BANK - [place]LL[place]Y BB Type Cowhkyf1337KTISB BANK - WELLSKYSpecimen (Source)Anatomical Location / LateralityCollection Method / VolumeCollection TimeReceived TimeBlood 08/04/2025 5:30 AM EST08/04/2025 5:47 AM EST Narrative Authorizing ProviderResult TypeResult StatusKassidy Rejent MDBLOOD BANK PRODUCT ORDERABLESEdited Result - FinalPerforming OrganizationAddressCity/State/ZIP Code Phone Number BLOOD BANK - [place] * Fibrinogen (08/04/2025 5:30 AM EST)ComponentValueRef RangeTest MethodAnalysis TimePerformed AtPathologist KilnifvnuUNZIGODOLX851688 - 480 mg/dL08/04/2025 6:07 AM [facility] LABORATORYSpecimen (Source)Anatomical Location / LateralityCollection Method / VolumeCollection TimeReceived Time BloodVenous blood / UnknownVenipuncture / Jjvgoau0808/04/2025 5:30 AM EST 08/04/2025 5:42 AM EST Narrative Authorizing ProviderResult TypeResult StatusKassidnolan PASCUAL BLOOD ORDERABLESFinal ResultPerforming OrganizationAddressCity/State/ZIP CodePhone Number [facility] [address] [place] [address], [place] [phone] * (ABNORMAL) APTT (08/04/2025 5:30 AM EST)ComponentValueRef RangeTest Method Analysis TimePerformed AtPathologist PfqxsutvjJKLT22(L)26 - 37 sec08/04/2025 6:07 AM [facility] LABORATORYSpecimen (Source)Anatomical Location / LateralityCollection Method / VolumeCollection TimeReceived Time BloodVenous blood / UnknownVenipuncture / Alshyzx3508/04/2025 5:30 AM EST 08/04/2025 5:42 AM EST Narrative Authorizing ProviderResult TypeResult StatusMicssivelisse PASCUAL BLOOD ORDERABLESFinal ResultPerforming OrganizationAddressCity/State/ZIP CodePhone Number [facility] [address] [place] [address], [place] [phone] * Protime & INR (08/04/2025 5:30 AM EST)ComponentValueRef RangeTest Method Analysis TimePerformed AtPathologist PulftbxkvZNFZMWR09.89.8 - 13.2 sec 08/04/2025 6:07 AM [facility] LABORATORYINR1.00.9 - 1.2 08/04/2025 6:07 AM [facility] LABORATORYSpecimen (Source) Anatomical Location / LateralityCollection Method / VolumeCollection Time Received TimeBloodVenous blood / UnknownVenipuncture / Lzqeaso5208/04/2025 5:30 AM EST08/04/2025 5:42 AM EST Narrative Authorizing ProviderResult TypeResult StatusKassidy Cheko MDLAB BLOOD ORDERABLESFinal ResultPerforming OrganizationAddressCity/State/ZIP CodePhone Number [facility] [address] [place] [address], [place] [phone] * Type and screen (08/04/2025 5:30 AM EST)ComponentValueRef RangeTest Method Analysis TimePerformed AtPathologist YytyhsapeKHQL53/08/2025 8:20 AM ESTTTH BB - ICNENEKGHVmekpmth53/08/2025 8:20 AM ESTTTH BB - WELLSKYAntibody Screen Qhrxiquj26/08/2025 8:20 AM ESTTTH BB - WELLSKYSpecimen (Source)Anatomical Location / LateralityCollection Method / VolumeCollection TimeReceived Time BloodVenous blood / UnknownVenipuncture / Wswgzvm9008/04/2025 5:30 AM EST 08/04/2025 5:46 AM EST Narrative Authorizing ProviderResult TypeResult StatusKassidnolan Still MDBLOOD BANK TEST ORDERABLESEdited Result - FinalPerforming OrganizationAddressCity/State/ZIP Code Phone Number [facility] RAJI - JOEL [address] [place] [address], * (ABNORMAL) CBC auto differential (08/04/2025 5:30 AM EST)ComponentValueRef RangeTest MethodAnalysis TimePerformed AtPathologist BlwwdaipnMOR98.7(H)4 - 11 X10^9/L110/04/2024 7:43 AM [facility] LABORATORYRBC Count2.10 (L)3.8 - 5.2 X10^12/L110/04/2024 7:43 AM [facility] Hemoglobin5.8(LL)11.7 - 15.5 g/dL08/04/2025 7:43 AM [facility] OSIJTAKXBZNppiaakgwo51.0(L)35 - 47 %08/04/2025 7:43 AM [facility] MOJAWJFRMXDRC1828 - 100 fL08/04/2025 7:43 AM [facility] QZOKOPGLUUKSM26.727 - 34 pg08/04/2025 7:43 AM [facility] WBTBAODMETTRWY92.532 - 36 g/dL08/04/2025 7:43 AM [facility] YOKAUUXQQUJBS16.3(H)11.5 - 15 %08/04/2025 7:43 AM [facility] LABORATORYPlatelet Oztvm855628 - 450 X10^9/L110/04/2024 7:43 AM [facility] LABORATORYMPV8.37 - 12 fL08/04/2025 7:43 AM [facility] LABORATORYNeutrophils %82%08/04/2025 7:43 AM [facility] LABORATORYComment:This is an appended report. These results have been appended to a previously preliminary verified report. Lymphocytes %16%08/04/2025 7:43 AM [facility] Comment:This is an appended report. These results have been appended to a previously preliminary verified report.Monocytes %2%08/04/2025 7:43 AM [facility] LABORATORYComment:This is an appended report. These results have been appended to a previously preliminary verified report. Neutrophils Absolute (M)11.2(H)1.5 - 6.6 X10^9/L110/04/2024 7:43 AM [facility] LABORATORYComment:This is an appended report. These results have been appended to a previously preliminary verified report.Lymphocytes Absolute2.21.0 - 3.5 X10^9/L110/04/2024 7:43 AM [facility] LABORATORYComment:This is an appended report. These results have been appended to a previously preliminary verified report.Monocytes Absolute0.30.0 - 0.9 X10^9/L110/04/2024 7:43 AM [facility] LABORATORYComment:This is an appended report. These results have been appended to a previously preliminary verified report.Elliptocytes1+08/04/2025 7:43 AM [facility] LABORATORYComment:This is an appended report. These results have been appended to a previously preliminary verified report.Differential TypeMANUAL KLWLDQWUZLGN26/08/2025 7:43 AM [facility] LABORATORYComment:This is an appended report. These results have been appended to a previously preliminary verified report.Specimen (Source)Anatomical Location / LateralityCollection Method / VolumeCollection TimeReceived Time BloodVenous blood / UnknownVenipuncture / Gleinre3608/04/2025 5:30 AM EST 08/04/2025 5:42 AM EST Narrative Authorizing ProviderResult TypeResult StatusKassidy Rejent MDLAB BLOOD ORDERABLESFinal ResultPerforming OrganizationAddressCity/State/ZIP CodePhone Number [facility] [address] [place] [address], * (ABNORMAL) Comprehensive metabolic panel (08/04/2025 5:30 AM EST)Component ValueRef RangeTest MethodAnalysis TimePerformed AtPathologist SignatureSODIUM 559163 - 146 mmol/L110/04/2024 6:15 AM [facility] POTASSIUM3.63.5 - 5.0 mmol/L110/04/2024 6:15 AM [facility] LJAVTSGBRFNVLOIOZY610(H)98 - 109 mmol/L110/04/2024 6:15 AM [facility] LABORATORYCARBON JHDSTAY80(L)22 - 32 mmol/L110/04/2024 6:15 AM [facility] LABORATORYANION GAP95 - 15 mmol/L110/04/2024 6:15 AM [facility] LABORATORYBLOOD UREA AJGDUZCC100 - 27 mg/dL 08/04/2025 6:15 AM [facility] LABORATORYCREATININE0.600.40 - 1.00 mg/dL08/04/2025 6:15 AM [facility] LABORATORYComment: METHOD TRACEABLE TO IDMS URISGJTMTTOKFRH676(H)65 - 99 mg/dL08/04/2025 6:15 AM [facility] LABORATORYCALCIUM7.8(L)8.5 - 10.5 mg/dL08/04/2025 6:15 AM [facility] LABORATORYTOTAL PROTEIN5.4(L)6.0 - 8.0 g/dL08/04/2025 6:15 AM [facility] LABORATORYALBUMIN3.1(L)3.2 - 5.3 g/dL08/04/2025 6:15 AM [facility] LABORATORYALKALINE NMQDVXHMLTF3840 - 130 U/L110/04/2024 6:15 AM [facility] BZWNXTZNTRFQR47<=41 U/L110/04/2024 6:15 AM [facility] LABORATORYALT5<=31 U/L110/04/2024 6:15 AM [facility] LABORATORYBILIRUBIN,TOTAL0.30.3 - 1.2 mg/dL08/04/2025 6:15 AM [facility] LABORATORYEGFR Non-Race Dependent>90>=60 ml/min/1.73sq.m 08/04/2025 6:15 AM [facility] LABORATORYComment: Reported eGFR is based on the CKD-EPI 2020 equation that does not use a race coefficient. Specimen (Source)Anatomical Location / LateralityCollection Method / Volume Collection TimeReceived TimeBloodVenous blood / UnknownVenipuncture / Unknown 08/04/2025 5:30 AM EST08/04/2025 5:42 AM EST Narrative Authorizing ProviderResult TypeResult StatusKassidy Rejent MDLAB BLOOD ORDERABLESFinal ResultPerforming OrganizationAddressCity/State/ZIP CodePhone Number [facility] [address] [place] [address], documented in this encounter Visit Diagnoses Diagnosis Pelvic mass- Primary Abdominal or pelvic swelling, mass or lump, unspecified site Pelvic mass Abdominal or pelvic swelling, mass or lump, unspecified site Endometrial cancer determined by uterine biopsy [place] [place] Limited mobility Nausea Nausea alone Vagina bleeding Other specified noninflammatory disorder of vagina Vaginal bleeding Other specified noninflammatory disorder of vagina Endometrial cancer determined by uterine biopsy ([facility] [place]) documented in this encounter Admitting Diagnoses Diagnosis Pelvic mass Abdominal or pelvic swelling, mass or lump, unspecified site Vagina bleeding Other specified noninflammatory disorder of vagina Vaginal bleeding Other specified noninflammatory disorder of vagina documented in this encounter Administered Medications Medication OrderMAR ActionAction DateDoseRateSite acetaminophen (TYLENOL EXTRA STRENGTH) tablet 1,000 mg 1,000 mg, oral, Every 6 hours PRN, moderate pain - pain scale 4-6, mild pain - pain scale 1-3, temperature greater than 38 C, headaches, Starting on 08/05/25 at 1621 Given08/09/2025 9:44 AM EST1,000 fdUawwo0908/06/2025 7:58 AM EST1,000 mg acetaminophen (TYLENOL EXTRA STRENGTH) tablet 1,000 mg 1,000 mg, oral, Once, On Wed08/07/25 at 1200, For 1 dose, Pre-op, 30 minutes prior to surgery Indications:Endometrial cancer determined by uterine biopsy [place] [place]Given 08/07/2025 12:19 PM EST1,000 mg amisulpride (BARHEMSYS) injection 10 mg 10 mg, intravenous, Once, On Wed08/07/25 at 1245, For 1 dose, Pre-op, Administer over 2 minutes. Flush line before and after administration with D5W or NS. Given08/07/2025 12:55 PM EST10 mg bisacodyL (DULCOLAX) suppository 10 mg 10 mg, rectal, Daily PRN, constipation, Starting on Wed08/08/25 at 0702, Look-alike/sound-alike medication - verify indication for use. celecoxib (CeleBREX) capsule 400 mg 400 mg, oral, Once, On Wed08/07/25 at 1200, For 1 dose, Pre-op, Administer 1 hour prior to surgeryLook-alike/sound-alike medication - verify indication for use. Indications:Endometrial cancer determined by uterine biopsy [place] [place]Given 08/07/2025 12:18 PM RAM064 mg dextrose (GLUTOSE) 40 % gel 15 g 15 g, oral, As needed, low blood sugar, blood glucose less than 70 mg/dL, Starting on 08/04/25 at 0336, If patient conscious and taking PO. If blood glucose is not greater than 70 mg/dL after initial treatment, repeat treatment. dextrose (GLUTOSE) 40 % gel 15 g 15 g, oral, As needed, low blood sugar, blood glucose less than 70 mg/dL, Starting on 08/04/25 at 1031, If patient conscious and taking PO. If blood glucose is not greater than 70 mg/dL after initial treatment, repeat treatment. dextrose 5 % (D5W) infusion 100 mL/hr, intravenous, Continuous PRN, blood glucose less than 70 mg/dL, Starting on 08/04/25 at 0336, For 365 days, Use immediately following dextrose 50% or glucagon treatment for patients who are unconscious or NPO. Contact prescriber for additional orders. If blood glucose is not greater than 70 mg/dL after initial treatment, repeat treatment. dextrose 5 % (D5W) infusion 100 mL/hr, intravenous, Continuous PRN, blood glucose less than 70 mg/dL, Starting on 08/04/25 at 1031, For 365 days, Use immediately following dextrose 50% or glucagon treatment for patients who are unconscious or NPO. Contact prescriber for additional orders. If blood glucose is not greater than 70 mg/dL after initial treatment, repeat treatment. dextrose 50 % in water (D50W) 50% solution 25 mL 25 mL, intravenous, As needed, low blood sugar, blood glucose less than 70 mg/dL and unconscious orNPO with IV access, Starting on 08/04/25 at 0336, Push over 1-3 minutes STAT. If conscious and not NPO, immediately follow with meal tray or high protein (7 grams) snack if tray not available. If NPO, initiate 5% dextrose in water at 100 mL/hr and contact prescriber for additional orders. If blood glucose is not greater than 70 mg/dL after initial treatment, repeat treatment. VESICANT (RED) Warning: HYPERTONIC solution. dextrose 50 % in water (D50W) 50% solution 25 mL 25 mL, intravenous, As needed, low blood sugar, blood glucose less than 70 mg/dL and unconscious orNPO with IV access, Starting on 08/04/25 at 1031, Push over 1-3 minutes STAT. If conscious and not NPO, immediately follow with meal tray or high protein (7 grams) snack if tray not available. If NPO, initiate 5% dextrose in water at 100 mL/hr and contact prescriber for additional orders. If blood glucose is not greater than 70 mg/dL after initial treatment, repeat treatment. VESICANT (RED) Warning: HYPERTONIC solution. famotidine (PEPCID) tablet 20 mg 20 mg, oral, 2 times daily, First dose on [place] 08/09/25 at 1030 Indications:ToxclvSdexe31/13/2025 12:05 PM EST20 mg fentaNYL (SUBLIMAZE) injection 50 mcg 50 mcg, intravenous, Every 5 min PRN, Pain Scale 6-10, Starting on 08/04/25 at 1036, PACU (only), Up to a maximum dose of 150 mcg. Look-alike/sound-alike medication - verify indication for use. Given08/04/2025 11:00 AM EST50 ackYmieh95/08/2025 10:49 AM EST50 mcg fentaNYL (SUBLIMAZE) injection 50 mcg 50 mcg, intravenous, Every 5 min PRN, Pain Scale 6-10, Starting on 08/07/25 at 1607, PACU (only), Up to a maximum dose of 150 mcg. Look-alike/sound-alike medication - verify indication for use. Given08/07/2025 5:09 PM EST50 mcg gabapentin (NEURONTIN) tablet 600 mg 600 mg, oral, Once, On 08/07/25 at 1200, For 1 dose, Pre-op, Administer 1 hour prior to surgeryLook-alike/sound-alike medication - verify indication for use. Indications:Endometrial cancer determined by uterine biopsy ([facility]Given 08/07/2025 12:18 PM [id number] mg glucagon HCL injection 1 mg 1 mg, intramuscular, As needed, low blood sugar, blood glucose less than 70 mg/dL and unconscious or NPO without IV access., Starting on 08/04/25 at 0336, If conscious and not NPO, immediately follow with meal tray or high protein (7Grams) snack if tray not available. If NPO, initiate IV 5% Dextr ose/Water at 100 mL/hr and contact prescriber for additional orders. If blood glucose is not greater than 70 mg/dL after initial treatment, repeat treatment. glucagon HCL injection 1 mg 1 mg, intramuscular, As needed, low blood sugar, blood glucose less than 70 mg/dL and unconscious or NPO without IV access., Starting on 08/04/25 at 1031, If conscious and not NPO, immediately follow with meal tray or high protein (7Grams) snack if tray not available. If NPO, initiate IV 5% Dextr ose/Water at 100 mL/hr and contact prescriber for additional orders. If blood glucose is not greater than 70 mg/dL after initial treatment, repeat treatment. HYDROmorphone (DILAUDID) injection 0.5 mg 0.5 mg, intravenous, Every 5 min PRN, for Pain Scale 6-10 if pain not controlled by fentanyl, Starting on 08/04/25 at 1036, PACU (only), Up to a maximum of 1.5 mg Look-alike/sound-alike medication- verify indication for use. Given08/04/2025 11:18 AM EST0.5 mg HYDROmorphone (DILAUDID) injection 0.5 mg 0.5 mg, intravenous, Every 4 hours PRN, severe pain - pain scale 7-10, breakthrough pain, Starting on 08/04/25 at 1033, If IV push, administer over over 2 to 3 minutes. Look-alike/sound-alike medication - verify indication for use. HYDROmorphone (PF) (DILAUDID) injection 0.2 mg 0.2 mg, intravenous, Once, On 08/04/25 at 0500, For 1 dose, If IV push, administer over over 2 to 3 minutes. Look-alike/sound-alike medication - verify indication for use. Given08/04/2025 5:31 AM EST0.2 mg HYDROmorphone (PF) (DILAUDID) injection 0.5 mg 0.5 mg, intravenous, Every 4 hours PRN, severe pain - pain scale 7-10, breakthrough, give chava first, Starting on 08/04/25 at 0618, If IV push, administer over over 2 to 3 minutes. Look-alike/sound-alike medication - verify indication for use. iohexoL (OMNIPAQUE) 300 mg iodine/mL 100 mL 100 mL, intravenous, Once in imaging, contrast, Starting on 08/05/25 at 1158, For 1 dose, VESICANT (RED) Given08/05/2025 12:14 PM [id number] mL lactated ringers bolus 500 mL, intravenous, at 968 mL/hr, Administer over 31 Minutes, Once, On Wed08/08/25 at 1130, For 1dose New Bag08/08/2025 12:08 PM [id number] mL968 mL/hr lactated ringers infusion 50 mL/hr, intravenous, Continuous, Starting on Tu08/07/25 at 1245, Pre-op, If fluid restriction is not indicated, infuse at a rate up to 5 mL/kg/hr not to exceed the total replacement volume (2 ml/kg/hr) from the time NPO status was initiated. New Bag08/07/2025 12:55 PM EST50 mL/hr50 mL/hr magnesium hydroxide (MILK OF MAGNESIA) suspension 30 mL 30 mL, oral, Daily, First dose on Wed08/08/25 at 0900, Shake well. midazolam (PF) (VERSED) injection 2 mg 2 mg, intravenous, As needed, anxiety, pre-op, Starting on 08/04/25 at 0808, For 1 dose, Pre-op,Indication: Other, Indication: anxiety Given08/04/2025 9:32 AM EST2 mg ondansetron (PF) (ZOFRAN) injection 8 mg 8 mg, intravenous, Every 8 hours PRN, nausea, vomiting, Starting on 08/06/25 at 1145, Intravenous administration preferred to be given over 2-5 minutes., Intravenous Specific Administration: IV Push Given08/09/2025 4:27 PM EST8 btJcxvx9408/09/2025 4:53 AM EST8 cgBwqer5108/08/2025 7:41 PM EST8 mg ondansetron ODT (ZOFRAN ODT) disintegrating tablet 8 mg 8 mg, oral, Once, On 08/05/25 at 1745, For 1 dose Given08/05/2025 5:46 PM EST8 mg ondansetron ODT (ZOFRAN ODT) disintegrating tablet 8 mg 8 mg, oral, Every 8 hours PRN, nausea, vomiting, Starting on 08/05/25 at 1940 Given08/06/2025 3:43 AM EST8 mg oxyCODONE (ROXICODONE) immediate release tablet 10 mg 10 mg, oral, Every 6 hours PRN, severe pain - pain scale 7-10, Starting on 08/04/25 at 1033, Look-alike/sound-alike medication - verify indication for use. Immediate release. Given08/05/2025 4:45 AM EST10 jiLbnak0508/04/2025 3:36 PM EST10 mg oxyCODONE (ROXICODONE) immediate release tablet 10 mg 10 mg, oral, Every 6 hours PRN, severe pain - pain scale 7-10, Starting on Wed08/07/25 at 0225, Look-alike/sound-alike medication - verify indication for use. Immediate release. Given08/09/2025 2:09 PM EST10 mg oxyCODONE (ROXICODONE) immediate release tablet 5 mg 5 mg, oral, Every 6 hours PRN, severe pain - pain scale 7-10, Starting on Wed08/04/25 at 0618, Look-alike/sound-alike medication - verify indication for use. Immediate release. Given08/07/2025 2:14 AM EST5 mg oxyCODONE (ROXICODONE) immediate release tablet 5 mg 5 mg, oral, Every 6 hours PRN, severe pain - pain scale 7-10, Starting on Wed08/04/25 at 1033, Look-alike/sound-alike medication - verify indication for use. Immediate release. Given08/05/2025 11:01 AM EST5 mg oxyCODONE (ROXICODONE) immediate release tablet 5 mg 5 mg, oral, Every 6 hours PRN, moderate pain - pain scale 4-6, Starting on Wed08/07/25 at 0225, Look-alike/sound-alike medication - verify indication for use. Immediate release. Given08/09/2025 4:53 AM EST5 cnBkyqn8208/08/2025 7:41 PM EST5 mtMixjd3608/08/2025 2:49 PM EST5 mg potassium chloride (K-TAB,KLOR-CON) CR tablet 30-50 mEq 30-50 mEq, oral, As needed, Potassium Supplementation, Starting on Wed08/05/25 at 2108, Progress tooral potassium replacement when patient tolerating oral intake. If dose administered, recheck potassium level 4 hours after last dose. For potassium level 3.4 to 3.8 mmol/L and GFR 30 mL/min or greater=30 mEq. For potassium level 3.1 to 3.3 mmol/L and GFR 30 mL/min or greater=40 mEq. For potassium level 3 mmol/L or less and GFR 30 mL/min or greater=50 mEq. Do not crush or chew. potassium chloride (KAYCIEL) 20 mEq/15 mL solution 30-50 mEq 30-50 mEq, oral, As needed, Potassium Supplementation, Starting on Wed08/05/25 at 2108, Progress tooral potassium replacement when patient tolerating oral intake. If dose administered, recheck potassium level 4 hours after last dose. For potassium level 3.4 to 3.8 mmol/L and GFR 30 mL/min or greater=30 mEq. For potassium level 3.1 to 3.3 mmol/L and GFR 30 mL/min or greater=40 mEq. For potassium level 3 mmol/L or less and GFR 30 mL/min or greater=50 mEq. Must dilute before use - Mix in 3-8 ounces of water or juice before administration When administering in feeding tube, flush before and after per policy and monitor potassium levels potassium chloride IVPB 10 mEq/100 mL in water (0.1 mEq/mL premix) 10 mEq, intravenous, at 100 mL/hr, Administer over 60 Minutes, As needed, POTASSIUM REPLACEMENT, Starting on Wed08/05/25 at 2108, IV if unable to use oral/enteral with the current dosing strategies Potassium level 3 mmol/L or less administer Potassium Chloride 50 mEq Potassium level 3.1 to 3.3 mmol/L administer Potassium Chloride 40 mEq Potassium level 3.4 to 3.8 mmol/L administer Potassium Chloride 30 mEq Use central line when applicable. Recheck potassium level 1 hour after total IVPB infusion complete, With each potassium result continue the replacement orders as needed VESICANT (YELLOW) Infuse each 10 mEq over a minimum of 1 hour. New Bag08/06/2025 2:09 AM EST10 oCi124 mL/hrNew Bag08/06/2025 12:57 AM EST10 mEq 100 mL/hrNew Bag08/05/2025 11:45 PM EST10 [id number] mL/hr prochlorperazine (COMPAZINE) injection 5 mg 5 mg, intravenous, Every 8 hours PRN, nausea, vomiting, Starting on Wed08/05/25 at 2106, When administered via IV Push, do not exceed 5 mg per minute Given08/07/2025 2:14 AM EST5 myCbpte9008/06/2025 7:59 AM EST5 etBhach8808/05/2025 9:15 PM EST5 mg senna (SENOKOT) tablet 8.6 mg 8.6 mg, oral, 2 times daily, First dose on Wed08/08/25 at 0900 08/09/2025 9:43 AM EST8.6 exBpsuw4408/08/2025 9:27 PM EST8.6 mgGiven 08/08/2025 9:31 AM EST8.6 mg simethicone (MYLICON) chewable tablet 80 mg 80 mg, oral, 4 times daily PRN, flatulence, Starting on Wed08/05/25 at 1939 08/08/2025 12:43 PM EST80 rwSxvhl1508/05/2025 8:55 PM EST80 mg sodium chloride 0.9 % flush 10 mL 10 mL, intravenous, As needed, line care, Starting on Wed08/05/25 at 1158 08/05/2025 12:14 PM EST10 mL sodium chloride 0.9 % flush 3 mL 3 mL, intravenous, As needed, line care, before and after each intermittent use, Starting on Wed08/04/25 at 0336 sodium chloride 0.9 % flush 3 mL 3 mL, intravenous, Every 12 hours scheduled, First dose on Wed08/04/25 at 0900 08/09/2025 9:47 AM EST3 oKLknuc6808/08/2025 9:27 PM EST3 pYIiuid5708/08/2025 9:31 AM EST3 mL sodium chloride 0.9 % flush bag 25 mL, intravenous, at 100 mL/hr, Administer over 15 Minutes, As needed, line care, line care afterIVPB administration, Starting on Wed08/04/25 at 0336 sodium chloride 0.9 % flush bag 25 mL, intravenous, at 100 mL/hr, Administer over 15 Minutes, As needed, line care, line care afterIVPB administration, Starting on Wed08/04/25 at 1031 sodium chloride 0.9 % radiology injection 80 mL, intravenous, Once in imaging, pre/post contrast, Starting on 08/05/25 at 1158, For 1 dose Given08/05/2025 12:14 PM EST80 mL timolol (TIMOPTIC) 0.5 % ophthalmic solution 1 drop 1 drop, both eyes, 2 times daily, First dose on 08/04/25 at 1400 Given08/09/2025 9:47 AM EST1 eebfLwiyt34/12/2025 9:28 PM EST1 dropGiven 08/08/2025 9:31 AM EST1 dropdocumented in this encounter Active and Recently Administered Medications Times are shown in EST.Medication Order/ acetaminophen (TYLENOL EXTRA STRENGTH) tablet 1,000 mg (COMPLETED) 1,000 mg, oral, Once, On Wed08/07/25 at 1200, For 1 dose, Pre-op, 30 minutes prior to surgery * 1219 (Given - Provider: Gayatri Stewart RN) amisulpride (BARHEMSYS) injection 10 mg (COMPLETED) 10 mg, intravenous, Once, On Wed08/07/25 at 1245, For 1 dose, Pre-op, Administer over 2 minutes. Flush line before and after administration with D5W or NS. * 1255 (Given - Provider: Gayatri Stewart RN) ceFAZolin (ANCEF) IVPB 2000 mg/50 mL in iso-osmotic dextrose (40 mg/mL premix) (COMPLETED) 2,000 mg, intravenous, at 100 mL/hr, Administer over 30 Minutes, Once, On Wed08/07/25 at 1200, For1 dose, Pre-op, Initiate within 1 hour of incision Look-alike/sound-alike medication - verify indication for use., Indication: Surgical prophylaxis * 1345 (Given - Provider: EDIN Inman) celecoxib (CeleBREX) capsule 400 mg (COMPLETED) 400 mg, oral, Once, On Wed08/07/25 at 1200, For 1 dose, Pre-op, Administer 1 hour prior to surgeryLook-alike/sound-alike medication - verify indication for use. * 1218 (Given - Provider: Gayatri Stewart RN) famotidine (PEPCID) tablet 20 mg 20 mg, oral, 2 times daily, First dose on [place] 08/09/25 at 1030 * 1205 (Given - Provider: Akiko Torres, JORDYN) gabapentin (NEURONTIN) tablet 600 mg (COMPLETED) 600 mg, oral, Once, On Wed08/07/25 at 1200, For 1 dose, Pre-op, Administer 1 hour prior to surgeryLook-alike/sound-alike medication - verify indication for use. * 1218 (Given - Provider: Gayatri Stewart, JORDYN) lactated ringers bolus (COMPLETED) 500 mL, intravenous, at 968 mL/hr, Administer over 31 Minutes, Once, On Wed08/08/25 at 1130, For 1dose * 1208 (New Bag - Provider: Amber Parker RN) * 1239 (Stop Bag - Provider: Amber Parker RN) * 1552 (Stop Bag - Provider: Amber Parker RN) magnesium hydroxide (MILK OF MAGNESIA) suspension 30 mL 30 mL, oral, Daily, First dose on Wed08/08/25 at 0900, Shake well. * 0900 (Not Given - Provider: Amber Parker RN - Reason: Patient/family refused) * 0900 (Not Given - Provider: Akiko Torres RN - Reason: Patient/family refused) senna (SENOKOT) tablet 8.6 mg 8.6 mg, oral, 2 times daily, First dose on Wed08/08/25 at 0900 * 0931 (Given - Provider: Amber Parker RN) * 212 (Given - Provider: Joana Ibarra RN) * 0943 (Given - Provider: Akiko Torres RN) sodium chloride 0.9 % flush 3 mL 3 mL, intravenous, Every 12 hours scheduled, First dose on Wed08/04/25 at 0900 * 0824 (Given - Provider: Amber Parker RN) * 1134 (MAR Hold - Provider: User Epic - Reason: Patient not available) * 1744 (MAR Unhold - Provider: User Epic) * 2013 (Given - Provider: Joana Ibarra RN) * 0931 (Given - Provider: Amber Parker RN) * 212 (Given - Provider: Joana Ibarra RN) * 0947 (Given - Provider: Akiko Torres RN) timolol (TIMOPTIC) 0.5 % ophthalmic solution 1 drop 1 drop, both eyes, 2 times daily, First dose on 08/04/25 at 1400 * 0824 (Given - Provider: Amber Parker RN) * 1134 (NOV Hold - Provider: User Epic - Reason: Patient not available) * 174 (NOV Unhold - Provider: User Epic) * 2012 (Given - Provider: Joana Ibarra RN) * 0931 (Given - Provider: Amber Parker RN) * 2127 (Given - Provider: Joana Ibarra RN) * 0947 (Given - Provider: Akiko Torres, JORDYN) Medication Order// lactated ringers infusion (CANCELED) 50 mL/hr, intravenous, Continuous, Starting on Wed08/07/25 at 1245, Pre-op, If fluid restriction is not indicated, infuse at a rate up to 5 mL/kg/hr not to exceed the total replacement volume (2 ml/kg/hr) from the time NPO status was initiated. * 1255 (New Bag - Provider: Gayatri Stewart RN) * 1627 (Stop Bag - Provider: Amber Parker RN - Comment: [Order ends at this time. Document the following action when infusion is complete: Stop Bag]) Medication Order// acetaminophen (TYLENOL EXTRA STRENGTH) tablet 1,000 mg 1,000 mg, oral, Every 6 hours PRN, moderate pain - pain scale 4-6, mild pain - pain scale 1-3, temperature greater than 38 C, headaches, Starting on Wed08/05/25 at 1621 * 1134 (NOV Hold - Provider: User Epic - Reason: Patient not available) * 174 (NOV Unhold - Provider: User Epic) * 0944 (Given - Provider: Akiko Torres, JORDYN) bisacodyL (DULCOLAX) suppository 10 mg 10 mg, rectal, Daily PRN, constipation, Starting on Wed08/08/25 at 0702, Look-alike/sound-alike medication - verify indication for use. dextrose (GLUTOSE) 40 % gel 15 g 15 g, oral, As needed, low blood sugar, blood glucose less than 70 mg/dL, Starting on 08/04/25 at 0336, If patient conscious and taking PO. If blood glucose is not greater than 70 mg/dL after initial treatment, repeat treatment. * 1134 (BANNER Hold - Provider: User Epic - Reason: Patient not available) * 1744 (BANNER Unhold - Provider: User Epic) dextrose (GLUTOSE) 40 % gel 15 g 15 g, oral, As needed, low blood sugar, blood glucose less than 70 mg/dL, Starting on 08/04/25 at 1031, If patient conscious and taking PO. If blood glucose is not greater than 70 mg/dL after initial treatment, repeat treatment. * 1134 (BANNER Hold - Provider: User Epic - Reason: Patient not available) * 1744 (BANNER Unhold - Provider: User Epic) dextrose 5 % (D5W) infusion 100 mL/hr, intravenous, Continuous PRN, blood glucose less than 70 mg/dL, Starting on 08/04/25 at 0336, For 365 days, Use immediately following dextrose 50% or glucagon treatment for patients who are unconscious or NPO. Contact prescriber for additional orders. If blood glucose is not greater than 70 mg/dL after initial treatment, repeat treatment. * 1134 (BANNER Hold - Provider: User Epic - Reason: Patient not available) * 1744 (BANNER Unhold - Provider: User Epic) dextrose 5 % (D5W) infusion 100 mL/hr, intravenous, Continuous PRN, blood glucose less than 70 mg/dL, Starting on 08/04/25 at 1031, For 365 days, Use immediately following dextrose 50% or glucagon treatment for patients who are unconscious or NPO. Contact prescriber for additional orders. If blood glucose is not greater than 70 mg/dL after initial treatment, repeat treatment. * 1134 (BANNER Hold - Provider: User Epic - Reason: Patient not available) * 1744 (BANNER Unhold - Provider: User Epic) dextrose 50 % in water (D50W) 50% solution 25 mL 25 mL, intravenous, As needed, low blood sugar, blood glucose less than 70 mg/dL and unconscious orNPO with IV access, Starting on 08/04/25 at 0336, Push over 1-3 minutes STAT. If conscious and not NPO, immediately follow with meal tray or high protein (7 grams) snack if tray not available. If NPO, initiate 5% dextrose in water at 100 mL/hr and contact prescriber for additional orders. If blood glucose is not greater than 70 mg/dL after initial treatment, repeat treatment. VESICANT (RED) Warning: HYPERTONIC solution. * 1134 (BANNER Hold - Provider: User Epic - Reason: Patient not available) * 1744 (BANNER Unhold - Provider: User Epic) dextrose 50 % in water (D50W) 50% solution 25 mL 25 mL, intravenous, As needed, low blood sugar, blood glucose less than 70 mg/dL and unconscious orNPO with IV access, Starting on 08/04/25 at 1031, Push over 1-3 minutes STAT. If conscious and not NPO, immediately follow with meal tray or high protein (7 grams) snack if tray not available. If NPO, initiate 5% dextrose in water at 100 mL/hr and contact prescriber for additional orders. If blood glucose is not greater than 70 mg/dL after initial treatment, repeat treatment. VESICANT (RED) Warning: HYPERTONIC solution. * 1134 (BANNER Hold - Provider: User Epic - Reason: Patient not available) * 1744 (BANNER Unhold - Provider: User Epic) fentaNYL (SUBLIMAZE) injection 50 mcg (CANCELED) 50 mcg, intravenous, Every 5 min PRN, Pain Scale 6-10, Starting on Wed08/07/25 at 1607, PACU (only), Up to a maximum dose of 150 mcg. Look-alike/sound-alike medication - verify indication for use. * 1709 (Given - Provider: Juan Carlos Kim RN) glucagon HCL injection 1 mg 1 mg, intramuscular, As needed, low blood sugar, blood glucose less than 70 mg/dL and unconscious or NPO without IV access., Starting on 08/04/25 at 0336, If conscious and not NPO, immediately follow with meal tray or high protein (7Grams) snack if tray not available. If NPO, initiate IV 5% Dextr ose/Water at 100 mL/hr and contact prescriber for additional orders. If blood glucose is not greater than 70 mg/dL after initial treatment, repeat treatment. * 1134 (BANNER Hold - Provider: User Epic - Reason: Patient not available) * 1744 (BANNER Unhold - Provider: User Epic) glucagon HCL injection 1 mg 1 mg, intramuscular, As needed, low blood sugar, blood glucose less than 70 mg/dL and unconscious or NPO without IV access., Starting on 08/04/25 at 1031, If conscious and not NPO, immediately follow with meal tray or high protein (7Grams) snack if tray not available. If NPO, initiate IV 5% Dextr ose/Water at 100 mL/hr and contact prescriber for additional orders. If blood glucose is not greater than 70 mg/dL after initial treatment, repeat treatment. * 1134 (MAR Hold - Provider: User Epic - Reason: Patient not available) * 1744 (BANNER Unhold - Provider: User Epic) HYDROmorphone (DILAUDID) injection 0.5 mg 0.5 mg, intravenous, Every 4 hours PRN, severe pain - pain scale 7-10, breakthrough pain, Starting on 08/04/25 at 1033, If IV push, administer over over 2 to 3 minutes. Look-alike/sound-alike medication - verify indication for use. * 1134 (MAR Hold - Provider: User Epic - Reason: Patient not available) * 1744 (BANNER Unhold - Provider: User Epic) HYDROmorphone (PF) (DILAUDID) injection 0.5 mg 0.5 mg, intravenous, Every 4 hours PRN, severe pain - pain scale 7-10, breakthrough, give chava first, Starting on 08/04/25 at 0618, If IV push, administer over over 2 to 3 minutes. Look-alike/sound-alike medication - verify indication for use. * 1134 (MAR Hold - Provider: User Epic - Reason: Patient not available) * 1744 (BANNER Unhold - Provider: User Epic) lidocaine PF (XYLOCAINE) 10 mg/mL (1 %) injection 1 mg (CANCELED) 1 mg (0.1 mL), intradermal, As needed, times 1 per IV attempt for IV start pain control, Starting on Wed08/07/25 at 1238, Pre-op * 1340 (Given - Provider: EDIN Inman) lidocaine-EPINEPHrine (XYLOCAINE W/EPI) 1 %-[id number] injection (CANCELED) As needed, Starting on Wed08/07/25 at 1611, Intra-op * 1611 (Given - Provider: Dennis Monson MD) ondansetron (PF) (ZOFRAN) injection 8 mg 8 mg, intravenous, Every 8 hours PRN, nausea, vomiting, Starting on 08/06/25 at 1145, Intravenous administration preferred to be given over 2-5 minutes., Intravenous Specific Administration: IV Push * 0837 (Given - Provider: Amber Parker RN) * 1134 (MAR Hold - Provider: User Epic - Reason: Patient not available) * 1744 (MAR Unhold - Provider: User Epic) * 1941 (Given - Provider: Joana Ibarra RN) * 0453 (Given - Provider: Joana Ibarra RN) * 1627 (Given - Provider: Akiko Torres RN) oxyCODONE (ROXICODONE) immediate release tablet 10 mg(Linked Group 1) 10 mg, oral, Every 6 hours PRN, severe pain - pain scale 7-10, Starting on Wed08/07/25 at 0225, Look-alike/sound-alike medication - verify indication for use. Immediate release. * 0829 (See Alternative - Provider: Amber Parker RN) * 1134 (MAR Hold - Provider: User Epic - Reason: Patient not available) * 1744 (MAR Unhold - Provider: User Epic) * 1755 (See Alternative - Provider: Amber Parker RN) * 0431 (See Alternative - Provider: Joana Ibarra RN) * 1449 (See Alternative - Provider: Amber Parker RN) * 1941 (See Alternative - Provider: Joana Ibarra RN) * 0453 (See Alternative - Provider: Joana Ibarra RN) * 1409 (Given - Provider: Akiko Torres RN) oxyCODONE (ROXICODONE) immediate release tablet 5 mg (CANCELED) 5 mg, oral, Every 6 hours PRN, severe pain - pain scale 7-10, Starting on Wed08/04/25 at 0618, Look-alike/sound-alike medication - verify indication for use. Immediate release. * 0214 (Given - Provider: Akiko Weller RN) oxyCODONE (ROXICODONE) immediate release tablet 5 mg(Linked Group 1) 5 mg, oral, Every 6 hours PRN, moderate pain - pain scale 4-6, Starting on Wed08/07/25 at 0225, Look-alike/sound-alike medication - verify indication for use. Immediate release. * 0829 (Given - Provider: Amber Parker, JORDYN) * 1134 (NOV Hold - Provider: User Epic - Reason: Patient not available) * 1744 (MAR Unhold - Provider: User Epic) * 1755 (Given - Provider: Amber Parker, RN) * 0431 (Given - Provider: Joana Ibarra, RN) * 1449 (Given - Provider: Amber Parker RN) * 1941 (Given - Provider: Joana Ibarra, RN) * 0453 (Given - Provider: Joana Ibarra, RN) * 1409 (See Alternative - Provider: Akiko Torres RN) potassium chloride (K-TAB,KLOR-CON) CR tablet 30-50 mEq(Linked Group 2) 30-50 mEq, oral, As needed, Potassium Supplementation, Starting on 08/05/25 at 2108, Progress tooral potassium replacement when patient tolerating oral intake. If dose administered, recheck potassium level 4 hours after last dose. For potassium level 3.4 to 3.8 mmol/L and GFR 30 mL/min or greater=30 mEq. For potassium level 3.1 to 3.3 mmol/L and GFR 30 mL/min or greater=40 mEq. For potassium level 3 mmol/L or less and GFR 30 mL/min or greater=50 mEq. Do not crush or chew. * 1134 (NOV Hold - Provider: User Epic - Reason: Patient not available) * 1744 (BANNER Unhold - Provider: User Epic) potassium chloride (KAYCIEL) 20 mEq/15 mL solution 30-50 mEq(Linked Group 2) 30-50 mEq, oral, As needed, Potassium Supplementation, Starting on 08/05/25 at 2108, Progress tooral potassium replacement when patient tolerating oral intake. If dose administered, recheck potassium level 4 hours after last dose. For potassium level 3.4 to 3.8 mmol/L and GFR 30 mL/min or greater=30 mEq. For potassium level 3.1 to 3.3 mmol/L and GFR 30 mL/min or greater=40 mEq. For potassium level 3 mmol/L or less and GFR 30 mL/min or greater=50 mEq. Must dilute before use - Mix in 3-8 ounces of water or juice before administration When administering in feeding tube, flush before and after per policy and monitor potassium levels * 1134 (BANNER Hold - Provider: User Epic - Reason: Patient not available) * 1744 (BANNER Unhold - Provider: User Epic) potassium chloride IVPB 10 mEq/100 mL in water (0.1 mEq/mL premix)(Linked Group 2) 10 mEq, intravenous, at 100 mL/hr, Administer over 60 Minutes, As needed, POTASSIUM REPLACEMENT, Starting on 08/05/25 at 2108, IV if unable to use oral/enteral with the current dosing strategies Potassium level 3 mmol/L or less administer Potassium Chloride 50 mEq Potassium level 3.1 to 3.3 mmol/L administer Potassium Chloride 40 mEq Potassium level 3.4 to 3.8 mmol/L administer Potassium Chloride 30 mEq Use central line when applicable. Recheck potassium level 1 hour after total IVPB infusion complete, With each potassium result continue the replacement orders as needed VESICANT (YELLOW) Infuse each 10 mEq over a minimum of 1 hour. * 1134 (BANNER Hold - Provider: User Epic - Reason: Patient not available) * 1744 (BANNER Unhold - Provider: User Epic) prochlorperazine (COMPAZINE) injection 5 mg 5 mg, intravenous, Every 8 hours PRN, nausea, vomiting, Starting on 08/05/25 at 2106, When administered via IV Push, do not exceed 5 mg per minute * 0214 (Given - Provider: Akiko Weller RN) * 1134 (BANNER Hold - Provider: User Epic - Reason: Patient not available) * 1744 (BANNER Unhold - Provider: User Epic) simethicone (MYLICON) chewable tablet 80 mg 80 mg, oral, 4 times daily PRN, flatulence, Starting on 08/05/25 at 1939 * 1134 (BANNER Hold - Provider: User Epic - Reason: Patient not available) * 1744 (BANNER Unhold - Provider: User Epic) * 1243 (Given - Provider: Amber Parker RN) sodium chloride 0.9 % flush 10 mL 10 mL, intravenous, As needed, line care, Starting on 08/05/25 at 1158 * 1134 (BANNER Hold - Provider: User Epic - Reason: Patient not available) * 1744 (BANNER Unhold - Provider: User Epic) sodium chloride 0.9 % flush 3 mL 3 mL, intravenous, As needed, line care, before and after each intermittent use, Starting on 08/04/25 at 0336 * 1134 (BANNER Hold - Provider: User Epic - Reason: Patient not available) * 1744 (BANNER Unhold - Provider: User Epic) sodium chloride 0.9 % flush bag 25 mL, intravenous, at 100 mL/hr, Administer over 15 Minutes, As needed, line care, line care afterIVPB administration, Starting on 08/04/25 at 0336 * 1134 (BANNER Hold - Provider: User Epic - Reason: Patient not available) * 1744 (BANNER Unhold - Provider: User Epic) sodium chloride 0.9 % flush bag 25 mL, intravenous, at 100 mL/hr, Administer over 15 Minutes, As needed, line care, line care afterIVPB administration, Starting on 08/04/25 at 1031 * 1134 (BANNER Hold - Provider: User Epic - Reason: Patient not available) * 1744 (BANNER Unhold - Provider: User Epic) Order Group 1: oxyCODONE (ROXICODONE) immediate release tablet 10 mgJump to med 10 mg, oral, Every 6 hours PRN, severe pain - pain scale 7-10, Starting on Wed08/07/25 at 0225, Look-alike/sound-alike medication - verify indication for use. Immediate release. Or oxyCODONE (ROXICODONE) immediate release tablet 5 mgJump to med 5 mg, oral, Every 6 hours PRN, moderate pain - pain scale 4-6, Starting on Wed08/07/25 at 0225, Look-alike/sound-alike medication - verify indication for use. Immediate release. Group 2: potassium chloride (K-TAB,KLOR-CON) CR tablet 30-50 mEqJump to med 30-50 mEq, oral, As needed, Potassium Supplementation, Starting on Wed08/05/25 at 2108, Progress tooral potassium replacement when patient tolerating oral intake. If dose administered, recheck potassium level 4 hours after last dose. For potassium level 3.4 to 3.8 mmol/L and GFR 30 mL/min or greater=30 mEq. For potassium level 3.1 to 3.3 mmol/L and GFR 30 mL/min or greater=40 mEq. For potassium level 3 mmol/L or less and GFR 30 mL/min or greater=50 mEq. Do not crush or chew. Or potassium chloride (KAYCIEL) 20 mEq/15 mL solution 30-50 mEqJump to med 30-50 mEq, oral, As needed, Potassium Supplementation, Starting on 08/05/25 at 2108, Progress tooral potassium replacement when patient tolerating oral intake. If dose administered, recheck potassium level 4 hours after last dose. For potassium level 3.4 to 3.8 mmol/L and GFR 30 mL/min or greater=30 mEq. For potassium level 3.1 to 3.3 mmol/L and GFR 30 mL/min or greater=40 mEq. For potassium level 3 mmol/L or less and GFR 30 mL/min or greater=50 mEq. Must dilute before use - Mix in 3-8 ounces of water or juice before administration When administering in feeding tube, flush before and after per policy and monitor potassium levels Or potassium chloride IVPB 10 mEq/100 mL in water (0.1 mEq/mL premix)Jump to med 10 mEq, intravenous, at 100 mL/hr, Administer over 60 Minutes, As needed, POTASSIUM REPLACEMENT, Starting on 08/05/25 at 2108, IV if unable to use oral/enteral with the current dosing strategies Potassium level 3 mmol/L or less administer Potassium Chloride 50 mEq Potassium level 3.1 to 3.3 mmol/L administer Potassium Chloride 40 mEq Potassium level 3.4 to 3.8 mmol/L administer Potassium Chloride 30 mEq Use central line when applicable. Recheck potassium level 1 hour after total IVPB infusion complete, With each potassium result continue the replacement orders as needed VESICANT (YELLOW) Infuse each 10 mEq over a minimum of 1 hour. documented in this encounter Additional Health Concerns AssessmentNoted TimePHQ-9 Depression Total Score: 3:45 PM EST documented as of this encounter Care Teams Team MemberRelationshipSpecialtyStart DateEnd Date Ann Marie Sidhu MD [address] [place] [address] PCP - GeneralFamily Qxpqtraa98/9/25documented as of this encounter
--- OUTSIDE RECORDS SUMMARY | 2025-08-16 15:00 | XMS_ITS | Encounter Summary ---
Author Organization [facility] tem Address [id number] [address] [place] [address] Care Team Providers Care Director Of Enrollment Name Role Phone Bin Sidhu MD Primary Care Provider [phone] Encounter Details DateTypeDepartmentCare Team (Latest Contact Info)Wklkzqbhana91/20/2025 3:00 PM ESTProcedure visit [facility]mit [address] [place] [address] Preop examination (Primary Dx); Anemia, unspecified type Social History Tobacco UseTypesPacks/DayYears UsedDateSmoking Tobacco: NeverSmokeless Tobacco: NeverAlcohol UseStandard Drinks/WeekCommentsNever0 (1 standard drink = 0.6 oz pure alcohol)PHQ-2AnswerDate RecordedTotal Cqcqb46310/04/2024UDIT-CAnswerDate RecordedQ1: How often do you have a [...] ValueDate RecordedSex Assigned at BirthNot on fileLegal FcoYmdwfz28/08/2025 12:05 AM ESTGender IdentityNot on fileSexual OrientationNot on filedocumented as of this encounter Last Filed Vital Signs Vital SignReadingTime TakenCommentsBlood Pressure--Pulse--Temperature-- Respiratory Rate--Oxygen Saturation--Inhaled Oxygen Concentration--Knxece05.3 kg (155 lb)08/16/2025 3:27 PM HSIOeedem279.5 cm (5' 2 )08/16/2025 3:27 PM ESTBody [...] in at the main lobby of the [facility]- registration desk is straight ahead as soon as you walk in. Tell them you are here for surgery. 2. If you have a Living Will/Durable Power of Call Specialist for Health Care that is not on [...] after you have bathed. 5. NO nail north korean/acrylic on at least one finger. If you are having a hand, wrist or foot surgery then all nail north korean and artificial/acrylic nails must be removed from [...] please call the Preadmission Testing office at [phone], Mon.-Fri. 7 a.m.-3 p.m. Leave a voicemail [...] in at the main lobby of the [facility]- registration desk is straight ahead as soon as you walk in. Tell them you are here for surgery. 2. If you have a Living Will/Durable Power of Call Specialist for Health Care that is not on [...] after you have bathed. 5. NO nail north korean/acrylic on at least one finger. If you are having a hand, wrist or foot surgery then all nail north korean and artificial/acrylic nails must be removed from [...] please call the Preadmission Testing office at [phone], Mon.-Fri. 7 a.m.-3 p.m. Leave a voicemail [...] Plan of Treatment DateTypeDepartmentCare Team (Latest Contact Info)Xlkxfhojnwl94/01/2025 3:30 PM ESTTelemedicine [facility], A Department of [address] [place] [address] Annita Patton, HAND COPER-GRAPHIC DESIGN TEACHER [address] [place] [address], [address] [place] [address] 08/30/2025 10:30 AM ESTInfusion [facility]ola [facility] - Medical Oncology [address] [place] [phone] 08/31/2025 8:30 AM ESTInfusion Paola [facility]ington [facility] - Medical Oncology [address] [place] [phone] 09/10/2025 1:30 PM ESTOffice Visit [facility], A Department of [address] [place] [phone] Annita Patton, HAND COPER[address], [address] [place] [address] 09/25/2025 10:00 AM ESTInfusion [facility]ola [facility] - Medical Oncology [address] [place] [address], [place] [phone] 09/26/2025 8:00 AM ESTTelemedicine [facility], A Department of [address] [place] [address] Annita Patton, HAND COPER[address], [address] [place] [address] 09/26/2025 8:30 AM ESTInfusion Paola Ellington [facility] - Medical Oncology [address] [place] [phone] documented as of this encounter Goals GoalPatient Goal TypeAssociated ProblemsRecent ProgressPatient-Stated?Author return home Milagros Escobedo RN Note: Evaluation of progress towards goal: patient plans to return home with family support Autogenerated Goal Care PlanAutogenerated ProblemNoPotts, Elizabethdocumented as of this encounter Results * (ABNORMAL) Basic Metabolic Panel (08/16/2025 3:52 PM EST)ComponentValueRef RangeTest MethodAnalysis TimePerformed AtPathologist HxdiviusuIVDOER505153 - 146 mmol/L110/16/2024 4:17 PM ESTPROMEDICA COMMUNITY HOSPITAL OF THE MONTEREY PENINSULAPOTASSIUM 2.6(LL)3.5 - 5.0 mmol/L110/16/2024 4:17 PM ESTW[facility]IN CAMPUSCHLORIDE10398 - 109 mmol/L110/16/2024 4:17 PM ESTW[facility]IN CAMPUSCARBON UWXWYNJ9976 - 32 mmol/L110/16/2024 4:17 PM ESTWAYNE [facility]ALTHC[facility] MAIN CAMPUSANION CFZ566 - 15 mmol/L110/16/2024 4:17 PM EST [facility] CAMPUSBLOOD UREA GCAOAIEV800 - 27 mg/dL08/16/2025 4:17 PM ESTWAYNE [facility]ALTHCARE MAIN CAMPUSCREATININE0.700.40 - 1.00 mg/dL 08/16/2025 4:17 PM [facility]ENTERComment:METHOD TRACEABLE TO IDMS QZTHCFQSDPTJJSS656(H)65 - 99 mg/dL08/16/2025 4:17 PM EST [facility] CAMPUSCALCIUM8.58.5 - 10.5 mg/dL08/16/2025 4:17 PM [facility] CENTEREGFR Non-Race Dependent>90>=60 ml/min/1.73sq.m110/16/2024 4:17 PM [facility] Comment: Reported eGFR is based on the CKD-EPI 2020 equation that does not use a race coefficient. Specimen (Source)Anatomical Location / LateralityCollection Method / Volume Collection TimeReceived TimeBloodVenous blood / UnknownVenipuncture / Unknown 08/16/2025 3:52 PM EST08/16/2025 3:52 PM EST Narrative Authorizing ProviderResult TypeResult StatusDaviquiana Angulo MDLAB BLOOD ORDERABLESFinal ResultPerforming OrganizationAddressCity/State/ZIP CodePhone Number [facility] [address] [place] [address], * (ABNORMAL) CBC auto differential (08/16/2025 3:52 PM EST)ComponentValueRef RangeTest MethodAnalysis TimePerformed AtPathologist NnyflkqynEVS63.6(H)4 - 11 10^9/L110/16/2024 4:45 PM ESTWAYNE [facility]ALTHCARE MAIN CAMPUSRBC Count4.06 3.8 - 5.2 10^12/L11/ 4:45 PM [facility] Udyggstmwo30.4(L)11.7 - 15.5 g/dL08/16/2025 4:45 PM [facility] CENTERHematocrit34.4(L)35 - 47 %08/16/2025 4:45 PM [facility]ENTERMCV8580 - 100 fL08/16/2025 4:45 PM [facility]ENTERMCH28.027 - 34 pg08/16/2025 4:45 PM [facility] CENTERMCHC33.032 - 36 g/dL08/16/2025 4:45 PM [facility] CENTERRDW16.6(H)11.5 - 15 %08/16/2025 4:45 PM [facility] CENTERPlatelet Lzifl101(H)150 - 450 10^9/L110/16/2024 4:45 PM [facility] CENTERMPV8.07 - 12 fL08/16/2025 4:45 PM EST [facility] CAMPUSBands %8%08/16/2025 4:45 PM [facility]ENTERComment:This is an appended report. These results have been appended to a previously preliminary verified report.Neutrophils %81 %08/16/2025 4:45 PM [facility]ENTERComment:This is an appended report. These results have been appended to a previously preliminary verified report.Lymphocytes %4%08/16/2025 4:45 PM [facility]ENTERComment:This is an appended report. These results have been appended to a previously preliminary verified report.Monocytes %7%08/16/2025 4:45 PM [facility]ENTERComment:This is an appended report. These results have been appended to a previously preliminary verified report.Neutrophils Absolute (M)27.3(H)1.5 - 6.6 10^9/L110/16/2024 4:45 PM EST [facility]USComment:This is an appended report. These results have been appended to a previously preliminary verified report. Lymphocytes Absolute1.21.0 - 3.5 10^9/L110/16/2024 4:45 PM ESTWAY[facility]ALTH[facility] MAIN CAMPUSComment:This is an appended report. These results have been appended to a previously preliminary verified report.Monocytes Absolute2.1(H) 0.0 - 0.9 10^9/L110/16/2024 4:45 PM [facility] Comment:This is an appended report. These results have been appended to a previously preliminary verified report.Polychromasia1+08/16/2025 4:45 PM EST [facility]AMPUSComment:This is an appended report. These results have been appended to a previously preliminary verified report. Elliptocytes1+08/16/2025 4:45 PM ESTW[facility] Comment:This is an appended report. These results have been appended to a previously preliminary verified report.Stomatocytes1+08/16/2025 4:45 PM EST [facility]USComment:This is an appended report. These results have been appended to a previously preliminary verified report. Differential TypeMANUAL RHAAMKPKYDWR21/20/2025 4:45 PM [facility]ENTERComment:This is an appended report. These results have been appended to a previously preliminary verified report.Specimen (Source) Anatomical Location / LateralityCollection Method / VolumeCollection Time Received TimeBloodVenous blood / UnknownVenipuncture / Xdxonet1108/16/2025 3:52 PM EST08/16/2025 3:52 PM EST Narrative Authorizing ProviderResult TypeResult StatusDaapollo Angulo MDLAB BLOOD ORDERABLESFinal ResultPerforming OrganizationAddressCity/State/ZIP CodePhone Number [facility] [address] [place] [address], documented in this encounter Visit Diagnoses Diagnosis Preop examination- Primary Unspecified pre-operative examination Anemia, unspecified type documented in this encounter Additional Health Concerns Active ProblemsNoted DateDiagnosed DateAutogenerated Depcydu53/14/2025Assessment Noted TimePHQ-9 Depression Total Score: 3:45 PM ESTdocumented as of this encounter Care Teams Team MemberRelationshipSpecialtyStart DateEnd Date Bin Sidhu MD [address] [place] [address] PCP - GeneralFamily Hsbiobls24/9/25documented as of this encounter
--- OUTSIDE RECORDS SUMMARY | 2025-08-20 23:59 | XMS_ITS | Continuity of Care Document ---
Author Organization [facility] Address [address] [place] [address]- Care Team Providers Care Machine Hostler Name Role Phone ANN MARIE RHODES MD Primary Care Physician [phone] Encounter 08/20/25 - 08/20/[address] [phone] [place], [place] [address] Discharge Disposition: Home Attending Physician: ANN MARIE RHODES MD Encounter Type: Historical Allergies, Adverse Reactions, Alerts SubstanceCriticalitySeverityReactionReaction SeverityStatusLatexUnable to assess criticalityUnknownActive Treatment Plan Future Appointments Medications acetaZOLAMIDE 250 mg oral tablet 0 [...] Total Allowed Fills: 1 Fills Dispensed: 0 Social History Social History TypeResponseTobaccoNever tobacco user Tobacco Use:. Sex FemaleSex RepresentationFemale (finding) Patient Care team information Care Team Personnel Name: ANN MARIE RHODES MD Position: [facility] Physician Acute/ED/Clinic/Care Member Role: Primary Care Physician Address: [address] [place] [id number] Telecom: Care Team Related Persons Name: ATUL CHATMAN Name: SYED GONZALEZIFFORD Insurance Providers Guarantor name: OTONIEL Lillie [employer] [facility] Information #: 1 Payer: MEDICARE Payer Identifier: CATHI Member Number: [id number] Group Number: [id number] Subscriber Identifier: [id number] Relationship to Subscriber: self Coverage Type: MEDICARE Coverage Verification Date: NA Telecom: [phone] Address: [facility] [place] [address] Health Plan Information #: 2 Payer: [employer] Payer Identifier: NA Member Number: [id number] Group Number: [id number] Subscriber Identifier: [id number] Relationship to Subscriber: spouse Coverage Type: PRIVATE HEALTH INSURANCE Coverage Verification Date: Telecom: Address: [address] [address] [place] [address]
--- OUTSIDE RECORDS SUMMARY | 2025-08-23 11:26 | XMS_ITS ---
Author Organization [employer] tem Address [id number] [address] [place] [address] Care Team Providers Care Machine Programmer Name Role Phone Bin Sidhu MD Primary Care Provider [phone] Active Problems ProblemNoted DateDiagnosed DateEndometrial cancer determined by uterine biopsy 08/08/2025Pelvic mass08/04/2025 Current Treatment and Therapy Plans Adult oncology/infusion center flush orders* Plan Start Date:08/08/2025 Plan Provider:RE Fay Linked Problems Endometrial cancer determine d by uterine biopsy [place] Treatment Medications No medications scheduled. Oncology hydration and supportive care* Plan Start Date:08/08/2025 Plan Provider:RE Fay Linked Problems Endometrial cancer determine d by uterine biopsy [place] Treatment Medications No medications scheduled. Oncology standing electrolyte replacement* Plan Start Date:08/08/2025 Plan Provider:RE Fay Linked Problems Endometrial cancer determine d by uterine biopsy [place] Treatment Medications No medications scheduled. OP ADVANCED ENDOMETRIAL PEMBROLIZUMAB / PACLItaxel / CARBOplatin X 6 CYCLES THEN PEMBROLIZUMAB ALONE* Plan Start Date:08/07/2025 Plan Provider:Rocio Alexander MD Linked Problems Endometrial cancer determine d by uterine biopsy [place] Treatment MedicationsCurrent Day (Day 1, Cycle 1 [...] found. Resolved Problems ProblemNoted DateDiagnosed DateResolved DateVaginal Vagina [id number]
--- OUTSIDE RECORDS SUMMARY | 2025-08-23 11:26 | XMS_ITS | Encounter Summary ---
Author Organization [employer] tem Address [id number] [address] [place] [address] Care Team Providers Care Casing Inspector Name Role Phone Bin Sidhu MD Primary Care Provider [phone] Encounter Details DateTypeDepartmentCare Team (Latest Contact Info)Gihkwdsojls89/20/2025Travel Social History Tobacco UseTypesPacks/DayYears UsedDateSmoking Tobacco: NeverSmokeless Tobacco: NeverAlcohol UseStandard Drinks/WeekCommentsNever0 (1 standard drink = 0.6 oz pure alcohol)PHQ-2AnswerDate RecordedTotal Hriqe79210/04/2024UDIT-CAnswerDate RecordedQ1: How often do you have a [...] ValueDate RecordedSex Assigned at BirthNot on fileLegal XwrXwqxfw51/08/2025 12:05 AM ESTGender IdentityNot on fileSexual OrientationNot on filedocumented as of this encounter Plan of Treatment DateTypeDepartmentCare Team (Latest Contact Info)Mzwbwvvozny92/01/2025 3:30 PM ESTTelemedicine [facility], A Department of [address] [place] [address] Annita Patton, REGRINDER-SUPERVISOR BELT AND LINK ASSEMBLY [address] [place] [address], [address] [place] [address] 08/30/2025 10:30 AM ESTInfusion [facility] - Medical Oncology [address] [place] [phone] 08/31/2025 8:30 AM ESTInfusion [facility]ola [facility] - Medical Oncology [address] [place] [phone] 09/10/2025 1:30 PM ESTOffice Visit [facility], A Department of [address] [place] [address] Annita Patton, REGRINDER-SUPERVISOR BELT AND LINK ASSEMBLY [address] [place] [address], [address] [place] [address] 09/25/2025 10:00 AM ESTInfusion [facility] - Medical Oncology [address] [place] [phone] 09/26/2025 8:00 AM ESTTelemedicine [facility]ne[facility] Oncology, A Department of [address] [place] [phone] Annita Patton, REGRINDER-SUPERVISOR BELT AND LINK ASSEMBLY [address] [facility], [address] [place] [address] 09/26/2025 8:30 AM ESTInfusion Paola [facility] - Medical Oncology [address] [place] [phone] documented as of this encounter Goals GoalPatient Goal TypeAssociated ProblemsRecent ProgressPatient-Stated?Author return home Milagros Escobedo RN Note: Evaluation of progress towards goal: patient plans to return home with family support Autogenerated Goal Care PlanAutogenerated ProblemNoPotts, Elizabethdocumented as of this encounter Visit Diagnoses Not on filedocumented in this encounter Additional Health Concerns Active ProblemsNoted DateDiagnosed DateAutogenerated Qtebisv2108/10/2025ssessment Noted TimePHQ-9 Depression Total Score: 3:45 PM ESTdocumented as of this encounter Care Teams Team MemberRelationshipSpecialtyStart DateEnd Date Bin Sidhu MD [address] [place] [id number] PCP - GeneralFamily Zxnoiaeg02/9/25documented as of this encounter
--- OUTSIDE RECORDS SUMMARY | 2025-08-23 11:27 | XMS_ITS | Encounter Summary ---
Author Organization [facility] tem Address [id number] [address] [place] [address] Care Team Providers Care Claims Support Specialist Name Role Phone Bin Sidhu MD Primary Care Provider [phone] Encounter Details DateTypeDepartmentCare Team (Latest Contact Info)Mshkmfmigcn75/21/2025Telephone [facility] Gynecology Oncology, A Department of [facility] [address] [facility] [address] [place] [address] Milagros Machado RN Social History Tobacco UseTypesPacks/DayYears UsedDateSmoking Tobacco: NeverSmokeless Tobacco: NeverAlcohol UseStandard Drinks/WeekCommentsNever0 (1 standard drink = 0.6 oz pure alcohol)PHQ-2AnswerDate RecordedTotal Pkasx97310/04/2024UDIT-CAnswerDate RecordedQ1: How often do you have a [...] ValueDate RecordedSex Assigned at BirthNot on fileLegal RoyQhhcio47/08/2025 12:05 AM ESTGender IdentityNot on fileSexual OrientationNot on filedocumented as of this encounter Miscellaneous Notes * Telephone Encounter - Milagros Machado RN - 08/17/2025 10:37 AM EST traffic warehouse supervisor with [facility] general surgery left [facility] Behavioral Health Technician attempted to return call, VM left stating office received VM and they could call iftheir were additional questions or concerns. Per notes, patient was admitted with dx of C. Diff. documented in this encounter Plan of Treatment DateTypeDepartmentCare Team (Latest Contact Info)Zyvnvyplvyu98/01/2025 3:30 PM ESTTelemedicine [facility], A Department of [address] [place] [address] Annita Patton, RECORDING ARTIST-MEDICAL AFFAIRS LEADER [address] [facility], [address] [place] [address] 08/30/2025 10:30 AM ESTInfusion [facility] - Medical Oncology [address] [place] [address], [place] [address] 08/31/2025 8:30 AM ESTInfusion Paola [facility]ington [facility] - Medical Oncology [address] [place] [address], [place] [address] 09/10/2025 1:30 PM ESTOffice Visit [facility], A Department of [address] [place] [phone] Annita Patton, RECORDING ARTIST-[address], [address] [place] [address] 09/25/2025 10:00 AM ESTInfusion Paola Ellington [facility] - Medical Oncology [address] [place] [address], [place] [address] 09/26/2025 8:00 AM ESTTelemedicine [facility], A Department of [address] [place] [phone] Annita Patton, RECORDING ARTIST-[address], [address] [place] [address] 09/26/2025 8:30 AM ESTInfusion Paola Ellington [facility] - Medical Oncology [address] [place] [phone] documented as of this encounter Goals GoalPatient Goal TypeAssociated ProblemsRecent ProgressPatient-Stated?Author return home Milagros Escobedo RN Note: Evaluation of progress towards goal: patient plans to return home with family support Autogenerated Goal Care PlanAutogenerated ProblemNoPotts, Elizabethdocumented as of this encounter Visit Diagnoses Not on filedocumented in this encounter Additional Health Concerns Active ProblemsNoted DateDiagnosed DateAutogenerated Tgneyur9108/10/2025ssessment Noted TimePHQ-9 Depression Total Score: 3:45 PM ESTdocumented as of this encounter Care Teams Team MemberRelationshipSpecialtyStart DateEnd Date Bin Sidhu MD [address] [place] [id number] PCP - GeneralFamily Ykvzinyj02/9/25documented as of this encounter
--- OUTSIDE RECORDS SUMMARY | 2025-08-23 11:27 | XMS_ITS | Clinical Summary ---
Author Organization [facility] Address [address] [place] [address] Care Team Providers Care Septic Tank Installer Name Role Phone Unavailable Primary Care Provider Unavailabl e Social History Tobacco UseTypesPacks/DayYears UsedDateSmoking Tobacco: Never Assessed CommentsUnknownSex and Gender InformationValueDate RecordedSex Assigned at Not on fileLegal HfbQaowlq10/15/2023 11:23 PM EDTGender IdentityNot on file Sexual OrientationNot on file Last Filed Vital Signs Vital SignReadingTime TakenCommentsBlood Pressure--Pulse--Temperature-- Respiratory Rate--Oxygen Saturation--Inhaled Oxygen Concentration--Iyzwik80.9 kg (143 lb)09/29/2021 12:00 PM MYEExfixi999.5 cm (5' 2 )09/29/2021 12:00 PM ESTBody Mass Index26.16009/29/2021 12:00 PM EST Plan of Treatment [place] [address] [place] [address]
--- OUTSIDE RECORDS SUMMARY | 2025-08-23 11:27 | XMS_ITS | Encounter Summary ---
Author Organization [facility] Sys [facility] Address [id number] [address] [place] [address] Care Team Providers Care Property Inspector Name Role Phone Bin Sidhu MD Primary Care Provider [phone] Encounter Details DateTypeDepartmentCare Team (Latest Contact Info)Ugvkbmmmrcr71/21/2025Telephone [facility] [address] [place] [phone] Regina Zarate RMA Social History Tobacco UseTypesPacks/DayYears UsedDateSmoking Tobacco: NeverSmokeless Tobacco: NeverAlcohol UseStandard Drinks/WeekCommentsNever0 (1 standard drink = 0.6 oz pure alcohol)PHQ-2AnswerDate RecordedTotal Enyzq84910/04/2024UDIT-CAnswerDate RecordedQ1: How often do you have a [...] ValueDate RecordedSex Assigned at BirthNot on fileLegal QfmWtxumi55/08/2025 12:05 AM ESTGender IdentityNot on fileSexual OrientationNot on filedocumented as of this encounter Miscellaneous Notes * Telephone Encounter - U[facility] Blanchard - 08/17/2025 9:02 AM EST 08/17/25 Zara from Gynecology Oncology returned my call. She stated she is going to call [facility] and get the records for the patient. The patient will probably be on antibiotics so I will inform Dr. aMckey when she would like to reschedule the port and if the patient will need to have complete the antibiotics before the port procedure. ULI Blanchard / chemical treatment operator 08/17/25 9:30 am I called [facility] [place] [phone] and spoke with Arline in oncology - I informed her of the information pertaining to Eunice's case. That Eunice went to the [facility] ER and admitted, she will be admitted for at least 3 days. I also told her I called & left a message for [facility] Oncology [phone]. to let them know the status of Eunice per the patient's request. Arline said she would also send a message to them, as well ULI Blanchard / chemical treatment operator 08/17/25 8:15 am I called Eunice on her cell phone - she was admitted to the [facility]. She stated she was told she will be there for at least 3 days. Her diagnosis right now is C-diff. I called Verito at [facility] and cancelled Eunice's port which was scheduled for 08/20/[address] Mackey. She also wanted meto call oncology to inform them. I told her I would. ULI Blanchard / chemical treatment operator 08/17/25 7:39 am This patient had several abnormal labs done in PAT yesterday, one with a critically low potassium of 2.6. She was instructed to go to the ER and stated she was going to [facility]. She was instructed to call your office today, if able, to inquire on proceeding with procedure on 08/20. Lillian Chauhan RN / [facility] documented in this encounter Plan of Treatment DateTypeDepartmentCare Team (Latest Contact Info)Pwusshcshou32/01/2025 3:30 PM ESTTelemedicine [facility], A Department of [address] [place] [address] Annita Patton, PLATER SUPERVISOR-CERTIFIED MAINTENANCE WELDER [address] [place] [address], [address] [place] [address] 08/30/2025 10:30 AM ESTInfusion [facility] - Medical Oncology [address] [place] [phone] 08/31/2025 8:30 AM ESTInfusion [facility] - Medical Oncology [address] [place] [phone] 09/10/2025 1:30 PM ESTOffice Visit [facility], A Department of [address] [place] [phone] Annita Patton, PLATER SUPERVISOR-CERTIFIED MAINTENANCE WELDER [address] [facility], [address] [place] [address] 09/25/2025 10:00 AM ESTInfusion [facility] - Medical Oncology [address] [place] [phone] 09/26/2025 8:00 AM ESTTelemedicine [facility], A Department of [address] [place] [phone] Annita Patton, PLATER SUPERVISOR[address], [address] [place] [address] 09/26/2025 8:30 AM ESTInfusion [facility] - Medical Oncology [address] [place] [phone] NameTypePriorityAssociated DiagnosesOrder ScheduleCBC auto differentialLab Routine Encounter for insertion of venous access port 1 Occurrences starting 08/21/2025 until 08/21/2026omprehensive metabolic panel LabRoutine Encounter for insertion of venous access port 1 Occurrences starting 08/21/2025 until 08/21/2026documented as of this encounter Goals GoalPatient Goal TypeAssociated ProblemsRecent ProgressPatient-Stated?Author return home Milagros Escobedo RN Note: Evaluation of progress towards goal: patient plans to return home with family support Autogenerated Goal Care PlanAutogenerated ProblemNoPotts, Elizabethdocumented as of this encounter Visit Diagnoses Diagnosis Encounter for insertion of venous access port- Primary documented in this encounter Additional Health Concerns Active ProblemsNoted DateDiagnosed DateAutogenerated Molnzvf46/14/2025Assessment Noted TimePHQ-9 Depression Total Score: 3:45 PM ESTdocumented as of this encounter Care Teams Team MemberRelationshipSpecialtyStart DateEnd Date Bin Sidhu MD [address] [place] [address] PCP - GeneralFamily Kpksffeg30/9/25documented as of this encounter
--- OUTSIDE RECORDS SUMMARY | 2025-08-23 11:27 | XMS_ITS | Clinical Summary ---
Author Organization [employer] s tem Address [facility] [place] [address] [place] [address] Care Team Providers Care Crematorium Operator Name Role Phone Bin Sidhu MD Primary Care Provider [phone] Allergies Active AllergyReactionsCriticalityNoted DcvlTaxohlblDtlKdvseymrxnCrd88/08/2025 LatexHives,Facial BpihbbewImmpmu44/08/2025 Medications MedicationSigDispense QuantityRefillsLast FilledStart DateEnd DateStatus dorzolamide [...] tablet Indications:Endometrial cancer determined by uterine biopsy ([facility])Take 2 tablets (8 mg) by mouth once daily on days 2, 3 and 4. 60 tablet 5Active ondansetron (ZOFRAN) 8 mg tablet Indications:Endometrial cancer determined by uterine biopsy ([facility])Starting on day 3, take 1 tablet by mouth twice daily as needed for nausea or vomiting. 60 tablet 5Active prochlorperazine (COMPAZINE) 10 mg tablet Indications:Endometrial cancer determined by uterine biopsy ([facility])Take 1 tablet by mouth every 6 hours as needed for nausea or vomiting on days 1 and 2. 60 tablet 5Active lidocaine-prilocaine (EMLA) cream Indications:Endometrial cancer determined by uterine biopsy ([facility]), Port-A-Cath in placeApply 1 Application topically as needed for pain (Port Access) for up to 12 days. Apply 2.5 grams to port site one hour prior to access prn. Cover with occlusive dressing as directed. 30 g tive ondansetron ODT (ZOFRAN ODT) 4 mg disintegrating tablet Indications:Endometrial cancer ([facility])Dissolve 1 tablet (4 mg total) on tongue every 8 (eight) hours as needed for nausea or vomiting. 20 tablet 5Active semaglutide (WEGOVY SUBQ) Inject under the skin.08/04/2025Discontinued(Error) [...] Max Daily Amount: 20 mg 12 tablet 11/09/282360/13/2025Discontinued oxyCODONE (ROXICODONE) 5 mg immediate release tablet [...] for nausea or vomiting. 20 tablet Discontinued(Reorder) oxyCODONE (ROXICODONE) 5 mg immediate release tablet Indications:Pelvic mass,Endometrial cancer (CMS-HCC)Take 1 tablet (5 mg total) by mouth every 6 (six) hours as needed for pain for up to 4 days. Max Daily Amount: 20 mg 15 tablet Expired Active Problems ProblemNoted DateDiagnosed DateEndometrial cancer determined by uterine biopsy 08/08/2025Pelvic mass08/04/2025 Resolved Problems ProblemNoted DateDiagnosed DateResolved DateVaginal Vagina wedwdcbk24 Encounters DateTypeDepartmentCare QxrnWlukjubsjtz61/26/2025Telephone [facility] Gynecology Oncology, A Department of [place] [address] [place] [address] Desmond Martin RN 08/21/2025Tumor Conference [facility] Gynecology Oncology, A Department of [place] [address] [place] [address] Annita Patton, UNDERLINER-GLOBAL ACCOUNT EXECUTIVE 08/20/2025Hospital Encounter [facility] - Surgery [address] [place] [address] Justin Mackey MD 08/17/2025Telephone [facility] Gynecology Oncology, A Department of [place] [address] [place] [phone] Milagros Machado, JORDYN 08/17/2025Telephone [facility] Physicians General Surgery [address] [place] [phone] Regina Zarate, Lillie 08/16/2025 3:00 PM ESTProcedure visit [facility] - Pre Admit [address] [place] [phone] Preop examination (Primary Dx); Anemia, unspecified type08/16/20254627Jsmkue38/19/2025Telephone [facility] Gynecology Oncology, A Department of [facility] [address] [place] [phone] Milagros Machado RN 08/14/2025Telephone [facility] Gynecology Oncology, A Department of [facility] [address] [place] [phone] Christi Tsang CMA 08/14/2025Orders Only [facility], A Department of [facility] [address] [place] [phone] Milagros Machado, JORDYN Endometrial cancer determined by uterine biopsy ([facility]) (Primary Dx)08/14/2025 Orders Only Paola Wilson [facility] - Medical Oncology [facility] [place] [phone] Melinda Coffey PA Post-operative nausea and vomiting (Primary Dx); Pelvic mass; Endometrial cancer ([facility])08/13/2025Telephone [facility] Gynecology Oncology, A Department of [facility] [address] [place] [phone] Milagros Machado RN 08/10/2025Orders Only [facility], A Department of [facility] [address] [place] [phone] Desmond Martin RN 08/10/2025Telephone [facility], A Department of [facility] [address] [place] [phone] Milagros Machado RN 08/09/2025Telephone [facility] Physicians General Surgery [address] [place] [address] Regina Zarate RMA 08/08/2025Orders Only [facility], A Department of [facility] [address] [place] [phone] Milagros Machado, JORDYN Endometrial cancer determined by uterine biopsy ([facility]) (Primary Dx)08/07/2025 1:30 PM ESTAnesthesia Event [facility] Surgery [address] [place] [phone] Mahendra Rico MD Roberts, Alyssa [facility] 08/07/2025 12:30 PM EST - 08/07/2025 3:00 PM ESTSurgery [facility] Surgery [address] [place] [phone] Dennis Monson MD [facility] HYSTERECTOMY SALPINGO OOPHORECTOMY/RADICAL INTRAPERITONEAL TUMOR BJDONSLMI17/11/2038Zfyqxk20/10/2025Telephone [facility] Gynecology Oncology, A Department of [facility] [address] [place] [phone] Rocio Alexander MD Ttiardfrx35/09/2025Orders Only [facility] [employer] [address] [place] [phone] Transcribe, Orders Support User Pain (Primary Dx)08/04/2025 9:37 AM ESTAnesthesia Event [facility] Surgery [address] [place] [phone] Franklin Ramos MD Rayle, Marissa, APRN-DUMP TRUCK DRIVER 08/04/2025 8:30 AM EST - 08/04/2025 9:40 AM ESTSurgery [facility] - Surgery [address] [place] [address] Rocio Alexander MD DILATION CURETTAGE [[id number] (CPT??)]08/04/2025 3:32 AM EST - 08/09/2025 5:49 PM ESTHospital Encounter [facility] - GEN 6 Acute [address] [place] [address] Rocio Alexander MD Endometrial cancer determined by uterine biopsy ([facility]) (Primary Dx); Pelvic mass; Limited mobility; Nausea Discharge Disposition: Home08/04/20256993Xukyzv62/06/2025 7:10 PM ESTAncillary Procedure [facility] [address] [place] [phone] Pain08/02/2025 6:05 PM ESTAncillary Procedure [facility] [address] [place] [phone] Painfrom Last 3 Months Immunizations No known immunizations Family History Medical HistoryRelationNameCommentsCancerFatherCancerMotherRelationNameStatus CommentsFatherDeceasedMotherDeceased Social History Tobacco UseTypesPacks/DayYears UsedDateSmoking Tobacco: NeverSmokeless Tobacco: Never Tobacco Cessation:Counseling Given: Not Answered Alcohol UseStandard Drinks/WeekCommentsNever0 (1 standard drink = 0.6 oz pure alcohol)PHQ-2AnswerDate RecordedTotal Prrpa72710/04/2024UDIT-CAnswerDate Recorded Q1: How often do you have [...] InformationValueDate RecordedSex Assigned at BirthNot on fileLegal FguMklhti30/08/2025 12:05 AM ESTGender IdentityNot on fileSexual OrientationNot on file Last Filed Vital Signs Vital SignReadingTime TakenCommentsBlood Vhgypxla656/7208/09/2025 7:49 AM EST Kbnnz915408/09/2025 7:49 AM KTKYivxrforyta37.4 ??C (99.4 ??F)08/09/2025 7:49 AM ESTRespiratory Ktcn378410/09/2024 7:49 AM ESTOxygen Zhhzxfyjga40%08/09/2025 7:49 AM ESTInhaled Oxygen Concentration--Ivjyjj74.3 kg (155 lb)08/16/2025 3:27 PM EST Osjogj636.5 cm (5' 2 )08/16/2025 3:27 PM ESTBody Mass Index28.35110/16/2024 3:27 PM EST Plan of Treatment DateTypeDepartmentCare Team (Latest Contact Info)Cbhhkqehjwv68/01/2025 3:30 PM ESTTelemedicine [facility], A Department of [address] [phone] Annita Patton, UNDERLINER-GLOBAL ACCOUNT EXECUTIVE [address] [place] [address], [address] [place] [address] 08/30/2025 10:30 AM ESTInfusion [facility] - Medical Oncology [address] [place] [phone] 08/31/2025 8:30 AM ESTInfusion [facility] - Medical Oncology [address] [place] [phone] 09/10/2025 1:30 PM ESTOffice Visit [facility], A Department of [address] [place] [phone] Annita Patton, UNDERLINER-[facility] [address] [place] [address], [address] [place] [address] 09/25/2025 10:00 AM ESTInfusion [facility] - Medical Oncology [address] [place] [address], [place] [phone] 09/26/2025 8:00 AM ESTTelemedicine [facility], A Department of [address] [place] [phone] Annita Patton, UNDERLINER-GLOBAL ACCOUNT EXECUTIVE [address] [place] [address], [address] [place] [address] 09/26/2025 8:30 AM ESTInfusion [facility] - Medical Oncology [address] [place] [phone] Health MaintenanceDue DateLast DoneCommentsAdult BMI Follow Up Plan1973 DTaP,Tdap and Td Vaccines (1 - Tdap)1974Zoster (Shingles) Vaccine (1 of 2) 1974RSV ( or age 60+ yrs) (1 - Risk 60-74 years 1-dose series) 2015Fall Risk Pstglezhl69/05/2020Influenza Yozwxyq6705/28/2025Depression Jhooobwlr77dult BMI Rftcwvfvm22Tobacco Pqfjvbwcr19 Goals GoalPatient Goal TypeAssociated ProblemsRecent ProgressPatient-Stated?Author return home Milagros Escobedo RN Note: Evaluation of progress towards goal: patient plans to return home with family support Autogenerated Goal Care PlanAutogenerated ProblemNoPotts, [employer] Not on file Procedures Procedure NamePriorityDate/TimeAssociated DiagnosisCommentsBASIC METABOLIC PANEL Yynokep7408/16/2025 3:52 PM EST Preop examination CBC WITH AUTO QZUUMUNWVKHIHcedgkk77/20/2025 3:52 PM EST Preop examination Anemia, unspecified type CROSSMATCH NMFJgoubbm01/15/2025 12:37 AM EST CBC WITH AUTO GZKRJALAUGJCLdzkwwl78/13/2025 5:32 AM EST COMPREHENSIVE METABOLIC RQLRNWicwjit96/13/2025 5:32 AM EST CBC WITH AUTO MOSRELLMGOVYAahwhpg60/12/2025 5:58 AM EST TYPE AND TRQGTALskovqr34/12/2025 5:57 AM EST COMPREHENSIVE METABOLIC VHGCVJxrnrju86/12/2025 5:57 AM EST SURGICAL TKDWVRJFXBmwvyzq15/11/2025 3:42 PM EST NON-GYNECOLOGIC ZOUBRLZJVofmxis36/11/2025 2:44 PM EST TRANSFUSE RED BLOOD HQGREPntvwdj73/11/2025 2:23 PM ESTPR AN ELECTIVE ENDOTRACHEAL JDBWWIBzkicgf93/11/2025 1:44 PM EST FLEXIBLE DBHEOEOGCSAVI45/11/2025 1:30 PM EST ENDOMETRIAL CANCER Case Notes [facility] 2W MOVE UP TO 1130 Special Needs MOVE UP TO 1130 [facility] HYSTERECTOMY SALPINGO AQLEBREMRSKY73/11/2025 1:30 PM EST ENDOMETRIAL CANCER Case Notes [facility] 2W MOVE UP TO 1130 Special Needs MOVE UP TO 1130 COMPREHENSIVE METABOLIC FMFWKZjxzhah35/11/2025 5:40 AM EST CBC WITH AUTO GYWOIFHPKXJBPxaevub88/11/2025 5:40 AM EST CROSSMATCH WBYOibzhas87/10/2025 6:37 AM ESTCOMPREHENSIVE METABOLIC PANELRoutine 08/06/2025 6:23 AM EST CBC WITH AUTO UFKDROYAJWNQJdodutn53/10/2025 6:23 AM EST COMPREHENSIVE METABOLIC PHZHHHddhyyf67/09/2025 8:[address] CHEST W YIHAJanitld98/09/2025 12:11 PM EST CBC WITH AUTO CVDIBUMEEARORawcdim84/09/2025 4:02 AM EST COMPREHENSIVE METABOLIC SYICCXdwpoft68/09/2025 4:02 AM EST CBC WITH AUTO TLNSYOIFROIGViqqnjb24/08/2025 12:18 PM EST TRANSFUSE RED BLOOD IXQJFQikitrw01/08/2025 10:00 AM ESTPR AN ELECTIVE ENDOTRACHEAL IZPUQORafpyrr76/08/2025 9:48 AM EST [place] HYSTEROSCOPY,W/ENDO BX08/04/2025 9:37 AM EST vaginal bleed TRANSFUSE RED BLOOD VQSLBHbrsyil92/08/2025 8:39 AM ESTREPEATED ABORHRoutine 08/04/2025 8:27 AM ESTREPEATED OFCBPSjhjfyj51/08/2025 7:41 AM EST CROSSMATCH GBZModrcjm57/08/2025 5:30 AM EST TYPE AND IUTOBIDtjjfka25/08/2025 5:30 AM EST OLPZSKGDDZTucnuhz67/08/2025 5:30 AM EST JJVHUxpbmcp08/08/2025 5:30 AM EST PROTIME & KRDUhupxwv69/08/2025 5:30 AM EST CBC WITH AUTO FVSIDXNLGQOTIlqjgwr07/08/2025 5:30 AM EST COMPREHENSIVE METABOLIC YRZTWJimqxep00/08/2025 5:30 AM EST PULSE OXIMETRY, RYSGKgyktjq21/08/2025 3:38 AM ESTCT ABDOMEN AND PELVIS W CONT Hhhfrcx0508/02/2025 7:10 PM EST Pain US DUPLEX ABD PELVIS NVWOYtdlryr17/06/2025 6:05 PM EST Pain from Last 3 Months Results * (ABNORMAL) CBC auto differential (08/16/2025 3:52 PM EST) Only the most recent of8 resultswithin the time period is included. ComponentValueRef RangeTest MethodAnalysis TimePerformed AtPathologist Signature WBC30.6(H)4 - 11 10^9/L110/16/2024 4:45 PM [facility] RBC Count4.063.8 - 5.2 10^12/L110/16/2024 4:45 PM ESTPROCITY OF HOPE NATIONAL MEDICAL CENTERHemoglobin11.4(L)11.7 - 15.5 g/dL08/16/2025 4:45 PM ESTPROCITY OF HOPE NATIONAL MEDICAL CENTERHematocrit34.4(L)35 - 47 %08/16/2025 4:45 PM ESTPROCITY OF HOPE NATIONAL MEDICAL CENTERMCV8580 - 100 fL08/16/2025 4:45 PM ESTPROCITY OF HOPE NATIONAL MEDICAL CENTERMCH28.027 - 34 pg08/16/2025 4:45 PM [facility]MCHC33.032 - 36 g/dL08/16/2025 4:45 PM [facility] SYSTEMRDW16.6(H)11.5 - 15 %08/16/2025 4:45 PM [facility] SYSTEMPlatelet Ekjdu102(H)150 - 450 10^9/L110/16/2024 4:45 PM EST [facility]ITALMPV8.07 - 12 fL08/16/2025 4:45 PM EST [facility]ITALBands %8%08/16/2025 4:45 PM [facility] SYSTEMComment:This is an appended report. These results have been appended to a previously preliminary verified report.Neutrophils %81% 08/16/2025 4:45 PM [facility]Comment:This is an appended report. These results have been appended to a previously preliminary verified report.Lymphocytes %4%08/16/2025 4:45 PM [facility]Comment:This is an appended report. These results have been appended to a previously preliminary verified report.Monocytes %7%08/16/2025 4:45 PM EST [facility]Comment:This is an appended report. These results have been appended to a previously preliminary verified report. Neutrophils Absolute (M)27.3(H)1.5 - 6.6 10^9/L110/16/2024 4:45 PM [facility]Comment:This is an appended report. These results have been appended to a previously preliminary verified report.Lymphocytes Absolute 1.21.0 - 3.5 10^9/L110/16/2024 4:45 PM [facility] Comment:This is an appended report. These results have been appended to a previously preliminary verified report.Monocytes Absolute2.1(H)0.0 - 0.9 10^9/L 08/16/2025 4:45 PM [facility]Comment:This is an appended report. These results have been appended to a previously preliminary verified report.Polychromasia1+08/16/2025 4:45 PM ESTMER[facility]OSPITALComment:This is an appended report. These results have been appended to a previously preliminary verified report.Elliptocytes1+08/16/2025 4:45 PM EST [facility]Comment:This is an appended report. These results have been appended to a previously preliminary verified report. Stomatocytes1+08/16/2025 4:45 PM ESTMER[facility]ITALComment: This is an appended report. These results have been appended to a previously preliminary verified report.Differential TypeMANUAL XURCSFTVGJWX53/20/2025 4:45 PM [facility]Comment:This is an appended report. These results have been appended to a previously preliminary verified report. Specimen (Source)Anatomical Location / LateralityCollection Method / Volume Collection TimeReceived TimeBloodVenous blood / UnknownVenipuncture / Unknown 08/16/2025 3:52 PM EST08/16/2025 3:52 PM EST Narrative Authorizing ProviderResult TypeResult StatusDaviquiana Angulo MDLAB BLOOD ORDERABLESFinal ResultPerforming OrganizationAddressCity/State/ZIP CodePhone Number [facility] [address] [place] [address], * (ABNORMAL) Basic Metabolic Panel (08/16/2025 3:52 PM EST)ComponentValueRef RangeTest MethodAnalysis TimePerformed AtPathologist OdwyusqajVGIPDG561393 - 146 mmol/L110/16/2024 4:17 PM ESTMERCY [facility]ERSON HOSPITALPOTASSIUM 2.6(LL)3.5 - 5.0 mmol/L110/16/2024 4:17 PM ESTMER[facility]OSPITALCHLORIDE10398 - 109 mmol/L110/16/2024 4:17 PM ESTMER[facility]OSPITALCARBON ZEXFBQA6732 - 32 mmol/L110/16/2024 4:17 PM ESTMER[facility]OSPITALANION UUT382 - 15 mmol/L110/16/2024 4:17 PM EST [facility]OSPITALBLOOD UREA XGSTUKZC770 - 27 mg/dL08/16/2025 4:17 PM ESTMER[facility] HOSPITALCREATININE0.700.40 - 1.00 mg/dL 08/16/2025 4:17 PM [facility] SYSTEMComment:METHOD TRACEABLE TO IDMS NTPJNQHDUHPQQNU378(H)65 - 99 mg/dL08/16/2025 4:17 PM EST [facility]OS[facility]ITALCALCIUM8.58.5 - 10.5 mg/dL08/16/2025 4:17 PM [facility] SYSTEMEGFR Non-Race Dependent>90>=60 ml/min/1.73sq.m110/16/2024 4:17 PM [facility] Comment: Reported eGFR is based on the CKD-EPI 2020 equation that does not use a race coefficient. Specimen (Source)Anatomical Location / LateralityCollection Method / Volume Collection TimeReceived TimeBloodVenous blood / UnknownVenipuncture / Unknown 08/16/2025 3:52 PM EST08/16/2025 3:52 PM EST Narrative Authorizing ProviderResult TypeResult StatusDaapollo Angulo MDLAB BLOOD ORDERABLESFinal ResultPerforming OrganizationAddressCity/State/ZIP CodePhone Number [facility] [address] * Crossmatch RBC:Number of Units: 2 (08/11/2025 12:37 AM EST) Only the most recent of3 resultswithin the time period is included. ComponentValueRef RangeTest MethodAnalysis TimePerformed AtPathologist Signature Blood component [id number] BANK - WELLSKYUnit [id number] BANK - WELLSKYUnit ABOOBLOOD BANK - WELLSKYUnit RHPOSBLOOD BANK - WELLSKY CrossmatchCompatibleBLOOD BANK - WELLSKYStatus of unitTRANSFUSEDBLOOD BANK - WELLSKYExpiration [id number] BANK - WELLSKYBB Type [id number] BANK - WELLSKYSpecimen (Source)Anatomical Location / LateralityCollection Method / VolumeCollection TimeReceived TimeBloodVenous blood / Yjavwyj8008/11/2025 12:37 AM EST08/04/2025 5:47 AM EST Narrative Authorizing ProviderResult TypeResult StatusKassivelisse Still MDBLOOD BANK PRODUCT ORDERABLESEdited Result - FinalPerforming OrganizationAddressCity/State/ZIP Code Phone Number [facility] * (ABNORMAL) Comprehensive metabolic panel (08/09/2025 5:32 AM EST) Only the most recent of7 resultswithin the time period is included. ComponentValueRef RangeTest MethodAnalysis TimePerformed AtPathologist Signature CUDNIP537729 - 146 mmol/L110/09/2024 6:26 AM [facility] LABORATORYPOTASSIUM3.3(L)3.5 - 5.0 mmol/L110/09/2024 6:26 AM [facility] CJNQFHSMABPCAWIYFZ55441 - 109 mmol/L110/09/2024 6:26 AM [facility] LABORATORYCARBON MKYMQNA9816 - 32 mmol/L110/09/2024 6:26 AM [facility] LABORATORYANION FPN442 - 15 mmol/L110/09/2024 6:26 AM [facility] LABORATORYBLOOD UREA PICDUBED282 - 27 mg/dL08/09/2025 6:26 AM [facility] LABORATORYCREATININE0.650.40 - 1.00 mg/dL08/09/2025 6:26 AM [facility] LABORATORYComment:METHOD TRACEABLE TO IDMO LQOPTYUQVRZQIRF0075 - 99 mg/dL08/09/2025 6:26 AM [facility] LABORATORYCALCIUM8.1(L)8.5 - 10.5 mg/dL08/09/2025 6:26 AM [facility] LABORATORYTOTAL PROTEIN5.4(L)6.0 - 8.0 g/dL08/09/2025 6:26 AM [facility] LABORATORYALBUMIN3.0(L)3.2 - 5.3 g/dL08/09/2025 6:26 AM [facility] LABORATORYALKALINE IWXHNDLCNCK6353 - 130 U/L110/09/2024 6:26 AM [facility] TOFZQKEJGDYVL99<=41 U/L110/09/2024 6:26 AM [facility] LABORATORYALT6<=31 U/L110/09/2024 6:26 AM [facility] LABORATORYBILIRUBIN,TOTAL0.50.3 - 1.2 mg/dL08/09/2025 6:26 AM [facility] LABORATORYEGFR Non-Race Dependent>90>=60 ml/min/1.73sq.m110/09/2024 6:26 AM [facility] LABORATORYComment: Reported eGFR is based on the CKD-EPI 2020 equation that does not use a race coefficient. Specimen (Source)Anatomical Location / LateralityCollection Method / Volume Collection TimeReceived TimeBloodVenous blood / UnknownVenipuncture / Unknown 08/09/2025 5:32 AM EST08/09/2025 5:54 AM EST Narrative Authorizing ProviderResult TypeResult StatusBrittnee Sam MDLAB BLOOD ORDERABLESFinal ResultPerforming OrganizationAddressCity/State/ZIP CodePhone Number [facility] [address] [place] [address], * Type and screen(includes indirect grady) (08/08/2025 5:57 AM EST) Only the most recent of2 resultswithin the time period is included. ComponentValueRef RangeTest MethodAnalysis TimePerformed AtPathologist Signature ABOO110/08/2024 7:52 AM ESTTTH BB - WLOXKRCEASpgvwfvg41/12/2025 7:52 AM ESTTTH BB - WELLSKYAntibody ChqggyEwrssncp89/12/2025 7:52 AM ESTTTH BB - WELLSKYSpecimen (Source)Anatomical Location / LateralityCollection Method / VolumeCollection TimeReceived TimeBloodVenous blood / UnknownVenipuncture / Idbsryh4608/08/2025 5:57 AM EST08/08/2025 6:54 AM EST Narrative Authorizing ProviderResult TypeResult StatusRocio Alexander MDBLOOD BANK TEST ORDERABLESEdited Result - FinalPerforming OrganizationAddressCity/State/ZIP Code Phone Number [facility] RAJI MALDONADO [address] [place] [address], [place] * Surgical Pathology (08/07/2025 3:42 PM EST)ComponentValueRef RangeTest Method Analysis TimePerformed AtPathologist SignatureCase ReportSurgical Pathology Report ? Case: [id number] ? Authorizing Provider: ??Dennis Monson MD ?Collected: ? 08/07/2025 1542 ? Ordering Location: ? [facility] ??Received: ?08/07/2025 1647 ? - Surgery ? Pathologist: ? Gene K MD Qu[place] ? Specimens: ?? 1) - Uterus, Fallopian Tube, Ovary, UTERUS, CERVIX, BILATERAL TUBES AND OVARIES ? 2) - Pelvis, LEFT POSTERIOR PELVIS BIOPSY ? 08/14/2025 2:47 PM [facility] LABORATORYFinal Diagnosis1. Uterus, fallopian tubes [...] posterior pelvis, biopsy: Metastatic carcinoma.08/14/2025 2:47 PM [facility] at 1447 ESTGross Description1. Received [...] 1 minute Total fixation time: 27 hours (18,ns,[id number], m8.1) 2. Received in formalin labeled ANDERSON, left posterior pelvis biopsy is pink-lambert feathery and friable soft tissue admixed with hemorrhagic material, 2.5 x 2.5 x 1.2 cm in aggregate. The specimen is submitted entirely in cassettes A- C. (3,ns,[id number], m8.1) 08/14/2025 2:47 PM [facility] LABORATORYSynoptic ChecklistENDOMETRIUM ENDOMETRIUM - All Specimens CC [...] (no nodes submitted or found)08/14/2025 2:47 PM [facility] LABORATORYEmbedded Ocbbpy1408/14/2025 2:47 PM [facility] LABORATORYSpecimen (Source)Anatomical Location / LateralityCollection Method / VolumeCollection TimeReceived TimeTissue (Uterus, Fallopian Tube, Ovary)08/07/2025 3:42 PM EST08/07/2025 4:47 PM ESTComment:Pre-op diagnosis: ENDOMETRIAL CANCERTissue specimen (specimen)Pelvic region / Fxzxkmr3608/07/2025 3:43 PM EST08/07/2025 4:47 PM ESTComment:Pre-op diagnosis: ENDOMETRIAL CANCER Narrative Authorizing ProviderResult TypeResult StatusDennis Monson MDPATHOLOGY/CYTOLOGY ORDERABLESFinal ResultPerforming OrganizationAddressCity/State/ZIP CodePhone Number [facility] [address] [place] [address], * Transfuse RBC:1 Unit (08/07/2025 2:56 PM EST) Only the most recent of3 resultswithin the time period is included. Narrative Authorizing ProviderResult TypeResult StatusAleia Monica Alexander MDBLOOD TRANSFUSION ORDERABLESFinal Result * Cytology non-gynecologic (08/07/2025 2:44 PM EST)ComponentValueRef RangeTest MethodAnalysis TimePerformed AtPathologist SignatureCase ReportMedical Cytology Report ? Case: [id number] ? Authorizing Provider: ??Dennis Monson MD ?Collected: ? 08/07/2025 1444 ? Ordering Location: ? [facility] ??Received: ?08/07/2025 1501 ? - Surgery ? Pathologist: ? Darryl Alcantara MD ? Specimen: ?Pelvis, Pelvis fluid ? 08/14/2025 2:58 PM [facility]ATORYFinal DiagnosisPelvic fluid: Positive for Carcinoma, rare cells.08/14/2025 2:58 PM [facility] at 1458 ESTGross DescriptionReceived was 20ml of red fluid unfixed, labeled as Anderson, pelvis . CytoLyt added in lab. Specimen placed in formalin at 17:00 and had a total fixation time of 8 hours. 08/14/2025 2:58 PM [facility] LABORATORYEmbedded Images 08/14/2025 2:58 PM [facility] LABORATORYSpecimen (Source) Anatomical Location / LateralityCollection Method / VolumeCollection Time Received TimeFluidPelvic region / Qgseltb5108/07/2025 2:44 PM EST08/07/2025 3:01 PM ESTComment:Pre-op diagnosis: ENDOMETRIAL CANCER Narrative Authorizing ProviderResult TypeResult StatusAdawild Monson MDPATHOLOGY/CYTOLOGY ORDERABLESFinal ResultPerforming OrganizationAddressCity/State/ZIP CodePhone Number [facility] [address] [place] [address], * [place] AN ELECTIVE ENDOTRACHEAL AIRWAY (08/07/2025 1:44 PM EST) Narrative Evelin Jackson SRNA - 08/07/2025 1:44 PM EST EDIN Inman 08/07/2025 2:13 PM Airway Patient location during procedure: OR Urgency: Elective Date/Time: 08/07/2025 1:44 PM Airway not difficult IV In Situ: Peripheral General Information and Staff Service Provider: Mahendra Rico MD DUMP TRUCK DRIVER: Karime Mann APRN-DUMP TRUCK DRIVER Student: EDIN Inman Placed by: ??EDIN Inman [...] ProviderResult TypeResult StatusMahendra Rico MDANESTHESIA ORDERABLESFinal Result * CT chest [...] or neoplasm. Endoscopy suggested. Finalized by Timothy Grene MD on 08/06/2025 7:20 AM Procedure Note [...] 08/06/2025 7:20 AM Authorizing ProviderResult TypeResult StatusAlexandria [facility] ORDERABLESFinal Result * [place] AN ELECTIVE ENDOTRACHEAL AIRWAY (08/04/2025 9:48 AM EST) Leonor Cornell APRN-CRNA - 08/04/2025 9:48 AM EST BELLE Ferguson 08/04/2025 10:02 AM Airway Patient location during procedure: OR Urgency: Elective Date/Time: 08/04/2025 9:48 AM Airway not difficult IV In Situ: Peripheral General Information and Staff Service Provider: Franklin Ramos MD DUMP TRUCK DRIVER: BELLE Ferguson Placed by: ??BELLE Ferguson Patient [...] Trauma? No Visibility: ??Cords Clear Blade: Other (Bindo) Blade size: #3 Placement verified by: chest [...] VL and downsized ETT Authorizing ProviderResult TypeResult StatusFranklin Ramos MDANESTHESIA ORDERABLESFinal Result * ABO Rh Repeat (08/04/2025 8:27 AM EST) Only the most recent of2 resultswithin the time period is included. Specimen (Source)Anatomical Location / LateralityCollection Method / Volume Collection TimeReceived Time08/04/2025 8:27 AM EST Narrative Authorizing ProviderResult TypeResult StatusAnnita Still MDBLOOD BANK TEST ORDERABLESFinal ResultPerforming OrganizationAddressCity/State/ZIP CodePhone Number SUNQUEST * (ABNORMAL) APTT (08/04/2025 5:30 AM EST)ComponentValueRef RangeTest Method Analysis TimePerformed AtPathologist ShzmfvgrqZYMJ61(L)26 - 37 sec08/04/2025 6:07 AM [facility]ORATORYSpecimen (Source)Anatomical Location / LateralityCollection Method / VolumeCollection TimeReceived Time BloodVenous blood / UnknownVenipuncture / Rwnutrj2108/04/2025 5:30 AM EST 08/04/2025 5:42 AM EST Narrative Authorizing ProviderResult TypeResult StatusMicssidnolan Still MDLAB BLOOD ORDERABLESFinal ResultPerforming OrganizationAddressCity/State/ZIP CodePhone Number [facility] [address] [place] [address], * Protime & INR (08/04/2025 5:30 AM EST)ComponentValueRef RangeTest Method Analysis TimePerformed AtPathologist BmllykptaXNFEWXO68.89.8 - 13.2 sec 08/04/2025 6:07 AM [facility] LABORATORYINR1.00.9 - 1.2 08/04/2025 6:07 AM [facility]ATORYSpecimen (Source) Anatomical Location / LateralityCollection Method / VolumeCollection Time Received TimeBloodVenous blood / UnknownVenipuncture / Qecqgjl6108/04/2025 5:30 AM EST08/04/2025 5:42 AM EST Narrative Authorizing ProviderResult TypeResult StatusMicssivelisse Still MDLAB BLOOD ORDERABLESFinal ResultPerforming OrganizationAddressCity/State/ZIP CodePhone Number [facility] [address] [place] [address], * Fibrinogen (08/04/2025 5:30 AM EST)ComponentValueRef RangeTest MethodAnalysis TimePerformed AtPathologist OjkholrlsIEJTUAMFXI255707 - 480 mg/dL08/04/2025 6:07 AM [facility]ATORYSpecimen (Source)Anatomical Location / LateralityCollection Method / VolumeCollection TimeReceived Time BloodVenous blood / UnknownVenipuncture / Xvdnbpc9908/04/2025 5:30 AM EST 08/04/2025 5:42 AM EST Narrative Authorizing ProviderResult TypeResult StatusKassidy Toddent MDLAB BLOOD ORDERABLESFinal ResultPerforming OrganizationAddressCity/State/ZIP CodePhone Number [facility] [address] [place] [address], * CT abdomen and pelvis with contrast [...] Additional Health Concerns Active ProblemsNoted DateDiagnosed DateAutogenerated Xagvuaz5608/10/2025 Insurance Advance Directives * Full Code (Latest Code Status on File) Date ActivatedDate TunmnlagouaVkesrzsx63/8/2025 3:38 AM08/09/2025 7:55 PM Care Teams Team MemberRelationshipSpecialtyStart DateEnd Date Bin Sidhu MD [address] [phone] PCP - GeneralFamily Dxkvbcma46/9/25
--- OUTSIDE RECORDS SUMMARY | 2025-08-23 11:27 | XMS_ITS | Encounter Summary ---
Author Organization [facility] tem Address [id number] [address] [place] [address] Care Team Providers Care Interactive Media Director Name Role Phone Bin Sidhu MD Primary Care Provider [phone] Encounter Details DateTypeDepartmentCare Team (Latest Contact Info)Vgfowyhlpjv35/14/2025Orders Only [facility] Gynecology Oncology, A Department of [facility] [address] [facility] [address] [place] [address] Desmond Martin RN Social History Tobacco UseTypesPacks/DayYears UsedDateSmoking Tobacco: NeverSmokeless Tobacco: NeverAlcohol UseStandard Drinks/WeekCommentsNever0 (1 standard drink = 0.6 oz pure alcohol)PHQ-2AnswerDate RecordedTotal Jrvnm63410/04/2024UDIT-CAnswerDate RecordedQ1: How often do you have a [...] ValueDate RecordedSex Assigned at BirthNot on fileLegal SshAodwxm43/08/2025 12:05 AM ESTGender IdentityNot on fileSexual OrientationNot on filedocumented as of this encounter Progress Notes * Desmond Martin RN - 08/10/2025 11:08 AM EST Clinicals faxed to [facility] at [phone]. documented in this encounter Plan of Treatment DateTypeDepartmentCare Team (Latest Contact Info)Qnxqqlykfry94/01/2025 3:30 PM ESTTelemedicine [facility], A Department of [address] [place] [address] Annita Patton, SLAB DEPILER OPERATOR-SKIN PEELING MACHINE OPERATOR [address] [place] [address], [address] [place] [address] 08/30/2025 10:30 AM ESTInfusion Paola Ellington [facility] - Medical Oncology [address] [place] [address] 08/31/2025 8:30 AM ESTInfusion Paola Ellington [facility] - Medical Oncology [address] [place] [address] 09/10/2025 1:30 PM ESTOffice Visit [facility], A Department of [address] [place] [address] Annita Patton, SLAB DEPILER OPERATOR-SKIN PEELING MACHINE OPERATOR [address] [facility], [address] [place] [address] 09/25/2025 10:00 AM ESTInfusion [facility] [address] [place] [address] 09/26/2025 8:00 AM ESTTelemedicine [facility], A Department of [address] [place] [address] Annita Patton, SLAB DEPILER OPERATOR-SKIN PEELING MACHINE OPERATOR [address] [place] [address], [address] [place] [address] 09/26/2025 8:30 AM ESTInfusion Paola L Sharp [facility] - Medical Oncology [address] [place] [phone] documented as of this encounter Goals GoalPatient Goal TypeAssociated ProblemsRecent ProgressPatient-Stated?Author return home Milagros Escobedo RN Note: Evaluation of progress towards goal: patient plans to return home with family support Autogenerated Goal Care PlanAutogenerated ProblemNoPotts, Elizabethdocumented as of this encounter Visit Diagnoses Not on filedocumented in this encounter Additional Health Concerns Active ProblemsNoted DateDiagnosed DateAutogenerated Uzmstqa1508/10/2025ssessment Noted TimePHQ-9 Depression Total Score: 3:45 PM ESTdocumented as of this encounter Care Teams Team MemberRelationshipSpecialtyStart DateEnd Date Bin Sidhu MD [address] [place] [address] PCP - GeneralFamily Yipzxdua33/9/25documented as of this encounter
--- OUTSIDE RECORDS SUMMARY | 2025-08-23 11:27 | XMS_ITS | Encounter Summary ---
Author Organization [facility] Address [facility] [id number] [address] [place] [address] Care Team Providers Care Electric Motor Assembler And Tester Name Role Phone Bin Sidhu MD Primary Care Provider [phone] Encounter Details DateTypeDepartmentCare Team (Latest Contact Info)Gpfhktqxnnm84/26/2025Telephone [facility] Gynecology Oncology, A Department of [facility] [address] [address] Desmond Martin RN Social History Tobacco UseTypesPacks/DayYears UsedDateSmoking Tobacco: NeverSmokeless Tobacco: NeverAlcohol UseStandard Drinks/WeekCommentsNever0 (1 standard drink = 0.6 oz pure alcohol)PHQ-2AnswerDate RecordedTotal Bohrx44310/04/2024UDIT-CAnswerDate RecordedQ1: How often do you have a [...] ValueDate RecordedSex Assigned at BirthNot on fileLegal IniQobkln94/08/2025 12:05 AM ESTGender IdentityNot on fileSexual OrientationNot on filedocumented as of this encounter Miscellaneous Notes * Telephone Encounter - Desmond Martin RN - 08/22/2025 10:13 AM EST Maricel Mora from [facility] called the office stating that she will send over ED note, CT scans, Xray, H&P's and discharge summary from patients hospital stay. Quality Control Head informed Maricel Cain wheelchair order that needs evaluation completed. Maricel Mora could not confirm that an evaluation was done. Fax number provided. documented in this encounter Plan of Treatment DateTypeDepartmentCare Team (Latest Contact Info)Uqlbejnarcx97/01/2025 3:30 PM ESTTelemedicine [facility], A Department of [address] [place] [address] Annita Patton, WEBFOCUS DEVELOPER-HANDKERCHIEF SAMPLE CLERK [address] [place] [address], [address] [place] [address] 08/30/2025 10:30 AM ESTInfusion [facility] - [facility] Oncology [address] [place] [address] 08/31/2025 8:30 AM ESTInfusion Paola Ellington [facility] - Medical Oncology [address] [place] [address], [place] [address] 09/10/2025 1:30 PM ESTOffice Visit [facility], A Department of [address] [place] [address] Annita Patton, WEBFOCUS DEVELOPER[address], [address] [place] [address] 09/25/2025 10:00 AM ESTInfusion Paola Ellington [facility] - Medical Oncology [address] [place] [address], [place] [address] 09/26/2025 8:00 AM ESTTelemedicine [facility], A Department of [address] [place] [address] Annita Patton, [address], [address] [place] [address] 09/26/2025 8:30 AM ESTInfusion Paola Ellington [facility] - Medical Oncology [address] [place] [address], [place] [address] documented as of this encounter Goals GoalPatient Goal TypeAssociated ProblemsRecent ProgressPatient-Stated?Author return home Milagros Escobedo RN Note: Evaluation of progress towards goal: patient plans to return home with family support Autogenerated Goal Care PlanAutogenerated ProblemNoPotts, Elizabethdocumented as of this encounter Visit Diagnoses Not on filedocumented in this encounter Additional Health Concerns Active ProblemsNoted DateDiagnosed DateAutogenerated Rzmtshh7108/10/2025ssessment Noted TimePHQ-9 Depression Total Score: 011/04/2025 3:45 PM ESTdocumented as of this encounter Care Teams Team MemberRelationshipSpecialtyStart DateEnd Date Bin Sidhu MD [address] [phone] PCP - GeneralFamily Farymrkr23/9/25documented as of this encounter
--- OUTSIDE RECORDS SUMMARY | 2025-08-23 11:27 | XMS_ITS | Encounter Summary ---
Author Organization [employer] [facility] tem Address [facility][id number] [address] [place] [address] Care Team Providers Care Cigarette Lighter Repairer Name Role Phone Bin Sidhu MD Primary Care Provider [phone] Encounter Details DateTypeDepartmentCare Team (Latest Contact Info)Enrlywwleur39/18/2025Orders Only Paola [facility] - Medical Oncology [address] [place] [address] Melinda Coffey PA [address] [place] [address] Post-operative nausea and vomiting (Primary Dx); Pelvic mass; Endometrial cancer ([facility]) Social History Tobacco UseTypesPacks/DayYears UsedDateSmoking Tobacco: NeverSmokeless Tobacco: NeverAlcohol UseStandard Drinks/WeekCommentsNever0 (1 standard drink = 0.6 oz pure alcohol)PHQ-2AnswerDate RecordedTotal Sfgyb37610/04/2024UDIT-CAnswerDate RecordedQ1: How often do you have a [...] ValueDate RecordedSex Assigned at BirthNot on fileLegal KumEibbrn41/08/2025 12:05 AM ESTGender IdentityNot on fileSexual OrientationNot on filedocumented as of this encounter Plan of Treatment DateTypeDepartmentCare Team (Latest Contact Info)Kvgkazasrbc39/01/2025 3:30 PM ESTTelemedicine [facility], A Department of [address] [place] [phone] Annita Patton, RESAW OPERATOR-DIRECTOR OF OPERATIONS FOR THERAPY [address] [place] [address], [address] [place] [address] 08/30/2025 10:30 AM ESTInfusion Paola Ell[facility] - Medical Oncology [address] [place] [phone] 08/31/2025 8:30 AM ESTInfusion Paola Ellington [facility] - Medical Oncology [address] [place] [phone] 09/10/2025 1:30 PM ESTOffice Visit [facility], A Department of [address] [place] [address] Annita Patton, RESAW OPERATOR[address], [address] [place] [address] 09/25/2025 10:00 AM ESTInfusion Paola L [facility] - Medical Oncology [address] [place] [phone] 09/26/2025 8:00 AM ESTTelemedicine [facility] Gynecology Oncology, A Department of [address] [place] [address] Annita Patton, RESAW OPERATOR[address], [address] [place] [address] 09/26/2025 8:30 AM ESTInfusion Paola L Chand[facility] - Medical Oncology [address] [place] [phone] documented as of this encounter Goals [...] mass or lump, unspecified site Endometrial cancer ([facility]) Malignant neoplasm of corpus uteri, except isthmus documented in this encounter Additional Health Concerns Active ProblemsNoted DateDiagnosed DateAutogenerated Wexmnab1308/10/2025ssessment Noted TimePHQ-9 Depression Total Score: 3:45 PM ESTdocumented as of this encounter Care Teams Team MemberRelationshipSpecialtyStart DateEnd Date Bin Sidhu MD [address] [phone] PCP - GeneralFamily Bspjrcim57/9/25documented as of this encounter
--- OUTSIDE RECORDS SUMMARY | 2025-08-23 11:27 | XMS_ITS | Encounter Summary ---
Author Organization [facility] tem Address [facility] [id number] [address] [place] [address] Care Team Providers Care Pantry Chef Name Role Phone Bin Sidhu MD Primary Care Provider [phone] Reason for Visit * Auth/CertSpecialtyDiagnoses / ProceduresReferred By ContactReferred To Contact Diagnoses needed for chemotherapy Procedures [place] INSJ TUNNELED CTR VAD W/SUBQ PORT AGE 5 YR/> INSERTION PORT A CATH Justin Mackey MD [address] [place] [address] Phone: tel: fax: Referral IDStatusReasonStart DateExpiration DateVisits RequestedVisits [id number] Encounter Details DateTypeDepartmentCare Team (Latest Contact Info)Gtfzfevqdej92/24/2025Hospital Encounter [facility] - Surgery [address] [place] [phone] Justin Mackey MD [address] [place] [address] Social History Tobacco UseTypesPacks/DayYears UsedDateSmoking Tobacco: NeverSmokeless Tobacco: NeverAlcohol UseStandard Drinks/WeekCommentsNever0 (1 standard drink = 0.6 oz pure alcohol)PHQ-2AnswerDate RecordedTotal Uvgcb67510/04/2024UDIT-CAnswerDate RecordedQ1: How often do you have a [...] ValueDate RecordedSex Assigned at BirthNot on fileLegal CzsTblqrr66/08/2025 12:05 AM ESTGender IdentityNot on fileSexual OrientationNot on filedocumented as of this encounter Miscellaneous Notes * Perioperative Nursing Note - Rita Salgado RN - 08/16/2025 5:07 PM EST Juliana JACKSON calls story writer, explains that patient has several abnormal labs and is recommending ER evaluation. Trim Master Operator has extensive conversation with patient and family about options of care. Patient ultimately agrees to go to [place] [facility] for evaluation. Trim Master Operator recommends patient call physician office tomorrow and MANUEL to ensure procedure will be okay to proceed on Wednesday. Verbalizes understanding, d enies further questions at this time. documented in this encounter Plan of Treatment DateTypeDepartmentCare Team (Latest Contact Info)Pmgqqohrzzh85/01/2025 3:30 PM ESTTelemedicine [facility], A Department of [address] [place] [address] Annita Patton, HOMICIDE DETECTIVE-INTELLIGENCE OFFICER BASIC [address] [place] [address], [address] [place] [address] 08/30/2025 10:30 AM ESTInfusion Paola Ellington [facility] - Medical Oncology [address] [place] [phone] 08/31/2025 8:30 AM ESTInfusion Paola Ellington [facility] - Medical Oncology [address] [place] [address], [place] [address] 09/10/2025 1:30 PM ESTOffice Visit [facility], A Department of [address] [place] [address] Annita Patton, HOMICIDE DETECTIVE-INTELLIGENCE OFFICER BASIC [address] [place] [address], [address] [place] [address] 09/25/2025 10:00 AM ESTInfusion Paola Ellington [facility] - Medical Oncology [address] [place] [phone] 09/26/2025 8:00 AM ESTTelemedicine [facility], A Department of [address] [place] [address] Annita Patton, HOMICIDE DETECTIVE-INTELLIGENCE OFFICER BASIC [address] [place] [address], [address] [place] [address] 09/26/2025 8:30 AM ESTInfusion Paola Steve [facility] - Medical Oncology [address] [place] [address] documented as of this encounter Goals GoalPatient Goal TypeAssociated ProblemsRecent ProgressPatient-Stated?Author return home Milagros Escobedo RN Note: Evaluation of progress towards goal: patient plans to return home with family support Autogenerated Goal Care PlanAutogenerated ProblemNoPotts, Elizabethdocumented as of this encounter Visit Diagnoses Not on filedocumented in this encounter Additional Health Concerns Active ProblemsNoted DateDiagnosed DateAutogenerated Slqpkcr9908/10/2025ssessment Noted TimePHQ-9 Depression Total Score: 3:45 PM ESTdocumented as of this encounter Care Teams Team MemberRelationshipSpecialtyStart DateEnd Date Bin Sidhu MD [address] [place] [address] PCP - GeneralFamily Rybeigrk38/9/25documented as of this encounter
--- OUTSIDE RECORDS SUMMARY | 2025-08-23 11:27 | XMS_ITS | Encounter Summary ---
Author Organization [facility] tem Address [id number] [address] [place] [address] Care Team Providers Care Meter Repairer Helper Name Role Phone Bin Sidhu MD Primary Care Provider [phone] Encounter Details DateTypeDepartmentCare Team (Latest Contact Info)Qtlrddcabsn05/13/2025Telephone [facility] [address] [place] [phone] Regina Zarate RMA Social History Tobacco UseTypesPacks/DayYears UsedDateSmoking Tobacco: NeverSmokeless Tobacco: NeverAlcohol UseStandard Drinks/WeekCommentsNever0 (1 standard drink = 0.6 oz pure alcohol)PHQ-2AnswerDate RecordedTotal Fzdby50210/04/2024UDIT-CAnswerDate RecordedQ1: How often do you have a [...] ValueDate RecordedSex Assigned at BirthNot on fileLegal CaxMqchzo85/08/2025 12:05 AM ESTGender IdentityNot on fileSexual OrientationNot on filedocumented as of this encounter Miscellaneous Notes * Telephone Encounter - ULI Blanchard - 08/09/2025 11:57 AM EST Images from the original note were not included. 08/09/25 I called patient and left a voicemail to call me to schedule a port placement. I left my phone number and extension on her voicemail. ULI Blanchard / plastic surgery manager 08/09/25 MD Carmelina Donaldson; Cheryl Back, BREAD STACKER-INHALATION THERAPY TEACHER Cc: Dafne Colmenares; ULI Blanchard Yes please [...] Plan of Treatment DateTypeDepartmentCare Team (Latest Contact Info)Ubktayttkul60/01/2025 3:30 PM ESTTelemedicine [facility] Gy[facility] Oncology, A Department of [address] [place] [address] Annita Patton, BREAD STACKER-INHALATION THERAPY TEACHER [address] [place] [address], [address] [place] [address] 08/30/2025 10:30 AM ESTInfusion Paola Ellington [facility] - Medical Oncology [address] [place] [phone] 08/31/2025 8:30 AM ESTInfusion Paola [place] [facility] - Medical Oncology [address] [place] [phone] 09/10/2025 1:30 PM ESTOffice Visit [facility], A Department of [address] [place] [address] Annita Patton, BREAD STACKER-INHALATION THERAPY TEACHER [address] [place] [address], [address] [place] [address] 09/25/2025 10:00 AM ESTInfusion Paola Ellington [facility] - Medical Oncology [address] [place] [phone] 09/26/2025 8:00 AM ESTTelemedicine [facility] Gynecology Oncology, A Department of [address] [place] [address] Annita Patton, BREAD STACKER-INHALATION THERAPY TEACHER [address] [place] [address], [address] [place] [address] 09/26/2025 8:30 AM ESTInfusion [facility] - Medical Oncology [address] [place] [phone] documented as of this encounter Goals GoalPatient [...] Team MemberRelationshipSpecialtyStart DateEnd Date Bin Sidhu MD [address] [place] [address] PCP - GeneralFamily Hcgsqlwd50/9/25documented as of this encounter
--- OUTSIDE RECORDS SUMMARY | 2025-08-23 11:27 | XMS_ITS | Clinical Summary ---
Author Organization [facility] Address [address] [place], [place] [address] Care Team Providers Care Crab Picker Name Role Phone Bin Sidhu MD Primary Care Provider Allergies Active AllergyReactionsCriticalityNoted WlvhKziurzcrRdlmjZynkYfih13/31/2009 Medications MedicationSigDispense QuantityRefillsLast FilledStart DateEnd DateStatus TETRACYCLINE 500 MG CAP Indications:Knee joint pedl855ctive naproxen(NAPROSYN 500 MG TAB) Indications:Knee joint pain,Knee bursitis1 PPO BID with food 60 ctive Social History Tobacco UseTypesPacks/DayYears UsedDateSmoking Tobacco: Never Assessed CommentsUnknownSex and Gender InformationValueDate RecordedSex Assigned at Not on fileLegal QefQmauiz52/02/2012 8:21 AM ESTGender IdentityNot on fileSexual OrientationNot on file Plan of Treatment Health MaintenanceDue DateLast DoneCommentsAnxiety Jkfbomqhd16/05/1973Depression Fnktzkbdv09/05/1973Hepatitis C Xmxmzsqlr64/05/1973DTaP,Tdap,Td Vaccine (1 - Tdap)1974Mammogram Lrqjmxxas63/05/1995CT Uehrxmueordj76/05/2000Cologuard (FIT-DNA)03/31/20006916Hkufhdkurqy79/05/2000Colorectal Cancer Sumyeupwa58/05/2000 Diabetes Pmupcsldv63/05/2000Fecal Occult Blood2000Lipid Screening 03/31/20005328Wflquylscemiz78/05/2000Pneumococcal Vaccine: 50+ (1 of 1 - PCV) 2005Shingrix Vaccine (1 of 2)2005Bone Density Heyekpuzk03/05/2020 Advance Directive Nugduazfoq79/01/2025ovid-19 Vaccine ( - 2024-26 season) 2025Influenza Vaccine (#1)2025RSV Vaccine (1 - 1-dose 75+ series) 2030 Insurance Care Teams Team MemberRelationshipSpecialtyStart DateEnd Date Bin Sidhu MD [address] [place] [address] [facility]05/10/09
--- OUTSIDE RECORDS SUMMARY | 2025-08-23 11:27 | XMS_ITS | Encounter Summary ---
Author Organization [facility] tem Address [id number] [address] [place] [address] Care Team Providers Care Grey Tender Name Role Phone Bin Sidhu MD Primary Care Provider Encounter Details DateTypeDepartmentCare Team (Latest Contact Info)Kqodkaolsmq89/18/2025Telephone [facility] Gynecology Oncology, A Department of [facility] [address] [facility] [address] [place] [address] Christi Tsang, ERASMO Social History Tobacco UseTypesPacks/DayYears UsedDateSmoking Tobacco: NeverSmokeless Tobacco: NeverAlcohol UseStandard Drinks/WeekCommentsNever0 (1 standard drink = 0.6 oz pure alcohol)PHQ-2AnswerDate RecordedTotal Tkflb24610/04/2024UDIT-CAnswerDate RecordedQ1: How often do you have a [...] ValueDate RecordedSex Assigned at BirthNot on fileLegal EceNwturi50/08/2025 12:05 AM ESTGender IdentityNot on fileSexual OrientationNot on filedocumented as of this encounter Miscellaneous Notes * Telephone Encounter - Christi Tsang CMA - 08/14/2025 3:55 PM EST Moon, from [facility], called regarding wheelchair order that was received [...] either by themselves or with caregiver assistance. Swimmer to relay this information to the appropriate staff member(s) for further review. * Telephone Encounter - RE Fay - 08/14/2025 3:55 PM EST Yes we can put that eval documentation in our next progress note documented in this encounter Plan of Treatment DateTypeDepartmentCare Team (Latest Contact Info)Ggdtojgvrmq10/01/2025 3:30 PM ESTTelemedicine [facility], A Department of [address] [place] [phone] Annita Patton, LEAFLET DISTRIBUTOR-INTERNATIONAL AFFAIRS VICE PRESIDENT [address] [place] [address], [address] [facility] [place] [address] 08/30/2025 10:30 AM ESTInfusion [facility] - Medical Oncology [address] [place] [address], [place] [address] 08/31/2025 8:30 AM ESTInfusion [facility] - Medical Oncology [address] [place] [address], [place] [phone] 09/10/2025 1:30 PM ESTOffice Visit [facility], A Department of [address] [place] [address] Annita Patton, LEAFLET DISTRIBUTOR-INTERNATIONAL AFFAIRS VICE PRESIDENT [address] [place] [address], [address] [place] [address] 09/25/2025 10:00 AM ESTInfusion Paola [facility]ington [facility] - Medical Oncology [address] [place] [address], [place] [address] 09/26/2025 8:00 AM ESTTelemedicine [facility], A Department of [address] [place] [address] Annita Patton, LEAFLET DISTRIBUTOR-INTERNATIONAL AFFAIRS VICE PRESIDENT [address] [facility], [address] [place] [address] 09/26/2025 8:30 AM ESTInfusion Paola Ellington [facility] - Medical Oncology [address] [place] [phone] documented as of this encounter Goals GoalPatient Goal TypeAssociated ProblemsRecent ProgressPatient-Stated?Author return home GeneralYesMeek, Milagros, RN Note: Evaluation of progress towards goal: patient plans to return home with family support Autogenerated Goal Care PlanAutogenerated ProblemNoPotts, Elizabethdocumented as of this encounter Visit Diagnoses Not on filedocumented in this encounter Additional Health Concerns Active ProblemsNoted DateDiagnosed DateAutogenerated Sontwqi9908/10/2025ssessment Noted TimePHQ-9 Depression Total Score: 3:45 PM ESTdocumented as of this encounter Care Teams Team MemberRelationshipSpecialtyStart DateEnd Date Bin Sidhu MD [address] [place] [address] PCP - GeneralFamily Mcalpkpr52/9/25documented as of this encounter
--- OUTSIDE RECORDS SUMMARY | 2025-08-23 11:27 | XMS_ITS | Encounter Summary ---
Author Organization [facility] tem Address [id number] [address] [place] [address] Care Team Providers Care Home Care Assistant Name Role Phone Bin iSdhu MD Primary Care Provider [phone] Encounter Details DateTypeDepartmentCare Team (Latest Contact Info)Gswdjjhqaia61/19/2025Telephone [facility] Gynecology Oncology, A Department of [facility] [address] [facility] [address] [place] [address] Milagros Machado RN Social History Tobacco UseTypesPacks/DayYears UsedDateSmoking Tobacco: NeverSmokeless Tobacco: NeverAlcohol UseStandard Drinks/WeekCommentsNever0 (1 standard drink = 0.6 oz pure alcohol)PHQ-2AnswerDate RecordedTotal Cendd22810/04/2024UDIT-CAnswerDate RecordedQ1: How often do you have a [...] ValueDate RecordedSex Assigned at BirthNot on fileLegal JtjRnpblc96/08/2025 12:05 AM ESTGender IdentityNot on fileSexual OrientationNot on filedocumented as of this encounter Miscellaneous Notes * Telephone Encounter - Milagros Machado RN - 08/15/2025 4:04 PM EST Patient contacted office stating PET CT is scheduled for 08/28. Patient also stated that the RN she scheduled PET CT with advised her to try metamucil for her diarrhea. Clay Molder advised patient that metamucil is usually used for constipation but has been known to help with diarrhea as well and that she could try it it if she wanted to. Patient verbalized her understanding. documented in this encounter Plan of Treatment DateTypeDepartmentCare Team (Latest Contact Info)Fphmnahygrh50/01/2025 3:30 PM ESTTelemedicine [facility], A Department of [address] [place] [address] Annita Patton, LIAISON INSPECTION LABORATORY ASSISTANT-DISTRIBUTION SYSTEMS SUPERINTENDENT [address] [place] [address], [address] [place] [address] 08/30/2025 10:30 AM ESTInfusion Paola L Payette [facility] - Medical Oncology [address] [place] [address], [place] [address] 08/31/2025 8:30 AM ESTInfusion Paola Ellington [facility] - Medical Oncology [address] [place] [address], [place] [address] 09/10/2025 1:30 PM ESTOffice Visit [facility], A Department of [address] [place] [address] Annita Patton, LIAISON INSPECTION LABORATORY ASSISTANT-[address], [address] [place] [address] 09/25/2025 10:00 AM ESTInfusion Paola Ellington [facility] - Medical Oncology [address] [place] [phone] 09/26/2025 8:00 AM ESTTelemedicine [facility], A Department of [address] [place] [address] Annita Patton, LIAISON INSPECTION LABORATORY ASSISTANT-DISTRIBUTION SYSTEMS SUPERINTENDENT [address] [place] [address], [address] [place] [address] 09/26/2025 8:30 AM ESTInfusion Paola Ellington [facility] - Medical Oncology [address] [place] [phone] documented as of this encounter Goals GoalPatient Goal TypeAssociated ProblemsRecent ProgressPatient-Stated?Author return home Milagros Escobedo RN Note: Evaluation of progress towards goal: patient plans to return home with family support Autogenerated Goal Care PlanAutogenerated ProblemNoPotts, Elizabethdocumented as of this encounter Visit Diagnoses Not on filedocumented in this encounter Additional Health Concerns Active ProblemsNoted DateDiagnosed DateAutogenerated Xxbvktg1308/10/2025ssessment Noted TimePHQ-9 Depression Total Score: 3:45 PM ESTdocumented as of this encounter Care Teams Team MemberRelationshipSpecialtyStart DateEnd Date Bin Sidhu MD [address] [place] [address] PCP - GeneralFamily Mjgfwegj97/9/25documented as of this encounter
--- OUTSIDE RECORDS SUMMARY | 2025-08-23 11:27 | XMS_ITS | Encounter Summary ---
Author Organization [facility] tem Address [id number] [address] [place] [address] Care Team Providers Care Manager Intelligence Name Role Phone Bin Sidhu MD Primary Care Provider [phone] Encounter Details DateTypeDepartmentCare Team (Latest Contact Info)Tehbwkkabec84/17/2025Telephone [facility] Gynecology Oncology, A Department of [facility] [address] [facility] [address] [place] [address] Milagros Machado RN Social History Tobacco UseTypesPacks/DayYears UsedDateSmoking Tobacco: NeverSmokeless Tobacco: NeverAlcohol UseStandard Drinks/WeekCommentsNever0 (1 standard drink = 0.6 oz pure alcohol)PHQ-2AnswerDate RecordedTotal Wfhav08010/04/2024UDIT-CAnswerDate RecordedQ1: How often do you have a [...] ValueDate RecordedSex Assigned at BirthNot on fileLegal SdrAaqypr83/08/2025 12:05 AM ESTGender IdentityNot on fileSexual OrientationNot on filedocumented as of this encounter Miscellaneous Notes * Telephone Encounter - Milagros Machado RN - 08/13/2025 1:47 PM EST Perfect Bind Machine Operator contacted patient and advised her she can take 50 mg benadryl 1 hour [address] to PET [address] to decrease risk of reaction per Melinda Coffey. Patient verbalized her understanding and states she will use OTC benadryl. She is aware that she will need a pick up driver. documented in this encounter Plan of Treatment DateTypeDepartmentCare Team (Latest Contact Info)Qmtimvtvzny02/01/2025 3:30 PM ESTTelemedicine [facility], A Department of [address] [place] [address] Annita Patton, HIGH REACH OPERATOR-SOUBRETTE [address] [place] [address], [address] [place] [address] 08/30/2025 10:30 AM ESTInfusion [facility] - Medical Oncology [address] [place] [address] 08/31/2025 8:30 AM ESTInfusion Paola Ellington [facility] - Medical Oncology [address] [place] [address], [place] [address] 09/10/2025 1:30 PM ESTOffice Visit [facility], A Department of [address] [place] [address] Annita Patton, HIGH REACH OPERATOR-[address], [address] [place] [address] 09/25/2025 10:00 AM ESTInfusion Paola Ellington [facility] Medical Oncology [address] [place] [address], [place] [address] 09/26/2025 8:00 AM ESTTelemedicine [facility], A Department of [address] [place] [address] Annita Patton, HIGH REACH OPERATOR[address], [address] [place] [address] 09/26/2025 8:30 AM ESTInfusion Paola Ellington [facility] Medical Oncology [address] [place] [phone] documented as of this encounter Goals GoalPatient Goal TypeAssociated ProblemsRecent ProgressPatient-Stated?Author return home Milagros Escobedo RN Note: Evaluation of progress towards goal: patient plans to return home with family support Autogenerated Goal Care PlanAutogenerated ProblemNoPotts, Elizabethdocumented as of this encounter Visit Diagnoses Not on filedocumented in this encounter Additional Health Concerns Active ProblemsNoted DateDiagnosed DateAutogenerated Ibhmxyj1508/10/2025ssessment Noted TimePHQ-9 Depression Total Score: 3:45 PM ESTdocumented as of this encounter Care Teams Team MemberRelationshipSpecialtyStart DateEnd Date Bin Sidhu MD [address] [place] [address] PCP - GeneralFamily Lwjrvjxb47/9/25documented as of this encounter
--- OUTSIDE RECORDS SUMMARY | 2025-08-23 11:27 | XMS_ITS | Encounter Summary ---
Author Organization [facility] tem Address [id number] [address] [place] [address] Care Team Providers Care Motorcycle Racer Name Role Phone Bin Sidhu MD Primary Care Provider [phone] Encounter Details DateTypeDepartmentCare Team (Latest Contact Info)Ctlfexkgeib56/14/2025Telephone [facility] Oncology, A Department of [facility] [address] [facility] [address] [place] [address] Milagros Machado RN Social History Tobacco UseTypesPacks/DayYears UsedDateSmoking Tobacco: NeverSmokeless Tobacco: NeverAlcohol UseStandard Drinks/WeekCommentsNever0 (1 standard drink = 0.6 oz pure alcohol)PHQ-2AnswerDate RecordedTotal Uviot96810/04/2024UDIT-CAnswerDate RecordedQ1: How often do you have a [...] ValueDate RecordedSex Assigned at BirthNot on fileLegal KoeMycvnh48/08/2025 12:05 AM ESTGender IdentityNot on fileSexual OrientationNot [...] level [] Language barrier. Patient speaks: [] Press [employer] present. [] Anxiety [] Cognitive barriers [...] of Treatment: [] Oral, patient's home [] [facility] [] [facility] ([place]) [] [facility] [] [facility] [x] [facility] [] [facility] [place] [] [facility] Inpatient Unit [] [facility] Interventional Radiology [] [facility] [] [facility] [] [facility] [] [facility]fusion [facility] [] [facility] Inpatient [facility] [] [facility] Interventional Radiology [x] The patient was instructed [...] Medications [x] The patient was instructed to pick pulling machine tender prescriptions prior to starting treatment. Supportive care [...] [x] Office and emergency Contact Information [] [facility]: A Guide to Living with Cancer* [x] OncoLink Antineoplastic Agent drug information [] Lexicomp Antineoplastic drug information [] NCCN Disease Specific Information (type in name): [] Neutropenia Wallet Card [] Immunotherapy Wallet Card [] Emla Cream Wallet Card [] Chemotherapy Calendar [] In addition to the side effect information included in the [facility] Guidebook, I have provided the patient with [...] dose, and frequency [x] Short and intermediate frame tender side effects, including indications to notify provider [...] family [x] Time spent: 90 minutes *[facility] [place]: A Guide to Living with Cancer ?? [...] Plan of Treatment DateTypeDepartmentCare Team (Latest Contact Info)Rinbnpdiqkz83/01/2025 3:30 PM ESTTelemedicine [facility], A Department of [address] [place] [address] Annita Patton, ORE CRUSHER-ADVICE NURSE [address] [place] [address], [address] [place] [address] 08/30/2025 10:30 AM ESTInfusion [facility]ola [facility] [place] - Medical Oncology [address] [place] [phone] 08/31/2025 8:30 AM ESTInfusion Paola [facility] [place] [facility] - Medical Oncology [address] [place] [address] 09/10/2025 1:30 PM ESTOffice Visit [facility], A Department of [address] [place] [address] Annita Patton, ORE CRUSHER-ADVICE NURSE [address] [place] [address], [address] [place] [address] 09/25/2025 10:00 AM ESTInfusion Paola [facility]ington [facility] - Medical Oncology [address] [place] [phone] 09/26/2025 8:00 AM ESTTelemedicine [facility], A Department of [facility] [address] [facility] [address] [place] [address] Annita Patton, ORE CRUSHER-ADVICE NURSE [address] [facility], [address] [place] [address] 09/26/2025 8:30 AM ESTInfusion [facility] [address] [place] [address] documented as of this encounter Goals GoalPatient Goal TypeAssociated ProblemsRecent ProgressPatient-Stated?Author return home Milagros Escobedo RN Note: Evaluation of progress towards goal: patient plans to return home with family support Autogenerated Goal Care PlanAutogenerated ProblemNoPotts, Elizabethdocumented as of this encounter Visit Diagnoses Diagnosis Endometrial cancer determined by uterine biopsy ([facility])- Primary Port-A-Cath in place documented in this encounter Additional Health Concerns Active ProblemsNoted DateDiagnosed DateAutogenerated Hirikyb86/14/2025Assessment Noted TimePHQ-9 Depression Total Score: 3:45 PM ESTdocumented as of this encounter Care Teams Team MemberRelationshipSpecialtyStart DateEnd Date Bin Sidhu MD [address] [place] [address] PCP - GeneralFamily Osgaaohk77/9/25documented as of this encounter
--- OUTSIDE RECORDS SUMMARY | 2025-08-23 11:27 | XMS_ITS | Encounter Summary ---
Author Organization [facility] tem Address [id number] [address] [place] [address] Care Team Providers Care Bench Lathe Operator Name Role Phone Bin Sidhu MD Primary Care Provider [phone] Encounter Details DateTypeDepartmentCare Team (Latest Contact Info)Nkcnrskzpev58/25/2025Tumor Conference [facility] Gynecology Oncology, A Department of [address] [place] [address] Annita Patton, ASSISTANT ACCOUNT MANAGER-MACHINIST OUTSIDE [address] [place] [address], [address] [place] [address] Social History Tobacco UseTypesPacks/DayYears UsedDateSmoking Tobacco: NeverSmokeless Tobacco: NeverAlcohol UseStandard Drinks/WeekCommentsNever0 (1 standard drink = 0.6 oz pure alcohol)PHQ-2AnswerDate RecordedTotal Widsn78110/04/2024UDIT-CAnswerDate RecordedQ1: How often do you have a [...] ValueDate RecordedSex Assigned at BirthNot on fileLegal IjpXycrht47/08/2025 12:05 AM ESTGender IdentityNot on fileSexual OrientationNot on filedocumented as of this encounter Miscellaneous Notes * Tumor Conference Note - Annita Patton APRN-MACHINIST OUTSIDE - 08/21/2025 10:29 AM EST Images from the original note were not included. Multidisciplinary Cancer Conference Center Note Patient Name: Eunice Anderson : 1955 Conference Type:CONTRACTS ATTORNEY Conference Date: 08/21/25 Patient's Care Team: Patient Care Team: Bin Sidhu MD as PCP - General (Family Medicine) Milagros Machado RN as Registered Nurse (Gynecologic Oncology) Rocio Alexander MD as Consulting Physician (Obstetrics & Gynecology) Dennis Monson MD as Referring Physician (Gynecologic Oncology) RE Fay as Physician Canvas Repairer (Gynecologic Oncology) Physicians in attendance: Corey Mcdaniel Ali, Forquer Site/Laterality/Histology: Uterus Patient Presentation: Eunice Anderson is a 70 y.o. female who presented as transport from [facility] for vaginal bleeding. Patient reports vaginal spotting that began 2 days ago. Patient underwent D&C on 08/04/25, pathology w endometrioid carcinoma, grade 2. Patient continued to have vaginal bleeding and decision was made to take patient back for definitive surgery to stop vaginal bleeding on 08/07/25 w Robotically assisted laparoscopic hysterectomy, bilateral salpingo-oophorectomy, left ureterolysis, radical intraperitoneal tumor debulking with peritoneal stripping in the pelvis, flexible sigmoidoscopy. Cancer Staging At least stage IIIB2 endometrioid carcinoma, grade 2, loss of MLH1 / PMS2 Residual disease post surgery Recommendations: carboplatin / paclitaxel + immunotherapy, WPRT, hypermethalation. Based on the information discussed during the conference, the following should be considered: Additional Work-up: []CT Scan []PET []MRI []Chest X-ray []Tumor Marker: []Bone Scan []KUB []US []Mammogram []HPV []Endoscopy []EBUS []EUS []Pathology []Other: Trials Available: No For trial specifics or questions regarding trials, Please call Clinical Research at [phone] National Guidelines discussed (NCCN, AUA, NCI, etc): Yes Consults to consider: [] Surgery [] Plastics [] Hem/Onc [] Rad/Onc [] Physical RX [] Oncofertilty [] Physical Therapy/Rehab []Psychosocial Services [] Nutrition [] Genetics [] Palliative Care [] Other: Physician Moderator: Ermias Date: 08/21/25 This summary of the conference discussion is based on information available during conference presentation Questions can be directed to the Cancer Registry: [phone] documented in this encounter Plan of Treatment DateTypeDepartmentCare Team (Latest Contact Info)Gbvysaklovu39/01/2025 3:30 PM ESTTelemedicine [facility], A Department of [address] [place] [address] Annita Patton APRN-CNP [address] [place] [address], [address] [place] [address] 08/30/2025 10:30 AM ESTInfusion Paola Ellington [facility] - Medical Oncology [address] [place] [address], [place] [address] 08/31/2025 8:30 AM ESTInfusion Paola Ellington [facility] - Medical Oncology [address] [place] [address], [place] [address] 09/10/2025 1:30 PM ESTOffice Visit [facility], A Department of [address] [place] [address] [place] [address] Annita Patton, [address], [address] [place] [address] 09/25/2025 10:00 AM ESTInfusion Paola Ellington [facility] - Medical Oncology [address] [place] [phone] 09/26/2025 8:00 AM ESTTelemedicine [facility], A Department of [address] [place] [address] [place] [address] Annita Patton, [address], [address] [place] [address] 09/26/2025 8:30 AM ESTInfusion Paola Ellington [facility] - Medical Oncology [address] [place] [phone] documented as of this encounter Goals GoalPatient Goal TypeAssociated ProblemsRecent ProgressPatient-Stated?Author return home Milagros Escobedo RN Note: Evaluation of progress towards goal: patient plans to return home with family support Autogenerated Goal Care PlanAutogenerated ProblemNoPotts, Elizabethdocumented as of this encounter Visit Diagnoses Not on filedocumented in this encounter Additional Health Concerns Active ProblemsNoted DateDiagnosed DateAutogenerated Bwylfqj14/14/2025Assessment Noted TimePHQ-9 Depression Total Score: 3:45 PM ESTdocumented as of this encounter Care Teams Team MemberRelationshipSpecialtyStart DateEnd Date Bin Sidhu MD [address] [place] [address] PCP - GeneralFamily Pspxmqoq26/9/25documented as of this encounter
--- OUTSIDE RECORDS SUMMARY | 2025-08-23 11:27 | XMS_ITS | Encounter Summary ---
Author Organization [facility] tem Address [facility] [place]-[id number] [address] [place] [address] Care Team Providers Care Commercial Front Load Driver Name Role Phone Bin Sidhu MD Primary Care Provider [phone] Reason for Referral * Consultation (Routine) - Pending ReviewSpecialtyDiagnoses / ProceduresReferred By ContactReferred To Contact Diagnoses Endometrial cancer determined by uterine biopsy ([facility]) Melinda Coffey PA [address] [place] [address] Phone: tel: fax: Referral IDStatusReasonStart DateExpiration DateVisits RequestedVisits [id number] Review Service Not Available In-House Encounter Details DateTypeDepartmentCare Team (Latest Contact Info)Lcjrrrnwskt82/18/2025Orders Only [facility] Gynecology Oncology, A Department of [facility] [address] [place] [address] Milagros Machado RN Endometrial cancer determined by uterine biopsy ([facility]) (Primary Dx) Social History Tobacco UseTypesPacks/DayYears UsedDateSmoking Tobacco: NeverSmokeless Tobacco: NeverAlcohol UseStandard Drinks/WeekCommentsNever0 (1 standard drink = 0.6 oz pure alcohol)PHQ-2AnswerDate RecordedTotal Agzui80710/04/2024UDIT-CAnswerDate RecordedQ1: How often do you have a [...] ValueDate RecordedSex Assigned at BirthNot on fileLegal OxvKrwjxn60/08/2025 12:05 AM ESTGender IdentityNot on fileSexual OrientationNot on filedocumented as of this encounter Progress Notes * Milagros Machado RN - 08/14/2025 12:12 PM EST Palliative care order, face sheet, and progress notes faxed to [facility]. Order for wheelchair, face sheet, and progress note faxed to [facility] in [place]. documented in this encounter Plan of Treatment DateTypeDepartmentCare Team (Latest Contact Info)Nzovbzwmoda79/01/2025 3:30 PM ESTTelemedicine [facility], A Department of [address] [place] [phone] Annita Patton, INDUSTRIAL PSYCHOLOGY TEACHER-COMPUTING TUTOR [address] [place] [address], [address] [place] [address] 08/30/2025 10:30 AM ESTInfusion Paola L Chandana [facility] - Medical Oncology [address] [place] [address], [place] [phone] 08/31/2025 8:30 AM ESTInfusion Paola L Chandana [facility] - Medical Oncology [address] [place] [address], [place] [phone] 09/10/2025 1:30 PM ESTOffice Visit [facility], A Department of [address] [place] [phone] Annita Patton, INDUSTRIAL PSYCHOLOGY TEACHER-COMPUTING TUTOR [address] [place] [address], [address] [place] [address] 09/25/2025 10:00 AM ESTInfusion Paola Steve Chandana [facility] - Medical Oncology [address] [place] [address], [place] [phone] 09/26/2025 8:00 AM ESTTelemedicine [facility], A Department of [address] [place] [phone] Annita Patton, INDUSTRIAL PSYCHOLOGY TEACHER-COMPUTING TUTOR [address] [facility], [address] [place] [address] 09/26/2025 8:30 AM ESTInfusion Paola Steve Chandana [facility] - Medical Oncology [address] [place] [place] [address], [place] [phone] NameTypePriorityAssociated DiagnosesOrder ScheduleAmbulatory referral to Palliative Medicine Home Visits (Non-[facility])Outpatient ReferralRoutine Endometrial cancer determined by uterine biopsy ([facility]) 1 Occurrences starting 08/14/2025 until 08/14/2026documented as of this encounter Goals GoalPatient Goal TypeAssociated ProblemsRecent ProgressPatient-Stated?Author return home Milagros Escobedo RN Note: Evaluation of progress towards goal: patient plans to return home with family support Autogenerated Goal Care PlanAutogenerated ProblemNoPotts, Elizabethdocumented as of this encounter Visit Diagnoses Diagnosis Endometrial cancer determined by uterine biopsy ([facility])- Primary documented in this encounter Additional Health Concerns Active ProblemsNoted DateDiagnosed DateAutogenerated Qxwnldv97/14/2025Assessment Noted TimePHQ-9 Depression Total Score: 3:45 PM ESTdocumented as of this encounter Care Teams Team MemberRelationshipSpecialtyStart DateEnd Date Bin Sidhu MD [address] [place] [address] PCP - GeneralFamily Oebcspnf06/9/25documented as of this encounter
[2025-08-23 11:35] LABS: Hematocrit 31.9 % (36.0-48.0); Hemoglobin 10.0 g/dL (12.0-16.0); Immature Granulocytes Abs Auto 0.05 10^3/uL (0.00-0.03); Immature Granulocytes Pct Auto 0.4 % (0.0-0.5); Lymphocytes Absolute Auto 1.4 10^3/uL (1.2-3.8); Mean Corpuscular HGB Conc 31.3 g/dL (29.9-35.2); Mean Corpuscular Hemoglobin 28.4 pg (26.7-34.0); Mean Corpuscular Volume 90.6 fL (81.0-99.0); Platelet Count 642 10^3/uL (150-450); Red Blood Count 3.52 10^6/uL (4.20-5.40); White Blood Count 12.0 10^3/uL (4.0-11.0)
== END 2025-08-23 11:23 | disposition home or self-care (01) ==
LOC: LAB 11:22
DX: D64.9 Anemia, unspecified (principal); E87.8 Other disorders of electrolyte and fluid balance, not elsewhere classified
CPT/HCPCS: 36415; 80053; 85025

== ENCOUNTER 2025-08-24 17:04 | Outpatient (REF) | payer MEDICARE, OTHER, SELFPAY ==
--- OUTSIDE RECORDS SUMMARY | 2025-08-16 15:00 | XMS_ITS | Encounter Summary ---
Author Organization [facility] tem Address [id number] [address] [place] [address] Care Team Providers Care Photographer Apprentice Lithographic Name Role Phone Bin Sidhu MD Primary Care Provider [phone] Encounter Details DateTypeDepartmentCare Team (Latest Contact Info)Iyhlllyorat86/20/2025 3:00 PM ESTProcedure visit [facility] [address] [place] [address] Preop examination (Primary Dx); Anemia, unspecified type Social History Tobacco UseTypesPacks/DayYears UsedDateSmoking Tobacco: NeverSmokeless Tobacco: NeverAlcohol UseStandard Drinks/WeekCommentsNever0 (1 standard drink = 0.6 oz pure alcohol)PHQ-2AnswerDate RecordedTotal Wczxd04610/04/2024UDIT-CAnswerDate RecordedQ1: How often do you have a [...] ValueDate RecordedSex Assigned at BirthNot on fileLegal TesLzyevs96/08/2025 12:05 AM ESTGender IdentityNot on fileSexual OrientationNot on filedocumented as of this encounter Last Filed Vital Signs Vital SignReadingTime TakenCommentsBlood Pressure--Pulse--Temperature-- Respiratory Rate--Oxygen Saturation--Inhaled Oxygen Concentration--Kiavcy25.3 kg (155 lb)08/16/2025 3:27 PM OTYKnjdqj104.5 cm (5' 2 )08/16/2025 3:27 PM ESTBody [...] in at the main lobby of the [facility]- registration desk is straight ahead as soon as you walk in. Tell them you are here for surgery. 2. If you have a Living Will/Durable Power of Light Rail Vehicle Operator for Health Care that is not [...] after you have bathed. 5. NO nail somali/acrylic on at least one finger. If you are having a hand, wrist or foot surgery then all nail somali and artificial/acrylic nails must be removed from [...] please call the Preadmission Testing office at [phone], Mon.-Fri. 7 a.m.-3 p.m. Leave a voicemail [...] in at the main lobby of the [facility]- registration desk is straight ahead as soon as you walk in. Tell them you are here for surgery. 2. If you have a Living Will/Durable Power of Light Rail Vehicle Operator for Health Care that is not [...] after you have bathed. 5. NO nail somali/acrylic on at least one finger. If you are having a hand, wrist or foot surgery then all nail somali and artificial/acrylic nails must be removed from [...] please call the Preadmission Testing office at [phone], Mon.-Fri. 7 a.m.-3 p.m. Leave a voicemail [...] Plan of Treatment DateTypeDepartmentCare Team (Latest Contact Info)Hsttgygfmde79/01/2025 3:30 PM ESTTelemedicine [facility], A Department of [address] [place] [address] Annita Patton, DIE MAKER STAMPING-SCALPING MACHINE OPERATOR [address] [place] [address], [address] [place] [address] 08/30/2025 10:30 AM ESTInfusion [facility]ola [facility] - Medical Oncology [address] [place] [phone] 08/31/2025 8:30 AM ESTInfusion Paola Ellington [facility] - Medical Oncology [address] [place] [phone] 09/10/2025 1:30 PM ESTOffice Visit [facility], A Department of [address] [place] [phone] Annita Patton, DIE MAKER STAMPING[address], [address] [place] [address] 09/25/2025 10:00 AM ESTInfusion Paola Ellington [facility] - Medical Oncology [address] [place] [address], [place] [phone] 09/26/2025 8:00 AM ESTTelemedicine [facility], A Department of [address] [place] [address] Annita Patton, DIE MAKER STAMPING[address], [address] [place] [address] 09/26/2025 8:30 AM ESTInfusion Paola Ellington [facility] - Medical Oncology [address] [place] [phone] documented as of this encounter Goals GoalPatient Goal TypeAssociated ProblemsRecent ProgressPatient-Stated?Author return home Milagros Escobedo RN Note: Evaluation of progress towards goal: patient plans to return home with family support Autogenerated Goal Care PlanAutogenerated ProblemNoPotts, Elizabethdocumented as of this encounter Results * (ABNORMAL) Basic Metabolic Panel (08/16/2025 3:52 PM EST)ComponentValueRef RangeTest MethodAnalysis TimePerformed AtPathologist KralzpneeNUHLJB108216 - 146 mmol/L110/16/2024 4:17 PM ESTPROMEDICA MERCY HOSPITAL BAKERSFIELDPOTASSIUM 2.6(LL)3.5 - 5.0 mmol/L110/16/2024 4:17 PM ESTMEM[facility]IAL [facility] HOSPITALCHLORIDE10398 - 109 mmol/L110/16/2024 4:17 PM ESTMEM[facility]IAL [facility] HOSPITALCARBON HPUKBSE0557 - 32 mmol/L110/16/2024 4:17 PM ESTMEM[facility]IAL [facility] MEM[facility] HOSPITALANION JMB255 - 15 mmol/L110/16/2024 4:17 PM EST [facility]OSPITALBLOOD UREA XVRTFRIW061 - 27 mg/dL08/16/2025 4:17 PM ESTMEMORIAL [facility]TA MEM[facility] HOSPITALCREATININE0.700.40 - 1.00 mg/dL 08/16/2025 4:17 PM [facility]Comment:METHOD TRACEABLE TO IDMS CTPHMXEUKOUIIXP647(H)65 - 99 mg/dL08/16/2025 4:17 PM EST [facility] HOSPITALCALCIUM8.58.5 - 10.5 mg/dL08/16/2025 4:17 PM [facility]EGFR Non-Race Dependent>90>=60 ml/min/1.73sq.m110/16/2024 4:17 PM [facility] Comment: Reported eGFR is based on the CKD-EPI 2020 equation that does not use a race coefficient. Specimen (Source)Anatomical Location / LateralityCollection Method / Volume Collection TimeReceived TimeBloodVenous blood / UnknownVenipuncture / Unknown 08/16/2025 3:52 PM EST08/16/2025 3:52 PM EST Narrative Authorizing ProviderResult TypeResult StatusDaviquiana Angulo MDLAB BLOOD ORDERABLESFinal ResultPerforming OrganizationAddressCity/State/ZIP CodePhone Number [facility] [address] [place] [address], * (ABNORMAL) CBC auto differential (08/16/2025 3:52 PM EST)ComponentValueRef RangeTest MethodAnalysis TimePerformed AtPathologist SamgfxygaUXY99.6(H)4 - 11 10^9/L110/16/2024 4:45 PM ESTMEMORIAL HEALTH [facility] MARIETTA MEMORIAL HOSPITALRBC Count4.06 3.8 - 5.2 10^12/L11/ 4:45 PM [facility] Cqemoeotww62.4(L)11.7 - 15.5 g/dL08/16/2025 4:45 PM [facility] REHABILITATIONHematocrit34.4(L)35 - 47 %08/16/2025 4:45 PM [facility]ABIL[facility]ATIONMCV8580 - 100 fL08/16/2025 4:45 PM [facility] REHABILITATIONMCH28.027 - 34 pg08/16/2025 4:45 PM [facility] REHABILITATIONMCHC33.032 - 36 g/dL08/16/2025 4:45 PM [facility] REHABILITATIONRDW16.6(H)11.5 - 15 %08/16/2025 4:45 PM [facility] REHABILITATIONPlatelet Zhxvo412(H)150 - 450 10^9/L110/16/2024 4:45 PM [facility] REHABIL[facility]ATIONMPV8.07 - 12 fL08/16/2025 4:45 PM EST [facility] HOSPITALBands %8%08/16/2025 4:45 PM [facility]ATIONComment:This is an appended report. These results have been appended to a previously preliminary verified report.Neutrophils %81 %08/16/2025 4:45 PM [facility]ATIONComment:This is an appended report. These results have been appended to a previously preliminary verified report.Lymphocytes %4%08/16/2025 4:45 PM [facility]ATIONComment:This is an appended report. These results have been appended to a previously preliminary verified report.Monocytes %7%08/16/2025 4:45 PM [facility]ATIONComment:This is an appended report. These results have been appended to a previously preliminary verified report.Neutrophils Absolute (M)27.3(H)1.5 - 6.6 10^9/L110/16/2024 4:45 PM EST [facility] HOSPITALComment:This is an appended report. These results have been appended to a previously preliminary verified report. Lymphocytes Absolute1.21.0 - 3.5 10^9/L110/16/2024 4:45 PM ESTMEMORIAL HEALTH [facility] MARIETTA MEMORIAL HOSPITALComment:This is an appended report. These results have been appended to a previously preliminary verified report.Monocytes Absolute2.1(H) 0.0 - 0.9 10^9/L110/16/2024 4:45 PM [facility] Comment:This is an appended report. These results have been appended to a previously preliminary verified report.Polychromasia1+08/16/2025 4:45 PM EST [facility]OSPITALComment:This is an appended report. These results have been appended to a previously preliminary verified report. Elliptocytes1+08/16/2025 4:45 PM ESTMEM[facility] Comment:This is an appended report. These results have been appended to a previously preliminary verified report.Stomatocytes1+08/16/2025 4:45 PM EST [facility]ITALComment:This is an appended report. These results have been appended to a previously preliminary verified report. Differential TypeMANUAL HBEDNLOFZXBC72/20/2025 4:45 PM [facility]Comment:This is an appended report. These results have been appended to a previously preliminary verified report.Specimen (Source) Anatomical Location / LateralityCollection Method / VolumeCollection Time Received TimeBloodVenous blood / UnknownVenipuncture / Zvvaqcb5908/16/2025 3:52 PM EST08/16/2025 3:52 PM EST Narrative Authorizing ProviderResult TypeResult StatusDaapollo Angulo MDLAB BLOOD ORDERABLESFinal ResultPerforming OrganizationAddressCity/State/ZIP CodePhone Number [facility] [address] [place] [address], documented in this encounter Visit Diagnoses Diagnosis Preop examination- Primary Unspecified pre-operative examination Anemia, unspecified type documented in this encounter Additional Health Concerns Active ProblemsNoted DateDiagnosed DateAutogenerated Nxoasfb13/14/2025Assessment Noted TimePHQ-9 Depression Total Score: 3:45 PM ESTdocumented as of this encounter Care Teams Team MemberRelationshipSpecialtyStart DateEnd Date Bin Sidhu MD [address] [place] [address] PCP - GeneralFamily Rfkbakdd21/9/25documented as of this encounter
--- OUTSIDE RECORDS SUMMARY | 2025-08-24 17:09 | XMS_ITS | Encounter Summary ---
Author Organization [facility] tem Address [facility] [id number] [address] [place] [address] Care Team Providers Care Chick Grader Name Role Phone Bin Sidhu MD Primary Care Provider [phone] Encounter Details DateTypeDepartmentCare Team (Latest Contact Info)Tftclllpahh25/21/2025Telephone [facility] Gynecology Oncology, A Department of [facility] [address] [facility] [address] [place] [address] Milagros Machado RN Social History Tobacco UseTypesPacks/DayYears UsedDateSmoking Tobacco: NeverSmokeless Tobacco: NeverAlcohol UseStandard Drinks/WeekCommentsNever0 (1 standard drink = 0.6 oz pure alcohol)PHQ-2AnswerDate RecordedTotal Gjyzs66210/04/2024UDIT-CAnswerDate RecordedQ1: How often do you have a [...] ValueDate RecordedSex Assigned at BirthNot on fileLegal KhnKeiymt72/08/2025 12:05 AM ESTGender IdentityNot on fileSexual OrientationNot on filedocumented as of this encounter Miscellaneous Notes * Telephone Encounter - Milagros Machado RN - 08/17/2025 10:37 AM EST supervisor securities vault with [facility] general surgery [facility] Heel Burnisher attempted to return call, VM left stating office received VM and they could call iftheir were additional questions or concerns. Per notes, patient was admitted with dx of C. Diff. documented in this encounter Plan of Treatment DateTypeDepartmentCare Team (Latest Contact Info)Muzasbbkdyw49/01/2025 3:30 PM ESTTelemedicine [facility] Gyne[facility] Oncology, A Department of [address] [place] [address] Annita Patton, BANK VAULT ATTENDANT-REAL ESTATE DEVELOPMENT MANAGER [address] [facility], [address] [place] [address] 08/30/2025 10:30 AM ESTInfusion [facility] - Medical Oncology [address] [place] [address], [place] [address] 08/31/2025 8:30 AM ESTInfusion Paola [facility] - Medical Oncology [address] [place] [address], [place] [address] 09/10/2025 1:30 PM ESTOffice Visit [facility] Gyne[facility]cology, A Department of [address] [place] [phone] Annita Patton, BANK VAULT ATTENDANT-[address], [address] [place] [address] 09/25/2025 10:00 AM ESTInfusion Paola [place] [facility] - Medical Oncology [address] [place] [address], [place] [address] 09/26/2025 8:00 AM ESTTelemedicine [facility], A Department of [address] [place] [address] Annita Patton, BANK VAULT ATTENDANT-[address], [address] [place] [address] 09/26/2025 8:30 AM ESTInfusion Paola [place] [facility] - Medical Oncology [address] [place] [phone] documented as of this encounter Goals GoalPatient Goal TypeAssociated ProblemsRecent ProgressPatient-Stated?Author return home Milagros Escobedo RN Note: Evaluation of progress towards goal: patient plans to return home with family support Autogenerated Goal Care PlanAutogenerated ProblemNoPotts, Elizabethdocumented as of this encounter Visit Diagnoses Not on filedocumented in this encounter Additional Health Concerns Active ProblemsNoted DateDiagnosed DateAutogenerated Vbavyby9008/10/2025ssessment Noted TimePHQ-9 Depression Total Score: 3:45 PM ESTdocumented as of this encounter Care Teams Team MemberRelationshipSpecialtyStart DateEnd Date Bin Sidhu MD [address] [id number] PCP - GeneralFamily Wgbwuxkp47/9/25documented as of this encounter
--- OUTSIDE RECORDS SUMMARY | 2025-08-24 17:09 | XMS_ITS | Encounter Summary ---
Author Organization [facility] tem Address [facility]-[id number] [address] [place] [address] Care Team Providers Care School Cafeteria Cook Head Name Role Phone Bin Sidhu MD Primary Care Provider [phone] Encounter Details DateTypeDepartmentCare Team (Latest Contact Info)Gegfvkzfmkm41/14/2025Orders Only [facility] Gynecology Oncology, A Department of [facility] [address] [facility] [address] [place] [address] Desmond Martin RN Social History Tobacco UseTypesPacks/DayYears UsedDateSmoking Tobacco: NeverSmokeless Tobacco: NeverAlcohol UseStandard Drinks/WeekCommentsNever0 (1 standard drink = 0.6 oz pure alcohol)PHQ-2AnswerDate RecordedTotal Nmwsm62010/04/2024UDIT-CAnswerDate RecordedQ1: How often do you have a [...] ValueDate RecordedSex Assigned at BirthNot on fileLegal NfuRzsodo90/08/2025 12:05 AM ESTGender IdentityNot on fileSexual OrientationNot on filedocumented as of this encounter Progress Notes * Desmond Martin RN - 08/10/2025 11:08 AM EST Clinicals faxed to [facility] at [phone]. documented in this encounter Plan of Treatment DateTypeDepartmentCare Team (Latest Contact Info)Ugbnexwbdpz69/01/2025 3:30 PM ESTTelemedicine [facility] Gyne[facility] Oncology, A Department of [address] [place] [phone] Annita Patton, SUPERVISOR MALT HOUSE-OFFICE EXECUTIVE [address] [place] [address], [address] [place] [address] 08/30/2025 10:30 AM ESTInfusion Paola [place] [facility] - Medical Oncology [address] [place] [phone] 08/31/2025 8:30 AM ESTInfusion Paola [place] [facility] - Medical Oncology [address] [place] [phone] 09/10/2025 1:30 PM ESTOffice Visit [facility]ne[facility]cology, A Department of [address] [place] [phone] Annita Patton, SUPERVISOR MALT HOUSE-OFFICE EXECUTIVE [address] [facility], [address] [place] [address] 09/25/2025 10:00 AM ESTInfusion [facility] [address] [place] [phone] 09/26/2025 8:00 AM ESTTelemedicine [facility] Gyne[facility] Oncology, A Department of [address] [place] [address] Annita Patton, SUPERVISOR MALT HOUSE-OFFICE EXECUTIVE [address] [place] [address], [address] [place] [address] 09/26/2025 8:30 AM ESTInfusion Paola L [place] [facility] - Medical Oncology [address] [place] [phone] documented as of this encounter Goals GoalPatient Goal TypeAssociated ProblemsRecent ProgressPatient-Stated?Author return home Milagros Escobedo RN Note: Evaluation of progress towards goal: patient plans to return home with family support Autogenerated Goal Care PlanAutogenerated ProblemNoPotts, Elizabethdocumented as of this encounter Visit Diagnoses Not on filedocumented in this encounter Additional Health Concerns Active ProblemsNoted DateDiagnosed DateAutogenerated Jdeqduk4908/10/2025ssessment Noted TimePHQ-9 Depression Total Score: 3:45 PM ESTdocumented as of this encounter Care Teams Team MemberRelationshipSpecialtyStart DateEnd Date Bin Sidhu MD [address] [place] [address] PCP - GeneralFamily Vhhjzceo46/9/25documented as of this encounter
--- OUTSIDE RECORDS SUMMARY | 2025-08-24 17:09 | XMS_ITS | Clinical Summary ---
Author Organization [employer] s tem Address [id number] [address] [place] [address] Care Team Providers Care Label Coder Name Role Phone Bin Sidhu MD Primary Care Provider [phone] Allergies Active AllergyReactionsCriticalityNoted UtqyHenwmuylDzeBgzttdxxsxWfq76/08/2025 LatexHives,Facial LaggmqqxYcdvlx41/08/2025 Medications MedicationSigDispense QuantityRefillsLast FilledStart DateEnd DateStatus dorzolamide [...] tablet Indications:Endometrial cancer determined by uterine biopsy ([facility]Take 2 tablets (8 mg) by mouth once daily on days 2, 3 and 4. 60 tablet 5Active ondansetron (ZOFRAN) 8 mg tablet Indications:Endometrial cancer determined by uterine biopsy ([facility] [place]Starting on day 3, take 1 tablet by mouth twice daily as needed for nausea or vomiting. 60 tablet 5Active prochlorperazine (COMPAZINE) 10 mg tablet Indications:Endometrial cancer determined by uterine biopsy ([facility]Take 1 tablet by mouth every 6 hours as needed for nausea or vomiting on days 1 and 2. 60 tablet 5Active lidocaine-prilocaine (EMLA) cream Indications:Endometrial cancer determined by uterine biopsy ([facility] [place] [place]), Port-A-Cath in placeApply 1 Application topically as needed for pain (Port Access) for up to 12 days. Apply 2.5 grams to port site one hour prior to access prn. Cover with occlusive dressing as directed. 30 g tive ondansetron ODT (ZOFRAN ODT) 4 mg disintegrating tablet Indications:Endometrial cancer ([facility] [place]Dissolve 1 tablet (4 mg total) on tongue [...] Max Daily Amount: 20 mg 12 tablet 11/09/654707/13/2025Discontinued oxyCODONE (ROXICODONE) 5 mg immediate release tablet [...] mass08/04/2025 Resolved Problems ProblemNoted DateDiagnosed DateResolved DateVaginal alegqygs46 Vagina gwlofvdm72 Encounters DateTypeDepartmentCare CwvgBaqjxbdvvaf04/26/2025Telephone [facility] Gynecology Oncology, A Department of [place] [address] [place] [address] Desmond Martin RN 08/21/2025Tumor Conference [facility] Gynecology Oncology, A Department of [place] [address] [place] [address] Annita Patton, BELLOWS ASSEMBLER-GRAVEL ROOFER 08/20/2025Hospital Encounter [facility] - Surgery [address] [place] [address] Justin Mackey MD 08/17/2025Telephone [facility] Gynecology Oncology, A Department of [place] [address] [place] [phone] Milagros Machado, JORDYN 08/17/2025Telephone [facility] Physicians General Surgery [address] [place] [phone] Regina Zarate, Lillie 08/16/2025 3:00 PM ESTProcedure visit [facility] - Pre Admit [address] [place] [phone] Preop examination (Primary Dx); Anemia, unspecified type08/16/20257939Oxiuqr99/19/2025Telephone [facility] Gynecology Oncology, A Department of [facility] [address] [place] [phone] Milagros Machado RN 08/14/2025Telephone [facility] Gynecology Oncology, A Department of [facility] [address] [place] [phone] Christi Tsang CMA 08/14/2025Orders Only [facility], A Department of [facility] [address] [place] [phone] Milagros Machado, JORDYN Endometrial cancer determined by uterine biopsy ([facility]) (Primary Dx)08/14/2025 Orders Only Paola Wilson [facility] - Medical Oncology [facility] [place] [phone] Melinda Coffey PA Post-operative nausea and vomiting (Primary Dx); Pelvic mass; Endometrial cancer ([facility])08/13/2025Telephone [facility] Gynecology Oncology, A Department of [facility] [address] [place] [phone] Milagros Machado RN 08/10/2025Orders Only [facility] Oncology, A Department of [facility] [address] [place] [phone] Desmond Martin RN 08/10/2025Telephone [facility] Gynecology Oncology, A Department of [facility] [address] [place] [phone] Milagros Machado RN 08/09/2025Telephone [facility] Physicians General Surgery [address] [place] [address] Regina Zarate RMA 08/08/2025Orders Only [facility] Gynecology Oncology, A Department of [facility] [address] [place] [phone] Milagros Machado, JORDYN Endometrial cancer determined by uterine biopsy ([facility]) (Primary Dx)08/07/2025 1:30 PM ESTAnesthesia Event [facility] Surgery [address] [place] [phone] Mahendra Rico MD Roberts, Alyssa [facility] 08/07/2025 12:30 PM EST - 08/07/2025 3:00 PM ESTSurgery [facility] Surgery [address] [place] [phone] Dennis Monson MD [facility] HYSTERECTOMY SALPINGO OOPHORECTOMY/RADICAL INTRAPERITONEAL TUMOR BXINRQZSM65/11/2374Entxks27/10/2025Telephone [facility] Gynecology Oncology, A Department of [facility] [address] [place] [phone] Rocio Alexander MD Hhampnlxo24/09/2025Orders Only [facility] [employer] [address] [place] [phone] Transcribe, Orders Support User Pain (Primary Dx)08/04/2025 9:37 AM ESTAnesthesia Event [facility] Surgery [address] [place] [phone] Franklin Ramos MD Rayle, Marissa, APRN-TELESALES ADVISOR 08/04/2025 8:30 AM EST - 08/04/2025 9:40 AM ESTSurgery [facility] - Surgery [address] [place] [address] Rocio Alexander MD DILATION CURETTAGE [[id number] (CPT??)]08/04/2025 3:32 AM EST - 08/09/2025 5:49 PM ESTHospital Encounter [facility] - GEN 6 Acute [address] [place] [address] Rocio Alexander MD Endometrial cancer determined by uterine biopsy ([facility] (Primary Dx); Pelvic mass; Limited mobility; Nausea Discharge Disposition: Home08/04/20259588Dyloym56/06/2025 7:10 PM ESTAncillary Procedure [facility] [address] [place] [phone] Pain08/02/2025 6:05 PM ESTAncillary Procedure [facility] [address] [place] [phone] Painfrom Last 3 Months Immunizations No known immunizations Family History Medical HistoryRelationNameCommentsCancerFatherCancerMotherRelationNameStatus CommentsFatherDeceasedMotherDeceased Social History Tobacco UseTypesPacks/DayYears UsedDateSmoking Tobacco: NeverSmokeless Tobacco: Never Tobacco Cessation:Counseling Given: Not Answered Alcohol UseStandard Drinks/WeekCommentsNever0 (1 standard drink = 0.6 oz pure alcohol)PHQ-2AnswerDate RecordedTotal Ppsnf97410/04/2024UDIT-CAnswerDate Recorded Q1: How often do you have [...] InformationValueDate RecordedSex Assigned at BirthNot on fileLegal CnaWeuhhu42/08/2025 12:05 AM ESTGender IdentityNot on fileSexual OrientationNot on file Last Filed Vital Signs Vital SignReadingTime TakenCommentsBlood Zdmvfruv385/7208/09/2025 7:49 AM EST Yptzc443608/09/2025 7:49 AM DSIDdecwzckssp83.4 ??C (99.4 ??F)08/09/2025 7:49 AM ESTRespiratory Rlmy784310/09/2024 7:49 AM ESTOxygen Ozlyzkmxmm88%08/09/2025 7:49 AM ESTInhaled Oxygen Concentration--Bkxmsi41.3 kg (155 lb)08/16/2025 3:27 PM EST Tzhfoa924.5 cm (5' 2 )08/16/2025 3:27 PM ESTBody Mass Index28.35110/16/2024 3:27 PM EST Plan of Treatment DateTypeDepartmentCare Team (Latest Contact Info)Cjuvutbucbn34/01/2025 3:30 PM ESTTelemedicine [facility] Gynecology Oncology, A Department of [address] [phone] Annita Patton, BELLOWS ASSEMBLER-GRAVEL ROOFER [address] [place] [address], [address] [place] [address] 08/30/2025 10:30 AM ESTInfusion [facility] - Medical Oncology [address] [place] [phone] 08/31/2025 8:30 AM ESTInfusion [facility] [place] [facility] - Medical Oncology [address] [place] [phone] 09/10/2025 1:30 PM ESTOffice Visit [facility]ne[facility] Oncology, A Department of [address] [place] [phone] Annita Patton, BELLOWS ASSEMBLER-[facility] [address] [place] [address], [address] [place] [address] 09/25/2025 10:00 AM ESTInfusion [facility] [place] [facility] - Medical Oncology [address] [place] [address], [place] [phone] 09/26/2025 8:00 AM ESTTelemedicine [facility]cology, A Department of [address] [place] [phone] Annita Patton, BELLOWS ASSEMBLER-GRAVEL ROOFER [address] [place] [address], [address] [place] [address] 09/26/2025 8:30 AM ESTInfusion [facility]ola [place] [facility] - Medical Oncology [address] [place] [phone] Health MaintenanceDue DateLast DoneCommentsAdult BMI Follow Up Plan1973 DTaP,Tdap and Td Vaccines (1 - Tdap)1974Zoster (Shingles) Vaccine (1 of 2) 1974RSV ( or age 60+ yrs) (1 - Risk 60-74 years 1-dose series) 2015Fall Risk Ypdyesjak91/05/2020Influenza Uclndwf9605/28/2025Depression Gimlnjgkb58dult BMI Vlcswysnv96Tobacco Ymixphpuv24 Goals GoalPatient Goal TypeAssociated ProblemsRecent ProgressPatient-Stated?Author return home Milagros Escobedo RN Note: Evaluation of progress towards goal: patient plans to return home with family support Autogenerated Goal Care PlanAutogenerated ProblemNoPotts, [employer] Not on file Procedures Procedure NamePriorityDate/TimeAssociated DiagnosisCommentsBASIC METABOLIC PANEL Gyhvqgp0208/16/2025 3:52 PM EST Preop examination CBC WITH AUTO FYGNHTQVDSGZVawepie92/20/2025 3:52 PM EST Preop examination Anemia, unspecified type CROSSMATCH GFWYamagse03/15/2025 12:37 AM EST CBC WITH AUTO LDJNLIPHNBNKNiyrigj27/13/2025 5:32 AM EST COMPREHENSIVE METABOLIC GSGZWBbmfjpl38/13/2025 5:32 AM EST CBC WITH AUTO VVAARZCBJWWRMqszyww29/12/2025 5:58 AM EST TYPE AND NOOHRHCkazdhe42/12/2025 5:57 AM EST COMPREHENSIVE METABOLIC KOHTXGkmddzx38/12/2025 5:57 AM EST SURGICAL GBUDKOHKDTkvpzmf60/11/2025 3:42 PM EST NON-GYNECOLOGIC RRZARXYPYqpktsq85/11/2025 2:44 PM EST TRANSFUSE RED BLOOD CCGUZIvpklbq94/11/2025 2:23 PM ESTPR AN ELECTIVE ENDOTRACHEAL NQEGFWSblgpfw89/11/2025 1:44 PM EST FLEXIBLE HMHRVMMGXEJPN15/11/2025 1:30 PM EST ENDOMETRIAL CANCER Case Notes [facility] 2W MOVE UP TO 1130 Special Needs MOVE UP TO 1130 [facility] HYSTERECTOMY [place]O UPRFYLILFHGJ29/11/2025 1:30 PM EST ENDOMETRIAL CANCER Case Notes [facility] 2W MOVE UP TO 1130 Special Needs MOVE UP TO 1130 COMPREHENSIVE METABOLIC RXXANXeewozl03/11/2025 5:40 AM EST CBC WITH AUTO QAYZVNIDWVRXMqkucrt63/11/2025 5:40 AM EST CROSSMATCH WTGIuosjyy20/10/2025 6:37 AM ESTCOMPREHENSIVE METABOLIC PANELRoutine 08/06/2025 6:23 AM EST CBC WITH AUTO HVQNGQURTKNPQtrelcm86/10/2025 6:23 AM EST COMPREHENSIVE METABOLIC AVXVBSdhgacw44/09/2025 8:[address] CHEST W FJEJLwbsgfq76/09/2025 12:11 PM EST CBC WITH AUTO CQDVJQORXNNFUhjmqjs90/09/2025 4:02 AM EST COMPREHENSIVE METABOLIC IVXBKLcqwdxw47/09/2025 4:02 AM EST CBC WITH AUTO LTBLWFKWNMHSYgcrhvp78/08/2025 12:18 PM EST TRANSFUSE RED BLOOD DZSLJTryievy49/08/2025 10:00 AM ESTPR AN ELECTIVE ENDOTRACHEAL JJHDXKAdxyxwk69/08/2025 9:48 AM EST WA HYSTEROSCOPY,W/ENDO BX08/04/2025 9:37 AM EST vaginal bleed TRANSFUSE RED BLOOD YYSHZDoblzjf69/08/2025 8:39 AM ESTREPEATED ABORHRoutine 08/04/2025 8:27 AM ESTREPEATED JGTTYNkkgzou14/08/2025 7:41 AM EST CROSSMATCH MCFYpmqrsv04/08/2025 5:30 AM EST TYPE AND EBSGYXKfdmqth68/08/2025 5:30 AM EST BDWGSSJUYNZtojvjq78/08/2025 5:30 AM EST JUKYUbvadag07/08/2025 5:30 AM EST PROTIME & XDVSfhpuom09/08/2025 5:30 AM EST CBC WITH AUTO GGNNSZIVRMHWKwqsxlr90/08/2025 5:30 AM EST COMPREHENSIVE METABOLIC QKUHECnrdecl86/08/2025 5:30 AM EST PULSE OXIMETRY, GVKPYpuuziz18/08/2025 3:38 AM ESTCT ABDOMEN AND PELVIS W CONT Rrhawne1208/02/2025 7:10 PM EST Pain US DUPLEX ABD PELVIS OGXJTypqedm30/06/2025 6:05 PM EST Pain from Last 3 Months Results * (ABNORMAL) CBC auto differential (08/16/2025 3:52 PM EST) Only the most recent of8 resultswithin the time period is included. ComponentValueRef RangeTest MethodAnalysis TimePerformed AtPathologist Signature WBC30.6(H)4 - 11 10^9/L110/16/2024 4:45 PM [facility] RBC Count4.063.8 - 5.2 10^12/L110/16/2024 4:45 PM ESTPROSIERRA VISTA REGIONAL MEDICAL CENTERHemoglobin11.4(L)11.7 - 15.5 g/dL08/16/2025 4:45 PM ESTPROSIERRA VISTA REGIONAL MEDICAL CENTERHematocrit34.4(L)35 - 47 %08/16/2025 4:45 PM ESTPROSIERRA VISTA REGIONAL MEDICAL CENTERMCV8580 - 100 fL08/16/2025 4:45 PM ESTPROSIERRA VISTA REGIONAL MEDICAL CENTERMCH28.027 - 34 pg08/16/2025 4:45 PM [facility]ATIONMCHC33.032 - 36 g/dL08/16/2025 4:45 PM [facility]HABILITATIONRDW16.6(H)11.5 - 15 %08/16/2025 4:45 PM [facility]ABILITATIONPlatelet Ldfff253(H)150 - 450 10^9/L110/16/2024 4:45 PM EST [facility]ENTERMPV8.07 - 12 fL08/16/2025 4:45 PM EST [facility]ENTERBands %8%08/16/2025 4:45 PM [facility]ATIONComment:This is an appended report. These results have been appended to a previously preliminary verified report.Neutrophils %81% 08/16/2025 4:45 PM [facility]ATIONComment:This is an appended report. These results have been appended to a previously preliminary verified report.Lymphocytes %4%08/16/2025 4:45 PM [facility]ATIONComment:This is an appended report. These results have been appended to a previously preliminary verified report.Monocytes %7%08/16/2025 4:45 PM EST [facility]ENTERComment:This is an appended report. These results have been appended to a previously preliminary verified report. Neutrophils Absolute (M)27.3(H)1.5 - 6.6 10^9/L110/16/2024 4:45 PM [facility]ATIONComment:This is an appended report. These results have been appended to a previously preliminary verified report.Lymphocytes Absolute 1.21.0 - 3.5 10^9/L110/16/2024 4:45 PM [facility] Comment:This is an appended report. These results have been appended to a previously preliminary verified report.Monocytes Absolute2.1(H)0.0 - 0.9 10^9/L 08/16/2025 4:45 PM [facility]ATIONComment:This is an appended report. These results have been appended to a previously preliminary verified report.Polychromasia1+08/16/2025 4:45 PM ESTLAKEHEALTH BEACHWOOD MEDICAL CENTERComment:This is an appended report. These results have been appended to a previously preliminary verified report.Elliptocytes1+08/16/2025 4:45 PM EST [facility]ENTERComment:This is an appended report. These results have been appended to a previously preliminary verified report. Stomatocytes1+08/16/2025 4:45 PM ESTLAKEHEALTH BEACHWOOD MED[facility] CENTERComment: This is an appended report. These results have been appended to a previously preliminary verified report.Differential TypeMANUAL QAZBEDPVYSOX91/20/2025 4:45 PM [facility]ATIONComment:This is an appended report. These results have been appended to a previously preliminary verified report. Specimen (Source)Anatomical Location / LateralityCollection Method / Volume Collection TimeReceived TimeBloodVenous blood / UnknownVenipuncture / Unknown 08/16/2025 3:52 PM EST08/16/2025 3:52 PM EST Narrative Authorizing ProviderResult TypeResult StatusDaviquiana Angulo MDLAB BLOOD ORDERABLESFinal ResultPerforming OrganizationAddressCity/State/ZIP CodePhone Number [facility] [address] [place] [address], * (ABNORMAL) Basic Metabolic Panel (08/16/2025 3:52 PM EST)ComponentValueRef RangeTest MethodAnalysis TimePerformed AtPathologist GprspatmgYDDHCB225887 - 146 mmol/L110/16/2024 4:17 PM ESTLAKEHEALTH BEACHWOOD MEDICAL CENTERPOTASSIUM 2.6(LL)3.5 - 5.0 mmol/L110/16/2024 4:17 PM ESTLAKEHEALTH BEACHWOOD MEDICAL CENTERCHLORIDE10398 - 109 mmol/L110/16/2024 4:17 PM ESTLAKEHEALTH BEACHWOOD MEDICAL CENTERCARBON KPTAOGD9438 - 32 mmol/L110/16/2024 4:17 PM ESTLAKEHEALTH BEACHWOOD MEDICAL CENTERANION MAS586 - 15 mmol/L110/16/2024 4:17 PM EST [facility]ENTERBLOOD UREA RYMNADCN175 - 27 mg/dL08/16/2025 4:17 PM ESTLAKEHEALTH BEACHWOOD MEDICAL CENTERCREATININE0.700.40 - 1.00 mg/dL 08/16/2025 4:17 PM [facility]ATIONComment:METHOD TRACEABLE TO IDMS PTEKNZJSEJITKKD453(H)65 - 99 mg/dL08/16/2025 4:17 PM EST [facility] CENTERCALCIUM8.58.5 - 10.5 mg/dL08/16/2025 4:17 PM [facility] [...] MDLAB BLOOD ORDERABLESFinal ResultPerforming OrganizationAddressCity/State/ZIP CodePhone Number [facility] [address] * Crossmatch RBC:Number of Units: 2 (08/11/2025 12:37 AM EST) Only the most recent of3 resultswithin the time period is included. ComponentValueRef RangeTest MethodAnalysis TimePerformed AtPathologist Signature Blood component [id number] BANK - WELLSKYUnit [id number] BANK - WELLSKYUnit ABOOBLOOD BANK - WELLSKYUnit RHPOSBLOOD BANK - WELLSKY CrossmatchCompatibleBLOOD BANK - WELLSKYStatus of unitTRANSFUSEDBLOOD BANK - WELLSKYExpiration [id number] BANK - WELLSKYBB Type Jrvybna8755VKROF BANK - WELLSKYSpecimen (Source)Anatomical Location / LateralityCollection Method / VolumeCollection TimeReceived TimeBloodVenous blood / Aycrenj4308/11/2025 12:37 AM EST08/04/2025 5:47 AM EST Narrative Authorizing ProviderResult TypeResult StatusKassivelisse Still MDBLOOD BANK PRODUCT ORDERABLESEdited Result - FinalPerforming OrganizationAddressCity/State/ZIP Code Phone Number [facility] - [facility] * (ABNORMAL) Comprehensive metabolic panel (08/09/2025 5:32 AM EST) Only the most recent of7 resultswithin the time period is included. ComponentValueRef RangeTest MethodAnalysis TimePerformed AtPathologist Signature BGFETD881733 - 146 mmol/L110/09/2024 6:26 AM [facility] LABORATORYPOTASSIUM3.3(L)3.5 - 5.0 mmol/L110/09/2024 6:26 AM [facility] WWCLVPXXGMMPGJTJZW97072 - 109 mmol/L110/09/2024 6:26 AM [facility] LABORATORYCARBON OBUUKBO9655 - 32 mmol/L110/09/2024 6:26 AM [facility] LABORATORYANION CYC526 - 15 mmol/L110/09/2024 6:26 AM [facility] LABORATORYBLOOD UREA KDXHVYAL200 - 27 mg/dL08/09/2025 6:26 AM [facility] LABORATORYCREATININE0.650.40 - 1.00 mg/dL08/09/2025 6:26 AM [facility] LABORATORYComment:METHOD TRACEABLE TO IDAK LNYKAISFYTNJZZX8291 - 99 mg/dL08/09/2025 6:26 AM [facility] LABORATORYCALCIUM8.1(L)8.5 - 10.5 mg/dL08/09/2025 6:26 AM [facility] LABORATORYTOTAL PROTEIN5.4(L)6.0 - 8.0 g/dL08/09/2025 6:26 AM [facility] LABORATORYALBUMIN3.0(L)3.2 - 5.3 g/dL08/09/2025 6:26 AM [facility] LABORATORYALKALINE GWYMYCERFTC9889 - 130 U/L110/09/2024 6:26 AM [facility] HHHZYVHXBLSVG27<=41 U/L110/09/2024 6:26 AM [facility] LABORATORYALT6<=31 U/L110/09/2024 6:26 AM [facility] LABORATORYBILIRUBIN,TOTAL0.50.3 - 1.2 mg/dL08/09/2025 6:26 AM [facility] LABORATORYEGFR Non-Race Dependent>90>=60 ml/min/1.73sq.m110/09/2024 6:26 AM [facility] LABORATORYComment: Reported eGFR is based on the CKD-EPI 2020 equation that does not use a race coefficient. Specimen (Source)Anatomical Location / LateralityCollection Method / Volume Collection TimeReceived TimeBloodVenous blood / UnknownVenipuncture / Unknown 08/09/2025 5:32 AM EST08/09/2025 5:54 AM EST Narrative Authorizing ProviderResult TypeResult StatusBrittnee Sam MDLAB BLOOD ORDERABLESFinal ResultPerforming OrganizationAddressCity/State/ZIP CodePhone Number [facility] [address] [place] [address], * Type and screen(includes indirect grady) (08/08/2025 5:57 AM EST) Only the most recent of2 resultswithin the time period is included. ComponentValueRef RangeTest MethodAnalysis TimePerformed AtPathologist Signature ABOO110/08/2024 7:52 AM ESTTTH BB - CPXHLEPGSQakjjbyp47/12/2025 7:52 AM ESTTTH BB - WELLSKYAntibody YteyqeJkciqmsv90/12/2025 7:52 AM ESTTTH BB - WELLSKYSpecimen (Source)Anatomical Location / LateralityCollection Method / VolumeCollection TimeReceived TimeBloodVenous blood / UnknownVenipuncture / Pxbyjnz5908/08/2025 5:57 AM EST08/08/2025 6:54 AM EST Narrative Authorizing ProviderResult TypeResult StatusRocio Alexander MDBLOOD BANK TEST ORDERABLESEdited Result - FinalPerforming OrganizationAddressCity/State/ZIP Code Phone Number [facility] RAJI MALDONADO [address] [place] [address], [place] * Surgical Pathology (08/07/2025 3:42 PM EST)ComponentValueRef RangeTest Method Analysis TimePerformed AtPathologist SignatureCase ReportSurgical Pathology Report ? Case: [id number] ? Authorizing Provider: ??Dennis Monson MD ?Collected: ? 08/07/2025 1542 ? Ordering Location: ? [facility] ??Received: ?08/07/2025 1647 ? - Surgery ? Pathologist: ? Gene K MD [place] ? Specimens: ?? 1) - Uterus, Fallopian Tube, Ovary, UTERUS, CERVIX, BILATERAL TUBES AND OVARIES ? 2) - Pelvis, LEFT POSTERIOR PELVIS BIOPSY ? 08/14/2025 2:47 PM [facility] LABORATORYFinal Diagnosis1. Uterus, fallopian [...] posterior pelvis, biopsy: Metastatic carcinoma.08/14/2025 2:47 PM [facility] at 1447 ESTGross [...] x 0.6 cm. The serosa is purple-lambert heano, smooth and glistening. The fimbria are trisected [...] 1 minute Total fixation time: 27 hours (18,ns,[id number], m8.1) 2. Received in formalin labeled ANDERSON, left posterior pelvis biopsy is pink-lambert feathery and friable soft tissue admixed with hemorrhagic material, 2.5 x 2.5 x 1.2 cm in aggregate. The specimen is submitted entirely in cassettes A- C. (3,ns,[id number], m8.1) 08/14/2025 2:47 PM [facility] LABORATORYSynoptic ChecklistENDOMETRIUM ENDOMETRIUM - All Specimens CC [...] (no nodes submitted or found)08/14/2025 2:47 PM [facility] LABORATORYEmbedded Ihjfec4708/14/2025 2:47 PM [facility] LABORATORYSpecimen (Source)Anatomical Location / LateralityCollection Method / VolumeCollection TimeReceived TimeTissue (Uterus, Fallopian Tube, Ovary)08/07/2025 3:42 PM EST08/07/2025 4:47 PM ESTComment:Pre-op diagnosis: ENDOMETRIAL CANCERTissue specimen (specimen)Pelvic region / Zspsibt4808/07/2025 3:43 PM EST08/07/2025 4:47 PM ESTComment:Pre-op diagnosis: ENDOMETRIAL CANCER Narrative Authorizing ProviderResult TypeResult StatusDennis Monson MDPATHOLOGY/CYTOLOGY ORDERABLESFinal ResultPerforming OrganizationAddressCity/State/ZIP CodePhone Number [facility] [address] [place] [address], * Transfuse RBC:1 Unit (08/07/2025 2:56 PM EST) Only the most recent of3 resultswithin the time period is included. Narrative Authorizing ProviderResult TypeResult StatusAleia Monica Alexander MDBLOOD TRANSFUSION ORDERABLESFinal Result * Cytology non-gynecologic (08/07/2025 2:44 PM EST)ComponentValueRef RangeTest MethodAnalysis TimePerformed AtPathologist SignatureCase ReportMedical Cytology Report ? Case: [id number] ? Authorizing Provider: ??Dennis Monson MD ?Collected: ? 08/07/2025 1444 ? Ordering Location: ? [facility] ??Received: ?08/07/2025 1501 ? - Surgery ? Pathologist: ? Darryl Alcantara MD ? Specimen: ?Pelvis, Pelvis fluid ? 08/14/2025 2:58 PM [facility] LABORATORYFinal DiagnosisPelvic fluid: Positive for Carcinoma, rare cells.08/14/2025 2:58 PM [facility] at 1458 ESTGross DescriptionReceived was 20ml of red fluid unfixed, labeled as Anderson, pelvis . CytoLyt added in lab. Specimen placed in formalin at 17:00 and had a total fixation time of 8 hours. 08/14/2025 2:58 PM [facility] LABORATORYEmbedded Images 08/14/2025 2:58 PM [facility] LABORATORYSpecimen (Source) Anatomical Location / LateralityCollection Method / VolumeCollection Time Received TimeFluidPelvic region / Hnmdrgn4308/07/2025 2:44 PM EST08/07/2025 3:01 PM ESTComment:Pre-op diagnosis: ENDOMETRIAL CANCER Narrative Authorizing ProviderResult TypeResult StatusAdawild Monson MDPATHOLOGY/CYTOLOGY ORDERABLESFinal ResultPerforming OrganizationAddressCity/State/ZIP CodePhone Number [facility] [address] [place] [address], * [place] AN ELECTIVE ENDOTRACHEAL AIRWAY (08/07/2025 1:44 PM EST) Narrative Evelin Jackson SRNA - 08/07/2025 1:44 PM EST EDIN Inman 08/07/2025 2:13 PM Airway Patient location during procedure: OR Urgency: Elective Date/Time: 08/07/2025 1:44 PM Airway not difficult IV In Situ: Peripheral General Information and Staff Service Provider: Mahendra Rico MD TELESALES ADVISOR: Karime Mann APRN-TELESALES ADVISOR Student: EDIN Inman Placed by: ??EDIN Inman [...] 08/06/2025 7:20 AM Authorizing ProviderResult TypeResult StatusAlexandria [facility] ORDERABLESFinal Result * WA AN ELECTIVE ENDOTRACHEAL AIRWAY (08/04/2025 9:48 AM EST) Leonor Cornell APRN-CRNA - 08/04/2025 9:48 AM EST BELLE Ferguson 08/04/2025 10:02 AM Airway Patient location during procedure: OR Urgency: Elective Date/Time: 08/04/2025 9:48 AM Airway not difficult IV In Situ: Peripheral General Information and Staff Service Provider: Franklin Ramos MD TELESALES ADVISOR: BELLE Ferguson Placed by: ??BELLE Ferguson Patient [...] Trauma? No Visibility: ??Cords Clear Blade: Other (Zapa) Blade size: #3 Placement verified by: chest [...] AM EST)ComponentValueRef RangeTest Method Analysis TimePerformed AtPathologist NtyhlfhsgRCJV48(L)26 - 37 sec08/04/2025 6:07 AM [facility] LABORATORYSpecimen (Source)Anatomical Location / LateralityCollection Method / VolumeCollection TimeReceived Time BloodVenous blood / UnknownVenipuncture / Lwfzjbk6208/04/2025 5:30 AM EST 08/04/2025 5:42 AM EST Narrative Authorizing ProviderResult TypeResult StatusMicssidnolan Still MDLAB BLOOD ORDERABLESFinal ResultPerforming OrganizationAddressCity/State/ZIP CodePhone Number [facility] [address] [place] [address], * Protime & INR (08/04/2025 5:30 AM EST)ComponentValueRef RangeTest Method Analysis TimePerformed AtPathologist EzrmvvqhnJOQHLLO24.89.8 - 13.2 sec 08/04/2025 6:07 AM [facility] LABORATORYINR1.00.9 - 1.2 08/04/2025 6:07 AM [facility] LABORATORYSpecimen (Source) Anatomical Location / LateralityCollection Method / VolumeCollection Time Received TimeBloodVenous blood / UnknownVenipuncture / Dtssjol1608/04/2025 5:30 AM EST08/04/2025 5:42 AM EST Narrative Authorizing ProviderResult TypeResult StatusMicssivelisse Still MDLAB BLOOD ORDERABLESFinal ResultPerforming OrganizationAddressCity/State/ZIP CodePhone Number [facility] [address] [place] [address], * Fibrinogen (08/04/2025 5:30 AM EST)ComponentValueRef RangeTest MethodAnalysis TimePerformed AtPathologist EonyhhecxOGFLLXZTMA691854 - 480 mg/dL08/04/2025 6:07 AM [facility] LABORATORYSpecimen (Source)Anatomical Location / LateralityCollection Method / VolumeCollection TimeReceived Time BloodVenous blood / UnknownVenipuncture / Oigoxpg4008/04/2025 5:30 AM EST 08/04/2025 5:42 AM EST Narrative Authorizing ProviderResult TypeResult StatusKassidy Toddent MDLAB BLOOD ORDERABLESFinal ResultPerforming OrganizationAddressCity/State/ZIP CodePhone Number [facility] [address] [place] [address], * CT abdomen and pelvis with contrast [...] Additional Health Concerns Active ProblemsNoted DateDiagnosed DateAutogenerated Xrfnngs3808/10/2025 Insurance Advance Directives * Full Code (Latest Code Status on File) Date ActivatedDate PslnsgieuxqGyjleyph61/8/2025 3:38 AM08/09/2025 7:55 PM Care Teams Team MemberRelationshipSpecialtyStart DateEnd Date Bin Sidhu MD [address] [phone] PCP - GeneralFamily Ppzkcwer43/9/25
--- OUTSIDE RECORDS SUMMARY | 2025-08-24 17:09 | XMS_ITS | Clinical Summary ---
Author Organization [facility] Address [address] [place] [address] Care Team Providers Care Fitting Room Checker Name Role Phone Unavailable Primary Care Provider Unavailabl e Social History Tobacco UseTypesPacks/DayYears UsedDateSmoking Tobacco: Never Assessed CommentsUnknownSex and Gender InformationValueDate RecordedSex Assigned at Not on fileLegal QcgJwdysx58/15/2023 11:23 PM EDTGender IdentityNot on file Sexual OrientationNot on file Last Filed Vital Signs Vital SignReadingTime TakenCommentsBlood Pressure--Pulse--Temperature-- Respiratory Rate--Oxygen Saturation--Inhaled Oxygen Concentration--Rnipht96.9 kg (143 lb)09/29/2021 12:00 PM OUNNgcqqt203.5 cm (5' 2 )09/29/2021 12:00 PM ESTBody Mass Index26.16009/29/2021 12:00 PM EST Plan of Treatment [place] [address]
--- OUTSIDE RECORDS SUMMARY | 2025-08-24 17:09 | XMS_ITS | Encounter Summary ---
Author Organization [facility] tem Address [id number] [address] [place] [address] Care Team Providers Care Training Assistant Name Role Phone Bin Sidhu MD Primary Care Provider [phone] Encounter Details DateTypeDepartmentCare Team (Latest Contact Info)Euadcjirzjk48/26/2025Telephone [facility] Gynecology Oncology, A Department of [facility] [address] [address] Desmond Martin RN Social History Tobacco UseTypesPacks/DayYears UsedDateSmoking Tobacco: NeverSmokeless Tobacco: NeverAlcohol UseStandard Drinks/WeekCommentsNever0 (1 standard drink = 0.6 oz pure alcohol)PHQ-2AnswerDate RecordedTotal Bsoft77910/04/2024UDIT-CAnswerDate RecordedQ1: How often do you have a [...] ValueDate RecordedSex Assigned at BirthNot on fileLegal PwkEqctwk26/08/2025 12:05 AM ESTGender IdentityNot on fileSexual OrientationNot on filedocumented as of this encounter Miscellaneous Notes * Telephone Encounter - Desmond Martin RN - 08/22/2025 10:13 AM EST Maricel Mora from [facility] called the office stating that she will send over ED note, CT scans, Xray, H&P's and discharge summary from patients hospital stay. Teacher Of The Sight Impaired informed Maricel Cain wheelchair order that needs evaluation completed. Maricel Mora could not confirm that an evaluation was done. Fax number provided. documented in this encounter Plan of Treatment DateTypeDepartmentCare Team (Latest Contact Info)Fdqownoqyjn24/01/2025 3:30 PM ESTTelemedicine [facility] On[facility], A Department of [address] [place] [address] Annita Patton, DURALUMIN MECHANIC-TECHNICAL PUBLICATIONS WRITER [address] [place] [address], [address] [place] [address] 08/30/2025 10:30 AM ESTInfusion [facility] - [facility] Oncology [address] [place] [address] 08/31/2025 8:30 AM ESTInfusion [facility] - Medical Oncology [address] [place] [address], [place] [address] 09/10/2025 1:30 PM ESTOffice Visit [facility], A Department of [address] [place] [address] Annita Patton, DURALUMIN MECHANIC[address], [address] [place] [address] 09/25/2025 10:00 AM ESTInfusion [facility] - Medical Oncology [address] [place] [address], [place] [address] 09/26/2025 8:00 AM ESTTelemedicine [facility], A Department of [address] [place] [address] Annita Patton, [address], [address] [place] [address] 09/26/2025 8:30 AM ESTInfusion [facility] - Medical Oncology [address] [place] [address], [place] [address] documented as of this encounter Goals GoalPatient Goal TypeAssociated ProblemsRecent ProgressPatient-Stated?Author return home Milagros Escobedo RN Note: Evaluation of progress towards goal: patient plans to return home with family support Autogenerated Goal Care PlanAutogenerated ProblemNoPotts, Elizabethdocumented as of this encounter Visit Diagnoses Not on filedocumented in this encounter Additional Health Concerns Active ProblemsNoted DateDiagnosed DateAutogenerated Qzbecte3908/10/2025ssessment Noted TimePHQ-9 Depression Total Score: 011/04/2025 3:45 PM ESTdocumented as of this encounter Care Teams Team MemberRelationshipSpecialtyStart DateEnd Date Bin Sidhu MD [address] [phone] PCP - GeneralFamily Vmuddaia18/9/25documented as of this encounter
--- OUTSIDE RECORDS SUMMARY | 2025-08-24 17:09 | XMS_ITS | Encounter Summary ---
Author Organization [employer] [facility] tem Address [facility] [id number] [address] [place] [address] Care Team Providers Care Computer Drafter Name Role Phone Bin Sidhu MD Primary Care Provider [phone] Encounter Details DateTypeDepartmentCare Team (Latest Contact Info)Juouaxtvslt54/18/2025Orders Only [facility] - Medical Oncology [address] [place] [address] Melinda Coffey PA [address] [place] [address] Post-operative nausea and vomiting (Primary Dx); Pelvic mass; Endometrial cancer ([facility]) Social History Tobacco UseTypesPacks/DayYears UsedDateSmoking Tobacco: NeverSmokeless Tobacco: NeverAlcohol UseStandard Drinks/WeekCommentsNever0 (1 standard drink = 0.6 oz pure alcohol)PHQ-2AnswerDate RecordedTotal Zvlrz01910/04/2024UDIT-CAnswerDate RecordedQ1: How often do you have a [...] ValueDate RecordedSex Assigned at BirthNot on fileLegal ZfwOhiefx13/08/2025 12:05 AM ESTGender IdentityNot on fileSexual OrientationNot on filedocumented as of this encounter Plan of Treatment DateTypeDepartmentCare Team (Latest Contact Info)Aqozpvamzia86/01/2025 3:30 PM ESTTelemedicine [facility], A Department of [address] [place] [address] Annita Patton, TECHNICAL OPERATIONS SPECIALIST-MANAGER DATA [address] [place] [address], [address] [place] [address] 08/30/2025 10:30 AM ESTInfusion [facility] - Medical Oncology [address] [place] [phone] 08/31/2025 8:30 AM ESTInfusion [facility] - Medical Oncology [address] [place] [phone] 09/10/2025 1:30 PM ESTOffice Visit [facility], A Department of [address] [place] [address] Annita Patton, TECHNICAL OPERATIONS SPECIALIST[address], [address] [place] [address] 09/25/2025 10:00 AM ESTInfusion [facility]ola [facility] - Medical Oncology [address] [place] [address] 09/26/2025 8:00 AM ESTTelemedicine [facility] Gynecology Oncology, A Department of [address] [place] [address] Annita Patton, TECHNICAL OPERATIONS SPECIALIST[address], [address] [place] [address] 09/26/2025 8:30 AM ESTInfusion [facility] L [facility] - Medical Oncology [address] [place] [address] documented as of this encounter Goals [...] mass or lump, unspecified site Endometrial cancer ([facility]) Malignant neoplasm of corpus uteri, except isthmus documented in this encounter Additional Health Concerns Active ProblemsNoted DateDiagnosed DateAutogenerated Hjrsxkk2408/10/2025ssessment Noted TimePHQ-9 Depression Total Score: 3:45 PM ESTdocumented as of this encounter Care Teams Team MemberRelationshipSpecialtyStart DateEnd Date Bin Sidhu MD [address] [phone] PCP - GeneralFamily Iudrypli27/9/25documented as of this encounter
--- OUTSIDE RECORDS SUMMARY | 2025-08-24 17:09 | XMS_ITS | Encounter Summary ---
Author Organization [facility] tem Address [id number] [address] [place] [address] Care Team Providers Care Wedding Makeup Artist Name Role Phone Bin Sidhu MD Primary Care Provider [phone] Encounter Details DateTypeDepartmentCare Team (Latest Contact Info)Qftldljciai34/18/2025Telephone [facility] Gynecology Oncology, A Department of [facility] [address] [facility] [address] [place] [address] Christi Tsang, ERASMO Social History Tobacco UseTypesPacks/DayYears UsedDateSmoking Tobacco: NeverSmokeless Tobacco: NeverAlcohol UseStandard Drinks/WeekCommentsNever0 (1 standard drink = 0.6 oz pure alcohol)PHQ-2AnswerDate RecordedTotal Ayjqc89210/04/2024UDIT-CAnswerDate RecordedQ1: How often do you have a [...] ValueDate RecordedSex Assigned at BirthNot on fileLegal UkgCmltfb32/08/2025 12:05 AM ESTGender IdentityNot on fileSexual OrientationNot on filedocumented as of this encounter Miscellaneous Notes * Telephone Encounter - Christi Tsang CMA - 08/14/2025 3:55 PM EST Moon, from [facility], called regarding wheelchair order that was [...] either by themselves or with caregiver assistance. [employer] to relay this information to the appropriate staff member(s) for further review. * Telephone Encounter - RE Fay - 08/14/2025 3:55 PM EST Yes we can put that eval documentation in our next progress note documented in this encounter Plan of Treatment DateTypeDepartmentCare Team (Latest Contact Info)Bwfqiblhxds00/01/2025 3:30 PM ESTTelemedicine [facility], A Department of [address] [place] [address] Annita Patton, FIRE EXTINGUISHER REPAIRER-ELASTIC CUTTER [address] [place] [address], [address] [place] [address] 08/30/2025 10:30 AM ESTInfusion [facility] - Medical Oncology [address] [place] [address], [place] [address] 08/31/2025 8:30 AM ESTInfusion [facility] - Medical Oncology [address] [place] [address], [place] [phone] 09/10/2025 1:30 PM ESTOffice Visit [facility], A Department of [address] [place] [address] Annita Patton, FIRE EXTINGUISHER REPAIRER-ELASTIC CUTTER [address] [place] [address], [address] [place] [address] 09/25/2025 10:00 AM ESTInfusion [facility] - Medical Oncology [address] [place] [address], [place] [address] 09/26/2025 8:00 AM ESTTelemedicine [facility], A Department of [address] [place] [address] Annita Patton, FIRE EXTINGUISHER REPAIRER-ELASTIC CUTTER [address] [facility], [address] [place] [address] 09/26/2025 8:30 AM ESTInfusion [facility] - Medical Oncology [address] [place] [phone] documented as of this encounter Goals GoalPatient Goal TypeAssociated ProblemsRecent ProgressPatient-Stated?Author return home GeneralYesMeek, Milagros, RN Note: Evaluation of progress towards goal: patient plans to return home with family support Autogenerated Goal Care PlanAutogenerated ProblemNoPotts, Elizabethdocumented as of this encounter Visit Diagnoses Not on filedocumented in this encounter Additional Health Concerns Active ProblemsNoted DateDiagnosed DateAutogenerated Abuiiom6608/10/2025ssessment Noted TimePHQ-9 Depression Total Score: 3:45 PM ESTdocumented as of this encounter Care Teams Team MemberRelationshipSpecialtyStart DateEnd Date Bin Sidhu MD [address] [place] [address] PCP - GeneralFamily Cjktrbjo79/9/25documented as of this encounter
--- OUTSIDE RECORDS SUMMARY | 2025-08-24 17:09 | XMS_ITS ---
Author Organization [employer] tem Address [id number] [address] [place] [address] Care Team Providers Care Keeler Polygraph Operator Name Role Phone Bin Sidhu MD Primary Care Provider [phone] Active Problems ProblemNoted DateDiagnosed DateEndometrial cancer determined by uterine biopsy 08/08/2025Pelvic mass08/04/2025 Current Treatment and Therapy Plans Adult oncology/infusion center flush orders* Plan Start Date:08/08/2025 Plan Provider:RE Fay Linked Problems Endometrial cancer determine d by uterine biopsy ([facility]) Treatment Medications No medications scheduled. Oncology hydration and supportive care* Plan Start Date:08/08/2025 Plan Provider:RE Fay Linked Problems Endometrial cancer determine d by uterine biopsy ([facility]) Treatment Medications No medications scheduled. Oncology standing electrolyte replacement* Plan Start Date:08/08/2025 Plan Provider:RE Fay Linked Problems Endometrial cancer determine d by uterine biopsy ([facility]) Treatment Medications No medications scheduled. OP ADVANCED ENDOMETRIAL PEMBROLIZUMAB / PACLItaxel / CARBOplatin X 6 CYCLES THEN PEMBROLIZUMAB ALONE* Plan Start Date:08/07/2025 Plan Provider:Rocio Alexander MD Linked Problems Endometrial cancer determine d by uterine biopsy ([facility]) Treatment MedicationsCurrent Day (Day 1, Cycle 1 [...] Resolved Problems ProblemNoted DateDiagnosed DateResolved DateVaginal Vagina [id number]
--- OUTSIDE RECORDS SUMMARY | 2025-08-24 17:09 | XMS_ITS | Encounter Summary ---
Author Organization [facility] tem Address [id number] [address] [place] [address] Care Team Providers Care Project Management Professor Name Role Phone Bin Sidhu MD Primary Care Provider [phone] Encounter Details DateTypeDepartmentCare Team (Latest Contact Info)Qcbrkxxmvqm54/17/2025Telephone [facility] Gynecology Oncology, A Department of [facility] [address] [facility] [address] [place] [address] Milagros Machado RN Social History Tobacco UseTypesPacks/DayYears UsedDateSmoking Tobacco: NeverSmokeless Tobacco: NeverAlcohol UseStandard Drinks/WeekCommentsNever0 (1 standard drink = 0.6 oz pure alcohol)PHQ-2AnswerDate RecordedTotal Kfmrr27510/04/2024UDIT-CAnswerDate RecordedQ1: How often do you have a [...] ValueDate RecordedSex Assigned at BirthNot on fileLegal YoyCcnmvv27/08/2025 12:05 AM ESTGender IdentityNot on fileSexual OrientationNot on filedocumented as of this encounter Miscellaneous Notes * Telephone Encounter - Milagros Machado RN - 08/13/2025 1:47 PM EST Alum Operator contacted patient and advised her she can take 50 mg benadryl [address] to [address] to decrease risk of reaction per Melinda Coffey. Patient verbalized her understanding and states she will use OTC benadryl. She is aware that she will need a tow bar driver. documented in this encounter Plan of Treatment DateTypeDepartmentCare Team (Latest Contact Info)Cwnudoihvzf19/01/2025 3:30 PM ESTTelemedicine [facility], A Department of [address] [place] [address] Annita Patton, PHYSICS TECHNICAL OFFICER-ANESTHESIA ASSOCIATE [address] [place] [address], [address] [place] [address] 08/30/2025 10:30 AM ESTInfusion [facility] Oncology [address] [place] [address] 08/31/2025 8:30 AM ESTInfusion [facility] - Medical Oncology [address] [place] [address], [place] [address] 09/10/2025 1:30 PM ESTOffice Visit [facility], A Department of [address] [place] [address] Annita Patton, PHYSICS TECHNICAL OFFICER-[address], [address] [place] [address] 09/25/2025 10:00 AM ESTInfusion [facility] Medical Oncology [address] [place] [address], [place] [address] 09/26/2025 8:00 AM ESTTelemedicine [facility], A Department of [address] [place] [address] Annita Patton, PHYSICS TECHNICAL OFFICER[address], [address] [place] [address] 09/26/2025 8:30 AM ESTInfusion [facility] Medical Oncology [address] [place] [phone] documented as of this encounter Goals GoalPatient Goal TypeAssociated ProblemsRecent ProgressPatient-Stated?Author return home Milagros Escobedo RN Note: Evaluation of progress towards goal: patient plans to return home with family support Autogenerated Goal Care PlanAutogenerated ProblemNoPotts, Elizabethdocumented as of this encounter Visit Diagnoses Not on filedocumented in this encounter Additional Health Concerns Active ProblemsNoted DateDiagnosed DateAutogenerated Wkmuziv1908/10/2025ssessment Noted TimePHQ-9 Depression Total Score: 3:45 PM ESTdocumented as of this encounter Care Teams Team MemberRelationshipSpecialtyStart DateEnd Date Bin Sidhu MD [address] [place] [address] PCP - GeneralFamily Pmigdxwu73/9/25documented as of this encounter
--- OUTSIDE RECORDS SUMMARY | 2025-08-24 17:09 | XMS_ITS | Encounter Summary ---
Author Organization [facility] tem Address [facility] [id number] [address] [place] [address] Care Team Providers Care Automatic Pattern Edger Name Role Phone Bin Sidhu MD Primary Care Provider Encounter Details DateTypeDepartmentCare Team (Latest Contact Info)Pmnrtysrjba04/19/2025Telephone [facility] Gynecology Oncology, A Department of [facility] [address] [facility] [address] [place] [address] Milagros Machado RN Social History Tobacco UseTypesPacks/DayYears UsedDateSmoking Tobacco: NeverSmokeless Tobacco: NeverAlcohol UseStandard Drinks/WeekCommentsNever0 (1 standard drink = 0.6 oz pure alcohol)PHQ-2AnswerDate RecordedTotal Qrlrz67710/04/2024UDIT-CAnswerDate RecordedQ1: How often do you have a [...] ValueDate RecordedSex Assigned at BirthNot on fileLegal MgfDdpiqr52/08/2025 12:05 AM ESTGender IdentityNot on fileSexual OrientationNot on filedocumented as of this encounter Miscellaneous Notes * Telephone Encounter - Milagros Machado RN - 08/15/2025 4:04 PM EST Patient contacted office stating PET CT is scheduled for 08/28. Patient also stated that the RN she scheduled PET CT with advised her to try metamucil for her diarrhea. Contract Officer advised patient that metamucil is usually used for constipation but has been known to help with diarrhea as well and that she could try it it if she wanted to. Patient verbalized her understanding. documented in this encounter Plan of Treatment DateTypeDepartmentCare Team (Latest Contact Info)Sviqlpiqixm10/01/2025 3:30 PM ESTTelemedicine [facility], A Department of [address] [place] [address] Annita Patton, COMPUTATIONAL BIOLOGIST-WEB PUBLISHER [address] [place] [address], [address] [place] [address] 08/30/2025 10:30 AM ESTInfusion [facility] - Medical Oncology [address] [place] [address], [place] [address] 08/31/2025 8:30 AM ESTInfusion [facility] - Medical Oncology [address] [place] [address], [place] [address] 09/10/2025 1:30 PM ESTOffice Visit [facility], A Department of [address] [place] [address] Annita Patton, COMPUTATIONAL BIOLOGIST-[address], [address] [place] [address] 09/25/2025 10:00 AM ESTInfusion [facility]ola [facility] - Medical Oncology [address] [place] [phone] 09/26/2025 8:00 AM ESTTelemedicine [facility], A Department of [address] [place] [address] Annita Patton, COMPUTATIONAL BIOLOGIST-WEB PUBLISHER [address] [place] [address], [address] [place] [address] 09/26/2025 8:30 AM ESTInfusion [facility] - Medical Oncology [address] [place] [phone] documented as of this encounter Goals GoalPatient Goal TypeAssociated ProblemsRecent ProgressPatient-Stated?Author return home Milagros Escobedo RN Note: Evaluation of progress towards goal: patient plans to return home with family support Autogenerated Goal Care PlanAutogenerated ProblemNoPotts, Elizabethdocumented as of this encounter Visit Diagnoses Not on filedocumented in this encounter Additional Health Concerns Active ProblemsNoted DateDiagnosed DateAutogenerated Tfmfqkp1408/10/2025ssessment Noted TimePHQ-9 Depression Total Score: 3:45 PM ESTdocumented as of this encounter Care Teams Team MemberRelationshipSpecialtyStart DateEnd Date Bin Sidhu MD [address] [place] [address] PCP - GeneralFamily Zhnkwymu59/9/25documented as of this encounter
--- OUTSIDE RECORDS SUMMARY | 2025-08-24 17:09 | XMS_ITS | Encounter Summary ---
Author Organization [facility] tem Address [facility]-[id number] [address] [place] [address] Care Team Providers Care Field Crop Farm Worker Name Role Phone Bin Sidhu MD Primary Care Provider [phone] Encounter Details DateTypeDepartmentCare Team (Latest Contact Info)Ayhbwpwhoon44/20/2025Travel Social History Tobacco UseTypesPacks/DayYears UsedDateSmoking Tobacco: NeverSmokeless Tobacco: NeverAlcohol UseStandard Drinks/WeekCommentsNever0 (1 standard drink = 0.6 oz pure alcohol)PHQ-2AnswerDate RecordedTotal Xdeoc26410/04/2024UDIT-CAnswerDate RecordedQ1: How often do you have a [...] ValueDate RecordedSex Assigned at BirthNot on fileLegal NuoIfsere18/08/2025 12:05 AM ESTGender IdentityNot on fileSexual OrientationNot on filedocumented as of this encounter Plan of Treatment DateTypeDepartmentCare Team (Latest Contact Info)Fuocijvbegj80/01/2025 3:30 PM ESTTelemedicine [facility] Gy[facility]cology Oncology, A Department of [address] [place] [address] Annita Patton, HEAVY FORGING MACHINE OPERATOR-TECHNICIAN [address] [place] [address], [address] [place] [address] 08/30/2025 10:30 AM ESTInfusion [facility]ola [facility] - Medical Oncology [address] [place] [phone] 08/31/2025 8:30 AM ESTInfusion [facility]ola [facility] - Medical Oncology [address] [place] [phone] 09/10/2025 1:30 PM ESTOffice Visit [facility] Gy[facility]cology Oncology, A Department of [address] [place] [address] Annita Patton, HEAVY FORGING MACHINE OPERATOR-TECHNICIAN [address] [place] [address], [address] [place] [address] 09/25/2025 10:00 AM ESTInfusion [facility] - Medical Oncology [address] [place] [phone] 09/26/2025 8:00 AM ESTTelemedicine [facility], A Department of [address] [place] [address] Annita Patton, HEAVY FORGING MACHINE OPERATOR-TECHNICIAN [address] [facility], [address] [place] [address] 09/26/2025 8:30 AM ESTInfusion Paola [place] [facility] - Medical Oncology [address] [place] [phone] documented as of this encounter Goals GoalPatient Goal TypeAssociated ProblemsRecent ProgressPatient-Stated?Author return home Milagros Escobedo RN Note: Evaluation of progress towards goal: patient plans to return home with family support Autogenerated Goal Care PlanAutogenerated ProblemNoPotts, Elizabethdocumented as of this encounter Visit Diagnoses Not on filedocumented in this encounter Additional Health Concerns Active ProblemsNoted DateDiagnosed DateAutogenerated Fsjcdum6808/10/2025ssessment Noted TimePHQ-9 Depression Total Score: 3:45 PM ESTdocumented as of this encounter Care Teams Team MemberRelationshipSpecialtyStart DateEnd Date Bin Sidhu MD [address] [place] [address] PCP - GeneralFamily Dpceevsk31/9/25documented as of this encounter
--- OUTSIDE RECORDS SUMMARY | 2025-08-24 17:09 | XMS_ITS | Encounter Summary ---
Author Organization [facility] tem Address [id number] [address] [place] [address] Care Team Providers Care Air Crew Officer Name Role Phone Bin Sidhu MD Primary Care Provider [phone] Reason for Visit * Auth/CertSpecialtyDiagnoses / ProceduresReferred By ContactReferred To Contact Diagnoses needed for chemotherapy Procedures IN [facility] TUNNELED CTR VAD W/SUBQ PORT AGE 5 YR/> INSERTION PORT A CATH Justin Mackey MD [address] [place] [address] Phone: tel: fax: Referral IDStatusReasonStart DateExpiration DateVisits RequestedVisits [id number] Encounter Details DateTypeDepartmentCare Team (Latest Contact Info)Hwyehpcmhms50/24/2025Hospital Encounter [facility] - Surgery [address] [place] [address] Justin Mackey MD [address] [place] [address] Social History Tobacco UseTypesPacks/DayYears UsedDateSmoking Tobacco: NeverSmokeless Tobacco: NeverAlcohol UseStandard Drinks/WeekCommentsNever0 (1 standard drink = 0.6 oz pure alcohol)PHQ-2AnswerDate RecordedTotal Pzrll89910/04/2024UDIT-CAnswerDate RecordedQ1: How often do you have a [...] ValueDate RecordedSex Assigned at BirthNot on fileLegal YabAgzncq69/08/2025 12:05 AM ESTGender IdentityNot on fileSexual OrientationNot on filedocumented as of this encounter Miscellaneous Notes * Perioperative Nursing Note - Rita Salgdao RN - 08/16/2025 5:07 PM EST Juliana JACKSON calls writer editor, explains that patient has several abnormal labs and is recommending ER evaluation. Baseball Coach has extensive conversation with patient and family about options of care. Patient ultimately agrees to go to [place] ER for evaluation. Baseball Coach recommends patient call physician office tomorrow and MANUEL to ensure procedure will be okay to proceed on Wednesday. Verbalizes understanding, d enies further questions at this time. documented in this encounter Plan of Treatment DateTypeDepartmentCare Team (Latest Contact Info)Jswrdkdnptw47/01/2025 3:30 PM ESTTelemedicine [facility], A Department of [address] [place] [address] Annita Patton, FILENET ADMIN-BELT SANDER STONE [address] [place] [address], [address] [place] [address] 08/30/2025 10:30 AM ESTInfusion Paola [place] - Medical Oncology [address] [place] [phone] 08/31/2025 8:30 AM ESTInfusion Paola [place] - Medical Oncology [address] [place] [address], [place] [address] 09/10/2025 1:30 PM ESTOffice Visit [facility], A Department of [address] [place] [address] Annita Patton, FILENET ADMIN-BELT SANDER STONE [address] [place] [address], [address] [place] [address] 09/25/2025 10:00 AM ESTInfusion Paola [place] [facility] - Medical Oncology [address] [place] [phone] 09/26/2025 8:00 AM ESTTelemedicine [facility], A Department of [address] [place] [phone] Annita Patton, FILENET ADMIN-BELT SANDER STONE [address] [place] [address], [address] [place] [address] 09/26/2025 8:30 AM ESTInfusion Paola [facility] - Medical Oncology [address] [place] [address] documented as of this encounter Goals GoalPatient Goal TypeAssociated ProblemsRecent ProgressPatient-Stated?Author return home Milagros Escobedo RN Note: Evaluation of progress towards goal: patient plans to return home with family support Autogenerated Goal Care PlanAutogenerated ProblemNoPotts, Elizabethdocumented as of this encounter Visit Diagnoses Not on filedocumented in this encounter Additional Health Concerns Active ProblemsNoted DateDiagnosed DateAutogenerated Bbbzqwr6108/10/2025ssessment Noted TimePHQ-9 Depression Total Score: 3:45 PM ESTdocumented as of this encounter Care Teams Team MemberRelationshipSpecialtyStart DateEnd Date Bin Sidhu MD [address] [place] [address] PCP - GeneralFamily Bxreimga44/9/25documented as of this encounter
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
--- OUTSIDE RECORDS SUMMARY | 2025-08-24 17:10 | XMS_ITS | Encounter Summary ---
Author Organization [facility] tem Address [id number] [address] [place] [address] Care Team Providers Care Electro Tech Name Role Phone Bin Sidhu MD Primary Care Provider [phone] Encounter Details DateTypeDepartmentCare Team (Latest Contact Info)Mkjcvecanuj16/14/2025Telephone [facility] Gynecology Oncology, A Department of [facility] [address] [facility] [address] [place] [address] Milagros Machado RN Social History Tobacco UseTypesPacks/DayYears UsedDateSmoking Tobacco: NeverSmokeless Tobacco: NeverAlcohol UseStandard Drinks/WeekCommentsNever0 (1 standard drink = 0.6 oz pure alcohol)PHQ-2AnswerDate RecordedTotal Qmlcg43410/04/2024UDIT-CAnswerDate RecordedQ1: How often do you have a [...] ValueDate RecordedSex Assigned at BirthNot on fileLegal JbuJrjwta34/08/2025 12:05 AM ESTGender IdentityNot on fileSexual OrientationNot [...] level [] Language barrier. Patient speaks: [] [facility] present. [] Anxiety [] Cognitive barriers [...] of Treatment: [] Oral, patient's home [] [facility] [] [facility] ([place]) [] [facility] [] [facility] [x] [facility] [] [facility] [] [facility] [] [facility] Interventional Radiology [] [facility] [] [facility] [] [facility] [] [facility] [] [facility] [] [facility] Interventional Radiology [x] The patient was instructed [...] Medications [x] The patient was instructed to last picker prescriptions prior to starting treatment. Supportive care [...] [x] Office and emergency Contact Information [] [facility]: A Guide to Living with Cancer* [x] OncoLink Antineoplastic Agent drug information [] Lexicomp Antineoplastic drug information [] NCCN Disease Specific Information (type in name): [] Neutropenia Wallet Card [] Immunotherapy Wallet Card [] Emla Cream Wallet Card [] Chemotherapy Calendar [] In addition to the side effect information included in the [facility] Guidebook, I have provided the patient [...] indications, dose, and frequency [x] Short and termite treater helper side effects, including indications to notify provider [...] family [x] Time spent: 90 minutes *[facility] [place]: A Guide to Living with Cancer ?? [...] Plan of Treatment DateTypeDepartmentCare Team (Latest Contact Info)Nybgmnubxks33/01/2025 3:30 PM ESTTelemedicine [facility] Gynecology Oncology, A Department of [address] [place] [address] Annita Patton, BOND ANALYST-WASHER BLANKET [address] [place] [address], [address] [place] [address] 08/30/2025 10:30 AM ESTInfusion Paola [facility] - Medical Oncology [address] [place] [phone] 08/31/2025 8:30 AM ESTInfusion Paola [facility] - Medical Oncology [address] [place] [phone] 09/10/2025 1:30 PM ESTOffice Visit [facility] Gynecology Oncology, A Department of [address] [place] [address] Annita Patton, BOND ANALYST-WASHER BLANKET [address] [place] [address], [address] [place] [address] 09/25/2025 10:00 AM ESTInfusion Paola [facility] - Medical Oncology [address] [place] [phone] 09/26/2025 8:00 AM ESTTelemedicine [facility], [facility] [address] [facility] [address] [place] [address] Annita Patton, BOND ANALYST-WASHER BLANKET [address] [facility], [address] [place] [address] 09/26/2025 8:30 AM ESTInfusion [facility]ola [facility] [address] [place] [address] documented as of this encounter Goals GoalPatient Goal TypeAssociated ProblemsRecent ProgressPatient-Stated?Author return home Milagros Escobedo RN Note: Evaluation of progress towards goal: patient plans to return home with family support Autogenerated Goal Care PlanAutogenerated ProblemNoPotts, Elizabethdocumented as of this encounter Visit Diagnoses Diagnosis Endometrial cancer determined by uterine biopsy ([facility])- Primary Port-A-Cath in place documented in this encounter Additional Health Concerns Active ProblemsNoted DateDiagnosed DateAutogenerated Jnfqpop66/14/2025Assessment Noted TimePHQ-9 Depression Total Score: 3:45 PM ESTdocumented as of this encounter Care Teams Team MemberRelationshipSpecialtyStart DateEnd Date Bin Sidhu MD [address] [place] [address] PCP - GeneralFamily Xmyvivez40/9/25documented as of this encounter
--- OUTSIDE RECORDS SUMMARY | 2025-08-24 17:10 | XMS_ITS | Encounter Summary ---
Author Organization [facility] tem Address [id number] [address] [place] [address] Care Team Providers Care Bowling Teacher Name Role Phone Bin Sidhu MD Primary Care Provider [phone] Reason for Referral * Consultation (Routine) - Pending ReviewSpecialtyDiagnoses / ProceduresReferred By ContactReferred To Contact Diagnoses Endometrial cancer determined by uterine biopsy ([facility]) Melinda Coffey PA [address] [place] [address] Phone: tel: fax: Referral IDStatusReasonStart DateExpiration DateVisits RequestedVisits [id number] Review Service Not Available In-House Encounter Details DateTypeDepartmentCare Team (Latest Contact Info)Mblknqrosgk53/18/2025Orders Only [facility] Gynecology Oncology, A Department of [facility] [address] [place] [address] Milagros Machado RN Endometrial cancer determined by uterine biopsy ([facility]) (Primary Dx) Social History Tobacco UseTypesPacks/DayYears UsedDateSmoking Tobacco: NeverSmokeless Tobacco: NeverAlcohol UseStandard Drinks/WeekCommentsNever0 (1 standard drink = 0.6 oz pure alcohol)PHQ-2AnswerDate RecordedTotal Xaaqp14710/04/2024UDIT-CAnswerDate RecordedQ1: How often do you have a [...] ValueDate RecordedSex Assigned at BirthNot on fileLegal KeiBcigpj39/08/2025 12:05 AM ESTGender IdentityNot on fileSexual OrientationNot on filedocumented as of this encounter Progress Notes * Milagros Machado RN - 08/14/2025 12:12 PM EST Palliative care order, face sheet, and progress notes faxed to [facility]. Order for wheelchair, face sheet, and progress note faxed to [facility] in [place]. documented in this encounter Plan of Treatment DateTypeDepartmentCare Team (Latest Contact Info)Wekwjshbmvh12/01/2025 3:30 PM ESTTelemedicine [facility], A Department of [address] [place] [phone] Annita Patton, CERTIFIED SURGICAL TECHNICIAN-KITCHEN STEWARD/STEWARDESS [address] [place] [address], [address] [place] [address] 08/30/2025 10:30 AM ESTInfusion Paola L Chandana [facility] - Medical Oncology [address] [place] [address], [place] [phone] 08/31/2025 8:30 AM ESTInfusion Paola L Chandana [facility] - Medical Oncology [address] [place] [address], [place] [phone] 09/10/2025 1:30 PM ESTOffice Visit [facility], A Department of [address] [place] [address] Annita Patton, CERTIFIED SURGICAL TECHNICIAN-KITCHEN STEWARD/STEWARDESS [address] [place] [address], [address] [place] [address] 09/25/2025 10:00 AM ESTInfusion Paola Steve Chandana [facility] - Medical Oncology [address] [place] [address], [place] [phone] 09/26/2025 8:00 AM ESTTelemedicine [facility], A Department of [address] [place] [address] Annita Patton, CERTIFIED SURGICAL TECHNICIAN-KITCHEN STEWARD/STEWARDESS [address] [facility], [address] [place] [address] 09/26/2025 8:30 AM ESTInfusion Paola Steve Chandana [facility] - Medical Oncology [address] [place] [address], [place] [phone] NameTypePriorityAssociated DiagnosesOrder ScheduleAmbulatory referral to Palliative Medicine Home Visits (Non-[facility])Outpatient ReferralRoutine Endometrial cancer determined by uterine biopsy ([facility]) 1 Occurrences starting 08/14/2025 until 08/14/2026documented as of this encounter Goals GoalPatient Goal TypeAssociated ProblemsRecent ProgressPatient-Stated?Author return home Milagros Escobedo RN Note: Evaluation of progress towards goal: patient plans to return home with family support Autogenerated Goal Care PlanAutogenerated ProblemNoPotts, Elizabethdocumented as of this encounter Visit Diagnoses Diagnosis Endometrial cancer determined by uterine biopsy ([facility])- Primary documented in this encounter Additional Health Concerns Active ProblemsNoted DateDiagnosed DateAutogenerated Qnucvyn40/14/2025Assessment Noted TimePHQ-9 Depression Total Score: 3:45 PM ESTdocumented as of this encounter Care Teams Team MemberRelationshipSpecialtyStart DateEnd Date Bin Sidhu MD [address] [place] [address] PCP - GeneralFamily Puqxcvpp26/9/25documented as of this encounter
--- OUTSIDE RECORDS SUMMARY | 2025-08-24 17:10 | XMS_ITS | Clinical Summary ---
Author Organization [facility] Address [address] [place], [place] [address] Care Team Providers Care Thermodynamics Teacher Name Role Phone Bin Sidhu MD Primary Care Provider Allergies Active AllergyReactionsCriticalityNoted KmxyXgpzctyqQiagdVtxvYdpp44/31/2009 Medications MedicationSigDispense QuantityRefillsLast FilledStart DateEnd DateStatus TETRACYCLINE 500 MG CAP Indications:Knee joint cdjf420ctive naproxen(NAPROSYN 500 MG TAB) Indications:Knee joint pain,Knee bursitis1 PPO BID with food 60 ctive Social History Tobacco UseTypesPacks/DayYears UsedDateSmoking Tobacco: Never Assessed CommentsUnknownSex and Gender InformationValueDate RecordedSex Assigned at Not on fileLegal IutDfsyoz60/02/2012 8:21 AM ESTGender IdentityNot on fileSexual OrientationNot on file Plan of Treatment Health MaintenanceDue DateLast DoneCommentsAnxiety Gjrjdwnba59/05/1973Depression Njsttsefl17/05/1973Hepatitis C Seywtecxp28/05/1973DTaP,Tdap,Td Vaccine (1 - Tdap)1974Mammogram Rdketkugz35/05/1995CT Uqmecokrgizp84/05/2000Cologuard (FIT-DNA)03/31/20002220Dieaapustjd54/05/2000Colorectal Cancer Ispwdpijy24/05/2000 Diabetes Mpzjctopk54/05/2000Fecal Occult Blood2000Lipid Screening 03/31/20009168Xcvbibfiubiph75/05/2000Pneumococcal Vaccine: 50+ (1 of 1 - PCV) 2005Shingrix Vaccine (1 of 2)2005Bone Density Gcvjfosvg73/05/2020 Advance Directive Vwdxptmhbm23/01/2025ovid-19 Vaccine ( - 2024-26 season) 2025Influenza Vaccine (#1)2025RSV Vaccine (1 - 1-dose 75+ series) 2030 Insurance Care Teams Team MemberRelationshipSpecialtyStart DateEnd Date Bin Sidhu MD [address] [place] [address] [facility]05/10/09
--- OUTSIDE RECORDS SUMMARY | 2025-08-24 17:10 | XMS_ITS | Encounter Summary ---
Author Organization [facility] tem Address [id number] [address] [place] [address] Care Team Providers Care Photoresist Contact Printer Name Role Phone Bin Sidhu MD Primary Care Provider [phone] Encounter Details DateTypeDepartmentCare Team (Latest Contact Info)Gqformkqblf89/21/2025Telephone [facility] [address] [place] [phone] Regina Zarate RMA Social History Tobacco UseTypesPacks/DayYears UsedDateSmoking Tobacco: NeverSmokeless Tobacco: NeverAlcohol UseStandard Drinks/WeekCommentsNever0 (1 standard drink = 0.6 oz pure alcohol)PHQ-2AnswerDate RecordedTotal Ssdty87010/04/2024UDIT-CAnswerDate RecordedQ1: How often do you have a [...] ValueDate RecordedSex Assigned at BirthNot on fileLegal ZhzQricgt54/08/2025 12:05 AM ESTGender IdentityNot on fileSexual OrientationNot on filedocumented as of this encounter Miscellaneous Notes * Telephone Encounter - ULI Blanchard - 08/17/2025 9:02 AM EST 08/17/25 Zara from Gynecology Oncology returned my call. She stated she is going to call [facility] and get the records for the patient. The patient will probably be on antibiotics so I will inform Dr. Mackey when she would like to reschedule the port and if the patient will need to have complete the antibiotics before the port procedure. ULI Blanchard / delivery department supervisor 08/17/25 9:30 am I called [facility] [place] [phone] and spoke with Arline in oncology - I informed her of the information pertaining to Eunice's case. That Eunice went to the [facility] ER and admitted, she will be admitted for at least 3 days. I also told her I called & left a message for Milagros & Melinda Vogt Silk Screen Printer Helper. Oncology [phone]. to let them know the status of Eunice per the patient's request. Arline said she would also send a message to them, as well ULI Blanchard / delivery department supervisor 08/17/25 8:15 am I called Eunice on her cell phone - she was admitted to the [facility]. She stated she was told she will be there for at least 3 days. Her diagnosis right now is C-diff. I called Verito at [facility] and cancelled Eunice's port which was scheduled for 08/20/[address] Mackey. She also wanted meto call oncology to inform them. I told her I would. ULI Blanchard / delivery department supervisor 08/17/25 7:39 am This patient had several abnormal labs done in PAT yesterday, one with a critically low potassium of 2.6. She was instructed to go to the ER and stated she was going to [facility]. She was instructed to call your office today, if able, to inquire on proceeding with procedure on 08/20. Lillian Chauhan RN / [facility] documented in this encounter Plan of Treatment DateTypeDepartmentCare Team (Latest Contact Info)Eynnmqxeihs39/01/2025 3:30 PM ESTTelemedicine [facility] Gynecology Oncology, A Department of [address] [place] [address] Annita Patton, BUTTON GRADER-STRETCH PRESS OPERATOR [address] [place] [address], [address] [place] [address] 08/30/2025 10:30 AM ESTInfusion Paola Ellington [facility] - Medical Oncology [address] [place] [phone] 08/31/2025 8:30 AM ESTInfusion Paola Ellington [facility] - Medical Oncology [address] [place] [phone] 09/10/2025 1:30 PM ESTOffice Visit [facility] Gynecology Oncology, A Department of [address] [place] [phone] Annita Patton, BUTTON GRADER-STRETCH PRESS OPERATOR [address] [facility], [address] [place] [address] 09/25/2025 10:00 AM ESTInfusion Paola Ellington [facility] - Medical Oncology [address] [place] [phone] 09/26/2025 8:00 AM ESTTelemedicine [facility], A Department of [address] [place] [address] Annita Patton, BUTTON GRADER[address], [address] [place] [address] 09/26/2025 8:30 AM ESTInfusion Paola Ellington [facility] - Medical Oncology [address] [place] [phone] NameTypePriorityAssociated DiagnosesOrder ScheduleCBC auto differentialLab Routine Encounter [...] Additional Health Concerns Active ProblemsNoted DateDiagnosed DateAutogenerated Jydfgkw81/14/2025Assessment Noted TimePHQ-9 Depression Total Score: 3:45 PM ESTdocumented as of this encounter Care Teams Team MemberRelationshipSpecialtyStart DateEnd Date Bin Sidhu MD [address] [place] [address] PCP - GeneralFamily Idyiljml81/9/25documented as of this encounter
[2025-08-24 17:57] LABS: Alanine Aminotransferase 16 U/L (14-59); Albumin Globulin Ratio 0.8; Albumin Level 2.4 g/dL (3.4-5.0); Alkaline Phosphatase 63 U/L (46-116); Anion Gap 8.9; Aspartate Amino Transferase 18 U/L (15-37); Blood Urea Nitrogen 4.0 mg/dL (7.0-18.0); Calcium 8.5 mg/dL (8.5-10.1); Carbon Dioxide 32.2 mmol/L (21.0-32.0); Chloride 103 mmol/L (98-107); Estimated GFR (African America >60 (>=60 mL/min/1.73m^2); Estimated GFR (Non-African Ame >60 (>=60 mL/min/1.73m^2); Globulin 3.1 g/dL; Glucose 99 mg/dL (74-106); Potassium 3.1 mmol/L (3.5-5.1); Sodium 141 mmol/L (136-145); Total Protein 5.5 g/dL (6.4-8.2)
== END 2025-08-24 17:05 | disposition home or self-care (01) ==
LOC: LAB 17:04
DX: A41.9 Sepsis, unspecified organism (principal); N39.0 Urinary tract infection, site not specified; A04.72 Enterocolitis due to Clostridium difficile, not specified as recurrent
CPT/HCPCS: 36415; 80053

== ENCOUNTER 2025-08-27 16:11 | Outpatient (OUT) | payer MEDICARE, OTHER, SELFPAY ==
--- OUTSIDE RECORDS SUMMARY | 2025-08-16 15:00 | XMS_ITS | Encounter Summary ---
Author Organization [facility] tem Address [id number] [address] [place] [address] Care Team Providers Care Health Workers Name Role Phone Bin Sidhu MD Primary Care Provider [phone] Encounter Details DateTypeDepartmentCare Team (Latest Contact Info)Towjlbhtyge26/20/2025 3:00 PM ESTProcedure visit [facility] [address] [place] [address] Preop examination (Primary Dx); Anemia, unspecified type Social History Tobacco UseTypesPacks/DayYears UsedDateSmoking Tobacco: NeverSmokeless Tobacco: NeverAlcohol UseStandard Drinks/WeekCommentsNever0 (1 standard drink = 0.6 oz pure alcohol)PHQ-2AnswerDate RecordedTotal Lryeb36410/04/2024UDIT-CAnswerDate RecordedQ1: How often do you have a [...] ValueDate RecordedSex Assigned at BirthNot on fileLegal FmgYatwbe29/08/2025 12:05 AM ESTGender IdentityNot on fileSexual OrientationNot on filedocumented as of this encounter Last Filed Vital Signs Vital SignReadingTime TakenCommentsBlood Pressure--Pulse--Temperature-- Respiratory Rate--Oxygen Saturation--Inhaled Oxygen Concentration--Gplyny36.3 kg (155 lb)08/16/2025 3:27 PM MYTUsafmg154.5 cm (5' 2 )08/16/2025 3:27 PM ESTBody [...] in at the main lobby of the [facility]- registration desk is straight ahead as soon as you walk in. Tell them you are here for surgery. 2. If you have a Living Will/Durable Power of Youth Teacher for Health Care that is not on [...] after you have bathed. 5. NO nail algerian/acrylic on at least one finger. If you are having a hand, wrist or foot surgery then all nail algerian and artificial/acrylic nails must be removed from [...] please call the Preadmission Testing office at [phone], Mon.-Fri. 7 a.m.-3 p.m. Leave a voicemail [...] in at the main lobby of the [facility]- registration desk is straight ahead as soon as you walk in. Tell them you are here for surgery. 2. If you have a Living Will/Durable Power of Youth Teacher for Health Care that is not on [...] after you have bathed. 5. NO nail algerian/acrylic on at least one finger. If you are having a hand, wrist or foot surgery then all nail algerian and artificial/acrylic nails must be removed from [...] please call the Preadmission Testing office at [phone], Mon.-Fri. 7 a.m.-3 p.m. Leave a voicemail [...] Plan of Treatment DateTypeDepartmentCare Team (Latest Contact Info)Wjbjsnrpafo52/04/2025 10:30 AM ESTInfusion [facility] [address] [place] [phone] 08/31/2025 8:30 AM ESTInfusion [facility] [address] [place] [phone] 09/10/2025 1:30 PM ESTOffice Visit [facility] A Department of [address] [place] [address] Annita Patton, TELECOMMUNICATIONS MANAGER-POLICE AND FIRE DISPATCHER [address] [facility] [place] [address] 09/25/2025 10:00 AM ESTInfusion [facility] [place] [address] 09/26/2025 8:00 AM ESTTelemedicine [facility], A Department of [address] [place] [address] Annita Patton, TELECOMMUNICATIONS MANAGER-POLICE AND FIRE DISPATCHER [address] [facility] [place] [address] 09/26/2025 8:30 AM ESTInfusion [facility] - [facility]cology [address] [place] [phone] documented as of this encounter Goals GoalPatient Goal TypeAssociated ProblemsRecent ProgressPatient-Stated?Author return home Milagros Escobedo RN Note: Evaluation of progress towards goal: patient plans to return home with family support Autogenerated Goal Care PlanAutogenerated ProblemNoPotts, Elizabethdocumented as of this encounter Results * (ABNORMAL) Basic Metabolic Panel (08/16/2025 3:52 PM EST)ComponentValueRef RangeTest MethodAnalysis TimePerformed AtPathologist LkbxsktybDFOGUO364852 - 146 mmol/L110/16/2024 4:17 PM ESTPROMEDIKAISER FOUNDATION HOSPITALPOTASSIUM 2.6(LL)3.5 - 5.0 mmol/L110/16/2024 4:17 PM ESTPROMEDIKAISER FOUNDATION HOSPITALCHLORIDE10398 - 109 mmol/L110/16/2024 4:17 PM ESTPROMEDIKAISER FOUNDATION HOSPITALCARBON WATTGPJ1865 - 32 mmol/L110/16/2024 4:17 PM ESTPROMEDIKAISER FOUNDATION HOSPITALANION DPS726 - 15 mmol/L110/16/2024 4:17 PM EST [facility] UREA LDVMJOWT068 - 27 mg/dL08/16/2025 4:[address] [facility] CENTERCREATININE0.700.40 - 1.00 mg/dL 08/16/2025 4:17 PM [facility]:METHOD TRACEABLE TO IDMS ATJUYYCPTVIPPHM858(H)65 - 99 mg/dL08/16/2025 4:[address] [facility] CENTERCALCIUM8.58.5 - 10.5 mg/dL08/16/2025 4:17 PM [facility] HOSPITALEGFR Non-Race Dependent>90>=60 ml/min/1.73sq.m110/16/2024 4:17 PM [facility] Comment: Reported eGFR is based on the CKD-EPI 2020 equation that does not use a race coefficient. Specimen (Source)Anatomical Location / LateralityCollection Method / Volume Collection TimeReceived TimeBloodVenous blood / UnknownVenipuncture / Unknown 08/16/2025 3:52 PM EST08/16/2025 3:52 PM EST Narrative Authorizing ProviderResult TypeResult StatusDaapollo Angulo MDLAB BLOOD ORDERABLESFinal ResultPerforming OrganizationAddressCity/State/ZIP CodePhone Number [facility] [address] * (ABNORMAL) CBC auto differential (08/16/2025 3:52 PM EST)ComponentValueRef RangeTest MethodAnalysis TimePerformed AtPathologist KrkrjmwhtUGP26.6(H)4 - 11 10^9/L110/16/2024 4:45 PM [facility]PITALRBC Count4.06 3.8 - 5.2 10^12/L110/16/2024 4:45 PM [facility] Svzxwgcigs64.4(L)11.7 - 15.5 g/dL08/16/2025 4:45 PM [facility]ITALHematocrit34.4(L)35 - 47 %08/16/2025 4:45 PM [facility]ITALMCV8580 - 100 fL08/16/2025 4:45 PM [facility]ITALMCH28.027 - 34 pg08/16/2025 4:45 PM [facility]ITALMCHC33.032 - 36 g/dL08/16/2025 4:45 PM [facility]ITALRDW16.6(H)11.5 - 15 %08/16/2025 4:45 PM [facility]ITALPlatelet Xqtea398(H)150 - 450 10^9/L110/16/2024 4:45 PM [facility]ITALMPV8.07 - 12 fL08/16/2025 4:[address] [facility]ENTERBands %8%08/16/2025 4:45 PM [facility]Comment:This is an appended report. These results have been appended to a previously preliminary verified report.Neutrophils %81 %08/16/2025 4:45 PM [facility]Comment:This is an appended report. These results have been appended to a previously preliminary verified report.Lymphocytes %4%08/16/2025 4:45 PM [facility]Comment:This is an appended report. These results have been appended to a previously preliminary verified report.Monocytes %7%08/16/2025 4:45 PM [facility]Comment:This is an appended report. These results have been appended to a previously preliminary verified report.Neutrophils Absolute (M)27.3(H)1.5 - 6.6 10^9/L110/16/2024 4:[address] [facility]Comment:This is an appended report. These results have been appended to a previously preliminary verified report. Lymphocytes Absolute1.21.0 - 3.5 10^9/L110/16/2024 4:45 PM [facility]Comment:This is an appended report. These results have been appended to a previously preliminary verified report.Monocytes Absolute2.1(H) 0.0 - 0.9 10^9/L110/16/2024 4:[address] [facility] Comment:This is an appended report. These results have been appended to a previously preliminary verified report.Polychromasia1+08/16/2025 4:[address] [facility]ENTERComment:This is an appended report. These results have been appended to a previously preliminary verified report. Elliptocytes1+08/16/2025 4:[address] [facility] Comment:This is an appended report. These results have been appended to a previously preliminary verified report.Stomatocytes1+08/16/2025 4:[address] PM [address] [facility]Comment:This is an appended report. These results have been appended to a previously preliminary verified report. Differential TypeMANUAL UTOZHQKHXDPU87/20/2025 4:[address] [facility] CENTERComment:This is an appended report. These results have been appended to a previously preliminary verified report.Specimen (Source) Anatomical Location / LateralityCollection Method / VolumeCollection Time Received TimeBloodVenous blood / UnknownVenipuncture / Ortnjdo9108/16/2025 3:52 PM EST08/16/2025 3:52 PM EST Narrative Authorizing ProviderResult TypeResult StatusDaapollo Angulo MDLAB BLOOD ORDERABLESFinal ResultPerforming OrganizationAddressCity/State/ZIP CodePhone Number [facility] [address] documented in this encounter Visit Diagnoses Diagnosis Preop examination- Primary Unspecified pre-operative examination Anemia, unspecified type documented in this encounter Additional Health Concerns Active ProblemsNoted DateDiagnosed DateAutogenerated Fgrkvne81/14/2025Assessment Noted TimePHQ-9 Depression Total Score: 3:45 PM ESTdocumented as of this encounter Care Teams Team MemberRelationshipSpecialtyStart DateEnd Date Bin Sidhu MD [address] [place] [address] PCP - GeneralFamily Udbfeeer15/9/25documented as of this encounter
--- OUTSIDE RECORDS SUMMARY | 2025-08-27 15:30 | XMS_ITS | Encounter Summary ---
Author Organization [facility] tem Address [id number] [address] [place] [address] Care Team Providers Care Correctional Supervising Cook Name Role Phone Bin Sidhu MD Primary Care Provider [phone] Encounter Details DateTypeDepartmentCare Team (Latest Contact Info)Nknvehrypar15/01/2025 3:30 PM ESTTelemedicine [facility], A Department of [address] [place] [address] Annita Patton, DISASTER RECOVERY SPECIALIST-REGIONAL MARKETING MANAGER [address] [place] [address], [address] [place] [address] Endometrial cancer determined by uterine biopsy ([facility]) (Primary Dx); Encounter for chemotherapy management Social History Tobacco UseTypesPacks/DayYears UsedDateSmoking Tobacco: NeverSmokeless Tobacco: NeverAlcohol UseStandard Drinks/WeekCommentsNever0 (1 standard drink = 0.6 oz pure alcohol)PHQ-2AnswerDate RecordedTotal Rrexl55710/04/2024UDIT-CAnswerDate RecordedQ1: How often do you have a [...] ValueDate RecordedSex Assigned at BirthNot on fileLegal UomYdzugp30/08/2025 12:05 AM ESTGender IdentityNot on fileSexual OrientationNot on filedocumented as of this encounter Plan of Treatment DateTypeDepartmentCare Team (Latest Contact Info)Naatesolqck05/04/2025 10:30 AM ESTInfusion Paola [facility] - Medical Oncology [address] [place] [phone] 08/31/2025 8:30 AM ESTInfusion Paola [facility] - Medical Oncology [address] [place] [phone] 09/10/2025 1:30 PM ESTOffice Visit [facility], A Department of [address] [place] [address] Annita Patton, DISASTER RECOVERY SPECIALIST-REGIONAL MARKETING MANAGER [address] [facility], [address] [place] [address] 09/25/2025 10:00 AM ESTInfusion Paola Ellington [facility] - Medical Oncology [address] [place] [address] 09/26/2025 8:00 AM ESTTelemedicine [facility], A [facility] [address] [place] [phone] Annita Patton, DISASTER RECOVERY SPECIALIST-REGIONAL MARKETING MANAGER [address] [place] [address], [address] [place] [address] 09/26/2025 8:30 AM ESTInfusion Paola Ellington [facility] - Medical Oncology [address] [place] [phone] NameTypePriorityAssociated DiagnosesOrder ScheduleCaris [place] Cancer Seek??? + Additional TestsLabRoutine Endometrial cancer determined by uterine biopsy ([facility]) Ordered: 08/27/2025documented as of this encounter Goals GoalPatient Goal TypeAssociated ProblemsRecent ProgressPatient-Stated?Author return home Milagros Escobedo RN Note: Evaluation of progress towards goal: patient plans to return home with family support Autogenerated Goal Care PlanAutogenerated ProblemNoPotts, Elizabethdocumented as of this encounter Visit Diagnoses Diagnosis Endometrial cancer determined by uterine biopsy ([facility])- Primary Encounter for chemotherapy management documented in this encounter Additional Health Concerns Active ProblemsNoted DateDiagnosed DateAutogenerated Yuarnlr8308/10/2025ssessment Noted TimePHQ-9 Depression Total Score: 3:45 PM ESTdocumented as of this encounter Care Teams Team MemberRelationshipSpecialtyStart DateEnd Date Bin Sidhu MD [address] [place], [place] [id number] PCP - GeneralFamily Mcsqznzy38/9/25documented as of this encounter
--- OUTSIDE RECORDS SUMMARY | 2025-08-27 16:14 | XMS_ITS | Encounter Summary ---
Author Organization [facility] tem Address [facility] [place] [id number] [address] [place] [address] Care Team Providers Care Shipwright Name Role Phone Bin Sidhu MD Primary Care Provider [phone] Reason for Referral * Consultation (Routine) - Pending ReviewSpecialtyDiagnoses / ProceduresReferred By ContactReferred To Contact Diagnoses Endometrial cancer determined by uterine biopsy ([facility]) Melinda Coffey PA [address] [place] [address] Phone: tel: fax: Referral IDStatusReasonStart DateExpiration DateVisits RequestedVisits [id number] Review Service Not Available In-House Encounter Details DateTypeDepartmentCare Team (Latest Contact Info)Fikflpsllof60/18/2025Orders Only [facility] Gynecology Oncology, A Department of [facility] [address] [place] [address] Milagros Machado RN Endometrial cancer determined by uterine biopsy ([facility]) (Primary Dx) Social History Tobacco UseTypesPacks/DayYears UsedDateSmoking Tobacco: NeverSmokeless Tobacco: NeverAlcohol UseStandard Drinks/WeekCommentsNever0 (1 standard drink = 0.6 oz pure alcohol)PHQ-2AnswerDate RecordedTotal Qzwpy36610/04/2024UDIT-CAnswerDate RecordedQ1: How often do you have a [...] ValueDate RecordedSex Assigned at BirthNot on fileLegal WkxCkkkiq65/08/2025 12:05 AM ESTGender IdentityNot on fileSexual OrientationNot on filedocumented as of this encounter Progress Notes * Milagros Machado RN - 08/14/2025 12:12 PM EST Palliative care order, face sheet, and progress notes faxed to [facility]. Order for wheelchair, face sheet, and progress note faxed to [facility] in [place]. documented in this encounter Plan of Treatment DateTypeDepartmentCare Team (Latest Contact Info)Xxnhqqorcwu12/04/2025 10:30 AM ESTInfusion Paola Ellington [facility] - Medical Oncology [address] [place] [phone] 08/31/2025 8:30 AM ESTInfusion Paola Ellington [facility] Medical Oncology [address] [place] [phone] 09/10/2025 1:30 PM ESTOffice Visit [facility], A Department of [address] [place] [phone] Annita Patton, [address], [address] [place] [address] 09/25/2025 10:00 AM ESTInfusion Paola Ellington [facility] Medical Oncology [address] [place] [phone] 09/26/2025 8:00 AM ESTTelemedicine [facility], A Department of [address] [place] [phone] Annita Patton, [address], [address] [place] [address] 09/26/2025 8:30 AM ESTInfusion Paola Ellington [facility] Medical Oncology [address] [place] [phone] NameTypePriorityAssociated DiagnosesOrder ScheduleAmbulatory referral to Palliative Medicine Home Visits (Non-[facility])Outpatient ReferralRoutine Endometrial cancer determined by uterine biopsy ([facility]) 1 Occurrences starting 08/14/2025 until 08/14/2026documented as of this encounter Goals GoalPatient Goal TypeAssociated ProblemsRecent ProgressPatient-Stated?Author return home GeneralYesMeek, Milagros, RN Note: Evaluation of progress towards goal: patient plans to return home with family support Autogenerated Goal Care PlanAutogenerated ProblemNoPotts, Elizabethdocumented as of this encounter Visit Diagnoses Diagnosis Endometrial cancer determined by uterine biopsy ([facility])- Primary documented in this encounter Additional Health Concerns Active ProblemsNoted DateDiagnosed DateAutogenerated Jllssmk5808/10/2025ssessment Noted TimePHQ-9 Depression Total Score: 3:45 PM ESTdocumented as of this encounter Care Teams Team MemberRelationshipSpecialtyStart DateEnd Date Bin Sidhu MD [address] [place] [address] PCP - GeneralFamily Tqoutgxw67/9/25documented as of this encounter
--- OUTSIDE RECORDS SUMMARY | 2025-08-27 16:14 | XMS_ITS | Encounter Summary ---
Author Organization [facility] tem Address [facility] [id number] [address] [place] [address] Care Team Providers Care Rental Boats Caretaker Name Role Phone Bin Sidhu MD Primary Care Provider [phone] Encounter Details DateTypeDepartmentCare Team (Latest Contact Info)Awrutxlrclf32/25/2025Tumor Conference [facility] Gynecology Oncology, A Department of [address] [place] [address] Annita Patton, AOC PLANS INTELLIGENCE OFFICER-ALARM INVESTIGATOR [address] [place] [address], [address] [place] [address] Social History Tobacco UseTypesPacks/DayYears UsedDateSmoking Tobacco: NeverSmokeless Tobacco: NeverAlcohol UseStandard Drinks/WeekCommentsNever0 (1 standard drink = 0.6 oz pure alcohol)PHQ-2AnswerDate RecordedTotal Pqmry67910/04/2024UDIT-CAnswerDate RecordedQ1: How often do you have a [...] ValueDate RecordedSex Assigned at BirthNot on fileLegal UlxGtdsyr90/08/2025 12:05 AM ESTGender IdentityNot on fileSexual OrientationNot on filedocumented as of this encounter Miscellaneous Notes * Tumor Conference Note - Annita Patton APRN-ALARM INVESTIGATOR - 08/21/2025 10:29 AM EST Images from the original note were not included. Multidisciplinary Cancer Conference Center Note Patient Name: Eunice Anderson : 1955 Conference Type:ELEVATOR MECHANIC APPRENTICE Conference Date: 08/21/25 Patient's Care Team: Patient Care Team: Bin Sidhu MD as PCP - General (Family Medicine) Milagros Machado RN as Registered Nurse (Gynecologic Oncology) Rocio Alexander MD as Consulting Physician (Obstetrics & Gynecology) Dennis Monson MD as Referring Physician (Gynecologic Oncology) RE Fay as Physician Armored Machine Operator (Gynecologic Oncology) Physicians in attendance: Corey Mcdaniel Ali, Forquer Site/Laterality/Histology: Uterus Patient Presentation: Eunice Anderson is a 70 y.o. female who presented as transport from [facility] for vaginal bleeding. Patient reports [...] regarding trials, Please call Clinical Research at [phone] National Guidelines discussed (NCCN, AUA, NCI, etc): [...] can be directed to the Cancer Registry: [phone] documented in this encounter Plan of Treatment DateTypeDepartmentCare Team (Latest Contact Info)Ayjnxrledvv99/04/2025 10:30 AM ESTInfusion [facility] - Medical Oncology [address] [place] [phone] 08/31/2025 8:30 AM ESTInfusion Paola Ellington [facility] - Medical Oncology [address] [place] [phone] 09/10/2025 1:30 PM ESTOffice Visit [facility], A Department of [address] [place] [phone] Annita Patton, AOC PLANS INTELLIGENCE OFFICER-[address], [address] [place] [address] 09/25/2025 10:00 AM ESTInfusion [facility] - Medical Oncology [address] [place] [phone] 09/26/2025 8:00 AM ESTTelemedicine [facility], A Department of [address] [place] [phone] Annita Patton, AOC PLANS INTELLIGENCE OFFICER-[address], [address] [place] [address] 09/26/2025 8:30 AM ESTInfusion Paola L Chandana [facility] - Medical Oncology [address] [place] [phone] documented as of this encounter Goals GoalPatient Goal TypeAssociated ProblemsRecent ProgressPatient-Stated?Author return home Milagros Escobedo RN Note: Evaluation of progress towards goal: patient plans to return home with family support Autogenerated Goal Care PlanAutogenerated ProblemNoPotts, Elizabethdocumented as of this encounter Visit Diagnoses Not on filedocumented in this encounter Additional Health Concerns Active ProblemsNoted DateDiagnosed DateAutogenerated Sikhmvh11/14/2025Assessment Noted TimePHQ-9 Depression Total Score: 3:45 PM ESTdocumented as of this encounter Care Teams Team MemberRelationshipSpecialtyStart DateEnd Date Bin Sidhu MD [address] [place] [address] PCP - GeneralFamily Bwfjazlv37/9/25documented as of this encounter
--- OUTSIDE RECORDS SUMMARY | 2025-08-27 16:14 | XMS_ITS | Encounter Summary ---
Author Organization [facility] tem Address [id number] [address] [place] [address] Care Team Providers Care Rib Trim Separator Name Role Phone Bin Sidhu MD Primary Care Provider [phone] Encounter Details DateTypeDepartmentCare Team (Latest Contact Info)Ehomkzdvbrt53/19/2025Telephone [facility] Gy[facility]cology Oncology, A Department of [facility] [address] [facility] [address] [place] [address] Milagros Machado RN Social History Tobacco UseTypesPacks/DayYears UsedDateSmoking Tobacco: NeverSmokeless Tobacco: NeverAlcohol UseStandard Drinks/WeekCommentsNever0 (1 standard drink = 0.6 oz pure alcohol)PHQ-2AnswerDate RecordedTotal Erldr38910/04/2024UDIT-CAnswerDate RecordedQ1: How often do you have a [...] ValueDate RecordedSex Assigned at BirthNot on fileLegal UlsSyrpio85/08/2025 12:05 AM ESTGender IdentityNot on fileSexual OrientationNot on filedocumented as of this encounter Miscellaneous Notes * Telephone Encounter - Milagros Machado RN - 08/15/2025 4:04 PM EST Patient contacted office stating PET CT is scheduled for 08/28. Patient also stated that the RN she scheduled PET CT with advised her to try metamucil for her diarrhea. Underwear Welter advised patient that metamucil is usually used for constipation but has been known to help with diarrhea as well and that she could try it it if she wanted to. Patient verbalized her understanding. documented in this encounter Plan of Treatment DateTypeDepartmentCare Team (Latest Contact Info)Pxlpyqkkqpf50/04/2025 10:30 AM ESTInfusion Paola Ellington [facility] - Medical Oncology [address] [place] [phone] 08/31/2025 8:30 AM ESTInfusion Paola Ellington [facility] - Medical Oncology [address] [place] [phone] 09/10/2025 1:30 PM ESTOffice Visit [facility], A Department of [facility] [address] [place] [phone] Annita Patton, PACU RN-DIE REPAIR MACHINIST [address] [place] [address], [address] [place] [address] 09/25/2025 10:00 AM ESTInfusion Paola L Chandana [facility] - Medical Oncology [address] [place] [phone] 09/26/2025 8:00 AM ESTTelemedicine [facility] Gy[facility]cology Oncology, A Department of [address] [place] [phone] Annita Patton, PACU RN-DIE REPAIR MACHINIST [address] [place] [address], [address] [place] [address] 09/26/2025 8:30 AM ESTInfusion Paola Steve Chandana [facility] - Medical Oncology [address] [place] [phone] documented as of this encounter Goals GoalPatient Goal TypeAssociated ProblemsRecent ProgressPatient-Stated?Author return home Milagros Escobedo RN Note: Evaluation of progress towards goal: patient plans to return home with family support Autogenerated Goal Care PlanAutogenerated ProblemNoPotts, Elizabethdocumented as of this encounter Visit Diagnoses Not on filedocumented in this encounter Additional Health Concerns Active ProblemsNoted DateDiagnosed DateAutogenerated Llddruq0508/10/2025ssessment Noted TimePHQ-9 Depression Total Score: 3:45 PM ESTdocumented as of this encounter Care Teams Team MemberRelationshipSpecialtyStart DateEnd Date Bin Sidhu MD [address] [place], [place] [phone] PCP - GeneralFamily Mqdqewqs24/9/25documented as of this encounter
--- OUTSIDE RECORDS SUMMARY | 2025-08-27 16:14 | XMS_ITS | Encounter Summary ---
Author Organization [facility] Address [id number] [address] [place] [address] Care Team Providers Care Financial Aid Administrator Name Role Phone Bin Sidhu MD Primary Care Provider [phone] Encounter Details DateTypeDepartmentCare Team (Latest Contact Info)Jhdnnarstqw62/21/2025Telephone [facility] [address] [place] [phone] Regina Zarate RMA Social History Tobacco UseTypesPacks/DayYears UsedDateSmoking Tobacco: NeverSmokeless Tobacco: NeverAlcohol UseStandard Drinks/WeekCommentsNever0 (1 standard drink = 0.6 oz pure alcohol)PHQ-2AnswerDate RecordedTotal Elcfm49110/04/2024UDIT-CAnswerDate RecordedQ1: How often do you have a [...] ValueDate RecordedSex Assigned at BirthNot on fileLegal NvhVmsfql44/08/2025 12:05 AM ESTGender IdentityNot on fileSexual OrientationNot on filedocumented as of this encounter Miscellaneous Notes * Telephone Encounter - ULI Blanchard - 08/17/2025 9:02 AM EST 08/17/25 Zara from Gynecology Oncology returned my call. She stated she is going to call [facility] and get the records for the patient. The patient will probably be on antibiotics so I will inform Dr. Mackey when she would like to reschedule the port and if the patient will need to have complete the antibiotics before the port procedure. ULI Blanchard / customs port director 08/17/25 9:30 am I called [facility] [employer] [phone] and spoke with Arline in oncology - I informed her of the information pertaining to Eunice's case. That Eunice went to the [facility] ER and admitted, she will be admitted for at least 3 days. I also told her I called & left a message for Milagros & Melinda [facility]ogt Personal Care Service Provider. Oncology [phone]. to let them know the status of Eunice per the patient's request. Arline said she would also send a message to them, as well ULI Blanchard / customs port director 08/17/25 8:15 am I called Eunice on her cell phone - she was admitted to the [facility]. She stated she was told she will be there for at least 3 days. Her diagnosis right now is C-diff. I called Verito at [facility] and cancelled Eunice's port which was scheduled for 08/20/[address] Mackey. She also wanted meto call oncology to inform them. I told her I would. ULI Blanchard / customs port director 08/17/25 7:39 am This patient had several abnormal labs done in PAT yesterday, one with a critically low potassium of 2.6. She was instructed to go to the ER and stated she was going to [facility]. She was instructed to call your office today, if able, to inquire on proceeding with procedure on 08/20. Lillian Chauhan RN / [facility] PAT documented in this encounter Plan of Treatment DateTypeDepartmentCare Team (Latest Contact Info)Ibsmqxikbiy61/04/2025 10:30 AM ESTInfusion Paola Ellington [facility] - Medical Oncology [address] [place] [phone] 08/31/2025 8:30 AM ESTInfusion Paola Ellington [facility] - Medical Oncology [address] [place] [phone] 09/10/2025 1:30 PM ESTOffice Visit [facility], A Department of [address] [place] [phone] Annita Patton, PRACTICAL MINISTRIES PROFESSOR-RESIDENT SURGEON [address] [place] [address], [address] [place] [address] 09/25/2025 10:00 AM ESTInfusion Paola Ellington [facility] - Medical Oncology [address] [place] [phone] 09/26/2025 8:00 AM ESTTelemedicine [facility], A Department of [place] [address] [facility] [address] [place] [phone] Annita Patton, PRACTICAL MINISTRIES PROFESSOR-RESIDENT SURGEON [address] [facility], [address] [place] [address] 09/26/2025 8:30 AM ESTInfusion [facility] - Medical Oncology [address] [place] [phone] NameTypePriorityAssociated DiagnosesOrder ScheduleCBC auto differentialLab Routine Encounter [...] Additional Health Concerns Active ProblemsNoted DateDiagnosed DateAutogenerated Yemqdgk47/14/2025Assessment Noted TimePHQ-9 Depression Total Score: 3:45 PM ESTdocumented as of this encounter Care Teams Team MemberRelationshipSpecialtyStart DateEnd Date Bin Sidhu MD [address] [place] [address] PCP - GeneralFamily Xzhbpvpi44/9/25documented as of this encounter
--- OUTSIDE RECORDS SUMMARY | 2025-08-27 16:14 | XMS_ITS | Encounter Summary ---
Author Organization [facility] Address [id number] [address] [place] [address] Care Team Providers Care Switch Crew Supervisor Name Role Phone Bin Sidhu MD Primary Care Provider [phone] Encounter Details DateTypeDepartmentCare Team (Latest Contact Info)Pbkqbfjqknj57/20/2025Travel Social History Tobacco UseTypesPacks/DayYears UsedDateSmoking Tobacco: NeverSmokeless Tobacco: NeverAlcohol UseStandard Drinks/WeekCommentsNever0 (1 standard drink = 0.6 oz pure alcohol)PHQ-2AnswerDate RecordedTotal Asmnb13610/04/2024UDIT-CAnswerDate RecordedQ1: How often do you have a [...] ValueDate RecordedSex Assigned at BirthNot on fileLegal RvqIdjoxw04/08/2025 12:05 AM ESTGender IdentityNot on fileSexual OrientationNot on filedocumented as of this encounter Plan of Treatment DateTypeDepartmentCare Team (Latest Contact Info)Wwhkwwdiiod71/04/2025 10:30 AM ESTInfusion Paola L Chandana [facility] - Medical Oncology [address] [place] [phone] 08/31/2025 8:30 AM ESTInfusion Paola Steve Chandana [facility] - Medical Oncology [address] [place] [phone] 09/10/2025 1:30 PM ESTOffice Visit [facility], A Department of [address] [place] [address] Annita Patton, BOOKMOBILE DRIVER-CONTINUOUS CONVEYOR SCREEN DRIER [facility], [address] [place] [address] 09/25/2025 10:00 AM ESTInfusion Paola Steve Chandana [facility] - Medical Oncology [address] [place] [phone] 09/26/2025 8:00 AM ESTTelemedicine [facility], A Department of [address] [place] [address] Annita Patton, BOOKMOBILE DRIVER-CONTINUOUS CONVEYOR SCREEN DRIER [address] [facility], [address] [place] [address] 09/26/2025 8:30 AM ESTInfusion Paola Wilson [facility] - Medical Oncology [address] [place] [phone] documented as of this encounter Goals GoalPatient Goal TypeAssociated ProblemsRecent ProgressPatient-Stated?Author return home Milagros Escobedo RN Note: Evaluation of progress towards goal: patient plans to return home with family support Autogenerated Goal Care PlanAutogenerated ProblemNoPotts, Elizabethdocumented as of this encounter Visit Diagnoses Not on filedocumented in this encounter Additional Health Concerns Active ProblemsNoted DateDiagnosed DateAutogenerated Wzokrau00/14/2025Assessment Noted TimePHQ-9 Depression Total Score: 3:45 PM ESTdocumented as of this encounter Care Teams Team MemberRelationshipSpecialtyStart DateEnd Date Bin Sidhu MD [address] [place] [address] PCP - GeneralFamily Fwdbynnd90/9/25documented as of this encounter
--- OUTSIDE RECORDS SUMMARY | 2025-08-27 16:14 | XMS_ITS | Encounter Summary ---
Author [facility] Address [id number] [address] [place] [address] Care Team Providers Care Scrap Drop Operator Name Role Phone Bin Sidhu MD Primary Care Provider [phone] Encounter Details DateTypeDepartmentCare Team (Latest Contact Info)Wscdzfiuzqo64/17/2025Telephone [facility] Gynecology Oncology, A Department of [facility] [address] [facility] [address] [place] [address] Milagros Machado RN Social History Tobacco UseTypesPacks/DayYears UsedDateSmoking Tobacco: NeverSmokeless Tobacco: NeverAlcohol UseStandard Drinks/WeekCommentsNever0 (1 standard drink = 0.6 oz pure alcohol)PHQ-2AnswerDate RecordedTotal Yowus78910/04/2024UDIT-CAnswerDate RecordedQ1: How often do you have a [...] ValueDate RecordedSex Assigned at BirthNot on fileLegal WvtHlhfyk25/08/2025 12:05 AM ESTGender IdentityNot on fileSexual OrientationNot on filedocumented as of this encounter Miscellaneous Notes * Telephone Encounter - Milagros Machado RN - 08/13/2025 1:47 PM EST Core Shaper contacted patient and advised her she can take 50 mg benadryl [address] to [address] to decrease risk of reaction per Melinda Coffey. Patient verbalized her understanding and states she will use OTC benadryl. She is aware that she will need a solid waste truck driver. documented in this encounter Plan of Treatment DateTypeDepartmentCare Team (Latest Contact Info)Jimzofqocud67/04/2025 10:30 AM ESTInfusion Paola Ellington [facility] - Medical Oncology [address] [place] [phone] 08/31/2025 8:30 AM ESTInfusion Paola Ellington [facility] - Medical Oncology [address] [place] [phone] 09/10/2025 1:30 PM ESTOffice Visit [facility], A Department of [place] [address] [phone] Annita Patton, ACID WASH OPERATOR-FOREIGN EXCHANGE POSITION CLERK [address] [facility], [address] [place] [address] 09/25/2025 10:00 AM ESTInfusion Paola Ellington [facility] - Medical Oncology [address] [place] [phone] 09/26/2025 8:00 AM ESTTelemedicine [facility], A Department of [address] [place] [phone] Annita Patton, ACID WASH OPERATOR-FOREIGN EXCHANGE POSITION CLERK [address] [facility], [address] [place] [address] 09/26/2025 8:30 AM ESTInfusion Paolayenny Ellington [facility] - Medical Oncology [address] [place] [phone] documented as of this encounter Goals GoalPatient Goal TypeAssociated ProblemsRecent ProgressPatient-Stated?Author return home Milagros Escobedo RN Note: Evaluation of progress towards goal: patient plans to return home with family support Autogenerated Goal Care PlanAutogenerated ProblemNoPotts, Elizabethdocumented as of this encounter Visit Diagnoses Not on filedocumented in this encounter Additional Health Concerns Active ProblemsNoted DateDiagnosed DateAutogenerated Svnvfha0308/10/2025ssessment Noted TimePHQ-9 Depression Total Score: 3:45 PM ESTdocumented as of this encounter Care Teams Team MemberRelationshipSpecialtyStart DateEnd Date Bin Sidhu MD [address] [place], [place] [phone] PCP - GeneralFamily Wndcvrqg91/9/25documented as of this encounter
--- OUTSIDE RECORDS SUMMARY | 2025-08-27 16:14 | XMS_ITS ---
Author Organization [employer] tem Address [id number] [address] [place] [address] Care Team Providers Care Peoplesoft Functional Analyst Name Role Phone Bin Sidhu MD Primary Care Provider [phone] Active Problems ProblemNoted DateDiagnosed DateEndometrial cancer determined by uterine biopsy 08/08/2025 Cancer Staging: Pathologic stage from 08/07/2025:FIGO Stage IIIB2, calculated as Stage Unknown (pT3b, pNX) - Unsigned Current Treatment and Therapy Plans Adult oncology/infusion center flush orders* Plan Start Date:08/08/2025 Plan Provider:RE Fay Linked Problems Endometrial cancer determine d by uterine biopsy ([facility]) Treatment Medications No medications scheduled. Oncology hydration and supportive care* Plan Start Date:08/08/2025 Plan Provider:RE Fay Linked Problems Endometrial cancer determine d by uterine biopsy ([facility]) Treatment Medications No medications scheduled. Oncology standing electrolyte replacement* Plan Start Date:08/08/2025 Plan Provider:RE Fay Linked Problems Endometrial cancer determine d by uterine biopsy ([facility]) Treatment Medications No medications scheduled. OP ADVANCED ENDOMETRIAL PEMBROLIZUMAB / PACLItaxel / CARBOplatin X 6 CYCLES THEN PEMBROLIZUMAB ALONE* Plan Start Date:08/07/2025 Plan Provider:Rocio Alexander MD Linked Problems Endometrial cancer determine d by uterine biopsy ([facility]) Treatment MedicationsCurrent Day (Day 1, Cycle 1 - Planned for 08/21/2025)Next Day (Day 1, Cycle 2 - Planned for 09/11/2025)* * CARBOplatin (PARAPLATIN) chemo IVPB (by AUC) piggyback * PACLItaxel (TAXOL) chemo IVPB piggyback * pembrolizumab (KEYTRUDA) * pembrolizumab (KEYTRUDA) chemo IVPB piggyback * * CARBOplatin (PARAPLATIN) in sodium chloride 0.9 % 250 mL chemo IVPB * PACLitaxeL (TAXOL) 325.8 mg in sodium chloride 0.9 % (non-pvc) 500 mL chemo IVPB * pembrolizumab (KEYTRUDA) 200 mg in sodium chloride 0.9 % 100 mL chemo IVPB * * CARBOplatin (PARAPLATIN) in sodium chloride 0.9 % 250 mL chemo IVPB * PACLitaxeL (TAXOL) 325.8 mg in sodium chloride 0.9 % (non-pvc) 500 mL chemo IVPB * pembrolizumab (KEYTRUDA) 200 mg in sodium chloride 0.9 % 100 mL chemo IVPB Past Treatment and Therapy Plans No past plan information found. Resolved Problems ProblemNoted DateDiagnosed DateResolved DateVaginal pohrisfa98 Pelvic massVagina jyznxxny17
--- OUTSIDE RECORDS SUMMARY | 2025-08-27 16:14 | XMS_ITS | Clinical Summary ---
Author Organization [employer] [facility] tem Address [id number] [address] [place] [address] Care Team Providers Care Billing Supervisor Name Role Phone Bin Sidhu MD Primary Care Provider [phone] Allergies Active AllergyReactionsCriticalityNoted OtrbTumlaogjKoaWnokfmvginNqq80/08/2025 LatexHives,Facial ThdzwdchZofmor09/08/2025 Medications MedicationSigDispense QuantityRefillsLast FilledStart DateEnd DateStatus dorzolamide [...] tablet Indications:Endometrial cancer determined by uterine biopsy ([place])Take 2 tablets (8 mg) by mouth once daily on days 2, 3 and 4. 60 tablet 5Active ondansetron (ZOFRAN) 8 mg tablet Indications:Endometrial cancer determined by uterine biopsy ([place])Starting on day 3, take 1 tablet by mouth twice daily as needed for nausea or vomiting. 60 tablet 5Active prochlorperazine (COMPAZINE) 10 mg tablet Indications:Endometrial cancer determined by uterine biopsy ([place])Take 1 tablet by mouth every 6 hours as needed for nausea or vomiting on days 1 and 2. 60 tablet 5Active ondansetron ODT (ZOFRAN ODT) 4 mg disintegrating tablet Indications:Endometrial cancer ([place])Dissolve 1 tablet (4 mg total) on tongue [...] for nausea or vomiting. 20 tablet Discontinued(Reorder) lidocaine-prilocaine (EMLA) cream Indications:Endometrial cancer determined by uterine biopsy ([facility]), Port-A-Cath in placeApply 1 Application topically as needed for pain (Port Access) for up to 12 days. Apply 2.5 grams to port site one hour prior to access prn. Cover with occlusive dressing as directed. 30 g /Expired oxyCODONE (ROXICODONE) 5 mg immediate release tablet Indications:Pelvic mass,Endometrial cancer ([facility])Take 1 tablet (5 mg total) by mouth every 6 (six) hours as needed for pain for up to 4 days. Max Daily Amount: 20 mg 15 tablet Expired Active Problems ProblemNoted DateDiagnosed DateEndometrial cancer determined by uterine biopsy 08/08/2025 Cancer Staging: Pathologic stage from 08/07/2025:FIGO Stage IIIB2, calculated as Stage Unknown (pT3b, pNX) - Unsigned Resolved Problems ProblemNoted DateDiagnosed DateResolved DateVaginal cwvffmku58 Pelvic massVagina atwxlvig81 Encounters DateTypeDepartmentCare IsudLsitazcwfmo98/01/2025 3:30 PM ESTTelemedicine [facility] Gy[facility]cology Oncology, A Department of [facility] [address] [place] [phone] Annita Patton, CRUISE STAFF MEMBER-CHANDELIER MAKER Endometrial cancer determined by uterine biopsy ([place]) (Primary Dx); Encounter for chemotherapy qdothctewz24/01/4582Mskbxb77/26/2025Telephone [facility] Gynecology Oncology, A Department of [facility] [address] [place] [address] Desmond Martin RN 08/21/2025Tumor Conference [facility] Oncology, A Department of [facility] [address] [place] [address] Annita Patton, CRUISE STAFF MEMBER-CHANDELIER MAKER 08/20/2025Hospital Encounter [facility] - Surgery [address] [facility] [place] [phone] Justin Mackey MD 08/17/2025Telephone [facility] Gynecology Oncology, A Department of [facility] [address] [place] [address] Milagros Machado, JORDYN 08/17/2025Telephone [facility] General Surgery [address] [place] [phone] Regina Zarate [facility] 08/16/2025 3:00 PM ESTProcedure visit [facility] - Pre Admit [address] [place] [phone] Preop examination (Primary Dx); Anemia, unspecified type08/16/20259703Ixgxoz93/19/2025Telephone [facility] Gynecology Oncology, A Department of [facility] [address] [place] [address] Milagros Machado, JORDYN 08/14/2025Telephone [facility] Gynecology Oncology, A Department of [facility] [address] [place] [address] Christi Tsang CMA 08/14/2025Orders Only [facility] Gynecology Oncology, A Department of [facility] [address] [place] [address] Milagros Machado, JORDYN Endometrial cancer determined by uterine biopsy ([facility]) (Primary Dx)08/14/2025 Orders Only Paola Wilson [facility] - Medical Oncology [address] [place] [address] Melinda Coffey PA Post-operative nausea and vomiting (Primary Dx); Pelvic mass; Endometrial cancer ([facility])08/13/2025Telephone [facility] Gynecology Oncology, A Department of [place] [address] [place] [address] Milagros Machado RN 08/10/2025Orders Only [facility], A Department of [place] [address] [facility] [address] Desmond Martin RN 08/10/2025Telephone [facility] Gynecology Oncology, A Department of [place] [address] [facility] [address] Milagros Machado RN 08/09/2025Telephone [facility] Surgery [facility] [place] [address] Regina Zarate Lillie 08/08/2025Orders Only [facility] Gynecology Oncology, A Department of [place] [address] [place] [address] Milagros Machado RN Endometrial cancer determined by uterine biopsy ([facility]) (Primary Dx)08/07/2025 1:30 PM ESTAnesthesia Event [facility] Surgery [address] [place] [phone] Mahendra Rico MD Roberts, Alyssa, [facility] 08/07/2025 12:30 PM EST - 08/07/2025 3:00 PM ESTSurgery [facility] Surgery [address] [place] [phone] Dennis Monson MD [facility] HYSTERECTOMY [place] OOPHORECTOMY/RADICAL INTRAPERITONEAL TUMOR QEOMYFGSG11/11/9215Nycrez09/10/2025Telephone [facility] Gynecology Oncology, A Department of [place] [address] [place] [address] Rocio Alexander MD Nukrudrvj83/09/2025Orders Only [facility] [address] [place] [phone] Transcribe, Orders Support User Pain (Primary Dx)08/04/2025 9:37 AM ESTAnesthesia Event [facility] - Surgery [address] [place] [phone] Franklin Ramos MD Rayle, Marissa, APRN-YOUTH DEVELOPMENT PROFESSIONAL 08/04/2025 8:30 AM EST - 08/04/2025 9:40 AM ESTSurgery [facility] - Surgery [address] [place] [phone] Rocio Alexander MD DILATION CURETTAGE [92504 (CPT??)]08/04/2025 3:32 AM EST - 08/09/2025 5:49 PM ESTHospital Encounter [facility] - GEN [address] [place] [phone] Rocio Alexander MD Endometrial cancer determined by uterine biopsy ([facility]) (Primary Dx); Pelvic mass; Limited mobility; Nausea Discharge Disposition: Home08/04/20254233Wmrfkn86/06/2025 7:10 PM ESTAncillary Procedure [facility] [address] [place] [phone] Pain08/02/2025 6:05 PM ESTAncillary Procedure [facility] [address] [place] [phone] Painfrom Last 3 Months Immunizations No known immunizations Family History Medical HistoryRelationNameCommentsCancerFatherCancerMotherRelationNameStatus CommentsFatherDeceasedMotherDeceased Social History Tobacco UseTypesPacks/DayYears UsedDateSmoking Tobacco: NeverSmokeless Tobacco: Never Tobacco Cessation:Counseling Given: Not Answered Alcohol UseStandard Drinks/WeekCommentsNever0 (1 standard drink = 0.6 oz pure alcohol)PHQ-2AnswerDate RecordedTotal Txsik22110/04/2024UDIT-CAnswerDate Recorded Q1: How often do you have [...] RecordedIn the past 12 months has the [employer], gas, oil, or water company threatened to [...] InformationValueDate RecordedSex Assigned at BirthNot on fileLegal BjbHifnsm08/08/2025 12:05 AM ESTGender IdentityNot on fileSexual OrientationNot on file Last Filed Vital Signs Vital SignReadingTime TakenCommentsBlood Szvbxhif840/7208/09/2025 7:49 AM EST Dwdcb362808/09/2025 7:49 AM RKVQhrhjzqexub84.4 ??C (99.4 ??F)08/09/2025 7:49 AM ESTRespiratory Jbjh296110/09/2024 7:49 AM ESTOxygen Pwaqvbfaql59%08/09/2025 7:49 AM ESTInhaled Oxygen Concentration--Dgwnnm30.3 kg (155 lb)08/16/2025 3:27 PM EST Leklkl442.5 cm (5' 2 )08/16/2025 3:27 PM ESTBody Mass Index28.35110/16/2024 3:27 PM EST Plan of Treatment DateTypeDepartmentCare Team (Latest Contact Info)Qyhuurawbry63/04/2025 10:30 AM ESTInfusion Paola [facility] - Medical Oncology [address] [place] [phone] 08/31/2025 8:30 AM ESTInfusion Paola [facility] Medical Oncology [address] [place] [phone] 09/10/2025 1:30 PM ESTOffice Visit [facility] Oncology, A Department of [address] [place] [address] Annita Patton, CRUISE STAFF MEMBER-[address] [place] [address] 09/25/2025 10:00 AM ESTInfusion Paola [facility] Medical Oncology [address] [place] [phone] 09/26/2025 8:00 AM ESTTelemedicine [facility] Oncology, A Department of [address] [place] [address] Annita Patton, CRUISE STAFF MEMBER-[address], [address] [place] [address] 09/26/2025 8:30 AM ESTInfusion Paola Ellington [facility] - Medical Oncology [address] [place] [phone] Health MaintenanceDue DateLast DoneCommentsAdult BMI Follow Up Plan1973 DTaP,Tdap and Td Vaccines (1 - Tdap)1974Zoster (Shingles) Vaccine (1 of 2) 1974RSV ( or age 60+ yrs) (1 - Risk 60-74 years 1-dose series) 2015Fall Risk Deawwueoo52/05/2020Influenza Xcwqphj6405/28/2025Depression Qutwaspms05dult BMI Wdorthack76Tobacco Lfwhbapdn07 Goals GoalPatient Goal TypeAssociated ProblemsRecent ProgressPatient-Stated?Author return home Milagros Escobedo RN Note: Evaluation of progress towards goal: patient plans to return home with family support Autogenerated Goal Care PlanAutogenerated ProblemNoPotts, [employer] Not on file Procedures Procedure NamePriorityDate/TimeAssociated DiagnosisCommentsBASIC METABOLIC PANEL Gqiromy2408/16/2025 3:52 PM EST Preop examination CBC WITH AUTO MGSFRRCZJWOPItkgywx70/20/2025 3:52 PM EST Preop examination Anemia, unspecified type CROSSMATCH KOJWuncjcz36/15/2025 12:37 AM EST CBC WITH AUTO ZUCILAWXWJJVVqvtuqa95/13/2025 5:32 AM EST COMPREHENSIVE METABOLIC LYOTWZlklrfb17/13/2025 5:32 AM EST CBC WITH AUTO RHZIYKAEBVEKZgrillw00/12/2025 5:58 AM EST TYPE AND EVXWNUWoyvamw40/12/2025 5:57 AM EST COMPREHENSIVE METABOLIC YVPVWBzcxmaf70/12/2025 5:57 AM EST SURGICAL VHMXTMKHGLvpbcxl89/11/2025 3:42 PM EST NON-GYNECOLOGIC REPSLWQXFjibwsl64/11/2025 2:44 PM EST TRANSFUSE RED BLOOD UUEXNHnjskmy59/11/2025 2:23 PM ESTPR AN ELECTIVE ENDOTRACHEAL FCSDUKNptxczg18/11/2025 1:44 PM EST FLEXIBLE YUEIVUPFWTKXZ62/11/2025 1:30 PM EST ENDOMETRIAL CANCER Case Notes [facility] EPIC 2W MOVE UP TO 1130 Special Needs MOVE UP TO 1130 [place] HYSTERECTOMY SALPINGO MHCZBQAGCYEF01/11/2025 1:30 PM EST ENDOMETRIAL CANCER Case Notes [facility] 2W MOVE UP TO 1130 Special Needs MOVE UP TO 1130 COMPREHENSIVE METABOLIC UCXWXHhtgjke31/11/2025 5:40 AM EST CBC WITH AUTO YFWXIWPQIYFKXrweodm08/11/2025 5:40 AM EST CROSSMATCH APIBttuxfo26/10/2025 6:37 AM ESTCOMPREHENSIVE METABOLIC PANELRoutine 08/06/2025 6:23 AM EST CBC WITH AUTO NJOCVSQFBHIANowvvbb60/10/2025 6:23 AM EST COMPREHENSIVE METABOLIC KPFHDGrffwwt18/09/2025 8:[address] CHEST W WFRRPsdiciq13/09/2025 12:11 PM EST CBC WITH AUTO ZKHPRCAUUDEATudtmhs53/09/2025 4:02 AM EST COMPREHENSIVE METABOLIC JIAJMJtqsbyo89/09/2025 4:02 AM EST CBC WITH AUTO JXVJGMLTLHAQQnvspvv30/08/2025 12:18 PM EST TRANSFUSE RED BLOOD PJYKCDgzvzpe67/08/2025 10:00 AM ESTPR AN ELECTIVE ENDOTRACHEAL GQCZJRVaruvju17/08/2025 9:48 AM EST SC HYSTEROSCOPY,W/ENDO BX08/04/2025 9:37 AM EST vaginal bleed TRANSFUSE RED BLOOD ZIWHPVnvtwlr06/08/2025 8:39 AM ESTREPEATED ABORHRoutine 08/04/2025 8:27 AM ESTREPEATED ACJHGPdemhtl46/08/2025 7:41 AM EST CROSSMATCH WIAZomqzem78/08/2025 5:30 AM EST TYPE AND TQOSPRJhfqtrl27/08/2025 5:30 AM EST LHCDNUXRQUMjweepl16/08/2025 5:30 AM EST CEGPUxsdyxh89/08/2025 5:30 AM EST PROTIME & HAMCtgcybk13/08/2025 5:30 AM EST CBC WITH AUTO YXKCTYYVIWVBTaxfafi20/08/2025 5:30 AM EST COMPREHENSIVE METABOLIC EAJZDSlsvmss37/08/2025 5:30 AM EST PULSE OXIMETRY, RHYREfugazm56/08/2025 3:38 AM ESTCT ABDOMEN AND PELVIS W CONT Tocswen9608/02/2025 7:10 PM EST Pain US DUPLEX ABD PELVIS LAZROviykdh09/06/2025 6:05 PM EST Pain from Last 3 Months Results * (ABNORMAL) CBC auto differential (08/16/2025 3:52 PM EST) Only the most recent of8 resultswithin the time period is included. ComponentValueRef RangeTest MethodAnalysis TimePerformed AtPathologist Signature WBC30.6(H)4 - 11 10^9/L110/16/2024 4:45 PM ESTPRO[facility]ITAL RBC Count4.063.8 - 5.2 10^12/L110/16/2024 4:45 PM ESTPROOROVILLE HOSPITALHemoglobin11.4(L)11.7 - 15.5 g/dL08/16/2025 4:45 PM ESTPROOROVILLE HOSPITALHematocrit34.4(L)35 - 47 %08/16/2025 4:45 PM ESTPROOROVILLE HOSPITALMCV8580 - 100 fL08/16/2025 4:45 PM [facility]MCH28.027 - 34 pg08/16/2025 4:45 PM [facility]MCHC33.032 - 36 g/dL08/16/2025 4:45 PM [facility]ITALRDW16.6(H)11.5 - 15 %08/16/2025 4:45 PM [facility] HOSPITALPlatelet Pnjyk371(H)150 - 450 10^9/L110/16/2024 4:45 PM EST [facility]MPV8.07 - 12 fL08/16/2025 4:45 PM EST [facility]ITALBands %8%08/16/2025 4:45 PM [facility]ITALComment:This is an appended report. These results have been appended to a previously preliminary verified report.Neutrophils %81% 08/16/2025 4:45 PM [facility]Comment:This is an appended report. These results have been appended to a previously preliminary verified report.Lymphocytes %4%08/16/2025 4:45 PM [facility]Comment:This is an appended report. These results have been appended to a previously preliminary verified report.Monocytes %7%08/16/2025 4:45 PM EST [facility]Comment:This is an appended report. These results have been appended to a previously preliminary verified report. Neutrophils Absolute (M)27.3(H)1.5 - 6.6 10^9/L110/16/2024 4:45 PM [facility]Comment:This is an appended report. These results have been appended to a previously preliminary verified report.Lymphocytes Absolute 1.21.0 - 3.5 10^9/L110/16/2024 4:45 PM [facility] Comment:This is an appended report. These results have been appended to a previously preliminary verified report.Monocytes Absolute2.1(H)0.0 - 0.9 10^9/L 08/16/2025 4:45 PM ESTWVUMEDICINE BARNESVILLE HOSPITALComment:This is an appended report. These results have been appended to a previously preliminary verified report.Polychromasia1+08/16/2025 4:45 PM ESTWVUMEDICINE BARNESVILLE HOSPITALComment:This is an appended report. These results have been appended to a previously preliminary verified report.Elliptocytes1+08/16/2025 4:45 PM EST [facility]Comment:This is an appended report. These results have been appended to a previously preliminary verified report. Stomatocytes1+08/16/2025 4:45 PM ESTWVUMEDICINE BARNESVILLE HOSPITALComment: This is an appended report. These results have been appended to a previously preliminary verified report.Differential TypeMANUAL XQZCZBNSMHXM57/20/2025 4:45 PM [facility]ITALComment:This is an appended report. These results have been appended to a previously preliminary verified report. Specimen (Source)Anatomical Location / LateralityCollection Method / Volume Collection TimeReceived TimeBloodVenous blood / UnknownVenipuncture / Unknown 08/16/2025 3:52 PM EST08/16/2025 3:52 PM EST Narrative Authorizing ProviderResult TypeResult StatusDaviquiana Angulo MDLAB BLOOD ORDERABLESFinal ResultPerforming OrganizationAddressCity/State/ZIP CodePhone Number [facility] [address] [place] [address], * (ABNORMAL) Basic Metabolic Panel (08/16/2025 3:52 PM EST)ComponentValueRef RangeTest MethodAnalysis TimePerformed AtPathologist OkmtvsojzBPMPUO332600 - 146 mmol/L110/16/2024 4:17 PM ESTPROOROVILLE HOSPITALPOTASSIUM 2.6(LL)3.5 - 5.0 mmol/L110/16/2024 4:17 PM ESTWVUMEDICINE BARNESVILLE HOSPITALCHLORIDE10398 - 109 mmol/L110/16/2024 4:17 PM ESTPROOROVILLE HOSPITALCARBON HBNJOWA0082 - 32 mmol/L110/16/2024 4:17 PM ESTPROOROVILLE HOSPITALANION LNE112 - 15 mmol/L110/16/2024 4:17 PM EST [facility]OSPITALBLOOD UREA FFQTXFJJ336 - 27 mg/dL08/16/2025 4:17 PM ESTWVUMEDICINE BARNESVILLE HOSPITALCREATININE0.700.40 - 1.00 mg/dL 08/16/2025 4:17 PM [facility]ITALComment:METHOD TRACEABLE TO IDMS VWFCILJHGYBIHJQ330(H)65 - 99 mg/dL08/16/2025 4:17 PM EST [facility]OS[facility]ITALCALCIUM8.58.5 - 10.5 mg/dL08/16/2025 4:17 PM ESTWVUMEDICINE BARNESVILLE HOSPITALEGFR Non-Race Dependent>90>=60 ml/min/1.73sq.m110/16/2024 4:17 PM [facility] Comment: Reported eGFR is based on the CKD-EPI 2020 equation that does not use a race coefficient. Specimen (Source)Anatomical Location / LateralityCollection Method / Volume Collection TimeReceived TimeBloodVenous blood / UnknownVenipuncture / Unknown 08/16/2025 3:52 PM EST08/16/2025 3:52 PM EST Narrative Authorizing ProviderResult TypeResult StatusDaviquiana Angulo MDLAB BLOOD ORDERABLESFinal ResultPerforming OrganizationAddressCity/State/ZIP CodePhone Number [facility] [address] [place] [address], * Crossmatch RBC:Number of Units: 2 (08/11/2025 12:37 AM EST) Only the most recent of3 resultswithin the time period is included. ComponentValueRef RangeTest MethodAnalysis TimePerformed AtPathologist Signature Blood component [id number] BANK - WELLSKYUnit [id number] BANK - WELLSKYUnit ABOOBLOOD BANK - WELLSKYUnit RHPOSBLOOD BANK - WELLSKY CrossmatchCompatibleBLOOD BANK - WELLSKYStatus of unitTRANSFUSEDBLOOD BANK - WELLSKYExpiration [id number] BANK - WELLSKYBB Type Gdckykj2944NDATO BANK - WELLSKYSpecimen (Source)Anatomical Location / LateralityCollection Method / VolumeCollection TimeReceived TimeBloodVenous blood / Jajjaqh7008/11/2025 12:37 AM EST08/04/2025 5:47 AM EST Narrative Authorizing ProviderResult TypeResult StatusKassidy Cheko MDBLOOD BANK PRODUCT ORDERABLESEdited Result - FinalPerforming OrganizationAddressCity/State/ZIP Code Phone Number [facility] [place] * (ABNORMAL) Comprehensive metabolic panel (08/09/2025 5:32 AM EST) Only the most recent of7 resultswithin the time period is included. ComponentValueRef RangeTest MethodAnalysis TimePerformed AtPathologist Signature PJCECP619252 - 146 mmol/L110/09/2024 6:26 AM [facility] LABORATORYPOTASSIUM3.3(L)3.5 - 5.0 mmol/L110/09/2024 6:26 AM [facility] OXGNLHHDAUOGVVYECO99377 - 109 mmol/L110/09/2024 6:26 AM [facility] LABORATORYCARBON FKVLUNM1166 - 32 mmol/L110/09/2024 6:26 AM [facility] LABORATORYANION HBY802 - 15 mmol/L110/09/2024 6:26 AM [facility] LABORATORYBLOOD UREA JDYPMARI973 - 27 mg/dL08/09/2025 6:26 AM [facility] LABORATORYCREATININE0.650.40 - 1.00 mg/dL08/09/2025 6:26 AM [facility] LABORATORYComment:METHOD TRACEABLE TO IDMS MUBKHWRTQPHCCYJ9558 - 99 mg/dL08/09/2025 6:26 AM [facility] LABORATORYCALCIUM8.1(L)8.5 - 10.5 mg/dL08/09/2025 6:26 AM [facility] LABORATORYTOTAL PROTEIN5.4(L)6.0 - 8.0 g/dL08/09/2025 6:26 AM [facility] LABORATORYALBUMIN3.0(L)3.2 - 5.3 g/dL08/09/2025 6:26 AM [facility] LABORATORYALKALINE AVHECTGXDOD8827 - 130 U/L110/09/2024 6:26 AM [facility] BCZVZKXAWTVUJ91<=41 U/L110/09/2024 6:26 AM [facility] LABORATORYALT6<=31 U/L110/09/2024 6:26 AM [facility] LABORATORYBILIRUBIN,TOTAL0.50.3 - 1.2 mg/dL08/09/2025 6:26 AM [facility] LABORATORYEGFR Non-Race Dependent>90>=60 ml/min/1.73sq.m110/09/2024 6:26 AM [facility] LABORATORYComment: Reported eGFR is based on the CKD-EPI 2020 equation that does not use a race coefficient. Specimen (Source)Anatomical Location / LateralityCollection Method / Volume Collection TimeReceived TimeBloodVenous blood / UnknownVenipuncture / Unknown 08/09/2025 5:32 AM EST08/09/2025 5:54 AM EST Narrative Authorizing ProviderResult TypeResult StatusBrittnee Sam MDLAB BLOOD ORDERABLESFinal ResultPerforming OrganizationAddressCity/State/ZIP CodePhone Number [facility] [address] [place] [address], * Type and screen(includes indirect grady) (08/08/2025 5:57 AM EST) Only the most recent of2 resultswithin the time period is included. ComponentValueRef RangeTest MethodAnalysis TimePerformed AtPathologist Signature ABOO110/08/2024 7:52 AM ESTTTH BB - QFTMDWTLSDbasybjd40/12/2025 7:52 AM ESTTTH BB - WELLSKYAntibody NkyokeAxpzhmdr46/12/2025 7:52 AM ESTTTH BB - WELLSKYSpecimen (Source)Anatomical Location / LateralityCollection Method / VolumeCollection TimeReceived TimeBloodVenous blood / UnknownVenipuncture / Zbnygwt2508/08/2025 5:57 AM EST08/08/2025 6:54 AM EST Narrative Authorizing ProviderResult TypeResult StatusRocio Alexander MDBLOOD BANK TEST ORDERABLESEdited Result - FinalPerforming OrganizationAddressCity/State/ZIP Code Phone Number [facility] [address] [place] [address], * Surgical Pathology (08/07/2025 3:42 PM EST)ComponentValueRef RangeTest Method Analysis TimePerformed AtPathologist SignatureCase ReportSurgical Pathology Report ? Case: [id number] ? Authorizing Provider: ??Dennis Monson MD ?Collected: ? 08/07/2025 1542 ? Ordering Location: ? [facility] ??Received: ?08/07/2025 1647 ? - Surgery ? Pathologist: ? Gene Monica Alcantara MD ? Specimens: ?? 1) - Uterus, Fallopian Tube, Ovary, UTERUS, CERVIX, BILATERAL TUBES AND OVARIES ? 2) - Pelvis, LEFT POSTERIOR PELVIS BIOPSY ? 08/14/2025 2:47 PM [facility] LABORATORYFinal Diagnosis1. Uterus, fallopian tubes and ovaries, hysterectomy and bilateral salpingo-oophorectomy: ENDOMETRIOID ADENOCARCINOMA of endometrium, grade 2, with deep myometrial invasion. Carcinoma invades lower uterine segment stroma. Positive cervical stroma, uterine serosa (implants), bilateral mesosalpinx and left fallopian tube. Focal lymphovascular invasion. Endometriosis of right fallopian tube serosa. Negative ovaries. Negative parametrial/paracervical margins. 2. Left posterior pelvis, biopsy: Metastatic carcinoma.08/14/2025 2:47 PM [facility] at 1447 ESTSkyWard IO, Inc.oss Description1. Received in formalin labeled ANDERSON, uterus, [...] 1 minute Total fixation time: 27 hours (18,ns,[id number], m8.1) . 2. Received in formalin labeled ANDERSON, left posterior pelvis biopsy is pink-lambert feathery and friable soft tissue admixed with hemorrhagic material, 2.5 x 2.5 x 1.2 cm in aggregate. The specimen is submitted entirely in cassettes A- C. (3,ns,[id number], m8.1) 08/14/2025 2:47 PM [facility] LABORATORYSynoptic ChecklistENDOMETRIUM ENDOMETRIUM - All Specimens JACKSON [...] (no nodes submitted or found)08/14/2025 2:47 PM [facility] LABORATORYEmbedded Xqemsj0508/14/2025 2:47 PM [facility] LABORATORYSpecimen (Source)Anatomical Location / LateralityCollection Method / VolumeCollection TimeReceived TimeTissue (Uterus, Fallopian Tube, Ovary)08/07/2025 3:42 PM EST08/07/2025 4:47 PM ESTComment:Pre-op diagnosis: ENDOMETRIAL CANCERTissue specimen (specimen)Pelvic region / Vbkgprr1508/07/2025 3:43 PM EST08/07/2025 4:47 PM ESTComment:Pre-op diagnosis: ENDOMETRIAL CANCER Narrative Authorizing ProviderResult TypeResult StatusDennis Monson MDPATHOLOGY/CYTOLOGY ORDERABLESFinal ResultPerforming OrganizationAddressCity/State/ZIP CodePhone Number [facility] [address] [place] [address], * Transfuse RBC:1 Unit (08/07/2025 2:56 PM EST) Only the most recent of3 resultswithin the time period is included. Narrative Authorizing ProviderResult TypeResult StatusAleia Monica Alexander MDBLOOD TRANSFUSION ORDERABLESFinal Result * Cytology non-gynecologic (08/07/2025 2:44 PM EST)ComponentValueRef RangeTest MethodAnalysis TimePerformed AtPathologist SignatureCase ReportMedical Cytology Report ? Case: [id number] ? Authorizing Provider: ??Dennis Monson MD ?Collected: ? 08/07/2025 1444 ? Ordering Location: ? [facility] ??Received: ?08/07/2025 1501 ? - Surgery ? Pathologist: ? Darryl Alcantara MD ? Specimen: ?Pelvis, Pelvis fluid ? 08/14/2025 2:58 PM [facility] LABORATORYFinal DiagnosisPelvic fluid: Positive for Carcinoma, rare cells.08/14/2025 2:58 PM [facility] at 1458 ESTGross DescriptionReceived was 20ml of red fluid unfixed, labeled as Anderson, pelvis . CytoLyt added in lab. Specimen placed in formalin at 17:00 and had a total fixation time of 8 hours. 08/14/2025 2:58 PM [facility] LABORATORYEmbedded Images 08/14/2025 2:58 PM [facility] LABORATORYSpecimen (Source) Anatomical Location / LateralityCollection Method / VolumeCollection Time Received TimeFluidPelvic region / Yezehfy9608/07/2025 2:44 PM EST08/07/2025 3:01 PM ESTComment:Pre-op diagnosis: ENDOMETRIAL CANCER Narrative Authorizing ProviderResult TypeResult StatusAdawild Monson MDPATHOLOGY/CYTOLOGY ORDERABLESFinal ResultPerforming OrganizationAddressCity/State/ZIP CodePhone Number [facility] [address] [place] [address], * SC AN ELECTIVE ENDOTRACHEAL AIRWAY (08/07/2025 1:44 PM EST) Narrative Evelin Jackson SRNA - 08/07/2025 1:44 PM EST EDIN Inman 08/07/2025 2:13 PM Airway Patient location during procedure: OR Urgency: Elective Date/Time: 08/07/2025 1:44 PM Airway not difficult IV In Situ: Peripheral General Information and Staff Service Provider: Mahendra Rico MD YOUTH DEVELOPMENT PROFESSIONAL: Karime Mann APRN-BHARTI Student: EDIN Inman Placed by: ??EDIN Inman [...] 08/06/2025 7:20 AM Authorizing ProviderResult TypeResult StatusAlexandria [facility] ORDERABLESFinal Result * SC AN ELECTIVE ENDOTRACHEAL AIRWAY (08/04/2025 9:48 AM EST) Leonor Cornell APRN-CRNA - 08/04/2025 9:48 AM EST BELLE Ferguson 08/04/2025 10:02 AM Airway Patient location during procedure: OR Urgency: Elective Date/Time: 08/04/2025 9:48 AM Airway not difficult IV In Situ: Peripheral General Information and Staff Service Provider: Franklin Ramos MD YOUTH DEVELOPMENT PROFESSIONAL: BELLE Ferguson Placed by: ??BELLE Ferguson Patient [...] AM EST)ComponentValueRef RangeTest Method Analysis TimePerformed AtPathologist SevxyzvaeIQXD02(L)26 - 37 sec08/04/2025 6:07 AM [facility] LABORATORYSpecimen (Source)Anatomical Location / LateralityCollection Method / VolumeCollection TimeReceived Time BloodVenous blood / UnknownVenipuncture / Dinslbt3408/04/2025 5:30 AM EST 08/04/2025 5:42 AM EST Narrative Authorizing ProviderResult TypeResult StatusKassidnolan Still [facility] BLOOD ORDERABLESFinal ResultPerforming OrganizationAddressCity/State/ZIP CodePhone Number [facility] [address] [place] [address], * Protime & INR (08/04/2025 5:30 AM EST)ComponentValueRef RangeTest Method Analysis TimePerformed AtPathologist OuwtuqqqnWVKNBDI63.89.8 - 13.2 sec 08/04/2025 6:07 AM [facility] LABORATORYINR1.00.9 - 1.2 08/04/2025 6:07 AM [facility] LABORATORYSpecimen (Source) Anatomical Location / LateralityCollection Method / VolumeCollection Time Received TimeBloodVenous blood / UnknownVenipuncture / Qzjcukw4408/04/2025 5:30 AM EST08/04/2025 5:42 AM EST Narrative Authorizing ProviderResult TypeResult StatusKassidnolan Still [facility] BLOOD ORDERABLESFinal ResultPerforming OrganizationAddressCity/State/ZIP CodePhone Number [facility] [address] [place] [address], [place] [phone] * Fibrinogen (08/04/2025 5:30 AM EST)ComponentValueRef RangeTest MethodAnalysis TimePerformed AtPathologist UuynpjbdvPPZOOPPUBB025908 - 480 mg/dL08/04/2025 6:07 AM [facility] LABORATORYSpecimen (Source)Anatomical Location / LateralityCollection Method / VolumeCollection TimeReceived Time BloodVenous blood / UnknownVenipuncture / Oodtlaj6908/04/2025 5:30 AM EST 08/04/2025 5:42 AM EST Narrative Authorizing ProviderResult TypeResult StatusKassidy Cheko MDLAB BLOOD ORDERABLESFinal ResultPerforming OrganizationAddressCity/State/ZIP CodePhone Number [facility] [address] [place] [address], [place] [phone] * CT abdomen and pelvis with contrast [...] Additional Health Concerns Active ProblemsNoted DateDiagnosed DateAutogenerated Lzpmmrj6608/10/2025 Insurance Advance Directives * Full Code (Latest Code Status on File) Date ActivatedDate ZeekjinqijgEfoanayr49/8/2025 3:38 AM08/09/2025 7:55 PM Care Teams Team MemberRelationshipSpecialtyStart DateEnd Date Bin Sidhu MD [address] [place] [address] PCP - GeneralFamily Zfpstmrc56/9/25
--- OUTSIDE RECORDS SUMMARY | 2025-08-27 16:14 | XMS_ITS | Encounter Summary ---
Author Organization [facility] tem Address [id number] [address] [place] [address] Care Team Providers Care Attending Urologist Name Role Phone Bin Sidhu MD Primary Care Provider Encounter Details DateTypeDepartmentCare Team (Latest Contact Info)Maqhfotpfeu01/18/2025Orders Only Paola Wilson [facility] - Medical Oncology [address] [place] [address] Melinda Coffey PA [address] [place] [address] Post-operative nausea and vomiting (Primary Dx); Pelvic mass; [facility]) Social History Tobacco UseTypesPacks/DayYears UsedDateSmoking Tobacco: NeverSmokeless Tobacco: NeverAlcohol UseStandard Drinks/WeekCommentsNever0 (1 standard drink = 0.6 oz pure alcohol)PHQ-2AnswerDate RecordedTotal Xurok17310/04/2024UDIT-CAnswerDate RecordedQ1: How often do you have a [...] ValueDate RecordedSex Assigned at BirthNot on fileLegal DnlNtfnba76/08/2025 12:05 AM ESTGender IdentityNot on fileSexual OrientationNot on filedocumented as of this encounter Plan of Treatment DateTypeDepartmentCare Team (Latest Contact Info)Axlxecpmskb10/04/2025 10:30 AM ESTInfusion Paola Wilson [facility] - Medical Oncology [address] [place] [phone] 08/31/2025 8:30 AM ESTInfusion Paola Wilson [facility] - Medical Oncology [address] [place] [phone] 09/10/2025 1:30 PM ESTOffice Visit [facility], A Department of [address] [place] [address] Annita Patton, SAVINGS TELLER-RECEIVABLE MANAGER [address] [facility] [place] [address] 09/25/2025 10:00 AM ESTInfusion Paola [place] [facility] - Medical Oncology [address] [place] [address] 09/26/2025 8:00 AM ESTTelemedicine [facility], A Department of [address] [place] [address] Annita Patton, SAVINGS TELLER-RECEIVABLE MANAGER [address] [facility] [place] [address] 09/26/2025 8:30 AM ESTInfusion Paola [place] [facility] - Medical Oncology [facility] [place] [phone] documented as of this encounter Goals GoalPatient [...] mass or lump, unspecified site End[facility]rial cancer ([facility]) Malignant neoplasm of corpus uteri, except isthmus documented in this encounter Additional Health Concerns Active ProblemsNoted DateDiagnosed DateAutogenerated Veoiagp9208/10/2025ssessment Noted TimePHQ-9 Depression Total Score: 3:45 PM ESTdocumented as of this encounter Care Teams Team MemberRelationshipSpecialtyStart DateEnd Date Bin Sidhu MD [address] [place] [address] PCP - GeneralFamily Sawpgxjx03/9/25documented as of this encounter
--- OUTSIDE RECORDS SUMMARY | 2025-08-27 16:14 | XMS_ITS | Clinical Summary ---
Author Organization [facility] Address [address] [place] [address] Care Team Providers Care Pocket Maker Name Role Phone Unavailable Primary Care Provider Unavailabl e Social History Tobacco UseTypesPacks/DayYears UsedDateSmoking Tobacco: Never Assessed CommentsUnknownSex and Gender InformationValueDate RecordedSex Assigned at Not on fileLegal ZrqNdzfwg36/15/2023 11:23 PM EDTGender IdentityNot on file Sexual OrientationNot on file Last Filed Vital Signs Vital SignReadingTime TakenCommentsBlood Pressure--Pulse--Temperature-- Respiratory Rate--Oxygen Saturation--Inhaled Oxygen Concentration--Jtpzsh51.9 kg (143 lb)09/29/2021 12:00 PM GUQPtyqtq509.5 cm (5' 2 )09/29/2021 12:00 PM ESTBody Mass Index26.16009/29/2021 12:00 PM EST Plan of Treatment [place] [address]
--- OUTSIDE RECORDS SUMMARY | 2025-08-27 16:14 | XMS_ITS | Encounter Summary ---
Author Organization [facility] tem Address [id number] [address] [place] [address] Care Team Providers Care Hydrology Professor Name Role Phone Bin Sidhu MD Primary Care Provider [phone] Encounter Details DateTypeDepartmentCare Team (Latest Contact Info)Ztcxlgqldec87/14/2025Telephone [facility] Oncology, A Department of [facility] [address] [facility] [address] [place] [address] Milagros Machado RN Social History Tobacco UseTypesPacks/DayYears UsedDateSmoking Tobacco: NeverSmokeless Tobacco: NeverAlcohol UseStandard Drinks/WeekCommentsNever0 (1 standard drink = 0.6 oz pure alcohol)PHQ-2AnswerDate RecordedTotal Fwdtb46110/04/2024UDIT-CAnswerDate RecordedQ1: How often do you have a [...] ValueDate RecordedSex Assigned at BirthNot on fileLegal RiqWacdlh94/08/2025 12:05 AM ESTGender IdentityNot on fileSexual OrientationNot [...] level [] Language barrier. Patient speaks: [] [employer] present. [] Anxiety [] Cognitive barriers [...] of Treatment: [] Oral, patient's home [] [facility] [] [facility] ([place]) [] [facility] [] [facility] [x] [facility] ([place] [] [facility] [] [facility] [] [facility] Interventional Radiology [] [facility] [] [facility] [] [facility] [] [facility] [] [facility] Inpatient Unit [] [facility] Interventional Radiology [x] The patient was instructed [...] Medications [x] The patient was instructed to knot picker cloth prescriptions prior to starting treatment. Supportive care [...] [x] Office and emergency Contact Information [] [facility]: A Guide to Living with Cancer* [x] OncoLink Antineoplastic Agent drug information [] Lexicomp Antineoplastic drug information [] NCCN Disease Specific Information (type in name): [] Neutropenia Wallet Card [] Immunotherapy Wallet Card [] Emla Cream Wallet Card [] Chemotherapy Calendar [] In addition to the side effect information included in the [facility] Guidebook, I have provided the patient [...] indications, dose, and frequency [x] Short and intermodal dispatcher side effects, including indications to notify provider [...] [x] Time spent: 90 minutes *[facility] [place]: A Guide to Living with Cancer ?? [...] Plan of Treatment DateTypeDepartmentCare Team (Latest Contact Info)Fnsuypujwzi46/04/2025 10:30 AM ESTInfusion [place] [email or web address] - Medical Oncology [address] [place] [phone] 08/31/2025 8:30 AM ESTInfusion [place]ola [place] [email or web address] - Medical Oncology [address] [place] [phone] 09/10/2025 1:30 PM ESTOffice Visit [facility], A Department of [address] [place] [address] Annita Patton, PRIMARY CARE NURSE-[address], [address] [place] [address] 09/25/2025 10:00 AM ESTInfusion [place]ola [place] [email or web address] - Medical Oncology [address] [place] [phone] 09/26/2025 8:00 AM ESTTelemedicine [facility], A Department of [address] [place] [address] Annita Patton, PRIMARY CARE NURSE-COMPLIANCE PROGRAM MANAGER [address] [place] [address], [address] [place] [address] 09/26/2025 8:30 AM ESTInfusion [facility] [place] [facility]cology [address] [place] [phone] documented as of this encounter Goals GoalPatient Goal TypeAssociated ProblemsRecent ProgressPatient-Stated?Author return home Milagros Escobedo, RN Note: Evaluation of progress towards goal: patient plans to return home with family support Autogenerated Goal Care PlanAutogenerated ProblemNoPotts, Elizabethdocumented as of this encounter Visit Diagnoses Diagnosis Endometrial cancer determined by uterine biopsy ([facility])- Primary Port-A-Cath in place documented in this encounter Additional Health Concerns Active ProblemsNoted DateDiagnosed DateAutogenerated Kkmnbsx36/14/2025Assessment Noted TimePHQ-9 Depression Total Score: 3:45 PM ESTdocumented as of this encounter Care Teams Team MemberRelationshipSpecialtyStart DateEnd Date Bin Sidhu MD [address] [place] [address] PCP - GeneralFamily Nbaqeaqr65/9/25documented as of this encounter
--- OUTSIDE RECORDS SUMMARY | 2025-08-27 16:14 | XMS_ITS | Encounter Summary ---
Author Organization [facility] tem Address [id number] [address] [place] [address] Care Team Providers Care Graduate Nurse Name Role Phone Bin Sidhu MD Primary Care Provider [phone] Encounter Details DateTypeDepartmentCare Team (Latest Contact Info)Mxlutksalll90/21/2025Telephone [facility] Gynecology Oncology, A Department of [facility] [address] [facility] [address] [place] [address] Milagros Machado RN Social History Tobacco UseTypesPacks/DayYears UsedDateSmoking Tobacco: NeverSmokeless Tobacco: NeverAlcohol UseStandard Drinks/WeekCommentsNever0 (1 standard drink = 0.6 oz pure alcohol)PHQ-2AnswerDate RecordedTotal Yaxrx62810/04/2024UDIT-CAnswerDate RecordedQ1: How often do you have a [...] ValueDate RecordedSex Assigned at BirthNot on fileLegal FlcAbdebc42/08/2025 12:05 AM ESTGender IdentityNot on fileSexual OrientationNot on filedocumented as of this encounter Miscellaneous Notes * Telephone Encounter - Milagros Machado RN - 08/17/2025 10:37 AM EST imaging scheduler with [facility] general surgery [facility] Facility Administrator attempted to return call, VM left stating office received VM and they could call iftheir were additional questions or concerns. Per notes, patient was admitted with dx of C. Diff. documented in this encounter Plan of Treatment DateTypeDepartmentCare Team (Latest Contact Info)Dsenhetdcob46/04/2025 10:30 AM ESTInfusion Paola [place] [facility] - Medical Oncology [address] [place] [phone] 08/31/2025 8:30 AM ESTInfusion Paola [place] [facility] - Medical Oncology [address] [place] [phone] 09/10/2025 1:30 PM ESTOffice Visit [facility], A Department of [place] [address] [place] [phone] Annita Patton, FINISHING OPERATOR-ASSET LIABILITY ANALYST [address] [facility] [place] [address] 09/25/2025 10:00 AM ESTInfusion Paola [place] [facility] - Medical Oncology [address] [place] [phone] 09/26/2025 8:00 AM ESTTelemedicine [facility], A Department of [facility] [address] [facility] [address] [place] [address] Annita Patton, FINISHING OPERATOR-ASSET LIABILITY ANALYST [address] [facility] [place] [address] 09/26/2025 8:30 AM ESTInfusion Paola [place] [facility] - Medical Oncology [address] [place] [phone] documented as of this encounter Goals GoalPatient Goal TypeAssociated ProblemsRecent ProgressPatient-Stated?Author return home Milagros Escobedo RN Note: Evaluation of progress towards goal: patient plans to return home with family support Autogenerated Goal Care PlanAutogenerated ProblemNoPotts, Elizabethdocumented as of this encounter Visit Diagnoses Not on filedocumented in this encounter Additional Health Concerns Active ProblemsNoted DateDiagnosed DateAutogenerated Xlovojp3708/10/2025ssessment Noted TimePHQ-9 Depression Total Score: 3:45 PM ESTdocumented as of this encounter Care Teams Team MemberRelationshipSpecialtyStart DateEnd Date Bin Sidhu MD [address] [place], [place] [address] PCP - GeneralFamily Hunkajnw11/9/25documented as of this encounter
--- OUTSIDE RECORDS SUMMARY | 2025-08-27 16:14 | XMS_ITS | Encounter Summary ---
Author Organization [facility] tem Address [id number] [address] [place] [address] Care Team Providers Care Hemmer Chainstitch Name Role Phone Bin Sidhu MD Primary Care Provider [phone] Reason for Visit * Auth/CertSpecialtyDiagnoses / ProceduresReferred By ContactReferred To Contact Diagnoses needed for chemotherapy Procedures HI INSJ TUNNELED CTR VAD W/SUBQ PORT AGE 5 YR/> INSERTION PORT A CATH Justin Mackey MD [address] [place] [address] Phone: tel: fax: Referral IDStatusReasonStart DateExpiration DateVisits RequestedVisits [id number] Encounter Details DateTypeDepartmentCare Team (Latest Contact Info)Rjzjvhqqwpi43/24/2025Hospital Encounter [facility] - Surgery [address] [place] [phone] Justin Mackey MD [address] [place] [address] Social History Tobacco UseTypesPacks/DayYears UsedDateSmoking Tobacco: NeverSmokeless Tobacco: NeverAlcohol UseStandard Drinks/WeekCommentsNever0 (1 standard drink = 0.6 oz pure alcohol)PHQ-2AnswerDate RecordedTotal Lmndj89310/04/2024UDIT-CAnswerDate RecordedQ1: How often do you have a [...] ValueDate RecordedSex Assigned at BirthNot on fileLegal XvsQbaohf59/08/2025 12:05 AM ESTGender IdentityNot on fileSexual OrientationNot on filedocumented as of this encounter Miscellaneous Notes * Perioperative Nursing Note - Rita Salgado RN - 08/16/2025 5:07 PM EST Juliana JACKSON calls senior underwriter, explains that patient has several abnormal labs and is recommending ER evaluation. Media Services Coordinator has extensive conversation with patient and family about options of care. Patient ultimately agrees to go to [facility] for evaluation. Media Services Coordinator recommends patient call physician office tomorrow and MANUEL to ensure procedure will be okay to proceed on Wednesday. Verbalizes understanding, d enies further questions at this time. documented in this encounter Plan of Treatment DateTypeDepartmentCare Team (Latest Contact Info)Infcnzgahsa64/04/2025 10:30 AM ESTInfusion [place]ola [place] [facility] - Medical Oncology [address] [place] [address], [place] [address] 08/31/2025 8:30 AM ESTInfusion Paola [place] [facility] Medical Oncology [address] [place] [address], [place] [phone] 09/10/2025 1:30 PM ESTOffice Visit [facility], A Department of [address] [place] [address] Annita Patton, SUPERVISOR STEEL DIVISION-LANDSCAPE PHOTOGRAPHER [address] [place] [address], [address] [place] [address] 09/25/2025 10:00 AM ESTInfusion Paola [place] [facility] Oncology [address] [place] [address], [place] [address] 09/26/2025 8:00 AM ESTTelemedicine [facility], A Department of [address] [place] [address] Annita Patton, SUPERVISOR STEEL DIVISION-LANDSCAPE PHOTOGRAPHER [address] [place] [address], [address] [place] [address] 09/26/2025 8:30 AM ESTInfusion Paola [place] [facility] Medical Oncology [address] [place] [phone] documented as of this encounter Goals GoalPatient Goal TypeAssociated ProblemsRecent ProgressPatient-Stated?Author return home Milagros Escobedo RN Note: Evaluation of progress towards goal: patient plans to return home with family support Autogenerated Goal Care PlanAutogenerated ProblemNoPotts, Elizabethdocumented as of this encounter Visit Diagnoses Not on filedocumented in this encounter Additional Health Concerns Active ProblemsNoted DateDiagnosed DateAutogenerated Jkicwfa7308/10/2025ssessment Noted TimePHQ-9 Depression Total Score: 3:45 PM ESTdocumented as of this encounter Care Teams Team MemberRelationshipSpecialtyStart DateEnd Date Bin Sidhu MD [address] [place] [address] PCP - GeneralFamily Tqnbzbcn15/9/25documented as of this encounter
--- OUTSIDE RECORDS SUMMARY | 2025-08-27 16:14 | XMS_ITS | Encounter Summary ---
Author Organization [employer] tem Address [id number] [address] [place] [address] Care Team Providers Care Bulk Pigment Reducer Name Role Phone Bin Sidhu MD Primary Care Provider [phone] Encounter Details DateTypeDepartmentCare Team (Latest Contact Info)Ezbmfwnpjnj42/01/2025Travel Social History Tobacco UseTypesPacks/DayYears UsedDateSmoking Tobacco: NeverSmokeless Tobacco: NeverAlcohol UseStandard Drinks/WeekCommentsNever0 (1 standard drink = 0.6 oz pure alcohol)PHQ-2AnswerDate RecordedTotal Kqeoj93510/04/2024UDIT-CAnswerDate RecordedQ1: How often do you have a [...] ValueDate RecordedSex Assigned at BirthNot on fileLegal MjyPqhzik89/08/2025 12:05 AM ESTGender IdentityNot on fileSexual OrientationNot on filedocumented as of this encounter Plan of Treatment DateTypeDepartmentCare Team (Latest Contact Info)Eywrbhnnypa95/04/2025 10:30 AM ESTInfusion Paola L Chandana [facility] - Medical Oncology [address] [place] [phone] 08/31/2025 8:30 AM ESTInfusion Paola Steve Chandana [facility] - Medical Oncology [address] [place] [phone] 09/10/2025 1:30 PM ESTOffice Visit [facility], A Department of [address] [place] [address] Annita Patton, TRACK GRINDER-SHAKE TABLE OPERATOR [facility], [address] [place] [address] 09/25/2025 10:00 AM ESTInfusion Paola Steve Chandana [facility] - Medical Oncology [address] [place] [phone] 09/26/2025 8:00 AM ESTTelemedicine [facility], A Department of [address] [place] [address] Annita Patton, TRACK GRINDER-SHAKE TABLE OPERATOR [address] [facility], [address] [place] [address] 09/26/2025 8:30 AM ESTInfusion Paola [facility] - Medical Oncology [address] [place] [phone] documented as of this encounter Goals GoalPatient Goal TypeAssociated ProblemsRecent ProgressPatient-Stated?Author return home Milagros Escobedo RN Note: Evaluation of progress towards goal: patient plans to return home with family support Autogenerated Goal Care PlanAutogenerated ProblemNoPotts, Elizabethdocumented as of this encounter Visit Diagnoses Not on filedocumented in this encounter Additional Health Concerns Active ProblemsNoted DateDiagnosed DateAutogenerated Kximvhq04/14/2025Assessment Noted TimePHQ-9 Depression Total Score: 3:45 PM ESTdocumented as of this encounter Care Teams Team MemberRelationshipSpecialtyStart DateEnd Date Bin Sidhu MD [address] [place] [address] PCP - GeneralFamily Rjtzqdvm59/9/25documented as of this encounter
--- OUTSIDE RECORDS SUMMARY | 2025-08-27 16:14 | XMS_ITS | Encounter Summary ---
Author Organization [facility] tem Address [facility] [id number] [address] [place] [address] Care Team Providers Care Bureau Director Name Role Phone Bin Sidhu MD Primary Care Provider [phone] Encounter Details DateTypeDepartmentCare Team (Latest Contact Info)Ybmtoofoesq21/26/2025Telephone [facility] Gynecology Oncology, A Department of [facility] [address] [address] Desmond Martin RN Social History Tobacco UseTypesPacks/DayYears UsedDateSmoking Tobacco: NeverSmokeless Tobacco: NeverAlcohol UseStandard Drinks/WeekCommentsNever0 (1 standard drink = 0.6 oz pure alcohol)PHQ-2AnswerDate RecordedTotal Tgoeb59210/04/2024UDIT-CAnswerDate RecordedQ1: How often do you have a [...] ValueDate RecordedSex Assigned at BirthNot on fileLegal HbvIlcbwg38/08/2025 12:05 AM ESTGender IdentityNot on fileSexual OrientationNot on filedocumented as of this encounter Miscellaneous Notes * Telephone Encounter - Desmond Martin RN - 08/22/2025 10:13 AM EST Maricel Mora from [facility] called the office stating that she will send over ED note, CT scans, Xray, H&P's and discharge summary from patients hospital stay. Rn Hemo Dialysis informed Maricel Cain wheelchair order that needs evaluation completed. Maricel Mora could not confirm that an evaluation was done. Fax number provided. documented in this encounter Plan of Treatment DateTypeDepartmentCare Team (Latest Contact Info)Ndhwnsqfgmc07/04/2025 10:30 AM ESTInfusion Paola [facility] - Medical Oncology [address] [place] [phone] 08/31/2025 8:30 AM ESTInfusion Paola [facility] - Medical Oncology [address] [place] [phone] 09/10/2025 1:30 PM ESTOffice Visit [facility], A Department of [address] [place] [phone] Annita Patton, NEWS SPECIALIST-TRACTOR SWEEPER DRIVER [address] [facility], [address] [place] [address] 09/25/2025 10:00 AM ESTInfusion Paola [facility] - Medical Oncology [address] [place] [phone] 09/26/2025 8:00 AM ESTTelemedicine [facility], A Department of [address] [place] [address] Annita Patton, NEWS SPECIALIST-TRACTOR SWEEPER DRIVER [address] [facility], [address] [place] [address] 09/26/2025 8:30 AM ESTInfusion Paolayenny [facility] - Medical Oncology [address] [place] [phone] documented as of this encounter Goals GoalPatient Goal TypeAssociated ProblemsRecent ProgressPatient-Stated?Author return home Milagros Escobedo RN Note: Evaluation of progress towards goal: patient plans to return home with family support Autogenerated Goal Care PlanAutogenerated ProblemNoPotts, Elizabethdocumented as of this encounter Visit Diagnoses Not on filedocumented in this encounter Additional Health Concerns Active ProblemsNoted DateDiagnosed DateAutogenerated Zaphvgw06/14/2025Assessment Noted TimePHQ-9 Depression Total Score: 3:45 PM ESTdocumented as of this encounter Care Teams Team MemberRelationshipSpecialtyStart DateEnd Date Bin Sidhu MD [address] [place] [address] PCP - GeneralFamily Wrwldjkn86/9/25documented as of this encounter
--- OUTSIDE RECORDS SUMMARY | 2025-08-27 16:14 | XMS_ITS | Encounter Summary ---
Author Organization [facility] tem Address [id number] [address] [place] [address] Care Team Providers Care Continuous Towel Roller Name Role Phone Bin Sidhu MD Primary Care Provider [phone] Encounter Details DateTypeDepartmentCare Team (Latest Contact Info)Cxomimhdhwl72/18/2025Telephone [facility] Gynecology Oncology, A Department of [facility] [address] [facility] [address] [place] [address] Christi Tsang, ERASMO Social History Tobacco UseTypesPacks/DayYears UsedDateSmoking Tobacco: NeverSmokeless Tobacco: NeverAlcohol UseStandard Drinks/WeekCommentsNever0 (1 standard drink = 0.6 oz pure alcohol)PHQ-2AnswerDate RecordedTotal Eucag48610/04/2024UDIT-CAnswerDate RecordedQ1: How often do you have a [...] ValueDate RecordedSex Assigned at BirthNot on fileLegal PzqWrlopg94/08/2025 12:05 AM ESTGender IdentityNot on fileSexual OrientationNot on filedocumented as of this encounter Miscellaneous Notes * Telephone Encounter - Christi Tsang CMA - 08/14/2025 3:55 PM EST Moon, from [facility], called regarding wheelchair order that was [...] either by themselves or with caregiver assistance. Shipbuilding Draftsperson to relay this information to the appropriate staff member(s) for further review. * Telephone Encounter - RE Fay - 08/14/2025 3:55 PM EST Yes we can put that eval documentation in our next progress note documented in this encounter Plan of Treatment DateTypeDepartmentCare Team (Latest Contact Info)Siemgxefykn53/04/2025 10:30 AM ESTInfusion Paola Ellington [facility] - Medical Oncology [address] [place] [address], [place] [address] 08/31/2025 8:30 AM ESTInfusion Paola Ellington [facility] - Medical Oncology [address] [place] [address], [place] [address] 09/10/2025 1:30 PM ESTOffice Visit [facility], A Department of [address] [place] [phone] Annita Patton, STOCKROOM SELECTOR-[address], [address] [place] [address] 09/25/2025 10:00 AM ESTInfusion Paola Ellington [facility] - Medical Oncology [address] [place] [phone] 09/26/2025 8:00 AM ESTTelemedicine [facility], A Department of [address] [place] [phone] Annita Patton, STOCKROOM SELECTOR[address], [address] [place] [address] 09/26/2025 8:30 AM ESTInfusion Paola Ellington [facility] - Medical Oncology [address] [place] [phone] documented as of this encounter Goals GoalPatient Goal TypeAssociated ProblemsRecent ProgressPatient-Stated?Author return home Milagros Escobedo RN Note: Evaluation of progress towards goal: patient plans to return home with family support Autogenerated Goal Care PlanAutogenerated ProblemNoPotts, Elizabethdocumented as of this encounter Visit Diagnoses Not on filedocumented in this encounter Additional Health Concerns Active ProblemsNoted DateDiagnosed DateAutogenerated Glbgxkb9008/10/2025ssessment Noted TimePHQ-9 Depression Total Score: 3:45 PM ESTdocumented as of this encounter Care Teams Team MemberRelationshipSpecialtyStart DateEnd Date Bin Sidhu MD [address] [place] [address] PCP - GeneralFamily Xpxuelik20/9/25documented as of this encounter
--- OUTSIDE RECORDS SUMMARY | 2025-08-27 16:15 | XMS_ITS | Clinical Summary ---
Author Organization [facility] Address [address] [place], [place] [address] Care Team Providers Care Car Rental Sales Assistant Name Role Phone Bin Sidhu MD Primary Care Provider Allergies Active AllergyReactionsCriticalityNoted RpyhUitjvdxfVvkdlXeagKkif21/31/2009 Medications MedicationSigDispense QuantityRefillsLast FilledStart DateEnd DateStatus TETRACYCLINE 500 MG CAP Indications:Knee joint xjyp342ctive naproxen(NAPROSYN 500 MG TAB) Indications:Knee joint pain,Knee bursitis1 PPO BID with food 60 ctive Social History Tobacco UseTypesPacks/DayYears UsedDateSmoking Tobacco: Never Assessed CommentsUnknownSex and Gender InformationValueDate RecordedSex Assigned at Not on fileLegal AahJhnlsp26/02/2012 8:21 AM ESTGender IdentityNot on fileSexual OrientationNot on file Plan of Treatment Health MaintenanceDue DateLast DoneCommentsAnxiety Bicuygkau60/05/1973Depression Uxueygmwn19/05/1973Hepatitis C Bzbhriyct99/05/1973DTaP,Tdap,Td Vaccine (1 - Tdap)1974Mammogram Nvvqwdhxs29/05/1995CT Xrnbcarlcztm68/05/2000Cologuard (FIT-DNA)03/31/20005695Vqrkkeibjpm34/05/2000Colorectal Cancer Xwfczxohk85/05/2000 Diabetes Neqzhishl38/05/2000Fecal Occult Blood2000Lipid Screening 03/31/20002318Kjyneygeiolav21/05/2000Pneumococcal Vaccine: 50+ (1 of 1 - PCV) 2005Shingrix Vaccine (1 of 2)2005Bone Density Jwblqfstb74/05/2020 Advance Directive Ndhbxtvvsn00/01/2025ovid-19 Vaccine ( - 2024-26 season) 2025Influenza Vaccine (#1)2025RSV Vaccine (1 - 1-dose 75+ series) 2030 Insurance Care Teams Team MemberRelationshipSpecialtyStart DateEnd Date Bin Sidhu MD [address] [place] [address] [facility]05/10/09
--- NOTE | 2025-08-27 17:26 | PE_ITS ---
The [address] [address] Patient Name: OTONIEL GONZALEZ MRN: [id number] date: 1955 Sex: F Assigned Patient Location: PETCT Current Patient Location: Accession/Order Number: [id number] Exam Date: 08/27/2025 16:26 Report Date: 08/28/2025 08:04 At the request of: NON-STAFF PHYSICIAN Procedure: PET skull to mid thigh PET/CT WITH FUSION COMPARISON: CT abdomen and pelvis 08/16/2025 CLINICAL DATA: Endometrial cancer Following the intravenous administration of 11.36 mCi of FDG, SPECT imaging in 3 planes was performed from the level the orbits through the groin. The patient's blood glucose level at the time of injection was 126 mg/dL. Spiral unenhanced CT was also performed for anatomic localization. The PET and CT images were fused. This CT exam was performed using one or more following dose reduction techniques: Automated exposure control, adjustment of the mA and/or kV according to patient size, or use of iterative reconstruction technique. NECK: No enlarged or hypermetabolic cervical lymph nodes are seen. Mild suspected physiologic activity is visualized at the oral cavity. There is also asymmetric increased uptake at the left submandibular gland and at the tonsils, greater on the right. There is no corresponding CT abnormalities and this might also be physiologic. CHEST: No enlarged or hypermetabolic mediastinal, hilar or axillary lymph nodes are seen. There is no abnormal pulmonary FDG uptake. There is minimal atelectasis and scarring. There is also a tiny nodule at the left upper lobe. There is a tiny hiatal hernia that has mild associated increased FDG uptake. This could be physiologic. ABDOMEN/PELVIS: There are no hypermetabolic hepatic or adrenal lesions. There are scattered mesenteric nodules within the abdomen, largest anteriorly on the left measuring 2.7 cm in size. There are also nodules along the pelvic sidewalls, larger on the left measuring 3.5 cm. These are likely pathologic lymph nodes. Increased FDG uptake is present with SUV up to 10.8. The uterus is surgically absent. There is cholelithiasis and/or sludge. Bilateral nephrolithiasis is noted. There is physiologic activity involving the urinary tract. There is also suspected physiologic bowel activity which involves some of the left-sided colonic diverticula. PET/PET skull to mid thigh IMPRESSION: HYPERMETABOLIC ABDOMINAL AND PELVIC LYMPH NODES SUSPICIOUS FOR METASTATIC DISEASE Impression dictated by: Arline Calderon M.D. 08/28/2025 8:04 AM Dictation Location: [place] [address] Electronically authenticated by: [id number] Y Date: 08/28/2025 08:04
== END 2025-08-27 16:12 | disposition home or self-care (01) ==
LOC: PETCT 16:11
DX: C54.1 Malignant neoplasm of endometrium (principal)
CPT/HCPCS: 78815; A9552

== ENCOUNTER 2025-08-28 13:23 | Outpatient (REF) | payer MEDICARE, OTHER, SELFPAY ==
--- OUTSIDE RECORDS SUMMARY | 2025-08-16 15:00 | XMS_ITS | Encounter Summary ---
Author Organization [facility] tem Address [id number] [address] [place] [address] Care Team Providers Care Sales And Support Center Agent Name Role Phone Bin Sidhu MD Primary Care Provider [phone] Encounter Details DateTypeDepartmentCare Team (Latest Contact Info)Xfxqnrkpipp22/20/2025 3:00 PM ESTProcedure visit [facility] - Pre Admit [address] [place] [address] Preop examination (Primary Dx); Anemia, unspecified type Social History Tobacco UseTypesPacks/DayYears UsedDateSmoking Tobacco: NeverSmokeless Tobacco: NeverAlcohol UseStandard Drinks/WeekCommentsNever0 (1 standard drink = 0.6 oz pure alcohol)PHQ-2AnswerDate RecordedTotal Iyuhh44210/04/2024UDIT-CAnswerDate RecordedQ1: How often do you have a [...] ValueDate RecordedSex Assigned at BirthNot on fileLegal NncSydiwb06/08/2025 12:05 AM ESTGender IdentityNot on fileSexual OrientationNot on filedocumented as of this encounter Last Filed Vital Signs Vital SignReadingTime TakenCommentsBlood Pressure--Pulse--Temperature-- Respiratory Rate--Oxygen Saturation--Inhaled Oxygen Concentration--Zgafrs35.3 kg (155 lb)08/16/2025 3:27 PM ZZTUraaed869.5 cm (5' 2 )08/16/2025 3:27 PM ESTBody [...] in at the main lobby of the [facility]- registration desk is straight ahead as soon as you walk in. Tell them you are here for surgery. 2. If you have a Living Will/Durable Power of Gang Vibrator Operator for Health Care that is not on [...] after you have bathed. 5. NO nail dominican/acrylic on at least one finger. If you are having a hand, wrist or foot surgery then all nail dominican and artificial/acrylic nails must be removed from [...] please call the Preadmission Testing office at [phone], Mon.-Fri. 7 a.m.-3 p.m. Leave a voicemail [...] in at the main lobby of the [facility]- registration desk is straight ahead as soon as you walk in. Tell them you are here for surgery. 2. If you have a Living Will/Durable Power of Gang Vibrator Operator for Health Care that is not on [...] after you have bathed. 5. NO nail dominican/acrylic on at least one finger. If you are having a hand, wrist or foot surgery then all nail dominican and artificial/acrylic nails must be removed from [...] please call the Preadmission Testing office at [phone], Mon.-Fri. 7 a.m.-3 p.m. Leave a voicemail [...] Plan of Treatment DateTypeDepartmentCare Team (Latest Contact Info)Ykqyzswfzma86/04/2025 10:30 AM ESTInfusion Paola Ellington [facility] - Medical Oncology [address] [place] [phone] 08/31/2025 8:30 AM ESTInfusion Paola Ellington [facility] - Medical Oncology [address] [place] [phone] 09/03/2025 2:15 PM ESTProcedure visit [facility] - Pre [facility]mit [address] [place] [address] 09/10/2025 9:30 AM ESTHospital Encounter [facility] - Surgery [address] [place] [phone] Justin Mackey MD [address] [place] [phone] 09/10/2025 9:30 AM EST - 09/10/2025 10:30 AM ESTSurgery [facility] [address] [place] [phone] Justin Mackey MD [address] [place] [address] INSERTION PORT A CATH [[id number] (CPT??)]09/18/2025 8:30 AM ESTTelemedicine [facility], A Department of [address] [place] [address] Annita Patton, STAMP MAKER-COMPUTER FORWARDING SYSTEM MARKUP CLERK [address] [place] [address], [address] [place] [address] 09/19/2025 9:30 AM ESTInfusion Paola L [facility] - Medical Oncology [address] [place] [phone] 09/21/2025 8:00 AM ESTInfusion Paola Wilson Rich [facility] - Medical Oncology [address] [place] [phone] NamePriorityAssociated DiagnosesDate/TimeINSERTION PORT A CATH needed for chemotherapy 09/10/2025 9:30 AM ESTdocumented as of this encounter Goals GoalPatient Goal TypeAssociated ProblemsRecent ProgressPatient-Stated?Author return home Milagros Escobedo, JORDYN Note: Evaluation of progress towards goal: patient plans to return home with family support Autogenerated Goal Care PlanAutogenerated ProblemNoPotts, Elizabethdocumented as of this encounter Results * (ABNORMAL) Basic Metabolic Panel (08/16/2025 3:52 PM EST)ComponentValueRef RangeTest MethodAnalysis TimePerformed AtPathologist TwtpuzmbhIUDUGQ935323 - 146 mmol/L110/16/2024 4:17 PM ESTWYANDOT MEMORIAL HOSPITALPOTASSIUM 2.6(LL)3.5 - 5.0 mmol/L110/16/2024 4:17 PM ESTWYANDOT MEMORIAL HOSPITALCHLORIDE10398 - 109 mmol/L110/16/2024 4:17 PM ESTWYANDOT MEMORIAL HOSPITALCARBON UYTFEGG5438 - 32 mmol/L110/16/2024 4:17 PM ESTWYANDOT MEMORIAL HOSPITALANION AFS642 - 15 mmol/L110/16/2024 4:17 PM EST [facility]OSPITALBLOOD UREA KTOUZBUL295 - 27 mg/dL08/16/2025 4:17 PM [facility]CREATININE0.700.40 - 1.00 mg/dL 08/16/2025 4:17 PM [facility]ITALComment:METHOD TRACEABLE TO IDMS QJBLFSTAMHHZVXD606(H)65 - 99 mg/dL08/16/2025 4:17 PM EST [facility]ITALCALCIUM8.58.5 - 10.5 mg/dL08/16/2025 4:17 PM [facility] HOSPITALEGFR Non-Race Dependent>90>=60 ml/min/1.73sq.m110/16/2024 4:17 PM [facility] Comment: Reported eGFR is based on the CKD-EPI 2020 equation that does not use a race coefficient. Specimen (Source)Anatomical Location / LateralityCollection Method / Volume Collection TimeReceived TimeBloodVenous blood / UnknownVenipuncture / Unknown 08/16/2025 3:52 PM EST08/16/2025 3:52 PM EST Narrative Authorizing ProviderResult TypeResult StatusDaviquiana Angulo MDLAB BLOOD ORDERABLESFinal ResultPerforming OrganizationAddressCity/State/ZIP CodePhone Number [facility] [address] [place] [address], [place] * (ABNORMAL) CBC auto differential (08/16/2025 3:52 PM EST)ComponentValueRef RangeTest MethodAnalysis TimePerformed AtPathologist VgnpqwaoiDKE32.6(H)4 - 11 10^9/L110/16/2024 4:45 PM ESTWYANDOT MEMORIAL HOSPITALRBC Count4.06 3.8 - 5.2 10^12/L110/16/2024 4:45 PM [facility] Ojommgjova71.4(L)11.7 - 15.5 g/dL08/16/2025 4:45 PM ESTWYANDOT MEMORIAL HOSPITALHematocrit34.4(L)35 - 47 %08/16/2025 4:45 PM ESTWYANDOT MEMORIAL HOSPITALMCV8580 - 100 fL08/16/2025 4:45 PM [facility]ITALMCH28.027 - 34 pg08/16/2025 4:45 PM [facility]ITALMCHC33.032 - 36 g/dL08/16/2025 4:45 PM ESTWYANDOT MEMORIAL HOSPITALRDW16.6(H)11.5 - 15 %08/16/2025 4:45 PM [facility] HOSPITALPlatelet Dlhgt081(H)150 - 450 10^9/L110/16/2024 4:45 PM ESTWYANDOT MEMORIAL HOSPITALMPV8.07 - 12 fL08/16/2025 4:45 PM EST [facility]PITALBands %8%08/16/2025 4:45 PM [facility]ITALComment:This is an appended report. These results have been appended to a previously preliminary verified report.Neutrophils %81 %08/16/2025 4:45 PM ESTWYANDOT MEMORIAL HOSPITALComment:This is an appended report. These results have been appended to a previously preliminary verified report.Lymphocytes %4%08/16/2025 4:45 PM ESTWYANDOT MEMORIAL HOSPITALComment:This is an appended report. These results have been appended to a previously preliminary verified report.Monocytes %7%08/16/2025 4:45 PM [facility]ITALComment:This is an appended report. These results have been appended to a previously preliminary verified report.Neutrophils Absolute (M)27.3(H)1.5 - 6.6 10^9/L110/16/2024 4:45 PM EST [facility]ITALComment:This is an appended report. These results have been appended to a previously preliminary verified report. Lymphocytes Absolute1.21.0 - 3.5 10^9/L110/16/2024 4:45 PM [facility]ITALComment:This is an appended report. These results have been appended to a previously preliminary verified report.Monocytes Absolute2.1(H) 0.0 - 0.9 10^9/10/16/2024 4:45 PM [facility] Comment:This is an appended report. These results have been appended to a previously preliminary verified report.Polychromasia1+08/16/2025 4:45 PM EST [facility]ITALComment:This is an appended report. These results have been appended to a previously preliminary verified report. Elliptocytes1+08/16/2025 4:45 PM [facility] Comment:This is an appended report. These results have been appended to a previously preliminary verified report.Stomatocytes1+08/16/2025 4:45 PM EST [facility]ITALComment:This is an appended report. These results have been appended to a previously preliminary verified report. Differential TypeMANUAL HHIDDVWCIZOY58/20/2025 4:45 PM [facility]ITALComment:This is an appended report. These results have been appended to a previously preliminary verified report.Specimen (Source) Anatomical Location / LateralityCollection Method / VolumeCollection Time Received TimeBloodVenous blood / UnknownVenipuncture / Gucrbwn0508/16/2025 3:52 PM EST08/16/2025 3:52 PM EST Narrative Authorizing ProviderResult TypeResult StatusDaapollo Angulo [facility] BLOOD ORDERABLESFinal ResultPerforming OrganizationAddressCity/State/ZIP CodePhone Number [facility] [address] [place] [address], documented in this encounter Visit Diagnoses Diagnosis Preop examination- Primary Unspecified pre-operative examination Anemia, unspecified type documented in this encounter Additional Health Concerns Active ProblemsNoted DateDiagnosed DateAutogenerated Enqlwbf2908/10/2025ssessment Noted TimePHQ-9 Depression Total Score: 3:45 PM ESTdocumented as of this encounter Care Teams Team MemberRelationshipSpecialtyStart DateEnd Date Bin Sidhu MD [address] [place], [place] [id number] PCP - GeneralFamily Qdmyzyfu83/9/25documented as of this encounter
--- OUTSIDE RECORDS SUMMARY | 2025-08-27 15:30 | XMS_ITS | Encounter Summary ---
Author Organization [facility] tem Address [id number] [place] [address] Care Team Providers Care Tractor Engine Assembler Name Role Phone Bin Sidhu MD Primary Care Provider [phone] Encounter Details DateTypeDepartmentCare Team (Latest Contact Info)Kkrajembhfu83/01/2025 3:30 PM ESTTelemedicine [facility], A Department of [address] [place] [address] Annita Patton, PROGRAM DIRECTOR SUBSTANCE ABUSE-SLATE MIXER [address] [place] [address], [address] [place] [address] Endometrial cancer determined by uterine biopsy ([facility]) (Primary Dx); Encounter for chemotherapy management Social History Tobacco UseTypesPacks/DayYears UsedDateSmoking Tobacco: NeverSmokeless Tobacco: NeverAlcohol UseStandard Drinks/WeekCommentsNever0 (1 standard drink = 0.6 oz pure alcohol)PHQ-2AnswerDate RecordedTotal Bsfuh06610/04/2024UDIT-CAnswerDate RecordedQ1: How often do you have a [...] ValueDate RecordedSex Assigned at BirthNot on fileLegal YilUhvjmr92/08/2025 12:05 AM ESTGender IdentityNot on fileSexual OrientationNot on filedocumented as of this encounter Plan of Treatment DateTypeDepartmentCare Team (Latest Contact Info)Bxvssxfrgrj04/04/2025 10:30 AM ESTInfusion [facility] - Medical Oncology [address] [place] [phone] 08/31/2025 8:30 AM ESTInfusion Paola [facility] - Medical Oncology [address] [place] [phone] 09/03/2025 2:15 PM ESTProcedure visit [facility] - Pre [facility]mit [address] [place] [address] 09/10/2025 9:30 AM ESTHospital Encounter [facility] - Surgery [address] [facility] [place] [address] Justin Mackey MD [address] [place] [phone] 09/10/2025 9:30 AM EST - 09/10/2025 10:30 AM ESTSurgery [facility] - Surgery [address] [place] [phone] Justin Mackey MD [address] [place] [phone] INSERTION PORT A CATH [[id number] (CPT??)]09/18/2025 8:30 AM ESTTelemedicine [facility] Gynecology Oncology, A Department of [address] [place] [phone] Annita Patton, PROGRAM DIRECTOR SUBSTANCE ABUSE-SLATE MIXER [address] [place] [address], [address] [place] [address] 09/19/2025 9:30 AM ESTInfusion Paola [facility] - Medical Oncology [address] [place] [phone] 09/21/2025 8:00 AM ESTInfusion Paola [facility] - Medical Oncology [address] [place] [phone] NameTypePriorityAssociated DiagnosesOrder ScheduleCaris [place] Cancer Seek??? + Additional TestsLabRoutine Endometrial cancer determined by uterine biopsy ([facility]) Ordered: 08/27/2025NamePriorityAssociated DiagnosesDate/TimeINSERTION PORT A CATH needed for chemotherapy 09/10/2025 9:30 AM ESTdocumented as of this encounter Goals GoalPatient Goal TypeAssociated ProblemsRecent ProgressPatient-Stated?Author return home Milagros Escobedo RN Note: Evaluation of progress towards goal: patient plans to return home with family support Autogenerated Goal Care PlanAutogenerated ProblemNoPottsJosethdocumented as of this encounter Visit Diagnoses Diagnosis Endometrial cancer determined by uterine biopsy ([facility])- Primary Encounter for chemotherapy management documented in this encounter Additional Health Concerns Active ProblemsNoted DateDiagnosed DateAutogenerated Qnwhcrc7408/10/2025ssessment Noted TimePHQ-9 Depression Total Score: 3:45 PM ESTdocumented as of this encounter Care Teams Team MemberRelationshipSpecialtyStart DateEnd Date Bin Sidhu MD [address] [place] [address] PCP - GeneralFamily Poehvkxw69/9/25documented as of this encounter
--- OUTSIDE RECORDS SUMMARY | 2025-08-28 13:31 | XMS_ITS | Encounter Summary ---
Author Organization [employer] tem Address [facility] [id number] [address] [place] [address] Care Team Providers Care Lacquer Coater Name Role Phone Bin Sidhu MD Primary Care Provider [phone] Encounter Details DateTypeDepartmentCare Team (Latest Contact Info)Rysdabsthjk63/21/2025Telephone [facility] Gynecology Oncology, A Department of [facility] [address] [facility] [address] [place] [address] Milagros Machado RN Social History Tobacco UseTypesPacks/DayYears UsedDateSmoking Tobacco: NeverSmokeless Tobacco: NeverAlcohol UseStandard Drinks/WeekCommentsNever0 (1 standard drink = 0.6 oz pure alcohol)PHQ-2AnswerDate RecordedTotal Zbpxf97410/04/2024UDIT-CAnswerDate RecordedQ1: How often do you have a [...] ValueDate RecordedSex Assigned at BirthNot on fileLegal SebFibqhk03/08/2025 12:05 AM ESTGender IdentityNot on fileSexual OrientationNot on filedocumented as of this encounter Miscellaneous Notes * Telephone Encounter - Milagros Machado RN - 08/17/2025 10:37 AM EST checker product design with PFO general surgery [facility] Backroom Associate attempted to return call, VM left stating office received VM and they could call iftheir were additional questions or concerns. Per notes, patient was admitted with dx of C. Diff. documented in this encounter Plan of Treatment DateTypeDepartmentCare Team (Latest Contact Info)Hlfuxuamrwg43/04/2025 10:30 AM ESTInfusion Paola Ellington [facility] - Medical Oncology [address] [place] [phone] 08/31/2025 8:30 AM ESTInfusion Paola Ellington [facility] - Medical Oncology [address] [place] [phone] 09/03/2025 2:15 PM ESTProcedure visit [facility] - Pre Admit [address] [place] [phone] 09/10/2025 9:30 AM ESTHospital Encounter [facility] Surgery [address] [place] [phone] Justin Mackey MD [address] [facility] [place] [phone] 09/10/2025 9:30 AM EST - 09/10/2025 10:30 AM ESTSurgery [facility] [address] [place] [phone] Justin Mackey MD [address] [place] [phone] INSERTION PORT A CATH [[id number] (CPT??)]09/18/2025 8:30 AM ESTTelemedicine [facility] Gynecology Oncology, A Department of [address] [place] [phone] Annita Patton, GROUND HELPER STREET RAILWAY-QUALITY SYSTEMS MANAGER [address] [place] [address], [address] [place] [address] 09/19/2025 9:30 AM ESTInfusion Paola Ellington [facility] - Medical Oncology [address] [place] [phone] 09/21/2025 8:00 AM ESTInfusion Paola Ellington [facility] - Medical Oncology [address] [place] [phone] NamePriorityAssociated DiagnosesDate/TimeINSERTION PORT A CATH needed for [...] Additional Health Concerns Active ProblemsNoted DateDiagnosed DateAutogenerated Rmopkts6008/10/2025ssessment Noted TimePHQ-9 Depression Total Score: 3:45 PM ESTdocumented as of this encounter Care Teams Team MemberRelationshipSpecialtyStart DateEnd Date Bin Sidhu MD [address] [place] [address] PCP - GeneralFamily Otqtmwmo07/9/25documented as of this encounter
--- OUTSIDE RECORDS SUMMARY | 2025-08-28 13:31 | XMS_ITS ---
Author Organization [employer] tem Address [facility] [place]-[id number] [address] [place] [address] Care Team Providers Care Transportation Dispatcher Name Role Phone Bin Sidhu MD Primary Care Provider [phone] Active Problems ProblemNoted DateDiagnosed DateEndometrial cancer determined by uterine biopsy 08/08/2025 Cancer Staging: Pathologic stage from 08/07/2025:FIGO Stage IIIB2, calculated as Stage Unknown (pT3b, pNX) - Unsigned Current Treatment and Therapy Plans Adult oncology/infusion center flush orders* Plan Start Date:08/08/2025 Plan Provider:RE Fay Linked Problems Endometrial cancer determine d by uterine biopsy ([facility]) Treatment Medications No medications scheduled. Oncology hydration and supportive care* Plan Start Date:08/08/2025 Plan Provider:RE Fay Linked Problems Endometrial cancer determine d by uterine biopsy ([facility]) Treatment Medications No medications scheduled. Oncology standing electrolyte replacement* Plan Start Date:08/08/2025 Plan Provider:RE Fay Linked Problems Endometrial cancer determine d by uterine biopsy ([facility]) Treatment Medications No medications scheduled. OP ADVANCED ENDOMETRIAL PEMBROLIZUMAB / PACLItaxel / CARBOplatin X 6 CYCLES THEN PEMBROLIZUMAB ALONE* Plan Start Date:08/07/2025 Plan Provider:Rocio Alexander MD Linked Problems Endometrial cancer determine d by uterine biopsy ([facility]) Treatment MedicationsCurrent Day (Day 1, Cycle 1 [...] found. Resolved Problems ProblemNoted DateDiagnosed DateResolved DateVaginal rnadjjgd43 Pelvic massVagina kmvxvlyq37
--- OUTSIDE RECORDS SUMMARY | 2025-08-28 13:31 | XMS_ITS | Encounter Summary ---
Author Organization [facility] tem Address [facility]-[id number] [address] [place] [address] Care Team Providers Care Graphics Production Specialist Name Role Phone Bin Sidhu MD Primary Care Provider [phone] Encounter Details DateTypeDepartmentCare Team (Latest Contact Info)Nudxmkvjnlf68/18/2025Telephone [facility] Gynecology Oncology, A Department of [facility] [address] [facility] [address] [place] [address] Christi Tsang, ERASMO Social History Tobacco UseTypesPacks/DayYears UsedDateSmoking Tobacco: NeverSmokeless Tobacco: NeverAlcohol UseStandard Drinks/WeekCommentsNever0 (1 standard drink = 0.6 oz pure alcohol)PHQ-2AnswerDate RecordedTotal Zbxnp41810/04/2024UDIT-CAnswerDate RecordedQ1: How often do you have a [...] ValueDate RecordedSex Assigned at BirthNot on fileLegal WctAsnmau73/08/2025 12:05 AM ESTGender IdentityNot on fileSexual OrientationNot on filedocumented as of this encounter Miscellaneous Notes * Telephone Encounter - Christi Tsang CMA - 08/14/2025 3:55 PM EST Moon, from [facility], called regarding wheelchair order that [...] either by themselves or with caregiver assistance. Commercial Diver to relay this information to the appropriate staff member(s) for further review. * Telephone Encounter - RE Fay - 08/14/2025 3:55 PM EST Yes we can put that eval documentation in our next progress note documented in this encounter Plan of Treatment DateTypeDepartmentCare Team (Latest Contact Info)Jojmmqwjgfb06/04/2025 10:30 AM ESTInfusion Paola Ellington [facility] - Medical Oncology [address] [place] [address], [place] [address] 08/31/2025 8:30 AM ESTInfusion Paola Ellington [facility] - Medical Oncology [address] [place] [address], [place] [address] 09/03/2025 2:15 PM ESTProcedure visit [facility] - Pre Admit [address] [place] [address] 09/10/2025 9:30 AM ESTHospital Encounter [facility] - Surgery [address] [facility] [address] Justin Mackey MD [address] [facility] [place] [address] 09/10/2025 9:30 AM EST - 09/10/2025 10:30 AM ESTSurgery [facility] - Surgery [address] [place] [address] Justin Mackey MD [address] [place] [phone] INSERTION PORT A CATH [[id number] (CPT??)]09/18/2025 8:30 AM ESTTelemedicine [facility] Gynecology Oncology, A Department of [address] [place] [phone] Annita Patton, SUPERVISOR GAME FARM-INTERIOR PANELER [address] [place] [address], [address] [place] [address] 09/19/2025 9:30 AM ESTInfusion Paola L Chandana [facility] - Medical Oncology [address] [place] [phone] 09/21/2025 8:00 AM ESTInfusion [facility] - Medical Oncology [address] [place] [phone] NamePriorityAssociated DiagnosesDate/TimeINSERTION PORT A CATH needed for [...] Additional Health Concerns Active ProblemsNoted DateDiagnosed DateAutogenerated Jxwtysc2508/10/2025ssessment Noted TimePHQ-9 Depression Total Score: 3:45 PM ESTdocumented as of this encounter Care Teams Team MemberRelationshipSpecialtyStart DateEnd Date Bin Sidhu MD [address] [place] [address] PCP - GeneralFamily Qsgqefwc56/9/25documented as of this encounter
--- OUTSIDE RECORDS SUMMARY | 2025-08-28 13:31 | XMS_ITS | Encounter Summary ---
Author Organization [facility] tem Address [id number] [address] [place] [address] Care Team Providers Care Systems Security Analyst Name Role Phone Bin Sidhu MD Primary Care Provider [phone] Encounter Details DateTypeDepartmentCare Team (Latest Contact Info)Meoweajdkhx78/25/2025Tumor Conference [facility] Gynecology Oncology, A Department of [address] [place] [address] Annita Patton, AGRICULTURAL EDUCATION PROFESSOR-MATERIAL REQUIREMENTS PLANNING MANAGER [address] [place] [address], [address] [place] [address] Social History Tobacco UseTypesPacks/DayYears UsedDateSmoking Tobacco: NeverSmokeless Tobacco: NeverAlcohol UseStandard Drinks/WeekCommentsNever0 (1 standard drink = 0.6 oz pure alcohol)PHQ-2AnswerDate RecordedTotal Lunqd44810/04/2024UDIT-CAnswerDate RecordedQ1: How often do you have a [...] ValueDate RecordedSex Assigned at BirthNot on fileLegal LqkPhrptw95/08/2025 12:05 AM ESTGender IdentityNot on fileSexual OrientationNot on filedocumented as of this encounter Miscellaneous Notes * Tumor Conference Note - Annita Patton APRN-MATERIAL REQUIREMENTS PLANNING MANAGER - 08/21/2025 10:29 AM EST Images from the original note were not included. Multidisciplinary Cancer Conference Center Note Patient Name: Eunice Anderson : 1955 Conference Type:MANAGER BAKERY Conference Date: 08/21/25 Patient's Care Team: Patient Care Team: Bin Sidhu MD as PCP - General (Family Medicine) Milagros Machado RN as Registered Nurse (Gynecologic Oncology) Rocio Alexander MD as Consulting Physician (Obstetrics & Gynecology) Dennis Monson MD as Referring Physician (Gynecologic Oncology) RE Fay as Physician Fluorescent Solution Mixer (Gynecologic Oncology) Physicians in attendance: Corey Mcdaniel Ali, Forquer Site/Laterality/Histology: Uterus Patient Presentation: Eunice Anderson is a 70 y.o. female who presented as transport from [facility] for vaginal bleeding. Patient reports [...] regarding trials, Please call Clinical Research at [phone] National Guidelines discussed (NCCN, AUA, NCI, etc): [...] can be directed to the Cancer Registry: [phone] documented in this encounter Plan of Treatment DateTypeDepartmentCare Team (Latest Contact Info)Sckwfjdejot60/04/2025 10:30 AM ESTInfusion [facility] - Medical Oncology [address] [place] [address] 08/31/2025 8:30 AM ESTInfusion [facility]ola [facility]ington [facility] - Medical Oncology [address] [place] [phone] 09/03/2025 2:15 PM ESTProcedure visit [facility] - Pre Admit [address] [place] [address] 09/10/2025 9:30 AM ESTHospital Encounter [facility] - Surgery [address] [place] [phone] Justin Mackey MD [address] [facility] [place] [address] 09/10/2025 9:30 AM EST - 09/10/2025 10:30 AM ESTSurgery [facility] - Surgery [address] [place] [address] Justin Mackey MD [address] [place] [address] INSERTION PORT A CATH [[id number] (CPT??)]09/18/2025 8:30 AM ESTTelemedicine [facility] Gynecology Oncology, A Department of [address] [place] [address] Annita Patton, AGRICULTURAL EDUCATION PROFESSOR-MATERIAL REQUIREMENTS PLANNING MANAGER [address] [place] [address], [address] [place] [address] 09/19/2025 9:30 AM ESTInfusion [facility]ola [facility] - Medical Oncology [address] [place] [address] 09/21/2025 8:00 AM ESTInfusion [facility]ola Ellington [facility] - Medical Oncology [address] [place] [phone] NamePriorityAssociated DiagnosesDate/TimeINSERTION PORT A CATH needed [...] Additional Health Concerns Active ProblemsNoted DateDiagnosed DateAutogenerated Exyvivs4608/10/2025ssessment Noted TimePHQ-9 Depression Total Score: 3:45 PM ESTdocumented as of this encounter Care Teams Team MemberRelationshipSpecialtyStart DateEnd Date Bin Sidhu MD [address] [place] [address] PCP - GeneralFamily Kzcdhxnu62/9/25documented as of this encounter
--- OUTSIDE RECORDS SUMMARY | 2025-08-28 13:31 | XMS_ITS | Clinical Summary ---
Author Organization [facility] Address [address] [place] [address] Care Team Providers Care Honeycomb Decapper Name Role Phone Unavailable Primary Care Provider Unavailabl e Social History Tobacco UseTypesPacks/DayYears UsedDateSmoking Tobacco: Never Assessed CommentsUnknownSex and Gender InformationValueDate RecordedSex Assigned at Not on fileLegal GbxVeoftb65/15/2023 11:23 PM EDTGender IdentityNot on file Sexual OrientationNot on file Last Filed Vital Signs Vital SignReadingTime TakenCommentsBlood Pressure--Pulse--Temperature-- Respiratory Rate--Oxygen Saturation--Inhaled Oxygen Concentration--Ruanch21.9 kg (143 lb)09/29/2021 12:00 PM XJHYkgyof740.5 cm (5' 2 )09/29/2021 12:00 PM ESTBody Mass Index26.16009/29/2021 12:00 PM EST Plan of Treatment [place] [address]
--- OUTSIDE RECORDS SUMMARY | 2025-08-28 13:31 | XMS_ITS | Encounter Summary ---
Author Organization [facility] tem Address [facility] [id number] [address] [place] [address] Care Team Providers Care Commodities Broker Name Role Phone Bin Sidhu MD Primary Care Provider [phone] Encounter Details DateTypeDepartmentCare Team (Latest Contact Info)Qjmvbelaldc72/19/2025Telephone [facility] Gynecology Oncology, A Department of [facility] [address] [facility] [address] [place] [address] Milagros Machado RN Social History Tobacco UseTypesPacks/DayYears UsedDateSmoking Tobacco: NeverSmokeless Tobacco: NeverAlcohol UseStandard Drinks/WeekCommentsNever0 (1 standard drink = 0.6 oz pure alcohol)PHQ-2AnswerDate RecordedTotal Tkvhw17710/04/2024UDIT-CAnswerDate RecordedQ1: How often do you have a [...] ValueDate RecordedSex Assigned at BirthNot on fileLegal ApmHvvtps02/08/2025 12:05 AM ESTGender IdentityNot on fileSexual OrientationNot on filedocumented as of this encounter Miscellaneous Notes * Telephone Encounter - Milagros Machado RN - 08/15/2025 4:04 PM EST Patient contacted office stating PET CT is scheduled for 08/28. Patient also stated that the RN she scheduled PET CT with advised her to try metamucil for her diarrhea. Rewinder Operator Helper advised patient that metamucil is usually used for constipation but has been known to help with diarrhea as well and that she could try it it if she wanted to. Patient verbalized her understanding. documented in this encounter Plan of Treatment DateTypeDepartmentCare Team (Latest Contact Info)Uraaofgxdqs48/04/2025 10:30 AM ESTInfusion [facility]ola [facility]ington [facility] - Medical Oncology [address] [place] [phone] 08/31/2025 8:30 AM ESTInfusion [facility] Ellington [facility] - Medical Oncology [address] [place] [phone] 09/03/2025 2:15 PM ESTProcedure visit [facility] - Pre Admit [address] [place] [address] 09/10/2025 9:30 AM ESTHospital Encounter [facility] - Surgery [address] [place] [address] Justin Mackey MD [address] [place] [address] 09/10/2025 9:30 AM EST - 09/10/2025 10:30 AM ESTSurgery [facility] - Surgery [address] [facility] [address] Justin Mackey MD [address] [place] [address] INSERTION PORT A CATH [[id number] (CPT??)]09/18/2025 8:30 AM ESTTelemedicine [facility] Gynecology Oncology, A Department of [address] [place] [address] Annita Patton, MUFFLE WORKER-SENIOR SUPPLIER QUALITY ENGINEER [address] [place] [address], [address] [place] [address] 09/19/2025 9:30 AM ESTInfusion [facility] - Medical Oncology [address] [place] [phone] 09/21/2025 8:00 AM ESTInfusion [facility] - Medical Oncology [address] [place] [phone] NamePriorityAssociated DiagnosesDate/TimeINSERTION PORT A CATH needed [...] Additional Health Concerns Active ProblemsNoted DateDiagnosed DateAutogenerated Ubxtifk7908/10/2025ssessment Noted TimePHQ-9 Depression Total Score: 3:45 PM ESTdocumented as of this encounter Care Teams Team MemberRelationshipSpecialtyStart DateEnd Date Bin Sidhu MD [address] [place] [address] PCP - GeneralFamily Yokvjnog54/9/25documented as of this encounter
--- OUTSIDE RECORDS SUMMARY | 2025-08-28 13:31 | XMS_ITS | Clinical Summary ---
Author Organization [facility] Address [address] [place], [place] [address] Care Team Providers Care Boat Painter Name Role Phone Bin Sidhu MD Primary Care Provider Allergies Active AllergyReactionsCriticalityNoted ExcsKogdcghoBqwbkQqbhTjjg75/31/2009 Medications MedicationSigDispense QuantityRefillsLast FilledStart DateEnd DateStatus TETRACYCLINE 500 MG CAP Indications:Knee joint oddo326ctive naproxen(NAPROSYN 500 MG TAB) Indications:Knee joint pain,Knee bursitis1 PPO BID with food 60 ctive Social History Tobacco UseTypesPacks/DayYears UsedDateSmoking Tobacco: Never Assessed CommentsUnknownSex and Gender InformationValueDate RecordedSex Assigned at Not on fileLegal IkfDplisb68/02/2012 8:21 AM ESTGender IdentityNot on fileSexual OrientationNot on file Plan of Treatment Health MaintenanceDue DateLast DoneCommentsAnxiety Xcojwnqmj35/05/1973Depression Izegcmhyp77/05/1973Hepatitis C Xlmjqqebe96/05/1973DTaP,Tdap,Td Vaccine (1 - Tdap)1974Mammogram Ukjsdnwdw11/05/1995CT Fyyfuwojqdon22/05/2000Cologuard (FIT-DNA)03/31/20009902Uyuaecgccbk00/05/2000Colorectal Cancer Frnzaaavm96/05/2000 Diabetes Aselfltdc64/05/2000Fecal Occult Blood2000Lipid Screening 03/31/20003441Skccosjqzhqce20/05/2000Pneumococcal Vaccine: 50+ (1 of 1 - PCV) 2005Shingrix Vaccine (1 of 2)2005Bone Density Ikprpgkvj57/05/2020 Advance Directive Vjqqamkxqo02/01/2025ovid-19 Vaccine ( - 2024-26 season) 2025Influenza Vaccine (#1)2025RSV Vaccine (1 - 1-dose 75+ series) 2030 Insurance Care Teams Team MemberRelationshipSpecialtyStart DateEnd Date Bni Sidhu MD [address] [place] [address] [facility]05/10/09
--- OUTSIDE RECORDS SUMMARY | 2025-08-28 13:31 | XMS_ITS | Encounter Summary ---
Author Organization [facility] tem Address [id number] [address] [place] [address] Care Team Providers Care Merchandise Flow Team Leader Name Role Phone Bin Sidhu MD Primary Care Provider [phone] Encounter Details DateTypeDepartmentCare Team (Latest Contact Info)Wkyagerqvkt94/21/2025Telephone [facility] Surgery [address] [place] [phone] Regina Zarate RMA Social History Tobacco UseTypesPacks/DayYears UsedDateSmoking Tobacco: NeverSmokeless Tobacco: NeverAlcohol UseStandard Drinks/WeekCommentsNever0 (1 standard drink = 0.6 oz pure alcohol)PHQ-2AnswerDate RecordedTotal Vzqfj73910/04/2024UDIT-CAnswerDate RecordedQ1: How often do you have a [...] ValueDate RecordedSex Assigned at BirthNot on fileLegal LkoTixrem68/08/2025 12:05 AM ESTGender IdentityNot on fileSexual OrientationNot on filedocumented as of this encounter Miscellaneous Notes * Telephone Encounter - ULI Blanchard - 08/17/2025 9:02 AM EST 08/17/25 Zara from Gynecology Oncology returned my call. She stated she is going to call [facility] and get the records for the patient. The patient will probably be on antibiotics so I will inform Dr. Mackey when she would like to reschedule the port and if the patient will need to have complete the antibiotics before the port procedure. ULI Blanchard / surgery teacher 08/17/25 9:30 am I called [facility] [place] [phone] and spoke with Arline in oncology - I informed her of the information pertaining to Eunice's case. That Eunice went to the [facility] ER and admitted, she will be admitted for at least 3 days. I also told her I called & left a message for Milagros & Melinda [employer]. Oncology [phone]. to let them know the status of Eunice per the patient's request. Arline said she would also send a message to them, as well ULI Blanchard / surgery teacher 08/17/25 8:15 am I called Eunice on her cell phone - she was admitted to [facility]. She stated she was told she will be there for at least 3 days. Her diagnosis right now is C-diff. I called Verito at [facility] and cancelled Eunice's port which was scheduled for 08/20/[address] Mackey. She also wanted meto call oncology to inform them. I told her I would. ULI Blanchard / surgery teacher 08/17/25 7:39 am This patient had several abnormal labs done in PAT yesterday, one with a critically low potassium of 2.6. She was instructed to go to the ER and stated she was going to [facility]. She was instructed to call your office today, if able, to inquire on proceeding with procedure on 08/20. Lillian Chauhan RN / [facility] PAT documented in this encounter Plan of Treatment DateTypeDepartmentCare Team (Latest Contact Info)Hjilvppeyaq74/04/2025 10:30 AM ESTInfusion [facility] - Medical Oncology [address] [place] [phone] 08/31/2025 8:30 AM ESTInfusion [facility] - Medical Oncology [address] [place] [phone] 09/03/2025 2:15 PM ESTProcedure visit [facility] - Pre Admit [address] [place] [address] 09/10/2025 9:30 AM ESTHospital Encounter [facility] - Surgery [address] [place] [address] Justin Mackey MD [address] [place] [address] 09/10/2025 9:30 AM EST - 09/10/2025 10:30 AM ESTSurgery [facility] - Surgery [address] [place] [address] Justin Mackey MD [address] [place] [address] INSERTION PORT A CATH [[id number] (CPT??)]09/18/2025 8:30 AM ESTTelemedicine [facility] Gynecology Oncology, A Department of [address] [place] [address] Annita Patton, FLUE DUST LABORER-ERECTOR OPERATOR [address] [place] [address], [address] [place] [address] 09/19/2025 9:30 AM ESTInfusion [facility]ola [facility] - Medical Oncology [address] [place] [phone] 09/21/2025 8:00 AM ESTInfusion Paola [facility] - Medical Oncology [address] [place] [phone] NameTypePriorityAssociated DiagnosesOrder ScheduleCBC auto differentialLab Routine Encounter for insertion of venous access port 1 Occurrences starting 08/21/2025 until 08/21/2026omprehensive metabolic panel LabRoutine Encounter for insertion of venous access port 1 Occurrences starting 08/21/2025 until 08/21/2026NamePriorityAssociated DiagnosesDate/TimeINSERTION PORT A CATH needed for chemotherapy [...] Additional Health Concerns Active ProblemsNoted DateDiagnosed DateAutogenerated Efswqhl6008/10/2025ssessment Noted TimePHQ-9 Depression Total Score: 3:45 PM ESTdocumented as of this encounter Care Teams Team MemberRelationshipSpecialtyStart DateEnd Date Bin Sidhu MD [address] [place] [address] PCP - GeneralFamily Tpcrjsyp08/9/25documented as of this encounter
--- OUTSIDE RECORDS SUMMARY | 2025-08-28 13:31 | XMS_ITS | Encounter Summary ---
Author Organization [facility] tem Address [id number] [address] [place] [address] Care Team Providers Care Commercial Fisher Name Role Phone Bin Sidhu MD Primary Care Provider [phone] Reason for Referral * Consultation (Routine) - Pending ReviewSpecialtyDiagnoses / ProceduresReferred By ContactReferred To Contact Diagnoses Endometrial cancer determined by uterine biopsy ([facility] Melinda Coffey PA [address] [place] [address] Phone: tel: fax: Referral IDStatusReasonStart DateExpiration DateVisits RequestedVisits [id number] Review Service Not Available In-House Encounter Details DateTypeDepartmentCare Team (Latest Contact Info)Gozcszjsecb25/18/2025Orders Only [facility] Gynecology Oncology, A Department of [facility] [address] [place] [address] Milagros Machado RN Endometrial cancer determined by uterine biopsy ([facility]) (Primary Dx) Social History Tobacco UseTypesPacks/DayYears UsedDateSmoking Tobacco: NeverSmokeless Tobacco: NeverAlcohol UseStandard Drinks/WeekCommentsNever0 (1 standard drink = 0.6 oz pure alcohol)PHQ-2AnswerDate RecordedTotal Dyqiu65710/04/2024UDIT-CAnswerDate RecordedQ1: How often do you have a [...] ValueDate RecordedSex Assigned at BirthNot on fileLegal HpaHrvujm40/08/2025 12:05 AM ESTGender IdentityNot on fileSexual OrientationNot on filedocumented as of this encounter Progress Notes * Milagros Machado RN - 08/14/2025 12:12 PM EST Palliative care order, face sheet, and progress notes faxed to [facility]. Order for wheelchair, face sheet, and progress note faxed to [facility] in [place]. documented in this encounter Plan of Treatment DateTypeDepartmentCare Team (Latest Contact Info)Uvzjztmyzks75/04/2025 10:30 AM ESTInfusion [facility]ola [facility]ington [facility] - Medical Oncology [address] [place] [phone] 08/31/2025 8:30 AM ESTInfusion [facility]ola Ellington [facility] - Medical Oncology [address] [place] [phone] 09/03/2025 2:15 PM ESTProcedure visit [facility] - Pre Admit [address] [place] [address] 09/10/2025 9:30 AM ESTHospital Encounter [facility] - Surgery [address] [place] [address] Justin Mackey MD [address] [place] [address] 09/10/2025 9:30 AM EST - 09/10/2025 10:30 AM ESTSurgery [facility] - Surgery [address] [place] [address] Justin Mackey MD [address] [place] [address] INSERTION PORT A CATH [[id number] (CPT??)]09/18/2025 8:30 AM ESTTelemedicine [facility] Gynecology Oncology, A Department of [address] [place] [address] Annita Patton, PINION AND WHEEL TRUER-COMMERCIAL LINES INSURANCE AGENT [address] [place] [address], [address] [place] [address] 09/19/2025 9:30 AM ESTInfusion [facility] - Medical Oncology [address] [place] [phone] 09/21/2025 8:00 AM ESTInfusion [facility]ola [facility] - Medical Oncology [address] [place] [address] NamePriorityAssociated DiagnosesDate/TimeINSERTION PORT A CATH needed for chemotherapy 09/10/2025 9:30 AM ESTNameTypePriorityAssociated DiagnosesOrder Schedule Ambulatory referral to Palliative Medicine Home Visits (Non-[facility])Outpatient ReferralRoutine Endometrial cancer determined by uterine biopsy ([facility] 1 Occurrences starting 08/14/2025 until 08/14/2026documented as of this encounter Goals GoalPatient Goal TypeAssociated ProblemsRecent ProgressPatient-Stated?Author return home Milagros Escobedo RN Note: Evaluation of progress towards goal: patient plans to return home with family support Autogenerated Goal Care PlanAutogenerated ProblemNoPotts, Elizabethdocumented as of this encounter Visit Diagnoses Diagnosis Endometrial cancer determined by uterine biopsy ([facility] Primary documented in this encounter Additional Health Concerns Active ProblemsNoted DateDiagnosed DateAutogenerated Lmmttgv3908/10/2025ssessment Noted TimePHQ-9 Depression Total Score: 3:45 PM ESTdocumented as of this encounter Care Teams Team MemberRelationshipSpecialtyStart DateEnd Date Bin Sidhu MD [address] [place], [place] [address] PCP - GeneralFamily Piyzsxhk42/9/25documented as of this encounter
--- OUTSIDE RECORDS SUMMARY | 2025-08-28 13:31 | XMS_ITS | Encounter Summary ---
Author Organization [facility] tem Address [facility] [id number] [address] [place] [address] Care Team Providers Care High School Foreign Language Teacher Name Role Phone Bin Sidhu MD Primary Care Provider [phone] Encounter Details DateTypeDepartmentCare Team (Latest Contact Info)Tphgmfsquhb28/26/2025Telephone [facility] Gynecology Oncology, A Department of [facility] [address] [address] Desmond Martin RN Social History Tobacco UseTypesPacks/DayYears UsedDateSmoking Tobacco: NeverSmokeless Tobacco: NeverAlcohol UseStandard Drinks/WeekCommentsNever0 (1 standard drink = 0.6 oz pure alcohol)PHQ-2AnswerDate RecordedTotal Oritd74910/04/2024UDIT-CAnswerDate RecordedQ1: How often do you have a [...] ValueDate RecordedSex Assigned at BirthNot on fileLegal ReiIclipo94/08/2025 12:05 AM ESTGender IdentityNot on fileSexual OrientationNot on filedocumented as of this encounter Miscellaneous Notes * Telephone Encounter - Desmond Martin RN - 08/22/2025 10:13 AM EST Maricel Mora from [facility] called the office stating that she will send over ED note, CT scans, Xray, H&P's and discharge summary from patients hospital stay. Fresh Work Wrapper Layer informed Maricel Cain wheelchair order that needs evaluation completed. Maricel Mora could not confirm that an evaluation was done. Fax number provided. documented in this encounter Plan of Treatment DateTypeDepartmentCare Team (Latest Contact Info)Xtevmqbyzbk24/04/2025 10:30 AM ESTInfusion [facility] - Medical Oncology [address] [place] [phone] 08/31/2025 8:30 AM ESTInfusion [facility] - Medical Oncology [address] [place] [phone] 09/03/2025 2:15 PM ESTProcedure visit [facility] - Pre Admit [address] [place] [phone] 09/10/2025 9:30 AM ESTHospital Encounter [facility] Surgery [address] [place] [phone] Justin Mackey MD [address] [place] [address] 09/10/2025 9:30 AM EST - 09/10/2025 10:30 AM ESTSurgery [facility] - Surgery [address] [place] [address] Justin Mackey MD [address] [place] [address] INSERTION PORT A CATH [[id number] (CPT??)]09/18/2025 8:30 AM ESTTelemedicine [facility] Gynecology Oncology, A Department of [address] [place] [address] Annita Patton, OPTICAL MANAGER-BRAN MIXER [address] [place] [address], [address] [place] [address] 09/19/2025 9:30 AM ESTInfusion [facility] - Medical Oncology [address] [place] [phone] 09/21/2025 8:00 AM ESTInfusion [facility] - Medical Oncology [address] [place] [phone] NamePriorityAssociated DiagnosesDate/TimeINSERTION PORT A CATH needed [...] Additional Health Concerns Active ProblemsNoted DateDiagnosed DateAutogenerated Tpylhaf9508/10/2025ssessment Noted TimePHQ-9 Depression Total Score: 3:45 PM ESTdocumented as of this encounter Care Teams Team MemberRelationshipSpecialtyStart DateEnd Date Bin Sidhu MD [address] [place] [address] PCP - GeneralFamily Olkaspvc47/9/25documented as of this encounter
--- OUTSIDE RECORDS SUMMARY | 2025-08-28 13:31 | XMS_ITS | Encounter Summary ---
Author Organization [facility] Address [id number] [address] [place] [address] Care Team Providers Care Mini Bar Attendant Name Role Phone Bin Sidhu MD Primary Care Provider [phone] Encounter Details DateTypeDepartmentCare Team (Latest Contact Info)Girlpzpgkmb69/01/2025Travel Social History Tobacco UseTypesPacks/DayYears UsedDateSmoking Tobacco: NeverSmokeless Tobacco: NeverAlcohol UseStandard Drinks/WeekCommentsNever0 (1 standard drink = 0.6 oz pure alcohol)PHQ-2AnswerDate RecordedTotal Udrfs10410/04/2024UDIT-CAnswerDate RecordedQ1: How often do you have a [...] ValueDate RecordedSex Assigned at BirthNot on fileLegal CwmAnwlya19/08/2025 12:05 AM ESTGender IdentityNot on fileSexual OrientationNot on filedocumented as of this encounter Plan of Treatment DateTypeDepartmentCare Team (Latest Contact Info)Wgvtrglwjvh40/04/2025 10:30 AM ESTInfusion Paola L [facility] - Medical Oncology [address] [place] [phone] 08/31/2025 8:30 AM ESTInfusion Paola L [facility] - Medical Oncology [address] [place] [phone] 09/03/2025 2:15 PM ESTProcedure visit [facility] - Pre Admit [address] [place] [address] 09/10/2025 9:30 AM ESTHospital Encounter [facility] - Surgery [address] [place] [address] Justin Mackey MD [address] [place] [phone] 09/10/2025 9:30 AM EST - 09/10/2025 10:30 AM ESTSurgery [facility] - Surgery [address] [place] [address] Justin Mackey MD [address] [place] [phone] INSERTION PORT A CATH [[id number] (CPT??)]09/18/2025 8:30 AM ESTTelemedicine [facility], [facility] [address] [place] [phone] Annita Patton, GRAPHIC ILLUSTRATOR-CYLINDRICAL MIXER [address] [facility], [address] [place], [place] [phone] 09/19/2025 9:30 AM ESTInfusion Paola L [facility] - Medical Oncology [address] [place] [phone] 09/21/2025 8:00 AM ESTInfusion Paola Wilson [facility] - Medical Oncology [address] [place] [phone] NamePriorityAssociated DiagnosesDate/TimeINSERTION PORT A CATH needed [...] Additional Health Concerns Active ProblemsNoted DateDiagnosed DateAutogenerated Gomnhxf0308/10/2025ssessment Noted TimePHQ-9 Depression Total Score: 3:45 PM ESTdocumented as of this encounter Care Teams Team MemberRelationshipSpecialtyStart DateEnd Date Bin Sidhu MD [address] [place] [id number] PCP - GeneralFamily Lhevjrij32/9/25documented as of this encounter
--- OUTSIDE RECORDS SUMMARY | 2025-08-28 13:31 | XMS_ITS | Clinical Summary ---
Author Organization [email or web address] [facility] tem Address [id number] [address] [place] [address] Care Team Providers Care Newspaper Peddler Name Role Phone Bin Sidhu MD Primary Care Provider Allergies Active AllergyReactionsCriticalityNoted WnesBilhbgnvFneEtcmldnrsqCji80/08/2025 LatexHives,Facial ZwfqftteTibish73/08/2025 Medications MedicationSigDispense QuantityRefillsLast FilledStart DateEnd DateStatus dorzolamide [...] tablet Indications:Endometrial cancer determined by uterine biopsy ([facility])Take 2 tablets (8 mg) by mouth once daily on days 2, 3 and 4. 60 tablet 5Active ondansetron (ZOFRAN) 8 mg tablet Indications:Endometrial cancer determined by uterine biopsy ([facility])Starting on day 3, take 1 tablet by mouth twice daily as needed for nausea or vomiting. 60 tablet 5Active prochlorperazine (COMPAZINE) 10 mg tablet Indications:Endometrial cancer determined by uterine biopsy ([facility])Take 1 tablet by mouth every 6 hours as needed for nausea or vomiting on days 1 and 2. 60 tablet 5Active ondansetron ODT (ZOFRAN ODT) 4 mg disintegrating tablet Indications:Endometrial cancer ([facility])Dissolve 1 tablet (4 mg total) on tongue [...] cream Indications:Endometrial cancer determined by uterine biopsy ([facility]), Port-A-Cath in placeApply 1 Application topically as needed for pain (Port Access) for up to 12 days. Apply 2.5 grams to port site one hour prior to access prn. Cover with occlusive dressing as directed. 30 g /Expired oxyCODONE (ROXICODONE) 5 mg immediate release tablet Indications:Pelvic mass,Endometrial cancer ([facility])Take 1 tablet (5 mg total) by mouth every 6 (six) hours as needed for pain for up to 4 days. Max Daily Amount: 20 mg 15 tablet Expired Active Problems ProblemNoted DateDiagnosed DateEndometrial cancer determined by uterine biopsy 08/08/2025 Cancer Staging: Pathologic stage from 08/07/2025:FIGO Stage IIIB2, calculated as Stage Unknown (pT3b, pNX) - Unsigned Resolved Problems ProblemNoted DateDiagnosed DateResolved DateVaginal legfujvz96 Pelvic massVagina evhtohwi39 Encounters DateTypeDepartmentCare YryoSwegyqdzkjd31/02/2025Telephone [facility] Physicians General Surgery [address] [place] [phone] Regina Zarate RMA 08/27/2025 3:30 PM ESTTelemedicine [facility] Gy[facility] Oncology, A Department of [place] [address] [address] Annita Patton, TAX SPECIALIST-LATHE SPOTTER Endometrial cancer determined by uterine biopsy ([facility]) (Primary Dx); Encounter for chemotherapy vluejtwdzi54/01/8818Kdwnei80/26/2025Telephone [facility] Gynecology Oncology, A Department of [place] [address] [place] [address] Desmond Martin RN 08/21/2025Tumor Conference [facility] Gynecology Oncology, A Department of [address] [place] [address] Annita Patton, TAX SPECIALIST-LATHE SPOTTER 08/20/2025Hospital Encounter [facility] - Surgery [address] [place] [phone] Justin Mackey MD 08/17/2025Telephone [facility] Gynecology Oncology, A Department of [address] [facility] [place] [address] Milagros Machado RN 08/17/2025Telephone [facility] Physicians General Surgery [address] [place] [phone] Regina Zarate [facility] 08/16/2025 3:00 PM ESTProcedure visit [facility] - Pre Admit [address] [place] [phone] Preop examination (Primary Dx); Anemia, unspecified type08/16/20251023Ajjfab06/19/2025Telephone [facility] Gynecology Oncology, A Department of [address] [facility] [place] [address] Milagros Machado RN 08/14/2025Telephone [facility] Gynecology Oncology, A Department of [address] [place] [address] Christi Tsang CMA 08/14/2025Orders Only [facility] Gy[facility] Oncology, A Department of [place] [address] [facility] [place] [address] Milagros Machado, JORDYN Endometrial cancer determined by uterine biopsy ([facility]) (Primary Dx)08/14/2025 Orders Only Paola Wilson Carter [facility] - Medical Oncology [address] [place] [phone] Melinda Coffey PA Post-operative nausea and vomiting (Primary Dx); Pelvic mass; Endometrial cancer ([facility])08/13/2025Telephone [facility] Gynecology Oncology, A Department of [facility] [address] [place] [phone] Milagros Machado RN 08/10/2025Orders Only [facility] Gynecology Oncology, A Department of [facility] [address] [place] [address] Desmond Martin RN 08/10/2025Telephone [facility] Gynecology Oncology, A Department of [facility] [address] [place] [phone] Milagros Machado RN 08/09/2025Telephone [facility] General Surgery [address] [place] [address] [phone] Regina Zarate Lillie 08/08/2025Orders Only [facility] Gynecology Oncology, A Department of [facility] [address] [place] [address] Milagros Machado, JORDYN Endometrial cancer determined by uterine biopsy ([facility]) (Primary Dx)08/07/2025 1:30 PM ESTAnesthesia Event [facility] [address] [place] [phone] Mahendra Rico MD Roberts, Alyssa, SRNA 08/07/2025 12:30 PM EST - 08/07/2025 3:00 PM ESTSurgery [facility] [address] [place] [phone] Dennis Monson MD DAVINCI HYSTERECTOMY SALPINGO OOPHORECTOMY/RADICAL INTRAPERITONEAL TUMOR JRUOOSXDL92/11/3840Hgynrw52/10/2025Telephone [facility] Gynecology Oncology, A Department of [facility] [address] [place] [phone] Rocio Alexander MD Vpqoktdho90/09/2025Orders Only [facility] [employer] [facility] [place] [address] Transcribe, Orders Support User Pain (Primary Dx)08/04/2025 9:37 AM ESTAnesthesia Event [facility] - Surgery [address] [place] [address]. [place] [phone] Franklin Ramos MD Rayle, Marissa, APRN-TAKER OFF BRAKER MACHINE 08/04/2025 8:30 AM EST - 08/04/2025 9:40 AM ESTSurgery [facility] - Surgery [address] [place] [phone] Rocio Alexander MD DILATION CURETTAGE [[id number] (CPT??)]08/04/2025 3:32 AM EST - 08/09/2025 5:49 PM ESTHospital Encounter [facility] - GEN [address] [place] [phone] Rocio Alexander MD Endometrial cancer determined by uterine biopsy ([facility]) (Primary Dx); Pelvic mass; Limited mobility; Nausea Discharge Disposition: Home08/04/20257085Jbnkwl54/06/2025 7:10 PM ESTAncillary Procedure [facility] [employer] [facility] [place] [address] Pain08/02/2025 6:05 PM ESTAncillary Procedure [facility] [employer] [facility] [place] [address] Painfrom Last 3 Months Immunizations No known immunizations Family History Medical HistoryRelationNameCommentsCancerFatherCancerMotherRelationNameStatus CommentsFatherDeceasedMotherDeceased Social History Tobacco UseTypesPacks/DayYears UsedDateSmoking Tobacco: NeverSmokeless Tobacco: Never Tobacco Cessation:Counseling Given: Not Answered Alcohol UseStandard Drinks/WeekCommentsNever0 (1 standard drink = 0.6 oz pure alcohol)PHQ-2AnswerDate RecordedTotal Iryvl05210/04/2024UDIT-CAnswerDate Recorded Q1: How often do you have [...] RecordedIn the past 12 months has the [employer], gas, oil, or water [employer] threatened to shut off services in your [...] InformationValueDate RecordedSex Assigned at BirthNot on fileLegal LkhQgvrsk54/08/2025 12:05 AM ESTGender IdentityNot on fileSexual OrientationNot on file Last Filed Vital Signs Vital SignReadingTime TakenCommentsBlood Ggionmjl077/7208/09/2025 7:49 AM EST Uyvbn631508/09/2025 7:49 AM XRDTdmkdnahzwi05.4 ??C (99.4 ??F)08/09/2025 7:49 AM ESTRespiratory Oalq712310/09/2024 7:49 AM ESTOxygen Prxindnuka78%08/09/2025 7:49 AM ESTInhaled Oxygen Concentration--Ozzgke32.3 kg (155 lb)08/16/2025 3:27 PM EST Qtditp572.5 cm (5' 2 )08/16/2025 3:27 PM ESTBody Mass Index28.35110/16/2024 3:27 PM EST Plan of Treatment DateTypeDepartmentCare Team (Latest Contact Info)Qhksmthiwcp23/04/2025 10:30 AM ESTInfusion [facility] - Medical Oncology [address] [place] [phone] 08/31/2025 8:30 AM ESTInfusion Paola Wilson [facility] - Medical Oncology [address] [place] [phone] 09/03/2025 2:15 PM ESTProcedure visit [facility] - Pre Admit [address] [place] [address] 09/10/2025 9:30 AM ESTHospital Encounter [facility] - Surgery [address] [place] [address] Justin Mackey MD [address] [facility] [place] [phone] 09/10/2025 9:30 AM EST - 09/10/2025 10:30 AM ESTSurgery [facility] - Surgery [address] [place] [address] Justin Mackey MD [address] [place] [address] INSERTION PORT A CATH [[id number] (CPT??)]09/18/2025 8:30 AM ESTTelemedicine [facility] Gynecology Oncology, A Department of [place] [phone] [facility] [address] [address] [place] [phone] Annita Patton, TAX SPECIALIST-LATHE SPOTTER [address] [facility] [place] [address] 09/19/2025 9:30 AM ESTInfusion Paola Wilson [facility] - Medical Oncology [facility] [place] [address] 09/21/2025 8:00 AM ESTInfusion Paola Wilson Carter [facility] - Medical Oncology [address] [place] [phone] NamePriorityAssociated DiagnosesDate/TimeINSERTION PORT A CATH needed for chemotherapy 09/10/2025 9:30 AM ESTHealth MaintenanceDue DateLast DoneCommentsAdult BMI Follow Up Plan1973DTaP,Tdap and Td Vaccines (1 - Tdap)1974Zoster (Shingles) Vaccine (1 of 2)1974RSV ( or age 60+ yrs) (1 - Risk 60- 74 years 1-dose series)2015Fall Risk Obogbbhov55/05/2020Influenza Vaccine 05/28/2025Depression Nyfgiunbp62dult BMI Eddyllkyk75/20/2026 08/16/2025Tobacco Audegulzl49 Goals GoalPatient Goal TypeAssociated ProblemsRecent ProgressPatient-Stated?Author return home Milagros Escobedo RN Note: Evaluation of progress towards goal: patient plans to return home with family support Autogenerated Goal Care PlanAutogenerated ProblemNoPotts, Sonya Autogenerated Goal Care PlanAutogenerated ProblemNoPotts, Sonya Medical Devices Not on file Procedures Procedure NamePriorityDate/TimeAssociated DiagnosisCommentsBASIC METABOLIC PANEL Pzoxlde6608/16/2025 3:52 PM EST Preop examination CBC WITH AUTO UENICDOEEYHIDlsnfev08/20/2025 3:52 PM EST Preop examination Anemia, unspecified type CROSSMATCH ZJOZzjocga39/15/2025 12:37 AM EST CBC WITH AUTO KVMHUHLEYIBVDvstcrg55/13/2025 5:32 AM EST COMPREHENSIVE METABOLIC RYHJFCtvhxcd74/13/2025 5:32 AM EST CBC WITH AUTO EQCCVXAKLQPCJpsfjym67/12/2025 5:58 AM EST TYPE AND SBXJYMEbggzgx45/12/2025 5:57 AM EST COMPREHENSIVE METABOLIC GTENNRrkngfs79/12/2025 5:57 AM EST SURGICAL TGDKGVIYMGhpjucg63/11/2025 3:42 PM EST NON-GYNECOLOGIC SPQAONMBPcqfnkh56/11/2025 2:44 PM EST TRANSFUSE RED BLOOD BWWTUGvntswv73/11/2025 2:23 PM ESTPR AN ELECTIVE ENDOTRACHEAL GAXCOTKchaswe48/11/2025 1:44 PM EST FLEXIBLE QGJFILNZARUIS74/11/2025 1:30 PM EST ENDOMETRIAL CANCER Case Notes [facility] EPIC 2W MOVE UP TO 1130 Special Needs MOVE UP TO 1130 DAVINCI HYSTERECTOMY SALPINGO VLSQEXENWNAD47/11/2025 1:30 PM EST ENDOMETRIAL CANCER Case Notes [facility] 2W MOVE UP TO 1130 Special Needs MOVE UP TO 1130 COMPREHENSIVE METABOLIC PIMLFMbgluey64/11/2025 5:40 AM EST CBC WITH AUTO FQFMYACMOBBUTlnmlrs93/11/2025 5:40 AM EST CROSSMATCH DDHPzrefzb78/10/2025 6:37 AM ESTCOMPREHENSIVE METABOLIC PANELRoutine 08/06/2025 6:23 AM EST CBC WITH AUTO VLIZHSCQYANRQxprezj69/10/2025 6:23 AM EST COMPREHENSIVE METABOLIC NJUTGQrutszi06/09/2025 8:[address] CHEST W BHRKBlkmsgx15/09/2025 12:11 PM EST CBC WITH AUTO STXNYASTOVCCIwdvgrp34/09/2025 4:02 AM EST COMPREHENSIVE METABOLIC AZUAXFjguzeu27/09/2025 4:02 AM EST CBC WITH AUTO SDTCFCBEVMZUAnkahvz04/08/2025 12:18 PM EST TRANSFUSE RED BLOOD BWJLYKebzyim94/08/2025 10:00 AM ESTPR AN ELECTIVE ENDOTRACHEAL VWZNODLepdyju21/08/2025 9:48 AM EST TN HYSTEROSCOPY,W/ENDO BX08/04/2025 9:37 AM EST vaginal bleed TRANSFUSE RED BLOOD EOKVEDxiudjq35/08/2025 8:39 AM ESTREPEATED ABORHRoutine 08/04/2025 8:27 AM ESTREPEATED KIFZGNxowhfr84/08/2025 7:41 AM EST CROSSMATCH PVQLeztfuv27/08/2025 5:30 AM EST TYPE AND VWGDYOBufzoqe81/08/2025 5:30 AM EST PCUODVHMTUCostuhs74/08/2025 5:30 AM EST TFEHSvxsncm07/08/2025 5:30 AM EST PROTIME & HXNHtfxfzw93/08/2025 5:30 AM EST CBC WITH AUTO WROZMCTVVHXSJhgkmyi53/08/2025 5:30 AM EST COMPREHENSIVE METABOLIC HSRYNVeefxyk65/08/2025 5:30 AM EST PULSE OXIMETRY, ODBNVsawbmn11/08/2025 3:38 AM ESTCT ABDOMEN AND PELVIS W CONT Bufyadl1508/02/2025 7:10 PM EST Pain US DUPLEX ABD PELVIS KJPLStzximc97/06/2025 6:05 PM EST Pain from Last 3 Months Results * (ABNORMAL) CBC auto differential (08/16/2025 3:52 PM EST) Only the most recent of8 resultswithin the time period is included. ComponentValueRef RangeTest MethodAnalysis TimePerformed AtPathologist Signature WBC30.6(H)4 - 11 10^9/L110/16/2024 4:45 PM [facility] RBC Count4.063.8 - 5.2 10^12/L110/16/2024 4:45 PM [facility]ITALHemoglobin11.4(L)11.7 - 15.5 g/dL08/16/2025 4:45 PM ESTW[facility]OSPITALHematocrit34.4(L)35 - 47 %08/16/2025 4:45 PM ESTWY[facility]OSPITALMCV8580 - 100 fL08/16/2025 4:45 PM ESTWY[facility]OSPITALMCH28.027 - 34 pg08/16/2025 4:45 PM ESTW[facility]PITALMCHC33.032 - 36 g/dL08/16/2025 4:45 PM ESTWY[facility]OSPITALRDW16.6(H)11.5 - 15 %08/16/2025 4:45 PM ESTWY[facility]OT [facility]OSPITALPlatelet Wkxdn444(H)150 - 450 10^9/L110/16/2024 4:45 PM EST [facility]ITALMPV8.07 - 12 fL08/16/2025 4:45 PM EST [facility]ITALBands %8%08/16/2025 4:45 PM ESTWY[facility]OT [facility]OSPITALComment:This is an appended report. These results have been appended to a previously preliminary verified report.Neutrophils %81% 08/16/2025 4:45 PM ESTW[facility]PITALComment:This is an appended report. These results have been appended to a previously preliminary verified report.Lymphocytes %4%08/16/2025 4:45 PM [facility]:This is an appended report. These results have been appended to a previously preliminary verified report.Monocytes %7%08/16/2025 4:45 PM [facility]This is an appended report. These results have been appended to a previously preliminary verified report. Neutrophils Absolute (M)27.3(H)1.5 - 6.6 10^9/L110/16/2024 4:45 PM [facility]This is an appended report. These results have been appended to a previously preliminary verified report.Lymphocytes Absolute 1.21.0 - 3.5 10^9/L110/16/2024 4:45 PM [facility] Comment:This is an appended report. These results have been appended to a previously preliminary verified report.Monocytes Absolute2.1(H)0.0 - 0.9 10^9/L 08/16/2025 4:45 PM [facility]This is an appended report. These results have been appended to a previously preliminary verified report.Polychromasia1+08/16/2025 4:45 PM [facility]:This is an appended report. These results have been appended to a previously preliminary verified report.Elliptocytes1+08/16/2025 4:45 PM EST [facility]Comment:This is an appended report. These results have been appended to a previously preliminary verified report. Stomatocytes1+08/16/2025 4:45 PM [facility]: This is an appended report. These results have been appended to a previously preliminary verified report.Differential TypeMANUAL XPQHTXIITLXZ14/20/2025 4:45 PM [facility]:This is an appended report. These results have been appended to a previously preliminary verified report. Specimen (Source)Anatomical Location / LateralityCollection Method / Volume Collection TimeReceived TimeBloodVenous blood / UnknownVenipuncture / Unknown 08/16/2025 3:52 PM EST08/16/2025 3:52 PM EST Narrative Authorizing ProviderResult TypeResult StatusDaviquiana Angulo MDLAB BLOOD ORDERABLESFinal ResultPerforming OrganizationAddressCity/State/ZIP CodePhone Number [facility] [address] [place] [address], * (ABNORMAL) Basic Metabolic Panel (08/16/2025 3:52 PM EST)ComponentValueRef RangeTest MethodAnalysis TimePerformed AtPathologist CuvckknziHVOAJM571188 - 146 mmol/L110/16/2024 4:17 PM ESTWYANDOT MEMORIAL HOSPITALPOTASSIUM 2.6(LL)3.5 - 5.0 mmol/L110/16/2024 4:17 PM ESTWYANDOT MEMORIAL HOSPITALCHLORIDE10398 - 109 mmol/L110/16/2024 4:17 PM ESTWYANDOT MEMORIAL HOSPITALCARBON WATDEBX0835 - 32 mmol/L110/16/2024 4:17 PM ESTWYANDOT MEMORIAL HOSPITALANION QIU669 - 15 mmol/L110/16/2024 4:17 PM EST [facility]ITALBLOOD UREA FQDTOGQM622 - 27 mg/dL08/16/2025 4:17 PM [facility]ITALCREATININE0.700.40 - 1.00 mg/dL 08/16/2025 4:17 PM [facility]ITALComment:METHOD TRACEABLE TO IDMS GOLLDCHNMTODGHK364(H)65 - 99 mg/dL08/16/2025 4:17 PM EST [facility]ITALCALCIUM8.58.5 - 10.5 mg/dL08/16/2025 4:17 PM ESTWYANDOT MEMORIAL HOSPITALEGFR Non-Race Dependent>90>=60 ml/min/1.73sq.m110/16/2024 4:17 PM [facility] Comment: Reported eGFR is based on the CKD-EPI 2020 equation that does not use a race coefficient. Specimen (Source)Anatomical Location / LateralityCollection Method / Volume Collection TimeReceived TimeBloodVenous blood / UnknownVenipuncture / Unknown 08/16/2025 3:52 PM EST08/16/2025 3:52 PM EST Narrative Authorizing ProviderResult TypeResult StatusPeter Angulo MDLAB BLOOD ORDERABLESFinal ResultPerforming OrganizationAddressCity/State/ZIP CodePhone Number [facility] [address] [place] [address], * Crossmatch RBC:Number of Units: 2 (08/11/2025 12:37 AM EST) Only the most recent of3 resultswithin the time period is included. ComponentValueRef RangeTest MethodAnalysis TimePerformed AtPathologist Signature Blood component [id number] BANK - WELLSKYUnit [id number] BANK - WELLSKYUnit ABOOBLOOD BANK - WELLSKYUnit RHPOSBLOOD BANK - [place] CrossmatchCompatibleBLOOD BANK - WELLSKYStatus of unitTRANSFUSEDBLOOD BANK - WELLSKYExpiration [id number] BANK - WELLSKYBB Type Pbmatmz2602ZQSSM BANK - WELLSKYSpecimen (Source)Anatomical Location / LateralityCollection Method / VolumeCollection TimeReceived TimeBloodVenous blood / Soyjzpe8508/11/2025 12:37 AM EST08/04/2025 5:47 AM EST Narrative Authorizing ProviderResult TypeResult StatusAnnita Still MDBLOOD BANK PRODUCT ORDERABLESEdited Result - FinalPerforming OrganizationAddressCity/State/ZIP Code Phone Number [facility] - [place] * (ABNORMAL) Comprehensive metabolic panel (08/09/2025 5:32 AM EST) Only the most recent of7 resultswithin the time period is included. ComponentValueRef RangeTest MethodAnalysis TimePerformed AtPathologist Signature MZTOHC110701 - 146 mmol/L110/09/2024 6:26 AM [facility] LABORATORYPOTASSIUM3.3(L)3.5 - 5.0 mmol/L110/09/2024 6:26 AM [facility] XJRBWIKMURNXGPGJBM74517 - 109 mmol/L110/09/2024 6:26 AM [facility] LABORATORYCARBON IFYEGNV5646 - 32 mmol/L110/09/2024 6:26 AM [facility] LABORATORYANION VDV343 - 15 mmol/L110/09/2024 6:26 AM [facility] LABORATORYBLOOD UREA LCMABHXL931 - 27 mg/dL08/09/2025 6:26 AM [facility] LABORATORYCREATININE0.650.40 - 1.00 mg/dL08/09/2025 6:26 AM [facility] LABORATORYComment:METHOD TRACEABLE TO IDNE QIDIUVJVEBVXTXC3239 - 99 mg/dL08/09/2025 6:26 AM [facility] LABORATORYCALCIUM8.1(L)8.5 - 10.5 mg/dL08/09/2025 6:26 AM [facility] LABORATORYTOTAL PROTEIN5.4(L)6.0 - 8.0 g/dL08/09/2025 6:26 AM [facility] LABORATORYALBUMIN3.0(L)3.2 - 5.3 g/dL08/09/2025 6:26 AM [facility] LABORATORYALKALINE AWRWCINJPRA5051 - 130 U/L110/09/2024 6:26 AM [facility] EHZXSLZWVKVAK82<=41 U/L110/09/2024 6:26 AM [facility] LABORATORYALT6<=31 U/L110/09/2024 6:26 AM [facility] LABORATORYBILIRUBIN,TOTAL0.50.3 - 1.2 mg/dL08/09/2025 6:26 AM [facility] LABORATORYEGFR Non-Race Dependent>90>=60 ml/min/1.73sq.m110/09/2024 6:26 AM [facility] LABORATORYComment: Reported eGFR is based on the CKD-EPI 2020 equation that does not use a race coefficient. Specimen (Source)Anatomical Location / LateralityCollection Method / Volume Collection TimeReceived TimeBloodVenous blood / UnknownVenipuncture / Unknown 08/09/2025 5:32 AM EST08/09/2025 5:54 AM EST Narrative Authorizing ProviderResult TypeResult StatusHala El Ouweini MDLAB BLOOD ORDERABLESFinal ResultPerforming OrganizationAddressCity/State/ZIP CodePhone Number [facility] [address] [place] [address], * Type and screen(includes indirect grady) (08/08/2025 5:57 AM EST) Only the most recent of2 resultswithin the time period is included. ComponentValueRef RangeTest MethodAnalysis TimePerformed AtPathologist Signature ABOO110/08/2024 7:52 AM ESTTTH BB - VZGRUVVDJManvedtm50/12/2025 7:52 AM ESTTTH BB - WELLSKYAntibody NxleitXmnfzjmp67/12/2025 7:52 AM ESTTTH BB - WELLSKYSpecimen (Source)Anatomical Location / LateralityCollection Method / VolumeCollection TimeReceived TimeBloodVenous blood / UnknownVenipuncture / Bwfkdrd2708/08/2025 5:57 AM EST08/08/2025 6:54 AM EST Narrative Authorizing ProviderResult TypeResult StatusRocio Alexander MDBLOOD BANK TEST ORDERABLESEdited Result - FinalPerforming OrganizationAddressCity/State/ZIP Code Phone Number [facility] BB - JOEL [address] [place] [address], * Surgical Pathology (08/07/2025 3:42 PM EST)ComponentValueRef RangeTest Method Analysis TimePerformed AtPathologist SignatureCase ReportSurgical Pathology Report ? Case: [id number] ? Authorizing Provider: ??Dennis Monson MD ?Collected: ? 08/07/2025 1542 ? [facility] ??Received: ?08/07/2025 1647 ? - Surgery ? Pathologist: ? Darryl Alcantara MD ? Specimens: ?? 1) - Uterus, Fallopian Tube, Ovary, UTERUS, CERVIX, BILATERAL TUBES AND OVARIES ? 2) - Pelvis, LEFT POSTERIOR PELVIS BIOPSY ? 08/14/2025 2:47 PM [facility] LABORATORYFinal Diagnosis1. Uterus, fallopian tubes [...] posterior pelvis, biopsy: Metastatic carcinoma.08/14/2025 2:47 PM [facility] at 1447 ESTGlobal MailExpressoss Description1. Received in formalin labeled ANDERSON, uterus, [...] 1 minute Total fixation time: 27 hours (18,ns,[id number], m8.1) . 2. Received in formalin labeled ANDERSON, left posterior pelvis biopsy is pink-lambert feathery and friable soft tissue admixed with hemorrhagic material, 2.5 x 2.5 x 1.2 cm in aggregate. The specimen is submitted entirely in cassettes A- C. (3,ns,[id number], m8.1) 08/14/2025 2:47 PM [facility] LABORATORYSynoptic ChecklistENDOMETRIUM ENDOMETRIUM - All [...] (no nodes submitted or found)08/14/2025 2:47 PM [facility] LABORATORYEmbedded Ohqqor9008/14/2025 2:47 PM [facility] [facility] LAB[facility]YSpecimen (Source)Anatomical Location / LateralityCollection Method / VolumeCollection TimeReceived TimeTissue (Uterus, Fallopian Tube, Ovary)08/07/2025 3:42 PM EST08/07/2025 4:47 PM ESTComment:Pre-op diagnosis: ENDOMETRIAL CANCERTissue specimen (specimen)Pelvic region / Vcvoncr8108/07/2025 3:43 PM EST08/07/2025 4:47 PM ESTComment:Pre-op diagnosis: ENDOMETRIAL CANCER Narrative Authorizing ProviderResult TypeResult StatusAdawild Monson MDPATHOLOGY/CYTOLOGY ORDERABLESFinal ResultPerforming OrganizationAddressCity/State/ZIP CodePhone Number [facility] [address] [place] [address], * Transfuse RBC:1 Unit (08/07/2025 2:56 PM EST) Only the most recent of3 resultswithin the time period is included. Narrative Authorizing ProviderResult TypeResult StatusAleia Monica Alexander MDBLOOD TRANSFUSION ORDERABLESFinal Result * Cytology non-gynecologic (08/07/2025 2:44 PM EST)ComponentValueRef RangeTest MethodAnalysis TimePerformed AtPathologist SignatureCase ReportMedical Cytology Report ? Case: [id number] ? Authorizing Provider: ??Dennis Monson MD ?Collected: ? 08/07/2025 1444 ? Ordering Location: ? [facility] ??Received: ?08/07/2025 1501 ? - Surgery ? Pathologist: ? Darryl Alcantara MD ? Specimen: ?Pelvis, Pelvis fluid ? 08/14/2025 2:58 PM [facility]ORYFinal DiagnosisPelvic fluid: Positive for Carcinoma, rare cells.08/14/2025 2:58 PM [facility] at 1458 ESTGross DescriptionReceived was 20ml of red fluid unfixed, labeled as Anderson, pelvis . CytoLyt added in lab. Specimen placed in formalin at 17:00 and had a total fixation time of 8 hours. 08/14/2025 2:58 PM [facility] LABORATORYEmbedded Images 08/14/2025 2:58 PM [facility] LABORATORYSpecimen (Source) Anatomical Location / LateralityCollection Method / VolumeCollection Time Received TimeFluidPelvic region / Zvqrikw8808/07/2025 2:44 PM EST08/07/2025 3:01 PM ESTComment:Pre-op diagnosis: ENDOMETRIAL CANCER Narrative Authorizing ProviderResult TypeResult StatusAdam Raven Monson MDPATHOLOGY/CYTOLOGY ORDERABLESFinal ResultPerforming OrganizationAddressCity/State/ZIP CodePhone Number [facility] [address] [place] [address], * [place] AN ELECTIVE ENDOTRACHEAL AIRWAY (08/07/2025 1:44 PM EST) Narrative Evelin Jackson SRNA - 08/07/2025 1:44 PM EST EDIN Inman 08/07/2025 2:13 PM Airway Patient location during procedure: OR Urgency: Elective Date/Time: 08/07/2025 1:44 PM Airway not difficult IV In Situ: Peripheral General Information and Staff Service Provider: Mahendra Rico MD TAKER OFF BRAKER MACHINE: Karime Mann APRN-TAKER OFF BRAKER MACHINE Student: EDIN Inman Placed by: ??EDIN Inman [...] 7:20 AM Authorizing ProviderResult TypeResult StatusAlexandria Lasalla [facility] ORDERABLESFinal Result * [place] AN ELECTIVE ENDOTRACHEAL AIRWAY (08/04/2025 9:48 AM EST) Leonor Cornell APRN-CRNA - 08/04/2025 9:48 AM EST BELLE Ferguson 08/04/2025 10:02 AM Airway Patient location during procedure: OR Urgency: Elective Date/Time: 08/04/2025 9:48 AM Airway not difficult IV In Situ: Peripheral General Information and Staff Service Provider: Franklin Ramos MD TAKER OFF BRAKER MACHINE: BELLE Ferguson Placed by: ??BELLE Ferguson Patient [...] ProviderResult TypeResult Cherelle Ramos MDANESTHESIA ORDERABLESFinal Result * ABO Rh [...] AM EST)ComponentValueRef RangeTest Method Analysis TimePerformed AtPathologist FiupjkgxyKOUT14(L)26 - 37 sec08/04/2025 6:07 AM [facility]ATORYSpec[facility] (Source)Anatomical Location / LateralityCollection Method / VolumeCollection TimeReceived Time BloodVenous blood / UnknownVenipuncture / Vvyfuyd9108/04/2025 5:30 AM EST 08/04/2025 5:42 AM EST Narrative Authorizing ProviderResult TypeResult Ekta PASCUAL BLOOD ORDERABLESFinal ResultPerforming OrganizationAddressCity/State/ZIP CodePhone Number [facility] [address] [place] [address], [place] [phone] * Protime & INR (08/04/2025 5:30 AM EST)ComponentValueRef RangeTest Method Analysis TimePerformed AtPathologist ThdxbkzonMWZBNBP84.89.8 - 13.2 sec 08/04/2025 6:07 AM [facility] LABORATORYINR1.00.9 - 1.2 08/04/2025 6:07 AM [facility] LABORATORYSpecimen (Source) Anatomical Location / LateralityCollection Method / VolumeCollection Time Received TimeBloodVenous blood / UnknownVenipuncture / Iotiydp1708/04/2025 5:30 AM EST08/04/2025 5:42 AM EST Narrative Authorizing ProviderResult TypeResult StatusKassidy Cheko HERNÁNDEZLAB BLOOD ORDERABLESFinal ResultPerforming OrganizationAddressCity/State/ZIP CodePhone Number [facility] [address] [place] [address], [place] [phone] * Fibrinogen (08/04/2025 5:30 AM EST)ComponentValueRef RangeTest MethodAnalysis TimePerformed AtPathologist DdwvpcgfdRPFSJCPGEB245156 - 480 mg/dL08/04/2025 6:07 AM [facility]YSpecimen (Source)Anatomical Location / LateralityCollection Method / VolumeCollection TimeReceived Time BloodVenous blood / UnknownVenipuncture / Zrgkjyu3108/04/2025 5:30 AM EST 08/04/2025 5:42 AM EST Narrative Authorizing ProviderResult TypeResult StatusKassidy Cheko HERNÁNDEZLAB BLOOD ORDERABLESFinal ResultPerforming OrganizationAddressCity/State/ZIP CodePhone Number [facility] [address] [place] [address], [place] [phone] * CT abdomen and pelvis with contrast [...] Additional Health Concerns Active ProblemsNoted DateDiagnosed DateAutogenerated Eofdiun9608/10/2025 Autogenerated Bnozpip6808/28/2025 Insurance Advance Directives * Full Code (Latest Code Status on File) Date ActivatedDate TpbbpsjqlwgKkqkveng40/8/2025 3:38 AM08/09/2025 7:55 PM Care Teams Team MemberRelationshipSpecialtyStart DateEnd Date Bin Sidhu MD [address] [place] [address] PCP - GeneralFamily Ylsjsuxt10/9/25
--- OUTSIDE RECORDS SUMMARY | 2025-08-28 13:31 | XMS_ITS | Encounter Summary ---
Author Organization [employer] [facility] tem Address [facility]-[id number] [address] [place] [address] Care Team Providers Care Urologist Name Role Phone Bin Sidhu MD Primary Care Provider [phone] Encounter Details DateTypeDepartmentCare Team (Latest Contact Info)Ycyrifjbsfa21/18/2025Orders Only Paola Wilson [facility] - Medical Oncology [address] [place] [address] Melinda Coffey PA [address] [place] [address] Post-operative nausea and vomiting (Primary Dx); Pelvic mass; Endometrial cancer ([facility]) Social History Tobacco UseTypesPacks/DayYears UsedDateSmoking Tobacco: NeverSmokeless Tobacco: NeverAlcohol UseStandard Drinks/WeekCommentsNever0 (1 standard drink = 0.6 oz pure alcohol)PHQ-2AnswerDate RecordedTotal Qepjq15710/04/2024UDIT-CAnswerDate RecordedQ1: How often do you have a [...] ValueDate RecordedSex Assigned at BirthNot on fileLegal HytTtfbjf80/08/2025 12:05 AM ESTGender IdentityNot on fileSexual OrientationNot on filedocumented as of this encounter Plan of Treatment DateTypeDepartmentCare Team (Latest Contact Info)Ehxexddriyu62/04/2025 10:30 AM ESTInfusion Paola [facility] - Medical Oncology [address] [place] [address] 08/31/2025 8:30 AM ESTInfusion Paola Wilson [facility] - Medical Oncology [address] [place] [address] 09/03/2025 2:15 PM ESTProcedure visit [facility] - Pre Admit [address] [facility] [address] 09/10/2025 9:30 AM ESTHospital Encounter [facility] - Surgery [address] [place] [address] Justin Mackey MD [address] [place] [address] 09/10/2025 9:30 AM EST - 09/10/2025 10:30 AM ESTSurgery [facility] - Surgery [address] [place] [address] Justin Mackey MD [address] [place] [address] INSERTION PORT A CATH [[id number] (CPT??)]09/18/2025 8:30 AM ESTTelemedicine [facility] Gy[facility]cology, A Department of [address] [place] [address] Annita Patton, INVESTOR RELATIONS SPECIALIST-INVENTORY SPECIALIST [address] [facility], [address] [place] [address] 09/19/2025 9:30 AM ESTInfusion Paola Wilson [facility] - Medical Oncology [address] [place] [address] 09/21/2025 8:00 AM ESTInfusion Paola Wilson [facility] - Medical Oncology [address] [place] [address] NamePriorityAssociated DiagnosesDate/TimeINSERTION PORT A CATH needed [...] mass or lump, unspecified site Endometrial cancer ([facility]) Malignant neoplasm of corpus uteri, except isthmus documented in this encounter Additional Health Concerns Active ProblemsNoted DateDiagnosed DateAutogenerated Bouheyq4408/10/2025ssessment Noted TimePHQ-9 Depression Total Score: 3:45 PM ESTdocumented as of this encounter Care Teams Team MemberRelationshipSpecialtyStart DateEnd Date Bin Sidhu MD [address] [place] [address] PCP - GeneralFamily Itzrnxeg41/9/25documented as of this encounter
--- OUTSIDE RECORDS SUMMARY | 2025-08-28 13:31 | XMS_ITS | Encounter Summary ---
Author Organization [employer] tem Address [facility]-[id number] [address] [place] [address] Care Team Providers Care Aircraft Powertrain Repairer Name Role Phone Bin Sidhu MD Primary Care Provider [phone] Encounter Details DateTypeDepartmentCare Team (Latest Contact Info)Lhysykqiyua25/20/2025Travel Social History Tobacco UseTypesPacks/DayYears UsedDateSmoking Tobacco: NeverSmokeless Tobacco: NeverAlcohol UseStandard Drinks/WeekCommentsNever0 (1 standard drink = 0.6 oz pure alcohol)PHQ-2AnswerDate RecordedTotal Cybly21410/04/2024UDIT-CAnswerDate RecordedQ1: How often do you have a [...] ValueDate RecordedSex Assigned at BirthNot on fileLegal SikCzjzby43/08/2025 12:05 AM ESTGender IdentityNot on fileSexual OrientationNot on filedocumented as of this encounter Plan of Treatment DateTypeDepartmentCare Team (Latest Contact Info)Ozridguxnjk42/04/2025 10:30 AM ESTInfusion Paola L [facility] - Medical Oncology [address] [place] [address] 08/31/2025 8:30 AM ESTInfusion Paola L [facility] - Medical Oncology [address] [place] [address] 09/03/2025 2:15 PM ESTProcedure visit [facility] - Pre Admit [address] [place] [address] 09/10/2025 9:30 AM ESTHospital Encounter [facility] - Surgery [address] [place] [address] Justin Mackey MD [address] [place] [address] 09/10/2025 9:30 AM EST - 09/10/2025 10:30 AM ESTSurgery [facility] - Surgery [address] [place] [address] Justin Mackey MD [address] [place] [address] INSERTION PORT A CATH [[id number] (CPT??)]09/18/2025 8:30 AM ESTTelemedicine [facility], [facility] [address] [place] [address] Annita Patton, AIR HAMMER OPERATOR-SCRUBBING MACHINE OPERATOR [address] [facility] [place], [place] [phone] 09/19/2025 9:30 AM ESTInfusion Paola L [facility] - Medical Oncology [address] [place] [address] 09/21/2025 8:00 AM ESTInfusion Paola Wilson [facility] - Medical Oncology [address] [place] [phone] NamePriorityAssociated DiagnosesDate/TimeINSERTION PORT A CATH needed [...] Additional Health Concerns Active ProblemsNoted DateDiagnosed DateAutogenerated Gvnlohk4708/10/2025ssessment Noted TimePHQ-9 Depression Total Score: 3:45 PM ESTdocumented as of this encounter Care Teams Team MemberRelationshipSpecialtyStart DateEnd Date Bin Sidhu MD [address] [place] [address] PCP - GeneralFamily Lkshagpe36/9/25documented as of this encounter
--- OUTSIDE RECORDS SUMMARY | 2025-08-28 13:31 | XMS_ITS | Encounter Summary ---
Author Organization [facility] tem Address [facility]-[id number] [address] [place] [address] Care Team Providers Care Line Construction Superintendent Name Role Phone Bin Sidhu MD Primary Care Provider [phone] Reason for Visit * Auth/CertSpecialtyDiagnoses / ProceduresReferred By ContactReferred To Contact Diagnoses needed for chemotherapy Procedures [facility] TUNNELED CTR VAD W/SUBQ PORT AGE 5 YR/> INSERTION PORT A CATH Justin Mackey MD [address] [place] [address] Phone: tel: fax: Referral IDStatusReasonStart DateExpiration DateVisits RequestedVisits [id number] Encounter Details DateTypeDepartmentCare Team (Latest Contact Info)Xyburmfcdcp21/24/2025Hospital Encounter [facility] - Surgery [address] [place] [address] Justin Mackey MD [address] [place] [address] Social History Tobacco UseTypesPacks/DayYears UsedDateSmoking Tobacco: NeverSmokeless Tobacco: NeverAlcohol UseStandard Drinks/WeekCommentsNever0 (1 standard drink = 0.6 oz pure alcohol)PHQ-2AnswerDate RecordedTotal Mkvul53310/04/2024UDIT-CAnswerDate RecordedQ1: How often do you have a [...] ValueDate RecordedSex Assigned at BirthNot on fileLegal DzfTsseln82/08/2025 12:05 AM ESTGender IdentityNot on fileSexual OrientationNot on filedocumented as of this encounter Miscellaneous Notes * Perioperative Nursing Note - Rita Salgado RN - 08/16/2025 5:07 PM EST Juliana JACKSON calls contract technical writer, explains that patient has several abnormal labs and is recommending ER evaluation. Pets Salesperson has extensive conversation with patient and family about options of care. Patient ultimately agrees to go to [facility] for evaluation. Pets Salesperson recommends patient call physician office tomorrow and MANUEL to ensure procedure will be okay to proceed on Wednesday. Verbalizes understanding, d enies further questions at this time. documented in this encounter Plan of Treatment DateTypeDepartmentCare Team (Latest Contact Info)Kdcyfqpnppo55/04/2025 10:30 AM ESTInfusion Paola [place] [facility] - Medical Oncology [address] [place] [address], [place] [address] 08/31/2025 8:30 AM ESTInfusion Paola Wilson [place] [facility] - Medical Oncology [address] [place] [address], [place] [address] 09/03/2025 2:15 PM ESTProcedure visit [facility] - Pre Admit [address] [facility] [place] [address] 09/10/2025 9:30 AM ESTHospital Encounter [facility] - Surgery [address] [place] [address] Justin Mackey MD [address] [place] [address] 09/10/2025 9:30 AM EST - 09/10/2025 10:30 AM ESTSurgery [facility] - Surgery [address] [place] [address] Justin Mackey MD [address] [place] [address] INSERTION PORT A CATH [[id number] (CPT??)]09/18/2025 8:30 AM ESTTelemedicine [facility] Gynecology Oncology, A Department of [address] [place] [address] Annita Patton, SECONDARY ART TEACHER-CADDY MASTER [address] [place] [address], [address] [place] [address] 09/19/2025 9:30 AM ESTInfusion Paola [place] [facility] - Medical Oncology [address] [place] [address] 09/21/2025 8:00 AM ESTInfusion Paola [place] [facility] - Medical Oncology [address] [place] [address] NamePriorityAssociated DiagnosesDate/TimeINSERTION PORT A CATH needed for [...] Additional Health Concerns Active ProblemsNoted DateDiagnosed DateAutogenerated Bspmxyn9008/10/2025ssessment Noted TimePHQ-9 Depression Total Score: 3:45 PM ESTdocumented as of this encounter Care Teams Team MemberRelationshipSpecialtyStart DateEnd Date Bin Sidhu MD [address] [phone] PCP - GeneralFamily Svrsnvde91/9/25documented as of this encounter
--- OUTSIDE RECORDS SUMMARY | 2025-08-28 13:32 | XMS_ITS | Encounter Summary ---
Author Organization [facility] tem Address [facility]-[id number] [address] [place] [address] Care Team Providers Care Jockey Room Custodian Name Role Phone Bin Sidhu MD Primary Care Provider [phone] Encounter Details DateTypeDepartmentCare Team (Latest Contact Info)Zeknlesbmoj31/02/2025Telephone [facility] [address] [place] [address] Regina Zarate RMA Social History Tobacco UseTypesPacks/DayYears UsedDateSmoking Tobacco: NeverSmokeless Tobacco: NeverAlcohol UseStandard Drinks/WeekCommentsNever0 (1 standard drink = 0.6 oz pure alcohol)PHQ-2AnswerDate RecordedTotal Dxibl52010/04/2024UDIT-CAnswerDate RecordedQ1: How often do you have a [...] ValueDate RecordedSex Assigned at BirthNot on fileLegal UxwClqger91/08/2025 12:05 AM ESTGender IdentityNot on fileSexual OrientationNot on filedocumented as of this encounter Miscellaneous Notes * Telephone Encounter - ULI Blanchard - 08/28/2025 12:00 PM EST Images from the original note were not included. 08/28/25 11:30 am I called Eunice - she had an appt. with PCP on 08/27/25 - she also had a virtual appt. with Lc Moreno with oncology, yesterday 08/27/25. She has bloodwork she does on . and - She has an appt. on Wednesday08/31/25 for blood infusion chemo. She is on 2 antibotics - one of them will be taken for 10 days per patient. She is not ready to schedule the port. I told her I would call her on Wednesday09/07/25 for an update. We could tentatively schedule for 09/10/25. She said ok. ULI Blanchard / metallurgical inspector 08/28/25 8:38 am Good morning! Eunice is now discharged, can we get her back on the schedule for a port placement with Dr. Sheth? Thank you! Milagros Machado RN 08/21/25 9:11 am MD Regina Donaldson RMA Okay to schedule patient for port in 2-3 weeks at her convenience. She will need repeat CBC and CMPto be done within a week of procedure. Orders are in 08/17/25 Called patient to schedule port. Patient stated she is admitted to [facility] - will be there for 3 days -on antibiotics. I called Lynn in oncology - spoke with Arline, who said she would give her the message. I called Milagros at [phone] - [facility] SENIOR SAS PROGRAMMER and informed them of patient status. documented in this encounter Plan of Treatment DateTypeDepartmentCare Team (Latest Contact Info)Dotmpgeoqbm90/04/2025 10:30 AM ESTInfusion Paola L [facility] - Medical Oncology [address] [place] [address] 08/31/2025 8:30 AM ESTInfusion Paola Steve [facility] - Medical Oncology [address] [place] [phone] 09/03/2025 2:15 PM ESTProcedure visit [facility] - Pre Admit [address] [place] [address] 09/10/2025 9:30 AM ESTHospital Encounter [facility] - Surgery [address] [place] [address] Justin Mackey MD [address] [place] [address] 09/10/2025 9:30 AM EST - 09/10/2025 10:30 AM ESTSurgery [facility] - Surgery [address] [place] [address] Justin Mackey MD [address] [place] [address] INSERTION PORT A CATH [[id number] (CPT??)]09/18/2025 8:30 AM ESTTelemedicine [facility]cology, A Department of [address] [place] [phone] Annita Patton, PASSENGER FLAGMAN-ELECTRICIAN HELPER AUTOMOTIVE [address] [facility], [address] [place] [address] 09/19/2025 9:30 AM ESTInfusion Paola Wilson [facility] - Medical Oncology [address] [place] [address] 09/21/2025 8:00 AM ESTInfusion Paola Wilson [facility] - Medical Oncology [address] [place] [address] NamePriorityAssociated DiagnosesDate/TimeINSERTION PORT A CATH needed for chemotherapy 09/10/2025 9:30 AM ESTdocumented as of this encounter Goals GoalPatient Goal TypeAssociated ProblemsRecent ProgressPatient-Stated?Author return home Milagros Escobedo RN Note: Evaluation of progress towards goal: patient plans to return home with family support Autogenerated Goal Care PlanAutogenerated ProblemNoPotts, Sonya Autogenerated Goal Care PlanAutogenerated ProblemNoPotts, Elizabethdocumented as of this encounter Visit Diagnoses Not on filedocumented in this encounter Additional Health Concerns Active ProblemsNoted DateDiagnosed DateAutogenerated Mkvcllo5808/10/2025 Autogenerated Seysaxo4808/28/2025ssessmentNoted TimePHQ-9 Depression Total Score: 3:45 PM ESTdocumented as of this encounter Care Teams Team MemberRelationshipSpecialtyStart DateEnd Date Bin Sidhu MD [address] [place] [address] PCP - GeneralFamily Vievrqfz71/9/25documented as of this encounter
[2025-08-28 13:43] LABS: Hematocrit 31.2 % (36.0-48.0); Hemoglobin 9.6 g/dL (12.0-16.0); Immature Granulocytes Abs Auto 0.02 10^3/uL (0.00-0.03); Immature Granulocytes Pct Auto 0.3 % (0.0-0.5); Lymphocytes Absolute Auto 2.0 10^3/uL (1.2-3.8); Mean Corpuscular HGB Conc 30.8 g/dL (29.9-35.2); Mean Corpuscular Hemoglobin 28.0 pg (26.7-34.0); Mean Corpuscular Volume 91.0 fL (81.0-99.0); Platelet Count 504 10^3/uL (150-450); Red Blood Count 3.43 10^6/uL (4.20-5.40); White Blood Count 7.1 10^3/uL (4.0-11.0)
[2025-08-28 14:44] LABS: Alanine Aminotransferase 18 U/L (14-59); Albumin Globulin Ratio 0.7; Albumin Level 2.5 g/dL (3.4-5.0); Alkaline Phosphatase 71 U/L (46-116); Anion Gap 7.6; Aspartate Amino Transferase 22 U/L (15-37); Blood Urea Nitrogen 8.0 mg/dL (7.0-18.0); Calcium 8.9 mg/dL (8.5-10.1); Carbon Dioxide 33.3 mmol/L (21.0-32.0); Chloride 106 mmol/L (98-107); Estimated GFR (African America >60 (>=60 mL/min/1.73m^2); Estimated GFR (Non-African Ame >60 (>=60 mL/min/1.73m^2); Globulin 3.8 g/dL; Glucose 103 mg/dL (74-106); Sodium 144 mmol/L (136-145); Total Protein 6.3 g/dL (6.4-8.2)
[2025-08-28 14:52] LABS: Potassium 2.9 mmol/L (3.5-5.1)
== END 2025-08-28 13:24 | disposition home or self-care (01) ==
LOC: LAB 13:23
DX: N39.0 Urinary tract infection, site not specified (principal); D64.9 Anemia, unspecified; A04.8 Other specified bacterial intestinal infections
CPT/HCPCS: 36415; 80053; 85025

== ENCOUNTER 2025-08-30 14:12 | Outpatient (REF) | payer MEDICARE, OTHER, SELFPAY ==
[2025-08-30 14:30] LABS: Hematocrit 29.1 % (36.0-48.0); Hemoglobin 9.0 g/dL (12.0-16.0); Immature Granulocytes Abs Auto 0.02 10^3/uL (0.00-0.03); Immature Granulocytes Pct Auto 0.3 % (0.0-0.5); Lymphocytes Absolute Auto 2.6 10^3/uL (1.2-3.8); Mean Corpuscular HGB Conc 30.9 g/dL (29.9-35.2); Mean Corpuscular Hemoglobin 28.6 pg (26.7-34.0); Mean Corpuscular Volume 92.4 fL (81.0-99.0); Platelet Count 485 10^3/uL (150-450); Red Blood Count 3.15 10^6/uL (4.20-5.40); White Blood Count 7.2 10^3/uL (4.0-11.0)
[2025-08-30 14:59] LABS: Alanine Aminotransferase 15 U/L (14-59); Albumin Globulin Ratio 0.6; Albumin Level 2.2 g/dL (3.4-5.0); Alkaline Phosphatase 67 U/L (46-116); Anion Gap 8.7; Aspartate Amino Transferase 16 U/L (15-37); Blood Urea Nitrogen 9.0 mg/dL (7.0-18.0); Calcium 8.4 mg/dL (8.5-10.1); Carbon Dioxide 30.2 mmol/L (21.0-32.0); Chloride 108 mmol/L (98-107); Estimated GFR (African America >60 (>=60 mL/min/1.73m^2); Estimated GFR (Non-African Ame >60 (>=60 mL/min/1.73m^2); Globulin 3.9 g/dL; Glucose 99 mg/dL (74-106); Magnesium 2.0 mg/dL (1.8-2.4); Potassium 3.9 mmol/L (3.5-5.1); Sodium 143 mmol/L (136-145); Thyroid Stimulating Hormone 1.926 uIU/mL (0.358-3.740); Total Protein 6.1 g/dL (6.4-8.2)
== END 2025-08-30 14:13 | disposition home or self-care (01) ==
LOC: LAB 14:12
DX: C56.9 Malignant neoplasm of unspecified ovary (principal)
CPT/HCPCS: 36415; 80053; 83735; 84439; 84443; 85025

== ENCOUNTER 2025-09-03 12:46 | Outpatient (REF) | payer MEDICARE, OTHER, SELFPAY ==
[2025-09-03 13:22] LABS: Hematocrit 30.8 % (36.0-48.0); Hemoglobin 9.5 g/dL (12.0-16.0); Mean Corpuscular HGB Conc 30.8 g/dL (29.9-35.2); Mean Corpuscular Hemoglobin 27.7 pg (26.7-34.0); Mean Corpuscular Volume 89.8 fL (81.0-99.0); Platelet Count 377 10^3/uL (150-450); Red Blood Count 3.43 10^6/uL (4.20-5.40); White Blood Count 9.6 10^3/uL (4.0-11.0)
[2025-09-03 13:54] LABS: Alanine Aminotransferase 17 U/L (14-59); Albumin Globulin Ratio 0.8; Albumin Level 2.8 g/dL (3.4-5.0); Alkaline Phosphatase 66 U/L (46-116); Anion Gap 10.7; Aspartate Amino Transferase 15 U/L (15-37); Blood Urea Nitrogen 23.0 mg/dL (7.0-18.0); Calcium 8.9 mg/dL (8.5-10.1); Carbon Dioxide 28.3 mmol/L (21.0-32.0); Chloride 103 mmol/L (98-107); Estimated GFR (African America >60 (>=60 mL/min/1.73m^2); Estimated GFR (Non-African Ame >60 (>=60 mL/min/1.73m^2); Globulin 3.4 g/dL; Glucose 118 mg/dL (74-106); Potassium 5.0 mmol/L (3.5-5.1); Sodium 137 mmol/L (136-145); Total Protein 6.2 g/dL (6.4-8.2)
[2025-09-03 14:26] LABS: Basophils Abs Manual 0.00 10^3/uL (0.00-0.10); Basophils Percent Manual 0.0 % (0.2-2.0); Eosinophils Absolute Manual 0.00 10^3/uL (0.00-0.70); Eosinophils Percent Manual 0.0 % (0.9-7.0); Lymphocytes Absolute Manual 0.19 10^3/uL (1.20-3.80); Lymphocytes Percent Manual 2.0 % (20.5-60.0); Monocytes Absolute Manual 0.00 10^3/uL (0.30-0.80); Monocytes Percent Manual 0.0 % (1.7-12.0); Segmented Neut Absolute Manual 9.40 10^3/uL (1.4-6.5); Segmented Neutrophils % Manual 98.0 (43.0-75.0)
== END 2025-09-03 12:47 | disposition home or self-care (01) ==
LOC: LAB 12:46
DX: C55 Malignant neoplasm of uterus, part unspecified (principal)
CPT/HCPCS: 36415; 80053; 85007; 85027

== ENCOUNTER 2025-09-18 08:44 | Outpatient (REF) | payer MEDICARE, OTHER, SELFPAY ==
--- OUTSIDE RECORDS SUMMARY | 2025-09-10 07:30 | XMS_ITS | Encounter Summary ---
Author Organization FriendCode [facility] tem Address [facility] [id number] [address] [place] [address] Care Team Providers [facility] Pharmacy Director Name Role Phone Bin Sidhu MD Primary Care Provider [phone] Reason for Referral * Misc (Routine) - Pending ReviewSpecialtyDiagnoses / ProceduresReferred By ContactReferred To Contact Procedures Discharge Follow-Up Justin Mackey MD [address] [place] [address] Phone: tel: fax: Referral IDStatusReasonStart DateExpiration DateVisits RequestedVisits [id number] * Misc (Routine) - Pending ReviewSpecialtyDiagnoses / ProceduresReferred By ContactReferred To Contact Procedures Leave dressing on - Keep it clean, dry, and intact until clinic visit Justin Mackey MD [address] [facility] [place] [address] Phone: tel: fax: Referral IDStatusReasonStart DateExpiration DateVisits RequestedVisits [id number] * Misc (Routine) - Pending ReviewSpecialtyDiagnoses / ProceduresReferred By ContactReferred To Contact Procedures Hygiene Justin Mackey MD [address] [place] [address] Phone: tel: fax: Referral IDStatusReasonStart DateExpiration DateVisits RequestedVisits [id number] [id number] * Misc (Routine) - Pending ReviewSpecialtyDiagnoses / ProceduresReferred By ContactReferred To Contact Procedures Adult diet Justin Mackey MD [address] [place] [address] Phone: tel: fax: Referral IDStatusReasonStfort lyon DateExpiration DateVisits RequestedVisits [id number] Reason for Visit * Auth/CertSpecialtyDiagnoses / ProceduresReferred By ContactReferred To Contact Diagnoses needed for chemotherapy Procedures MA INSJ TUNNELED CTR VAD W/SUBQ PORT AGE 5 YR/> INSERTION PORT A CATH Justin Mackey MD [address] [place] [address] Phone: tel: fax: Referral IDStatusReasonStart DateExpiration DateVisits RequestedVisits [id number] Encounter Details DateTypeDepartmentCare Team (Latest Contact Info)Ixdzsjggucw77/15/2025 7:30 AM EST - 09/10/2025 11:41 AM ESTHospital Encounter [facility] [address] [place] [id number] Justin Mackey MD [address] [facility] [place] [address] Discharge Disposition: Home Social History Tobacco UseTypesPacks/DayYears UsedDateSmoking Tobacco: NeverSmokeless Tobacco: NeverAlcohol UseStandard Drinks/WeekCommentsNever0 (1 standard drink = 0.6 oz pure alcohol)PHQ-2AnswerDate RecordedTotal Nuyss55110/04/2024UDIT-CAnswerDate RecordedQ1: How often do you have a drink containing alcohol?Never08/04/2025Q2: How many drinks containing alcohol do you have on a typical day when you are drinking?Patient does not drink08/04/2025Q3: How often do you have six or more drinks on one occasion?Never08/04/2025Overall Financial Resource Strain (CARDIA) AnswerDate RecordedHow hard is it for you to pay for the very basics like food, housing, medical care, and heating?Not hard at all08/31/2025PRAPARE - TransportationAnswerDate RecordedIn the past 12 months, has lack of transportation kept you from medical appointments or from getting medications?No 08/31/2025In the past 12 months, has lack of transportation kept you from meetings, work, or from getting things needed for daily living?No08/31/2025HC UtilitiesAnswerDate RecordedIn the past 12 months has the [employer], gas, oil, or water So1 threatened to shut off services in your home?No08/04/2025Housing InstabilityAnswerDate RecordedAre you worried or concerned that in the next two months you may not have stable housing that you own, rent or stay in as a part of a household?No08/31/2025Hunger ScreeningAnswerDate RecordedWithin the past 12 months we worried whether our food would run out before we got money to buy more.Never True08/31/2025Within the past 12 months the food we bought just didn't last and we didn't have money to get more.Never True08/31/2025 CommentsNoSex and Gender InformationValueDate RecordedSex Assigned at BirthNot on fileLegal BbyWpobhs53/08/2025 12:05 AM ESTGender IdentityNot on fileSexual OrientationNot on filedocumented as of this encounter Last Filed Vital Signs Vital SignReadingTime TakenCommentsBlood Lgklcxdz143/6009/10/2025 11:25 AM EST Dmtzo910209/10/2025 11:25 AM IRJEpztitbsomm67.4 ??C (97.6 ??F)09/10/2025 11:25 AM ESTRespiratory Jlke972011/11/2024 11:25 AM ESTOxygen Ozznavfnfa39%09/10/2025 11:25 AM ESTInhaled Oxygen Concentration--Ibqoec20.2 kg (146 lb)09/10/2025 8:24 AM EST Bxjbok355.9 cm (5' 1 )09/10/2025 8:24 AM ESTBody Mass Index27.5909/10/2025 8:24 AM ESTdocumented in this encounter Functional Status * HEENTQuestionAnswerDate of AssessmentAuthorHEENT (WDL)X111/11/2024 8:25 AM EST Naz Collins RNR EyeCorrective Pdlonp2609/10/2025 8:25 AM EST Naz Collins, JORDYNL EyeCorrective Gxpwsu6109/10/2025 8:25 AM EST Naz Collins RNTeethCrowns;Other (Comment)09/10/2025 8:25 AM EST Naz Collins RN * OR Patient PreparationQuestionAnswerDate of AssessmentAuthorTime of last nlwrow2782704/15/2025 8:12 AM Naz Griffith RNDate of last rrztmj5466707/15/2025 8:12 AM Naz Griffith RNDate of last fpdcz4801941/15/2025 8:12 AM Naz Griffith, RNTime of last solid 400060911/11/2024 8:12 AM Naz Griffith RN * VitalsQuestionAnswerDate of DgrgdbnooyZdjsgeJL876/6009/10/2025 11:25 AM EST Naz Collins RNTemp97.6111/11/2024 11:25 AM Naz Griffith RNTemp dajPhqqbrtz97/15/2025 11:25 AM Naz Griffith RN Aavot586309/10/2025 11:25 AM Naz Griffith BSZery7834/15/2025 11:25 AM Nza Griffith RNSpO29809/10/2025 11:25 AM Naz Miranda RNCardiac RhythmNormal sinus vuekoq7309/10/2025 10:40 AM Naz Giraldo RNMAP (mmHg)7809/10/2025 11:25 AM Naz Miranda RN * Hieu Triggers ToolQuestionAnswerDate of AssessmentAuthorPatient Age 62 or WjmxuVbf40/15/2025 8:25 AM Naz Griffith RNBMI <19 or >40No 09/10/2025 8:25 AM Naz Griffith RNSurgery Time Over 3 Hours or 180 QvzyosrFv79/15/2025 8:25 AM Naz Griffith RN * Oxygen TherapyQuestionAnswerDate of AssessmentAuthorO2 DeviceNone (Room air) 09/10/2025 11:25 AM Naz Griffith RN * Height and WeightQuestionAnswerDate of HxakuanndwAxvngjOgslvb8279/15/2025 8:24 AM Naz Griffith RNWeight2336111/11/2024 8:24 AM Naz Miranda RNBEE (kcal)30219911/11/2024 8:24 AM Naz Griffith RNHeight GmppnvFxtcfa58/15/2025 8:24 AM Nza Griffith RNBSA (Calculated - sq m)1.6909/10/2025 8:24 AM Naz Griffith RNBMI (Calculated)27.6111/11/2024 8:24 AM Naz Griffith RNWeight FqifizDcoryo18/15/2025 8:24 AM Naz Griffith RNWeight in (lb) to have BMI = 501994109/10/2025 8:24 AM Naz Griffith RN * Patient ObservationQuestionAnswerDate of AssessmentAuthorPatient Observations Patient awake, alert, talking, eating and drinking. Family at bedside 09/10/2025 11:10 AM Naz Griffith RN * NeurologicalQuestionAnswerDate of AssessmentAuthorNeuro (WDL)WDL111/11/2024 11:10 AM Naz Griffith RN * CardiacQuestionAnswerDate of AssessmentAuthorCardiac (WDL)WDL111/11/2024 10:40 AM Naz Griffith RN * GastrointestinalQuestionAnswerDate of AssessmentAuthorGastrointestinal (WDL) WDL111/11/2024 10:40 AM Naz Griffith RN * MusculoskeletalQuestionAnswerDate of AssessmentAuthorMusculoskeletal (WDL)WDL 09/10/2025 10:40 AM Naz Griffith RN * PsychosocialQuestionAnswerDate of AssessmentAuthorPsychosocial (WDL)WDL 09/10/2025 8:25 AM Naz Griffith RN * Torres Fall RiskQuestionAnswerDate of AssessmentAuthorSecondary Diagnosis0 09/10/2025 8:11 AM Naz Griffith, RNAmbulatory Xaju00711/11/2024 8:11 AM Naz Griffith RNIntravenous Therapy/Heparin/Saline Lock 8:11 AM Naz Griffith RNGait/Transferring0 09/10/2025 8:11 AM Naz Griffith RNMental Rlczrs779/15/2025 8:11 AM Naz Griffith RNScore20111/11/2024 8:11 AM Naz Miranda RN * RespiratoryQuestionAnswerDate of AssessmentAuthorRespiratory (WDL)L 09/10/2025 8:25 AM Naz Griffith RN * GenitourinaryQuestionAnswerDate of AssessmentAuthorGenitourinary (WDL)[facility] 09/10/2025 10:40 AM Naz Griffith RN * Abuse Indicator ScreeningQuestionAnswerDate of AssessmentAuthorSafe in HomeYes 09/10/2025 8:11 AM Naz Griffith RN * Blood HistoryQuestionAnswerDate of AssessmentAuthorHave you had a blood transfusion?Yes09/10/2025 8:10 AM Naz Griffith RNHave you ever had a blood transfusion reaction?No09/10/2025 8:10 AM Naz Griffith RNWould you accept a blood transfusion in a life-threatening situation?Yes09/10/2025 8:10 AM Naz Griffith RN * HeadacheQuestionAnswerDate of AssessmentAuthorComplaint of HeadacheNo 09/10/2025 8:25 AM Naz Griffith RN * Medical Advance DirectiveQuestionAnswerDate of AssessmentAuthorType of Medical Healthcare DirectiveDurable power of trademark attorney for health care;Living will 09/10/2025 7:56 AM Naz Griffith RNDo you have a Medical Advance Directive?Yes09/10/2025 7:56 AM Naz Griffith RNMedical Advance Directive StatusCopy not in chart09/10/2025 7:56 AM Naz Miranda RN * Communication AssessQuestionAnswerDate of AssessmentAuthorType of Communication EnscwkdQdvd22/15/2025 7:46 AM Naz Griffith RN * Adult Sepsis RiskQuestionAnswerDate of AssessmentAuthorRisk of Sepsis v.20.8 09/10/2025 11:41 AM Lindaground, Clindoc * Skin Breakdown PreventionQuestionAnswerDate of AssessmentAuthorRepositioned Turns self09/10/2025 8:25 AM Naz Griffith RN * Pain AssessmentQuestionAnswerDate of AssessmentAuthorPain AssessmentNo/denies pain09/10/2025 11:25 AM Naz Griffith RN * Patient Belongings at Bedside / StretcherQuestionAnswerDate of Assessment AuthorVision - Corrective TjgqfhHcpdykp51/15/2025 8:11 AM Naz Griffith RNClothingBelonging Bag09/10/2025 8:11 AM Naz Griffith RNBelongings at BedsideClothing;Vision;Electronic mloalny1709/10/2025 8:11 AM Naz Griffith, RNPatient ElectronicsCell phone09/10/2025 8:11 AM Naz Griffith RN * IntegumentaryQuestionAnswerDate of AssessmentAuthorIntegumentary (WDL)WDL 09/10/2025 8:25 AM Naz Griffith RN * Fall Risk ScaleQuestionAnswerDate of AssessmentAuthorFall Risk ScaleMorse Fall Risk Scale09/10/2025 8:11 AM Naz Griffith RN * Vitals TimerQuestionAnswerDate of AssessmentAuthorRestart Vitals TimerYes 09/10/2025 11:25 AM Naz Griffith, JORDYN * CardiovascularQuestionAnswerDate of AssessmentAuthorCardiovascular (WDL)WDL 09/10/2025 8:25 AM Naz Griffith RN * VitalsQuestionAnswerDate of AbacflxfruUdskalCM196/6009/10/2025 11:25 AM Naz Giraldo RNTemp97.6111/11/2024 11:25 AM Naz Griffith RNTemp gmuZxxsjahb35 11:25 AM Naz Griffith RN Cnlgd837609/10/2025 11:25 AM Naz Griffith RNResp1112 11:25 AM Naz Griffith, CWNaD01277/15/2025 11:25 AM Naz Miranda RNMAP (mmHg)7809/10/2025 11:25 AM Naz Griffith RN * Height and WeightQuestionAnswerDate of XwnyrmwcpmZkohlfFokhfb0829/15/2025 8:24 AM Naz Griffith RNWeight2336111/11/2024 8:24 AM Naz Miranda RNBEE (kcal)62695611/11/2024 8:24 AM Naz Griffith RNHeight AwcxheNszchl24/15/2025 8:24 AM Naz Griffith RNBSA (Calculated - sq m)1.6909/10/2025 8:24 AM Naz Griffith RNBMI (Calculated)27.6111/11/2024 8:24 AM Naz Griffith RNWeight FiwzcbSxzjlc47/15/2025 8:24 AM Naz Griffith RNWeight in (lb) to have BMI = 506157709/10/2025 8:24 AM Naz Griffith RN * Skin Breakdown PreventionQuestionAnswerDate of AssessmentAuthorRepositioned Turns self09/10/2025 8:25 AM Naz Griffith RN documented as of this encounter Mental Status * HEENTQuestionAnswerEntry DateAuthorHEENT (WDL)X111/11/2024 8:25 AM Naz Miranda RNR EyeCorrective Pphktg5309/10/2025 8:25 AM Naz Miranda RNL EyeCorrective Eyjend2309/10/2025 8:25 AM Naz Miranda RNTeethCrowns;Other (Comment)09/10/2025 8:25 AM Naz Miranda RN * VitalsQuestionAnswerEntry UirjPzntsyTB269/6009/10/2025 11:25 AM Naz Miranda FIQdhb80.6111/11/2024 11:25 AM Naz Griffith RN Temp gbdDlhltcja57/15/2025 11:25 AM Naz Griffith, TYJzqhq45 09/10/2025 11:25 AM Naz Griffith, AZSvtu3252/15/2025 11:25 AM Naz Griffith, AULkM49142/15/2025 11:25 AM Naz Griffith RNCardiac RhythmNormal sinus mbdkth1309/10/2025 10:40 AM Naz Miranda RNMAP (mmHg)7809/10/2025 11:25 AM Naz Griffith RN * Oxygen TherapyQuestionAnswerEntry DateAuthorO2 DeviceNone (Room air)09/10/2025 11:25 AM Naz Griffith RN * NeurologicalQuestionAnswerEntry DateAuthorNeuro (WDL)WDL111/11/2024 11:10 AM Naz Griffith RN * CardiacQuestionAnswerEntry DateAuthorCardiac (WDL)WDL111/11/2024 10:40 AM EST Naz Collins RN * GastrointestinalQuestionAnswerEntry DateAuthorGastrointestinal (WDL)WDL 09/10/2025 10:40 AM Naz Griffith RN * MusculoskeletalQuestionAnswerEntry DateAuthorMusculoskeletal (WDL)WDL 09/10/2025 10:40 AM Naz Griffith RN * PsychosocialQuestionAnswerEntry DateAuthorPsychosocial (WDL)WD11/11/2024 8:25 AM Naz Griffith RN * RespiratoryQuestionAnswerEntry DateAuthorRespiratory (WDL)WD09/10/2025 8:25 AM Naz Griffith RN * GenitourinaryQuestionAnswerEntry DateAuthorGenitourinary (WDL)WD11/11/2024 10:40 AM Naz Grfifith RN * HeadacheQuestionAnswerEntry DateAuthorComplaint of BikbpnhdUl63/15/2025 8:25 AM Naz Griffith RN * Pain AssessmentQuestionAnswerEntry DateAuthorPain AssessmentNo/denies pain 09/10/2025 11:25 AM Naz Griffith RN * IntegumentaryQuestionAnswerEntry DateAuthorIntegumentary (WDL)WD11/11/2024 8:25 AM Naz Griffith RN * Modified AldreteQuestionAnswerEntry YstbZntgskBdmzxdnx187/15/2025 11:25 AM Naz Giraldo RNRespiration2111/11/2024 11:25 AM Naz Miranda RNCirculation2111/11/2024 11:25 AM Naz Griffith RNConsciousness2111/11/2024 11:25 AM Naz Griffith RN Oxygen Fmnkkaghcs632/15/2025 11:25 AM Naz Griffith RNModified German Smlgv4890/15/2025 11:25 AM Naz Griffith RN documented in this encounter Discharge Instructions * Discharge Instructions* Naz Collins RN - 09/10/2025 10:49 AM EST You may feel dizzy, sleepy, and lightheaded due to medications you received. For the next 24 hours: Activity tolerated within Physical Limits Rest at home with moderate activity as tolerated Do not drink alcohol Do not drive Do not operate complex/hazardous machinery today Do not make important decisions or sign important papers Notify physician of: Temperature over 100 degrees farenheit Redness, Warmth, Hardness around IV site Allergic Reaction (rash, hives, itching, trouble breathing or swallowing) Questions, Problems, Concerns Preop phone number [phone] ext [phone] * Attachments The following attachments cannot be sent through Care Everywhere. * Lowering the risk of a surgical site infection ([place]izen [place]) * How to care for a port ([place]) documented in this encounter Medications at Time of Discharge MedicationSigDispense QuantityRefillsLast FilledStart DateEnd Date acetaminophen (TYLENOL EXTRA STRENGTH) 500 mg tablet Take 2 tablets (1,000 mg total) by mouth every 8 (eight) hours as needed for pain, fever or headaches. 30 tablet 08/09/2025 acetaminophen (TYLENOL EXTRA STRENGTH) 500 mg tablet Take 2 tablets (1,000 mg total) by mouth every 6 (six) hours. 30 tablet 09/10/2025 acetaZOLAMIDE (DIAMOX) 250 mg tablet Take 1 tablet (250 mg total) by mouth in the morning and 1 tablet (250 mg total) before bedtime. dexAMETHasone (DECADRON) 4 mg tablet Indications:Endometrial cancer determined by uterine biopsy ([facility])Take 2 tablets (8 mg) by mouth once daily on days 2, 3 and 4. 60 tablet dorzolamide (TRUSOPT) 2 % ophthalmic solution Administer 1 drop to both eyes 3 (three) times a day. famotidine (PEPCID) 20 mg tablet Indications:NauseaTake 1 tablet (20 mg total) by mouth in the morning and 1 tablet (20 mg total) before bedtime. 10 tablet 08/09/2025 ibuprofen (MOTRIN) 600 mg tablet Take 1 tablet (600 mg total) by mouth every 6 (six) hours. 30 tablet 09/10/2025 midodrine (PROAMATINE) 5 mg tablet TAKE 1 TABLET BY MOUTH TWICE A DAY AT 8AM AND 6PM FOR 10 DAYS09/03/2025 netarsudiL-latanoprost 0.02-0.005 % drops Instill 1 drop to eye in the evening. ondansetron (ZOFRAN) 8 mg tablet Indications:Endometrial cancer determined by uterine biopsy ([facility]Starting on day 3, take 1 tablet by mouth twice daily as needed for nausea or vomiting. 60 tablet ondansetron ODT (ZOFRAN ODT) 4 mg disintegrating tablet Indications:Endometrial cancer ([facility])Dissolve 1 tablet (4 mg total) on tongue every 8 (eight) hours as needed for nausea or vomiting. 20 tablet 08/14/2025 potassium chloride (K-TAB,KLOR-CON) 10 MEQ CR tablet TAKE 2 TABLETS BY MOUTH 4 TIMES A DAY FOR 7 DAYS09/03/2025 prochlorperazine (COMPAZINE) 10 mg tablet Indications:Endometrial cancer determined by uterine biopsy ([facility])Take 1 tablet by mouth every 6 hours as needed for nausea or vomiting on days 1 and 2. 60 tablet senna (SENOKOT) 8.6 mg tablet Take 1 tablet (8.6 mg total) by mouth in the morning and 1 tablet (8.6 mg total) before bedtime. 60 tablet 08/09/2025 timolol (TIMOPTIC) 0.5 % ophthalmic solution Administer 1 drop to both eyes in the morning and 1 drop before bedtime. documented as of this encounter H&P Notes * Justin Mackey MD - 09/10/2025 8:20 AM EST HISTORY AND PHYSICAL INTERVAL NOTE: Eunice Salinas Justin 1955 [id number] H&P updated. The patient was examined and he is here for port insertion. Port insertion for chemotherapy for endometrioid carcinoma. The reasons for surgery, alternatives to surgery, and natural history of the disease without surgery were addressed with the patient. We discussed the potential risks and benefits of the surgery. I gave ample opportunity for the patient to ask questions which I answered to their apparent satisfaction. She seemed to understand and provided consent. Justin Mackey MD Source Note - Annita Patton, ALEX-DIRECTOR VIDEO - 08/27/2025 3:30 PM EST Video Visit via Real-time Synchronous Audiovisual Provider Location[facility] A DIVISION OF [facility], A DEPARTMENT OF [facility] [address] [place] [address] Patient Location: Patient's home Video Visit Consent Statement: I discussed risks, benefits, and alternatives of a real-time synchronous audiovisual consultation with the patient (and any accompanying persons) including the risks that the patient's personal health details and medical records will be discussed over real-time, synchronous, interactive video/audio/telecommunication technology, the visit will not be recorded withoutthe express consent of both the provider and the patient, and that there are some limitations compared to pphr-td-nsxn evaluations. The patient consented to the presence of additional virtual and/or in-person participants. We elected to proceed. Subjective: Eunice is a 70 y.o. female here 3 weeks s/p RA-TLH, BSO, radical tumor debulking w peritoneal stripping for endometrial cancer on 08/07/[address] Monson. 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 Intra op findings w residual disease. Official tumor board recommendations include carboplatin / paclitaxel + pembrolizumab, hypermethalation testing. Patient is scheduled for cycle 1 carboplatin / paclitaxel + pembrolizumab 08/30. Patient was recently admitted to [facility] w diagnosed w c.diff and possible bacteremia. Shewas discharged on 08/22, she is scheduled to completed amoxicillin Wednesday and vancomycin for 10 more days. She denies vaginal bleeding, vaginal discharge, changes in bowels/bladder, nausea or vomiting. She is not currently taking hormonal therapy. Denies pain. Oncology History Overview Note At least stage IIIB2 mMMRd endometrioid carcinoma, grade 2 (Residual disease post surgery) --08/04/25 [facility] w vaginal bleeding, D&C w endometrial carcinoma. --08/07/25 RA-TLH, BSO, radical tumor debulking w peritoneal stripping Surgery was performed due to continued vaginal bleeding Eunice : Denies Early satiety Denies Abdominal distention Denies Leg swelling Denies Shortness of breath Denies Vaginal bleeding Denies Change in bowel habits Denies Change in bladder habits Denies Nausea and vomiting All other systems negative, unless specifically noted in HPI. Past Gynecologic History: OB History No obstetric history on file. No LMP recorded (lmp unknown). Patient has had a hysterectomy. Past Surgical History: Procedure Laterality Date DAVINCI HYSTERECTOMY SALPINGO OOPHORECTOMY/RADICAL INTRAPERITONEAL TUMOR DEBULKING Bilateral 08/07/2025 Performed by Dennis Monson MD at [facility] DILATION CURETTAGE N/A 08/04/2025 Performed by Rocio Alexander MD at [facility] FLEXIBLE SIGMOIDOSCOPY N/A 08/07/2025 Performed by Manuel Busby MD at [facility] Past Medical History: Diagnosis Date Anemia Glaucoma Rash Visual impairment Family History Problem Relation Age of Onset Cancer Mother Cancer Father Social History Tobacco Use Smoking status: Never Smokeless tobacco: Never Substance Use Topics Alcohol use: Never Review of Symptoms: Pertinent items are noted in HPI. Objective: LMP (LMP Unknown) Physical Exam: ECO- Symptomatic; fully ambulatory Neurologic: Alert and oriented X 3, normal strength and tone. Normal symmetric reflexes. Normal coordination and gait Final Diagnosis 1. Uterus, fallopian tubes and ovaries, hysterectomy and bilateral salpingo-oophorectomy: ENDOMETRIOID ADENOCARCINOMA of endometrium, grade 2, with deep myometrial invasion. Carcinoma invades lower uterine segment stroma. Positive cervical stroma, uterine serosa (implants), bilateral mesosalpinx and left fallopian tube. Focal lymphovascular invasion. Endometriosis of right fallopian tube serosa. Negative ovaries. Negative parametrial/paracervical margins. 2. Left posterior pelvis, biopsy: Metastatic carcinoma. Most recent labs include: Lab Results Component Value Date NEUTROABS 10.7 (H) 08/09/2025 Lab Results Component Value Date WBC 30.6 (H) 08/16/2025 HGB 11.4 (L) 08/16/2025 HCT 34.4 (L) 08/16/2025 MCV 85 08/16/2025 PLT 694 (H) 08/16/2025 Lab Results Component Value Date SODIUM 137 08/16/2025 K 2.6 (LL) 08/16/2025 GLU 150 (H) 08/16/2025 CALCIUM 8.5 08/16/2025 ALKPHOS 48 08/09/2025 AST 12 08/09/2025 ALT 6 08/09/2025 BILIRUBIN 0.5 08/09/2025 CREATININE 0.70 08/16/2025 No results found for: UPROCRTRAT No results found for: TSH , T4 No results found for: MG No results found for: CA125 No results found for: YK2EZLHVMC Assessment: Oncology History Overview Note At least stage IIIB2 mMMRd endometrioid carcinoma, grade 2 (Residual disease post surgery) --08/04/25 presented from [facility] w vaginal bleeding, D&C w endometrial carcinoma. --08/07/25 RA-TLH, BSO, radical tumor debulking w peritoneal stripping Surgery was performed due to continued vaginal bleeding Ancillary Testing --Loss of MLH1 / PMS2 > hypermethalation pending. --Caris is pending. Post op care --Recovering well. Co-Morbidities --Glaucoma. --BMI 28. Plan: I reviewed Eunice Anderson previous notes from inpatient admission and most recent lab work. I elicited a history, performed a physical exam, and formulated the plan of care. Recovering well, meeting post op milestones. Restriction still in place. Will do post op vaginal cuff check prior to cycle 2. Pending labs, cleared for cycle 1 carboplatin / paclitaxel (AUC 5/175mg/m2) + pembrolizumab. FU hypermethalation. FU PET scan. Order placed for port. Complete antibiotics. Patient will follow up w RE Fay in [place] after cycle 2. Patient is currently undergoing treatment for active cancer, which if left untreated, poses a threat to life. During patients office visit I performed intensive monitoring of medication toxicity and side effects. This included patient symptoms, physical exam findings, lab interpretation and review of current imaging. Dr. Nicole was physically present in the office, available for the entirety of the patient's visit,and participated in the coordination of treatment plan. TONYA PERSAUD APRN-CNP 08/28/25 1459 TONYA Persaud 09/10/25 0820 documented in this encounter Miscellaneous Notes * Op Note - Justin Mackey MD - 09/10/2025 9:56 AM EST Operative Note: Procedure Date: 09/10/2025 Pre-operative Diagnosis: Need for central venous access for chemotherapy Post-operative Diagnosis: same Surgeon: Surgeons and Role: * Justin Mackey MD - Primary Procedure: Port-A-Cath insertion Anesthesia: MAC EBL: Minimal Complications: none immediate Findings: Successful placement of right internal jugular Port-A-Cath Indications: Eunice Anderson is a 70 y.o. female with endometrioid cancrcinoma. The plan for port insertion was discussed with the patient and family. After a thorough explanation of the risks, benefits, and alternatives the patient agreed to proceed with the operative intervention. Procedure in Detail: The patient was brought to the operating room and placed in supine position. Cardiopulmonary monitoring was initiated. EPC cuffs were placed. Monitored anesthesia care was initiated. The patient's arms were tucked. The patient's right neck and chest were prepped and draped in the usual sterile fashion. A critical surgical time-out was performed. The patient was placed in Trendelenburg position and under ultrasound the right internal jugular vein is identified. Local anesthesia was infiltrated. A large- bore needle was used to access the rightinternal jugular vein under ultrasound guidance. Return of dark nonpulsatile blood was noted. A guidewire was passed easily into the vein. Fluoroscopy was used to confirm guidewire in the superior vena cava. Next, a transverse incision was made along the right chest wall and deepened through subcutaneous tissue. An appropriate size pocket was created and the reservoir port placed. A small incision was made at the wire exit site. The catheter was tunneled underneath the skin from pocket to the wire exit site. The sheath and dilator were then passed over the wire and the dilator and wire removed. The catheter was advanced into the superior vena cava through the sheath. The sheath was cracked and removed. Fluoroscopy was used to confirm that the catheter was in appropriate position. The catheter was then cut at the 22 cm genevieve and connected to the port reservoir using the plastic locking hub.The port was secured to underlying fascia using 3-0 PDS. A Blount needle was used to flush the portwith heparinized saline. The skin was closed with deep dermal 3-0 Vicryl followed by continuous subcuticular 4-0 Monocryl suture. Steri-Strips were applied. The patient was awaken from anesthesia and taken to PACU in excellent condition. Justin Mackey MD [facility] [place] documented in this encounter Plan of Treatment DateTypeDepartmentCare Team (Latest Contact Info)Fieayioetsb84/26/2025 8:00 AM ESTInfusion [facility] [address] [place] [phone] 10/16/2025 9:00 AM ESTOffice Visit [facility] - Medical Oncology [address] [place] [phone] Melinda Coffey PA [address] [place] [address] 10/16/2025 9:30 AM ESTInfusion [facility] On[facility] [address] [place] [phone] documented as of this encounter Goals GoalPatient Goal TypeAssociated ProblemsRecent ProgressPatient-Stated?Author return home Milagros Escobedo RN Note: Evaluation of progress towards goal: patient plans to return home with family support documented as of this encounter Procedures Procedure NamePriorityDate/TimeAssociated DiagnosisCommentsFL FLUORO GUIDE VASC DEVICE XGNJPFUXIEiuqbvv24/15/2025 11:07 AM EST XR CHEST 1 FQBACL1809/10/2025 10:57 AM EST MA INSJ TUNNELED CTR VAD W/SUBQ PORT AGE 5 YR/>09/10/2025 9:56 AM EST needed for chemotherapy BEDSIDE ZPKKNISFqftecn58/15/2025 8:56 AM EST documented in this encounter Results * Fluoroscopy guidance vascular device operative (09/10/2025 11:07 AM EST) Anatomical RegionLateralityModalityRadio FluoroscopySpecimen (Source) Anatomical Location / LateralityCollection Method / VolumeCollection Time Received Time09/10/2025 11:18 AM EST Narrative 09/10/2025 11:18 AM EST FL FLUORO GUIDE VASC DEVICE OPERATIVE: 09/10/2025 9:43 AM Clinical: Port placement Reference air kerma: 7.6 mGY. IMPRESSION: * ??Fluoroscopic guidance provided to clinical service for intraoperative port placement. * ??See separate clinical report for procedural details. Finalized by Steven Reece MD on 09/10/2025 11:18 AM Procedure Note Steven Reece MD - 09/10/2025 FL FLUORO GUIDE VASC DEVICE OPERATIVE: 09/10/2025 9:43 AM Clinical: Port placement Reference air kerma: 7.6 mGY. IMPRESSION: * Fluoroscopic guidance provided to clinical service for intraoperativeport placement. * See separate clinical report for procedural details. Finalized by Steven Reece MD on 09/10/2025 11:18 AM Authorizing ProviderResult TypeResult StatusMennatgibran KAPOOR FLUOROSCOPY ORDERABLESFinal Result * X-ray chest 1 view (09/10/2025 10:57 AM EST)Anatomical RegionLaterality ModalityBody, ChestN/AComputed RadiographySpecimen (Source)Anatomical Location / LateralityCollection Method / VolumeCollection TimeReceived Time09/10/2025 11:02 AM EST Narrative 09/10/2025 11:03 AM EST Single view chest XR CHEST 1 VW History: Post op Comparison: None Impression: * ??Mild congestion right upper chest. There is a port catheter with the tip in the superior vena cava. No pneumothorax. No cardiomegaly. Finalized by Timothy Green MD on 09/10/2025 11:03 AM Procedure Note Timothy Green MD - 09/10/2025 Single view chest XR CHEST 1 VW History: Post op Comparison: None Impression: * Mild congestion right upper chest. There is a port catheter with thetip in the superior vena cava. No pneumothorax. No cardiomegaly. Finalized by Timothy Green MD on 09/10/2025 11:03 AM Authorizing ProviderResult TypeResult StatusJustin Mackey MDIMG DIAGNOSTIC IMAGING ORDERABLESFinal Result * Bedside Glucose *Place/Obtain serum glucose if >500 per glucometer. (09/10/2025 8:56 AM EST)ComponentValueRef RangeTest MethodAnalysis Time Performed AtPathologist SignatureBedside Glucose (POC)9465 - 99 mg/dL 09/10/2025 8:59 AM ESTPROMEDICA VALLEY PRESBYTERIAN HOSPITALpecimen (Source) Anatomical Location / LateralityCollection Method / VolumeCollection Time Received Timearterial/uvrggegat30/15/2025 8:56 AM EST09/10/2025 8:59 AM EST Narrative Authorizing ProviderResult TypeResult Kelsi Mackey MDPOINT OF CARE TEST ORDERABLESFinal ResultPerforming OrganizationAddressCity/State/ZIP Code Phone Number [facility] [address] [place] [address], documented in this encounter Visit Diagnoses Not on filedocumented in this encounter Administered Medications Medication OrderMAR ActionAction DateDoseRateSite lactated ringers infusion 50 mL/hr, intravenous, Continuous, Starting on Wed09/10/25 at 0815, Pre-op, If fluid restriction is not indicated, infuse at a rate up to 5 mL/kg/hr not to exceed the total replacement volume (2 ml/kg/hr) from the time NPO status was initiated. Continued by Uluskwlxfq85/15/2025 9:53 AM EST50 mL/hrNew Bag09/10/2025 8:36 AM EST50 mL/hr50 mL/hrdocumented in this encounter Active and Recently Administered Medications Times are shown in EST.Medication Order// ceFAZolin (ANCEF) IVPB 2000 mg/50 mL in iso-osmotic dextrose (40 mg/mL premix) 2,000 mg, intravenous, at 100 mL/hr, Administer over 30 Minutes, 30 min pre-op, On Wed09/10/25 at 0830, For 1 dose, Look-alike/sound-alike medication - verify indication for use., Indication: Surgical prophylaxis * 0830 (Due) Medication Order/ lactated ringers infusion (CANCELED) 50 mL/hr, intravenous, Continuous, Starting on Wed09/10/25 at 0815, Pre-op, If fluid restriction is not indicated, infuse at a rate up to 5 mL/kg/hr not to exceed the total replacement volume (2 ml/kg/hr) from the time NPO status was initiated. * 0836 (New Bag - Provider: Naz Collins RN) * 0953 (Continued by Anesthesia - Provider: Catrachito Ingram APRN-BHARTI) * 1028 (Stop Bag - Provider: BELLE Del Angel) Medication Order/ heparin, porcine (PF) syringe (CANCELED) As needed, Starting on Wed09/10/25 at 1030, Intra-op * 1030 (Given - Provider: Justin Mackey MD - Comment: port flushes) lidocaine-EPINEPHrine (XYLOCAINE W/EPI) 1 %-1:[id number] injection (CANCELED) As needed, Starting on Wed09/10/25 at 1030, Intra-op * 1030 (Given - Provider: Justin Mackey MD) documented in this encounter Additional Health Concerns AssessmentNoted TimePHQ-9 Depression Total Score: 3:45 PM EST documented as of this encounter Care Teams Team MemberRelationshipSpecialtyStart DateEnd Date Bin Sidhu MD [address] [place] [address] PCP - GeneralFamily Tartwqnq60/9/25documented as of this encounter
--- OUTSIDE RECORDS SUMMARY | 2025-09-10 09:30 | XMS_ITS | Encounter Summary ---
Author Organization [facility] tem Address [id number] [address] [place] [address] Care Team Providers Care Center Punch Operator Name Role Phone Bin Sidhu MD Primary Care Provider [phone] Reason for Visit * Auth/CertSpecialtyDiagnoses / ProceduresReferred By ContactReferred To Contact Diagnoses needed for chemotherapy Procedures [place] INSJ TUNNELED CTR VAD W/SUBQ PORT AGE 5 YR/> INSERTION PORT A CATH Justin Mackey MD [address] [place] [address] Phone: tel: fax: Referral IDStatusReasonStart DateExpiration DateVisits RequestedVisits [id number] Encounter Details DateTypeDepartmentCare Team (Latest Contact Info)Xngaipkwbdd96/15/2025 9:30 AM EST - 09/10/2025 10:30 AM ESTSur[facility] [address] [place] [id number] Justin Mackey MD [address] [place] [address] INSERTION PORT A CATH [71420 (CPT??)] Surgery Details Date/TimeStatusLocationORServicePatient ClassCase ClassCase TypeTrauma Case? 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 [facility] ElectivePanel 1 ProcedureLRCastle [facility] ClassCommentsINSERTION PORT A CATHN/AMonitored Anesthesia CareChestClean SurgeonSurgeon RoleServicePanelOmar, Justin Ryder, KTNiicfmvXpeeowr6srrzdgybpd in this encounter Social History Tobacco UseTypesPacks/DayYears UsedDateSmoking Tobacco: NeverSmokeless Tobacco: NeverAlcohol UseStandard Drinks/WeekCommentsNever0 (1 standard drink = 0.6 oz pure alcohol)PHQ-2AnswerDate RecordedTotal Gczhh77410/04/2024UDIT-CAnswerDate RecordedQ1: How often do you have a [...] RecordedIn the past 12 months has the inZair, gas, oil, or water [employer] threatened to shut off services in your [...] InformationValueDate RecordedSex Assigned at BirthNot on fileLegal UnpOjhrzk14/08/2025 12:05 AM ESTGender IdentityNot on fileSexual OrientationNot on filedocumented as of this encounter Last Filed Vital Signs Vital SignReadingTime TakenCommentsBlood Xsnlsfdr825/7409/10/2025 8:24 AM EST Cxiuk796709/10/2025 8:24 AM FMONzehjwqgztc82.1 ??C (98.8 ??F)09/10/2025 8:24 AM ESTRespiratory Jhrz668211/11/2024 8:24 AM ESTOxygen Kcasuvaggg254%09/10/2025 8:24 AM ESTInhaled Oxygen Concentration--Mteeet72.2 kg (146 lb)09/10/2025 8:24 AM EST Howede192.9 cm (5' 1 )09/10/2025 8:24 AM ESTBody Mass Index27.5909/10/2025 8:24 AM ESTdocumented in this encounter Functional Status * HEENTQuestionAnswerDate of AssessmentAuthorHEENT (WDL)X111/11/2024 8:25 AM EST Naz Collins RNR EyeCorrect[employer] Rqzjuh7909/10/2025 8:25 AM EST Naz Collins, ROGER [employer] Kjlhhc4909/10/2025 8:25 AM EST Naz Collins RNTeethCrowns;Other (Comment)09/10/2025 8:25 AM EST Naz Collins RN * OR Patient PreparationQuestionAnswerDate of AssessmentAuthorTime of last kowzlf5903170/15/2025 8:12 AM Naz Griffith RNDate of last nhbusp7723340/15/2025 8:12 AM Naz Griffith RNDate of last symwk9367353/15/2025 8:12 AM Naz Griffith RNTime of last solid 9936207/ 8:12 AM Naz Griffith RN * VitalsQuestionAnswerDate of VmdmbddyyaOmpcebZF918/6009/10/2025 11:25 AM EST Naz Collins RNTemp97.6111/11/2024 11:25 AM Naz Griffith RNTemp dzjFlmxloas35/15/2025 11:25 AM Naz Griffith RN Flnyi744809/10/2025 11:25 AM Naz Griffith RNResp11111/11/2024 11:25 AM Naz Griffith RNSpO29809/10/2025 11:25 AM Naz Miranda RNCardiac RhythmNormal sinus wbxedt9609/10/2025 10:40 AM Naz Giraldo RNMAP (mmHg)7809/10/2025 11:25 AM Naz Miranda RN * Hieu Triggers ToolQuestionAnswerDate of AssessmentAuthorPatient Age 62 or XvpagQhc36/15/2025 8:25 AM Naz Griffith RNBMI <19 or >40No 09/10/2025 8:25 AM Naz Griffith RNSurgery Time Over 3 Hours or 180 IfhoaopDn34/15/2025 8:25 AM Naz Griffith RN * Oxygen TherapyQuestionAnswerDate of AssessmentAuthorO2 DeviceNone (Room air) 09/10/2025 11:25 AM Naz Griffith RN * Height and WeightQuestionAnswerDate of NfcxmlzfnmOgngkhCysprd7344/15/2025 8:24 AM Naz Griffith RNWeight2336111/11/2024 8:24 AM Naz Miranda RNBEE (kcal)34490111/11/2024 8:24 AM Naz Griffith RNHeight PfesrtEyjkns46/15/2025 8:24 AM Naz Griffith RNBSA (Calculated - sq m)1.6909/10/2025 8:24 AM Naz Griffith RNBMI (Calculated)27.6111/11/2024 8:24 AM Naz Griffith RNWeight KkvqttYcucbs31/15/2025 8:24 AM Naz Griffith RNWeight in (lb) to have BMI = 987119709/10/2025 8:24 AM Naz Griffith RN * Patient ObservationQuestionAnswerDate of AssessmentAuthorPatient Observations Patient awake, alert, talking, eating and drinking. Family at bedside 09/10/2025 11:10 AM Naz Griffith RN * NeurologicalQuestionAnswerDate of AssessmentAuthorNeuro (WDL)WD11/11/2024 11:10 AM Naz Griffith RN * CardiacQuestionAnswerDate of AssessmentAuthorCardiac (WDL)WDL111/11/2024 10:40 AM Naz Griffith RN * GastrointestinalQuestionAnswerDate of AssessmentAuthorGastrointestinal (WDL) WD11/11/2024 10:40 AM Naz Griffith RN * MusculoskeletalQuestionAnswerDate of AssessmentAuthorMusculoskeletal (WDL)WDL 09/10/2025 10:40 AM Naz Griffith RN * PsychosocialQuestionAnswerDate of AssessmentAuthorPsychosocial (WDL)WDL 09/10/2025 8:25 AM Naz Griffith RN * Torres Fall RiskQuestionAnswerDate of AssessmentAuthorSecondary Diagnosis0 09/10/2025 8:11 AM Naz Griffith RNAmbulatory Nwwg44811/11/2024 8:11 AM Naz Griffith RNIntravenous Therapy/Heparin/Saline Lock 8:11 AM Naz Griffith RNGait/Transferring0 09/10/2025 8:11 AM Naz Griffith RNMental Qbuzdj749/15/2025 8:11 AM Naz Griffith RNScore20111/11/2024 8:11 AM Naz Miranda RN * RespiratoryQuestionAnswerDate of AssessmentAuthorRespiratory (L)[facility] 09/10/2025 8:25 AM Naz Griffith RN * GenitourinaryQuestionAnswerDate of AssessmentAuthorGenitourinary ([facility] 09/10/2025 10:40 AM Naz Griffith RN [...] AssessmentAuthorType of Medical Healthcare DirectiveDurable power of tax associate attorney for health care;Living will 09/10/2025 7:56 AM Naz Griffith RNDo you have a Medical Advance Directive?Yes09/10/2025 7:56 AM ESTSchornak-Bolden, Naz, RNMedical Advance Directive StatusCopy not in chart09/10/2025 7:56 AM Naz Miranda, JORDYN * Communication AssessQuestionAnswerDate of AssessmentAuthorType of Communication VjdcrhyQlxb85/15/2025 7:46 AM Naz Griffith RN * Adult Sepsis RiskQuestionAnswerDate of AssessmentAuthorRisk of Sepsis v.20.8 09/10/2025 11:41 AM Farzad Clindoc * Skin Breakdown PreventionQuestionAnswerDate of AssessmentAuthorRepositioned Turns self09/10/2025 8:25 AM Naz Griffith, JORDYN * Pain AssessmentQuestionAnswerDate of AssessmentAuthorPain AssessmentNo/denies pain09/10/2025 11:25 AM Naz Griffith, JORDYN * Patient Belongings at Bedside / StretcherQuestionAnswerDate of Assessment AuthorVision - Corrective NhlbftSagkqnc10/15/2025 8:11 AM Naz Griffith RNClothingBelonging Bag09/10/2025 8:11 AM Naz Griffith RNBelongings at BedsideClothing;Vision;Electronic dnfwjkt9509/10/2025 8:11 AM Naz Griffith, RNPatient ElectronicsCell phone09/10/2025 8:11 AM Naz Griffith, JORDYN * IntegumentaryQuestionAnswerDate of AssessmentAuthorIntegumentary (WDL)WDL 09/10/2025 8:25 AM Naz Griffith, JORDYN * Fall Risk ScaleQuestionAnswerDate of AssessmentAuthorFall Risk ScaleMorse Fall Risk Scale09/10/2025 8:11 AM Naz Griffith, JORDYN * Vitals TimerQuestionAnswerDate of AssessmentAuthorRestart Vitals TimerYes 09/10/2025 11:25 AM Naz Griffith, JORDYN * CardiovascularQuestionAnswerDate of AssessmentAuthorCardiovascular (WDL)WDL 09/10/2025 8:25 AM Naz Griffith RN * VitalsQuestionAnswerDate of FzatwbyjmdNkjrppBU550/6009/10/2025 11:25 AM Naz Giraldo RNTemp97.6111/11/2024 11:25 AM Naz Griffith RNTemp wazIrhkxgxl12/15/2025 11:25 AM Naz Griffith RN Zykcg1397 11:25 AM Naz Griffith ZAOfxa0456 11:25 AM Naz Griffith, BQZuH09997/15/2025 11:25 AM Naz Miranda RNMAP (mmHg)7809/10/2025 11:25 AM Naz Griffith RN * Height and WeightQuestionAnswerDate of ZnwkenobbhJicgxvFzciwe2862/15/2025 8:24 AM Naz Griffith RNWeight2336111/11/2024 8:24 AM Naz Miranda RNBEE (kcal)01550811/11/2024 8:24 AM Naz Griffith RNHeight BasusyTnzosm04/15/2025 8:24 AM Naz Griffith RNBSA (Calculated - sq m)1.6909/10/2025 8:24 AM Naz Griffith RNBMI (Calculated)27.6111/11/2024 8:24 AM Naz Griffith RNWeight TlvbumDjbsjy57/15/2025 8:24 AM Naz Griffith RNWeight in (lb) to have BMI = 889540209/10/2025 8:24 AM Naz Griffith RN * Skin Breakdown PreventionQuestionAnswerDate of AssessmentAuthorRepositioned Turns self09/10/2025 8:25 AM Naz Griffith RN documented as of this encounter Mental Status * HEENTQuestionAnswerEntry DateAuthorHEENT (WDL)X111/11/2024 8:25 AM Naz Miranda RNR [employer] Yxjdki2809/10/2025 8:25 AM Naz Miranda RNL [employer] Xdtute0409/10/2025 8:25 AM Naz Miranda RNTeethCrowns;Other (Comment)09/10/2025 8:25 AM Naz Miranda RN * VitalsQuestionAnswerEntry YonwSzsngbPZ919/6009/10/2025 11:25 AM Naz Miranda XQNunx01.6111/11/2024 11:25 AM Naz Griffith RN Temp hzrFjccbbel77/15/2025 11:25 AM Naz Griffith, XUTsguy83 09/10/2025 11:25 AM Naz Griffith DVWhnm1600/15/2025 11:25 AM Naz Griffith, BHTkG09286/15/2025 11:25 AM Naz Griffith RNCardiac RhythmNormal sinus vrqewb3509/10/2025 10:40 AM Naz Miranda RNMAP (mmHg)7809/10/2025 11:25 [...] AM Naz Griffith RN * RespiratoryQuestionAnswerEntry DateAuthorRespiratory (WDL)WDL111/11/2024 8:25 AM Naz Griffith RN * GenitourinaryQuestionAnswerEntry DateAuthorGenitourinary (WDL)WD11/11/2024 10:40 AM Naz Griffith RN * HeadacheQuestionAnswerEntry DateAuthorComplaint of TcwoqklyUv53/15/2025 8:25 AM Naz Griffith RN * Pain AssessmentQuestionAnswerEntry DateAuthorPain AssessmentNo/denies pain 09/10/2025 11:25 AM Naz Griffith RN * IntegumentaryQuestionAnswerEntry DateAuthorIntegumentary (WDL)WDL111/11/2024 8:25 AM Naz Griffith RN * Modified AldreteQuestionAnswerEntry FqogPqigdnCvlkakrv291/15/2025 11:25 AM Naz Giraldo RNRespiration2111/11/2024 11:25 AM Naz Miranda RNCirculation2111/11/2024 11:25 AM Naz Griffith RNConsciousness2111/11/2024 11:25 AM Naz Griffith RN Oxygen Chnqouivjw242/15/2025 11:25 AM Naz Griffith RNModified German Ohwlk2726/15/2025 11:25 AM Naz Griffith RN documented in [...] swallowing) Questions, Problems, Concerns Preop phone number [phone] ext [phone] * Attachments The following attachments cannot be sent through Care Everywhere. * Lowering the risk of a surgical site infection (Martiniquais) * How to care for a port (Martiniquais) documented in this encounter Medications at Time [...] tablet Indications:Endometrial cancer determined by uterine biopsy ([facility])Take 2 tablets (8 mg) by mouth once [...] tablet Indications:Endometrial cancer determined by uterine biopsy ([facility])Starting on day 3, take 1 tablet by mouth twice daily as needed for nausea or vomiting. 60 tablet ondansetron ODT (ZOFRAN ODT) 4 mg disintegrating tablet Indications:Endometrial cancer ([facility])Dissolve 1 tablet (4 mg total) on tongue every 8 (eight) hours as needed for nausea or vomiting. 20 tablet 08/14/2025 potassium chloride (K-TAB,KLOR-CON) 10 MEQ CR tablet TAKE 2 TABLETS BY MOUTH 4 TIMES A DAY FOR 7 DAYS09/03/2025 prochlorperazine (COMPAZINE) 10 mg tablet Indications:Endometrial cancer determined by uterine biopsy ([facility])Take 1 tablet by mouth every 6 hours [...] AND PHYSICAL INTERVAL NOTE: Eunice Anderson 1955 [phone] H&P updated. The patient was examined and [...] Justin Mackey MD Source Note - Annita Patton APRN-MIKE - 08/27/2025 3:30 PM EST Video Visit via Real-time Synchronous Audiovisual Provider Location: [facility], A [facility] OF [facility] [address] [place] [phone] Patient Location: Patient's home Video Visit Consent [...] that there are some limitations compared to vvbw-zi-idln evaluations. The patient consented to the presence [...] pembrolizumab 08/30. Patient was recently admitted to [facility] w diagnosed w c.diff and possible [...] (Residual disease post surgery) --08/04/25 [facility], D&C w endometrial carcinoma. [...] 08/07/2025 Performed by Dennis Monson MD at [facility] DILATION CURETTAGE N/A 08/04/2025 Performed by Rocio Alexander MD at [facility] FLEXIBLE SIGMOIDOSCOPY N/A 08/07/2025 Performed by Manuel Busby MD at [facility] Past Medical History: Diagnosis Date Anemia Glaucoma [...] found for: CA125 No results found for: KW4DEYLFRE Assessment: Oncology History Overview Note At least stage IIIB2 mMMRd endometrioid carcinoma, grade 2 (Residual disease post surgery) --08/04/25 [facility], D&C w endometrial carcinoma. [...] will follow up w [facility] in [place] after cycle 2. Patient is currently undergoing [...] PACU in excellent condition. Justin Mackey MD [facility] General Surgery [place] documented in this encounter Plan of Treatment DateTypeDepartmentCare Team (Latest Contact Info)Oljatkgboyv52/26/2025 8:00 AM ESTInfusion Paola Wilson [facility] - Medical Oncology [address] [place] [phone] 10/16/2025 9:00 AM ESTOffice Visit Paola Ell[place] [facility] - Medical Oncology [address] [place] [phone] Melinda Coffey PA [address] [place] [address] 10/16/2025 9:30 AM ESTInfusion Paola Wilson [place] [facility] - Medical Oncology [address] [place] [phone] documented as of this encounter Goals GoalPatient Goal TypeAssociated ProblemsRecent ProgressPatient-Stated?Author return home Milagros Escobedo RN Note: Evaluation of progress towards goal: patient plans to return home with family support documented as of this encounter Procedures Procedure NamePriorityDate/TimeAssociated DiagnosisCommentsFL FLUORO GUIDE VASC DEVICE OXEBIWDRGBxugbrs38/15/2025 11:07 AM EST XR CHEST 1 HUGBFT8309/10/2025 10:57 AM EST [place] INSJ TUNNELED CTR VAD W/SUBQ PORT AGE 5 YR/>09/10/2025 9:56 AM EST needed for chemotherapy BEDSIDE UGSITVHKupgypt64/15/2025 8:56 AM EST documented in this encounter [...] - 99 mg/dL 09/10/2025 8:59 AM ESTPROMEDICA KA[facility]AL[facility] MED[facility] CENTERpecimen (Source) Anatomical Location / LateralityCollection Method / VolumeCollection Time Received Timearterial/xhkwhyttc01/15/2025 8:56 AM EST09/10/2025 8:59 AM EST Narrative Authorizing ProviderResult TypeResult Kelsi Mackey MDPOINT OF CARE TEST ORDERABLESFinal ResultPerforming OrganizationAddressCity/State/ZIP Code Phone Number [facility] [address] [place] [address], documented in this encounter Visit Diagnoses Not on filedocumented in this encounter Administered Medications Medication OrderMAR ActionAction DateDoseRateSite heparin, porcine (PF) syringe As needed, Starting on Wed09/10/25 at 1030, Intra-op Given09/10/2025 10:30 AM EST20 mL lactated ringers infusion 50 mL/hr, intravenous, Continuous, Starting on Wed09/10/25 at 0815, Pre-op, If fluid restriction is not indicated, infuse at a rate up to 5 mL/kg/hr not to exceed the total replacement volume (2 ml/kg/hr) from the time NPO status was initiated. Continued by Dsmzitopes71/15/2025 9:53 AM EST50 mL/hrNew Bag09/10/2025 8:36 AM EST50 mL/hr50 mL/hr lidocaine-EPINEPHrine (XYLOCAINE W/EPI) 1 %-1:397320 injection As needed, Starting on Wed09/10/25 at 1030, Intra-op Given09/10/2025 10:30 AM EST10 mLdocumented in this encounter Active and Recently Administered Medications Times are shown in EST.Medication Order/ ceFAZolin (ANCEF) IVPB 2000 mg/50 mL in iso-osmotic dextrose (40 mg/mL premix) 2,000 mg, intravenous, at 100 mL/hr, Administer over 30 Minutes, 30 min pre-op, On Wed09/10/25 at 0830, For 1 dose, Look-alike/sound-alike medication - verify indication for use., Indication: Surgical prophylaxis * 0830 (Due) Medication Order// lactated ringers infusion (CANCELED) 50 mL/hr, intravenous, Continuous, Starting on Wed09/10/25 at 0815, Pre-op, If fluid restriction is not indicated, infuse at a rate up to 5 mL/kg/hr not to exceed the total replacement volume (2 ml/kg/hr) from the time NPO status was initiated. * 0836 (New Bag - Provider: Naz Collins RN) * 0953 (Continued by Anesthesia - Provider: BELLE Del Angel) * 1028 (Stop Bag - Provider: BELLE Del Angel) Medication Order/ heparin, porcine (PF) syringe (CANCELED) As needed, Starting on Wed09/10/25 at 1030, Intra-op * 1030 (Given - Provider: Justin Mackey MD - Comment: port flushes) lidocaine-EPINEPHrine (XYLOCAINE W/EPI) 1 %-1:337077 injection (CANCELED) As needed, Starting on Wed09/10/25 at 1030, Intra-op * 1030 (Given - Provider: Justin Mackey MD) documented in this encounter Additional Health Concerns AssessmentNoted TimePHQ-9 Depression Total Score: 3:45 PM EST documented as of this encounter Care Teams Team MemberRelationshipSpecialtyStart DateEnd Date Bin Sidhu MD [address] [phone] PCP - GeneralFamily Ipjpajut39/9/25documented as of this encounter
--- OUTSIDE RECORDS SUMMARY | 2025-09-10 09:53 | XMS_ITS | Encounter Summary ---
Author Organization [facility] tem Address [id number] [address] [place] [address] Care Team Providers Care Import Customer Service Manager Name Role Phone Bin Sidhu MD Primary Care Provider [phone] Reason for Visit * Auth/CertSpecialtyDiagnoses / ProceduresReferred By ContactReferred To Contact Diagnoses needed for chemotherapy Procedures [place] INSJ TUNNELED CTR VAD W/SUBQ PORT AGE 5 YR/> INSERTION PORT A CATH Justin Mackey MD [address] [place] [address] Phone: tel: fax: Referral IDStatusReasonStart DateExpiration DateVisits RequestedVisits [id number] Encounter Details DateTypeDepartmentCare Team (Latest Contact Info)Paxskdhvztz88/15/2025 9:53 AM ESTAnesthesia Event [facility] [address] [place] [address] Peter Angulo MD [address] [place] [address] Anesthesia Record Procedure NameResponsible AnesthesiologistAnesthesia Start TimeAnesthesia Stop TimeINSERTION PORT A CATH (Chest)Peter Angulo MD09/10/25 59509509/10/25 1037 RdtuEoraTufxvJtmsmbg96/15/977211931063Xn Vaoob4202Dy Start Zwlb6304Dy Induction The patient was reevaluated immediately before moderate or deep sedation use and before anesthesia induction.0956Patient Ready for Mszktqp3682Hgmzqtrv2978iv stop yttw7723Xyodqhgna/Transfer From the WV2663Bg Breu1346Wknkfxr to RNTransported to:Phase II, Spontaneous Ventilation, O2 per Nasal Cannula, 0 LPM Pt. Tolerated procedure well, vital signs stable and document on nursing record Care transferred to receiving RN* NameTotalpropofol (DIPRIVAN) ahyjgvdso423 mg midazolam (VERSED) injection 2 mg/2 mL2 mgfentaNYL (SUBLIMAZE) ezrxvlgsy464 mcgceFAZolin (ANCEF) IVPB 2000 mg/50 mL in iso-osmotic dextrose (40 mg/mL premix)2,000 mgondansetron PF (ZOFRAN) 2 mg/mL injection4 mglactated ringers rnluughf197 mL * Agents Name Sevoflurane Inspired Sevoflurane * Blood No blood administrations on file. FhyqFdomdimAkbtlultcTbgnrryFbpnw54/11/25; 1621; Incision; Abdomen; N/A; 5 PORT SITES WITH GLUE08/07/25 1621 by Lillian Edwards RNWound09/10/25; 0848; Incision; Chest; N/A; steri strips, 4x4s, /15/25 0848 by Erin Carney RN Hiav-Z-Xnis78/15/25; 1019; Dr Mackey; OR; Yes; Yes; Chlorhexadine; Yes; Yes; Injectable; Comfort measures, Sedated; Yes; 8; 22 cm; Right; Internal Jugular 09/10/25 1019 by Erin Carney RNPeripheral IVPlacement Date: 09/10/25; Placement Time: 834; Catheter Size: 22 G; Orientation: Distal, Left, Posterior; Location: Forearm; Site Prep: Chlorhexadine and isopropyl alcohol; Technique: Anatomical landmarks; Inserted by: Naz COBB; Insertion Attempts: 2; Patient Tolerance: Tolerated well; Removal Date: 09/10/25; Removal Time: 0835 by Naz Collins RN09/10/25 1140 by Naz Collins RN documented in this encounter Social History Tobacco UseTypesPacks/DayYears UsedDateSmoking Tobacco: NeverSmokeless Tobacco: NeverAlcohol UseStandard Drinks/WeekCommentsNever0 (1 standard drink = 0.6 oz pure alcohol)PHQ-2AnswerDate RecordedTotal Ywwpt85810/04/2024UDIT-CAnswerDate RecordedQ1: How often do you have a [...] has the electric, gas, oil, or water [facility] threatened to shut off services in your [...] InformationValueDate RecordedSex Assigned at BirthNot on fileLegal VcmJujgos50/08/2025 12:05 AM ESTGender IdentityNot on fileSexual OrientationNot on filedocumented as of this encounter Mental Status * Vt (Set, mL)AnswerEntry VpngFlcsko52142/15/2025 10:28 AM ESTInterface - Yumiko Device In documented in this encounter OR Notes * Anesthesia Postprocedure Evaluation - Peter Angulo MD - 09/13/2025 3:40 PM EST ANESTHESIA POST-EVALUATION Vinted Procedure Summary Date: 09/10/25 Room / Location: [facility] OR [address] [place] [address] SURGERY Anesthesia Start: 0953 Anesthesia Stop: 1037 Procedure: INSERTION PORT A CATH (Chest) Diagnosis: (needed for chemotherapy) Surgeons: Jusitn Mackey MD Responsible Provider: Peter Angulo MD Anesthesia Type: MAC ASA Status: 3 Vitals: 09/10/25 1125 BP: 115/60 Pulse: 80 Resp: 11 Temp: 36.4 ??C (97.6 ??F) SpO2: 98% Patient Evaluated: PACU Patient Participation: Complete - patient participated Patient Level of Consciousness: Awake Pain Score: 1 Pain Management: Adequate Airway Patency: Patent Anesthetic Complications: No Cardiovascular Status: Hemodynamically Stable Respiratory Status: Stable/Baseline, Nonlabored Ventilation and Room Air Post-op Hydration: Euvolemic Final Anesthesia Type: MAC Does patient meet criteria to D/C from PACU?: Yes Is patient sedated pharmacologically at PACU D/C?: No No notable events documented. * Anesthesia Preprocedure Evaluation - Peter Angulo MD - 09/10/2025 8:27 AM EST Images from the original note were not included. ANESTHESIA PRE-PROCEDURE EVALUATION Vinted Procedure(s): INSERTION PORT A CATH ANESTHESIA PHYSICAL EXAM Patient summary reviewed and nursing notes reviewed. 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 Use of blood products discussed with Patient and Spouse who consented to blood products. Plan discussed with Attending and CONSUMER SALES REPRESENTATIVE. NPO Status: Date of last liquid: 09/09/25 Time of last liquid: 2100 Date of last solid: 09/09/25 Time of last solid: 1630 Past Medical History: Diagnosis Date Anemia C. 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 08/07/2025 Performed by Dennis Monson MD at [facility] DILATION CURETTAGE N/A 08/04/2025 Performed by Rocio Alexander MD at [facility] FLEXIBLE SIGMOIDOSCOPY N/A 08/07/2025 Performed by Manuel Busby MD at [facility] Allergies Allergen Reactions Latex Hives and Facial Swelling Dye Dermatitis Social History Tobacco Use Smoking Status Never Smokeless Tobacco Never Alcohol Use: Not At Risk (08/04/2025) AUDIT-C Frequency of Alcohol Consumption: Never Average Number of Drinks: Patient does not drink Frequency of Binge Drinking: Never OB History: OB History No obstetric history on file. Estimated Date of Delivery: None noted. Outpatient Meds: Current Outpatient Medications Medication Instructions acetaminophen (TYLENOL EXTRA STRENGTH) 1,000 mg, oral, Every 8 hours PRN acetaZOLAMIDE (DIAMOX) 250 mg, 2 times daily dexAMETHasone (DECADRON) 4 mg tablet Take 2 tablets (8 mg) by mouth once daily on days 2, 3 and 4. dorzolamide (TRUSOPT) 2 % ophthalmic solution 1 drop, 3 times daily famotidine (PEPCID) 20 mg, oral, 2 times daily midodrine (PROAMATINE) 5 mg tablet TAKE 1 TABLET BY MOUTH TWICE A DAY AT 8AM AND 6PM FOR 10 DAYS netarsudiL-latanoprost 0.02-0.005 % drops 1 drop, Daily ondansetron (ZOFRAN) 8 mg tablet Starting on day 3, take 1 tablet by mouth twice daily as needed for nausea or vomiting. ondansetron ODT (ZOFRAN ODT) 4 mg, oral, Every 8 hours PRN potassium chloride (K-TAB,KLOR-CON) 10 MEQ CR tablet TAKE 2 TABLETS BY MOUTH 4 TIMES A DAY FOR 7 DAYS prochlorperazine (COMPAZINE) 10 mg tablet Take 1 tablet by mouth every 6 hours as needed for nauseaor vomiting on days 1 and 2. senna (SENOKOT) 8.6 mg, oral, 2 times daily timolol (TIMOPTIC) 0.5 % ophthalmic solution 1 drop, 2 times daily Vitals: BP 119/74 Pulse 84 Temp 37.1 ??C (98.8 ??F) (Temporal) Resp 13 Ht 154.9 cm (5' 1 ) Wt 66.2 kg (146 lb) LMP (LMP Unknown) SpO2 100% BMI 27.59 kg/m?? Vent: Labs: Echo: No results found. Cath: No results found. EKG: No results found. Stress: No results found. CXR: No results found. Carotid: No results found. Risk Factors: PONV: Intermediate Risk Total Score: 2 Score Rules Female patient Non-smoker Criteria that do not apply: History of PONV and/or Motion Sickness Intended opioid administration RCRI: Low Risk: Score of 0 = [...] Plan of Treatment DateTypeDepartmentCare Team (Latest Contact Info)Oaakpwjebnr26/26/2025 8:00 AM ESTInfusion [facility] - Medical Oncology [address] [place] [phone] 10/16/2025 9:00 AM ESTOffice Visit [facility] [place] - Medical Oncology [address] [place] [phone] Melinda Coffey PA [address] [place] [address] 10/16/2025 9:30 AM ESTInfusion [facility] - Medical Oncology [address] [place] [address], [place] [phone] documented as of this encounter Goals GoalPatient Goal TypeAssociated ProblemsRecent ProgressPatient-Stated?Author return home Milagros Escobedo RN Note: Evaluation of progress towards goal: patient plans to return home with family support documented as of this encounter Visit Diagnoses Not on filedocumented in this encounter Administered Medications Medication OrderMAR ActionAction DateDoseRateSite ceFAZolin (ANCEF) IVPB 2000 mg/50 mL in iso-osmotic dextrose (40 mg/mL premix) intravenous, Administer over 30 Minutes, As needed, Starting on Wed09/10/25 at 0958, Anesthesia Intra-op Given09/10/2025 9:58 AM EST2,000 mg fentaNYL (SUBLIMAZE) injection intravenous, As needed, Starting on Wed09/10/25 at 0953, Anesthesia Intra-op Given09/10/2025 9:53 AM LRT117 mcg lactated ringers infusion 50 mL/hr, intravenous, Continuous, Starting on Wed09/10/25 at 0815, Pre-op, If fluid restriction is not indicated, infuse at a rate up to 5 mL/kg/hr not to exceed the total replacement volume (2 ml/kg/hr) from the time NPO status was initiated. Continued by Fhqbjvlwsi39/15/2025 9:53 AM EST50 mL/hrNew Bag09/10/2025 8:36 AM EST50 mL/hr50 mL/hr midazolam (VERSED) injection intravenous, As needed, Starting on Wed09/10/25 at 0953, Anesthesia Intra-op Given09/10/2025 9:53 AM EST2 mg ondansetron (PF) (ZOFRAN) injection intravenous, As needed, Starting on Wed09/10/25 at 1015, Anesthesia Intra-op Given09/10/2025 10:15 AM EST4 mg propofoL (DIPRIVAN) infusion intravenous, As needed, Starting on Wed09/10/25 at 0959, Anesthesia Intra-op Given09/10/2025 10:17 AM NIG552 rpAqici6809/10/2025 10:08 AM EYH614 mgGiven 09/10/2025 10:03 AM HSY904 mgdocumented in this encounter Additional Health Concerns AssessmentNoted TimePHQ-9 Depression Total Score: 3:45 PM EST documented as of this encounter Care Teams Team MemberRelationshipSpecialtyStart DateEnd Date Bin Sidhu MD [address] [place] [address] PCP - GeneralFamily Nsvmtsmo22/9/25documented as of this encounter
--- OUTSIDE RECORDS SUMMARY | 2025-09-18 08:49 | XMS_ITS | Encounter Summary ---
Author Organization [facility] tem Address [id number] [address] [place] [address] Care Team Providers Care Supervisor Electron Tube Processing Name Role Phone Bin Sidhu MD Primary Care Provider [phone] Encounter Details DateTypeDepartmentCare Team (Latest Contact Info)Jdwmkpjdhcr79/12/2025Telephone [facility] Gynecology Oncology, A Department of [facility] [address] [facility] [address] [place] [address] Milagros Machado RN Social History Tobacco UseTypesPacks/DayYears UsedDateSmoking Tobacco: NeverSmokeless Tobacco: NeverAlcohol UseStandard Drinks/WeekCommentsNever0 (1 standard drink = 0.6 oz pure alcohol)PHQ-2AnswerDate RecordedTotal Wcrpv05010/04/2024UDIT-CAnswerDate RecordedQ1: How often do you have a [...] InformationValueDate RecordedSex Assigned at BirthNot on fileLegal YywJofvqj95/08/2025 12:05 AM ESTGender IdentityNot on fileSexual OrientationNot on filedocumented as of this encounter Miscellaneous Notes * Telephone Encounter - Milagros Machado RN - 09/07/2025 10:24 AM EST Director Of Counterintelligence contacted patient and reviewed PET CT results. All questions answered. Patient states she is feeling well post cycle 1. Denies any nausea or vomiting but does state she is experiencing joint pain. Director Of Counterintelligence advised patient to take claritin and pepcid. Patient states she has home health nurse coming for labs on 09/18. Request for lab draw on 10/13 faxed to Home Health agency. documented in this encounter Plan of Treatment DateTypeDepartmentCare Team (Latest Contact Info)Ordybclnkro13/26/2025 8:00 AM ESTInfusion [facility] [place] [address] 10/16/2025 9:00 AM ESTOffice Visit Paola [facility] - Medical Oncology [address] [place] [phone] Melinda Coffey PA [address] [place] [address] 10/16/2025 9:30 AM ESTInfusion [facility]ola [facility]ington [facility] - Medical Oncology [address] [place] [address] documented as of this encounter [...] MemberRelationshipSpecialtyStart DateEnd Date Bin Sidhu MD [address] [place] [address] PCP - GeneralFamily Izfimjtk31/9/25documented as of this encounter
--- OUTSIDE RECORDS SUMMARY | 2025-09-18 08:49 | XMS_ITS | Clinical Summary ---
Author Organization [facility] Address [address] [place], [place] [address] Care Team Providers Care Pet Care Assistant Name Role Phone Bin Sidhu MD Primary Care Provider Allergies Active AllergyReactionsCriticalityNoted SkdpUfugzmsjHqzmrIsxmCyzs91/31/2009 Medications MedicationSigDispense QuantityRefillsLast FilledStart DateEnd DateStatus TETRACYCLINE 500 MG CAP Indications:Knee joint snyw857ctive naproxen(NAPROSYN 500 MG TAB) Indications:Knee joint pain,Knee bursitis1 PPO BID with food 60 ctive Social History Tobacco UseTypesPacks/DayYears UsedDateSmoking Tobacco: Never Assessed CommentsUnknownSex and Gender InformationValueDate RecordedSex Assigned at Not on fileLegal RgxPnzynl78/02/2012 8:21 AM ESTGender IdentityNot on fileSexual OrientationNot on file Plan of Treatment Health MaintenanceDue DateLast DoneCommentsAnxiety Fjobvdgzi80/05/1973Depression Gguqkbtgt79/05/1973Hepatitis C Laidfdpwx90/05/1973DTaP,Tdap,Td Vaccine (1 - Tdap)1974Mammogram Jfgtwwvzy52/05/1995CT Iaoovqnsebyf74/05/2000Cologuard (FIT-DNA)03/31/20009386Nsclhkuhnfs72/05/2000Colorectal Cancer Npxuyjwnj46/05/2000 Diabetes Lfmrqxgwd92/05/2000Fecal Occult Blood2000Lipid Screening 03/31/20003408Dgxxpkkbmulbs51/05/2000Pneumococcal Vaccine: 50+ (1 of 1 - PCV) 2005Shingrix Vaccine (1 of 2)2005Bone Density Helcoakmy23/05/2020 Advance Directive Rvqsjzzmbn34/01/2025ovid-19 Vaccine ( - 2024-26 season) 2025Influenza Vaccine (#1)2025RSV Vaccine (1 - 1-dose 75+ series) 2030 Insurance Care Teams Team MemberRelationshipSpecialtyStart DateEnd Date Bin Sidhu MD [address] [place] [address] [facility]05/10/09
--- OUTSIDE RECORDS SUMMARY | 2025-09-18 08:49 | XMS_ITS ---
Author Organization [place] tem Address [id number] [address] [place] [address] Care Team Providers Care Document Design Specialist Name Role Phone Bin Sidhu MD Primary Care Provider [phone] Active Problems ProblemNoted DateDiagnosed DateEndometrial cancer determined [...] NORMAN) Treatment MedicationsCurrent Day (Day 1, Cycle 2 - Planned for 09/21/2025)Next Day (Day 1, Cycle 3 - Planned for 10/12/2025)* * CARBOplatin (PARAPLATIN) chemo IVPB (by AUC) piggyback * PACLItaxel (TAXOL) chemo IVPB piggyback * pembrolizumab (KEYTRUDA) * pembrolizumab (KEYTRUDA) chemo IVPB piggyback * * CARBOplatin (PARAPLATIN) in sodium chloride 0.9 % 250 mL chemo IVPB * PACLitaxeL (TAXOL) 300 mg in sodium chloride 0.9 % (non-pvc) 500 mL chemo IVPB * pembrolizumab (KEYTRUDA) 200 mg in sodium chloride 0.9 % 100 mL chemo IVPB * * CARBOplatin (PARAPLATIN) in sodium chloride 0.9 % 250 mL chemo IVPB * PACLitaxeL (TAXOL) 300 mg in sodium chloride 0.9 % (non-pvc) 500 mL chemo IVPB * pembrolizumab (KEYTRUDA) 200 mg in sodium chloride 0.9 % 100 mL chemo IVPB Past Treatment and Therapy Plans No past plan information found. Lifetime Dose Tracking * ChemicalLifetime DoseAutomatic EntryManual DxxqqPbxdarsmgqd44.14 mGy15.14 mGy0 mGy Resolved Problems ProblemNoted DateDiagnosed DateResolved DateVaginal ehqftewp32 Pelvic massVagina jterfazu03
--- OUTSIDE RECORDS SUMMARY | 2025-09-18 08:49 | XMS_ITS | Clinical Summary ---
Author Organization [facility] Address [address] [place] [address] Care Team Providers Care Donor Relations Officer Name Role Phone Unavailable Primary Care Provider Unavailabl e Social History Tobacco UseTypesPacks/DayYears UsedDateSmoking Tobacco: Never Assessed CommentsUnknownSex and Gender InformationValueDate RecordedSex Assigned at Not on fileLegal XmdJxewsa15/15/2023 11:23 PM EDTGender IdentityNot on file Sexual OrientationNot on file Last Filed Vital Signs Vital SignReadingTime TakenCommentsBlood Pressure--Pulse--Temperature-- Respiratory Rate--Oxygen Saturation--Inhaled Oxygen Concentration--Oezkgs57.9 kg (143 lb)09/29/2021 12:00 PM JNMMdhjei049.5 cm (5' 2 )09/29/2021 12:00 PM ESTBody Mass Index26.16009/29/2021 12:00 PM EST Plan of Treatment Not on [place] [address]
--- OUTSIDE RECORDS SUMMARY | 2025-09-18 08:49 | XMS_ITS | Encounter Summary ---
Author Organization [facility] tem Address [facility][id number] [address] [place] [address] Care Team Providers Care Children Counselor Name Role Phone Bin Sidhu MD Primary Care Provider [phone] Encounter Details DateTypeDepartmentCare Team (Latest Contact Info)Ziuvyonmugw31/09/2025Orders Only [facility] Gynecology Oncology, A Department of [facility] [address] [facility] [address] [place] [address] Christi Tsang CMA Endometrial cancer determined by uterine biopsy ([facility]) Social History Tobacco UseTypesPacks/DayYears UsedDateSmoking Tobacco: NeverSmokeless Tobacco: NeverAlcohol UseStandard Drinks/WeekCommentsNever0 (1 standard drink = 0.6 oz pure alcohol)PHQ-2AnswerDate RecordedTotal Coaik92510/04/2024UDIT-CAnswerDate RecordedQ1: How often do you have a [...] InformationValueDate RecordedSex Assigned at BirthNot on fileLegal OvjHmcizf59/08/2025 12:05 AM ESTGender IdentityNot on fileSexual OrientationNot on filedocumented as of this encounter Plan of Treatment DateTypeDepartmentCare Team (Latest Contact Info)Wiyhwrqblol81/26/2025 8:00 AM ESTInfusion [facility] - Medical Oncology [address] [place] [phone] 10/16/2025 9:00 AM ESTOffice Visit [facility]ola [facility] - Medical Oncology [address] [place] [phone] Melinda Coffey PA [address] [place] [address] 10/16/2025 9:30 AM ESTInfusion [facility]ola L [facility] - Medical Oncology [address] [place] [phone] documented as of this encounter Goals GoalPatient Goal TypeAssociated ProblemsRecent ProgressPatient-Stated?Author return home Milagros Escobedo RN Note: Evaluation of progress towards goal: patient plans to return home with family support documented as of this encounter Procedures Procedure NamePriorityDate/TimeAssociated DiagnosisCommentsCBC WITH AUTO YSRNVHNIEKZSQJTI08/08/2025 12:05 PM EST Endometrial cancer determined by uterine biopsy ([facility] COMPREHENSIVE METABOLIC YESDCEJAF60/08/2025 12:05 PM EST Endometrial cancer determined by uterine biopsy ([facility]) documented in this encounter Results * Comprehensive metabolic panel (09/03/2025 12:05 PM EST)ComponentValueRef Range Test MethodAnalysis TimePerformed AtPathologist SignatureExternal Albumin2.8 External Alt Zcid41Nhusgojv Anion Gap10.7External Gze15Wahprtci Blood Urea Nitrogen Bun23.0External Calcium Ca8.9External Rpeesbul400Qwvtnxxm Co2 / Carbon Xnubkjh15.3External Creatinine0.46External Gfr Amer>60External Gfr Non Amer>60External Alkaline Dwwrribjstm41Pnqasirj Glucose Fasting Or Random (Fbs)118External Potassium K5.0External Sodium Qa166Kcwrz Bilirubin 0.5External Total Protein6.2BUN/Creatinine Ratio50.2Tveyrtmx9.4A/G Ratio0.8 Specimen (Source)Anatomical Location / LateralityCollection Method / Volume Collection TimeReceived TimeBloodVenous blood / Wpjmsyp0909/03/2025 12:05 PM EST Narrative Authorizing ProviderResult TypeResult StatusCourtblane Coffey [facility] BLOOD ORDERABLESFinal Result * CBC auto differential (09/03/2025 12:05 PM EST)ComponentValueRef RangeTest MethodAnalysis TimePerformed AtPathologist SignatureExternal Wbc Count9.6 External Rbc Count3.43External Hemoglobin9.5External Hematocrit Hct30.8 External Mcv89.8External MCH27.7External Mchc30.8External Rdw15.9External Platelet Lumoh944Sjmyqari Mpv10.9External Seg Pmiqbuyazy62.0External Lymphocyte, Atypical2.0External Absolute Lymphocyte0.19External Monocytes0.0 External % Basophils0.0External Absolute Neutrophils9.40External Absolute Lymphocyte0.19External Absolute Monocytes0.00External Absolute Basophil0.00% eosinophils0.0External Absolute Eosinophil0.000Specimen (Source)Anatomical Location / LateralityCollection Method / VolumeCollection TimeReceived Time BloodVenous blood / Jmidemn8709/03/2025 12:05 PM EST Narrative Authorizing ProviderResult TypeResult StatusCourtblane [facility] BLOOD ORDERABLESFinal Result documented in this encounter Visit Diagnoses Diagnosis Endometrial cancer determined by uterine biopsy ([facility]) documented in this encounter Additional Health Concerns AssessmentNoted TimePHQ-9 Depression Total Score: 3:45 PM EST documented as of this encounter Care Teams Team MemberRelationshipSpecialtyStart DateEnd Date Bin Sidhu MD [address] [place] [address] PCP - GeneralFamily Lmveeahf37/9/25documented as of this encounter
--- OUTSIDE RECORDS SUMMARY | 2025-09-18 08:49 | XMS_ITS | Encounter Summary ---
Author Organization [employer] [facility] tem Address [facility]-[id number] [address] [place] [address] Care Team Providers Care Scrum Master Name Role Phone Bin Sidhu MD Primary Care Provider Encounter Details DateTypeDepartmentCare Team (Latest Contact Info)Fbczepmwdjk65/23/2025Travel Social History Tobacco UseTypesPacks/DayYears UsedDateSmoking Tobacco: NeverSmokeless Tobacco: NeverAlcohol UseStandard Drinks/WeekCommentsNever0 (1 standard drink = 0.6 oz pure alcohol)PHQ-2AnswerDate RecordedTotal Jzntn31210/04/2024UDIT-CAnswerDate RecordedQ1: How often do you have a [...] InformationValueDate RecordedSex Assigned at BirthNot on fileLegal XrlZdncfb24/08/2025 12:05 AM ESTGender IdentityNot on fileSexual OrientationNot on filedocumented as of this encounter Plan of Treatment DateTypeDepartmentCare Team (Latest Contact Info)Szaukdzqqnh39/26/2025 8:00 AM ESTInfusion [facility] [address] [place] [phone] 10/16/2025 9:00 AM ESTOffice Visit [facility] - Medical Oncology [address] [place] [phone] Melinda Coffey PA [address] [place] [address] 10/16/2025 9:30 AM ESTInfusion [facility]ola [facility] - Medical Oncology [address] [place] [phone] documented as of this encounter Goals GoalPatient [...] MemberRelationshipSpecialtyStart DateEnd Date Bin Sidhu MD [address] [place] [id number] PCP - GeneralFamily Exezcfjv08/9/25documented as of this encounter
--- OUTSIDE RECORDS SUMMARY | 2025-09-18 08:49 | XMS_ITS | Encounter Summary ---
Author Organization [facility] tem Address [id number] [address] [place] [address] Care Team Providers Care Case Aide Name Role Phone Bin Sidhu MD Primary Care Provider [phone] Encounter Details DateTypeDepartmentCare Team (Latest Contact Info)Ihxcpybyect76/10/2025Orders Only [facility] Oncology, A Department of [facility] [address] [facility] [address] [place] [address] Christi Tsang CMA Endometrial cancer determined by uterine biopsy ([facility]) Social History Tobacco UseTypesPacks/DayYears UsedDateSmoking Tobacco: NeverSmokeless Tobacco: NeverAlcohol UseStandard Drinks/WeekCommentsNever0 (1 standard drink = 0.6 oz pure alcohol)PHQ-2AnswerDate RecordedTotal Ohmxk50510/04/2024UDIT-CAnswerDate RecordedQ1: How often do you have a [...] InformationValueDate RecordedSex Assigned at BirthNot on fileLegal FkiYraavf29/08/2025 12:05 AM ESTGender IdentityNot on fileSexual OrientationNot on filedocumented as of this encounter Plan of Treatment DateTypeDepartmentCare Team (Latest Contact Info)Werxwguvymd61/26/2025 8:00 AM ESTInfusion [facility] [address] [place] [phone] 10/16/2025 9:00 AM ESTOffice Visit [facility] - Medical Oncology [address] [place] [phone] Melinda Coffey PA [address] [place] [address] 10/16/2025 9:30 AM ESTInfusion [facility]ola L [facility] - Medical Oncology [address] [place] [phone] documented as of this encounter Goals GoalPatient Goal TypeAssociated ProblemsRecent ProgressPatient-Stated?Author return home Milagros Escobedo RN Note: Evaluation of progress towards goal: patient plans to return home with family support documented as of this encounter Procedures Procedure NamePriorityDate/TimeAssociated DiagnosisCommentsPET CT SKULL TO THIGH STAT110/28/2024 4:26 PM EST Endometrial cancer determined by uterine biopsy ([facility]) documented in this encounter Results * PET CT skull to thigh (08/27/2025 4:26 PM EST)Anatomical RegionLaterality ModalityNuc MedN/APositron Emission Tomography (PET)Specimen (Source) Anatomical Location / LateralityCollection Method / VolumeCollection Time Received Time08/27/2025 4:26 PM EST Narrative Authorizing ProviderResult TypeResult StatusAleshira KAPOOR PET ORDERABLES Final Result documented in this encounter Visit Diagnoses Diagnosis Endometrial cancer determined by uterine biopsy ([facility]) documented in this encounter Additional Health Concerns AssessmentNoted TimePHQ-9 Depression Total Score: 3:45 PM EST documented as of this encounter Care Teams Team MemberRelationshipSpecialtyStart DateEnd Date Bin Sidhu MD [address] [place] [address] PCP - GeneralFamily Sbvclfqm74/9/25documented as of this encounter
--- OUTSIDE RECORDS SUMMARY | 2025-09-18 08:49 | XMS_ITS | Clinical Summary ---
Author Organization [employer] s tem Address [id number] [address] [place] [address] Care Team Providers Care Condenser Operator Name Role Phone Bin Sidhu MD Primary Care Provider [phone] Allergies Active AllergyReactionsCriticalityNoted KjsbCnvszhkeAbdFbqjqdooraVfc54/08/2025 LatexHives,Facial NzknmnsvSrryrg71/08/2025 Medications MedicationSigDispense QuantityRefillsLast FilledStart DateEnd DateStatus dorzolamide [...] tablet Indications:Endometrial cancer determined by uterine biopsy ([facility])Take 2 tablets (8 mg) by mouth once daily on days 2, 3 and 4. 60 tablet 5Active ondansetron (ZOFRAN) 8 mg tablet Indications:Endometrial cancer determined by uterine biopsy ([facility])Starting on day 3, take 1 tablet by mouth twice daily as needed for nausea or vomiting. 60 tablet 5Active prochlorperazine (COMPAZINE) 10 mg tablet Indications:Endometrial cancer determined by uterine biopsy ([facility])Take 1 tablet by mouth every 6 hours as needed for nausea or vomiting on days 1 and 2. 60 tablet 5Active ondansetron ODT (ZOFRAN ODT) 4 mg disintegrating tablet Indications:Endometrial cancer ([facility])Dissolve 1 tablet (4 mg total) on tongue every 8 (eight) hours as needed for nausea or vomiting. 20 tablet 5Active midodrine (PROAMATINE) 5 mg tablet TAKE 1 TABLET BY MOUTH TWICE A DAY AT 8AM AND 6PM FOR 10 DAYS5Active potassium chloride (K-TAB,KLOR-CON) 10 MEQ CR tablet TAKE 2 TABLETS BY MOUTH 4 TIMES A DAY FOR 7 DAYS5Active acetaminophen (TYLENOL EXTRA STRENGTH) 500 mg tablet Take 2 tablets (1,000 mg total) by mouth every 6 (six) hours. 30 tablet 5Active ibuprofen (MOTRIN) 600 mg tablet Take 1 tablet (600 mg total) by mouth every 6 (six) hours. 30 tablet 5Active nystatin (MYCOSTATIN) powder Indications:Yeast dermatitisApply 1 Application topically 3 (three) times a day. 30 g 5Active clobetasoL (TEMOVATE) 0.05 % ointment Indications:Yeast dermatitisApply 1 Application topically in the morning and 1 Application before bedtime. 30 g 5Active lidocaine-prilocaine (EMLA) cream Indications:Endometrial cancer determined by uterine biopsy (CMS-HCC), Port-A-Cath in placeApply 1 Application topically as needed for pain (Port Access) for up to 12 days. Apply 2.5 grams to port site one hour prior to access prn. Cover with occlusive dressing as directed. 30 g 5110/25/2024Expired potassium chloride (KLOR-CON) 20 mEq packet Take 1 packet (20 mEq total) by mouth in the morning and 1 packet (20 mEq total) at noon and 1 packet (20 mEq total) in the evening and 1 packet (20 mEq total) before bedtime.09/10/2025Discontinued(Alternate therapy) midodrine (PROAMATINE) 10 mg tablet Take 0.5 tablets (5 mg total) by mouth 3 (three) times a day.09/10/2025 Discontinued(Alternate therapy) Active Problems ProblemNoted DateDiagnosed DateEndometrial cancer determined by uterine biopsy 08/08/2025 Cancer Staging: Pathologic stage from 08/07/2025:FIGO Stage IIIB2, calculated as Stage Unknown (pT3b, pNX) - Unsigned Resolved Problems ProblemNoted DateDiagnosed DateResolved DateVaginal tcpvgjef73/ Pelvic massVagina wqztwawc07 Encounters DateTypeDepartmentCare QkyeGqwvvjrhkpm84/23/9296Dlagdt74/15/2025 9:53 AM EST Anesthesia Event [facility] [address] [place] [address] Peter Angulo MD 09/10/2025 9:30 AM EST - 09/10/2025 10:30 AM ESTSurgery [facility] [address] [place] [address] Justin Mackey MD INSERTION PORT A CATH [[id number] (CPT??)]09/10/2025 7:30 AM EST - 09/10/2025 11:41 AM ESTHospital Encounter [facility] [address] [address] Justin Mackey MD Discharge Disposition: Home09/10/20252654Bjmfqe77/12/2025Telephone [facility] Gynecology Oncology, A Department of [place] [address] [facility] [address] Milagros Machado, JORDYN 09/05/2025Orders Only [facility] Gynecology Oncology, A Department of [place] [address] [place] [address] Christi Tsang, BANKRUPTCY MANAGER Endometrial cancer determined by uterine biopsy ([facility])09/04/2025Orders Only [facility] Gynecology Oncology, A Department of [address] [facility] [address] Christi Tsang, BANKRUPTCY MANAGER Endometrial cancer determined by uterine biopsy ([facility])09/03/2025 2:15 PM EST Procedure visit [facility] - Pre Admit [address] [place] [address] 08/31/2025 8:30 AM ESTInfusion [facility] - [facility] [address] [place] [phone] Endometrial cancer determined by uterine biopsy ([facility]) (Primary Dx)08/31/2025 Social Work [facility] - Medical Oncology [address] [place] [phone] Génesis Isaac LSW 08/31/2025Orders Only [facility]cology, A Department of [facility] [address] [place] [address] Sherry Cuellar MD 08/31/2025Orders Only [facility] Gynecology Oncology, A Department of [facility] [address] [place] [address] Milagros Machado RN 08/31/2025Orders Only [facility], A Department of [facility] [address] [facility] [place] [address] Ref Prov, Not In System Endometrial cancer determined by uterine biopsy ([facility])08/31/2025Documentation [facility] - Medical Oncology [address] [place] [address] Lynn Rangel RN 08/31/20257521Exaofs52/04/2025Orders Only [facility] Gynecology Oncology, A Department of [facility] [address] [facility] [place] [address] Rocio Alexander MD 08/29/2025Orders Only [facility] Gynecology Oncology, A Department of [facility] [address] [facility] [place] [address] Milagros Machado RN Endometrial cancer determined by uterine biopsy ([facility]) (Primary Dx)08/28/2025 Telephone [facility] Physicians General Surgery [address] [place] [phone] Regina Zarate RMA 08/27/2025 3:30 PM ESTTelemedicine [facility] Gynecology Oncology, A Department of [facility] [address] [facility] [place] [address] Annita Patton, BUHR DRESSER-AIRPLANE CABIN ATTENDANT Endometrial cancer determined by uterine biopsy ([facility]) (Primary Dx); Encounter for chemotherapy vzejxaeyml66/01/0862Ifbeao45/26/2025Telephone [facility] Gynecology Oncology, A Department of [facility] [address] [facility] [place] [address] Desmond Martin, JORDYN 08/21/2025Tumor Conference [facility] Gynecology Oncology, A Department of [facility] [address] [facility] [place] [address] Annita Patton, BUHR DRESSER-AIRPLANE CABIN ATTENDANT 08/20/2025Hospital Encounter [facility] - Surgery [address] [facility] [place] [phone] Justin Mackey MD 08/17/2025Telephone [facility] Gynecology Oncology, A Department of [place] [address] [place] [phone] Milagros Machado, JORDYN 08/17/2025Telephone [facility] General Surgery [address] [place] [phone] Jacquiepastora , [facility] 08/16/2025 3:00 PM ESTProcedure visit [facility] - Pre Admit [address] [facility] [place] [phone] Preop examination (Primary Dx); Anemia, unspecified type08/16/20257630Toruvy25/19/2025Telephone [facility] Gynecology Oncology, A Department of [place] [address] [place] [phone] Milagros Machado, JORDYN 08/14/2025Telephone [facility] Gynecology Oncology, A Department of [address] [place] [phone] Christi Tsang CMA 08/14/2025Orders Only [facility] Gynecology Oncology, A Department of [facility] [address] [place] [phone] Milagros Machado, JORDYN Endometrial cancer determined by uterine biopsy ([facility]) (Primary Dx)08/14/2025 Orders Only [facility] - Medical Oncology [address] [place] [phone] Melinda Coffey PA Post-operative nausea and vomiting (Primary Dx); Pelvic mass; Endometrial cancer ([facility])08/13/2025Telephone [facility] Gynecology Oncology, A Department of [facility] [address] [place] [address] Milagros Machado RN 08/10/2025Orders Only [facility] Gynecology Oncology, A Department of [address] [place] [phone] Desmond Martin RN 08/10/2025Telephone [facility] Gynecology Oncology, A Department of [address] [place] [phone] Milagros Machado RN 08/09/2025Telephone [facility] [address] [place] [phone] Regina Zarate RMA 08/08/2025Orders Only [facility] Gynecology Oncology, A Department of [address] [place] [address] Milagros Machado RN Endometrial cancer determined by uterine biopsy ([facility]) (Primary Dx)08/07/2025 1:30 PM ESTAnesthesia Event [facility] - Surgery [address] [place] [phone] Mahendra Rico MD Roberts, Alyssa, [facility] 08/07/2025 12:30 PM EST - 08/07/2025 3:[address] [phone] Dennis Monson MD DAVINC HYSTERECTOMY SALPINGO OOPHORECTOMY/RADICAL INTRAPERITONEAL TUMOR QNFUXWWKV53/11/3189Cksnrs03/10/2025Telephone [facility] Gynecology Oncology, A Department of [address] [place] [address] Rocio Alexander MD Baiyejayh63/09/2025Orders Only [facility] [place] [address] Transcribe, Orders Support User Pain (Primary Dx)08/04/2025 9:37 AM ESTAnesthesia Event [facility] - Surgery [address] [place] [address] Franklin Ramos MD Rayle, Marissa, APRN-AUTOMOTIVE TEACHER 08/04/2025 8:30 AM EST - 08/04/2025 9:40 AM ESTSurgery [facility] - Surgery [address] [place] [address]. [place] [address] Rocio Alexander MD DILATION CURETTAGE [[id number] (CPT??)]08/04/2025 3:32 AM EST - 08/09/2025 5:49 PM ESTHospital Encounter [facility] - GEN [address] [place] [phone] Rocio Alexander MD Endometrial cancer determined by uterine biopsy ([facility]) (Primary Dx); Pelvic mass; Limited mobility; Nausea Discharge Disposition: Home08/04/20252286Fhjlkt88/06/2025 7:10 PM ESTAncillary Procedure [facility] [address] [place] [phone] Pain08/02/2025 6:05 PM ESTAncillary Procedure [facility] [address] [place] [phone] Painfrom Last 3 Months Immunizations No known immunizations Family History Medical HistoryRelationNameCommentsCancerFatherCancerMotherRelationNameStatus CommentsFatherDeceasedMotherDeceased Social History Tobacco UseTypesPacks/DayYears UsedDateSmoking Tobacco: NeverSmokeless Tobacco: Never Tobacco Cessation:Counseling Given: Not Answered Alcohol UseStandard Drinks/WeekCommentsNever0 (1 standard drink = 0.6 oz pure alcohol)PHQ-2AnswerDate RecordedTotal Hmasx14610/04/2024UDIT-CAnswerDate Recorded Q1: How often do you have a drink containing alcohol?Never08/04/2025Q2: How many drinks containing alcohol do you have on a typical day when you are drinking? Patient does not drink08/04/2025Q3: How often do you have six or more drinks on one occasion?Never08/04/2025Overall Financial Resource Strain (CARDIA)AnswerDate RecordedHow hard is it for you to pay for the very basics like food, housing, medical care, and heating?Not hard at all08/31/2025PRAPARE - Transportation AnswerDate RecordedIn the past 12 months, has lack of transportation kept you from medical appointments or from getting medications?No08/31/2025In the past 12 months, has lack of transportation kept you from meetings, work, or from getting things needed for daily living?No08/31/2025HC UtilitiesAnswerDate RecordedIn the past 12 months has the electric, gas, oil, or water [employer] threatened to shut off services in your home?No08/04/2025Housing InstabilityAnswerDate RecordedAre you worried or concerned that in the next two months you may not have stable housing that you own, rent or stay in as a part of a household?No 08/31/2025Hunger ScreeningAnswerDate RecordedWithin the past 12 months we worried whether our food would run out before we got money to buy more.Never True08/31/2025Within the past 12 months the food we bought just didn't last and we didn't have money to get more.Never True08/31/2025CommentsNoSex and Gender InformationValueDate RecordedSex Assigned at BirthNot on fileLegal Sex Lxmnpy4908/04/2025 12:05 AM ESTGender IdentityNot on fileSexual OrientationNot on file Last Filed Vital Signs Vital SignReadingTime TakenCommentsBlood Prlplguh204/6009/10/2025 11:25 AM EST Oatrl372009/10/2025 11:25 AM USXPqfrjdpgaid66.4 ??C (97.6 ??F)09/10/2025 11:25 AM ESTRespiratory Lnat233411/11/2024 11:25 AM ESTOxygen Psxdrhxqhr01%09/10/2025 11:25 AM ESTInhaled Oxygen Concentration--Pulowi61.2 kg (146 lb)09/10/2025 8:24 AM EST Xxddld478.9 cm (5' 1 )09/10/2025 8:24 AM ESTBody Mass Index27.5909/10/2025 8:24 AM EST Plan of Treatment DateTypeDepartmentCare Team (Latest Contact Info)Uszcqpqizev44/26/2025 8:00 AM ESTInfusion [facility] - Medical Oncology [address] [place] [phone] 10/16/2025 9:00 AM ESTOffice Visit [facility] - Medical Oncology [address] [place] [phone] Melinda Coffey PA [address] [place] [address] 10/16/2025 9:30 AM ESTInfusion [facility] On[facility] [address] [place] [phone] Health MaintenanceDue DateLast DoneCommentsAdult BMI Follow Up Plan1973 DTaP,Tdap and Td Vaccines (1 - Tdap)1974Zoster (Shingles) Vaccine (1 of 2) 1974RSV ( or age 60+ yrs) (1 - Risk 50-74 years 1-dose series) 2005Influenza Klfpqpr1905/28/2025Depression Biswmahdy64 Fall Risk Nopdxthoj62dult BMI Kpfaezqmj79/ Tobacco Ghlaeqgzs47 Goals GoalPatient Goal TypeAssociated ProblemsRecent ProgressPatient-Stated?Author return home Milagros Escobedo RN Note: Evaluation of progress towards goal: patient plans to return home with family support Medical Devices ImplantedTypeAreaManufacturerDevice IdentifierShelf Expiration DateModel / Serial / LotPort Powerport Isp Mri Argd 8fr 1 Lum Atch Cth Opn Sut Plg - Sna - [id number] Implanted:Qty: 1 on 09/10/2025 by Justin Mackey [facility]PortRight: ChestBard Peripheral Nieqsdii83/30/[id number] / NA / [id number] Procedures Procedure NamePriorityDate/TimeAssociated DiagnosisCommentsFL FLUORO GUIDE VASC DEVICE EKZYLDHMIAxsepex90/15/2025 11:07 AM EST XR CHEST 1 WPJMXJ6009/10/2025 10:57 AM EST IA INSJ TUNNELED CTR VAD W/SUBQ PORT AGE 5 YR/>09/10/2025 9:56 AM EST needed for chemotherapy BEDSIDE TAMNTJHLoimrwu32/15/2025 8:56 AM EST [place] CANCER SEEK??? + ADDITIONAL EBOJEOkgmrcx53/13/2025 7:34 PM EST Endometrial cancer determined by uterine biopsy ([facility]) COMPREHENSIVE METABOLIC EOGGJNEOK52/08/2025 12:05 PM EST Endometrial cancer determined by uterine biopsy ([facility]) CBC WITH AUTO PKOUMUWBIIAKSRAI56/08/2025 12:05 PM EST Endometrial cancer determined by uterine biopsy ([facility]) T4, JCWPRSTT85/05/2025 8:07 AM EST Endometrial cancer determined by uterine biopsy ([facility]) CBC WITH AUTO NJQKLFIVGSDEOBDL88/05/2025 8:07 AM EST Endometrial cancer determined by uterine biopsy ([facility]) CBC AUTO DIFF CANCER CDFRETGptygdh97/05/2025 8:00 AM ESTCOMPREHENSIVE METABOLIC DLZVFDQVK92/04/2025 8:05 AM EST Endometrial cancer determined by uterine biopsy ([facility]) CBC AUTO DIFF CANCER UCLBSJDavcnbj63/04/2025 8:04 AM ESTCREATININE, SERUMRoutine 08/30/[address] SKULL TO XJMSYYWGU27/01/2025 4:26 PM EST Endometrial cancer determined by uterine biopsy ([facility]) BASIC METABOLIC WUDFFUwaiith56/20/2025 3:52 PM EST Preop examination CBC WITH AUTO XDNXGHJSQHCMHzblqbs04/20/2025 3:52 PM EST Preop examination Anemia, unspecified type CROSSMATCH XWFXfplwar65/15/2025 12:37 AM EST CBC WITH AUTO LJTFTLVFCJVUXjdplcw84/13/2025 5:32 AM EST COMPREHENSIVE METABOLIC NRPCVOseixyb63/13/2025 5:32 AM EST CBC WITH AUTO PMCWHUONROWBEvavzdh93/12/2025 5:58 AM EST TYPE AND TAPTEHNywnodm12/12/2025 5:57 AM EST COMPREHENSIVE METABOLIC NIBSUDgarwqk11/12/2025 5:57 AM EST SURGICAL EWTRNXDNZBrydsel73/11/2025 3:42 PM EST NON-GYNECOLOGIC WLFAKFMTJspkzgw07/11/2025 2:44 PM EST TRANSFUSE RED BLOOD CUYLYJzazsnd65/11/2025 2:23 PM ESTPR AN ELECTIVE ENDOTRACHEAL VHBEQWDomymxa86/11/2025 1:44 PM EST FLEXIBLE XNKSNROMOGOEH09/11/2025 1:30 PM EST ENDOMETRIAL CANCER Case Notes [facility] EPIC 2W MOVE UP TO 1130 Special Needs MOVE UP TO 1130 DAVINCI HYSTERECTOMY SALPINGO WMGAXKWZTVGS00/11/2025 1:30 PM EST ENDOMETRIAL CANCER Case Notes [facility] EPIC 2W MOVE UP TO 1130 Special Needs MOVE UP TO 1130 COMPREHENSIVE METABOLIC UVGJGItabznd83/11/2025 5:40 AM EST CBC WITH AUTO VKCZZJIWAEZRWqqietr18/11/2025 5:40 AM EST CROSSMATCH JCYMvkbotr18/10/2025 6:37 AM ESTCOMPREHENSIVE METABOLIC PANELRoutine 08/06/2025 6:23 AM EST CBC WITH AUTO OOMSZNXGEQZNJilkhye75/10/2025 6:23 AM EST COMPREHENSIVE METABOLIC YSYVWQumcnpe07/09/2025 8:[address] CHEST W QVUDIeuailp20/09/2025 12:11 PM EST CBC WITH AUTO POAKVJHLCYAECbemlbb18/09/2025 4:02 AM EST COMPREHENSIVE METABOLIC CFJZWWpuqsty24/09/2025 4:02 AM EST CBC WITH AUTO WGGOIDJDSKCHVzjqbaq87/08/2025 12:18 PM EST SURGICAL FJAYEACELSlogsac66/08/2025 10:06 AM EST TRANSFUSE RED BLOOD ZDGLSQhyuqgi55/08/2025 10:00 AM ESTPR AN ELECTIVE ENDOTRACHEAL VVNZYGManonoi34/08/2025 9:48 AM EST IA HYSTEROSCOPY,W/ENDO BX08/04/2025 9:37 AM EST vaginal bleed TRANSFUSE RED BLOOD KLCRFIvbyuph82/08/2025 8:39 AM ESTREPEATED ABORHRoutine 08/04/2025 8:27 AM ESTREPEATED YRBIAUlsnuxp69/08/2025 7:41 AM EST CROSSMATCH PFUVpkrtuc53/08/2025 5:30 AM EST TYPE AND RXUPPGJdnduun84/08/2025 5:30 AM EST EZRIWSMLUHLyjkuoe70/08/2025 5:30 AM EST IBIOFbvwawq17/08/2025 5:30 AM EST PROTIME & FQOEtxtydh38/08/2025 5:30 AM EST CBC WITH AUTO OMLPUJOZLXKEFsyqlwb05/08/2025 5:30 AM EST COMPREHENSIVE METABOLIC MALLPIjovpjv39/08/2025 5:30 AM EST PULSE OXIMETRY, KNFECiygmhg86/08/2025 3:38 AM ESTCT ABDOMEN AND PELVIS W CONT Ncpiiow0108/02/2025 7:10 PM EST Pain US DUPLEX ABD PELVIS KCWXMpceopj71/06/2025 6:05 PM EST Pain from Last 3 Months Results * Fluoroscopy guidance vascular device operative [...] 99 mg/dL 09/10/2025 8:59 AM ESTPROMEDICA KAISER PERMANENTE MEDICAL CENTERpecimen (Source) Anatomical Location / LateralityCollection Method / VolumeCollection Time Received Timearterial/igkxfenfa33/15/2025 8:56 AM EST09/10/2025 8:59 AM EST Narrative Authorizing ProviderResult TypeResult Kelsi Mackey MDPOINT OF CARE TEST ORDERABLESFinal ResultPerforming OrganizationAddressCity/State/ZIP Code Phone Number [facility] [address] [facility] [place] [address], * [place] Cancer Seek??? + Additional Tests (09/08/2025 7:34 PM EST)Component ValueRef RangeTest MethodAnalysis TimePerformed AtPathologist SignatureCARIS PD-L1 (22C3)Auslylbj05/13/2025 7:34 PM ESTCARIS LIFE SCIENCESCARIS Mismatch Repair StatusDeficient (Loss)09/08/2025 7:34 PM ESTCARIS LIFE SCIENCESCARIS Genomic Loss of Heterozygosity - ExomeLow 1%09/08/2025 7:34 PM ESTCARIS EDEL BERTRANDCARIS Microsatellite Instability - JwytiJott10/13/2025 7:34 PM EST KRISTEN BERTRANDCARIS Tumor Mutational Gays - ExomeHigh 10 per Mb 09/08/2025 7:34 PM ESTCARIS LIFE SCIENCESCARIS Estrogen ReceptorPositive 09/08/2025 7:34 PM ESTCARIS EDEL BERTRANDCARIS Her2/DbfPynsdgvf88/13/2025 7:34 PM ESTCARIS EDEL BERTRANDCARIS Progesterone LqsjnvczZdonfrnb69/13/2025 7:34 PM ESTCARIS EDEL BERTRANDCARIS CJG0Vatn of nuclear yfsdosqdcb92/13/2025 7:34 PM ESTCARIS EDEL BERTRANDCARIS ZUT6Fijlhw nuclear mvrfpneplo06/13/2025 7:34 PM ESTCARIS EDEL BERTRANDCARIS GPS3Fuuztz nuclear ysvyvvnrjt67/13/2025 7:34 PM ESTCARIS EDEL BERTRANDCARIS ZPE1Xnbe of nuclear vsntwgimhe06/13/2025 7:34 PM ESTKRISTEN BERTRANDCARIS HLA-A - ExomeA*01:01,A*02:01111/09/2024 7:34 PM EST KRISTEN BERTRANDCARIS HLA-B - ExomeB*08:01,B*40:01111/09/2024 7:34 PM EST KRISTEN BERTRANDCARIS HLA-C - ExomeC*03:04,C*07: 7:34 PM EST KRISTEN BERTRANDSpecimen (Source)Anatomical Location / LateralityCollection Method / VolumeCollection TimeReceived TimeTissue specimen (specimen) 09/01/2025 9:08 AM EST Narrative This result has genomic variants that were not included in this document. Authorizing ProviderResult TypeResult StatusKassidnolan Patton APRN-CNPGENETIC TESTINGFinal ResultPerforming OrganizationAddressCity/State/ZIP CodePhone Number KRISTEN BERTRAND [address] [address], * CBC auto differential (09/03/2025 12:05 PM EST) Only the most recent of10 resultswithin the time period is included. ComponentValueRef RangeTest MethodAnalysis TimePerformed AtPathologist Signature External Wbc Count9.6External Rbc Count3.43External Hemoglobin9.5External Hematocrit Hct30.8External Mcv89.8External MCH27.7External Mchc30.8External Rdw 15.9External Platelet Tynbr422Lcldvsoz Mpv10.9External Seg Erdjufccam65.0 External Lymphocyte, Atypical2.0External Absolute Lymphocyte0.19External Monocytes0.0External % Basophils0.0External Absolute Neutrophils9.40External Absolute Lymphocyte0.19External Absolute Monocytes0.00External Absolute Basophil 0.00% eosinophils0.0External Absolute Eosinophil0.000Specimen (Source)Anatomical Location / LateralityCollection Method / VolumeCollection TimeReceived TimeBlood Venous blood / Fieewad7609/03/2025 12:05 PM EST Narrative Authorizing ProviderResult TypeResult StatusCoAdventHealth Lake Mary ERAB BLOOD ORDERABLESFinal Result * Comprehensive metabolic panel (09/03/2025 12:05 PM EST) Only the most recent of9 resultswithin the time period is included. ComponentValueRef RangeTest MethodAnalysis TimePerformed AtPathologist Signature External Albumin2.8External Alt Zhhm09Jzqlogul Anion Gap10.7External Ast15 External Blood Urea Nitrogen Bun23.0External Calcium Ca8.9External Hsqmyrsk852 External Co2 / Carbon Smnyhhu04.3External Creatinine0.46External Gfr Amer>60External Gfr Non Amer>60External Alkaline Druhaetujhd10Uyezanpc Glucose Fasting Or Random (Fbs)118External Potassium K5.0External Sodium Na137 Total Bilirubin0.5External Total Protein6.2BUN/Creatinine Ratio50.1Wtnchyne1.4 A/G Ratio0.8Specimen (Source)Anatomical Location / LateralityCollection Method / VolumeCollection TimeReceived TimeBloodVenous blood / Ilfbrks8409/03/2025 12:05 PM EST Narrative Authorizing ProviderResult TypeResult StatusCoAtrium Health University City PALAB BLOOD ORDERABLESFinal Result * T4, free (08/31/2025 8:07 AM EST)Specimen (Source)Anatomical Location / LateralityCollection Method / VolumeCollection TimeReceived TimeBloodVenous blood / Unknown Narrative Authorizing ProviderResult TypeResult StatusCourtblane MADRIGALAB BLOOD ORDERABLESFinal Result * CBC AUTO DIFF [facility] (08/31/2025 8:00 AM EST) Only the most recent of2 resultswithin the time period is included. Narrative Authorizing ProviderResult TypeResult StatusNot In System Ref ProvLAB BLOOD ORDERABLESFinal Result * Creatinine includes GFR, serum (08/30/2025)ComponentValueRef RangeTest Method Analysis TimePerformed AtPathologist SignatureExternal Creatinine0.39LSpecimen (Source)Anatomical Location / LateralityCollection Method / VolumeCollection TimeReceived TimeBloodVenous blood / Kfjbebl9108/30/2025 Narrative Authorizing ProviderResult TypeResult StatusRocio PASCUAL BLOOD ORDERABLES Final Result * PET CT skull to thigh (08/27/2025 4:26 PM EST)Anatomical RegionLaterality ModalityNuc MedN/APositron Emission Tomography (PET)Specimen (Source) Anatomical Location / LateralityCollection Method / VolumeCollection Time Received Time08/27/2025 4:26 PM EST Narrative Authorizing ProviderResult TypeResult Yoly Alexander MDG PET ORDERABLES Final Result * (ABNORMAL) Basic Metabolic Panel (08/16/2025 3:52 PM EST)ComponentValueRef RangeTest MethodAnalysis TimePerformed AtPathologist VqqxpxmbkHRSCWE303810 - 146 mmol/L110/16/2024 4:17 PM ESTPROMEDIKAISER FOUNDATION HOSPITALPOTASSIUM 2.6(LL)3.5 - 5.0 mmol/L110/16/2024 4:17 PM ESTPROMEDIKAISER FOUNDATION HOSPITALCHLORIDE10398 - 109 mmol/L110/16/2024 4:17 PM ESTPROMEDIKAISER FOUNDATION HOSPITALCARBON ZMKWMJB7769 - 32 mmol/L110/16/2024 4:17 PM ESTPROMEDIKAISER FOUNDATION HOSPITALANION YNY138 - 15 mmol/L110/16/2024 4:17 PM EST [facility]ITALBLO[facility] UREA UEGOPFMH701 - 27 mg/dL08/16/2025 4:17 PM ESTCLEVELAND CLINIC FAIRVIEW HOSPITALCREATININE0.700.40 - 1.00 mg/dL 08/16/2025 4:17 PM [facility]ITALComment:METHOD TRACEABLE TO IDMS KBDEXGWOHYBHFKS205(H)65 - 99 mg/dL08/16/2025 4:17 PM EST [facility] HOSPITALCALCIUM8.58.5 - 10.5 mg/dL08/16/2025 4:17 PM ESTCLEVELAND CLINIC FAIRVIEW HOSPITALEGFR Non-Race Dependent>90>=60 ml/min/1.73sq.m110/16/2024 4:17 PM [facility] Comment: Reported eGFR is based on the CKD-EPI 2020 equation that does not use a race coefficient. Specimen (Source)Anatomical Location / LateralityCollection Method / Volume Collection TimeReceived TimeBloodVenous blood / UnknownVenipuncture / Unknown 08/16/2025 3:52 PM EST08/16/2025 3:52 PM EST Narrative Authorizing ProviderResult TypeResult StatusDaapollo Angulo MDLAB BLOOD ORDERABLESFinal ResultPerforming OrganizationAddressCity/State/ZIP CodePhone Number [facility] [address] * Crossmatch RBC:Number of Units: 2 (08/11/2025 12:37 AM EST) Only the most recent of3 resultswithin the time period is included. ComponentValueRef RangeTest MethodAnalysis TimePerformed AtPathologist Signature Blood component [id number] BANK - WELLSKYUnit [id number] BANK - WELLSKYUnit ABOOBLOOD BANK - WELLSKYUnit RHPOSBLOOD BANK - WELLSKY CrossmatchCompatibleBLOOD BANK - WELLSKYStatus of unitTRANSFUSEDBLOOD BANK - WELLSKYExpiration [id number] BANK - WELLSKYBB Type Huaxswf2790YHYFH BANK - WELLSKYSpecimen (Source)Anatomical Location / LateralityCollection Method / VolumeCollection TimeReceived TimeBloodVenous blood / Phbunwl0208/11/2025 12:37 AM EST08/04/2025 5:47 AM EST Narrative Authorizing ProviderResult TypeResult StatusKassidnolan Still MDBLOOD BANK PRODUCT ORDERABLESEdited Result - FinalPerforming OrganizationAddSaint John Vianney Hospitalty/State/ZIP Code Phone Number [facility] - [place] * Type and screen(includes indirect grady) (08/08/2025 5:57 AM EST) Only the most recent of2 resultswithin the time period is included. ComponentValueRef RangeTest MethodAnalysis TimePerformed AtPathologist Signature ABOO110/08/2024 7:52 AM ESTTTH BB - MMCPHVWBDUlveglgc26/12/2025 7:52 AM ESTTTH BB - WELLSKYAntibody UirlunWzfzzzho68/12/2025 7:52 AM ESTTT BB - WELLSKYSpecimen (Source)Anatomical Location / LateralityCollection Method / VolumeCollection TimeReceived TimeBloodVenous blood / UnknownVenipuncture / Hvdwyrn1008/08/2025 5:57 AM EST08/08/2025 6:54 AM EST Narrative Authorizing ProviderResult TypeResult StatusAleia Monica Alexander MDBLOOD BANK TEST ORDERABLESEdited Result - FinalPerforming OrganizationAddressty/State/ZIP Code Phone Number [facility] - [place] [address] [place] [address], * Surgical Pathology (08/07/2025 3:42 PM EST) Only the most recent of2 resultswithin the time period is included. ComponentValueRef RangeTest MethodAnalysis TimePerformed AtPathologist Signature Case ReportSurgical Pathology Report ? Case: [id number] ? Authorizing Provider: ??Dennis Monson MD ?Collected: ? 08/07/2025 1542 ? Ordering Location: ? [facility] ??Received: ?08/07/2025 1647 ? - Surgery ? Pathologist: ? Darryl Alcantara MD ? Specimens: ?? 1) - Uterus, Fallopian Tube, Ovary, UTERUS, CERVIX, BILATERAL TUBES AND OVARIES ? 2) - Pelvis, LEFT POSTERIOR PELVIS BIOPSY ? 09/11/2025 3:45 PM [facility] LABORATORYFinal Diagnosis1. Uterus, fallopian tubes and ovaries, hysterectomy and bilateral salpingo-oophorectomy: ENDOMETRIOID ADENOCARCINOMA of endometrium, grade 2, with deep myometrial invasion. Carcinoma invades lower uterine segment stroma. Positive cervical stroma, uterine serosa (implants), bilateral mesosalpinx and left fallopian tube. Focal lymphovascular invasion. Endometriosis of right fallopian tube serosa. Negative ovaries. Negative parametrial/paracervical margins. 2. Left posterior pelvis, biopsy: Metastatic carcinoma.09/11/2025 3:45 PM [facility] at 1447 ESTAddendum 3 Results of [employer] Tumor Report dated 09/08/2025 are received from [employer], [place], [place]. Please see the complete report from [employer] (scanned on 09/11/2025).09/11/2025 3:45 PM [facility] LABORATORYAddendum electronically signed by Darryl Alcantara MD on 09/11/2025 at 1545 ESTAddendum 2MMR was repeated on the present specimen and shows loss of MLH1 and PMS2 with intact MSH2 and MSH6.The tissue block will be sent for MLH1 hypermethylation testing.09/11/2025 3:45 PM [facility] LABORATORYAddendum electronically signed by Darryl Alcantara MD on 08/31/2025 at 0951 ESTAddendumREQUEST FOR CARIS09/11/2025 3:45 PM [facility] LABORATORYAddendum electronically signed by Darryl Alcantara MD on 08/31/2025 at 0948 ESTGross Description1. Received in formalin labeled ANDERSON, [...] patient: 1542 Time specimen placed in formalin: 154 Cold ischemic time: Less than 1 minute Total fixation time: 27 hours (18,ns,[id number], m8.1) . 2. Received in formalin labeled ANDERSON, left posterior pelvis biopsy is pink-lambert feathery and friable soft tissue admixed with hemorrhagic material, 2.5 x 2.5 x 1.2 cm in aggregate. The specimen is submitted entirely in cassettes A- C. (3,ns,[id number], m8.1) 09/11/2025 3:45 PM [facility] LABORATORYSynoptic ChecklistENDOMETRIUM ENDOMETRIUM - All Specimens [facility] 8 - Protocol posted: 09/06/2024 SPECIMEN ?? [...] ?pN not assigned (no nodes submitted or found)09/11/2025 3:45 PM [facility] LABORATORYEmbedded Qlpljv8009/11/2025 3:45 PM [facility] LABORATORYSpecimen (Source)Anatomical Location / LateralityCollection Method / VolumeCollection TimeReceived TimeTissue (Uterus, Fallopian Tube, Ovary)08/07/2025 3:42 PM EST08/07/2025 4:47 PM ESTComment:Pre-op diagnosis: ENDOMETRIAL CANCERTissue specimen (specimen)Pelvic region / Jkmukgj1608/07/2025 3:43 PM EST08/07/2025 4:47 PM ESTComment:Pre-op diagnosis: ENDOMETRIAL CANCER Narrative Authorizing ProviderResult TypeResult StatusDennis Monson MDPATHOLOGY/CYTOLOGY ORDERABLESEdited Result - FinalPerforming OrganizationAddressCity/State/ZIP Code Phone Number [facility] [address] [place] [address], * Transfuse RBC:1 Unit (08/07/2025 2:56 PM EST) Only the most recent of3 resultswithin the time period is included. Narrative Authorizing ProviderResult TypeResult StatusAleia Monica Alexander MDBLOOD TRANSFUSION ORDERABLESFinal Result * Cytology non-gynecologic (08/07/2025 2:44 PM EST)ComponentValueRef RangeTest MethodAnalysis TimePerformed AtPathologist SignatureCase ReportMedical Cytology Report ? Case: [id number] ? Authorizing Provider: ??Dennis Monson MD ?Collected: ? 08/07/2025 1444 ? Ordering Location: ? [facility] ??Received: ?08/07/2025 1501 ? - Surgery ? Pathologist: ? Darryl Alcantara MD ? Specimen: ?Pelvis, Pelvis fluid ? 08/14/2025 2:58 PM [facility] LABORATORYFinal DiagnosisPelvic fluid: Positive for Carcinoma, rare cells.08/14/2025 2:58 PM [facility] at 1458 ESTGross DescriptionReceived was 20ml of red fluid unfixed, labeled as Anderson, pelvis . CytoLyt added in lab. Specimen placed in formalin at 17:00 and had a total fixation time of 8 hours. 08/14/2025 2:58 PM [facility] LABORATORYEmbedded Images 08/14/2025 2:58 PM [facility] LABORATORYSpecimen (Source) Anatomical Location / LateralityCollection Method / VolumeCollection Time Received TimeFluidPelvic region / Mxunxfr4808/07/2025 2:44 PM EST08/07/2025 3:01 PM ESTComment:Pre-op diagnosis: ENDOMETRIAL CANCER Narrative Authorizing ProviderResult TypeResult StatusDennis Monson MDPATHOLOGY/CYTOLOGY ORDERABLESFinal ResultPerforming OrganizationAddressCity/State/ZIP CodePhone Number [facility] [address] [place] [address], * IA AN ELECTIVE ENDOTRACHEAL AIRWAY (08/07/2025 1:44 PM EST) Narrative Evelin Jackson SRNA - 08/07/2025 1:44 PM EST EDIN Inman 08/07/2025 2:13 PM Airway Patient location during procedure: OR Urgency: Elective Date/Time: 08/07/2025 1:44 PM Airway not difficult IV In Situ: Peripheral General Information and Staff Service Provider: Mahendra Rico MD AUTOMOTIVE TEACHER: Karime Mann APRN-AUTOMOTIVE TEACHER Student: EDIN Inman Placed by: ??EDIN Inman [...] MD on 08/06/2025 7:20 AM Procedure Note Tiomthy Green MD - 08/06/2025 HISTORY: Pelvic mass [...] 08/06/2025 7:20 AM Authorizing ProviderResult TypeResult StatusAlexandria [facility] ORDERABLESFinal Result * IA AN ELECTIVE ENDOTRACHEAL AIRWAY (08/04/2025 9:48 AM EST) Leonor Cornell APRN-CRNA - 08/04/2025 9:48 AM EST BELLE Ferguson 08/04/2025 10:02 AM Airway Patient location during procedure: OR Urgency: Elective Date/Time: 08/04/2025 9:48 AM Airway not difficult IV In Situ: Peripheral General Information and Staff Service Provider: Franklin Ramos MD AUTOMOTIVE TEACHER: BELLE Ferguson Placed by: ??BELLE Ferguson Patient [...] AM EST)ComponentValueRef RangeTest Method Analysis TimePerformed AtPathologist JppetyukhKNPQ55(L)26 - 37 sec08/04/2025 6:07 AM [facility] LABORATORYSpecimen (Source)Anatomical Location / LateralityCollection Method / VolumeCollection TimeReceived Time BloodVenous blood / UnknownVenipuncture / Ymcuuaj1308/04/2025 5:30 AM EST 08/04/2025 5:42 AM EST Narrative Authorizing ProviderResult TypeResult StatusMicssivelisse Still [facility] BLOOD ORDERABLESFinal ResultPerforming OrganizationAddressCity/State/ZIP CodePhone Number [facility] [address] [place] [address], * Protime & INR (08/04/2025 5:30 AM EST)ComponentValueRef RangeTest Method Analysis TimePerformed AtPathologist SxhontblpCDSEKUT99.89.8 - 13.2 sec 08/04/2025 6:07 AM [facility] LABORATORYINR1.00.9 - 1.2 08/04/2025 6:07 AM [facility] LABORATORYSpecimen (Source) Anatomical Location / LateralityCollection Method / VolumeCollection Time Received TimeBloodVenous blood / UnknownVenipuncture / Ywzkwqx5008/04/2025 5:30 AM EST08/04/2025 5:42 AM EST Narrative Authorizing ProviderResult TypeResult StatusKassivelisse Still [facility] BLOOD ORDERABLESFinal ResultPerforming OrganizationAddressCity/State/ZIP CodePhone Number [facility] [address] [place] [address], * Fibrinogen (08/04/2025 5:30 AM EST)ComponentValueRef RangeTest MethodAnalysis TimePerformed AtPathologist GcnayksbaBXJJDFSBPD352054 - 480 mg/dL08/04/2025 6:07 AM [facility] LABORATORYSpecimen (Source)Anatomical Location / LateralityCollection Method / VolumeCollection TimeReceived Time BloodVenous blood / UnknownVenipuncture / Aasjerq4908/04/2025 5:30 AM EST 08/04/2025 5:42 AM EST Narrative Authorizing ProviderResult TypeResult StatusKassidy Cheko MDLAB BLOOD ORDERABLESFinal ResultPerforming OrganizationAddressCity/State/ZIP CodePhone Number [facility] [address] [place] [address], * CT abdomen and pelvis with contrast [...] US ORDERABLESFinal Result from Last 3 Months Insurance Advance Directives * Full Code (Latest Code Status on File) Date ActivatedDate BfuzdeezxxrTsyjfddy13/8/2025 3:38 AM08/09/2025 7:55 PM Care Teams Team MemberRelationshipSpecialtyStart DateEnd Date Bin Sidhu MD [address] [place] [address] PCP - GeneralFamily Dhxarvuz70/9/25
--- OUTSIDE RECORDS SUMMARY | 2025-09-18 08:49 | XMS_ITS | Encounter Summary ---
Author Organization [facility] Address [id number] [address] [place] [address] Care Team Providers Care Call Center Rn Name Role Phone Bin Sidhu MD Primary Care Provider [phone] Encounter Details DateTypeDepartmentCare Team (Latest Contact Info)Cxboelhoucb11/15/2025Travel Social History Tobacco UseTypesPacks/DayYears UsedDateSmoking Tobacco: NeverSmokeless Tobacco: NeverAlcohol UseStandard Drinks/WeekCommentsNever0 (1 standard drink = 0.6 oz pure alcohol)PHQ-2AnswerDate RecordedTotal Bqgwj05410/04/2024UDIT-CAnswerDate RecordedQ1: How often do you have a [...] InformationValueDate RecordedSex Assigned at BirthNot on fileLegal IafVnabhs43/08/2025 12:05 AM ESTGender IdentityNot on fileSexual OrientationNot on filedocumented as of this encounter Plan of Treatment DateTypeDepartmentCare Team (Latest Contact Info)Vgcusloemme30/26/2025 8:00 AM ESTInfusion [facility] [address] [place] [phone] 10/16/2025 9:00 AM ESTOffice Visit [facility] [address] [place] [address] [phone] Melinda Coffey PA [address] [place] [address] 10/16/2025 9:30 AM ESTInfusion [facility] - Medical Oncology [address] [place] [address] [phone] documented as of this encounter Goals GoalPatient [...] MemberRelationshipSpecialtyStart DateEnd Date Bin Sidhu MD [address] [id number] PCP - GeneralFamily Odyfobhd97/9/25documented as of this encounter
[2025-09-18 08:54] LABS: Hematocrit 30.5 % (36.0-48.0); Hemoglobin 9.3 g/dL (12.0-16.0); Immature Granulocytes Abs Auto 0.02 10^3/uL (0.00-0.03); Immature Granulocytes Pct Auto 0.3 % (0.0-0.5); Lymphocytes Absolute Auto 2.5 10^3/uL (1.2-3.8); Mean Corpuscular HGB Conc 30.5 g/dL (29.9-35.2); Mean Corpuscular Hemoglobin 27.1 pg (26.7-34.0); Mean Corpuscular Volume 88.9 fL (81.0-99.0); Platelet Count 353 10^3/uL (150-450); Red Blood Count 3.43 10^6/uL (4.20-5.40); White Blood Count 6.3 10^3/uL (4.0-11.0)
[2025-09-18 09:10] LABS: Alanine Aminotransferase 18 U/L (14-59); Albumin Globulin Ratio 0.7; Albumin Level 3.0 g/dL (3.4-5.0); Alkaline Phosphatase 80 U/L (46-116); Anion Gap 14.2; Aspartate Amino Transferase 14 U/L (15-37); Blood Urea Nitrogen 18.0 mg/dL (7.0-18.0); Calcium 9.2 mg/dL (8.5-10.1); Carbon Dioxide 26.8 mmol/L (21.0-32.0); Chloride 106 mmol/L (98-107); Estimated GFR (African America >60 (>=60 mL/min/1.73m^2); Estimated GFR (Non-African Ame >60 (>=60 mL/min/1.73m^2); Globulin 4.3 g/dL; Glucose 123 mg/dL (74-106); Potassium 3.0 mmol/L (3.5-5.1); Sodium 144 mmol/L (136-145); Total Protein 7.3 g/dL (6.4-8.2)
[2025-09-18 09:18] LABS: Magnesium 1.9 mg/dL (1.8-2.4); Thyroid Stimulating Hormone 3.676 uIU/mL (0.358-3.740)
== END 2025-09-18 08:45 | disposition home or self-care (01) ==
LOC: LAB 08:44
DX: C55 Malignant neoplasm of uterus, part unspecified (principal); Z85.42 Personal history of malignant neoplasm of other parts of uterus
CPT/HCPCS: 36415; 80053; 83735; 84439; 84443; 85025